=== PATIENT | female | born 1975 | race Caucasian/White ===

== ENCOUNTER 2023-10-26 11:00 | Emergency (ER) | payer BC, SELFPAY ==
[2023-10-26] VITALS (14 sets, daily range): BP systolic 114–136; BP diastolic 69–89; PULSE 77–104; TEMP 36.5; O2SAT 95–99; BMI 20.5
--- NOTE | 2023-10-26 11:32 | ECG_ITS ---
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
--- NOTE | 2023-10-26 11:35 | ED.GENADUL1 ---
HPI HPI - General Adult General Chief complaint: Head Injury Stated complaint: FALL Time Seen by Provider: 10/26/23 11:10 Source: patient Mode of arrival: walk-in Limitations: no limitations History of Present Illness HPI narrative: Patient woke the morning of 10/24/23 in herbed and noted blood on the pillow. When she got the bathroom she saw a laceration to the left side of the face lateral to the left eye. She had pain and swelling in that area as well. She does not know what happened. She has been feeling weak and shaky for the last few days. She is supposed to be taking metformin daily - it was prescribed 2 weeks ago - but she has yet to pick it up from the pharmacy. She apparently has been trying to manage her diabetes by intermittently fasting and has apparently lost almost 100 pounds in the last 65 months just by not eating . She denied any urinary or bowel symptoms. no recent illness. She denied using any alcohol or drugs 10/21 or10/22 - she does not know how she injured her face. She said that a stretch press operator prescribed a pill and a spanish for a fungal infection of the right thumb - she said that is why she did not take the metformin - I didn't want it to interfere with the fungal medication. Related Data Home Medications ?Medication ?Instructions ?Recorded ?Confirmed levothyroxine 50 mcg tablet 75 mcg PO DAILY 10/26/23 10/26/23 Previous Rx's ?Medication ?Instructions ?Recorded metformin 500 mg tablet 500 mg PO BID #60 tabs 10/26/23 Allergies Allergy/AdvReac Type Severity Reaction Status Date / Time No Known Drug Allergies Allergy Verified 10/26/23 11:07 Opioid HPI Opioid Management Most Recent Opioid Data: No Data to Display Exam Narrative Exam Narrative: Nurses note and vital signs reviewed and patient is not hypoxic. afebrile General: The patient appears frail but is in no apparent distress. Patient is resting comfortably on cart. GCS = 15. Skin: Warm, dry, no pallor noted. Head: 1cm curvilinear laceration to the left face lateral to the left eye. there is some associated facial swelling and both soft tissue and bony tenderness from the left lower forehead to the left cheek and left orbit. Remainder of the face and head are normocephalic, atraumatic Neck: Supple, trachea mid-line, no tenderness, no lymphadenopathy. Full ROM and no cervical spinal tenderness or meningitidis. The patient has no step-offs or crepitus noted Eyes: PERRLA, EOMI ENT: TM's clear, no hemotympanum detected, no blood in posterior oropharynx Cardiovascular: Regular Rate and Rhythm Respiratory: Patient is in no distress, no accessory muscle use, lungs are clear to auscultation, no wheezing, rales or rhonchi Chest Wall: no tenderness, no flail chest, contusion, abrasion, or signs of trauma. Back: No thoracic vertebral or lumbar vertebral tenderness to palpation. Negative straight leg raise bilaterally. No ecchymosis, abrasions, lacerations noted. Musculoskeletal: no sign of long bone fracture, no tenderness, no swelling. Pulses at femoral, DP, PT, and popiteal were 2+ bilaterally. Moves all four extremities in all modalities with 5/5 strength. GI: Normal bowel sounds, no tenderness to palpation, no masses appreciated. No rebound, guarding, or rigidity noted. 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 Psychiatric: Cooperative Constitutional Vital Signs, click to edit/add: Last Vital Signs Temp 97.7 F 10/26/23 11:07 Pulse 80 10/26/23 13:20 Resp 17 10/26/23 13:20 BP 119/69 10/26/23 13:20 Pulse Ox 97 10/26/23 12:30 O2 Del Method Room Air 10/26/23 11:07 Course Vital Signs Vital signs: Vital Signs Temperature 97.7 F 10/26/23 11:07 Pulse Rate 104 H 10/26/23 11:07 Respiratory Rate 16 10/26/23 11:07 Blood Pressure 136/89 10/26/23 11:07 Pulse Oximetry 99 10/26/23 11:07 Oxygen Delivery Method Room Air 10/26/23 11:07 Temperature 97.7 F 10/26/23 11:07 Pulse Rate 80 10/26/23 13:20 Respiratory Rate 17 10/26/23 13:20 Blood Pressure 119/69 10/26/23 13:20 Pulse Oximetry 97 10/26/23 12:30 Oxygen Delivery Method Room Air 10/26/23 11:07 Medical Decision Making MDM Narrative Medical decision making narrative: accu check glucose was over 600. Patient was placed on director of cardiac rehabilitation and EKG obtained. Blood drawn and sent for evaluation. The facial laceration is over 48 hours old - too late for suture repair. She was given 2Liters NS IVF while we awaited the results of her testing. Normal CBC. UA with > 1000 glc, 80 ket, otherwise negative. CMP revealed slightly low Na 131,decreased Chloride 91, decreased CO2 20, Normal BUN and Cr. Glucose elevated at 673. Patient has never received SQ insulin so she was given 10units SQ to start. CT head and facial bones did not reveal ICH or facial fracture but she does have a possible carotid mass, so dedicated CT soft tissue neck obtained with IVC to further evaluate. It identified an enlarged thyroid - patient said that she was already aware of that and her PCP had talked to her about scheduling an out-patient US. I gave the patient a copy of her CT ST Neck rad report. Patient and I discussed her elevated glucose, the remainder of her test results, discussed the importance of taking medicine for her diabetes - her prescription for metformin never got filled so I sent a new prescription. Her glucose decreased from 673 to 511 after receiving the 10 units of regular insulin SQ. She received another 15 units of regular insulin SQ before being discharged home. She said that she does not plan to do intermittent fasting in the near future. PCP follow up recommended. ED nurse gave the patient information regarding diabetic diet and care. Lab Data Lab results reviewed: Yes I reviewed the patient's lab results Labs: Lab Results 10/26/23 10/26/23 10/26/23 Range/Units 11:30 11:35 13:23 WBC 5.7 (4.0-11.0) 10^3/uL RBC 4.63 (4.20-5.40) 10^6/uL Hgb 14.0 (12.0-16.0) g/dL Hct 41.8 (36.0-48.0) % MCV 90.3 (81.0-99.0) fL MCH 30.2 (26.7-34.0) pg MCHC 33.5 (29.9-35.2) g/dL RDW 11.9 (11.0-15.0) % Plt Count 254 (150-450) 10^3/uL MPV 10.5 (9.5-13.5) fL Neut % (Auto) 52.1 (43.0-75.0) % Lymph % (Auto) 36.0 (20.5-60.0) % [place] % (Auto) 7.7 (1.7-12.0) % Eos % (Auto) 3.5 (0.9-7.0) % Baso % (Auto) 0.5 (0.2-2.0) % Neut # (Auto) 3.0 (1.4-6.5) 10^3/uL Lymph # (Auto) 2.1 (1.2-3.8) 10^3/uL [place] # (Auto) 0.4 (0.3-0.8) 10^3/uL Eos # (Auto) 0.2 (0.0-0.7) 10^3/uL Baso # (Auto) 0.0 (0.0-0.1) 10^3/uL Abs Immat Gran (auto) 0.01 (0.00-0.03) 10^3/uL Imm/Tot Granulo (auto) 0.2 (0.0-0.5) % Sodium 131 L (136-145) mmol/L Potassium 4.3 (3.5-5.1) mmol/L Chloride 91 L (98-107) mmol/L Carbon Dioxide 20.2 L (21.0-32.0) mmol/L Anion Gap 24.1 BUN 8.0 (7.0-18.0) mg/dL Creatinine 0.73 (0.55-1.02) mg/dL Est GFR ( Amer) >60 (>=60) Est GFR (Non-Af Amer) >60 (>=60) BUN/Creatinine Ratio 11.0 Glucose 673 H* (74-106) mg/dL Lactate 1.0 (0.4-2.0) mmol/L Calcium 9.3 (8.5-10.1) mg/dL Magnesium 1.9 (1.8-2.4) mg/dL Total Bilirubin 0.4 (0.2-1.0) mg/dL AST 10 L (15-37) U/L ALT 10 L (14-59) U/L Alkaline Phosphatase 115 (46-116) U/L Total Protein 6.8 (6.4-8.2) g/dL Albumin 3.0 L (3.4-5.0) g/dL Globulin 3.8 g/dL Albumin/Globulin Ratio 0.8 Urine Color Lt. yellow (YELLOW) Urine Clarity Clear (CLEAR) Urine pH 5.5 (5.0-9.0) Ur Specific [place] 1.010 (1.005-1.025) Urine Protein Negative (NEG/TRACE) mg/dL Urine Glucose (UA) >=1000 A (NEGATIVE) mg/dL Urine Ketones >=80 A (NEGATIVE) mg/dL Urine Occult Blood Negative (NEGATIVE) Urine Nitrite Negative (NEGATIVE) Urine Bilirubin Negative (NEGATIVE) Urine Urobilinogen 0.2 (0.2-1.0) EU/dL Ur Leukocyte Esterase Negative (NEGATIVE) Acetone, Qual Small A (NEGATIVE) POC Glucose 511 H* (74-106) mg/dL Imaging Data ct head, ct facial, ct soft tissue neck: Radiologist's impression: ITS Impressions Facial Bones CT 10/26/23 12:11 IMPRESSION: 1. No acute facial traumatic abnormality. 2. Indeterminate partially visualized soft tissue fullness/possible mass in the right carotid space with extension into the right prevertebral space. Neoplasm or gabby metastasis cannot be excluded. Dedicated CT soft tissue neck with IV contrast is recommended for further characterization. Electronically authenticated by: AUREA XIONG Date: 10/26/2023 12:[address] 10/26/23 12:11 IMPRESSION: No acute intracranial process. Electronically authenticated by: AUREA XIONG Date: 10/26/2023 12:[address] 10/26/23 13:12 IMPRESSION: 1. Markedly enlarged, heterogenous, and multinodular thyroid measures at least 9.6 x 4.5 x 7.8 cm. This corresponds with abnormality seen on CT facial bones earlier today. Thyroid parenchyma extends into the inferior right carotid space and both lobes extend posterior to the larynx into the prevertebral space. The inferior margin of the thyroid extends to the superior margin of the clavicular heads. There is mild narrowing of the right piriform sinus due to mass effect. Nonemergent dedicated thyroid ultrasound is recommended for further characterization. 2. No other extranodal soft tissue mass or abnormal enhancement in the neck. Electronically authenticated by: AUREA XIONG Date: 10/26/2023 13:32 ECG Data Attestation: I personally reviewed and interpreted this ECG as follows: Interpretation: EKG interpretation: Emergency Department physician interpretation. Normal sinus rhythm at 92bpm. Moderate right axis deviation, normal intervals and no ST segment elevation or depression. Discharge Plan Discharge Stand Alone Forms: Portal Instructions Chief Complaint: Head Injury Clinical Impression: Hyperglycemia due to type 2 diabetes mellitus, Laceration of face, Head injury Patient Disposition: Home, Self-Care Time of Disposition Decision: 13:45 Prescriptions / Home Meds: New metformin 500 mg tablet 500 mg PO BID Qty: 60 0RF No Action levothyroxine 50 mcg tablet 75 mcg PO DAILY Print Language: [place]guill[place] Instructions: Type 2 Diabetes in Adults: New Diagnosis (DC), Head Injury (ED), Laceration Without Closure (ED) Referrals: Physician,Non-Staff, MD [Primary Care Provider] - 1 week
[2023-10-26] MEDS: 0.9 % SODIUM CHLORIDE 1,000 ML 999 ML IV (11:43)
[2023-10-26 11:49] LABS: Basophils Percent Auto 0.5 % (0.2-2.0); Eosinophils Absolute Auto 0.2 10^3/uL (0.0-0.7); Eosinophils Percent Auto 3.5 % (0.9-7.0); Hematocrit 41.8 % (36.0-48.0); Immature Granulocytes Abs Auto 0.01 10^3/uL (0.00-0.03); Immature Granulocytes Pct Auto 0.2 % (0.0-0.5); Lymphocytes Absolute Auto 2.1 10^3/uL (1.2-3.8); Mean Corpuscular HGB Conc 33.5 g/dL (29.9-35.2); Mean Corpuscular Hemoglobin 30.2 pg (26.7-34.0); Mean Corpuscular Volume 90.3 fL (81.0-99.0); Mean Platelet Volume 10.5 fL (9.5-13.5); Monocytes Absolute Auto 0.4 10^3/uL (0.3-0.8); Monocytes Percent Auto 7.7 % (1.7-12.0); Neutrophils Percent Auto 52.1 % (43.0-75.0); Platelet Count 254 10^3/uL (150-450); Red Blood Count 4.63 10^6/uL (4.20-5.40); Red Cell Distribution Width 11.9 % (11.0-15.0); White Blood Count 5.7 10^3/uL (4.0-11.0)
[2023-10-26 11:50] LABS: Bilirubin Urine NEGATIVE (NEGATIVE); Blood Urine NEGATIVE (NEGATIVE); Clarity Urine CLEAR (CLEAR); Color Urine LT. YELLOW (YELLOW); Glucose Urine UA >=1000 mg/dL (NEGATIVE); Ketones Urine >=80 mg/dL (NEGATIVE); Leukocyte Esterase Urine NEGATIVE (NEGATIVE); Nitrite Urine NEGATIVE (NEGATIVE); Protein Urine NEGATIVE (NEG/TRACE); Urobilinogen Urine 0.2 EU/dL (0.2-1.0); pH Urine 5.5 (5.0-9.0)
[2023-10-26 12:03] LABS: Urine Microscopic Indicated NO
[2023-10-26 12:07] LABS: Alanine Aminotransferase 10 U/L (14-59); Albumin Globulin Ratio 0.8; Alkaline Phosphatase 115 U/L (46-116); Anion Gap 24.1; Aspartate Amino Transferase 10 U/L (15-37); Bilirubin Total 0.4 mg/dL (0.2-1.0); Calcium 9.3 mg/dL (8.5-10.1); Carbon Dioxide 20.2 mmol/L (21.0-32.0); Chloride 91 mmol/L (98-107); Estimated GFR (African America >60 (>=60); Estimated GFR (Non-African Ame >60 (>=60); Globulin 3.8 g/dL; Magnesium 1.9 mg/dL (1.8-2.4); Potassium 4.3 mmol/L (3.5-5.1); Sodium 131 mmol/L (136-145); Total Protein 6.8 g/dL (6.4-8.2)
[2023-10-26 12:11] LABS: Glucose 673 mg/dL (74-106)
--- NOTE | 2023-10-26 12:11 | CT_ITS ---
[address] [address] Patient Name: JUMA HIRSCH MRN: [id number] date: 1975 Sex: F Assigned Patient Location: ER Current Patient Location: ED[facility] Accession/Order Number: [id number] Exam Date: 10/26/2023 12:02 Report Date: 10/26/2023 12:38 At the request of: RAMIREZ CAMPBELL Procedure: CT head/brain wo con EXAM: CT head/brain wo con CLINICAL INDICATION: fall, head injury COMPARISON: CT head 09/23/2016. TECHNIQUE: Axial CT images of the brain were obtained without contrast. Coronal and sagittal reformats were obtained. Dose reduction techniques were achieved by using automated exposure control and/or adjustment of mA and/or kV according to patient size and/or use of iterative reconstruction technique. FINDINGS: No intracranial hemorrhage, extra-axial fluid collection, hydrocephalus, midline shift, or acute infarction. No other mass effect. Patent basal cisterns. No calvarial fracture. Normal soft tissues. Paranasal sinuses and mastoid air cells are well-aerated. CT/CT head/brain wo con IMPRESSION: No acute intracranial process. Electronically authenticated by: AUREA XIONG Date: 10/26/2023 12:38
--- NOTE | 2023-10-26 12:11 | CT_ITS ---
[address] [address] Patient Name: JUMA HIRSCH MRN: [id number] date: 1975 Sex: F Assigned Patient Location: ER Current Patient Location: ER Accession/Order Number: [id number] Exam Date: 10/26/2023 12:02 Report Date: 10/26/2023 12:44 At the request of: RAMIREZ CAMPBELL Procedure: CT facial bones wo con EXAM: CT facial bones wo con CLINICAL INDICATION: fall, facial injury COMPARISON: None TECHNIQUE: Multiple unenhanced axial CT images were obtained of the facial bones in soft tissue and bone windows. Coronal, axial, and sagittal reformatted images were also provided in soft tissue and bone windows and submitted for interpretation. Dose reduction techniques were achieved by using automated exposure control and/or adjustment of mA and/or kV according to patient size and/or use of iterative reconstruction technique. FINDINGS: Soft Tissues: No soft tissue edema. Indeterminate partially visualized soft tissue fullness/possible mass in the right carotid space with extension into the right prevertebral space (seen on series 4 image 1). Osseous Orbits: No fracture, subluxation, or dislocation. Lamina Papyracea: Intact. Paranasal Sinuses: Mild right maxillary sinus mucosal thickening. Trace additional scattered paranasal sinus mucosal thickening. No air-fluid levels. Nasal Septum: Intact and deviated towards to the left. Nasal Bones: Intact. Maxilla: Intact. Mandible: Intact. Temporal Bones: Intact. Mastoid air cells are well aerated. Middle ear cavities are grossly clear. Temporomandibular Joints: No subluxation or dislocation bilaterally. Globes: Intact. Intraconal Space Contents: Orbital fat and ophthalmic arteries are unremarkable. Extraconal Space Contents: Fat is clean and symmetric. CT/CT facial bones wo con IMPRESSION: 1. No acute facial traumatic abnormality. 2. Indeterminate partially visualized soft tissue fullness/possible mass in the right carotid space with extension into the right prevertebral space. Neoplasm or gabby metastasis cannot be excluded. Dedicated CT soft tissue neck with IV contrast is recommended for further characterization. Electronically authenticated by: AUREA XIONG Date: 10/26/2023 12:44
[2023-10-26] MEDS: INSULIN REGULAR 300 UNITS/3 ML 10 UNIT SUBQ (12:16)
[2023-10-26] MEDS: 0.9 % SODIUM CHLORIDE 1,000 ML 1000 ML IV (12:19)
[2023-10-26 12:28] LABS: Acetone SMALL (NEGATIVE)
--- NOTE | 2023-10-26 13:12 | CT_ITS ---
[address] [address] Patient Name: JUMA HIRSCH MRN: [id number] date: 1975 Sex: F Assigned Patient Location: ER Current Patient Location: Accession/Order Number: [id number] Exam Date: 10/26/2023 13:05 Report Date: 10/26/2023 13:32 At the request of: RAMIREZ CAMPBELL Procedure: CT soft tissue neck w con EXAM: CT soft tissue neck w con CLINICAL INDICATION: right carotid mass COMPARISON: None TECHNIQUE: Standard enhanced CT of the neck following intravenous administration of 100 cc of Omnipaque 300. Axial sections with coronal and sagittal reformats were obtained. Dose reduction techniques were achieved by using automated exposure control and/or adjustment of mA and/or kV according to patient size and/or use of iterative reconstruction technique. FINDINGS: Lymph Nodes/Soft Tissues: No focal fluid collection or fat stranding. No enlarged or morphologically abnormal lymph nodes. Nasopharynx: Normal. Suprahyoid Neck: Oropharynx, oral cavity, parapharyngeal, and retropharyngeal spaces are clear and symmetric. Infrahyoid Neck: Larynx, hypopharynx, and supraglottic area are clear and symmetric. Vocal cords are symmetric. Parotid Glands: Normal. Submandibular Glands: Normal. Thyroid: Markedly enlarged and heterogenous thyroid measures at least 9.6 x 4.5 x 7.8 cm (CC by AP by TV). Thyroid parenchyma extends into the inferior right carotid space and both lobes extend posterior to the larynx into the prevertebral space. There are several ill-defined nodules with the largest measuring approximately 1.8 cm in the inferior left thyroid lobe. The inferior margin of the thyroid extends to the superior margin of the clavicular heads. Airway: Mass effect with narrowing of the right piriform sinus. Trachea is patent without stenosis. Orbits: Normal. Paranasal Sinuses: Mild right maxillary sinus mucosal thickening. Trace additional scattered paranasal sinus mucosal thickening. Mastoid Air Cells: Well-aerated. Skull Base: Normal. Thoracic Inlet: Visualized lung apices are clear. Vascular Structures: Symmetric and patent. Musculoskeletal: No acute osseous abnormality. Mild multilevel cervicothoracic spondylotic changes. CT/CT soft tissue neck w con IMPRESSION: 1. Markedly enlarged, heterogenous, and multinodular thyroid measures at least 9.6 x 4.5 x 7.8 cm. This corresponds with abnormality seen on CT facial bones earlier today. Thyroid parenchyma extends into the inferior right carotid space and both lobes extend posterior to the larynx into the prevertebral space. The inferior margin of the thyroid extends to the superior margin of the clavicular heads. There is mild narrowing of the right piriform sinus due to mass effect. Nonemergent dedicated thyroid ultrasound is recommended for further characterization. 2. No other extranodal soft tissue mass or abnormal enhancement in the neck. Electronically authenticated by: AUREA XIONG Date: 10/26/2023 13:32
[2023-10-26 13:24] LABS: Glucometer 511 mg/dL (74-106)
[2023-10-26] MEDS: INSULIN REGULAR 300 UNITS/3 ML 15 UNIT SUBQ (13:36)
== END 2023-10-26 14:19 | disposition home or self-care (01) ==
PROVIDERS: Emergency Provider Emergency Medicine
DX: E11.65 Type 2 diabetes mellitus with hyperglycemia (principal); S01.81XA Laceration without foreign body of other part of head, initial encounter; S09.90XA Unspecified injury of head, initial encounter; Z79.890 Hormone replacement therapy
CPT/HCPCS: 36415; 36416; 70450; 70486; 70491; 80053; 81003; 82009; 82948; 83605; 83735; 85025; 93005; 96360; 96361; 99285; Q9967

== ENCOUNTER 2024-10-09 19:19 | Observation (INO) | payer SELFPAY ==
[2024-10-09] VITALS (22 sets, daily range): BP systolic 99–132; BP diastolic 69–81; PULSE 75–107; TEMP 36.1; O2SAT 95–100; BMI 15.2
--- NOTE | 2024-10-09 19:54 | ECG_ITS ---
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 Measurements Intervals [place] Rate: 79 P: 81 [place]: 150 QRS: 90 QRSD: 92 T: 78 QT: 426 QTc: 461 Interpretive Statements 1100 Sinus rhythm 8304 Long QTc interval 9150 abnormal ECG Compared to ECG 10/26/2023 11:50:16 Right-axis deviation no longer present Electronically Signed On 10-10-2024 19:56:47 EDT by JAX VILLAVICENCIO M.D.
--- NOTE | 2024-10-09 19:59 | ED.GENADUL1 ---
Documented by User: MANJU Lemons 10/09/24 21:45 HPI HPI - General Adult General Chief complaint: Weakness Stated complaint: FALL Time Seen by Provider: 10/09/24 19:22 Source: patient Mode of arrival: walk-in History of Present Illness HPI narrative: Patient is a 49 year old female who presents to the emergency department for a variety of medical complaints this evening. She states that her primary concern is that she is very unsteady and shaky on her feet and has had falls over the last 3-4 weeks. She further complains of brain fog, confusion intermittently and loss of appetite. She denies any injury from falling and denies pain at this time. She has a history of diabetes and states she does not take any medications for her diabetes, she takes no prescription meds and does not have a doctor as she has no insurance. She denies fever, URI symptoms, chest pain or shortness of breath. She has been losing weight for over a year. She states she used to do extreme fasting to manage her diabetes but stopped over a year ago. She reports loss of appetite, although she is able to take fluids well and drinks electrolyte replacements like Powerade. She reports ongoing urinary incontinence. She has no abdominal pain, vomiting or diarrhea. Records from one year ago show the patient was sent for imaging of the neck due to an incidental find, she had a thyroid mass noted on imaging at that time, she has not followed up. Related Data Allergies Allergy/AdvReac Type Severity Reaction Status Date / Time No Known Drug Allergies Allergy Verified 10/09/24 19:33 Opioid HPI Opioid Management Most Recent Opioid Data: Ur Phencyclidine Scrn Negative (NEGATIVE) 10/09/24 20:02 10/09/24 PFSH PFSH Social History Little interest or pleasure in doing things: not at all Feeling down, depressed, or hopeless: not at all Exam Constitutional Vital Signs, click to edit/add: Last Vital Signs Temp 96.9 F L 10/09/24 19:24 Pulse 84 10/09/24 21:51 Resp 19 10/09/24 21:51 BP 108/79 10/09/24 21:51 Pulse Ox 100 10/09/24 21:51 O2 Del Method Room Air 10/09/24 19:24 Course Vital Signs Vital signs: Vital Signs Temperature 96.9 F L 10/09/24 19:24 Pulse Rate 91 H 10/09/24 19:24 Respiratory Rate 14 10/09/24 19:24 Pulse Oximetry 100 10/09/24 19:24 Oxygen Delivery Method Room Air 10/09/24 19:24 Temperature 96.9 F L 10/09/24 19:24 Pulse Rate 84 10/09/24 21:51 Respiratory Rate 19 10/09/24 21:51 Blood Pressure 108/79 10/09/24 21:51 Pulse Oximetry 100 10/09/24 21:51 Oxygen Delivery Method Room Air 10/09/24 19:24 Medical Decision Making MDM Narrative Medical decision making narrative: On arrival, patient had surveillance monitor, EKG and IV established. Labs, urine and drug testing were ordered. Patient has evidence of DKA with moderate acetone, ketones and glucose in urine and glucose 524. She was given 1L NS bolus and was also ordered to have an insulin drip at 0.05units/kg/hr. She is hemodynamically stable at this time. She was sent for CTs of head, neck, chest/abdomen and pelvis. While awaiting CT imaging, the patient stepped outside of the ER to have a cigarette, she did not ask permission and was made aware of hospital policy. A nicotine patch was ordered. 2144: Initiation of insulin drip and CT images are pending at this time. Anticipate admission on an insulin drip for DKA. Case is turned over to attending physician for reevaluation and disposition at this time. SHARED APC VISIT, PHYSICIAN ATTESTATION: [id number] I performed a substantive part of the MDM during the patient?s E/M visit. I personally evaluated and examined the patient. I personally made or approved the documented management plan and acknowledge its risk of complications. Medical Records Medical records reviewed: Yes I reviewed the patient's medical records Lab Data Lab results reviewed: Yes I reviewed the patient's lab results Labs: Lab Results 10/09/24 10/09/24 Range/Units 20:02 20:10 WBC 4.5 (4.0-11.0) 10^3/uL RBC 4.01 L (4.20-5.40) 10^6/uL Hgb 13.5 (12.0-16.0) g/dL Hct 37.9 (36.0-48.0) % MCV 94.5 (81.0-99.0) fL MCH 33.7 (26.7-34.0) pg MCHC 35.6 H (29.9-35.2) g/dL RDW 11.9 (11.0-15.0) % Plt Count 197 (150-450) 10^3/uL MPV 10.2 (9.5-13.5) fL Neut % (Auto) 61.4 (43.0-75.0) % Lymph % (Auto) 28.2 (20.5-60.0) % [place] % (Auto) 6.4 (1.7-12.0) % Eos % (Auto) 0.9 (0.9-7.0) % Baso % (Auto) 0.9 (0.2-2.0) % Neut # (Auto) 2.8 (1.4-6.5) 10^3/uL Lymph # (Auto) 1.3 (1.2-3.8) 10^3/uL [place] # (Auto) 0.3 (0.3-0.8) 10^3/uL Eos # (Auto) 0.0 (0.0-0.7) 10^3/uL Baso # (Auto) 0.0 (0.0-0.1) 10^3/uL Abs Immat Gran (auto) 0.10 H (0.00-0.03) 10^3/uL Imm/Tot Granulo (auto) 2.2 H (0.0-0.5) % PT 9.3 (9.0-11.6) sec INR <0.93 VBG pH 7.291 L (7.330-7.430) VBG pCO2 23.1 L (40.0-52.0) mmHg Sodium 126 L (136-145) mmol/L Potassium 3.5 (3.5-5.1) mmol/L Chloride 92 L (98-107) mmol/L Carbon Dioxide 10.7 L (21.0-32.0) mmol/L Anion Gap 26.8 BUN 9.0 (7.0-18.0) mg/dL Creatinine 0.68 (0.55-1.02) mg/dL Est GFR ( Amer) >60 (>=60 mL/min/1.73m^2) Est GFR (Non-Af Amer) >60 (>=60 mL/min/1.73m^2) BUN/Creatinine Ratio 13.2 Glucose 524 H* (74-106) mg/dL Lactate <0.3 L (0.4-2.0) mmol/L Calcium 8.6 (8.5-10.1) mg/dL Magnesium 1.9 (1.8-2.4) mg/dL Total Bilirubin 0.6 (0.2-1.0) mg/dL AST 8 L (15-37) U/L ALT 21 (14-59) U/L Alkaline Phosphatase 185 H (46-116) U/L Troponin I High Sens 5.9 (4.0-51.3) pg/mL NT-Pro-B Natriuret Pep 71.0 (<=900.0) pg/mL Total Protein 6.6 (6.4-8.2) g/dL Albumin 3.3 L (3.4-5.0) g/dL Globulin 3.3 g/dL Albumin/Globulin Ratio 1.0 TSH 3.556 (0.358-3.740) uIU/mL Urine Color Lt. yellow (YELLOW) Urine Clarity Clear (CLEAR) Urine pH 6.0 (5.0-9.0) Ur Specific [place] 1.020 (1.005-1.025) Urine Protein Negative (NEG/TRACE) mg/dL Urine Glucose (UA) >=1000 A (NEGATIVE) mg/dL Urine Ketones >=80 A (NEGATIVE) mg/dL Urine Occult Blood Negative (NEGATIVE) Urine Nitrite Negative (NEGATIVE) Urine Bilirubin Negative (NEGATIVE) Urine Urobilinogen 0.2 (0.2-1.0) EU/dL Ur Leukocyte Esterase Negative (NEGATIVE) Urine RBC None seen (0-2) #/HPF Urine WBC 0-2 A (NONE SEEN) #/HPF Ur Squamous Epith Cells Rare (NONE/RARE) #/LPF Urine Crystals None seen (None Seen) #/HPF Urine Bacteria None seen (NONE SEEN) #/HPF Urine Casts None seen (NONE SEEN) #/LPF Urine Mucus None seen (NONE SEEN) Urine Trichomonas Seen A (NONE SEEN) Ur Culture Indicated? No Urine Opiates Screen Negative (NEGATIVE) Ur Buprenorphine Scrn Negative (NEGATIVE) Ur Oxycodone Screen Negative (NEGATIVE) Urine Methadone Screen Negative (NEGATIVE) Ur Barbiturates Screen Negative (NEGATIVE) U Tricyclic Antidepress Negative (NEGATIVE) Ur Phencyclidine Scrn Negative (NEGATIVE) Ur Amphetamines Screen Negative (NEGATIVE) U Methamphetamines Scrn Negative (NEGATIVE) U Benzodiazepines Scrn Negative (NEGATIVE) Urine Cocaine Screen Negative (NEGATIVE) U Cannabinoids Screen Negative (NEGATIVE) Ethanol Quant <3 mg/dL Acetone, Qual Moderate A (NEGATIVE) Imaging Data CT scan - head: Attestation: I have reviewed the pertinent imaging results. Radiologist's impression: CT head, soft tissue neck, chest/abd/pelvis ECG Data Attestation: I personally reviewed and interpreted this ECG as follows: (Normal sinus rhythm at a rate of 79, no acute ST elevation or ectopy. EKG reviewed by attending physician) Discharge Plan Discharge Chief Complaint: Weakness Clinical Impression: DKA (diabetic ketoacidosis), Acute hyperglycemia, Unsteady gait, Thyroid goiter Patient Disposition: Admitted as Observation Documented by User: Mitchel Pimentel MD 10/09/24 22:52 HPI HPI - General Adult General Chief complaint: Weakness Stated complaint: FALL Time Seen by Provider: 10/09/24 19:22 History of Present Illness HPI narrative: Patient is a 49 year old female who presents to the emergency department for a variety of medical complaints this evening. She states that her primary concern is that she is very unsteady and shaky on her feet and has had falls over the last 3-4 weeks. She further complains of brain fog, confusion intermittently and loss of appetite. She denies any injury from falling and denies pain at this time. She has a history of diabetes and states she does not take any medications for her diabetes, she takes no prescription meds and does not have a doctor as she has no insurance. She denies fever, URI symptoms, chest pain or shortness of breath. She has been losing weight for over a year. She states she used to do extreme fasting to manage her diabetes but stopped over a year ago. She reports loss of appetite, although she is able to take fluids well and drinks electrolyte replacements like Powerade. She reports ongoing urinary incontinence. She has no abdominal pain, vomiting or diarrhea. Records from one year ago show the patient was sent for imaging of the neck due to an incidental find, she had a thyroid mass noted on imaging at that time, she has not followed up. CT studies returned and patient found to have a thyroid goiter. Discussed with the hospitalist and patient admitted to the ICU on insulin drip Related Data Allergies Allergy/AdvReac Type Severity Reaction Status Date / Time No Known Drug Allergies Allergy Verified 10/09/24 19:33 Opioid HPI Opioid Management Most Recent Opioid Data: Ur Phencyclidine Scrn Negative (NEGATIVE) 10/09/24 20:02 10/09/24 PFSH PFSH Social History Little interest or pleasure in doing things: not at all Feeling down, depressed, or hopeless: not at all Exam Constitutional Vital Signs, click to edit/add: Last Vital Signs Temp 96.9 F L 10/09/24 19:24 Pulse 84 10/09/24 21:51 Resp 19 10/09/24 21:51 BP 108/79 10/09/24 21:51 Pulse Ox 100 10/09/24 21:51 O2 Del Method Room Air 10/09/24 19:24 Course Vital Signs Vital signs: Vital Signs Temperature 96.9 F L 10/09/24 19:24 Pulse Rate 91 H 10/09/24 19:24 Respiratory Rate 14 10/09/24 19:24 Pulse Oximetry 100 10/09/24 19:24 Oxygen Delivery Method Room Air 10/09/24 19:24 Temperature 96.9 F L 10/09/24 19:24 Pulse Rate 84 10/09/24 21:51 Respiratory Rate 19 10/09/24 21:51 Blood Pressure 108/79 10/09/24 21:51 Pulse Oximetry 100 10/09/24 21:51 Oxygen Delivery Method Room Air 10/09/24 19:24 Medical Decision Making Lab Data Labs: Lab Results 10/09/24 10/09/24 Range/Units 20:02 20:10 WBC 4.5 (4.0-11.0) 10^3/uL RBC 4.01 L (4.20-5.40) 10^6/uL Hgb 13.5 (12.0-16.0) g/dL Hct 37.9 (36.0-48.0) % MCV 94.5 (81.0-99.0) fL MCH 33.7 (26.7-34.0) pg MCHC 35.6 H (29.9-35.2) g/dL RDW 11.9 (11.0-15.0) % Plt Count 197 (150-450) 10^3/uL MPV 10.2 (9.5-13.5) fL Neut % (Auto) 61.4 (43.0-75.0) % Lymph % (Auto) 28.2 (20.5-60.0) % [place] % (Auto) 6.4 (1.7-12.0) % Eos % (Auto) 0.9 (0.9-7.0) % Baso % (Auto) 0.9 (0.2-2.0) % Neut # (Auto) 2.8 (1.4-6.5) 10^3/uL Lymph # (Auto) 1.3 (1.2-3.8) 10^3/uL [place] # (Auto) 0.3 (0.3-0.8) 10^3/uL Eos # (Auto) 0.0 (0.0-0.7) 10^3/uL Baso # (Auto) 0.0 (0.0-0.1) 10^3/uL Abs Immat Gran (auto) 0.10 H (0.00-0.03) 10^3/uL Imm/Tot Granulo (auto) 2.2 H (0.0-0.5) % PT 9.3 (9.0-11.6) sec INR <0.93 VBG pH 7.291 L (7.330-7.430) VBG pCO2 23.1 L (40.0-52.0) mmHg Sodium 126 L (136-145) mmol/L Potassium 3.5 (3.5-5.1) mmol/L Chloride 92 L (98-107) mmol/L Carbon Dioxide 10.7 L (21.0-32.0) mmol/L Anion Gap 26.8 BUN 9.0 (7.0-18.0) mg/dL Creatinine 0.68 (0.55-1.02) mg/dL Est GFR ( Amer) >60 (>=60 mL/min/1.73m^2) Est GFR (Non-Af Amer) >60 (>=60 mL/min/1.73m^2) BUN/Creatinine Ratio 13.2 Glucose 524 H* (74-106) mg/dL Lactate <0.3 L (0.4-2.0) mmol/L Calcium 8.6 (8.5-10.1) mg/dL Magnesium 1.9 (1.8-2.4) mg/dL Total Bilirubin 0.6 (0.2-1.0) mg/dL AST 8 L (15-37) U/L ALT 21 (14-59) U/L Alkaline Phosphatase 185 H (46-116) U/L Troponin I High Sens 5.9 (4.0-51.3) pg/mL NT-Pro-B Natriuret Pep 71.0 (<=900.0) pg/mL Total Protein 6.6 (6.4-8.2) g/dL Albumin 3.3 L (3.4-5.0) g/dL Globulin 3.3 g/dL Albumin/Globulin Ratio 1.0 TSH 3.556 (0.358-3.740) uIU/mL Urine Color Lt. yellow (YELLOW) Urine Clarity Clear (CLEAR) Urine pH 6.0 (5.0-9.0) Ur Specific [place] 1.020 (1.005-1.025) Urine Protein Negative (NEG/TRACE) mg/dL Urine Glucose (UA) >=1000 A (NEGATIVE) mg/dL Urine Ketones >=80 A (NEGATIVE) mg/dL Urine Occult Blood Negative (NEGATIVE) Urine Nitrite Negative (NEGATIVE) Urine Bilirubin Negative (NEGATIVE) Urine Urobilinogen 0.2 (0.2-1.0) EU/dL Ur Leukocyte Esterase Negative (NEGATIVE) Urine RBC None seen (0-2) #/HPF Urine WBC 0-2 A (NONE SEEN) #/HPF Ur Squamous Epith Cells Rare (NONE/RARE) #/LPF Urine Crystals None seen (None Seen) #/HPF Urine Bacteria None seen (NONE SEEN) #/HPF Urine Casts None seen (NONE SEEN) #/LPF Urine Mucus None seen (NONE SEEN) Urine Trichomonas Seen A (NONE SEEN) Ur Culture Indicated? No Urine Opiates Screen Negative (NEGATIVE) Ur Buprenorphine Scrn Negative (NEGATIVE) Ur Oxycodone Screen Negative (NEGATIVE) Urine Methadone Screen Negative (NEGATIVE) Ur Barbiturates Screen Negative (NEGATIVE) U Tricyclic Antidepress Negative (NEGATIVE) Ur Phencyclidine Scrn Negative (NEGATIVE) Ur Amphetamines Screen Negative (NEGATIVE) U Methamphetamines Scrn Negative (NEGATIVE) U Benzodiazepines Scrn Negative (NEGATIVE) Urine Cocaine Screen Negative (NEGATIVE) U Cannabinoids Screen Negative (NEGATIVE) Ethanol Quant <3 mg/dL Acetone, Qual Moderate A (NEGATIVE) Discharge Plan Discharge Chief Complaint: Weakness Clinical Impression: DKA (diabetic ketoacidosis), Acute hyperglycemia, Unsteady gait, Thyroid goiter Patient Disposition: Admitted as Observation
[2024-10-09 20:12] LABS: Bilirubin Urine NEGATIVE (NEGATIVE); Blood Urine NEGATIVE (NEGATIVE); Clarity Urine CLEAR (CLEAR); Color Urine LT. YELLOW (YELLOW); Glucose Urine UA >=1000 mg/dL (NEGATIVE); Ketones Urine >=80 mg/dL (NEGATIVE); Leukocyte Esterase Urine NEGATIVE (NEGATIVE); Nitrite Urine NEGATIVE (NEGATIVE); Protein Urine NEGATIVE (NEG/TRACE); Urobilinogen Urine 0.2 EU/dL (0.2-1.0)
[2024-10-09 20:16] LABS: Basophils Percent Auto 0.9 % (0.2-2.0); Eosinophils Percent Auto 0.9 % (0.9-7.0); Hematocrit 37.9 % (36.0-48.0); Hemoglobin 13.5 g/dL (12.0-16.0); Immature Granulocytes Pct Auto 2.2 % (0.0-0.5); Lymphocytes Absolute Auto 1.3 10^3/uL (1.2-3.8); Lymphocytes Percent Auto 28.2 % (20.5-60.0); Mean Corpuscular HGB Conc 35.6 g/dL (29.9-35.2); Mean Corpuscular Hemoglobin 33.7 pg (26.7-34.0); Mean Corpuscular Volume 94.5 fL (81.0-99.0); Mean Platelet Volume 10.2 fL (9.5-13.5); Monocytes Absolute Auto 0.3 10^3/uL (0.3-0.8); Monocytes Percent Auto 6.4 % (1.7-12.0); Neutrophils Absolute Auto 2.8 10^3/uL (1.4-6.5); Neutrophils Percent Auto 61.4 % (43.0-75.0); PCO2 VBG 23.1 mmHg (40.0-52.0); Platelet Count 197 10^3/uL (150-450); Red Blood Count 4.01 10^6/uL (4.20-5.40); Red Cell Distribution Width 11.9 % (11.0-15.0); White Blood Count 4.5 10^3/uL (4.0-11.0); pH VBG 7.291 (7.330-7.430)
[2024-10-09 20:22] LABS: Bacteria Urine NONE SEEN #/HPF (NONE SEEN); Cast Seen? NONE SEEN #/LPF (NONE SEEN); Crystals Seen? None Seen #/HPF (None Seen); Mucus Urine NONE SEEN (NONE SEEN); RBC Urine NONE SEEN #/HPF (0-2); Squamous Epithelial Cell Urine RARE #/LPF (NONE/RARE); Trichomonas Urine SEEN (NONE SEEN); Urine Culture Indicated NO; WBC Urine 0-2 #/HPF (NONE SEEN)
[2024-10-09 20:30] LABS: Acetone MODERATE (NEGATIVE)
[2024-10-09 20:39] LABS: Prothrombin Time 9.3 sec (9.0-11.6)
[2024-10-09 20:42] LABS: Amphetamine Screen Urine NEGATIVE (NEGATIVE); Barbiturates Screen Urine NEGATIVE (NEGATIVE); Benzodiazepines Screen Urine NEGATIVE (NEGATIVE); Buprenorphine Screen Urine NEGATIVE (NEGATIVE); Cannabinoid Screen Urine NEGATIVE (NEGATIVE); Cocaine Screen Urine NEGATIVE (NEGATIVE); Methadone Screen Urine NEGATIVE (NEGATIVE); Methamphetamines Screen Urine NEGATIVE (NEGATIVE); Opiate Screen Urine NEGATIVE (NEGATIVE); Oxycodone Screen Urine NEGATIVE (NEGATIVE); Phencyclidine Screen Urine NEGATIVE (NEGATIVE); Tricyclic Antidepressant Urine NEGATIVE (NEGATIVE)
[2024-10-09 20:44] LABS: INR <0.93
[2024-10-09 20:48] LABS: Lactate/Lactic Acid <0.3 mmol/L (0.4-2.0)
[2024-10-09 20:50] LABS: Alanine Aminotransferase 21 U/L (14-59); Albumin Level 3.3 g/dL (3.4-5.0); Alkaline Phosphatase 185 U/L (46-116); Anion Gap 26.8; Aspartate Amino Transferase 8 U/L (15-37); BUN Creatinine Ratio 13.2; Bilirubin Total 0.6 mg/dL (0.2-1.0); Calcium 8.6 mg/dL (8.5-10.1); Carbon Dioxide 10.7 mmol/L (21.0-32.0); Chloride 92 mmol/L (98-107); Estimated GFR (African America >60 (>=60 mL/min/1.73m^2); Estimated GFR (Non-African Ame >60 (>=60 mL/min/1.73m^2); Ethanol <3 mg/dL; Globulin 3.3 g/dL; Magnesium 1.9 mg/dL (1.8-2.4); Potassium 3.5 mmol/L (3.5-5.1); Sodium 126 mmol/L (136-145); Thyroid Stimulating Hormone 3.556 uIU/mL (0.358-3.740); Total Protein 6.6 g/dL (6.4-8.2); Troponin I High Sensitivity 5.9 pg/mL (4.0-51.3)
[2024-10-09 20:52] LABS: Glucose 524 mg/dL (74-106)
[2024-10-09] MEDS: INSULIN REGULAR IN 0.9 % NACL 100 UNIT/100 ML PLAST..BAG IV (21:46)
[2024-10-09] MEDS: 0.9 % SODIUM CHLORIDE 1,000 ML 1000 ML IV (21:46)
[2024-10-09 22:51] LABS: Glucometer 367 mg/dL (74-106)
[2024-10-09 23:53] LABS: Glucometer 335 mg/dL (74-106)
[2024-10-10] VITALS (57 sets, daily range): BP systolic 93–106; BP diastolic 54–72; PULSE 76–146; TEMP 36.3–36.8; O2SAT 94–99; BMI 17.7
[2024-10-10 01:00] LABS: Glucometer 368 mg/dL (74-106)
[2024-10-10] MEDS: LACTATED RINGER'S SOLUTION 1,000 ML 250 ML IV ×3 (01:00→07:57)
[2024-10-10] MEDS: FAMOTIDINE/PF 20 MG/2 ML VIAL IV ×3 (01:01→21:07)
[2024-10-10 02:08] LABS: Glucometer 311 mg/dL (74-106)
[2024-10-10 03:09] LABS: Glucometer 326 mg/dL (74-106)
[2024-10-10 04:10] LABS: Glucometer 276 mg/dL (74-106)
[2024-10-10 05:10] LABS: Glucometer 273 mg/dL (74-106)
[2024-10-10] MEDS: NICOTINE 21 MG PATCH.TD24 TD (05:38)
[2024-10-10 05:41] LABS: Basophils Percent Auto 0.9 % (0.2-2.0); Eosinophils Absolute Auto 0.1 10^3/uL (0.0-0.7); Eosinophils Percent Auto 1.9 % (0.9-7.0); Hematocrit 35.6 % (36.0-48.0); Hemoglobin 12.5 g/dL (12.0-16.0); Immature Granulocytes Abs Auto 0.07 10^3/uL (0.00-0.03); Immature Granulocytes Pct Auto 1.6 % (0.0-0.5); Lymphocytes Absolute Auto 1.6 10^3/uL (1.2-3.8); Lymphocytes Percent Auto 37.4 % (20.5-60.0); Mean Corpuscular HGB Conc 35.1 g/dL (29.9-35.2); Mean Corpuscular Hemoglobin 32.9 pg (26.7-34.0); Mean Corpuscular Volume 93.7 fL (81.0-99.0); Mean Platelet Volume 10.2 fL (9.5-13.5); Monocytes Absolute Auto 0.4 10^3/uL (0.3-0.8); Monocytes Percent Auto 8.2 % (1.7-12.0); Neutrophils Absolute Auto 2.1 10^3/uL (1.4-6.5); Platelet Count 180 10^3/uL (150-450); White Blood Count 4.3 10^3/uL (4.0-11.0)
[2024-10-10 05:52] LABS: Magnesium 1.7 mg/dL (1.8-2.4)
[2024-10-10 05:54] LABS: Anion Gap 9.2; BUN Creatinine Ratio 13.5; Calcium 8.6 mg/dL (8.5-10.1); Carbon Dioxide 25.6 mmol/L (21.0-32.0); Chloride 104 mmol/L (98-107); Estimated GFR (African America >60 (>=60 mL/min/1.73m^2); Estimated GFR (Non-African Ame >60 (>=60 mL/min/1.73m^2); Glucose 262 mg/dL (74-106); Magnesium 1.7 mg/dL (1.8-2.4); Phosphorus 2.9 mg/dL (2.6-4.7); Sodium 136 mmol/L (136-145)
[2024-10-10 06:00] LABS: Estimated Average Glucose 344 mg/dL; Glycohemoglobin A1C 13.6 % (4.5-6.2)
[2024-10-10 06:06] LABS: Glucometer 250 mg/dL (74-106)
[2024-10-10 06:18] LABS: Potassium 2.8 mmol/L (3.5-5.1)
[2024-10-10 07:15] LABS: Glucometer 191 mg/dL (74-106)
[2024-10-10] MEDS: POTASSIUM CHLORIDE 40 MEQ in 0.9 % SODIUM CHLORIDE 250 ML 67.5 MEQ IV (07:57)
[2024-10-10] MEDS: INSULIN ASPART 300 UNIT/3 ML PEN SUBQ ×4 (07:57→21:08)
[2024-10-10] MEDS: INSULIN GLARGINE 300 UNIT/3 ML INSULN.PEN 10 UNIT SQ (08:06)
[2024-10-10] MEDS: ENOXAPARIN SODIUM 40 MG/0.4 ML SYRINGE SUBQ (08:07)
--- NOTE | 2024-10-10 08:13 | PM.HP ---
HPI H&P: HPI History of Present Illness Chief complaint: DKA, ACUTE HYPERGLYCEMIA, THYROID GOITER Narrative: Patient is a 49 y.o white female with past history of non insulin dependent type 2 diabetes (was previously on metformin?), and multinodular goiter (was previously taking levothyroxine). Per review of an ER visit from 1 year ago patient admitted to losing >100 pounds at that time and was also then, not taking medication or following up with any physician for her care. Noted on Ct scan from 10/26/23: Markedly enlarged, heterogenous, and multinodular thyroid measures at least 9.6 x 4.5 x 7.8 cm. This corresponds with abnormality seen on CT facial bones earlier today. Thyroid parenchyma extends into the inferior right carotid space and both lobes extend posterior to the larynx into the prevertebral space. The inferior margin of the thyroid extends to the superior margin of the clavicular heads. There is mild narrowing of the right piriform sinus due to mass effect. Patient presented to the ER last night with unsteady and shaky on her feet and has had falls over the last 3-4 weeks. She further complains of brain fog, confusion intermittently and loss of appetite. She denies any injury from falling and denies pain at this time. She has a history of diabetes and states she does not take any medications for her diabetes, she takes no prescription meds and does not have a doctor as she has no insurance. She was working at [employer] and most recently [employer]. She denies fever, URI symptoms, chest pain or shortness of breath. She has been losing weight for over a year. She states she used to do extreme fasting to manage her diabetes. She reports loss of appetite, although she is able to take fluids well and drinks electrolyte replacements like Powerade. She reports ongoing urinary incontinence. She has no abdominal pain, vomiting or diarrhea. Last menstrual period was 8 months ago. She admits to night sweats every night. ER findings: Urine positive for Trichomonas, Ketones; Blood positive for Ketones, Anion Gap 26, glucose 673, K 3.5, WBC's 4.3, hb 12.5, Mag 1.7. Patient admitted for Acute DKA and placed on insulin drip. CT scans of the head, abd/pelvis, chest and soft tissue neck reviewed and not abnormal findings noted except for prominent thyroid goiter. Anion Gap down to 9.2 this morning, K 2.8, ha1c 13.6, Glucose 296, drip was stopped and placed on Lantus 10units BID along with SSI. She is on full liquid diet and advance as tolerated. Opioid HPI Opioid Management Most Recent Pain and Opioid Data: Last Pain Assessment 10/10/24 11:00 Last ORT Total Score 1 10/10/24 01:14 10/10/24 Last ORT Risk Category Low Risk 10/10/24 01:14 10/10/24 Ur Phencyclidine Scrn Negative (NEGATIVE) 10/09/24 20:02 10/09/24 Review of Systems ROS Narrative ROS: a complete review of systems were reviewed with patient and are positive as below or listed in History of Chief Complaint. General: no fever, chills, but having night sweats and weight loss Head: no headache, trauma, visual changes, nausea or vomiting, lack of appetite Skin: no reported rashes, itching or sores Eyes: no blurriness of vision Ears: no reported hearing loss, vertigo, earache, or tinnitus Throat: no sore throat, hoarseness, swelling of neck, or tongue pain Heart: no chest pain Lungs: no shortness of breath or cough GI: no diarrhea or vomiting/nausea, lack of appetite Urinary: urinary urgency, frequency no pain, and incontinence Neuro: no numbness or tingling HEM: no bleeding issues or bruising ENDO: thyroid problems Psych: no anxiety or depression [facility] Medical History (Updated 10/10/24 @ 11:29 by Delilah Gonzalez DO) Twin delivery by ?O30.009 - Twin , unspecified number of placenta and unspecified number of amniotic sacs, unspecified trimester (ICD-10) delivery delivered ?O82 - Encounter for delivery without indication (ICD-10) Smoker ?F17.200 - Nicotine dependence, unspecified, uncomplicated (ICD-10) Weight loss, unintentional ?R63.4 - Abnormal weight loss (ICD-10) Sjogren syndrome ?M35.00 - Sjogren syndrome, unspecified (ICD-10) Diabetes ?E11.9 - Type 2 diabetes mellitus without complications (ICD-10) Family History Mother Family history of diabetes mellitus Family history of myocardial infarction Family history of stroke Unknown Family history of hypertension Social History Within the past year, how often did you have a drink containing alcohol: monthly or less Smoking status: Light tobacco smoker Non-prescribed substance use: denies use Previous occupational history: [employer] Known occupational exposures/hazards: No Highest level of school completed/degree received: high school graduate Are you now , , , , never or living with a partner: Little interest or pleasure in doing things: not at all Feeling down, depressed, or hopeless: not at all Do you think of yourself as: straight/heterosexual Gender Identity: female Meds Home Medications and Allergies Allergies Allergy/AdvReac Type Severity Reaction Status Date / Time No Known Drug Allergies Allergy Verified 10/09/24 19:33 Exam Narrative Exam Narrative: General: Patient is alert, and oriented to person, place and time, severe cachexia with hair thinning and dry skin Skin: no visible rashes, or ulcers Head: atraumatic, acephalic Eyes: PERRLA, no nystagmus present, conjunctiva clear, no scleral icterus Ears: normal gross auditory acuity Nose: symmetric, no discharge, no maxillary or frontal sinus tenderness Mouth/Throat: no erythema, exudate, or tonsillar enlargement, normal dentition Neck: enlarged thyroid, no JVD or audible carotid bruits Heart: Normal rate and rhythm, no murmurs/rubs/gallops Lungs: no audible wheezes, crackles and normal breath sounds all lung rodriguez Abdomen: Normal audible bowel sounds, no distension, No palpable masses, no organomegaly, no rebound/guarding/ or rigidity Musculoskeletal: severe muscle atrophy noted, no swelling bilateral lower extremities Neuro: CN II-X grossly intact Constitutional Vital Signs, click to edit/add: Last Vital Signs Temp 97.8 F 10/10/24 07:30 Pulse 94 H 10/10/24 07:20 Resp 15 10/10/24 07:20 BP 103/65 10/10/24 07:11 Pulse Ox 99 10/10/24 07:11 O2 Del Method Room Air 10/10/24 07:30 Results Labs Labs: Short CBC 10/09/24 10/10/24 Range/Units 20:10 05:26 WBC 4.5 4.3 (4.0-11.0) 10^3/uL Hgb 13.5 12.5 (12.0-16.0) g/dL Hct 37.9 35.6 L (36.0-48.0) % Plt Count 197 180 (150-450) 10^3/uL BMP 10/09/24 10/10/24 20:10 05:26 Sodium 126 L 136 Potassium 3.5 2.8 L* Chloride 92 L 104 Carbon Dioxide 10.7 L 25.6 BUN 9.0 7.0 Creatinine 0.68 0.52 L Glucose 524 H* 262 H Calcium 8.6 8.6 Liver Function 10/09/24 Range/Units 20:10 Total Bilirubin 0.6 (0.2-1.0) mg/dL AST 8 L (15-37) U/L ALT 21 (14-59) U/L Alkaline Phosphatase 185 H (46-116) U/L Albumin 3.3 L (3.4-5.0) g/dL Urine 10/09/24 Range/Units 20:02 Urine Color Lt. yellow (YELLOW) Urine Clarity Clear (CLEAR) Urine pH 6.0 (5.0-9.0) Ur Specific [place] 1.020 (1.005-1.025) Urine Protein Negative (NEG/TRACE) mg/dL Urine Glucose (UA) >=1000 A (NEGATIVE) mg/dL ABG ABG results: 10/09/24 20:10 VBG pH 7.291 L VBG pCO2 23.1 L Assessment and Plan Assessment and Plan (1) DKA (diabetic ketoacidosis): Assessment and Plan: Patient was on insulin drip overnight, anion gap from 26 to 9.2 so drip stopped and started lantus 10units BID along with SSI, accucheck q1 hours now Qachs. advance diet as tolerated to full liquid. Ha1c was 13.6. urine positive for ketones and blood acetone positive. Patient with weight loss >100 pounds with nausea, polyuria and polydipsia. Discussed with patient she will need insulin to go home. Will try to find an affordable regimen for her. Qualifiers: Diabetes mellitus complication detail: without coma Diabetes mellitus type: type 2 Qualified Code(s): E11.10 - Type 2 diabetes mellitus with ketoacidosis without coma (2) Unsteady gait: Assessment and Plan: will get PT/OT evaluations, most likely from the DKA and hyperglycemia and malnourishment (3) Trichomonal cystitis: Assessment and Plan: will treat with metronidazole 500mg BID x 7 days; discussed findings with patient, she is amendable to hepatitis, HIV, syphilis and chlamydia/Gonorrhea testing; this has been ordered (4) Thyroid goiter: Assessment and Plan: will need thyroid ultrasound as outpatient; TSH was in normal range (5) Smoker: Assessment and Plan: nicotine patch (6) Hyperglycemia due to type 2 diabetes mellitus: Assessment and Plan: patient has long history of medical non-compliance, she will need to be on insulin and will need a pcp upon discharge Qualifiers: Diabetes mellitus long term care pharmacist insulin use: without longterm use Qualified Code(s): E11.65 - Type 2 diabetes mellitus with hyperglycemia (7) Malnutrition: Assessment and Plan: will get nutrition consult; start ensure TID Qualifiers: Malnutrition type: protein-calorie malnutrition Protein-calorie malnutrition severity: severe Qualified Code(s): E43 - Unspecified severe protein-calorie malnutrition Plan patient is a full code Patient is in observation status Patient is expected to stay 1-2 days for hospital necessary care
[2024-10-10] MEDS: METRONIDAZOLE 250 MG TABLET 500 MG PO ×2 (08:49→21:07)
[2024-10-10] MEDS: MAGNESIUM SULFATE IN WATER 2 GM/50 ML PREMIX IV (10:02)
[2024-10-10] MEDS: LACTATED RINGER'S SOLUTION 1,000 ML 100 ML IV ×2 (10:42→22:45)
--- NOTE | 2024-10-10 11:23 | CM.NOTE ---
Rounds made with Dr. Gonzalez. Dr. Gonzalez discusses lab findings and test results with Ms. Hidalgo. Discussed ordering additional labs. No discharge today.
--- NOTE | 2024-10-10 11:37 | SWNOTE1 ---
SW did speak with doctor prior to going in. Pt will need insulin at discharge and need a physician as well. Likely will need Medicaid. Doctor was going to speak with pharmacy about insulin. SW met with pt to discuss dc needs. Pt's daughter in room as well. SW spoke to her about the need for insulin and we will look at the cost for that. SW and pt spoke about her job. Pt is concerned she will not have a job at [employer] as she has missed a lot of work. SW did let her know that she could apply for Medicaid and it would be beneficial for getting in to doctor's and getting the medication and services she will need. Pt and daughter are open to this. SW to bring Medicaid richard in to pt. Pt was concerned about the other medications she may be on. SW let her know that we will call her pharmacy at discharge to get a final cost for her. At this point pt and daughter have no further questions. SW did review therapy notes as well. SW to speak with pt about walker.
[2024-10-10] MEDS: ENSURE ORIGINAL 237 ML BOTTLE PO ×2 (11:57→21:07)
[2024-10-10 12:01] LABS: Glucometer 390 mg/dL (74-106)
--- NOTE | 2024-10-10 12:11 | SWNOTE1 ---
SW provided pt and daughter with Medicaid application. Daughter will try to assist with filling out and SW will stop back and see if they have any question. SW did let pt and daughter know that pt will benefit from getting a walker as well. SW let her know that many times [employer] or thrift stores have walkers that people have dropped off. SW also suggested online and let them know places such as [employer], [employer], etc have walkers as well. Pt and daughter voiced understanding.
--- NOTE | 2024-10-10 13:02 | PC.NURSE ---
pt and daughter made aware of transfer to [facility] rm 202. taken to room via wheelchair with belongings. report given to rosalind rodgers
--- NOTE | 2024-10-10 13:13 | SWNOTE1 ---
Correction from previous entry. Pt's daughter does not live with her, pt lives at home alone, daughter moved out about a year ago.
--- NOTE | 2024-10-10 13:14 | SWNOTE1 ---
Pt completed Medicaid application. SW faxed Medicaid application to [facility]. TITUS advised pt if they have any questions [facility] reach [facility]. TITUS advised pt if she has not heard anything within a week or 2, call [facility]. SW provided pt with phone number, SW also gave back original of Medicaid richard.
--- NOTE | 2024-10-10 13:26 | SWNOTE1 ---
SW did call [facility] and they do take self pay patients, but patient will have to fill out online new patient forms. Once they are submitted they reach out to patient (usually within 24 hours) to schedule an appointment. SW to see if pt would like to do this.
--- NOTE | 2024-10-10 13:35 | SWNOTE1 ---
SW stopped back in pt's room, pt's daughter in room as well. SW let them know about [facility] taking private pay and may be able to get pt in for follow up. Pt and daughter in agreement. SW provided pt with website and the new patient form to be completed online. Daughter and pt are going to work on filling it out. SW to stop by later.
[2024-10-10 14:15] LABS: Anion Gap 10.8; BUN Creatinine Ratio 12.5; Calcium 8.4 mg/dL (8.5-10.1); Carbon Dioxide 24.5 mmol/L (21.0-32.0); Chloride 99 mmol/L (98-107); Estimated GFR (African America >60 (>=60 mL/min/1.73m^2); Estimated GFR (Non-African Ame >60 (>=60 mL/min/1.73m^2); Glucose 480 mg/dL (74-106); Potassium 4.3 mmol/L (3.5-5.1); Sodium 130 mmol/L (136-145)
--- NOTE | 2024-10-10 15:45 | SWNOTE1 ---
SW stopped back in to see if pt and daughter completed new patient registration. They have completed the online new patient registration. SW to stop back in tomorrow to see if anyone called to schedule an appointment. If not SW will call tomorrow to make sure information was received.
--- NOTE | 2024-10-10 19:39 | PC.NURSE ---
Patient daughter approached staff during report asking if she could walk around with her Mom because she was restless. Cartridge Loader was in a patient room and received a call that patient was outside smoking. Nursing supervisor home economics had a conversation with patient about rules of hospital.
[2024-10-10 21:07] LABS: Glucometer 308 mg/dL (74-106)
[2024-10-10] MEDS: TEMAZEPAM 15 MG CAPSULE PO (21:08)
[2024-10-10] MEDS: INSULIN GLARGINE 300 UNIT/3 ML INSULN.PEN 15 UNIT SQ (21:09)
[2024-10-11] VITALS (11 sets, daily range): BP systolic 93–99; BP diastolic 64–67; PULSE 75–100; TEMP 36.6; O2SAT 96–100; BMI 17.7
[2024-10-11 05:08] LABS: HBsAg Screen Negative (Negative); HCV Ab Non Reactive (Non Reactive); HIV Ab/p24 Ag Screen Non Reactive (Non Reactive); Hep A Ab, IgM Negative (Negative); Hep B Core Ab, IgM Negative (Negative); RPR Non Reactive (Non Reactive)
[2024-10-11 06:10] LABS: Basophils Percent Auto 0.6 % (0.2-2.0); Eosinophils Absolute Auto 0.1 10^3/uL (0.0-0.7); Eosinophils Percent Auto 1.1 % (0.9-7.0); Hematocrit 40.7 % (36.0-48.0); Hemoglobin 14.2 g/dL (12.0-16.0); Immature Granulocytes Abs Auto 0.07 10^3/uL (0.00-0.03); Immature Granulocytes Pct Auto 1.3 % (0.0-0.5); Lymphocytes Percent Auto 37.9 % (20.5-60.0); Mean Corpuscular HGB Conc 34.9 g/dL (29.9-35.2); Mean Corpuscular Hemoglobin 32.9 pg (26.7-34.0); Mean Corpuscular Volume 94.2 fL (81.0-99.0); Monocytes Absolute Auto 0.3 10^3/uL (0.3-0.8); Neutrophils Absolute Auto 2.8 10^3/uL (1.4-6.5); Neutrophils Percent Auto 53.1 % (43.0-75.0); Platelet Count 175 10^3/uL (150-450); Red Blood Count 4.32 10^6/uL (4.20-5.40); Red Cell Distribution Width 12.3 % (11.0-15.0); White Blood Count 5.3 10^3/uL (4.0-11.0)
[2024-10-11 06:29] LABS: Alanine Aminotransferase 17 U/L (14-59); Albumin Level 2.5 g/dL (3.4-5.0); Alkaline Phosphatase 118 U/L (46-116); Anion Gap 9.8; Aspartate Amino Transferase 21 U/L (15-37); BUN Creatinine Ratio 14.9; Bilirubin Total 0.2 mg/dL (0.2-1.0); Calcium 8.6 mg/dL (8.5-10.1); Chloride 103 mmol/L (98-107); Estimated GFR (African America >60 (>=60 mL/min/1.73m^2); Estimated GFR (Non-African Ame >60 (>=60 mL/min/1.73m^2); Globulin 2.5 g/dL; Glucose 293 mg/dL (74-106); Potassium 3.8 mmol/L (3.5-5.1); Sodium 138 mmol/L (136-145)
--- NOTE | 2024-10-11 08:04 | PM.DS1 ---
DS: Providers Provider Date of admission: 10/10/24 00:43 Primary care physician: Non-Staff PhysicianMD Attending physician on admission: Delilah Gonzalez Consults: 10/10/24 Consult to Dietitian Routine Reason for consultation: weight loss >150# 1 year Has provider been notified: No 10/10/24 08:07 Occupational Therapy Eval and Treat Routine Reason for consultation: weakness Has provider been notified: No Physical Therapy Eval and Treat Routine Reason for consultation: weakness Has provider been notified: No Discharging clinician: Delilah Gonzalez DS: Diagnosis Discharge Diagnosis (1) DKA (diabetic ketoacidosis): Qualifiers: Diabetes mellitus complication detail: without coma Diabetes mellitus type: type 2 Qualified Code(s): E11.10 - Type 2 diabetes mellitus with ketoacidosis without coma (2) Unsteady gait: (3) Trichomonal cystitis: (4) Thyroid goiter: (5) Smoker: (6) Hyperglycemia due to type 2 diabetes mellitus: Qualifiers: Diabetes mellitus long-term insulin use: without long-term use Qualified Code(s): E11.65 - Type 2 diabetes mellitus with hyperglycemia (7) Malnutrition: Qualifiers: Malnutrition type: protein-calorie malnutrition Protein-calorie malnutrition severity: severe Qualified Code(s): E43 - Unspecified severe protein-calorie malnutrition DS: Summary Hospital Course Hospital Course: Patient is a 49 y.o white female with past history of non insulin dependent type 2 diabetes (was previously on metformin?), and multinodular goiter (was previously taking levothyroxine). Per review of an ER visit from 1 year ago patient admitted to losing >100 pounds at that time and was also then, not taking medication or following up with any physician for her care. Noted on Ct scan from 10/26/23: Markedly enlarged, heterogenous, and multinodular thyroid measures at least 9.6 x 4.5 x 7.8 cm. This corresponds with abnormality seen on CT facial bones earlier today. Thyroid parenchyma extends into the inferior right carotid space and both lobes extend posterior to the larynx into the prevertebral space. The inferior margin of the thyroid extends to the superior margin of the clavicular heads. There is mild narrowing of the right piriform sinus due to mass effect. Patient presented to the ER 10/09/24 with unsteady and shaky on her feet and has had falls over the last 3-4 weeks. She further complains of brain fog, confusion intermittently and loss of appetite. She denies any injury from falling and denies pain at this time. She has a history of diabetes and states she does not take any medications for her diabetes, she takes no prescription meds and does not have a doctor as she has no insurance. 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 She denies fever, URI symptoms, chest pain or shortness of breath. She has been losing weight for over a year. She states she used to do extreme fasting to manage her diabetes. She reports loss of appetite, although she is able to take fluids well. She reports ongoing urinary incontinence. She has no abdominal pain, vomiting or diarrhea. Last menstrual period was 8 months ago. She admits to night sweats every night. ER findings: Urine positive for Trichomonas, Ketones; Blood positive for Ketones, Anion Gap 26, glucose 673, K 3.5, WBC's 4.3, hb 12.5, Mag 1.7. Patient admitted for Acute DKA and placed on insulin drip. CT scans of the head, abd/pelvis, chest and soft tissue neck reviewed and no abnormal findings noted except for prominent thyroid goiter. On 10/10/24 Anion Gap down to 9.2, K 2.8 replaced, ha1c 13.6, Glucose 296, drip was stopped and placed on Lantus 10units BID along with SSI. She is on full liquid diet and advance as tolerated to diabetic diet. She required about 70 units total of insulin in the last 24 hours. The most affordable option is Novolin 70/[address] her 25 units BID. I discussed with patient and daughter who was present that the vial option is most affordable. I have also written Rx's for glucometer with TID testing, and 1/2 CC syringes with 31 g needles for BID injections. Rx's were written and given to patient so she could shop around for the best leon at pharmacies. Supervisor [employer] to talk with her today, Social work to follow up on appointment with [facility] and Medicaid application, patient to receive some diabetic counseling information. She will also need Metronidazole 500mg BID x 6 more days. RPR, Hepatitis, and HIV testing all negative. Her labs and vitals are stable at the time of discharge. I discussed the importance of keeping sugar log as her insulin will need to be increased in the future. Normal TSH so no thyroid medication needed at this time but should get outpatient Thyroid ultrasound to follow up goiter. Patient and daughter both understanding of plan. She is also encouraged to get Nicotine patches and/or nicotine gum/Lozengers OTC for smoking cessation. Her new PCP will be able to give her RX for PT in future. Status at Discharge Functional status at discharge: independent ambulation Overall status at discharge: patient is progressing back to baseline Time Spent with Patient Time attestation: Total time spent providing and/or coordinating discharge services: Time spent: greater than 30 minutes Exam Narrative Exam Narrative: General: Patient is alert, and oriented to person, place and time, severe cachexia with hair thinning and dry skin Skin: no visible rashes, or ulcers Head: atraumatic, acephalic Eyes: PERRLA, no nystagmus present, conjunctiva clear, no scleral icterus Ears: normal gross auditory acuity Nose: symmetric, no discharge, no maxillary or frontal sinus tenderness Mouth/Throat: no erythema, exudate, or tonsillar enlargement, normal dentition Neck: enlarged thyroid, no JVD or audible carotid bruits Heart: Normal rate and rhythm, no murmurs/rubs/gallops Lungs: no audible wheezes, crackles and normal breath sounds all lung rodriguez Abdomen: Normal audible bowel sounds, no distension, No palpable masses, no organomegaly, no rebound/guarding/ or rigidity Musculoskeletal: severe muscle atrophy noted, no swelling bilateral lower extremities Neuro: CN II-X grossly intact Constitutional Vital Signs, click to edit/add: Last Vital Signs Temp 97.8 F 10/11/24 04:00 Pulse 88 10/11/24 07:54 Resp 16 10/11/24 07:29 BP 99/67 10/11/24 07:22 Pulse Ox 100 10/11/24 07:51 O2 Del Method Room Air 10/11/24 07:22 DS: Data Data Completed and Pending Labs on day of discharge: Labs from last 24 hours 10/11/24 10/10/24 10/10/24 05:40 21:05 13:21 WBC 5.3 RBC 4.32 Hgb 14.2 Hct 40.7 MCV 94.2 MCH 32.9 MCHC 34.9 RDW 12.3 Plt Count 175 MPV 10.0 Neut % (Auto) 53.1 Lymph % (Auto) 37.9 [place] % (Auto) 6.0 Eos % (Auto) 1.1 Baso % (Auto) 0.6 Neut # (Auto) 2.8 Lymph # (Auto) 2.0 [place] # (Auto) 0.3 Eos # (Auto) 0.1 Baso # (Auto) 0.0 Abs Immat Gran (auto) 0.07 H Imm/Tot Granulo (auto) 1.3 H Sodium 138 130 L Potassium 3.8 4.3 Chloride 103 99 Carbon Dioxide 29.0 24.5 Anion Gap 9.8 10.8 BUN 7.0 7.0 Creatinine 0.47 L 0.56 Est GFR ( Amer) >60 >60 Est GFR (Non-Af Amer) >60 >60 BUN/Creatinine Ratio 14.9 12.5 Glucose 293 H 480 H Calcium 8.6 8.4 L Phosphorus 2.0 L Magnesium 2.0 2.0 Total Bilirubin 0.2 AST 21 ALT 17 Alkaline Phosphatase 118 H Total Protein 5.0 L Albumin 2.5 L Globulin 2.5 Albumin/Globulin Ratio 1.0 RPR w/Rflx to Titer Non reactive Hepatitis A IgM Ab Negative Hep Bs Antigen Negative Hep B Core IgM Ab Negative Hepatitis C Antibody Non reactive Hepatitis C Interp Comment HIV 1&2 Ag/Ab, 4th Gen Non reactive POC Glucose 308 H 10/10/24 11:59 WBC RBC Hgb Hct MCV MCH MCHC RDW Plt Count MPV Neut % (Auto) Lymph % (Auto) [place] % (Auto) Eos % (Auto) Baso % (Auto) Neut # (Auto) Lymph # (Auto) [place] # (Auto) Eos # (Auto) Baso # (Auto) Abs Immat Gran (auto) Imm/Tot Granulo (auto) Sodium Potassium Chloride Carbon Dioxide Anion Gap BUN Creatinine Est GFR ( Amer) Est GFR (Non-Af Amer) BUN/Creatinine Ratio Glucose Calcium Phosphorus Magnesium Total Bilirubin AST ALT Alkaline Phosphatase Total Protein Albumin Globulin Albumin/Globulin Ratio RPR w/Rflx to Titer Hepatitis A IgM Ab Hep Bs Antigen Hep B Core IgM Ab Hepatitis C Antibody Hepatitis C Interp HIV 1&2 Ag/Ab, 4th Gen POC Glucose 390 H Discharge Plan Discharge Disposition: Home, Self-Care Discharge Medications: New metronidazole 250 mg Tablet 500 mg PO BID 6 Days Qty: 24 0RF Novolin 70/30 U-100 Insulin 100 unit/mL (70-30) Suspension 25 unit subcut BID 30 Days Qty: 15 0RF Activity: increase activity as tolerated Diet: advance to your usual diet Print Language: Serbian Forms: Portal Instructions
[2024-10-11] MEDS: FAMOTIDINE/PF 20 MG/2 ML VIAL IV (08:22)
[2024-10-11] MEDS: METRONIDAZOLE 250 MG TABLET 500 MG PO (09:38)
[2024-10-11] MEDS: INSULIN NPH 70-30 100UNIT/ML VIAL (10ML) 25 UNIT SUBQ (09:39)
[2024-10-11] MEDS: ENOXAPARIN SODIUM 40 MG/0.4 ML SYRINGE SUBQ (09:39)
[2024-10-11] MEDS: ENSURE ORIGINAL 237 ML BOTTLE PO (09:39)
[2024-10-11] MEDS: INSULIN ASPART 300 UNIT/3 ML PEN SUBQ ×2 (09:40→11:14)
--- NOTE | 2024-10-11 10:00 | CM.NOTE ---
Rounds made with Dr. Gonzalez, pt will discharge to home today. Discussed with pt about new home medications and education provided on diabetes. Pt and daughter both verbalize understanding of insulin injections. Pt also provided with folder of reading materials related to diabetes. Pt provided also with [facility] RN that does outpatient diabetic education for ongoing resources. Pt awaiting Medicaid approval.
--- NOTE | 2024-10-11 11:04 | PT.DAILY ---
Physical Therapy Daily Note PT Daily Note/Assess Start: 10/11/24 10:57 Freq: Status: Active Protocol: Document 10/11/24 10:45 HAFSA (Rec: 10/11/24 11:04 HAFSA [id number]) Physical Therapy Daily Note/Assessment Time In/Time Out Time In 10:45 Time Out 10:55 Subjective Subjective Patient reports feeling better today. Has more energy and was ready to get up and walk. Therapeutic Activity Time Therapeutic Activity 10 Minutes (minutes) Therapeutic Activity 1 Units Therapeutic Activity Treatment Bed Mobility Ability Independent Chair Transfer Standby Assistance Ability Therapeutic Activity Patient ambulates 128 feet with RW and CGA for safety Comments Total Physical Therapy Time Total Therapy 10 Minutes Total Physical 1 Therapy Units Summary Daily Note Summary Patient demonstrates improved distance with ambulation to 128 feet with RW and CGA for safety. Patient reports having better endurance and less fatigue with walk today. Mild fatigue reported in B LE but patient is able to continue to ambulate without issues. HEP given for standing program at home to increase B LE strength.
[2024-10-11 11:12] LABS: Glucometer 352 mg/dL (74-106)
[2024-10-11] MEDS: NICOTINE 21 MG PATCH.TD24 TD (11:17)
--- NOTE | 2024-10-11 11:21 | CM.NOTE ---
Case Management in for further diabetic education and discussion regarding written information. Discussed with pt injection, how to draw up medication and administration.
--- NOTE | 2024-10-11 12:08 | SWNOTE1 ---
SW followed up with pt in regards to follow up with [facility]. Budget And Policy Analyst had call [facility], but they do not have her information. SW called [facility] and they did inform SW that they can find her in system. She stated that she can review information on phone with pt and get her scheduled. SW went in to room with [facility] on the phone and pt gave permission for her daughter to speak with [facility] and answer questions. Daughter completed questions and apt scheduled for 10/12/24 @ 9:15am. SW notified med/surge police department secretary. Case management gave pt [facility] card for medications.
--- NOTE | 2024-10-11 12:30 | NUTR.NU ---
Diet consult completed; diabetic diet education provided.
[2024-10-11 21:09] LABS: Glucometer 309 mg/dL (74-106)
[2024-10-12 07:07] LABS: Neisseria gonorrhoeae, NAA Negative (Negative)
--- NOTE | 2024-10-12 16:19 | CM.DCFOLLOWU ---
Person spoke with: patient and daughter How are you feeling? well, but legs are very swollen to the point of not being able to ambulate and pants cutting in to her skin How is your pain? legs are getting painful Did you understand your discharge instructions?yes Do you have any questions about your discharge instructions?no Were you given any prescriptions at discharge?yes Were you able to get your prescriptions filled?yes Do you understand how to take your medications as ordered?yes Do you have any questions about your follow up appointment and do you plan to keep your follow up appointment? no questions. Had follow up today and has follow up with Human Resources tomorrow in regards to finances Is there anything else that you would like to discuss? Advised pt and daughter that if her legs are that swollen and she is not able to ambulate, recommend coming to ED to be checked out. They are in agreement Questions/Comments/Concerns/Other:none
== END 2024-10-11 12:38 | disposition home or self-care (01) ==
LOC: ER 22:52 → ICU 10-10 00:48 → MS 10-10 12:44
PROVIDERS: Physician Assistant; Registered Nurse; Admitting Provider Family Medicine; Emergency Provider Internal Medicine; Visit Provider Family Medicine
DX: E11.10 Type 2 diabetes mellitus with ketoacidosis without coma (principal); R26.81 Unsteadiness on feet; E04.9 Nontoxic goiter, unspecified; E43 Unspecified severe protein-calorie malnutrition; F17.210 Nicotine dependence, cigarettes, uncomplicated; Z91.81 History of falling; Z91.198 Patient's noncompliance with other medical treatment and regimen for other reason; R32 Unspecified urinary incontinence; R64 Cachexia; A59.03 Trichomonal cystitis and urethritis; Z68.1 Body mass index [BMI] 19.9 or less, adult
CPT/HCPCS: 36415; 70450; 70490; 71260; 74177; 80048; 80053; 80074; 80307; 80320; 81001; 82009; 82800; 82948; 83036; 83605; 83735; 83880; 84100; 84443; 84484; 85025; 85610; 86592; 87389; 87491; 87591; 93005; 94761; 96361; 96365; 96366; 96368; 96372; 96375; 96376; 97161; 97165; 97530; 99285; G0378; J1650; J3475; J3480; J3490; Q9967

== ENCOUNTER 2024-10-15 05:37 | Emergency (ER) | payer SELFPAY ==
[2024-10-15 05:42] VITALS: BP 102/60; PULSE 85; TEMP 36.6; O2SAT 100; BMI 20.6
--- OUTSIDE RECORDS SUMMARY | 2024-10-15 05:45 | XMS_ITS | CCD ---
Author Organization [facility] ion [facility] Care Team Providers Care Aviation Program Manager Name Role Phone [facility] Other Primary Car e Provider Lenora Whitehead Unavailable [facility], DR TRAMMELL Primary Care Unavailable MARKER ., DR LUNA Admitting Unavailable MARKER ., DR LUNA Attending Unavailable MARKER ., DR LUNA Consulting Unavailable [facility] DR TRAMMELL Primary Care Unavailable MARKER ., DR LUNA Admitting Unavailable MARKER ., DR LUNA Attending Unavailable MARKER ., DR LUNA Consulting Unavailable KLIPPER, LORETA Consulting Unavailable NORMA, GOMEZ L Attending Unavailable NORMA, GOMEZ L Referring Unavailable NORMA, GOMEZ L Primary Care Unavailable NORMA, GOMEZ L Attending Unavailable NORMA, GOMEZ L Referring Unavailable NORMA, GOMEZ L Primary Care Unavailable NORMA, GOMEZ L Attending Unavailable WILKES, IAN L Attending Unavailable NORMA, GOMEZ L Primary Care Unavailable NORMA, GOMEZ L Referring Unavailable NORMA, GOMEZ L Primary Care Unavailable NORMA, GOMEZ L Referring Unavailable NORMA, GOMEZ L Primary Care Unavailable NORMA, GOMEZ L Referring Unavailable NORMA, GOMEZ L Primary Care Unavailable WILKES, IAN L Referring Unavailable NORMA, GOMEZ L Primary Care Unavailable NORMA, GOMEZ L Primary Care Unavailable LUKAS PICKARD Attending Unavailab le NORMA, GOMEZ L Referring Unavailable NORMA, GOMEZ L Primary Care Unavailable Norma BLACKING MACHINE OPERATOR-TORPEDO SPECIALIST, Gomez L Primary Care Provider Medications Current Medications Medication Drug Class(es) Dates Sig (Normalized) Sig (Original) acetaminophen 500 mg oral tablet (7 sources) Start: 07-12-2022 take 1 tablet by mouth every six hours as needed for pain acetaminophen (TYLENOL EXTRA STRENGTH) 500 mg tablet Take 1 tablet (500 mg total) by mouth every 6 (six) hours as needed for pain. 30 tablet 07/12/2022 Active blood-glucose meter misc (4 sources) Start: 09-01-2023 blood-glucose meter misc Use to check blood sugar once daily. 1 each 09/01/2023 Active Start: 09-01-2023 blood-glucose meter misc Use to check blood sugar once daily. 1 each 0 09/01/2023 Active ibuprofen 800 mg oral tablet (7 sources) Nonsteroidal Anti-inflammatory Drug Start: 07-12-2022 take 1 tablet by mouth every eight hours as needed for pain ibuprofen (MOTRIN) 800 mg tablet Take 1 tablet (800 mg total) by mouth every 8 (eight) hours as needed for pain. 21 tablet 07/12/2022 Active levothyroxine sodium 0.075 mg oral tablet (11 sources) l-Thyroxine Start: 10-19-2023 take 1 tablet by mouth in the morning levothyroxine (SYNTHROID, LEVOTHROID) 75 MCG tablet Take 1 tablet (75 mcg total) by mouth in the morning. 90 tablet 1 10/19/2023 Active Start: 09-01-2023 End: 10-19-2023 take 1 tablet by mouth in the morning levothyroxine (SYNTHROID, LEVOTHROID) 50 MCG tablet Take 1 tablet (50 mcg total) by mouth in the morning. 30 tablet 1 09/01/2023 10/19/2023 Discontinued (Therapy completed) Start: 10-30-2020 End: 09-01-2023 take 0.5 tablet by mouth once daily levothyroxine (SYNTHROID, LEVOTHROID) 100 MCG tablet Indications: Graves disease , Acquired hypothyroidism Take 0.5 tablets (50 mcg total) by mouth daily. 30 tablet 2 10/30/2020 09/01/2023 Discontinued (Therapy completed) take 1 tablet by anastacio th once daily levothyroxine 300 MCG tablet Take 300 mcg by mouth daily. 0 Active metFORMIN hydrochloride 500 mg oral tablet (3 sources) Biguanide Start: 10-13-2023 take 1 tablet by mouth in the morning, then take 1 tablet by mouth at mealtime metFORMIN (GLUCOPHAGE) 500 mg tablet Take 1 tablet (500 mg total) by mouth in the morning and 1 tablet (500 mg total) in the evening. Take with meals. 180 tablet 1 10/13/2023 Active permethrin 50 mg/ml topical cream (1 source) Pyrethroid Start: 05-02-2021 Permethrin 5 % 1 application Externally Two times a Week Perform the treatment as directed, repeat in 3 days. Apr, Active pilocarpine hydrochloride 5 mg oral tablet (3 sources) Cholinergic Receptor Agonist Start: 07-10-2021 take 1 tablet by mouth four times daily at mealtime pilocarpine 5 MG tablet Indications: History of Sjogren's disease , Hyperpigmentation of skin of cheek , Xerostomia , Dry mouth , Dry eyes , Telangiectasia of face , Hypothyroidism, unspecified type , Hyperglycemia , Basedow's disease , Keratoconjunctivitis sicca , Osteoarthritis of right hand, unspecified osteoarthritis type , Osteoarthritis of left foot, unspecified osteoarthritis type , Lumbar degenerative disc disease 1 po qid 30 minutes prior to meals and bed time 120 tablet 11 07/10/2021 Active Start: 11-12-2016 End: 07-10-2021 take 1 mg by mouth once daily pilocarpine 5 MG Tab Indications: Sjogren's syndrome , Vitamin D deficiency , TTS (tarsal tunnel syndrome), unspecified laterality , Lumbar degenerative disc disease , Osteoarthritis of left foot, unspecified osteoarthritis type , Osteoarthritis of right hand, unspecified osteoarthritis type , Encounter for long-term (current) use of non-steroidal anti-inflammatories 1 po qid 30 minutes before meals and bedtime 360 tablet 3 11/12/2016 07/10/2021 Discontinued rOPINIRole 0.25 mg oral tablet (1 source) Nonergot Dopamine Agonist Start: 07-25-2021 rOPINIRole 0.25 MG tablet 1 2-3 hours before bed x 1 week then increase to 2 before bed if no SE 60 tablet 1 07/25/2021 Active terbinafine 250 mg oral tablet (3 sources) Allylamine Antifungal Start: 10-08-2023 terbinaf ine (LamISIL) 250 mg tablet 10/08/2023 Active Completed/Discontinued Medications Medication Drug Class(es) Dates Sig (Normalized) Sig (Original) esomeprazole 20 mg / naproxen 500 mg delayed release oral tablet (1 source) Proton Pump Inhibitor, Nonsteroidal Anti-inflammatory Drug Start: 7 End: 2 take 1 tablet by mouth twice daily as needed Naproxen-Esomeprazole (VIMOVO) 500-[address] Indications: Sjogren's syndrome , Lumbar degenerative disc disease , Osteoarthritis of both feet, unspecified osteoarthritis type , Abnormal immunological finding in serum , Vitamin D deficiency , Long-term current use of high risk medication other than anticoagulant , Noncompliance , Encounter for long-term (current) use of non-steroidal anti-inflammatories , TTS (tarsal tunnel syndrome), unspecified laterality , Osteoarthritis of right hand, unspecified osteoarthritis type , Right hand pain , Left foot pain 1 po bid PRN 60 tablet 11 10/29/2016 07/10/2021 Discontinued methylPREDNISolone 4 mg oral tablet (1 source) Corticosteroid Start: 7 End: 2 methylPREDNISolone 4 MG Tab Medrol dos pack- as directed 21 tablet 0 04/07/2017 07/10/2021 Discontinued naratriptan 2.5 mg oral tablet (1 source) Serotonin-1b and Serotonin-1d Receptor Agonist Start: 7 End: 2 naratriptan (AMERGE) 2.5 MG Tab 1 po prn headache max 5mg/day; may repeat in 4 hr x1 8 tablet 1 04/07/2017 07/10/2021 Discontinued ondansetron 4 mg disintegrating oral tablet (1 source) Serotonin-3 Receptor Antagonist Start: 3 End: 4 take 1 tablet by mouth every eight hours as needed for nausea ondansetron ODT (ZOFRAN ODT) 4 mg disintegrating tablet Dissolve 1 tablet (4 mg total) on tongue every 8 (eight) hours as needed for nausea for up to 10 doses. 10 tablet 0 07/12/2022 08/27/2023 Discontinued (Therapy completed) promethazine hydrochloride 25 mg oral tablet (1 source) Phenothiazine Start: 7 End: 2 take 1 tablet by mouth every eight hours as needed for nausea promethazine 25 MG Tab tablet 1 po q 8 hours prn nausea 10 tablet 1 04/07/2017 07/10/2021 Discontinued Problems Active Problems Problem Classification Problem Date Documented Date Episodic/Chronic Cancer of cervix (2 sources) Personal history of malignant neoplasm of cervix uteri; 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: [History of malignant neoplasm of cervix] Onset: 08-31-2023 08-31-2023 Episodic Cancer; other and unspecified primary (1 source) Personal history of other benign neoplasm; 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: [Personal history of other benign neoplasm] Onset: 08-31-2023 Episodic Diabetes mellitus with complications (2 sources) Diabetes mellitus; 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: [Other specified diabetes mellitus with hyperglycemia] Onset: 10-13-2023 09-01-2023 Chronic Diabetes mellitus with complications (5 sources) Type 2 diabetes mellitus with hyperglycemia; 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: [Other specified diabetes mellitus with hyperglycemia] Onset: 09-01-2023 10-13-2023 Chronic Diseases of mouth; excluding dental (6 sources) Xerostomia; 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: [Disturbances of salivary secretion] Onset: 07-10-2021 Episodic Disorders of lipid metabolism (3 sources) Hyperlipidemia, unspecified; 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: [Hyperlipidemia] Onset: 08-27-2023 08-27-2023 Chronic Headache; including migraine (10 sources) Migraine; 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: [Migraine, unspecified, not intractable, without status migrainosus] Onset: 05-03-2015 10-19-2016 Chronic Menstrual disorders (2 sources) Excessive and frequent menstruation with regular cycle; 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: [Menorrhagia] Onset: 08-31-2023 08-31-2023 Chronic Mycoses (2 sources) Tinea unguium; 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: [Onychomycosis] Onset: 10-08-2023 08-30-2023 Episodic Nutritional deficiencies (9 sources) Vitamin D deficiency; 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: [Vitamin D deficiency, unspecified] Onset: 10-29-2016 10-29-2016 Chronic Osteoarthritis (20 sources) Osteoarthritis of joint of right hand; 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: [Primary osteoarthritis, right hand] Onset: 10-29-2016 Chronic Other eye disorders (3 sources) Dry eyes; 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: [Dry eye syndrome of bilateral lacrimal glands] Onset: 07-10-2021 Episodic Other nervous system disorders (9 sources) Tarsal tunnel syndrome; 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: [Tarsal tunnel syndrome, unspecified lower limb] Onset: 10-29-2016 10-29-2016 Chronic Other nutritional; endocrine; and metabolic disorders (2 sources) Obese class II; 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: [Obesity, unspecified] Onset: 07-10-2021 07-10-2021 Chronic Other nutritional; endocrine; and metabolic disorders (1 source) Personal history of other endocrine, nutritional and metabolic disease; 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: [Personal history of other endocrine, nutritional and metabolic disease] Onset: 08-31-2023 Episodic Other nutritional; endocrine; and metabolic disorders (1 source) Abnormal weight loss; 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: [Abnormal weight loss] Onset: 08-31-2023 Episodic Other screening for suspected conditions (not mental disorders or infectious disease) (2 sources) Encounter for screening for malignant neoplasm of colon; 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: [Encounter for screening mammogram for malignant neoplasm of breast] Onset: 08-31-2023 Episodic Other upper respiratory disease (9 sources) Allergic rhinitis; 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: [Allergic rhinitis, unspecified] Onset: 06-14-2015 10-19-2016 Chronic Spondylosis; intervertebral disc disorders; other back problems (10 sources) Degeneration of lumbar intervertebral disc; 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: [Other intervertebral disc degeneration, lumbar region] Onset: 10-29-2016 Chronic Substance-related disorders (5 sources) Nicotine dependence, unspecified, uncomplicated; 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: [Smoker] Onset: 10-13-2023 08-27-2023 Chronic Systemic lupus erythematosus and connective tissue disorders (18 sources) Sjogren's syndrome; 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: [Sicca syndrome, unspecified] Onset: 06-14-2015 Resolved: 07-10-2021 Chronic Thyroid disorders (20 sources) Hypothyroidism; 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: [Hypothyroidism, unspecified] Onset: 10-29-2016 Chronic Unclassified (1 source) Annual Exam Onset: 09-01-2023 Unclassified (1 source) new patient Onset: 08-27-2023 Unclassified (1 source) Medical Screening Onset: 10-08-2023 Unclassified (1 source) REACTION TO MATERIAL - W.C. Onset: 10-08-2023 Viral infection (2 sources) COVID-19; 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: [Disease caused by 2019-nCoV] Onset: 03-19-2022 Past or Other Problems Problem Classification Problem Date Documented Date Episodic/Chronic Allergic reactions (7 sources) Allergic disorder; 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: [Allergy, unspecified, initial encounter] Onset: 1 10-15-2020 Episodic Cancer of cervix (11 sources) Malignant tumor of cervix; 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: [Malignant neoplasm of cervix uteri, unspecified] Onset: 7 Resolved: 4 10-29-2016 Chronic Cancer; other and unspecified primary (1 source) History of gynecological disorder; 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: [Personal history of other benign neoplasm] 08-31-2023 Episodic Diabetes mellitus without complication (13 sources) Hyperglycemia; 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: [Hyperglycemia, unspecified] Onset: 2 Episodic Immunizations and screening for infectious disease (3 sources) Abnormal blood test; 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: [Abnormal immunological finding in serum, unspecified] Onset: 7 Resolved: 1 11-12-2016 Episodic Malaise and fatigue (2 sources) Fatigue; 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: [Other fatigue] Onset: 5 10-19-2016 Episodic Mood disorders (7 sources) Mood disorders Onset: 4 Resolved: 4 10-13-2023 Nausea and vomiting (4 sources) Nausea; 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: [NAUSEA] Onset: 2 Episodic Other aftercare (2 sources) Drug therapy finding; 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: [Other senior living (current) drug therapy] Onset: 7 Resolved: 7 11-12-2016 Episodic Other aftercare (4 sources) Patient encounter status; 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: [FPC (current) use of non-steroidal anti-inflammatories (NSAID)] Onset: 7 Resolved: 2 07-10-2021 Episodic Other bone disease and musculoskeletal deformities (9 sources) Disorder of skeletal system; 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: [Disorder of bone, unspecified] Onset: 2 07-10-2021 Episodic Other circulatory disease (10 sources) Telangiectasia of skin of face; 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: [Nevus, non-neoplastic] Onset: 2 Episodic Other connective tissue disease (2 sources) Pain in right hand; 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: [Pain in right hand] Onset: 7 10-29-2016 Episodic Other connective tissue disease (2 sources) Pain in left foot; 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: [Pain in left foot] Onset: 7 10-29-2016 Episodic Other female genital disorders (3 sources) History of abnormal cervical Papanicolaou smear ; 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: [Personal history of other diseases of the female genital tract] Onset: 4 10-13-2023 Episodic Other infections; including parasitic (1 source) Scabies; 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: [Scabies B86] Onset: 1 Resolved: 1 Episodic Other nervous system disorders (9 sources) Neurological finding; 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: [Other abnormal involuntary movements] Onset: 2 Episodic Other non-traumatic joint disorders (2 sources) Shoulder pain; 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: [Pain in unspecified shoulder] Onset: 7 10-29-2016 Episodic Other nutritional; endocrine; and metabolic disorders (1 source) History of Graves' disease; 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: [Personal history of other endocrine, nutritional and metabolic disease] 08-31-2023 Episodic Other nutritional; endocrine; and metabolic disorders (1 source) Weight loss; 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: [Abnormal weight loss] 08-31-2023 Episodic Other skin disorders (4 sources) Hyperpigmentation of skin; 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: [Disorder of pigmentation, unspecified] Onset: 2 Episodic Other upper respiratory infections (1 source) Acute upper respiratory infection, unspecified; 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: [Viral upper respiratory illness J06.9] Onset: 1 Resolved: 1 Episodic Residual codes; unclassified (2 sources) Noncompliance with treatment; 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: [Patient's noncompliance with other medical treatment and regimen] Onset: 7 10-29-2016 Episodic Spondylosis; intervertebral disc disorders; other back problems (9 sources) Neck pain; 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: [Cervicalgia] Onset: 7 10-29-2016 Episodic Unclassified (7 sources) Onset: 1 10-31-2020 Results Test Name Value Interpretation Reference Range Facility US THYROIDon 10-30-2023 US THYROID US THYROID CLINICAL INFORMATION: Goiter. TECHNIQUE: Real time sonography of the thyroid gland performed. COMPARISON: Thyroid ultrasound 11/08/2020 FINDINGS: Thyroid size: Enlarged Right thyroid lobe measures: 9.0 x 4.0 x 3.6 cm Left thyroid lobe measures: 8.4 x 3.1 x 3.0 cm Overall thyroid texture: Heterogeneous texture with diffuse increased vascularity possibly due to underlying thyroiditis No discrete thyroid nodule is identified. IMPRESSION: Thyromegaly with coarse heterogeneous texture and hyperemia of the thyroid gland present concern for underlying thyroiditis ACR TI-RADS recommendations: TR5 (greater than or equal to 7 points) - FNA if greater than or equal to 1cm, follow-up ultrasound if nodule is 0.5 - 0.9 cm every year for 5 years. TR4 (4 - 6 points) - FNA if greater than or equal to 1.5 cm, follow-up ultrasound if nodule is 1 -1.4 cm at 1, 2, 3 and 5 years. TR3 (3 points) - FNA if greater than or equal to 2.5 cm, follow-up ultrasound if nodule is 1.5 -2.4 cm at 1, 3 and 5 years. TR2 (2 points) & TR1 (0 points) - No FNA or follow-up. Finalized by Leslye Villatoro MD on 10/30/2023 7:28 PM Normal [facility] BASIC METABOLIC PANLon 10-12 Anion gap [Moles/Vol] 18 mmol/L High 5-15 [facility] Comment on above: Performed By: #### B PHILLIP, 3016-3, 3024-7 #### [facility] ([id number]) [address], [address] [place] [address] Calcium [Mass/Vol] 9.0 mg/dL Normal 8.5-10.5 [facility] Comment on above: Performed By: #### Deric FISHER, 3016-3, 3024-7 #### [facility] ([id number]) [address], [address] [place] [address] Chloride [Moles/Vol] 101 mmol/L Normal 98-109 [facility] Comment on above: Performed By: #### B PHILLIP, 3016-3, 3024-7 #### [facility] ([id number]) [address], [address] [place] [address] CO2 [Moles/Vol] 15 mmol/L Low 22-32 [facility] Comment on above: Performed By: #### B PHILLIP, 3016-3, 3024-7 #### [facility] ([id number]) [address], [address] [place] [address] Creatinine [Mass/Vol] 0.52 mg/dL Normal 0.40-1.00 [facility] Comment on above: Result Comment: METH OD TRACEABLE TO IDMS STANDARD Performed By: #### Deric FISHER, 6-3, 3023-7 #### [facility] ([id number]) [address], [facility] [address] [place] [address] eGFR (CKD-EPI) NON-RACE DEPENDENT >90 Normal >59 [facility] Comment on above: Result Comment: Reported eGFR is based on the CKD-EPI 2020 equation that does not use a race coefficient. Performed By: #### Deric FISHER, 3015-3, 3023-7 #### [facility] ([id number]) [address], [address] [place] [address] Glucose [Mass/Vol] 321 mg/dL High 65-99 [facility] Comment on above: Performed By: #### Deric FISHER, 3015-3, 3023-7 #### [facility] ([id number]) [address], [address] [place] [address] Potassium [Moles/Vol] 4.3 mmol/L Normal 3.5-5.0 [facility] Comment on above: Performed By: #### Deric FISHER, 3015-3, 3023-7 #### [facility] ([id number]) [address], [address] [place] [address] Sodium [Moles/Vol] 134 mmol/L Normal 134-146 [facility] Comment on above: Performed By: #### Deric FISHER, 3015-3, 3023-7 #### [facility] ([id number]) [address] [address] [place] [address] Urea nitrogen [Mass/Vol] 15 mg/dL Normal 5-23 [facility] Comment on above: Performed By: #### Deric FISHER, 3015-3, 3024-7 #### [facility] ([id number]) [address] [facility], [address] [place] [address] Basic Metabolic Panelon 10-03 Anion gap [Moles/Vol] 18 mmol/L High 5 - 15 mmol/L [facility] Calcium [Mass/Vol] 9.0 mg/dL 8.5 - 10. 5 mg/dL [facility] Chloride [Moles/Vol] 101 mmol/L 98 - 109 mmol/L [facility] CO2 [Moles/Vol] 15 mmol/L Low 22 - 32 mmol/L [facility] Creatinine [Mass/Vol] 0.52 mg/dL 0.40 - 1.00 mg/dL [facility] Comment on above: METHOD TRACEABLE TO IDUT STANDARD eGFR (CKD-EPI)non-race dependent - PINF [facility] Comment on above: Reported eGFR is based on the CKD-EPI 2020 equation that does not use a race coefficient. Glucose [Mass/Vol] 321 mg/dL High 65 - 99 mg/dL [facility] Interpretation and review of laboratory results Abnormal [facility] Potassium [Moles/Vol] 4.3 mmol/L 3.5 - 5.0 mmol/L [facility] Sodium [Moles/Vol] 134 mmol/L 134 - 146 mmol/L [facility] Urea nitrogen [Mass/Vol] 15 mg/dL 5 - 23 mg/dL [facility] FREE T4on 10-13-2023 Free T4 [Mass/Vol] 0.56 ng/dL Low 0.61-1.60 [facility] Comment on above: Performed By: #### B PHILLIP, 3016-3, 3024-7 #### [facility] ([id number]) [address] [facility], [address] [place] [address] Free T4 [Mass/Vol]on 024 Interpretation and review of laboratory results [facility] T4, freeon 10-13-2023 Free T4 [Mass/Vol] 0.56 ng/dL Low 0.61 - 1. 60 ng/dL [facility] TSHon 10-13-2023 TSH Qn 9.36 m[IU]/L [facility] TSH Qnon 10-13-2023 Interpretation and review of laboratory results Abnormal [facility] TSH 9.36 uIU/mL High 0.49-4.67 [facility] Comment on above: Performed By: #### B MP, 3016-3, 3024-7 #### [facility] ([id number]) [address] [facility], [address] [place] [address] C peptide [Mass/Vol]on 09-01 C PEPTIDE 1.10 ng/mL Normal 0.81-3.85 [facility] Comment on above: Result Comment: NOTE Test Performed By: [place] [address] Carrot Harvester: Judson Reese III, M.D. [facility] #[id number] MICROALBUMIN - ALBUMIN:CREAT ININE URINE RATIOon 09-01-2023 ALB/CREAT RATIO NOT CALCULATED Normal 0.0-30.0 [facility] Comment on above: Result Comment: Result for Albumin/Creatinine Ratio cannot be reliably calculated because urine albumin and or urine creatinine is below the detection limit of the assay. Performed By: #### M ALBU #### [facility] ([id number]) [address] [facility], [address] [place] [address] Albumin DL <= 20 mg/L (U) [Mass/Vol] mg/dL Normal 0.0-1.[address] [facility] Comment on above: Performed By: #### M ALBU #### [facility] ([id number]) [address] [facility], [address] [place] [address] URINE CREAT 12.23 mg/dL Normal [facility] Comment on above: Performed By: #### M ALBU #### [facility] ([id number]) [address] [facility], [address] [place] [address] Microalbumin - Albumin: Crea tinine Urine Ratioon 09-01-2023 Albumin/Creatinine DL <= 1.0 mg/L (U) [Ratio] NOT CALCULATED [facility] Comment on above: Result for Albumin/Creatinine Ratio cannot be reliably calculated because urine albumin and or urine creatinine is below the detection limit of the assay. Creatinine (U) [Mass/Vol] 12.23 mg/dL [facility] Cytologyon 08-31-2023 Cytology Normal [facility] Comment on above: Result Comment: [facility] [employer] [facility] [address] [place] [address] Gynecologic Cytology Consultation Patient Name:ANAYELI HIDALGO:1975 (Age: 48)Gender:FTaken:4Reported:09/11/2023hysician(s):Ian Wilkes DO ([phone])Copy To: Rec. #:[id number]: #[id number] Final Cytologic Interpretation ThinPrep Pap Test (Cervical): Satisfactory for evaluation. A transformation zone component is present. Low squamous cellularity. NEGATIVE FOR INTRAEPITHELIAL LESION OR MALIGNANCY. lrd/09/11/2023 Interpretation performed at [facility], [address] [place] [address], License number: [id number]. 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 Normal [facility] Comment on above: Performed By: #### 7 1431-1 #### [facility] ([id number]) [address] [facility] FIRST FLOOR [place], [place] [id number] [facility] ([id number]) [address], [address] [place] [address] COMPREHENSIVE METABOLIC PANE [place] 08-27-2023 Albumin [Mass/Vol] 3.9 g/dL Normal 3.2-5.3 [facility] Comment on above: Performed By: #### C MP, THYR, HA1C, 57686-1 #### [facility] ([id number]) [address], [address] [place] [address] ALP [Catalytic activity/Vol] 73 U/L Normal 39-130 [facility] Comment on above: Performed By: #### C MP, THYR, HA1C, 85595-9 #### [facility] ([id number]) [address], [address] [place] [address] ALT [Catalytic activity/Vol] 7 U/L Normal 0-31 [facility] Comment on above: Performed By: #### C MP, THYR, HA1C, 00682-6 #### [facility] ([id number]) [address], [address] [place] [address] Anion gap [Moles/Vol] 9 mmol/L Normal 5-15 [facility] Comment on above: Performed By: #### C MP, THYR, HA1C, 85889-5 #### [facility] ([id number]) [address], [address] [place] [address] AST [Catalytic activity/Vol] 9 U/L Normal 0-41 [facility] Comment on above: Performed By: #### C MP, THYR, HA1C, 11210-5 #### [facility] ([id number]) [address] [address] [place] [address] Bilirubin [Mass/Vol] 0.5 mg/dL Normal 0.3-1.2 [facility] Comment on above: Performed By: #### C PHILLIP THYR, HA1C, 05105-8 #### [facility] ([id number]) [address] [address] [place] [address] Calcium [Mass/Vol] 8.7 mg/dL Normal 8.5-10.5 [facility] Comment on above: Performed By: #### C PHILLIP THYR, HA1C, 83763-6 #### [facility] ([id number]) [address] [address] Chloride [Moles/Vol] 99 mmol/L Normal 98-109 [facility] Comment on above: Performed By: #### C PHILLIP THYR, HA1C, 49096-6 #### [facility] ([id number]) [address] [address] CO2 [Moles/Vol] 24 mmol/L Normal 22-32 [facility] Comment on above: Performed By: #### C PHILLIP THYR, HA1C, 78708-0 #### [facility] ([id number]) [address] [address] Creatinine [Mass/Vol] 0.53 mg/dL Normal 0.40-1.00 [facility] Comment on above: Result Comment: METH OD TRACEABLE TO IDMS STANDARD Performed By: #### C PHILLIP THYR, HA1C, 10960-3 #### [facility] ([id number]) [address] [address] [place] [address] eGFR (CKD-EPI) NON-RACE DEPENDENT >90 Normal >59 [facility] Comment on above: Result Comment: Reported eGFR is based on the CKD-EPI 2021 equation that does not use a race coefficient. Performed By: #### C PHILLIP, THYR, HA1C, 30480-9 #### [facility] ([id number]) [address], [address] [place] [address] Glucose [Mass/Vol] 474 mg/dL Critically high 65-99 [facility] Comment on above: Performed By: #### C PHILLIP, THYR, HA1C, 32222-9 #### [facility] ([id number]) [address] [place] [address] Potassium [Moles/Vol] 3.9 mmol/L Normal 3.5-5.0 [facility] Comment on above: Performed By: #### C PHILLIP, THYR, HA1C, 77519-9 #### [facility] ([id number]) [address] [place] [address] Protein [Mass/Vol] 6.5 g/dL Normal 6.0-8.0 [facility] Comment on above: Performed By: #### C PHILLIP, THYR, HA1C, 74926-7 #### [facility] ([id number]) [address] [place] [address] Sodium [Moles/Vol] 132 mmol/L Low 134-146 [facility] Comment on above: Performed By: #### C PHILLIP, THYR, HA1C, 12771-6 #### [facility] ([id number]) [address], [address] [place] [address] Urea nitrogen [Mass/Vol] 7 mg/dL Normal 5-23 [facility] Comment on above: Performed By: #### C MP, THYR, HA1C, 52906-9 #### [facility] ([id number]) [address], [address] [place] [address] Comprehensive metabolic pane osmany 08-27-2023 Albumin [Mass/Vol] 3.9 g/dL 3.2 - 5.3 g/dL Pr [facility] ALP [Catalytic activity/Vol] 73 U/L 39 - 130 U/L [facility] ALT No additional P-5'-P [Catalytic activity/Vol] 7 U/L 0 - 31 U/L [facility] Anion gap [Moles/Vol] 9 mmol/L 5 - 15 mmol/L [facility] AST [Catalytic activity/Vol] 9 U/L 0 - 41 U/L [facility] Bilirubin [Mass/Vol] 0.5 mg/dL 0.3 - 1.2 mg/dL [facility] Calcium [Mass/Vol] 8.7 mg/dL 8.5 - 10. 5 mg/dL [facility] Chloride [Moles/Vol] 99 mmol/L 98 - 109 mmol/L [facility] CO2 [Moles/Vol] 24 mmol/L 22 - 32 mmol/L [facility] Creatinine [Mass/Vol] 0.53 mg/dL 0.40 - 1.00 mg/dL [facility] Comment on above: METHOD TRACEABLE TO [facility] STANDARD eGFR (CKD-EPI)non-race dependent - PINF [facility] Comment on above: Reported eGFR is based on the CKD-EPI 2020 equation that does not use a race coefficient. Glucose [Mass/Vol] 474 mg/dL Critically high 65 - 99 mg/d L [facility] Interpretation and review of laboratory results Abnormal [facility] Potassium [Moles/Vol] 3.9 mmol/L 3.5 - 5.0 mmol/L [facility] Protein [Mass/Vol] 6.5 g/dL 6.0 - 8.0 g/dL Pr [facility] Sodium [Moles/Vol] 132 mmol/L Low 134 - 146 mmol/L [facility] Urea nitrogen [Mass/Vol] 7 mg/dL 5 - 23 mg/dL [facility] HGB A1C (GLYCO-HGB)on 2023 Glucose [Mass/Vol] 349 mg/dL Normal [facility] Comment on above: Performed By: #### C MP, THYR, HA, 33261-0 #### [facility] ([id number]) [address], [address] [place] [address] HbA1c (Bld) [Mass fraction] 13.8 % High 4.4-5.6 [facility] Comment on above: Result Comment: NOTE ADA Guidelines Result HgbA1c Normal : less than 5.7 % Prediabetes : 5.7 % to 6.4 % Diabetes : > 6.4 % Use with caution in patients with abnormal hemoglobin variants as the half-life of red blood cells and in vivo glycation rates are affected. Performed By: #### C MP, THYR, [facility], 45014-7 #### [facility] ([id number]) [address] [facility], [address] [place] [address] Hemoglobin A1con 08-27-2023 Average glucose Estimated from glycated hemoglobin (Bld) [Mass/Vol] 349 mg/dL [facility] HbA1c (Bld) [Mass fraction] 13.8 % High 4.4 - 5.6 % [facility] Comment on above: NOTE ADA Guidelines Result HgbA1c Normal : less than 5.7 % Prediabetes : 5.7 % to 6.4 % Diabetes : > 6.4 % Use with caution in patients with abnormal hemoglobin variants as the half-life of red blood cells and in vivo glycation rates are affected. Interpretation and review of laboratory results [facility]normal [facility] Lipid 1996 panelon 4 Cholesterol [Mass/Vol] 104 mg/dL Low 150 - 200 mg/dL [facility] Cholesterol in HDL [Mass/Vol] 43 mg/dL 39 - PINF mg/dL [facility] Comment on above: HDL <40 mg/dL - High Risk HDL > or = 40mg/dL- Desirable HDL >60 mg/dL - Negative Risk Cholesterol in LDL [Mass/Vol] 28 mg/dL NINF - 130 mg/dL [facility] Comment on above: LDL <100 mg/dL - Desirable LDL >160 mg/dL - High Risk Cholesterol in VLDL [Mass/Vol] 33 mg/dL High 0 - 30 mg/dL [facility] Cholesterol.total/C holesterol in HDL [Mass ratio] 2.4 {ratio} 1.0 - 5.0 [facility] Triglyceride [Mass/Vol] 165 mg/dL High 27 - 150 mg/dL [facility] Cholesterol [Mass/Vol] 104 mg/dL Low 150-200 [facility] Comment on above: Performed By: #### C PHILLIP, CHRISR, HA1C, 81037-3 #### [facility] ([id number]) [address], [address] [place] [address] Cholesterol in HDL [Mass/Vol] 43 mg/dL Normal >39 [facility] Comment on above: Result Comment: HDL <40 mg/dL - High Risk HDL > or = 40mg/dL- Desirable HDL >60 mg/dL - Negative Risk Performed By: #### C PHILLIP, THYR, HA1C, 53959-5 #### [facility] ([id number]) [address], [address] [place] [address] Cholesterol in LDL [Mass/Vol] 28 mg/dL Normal <130 [facility] Comment on above: Result Comment: LDL <100 mg/dL - Desirable LDL >160 mg/dL - High Risk Performed By: #### C MP, THYR, HA1C, 37842-1 #### [facility] ([id number]) [address], [address] [place] [address] Cholesterol in VLDL [Mass/Vol] 33 mg/dL High 0-30 [facility] Comment on above: Performed By: #### C MP, THYR, HA1C, 90450-3 #### [facility] ([id number]) [address], [address] [place] [address] CHOLESTEROL:HDL 2.4 Normal 1.0-5.0 [facility] Comment on above: Performed By: #### C MP, THYR, HA1C, 86669-3 #### [facility] ([id number]) [address], [address] [place] [address] Triglyceride [Mass/Vol] 165 mg/dL High 27-150 [facility] Comment on above: Performed By: #### C MP, THYR, HA1C, 33954-8 #### [facility] ([id number]) [address] [place] [address] No Panel Informationon 08-27 Interpretation and review of laboratory results Abnormal [facility] THYROID PROFILEon 08-27-2023 Free T4 [Mass/Vol] 0.50 ng/dL Low 0.61-1.60 [facility] Comment on above: Performed By: #### C MP, THYR, HA1C, 36834-1 #### [facility] ([id number]) [address] [place] [address] TSH 8.94 uIU/mL High 0.49-4.67 [facility] Comment on above: Performed By: #### C MP, THYR, HA1C, 03171-0 #### [facility] ([id number]) [address], [address] [place] [address] Thyroid profile includes TSH FT4on 08-27-2023 Free T4 [Mass/Vol] 0.50 ng/dL Low 0.61 - 1. 60 ng/dL [facility] TSH Qn 8.94 m[IU]/L High [facility] CBC AUTO DIFFon 10-19-2022 BASO # 0.1 103/ul Normal 0.0-0.1 [facility] Comment on above: Performed By: #### C BC #### [facility] [address] [place] [address] Dr. Alejandra Trotter Basophils/100 WBC (Bld) 0.9 % Normal 0.2-2.0 [facility] Comment on above: Performed By: #### C BC #### [facility] [address] [place] [address] Dr. Alejandra Trotter EO # 0.2 103/ul Normal 0.0-0.7 [facility] Comment on above: Performed By: #### C BC #### [facility] [address] [place] [address] Dr. Alejandra Trotter Eosinophils/100 WBC (Bld) 3.4 % Normal 0.9-7.0 [facility] Comment on above: Performed By: #### C BC #### [facility] [address] [place] [address] Dr. Alejandra Trotter Erythrocyte distribution width (RBC) [Ratio] 12.5 % Normal 11.0-15.0 [facility] Comment on above: Performed By: #### C BC #### [facility] [address] [place] [address] Dr. Alejandra Trotter Hematocrit (Bld) [Volume fraction] 45.3 % Normal 36.0-48.0 [facility] Comment on above: Performed By: #### C BC #### [facility] [address] [place] [address] Dr. Alejandra Trotter Hemoglobin (Bld) [Mass/Vol] 15.0 g/dL Normal 12.0-16.0 [facility] Comment on above: Performed By: #### C BC #### [facility] [address] [place] [address] Dr. Alejandra Trotter IG # 0.02 10e3/ul Normal 0.00-0.03 [facility] Comment on above: Performed By: #### C BC #### [facility] [address] [place] [address] Dr. Alejandra Trotter IG % 0.3 % Normal 0.0-0.5 [facility] Comment on above: Performed By: #### C BC #### [facility] [address] [place] [address] Dr. Alejandra Trotter LYMPH # 2.4 103/ul Normal 1.2-3.8 [facility] Comment on above: Performed By: #### C BC #### [facility] [address] [place] [address] Dr. Alejandra Trotter Lymphocytes/100 WBC (Bld) 41.2 % Normal 20.5-60.0 [facility] Comment on above: Performed By: #### C BC #### [facility] [address] [place] [address] Dr. Aljeandra Trotter MANUAL DIFF REQ NO Normal [facility] Comment on above: Performed By: #### C BC #### [facility] [address] [place] [address] Dr. Alejandra Trotter MCH (RBC) [Entitic mass] 29.1 pg Normal 26.7-34.0 [facility] Comment on above: Performed By: #### C BC #### [facility] [address] [place] [address] Dr. Alejandra Trotter MCHC (RBC) [Mass/Vol] 33.1 g/dL Normal 29.9-35.2 [facility] Comment on above: Performed By: #### C BC #### [facility] [address] [place] [address] Dr. Alejandra Trotter MCV (RBC) [Entitic vol] 87.8 fL Normal 81.0-99.0 [facility] Comment on above: Performed By: #### C BC #### [facility] [address] [place] [address] Dr. Alejandra Trotter MONO # 0.4 103/ul Normal 0.3-0.8 [facility] Comment on above: Performed By: #### C BC #### [facility] [address] [place] [address] Dr. Alejandra Trotter Monocytes/100 WBC (Bld) 6.7 % Normal 1.7-12.0 [facility] Comment on above: Performed By: #### C BC #### [facility] [address] [place] [address] Dr. Alejandra Trotter NEUT # 2.8 103/ul Normal 1.4-6.5 [facility] Comment on above: Performed By: #### C BC #### [facility] [address] [place] [address] Dr. Alejandra Trotter Neutrophils/100 WBC (Bld) 47.5 % Normal 43.0-75.0 [facility] Comment on above: Performed By: #### C BC #### [facility] [address] [place] [address] Dr. Aleajndra Trotter Platelet mean volume (Bld) [Entitic vol] 10.7 fL Normal 9.5-13.5 [facility] Comment on above: Performed By: #### C BC #### [facility] [address] [place] [address] Dr. Alejandra Trotter PLT 282 103/ul Normal 150-450 [facility] Comment on above: Performed By: #### C BC #### [facility] [address] [place] [address] Dr. Alejandra Trotter RBC 5.16 106/ul Normal 4.20-5.40 [facility] Comment on above: Performed By: #### C BC #### [facility] [address] [place] [address] Dr. Alejandra Trotter WBC 5.8 103/ul Normal 4.0-11.0 [facility] Comment on above: Performed By: #### C BC #### [facility] [address] [place] [address] Dr. Alejandra Trotter D-DIMERon 10-19-2022 D-DIMER 0.58 mg/L FEU Normal <=0.59 [facility] Comment on above: Performed By: #### D DIM #### [facility] [address] [place] [address] Dr. Alejandra Trotter D-DIMER COMMENTS SEE BELOW Normal [facility] Comment on above: Result Comment: Incr eases in D-Dimer concentration observed with thromboembolic events can be variable due to localization, size, and age of the thrombus. Therefore, a thromboembolic event cannot be diagnosed with certainty on the basis of the reference range. D-Dimers may also be elevated for a variety of disorders including: advanced age, , coronary disease, cancer, liver disease, infection, inflammation, hematoma, DIC, trauma, post-surgery, diabetes, thrombolytic or anticoagulant therapy, stress, and generalized hospitalization. Performed By: #### D DIM #### [facility] [address] [place] [address] Dr. Alejandra Trotter ER URINE PROFILEon 3 Bilirubin Ql (U) Negative Normal NEGATIVE [facility] Comment on above: Performed By: #### E RUR #### [facility] [address] [place] [address] Dr. Alejandra Trotter Clarity (U) CLEAR Normal CLEAR [facility] Comment on above: Performed By: #### E RUR #### [facility] [address] [place] [address] Dr. Alejandra Trotter Color (U) LT. YELLOW Normal YELLOW [facility] Comment on above: Performed By: #### E RUR #### [facility] [address] [place] [address] Dr. Alejandra HERNANDEZDiana A micrscopic examination will be performed if indicated. Normal [facility] Comment on above: Performed By: #### E RUR #### [facility] [address] [place] [address] Dr. Alejandra Trotter Glucose Ql (U) >1000 Abnormal NEGATIVE [facility] Comment on above: Performed By: #### E RUR #### [facility] [address] [place] [address] Dr. Alejandra Trotter Hemoglobin Ql (U) TRACE-LYSED Abnormal NEGATIVE [facility] Comment on above: Performed By: #### E RUR #### [facility] [address] [place] [address] Dr. Alejandra Trotter Ketones Ql (U) >=80 Abnormal NEGATIVE [place] Comment on above: Performed By: #### E RUR #### [facility] [address] [place] [address] Dr. Alejandra Trotter LEUKOCYTES Negative Normal NEGATIVE [facility] Comment on above: Performed By: #### E RUR #### [facility] [address] [place] [address] Dr. Alejandra Trotter Nitrite Ql (U) Negative Normal NEGATIVE [place] Comment on above: Performed By: #### E RUR #### [facility] [address] [place] [address] Dr. Alejandra Trotter pH (U) 5.0 [pH] Normal 5-9 [facility] Comment on above: Performed By: #### E RUR #### [facility] [address] [place] [address] Dr. Alejandra Trotter SPEC GRAVITY 1.020 Normal 1.005-<=1.025 [facility] Comment on above: Performed By: #### E RUR #### [facility] [address] [place] [address] Dr. Alejandra Trotter UA PROTEIN Negative Normal NEGATIVE/ TRACE [facility] Comment on above: Performed By: #### E RUR #### [facility] [address] [place] [address] Dr. Alejandra Trotter UR MICRO IND NOT INDICATED Normal [facility] Comment on above: Performed By: #### E RUR #### [facility] [address] [place] [address] Dr. Alejandra Trotter Urobilinogen Qn (U) 0.2 {Rui'U}/dL Normal 0.2 - 1. 0 [facility] Comment on above: Performed By: #### E RUR #### [facility] [address] [place] [address] Dr. Alejandra Trotter LACTATE/LACTIC ACIDon 2022 Lactate [Moles/Vol] 1.1 mmol/L Normal 0.4-2.0 [facility] Comment on above: Performed By: #### L ACT #### [facility] [address] [place] [address] Dr. Alejandra Trotter POINT OF CARE GLUCOSEon 10-03 Glucose [Mass/Vol] 322 mg/dL Critically high 74-106 [facility] Comment on above: Performed By: #### P OCGLUC #### [facility] [address] [address] [address] Alejandra Trotter PROF 14(COMP METB)on 023 Albumin [Mass/Vol] 3.6 g/dL Normal 3.4-5.0 [facility] Comment on above: Performed By: #### H STROPN, CMP #### [facility] [address] [place] [address] Dr. Alejandra Trotter Albumin/Globulin [Mass ratio] 0.9 {ratio} Normal [facility] Comment on above: Performed By: #### H STROPN, CMP #### [facility] [address] [place] [address] Dr. Alejandra Trotter ALP [Catalytic activity/Vol] 107 U/L Normal 46-116 [facility] Comment on above: Performed By: #### H STROPN, CMP #### [facility] [address] [address] [address] Alejandra Trotter ALT [Catalytic activity/Vol] 14 U/L Normal 14-59 [facility] Comment on above: Performed By: #### H STROPN, CMP #### [facility] [address] [place] [address] Dr. Alejandra Trotter Anion gap [Moles/Vol] 20.6 mmol/L Normal [facility] Comment on above: Performed By: #### H STROPN, CMP #### [facility] [address] [place] [address] Dr. Alejandra Trotter AST [Catalytic activity/Vol] 11 U/L Critically low 15-37 [facility] Comment on above: Performed By: #### H STROPN, CMP #### [facility] [address] [address] [address] Alejandra Trotter Bilirubin [Mass/Vol] 0.4 mg/dL Normal 0.2-1.0 [facility] Comment on above: Performed By: #### H STROPN, CMP #### [facility] [address] [address] [address] Alejandra Trotter Calcium [Mass/Vol] 9.0 mg/dL Normal 8.5-10.1 [facility] Comment on above: Performed By: #### H STROPN, CMP #### [facility] [address] [address] [address] Alejandra Trotter Chloride [Moles/Vol] 97 mmol/L Critically low 98-107 [facility] Comment on above: Performed By: #### H STROPN, CMP #### [facility] [address] [place] [address] Dr. Alejandra Trotter CO2 [Moles/Vol] 19.7 mmol/L Critically low 21.0-32.0 [facility] Comment on above: Performed By: #### H STROPN, CMP #### [facility] [address] [address] [address] Alejandra Trotter Creatinine [Mass/Vol] 0.83 mg/dL Normal 0.55-1.02 [facility] Comment on above: Performed By: #### H STROPN, CMP #### [facility] [address] [place] [address] Dr. Alejandra Trotter EGFR-AF PANAMANIAN >60 Normal >=60 [facility] Comment on above: Performed By: #### H STROPN, CMP #### [facility] [address] [place] [address] Dr. Alejandra Trotter EGFR-NON AF PANAMANIAN >60 Normal >=60 [facility] Comment on above: Performed By: #### H STROPN, CMP #### [facility] [address] [place] [address] Dr. Alejandra Trotter Globulin (S) [Mass/Vol] 4.2 g/dL Normal [facility] Comment on above: Performed By: #### H STROPN, CMP #### [facility] [address] [address] [address] Alejandra Trotter Glucose [Mass/Vol] 389 mg/dL Critically high 74-106 [facility] Comment on above: Performed By: #### H STROPN, CMP #### [facility] [address] [address] [address] Alejandra Trotter Potassium [Moles/Vol] 4.3 mmol/L Normal 3.5-5.1 [facility] Comment on above: Performed By: #### H STROPN, CMP #### [facility] [address] [address] [address] Alejandra Trotter Protein [Mass/Vol] 7.8 g/dL Normal 6.4-8.2 [facility] Comment on above: Performed By: #### H STROPN, CMP #### [facility] [address] [place] [address] Dr. Alejandra Trotter Sodium [Moles/Vol] 133 mmol/L Critically low 136-145 [facility] Comment on above: Performed By: #### H STROPN, CMP #### [facility] [address] [address] [address] Alejandra Trotter Urea nitrogen [Mass/Vol] 5.0 mg/dL Critically low 7.0-18.0 [facility] Comment on above: Performed By: #### H ANTONIOPN, CMP #### [facility] [address] [place] [address] Dr. Alejandra Trotter Urea nitrogen/Creatinine [Mass ratio] 6.0 mg/mg Normal [facility] Comment on above: Performed By: #### H STROPN, CMP #### [facility] [address] [place] [id number] Dr. Alejandra Trotter SYMPTOMATIC COVID-19 ANTIGEN on 10-19-2022 EUA Statement SEE BELOW Normal [facility] Comment on above: Result Comment: This test has not been FDA cleared or approved, but has been authorized by the FDA under an Emergency Use Authorization (EUA) for use by authorized laboratories certified under CLIA that meet the requirements to perform moderate or high complexity testing. This test has been authorized only for the detection of proteins from SARS-CoV-2, not for any other viruses or pathogens. The emergency use of this test is authorized for the duration of the declaration that circumstances exist justifying the authorization of emergency use of in vitro diagnostic tests for detection and/or diagnosis of Covid-19 under section 564(b)(1) of the Act, 21 U.S.C. 360bbb-3(b)(1), unless the declaration is terminated or authorization is revoked sooner. Performed By: #### C VDAGS #### [facility] [address] [place] [address] Dr. Alejandra Trotter SARS-CoV-2 (COVID-19) RNA NEENA+probe Ql (Unsp spec) Negative Normal NEGATIVE [facility] Comment on above: Performed By: #### C VDAGS #### [facility] [address] [place] [address] Dr. Alejandra Trotter TROPONIN, HIGH SENSITIVITYon 10-19-2022 HSTROP 4.6 pg/mL Normal 4.0-51.3 [facility] Comment on above: Result Comment: CUT- OFF POINTS HAVE BEEN ESTABLISHED BASED ON THE FOURTH UNIVERSAL DEFINITIONS OF MYOCARDIAL INFARCTION. THE UPPER REFERENCE LIMIT (URL) OF TROPONIN, DEFINED THE 99TH PERCENTILE OF cTnI DISTRIBUTION IN A REFERENCE POPULATION, HAS BEEN CONFIRMED THE DECISION THRESHOLD FOR [place] DIAGNOSIS. Performed By: #### H STROPN, CMP #### [facility] [address] [place] [address] Dr. Alejandra Trotter XR CHEST 2 Von 10-19-2022 XR CHEST 2 V EXAMINATION: XR CHEST 2 V HISTORY: Acute upper back pain, jaw pain, fatigue, nausea and diarrhea COMPARISON: X-rays 10/25/2015 TECHNIQUE: PA and lateral chest x-rays FINDINGS: The lung parenchyma is free of consolidation or infiltrate. No pneumothorax or pleural effusion. The cardiac, mediastinal and hilar contours are normal. The visualized osseous structures exhibit no gross abnormality. IMPRESSION: No acute cardiopulmonary abnormality. Electronically authenticated by: LORETA MACKENZIE Date: 2022-10-19 21:48 Normal [facility] COVID Quick Testingon 2020 Result Negative [facility] Other Vital Signs Date Time Vital Sign Value Performing Clinician Facility 10-13-2023 09:29-0400 Body height 170.2 cm Gomez Wolfe BLACKING MACHINE OPERATOR-TORPEDO SPECIALIST Work Phone: [facility] 10-13-2023 09:29-0400 Body mass index (BMI) [Ratio] 21.68 kg/m2 Gomez Wolfe BLACKING MACHINE OPERATOR-TORPEDO SPECIALIST Work Phone: [facility] 10-13-2023 09:29-0400 Body temperature 98.2 [degF] Gomez Wolfe BLACKING MACHINE OPERATOR-TORPEDO SPECIALIST Work Phone: [facility] 10-13-2023 09:29-0400 Body weight 62.78 kg Gomez Wolfe BLACKING MACHINE OPERATOR-TORPEDO SPECIALIST Work Phone: [facility] 10-13-2023 09:29-0400 Diastolic blood pressure 60 mm[Hg] Gomez Wolfe BLACKING MACHINE OPERATOR-TORPEDO SPECIALIST Work Phone: [facility] 10-13-2023 09:29-0400 Heart rate 110 /min Gomez Wolfe BLACKING MACHINE OPERATOR-TORPEDO SPECIALIST Work Phone: [facility] 10-13-2023 09:29-0400 SaO2% (BldA) [Mass fraction] 97 % Gomez Wolfe BLACKING MACHINE OPERATOR-TORPEDO SPECIALIST Work Phone: [facility] 10-13-2023 09:29-0400 Systolic blood pressure 100 mm[Hg] Gomez Wolfe BLACKING MACHINE OPERATOR-TORPEDO SPECIALIST Work Phone: [facility] 09-01-2023 08:22-0500 Body height 172.7 cm Gomez Wolfe BLACKING MACHINE OPERATOR-TORPEDO SPECIALIST Work Phone: [facility] 09-01-2023 08:22-0500 Body mass index (BMI) [Ratio] 23.11 kg/m2 Gomez Wolfe BLACKING MACHINE OPERATOR-TORPEDO SPECIALIST Work Phone: [facility] 09-01-2023 08:22-0500 Body temperature 97.5 [degF] Gomez Wolfe BLACKING MACHINE OPERATOR-TORPEDO SPECIALIST Work Phone: [facility] [employer] 09-01-2023 08:22-0500 Body weight 68.95 kg Gomez Wolfe APRN-LYNNETTE Work Phone: [facility] [employer] 09-01-2023 08:22-0500 Diastolic blood pressure 70 mm[Hg] Gomez Wolfe BLACKING MACHINE OPERATOR-TORPEDO SPECIALIST Work Phone: [facility] [employer] 09-01-2023 08:22-0500 Heart rate 98 /min Gomezniall Wolfe BLACKING MACHINE OPERATOR-TORPEDO SPECIALIST Work Phone: [facility] [employer] 09-01-2023 08:22-0500 SaO2% (BldA) [Mass fraction] 98 % Gomez Wolfe APRN-TORPEDO SPECIALIST Work Phone: [facility] [employer] 09-01-2023 08:22-0500 Systolic blood pressure 110 mm[Hg] Gomez Wolfe APRN-TORPEDO SPECIALIST Work Phone: [facility] [employer] 08-31-2023 13:04-0500 Body height 172.7 cm Ian Wilkes DO [facility] 08-31-2023 13:04-0500 Body mass index (BMI) [Ratio] 23.17 kg/m2 Ian Wilkes DO [facility] 08-31-2023 13:04-0500 Body weight 69.13 kg Ian Wilkes DO [facility] 08-31-2023 13:04-0500 Diastolic blood pressure 62 mm[Hg] Ian Wilkes DO [facility] 08-31-2023 13:04-0500 Systolic blood pressure 104 mm[Hg] Ian Wilkes DO [facility] 08-27-2023 10:52-0500 Body height 172.7 cm Gomez Wolfe APRN-TORPEDO SPECIALIST [facility] 08-27-2023 10:52-0500 Body mass index (BMI) [Ratio] 23.16 kg/m2 Gomez Wolfe APRN-LYNNETTE Work Phone: [employer] 08-27-2023 10:52-0500 Body temperature 98.6 [degF] Gomez Wolfe APRN-TORPEDO SPECIALIST [facility] 08-27-2023 10:52-0500 Body weight 69.08 kg Gomez Wolfe APRN-LYNNETTE [facility] 08-27-2023 10:52-0500 Diastolic blood pressure 60 mm[Hg] Gomez Wolfe APRN-TORPEDO SPECIALIST [facility] 08-27-2023 10:52-0500 Heart rate 100 /min Gomez Wolfe APRN-LYNNETTE [facility] 08-27-2023 10:52-0500 SaO2% (BldA) [Mass fraction] 97 % Gomez Wolfe APRN-LYNNETTE [facility] 08-27-2023 10:52-0500 Systolic blood pressure 100 mm[Hg] Gomez Wolfe APRN-LYNNETTE [facility] 07-25-2021 11:32-0500 Body height 175.3 cm Yvonne Raedy DO Work Phone: [employer] 07-25-2021 11:32-0500 Body mass index (BMI) [Ratio] 36.39 kg/m2 Yvonne Raedy DO Work Phone: [employer] 07-25-2021 11:32-0500 Body temperature 98.1 [degF] Yvonne Raedy DO Work Phone: [employer] 07-25-2021 11:32-0500 Body weight 111.77 kg Yvonne Raedy DO Work Phone: [employer] 07-25-2021 11:32-0500 Diastolic blood pressure 82 mm[Hg] Yvonne Raedy DO Work Phone: [employer] 07-25-2021 11:32-0500 Heart rate 82 /min Yvonne Kohler DO Work Phone: [employer] 07-25-2021 11:32-0500 Respiratory rate 16 /min Yvonne Kohler DO Work Phone: [employer] 07-25-2021 11:32-0500 SaO2% (BldA) [Mass fraction] 100 % Yvonne Kohler DO Work Phone: [employer] 07-25-2021 11:32-0500 Systolic blood pressure 126 mm[Hg] Yvonne Kohler DO Work Phone: [employer] 07-10-2021 12:30-0500 Body height 175.3 cm Loreta Juares Jr., DO Work Phone: [employer] 07-10-2021 12:30-0500 Body mass index (BMI) [Ratio] 36.48 kg/m2 Loreta Juares Jr., DO Work Phone: [employer] 07-10-2021 12:30-0500 Body temperature 98.01 [degF] Loreta Juares Jr., DO Work Phone: [employer] 07-10-2021 12:30-0500 Body weight 112.04 kg Loreta Juares Jr., DO Work Phone: [employer] 07-10-2021 12:30-0500 Diastolic blood pressure 74 mm[Hg] Loreta Juares Jr., DO Work Phone: [employer] 07-10-2021 12:30-0500 Systolic blood pressure 122 mm[Hg] Loreta Juares Jr., DO Work Phone: [employer] 05-02-2021 17:15-0400 Body height 171.45 cm Lenora Whitehead Other [facility] Other 05-02-2021 17:15-0400 Body mass index (BMI) [Ratio] 33.94 kg/m2 Lenora Whitehead Other [facility] Other 05-02-2021 17:15-0400 Body temperature 97.5 [degF] Lenora Whitehead Other [facility] Other 05-02-2021 17:15-0400 Body weight 99.79 kg Lenora Whitehead Other [facility] Other 05-02-2021 17:15-0400 Respiratory rate 18 /min Lenora Whitehead Other [facility] Other 05-02-2021 17:15-0400 SaO2% (BldA) [Mass fraction] 98 % Lenora Whitehead Other [facility] Other Encounters Encounter Date Encounter Type Care Provider Facility Start: 10-29-2023 End: 10-30-2023 ambulatory [facility] Start: 10-29-2023 End: 10-29-2023 Telephone encounter [facility] Vee [facility] Comment on above: Preventative Screeni ng Start: 10-19-2023 End: 10-19-2023 Orders Only Gomez L Norma BLACKING MACHINE OPERATOR-TORPEDO SPECIALIST Work Phone: [facility] Start: 10-13-2023 End: 10-14-2023 ambulatory [facility] Start: 10-13-2023 End: 10-13-2023 ambulatory [facility] Start: 10-13-2023 End: 10-13-2023 Office outpatient visit 25 minutes Gomez L Norma BLACKING MACHINE OPERATOR-TORPEDO SPECIALIST [facility] Phone[facility] Comment on above: Acquired hypothyroid ism (Primary Dx); Type 2 diabetes mellitus with hyperglycemia, without long-term current use of insulin ([facility]); Goiter; Smoking; History of Sjogren's disease ([facility]) Start: 10-08-2023 End: 10-08-2023 Emergency department patient visit [facility] Libby NORMA [facility] Start: 09-01-2023 End: 09-02-2023 ambulatory [facility] Start: 09-01-2023 End: 09-01-2023 ambulatory [facility] Start: 09-01-2023 End: 09-01-2023 Patient encounter status Gomez Libby [facility] BLACKING MACHINE OPERATOR-TORPEDO SPECIALIST Work Phone: [facility] [employer] Work Phone: Start: 09-01-2023 End: 09-01-2023 Periodic preventive med est patient 40-64yrs Gomez Souza Norma BLACKING MACHINE OPERATORbead Button Work Phone: [facility] Comment on above: Wellness examination (Primary Dx); Other specified diabetes mellitus with hyperglycemia, without long-term current use of insulin ([facility]); Graves disease; Acquired hypothyroidism; Special screening for malignant neoplasm of colon; Smoking Start: 08-31-2023 End: 08-31-2023 ambulatory [facility] Start: 08-31-2023 Encounter for gynecological examination (general) (routine) without abnormal findings [facility] Start: 08-31-2023 End: 08-31-2023 Patient encounter procedure [facility] DO Work Phone: [facility] Start: 08-31-2023 End: 08-31-2023 Periodic preventive med est patient 40-64yrs [facility] DO Work Phone: [facility] Comment on above: Well woman exam with routine gynecological exam (Primary Dx); Screening mammogram for breast cancer; Cervical smear, as part of routine gynecological examination; History of uterine fibroid; Menorrhagia with regular cycle; History of Graves' disease; History of cervical cancer; Smoker; Weight loss; History of Sjogren's disease ([facility]) Start: 08-31-2023 End: 09-01-2023 ambulatory IAN WILKES [facility] Start: 08-31-2023 End: 08-31-2023 Encounter for gynecological examination (general) (routine) without abnormal findings Ian Wilkes DO Work Phone: [facility] Start: 08-30-2023 Orders Only Gomez Wolfe BLACKING MACHINE OPERATOR-TORPEDO SPECIALIST Work Phone: [facility] Start: 08-27-2023 End: 08-28-2023 ambulatory [facility] Start: 08-27-2023 End: 08-27-2023 ambulatory [facility] Start: 08-27-2023 End: 08-27-2023 Office outpatient new 45 minutes Gomez Libby Norma BLACKING MACHINE OPERATOR-TORPEDO SPECIALIST Work Phone: [facility] Comment on above: Encounter for medica l examination to establish care (Primary Dx); Graves' disease; Acquired hypothyroidism; Sjogren syndrome, unspecified ([facility]); Goiter; Malignant neoplasm of cervix, unspecified site ([facility]); Hyperglycemia; Hyperlipidemia, unspecified hyperlipidemia type; Smoking; Nail fungus; Hyperpigmentation Start: 08-27-2023 End: 08-27-2023 Patient encounter status Gomez Souza Norma BLACKING MACHINE OPERATOR-TORPEDO SPECIALIST Work Phone: [facility] Work Phone: Start: 10-19-2022 End: 10-20-[address] DOCTOR CRAWFORD Facility:[facility] Start: 03-17-2022 End: 03-17-[address] DOCTOR CRAWFORD Facility:[facility] Start: 07-25-2021 End: 07-25-2021 Office outpatient visit 40 minutes Yvonne Kohler DO Work Phone: [facility] Comment on above: Nocturnal leg moveme nts (Primary Dx) Start: 07-10-2021 End: 07-10-2021 Office outpatient new 45 minutes Loreta Juares DO Work Phone: [facility] Comment on above: History of Sjogren's disease (Primary Dx); Hyperpigmentation of skin of cheek; Xerostomia; Dry mouth; Dry eyes; Telangiectasia of face; Hypothyroidism, unspecified type; Hyperglycemia; Basedow's disease; Keratoconjunctivitis sicca; Osteoarthritis of right hand, unspecified osteoarthritis type; Osteoarthritis of left foot, unspecified osteoarthritis type; Lumbar degenerative disc disease Start: 05-02-2021 (URG) Urgent Care Visit [facility] Procedures Date Procedure Procedure Detail Performing Clinician Start: 10-13-2023 Adult depression scr eening assessment Gomez Wolfe [employer] Work Phone: Start: 09-01-2023 Adult depression scr eening assessment Gomez Wolfe [employer] Work Phone: Start: 09-01-2023 Microalbumin [Mass/v olume] in Urine by Test strip Gomez Wolfe [employer] Work Phone: Start: 08-31-2023 Adult depression scr eening assessment Ian Wilkes DO Work Phone: Start: 08-31-2023 Microscopic observat ion [Identifier] in Cervix by Cyto stain Gomez Wolfe [employer] Work Phone: Start: 08-27-2023 Adult depression scr eening assessment Gomez Wolfe [employer] Work Phone: Start: 11-08-2020 Mammography Gomez Barajas ch [facility] Work Phone: Plan of Treatment Date Care Activity Detail Author Start: 08-31-2026 Screening for malignant neoplasm of cervix Pap Smear [facility] Start: 02-28-2025 Tobacco Counseling Tobacco Counseling [facility] Start: 10-12-2024 Adult BMI Screening Adult BMI Screening [facility] Start: 10-12-2024 Depression Screening Depression Screening [facility] Start: 10-12-2024 Tobacco Screening Tobacco Screening [facility] Start: 09-01-2024 Adult BMI Screening Adult BMI Screening [facility] Start: 09-01-2024 Depression Screening Depression Screening [facility] Start: 09-01-2024 Diabetic foot examination Diabetic Foot Exam [facility] Start: 09-01-2024 Tobacco Screening Tobacco Screening [facility] Start: 09-01-2024 Urine screening for protein Urine Microalbumin [facility] Start: 08-31-2024 Adult BMI Screening Adult BMI Screening [facility] Start: 08-31-2024 Depression Screening Depression Screening [facility] Start: 08-31-2024 Tobacco Screening Tobacco Screening [facility] Start: 08-27-2024 Adult BMI Screening Adult BMI Screening [facility] Start: 08-27-2024 Depression Screening Depression Screening [facility] Start: 08-27-2024 Tobacco Screening Tobacco Screening [facility] Start: 03-05-2024 Influenza vaccination Influenza Vaccine [facility] Start: 10-13-2023 End: 10-12-2024 US Thyroid gland Ultrasound thyroid Imaging Routine Goiter Expected: 10/13/2023, Expires: 10/12/2024 [facility] Work [facility]: Comment on above: Expected: 10/13/2023, Expires: Start: 10-13-2023 End: 10-13-2023 Patient encounter procedure 10/13/2023 8:40 AM EDT [facility] [address] [place] [phone] Gomez Wolfe, BLACKING MACHINE OPERATOR-TORPEDO SPECIALIST [address] [place] [address] [facility] Start: 09-15-2023 End: 09-15-2023 Patient encounter procedure 09/15/2023 9:30 AM EDT Office Visit [facility] [address] [place] [id number] Ian Wilkes DO [address] [place], [place] [id number] [facility] Start: 09-01-2023 End: 09-01-2023 Patient encounter procedure 09/01/2023 8:30 AM EST Office Visit [facility] [address] [place] [address] Gomez Wolfe, BLACKING MACHINE OPERATOR-TORPEDO SPECIALIST [address] [place] [address] [facility] Start: 08-31-2023 End: 08-31-2024 Cytopathology procedure, preparation of smear, genital source Pap Smear Pathology and Cytology Routine Cervical smear, as part of routine gynecological examination Expected: 08/31/2023 (Approximate), Expires: 08/31/2024 [facility] Comment on above: Expected: 08/31/2023 (Approximate), Expi res: 08/31/2024 Start: 08-31-2023 End: 08-31-2024 DBT Breast - bilateral screening Mammography screening bilateral with CAD Imaging Routine Screening mammogram for breast cancer Expected: 08/31/2023, Expires: 08/31/2024 [facility] Work [facility]: Comment on above: Expected: 08/31/2023, Expires: Start: 08-31-2023 End: 08-31-2024 US Pelvis transabdominal and transvaginal Ultrasound pelvic with transvaginal Imaging Routine History of uterine fibroid Menorrhagia with regular cycle Expected: 08/31/2023, Expires: 08/31/2024 [facility] Comment on above: Expected: 08/31/2023, Expires: Start: 08-31-2023 End: 08-31-2023 Patient encounter procedure 08/31/2023 1:00 PM EST Office Visit [facility] [address] [place] [phone] Ian Wilkes, DO [address] [place] [address] [facility] Start: 08-14-2023 DTaP,Tdap and Td Vaccines (2 - Td or Tdap) DTaP,Tdap and Td Vaccines (2 - Td or Tdap) [facility] Start: 03-05-2023 Influenza vaccination Influenza Vaccine [facility] Start: 07-16-2022 End: 07-16-2022 Patient encounter procedure 07/16/2022 Office Visit Rheumatology Mor Harmon, Loreta Mann, [address] [phone] [facility] Start: 06-23-2022 End: 07-10-2022 C-reactive protein C REACTIVE PROTEIN Lab Routine History of Sjogren's disease Hyperpigmentation of skin of cheek Xerostomia Dry mouth Dry eyes Telangiectasia of face Hypothyroidism, unspecified type Hyperglycemia 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, 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, unspecified osteoarthritis type Lumbar degenerative disc disease Expected: 06/23/2022 (Approximate), Expires: 07/10/2022 [facility] [employer] Comment on above: Expected: 06/23/2022 (Approximate), Expi res: 07/10/2022 Start: 06-23-2022 End: 07-10-2022 C3 COMPLEMENT C3 COMPLEMENT Lab Routine History of Sjogren's disease Hyperpigmentation of skin of cheek Xerostomia Dry mouth Dry eyes Telangiectasia of face Hypothyroidism, unspecified type Hyperglycemia 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, 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, unspecified osteoarthritis type Lumbar degenerative disc disease Expected: 06/23/2022 (Approximate), Expires: 07/10/2022 [employer] Comment on above: Expected: 06/23/2022 (Approximate), Expi res: 07/10/2022 Start: 06-23-2022 End: 07-10-2022 C4 COMPLEMENT C4 COMPLEMENT Lab Routine History of Sjogren's disease Hyperpigmentation of skin of cheek Xerostomia Dry mouth Dry eyes Telangiectasia of face Hypothyroidism, unspecified type Hyperglycemia 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, 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, unspecified osteoarthritis type Lumbar degenerative disc disease Expected: 06/23/2022 (Approximate), Expires: 07/10/2022 [facility] Comment on above: Expected: 06/23/2022 (Approximate), Expi res: 07/10/2022 Start: 06-23-2022 End: 07-10-2022 CK CK Lab Routine History of Sjogren's disease Hyperpigmentation of skin of cheek Xerostomia Dry mouth Dry eyes Telangiectasia of face Hypothyroidism, unspecified type Hyperglycemia 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, 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, unspecified osteoarthritis type Lumbar degenerative disc disease Expected: 06/23/2022 (Approximate), Expires: 07/10/2022 [facility] Comment on above: Expected: 06/23/2022 (Approximate), Expi res: 07/10/2022 Start: 06-23-2022 End: 07-10-2022 Complete blood count with white cell differential, automated CBC, EDIF, PLATELET Lab Routine History of Sjogren's disease Hyperpigmentation of skin of cheek Xerostomia Dry mouth Dry eyes Telangiectasia of face Hypothyroidism, unspecified type Hyperglycemia 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, 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, unspecified osteoarthritis type Lumbar degenerative disc disease Expected: 06/23/2022 (Approximate), Expires: 07/10/2022 [facility] Comment on above: Expected: 06/23/2022 (Approximate), Expi res: 07/10/2022 Start: 06-23-2022 End: 07-10-2022 Comprehensive metabolic 2000 panel - Serum or Plasma COMPREHENSIVE METABOLIC PANEL Lab Routine History of Sjogren's disease Hyperpigmentation of skin of cheek Xerostomia Dry mouth Dry eyes Telangiectasia of face Hypothyroidism, unspecified type Hyperglycemia 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, 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, unspecified osteoarthritis type Lumbar degenerative disc disease Expected: 06/23/2022 (Approximate), Expires: 07/10/2022 [facility] Comment on above: Expected: 06/23/2022 (Approximate), Expi res: 07/10/2022 Start: 06-23-2022 End: 07-10-2022 SEDIMENTATION RATE, AUTOMATED SEDIMENTATION RATE, AUTOMATED Lab Routine History of Sjogren's disease Hyperpigmentation of skin of cheek Xerostomia Dry mouth Dry eyes Telangiectasia of face Hypothyroidism, unspecified type Hyperglycemia 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, 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, unspecified osteoarthritis type Lumbar degenerative disc disease Expected: 06/23/2022 (Approximate), Expires: 07/10/2022 [facility] Comment on above: Expected: 06/23/2022 (Approximate), Expi res: 07/10/2022 Start: 06-23-2022 End: 07-10-2022 Urinalysis dipstick W Reflex Microscopic panel - Urine URINE MICROSCOPIC Fluids Routine History of Sjogren's disease Hyperpigmentation of skin of cheek Xerostomia Dry mouth Dry eyes Telangiectasia of face Hypothyroidism, unspecified type Hyperglycemia 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, 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, unspecified osteoarthritis type Lumbar degenerative disc disease Expected: 06/23/2022 (Approximate), Expires: 07/10/2022 [facility] Comment on above: Expected: 06/23/2022 (Approximate), Expi res: 07/10/2022 Start: 06-23-2022 End: 07-10-2022 Urinalysis, reagent strip without microscopy URINALYSIS, MACRO Fluids Routine History of Sjogren's disease Hyperpigmentation of skin of cheek Xerostomia Dry mouth Dry eyes Telangiectasia of face Hypothyroidism, unspecified type Hyperglycemia 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, 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, unspecified osteoarthritis type Lumbar degenerative disc disease Expected: 06/23/2022 (Approximate), Expires: 07/10/2022 [facility] Comment on above: Expected: 06/23/2022 (Approximate), Expi res: 07/10/2022 Start: 11-08-2021 Screening for malignant neoplasm of breast Mammogram [facility] Start: 09-05-2021 End: 09-05-2021 Telemedicine consultation with patient 09/05/2021 Telemedicine Neurology Yvonne Kohler F, DO [address] [place], [place] [id number] [facility] Start: 03-05-2021 Influenza vaccination INFLUENZA VACCINE (#1) [facility] [facility] Start: 2020 Colonoscopy COLORECTAL CANCER SCREENING DISCUSSION [facility] Start: 2020 Screening for malignant neoplasm of colon Colon Cancer Screening [address] [facility] Start: 2015 Fasting lipid profile LIPID SCREENING [facility] Start: 2015 Screening mammography MAMMOGRAM SCREENING DISCUSSION [facility] Start: 1996 Screening for malignant neoplasm of cervix [facility] Start: 1994 Third diphtheria, tetanus and acellular pertussis (DTaP) vaccination TDAP (ADULT) [facility] Start: 1993 Tetanus vaccination TETANUS [facility] Start: 1990 HIV screening HIV SCREENING DISCUSSION [facility] [facility] Start: 1980 COVID-19 VACCINE (1) COVID-19 VACCINE (1) [facility] Start: 1975 Glaucoma screening Diabetic Ophthalmology Exam [facility] Start: 1975 Hepatitis C antibody, confirmatory test HEPATITIS C VIRUS SCREENING [facility] Start: 1975 Thyroid stimulating hormone measurement TSH [facility] Start: 1975 Tobacco [address] Tobacco Counseling [facility] C peptide [Mass/volume] in Serum or Plasma C-peptide Lab Routine Other specified diabetes mellitus with hyperglycemia, without long-term current use of insulin ([facility]) 09/01/2023 4:[address] [facility] End: 09-01-2024 C-peptide C-peptide Lab Routine Other specified diabetes mellitus with hyperglycemia, without long-term current use of insulin ([facility]) 1 Occurrences starting 09/01/2023 until 09/01/2024 [employer] Work Phone: Comment on above: 1 Occurrences starting 09/01/2023 until 09/01/2024 [facility]olog[facility]ard [facility] Lab Routine Special screening for malignant neoplasm of colon Ordered: 09/01/2023 [facility] Comment on above: Ordered: 09/01/2023 End: 08-31-2024 High risk HPV w/agbbi High risk HPV w/gabbi Lab Routine Cervical smear, as part of routine gynecological examination 1 Occurrences starting 08/31/2023 until 08/31/2024 [facility] Comment on above: 1 Occurrences starting 08/31/2023 until 08/31/2024 Immunizations Immunization Date Immunization Notes Care Provider Ashlie be 10-14-2018 Toradol per 15 mg Lenora Dym ond Other [facility] Other 08-14-2013 tetanus toxoid, reduced diphtheria toxoid, and acellular pertussis vaccine, adsorbed Gomez Norma BLACKING MACHINE OPERATOR-TORPEDO SPECIALIST [facility] Payers Date Payer Category Payer Worker's Compensation [id number] 2023 Unknown [id number] 2023 Unknown PENELOPE [employer]OHNS ACCE SS (PPO) [id number] 2023-Present [phone] [address] [place] [address] [id number] 2022 Medicaid [id number] 2021 Unknown [employer] [id number] 2021-Present [address] [place] [address] [id number] 1975 Unknown [id number] 93 1975 Unknown [id number] 93 1975 Unknown [id number] 286 1975 Unknown [id number] 286 1975 Unknown [id number] 286 1975 Unknown [id number] 286 1975 Unknown [id number] 286 1975 Unknown [id number] [id number] 286 1975 Unknown [id number] 286 1975 Unknown [id number] [id number] 286 1975 Unknown [id number] [id number] 286 1975 Unknown [id number] 286 1959 Unknown [id number] Social History Date Type Detail Facility Start: 10-19-2016 Tobacco smoking stat [facility] Never smoked tobacco [facility] Other Start: 10-19-2016 End: 08-27-2023 Tobacco use and exposure Smokeless tobacco non-user [facility] Start: 07-10-2021 End: 10-13-2023 Alcohol intake Current drinker of alcohol (finding) [facility] Start: 10-19-2016 History SDOH Alcohol Comment consumed rarely [facility] Start: 1975 Sex Assigned At Not on file [facility] [employer] Start: 10-08-2020 End: 10-13-2023 Sex Assigned At [employer] Other Start: 08-27-2023 [facility] History of tobacco use Cigarette Smoker P [employer] [facility] Start: 10-08-2020 End: 08-27-2023 Cigarettes smoked current (pack per day) - Reported 1 [facility] Adolescent depressio n screening assessment 0 [facility] Medical Equipment Procedure Code Equipment Code Equipment Origin al Text Equipment Identifier Dates 1 strip by other route as needed for high blood sugar. [id number] Start: 09-01-2023 Use to check blo od sugar once daily [id number] Start: 09-01-2023 Clinical Notes 05-02-2021 to 10-29-2023 Telephone Encounter - Anyn Vee CMA - 10/29/2023 3:28 PM EDTTelephone Encounter - Anny Vee CMA - 10/29/2023 3:28 PM Lev Wolfe APRN-TORPEDO SPECIALIST - 10/13/2023 9:20 AM EDT Note Date & Type Note Facility 10-29-2023 Miscellaneous Notes Care Coordination Outreach performed to coordinate overdue appointments, testing, and/or follow-up care: Yes Audit/Outreach Date: October 29, 2023 Reason: Colorectal Cancer Screening Method: Telephone and Letter Outreach Attempt: First Outcome: Left Message and letter sent Next PCP Appointment: N/A Tests/Referrals Pended: N/A Resources/Education Provided: Additional Comments: Left message for patient to contact direct care supervisor. Patient is overdue with cologuard order. Will send letter to patient. documented in this encounter [facility] 10-29-2023 Telephone encounter Note Care Coordination Outreach performed to coordinate overdue appointments, testing, and/or follow-up care: Yes Audit/Outreach Date: October 29, 2023 Reason: Colorectal Cancer Screening Method: Telephone and Letter Outreach Attempt: First Outcome: Left Message and letter sent Next PCP Appointment: N/A Tests/Referrals Pended: N/A Resources/Education Provided: Additional Comments: Left message for patient to contact direct care supervisor. Patient is overdue with cologuard order. Will send letter to patient. [facility] 10-13-2023 History of Presen t illness Narrative [address] [place] [address] Patient: Anayeli Hidalgo Date of : 1975 Encounter Date: 10/13/2023 History of Present Illness: The patient is a 48 y.o. female, an established patient, and is here for Chief Complaint Patient presents with Diabetes . [facility] Pt requests that chart be classified as confidential. She went to file workman's comp claim recently for fingernail fungus diagnosed by dermatology and she was sent to ER since [employer] in [place] was closed. She did not want them to have access to her medical records, but this was done because she was being seen by ER MD. In future she would like to have this private and outside physicians to have restricted access. Pt is getting a new job started this week so will lose medical insurance until her 90 days of employment. She is not sure who her new insurance provider will be. 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 She should have more time now she will be starting on midnights. She has cut out simple sugars and pop and has lost more weight with intermittent fasting- she goes 1-3 days without eating at times. This is how she went from 280lbs to her current weight. She would like to manage her DM2 with this natural strategy only and not take any medication. Problem List Items Addressed This Visit Endocrine Hypothyroid - Primary Relevant Orders TSH (Completed) T4, free (Completed) Immune and Lymphatic History of Sjogren's disease ([facility]) Other Visit Diagnoses Type 2 diabetes mellitus with hyperglycemia, without long-term current use of insulin ([facility]) Relevant Orders Basic Metabolic Panel (Completed) Goiter Relevant Orders Ultrasound thyroid Smoking Past Medical, Family, and Social History Update: The following portions of the patient's history were reviewed and updated as appropriate: allergies, current medications, past family history, past medical history, past social history, past surgical history and problem list. Past Medical History: Diagnosis Date Cancer ([facility]) uterine cancer/ froze DDD (degenerative disc disease), lumbar Graves disease Mixed connective tissue disease ([facility]) Uterine cancer ([facility]) No past surgical history on file. Current Outpatient Medications Medication Sig Dispense Refill acetaminophen (TYLENOL EXTRA STRENGTH) 500 mg tablet Take 1 tablet (500 mg total) by mouth every 6 (six) hours as needed for pain. 30 tablet 0 ibuprofen (MOTRIN) 800 mg tablet Take 1 tablet (800 mg total) by mouth every 8 (eight) hours as needed for pain. 21 tablet 0 levothyroxine (SYNTHROID, LEVOTHROID) 50 MCG tablet Take 1 tablet (50 mcg total) by mouth in the morning. 30 tablet 1 terbinafine (LamISIL) 250 mg tablet blood sugar diagnostic strip 1 strip by other route as needed for high blood sugar. (Patient not taking: Reported on 10/13/2023) 100 strip 1 blood-glucose meter misc Use to check blood sugar once daily. (Patient not taking: Reported on 10/13/2023) 1 each 0 lancets (onetouch ultrasoft) misc Use to check blood sugar once daily (Patient not taking: Reported on 10/13/2023) 100 each 1 metFORMIN (GLUCOPHAGE) 500 mg tablet Take 1 tablet (500 mg total) by mouth in the morning and 1 tablet (500 mg total) in the evening. Take with meals. 180 tablet 1 No current facility-administered medications for this visit. (All medications reviewed and updated by provider since last office visit or hospitalization) Allergies: Patient has no known allergies. Tobacco History: Social History Tobacco Use Smoking Status Every Day Current packs/day: 1.00 Average packs/day: 1 pack/day for 20.0 years (20.0 ttl pk-yrs) Types: Cigarettes Smokeless Tobacco Never (If patient a smoker, smoking cessation counseling offered) Social History: Social History Substance and Sexual Activity Alcohol Use Yes Alcohol/week: 12.0 standard drinks of alcohol Types: 12 Cans of beer per week Review of Systems: Review of Systems Constitutional: Positive for appetite change, fatigue and unexpected weight change (100 lb weight loss since 2020, 4 lbs since last appt). Negative for activity change and fever. HENT: Positive for sore throat and trouble swallowing. Respiratory: Negative. Cardiovascular: Negative. Gastrointestinal: Negative. Endocrine: Negative for polydipsia and polyuria. Musculoskeletal: Positive for arthralgias and myalgias. Skin: Positive for color change (nails). Neurological: Negative. Psychiatric/Behavioral: Negative. Physical Exam: BP 100/60 (BP Site: Left Arm, BP Postition: Sitting) Pulse 110 Temp 36.8 C (98.2 F) (Tympanic) Ht 170.2 cm (5' 7 ) Wt 62.8 kg (138 lb 6.4 oz) LMP 10/08/2023 SpO2 97% BMI 21.68 kg/m Physical Exam Vitals reviewed. Constitutional: Appearance: Normal appearance. HENT: Head: Normocephalic and atraumatic. Right Ear: Tympanic membrane, ear canal and external ear normal. Left Ear: Tympanic membrane, ear canal and external ear normal. Nose: Comments: Thin and erythematous nasal mucosa right nare Mouth/Throat: Mouth: Mucous membranes are moist. Eyes: Pupils: Pupils are equal, round, and reactive to light. Neck: Thyroid: Thyromegaly present. Vascular: No carotid bruit. Cardiovascular: Rate and Rhythm: Regular rhythm. Tachycardia present. Heart sounds: Normal heart sounds. Pulmonary: Effort: Pulmonary effort is normal. Breath sounds: Normal breath sounds. Abdominal: General: Bowel sounds are normal. Palpations: Abdomen is soft. Tenderness: There is no abdominal tenderness. Musculoskeletal: Right lower leg: No edema. Left lower leg: No edema. Skin: General: Skin is warm. Capillary Refill: Capillary refill takes less than 2 seconds. Findings: Vesicular rash: to cheeks. Comments: Thickened yellow discolored 2nd and 3rd fingernails right hand Neurological: General: No focal deficit present. Mental Status: She is alert and oriented to person, place, and time. Psychiatric: Mood and Affect: Mood normal. Behavior: Behavior normal. Assessment and Plan: Anayeli was seen today for diabetes. Diagnoses and all orders for this visit: Acquired hypothyroidism - TSH; Future - T4, free; Future Type 2 diabetes mellitus with hyperglycemia, without long-term current use of insulin ([facility]) - Basic Metabolic Panel; Future Goiter - Ultrasound thyroid; Future Smoking History of Sjogren's disease ([facility]) Other orders - metFORMIN (GLUCOPHAGE) 500 mg tablet; Take 1 tablet (500 mg total) by mouth in the morning and 1 tablet (500 mg total) in the evening. Take with meals. Follow-up: It was highly recommended that patient start checking her blood sugars at least once a day fasting and then 1-2 times per week 2 hours postprandial. She should report any hypoglycemia or blood sugars over 400 to provider through [employer]. Mechanism of action and side effects of metformin were discussed and patient education sheet was printed. She is willing to start the metformin but she is not willing to start insulin or other diabetic medications at this time. It was discussed that weight loss and diet changes at this point may not get her A1c at goal. Her request to have confidential chart was forwarded to central office worker. It was recommended that pt see endocrine specialist and ENT for DMII and goiter. She is not able to do this since she will be losing insurance for several months. She would like thyroid US in meantime and once she has health insurance back, she plans on seeing these specialists. Pt is not willing to stop smoking despite knowing negative health consequences. F/u in 3 mo or as soon as she has insurance again. SVETA PAL APRN-CNP 10/18/23 1254 documented in this encounter [facility] 09-01-2023 History of Presen t illness Narrative [address] [place] [address] Patient: Anayeli Hidalgo Date of : 1975 Encounter Date: 09/01/2023 History of Present Illness: The patient is a 48 y.o. female, an established patient, and is here for Chief Complaint Patient presents with Annual Exam . HPI Patient is here for a wellness exam and to discuss recent labs and new diagnosis of diabetes. She needs a wellness form signed through work to get a discount on her insurance. She saw Dr. Wilkes this week for her yearly Pap and mammogram and provider ordered an ultrasound for her history of cervical cancer. She is to return to the clinic in 2 weeks. Patient states she expected the diabetes diagnosis because she has been having a poor diet at work in eating constant sugary snacks. She states she has a family history of type 1 and type 2 diabetes. She spoke of the diabetes diagnosis a little with her tapper bit provider yesterday. Problem List Items Addressed This Visit Endocrine Acquired hypothyroidism Relevant Medications levothyroxine (SYNTHROID, LEVOTHROID) 50 MCG tablet Other Visit Diagnoses Wellness examination - Primary Other specified diabetes mellitus with hyperglycemia, without long-term current use of insulin ([facility]) Relevant Orders C-peptide Microalbumin - Albumin: Creatinine Urine Ratio Graves disease Relevant Medications levothyroxine (SYNTHROID, LEVOTHROID) 50 MCG tablet Special screening for malignant neoplasm of colon Relevant Orders Cologuard [facility] Smoking Past Medical, Family, and Social History Update: The following portions of the patient's history were reviewed and updated as appropriate: allergies, current medications, past family history, past medical history, past social history, past surgical history and problem list. Past Medical History: Diagnosis Date Cancer ([facility]) uterine cancer/ froze DDD (degenerative disc disease), lumbar Graves disease Mixed connective tissue disease ([facility]) Uterine cancer ([facility]) No past surgical history on file. Current Outpatient Medications Medication Sig Dispense Refill acetaminophen (TYLENOL EXTRA STRENGTH) 500 mg tablet Take 1 tablet (500 mg total) by mouth every 6 (six) hours as needed for pain. 30 tablet 0 ibuprofen (MOTRIN) 800 mg tablet Take 1 tablet (800 mg total) by mouth every 8 (eight) hours as needed for pain. 21 tablet 0 blood sugar diagnostic strip 1 strip by other route as needed for high blood sugar. 100 strip 1 blood-glucose meter misc Use to check blood sugar once daily. 1 each 0 lancets (onetouch ultrasoft) misc Use to check blood sugar once daily 100 each 1 levothyroxine (SYNTHROID, LEVOTHROID) 50 MCG tablet Take 1 tablet (50 mcg total) by mouth in the morning. 30 tablet 1 No current facility-administered medications for this visit. (All medications reviewed and updated by provider since last office visit or hospitalization) Allergies: Patient has no known allergies. Tobacco History: Social History Tobacco Use Smoking Status Every Day Packs/day: 1.00 Years: 20.00 Additional pack years: 0.00 Total pack years: 20.00 Types: Cigarettes Smokeless Tobacco Never (If patient a smoker, smoking cessation counseling offered) Social History: Social History Substance and Sexual Activity Alcohol Use Yes Alcohol/week: 12.0 standard drinks of alcohol Types: 12 Cans of beer per week Review of Systems: Review of Systems Constitutional: Positive for appetite change, fatigue and unexpected weight change (100 lb weight loss since 2020). Negative for activity change and fever. HENT: Positive for sore throat and trouble swallowing. Respiratory: Negative. Cardiovascular: Negative. Gastrointestinal: Negative. Endocrine: Negative for polydipsia and polyuria. Musculoskeletal: Positive for arthralgias and myalgias. Neurological: Negative. Psychiatric/Behavioral: Negative. Physical Exam: BP 110/70 (BP Site: Left Arm, BP Postition: Sitting) Pulse 98 Temp 36.4 C (97.5 F) (Tympanic) Ht 172.7 cm (5' 8 ) Wt 68.9 kg (152 lb) LMP 08/17/2023 (Approximate) SpO2 98% BMI 23.11 kg/m Physical Exam Vitals reviewed. Constitutional: Appearance: Normal appearance. HENT: Head: Normocephalic and atraumatic. Neck: Thyroid: Thyromegaly present. Vascular: No carotid bruit. Cardiovascular: Rate and Rhythm: Normal rate and regular rhythm. Heart sounds: Normal heart sounds. Pulmonary: Effort: Pulmonary effort is normal. Breath sounds: Normal breath sounds. Abdominal: General: Bowel sounds are normal. Palpations: Abdomen is soft. Tenderness: There is no abdominal tenderness. Musculoskeletal: Right lower leg: No edema. Left lower leg: No edema. Skin: General: Skin is warm. Capillary Refill: Capillary refill takes less than 2 seconds. Findings: Vesicular rash: to cheeks. Comments: Thickened yellow discolored 2nd and 3rd fingernails right hand Neurological: General: No focal deficit present. Mental Status: She is alert and oriented to person, place, and time. Psychiatric: Mood and Affect: Mood normal. Behavior: Behavior normal. Assessment and Plan: Anayeli was seen today for annual exam. Diagnoses and all orders for this visit: Wellness examination Other specified diabetes mellitus with hyperglycemia, without long-term current use of insulin ([facility]) - C-peptide; Future - Microalbumin - Albumin: Creatinine Urine Ratio; Future Graves disease Acquired hypothyroidism Special screening for malignant neoplasm of colon - [facility]olog[facility]ard [facility] Smoking Other orders - levothyroxine (SYNTHROID, LEVOTHROID) 50 MCG tablet; Take 1 tablet (50 mcg total) by mouth in the morning. - blood sugar diagnostic strip; 1 strip by other route as needed for high blood sugar. - blood-glucose meter misc; Use to check blood sugar once daily. - lancets (onetouch ultrasoft) misc; Use to check blood sugar once daily Follow-up: Obtain C-peptide to further classify pt type 1 vs. 2 DM though suspect type 2. Will get pt set up with BG monitor and supplies and advised to check FBG daily every am and bring diary to next appt. She is resistant to start any medication including insulin at this time because she first wants to know if this is type 1 or 2 diabetes and if she can 'do it on her own' with diet changes and continued weight loss to treat her DM. Disease processes were explained to pt and dangers of not starting treatment were reviewed including possible hospitalization. She understands and would still like to hold off treatment at this time. Fortunately we did refer her to endocrinology for her goiter and thyroid problems so she was advised to add this to the treatment plan for her diabetes. Start 50 mcg of Synthroid for her hypothyroidism. She is hesitant on doing any lower dose as a lower dose made her nauseated in the past. She should take the Synthroid on an empty stomach an hour before any meals or other medicines with just water. Patient's health maintenance was also discussed including colorectal cancer screening, breast cancer screening, immunizations. She is not interested in any immunizations at this time. Patient is not ready to stop smoking at this time despite knowing negative health consequences. It was recommended the patient obtain a diabetic eye exam and start statin medication. She will inquire with insurance about a dilated exam as she already had her yearly eye exam but did not have a dilated exam. She is not interested in starting medications at this time but will readdress at her follow-up in 1 month. Return to office in 1 month and bring blood sugar diary and will recheck her thyroid function labs and BMP for fasting sugar and again recommend treatment for the diabetes. New problem addressed diabetes along with wellness exam - see separate note for DM foot exam. Progression of thyroid symptoms also addressed with medication treatment separate than that of health maintenance. SVETA PAL APRN-CNP 09/01/23 9468 Disease process and teaching for diabetes types 1 and 2 was discussed with patient in length with greater than 50% of it Education. Treatment options were discussed briefly as well. Diabetic foot exam: Visual exam was bunion right . Left: Pulses Dorsalis Pedis: present Vibratory sensation normal Filament test present Right: Pulses Dorsalis Pedis: present Vibratory sensation normal Filament test present SVETA Pal 09/01/23 1631 documented in this encounter [facility] 08-31-2023 History of Presen t illness Narrative Subjective Patient ID: Anayeli Hidalgo is a 48 y.o. female who is here today for her annual well-woman exam. Patient does have a history of cryotherapy and states that she did previously have cervical cancer . Patient's menstrual cycles are regular every 28 days and last 6-8 days, but are incredibly heavy. She states that she does on occasion saturate an adult diaper. Patient is not interested in hormonal management of her menses, but would like to discuss treatment options. She was previously diagnosed with a fibroid 2 years ago. She would also like to have that assessed to see if anything has changed. Patient has an over 100 lb weight loss since her last visit. She states this was intentional as she has been doing intermittent fasting. Patient was recently seen in the ER as she thought she was having a heart attack , but was told that she was prediabetic. She did follow-up with a primary care provider nurse practitioner Norma who has ordered additional laboratory testing. She does have that follow-up for review of labs scheduled for tomorrow. Patient was previously treated for Graves disease with radio ablation. She has not currently been taking her Synthroid. Patient was given metformin by the ER, but she has not started that medication as yet either. 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 Chief Complaint: Well-woman exam, needs Pap smear, heavy periods, history of fibroid Menstrual History: OB History 3 Para 2 Term 2 AB Living SAB IAB Ectopic Multiple Live Births Patient's last menstrual period was 08/17/2023 (approximate). The following portions of the patient's history were reviewed and updated as appropriate: allergies, current medications, past family history, past medical history, past social history, past surgical history, problem list, and medication reconciliation was completed including current medication and post discharge medication. Review of Systems Constitutional: negative Respiratory: negative Cardiovascular: negative Gastrointestinal: 100 lb weight loss Genitourinary: Heavy painful periods history of fibroid history of cervical cancer needs Pap smear Hematologic/lymphatic: negative Neurological: negative Behavioral/Psych: negative Allergic/Immunologic: negative Endocrine: Weight loss, was told that she is prediabetic, history of Graves disease not currently on Synthroid Objective BP 104/62 Ht 172.7 cm (5' 8 ) Wt 69.1 kg (152 lb 6.4 oz) LMP 08/17/2023 (Approximate) BMI 23.17 kg/m General: alert, appears stated age, and cooperative Heart: regular rate and rhythm, S1, S2 normal, no murmur, click, rub or gallop Lungs: clear to auscultation bilaterally Abdomen: soft, non-tender, without masses or organomegaly Vulva: normal Vagina: no palpable nodules, there is yeast medication throughout vagina as patient forgot she had an appointment today we did clear with large swabs to the best of our ability Cervix: no cervical motion tenderness and moderate bleeding follow-up Pap smear Uterus: non-tender, normal shape and consistency Adnexa: no mass, fullness, tenderness Breast: Symmetrical in appearance with no palpable nodules or visible lesions Assessment 1. Well woman exam with routine gynecological exam 2. Screening mammogram for breast cancer 3. Cervical smear, as part of routine gynecological examination 4. History of uterine fibroid 5. Menorrhagia with regular cycle Plan 1. Pap smear collected today will contact patient with results 2. Mammogram ordered 3. Pelvic ultrasound ordered 4. We did review briefly with patient today some of the abnormalities noted in labs ordered by her primary care provider. We stressed the importance of her keeping her appointment tomorrow. We discussed probable need for an endocrinology consult. Discussed patient's glucose being 478 and her hemoglobin A1c being 13.8. Patient has history of autoimmune disorders with previous diagnoses of Graves disease and Sjogren's disease. We did discuss that she could possibly be truly type 1 diabetic versus type 2 diabetic. Patient stated that she feels that she has simply been eating too much sugar lately with her intermittent fasting type of diet. We did discuss that a sugar of 478 and hemoglobin A1c of 13.8 is indicative of a diagnoses of diabetes not excessive caloric intake. Patient states that she will keep her appointment tomorrow with her primary care provider to further review these labs. documented in this encounter [facility] 08-27-2023 History of Presen t illness Narrative [address] [place] [address] Patient: Anayeli Hidalgo Date of : 1975 Encounter Date: 08/27/2023 History of Present Illness: The patient is a 48 y.o. female, an established patient, and is here for Chief Complaint Patient presents with new patient . HPI Pt is a new pt here to establish care. She was a pt of Halima Garcia - zeenat seen in 2020. After than time she unfortunately lost insurance so was unable to have a provider. She was also seeing rheumatology in 2020 for Sjogren syndrome. She never did start treatment however. She was also seeing OBGYN for history of cervical cancer. Before this she was living in [place] and was seeing specialists there as well. Patient is a with 2 miscarriages and full-term twins. Patient has a history of Graves disease with radiation treatment and Synthroid but unfortunately has not had her Synthroid in the last 2 years since losing insurance. In the last several months she has noticed an increase in dysphagia and hair loss and swelling in her neck area. She went to the ER through the [facility] in July for chest pain and was told she may have prediabetes but her A1c she thought was 5% so she did not start the metformin that was offered to her and she has been doing intermittent fasting to try to treat this. Patient is also complaining of a nail infection and losing her fingernails. She would like a referral to dermatology for this and discoloration in her face. Now that she has insurance through a new job, she is working at a [employer] locally- [employer], she is willing to go back to a specialist for her thyroid and Sjogrens. PT is a daily smoker and drinks at least 1 pot of coffee per day. Problem List Items Addressed This Visit Endocrine Acquired hypothyroidism Relevant Orders Comprehensive metabolic panel (Completed) Thyroid profile includes TSH FT4 (Completed) [facility] [place], [place] Graves' disease Relevant Orders [facility] [place] Genitourinary Malignant neoplasm of cervix ([facility]) Other Hyperglycemia Relevant Orders Hemoglobin A1c (Completed) Other Visit Diagnoses Encounter for medical examination to establish care - Primary Sjogren syndrome, unspecified ([facility]) Goiter Hyperlipidemia, unspecified hyperlipidemia type Relevant Orders Lipid profile (Completed) Smoking Nail fungus Hyperpigmentation Past Medical, Family, and Social History Update: The following portions of the patient's history were reviewed and updated as appropriate: allergies, current medications, past family history, past medical history, past social history, past surgical history and problem list. Past Medical History: Diagnosis Date Cancer ([facility]) uterine cancer/ froze DDD (degenerative disc disease), lumbar Graves disease Mixed connective tissue disease ([facility]) History reviewed. No pertinent surgical history. Current Outpatient Medications Medication Sig Dispense Refill acetaminophen (TYLENOL EXTRA STRENGTH) 500 mg tablet Take 1 tablet (500 mg total) by mouth every 6 (six) hours as needed for pain. 30 tablet 0 ibuprofen (MOTRIN) 800 mg tablet Take 1 tablet (800 mg total) by mouth every 8 (eight) hours as needed for pain. 21 tablet 0 levothyroxine (SYNTHROID, LEVOTHROID) 100 MCG tablet Take 0.5 tablets (50 mcg total) by mouth daily. (Patient not taking: Reported on 02/21/2021) 30 tablet 2 No current facility-administered medications for this visit. (All medications reviewed and updated by provider since last office visit or hospitalization) Allergies: Patient has no known allergies. Tobacco History: Social History Tobacco Use Smoking Status Every Day Packs/day: 1.00 Years: 20.00 Additional pack years: 0.00 Total pack years: 20.00 Types: Cigarettes Smokeless Tobacco Never (If patient a smoker, smoking cessation counseling offered) Social History: Social History Substance and Sexual Activity Alcohol Use Yes Alcohol/week: 12.0 standard drinks of alcohol Types: 12 Cans of beer per week Review of Systems: Review of Systems Constitutional: Positive for appetite change, fatigue and unexpected weight change (Significant weight loss from intermittent fasting). Negative for activity change. HENT: Positive for sore throat and trouble swallowing. Respiratory: Negative. Cardiovascular: Negative. Gastrointestinal: Negative. Musculoskeletal: Positive for arthralgias and myalgias. Neurological: Negative. Psychiatric/Behavioral: Negative. Physical Exam: BP 100/60 (BP Site: Left Arm, BP Postition: Sitting) Pulse 100 Temp 37 C (98.6 F) (Oral) Ht 172.7 cm (5' 8 ) Wt 69.1 kg (152 lb 4.8 oz) SpO2 97% BMI 23.16 kg/m Physical Exam Vitals reviewed. Constitutional: Appearance: Normal appearance. HENT: Head: Normocephalic and atraumatic. Right Ear: Tympanic membrane, ear canal and external ear normal. Left Ear: Hearing, ear canal and external ear normal. A middle ear effusion is present. Nose: Rhinorrhea present. Mouth/Throat: Mouth: Mucous membranes are moist. Eyes: Pupils: Pupils are equal, round, and reactive to light. Neck: Thyroid: Thyromegaly present. Cardiovascular: Rate and Rhythm: Normal rate and regular rhythm. Heart sounds: Normal heart sounds. Pulmonary: Effort: Pulmonary effort is normal. Breath sounds: Normal breath sounds. Abdominal: General: Bowel sounds are normal. Palpations: Abdomen is soft. Tenderness: There is no abdominal tenderness. Musculoskeletal: Right lower leg: No edema. Left lower leg: No edema. Skin: General: Skin is warm. Capillary Refill: Capillary refill takes less than 2 seconds. Findings: Rash present. Rash is vesicular (to cheeks). Comments: Thickened yellow discolored 2nd and 3rd fingernails right hand Neurological: General: No focal deficit present. Mental Status: She is alert and oriented to person, place, and time. Psychiatric: Mood and Affect: Mood normal. Behavior: Behavior normal. Assessment and Plan: Anayeli was seen today for new patient. Diagnoses and all orders for this visit: Encounter for medical examination to establish care Graves' disease - [facility] [place], [place]; Future Acquired hypothyroidism - Comprehensive metabolic panel; Future - Thyroid profile includes TSH FT4; Future - [facility] [place], [place]; Future Sjogren syndrome, unspecified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
--- NOTE | 2024-10-15 05:52 | PC.NURSE ---
this patient complains of lower leg swelling on set 3 days ago. this patient was recent admission to this hospital on 10/09/2024. this patient voices no other complaints and shows no signs of distress
--- NOTE | 2024-10-15 06:05 | ECG_ITS ---
[facility] Test Date: 2024-10-15 Pat Name: JUMA HIRSCH Department: Room: - Gender: Female [employer]: : 1975 Requested By: Pranav Nielsen Order Number: [id number] Reading MD: JAX VILLAVICENCIO M.D. Measurements Intervals [place] Rate: 82 P: 67 LA: 150 QRS: 82 QRSD: 84 T: 63 QT: 390 QTc: 428 Interpretive Statements 1100 Sinus rhythm 9110 normal ECG Compared to ECG 10/09/2024 20:29:19 QT interval has shortened Electronically Signed On 10-15-2024 8:58:39 EDT by JAX VILLAVICENCIO M.D.
[2024-10-15 06:17] VITALS: O2SAT 97
[2024-10-15 06:22] VITALS: BP 106/65; PULSE 86; O2SAT 100
[2024-10-15 06:30] VITALS: BP 104/69; PULSE 87; O2SAT 100
[2024-10-15 06:37] LABS: Basophils Percent Auto 0.9 % (0.2-2.0); Eosinophils Absolute Auto 0.1 10^3/uL (0.0-0.7); Eosinophils Percent Auto 1.4 % (0.9-7.0); Hematocrit 35.9 % (36.0-48.0); Hemoglobin 11.9 g/dL (12.0-16.0); Immature Granulocytes Abs Auto 0.03 10^3/uL (0.00-0.03); Immature Granulocytes Pct Auto 0.7 % (0.0-0.5); Lymphocytes Absolute Auto 1.4 10^3/uL (1.2-3.8); Lymphocytes Percent Auto 33.3 % (20.5-60.0); Mean Corpuscular HGB Conc 33.1 g/dL (29.9-35.2); Mean Corpuscular Hemoglobin 33.2 pg (26.7-34.0); Mean Corpuscular Volume 100.3 fL (81.0-99.0); Mean Platelet Volume 10.4 fL (9.5-13.5); Monocytes Absolute Auto 0.4 10^3/uL (0.3-0.8); Monocytes Percent Auto 9.6 % (1.7-12.0); Neutrophils Absolute Auto 2.3 10^3/uL (1.4-6.5); Neutrophils Percent Auto 54.1 % (43.0-75.0); Platelet Count 183 10^3/uL (150-450); Red Blood Count 3.58 10^6/uL (4.20-5.40); Red Cell Distribution Width 13.2 % (11.0-15.0); White Blood Count 4.3 10^3/uL (4.0-11.0)
--- NOTE | 2024-10-15 06:42 | ED.GENADUL1 ---
HPI HPI - General Adult General Chief complaint: Extremity Problem, Nontraumatic Stated complaint: Swelling Time Seen by Provider: 10/15/24 05:56 Source: patient Mode of arrival: Wheelchair Limitations: no limitations History of Present Illness HPI narrative: cc - BL LE edema Pt complains of progressively worsening and spreading LE edema that started 3-4 days ago. The edema began in her feet prior to her admission on 10/11/24 and has now spread up to her thighs and into her lower back. She complains of pain in the thighs. She was diagnosed with DKA after years of unteated diabetes - she apparently had no insurance and had no PCP. She told me that since the admission, she has been taking lantus and checking her glucose - last night it was around 300 and this morning, prior to arrival at our ED, it was around 200 . She denies any palpitations, chest pain, shortness of breath, fever, chills, abdominal pain or other symptoms except for feeling kind of run down . Related Data Home Medications ?Medication ?Instructions ?Recorded ?Confirmed glipizide 2.5 mg tablet, extended 2.5 mg PO DAILY 10/15/24 10/15/24 release 24 hr metformin 500 mg tablet,extended 500 mg PO DAILY 10/15/24 10/15/24 release 24 hr nicotine 21 mg/24 hr daily 1 patch transdermal Q24H 10/15/24 10/15/24 transdermal patch Previous Rx's ?Medication ?Instructions ?Recorded insulin human U-100 NPH-regulr 25 unit (0.25 mL) subcut BID 30 10/11/24 70-30 mix 100 unit/mL subcutaneous days #15 mL susp (Novolin 70/30 U-100 Insulin) metronidazole 250 mg tablet 500 mg (2 x 250 mg) PO BID 6 days 10/11/24 #24 tabs Allergies Allergy/AdvReac Type Severity Reaction Status Date / Time No Known Drug Allergies Allergy Verified 10/15/24 05:42 Opioid HPI Opioid Management Most Recent Opioid Data: Last Pain Scale 1 10/11/24 11:10 10/11/24 Last Pain Assessment 10/11/24 11:24 Last ORT Total Score 1 10/10/24 01:14 10/10/24 Last ORT Risk Category Low Risk 10/10/24 01:14 10/10/24 Ur Phencyclidine Scrn Negative (NEGATIVE) 10/09/24 20:02 [facility] Medical History Twin delivery by ?O30.009 - Twin , unspecified number of placenta and unspecified number of amniotic sacs, unspecified trimester (ICD-10) delivery delivered ?O82 - Encounter for delivery without indication (ICD-10) Smoker ?F17.200 - Nicotine dependence, unspecified, uncomplicated (ICD-10) Weight loss, unintentional ?R63.4 - Abnormal weight loss (ICD-10) Sjogren syndrome ?M35.00 - Sjogren syndrome, unspecified (ICD-10) Diabetes ?E11.9 - Type 2 diabetes mellitus without complications (ICD-10) Family History Mother Family history of diabetes mellitus Family history of myocardial infarction Family history of stroke Unknown Family history of hypertension Social History Within the past year, how often did you have a drink containing alcohol: monthly or less Smoking status: Light tobacco smoker Non-prescribed substance use: denies use Previous occupational history: [employer] Known occupational exposures/hazards: No Highest level of school completed/degree received: high school graduate Are you now , , , , never or living with a partner: Little interest or pleasure in doing things: not at all Feeling down, depressed, or hopeless: not at all Do you think of yourself as: straight/heterosexual Gender Identity: female Exam Narrative Exam Narrative: Nurses notes and vital signs reviewed and patient is not hypoxic. afebrile General: In no apparent distress. Skin: Warm, dry, no pallor noted. No rash. Head: Normocephalic, atraumatic. Eye: Pupils are equal, round and EOMI. No scleral icterus. Ears, Nose, Mouth, and Throat: Oral mucosa is moist Cardiovascular: Regular Rate and Rhythm without murmur, gallop or rub. Respiratory: No accessory muscle use or respiratory distress. Lungs are clear to auscultation, no wheezing, rales or rhonchi Back: No midline thoracic or lumbar vertebral tenderness. No CVA tenderness Musculoskeletal: normal ROM, no calf or popliteal tenderness. BL pitting 1-2+ lower extremity edema that extends from both feet up into both thighs proximally. She also has some pitting edema in the lower back and buttocks area GI: Abdomen is soft, non-distended. Normal bowel sounds. No masses appreciated. No tenderness to palpation. No rebound, guarding, or rigidity noted. Neurological: A&O x4. No cranial nerve dysfunction observed. No truncal ataxia. Moves all extremities. Sensation intact. Psychiatric: Cooperative and interactive. Normal mood and affect. Constitutional Vital Signs, click to edit/add: Last Vital Signs Temp 98 F 10/15/24 05:42 Pulse 85 10/15/24 05:42 Resp 18 10/15/24 05:42 BP 102/60 10/15/24 05:42 Pulse Ox 100 10/15/24 05:42 O2 Del Method Room Air 10/15/24 05:42 Course Vital Signs Vital signs: Vital Signs Temperature 98 F 10/15/24 05:42 Pulse Rate 85 10/15/24 05:42 Respiratory Rate 18 10/15/24 05:42 Blood Pressure 102/60 10/15/24 05:42 Pulse Oximetry 100 10/15/24 05:42 Oxygen Delivery Method Room Air 10/15/24 05:42 Temperature 98 F 10/15/24 05:42 Pulse Rate 85 10/15/24 05:42 Respiratory Rate 18 10/15/24 05:42 Blood Pressure 102/60 10/15/24 05:42 Pulse Oximetry 100 10/15/24 05:42 Oxygen Delivery Method Room Air 10/15/24 05:42 Medical Decision Making [facility] Narrative Medical decision making narrative: Patient was placed on quality assurance monitor final and EKG obtained. Blood drawn and sent for evaluation. Portable chest x-ray obtained. Chest x-ray negative. EKG normal. CBC essentially normal -she has minimally decreased hemoglobin and hematocrit of 11.9 and 35.9, respectively. Remainder of the patient's labs are still pending. Patient signed out to Dr Torre at 7am shift change for review and determination of disposition. Lab Data Lab results reviewed: Yes I reviewed the patient's lab results Labs: Lab Results 10/15/24 Range/Units 06:30 WBC 4.3 (4.0-11.0) 10^3/uL RBC 3.58 L (4.20-5.40) 10^6/uL Hgb 11.9 L (12.0-16.0) g/dL Hct 35.9 L (36.0-48.0) % MCV 100.3 H (81.0-99.0) fL MCH 33.2 (26.7-34.0) pg MCHC 33.1 (29.9-35.2) g/dL RDW 13.2 (11.0-15.0) % Plt Count 183 (150-450) 10^3/uL MPV 10.4 (9.5-13.5) fL Neut % (Auto) 54.1 (43.0-75.0) % Lymph % (Auto) 33.3 (20.5-60.0) % [place] % (Auto) 9.6 (1.7-12.0) % Eos % (Auto) 1.4 (0.9-7.0) % Baso % (Auto) 0.9 (0.2-2.0) % Neut # (Auto) 2.3 (1.4-6.5) 10^3/uL Lymph # (Auto) 1.4 (1.2-3.8) 10^3/uL [place] # (Auto) 0.4 (0.3-0.8) 10^3/uL Eos # (Auto) 0.1 (0.0-0.7) 10^3/uL Baso # (Auto) 0.0 (0.0-0.1) 10^3/uL Abs Immat Gran (auto) 0.03 (0.00-0.03) 10^3/uL Imm/Tot Granulo (auto) 0.7 H (0.0-0.5) % ECG Data Attestation: I personally reviewed and interpreted this ECG as follows: Interpretation: EKG interpretation: Emergency Department physician interpretation. Normal sinus rhythm at 82bpm. Normal axis, normal intervals and no ST segment elevation or depression. Normal EKG Discharge Plan Discharge Patient Disposition: Still a Patient
[2024-10-15 07:00] VITALS: BP 104/71; PULSE 83; O2SAT 99
[2024-10-15 07:02] LABS: Alanine Aminotransferase 59 U/L (14-59); Albumin Level 2.6 g/dL (3.4-5.0); Alkaline Phosphatase 131 U/L (46-116); Anion Gap 8.9; Aspartate Amino Transferase 79 U/L (15-37); Bilirubin Total 0.3 mg/dL (0.2-1.0); Calcium 8.3 mg/dL (8.5-10.1); Chloride 100 mmol/L (98-107); Estimated GFR (African America >60 (>=60 mL/min/1.73m^2); Estimated GFR (Non-African Ame >60 (>=60 mL/min/1.73m^2); Globulin 2.6 g/dL; Glucose 232 mg/dL (74-106); Potassium 3.9 mmol/L (3.5-5.1); Sodium 134 mmol/L (136-145); Total Protein 5.2 g/dL (6.4-8.2); Troponin I High Sensitivity 5.3 pg/mL (4.0-51.3)
[2024-10-15 07:37] VITALS: PULSE 102
[2024-10-15] MEDS: FUROSEMIDE 20 MG TABLET 40 MG PO (07:57)
== END 2024-10-15 08:08 | disposition home or self-care (01) ==
PROVIDERS: Emergency Provider Emergency Medicine
DX: R60.0 Localized edema (principal); M79.652 Pain in left thigh; M79.651 Pain in right thigh; E11.10 Type 2 diabetes mellitus with ketoacidosis without coma; Z79.84 Long term (current) use of oral hypoglycemic drugs; Z79.4 Long term (current) use of insulin
CPT/HCPCS: 36415; 70450; 71045; 80053; 83880; 84484; 85025; 93005; 99285

== ENCOUNTER 2025-03-07 19:48 | Inpatient (IN) | payer MEDICAID, SELFPAY ==
--- OUTSIDE RECORDS SUMMARY | 2025-01-12 08:15 | XMS_ITS ---
Author Organization [facility] Address [address], [place] [id number] Care Team Providers Care Glazier Apprentice Name Role Phone Julieth Rosa Primary Care Provider REASON FOR VISIT dm Social History Sex Assigned At : Social History Observation Description Sex Assigned At Female Encounters Encounter Location Date Provider Diagnosis Third [address] [facility] [place] [address] [place] [address] 01/12/2025 Juliethmadelaine Rosa Plan Of Treatment No Information Progress Notes * GWEN AnayeliDOB:1975 (49 yo F)Acc No.[id number]:01/12/2025 Medical Note Patient: Anayeli PETERSON Provider: Darvin Rosa MD :1975 A ge:49 Y S ex:Female Date:01/12/2025 Address[address] [id number] Subjective: * Chief Complaints: * 1 . Dm. * Medical History: Objective: * Vitals: Assessment: Plan: * Treatment: * Billing Information: * Visit Code: * Procedure Codes: * Electronic signature of Lamin Rosa MD on 03/08/2025 at 12:11 AM EDT Sign off status: Pending * Provider: Darvin Rosa MD Date: 0 01/12/2025 Generated for Hilario ramon/Mary Jo/eTransmitting on: 0 03/08/2025 12:11 AM EDT
--- OUTSIDE RECORDS SUMMARY | 2025-01-22 06:30 | XMS_ITS ---
Author Organization [facility] Address [address] [place], [place] [id number] Care Team Providers Care Manager Nc Name Role Phone Julieth Rosa Primary Care Provider [phone] REASON FOR VISIT DM Social History Sex Assigned At : Social History Observation Description Sex Assigned At Female Encounters Encounter Location Date Provider Diagnosis Third [address] [facility] [address] [place] [address] 01/22/2025 Juliethmadelaine Rosa Plan Of Treatment No Information Progress Notes * GWENAnayeliDOB:1975 (49 yo F)Acc No.[id number]:01/22/2025 Medical Note Patient: Anayeli PETERSON Provider: Darvin Rosa MD :1975 A ge:49 Y S ex:Female Date:01/22/2025 Address:[address] [id number] Subjective: * Chief Complaints: * 1 . DM. * Medical History: Objective: * Vitals: Assessment: Plan: * Treatment: * Billing Information: * Visit Code: * Procedure Codes: * Electronic signature of Lamin Rosa MD on 03/08/2025 at 12:10 AM EDT Sign off status: Pending * Provider: Darvin Rosa MD Date: 0 01/22/2025 Generated for Hilario ramon/Mary Jo/eTransmitting on: 0 03/08/2025 12:10 AM EDT
[2025-03-07] VITALS (17 sets, daily range): BP systolic 114; BP diastolic 60; PULSE 82–98; TEMP 36.9; O2SAT 95–99; BMI 24.4
--- OUTSIDE RECORDS SUMMARY | 2025-03-07 20:00 | XMS_ITS | CCD ---
Author Organization [facility] Inform ion [facility] Care Team Providers Care Video Game Animator Name Role Phone [facility] Other Primary Car e Provider Lenora Whitehead Unavailable [facility], DR TRAMMELL Primary Care Unavailable MARKER ., DR LUNA Admitting Unavailable MARKER ., DR LUNA Attending Unavailable MARKER ., DR LUNA Consulting Unavailable MISC, DR TRAMMELL Primary Care Unavailable MARKER ., DR LUNA Admitting Unavailable MARKER ., DR LUNA Attending Unavailable MARKER ., DR LUNA Consulting Unavailable LORETA MACKENZIE Consulting Unavailable NORMA, GOMEZ L Referring Unavailable NORMA, GOMEZ L Primary Care Unavailable NORMA, GOMEZ L Referring Unavailable NORMA, GOMEZ L Primary Care Unavailable NORMA, GOMEZ L Referring Unavailable NORMA, GOMEZ L Primary Care Unavailable Norma PROJECT CONTROLS SCHEDULER-SUPPLY ROOM CLERK, Gomez L Primary Care Provider Norma PROJECT CONTROLS SCHEDULER - SUPPLY ROOM CLERK, Gomez L Primary Care Provider Unavailable Primary Care Provider Unavailabl e Shelley Goldberg MD Primary Care Provider [facility] Other Primary Car e Provider Ashlyn Rosa MD Primary Care Provider MICHAEL FUNEZ Attending Unavailable SHELLEY, ASHLYN C Primary Care Unavailable CARMEN KEEN Attending Unavailable SHELLEY, ASHLYN C Referring Unavailable SHELLEY, ASHLYN C Primary Care Unavailable STANTON KOHLER Attending Unavailable [facility], OTHER Primary Ca re Unavailable GABE JOLLY Referring Unavailable Shelley Goldberg MD Primary Care Provider KROTZER, JESSICA Referring Unavailable NORMA, GOMEZ L Primary Care Unavailable ASHLYN, SHELLEY Referring Unavailable NORMA, GOMEZ L Primary Care Unavailable KROTZER, JESSICA Referring Unavailable ASHLYN, SHELLEY Primary Care Unavailable KROTZER, JESSICA Referring Unavailable ASHLYN, SHELLEY Primary Care Unavailable NORMA, GOMEZ L Primary Care Unavailable KARIME BYRD Referring Unavail able NORMA, GOMEZ L Primary Care Unavailable KROTZER, JESSICA Referring Unavailable NORMA, GOMEZ L Primary Care Unavailable ASHLYN, SHELLEY Referring Unavailable NORMA, GOMEZ L Primary Care Unavailable ASHLYN, SHELLEY Referring Unavailable NORMA, GOMEZ L Primary Care Unavailable ASHLYN, SHELLEY Primary Care Unavailable TRICE ARAIZA Referring Unavailab ANN Riddle Admitting Unavailable ANN HERRON Attending Unavailable ASHLYN, SHELLEY Primary Care Unavailable BECKY AVILA Admitting Unavailable BECKY AVILA Attending Unavailable MELISSA ARRIETA Consulting Unavailable NORMA, GOMEZ L Primary Care Unavailable Medications Current Medications Medication Drug Class(es) Dates Sig (Normalized) Sig (Original) Acetaminophen (20 sources) Start: 12-21-2024 acetaminophen (TYLENOL) tablet 650 mg Start: 10-16-2024 acetaminophen (TYLENOL) tablet 650 mg Start: 07-12-2022 take 1 tablet by anastacio th every six hours as needed for pain acetaminophen (TYLENOL EXTRA STRENGTH) 500 mg tablet Take 1 tablet (500 mg total) by mouth every 6 (six) hours as needed for pain. 30 tablet 07/12/2022 Active blood-glucose meter misc (19 sources) Start: 09-01-2023 blood-glucose meter misc Use to check blood sugar once daily. 1 each 09/01/2023 Active Start: 09-01-2023 blood-glucose meter misc Use to check blood sugar once daily. 1 each 0 09/01/2023 Active boric acid 600 mg suppositor y (6 sources) Start: 01-12-2025 End: 01-26-2025 boric acid 600 mg suppositor y Indications: Kiesha glabrata infection Insert 1 suppository into the vagina nightly for 14 days. 14 suppository 01/12/2025 01/26/2025 Active Start: 12-12-2024 End: 12-26-2024 boric acid 600 mg suppositor y Indications: Kiesha glabrata infection , Vaginal yeast infection Insert 1 suppository into the vagina nightly for 14 days. 14 suppository 12/12/2024 12/26/2024 Active Start: 12-07-2024 End: 12-12-2024 boric acid 600 mg suppositor y Indications: Kiesha glabrata infection , Vaginal yeast infection Insert 1 suppository into the vagina nightly for 14 days. 14 suppository 12/07/2024 12/12/2024 Discontinued (Reorder) Start: 12-07-2024 End: 12-21-2024 boric acid 600 mg suppositor y Indications: Kiesha glabrata infection , Vaginal yeast infection Insert 1 suppository into the vagina nightly for 14 days. 14 suppository 12/07/2024 12/21/2024 Active 0.5 ml dulaglutide 1.5 mg/ml auto-injector (9 sources) GLP-1 Receptor Agonist Start: 12-24-2024 inject 0.75 mg by subcutaneous injection every week 0.75 mg, SubCUTAneous, WEEKLY, First dose (after last modification) on Wed12/24/24 at 0900, Until Discontinued, On Sundays Patient using own home medications Start: 12-08-2024 TRULICITY 0.75 mg/0.5 mL pen injector Inject 0.5 mL (0.75 mg total) under the skin every 7 days. 12/08/2024 Active Start: 12-08-2024 TRULICITY 0.75 MG/0.5ML SOAJ SC injection Inject 0.5 mLs into the skin once a week Sundays12/08/2024 Active DULoxetine 60 mg delayed release oral capsule (1 source) Serotonin and Norepinephrine Reuptake Inhibitor Start: 11-14-2024 take 1 capsule by mouth once daily DULoxetine (CYMBALTA) 60 MG extended release capsule Take 1 capsule by mouth daily 11/14/2024 Active empagliflozin 10 mg oral tablet (18 sources) Sodium-Glucose Cotransporter 2 Inhibitor Start: 11-14-2024 JARDIANCE 10 mg tablet tablet 11/14/2024 Active 0.4 ml enoxaparin sodium 100 mg/ml prefilled syringe (2 sources) Low Molecular Weight Heparin Start: 12-21-2024 Start: 10-17-2024 inject 40 mg by subc utaneous injection once daily 40 mg, SubCUTAneous, DAILY, First dose on Wed10/17/24 at 0900, Until Discontinued, Indication of Use: Prophylaxis-DVT/PE furosemide 40 mg oral tablet (7 sources) Loop Diuretic Start: 12-21-2024 Start: 10-18-2024 End: 11-18-2024 take 1 tablet by mouth once daily furosemide (LASIX) 40 MG tablet Take 1 tablet by mouth daily 30 tablet 10/19/2024 Active Start: 10-16-2024 20 mg, IntraVE Nous, ONCE, 1 dose, On Wed10/17/24 at 0900 glipiZIDE 5 mg oral tablet (6 sources) Sulfonylurea Start: 12-21-2024 Start: 10-18-2024 End: 11-17-2024 take 0.5 tablet by mouth once daily in the morning glipiZIDE (GLUCOTROL) 5 MG tablet Take 0.5 tablets by mouth every morning 15 tablet 10/18/2024 Active Start: 10-17-2024 take 2.5 mg by mouth once daily in the morning 2.5 mg, Oral, EVERY MORNING, First dose on Wed10/17/24 at 0900, Until Discontinued ibuprofen 800 mg oral tablet (20 sources) Nonsteroidal Anti-inflammatory Drug Start: 07-12-2022 take 1 tablet by mouth every eight hours as needed for pain ibuprofen (MOTRIN) 800 mg tablet Take 1 tablet (800 mg total) by mouth every 8 (eight) hours as needed for pain. 21 tablet 07/12/2022 Active insulin glargine 100 unt/ml injectable solution (20 sources) Insulin Analog Start: 12-21-2024 insulin glargine (LANTUS) 100 UNIT/ML injection vial Inject 40 Units into the skin daily States 40-50 10 mL 12/21/2024 Active Start: 12-21-2024 inject 40 [IU] by boyd bcutaneous injection once daily 40 Units, SubCUTAneous, DAILY, First dose on Susy 12/21/24 at 0145, Until Discontinued Start: 11-14-2024 LANTUS SOLOSTA R U-100 INSULIN 100 unit/mL (3 mL) insulin pen 11/14/2024 Active Start: 10-18-2024 End: 12-21-2024 insulin glargine (LANTUS) 10 0 UNIT/ML injection vial Inject 25 Units into the skin 2 times daily 10 mL 10/18/2024 12/21/2024 Discontinued Start: 10-16-2024 inject 25 [IU] by boyd bcutaneous injection twice daily 25 Units, SubCUTAneous, 2 TIMES DAILY, First dose on Wed10/16/24 at 2315, Until Discontinued Insulin Syringes, Disposable, U-100 1 ML MISC (11 sources) Start: 10-18-2024 Insulin Syring es, Disposable, U-100 1 ML MISC 1 each by Does not apply route daily 100 each 10/18/2024 Active insulin, regular, human 100 unt/ml injectable solution (2 sources) Insulin Start: 10-18-2024 End: 11-17-2024 insulin regular (HUMULIN R;NOVOLIN R) 100 UNIT/ML injection Inject 25 Units into the skin 2 times daily (before meals) 10 mL 10/18/2024 11/17/2024 Active metroNIDAZOLE 250 mg oral tablet (9 sources) Nitroimidazole Antimicrobial Start: 10-17-2024 End: 10-20-2024 250 mg, Oral, 2 TIMES DAILY, 6 doses, First dose on Wed10/17/24 at 0945, Last dose on Wed10/19/24 at 1400, Antimicrobial Indications: Other, Other Abx Indication: trich End: 12-21-2024 metroNIDAZOLE (FLAGYL) 250 M G tablet Take 1 tablet by mouth 2 times daily at 0800 and 1400 3 days left to finish 12/21/2024 Discontinued (Stop Taking at Discharge) 24 hr nicotine 0.875 mg/hr transdermal system (20 sources) Cholinergic Nicotinic Agonist Start: 12-21-2024 apply 1 dose transdermal route every twenty-four hours at bedtime 1 patch, TransDERmal, Administer over 24 Hours, EVERY 24 HOURS, First dose on Wed12/21/24 at 0145, Apply new patch to nonhairy, clean, dry skin on the upper body or upper outer arm. Rotate patch sites. Notify pharmacy if patient or provider prefers patch to be removed at bedtime and replaced in the morning. Hazardous Medication -- Refer to facility policy for handling and disposal. Start: 10-17-2024 apply 1 dose transde rmal route once daily at bedtime 1 patch, TransDERmal, Administer over 24 Hours, DAILY, First dose on Wed10/17/24 at 1700, Apply new patch to nonhairy, clean, dry skin on the upper body or upper outer arm. Rotate patch sites. Notify pharmacy if patient or provider prefers patch to be removed at bedtime and replaced in the morning. Hazardous Medication -- Refer to facility policy for handling and disposal. apply 1 dose transde rmal route every hour nicotine (NICODERM CQ) 21 mg/[address] 1 patch on the skin. Active ondansetron (ZOFRAN-ODT) disintegrating tablet 4 mg (2 sources) Start: 12-21-2024 ondansetron (Z OFRAN-ODT) disintegrating tablet 4 mg Start: 10-16-2024 ondansetron (Z OFRAN-ODT) disintegrating tablet 4 mg permethrin 50 mg/ml topical cream (1 source) Pyrethroid Start: 05-02-2021 Permethrin 5 % 1 application Externally Two times a Week Perform the treatment as directed, repeat in 3 days. Apr, Active pilocarpine hydrochloride 5 mg oral tablet (4 sources) Cholinergic Receptor Agonist Start: 07-10-2021 take [...] bedtime 360 tablet 3 11/12/2016 07/10/2021 Discontinued polyethylene glycol 3350 170 00 mg powder for oral solution (2 sources) Osmotic Laxative Start: 12-21-2024 Start: 10-16-2024 Potassium Chloride (5 sources) Start: 12-21-2024 potassium chlo ride (KLOR-CON M) extended release tablet 40 mEq Start: 10-18-2024 End: 11-18-2024 take 1 tablet by mouth once daily at breakfast potassium chloride (KLOR-CON M) 20 MEQ extended release tablet Take 1 tablet by mouth daily (with breakfast) 30 tablet 10/19/2024 11/18/2024 Active Start: 10-16-2024 potassium chlo ride (KLOR-CON M) extended release tablet 40 mEq rOPINIRole 0.25 mg oral tablet (6 sources) Nonergot Dopamine Agonist Start: 07-25-2021 End: 01-11-2025 rOPINIRole (REQUIP) 0.25 mg tablet 1 po 2-3 hours before bed x 1 week then increase to 2 before bed if no SE 01/11/2025 Active Completed/Discontinued Medications Medication Drug Class(es) Dates Sig (Normalized) Sig (Original) cetirizine hydrochloride 10 mg oral tablet (1 source) Histamine-1 Receptor Antagonist Start: 05-11-2014 End: 10-17-2024 take 1 tablet by mouth once daily cetirizine (ZYRTEC) 10 MG tablet Indications: Allergic rhinitis Take 1 tablet by mouth daily. 30 tablet 0 05/11/2014 10/17/2024 Discontinued (LIST CLEANUP) esomeprazole 20 mg / naproxen 500 mg delayed release oral tablet (1 source) Proton Pump Inhibitor, Nonsteroidal Anti-inflammatory Drug Start: 10-29-2016 End: 07-10-2021 take 1 tablet by mouth twice daily as needed Naproxen-Esomeprazo le (VIMOVO) 500-[address] Indications: Sjogren's [...] PRN 60 tablet 11 10/29/2016 07/10/2021 Discontinued famotidine 20 mg oral tablet (2 sources) Histamine-2 Receptor Antagonist Start: 12-21-2024 take 20 mg by mouth twice daily 20 mg, Oral, 2 TIMES DAILY, First dose on Wed12/21/24 at 0145, Until Discontinued Start: 10-16-2024 take 20 mg by mouth twice daily 20 mg, Oral, 2 TIMES DAILY, First dose on Wed10/16/24 at 2315, Until Discontinued fluticasone propionate 0.05 mg/actuat metered dose nasal spray (1 source) Corticosteroid Start: 05-11-2014 End: 10-17-2024 fluticasone (FLONASE) 50 MCG/ACT nasal spray Indications: Allergic rhinitis 2 sprays by Nasal route daily. 1 Bottle 0 05/11/2014 10/17/2024 Discontinued (LIST CLEANUP) insulin lispro 100 unt/ml injectable solution (2 sources) Insulin Analog Start: 12-20-2024 End: 12-20-2024 inject 1 dose by subcutaneous injection once 20 Units, SubCUTAneous, ONCE, 1 dose, On Wed12/20/24 at 2115 Start: 10-16-2024 0-8 Units, Sub CUTAneous, 4 TIMES DAILY BEFORE MEALS & NIGHTLY, First dose on Wed10/16/24 at 2315, Until Discontinued, Medium Dose Corrective Algorithm Glucose: Dose: 70-179 No Insulin 180-249 2 Units 250-299 4 Units 300-349 6 Units Over 349 8 Units and notify physician Administer as soon as possible within 60 minutes of last blood glucose check iopamidol (ISOVUE-370) 76 % injection 75 mL (2 sources) Start: 12-20-2024 End: 12-20-2024 take 1 dose intravenously once 75 mL, IntraVENous, IMG ONCE PRN, 1 dose, Starting on Wed12/20/24 at 1933, Until Wed12/20/24 at 2040, Other Start: 10-17-2024 End: 10-17-2024 take 1 dose intravenously once 75 mL, IntraVENous, IMG ONCE PRN, 1 dose, Starting on Wed10/17/24 at 0935, Until Wed10/17/24 at 0952, Other levothyroxine sodium 0.075 mg oral tablet (20 sources) l-Thyroxine Start: 10-19-2023 End: 01-29-2025 take 1 tablet by mouth in the morning levothyroxine (SYNTHROID, LEVOTHROID) 75 MCG tablet Take 1 tablet (75 mcg total) by mouth in the morning. 90 tablet 1 10/19/2023 01/29/2025 Discontinued Start: 09-01-2023 End: 10-19-2023 take 1 tablet [...] tablet 2 10/30/2020 09/01/2023 Discontinued (Therapy completed) Start: 01-18-2015 End: 10-18-2024 levothyroxine (SYNTHROID) 15 0 MCG tablet 3 01/18/2015 10/18/2024 Discontinued (Stop Taking at Discharge) take 1 tablet by anastacio th once daily levothyroxine 300 MCG tablet Take 300 mcg by mouth daily. Active loratadine 10 mg oral capsule (1 source) End: 10-17-2024 take 1 capsule by mouth once daily Loratadine (CLARITIN) 10 MG CAPS Take 1 capsule by mouth daily 10/17/2024 Discontinued (LIST CLEANUP) meclizine hydrochloride 12.5 mg oral tablet (1 source) Antiemetic Start: 03-14-2014 End: 10-17-2024 take 1 tablet by mouth twice daily as needed for dizziness meclizine (ANTIVERT) 12.5 MG tablet Indications: BPPV (benign paroxysmal positional vertigo), unspecified laterality Take one (1) tablet by mouth twice a day as needed for dizziness 20 tablet 0 03/14/2014 10/17/2024 Discontinued (LIST CLEANUP) meloxicam 15 mg oral tablet (1 source) Nonsteroidal Anti-inflammatory Drug Start: 08-14-2013 End: 10-17-2024 take 1 tablet by mouth once daily meloxicam (MOBIC) 15 MG tablet Take 1 tablet by mouth daily. 30 tablet 3 08/14/2013 10/17/2024 Discontinued (LIST CLEANUP) metFORMIN hydrochloride 500 mg oral tablet (20 sources) Biguanide Start: 10-13-2023 End: 01-30-2025 take 1 tablet by mouth in the morning, then take 1 tablet by mouth at mealtime metFORMIN (GLUCOPHAGE) 500 mg tablet Take 1 tablet (500 mg total) by mouth in the morning and 1 tablet (500 mg total) in the evening. Take with meals. 180 tablet 1 10/13/2023 01/30/2025 Discontinued methocarbamol 500 mg oral tablet (1 source) Muscle Relaxant Start: 08-14-2013 End: 10-17-2024 take 1 tablet by mouth three times daily as needed methocarbamol (ROBAXIN) 500 MG tablet Take 1 tablet by mouth 3 times daily as needed. 40 tablet 3 08/14/2013 10/17/2024 Discontinued (LIST CLEANUP) methylPREDNISolone 4 mg oral tablet (1 source) Corticosteroid Start: 04-07-2017 End: 07-10-2021 methylPREDNISolone 4 MG Tab Medrol dos pack- as directed 21 tablet 0 04/07/2017 07/10/2021 Discontinued naratriptan 2.5 mg oral tablet (1 source) Serotonin-1b and Serotonin-1d Receptor Agonist Start: 04-07-2017 End: 07-10-2021 naratriptan (AMERGE) 2.5 MG Tab 1 po prn headache max 5mg/day; may repeat in 4 hr x1 8 tablet 1 04/07/2017 07/10/2021 Discontinued ondansetron 4 mg disintegrating oral tablet (1 source) Serotonin-3 Receptor Antagonist Start: 07-12-2022 End: 08-27-2023 take 1 tablet by mouth every eight hours as needed for nausea ondansetron ODT (ZOFRAN ODT) 4 mg disintegrating tablet Dissolve 1 tablet (4 mg total) on tongue every 8 (eight) hours as needed for nausea for up to 10 doses. 10 tablet 0 07/12/2022 08/27/2023 Discontinued (Therapy completed) promethazine hydrochloride 25 mg oral tablet (1 source) Phenothiazine Start: 04-07-2017 End: 07-10-2021 take 1 tablet by mouth every eight hours as needed for nausea promethazine 25 MG Tab tablet 1 po q 8 hours prn nausea 10 tablet 1 04/07/2017 07/10/2021 Discontinued 50 ml sodium chloride 9 mg/ml injection (10 sources) Start: 12-21-2024 Start: 12-20-2024 End: 12-21-2024 IntraVENous, at 100 mL/hr, C ONTINUOUS, Starting on Wed12/21/24 at 0145, For 24 hours, Complete last bag that is running at 24 hours and then saline lock IV Start: 10-17-2024 End: 10-17-2024 IntraVENous, at 50 mL/hr, CO NTINUOUS, Starting on Wed10/17/24 at 0200 Start: 10-16-2024 Start: 10-16-2024 10 mL, IntraVE Nous, EVERY 12 HOURS SCHEDULED (2 times per day), First dose on Wed10/16/24 at 2315, Until Discontinued Start: 10-16-2024 terbinafine 250 mg oral tablet (16 sources) Allylamine Antifungal Start: 10-08-2023 End: 01-29-2025 terbinafine (LamISIL) 250 mg tablet 10/08/2023 01/29/2025 Discontinued Problems Active Problems Problem Classification Problem Date Documented Date Episodic/Chronic Abdominal pain (2 sources) Pain in pelvis; 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: [Pelvic and perineal pain] Onset: 5 12-06-2024 Episodic Anxiety disorders (1 source) Feeling irritable; 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: [Irritability and anger] 12-20-2024 Episodic Cancer; other and unspecified primary (3 sources) History of gynecological disorder; 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: [Personal history of other benign neoplasm] 08-31-2023 Episodic Cancer; other and unspecified primary (2 sources) Personal history of other benign neoplasm; 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: [Personal history of other benign neoplasm] Onset: 5 Episodic Diabetes mellitus with complications (20 sources) Type 2 diabetes mellitus with hyperglycemia; 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: [Other specified diabetes mellitus with hyperglycemia] Onset: 4 09-01-2023 Chronic Disorders of lipid metabolism (2 sources) Hyperlipidemia, unspecified; 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: [Hyperlipidemia] Onset: 4 08-27-2023 Chronic Headache; including migraine (20 sources) Migraine; 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: [Migraine, unspecified, not intractable, without status migrainosus] Onset: 5 10-19-2016 Chronic Immunizations and screening for infectious disease (8 sources) Abnormal blood test; 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: [Abnormal immunological finding in serum, unspecified] Onset: 7 Resolved: 1 11-12-2016 Episodic Inflammation; infection of eye (except that caused by tuberculosis or sexually transmitteddisease) (1 source) Keratoconjunctivitis sicca; 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: [Keratoconjunctivitis sicca, not specified as Sjogren's, unspecified eye] Onset: 2 07-10-2021 Chronic Inflammatory diseases of female pelvic organs (2 sources) Acute vaginitis; 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: [Acute vaginitis] Onset: 5 12-06-2024 Episodic Malaise and fatigue (8 sources) Fatigue; 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: [Other fatigue] Onset: 5 10-19-2016 Episodic Menopausal disorders (2 sources) Menopausal syndrome; 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: [Menopausal and female climacteric states] 12-20-2024 Chronic Menstrual disorders (1 source) Menorrhagia; 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: [Excessive and frequent menstruation with regular cycle] 08-31-2023 Chronic Mycoses (10 sources) Onychomycosis; 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: [Tinea unguium] 08-30-2023 Episodic Nonmalignant breast conditions (11 sources) Discharge from nipple; 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: [Nipple discharge] Onset: 5 12-06-2024 Episodic Nutritional deficiencies (20 sources) Vitamin D deficiency; 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: [Vitamin D deficiency, unspecified] Onset: 7 10-29-2016 Chronic Osteoarthritis (20 sources) Osteoarthritis of joint of right hand; 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: [Primary osteoarthritis, right hand] Onset: Chronic Other aftercare (6 sources) Patient encounter status; 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: [prison (current) use of non-steroidal anti-inflammatories (NSAID)] Onset: 7 Resolved: 2 07-10-2021 Episodic Other connective tissue disease (2 sources) Other symptoms and signs involving the musculoskeletal system; 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: [Other musculoskeletal symptoms referable to limbs] Onset: 5 02-08-2025 Episodic Other nervous system disorders (20 sources) Tarsal tunnel syndrome; 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: [Tarsal tunnel syndrome, unspecified lower limb] Onset: 7 10-29-2016 Chronic Other nervous system disorders (1 source) Polyneuropathy in diseases classified elsewhere; 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: [Polyneuropathy in diseases classified elsewhere] Onset: 5 Chronic Other nervous system disorders (1 source) Impaired cognition; 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: [Other symptoms and signs involving cognitive functions and awareness] 12-20-2024 Episodic Other non-traumatic joint disorders (2 sources) Pain in left knee; 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: [Pain in joint, lower leg] Onset: 5 12-08-2024 Episodic Other nutritional; endocrine; and metabolic disorders (3 sources) Obese class II; 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: [Obesity, unspecified] Onset: 2 07-10-2021 Chronic Other nutritional; endocrine; and metabolic disorders (1 source) Peripheral neuropathy due to metabolic disorder; 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: [Metabolic disorder, unspecified] 02-08-2025 Chronic Other nutritional; endocrine; and metabolic disorders (1 source) Metabolic disorder, unspecified; 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: [Metabolic disorder, unspecified] Onset: 5 Chronic Other screening for suspected conditions (not mental disorders or infectious disease) (6 sources) Encounter for screening mammogram for malignant neoplasm of breast; 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: [Encounter for screening for malignant neoplasm of colon] Onset: 5 02-12-2025 Episodic Other upper respiratory disease (20 sources) Allergic rhinitis; 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: [Allergic rhinitis, unspecified] Onset: 5 10-19-2016 Chronic Residual codes; unclassified (1 source) Edema; 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: [Edema, unspecified] 10-16-2024 Episodic Spondylosis; intervertebral disc disorders; other back problems (20 sources) Degeneration of lumbar intervertebral disc; 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: [Other intervertebral disc degeneration, lumbar region] Onset: 7 Chronic Substance-related disorders (4 sources) Smoker; 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: [Nicotine dependence, unspecified, uncomplicated] 08-27-2023 Chronic Systemic lupus erythematosus and connective tissue disorders (20 sources) Sjogren's syndrome; 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: [Sicca syndrome, unspecified] Onset: 5 Resolved: 2 Chronic Thyroid disorders (20 sources) Hypothyroidism; 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: [Hypothyroidism, unspecified] Onset: 7 Chronic Unclassified (1 source) High Blood Sugar - Symptomatic Onset: 5 Unclassified (1 source) EMS Onset: 5 Unclassified (1 source) HRT Onset: 5 Unclassified (1 source) Annual Exam Onset: 5 Viral infection (2 sources) COVID-19; 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: [Disease caused by 2019-nCoV] Onset: 2 Past or Other Problems Problem Classification Problem Date Documented Date Episodic/Chronic Allergic reactions (20 sources) Allergic disorder; 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: [Allergy, unspecified, initial encounter] Onset: 1 10-15-2020 Episodic Cancer of cervix (20 sources) Malignant tumor of cervix; 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: [Malignant neoplasm of cervix uteri, unspecified] Onset: 7 Resolved: 4 10-29-2016 Chronic Cancer of cervix (1 source) History of malignant neoplasm of cervix; 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: [Personal history of malignant neoplasm of cervix uteri] 08-31-2023 Episodic Diabetes mellitus without complication (20 sources) Hyperglycemia; 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: [Hyperglycemia, unspecified] Onset: 2 Episodic Diseases of mouth; excluding dental (8 sources) Xerostomia; 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: [Disturbances of salivary secretion] Onset: 2 Episodic Mood disorders (20 sources) Mood disorders Onset: 4 Resolved: 4 10-13-2023 Nausea and vomiting (4 sources) Nausea; 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: [NAUSEA] Onset: 2 Episodic Other aftercare (3 sources) Drug therapy finding; 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: [Other rodent exterminator (current) drug therapy] Onset: 7 Resolved: 7 11-12-2016 Episodic Other aftercare (1 source) 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 use of non-steroidal anti-inflammatory drug; 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: [prison (current) use of non-steroidal anti-inflammatories (NSAID)] Onset: 7 Resolved: 2 07-10-2021 Episodic Other bone disease and musculoskeletal deformities (20 sources) Disorder of skeletal system; 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: [Disorder of bone, unspecified] Onset: 2 07-10-2021 Episodic Other circulatory disease (20 sources) Telangiectasia of skin of face; 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: [Nevus, non-neoplastic] Onset: 2 Episodic Other connective tissue disease (3 sources) Pain in right hand; 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: [Pain in right hand] Onset: 7 10-29-2016 Episodic Other connective tissue disease (3 sources) Pain in left foot; 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: [Pain in left foot] Onset: 7 10-29-2016 Episodic Other connective tissue disease (14 sources) Swelling of bilateral lower limbs; 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: [Other specified soft tissue disorders] Onset: 5 Resolved: 5 10-16-2024 Episodic Other connective tissue disease (1 source) Other specified soft tissue disorders; 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: [Other specified soft tissue disorders] Onset: 5 Episodic Other eye disorders (4 sources) Dry eyes; 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: [Dry eye syndrome of bilateral lacrimal glands] Onset: 2 Episodic Other female genital disorders (18 sources) History of abnormal cervical Papanicolaou smear ; 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: [Personal history of other diseases of the female genital tract] Onset: 4 10-13-2023 Episodic Other infections; including parasitic (1 source) Scabies; 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: [Scabies B86] Onset: 1 Resolved: 1 Episodic Other nervous system disorders (20 sources) Neurological finding; 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: [Other abnormal involuntary movements] Onset: 2 Episodic Other non-traumatic joint disorders (3 sources) Shoulder pain; 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: [Pain in unspecified shoulder] Onset: 7 10-29-2016 Episodic Other non-traumatic joint disorders (11 sources) Pain in left shoulder; 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: [Pain in joint, shoulder region] Resolved: 5 10-17-2024 Episodic Other nutritional; endocrine; and metabolic disorders (1 source) History of Graves' disease; 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: [Personal history of other endocrine, nutritional and metabolic disease] 08-31-2023 Episodic Other nutritional; endocrine; and metabolic disorders (1 source) Weight loss; 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: [Abnormal weight loss] 08-31-2023 Episodic Other skin disorders (5 sources) Hyperpigmentation of skin; 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: [Disorder of pigmentation, unspecified] Onset: 2 Episodic Other upper respiratory infections (1 source) Acute upper respiratory infection, unspecified; 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: [Viral upper respiratory illness J06.9] Onset: 1 Resolved: 1 Episodic Residual codes; unclassified (3 sources) Noncompliance with treatment; 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: [Patient's noncompliance with other medical treatment and regimen] Onset: 7 10-29-2016 Episodic Residual codes; unclassified (13 sources) Noncompliance with medication regimen; 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: [Non compliance w medication regimen] Onset: 5 10-17-2024 Episodic Residual codes; unclassified (12 sources) Bilateral lower limb edema; 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: [Localized edema] Onset: 5 10-17-2024 Episodic Residual codes; unclassified (12 sources) Edema, generalized; 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: [Generalized edema] Onset: 5 10-17-2024 Episodic Residual codes; unclassified (1 source) Edema, unspecified; 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: [Edema, unspecified] Onset: 5 Episodic Spondylosis; intervertebral disc disorders; other back problems (20 sources) Neck pain; 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: [Cervicalgia] Onset: 7 Resolved: 5 10-29-2016 Episodic Unclassified (20 sources) Onset: 1 10-31-2020 Results Test Name Value Interpretation Reference Range Facility Prot. Charly Ellington 2024 Pathologist Review: ELECTRONICALLY SIGNED. KAILEE FERNANDEZ M.D. Normal [facility] Comment on above: Performed By: #### I NSU #### [address] [place] [address] Outplacement Consultant: Gee Royal MD [facility] [address] [place] [address] Outplacement Consultant: oLreta Zelaya MD #### CPEP #### [address] [address] Outplacement Consultant: Gee Royal MD Albumin [Mass/Vol] 4.1 g/dL Normal 3.2-5.2 [facility] Comment on above: Performed By: #### I NSU #### [address] [address] Outplacement Consultant: Gee Royal MD [facility] [address] [place] [address] [place], [place] [id number] Outplacement Consultant: Loreta Zelaya MD #### CPEP #### [address] [address] Outplacement Consultant: Gee Royal MD Albumin, % 58 % Normal 56-66 [facility] Comment on above: Performed By: #### I NSU #### [address] [address] Outplacement Consultant: Gee Royal MD [facility] [address] [place] [address] [place] [address] Outplacement Consultant: Loreta Zelaya MD #### CPEP #### [address] [address] Outplacement Consultant: Gee Royal MD Alevv-3-fmjqejyks 0.3 g/dL Normal 0.1-0.4 [facility] Comment on above: Performed By: #### I NSU #### [address] [address] Outplacement Consultant: Gee Royal MD [facility] [address] [place] [address] [place] [address] Outplacement Consultant: Loreta Zelaya MD #### CPEP #### [address] [address] Outplacement Consultant: Gee Royal MD Jjcfh-2-lkpxcxuct,% 4 % Normal 3-5 [facility] Comment on above: Performed By: #### I NSU #### [address] [address] Outplacement Consultant: Gee Royal MD [facility] [address] [place] [address] Dr. [place], [place] [id number] Outplacement Consultant: Loreta Zelaya MD #### CPEP #### [address] [address] Outplacement Consultant: Gee Royal MD Pcecc-4-wklvfefyr 0.7 g/dL Normal 0.5-0.9 [facility] Comment on above: Performed By: #### I NSU #### [address] [address] Outplacement Consultant: Gee Royal MD [facility] [address] [place] [address] [place] [address] Outplacement Consultant: Loreta Zelaya MD #### CPEP #### [address] [address] Outplacement Consultant: Gee Royal MD Ujwpd-2-vgfjnptme,% 10 % Normal 7-12 [facility] Comment on above: Performed By: #### I NSU #### [address] [address] Outplacement Consultant: Gee Royal MD [facility] [address] [place] [address] Dr[place], [place] [id number] Outplacement Consultant: Loreta Zelaya MD #### CPEP #### [address] [address] Outplacement Consultant: Gee Royal MD Beta-globulins 0.9 g/dL Normal 0.7-1.4 [facility] Comment on above: Performed By: #### I NSU #### [address] [address] Outplacement Consultant: Gee Royal MD [facility] [address] [place] [address] Outplacement Consultant: Loreta Zelaya MD #### CPEP #### [facility] [address] [place] [address] Outplacement Consultant: Gee Royal MD Beta-globulins,% 13 % Normal 8-13 [facility] Comment on above: Performed By: #### I NSU #### [address] [address] Outplacement Consultant: Gee Royal MD [facility] [address] [place] [address] Dr[place], [place] [phone] Outplacement Consultant: Loreta Zelaya MD #### CPEP #### [address] [address] Outplacement Consultant: Gee Royal MD Gamma-globulins 1.1 g/dL Normal 0.5-1.5 [facility] Comment on above: Performed By: #### I NSU #### [address] [address] Outplacement Consultant: Gee Royal MD [facility] [address] [place] [address] [place] [address] Outplacement Consultant: Loreta Zelaya MD #### CPEP #### [address] [address] Outplacement Consultant: Gee Royal MD Gamma-globulins,% 15 % Normal 11-19 [facility] Comment on above: Performed By: #### I NSU #### [address] [address] Outplacement Consultant: Gee Royal MD [facility] [address] [place] [address] Outplacement Consultant: Loreta Zelaya MD #### CPEP #### [address] [address] Outplacement Consultant: Gee Royal MD Prot. Elect-Interp Normal electrophoretic pattern. Normal [facility] Comment on above: Performed By: #### I NSU #### [address] [address] Outplacement Consultant: Gee Royal MD [address] [place] [address] Outplacement Consultant: Loreta Zelaya MD #### CPEP #### [address] [address] Outplacement Consultant: Gee Royal MD Total Prot. Sum 7.1 g/dL Normal 6.3-8.2 [facility] Comment on above: Performed By: #### I NSU #### [address] [address] Outplacement Consultant: Gee Royal MD [address] [place] [id number] Outplacement Consultant: Loreta Zelaya MD #### CPEP #### [address] [address] Outplacement Consultant: Gee Royal MD Total Prot. Sum,% 100 % Normal 98-102 [facility] Comment on above: Performed By: #### I NSU #### [address] [address] Outplacement Consultant: Gee Royal MD [address] [place] [address] Outplacement Consultant: Loreta Zelaya MD #### CPEP #### [address] [address] Outplacement Consultant: Gee Royal MD B12/Folate Panelon 5 Cobalamin (Vitamin B12) [Mass/Vol] 391 pg/mL Normal 232-1245 [facility] Comment on above: Performed By: #### B MP #### [facility] [address] [place] [address] Outplacement Consultant: Loreta Zelaya MD Folic Acid 37.3 ng/mL High 4.8-24.2 [facility] Comment on above: Performed By: #### B MP #### [facility] [address] [place] [address] Outplacement Consultant: Loreta Zelaya MD CBCon 02-08-2025 Erythrocyte distribution width (RBC) [Ratio] 13.3 % 11.8 - 14.4 % [facility] Hematocrit (Bld) [Volume fraction] 44.9 % 36.3 - 47.1 % [facility] Hemoglobin (Bld) [Mass/Vol] 14.9 g/dL 11.9 - 15.1 g/dL [facility] Interpretation and review of laboratory results Abnormal [facility] MCH (RBC) [Entitic mass] 29 pg 25.2 - 33.[address] [facility] MCHC (RBC) [Mass/Vol] 33.2 g/dL 28.4 - 34.8 g/dL [facility] MCV (RBC) [Entitic vol] 87.5 fL 82.6 - 102.[address] [facility] Nucleated RBC/100 WBC (Bld) [Ratio] 0 % 0.0 per [address] [facility] Platelet mean volume (Bld) [Entitic vol] 9.7 fL 8.1 - 13.[address] [facility] Platelets (Bld) [#/Vol] 306 10*3/uL [facility] RBC (Bld) [#/Vol] 5.13 10*6/uL High 3.95 - 5.1 1 m/uL [facility] WBC other (Bld) [#/Vol] 5.9 B [facility] Erythrocyte distribution width (RBC) [Ratio] 13.3 % Normal 11.8-14.4 [facility] Comment on above: Performed By: #### B MP #### [facility] [address] [place], [place] [id number] Outplacement Consultant: Loreta Zelaya MD Hematocrit (Bld) [Volume fraction] 44.9 % Normal 36.3-47.1 [facility] Comment on above: Performed By: #### B MP #### [address] [place], [place] [id number] Outplacement Consultant: Loreta Zelaya MD Hemoglobin (Bld) [Mass/Vol] 14.9 g/dL Normal 11.9-15.1 [facility] Comment on above: Performed By: #### B MP #### [address] [place], [facility]83 Outplacement Consultant: Loreta Zelaya MD MCH (RBC) [Entitic mass] 29.0 pg Normal 25.2-33.5 [facility] Comment on above: Performed By: #### B MP #### [address] [place], [facility]83 Outplacement Consultant: Loreta Zelaya MD MCHC (RBC) [Mass/Vol] 33.2 g/dL Normal 28.4-34.8 [facility] Comment on above: Performed By: #### B MP #### [address] [place], [place] [id number] Outplacement Consultant: Loreta Zelaya MD MCV (RBC) [Entitic vol] 87.5 fL Normal 82.6-102.9 [facility] Comment on above: Performed By: #### B MP #### [address] [place], [place] [address]683 Outplacement Consultant: Loreta Zelaya MD NRBC Automated 0.0 per 100 WBC Normal 0.0 [facility] Comment on above: Performed By: #### B MP #### [address] [place] [address] Outplacement Consultant: Loreta Zelaya MD Platelet mean volume (Bld) [Entitic vol] 9.7 fL Normal 8.1-13.5 [facility] Comment on above: Performed By: #### B MP #### [facility] [address] [place] [address] Outplacement Consultant: Loreta Zelaya MD Platelets (Bld) [#/Vol] 306 10*3/uL Normal 138-453 [facility] Comment on above: Performed By: #### B MP #### [facility] [address] [place], [place] [id number] Outplacement Consultant: Loreta Zelaya MD RBC (Bld) [#/Vol] 5.13 10*6/uL High 3.95-5.11 [facility] Comment on above: Performed By: #### B MP #### [facility] [address] [place] [address] Outplacement Consultant: Loreta Zelaya MD WBC (Bld) [#/Vol] 5.9 10*3/uL Normal 3.5-11.3 [facility] Comment on above: Performed By: #### B MP #### [facility] [address] [place] [address] Outplacement Consultant: Loreta Zelaya MD CKon 02-08-2025 CK [Catalytic activity/Vol] 26 U/L 26 - 192 U/L [facility] Creatine Kinaseon 02-08-2025 CK [Catalytic activity/Vol] 26 U/L Normal 26-192 [facility] Comment on above: Performed By: #### C DP #### [facility] [address] [place] [address] Outplacement Consultant: Loreta Zelaya MD Estradiolon 02-08-2025 Estradiol 66.0 pg/mL [facility] Comment on above: FEMALES: Normally menstruating Luteal phase 60-232 Follicular phase 31-90 Midcycle phase 60-533 Postmenopausal (untreated) <138 Fulvestrant treatment will show an increased estradiol concentration with this methodology. Alternate methodologies are available upon request. Estradiol 66.0 pg/mL Normal [facility] Comment on above: Result Comment: FEMALES: Normally menstruating Luteal phase 60-232 Follicular phase 31-90 Midcycle phase 60-533 Postmenopausal (untreated) <138 Fulvestrant treatment will show an increased estradiol concentration with this methodology. Alternate methodologies are available upon request. Performed By: #### B MP #### [facility] [address] [place] [address] Outplacement Consultant: Loreta Zelaya MD Follicle Stim. Hormon 2024 Follicle Stim. Horm 4.8 mIU/mL Normal [facility] Comment on above: Result Comment: Refe rence Range: Male: 1.5-12.4 Ovulating Female: Follicular Phase 3.5-12.5 Ovulation Phase 4.7-21.5 Luteal Phase 1.7-7.7 Postmenopausal Female: 25.8-134.8 Performed By: #### V BG #### [facility] [address] [place] [address] Outplacement Consultant: Loreta Zelaya MD Follicle Stimulating Hormone on 02-08-2025 Follitropin Qn 4.8 m[IU]/mL mIU/mL Milton Silvao [facility] Comment on above: Reference Range: Male: 1.5-12.4 Ovulating Female: Follicular Phase 3.5-12.5 Ovulation Phase 4.7-21.5 Luteal Phase 1.7-7.7 Postmenopausal Female: 25.8-134.8 HCG, Quanton 02-08-2025 HCG, Quant <0.2 Normal 0-7 [facility] Comment on above: Result Comment: Non-preg premeno <=5 Postmeno <=8 Male <=3 If HCG results do not concur with clinical observations, additional testing to confirm results is recommended. Performed By: #### B MP #### [facility] [address] [place] [id number] Outplacement Consultant: Loreta Zelaya MD HCG, Quantitative, on 02-08-2025 HCG.beta subunit Qn [facility] Comment on above: Non-preg premeno <=5 Postmeno <=8 Male <=3 If HCG results do not concur with clinical observations, additional testing to confirm results is recommended. [facility] Luteinizing Hormoneon 2024 Lutropin Qn 2.8 m[IU]/mL [facility] Comment on above: Reference Range: Male: 1.7-8.6 Ovulating Female: Follicular Phase 2.4-12.6 Ovulation Phase 14.0-95.6 Luteal Phase 1.0-11.4 Postmenopausal Female: 7.7-58.5 Luteinizing Hormone 2.8 mIU/mL Normal 1.7-8.6 [facility] Comment on above: Result Comment: Refe rence Range: Male: 1.7-8.6 Ovulating Female: Follicular Phase 2.4-12.6 Ovulation Phase 14.0-95.6 Luteal Phase 1.0-11.4 Postmenopausal Female: 7.7-58.5 Performed By: #### V BG #### [facility] [address] [place] [address] Outplacement Consultant: Loreta Zelaya MD No Panel Informationon 02-[address] [facility] Progesteroneon 02-08-2025 Progesterone [Mass/Vol] 2.57 ng/mL B [facility] Comment on above: Female: Follicular phase <0.19 ng/mL Ovulation phase 0.06-4.14 ng/mL Luteal phase 4.11-14.5 ng/mL Postmenopausal <0.13 ng/mL Progesterone 2.57 ng/mL Normal [facility] Comment on above: Result Comment: Female: Follicular phase <0.19 ng/mL Ovulation phase 0.06-4.14 ng/mL Luteal phase 4.11-14.5 ng/mL Postmenopausal <0.13 ng/mL Performed By: #### V BG #### [facility] [address] [place] [address] Outplacement Consultant: Loreta Zelaya MD Prolactinon 02-08-2025 Interpretation and review of laboratory results Abnormal [facility] Prolactin [Mass/Vol] 4.73 ng/mL Low 4.79 - 23.3 ng/mL [facility] Comment on above: The presence of macr oprolactin may cause interference in female patients with various endocrinological diseases or during . [facility] Prolactin 4.73 ng/mL Low 4.79-23.3 [facility] Comment on above: Result Comment: The presence of macroprolactin may cause interference in female patients with various endocrinological diseases or during . Performed By: #### B MP #### [address] [place], [place] 6[address]83 Outplacement Consultant: Loreta Zelaya MD Prot. Electroph, Blon 2024 Protein [Mass/Vol] 7.0 g/dL Normal 6.6-8.7 [facility] Comment on above: Performed By: #### I NSU #### [address] [id number] Outplacement Consultant: Gee Royal MD [address] [place] [id number] Outplacement Consultant: Loreta Zelaya MD #### CPEP #### [place] [address] [place], [place] [id number] Outplacement Consultant: Gee Royal MD Sedimentation Rateon 025 ESR Photometric method (Bld) [Velocity] [address] [facility] Interpretation and review of laboratory results Abnormal [facility] Sedimentation Rate 21 mm/Hr High 0-20 [facility] Comment on above: Performed By: #### C DP #### [address] [place] [address] Outplacement Consultant: Loreta Zelaya MD T4, Freeon 02-08-2025 Free T4 [Mass/Vol] 0.5 ng/dL Low 0.92 - 1. 68 ng/dL [facility] Interpretation and review of laboratory results Abnormal [facility] TSHon 02-08-2025 Interpretation and review of laboratory results Abnormal [facility] TSH Qn 15.5 m[IU]/L High [facility] Testosteroneon 02-08-2025 Testosterone [Mass/Vol] 14 ng/dL 8 - 48 ng/dL [facility] Testosterone, Totalon 2024 Testosterone [Mass/Vol] 14 ng/dL Normal 8-48 [facility] Comment on above: Performed By: #### V BG #### [facility] [address] [place] [address] Outplacement Consultant: Loreta Zelaya MD Thyroid Stim. Horm.on 2024 Thyroid Stim. Horm. 15.50 uIU/mL High 0.27-4.20 [facility] Comment on above: Performed By: #### B MP #### [facility] [address] [place], [place] [id number] Outplacement Consultant: Loreta Zelaya MD Thyroxine, Freeon 02-08-2025 Thyroxine, Free 0.5 ng/dL Low 0.92-1.68 [facility] Comment on above: Performed By: #### V BG #### [facility] [address] [place], [place] [id number] Outplacement Consultant: Loreta Zelaya MD Vitamin B12 & Folateon 02-08 Cobalamin (Vitamin B12) [Mass/Vol] 391 pg/mL 232 - 1245 pg/mL [facility] Folate [Mass/Vol] 37.3 ng/mL High 4.8 - 24.2 ng/mL [facility] Interpretation and review of laboratory results Abnormal [facility] ACETONE,(BETAHYDROXYBUTYRATE , KETONE) QUANTITATIVE SERUMon 01-10-2025 BETAHYDROXYBUTYRATE 0.13 mmol/L Normal 0.02-0.27 [facility] Comment on above: Performed By: #### K ETB #### [facility] ([address] [address] VIR B-TYPE NATRIURETIC PEPTIDEon 01-10-2025 Natriuretic peptide B (Bld) [Mass/Vol] 16 pg/mL Normal <=100 [facility] Comment on above: Performed By: #### B CUSTOM SKI MAKER #### [facility] ([address] [place] [address] VIR BEDSIDE GLUCOSEon 01-10-2025 Glucose [Mass/Vol] 306 mg/dL High 65-99 [facility] Comment on above: Performed By: #### B EDG #### [facility] ([address] [place] [address] VIR Glucose [Mass/Vol] 476 mg/dL Critically high 65-99 [facility] Comment on above: Performed By: #### B EDG #### [facility] ([address] [place] [address] VIR CBC WITH AUTO DIFFERENTIALon 01-10-2025 BASOPHILS ABSOLUTE COUNT (10*3/UL) BY AUTOMATED COUNT 0.0 10*3/uL Normal 0.0-0.2 [facility] Comment on above: Performed By: #### C BCA #### [facility] ([address] [place] [address] VIR BASOPHILS RELATIVE PERCENT BY AUTOMATED COUNT 0.6 % Normal [facility] Comment on above: Performed By: #### C BCA #### [facility] ([address] [place] [address] VIR CELLAVISION DIFFERENTIAL TYPE AUTOMATED DIFFERENTIAL Normal [facility] Comment on above: Performed By: #### C BCA #### [facility] ([address] [place] [address] VIR Eosinophils (Bld) [#/Vol] 0.1 10*3/uL Normal 0.0-0.4 [facility] Comment on above: Performed By: #### C BCA #### [facility] ([address] [place] [address] VIR EOSINOPHILS RELATIVE PERCENT BY AUTOMATED COUNT 2.1 % Normal [facility] Comment on above: Performed By: #### C BCA #### [facility] ([address] [place] [address] VIR Erythrocyte distribution width (RBC) [Ratio] 13.1 % Normal 11.5-15 [facility] Comment on above: Performed By: #### C BCA #### [facility] ([address] [place] [address] VIR Hematocrit (Bld) [Volume fraction] 41.3 % Normal 35-47 [facility] Comment on above: Performed By: #### C BCA #### [facility] ([address] [place] [address] VIR Hemoglobin (Bld) [Mass/Vol] 14.0 g/dL Normal 11.7-15.5 [facility] Comment on above: Performed By: #### C BCA #### [facility] ([address] [address] VIR LYMPHOCYTES ABSOLUTE COUNT (10*3/UL) BY AUTOMATED COUNT 1.9 10*3/uL Normal 1.0-3.5 [facility] Comment on above: Performed By: #### C BCA #### [facility] ([address] [place] [address] VIR LYMPHOCYTES RELATIVE PERCENT BY AUTOMATED COUNT 31.7 % Normal [facility] Comment on above: Performed By: #### C BCA #### [facility] ([address] [place] [address] VIR MCH (RBC) [Entitic mass] 29.1 pg Normal 27-34 [facility] Comment on above: Performed By: #### C BCA #### [facility] ([address] [place] [address] VIR MCHC (RBC) [Mass/Vol] 33.9 g/dL Normal 32-36 [facility] Comment on above: Performed By: #### C BCA #### [facility] ([address] [place] [address] VIR MCV (RBC) [Entitic vol] 86 fL Normal 80-100 [facility] Comment on above: Performed By: #### C BCA #### [facility] ([address] [place] [address] VIR MONOCYTES ABSOLUTE COUNT (10*3/UL) BY AUTOMATED COUNT 0.4 10*3/uL Normal 0.0-0.9 [facility] Comment on above: Performed By: #### C BCA #### [facility] ([address] [place] [address] VIR MONOCYTES RELATIVE PERCENT BY AUTOMATED COUNT 5.9 % Normal [facility] Comment on above: Performed By: #### C BCA #### [facility] ([address] [place] [address] VIR NEUTROPHILS ABSOLUTE COUNT BY AUTOMATED COUNT 3.6 10*3/uL Normal 1.5-6.6 [facility] Comment on above: Performed By: #### C BCA #### [facility] ([address] [place] [address] VIR NEUTROPHILS RELATIVE PERCENT BY AUTOMATED COUNT 59.7 % Normal [facility] Comment on above: Performed By: #### C BCA #### [facility] ([address] [place] [address] VIR Platelet mean volume (Bld) [Entitic vol] 7.9 fL Normal 7-12 [facility] Comment on above: Performed By: #### C BCA #### [facility] ([address] [place] [address] VIR Platelets (Bld) [#/Vol] 256 10*3/uL Normal 150-450 [facility] Comment on above: Performed By: #### C BCA #### [facility] ([address] [place] [address] VIR RBC COUNT 4.82 X10E12/L Normal 3.8-5.2 [facility] Comment on above: Performed By: #### C BCA #### [facility] ([address] [place] [address] VIR WBC (Bld) [#/Vol] 6.0 10*3/uL Normal 4-11 [facility] Comment on above: Performed By: #### C BCA #### [facility] ([address] [place] [address] VIR COMPREHENSIVE METABOLIC PANE [place] 01-10-2025 Albumin [Mass/Vol] 3.4 g/dL Normal 3.2-5.3 [facility] Comment on above: Performed By: #### C MP #### [facility] ([address] [place] [address] VIR ALP [Catalytic activity/Vol] 118 U/L Normal 39-130 [facility] Comment on above: Performed By: #### C MP #### [facility] ([address] [place] [address] VIR ALT [Catalytic activity/Vol] 32 U/L High <=31 [facility] Comment on above: Performed By: #### C MP #### [facility] ([address] [place] [address] VIR Anion gap [Moles/Vol] 6 mmol/L Normal 5-15 [facility] Comment on above: Performed By: #### C MP #### [facility] ([address] [place] [address] VIR AST [Catalytic activity/Vol] 14 U/L Normal <=41 [facility] Comment on above: Performed By: #### C MP #### [facility] ([address] [place] [address] VIR Bilirubin [Mass/Vol] 0.4 mg/dL Normal 0.3-1.2 [facility] Comment on above: Performed By: #### C MP #### [facility] ([address] [place] [address] VIR Calcium [Mass/Vol] 8.6 mg/dL Normal 8.5-10.5 [facility] Comment on above: Performed By: #### C MP #### [facility] ([address] [place] [address] VIR Chloride [Moles/Vol] 101 mmol/L Normal 98-109 [facility] Comment on above: Performed By: #### C MP #### [facility] ([address] [place] [address] VIR CO2 [Moles/Vol] 25 mmol/L Normal 22-32 [facility] Comment on above: Performed By: #### C MP #### [facility] ([address] [place] [address] VIR Creatinine [Mass/Vol] 0.45 mg/dL Normal 0.40-1.00 [facility] Comment on above: Result Comment: METH OD TRACEABLE TO IDMS STANDARD Performed By: #### C MP #### [facility] ([address] [place] [address] VIR EGFR (CKD-EPI) NON-RACE DEPENDENT >^90 Normal >=60 [facility] Comment on above: Result Comment: Repo rted eGFR is based on the CKD-EPI 2020 equation that does not use a race coefficient. Performed By: #### C MP #### [facility] ([address] [place] [address] VIR Glucose [Mass/Vol] 401 mg/dL Critically high 65-99 P [facility] Comment on above: Performed By: #### C MP #### [facility] ([address] [place] [address] VIR Potassium [Moles/Vol] 4.1 mmol/L Normal 3.5-5.0 [facility] Comment on above: Performed By: #### C MP #### [facility] ([address] [place] [address] VIR Protein [Mass/Vol] 6.2 g/dL Normal 6.0-8.0 [facility] Comment on above: Performed By: #### C MP #### [facility] ([address] [place] [address] VIR Sodium [Moles/Vol] 132 mmol/L Low 134-146 [facility] Comment on above: Performed By: #### C MP #### [facility] ([address] [place] [address] VIR Urea nitrogen [Mass/Vol] 14 mg/dL Normal 5-23 [facility] Comment on above: Performed By: #### C MP #### [facility] ([address] [place] [address] VIR LACTATE W/ REFLEXon 01-11-20 LACTATE W/REFLEX 1.3 mmol/L Normal 0.4-2.0 [facility] Comment on above: Order Comment: Resul t did not trigger repeat Lactate, re-order if needed. Performed By: #### L ACTS #### [facility] ([address] [place] [address] VIR MAGNESIUMon 01-10-2025 Magnesium [Mass/Vol] 1.8 mg/dL Normal 1.8-2.6 [facility] Comment on above: Performed By: #### M G #### [facility] ([place] [address] [place] [address] VIR PH, VENOUSon 01-10-2025 PH VENOUS 7.439 High 7.320-7.420 [facility] Comment on above: Performed By: #### P HV #### [facility] ([place] [address] [place] [address] VIR POCT NURSING URINE MACROSCOP IC UAon 01-10-2025 BILIRUBIN RICKY Negative Normal Negative [facility] Comment on above: Performed By: #### N UM #### [facility] ([place] [address] [place] [address] VIR BLOOD/HGB RICKY Negative Normal Negative [facility] Comment on above: Performed By: #### N UM #### [facility] ([address] [place] [address] VIR GLUCOSE RICKY >=1000 mg/dL Abnormal Negative [facility] Comment on above: Performed By: #### N UM #### [facility] ([place] [address] [place] [address] VIR KETONES RICKY Negative Normal Negative [facility] Comment on above: Performed By: #### N UM #### [facility] ([place] [address] [place] [address] VIR LEUKOCYTE ESTERASE RICKY Negative Normal Negative [facility] Comment on above: Performed By: #### N UM #### [facility] ([place] [address] [place] [address] VIR NITRITE RICKY Negative Normal Negative [facility] Comment on above: Performed By: #### N UM #### [facility] ([place] [address] [place] [address] VIR PH RICKY 7.0 Normal 5.0, 6.0, 6.5, 7.0, 7.5, 8.0, 8.5, 5.5 [facility] Comment on above: Performed By: #### N UM #### [facility] ([facility]) [address] [place] [address] VIR PROTEIN RICKY Negative Normal Negative [facility] Comment on above: Performed By: #### N UM #### [facility] ([facility]) [address] [place] [address] [place] [address] VIR SPECIFIC GRAVITY RICKY 1.015 Normal 1.010, 1.015, 1.020, 1.025 [facility] Comment on above: Performed By: #### N UM #### [facility] ([facility]) [address] [place] [address] [place] [address] VIR UROBILINOGEN RICKY 0.2 E.U./dL Normal [facility] Comment on above: Performed By: #### N UM #### [facility] ([address] [place] [address] VIR DBT Breast - bilateral diagn osticon 12-25-2024 No evidence of malignancy either breast. There is no imaging correlate to the patient's bilateral scant clear nipple discharge which may be on the basis of hormonal imbalance. Clinical and laboratory correlation and follow-up is advised. BI-RADS 1 BIRADS: BIRADS - CATEGORY 1 Negative, no evidence of malignancy. Normal interval follow-up is recommended in 12 months. OVERALL ASSESSMENT - NEGATIVE A letter of notification will be sent to the patient regarding the results. [employer] recommends annual mammograms for women 40 years and older. Performing Facility: [place] [address] [facility] Bethany Ley MD - 12/25/2024 EXAMINATION: DIAGNOSTIC DIGITAL BILATERAL BREASTS MAMMOGRAM WITH TOMOSYNTHESIS; TARGETED ULTRASOUND OF THE RIGHT BREAST; TARGETED ULTRASOUND OF THE LEFT BREAST 12/25/2024 2:32 pm; 12/25/2024 2:43 pm TECHNIQUE: Diagnostic mammography of the bilateral breasts was performed with tomosynthesis. 2D standard and 3D tomosynthesis combination imaging performed through both breasts. Computer aided detection was utilized in the interpretation of this exam.; Targeted ultrasound of the right breast was performed.; Target ultrasound of the left breast was performed. VIEWS: MLO and craniocaudal views both breasts. COMPARISON: 08 Nov 2020 [facility] HISTORY: ORDERING SYSTEM PROVIDED HISTORY: Nipple discharge Patient has thyroid hormone balance. 12 year history of oral contraception. No HRT therapy or breast interventions. Scant bilateral nipple discharge, clear, x6 years. Recent prolactin level within normal limits. FINDINGS: Mammogram: Density: Breasts are composed of scattered fibroglandular density. Bilateral breasts are composed of scattered fibroglandular density. No skin thickening, nipple contour changes, suspicious calcifications, suspicious masses, areas of architectural distortion or significant interval changes are noted. Ultrasound: Right breast: Targeted ultrasonography behind the right nipple reveals no worrisome cystic or solid mass lesions. No ductal ectasia is noted. Left breast: Targeted ultrasonography behind the left nipple reveals no cystic or solid mass lesions. No ductal ectasia is noted. IMPRESSION: No evidence of malignancy either breast. There is no imaging correlate to the patient's bilateral scant clear nipple discharge which may be on the basis of hormonal imbalance. Clinical and laboratory correlation and follow-up is advised. BI-RADS 1 BIRADS: BIRADS - CATEGORY 1 Negative, no evidence of malignancy. Normal interval follow-up is recommended in 12 months. OVERALL ASSESSMENT - NEGATIVE A letter of notification will be sent to the patient regarding the results. [employer] recommends annual mammograms for women 40 years and older. Performing Facility: [place] [address] [facility] Radiology Study observation (narrative) Milton hernandez [facility] HIPOLITO DIGITAL DIAGNOSTIC BILATERALon 12-25-2024 [facility] HIPOLITO DIGITAL DIAGNOSTIC BILATERAL EXAMINATION: DIAGNOSTIC DIGITAL BILATERAL BREASTS MAMMOGRAM WITH TOMOSYNTHESIS; TARGETED ULTRASOUND OF THE RIGHT BREAST; TARGETED ULTRASOUND OF THE LEFT BREAST 12/25/2024 2:32 pm; 12/25/2024 2:43 pm TECHNIQUE: Diagnostic mammography of the bilateral breasts was performed with tomosynthesis. 2D standard and 3D tomosynthesis combination imaging performed through both breasts. Computer aided detection was utilized in the interpretation of this exam.; Targeted ultrasound of the right breast was performed.; Target ultrasound of the left breast was performed. VIEWS: MLO and craniocaudal views both breasts. COMPARISON: 08 Nov 2020 [facility] HISTORY: ORDERING SYSTEM PROVIDED HISTORY: Nipple discharge Patient has thyroid hormone balance. 12 year history of oral contraception. No HRT therapy or breast interventions. Scant bilateral nipple discharge, clear, x6 years. Recent prolactin level within normal limits. FINDINGS: Mammogram: Density: Breasts are composed of scattered fibroglandular density. Bilateral breasts are composed of scattered fibroglandular density. No skin thickening, nipple contour changes, suspicious calcifications, suspicious masses, areas of architectural distortion or significant interval changes are noted. Ultrasound: Right breast: Targeted ultrasonography behind the right nipple reveals no worrisome cystic or solid mass lesions. No ductal ectasia is noted. Left breast: Targeted ultrasonography behind the left nipple reveals no cystic or solid mass lesions. No ductal ectasia is noted. IMPRESSION: No evidence of malignancy either breast. There is no imaging correlate to the patient's bilateral scant clear nipple discharge which may be on the basis of hormonal imbalance. Clinical and laboratory correlation and follow-up is advised. BI-RADS 1 BIRADS: BIRADS - CATEGORY 1 Negative, no evidence of malignancy. Normal interval follow-up is recommended in 12 months. OVERALL ASSESSMENT - NEGATIVE A letter of notification will be sent to the patient regarding the results. [employer] recommends annual mammograms for women 40 years and older. Performing Facility: [place] [address] Interpreted by: Bethany Melchor MD Signed by: Bethany Melchor MD 12/25/24 Final result Normal [facility] No Panel Informationon 12-25 No evidence of malignancy either breast. There is no imaging correlate to the patient's bilateral scant clear nipple discharge which may be on the basis of hormonal imbalance. Clinical and laboratory correlation and follow-up is advised. BI-RADS 1 BIRADS: BIRADS - CATEGORY 1 Negative, no evidence of malignancy. Normal interval follow-up is recommended in 12 months. OVERALL ASSESSMENT - NEGATIVE A letter of notification will be sent to the patient regarding the results. [employer] recommends annual mammograms for women 40 years and older. [facility] RIS CONSOLIDATED EXAMINATION: DIAGNOSTIC DIGITAL BILATERAL BREASTS MAMMOGRAM WITH TOMOSYNTHESIS; TARGETED ULTRASOUND OF THE RIGHT BREAST; TARGETED ULTRASOUND OF THE LEFT BREAST 12/25/2024 2:32 pm; 12/25/2024 2:43 pm TECHNIQUE: Diagnostic mammography of the bilateral breasts was performed with tomosynthesis. 2D standard and 3D tomosynthesis combination imaging performed through both breasts. Computer aided detection was utilized in the interpretation of this exam.; Targeted ultrasound of the right breast was performed.; Target ultrasound of the left breast was performed. VIEWS: MLO and craniocaudal views both breasts. COMPARISON: 08 Nov 2020 [facility] HISTORY: ORDERING SYSTEM PROVIDED HISTORY: Nipple discharge Patient has thyroid hormone balance. 12 year history of oral contraception. No HRT therapy or breast interventions. Scant bilateral nipple discharge, clear, x6 years. Recent prolactin level within normal limits. FINDINGS: Mammogram: Density: Breasts are composed of scattered fibroglandular density. Bilateral breasts are composed of scattered fibroglandular density. No skin thickening, nipple contour changes, suspicious calcifications, suspicious masses, areas of architectural distortion or significant interval changes are noted. Ultrasound: Right breast: Targeted ultrasonography behind the right nipple reveals no worrisome cystic or solid mass lesions. No ductal ectasia is noted. Left breast: Targeted ultrasonography behind the left nipple reveals no cystic or solid mass lesions. No ductal ectasia is noted. [facility] Bethany Ley MD - 12/25/2024 EXAMINATION: DIAGNOSTIC DIGITAL BILATERAL BREASTS MAMMOGRAM WITH TOMOSYNTHESIS; TARGETED ULTRASOUND OF THE RIGHT BREAST; TARGETED ULTRASOUND OF THE LEFT BREAST 12/25/2024 2:32 pm; 12/25/2024 2:43 pm TECHNIQUE: Diagnostic mammography of the bilateral breasts was performed with tomosynthesis. 2D standard and 3D tomosynthesis combination imaging performed through both breasts. Computer aided detection was utilized in the interpretation of this exam.; Targeted ultrasound of the right breast was performed.; Target ultrasound of the left breast was performed. VIEWS: MLO and craniocaudal views both breasts. COMPARISON: 08 Nov 2020 [facility] HISTORY: ORDERING SYSTEM PROVIDED HISTORY: Nipple discharge Patient has thyroid hormone balance. 12 year history of oral contraception. No HRT therapy or breast interventions. Scant bilateral nipple discharge, clear, x6 years. Recent prolactin level within normal limits. FINDINGS: Mammogram: Density: Breasts are composed of scattered fibroglandular density. Bilateral breasts are composed of scattered fibroglandular density. No skin thickening, nipple contour changes, suspicious calcifications, suspicious masses, areas of architectural distortion or significant interval changes are noted. Ultrasound: Right breast: Targeted ultrasonography behind the right nipple reveals no worrisome cystic or solid mass lesions. No ductal ectasia is noted. Left breast: Targeted ultrasonography behind the left nipple reveals no cystic or solid mass lesions. No ductal ectasia is noted. IMPRESSION: No evidence of malignancy either breast. There is no imaging correlate to the patient's bilateral scant clear nipple discharge which may be on the basis of hormonal imbalance. Clinical and laboratory correlation and follow-up is advised. BI-RADS 1 BIRADS: BIRADS - CATEGORY 1 Negative, no evidence of malignancy. Normal interval follow-up is recommended in 12 months. OVERALL ASSESSMENT - NEGATIVE A letter of notification will be sent to the patient regarding the results. [employer] recommends annual mammograms for women 40 years and older. [facility] [employer] Radiology Study observation (narrative) [facility] [employer] No Panel InformationOrdered By: Bethany Melchor on 12-25-2024 [facility] [employer] Work Phone: US BREAST LIMITED LEFTon US BREAST LIMITED LEFT EXAMINATION: DIAGNOSTIC DIGITAL BILATERAL BREASTS MAMMOGRAM WITH TOMOSYNTHESIS; TARGETED ULTRASOUND OF THE RIGHT BREAST; TARGETED ULTRASOUND OF THE LEFT BREAST 12/25/2024 2:32 pm; 12/25/2024 2:43 pm TECHNIQUE: Diagnostic mammography of the bilateral breasts was performed with tomosynthesis. 2D standard and 3D tomosynthesis combination imaging performed through both breasts. Computer aided detection was utilized in the interpretation of this exam.; Targeted ultrasound of the right breast was performed.; Target ultrasound of the left breast was performed. VIEWS: MLO and craniocaudal views both breasts. COMPARISON: 08 Nov 2020 [facility] HISTORY: ORDERING SYSTEM PROVIDED HISTORY: Nipple discharge Patient has thyroid hormone balance. 12 year history of oral contraception. No HRT therapy or breast interventions. Scant bilateral nipple discharge, clear, x6 years. Recent prolactin level within normal limits. FINDINGS: Mammogram: Density: Breasts are composed of scattered fibroglandular density. Bilateral breasts are composed of scattered fibroglandular density. No skin thickening, nipple contour changes, suspicious calcifications, suspicious masses, areas of architectural distortion or significant interval changes are noted. Ultrasound: Right breast: Targeted ultrasonography behind the right nipple reveals no worrisome cystic or solid mass lesions. No ductal ectasia is noted. Left breast: Targeted ultrasonography behind the left nipple reveals no cystic or solid mass lesions. No ductal ectasia is noted. IMPRESSION: No evidence of malignancy either breast. There is no imaging correlate to the patient's bilateral scant clear nipple discharge which may be on the basis of hormonal imbalance. Clinical and laboratory correlation and follow-up is advised. BI-RADS 1 BIRADS: BIRADS - CATEGORY 1 Negative, no evidence of malignancy. Normal interval follow-up is recommended in 12 months. OVERALL ASSESSMENT - NEGATIVE A letter of notification will be sent to the patient regarding the results. [employer] recommends annual mammograms for women 40 years and older. Interpreted by: Bethany Melchor MD Signed by: Bethany Melchor MD 12/25/24 Final result Normal [facility] US BREAST LIMITED RIGHTon US BREAST LIMITED RIGHT EXAMINATION: DIAGNOSTIC DIGITAL BILATERAL BREASTS MAMMOGRAM WITH TOMOSYNTHESIS; TARGETED ULTRASOUND OF THE RIGHT BREAST; TARGETED ULTRASOUND OF THE LEFT BREAST 12/25/2024 2:32 pm; 12/25/2024 2:43 pm TECHNIQUE: Diagnostic mammography of the bilateral breasts was performed with tomosynthesis. 2D standard and 3D tomosynthesis combination imaging performed through both breasts. Computer aided detection was utilized in the interpretation of this exam.; Targeted ultrasound of the right breast was performed.; Target ultrasound of the left breast was performed. VIEWS: MLO and craniocaudal views both breasts. COMPARISON: 08 Nov 2020 [facility] HISTORY: ORDERING SYSTEM PROVIDED HISTORY: Nipple discharge Patient has thyroid hormone balance. 12 year history of oral contraception. No HRT therapy or breast interventions. Scant bilateral nipple discharge, clear, x6 years. Recent prolactin level within normal limits. FINDINGS: Mammogram: Density: Breasts are composed of scattered fibroglandular density. Bilateral breasts are composed of scattered fibroglandular density. No skin thickening, nipple contour changes, suspicious calcifications, suspicious masses, areas of architectural distortion or significant interval changes are noted. Ultrasound: Right breast: Targeted ultrasonography behind the right nipple reveals no worrisome cystic or solid mass lesions. No ductal ectasia is noted. Left breast: Targeted ultrasonography behind the left nipple reveals no cystic or solid mass lesions. No ductal ectasia is noted. IMPRESSION: No evidence of malignancy either breast. There is no imaging correlate to the patient's bilateral scant clear nipple discharge which may be on the basis of hormonal imbalance. Clinical and laboratory correlation and follow-up is advised. BI-RADS 1 BIRADS: BIRADS - CATEGORY 1 Negative, no evidence of malignancy. Normal interval follow-up is recommended in 12 months. OVERALL ASSESSMENT - NEGATIVE A letter of notification will be sent to the patient regarding the results. [employer] recommends annual mammograms for women 40 years and older. Interpreted by: Bethany Melchor MD Signed by: Bethany Melchor MD 12/25/24 Final result Normal [facility] CBC auto differentialon - Basophils (Bld) [#/Vol] 0.05 10*3/uL [facility] Basophils/100 WBC (Bld) 1 % 0 - 2 % B on [facility] Eosinophils (Bld) [#/Vol] 0.05 10*3/uL [facility] Eosinophils/100 WBC (Bld) 1 % 1 - 4 % [facility] Erythrocyte distribution width (RBC) [Ratio] 11.6 % Low 11.8 - 14.4 % [facility] Hematocrit (Bld) [Volume fraction] 41 % 36.3 - 47.1 % [facility] Hemoglobin (Bld) [Mass/Vol] 13.6 g/dL 11.9 - 15.1 g/dL [facility] Immature granulocytes (Bld) [#/Vol] 0 10*3/uL [facility] Immature granulocytes/100 WBC (Bld) 0 % [address] [facility] Interpretation and review of laboratory results Abnormal [facility] Lymphocytes/100 WBC (Bld) 56 % High 24 - 43 % [facility] Lymphocytes/100 WBC (Bld) 2.92 % [facility] MCH (RBC) [Entitic mass] 29.9 pg 25.2 - 33.[address] [facility] MCHC (RBC) [Mass/Vol] 33.2 g/dL 28.4 - 34.8 g/dL [facility] MCV (RBC) [Entitic vol] 90.1 fL 82.6 - 102.[address] [facility] Monocytes/100 WBC (Bld) 2 % Low 3 - 12 % [facility] [facility] Monocytes/100 WBC (Bld) 0.1 % B on [facility] Morphology Jerson (Bld) [Interp] Normal [facility] Neutrophils/100 WBC (Bld) 40 % 36 - 65 % [facility] Nucleated RBC/100 WBC (Bld) [Ratio] 0 % 0.0 per [address] [facility] Platelet mean volume (Bld) [Entitic vol] 9.6 fL 8.1 - 13.[address] [facility] Platelets (Bld) [#/Vol] 262 10*3/uL [facility] RBC (Bld) [#/Vol] 4.55 10*6/uL 3.95 - 5.1 1 m/uL [facility] Segmented neutrophils/100 WBC (Bld) 2.08 % [facility] WBC other (Bld) [#/Vol] 5.2 B on [facility] CBC with Diffon 12-21-2024 Abs. Basophil 0.05 k/uL Normal 0.0-0.2 [facility] Comment on above: Performed By: #### V BG #### [facility] [address] [place] [address] [place] [address] Outplacement Consultant: Loreta Zelaya MD Abs.Imm.Granulocyte 0.00 k/uL Normal 0.00-0.30 [facility] Comment on above: Performed By: #### V BG #### [facility] [address] [place] [address] Outplacement Consultant: Loreta Zelaya MD Abs.Neutrophil (Seg) 2.08 k/uL Normal 1.50-8.10 [facility] Comment on above: Performed By: #### V BG #### [facility] [address] [place], [place] [id number] Outplacement Consultant: Loreta Zelaya MD Basophils/100 WBC (Bld) 1 % Normal 0-2 [facility] Comment on above: Performed By: #### V BG #### [facility] [address] [place], [place] [id number] Outplacement Consultant: Loreta Zelaya MD Eosinophils (Bld) [#/Vol] 0.05 10*3/uL Normal 0.00-0.44 [facility] Comment on above: Performed By: #### V BG #### [facility] [address] [place], [facility]83 Outplacement Consultant: Loreta Zelaya MD Eosinophils/100 WBC (Bld) 1 % Normal 1-4 [facility] Comment on above: Performed By: #### V BG #### [facility] [address] [place] [address] Dr[place], [facility]83 Outplacement Consultant: Loreta Zelaya MD Immature granulocytes/100 WBC (Bld) 0 % Normal 0 [facility] Comment on above: Performed By: #### V BG #### [facility] [address] [place] [address] Dr. [place], [facility]83 Outplacement Consultant: Loreta Zelaya MD Lymphocytes (Bld) [#/Vol] 2.92 10*3/uL Normal 1.10-3.70 [facility] Comment on above: Performed By: #### V BG #### [facility] [address] [place], [place] [id number] Outplacement Consultant: Loreta Zelaya MD Lymphocytes/100 WBC (Bld) 56 % High 24-43 [facility] Comment on above: Performed By: #### V BG #### [facility] [address] [place], [place] [id number] Outplacement Consultant: Loreta Zelaya MD Monocytes (Bld) [#/Vol] 0.10 10*3/uL Normal 0.10-1.20 [facility] Comment on above: Performed By: #### V BG #### [facility] [address] [place], [place] [id number] Outplacement Consultant: Loreta Zelaya MD Monocytes/100 WBC (Bld) 2 % Low 3-12 [facility] Comment on above: Performed By: #### V BG #### [facility] [address] [place], [facility]83 Outplacement Consultant: Loreta Zelaya MD Morphology Jerson (Bld) [Interp] Normal Normal [facility] Comment on above: Performed By: #### V BG #### [address] [place], [facility]83 Outplacement Consultant: Loreta Zelaya MD Neutrophil (Seg) 40 % Normal 36-65 [facility] Comment on above: Performed By: #### V BG #### [address] [place], [facility]83 Outplacement Consultant: Loreta Zelaya MD Erythrocyte distribution width (RBC) [Ratio] 11.6 % Low 11.8-14.4 [facility] Comment on above: Performed By: #### V BG #### [address] [place], [facility]83 Outplacement Consultant: Loreta Zelaya MD Hematocrit (Bld) [Volume fraction] 41.0 % Normal 36.3-47.1 [facility] Comment on above: Performed By: #### V BG #### [address] [place], [place] [id number] Outplacement Consultant: Loreta Zelaya MD Hemoglobin (Bld) [Mass/Vol] 13.6 g/dL Normal 11.9-15.1 [facility] Comment on above: Performed By: #### V BG #### [address] [place], [facility]83 Outplacement Consultant: Loreta Zelaya MD MCH (RBC) [Entitic mass] 29.9 pg Normal 25.2-33.5 [facility] Comment on above: Performed By: #### V BG #### [address] [place] [address] Outplacement Consultant: Loreta Zelaya MD MCHC (RBC) [Mass/Vol] 33.2 g/dL Normal 28.4-34.8 [facility] Comment on above: Performed By: #### V BG #### [address] [place], [place] [id number] Outplacement Consultant: Loreta Zelaya MD MCV (RBC) [Entitic vol] 90.1 fL Normal 82.6-102.9 [facility] Comment on above: Performed By: #### V BG #### [address] [place], [place] [id number] Outplacement Consultant: Loreta Zelaya MD NRBC Automated 0.0 per 100 WBC Normal 0.0 [facility] Comment on above: Performed By: #### V BG #### [address] [place] [address] Outplacement Consultant: Loreta Zelaya MD Platelet mean volume (Bld) [Entitic vol] 9.6 fL Normal 8.1-13.5 [facility] Comment on above: Performed By: #### V BG #### [address] [place] [address] Outplacement Consultant: Loreta Zelaya MD Platelets (Bld) [#/Vol] 262 10*3/uL Normal 138-453 [facility] Comment on above: Performed By: #### V BG #### [address] [place] [address] Outplacement Consultant: Loreta Zelaya MD RBC (Bld) [#/Vol] 4.55 10*6/uL Normal 3.95-5.11 [facility] Comment on above: Performed By: #### V BG #### [facility] [address] [place], [place] [id number] Outplacement Consultant: Loreta Zelaya MD WBC (Bld) [#/Vol] 5.2 10*3/uL Normal 3.5-11.3 [facility] Comment on above: Performed By: #### V BG #### [facility] [address] [place], [place] [id number] Outplacement Consultant: Loreta Zelaya MD Comp Metabolic Pr/rfx MGon 0 6- Albumin [Mass/Vol] 3.6 g/dL Normal 3.5-5.2 [facility] Comment on above: Performed By: #### V BG #### [address] [place] [id number] Outplacement Consultant: Loreta Zelaya MD Albumin/Glob Ratio 1.5 Normal 1.0-2.5 [facility] Comment on above: Performed By: #### V BG #### [address] [place], [place] [phone] Outplacement Consultant: Loreta Zelaya MD Alkaline Phos 103 U/L Normal 35-104 [facility] Comment on above: Performed By: #### V BG #### [facility] [address] [place], [place] [id number] Outplacement Consultant: Loreta Zelaya MD ALT [Catalytic activity/Vol] 19 U/L Normal 10-35 [facility] Comment on above: Performed By: #### V BG #### [facility] [address] [place] [address] Outplacement Consultant: Loreta Zelaya MD Anion gap [Moles/Vol] 10 mmol/L Normal 9-16 [facility] Comment on above: Performed By: #### V BG #### [facility] [address] [place], [place] [id number] Outplacement Consultant: Loreta Zelaya MD AST [Catalytic activity/Vol] 13 U/L Normal 10-35 [facility] Comment on above: Performed By: #### V BG #### [facility] [address] [place], [place] [id number] Outplacement Consultant: Loreta Zelaya MD Bilirubin [Mass/Vol] 0.2 mg/dL Normal 0.00-1.20 [facility] Comment on above: Performed By: #### V BG #### [facility] [address] [place], [place] [id number] Outplacement Consultant: Loreta Zelaya MD BUN/CRE Ratio 35 High 9-20 [facility] Comment on above: Performed By: #### V BG #### [facility] [address] [place], [place] [id number] Outplacement Consultant: Loreta Zelaya MD Calcium [Mass/Vol] 8.4 mg/dL Low 8.6-10.4 [facility] Comment on above: Performed By: #### V BG #### [facility] [address] [place], [place] [id number] Outplacement Consultant: Loreta Zelaya MD Chloride [Moles/Vol] 107 mmol/L Normal 98-107 [facility] Comment on above: Performed By: #### V BG #### [facility] [address] [place], [place] [id number] Outplacement Consultant: Loreta Zelaya MD CO2 [Moles/Vol] 19 mmol/L Low 20-31 [facility] Comment on above: Performed By: #### V BG #### [facility] [address] [place], [place] [id number] Outplacement Consultant: Loreta Zelaya MD Creatinine [Mass/Vol] 0.4 mg/dL Low 0.50-0.90 [facility] Comment on above: Performed By: #### V BG #### [facility] [address] [place] [address] Outplacement Consultant: Loreta Zelaya MD GFR/1.73 sq M.predicted among non-blacks MDRD (S/P/Bld) [Vol rate/Area] mL/min/{1.73_m2} Normal >60 [facility] Comment on above: Result Comment: These results are not intended for use in patients <18 years of age. eGFR results are calculated without a race factor using the 2020 CKD-EPI equation. Careful clinical correlation is recommended, particularly when comparing to results calculated using previous equations. The CKD-EPI equation is less accurate in patients with extremes of muscle mass, extra-renal metabolism of creatine, excessive creatine ingestion, or following therapy that affects renal tubular secretion. Performed By: #### V BG #### [facility] [address] [place] [address] [place] [address] Outplacement Consultant: Loreta Zelaya MD Glucose [Mass/Vol] 146 mg/dL High 74-99 [facility] Comment on above: Performed By: #### V BG #### [facility] [address] [place] [address] Outplacement Consultant: Loreta Zelaya MD Potassium [Moles/Vol] 3.8 mmol/L Normal 3.7-5.3 [facility] Comment on above: Performed By: #### V BG #### [facility] [address] [place] [address] [place] [address] Outplacement Consultant: Loreta Zelaya MD Protein [Mass/Vol] 6.0 g/dL Low 6.6-8.7 [facility] Comment on above: Performed By: #### V BG #### [facility] [address] [place] [address] [place] [address] Outplacement Consultant: Loreta Zelaya MD Sodium [Moles/Vol] 136 mmol/L Normal 136-145 [facility] Comment on above: Performed By: #### V BG #### [facility] [address] [place] [address] Outplacement Consultant: Loreta Zelaya MD Urea nitrogen [Mass/Vol] 14 mg/dL Normal 6-20 [facility] Comment on above: Performed By: #### V BG #### [facility] [address] [place] [address] Outplacement Consultant: Loreta Zelaya MD Comprehensive Metabolic Pane l w/ Reflex to MGon 12-21-2024 Albumin [Mass/Vol] 3.6 g/dL 3.5 - 5.2 g/dL [facility] Albumin/Globulin [Mass ratio] 1.5 {ratio} 1.0 - 2.[address] [facility] ALP [Catalytic activity/Vol] 103 U/L 35 - 104 U/L [facility] ALT [Catalytic activity/Vol] 19 U/L 10 - 35 U/L [facility] Anion gap [Moles/Vol] 10 mmol/L 9 - 16 mmol/L [facility] AST [Catalytic activity/Vol] 13 U/L 10 - 35 U/L [facility] Bilirubin [Mass/Vol] 0.2 mg/dL 0.00 - 1.20 mg/dL [facility] Calcium [Mass/Vol] 8.4 mg/dL Low 8.6 - 10. 4 mg/dL [facility] Chloride [Moles/Vol] 107 mmol/L 98 - 10 7 mmol/L [facility] CO2 [Moles/Vol] 19 mmol/L Low 20 - 31 mmol/L [facility] Creatinine [Mass/Vol] 0.4 mg/dL Low 0.50 - 0.90 mg/dL [facility] Est, Glom Filt Rate - PINF [facility] Comment on above: These results are not intended for use in patients <18 years of age. eGFR results are calculated without a race factor using the 2020 CKD-EPI equation. Careful clinical correlation is recommended, particularly when comparing to results calculated using previous equations. The CKD-EPI equation is less accurate in patients with extremes of muscle mass, extra-renal metabolism of creatine, excessive creatine ingestion, or following therapy that affects renal tubular secretion. Glucose [Mass/Vol] 146 mg/dL High 74 - 99 mg/dL [facility] Interpretation and review of laboratory results Abnormal [facility] Potassium [Moles/Vol] 3.8 mmol/L 3.7 - 5.3 mmol/L [facility] Protein [Mass/Vol] 6 g/dL Low 6.6 - 8.7 g/dL [facility] Sodium [Moles/Vol] 136 mmol/L 136 - 145 mmol/L [facility] Urea nitrogen [Mass/Vol] 14 mg/dL 6 - 20 mg/dL [facility] Urea nitrogen/Creatinine [Mass ratio] 35 mg/mg High 9 - 20 [facility] [employer] EKG 12 Lead (Chest Pain)Orde red By: Mode Coffman on 12-21-2024 Atrial Rate 88 BPM [facility] Work Phone: P Orange 51 degrees [facility] Work Phone: P-R Interval 138 ms [facility] Work Phone: Q-T Interval 392 ms [facility] Work Phone: QRS Duration 82 ms [facility] Work Phone: QTc Calculation (Bazett) 474 ms [facility] Work Phone: R Orange 107 degrees [facility] Work Phone: T Orange 55 degrees [facility] Work Phone: Ventricular Rate 88 BPM [employer] Work Phone: [facility] Work Phone: EKG 12 Lead (Chest Pain)on 0 12-21-2024 Normal sinus rhythm Rightward axis Borderline ECG ECG not diagnostic for Acute Coronary Syndrome; consider clinical findings When compared with ECG of 16-Oct-2024 20:05, QRS axis Shifted right Confirmed by Mode Coffman ([id number]) on 12/21/2024 8:47:09 AM [facility] Mode Coffman MD - 12/21/2024 Normal sinus rhythm Rightward axis Borderline ECG ECG not diagnostic for Acute Coronary Syndrome; consider clinical findings When compared with ECG of 16-Oct-2024 20:05, QRS axis Shifted right Confirmed by Mode Coffman ([id number]) on 12/21/2024 8:47:[address] [facility] EKG Rhythm Stripon [facility] Glucose, Whole Bloodon 12-21 Glucose [Mass/Vol] 264 mg/dL High 74 - 100 mg/dL [facility] Interpretation and review of laboratory results Abnormal [facility] Glucose [Mass/Vol] 264 mg/dL High 74-100 [facility] Glucose [Mass/Vol] 166 mg/dL High 74 - 100 mg/dL [facility] Interpretation and review of laboratory results Abnormal [facility] Glucose [Mass/Vol] 166 mg/dL High 74-100 [facility] Glucose [Mass/Vol] 195 mg/dL High 74 - 100 mg/dL [facility] Interpretation and review of laboratory results Abnormal [facility] Glucose [Mass/Vol] 195 mg/dL High 74-100 [facility] Urinalysis w/ Microon 2024 Bilirubin, SemiQt,Ur Negative Normal NEG [facility] Comment on above: Performed By: #### U AMIC #### [facility] [address] [place] [address] Outplacement Consultant: Loreta Zelaya MD Blood, Urine Negative Normal NEG [facility] Comment on above: Performed By: #### U AMIC #### [facility] [address] [place] [address] Outplacement Consultant: Loreta Zelaya MD Clarity (U) Clear Normal CLEAR [facility] Comment on above: Performed By: #### U AMIC #### [facility] [address] [place] [address] Outplacement Consultant: Loreta Zelaya MD Color (U) Yellow Normal YEL [facility] Comment on above: Performed By: #### U AMIC #### [facility] [address] [place], [place] [id number] Outplacement Consultant: Loreta Zelaya MD Epithelial cells LM Ql (Urine sed) None Normal 0-25 [facility] Comment on above: Performed By: #### U AMIC #### [facility] [address] [place], [place] [id number] Outplacement Consultant: Loreta Zelaya MD Glucose Ql (U) 3+ mg/dL Abnormal NEG [facility] in Hospital Comment on above: Performed By: #### U AMIC #### [facility] [address] [place] [address] [place], [place] [id number] Outplacement Consultant: Loreta Zelaya MD Ketones Ql (U) 4+ mg/dL Abnormal NEG [facility] Comment on above: Performed By: #### U AMIC #### [facility] [address] [place] [address] [place], [place] [id number] Outplacement Consultant: Loreta Zelaya MD Leukocyte esterase Test strip Ql (U) Negative Normal NEG [facility] Comment on above: Performed By: #### U AMIC #### [facility] [address] [place] [address] [place], [place] [id number] Outplacement Consultant: Loreta Zelaya MD Nitrite,Ur Negative Normal NEG [facility] Comment on above: Performed By: #### U AMIC #### [facility] [address] [place], [place] 4247583 Outplacement Consultant: Loreta Zelaya MD PH,Ur 6.0 Normal 5.0-9.0 [facility] Comment on above: Performed By: #### U AMIC #### [facility] [address] [place], [place] [phone] Outplacement Consultant: Loreta Zelaya MD Protein Ql (U) Negative Normal NEG [facility] Comment on above: Performed By: #### U AMIC #### [facility] [address] [place], [place] 1242583 Outplacement Consultant: Loreta Zelaya MD Spec. [place],Ur <1.005 Low 1.010-1.020 [facility] Comment on above: Performed By: #### U AMIC #### [facility] [address] [place], [place] 8359483 Outplacement Consultant: Loreta Zelaya MD Urine RBC's None Normal 0-2 [facility] Comment on above: Performed By: #### U AMIC #### [facility] [address] [place] [address] [place], [place] 7696783 Outplacement Consultant: Loreta Zelaya MD Urine WBC's None Normal 0-5 [facility] Comment on above: Performed By: #### U AMIC #### [facility] [address] [place] [address] [place], [place] [phone] Outplacement Consultant: Loreta Zelaya MD Urobilinogen,Ur Normal Normal 0.0-1.0 [facility] Comment on above: Performed By: #### U AMIC #### [facility] [address] [place] [address] [place], [place] [id number] Outplacement Consultant: Loreta Zelaya MD Yeast PRESENCE NOTED Abnormal NONE [facility] Comment on above: Performed By: #### U AMIC #### [facility] [address] [place] [address] [place], [place] [id number] Outplacement Consultant: Loreta Zelaya MD Urinalysis with Microscopico n 12-21-2024 Bilirubin Ql (U) Negative NEGATIVE [place] [facility] Clarity (U) Clear Clear Bon [facility] Prot[facility] Color (U) Yellow Yellow Bon [facility] Epithelial cells LM.HPF (Urine sed) [#/Area] None Bon [facility] Prot[facility] Glucose Test strip (U) [Mass/Vol] 3+ Abnormal NEGATIVE mg/dL Bon [facility] Hemoglobin Auto test strip Ql (U) Negative NEGATIVE [facility] Interpretation and review of laboratory results Abnormal [facility] Ketones (U) [Mass/Vol] 4+ Abnormal NEGAT AMITA mg/dL [facility] Leukocyte esterase Test strip Ql (U) Negative NEGATIVE [facility] Nitrite Ql (U) Negative NEGATIVE [facility] pH (U) 6 [pH] 5.0 - 9.[address] [facility] Protein (U) [Mass/Vol] Negative NEGAT AMITA mg/dL [facility] RBC LM.HPF (Urine sed) [#/Area] None [facility] Specific gravity (U) [Rel density] Low 1.010 - 1.[address] [facility] Urobilinogen Qn (U) Normal 0.0 - 1. 0 EU/dL [facility] WBC LM.HPF (Urine sed) [#/Area] None [facility] Yeast LM Ql (Urine sed) PRESENCE NOTED Abnormal None [facility] BMPon 12-20-2024 Anion gap [Moles/Vol] 14 mmol/L 9 - 16 mmol/L [facility] Calcium [Mass/Vol] 7.9 mg/dL Low 8.6 - 10. 4 mg/dL [facility] Chloride [Moles/Vol] 102 mmol/L 98 - 10 7 mmol/L [facility] CO2 [Moles/Vol] 18 mmol/L Low 20 - 31 mmol/L [facility] Creatinine [Mass/Vol] 0.6 mg/dL 0.50 - 0.90 mg/dL [facility] Est, Glom Filt Rate - PINF [facility] Comment on above: These results are not intended for use in patients <18 years of age. eGFR results are calculated without a race factor using the 2020 CKD-EPI equation. Careful clinical correlation is recommended, particularly when comparing to results calculated using previous equations. The CKD-EPI equation is less accurate in patients with extremes of muscle mass, extra-renal metabolism of creatine, excessive creatine ingestion, or following therapy that affects renal tubular secretion. Glucose [Mass/Vol] 370 mg/dL High 74 - 99 mg/dL [facility] Interpretation and review of laboratory results Abnormal [facility] Potassium [Moles/Vol] 4 mmol/L 3.7 - 5.3 mmol/L [facility] Sodium [Moles/Vol] 134 mmol/L Low 136 - 145 mmol/L [facility] Urea nitrogen [Mass/Vol] 16 mg/dL 6 - 20 mg/dL [facility] Urea nitrogen/Creatinine [Mass ratio] 27 mg/mg High 9 - 20 [facility] Basic Metabolic Profon 12-20 Anion gap [Moles/Vol] 14 mmol/L Normal 9-16 [facility] Comment on above: Performed By: #### B MP #### [facility] [address] [place] [address] Outplacement Consultant: Loreta Zelaya MD BUN/CRE Ratio 27 High 9-20 [facility] Comment on above: Performed By: #### B MP #### [facility] [address] [place] [address] Outplacement Consultant: Loreta Zelaya MD Calcium [Mass/Vol] 7.9 mg/dL Low 8.6-10.4 [facility] Comment on above: Performed By: #### B MP #### [facility] [address] [place], [place] [id number] Outplacement Consultant: Loreta Zelaya MD Chloride [Moles/Vol] 102 mmol/L Normal 98-107 [facility] Comment on above: Performed By: #### B MP #### [facility] [address] [place] [address] Outplacement Consultant: Loreta Zelaya MD CO2 [Moles/Vol] 18 mmol/L Low 20-31 [facility] Comment on above: Performed By: #### B MP #### [facility] [address] [place] [address] Outplacement Consultant: Loreta Zelaya MD Creatinine [Mass/Vol] 0.6 mg/dL Normal 0.50-0.90 [facility] Comment on above: Performed By: #### B MP #### [facility] [address] [place] [address] Outplacement Consultant: Loreta Zelaya MD GFR/1.73 sq M.predicted among non-blacks MDRD (S/P/Bld) [Vol rate/Area] mL/min/{1.73_m2} Normal >60 [facility] Comment on above: Result Comment: These results are not intended for use in patients <18 years of age. eGFR results are calculated without a race factor using the 2020 CKD-EPI equation. Careful clinical correlation is recommended, particularly when comparing to results calculated using previous equations. The CKD-EPI equation is less accurate in patients with extremes of muscle mass, extra-renal metabolism of creatine, excessive creatine ingestion, or following therapy that affects renal tubular secretion. Performed By: #### B MP #### [facility] [address] [place] [address] [place] [address] Outplacement Consultant: Loreta Zelaya MD Glucose [Mass/Vol] 370 mg/dL High 74-99 [facility] Comment on above: Performed By: #### B MP #### [address] [place] [address] Outplacement Consultant: Loreta Zelaya MD Potassium [Moles/Vol] 4.0 mmol/L Normal 3.7-5.3 [facility] Comment on above: Performed By: #### B MP #### [facility] [address] [place] [address] [place] [address] Outplacement Consultant: Loreta Zelaya MD Sodium [Moles/Vol] 134 mmol/L Low 136-145 [facility] Comment on above: Performed By: #### B MP #### [facility] [address] [place] [address] Outplacement Consultant: Loreta Zelaya MD Urea nitrogen [Mass/Vol] 16 mg/dL Normal 6-20 [facility] Comment on above: Performed By: #### B MP #### [facility] [address] [place] [address] Outplacement Consultant: Loreta Zelaya MD Beta Hydroxybutyrateon 12-20 Beta Hydroxybutyrate 3.86 mmol/L High 0.02-0.27 [facility] Comment on above: Performed By: #### I NSU #### [facility] [address] [place], [place] [id number] Outplacement Consultant: Gee Royal MD [facility] [address] [place] [address] Outplacement Consultant: Loreta Zelaya MD #### CPEP #### [facility] [address] [place], [place] [id number] Outplacement Consultant: Gee Royal MD Beta-Hydroxybutyrateon 12-20 Beta hydroxybutyrate [Mass/Vol] 3.86 mmol/L High 0.02 - 0.27 mmol/L [facility] Interpretation and review of laboratory results Abnormal [facility] Blood Gas, Venouson 12-21-19 25 Arterial patency Wrist artery --pre arterial puncture NOT APPLICABLE [facility] HCO3 (Bld) [Moles/Vol] 17.9 mmol/L Low 24.0 - 30.0 mmol/L [facility] Interpretation and review of laboratory results Abnormal [facility] Negative Base Excess, Erik 6.3 mmol/L High 0.0 - 2.0 mmol/L [facility] Oxygen gas flow Oxygen delivery system ROOM AIR [facility] Oxygen saturation in Blood 83 % 60.0 - 85.0 % [facility] Oxygen/Inspired gas Respiratory system --on ventilator [address] [facility] pCO2, Erik 32.[address] [facility] pCO2, Erik, Temp Adj 32.4 Low [facility] pH, Erik 7.361 7.32 - 7.[address] [facility] pH, Erik, Temp Adj 7.361 7.320 - 7.[address] [facility] PO2, Erik 48.[address] [facility] pO2, Erik, Temp Adj 48.2 [facility] CBC with Auto Differentialon 12-20-2024 Basophils (Bld) [#/Vol] 0.04 10*3/uL [facility] Basophils/100 WBC (Bld) 1 % 0 - 2 % B on [facility] Eosinophils (Bld) [#/Vol] 0.15 10*3/uL [facility] Eosinophils/100 WBC (Bld) 3 % 1 - 4 % [facility] Erythrocyte distribution width (RBC) [Ratio] 11.6 % Low 11.8 - 14.4 % [facility] Hematocrit (Bld) [Volume fraction] 46.4 % 36.3 - 47.1 % [facility] Hemoglobin (Bld) [Mass/Vol] 15.8 g/dL High 11.9 - 15.1 g/dL [facility] Immature granulocytes (Bld) [#/Vol] [facility] Immature granulocytes/100 WBC (Bld) 0 % [address] [facility] Interpretation and review of laboratory results Abnormal [facility] Lymphocytes/100 WBC (Bld) 43 % 24 - 43 % [facility] Lymphocytes/100 WBC (Bld) 2.46 % [facility] MCH (RBC) [Entitic mass] 30.5 pg 25.2 - 33.[address] [facility] MCHC (RBC) [Mass/Vol] 34.1 g/dL 28.4 - 34.8 g/dL [facility] MCV (RBC) [Entitic vol] 89.6 fL 82.6 - 102.[address] [facility] Monocytes/100 WBC (Bld) 6 % 3 - 12 % B on [facility] Monocytes/100 WBC (Bld) 0.35 % B on [facility] Neutrophils/100 WBC (Bld) 47 % 36 - 65 % [facility] Nucleated RBC/100 WBC (Bld) [Ratio] 0 % 0.0 per [address] [facility] Platelet mean volume (Bld) [Entitic vol] 9.8 fL 8.1 - 13.[address] [facility] Platelets (Bld) [#/Vol] 288 10*3/uL [facility] RBC (Bld) [#/Vol] 5.18 10*6/uL High 3.95 - 5.1 1 m/uL [facility] Segmented neutrophils/100 WBC (Bld) 2.7 % [facility] WBC other (Bld) [#/Vol] 5.7 B on [facility] CBC with Diffon 12-20-2024 Abs. Basophil 0.04 k/uL Normal 0.00-0.20 [facility] Comment on above: Performed By: #### I NSU #### [address] [address] Outplacement Consultant: Gee Royal MD [facility] [address] [place] [address] [place] [id number] Outplacement Consultant: Loreta Zelaya MD #### CPEP #### [address] [address] Outplacement Consultant: Gee Royal MD Abs.Imm.Granulocyte <0.03 Normal 0.00-0.30 [facility] Comment on above: Performed By: #### I NSU #### [address] [address] Outplacement Consultant: Gee Royal MD [address] [place] [id number] Outplacement Consultant: Loreta Zelaya MD #### CPEP #### [address] [address] Outplacement Consultant: Gee Royal MD Abs.Neutrophil (Seg) 2.70 k/uL Normal 1.50-8.10 [facility] Comment on above: Performed By: #### I NSU #### [address] [address] Outplacement Consultant: Gee Royal MD [facility] [address] [place] [address] [place], [place] [phone] Outplacement Consultant: Loreta Zelaya MD #### CPEP #### [address] [address] Outplacement Consultant: Gee Royal MD Basophils/100 WBC (Bld) 1 % Normal 0-2 [facility] Comment on above: Performed By: #### I NSU #### [address] [address] Outplacement Consultant: Gee Royal MD [address] [place] [address] Outplacement Consultant: Loreta Zelaya MD #### CPEP #### [address] [address] Outplacement Consultant: Gee Royal MD Eosinophils (Bld) [#/Vol] 0.15 10*3/uL Normal 0.00-0.44 [facility] Comment on above: Performed By: #### I NSU #### [address] [address] Outplacement Consultant: Gee Royal MD [address] [place], [place] [phone] Outplacement Consultant: Loreta Zelaya MD #### CPEP #### [address] [address] Outplacement Consultant: Gee Royal MD Eosinophils/100 WBC (Bld) 3 % Normal 1-4 [facility] Comment on above: Performed By: #### I NSU #### [address] [address] Outplacement Consultant: Gee Royal MD [facility] [address] [place] [address] Dr[place], [place] [phone] Outplacement Consultant: Loreta Zelaya MD #### CPEP #### [address] [address] Outplacement Consultant: Gee Royal MD Erythrocyte distribution width (RBC) [Ratio] 11.6 % Low 11.8-14.4 [facility] Comment on above: Performed By: #### I NSU #### [address] [address] Outplacement Consultant: Gee Royal MD [address] [place] [phone] Outplacement Consultant: Loreta Zelaya MD #### CPEP #### [address] [address] Outplacement Consultant: Gee Royal MD Hematocrit (Bld) [Volume fraction] 46.4 % Normal 36.3-47.1 [facility] Comment on above: Performed By: #### I NSU #### [address] [address] Outplacement Consultant: Gee Royal MD [address] [place] [phone] Outplacement Consultant: Loreta Zelaya MD #### CPEP #### [address] [address] Outplacement Consultant: Gee Royal MD Hemoglobin (Bld) [Mass/Vol] 15.8 g/dL High 11.9-15.1 [facility] Comment on above: Performed By: #### I NSU #### [address] [address] Outplacement Consultant: Gee Royal MD [address] [place] [phone] Outplacement Consultant: Loreta Zelaya MD #### CPEP #### [address] [address] Outplacement Consultant: Gee Royal MD Immature granulocytes/100 WBC (Bld) 0 % Normal 0 [facility] Comment on above: Performed By: #### I NSU #### [address] [address] Outplacement Consultant: Gee Royal MD [facility] [address] [place] [address] Dr[place] [phone] Outplacement Consultant: Loreta Zelaya MD #### CPEP #### [address] [address] Outplacement Consultant: Gee Royal MD Lymphocytes (Bld) [#/Vol] 2.46 10*3/uL Normal 1.10-3.70 [facility] Comment on above: Performed By: #### I NSU #### [address] [address] Outplacement Consultant: Gee Royal MD [facility] [address] [place] [address] [place] [address] Outplacement Consultant: Loreta Zelaya MD #### CPEP #### [address] [address] Outplacement Consultant: Gee Royal MD Lymphocytes/100 WBC (Bld) 43 % Normal 24-43 [facility] Comment on above: Performed By: #### I NSU #### [address] [address] Outplacement Consultant: Gee Royal MD [facility] [address] [place] [address] [place] [address] Outplacement Consultant: Loreta Zelaya MD #### CPEP #### [address] [address] Outplacement Consultant: Gee Royal MD MCH (RBC) [Entitic mass] 30.5 pg Normal 25.2-33.5 [facility] Comment on above: Performed By: #### I NSU #### [address] [address] Outplacement Consultant: Gee Royal MD [address] [place], [place] [phone] Outplacement Consultant: Loreta Zelaya MD #### CPEP #### [address] [address] Outplacement Consultant: Gee Royal MD MCHC (RBC) [Mass/Vol] 34.1 g/dL Normal 28.4-34.8 [facility] Comment on above: Performed By: #### I NSU #### [address] [address] Outplacement Consultant: Gee Royal MD [address] [place], [place] [phone] Outplacement Consultant: Loreta Zelaya MD #### CPEP #### [address] [address] Outplacement Consultant: Gee Royal MD MCV (RBC) [Entitic vol] 89.6 fL Normal 82.6-102.9 [facility] Comment on above: Performed By: #### I NSU #### [address] [address] Outplacement Consultant: Gee Royal MD [address] [place] [address] Outplacement Consultant: Loreta Zelaya MD #### CPEP #### [address] [address] Outplacement Consultant: Gee Royal MD Monocytes (Bld) [#/Vol] 0.35 10*3/uL Normal 0.10-1.20 [facility] Comment on above: Performed By: #### I NSU #### [address] [address] Outplacement Consultant: Gee Royal MD [address] [place] [address] Outplacement Consultant: Loreta Zelaya MD #### CPEP #### [address] [address] Outplacement Consultant: Gee Royal MD Monocytes/100 WBC (Bld) 6 % Normal 3-12 [facility] Comment on above: Performed By: #### I NSU #### [address] [address] Outplacement Consultant: Gee Royal MD [facility] [address] [place] [address] Outplacement Consultant: Loreta Zelaya MD #### CPEP #### [address] [address] Outplacement Consultant: Gee Royal MD Neutrophil (Seg) 47 % Normal 36-65 [facility] Comment on above: Performed By: #### I NSU #### [address] [address] Outplacement Consultant: Gee Royal MD [facility] [address] [place] [id number] Outplacement Consultant: Loreta Zelaya MD #### CPEP #### [address] [address] Outplacement Consultant: Gee Royal MD NRBC Automated 0.0 per 100 WBC Normal 0.0 [facility] Comment on above: Performed By: #### I NSU #### [address] [address] Outplacement Consultant: Gee Royal MD [facility] [address] [place] [address] Outplacement Consultant: Loreta Zelaya MD #### CPEP #### [address] [address] Outplacement Consultant: Gee Royal MD Platelet mean volume (Bld) [Entitic vol] 9.8 fL Normal 8.1-13.5 [facility] Comment on above: Performed By: #### I NSU #### [place] [address] [place] [address] Outplacement Consultant: Gee Royal MD [facility] [address] [place] [address] [place], [place] [phone] Outplacement Consultant: Loreta Zelaya MD #### CPEP #### [address] [address] Outplacement Consultant: Gee Royal MD Platelets (Bld) [#/Vol] 288 10*3/uL Normal 138-453 [facility] Comment on above: Performed By: #### I NSU #### [address] [address] Outplacement Consultant: Gee Royal MD [address] [place] [phone] Outplacement Consultant: Loreta Zelaya MD #### CPEP #### [address] [address] Outplacement Consultant: Gee Royal MD RBC (Bld) [#/Vol] 5.18 10*6/uL High 3.95-5.11 [facility] Comment on above: Performed By: #### I NSU #### [address] [address] Outplacement Consultant: Gee Royal MD [facility] [address] [place] [address] [place] [phone] Outplacement Consultant: Loreta Zelaya MD #### CPEP #### [address] [address] Outplacement Consultant: Gee Royal MD WBC (Bld) [#/Vol] 5.7 10*3/uL Normal 3.5-11.3 [facility] Comment on above: Performed By: #### I NSU #### [facility] [address] [place] [address] Outplacement Consultant: Gee Royal MD [facility] [address] [place] [address] Outplacement Consultant: Loreta Zelaya MD #### CPEP #### [facility] [address] [place], [place] [phone] Outplacement Consultant: Gee Royal MD [facility] 12-20-2024 Albumin [Mass/Vol] 4.2 g/dL 3.5 - 5.2 g/dL [facility] Albumin/Globulin [Mass ratio] 1.4 {ratio} 1.0 - 2.[address] [facility] ALP [Catalytic activity/Vol] 148 U/L High 35 - 104 U/L [facility] ALT [Catalytic activity/Vol] 27 U/L 10 - 35 U/L [facility] Anion gap [Moles/Vol] 19 mmol/L High 9 - 16 mmol/L [facility] AST [Catalytic activity/Vol] 19 U/L 10 - 35 U/L [facility] Comment on above: Specimen hemolysis h as exceeded the interference as defined by Kat. Value may be falsely increased. Suggest recollection if clinically indicated. Bilirubin [Mass/Vol] 0.3 mg/dL 0.00 - 1.20 mg/dL [facility] Calcium [Mass/Vol] 9.2 mg/dL 8.6 - 10. 4 mg/dL [facility] Chloride [Moles/Vol] 92 mmol/L Low 98 - 10 7 mmol/L [facility] CO2 [Moles/Vol] 19 mmol/L Low 20 - 31 mmol/L [facility] Creatinine [Mass/Vol] 0.6 mg/dL 0.50 - 0.90 mg/dL [facility] Est, Glom Filt Rate - PINF [facility] Comment on above: These results are not intended for use in patients <18 years of age. eGFR results are calculated without a race factor using the 2020 CKD-EPI equation. Careful clinical correlation is recommended, particularly when comparing to results calculated using previous equations. The CKD-EPI equation is less accurate in patients with extremes of muscle mass, extra-renal metabolism of creatine, excessive creatine ingestion, or following therapy that affects renal tubular secretion. Glucose [Mass/Vol] 516 mg/dL Critically high 74 - 9 9 mg/dL [facility] Interpretation and review of laboratory results Abnormal [facility] Potassium [Moles/Vol] 4.8 mmol/L 3.7 - 5.3 mmol/L [facility] Comment on above: Specimen hemolysis h as exceeded the interference as defined by Kat. Value may be falsely increased. Suggest recollection if clinically indicated. Protein [Mass/Vol] 7.2 g/dL 6.6 - 8.7 g/dL [facility] Sodium [Moles/Vol] 130 mmol/L Low 136 - 145 mmol/L [facility] Urea nitrogen [Mass/Vol] 19 mg/dL 6 - 20 mg/dL [facility] Urea nitrogen/Creatinine [Mass ratio] 32 mg/mg High 9 - [address] [facility] [address] HEAD WO CONTRASTon 2024 CT HEAD WO CONTRAST EXAMINATION: CT OF THE HEAD WITHOUT CONTRAST 12/20/2024 8:20 pm TECHNIQUE: CT of the head was performed without the administration of intravenous contrast. Automated exposure control, iterative reconstruction, and/or weight based adjustment of the mA/kV was utilized to reduce the radiation dose to as low as reasonably achievable. COMPARISON: None. HISTORY: ORDERING SYSTEM PROVIDED HISTORY: concern for tia TECHNOLOGIST PROVIDED HISTORY: concern for tia Decision Support Exception - unselect if not a suspected or confirmed emergency medical condition->Emergenc y Medical Condition ([place]) FINDINGS: BRAIN/VENTRICLES: There is no acute intracranial hemorrhage, mass effect or midline shift. No abnormal extra-axial fluid collection. The alexander-white differentiation is maintained without evidence of an acute infarct. There is no evidence of hydrocephalus. ORBITS: The visualized portion of the orbits demonstrate no acute abnormality. SINUSES: The visualized paranasal sinuses and mastoid air cells demonstrate no acute abnormality. SOFT TISSUES/SKULL: No acute abnormality of the visualized skull or soft tissues. IMPRESSION: No acute intracranial abnormality. Interpreted by: Tavo Almonte MD Signed by: Tavo Almonte MD 12/20/24 Final result Normal [facility] CT Head WO contraston 2024 No acute intracranial abnormality. [facility] CONSOLID[facility] EXAMINATION: CT OF THE HEAD WITHOUT CONTRAST 12/20/2024 8:20 pm TECHNIQUE: CT of the head was performed without the administration of intravenous contrast. Automated exposure control, iterative reconstruction, and/or weight based adjustment of the mA/kV was utilized to reduce the radiation dose to as low as reasonably achievable. COMPARISON: None. HISTORY: ORDERING SYSTEM PROVIDED HISTORY: concern for tia TECHNOLOGIST PROVIDED HISTORY: concern for tia Decision Support Exception - unselect if not a suspected or confirmed emergency medical condition->Emergenc y Medical Condition (MA) FINDINGS: BRAIN/VENTRICLES: There is no acute intracranial hemorrhage, mass effect or midline shift. No abnormal extra-axial fluid collection. The alexander-white differentiation is maintained without evidence of an acute infarct. There is no evidence of hydrocephalus. ORBITS: The visualized portion of the orbits demonstrate no acute abnormality. SINUSES: The visualized paranasal sinuses and mastoid air cells demonstrate no acute abnormality. SOFT TISSUES/SKULL: No acute abnormality of the visualized skull or soft tissues. [facility] Tavo Almonte MD - 12/20/2024 EXAMINATION: CT OF THE HEAD WITHOUT CONTRAST 12/20/2024 8:20 pm TECHNIQUE: CT of the head was performed without the administration of intravenous contrast. Automated exposure control, iterative reconstruction, and/or weight based adjustment of the mA/kV was utilized to reduce the radiation dose to as low as reasonably achievable. COMPARISON: None. HISTORY: ORDERING SYSTEM PROVIDED HISTORY: concern for tia TECHNOLOGIST PROVIDED HISTORY: concern for tia Decision Support Exception - unselect if not a suspected or confirmed emergency medical condition->Emergenc y Medical Condition (MA) FINDINGS: BRAIN/VENTRICLES: There is no acute intracranial hemorrhage, mass effect or midline shift. No abnormal extra-axial fluid collection. The alexander-white differentiation is maintained without evidence of an acute infarct. There is no evidence of hydrocephalus. ORBITS: The visualized portion of the orbits demonstrate no acute abnormality. SINUSES: The visualized paranasal sinuses and mastoid air cells demonstrate no acute abnormality. SOFT TISSUES/SKULL: No acute abnormality of the visualized skull or soft tissues. IMPRESSION: No acute intracranial abnormality. [facility] Radiology Study observation (narrative) [facility] CT Head WO contrastOrdered B y: Tavo Almonte on 12-20-2024 Milton [facility]amarripa [facility] Work Phone: CTA HEAD NECK W CONTRASTon 0 12-20-2024 CTA HEAD NECK W CONTRAST EXAMINATION: CTA OF THE HEAD AND NECK WITH CONTRAST 12/20/2024 6:34 pm: TECHNIQUE: CTA of the head and neck was performed with the administration of intravenous contrast. Multiplanar reformatted images are provided for review. MIP images are provided for review. Stenosis of the internal carotid arteries measured using NASCET criteria. Automated exposure control, iterative reconstruction, and/or weight based adjustment of the mA/kV was utilized to reduce the radiation dose to as low as reasonably achievable. COMPARISON: None. HISTORY: ORDERING SYSTEM PROVIDED HISTORY: Concern for TIA TECHNOLOGIST PROVIDED HISTORY: Concern for TIA Decision Support Exception - unselect if not a suspected or confirmed emergency medical condition->Emergenc y Medical Condition (MA) FINDINGS: CTA NECK: AORTIC ARCH/ARCH VESSELS: No dissection or arterial injury. No significant stenosis of the brachiocephalic or subclavian arteries. CAROTID ARTERIES: No dissection, arterial injury, or hemodynamically significant stenosis by NASCET criteria. VERTEBRAL ARTERIES: No dissection, arterial injury, or significant stenosis. SOFT TISSUES: The lung apices are clear. No cervical or superior mediastinal lymphadenopathy. The larynx and pharynx are unremarkable. No acute abnormality of the salivary and thyroid glands. There is diffuse enlargement of thyroid gland which is hypervascular. BONES: No acute osseous abnormality. CTA HEAD: ANTERIOR CIRCULATION: No significant stenosis of the intracranial internal carotid, anterior cerebral, or middle cerebral arteries. No aneurysm. POSTERIOR CIRCULATION: No significant stenosis of the basilar or posterior cerebral arteries. No aneurysm. OTHER: No dural venous sinus thrombosis on this non-dedicated study. BRAIN: No mass effect or midline shift. No extra-axial fluid collection. The alexander-white differentiation is maintained. IMPRESSION: 1. No evidence of arterial stenosis or occlusion in the head or neck. 2. Diffuse goiter. Interpreted by: Amaury Khan MD Signed by: Amaury Khan MD 12/20/24 Final result Normal [facility] CTA Head vessels and Neck ve ssels W contrast [facility] 12-20-2024 1. No evidence of arterial stenosis or occlusion in the head or neck. 2. Diffuse goiter. [facility] CONSOLIDATED EXAMINATION: CTA OF THE HEAD AND NECK WITH CONTRAST 12/20/2024 6:34 pm: TECHNIQUE: CTA of the head and neck was performed with the administration of intravenous contrast. Multiplanar reformatted images are provided for review. MIP images are provided for review. Stenosis of the internal carotid arteries measured using NASCET criteria. Automated exposure control, iterative reconstruction, and/or weight based adjustment of the mA/kV was utilized to reduce the radiation dose to as low as reasonably achievable. COMPARISON: None. HISTORY: ORDERING SYSTEM PROVIDED HISTORY: Concern for TIA TECHNOLOGIST PROVIDED HISTORY: Concern for TIA Decision Support Exception - unselect if not a suspected or confirmed emergency medical condition->Emergenc y Medical Condition (MA) FINDINGS: CTA NECK: AORTIC ARCH/ARCH VESSELS: No dissection or arterial injury. No significant stenosis of the brachiocephalic or subclavian arteries. CAROTID ARTERIES: No dissection, arterial injury, or hemodynamically significant stenosis by NASCET criteria. VERTEBRAL ARTERIES: No dissection, arterial injury, or significant stenosis. SOFT TISSUES: The lung apices are clear. No cervical or superior mediastinal lymphadenopathy. The larynx and pharynx are unremarkable. No acute abnormality of the salivary and thyroid glands. There is diffuse enlargement of thyroid gland which is hypervascular. BONES: No acute osseous abnormality. CTA HEAD: ANTERIOR CIRCULATION: No significant stenosis of the intracranial internal carotid, anterior cerebral, or middle cerebral arteries. No aneurysm. POSTERIOR CIRCULATION: No significant stenosis of the basilar or posterior cerebral arteries. No aneurysm. OTHER: No dural venous sinus thrombosis on this non-dedicated study. BRAIN: No mass effect or midline shift. No extra-axial fluid collection. The alexander-white differentiation is maintained. [facility] Amaury Khan MD - 12/20/2024 EXAMINATION: CTA OF THE HEAD AND NECK WITH CONTRAST 12/20/2024 6:34 pm: TECHNIQUE: CTA of the head and neck was performed with the administration of intravenous contrast. Multiplanar reformatted images are provided for review. MIP images are provided for review. Stenosis of the internal carotid arteries measured using NASCET criteria. Automated exposure control, iterative reconstruction, and/or weight based adjustment of the mA/kV was utilized to reduce the radiation dose to as low as reasonably achievable. COMPARISON: None. HISTORY: ORDERING SYSTEM PROVIDED HISTORY: Concern for TIA TECHNOLOGIST PROVIDED HISTORY: Concern for TIA Decision Support Exception - unselect if not a suspected or confirmed emergency medical condition->Emergenc y Medical Condition (MA) FINDINGS: CTA NECK: AORTIC ARCH/ARCH VESSELS: No dissection or arterial injury. No significant stenosis of the brachiocephalic or subclavian arteries. CAROTID ARTERIES: No dissection, arterial injury, or hemodynamically significant stenosis by NASCET criteria. VERTEBRAL ARTERIES: No dissection, arterial injury, or significant stenosis. SOFT TISSUES: The lung apices are clear. No cervical or superior mediastinal lymphadenopathy. The larynx and pharynx are unremarkable. No acute abnormality of the salivary and thyroid glands. There is diffuse enlargement of thyroid gland which is hypervascular. BONES: No acute osseous abnormality. CTA HEAD: ANTERIOR CIRCULATION: No significant stenosis of the intracranial internal carotid, anterior cerebral, or middle cerebral arteries. No aneurysm. POSTERIOR CIRCULATION: No significant stenosis of the basilar or posterior cerebral arteries. No aneurysm. OTHER: No dural venous sinus thrombosis on this non-dedicated study. BRAIN: No mass effect or midline shift. No extra-axial fluid collection. The alexander-white differentiation is maintained. IMPRESSION: 1. No evidence of arterial stenosis or occlusion in the head or neck. 2. Diffuse goiter. [facility] Radiology Study observation (narrative) [facility] CTA Head vessels and Neck ve ssels W contrast IVOrdered By: Amaury Khan on 12-20-[address] [facility] Work Phone: Comp Metabolic Profon 2024 Albumin [Mass/Vol] 4.2 g/dL Normal 3.5-5.2 [facility] Comment on above: Performed By: #### I NSU #### [facility] [address] [place], [place] [id number] Outplacement Consultant: Gee Royal MD [facility] [address] [place] [address] Outplacement Consultant: Loreta Zelaya MD #### CPEP #### [facility] [employer] [address] [place], [place] [id number] Outplacement Consultant: Gee Royal MD Albumin/Glob Ratio 1.4 Normal 1.0-2.5 [facility] Comment on above: Performed By: #### I NSU #### [facility] [address] [place] [address] Outplacement Consultant: Gee Royal MD [address] [place], [place] [phone] Outplacement Consultant: Loreta Zelaya MD #### CPEP #### [address] [address] Outplacement Consultant: Gee Royal MD Alkaline Phos 148 U/L High 35-104 [facility] Comment on above: Performed By: #### I NSU #### [address] [address] Outplacement Consultant: Gee Royal MD [address] [place] [address] Outplacement Consultant: Loreta Zelaya MD #### CPEP #### [address] [address] Outplacement Consultant: Gee Royal MD ALT [Catalytic activity/Vol] 27 U/L Normal 10-35 [facility] Comment on above: Performed By: #### I NSU #### [address] [address] Outplacement Consultant: Gee Royal MD [address] [place], [place] [id number] Outplacement Consultant: Loreta Zelaya MD #### CPEP #### [address] [address] Outplacement Consultant: Gee Royal MD Anion gap [Moles/Vol] 19 mmol/L High 9-16 [facility] Comment on above: Performed By: #### I NSU #### [address] [address] Outplacement Consultant: Gee Royal MD [facility] [address] [place] [address] [place], [place] [phone] Outplacement Consultant: Loreta Zelaya MD #### CPEP #### [address] [address] Outplacement Consultant: Gee Royal MD AST [Catalytic activity/Vol] 19 U/L Normal 10-35 [facility] Comment on above: Result Comment: Spec imen hemolysis has exceeded the interference as defined by Kat. Value may be falsely increased. Suggest recollection if clinically indicated. Performed By: #### I NSU #### [address] [address] Outplacement Consultant: Gee Royal MD [facility] [address] [place] [address] Dr[place], [place] [phone] Outplacement Consultant: Loreta Zelaya MD #### CPEP #### [address] [address] Outplacement Consultant: Gee Royal MD Bilirubin [Mass/Vol] 0.3 mg/dL Normal 0.00-1.20 [facility] Comment on above: Performed By: #### I NSU #### [address] [address] Outplacement Consultant: Gee Royal MD [facility] [address] [place] [address] Dr[place], [place] [phone] Outplacement Consultant: Loreta Zelaya MD #### CPEP #### [address] [address] Outplacement Consultant: Gee Royal MD BUN/CRE Ratio 32 High 9-20 [facility] Comment on above: Performed By: #### I NSU #### [address] [address] Outplacement Consultant: Gee Royal MD [facility] [address] [place] [address] [place], [place] 1945183 Outplacement Consultant: Loreta Zelaya MD #### CPEP #### [facility] [address] [place] [address] Outplacement Consultant: Gee Royal MD Calcium [Mass/Vol] 9.2 mg/dL Normal 8.6-10.4 [facility] Comment on above: Performed By: #### I NSU #### [facility] [address] [place] [address] Outplacement Consultant: Gee Royal MD [facility] [address] [place] [address] Dr[place], [place] [phone] Outplacement Consultant: Loreta Zelaya MD #### CPEP #### [address] [address] Outplacement Consultant: Gee Royal MD Chloride [Moles/Vol] 92 mmol/L Low 98-107 [facility] Comment on above: Performed By: #### I NSU #### [address] [address] Outplacement Consultant: Gee Royal MD [facility] [address] [place] [address] [place] [address] Outplacement Consultant: Loreta Zelaya MD #### CPEP #### [address] [address] Outplacement Consultant: Gee Royal MD CO2 [Moles/Vol] 19 mmol/L Low 20-31 [facility] Comment on above: Performed By: #### I NSU #### [facility] [address] [place] [address] Outplacement Consultant: Gee Royal MD [facility] [address] [place] [address] [place] [address] Outplacement Consultant: Loreta Zelaya MD #### CPEP #### [address] [address] Outplacement Consultant: Gee Royal MD Creatinine [Mass/Vol] 0.6 mg/dL Normal 0.50-0.90 [facility] Comment on above: Performed By: #### I NSU #### [address] [address] Outplacement Consultant: Gee Royal MD [facility] [address] [place] [address] [address] [place], [place] [phone] Outplacement Consultant: Loreta Zelaya MD #### CPEP #### [address] [address] Outplacement Consultant: Gee Royal MD GFR/1.73 sq M.predicted among non-blacks MDRD (S/P/Bld) [Vol rate/Area] mL/min/{1.73_m2} Normal >60 [facility] Comment on above: Result Comment: These results are not intended for use in patients <18 years of age. eGFR results are calculated without a race factor using the 2020 CKD-EPI equation. Careful clinical correlation is recommended, particularly when comparing to results calculated using previous equations. The CKD-EPI equation is less accurate in patients with extremes of muscle mass, extra-renal metabolism of creatine, excessive creatine ingestion, or following therapy that affects renal tubular secretion. Performed By: #### I NSU #### [address] [address] Outplacement Consultant: Gee Royal MD [facility] [address] [place] [address] [place] [address] Outplacement Consultant: Loreta Zelaya MD #### CPEP #### [address] [address] Outplacement Consultant: Gee Royal MD Glucose [Mass/Vol] 516 mg/dL Critically high 74-99 [facility] Comment on above: Performed By: #### I NSU #### [address] [address] Outplacement Consultant: Gee Royal MD [facility] [address] [place] [address] [address], [place] [phone] Outplacement Consultant: Loreta Zelaya MD #### CPEP #### [address] [address] Outplacement Consultant: Gee Royal MD Potassium [Moles/Vol] 4.8 mmol/L Normal 3.7-5.3 [facility] Comment on above: Result Comment: Spec imen hemolysis has exceeded the interference as defined by Kat. Value may be falsely increased. Suggest recollection if clinically indicated. Performed By: #### I NSU #### [address] [address] Outplacement Consultant: Gee Royal MD [facility] [address] [place] [address] [place] [address] Outplacement Consultant: Loreta Zelaya MD #### CPEP #### [address] [address] Outplacement Consultant: Gee Royal MD Protein [Mass/Vol] 7.2 g/dL Normal 6.6-8.7 [facility] Comment on above: Performed By: #### I NSU #### [address] [address] Outplacement Consultant: Gee Royal MD [facility] [address] [place] [address] [place], [place] [phone] Outplacement Consultant: Loreta Zelaya MD #### CPEP #### [address] [address] Outplacement Consultant: Gee Royal MD Sodium [Moles/Vol] 130 mmol/L Low 136-145 [facility] Comment on above: Performed By: #### I NSU #### [address] [address] Outplacement Consultant: Gee oRyal MD [facility] [address] [place] [address] [place] [address] Outplacement Consultant: Loreta Zelaya MD #### CPEP #### [facility] [address] [place] [address] Outplacement Consultant: Gee Royal MD Urea nitrogen [Mass/Vol] 19 mg/dL Normal 6-20 [facility] Comment on above: Performed By: #### I NSU #### [facility] [address] [place] [address] Outplacement Consultant: Gee Royal MD [facility] [address] [place] [address] Outplacement Consultant: Loreta Zelaya MD #### CPEP #### [facility] [address] [place] [address] Outplacement Consultant: Gee Royal MD Glucose, Whole Bloodon 12-20 Glucose [Mass/Vol] 458 mg/dL High 74 - 100 mg/dL [facility] Interpretation and review of laboratory results Abnormal [facility] Glucose [Mass/Vol] 458 mg/dL High 74-100 [facility] Glucose [Mass/Vol] 506 mg/dL Critically high 74 - 1 00 mg/dL [facility] Interpretation and review of laboratory results Abnormal [facility] Glucose [Mass/Vol] 506 mg/dL Critically high 74-100 [facility] Magnesiumon 12-20-2024 Magnesium [Mass/Vol] 2 mg/dL 1.6 - 2 .6 mg/dL [facility] Magnesium [Mass/Vol] 2.0 mg/dL Normal 1.6-2.6 [facility] Comment on above: Performed By: #### U OSMO #### [facility] [address] [place] [address] Outplacement Consultant: Gee Royal MD #### URNA #### [facility] [address] [place] [address] Outplacement Consultant: Loreta Zelaya MD No Panel Informationon 12-[address] [facility] Troponinon 06-18-2025 Troponin I.cardiac High sensitivity method [Mass/Vol] ng/L 0 - 14 ng/L [facility] Comment on above: High Sensitivity Tro ponin values cannot be compared with other Troponin methodologies. Troponin, High Sens <6 Normal 0-14 [facility] Comment on above: Result Comment: High Sensitivity Troponin values cannot be compared with other Troponin methodologies. Performed By: #### U OSMO #### [facility] [address] [place], [place] [phone] Outplacement Consultant: Gee Royal MD #### URNA #### [facility] [address] [place], [place] [phone] Outplacement Consultant: Loreta Zelaya MD Venous Blood Gaseson 025 Allan Test NOT APPLICABLE [facility] Comment on above: Performed By: #### V BG #### [address] [place], [place] [phone] Outplacement Consultant: Loreta Zelaya MD Body Temp. 37.0 [facility] Comment on above: Performed By: #### V BG #### [address] [place], [place] [phone] Outplacement Consultant: Loreta Zelaya MD FIO2 21 [facility] Comment on above: Performed By: #### V BG #### [address] [place] [phone] Outplacement Consultant: Loreta Zelaya MD HCO3 (Bld) [Moles/Vol] 17.9 mmol/L Low 24.0-30.0 [facility] Comment on above: Performed By: #### V BG #### [facility] [address] [place] [address] Outplacement Consultant: Loreta Zelaya MD Negative Base Excess 6.3 mmol/L High 0.0-2.0 [facility] Comment on above: Performed By: #### V BG #### [facility] [address] [place] [address] Outplacement Consultant: Loreta Zelaya MD O2 Device/Flow/% ROOM AIR Normal [facility] Comment on above: Performed By: #### V BG #### [facility] [address] [place] [address] Outplacement Consultant: Loreta Zelaya MD Oxygen saturation in Blood 83.0 % Normal 60.0-85.0 [facility] Comment on above: Performed By: #### V BG #### [facility] [address] [place] [address] [place] [address] Outplacement Consultant: Loreta Zelaya MD pCO2 32.4 mm Hg Low 39-55 [facility] Comment on above: Performed By: #### V BG #### [address] [place] [address] Outplacement Consultant: Loreta Zelaya MD Pco2 Adj'd for Temp. 32.4 mmHg Low 39.0-55.0 [facility] Comment on above: Performed By: #### V BG #### [address] [place] [address] Outplacement Consultant: Loreta Zelaya MD pH (Bld) 7.361 [pH] Normal 7.32-7.42 [facility] Comment on above: Performed By: #### V BG #### [facility] [address] [place] [address] [place] [address] Outplacement Consultant: Loreta Zelaya MD pH Adjst'd for Temp. 7.361 Normal 7.320-7.420 [facility] Comment on above: Performed By: #### V BG #### [address] [place] [address] Outplacement Consultant: Loreta Zelaya MD pO2 48.2 mm Hg Normal 30.0-50.0 [facility] Comment on above: Performed By: #### V BG #### [facility] [address] [place] [address] Outplacement Consultant: Loreta Zelaya MD pO2 Adj'd for Temp. 48.2 mmHg Normal 30.0-50.0 [facility] Comment on above: Performed By: #### V BG #### [facility] [address] [place] [address] Outplacement Consultant: Loreta Zelaya MD US PELVIS COMPLETE NON-OB TR ANSABD/TRANSVAG W DOPPLERon 12-18-2024 US PELVIS COMPLETE NON-OB TRANSABD/TRANSVAG W DOPPLER EXAMINATION: TRANSABDOMINAL AND TRANSVAGINAL ULTRASOUND OF THE PELVIS WITH COLOR DOPPLER FLOW EVALUATION 12/12/2024 TECHNIQUE: Transabdominal and transvaginal pelvic Duplex ultrasound using B-mode/alexander scaled imaging, Doppler spectral analysis and color flow Doppler was obtained. COMPARISON: None HISTORY: ORDERING SYSTEM PROVIDED HISTORY: History of uterine fibroid FINDINGS: Measurements: Uterus: 7.1 x 4.6 x 4.1 cm Endometrial stripe: 2.3 mm Right Ovary:Not measured. Left Ovary: 2.6 x 1.1 x 1.7 cm Ultrasound Findings: Uterus: Uterus has a slightly heterogeneous myometrial echotexture. Small heterogeneous hypoechoic area in the right posterior fundal region measuring up to 2.4 x 1.9 x 2.3 cm is most compatible with a fibroid. Endometrial stripe: Endometrial stripe is within normal limits. Right Ovary: Right ovary was not visualized. No definite adnexal masses are seen on the images obtained. Left Ovary: Left ovary is within normal limits. There is normal arterial and venous Doppler flow. Free Fluid: Trace free fluid, likely physiologic IMPRESSION: 2.4 cm uterine fibroid. Unremarkable left ovary. Right ovary was not visualized. Interpreted by: Trino Cantor MD Signed by: Trino Cantor MD 12/18/24 Final result Normal [facility] MRI LUMBAR SPINE WO CONTRAST on 12-13-2024 MRI LUMBAR SPINE WO CONTRAST EXAMINATION: MRI OF THE LUMBAR SPINE WITHOUT CONTRAST, 12/08/2024 2:33 pm TECHNIQUE: Multiplanar multisequence MRI of the lumbar spine was performed without the administration of intravenous contrast. COMPARISON: None. HISTORY: ORDERING SYSTEM PROVIDED HISTORY: Lumbar radiculopathy FINDINGS: BONES/ALIGNMENT: There is normal alignment of the spine. The vertebral body heights are maintained. The bone marrow signal appears unremarkable. Disc desiccation is seen from L4 through S1. SPINAL CORD: The conus terminates normally. SOFT TISSUES: No paraspinal mass identified. L1-L2: There is no significant disc herniation, spinal canal stenosis or neural foraminal narrowing. L2-L3: Bilateral facet hypertrophy. L3-L4: There is no significant disc herniation, spinal canal stenosis or neural foraminal narrowing. L4-L5: Posterior annular fissure. Early facet hypertrophy. Minimal disc bulge. Mild spinal canal stenosis. Mild bilateral foraminal stenosis. L5-S1: Mild loss of disc space height. Central disc extrusion which extends posterior to the S1 vertebral body. Mild spinal canal stenosis. Posterior annular fissure. Moderate left and mild right foraminal stenosis. IMPRESSION: Degenerative changes of the lower lumbar spine as detailed above worst at L5-S1. Interpreted by: Chas Vásquez MD Signed by: Chas Vásquez MD 12/13/24 Final result Normal [facility] XR KNEE LEFT (1-2 VIEWS)on 0 12-10-2024 XR KNEE LEFT (1-2 VIEWS) EXAM: 2 VIEWS XRAY OF THE LEFT KNEE 12/08/2024 03:01:50 PM COMPARISON: None available. CLINICAL HISTORY: Acute pain of left knee. FINDINGS: BONES AND JOINTS: No acute fracture. No focal osseous lesion. No joint dislocation. No significant joint effusion. Mild loss of joint space in the medial and lateral compartments compatible with degenerative change. SOFT TISSUES: The soft tissues are unremarkable. IMPRESSION: 1. No acute findings. 2. Mild loss of joint space in the medial and lateral compartments compatible with degenerative change. Interpreted by: Emiliano Tran MD Signed by: Emiliano Tran MD 12/10/24 Final result Normal [facility] XR Knee - left 1 or 2 Viewso n 12-10-2024 1. No acute findings. 2. Mild loss of joint space in the medial and lateral compartments compatible with degenerative change. [facility] RIS CONSOLIDATED EXAM: 2 VIEWS XRAY OF THE LEFT KNEE 12/08/2024 03:01:50 PM COMPARISON: None available. CLINICAL HISTORY: Acute pain of left knee. FINDINGS: BONES AND JOINTS: No acute fracture. No focal osseous lesion. No joint dislocation. No significant joint effusion. Mild loss of joint space in the medial and lateral compartments compatible with degenerative change. SOFT TISSUES: The soft tissues are unremarkable. [facility] Emiliano Ellis MD - 12/10/2024 EXAM: 2 VIEWS XRAY OF THE LEFT KNEE 12/08/2024 03:01:50 PM COMPARISON: None available. CLINICAL HISTORY: Acute pain of left knee. FINDINGS: BONES AND JOINTS: No acute fracture. No focal osseous lesion. No joint dislocation. No significant joint effusion. Mild loss of joint space in the medial and lateral compartments compatible with degenerative change. SOFT TISSUES: The soft tissues are unremarkable. IMPRESSION: 1. No acute findings. 2. Mild loss of joint space in the medial and lateral compartments compatible with degenerative change. [facility] XR Knee - left 1 or 2 ViewsO rdered By: Emiliano Tran on 12-10-[address] [facility] Work Phone: HIV Ag/Abon 12-09-2024 HIV Ag/Ab Non-Reactive Normal NR [facility] Comment on above: Result Comment: No l aboratory evidence of HIV infection. If acute HIV infection is suspected, consider testing for HIV-1 RNA. Performed By: #### I NSU #### [address] [address] Outplacement Consultant: Gee Royal MD [address] [place] [address] Outplacement Consultant: Loreta Zelaya MD #### CPEP #### [facility] [employer] [facility] [place] [address] Outplacement Consultant: Gee Royal MD Hepatitis Acute [facility] 12-09 Hep A Ab,IgM Non-Reactive Normal NR [facility] Comment on above: Performed By: #### I NSU #### [address] [address] Outplacement Consultant: Gee Royal MD [address] [place] [address] Outplacement Consultant: Loreta Zelaya MD #### CPEP #### [address] [address] Outplacement Consultant: Gee Royal MD Hep B Core Ab,IgM Non-Reactive Normal [facility] Comment on above: Performed By: #### I NSU #### [address] [address] Outplacement Consultant: Gee Royal MD [address] [place] [address] Outplacement Consultant: Loreta Zelaya MD #### CPEP #### [address] [address] Outplacement Consultant: Gee Royal MD Hep B Surf Ag Non-Reactive Normal [facility] Comment on above: Performed By: #### I NSU #### [address] [address] Outplacement Consultant: Gee Royal MD [address] [place] [address] Outplacement Consultant: Loreta Zelaya MD #### CPEP #### [address] [address] Outplacement Consultant: Gee Royal MD Hep C Ab Non-Reactive Normal [facility] Comment on above: Result Comment: The hepatitis C procedure used in our laboratory is a Chemiluminescent test specific for three recombinant HCV antigens. A negative anti-HCV result indicates that the antibodies to hepatitis C virus are not present at this time. Individuals with reactive anti-HCV should be considered infected and infectious until proven otherwise. Confirmation of all equivocal or reactive results is recommended by ordering HCV RNA by PCR. Performed By: #### I NSU #### [address] [address] Outplacement Consultant: Gee Royal MD [address] [place] [address] Outplacement Consultant: Loreta Zelaya MD #### CPEP #### [address] [address] Outplacement Consultant: Gee Royal MD Prolactinon 12-09-2024 Prolactin 4.51 ng/mL Low 4.79-23.3 [facility] Comment on above: Result Comment: The presence of macroprolactin may cause interference in female patients with various endocrinological diseases or during . Performed By: #### I NSU #### [address] [address] Outplacement Consultant: Gee Royal MD [address] [place] [address] Outplacement Consultant: Loreta Zelaya MD #### CPEP #### [address] [address] Outplacement Consultant: Gee Royal MD T.pallidum Ab Screenon 12-09 T.pallidum Ab Screen Non-Reactive Normal NR [facility] Comment on above: Result Comment: T. pallidum antibodies are not detected. There is no serological evidence of infection with T. pallidum (early primary syphilis cannot be excluded). Retest in 2-4 weeks if syphilis is clinically suspect. Performed By: #### I NSU #### [address] [address] Outplacement Consultant: Gee Royal MD [facility] [address] [place] [address] [place] [address] Outplacement Consultant: Loreta Zelaya MD #### CPEP #### [address] [address] Outplacement Consultant: Gee Royal MD US THYROIDon 12-08-2024 US THYROID EXAMINATION: THYROID ULTRASOUND 12/08/2024 COMPARISON: None. TECHNIQUE: Real-time and color flow sonographic images were obtained using a linear transducer. [id number]. HISTORY: F 49 y/o old. ORDERING SYSTEM PROVIDED HISTORY: Thyroid nodule FINDINGS: Right thyroid lobe: 6.9 x 3.3 x 3.1cm Left thyroid lobe: 6.6 x 3.3 x 3.1cm Isthmus: 1.5cm Echotexture: Heterogeneous Vascularity: Normal Thyroid Nodules: Subcentimeter TI-RADS 3 and 4 nodules both thyroid lobes for which no follow-up recommended per current classification. NODULE: 1 Size: 16 x 12 x 11 mm Location: Inferior left thyroid 1. Composition: Solid (2) 2. Echogenicity: Isoechoic (1) 3. Shape: [id number] (0) 4. Margins: Ill-defined (0) 5. Echogenic foci: None (0) ACR TI-RADS total points: 3 ACR TI-RADS risk category: TR3 Soft tissues: No visualized lymphadenopathy IMPRESSION: 1. 16 mm TI-RADS 3 nodule left thyroid lobe for which follow-up ultrasound in 1 year recommended. 2. Subcentimeter TI-RADS 3 and 4 nodules both thyroid lobes. No follow-up recommended per current classification. ACR TI-RADS recommendations: TR5 (>= 7 points): FNA if >= 1 cm; follow-up if 0.5-0.9 cm in 1, 2, 3, 4, and 5 years TR4 (4-6 points): FNA if >= 1.5 cm; follow-up if 1.0-1.4 cm in 1, 2, 3, and 5 years TR3 (3 points): FNA if >= 2.5 cm; follow-up if 1.5-2.4 cm in 1, 3, and 5 years TR2 (2 points): No FNA or follow-up TR1 (0 points): No FNA or follow-up ACR TI-RADS recommends that no more than two nodules with the highest ACR TI-RADS point total should be biopsied and no more than four nodules should be followed. Interpreted by: Brandt Kirk DO Signed by: Brandt Kirk DO 12/08/24 Final result Normal [facility] US Thyroid glandon 5 1. 16 mm TI-RADS 3 nodule left thyroid lobe for which follow-up ultrasound in 1 year recommended. 2. Subcentimeter TI-RADS 3 and 4 nodules both thyroid lobes. No follow-up recommended per current classification. ACR TI-RADS recommendations: TR5 (>= 7 points): FNA if >= 1 cm; follow-up if 0.5-0.9 cm in 1, 2, 3, 4, and 5 years TR4 (4-6 points): FNA if >= 1.5 cm; follow-up if 1.0-1.4 cm in 1, 2, 3, and 5 years TR3 (3 points): FNA if >= 2.5 cm; follow-up if 1.5-2.4 cm in 1, 3, and 5 years TR2 (2 points): No FNA or follow-up TR1 (0 points): No FNA or follow-up ACR TI-RADS recommends that no more than two nodules with the highest ACR TI-RADS point total should be biopsied and no more than four nodules should be followed. [facility] EXAMINATION: THYROID ULTRASOUND 12/08/2024 COMPARISON: None. TECHNIQUE: Real-time and color flow sonographic images were obtained using a linear transducer. [id number]. HISTORY: F 49 y/o old. ORDERING SYSTEM PROVIDED HISTORY: Thyroid nodule FINDINGS: Right thyroid lobe: 6.9 x 3.3 x 3.1cm Left thyroid lobe: 6.6 x 3.3 x 3.1cm Isthmus: 1.5cm Echotexture: Heterogeneous Vascularity: Normal Thyroid Nodules: Subcentimeter TI-RADS 3 and 4 nodules both thyroid lobes for which no follow-up recommended per current classification. NODULE: 1 Size: 16 x 12 x 11 mm Location: Inferior left thyroid 1. Composition: Solid (2) 2. Echogenicity: Isoechoic (1) 3. Shape: [id number] (0) 4. Margins: Ill-defined (0) 5. Echogenic foci: None (0) ACR TI-RADS total points: 3 ACR TI-RADS risk category: TR3 Soft tissues: No visualized lymphadenopathy [facility] Brandt Kirk, DO - 12/08/2024 EXAMINATION: THYROID ULTRASOUND 12/08/2024 COMPARISON: None. TECHNIQUE: Real-time and color flow sonographic images were obtained using a linear transducer. [id number]. HISTORY: F 49 y/o old. ORDERING SYSTEM PROVIDED HISTORY: Thyroid nodule FINDINGS: Right thyroid lobe: 6.9 x 3.3 x 3.1cm Left thyroid lobe: 6.6 x 3.3 x 3.1cm Isthmus: 1.5cm Echotexture: Heterogeneous Vascularity: Normal Thyroid Nodules: Subcentimeter TI-RADS 3 and 4 nodules both thyroid lobes for which no follow-up recommended per current classification. NODULE: 1 Size: 16 x 12 x 11 mm Location: Inferior left thyroid 1. Composition: Solid (2) 2. Echogenicity: Isoechoic (1) 3. Shape: Pnikb-uoop-zjam (0) 4. Margins: Ill-defined (0) 5. Echogenic foci: None (0) ACR TI-RADS total points: 3 ACR TI-RADS risk category: TR3 Soft tissues: No visualized lymphadenopathy IMPRESSION: 1. 16 mm TI-RADS 3 nodule left thyroid lobe for which follow-up ultrasound in 1 year recommended. 2. Subcentimeter TI-RADS 3 and 4 nodules both thyroid lobes. No follow-up recommended per current classification. ACR TI-RADS recommendations: TR5 (>= 7 points): FNA if >= 1 cm; follow-up if 0.5-0.9 cm in 1, 2, 3, 4, and 5 years TR4 (4-6 points): FNA if >= 1.5 cm; follow-up if 1.0-1.4 cm in 1, 2, 3, and 5 years TR3 (3 points): FNA if >= 2.5 cm; follow-up if 1.5-2.4 cm in 1, 3, and 5 years TR2 (2 points): No FNA or follow-up TR1 (0 points): No FNA or follow-up ACR TI-RADS recommends that no more than two nodules with the highest ACR TI-RADS point total should be biopsied and no more than four nodules should be followed. [facility] (narrative) [facility] US Thyroid glandOrdered By: Brandt Kirk on 12-08-[address] [facility] Work Phone: XR Knee - left 1 or 2 Viewso n 12-08-2024 Radiology Study observation (narrative) [facility] [employer] [facility] CHLAMYDIA/GC BY PCR IMELDA TITUS ABon 12-06-2024 CHLAMYDIA/GC BY PCR IMELDA SWAB CHLAMYDIA DNA(PCR) Negative Chlamydia trachomatis not detected by nucleic acid amplification. This does not exclude the possibility of infection because results are dependent on adequate specimen collection. GONORRHOEAE DNA(PCR) Negative Neisseria gonorrhoeae not detected by nucleic acid amplification. This does not exclude the possibility of infection because results are dependent on adequate specimen collection. Normal [facility] Comment on above: Performed By: #### C GS #### [facility] ([facility]) [address] [place] [address] VIR VAGINITIS PANEL PCRon 2024 VAGINITIS PANEL PCR BACT. VAGINOSIS DNA Not Detected Qualitative results are reported based on detection and quantitation of targeted organism markers which include: Lactobacillus spp. (L. crispatus and L. jensenii), Gardnerella vaginalis, Atopobium vaginae, Bacterial Vaginosis Associated Bacteria-2 (BVAB-2) and Megasphaera-1. KIESHA SPECIES DNA Not Detected Kiesha species not detected include: C. albicans, C. tropicalis, C. parapsilosis or C. dubliniensis. KIESHA KRUSEI DNA Not Detected No Kiesha krusei detected. KIESHA GLABRATA DNA Detected Kiesha glabrata detected. Literature studies show between 8-20% Fluconazole resistance for Kiesha glabrata. TRICHOMONAS VAG DNA Not Detected No Trichomonas vaginalis detected. BD MAX Vaginal Panel has not been evaluated for patients under 18 years old. Results for these patients should be reviewed and assessed in accordance with clinical presentation to determine patient diagnosis. Normal [facility] Comment on above: Performed By: #### V PPCR #### [facility] ([facility]) [address] [place] [address] VIR Albumin/Creat Ratio, Urineon 11-14-2024 Albumin,conc.Necedah U <12 Normal 0-20 [facility] Comment on above: Performed By: #### C DP #### [facility] [address] [place] [address] Outplacement Consultant: Loreta Zelaya MD Albumin/Creat Ratio Can not be calculated Normal 0.0-25.0 [facility] Comment on above: Performed By: #### C DP #### [facility] [address] [place] [address] Outplacement Consultant: Loreta Zelaya MD Creatinine Conc. 15.9 mg/dL Low 28.0-217.0 [facility] Comment on above: Result Comment: Refe rence range defined for 1st morning urine Performed By: #### C DP #### [facility] [address] [place] [address] Outplacement Consultant: Loreta Zelaya MD Albumin/Creatinine Ratio, Ur ineon 11-14-2024 Albumin DL <= 20 mg/L (U) [Mass/Vol] mg/L 0 - 20 mg/L [facility] Albumin/Creatinine DL <= 20 mg/L (U) [Ratio] Can not be calculated [facility] Creatinine (U) [Mass/Vol] 15.9 mg/dL Low 28.0 - 217.0 mg/dL [facility] Comment on above: Reference range defi radha for 1st morning urine Interpretation and review of laboratory results Abnormal [facility] CBC with Auto Differentialon 11-14-2024 Basophils (Bld) [#/Vol] 0.03 10*3/uL [facility] Basophils/100 WBC (Bld) 1 % 0 - 2 % B on [facility] Eosinophils (Bld) [#/Vol] 0.08 10*3/uL [facility] Eosinophils/100 WBC (Bld) 2 % 1 - 4 % [facility] Erythrocyte distribution width (RBC) [Ratio] 11.9 % 11.8 - 14.4 % [facility] Hematocrit (Bld) [Volume fraction] 41.4 % 36.3 - 47.1 % [facility] Hemoglobin (Bld) [Mass/Vol] 13.7 g/dL 11.9 - 15.1 g/dL [facility] Immature granulocytes (Bld) [#/Vol] [facility] Immature granulocytes/100 WBC (Bld) 0 % [address] [facility] Lymphocytes/100 WBC (Bld) 29 % 24 - 43 % [facility] Lymphocytes/100 WBC (Bld) 1.41 % [facility] MCH (RBC) [Entitic mass] 32.7 pg 25.2 - 33.[address] [facility] MCHC (RBC) [Mass/Vol] 33.1 g/dL 28.4 - 34.8 g/dL [facility] MCV (RBC) [Entitic vol] 98.8 fL 82.6 - 102.[address] [facility] Monocytes/100 WBC (Bld) 6 % 3 - 12 % B on [facility] Monocytes/100 WBC (Bld) 0.31 % B on [facility] Neutrophils/100 WBC (Bld) 62 % 36 - 65 % [facility] Nucleated RBC/100 WBC (Bld) [Ratio] 0 % 0.0 per [address] [facility] Platelet mean volume (Bld) [Entitic vol] 9.8 fL 8.1 - 13.[address] [facility] Platelets (Bld) [#/Vol] 335 10*3/uL [facility] RBC (Bld) [#/Vol] 4.19 10*6/uL 3.95 - 5.1 1 m/uL [facility] Segmented neutrophils/100 WBC (Bld) 3 % [facility] WBC other (Bld) [#/Vol] 4.9 B on [facility] CBC with Diffon 11-14-2024 Abs. Basophil 0.03 k/uL Normal 0.00-0.20 [facility] Comment on above: Performed By: #### C DP #### [facility] [address] [place] [address] Outplacement Consultant: Loreta Zelaya MD Abs.Imm.Granulocyte <0.03 Normal 0.00-0.30 [facility] Comment on above: Performed By: #### C DP #### [facility] [address] [place] [address] Outplacement Consultant: Loreta Zelaya MD Abs.Neutrophil (Seg) 3.00 k/uL Normal 1.50-8.10 [facility] Comment on above: Performed By: #### C DP #### [address] [place], [facility]83 Outplacement Consultant: Loreta Zelaya MD Basophils/100 WBC (Bld) 1 % Normal 0-2 [facility] Comment on above: Performed By: #### C DP #### [address] [place], [place] [address] Outplacement Consultant: Loreta Zelaya MD Eosinophils (Bld) [#/Vol] 0.08 10*3/uL Normal 0.00-0.44 [facility] Comment on above: Performed By: #### C DP #### [address] [place] [address] Outplacement Consultant: Loreta Zelaya MD Eosinophils/100 WBC (Bld) 2 % Normal 1-4 [facility] Comment on above: Performed By: #### C DP #### [address] [place], [facility]83 Outplacement Consultant: Loreta Zelaya MD Erythrocyte distribution width (RBC) [Ratio] 11.9 % Normal 11.8-14.4 [facility] Comment on above: Performed By: #### C DP #### [address] [place], [place] [address] Outplacement Consultant: Loreta Zelaya MD Hematocrit (Bld) [Volume fraction] 41.4 % Normal 36.3-47.1 [facility] Comment on above: Performed By: #### C DP #### [address] [place], [facility]83 Outplacement Consultant: Loreta Zelaya MD Hemoglobin (Bld) [Mass/Vol] 13.7 g/dL Normal 11.9-15.1 [facility] Comment on above: Performed By: #### C DP #### [facility] [address] [place], [place] [id number] Outplacement Consultant: Loreta Zelaya MD Immature granulocytes/100 WBC (Bld) 0 % Normal 0 [facility] Comment on above: Performed By: #### C DP #### [facility] [address] [place], [place] [id number] Outplacement Consultant: Loreta Zelaya MD Lymphocytes (Bld) [#/Vol] 1.41 10*3/uL Normal 1.10-3.70 [facility] Comment on above: Performed By: #### C DP #### [address] [place] [id number] Outplacement Consultant: Loreta Zelaya MD Lymphocytes/100 WBC (Bld) 29 % Normal 24-43 [facility] Comment on above: Performed By: #### C DP #### [address] [place], [facility]83 Outplacement Consultant: Loreta Zelaya MD MCH (RBC) [Entitic mass] 32.7 pg Normal 25.2-33.5 [facility] Comment on above: Performed By: #### C DP #### [address] [place], [place] [id number] Outplacement Consultant: Loreta Zelaya MD MCHC (RBC) [Mass/Vol] 33.1 g/dL Normal 28.4-34.8 [facility] Comment on above: Performed By: #### C DP #### [address] [place], [facility]83 Outplacement Consultant: Loreta Zelaya MD MCV (RBC) [Entitic vol] 98.8 fL Normal 82.6-102.9 [facility] Comment on above: Performed By: #### C DP #### [address] [place], [facility]83 Outplacement Consultant: Loreta Zelaya MD Monocytes (Bld) [#/Vol] 0.31 10*3/uL Normal 0.10-1.20 [facility] Comment on above: Performed By: #### C DP #### [facility] [address] [place], [place] [id number] Outplacement Consultant: Loreta Zelaya MD Monocytes/100 WBC (Bld) 6 % Normal 3-12 [facility] Comment on above: Performed By: #### C DP #### [facility] [address] [place] [address] Outplacement Consultant: Loreta Zelaya MD Neutrophil (Seg) 62 % Normal 36-65 [facility] Comment on above: Performed By: #### C DP #### [address] [place], [place] [id number] Outplacement Consultant: Loreta Zelaya MD NRBC Automated 0.0 per 100 WBC Normal 0.0 [facility] Comment on above: Performed By: #### C DP #### [facility] [address] [place] [address] Outplacement Consultant: Loreta Zelaya MD Platelet mean volume (Bld) [Entitic vol] 9.8 fL Normal 8.1-13.5 [facility] Comment on above: Performed By: #### C DP #### [facility] [address] [place] [address] [place] [address] Outplacement Consultant: Loreta Zelaya MD Platelets (Bld) [#/Vol] 335 10*3/uL Normal 138-453 [facility] Comment on above: Performed By: #### C DP #### [facility] [address] [place], [place] [id number] Outplacement Consultant: Loreta Zelaya MD RBC (Bld) [#/Vol] 4.19 10*6/uL Normal 3.95-5.11 [facility] Comment on above: Performed By: #### C DP #### [facility] [address] [place], [place] [id number] Outplacement Consultant: Loreta Zelaya MD WBC (Bld) [#/Vol] 4.9 10*3/uL Normal 3.5-11.3 [facility] Comment on above: Performed By: #### C DP #### [facility] [address] [place], [place] [id number] Outplacement Consultant: Loreta Zelaya MD Comp Metabolic Profon 2024 Albumin [Mass/Vol] 4.4 g/dL Normal 3.5-5.2 [facility] Comment on above: Performed By: #### V BG #### [facility] [address] [place], [place] [id number] Outplacement Consultant: Loreta Zelaya MD Albumin/Glob Ratio 1.6 Normal 1.0-2.5 [facility] Comment on above: Performed By: #### V BG #### [facility] [address] [place], [place] [id number] Outplacement Consultant: Loreta Zelaya MD Alkaline Phos 224 U/L High 35-104 [facility] Comment on above: Performed By: #### V BG #### [address] [place] [address] Outplacement Consultant: Loreta Zelaya MD ALT [Catalytic activity/Vol] 24 U/L Normal 10-35 [facility] Comment on above: Performed By: #### V BG #### [facility] [address] [place], [place] [id number] Outplacement Consultant: Loreta Zelaya MD Anion gap [Moles/Vol] 13 mmol/L Normal 9-16 [facility] Comment on above: Performed By: #### V BG #### [facility] [address] [place], [place] [id number] Outplacement Consultant: Loreta Zelaya MD AST [Catalytic activity/Vol] 18 U/L Normal 10-35 [facility] Comment on above: Performed By: #### V BG #### [facility] [address] [place], [place] [id number] Outplacement Consultant: Loreta Zelaya MD Bilirubin [Mass/Vol] mg/dL Normal 0.00-1.20 [facility] Comment on above: Performed By: #### V BG #### [facility] [address] [place], [place] [phone] Outplacement Consultant: Loreta Zelaya MD BUN/CRE Ratio 35 High 9-20 [facility] Comment on above: Performed By: #### V BG #### [facility] [address] [place], [place] [id number] Outplacement Consultant: Loreta Zelaya MD Calcium [Mass/Vol] 9.4 mg/dL Normal 8.6-10.4 [facility] Comment on above: Performed By: #### V BG #### [facility] [address] [place], [place] [id number] Outplacement Consultant: Loreta Zelaya MD Chloride [Moles/Vol] 95 mmol/L Low 98-107 [facility] Comment on above: Performed By: #### V BG #### [facility] [address] [place] [address] [place], [place] [id number] Outplacement Consultant: Loreta Zelaya MD CO2 [Moles/Vol] 25 mmol/L Normal 20-31 [facility] Comment on above: Performed By: #### V BG #### [facility] [address] [place], [place] 138[address]183 Outplacement Consultant: Loreta Zelaya MD Creatinine [Mass/Vol] 0.6 mg/dL Normal 0.50-0.90 [facility] Comment on above: Performed By: #### V BG #### [facility] [address] [place], [place] [id number] Outplacement Consultant: Loreta Zelaya MD GFR/1.73 sq M.predicted among non-blacks MDRD (S/P/Bld) [Vol rate/Area] mL/min/{1.73_m2} Normal >60 [facility] Comment on above: Result Comment: These results are not intended for use in patients <18 years of age. eGFR results are calculated without a race factor using the 2020 CKD-EPI equation. Careful clinical correlation is recommended, particularly when comparing to results calculated using previous equations. The CKD-EPI equation is less accurate in patients with extremes of muscle mass, extra-renal metabolism of creatine, excessive creatine ingestion, or following therapy that affects renal tubular secretion. Performed By: #### V BG #### [address] [place] [address] Outplacement Consultant: Loreta Zelaya MD Glucose [Mass/Vol] 605 mg/dL Critically high 74-99 [facility] Comment on above: Performed By: #### V BG #### [address] [place] [address] Outplacement Consultant: Loreta Zelaya MD Potassium [Moles/Vol] 4.7 mmol/L Normal 3.7-5.3 [facility] Comment on above: Result Comment: Spec imen hemolysis has exceeded the interference as defined by Kat. Value may be falsely increased. Suggest recollection if clinically indicated. Performed By: #### V BG #### [address] [place] [address] Outplacement Consultant: Loreta Zelaya MD Protein [Mass/Vol] 7.1 g/dL Normal 6.6-8.7 [facility] Comment on above: Performed By: #### V BG #### [address] [place] [address] Outplacement Consultant: Loreta Zelaya MD Sodium [Moles/Vol] 133 mmol/L Low 136-145 [facility] Comment on above: Performed By: #### V BG #### [address] [place] [address] Outplacement Consultant: Loreta Zelaya MD Urea nitrogen [Mass/Vol] 21 mg/dL High 6-20 [facility] Comment on above: Performed By: #### V BG #### [facility] [address] [place] [address] Outplacement Consultant: Loreta Zelaya MD Comprehensive Metabolic Pane [facility] 11-14-2024 Albumin [Mass/Vol] 4.4 g/dL 3.5 - 5.2 g/dL [facility] Albumin/Globulin [Mass ratio] 1.6 {ratio} 1.0 - 2.[address] [facility] ALP [Catalytic activity/Vol] 224 U/L High 35 - 104 U/L [facility] ALT [Catalytic activity/Vol] 24 U/L 10 - 35 U/L [facility] Anion gap [Moles/Vol] 13 mmol/L 9 - 16 mmol/L [facility] AST [Catalytic activity/Vol] 18 U/L 10 - 35 U/L [facility] Bilirubin [Mass/Vol] mg/dL 0.00 - 1.20 mg/dL [facility] Calcium [Mass/Vol] 9.4 mg/dL 8.6 - 10. 4 mg/dL [facility] Chloride [Moles/Vol] 95 mmol/L Low 98 - 10 7 mmol/L [facility] CO2 [Moles/Vol] 25 mmol/L 20 - 31 mmol/L [facility] Creatinine [Mass/Vol] 0.6 mg/dL 0.50 - 0.90 mg/dL [facility] Est, Glom Filt Rate - PINF [facility] Comment on above: These results are not intended for use in patients <18 years of age. eGFR results are calculated without a race factor using the 2020 CKD-EPI equation. Careful clinical correlation is recommended, particularly when comparing to results calculated using previous equations. The CKD-EPI equation is less accurate in patients with extremes of muscle mass, extra-renal metabolism of creatine, excessive creatine ingestion, or following therapy that affects renal tubular secretion. Glucose [Mass/Vol] 605 mg/dL Critically high 74 - 9 9 mg/dL [facility] Interpretation and review of laboratory results Abnormal [facility] Potassium [Moles/Vol] 4.7 mmol/L 3.7 - 5.3 mmol/L [facility] Comment on above: Specimen hemolysis h as exceeded the interference as defined by Kat. Value may be falsely increased. Suggest recollection if clinically indicated. Protein [Mass/Vol] 7.1 g/dL 6.6 - 8.7 g/dL [facility] Sodium [Moles/Vol] 133 mmol/L Low 136 - 145 mmol/L [facility] Urea nitrogen [Mass/Vol] 21 mg/dL High 6 - 20 mg/dL [facility] Urea nitrogen/Creatinine [Mass ratio] 35 mg/mg High 9 - 20 [facility] C-Peptideon 10-18-2024 C-Peptide 0.2 ng/mL Low 1.1-4.4 [facility] Comment on above: Performed By: #### I NSU #### [facility] [address] [place], [place] [id number] Outplacement Consultant: Gee Royal MD [facility] [address] [place] [address] Outplacement Consultant: Loreta Zelaya MD #### CPEP #### [address] [place], [place] [id number] Outplacement Consultant: Gee Royal MD CBC auto differentialon 10-03 Basophils (Bld) [#/Vol] 0.04 10*3/uL [facility] Basophils/100 WBC (Bld) 1 % 0 - 2 % B on [facility] Eosinophils (Bld) [#/Vol] 0.1 10*3/uL [facility] Eosinophils/100 WBC (Bld) 2 % 1 - 4 % [facility] Erythrocyte distribution width (RBC) [Ratio] 13.6 % 11.8 - 14.4 % [facility] Hematocrit (Bld) [Volume fraction] 36.9 % 36.3 - 47.1 % [facility] Hemoglobin (Bld) [Mass/Vol] 11.8 g/dL Low 11.9 - 15.1 g/dL [facility] Immature granulocytes (Bld) [#/Vol] [facility] Immature granulocytes/100 WBC (Bld) 1 % High [address] [facility] Interpretation and review of laboratory results Abnormal [facility] Lymphocytes/100 WBC (Bld) 39 % 24 - 43 % [facility] Lymphocytes/100 WBC (Bld) 1.62 % [facility] MCH (RBC) [Entitic mass] 33.1 pg 25.2 - 33.[address] [facility] MCHC (RBC) [Mass/Vol] 32 g/dL 28.4 - 34.8 g/dL [facility] MCV (RBC) [Entitic vol] 103.4 fL High 82.6 - 102.[address] [facility] Monocytes/100 WBC (Bld) 11 % 3 - 12 % B on [facility] Monocytes/100 WBC (Bld) 0.47 % B on [facility] Neutrophils/100 WBC (Bld) 46 % 36 - 65 % [facility] [facility] Nucleated RBC/100 WBC (Bld) [Ratio] 0 % 0.0 per [address] [facility] Platelet mean volume (Bld) [Entitic vol] 10 fL 8.1 - 13.[address] [facility] Platelets (Bld) [#/Vol] 256 10*3/uL [facility] RBC (Bld) [#/Vol] 3.57 10*6/uL Low 3.95 - 5.1 1 m/uL [facility] Segmented neutrophils/100 WBC (Bld) 1.91 % [facility] WBC other (Bld) [#/Vol] 4.2 B on [facility] CBC with Diffon 10-18-2024 Abs. Basophil 0.04 k/uL Normal 0.00-0.20 [facility] Comment on above: Performed By: #### U AMI #### [facility] [address] [place] [address] Outplacement Consultant: Loreta Zelaya MD Abs.Imm.Granulocyte <0.03 Normal 0.00-0.30 [facility] Comment on above: Performed By: #### U AMIC #### [facility] [address] [place] [address] [address] [place] [id number] Outplacement Consultant: Loreta Zelaya MD Abs.Neutrophil (Seg) 1.91 k/uL Normal 1.50-8.10 [facility] Comment on above: Performed By: #### U AMIC #### [address] [place] [id number] Outplacement Consultant: Loreta Zelaya MD Basophils/100 WBC (Bld) 1 % Normal 0-2 [facility] Comment on above: Performed By: #### U AMIC #### [address] [place] [id number] Outplacement Consultant: Loreta Zelaya MD Eosinophils (Bld) [#/Vol] 0.10 10*3/uL Normal 0.00-0.44 [facility] Comment on above: Performed By: #### U AMIC #### [address] [place], [facility]83 Outplacement Consultant: Loreta Zelaya MD Eosinophils/100 WBC (Bld) 2 % Normal 1-4 [facility] Comment on above: Performed By: #### U AMIC #### [address] [place], [facility]83 Outplacement Consultant: Loreta Zelaya MD Erythrocyte distribution width (RBC) [Ratio] 13.6 % Normal 11.8-14.4 [facility] Comment on above: Performed By: #### U AMIC #### [address] [place], [facility]83 Outplacement Consultant: Loreta Zelaya MD Hematocrit (Bld) [Volume fraction] 36.9 % Normal 36.3-47.1 [facility] Comment on above: Performed By: #### U AMIC #### [facility] [address] [place], [place] [id number] Outplacement Consultant: Loreta Zelaya MD Hemoglobin (Bld) [Mass/Vol] 11.8 g/dL Low 11.9-15.1 [facility] Comment on above: Performed By: #### U AMIC #### [facility] [address] [place], [place] [id number] Outplacement Consultant: Loreta Zelaya MD Immature granulocytes/100 WBC (Bld) 1 % High 0 [facility] Comment on above: Performed By: #### U AMIC #### [address] [place] [id number] Outplacement Consultant: Loreta Zelaya MD Lymphocytes (Bld) [#/Vol] 1.62 10*3/uL Normal 1.10-3.70 [facility] Comment on above: Performed By: #### U AMIC #### [address] [place] [id number] Outplacement Consultant: Loreta Zelaya MD Lymphocytes/100 WBC (Bld) 39 % Normal 24-43 [facility] Comment on above: Performed By: #### U AMIC #### [address] [place] [id number] Outplacement Consultant: Loreta Zelaya MD MCH (RBC) [Entitic mass] 33.1 pg Normal 25.2-33.5 [facility] Comment on above: Performed By: #### U AMIC #### [facility] [address] [place] [address] [address] [id number] Outplacement Consultant: Loreta Zelaya MD MCHC (RBC) [Mass/Vol] 32.0 g/dL Normal 28.4-34.8 [facility] Comment on above: Performed By: #### U AMIC #### [facility] [address] [place] [address] Dr[place] [id number] Outplacement Consultant: Loreta Zelaya MD MCV (RBC) [Entitic vol] 103.4 fL High 82.6-102.9 [facility] Comment on above: Performed By: #### U AMIC #### [facility] [address] [place] [address] [place], [place] [id number] Outplacement Consultant: Loreta Zelaya MD Monocytes (Bld) [#/Vol] 0.47 10*3/uL Normal 0.10-1.20 [facility] Comment on above: Performed By: #### U AMIC #### [address] [place] [id number] Outplacement Consultant: Loreta Zelaya MD Monocytes/100 WBC (Bld) 11 % Normal 3-12 [facility] Comment on above: Performed By: #### U AMIC #### [address] [place], [facility]83 Outplacement Consultant: Loreta Zelaya MD Neutrophil (Seg) 46 % Normal 36-65 [facility] Comment on above: Performed By: #### U AMIC #### [address] [place], [facility]83 Outplacement Consultant: Loreta Zelaya MD NRBC Automated 0.0 per 100 WBC Normal 0.0 [facility] Comment on above: Performed By: #### U AMIC #### [facility] [address] [place] [address] Dr[place], [facility]83 Outplacement Consultant: Loreta Zelaya MD Platelet mean volume (Bld) [Entitic vol] 10.0 fL Normal 8.1-13.5 [facility] Comment on above: Performed By: #### U AMIC #### [address] [place] [address] Outplacement Consultant: Loreta Zelaya MD Platelets (Bld) [#/Vol] 256 10*3/uL Normal 138-453 [facility] Comment on above: Performed By: #### U AMIC #### [facility] [address] [place], [place] [id number] Outplacement Consultant: Loreta Zelaya MD RBC (Bld) [#/Vol] 3.57 10*6/uL Low 3.95-5.11 [facility] Comment on above: Performed By: #### U AMIC #### [facility] [address] [place], [place] [id number] Outplacement Consultant: Loreta Zelaya MD WBC (Bld) [#/Vol] 4.2 10*3/uL Normal 3.5-11.3 [facility] Comment on above: Performed By: #### U AMIC #### [facility] [address] [place], [place] [id number] Outplacement Consultant: Loreta Zelaya MD Comp Metabolic Pr/rfx MGon 0 - Albumin [Mass/Vol] 2.9 g/dL Low 3.5-5.2 [facility] Comment on above: Performed By: #### U AMIC #### [facility] [address] [place], [place] [id number] Outplacement Consultant: Loreta Zelaya MD Albumin/Glob Ratio 1.7 Normal 1.0-2.5 [facility] Comment on above: Performed By: #### U AMIC #### [facility] [address] [place], [place] [phone] Outplacement Consultant: Loreta Zelaya MD Alkaline Phos 82 U/L Normal 35-104 [facility] [place] Comment on above: Performed By: #### U AMIC #### [facility] [address] [place] [address] Outplacement Consultant: Loreta Zelaya MD ALT [Catalytic activity/Vol] 37 U/L High 10-35 [facility] Comment on above: Performed By: #### U AMIC #### [facility] [address] [place], [place] [phone] Outplacement Consultant: Loreta Zelaya MD Anion gap [Moles/Vol] 8 mmol/L Low 9-16 [facility] Comment on above: Performed By: #### U AMIC #### [facility] [address] [place], [place] [phone] Outplacement Consultant: Loreta Zelaya MD AST [Catalytic activity/Vol] 44 U/L High 10-35 [facility] Comment on above: Performed By: #### U AMIC #### [facility] [address] [place], [place] [phone] Outplacement Consultant: Loreta Zelaya MD Bilirubin [Mass/Vol] mg/dL Normal 0.00-1.20 [facility] Comment on above: Performed By: #### U AMIC #### [facility] [address] [place], [place] [phone] Outplacement Consultant: Loreta Zelaya MD BUN/CRE Ratio 38 High 9-20 [facility] Comment on above: Performed By: #### U AMIC #### [facility] [address] [place], [place] [phone] Outplacement Consultant: Loreta Zelaya MD Calcium [Mass/Vol] 8.3 mg/dL Low 8.6-10.4 [facility] Comment on above: Performed By: #### U AMIC #### [facility] [address] [place], [place] [phone] Outplacement Consultant: Loreta Zelaya MD Chloride [Moles/Vol] 104 mmol/L Normal 98-107 [facility] Comment on above: Performed By: #### U AMIC #### [facility] [address] [place], [place] [phone] Outplacement Consultant: Loreta Zelaya MD CO2 [Moles/Vol] 27 mmol/L Normal 20-31 [facility] Comment on above: Performed By: #### U AMIC #### [facility] [address] [place] [address] Outplacement Consultant: Loreta Zelaya MD Creatinine [Mass/Vol] 0.4 mg/dL Low 0.50-0.90 [facility] Comment on above: Performed By: #### U AMIC #### [facility] [address] [place], [place] [phone] Outplacement Consultant: Loreta Zelaya MD GFR/1.73 sq M.predicted among non-blacks MDRD (S/P/Bld) [Vol rate/Area] mL/min/{1.73_m2} Normal >60 [facility] Comment on above: Result Comment: These results are not intended for use in patients <18 years of age. eGFR results are calculated without a race factor using the 2020 CKD-EPI equation. Careful clinical correlation is recommended, particularly when comparing to results calculated using previous equations. The CKD-EPI equation is less accurate in patients with extremes of muscle mass, extra-renal metabolism of creatine, excessive creatine ingestion, or following therapy that affects renal tubular secretion. Performed By: #### U AMIC #### [facility] [address] [place] [address] [place] [address] Outplacement Consultant: Loreta Zelaya MD Glucose [Mass/Vol] 98 mg/dL Normal 74-99 [facility] Comment on above: Performed By: #### U AMIC #### [facility] [address] [place] [address] Outplacement Consultant: Loreta Zelaya MD Potassium [Moles/Vol] 4.0 mmol/L Normal 3.7-5.3 [facility] Comment on above: Performed By: #### U AMIC #### [facility] [address] [place] [address] Outplacement Consultant: Loreta Zelaya MD Protein [Mass/Vol] 4.7 g/dL Low 6.6-8.7 [facility] Comment on above: Performed By: #### U AMIC #### [facility] [address] [place] [address] Outplacement Consultant: Loreta Zelaya MD Sodium [Moles/Vol] 139 mmol/L Normal 136-145 [facility] Comment on above: Performed By: #### U AMIC #### [facility] [address] [place] [address] Outplacement Consultant: Loreta Zelaya MD Urea nitrogen [Mass/Vol] 15 mg/dL Normal 6-20 [facility] Comment on above: Performed By: #### U AMIC #### [facility] [address] [place] [address] Outplacement Consultant: Loreta Zelaya MD Comprehensive Metabolic Pane l w/ Reflex to MGon 10-18-2024 Albumin [Mass/Vol] 2.9 g/dL Low 3.5 - 5.2 g/dL [facility] Albumin/Globulin [Mass ratio] 1.7 {ratio} 1.0 - 2.[address] [facility] ALP [Catalytic activity/Vol] 82 U/L 35 - 104 U/L [facility] ALT [Catalytic activity/Vol] 37 U/L High 10 - 35 U/L [facility] Anion gap [Moles/Vol] 8 mmol/L Low 9 - 16 mmol/L [facility] AST [Catalytic activity/Vol] 44 U/L High 10 - 35 U/L [facility] Bilirubin [Mass/Vol] mg/dL 0.00 - 1.20 mg/dL [facility] Calcium [Mass/Vol] 8.3 mg/dL Low 8.6 - 10. 4 mg/dL [facility] Chloride [Moles/Vol] 104 mmol/L 98 - 10 7 mmol/L [facility] CO2 [Moles/Vol] 27 mmol/L 20 - 31 mmol/L [facility] Creatinine [Mass/Vol] 0.4 mg/dL Low 0.50 - 0.90 mg/dL [facility] Est, Glom Filt Rate - PINF [facility] Comment on above: These results are not intended for use in patients <18 years of age. eGFR results are calculated without a race factor using the 2020 CKD-EPI equation. Careful clinical correlation is recommended, particularly when comparing to results calculated using previous equations. The CKD-EPI equation is less accurate in patients with extremes of muscle mass, extra-renal metabolism of creatine, excessive creatine ingestion, or following therapy that affects renal tubular secretion. Glucose [Mass/Vol] 98 mg/dL 74 - 99 mg/dL [facility] Interpretation and review of laboratory results Abnormal [facility] Potassium [Moles/Vol] 4 mmol/L 3.7 - 5.3 mmol/L [facility] Protein [Mass/Vol] 4.7 g/dL Low 6.6 - 8.7 g/dL [facility] Sodium [Moles/Vol] 139 mmol/L 136 - 145 mmol/L [facility] Urea nitrogen [Mass/Vol] 15 mg/dL 6 - 20 mg/dL [facility] Urea nitrogen/Creatinine [Mass ratio] 38 mg/mg High 9 - 20 [facility] EKG Rhythm Stripon 5 [facility] Glucose, Whole Bloodon 10-18 Glucose [Mass/Vol] 230 mg/dL High 74 - 100 mg/dL [facility] Interpretation and review of laboratory results Abnormal [facility] Glucose [Mass/Vol] 230 mg/dL High 74-100 [facility] Glucose [Mass/Vol] 99 mg/dL 74 - 100 mg/dL [facility] Glucose [Mass/Vol] 99 mg/dL Normal 74-100 [facility] Insulinon 10-18-2024 Insulin 1.1 mU/L Normal [facility] Comment on above: Performed By: #### I NSU #### [facility] [employer] [address] [place] [address] Outplacement Consultant: Gee Royal MD [facility] [address] [place] [address] Outplacement Consultant: Loreta Zelaya MD #### CPEP #### [place] [id number] [place] [address] Outplacement Consultant: Gee Royal MD Reference Range Normal [facility] Comment on above: Result Comment: Fast in.6-24.9 30 min: 20-112 60 min: 29-88 90 min: 26-84 120 min: 22-79 Performed By: #### I NSU #### [address] [address] Outplacement Consultant: Gee Royal MD [facility] [address] [place] [address] [place] [address] Outplacement Consultant: Loreta Zelaya MD #### CPEP #### [address] [address] Outplacement Consultant: Gee Royal MD Collection Info. 0615 Normal [facility] Comment on above: Performed By: #### I NSU #### [address] [address] Outplacement Consultant: Gee Royal MD [facility] [address] [place] [address] [place] [address] Outplacement Consultant: Loreta Zelaya MD #### CPEP #### [address] [address] Outplacement Consultant: Gee Royal MD TSHon 10-18-2024 TSH Qn 3.09 m[IU]/L [facility] Bon [facility] Thyroid Stim. Horm.on 2024 Thyroid Stim. Horm. 3.09 uIU/mL Normal 0.27-4.20 [facility] Comment on above: Performed By: #### U AMIC #### [facility] [address] [place] [address] Outplacement Consultant: Loreta Zelaya MD Thyroxine, Freeon 10-18-2024 Thyroxine, Free 0.9 ng/dL Low 0.92-1.68 [facility] Comment on above: Performed By: #### U AMIC #### [facility] [address] [place], [place] [phone] Outplacement Consultant: Loreta Zelaya MD Albumin/Creat Ratio, Urineon 10-17-2024 Albumin,conc.Necedah U <12 Normal 0-20 [facility] Comment on above: Performed By: #### U AMIC #### [facility] [address] [place], [place] [id number] Outplacement Consultant: Loreta Zelaya MD Albumin/Creat Ratio Can not be calculated Normal 0.0-25.0 [facility] Comment on above: Performed By: #### U AMIC #### [facility] [address] [place], [place] [phone] Outplacement Consultant: Loreta Zelaya MD Creatinine Conc. 46.7 mg/dL Normal 28.0-217.0 [facility] Comment on above: Result Comment: Refe rence range defined for 1st morning urine Performed By: #### U AMIC #### [facility] [address] [place] [address] [place] [address] Outplacement Consultant: Loreta Zelaya MD Albumin/Creatinine Ratio, Ur ineon 10-17-2024 Albumin DL <= 20 mg/L (U) [Mass/Vol] mg/L 0 - 20 mg/L [facility] Albumin/Creatinine DL <= 20 mg/L (U) [Ratio] Can not be calculated [facility] Creatinine (U) [Mass/Vol] 46.7 mg/dL 28.0 - 217.0 mg/dL [facility] Comment on above: Reference range defi radha for 1st morning urine [facility] CBC auto differentialon 10-03 Basophils (Bld) [#/Vol] 0.04 10*3/uL [facility] Basophils/100 WBC (Bld) 1 % 0 - 2 % B on [facility] Eosinophils (Bld) [#/Vol] 0.11 10*3/uL [facility] Eosinophils/100 WBC (Bld) 3 % 1 - 4 % [facility] Erythrocyte distribution width (RBC) [Ratio] 13.5 % 11.8 - 14.4 % [facility] Hematocrit (Bld) [Volume fraction] 34.7 % Low 36.3 - 47.1 % [facility] Hemoglobin (Bld) [Mass/Vol] 11.3 g/dL Low 11.9 - 15.1 g/dL [facility] Immature granulocytes (Bld) [#/Vol] [facility] Immature granulocytes/100 WBC (Bld) 1 % High [address] [facility] Interpretation and review of laboratory results Abnormal [facility] Lymphocytes/100 WBC (Bld) 45 % High 24 - 43 % [facility] Lymphocytes/100 WBC (Bld) 1.57 % [facility] MCH (RBC) [Entitic mass] 33 pg 25.2 - 33.[address] [facility] MCHC (RBC) [Mass/Vol] 32.6 g/dL 28.4 - 34.8 g/dL [facility] MCV (RBC) [Entitic vol] 101.5 fL 82.6 - 102.9 fL [facility] Monocytes/100 WBC (Bld) 14 % High 3 - 12 % B on [facility] Monocytes/100 WBC (Bld) 0.48 % B on [facility] Neutrophils/100 WBC (Bld) 36 % 36 - 65 % [facility] Nucleated RBC/100 WBC (Bld) [Ratio] 0 % 0.0 per [address] [facility] Platelet mean volume (Bld) [Entitic vol] 10.1 fL 8.1 - 13.[address] [facility] Platelets (Bld) [#/Vol] 219 10*3/uL [facility] RBC (Bld) [#/Vol] 3.42 10*6/uL Low 3.95 - 5.1 1 m/uL [facility] Segmented neutrophils/100 WBC (Bld) 1.26 % Low [facility] WBC other (Bld) [#/Vol] 3.5 B on [facility] Bon [facility] CBC with Diffon 10-17-2024 Abs. Basophil 0.04 k/uL Normal 0.00-0.20 [facility] Comment on above: Performed By: #### B MP #### [facility] [address] [place] [address] Outplacement Consultant: Loreta Zelaya MD Abs.Imm.Granulocyte <0.03 Normal 0.00-0.30 [facility] Comment on above: Performed By: #### B MP #### [facility] [address] [place] [address] Outplacement Consultant: Loreta Zelaay MD Abs.Neutrophil (Seg) 1.26 k/uL Low 1.50-8.10 [facility] Comment on above: Performed By: #### B MP #### [facility] [address] [place] [address] [place], [place] 1088583 Outplacement Consultant: Loreta Zelaya MD Basophils/100 WBC (Bld) 1 % Normal 0-2 [facility] Comment on above: Performed By: #### B MP #### [address] [place] [address] Outplacement Consultant: Loreta Zelaya MD Eosinophils (Bld) [#/Vol] 0.11 10*3/uL Normal 0.00-0.44 [facility] Comment on above: Performed By: #### B MP #### [facility] [address] [place] [address] Outplacement Consultant: Loreta Zelaya MD Eosinophils/100 WBC (Bld) 3 % Normal 1-4 [facility] Comment on above: Performed By: #### B MP #### [facility] [address] [place], [place] [phone] Outplacement Consultant: Loreta Zelaya MD Erythrocyte distribution width (RBC) [Ratio] 13.5 % Normal 11.8-14.4 [facility] Comment on above: Performed By: #### B MP #### [facility] [address] [place], [place] [phone] Outplacement Consultant: Loreta Zelaya MD Hematocrit (Bld) [Volume fraction] 34.7 % Low 36.3-47.1 [facility] Comment on above: Performed By: #### B MP #### [facility] [address] [place], [place] [phone] Outplacement Consultant: Loreta Zelaya MD Hemoglobin (Bld) [Mass/Vol] 11.3 g/dL Low 11.9-15.1 [facility] Comment on above: Performed By: #### B MP #### [facility] [address] [place], [place] [phone] Outplacement Consultant: Loreta Zelaya MD Immature granulocytes/100 WBC (Bld) 1 % High 0 [facility] Comment on above: Performed By: #### B MP #### [facility] [address] [place], [facility]83 Outplacement Consultant: Loreta Zelaya MD Lymphocytes (Bld) [#/Vol] 1.57 10*3/uL Normal 1.10-3.70 [facility] Comment on above: Performed By: #### B MP #### [facility] [address] [place], [facility]83 Outplacement Consultant: Loreta Zelaya MD Lymphocytes/100 WBC (Bld) 45 % High 24-43 [facility] Comment on above: Performed By: #### B MP #### [facility] [address] [place] [id number] Outplacement Consultant: Loreta Zelaya MD MCH (RBC) [Entitic mass] 33.0 pg Normal 25.2-33.5 [facility] Comment on above: Performed By: #### B MP #### [facility] [address] [place] [address] Outplacement Consultant: Loreta Zelaya MD MCHC (RBC) [Mass/Vol] 32.6 g/dL Normal 28.4-34.8 [facility] Comment on above: Performed By: #### B MP #### [address] [place], [place] 0245883 Outplacement Consultant: Loreta Zelaya MD MCV (RBC) [Entitic vol] 101.5 fL Normal 82.6-102.9 [facility] Comment on above: Performed By: #### B MP #### [address] [place], [place] 8358583 Outplacement Consultant: Loreta Zelaya MD Monocytes (Bld) [#/Vol] 0.48 10*3/uL Normal 0.10-1.20 [facility] Comment on above: Performed By: #### B MP #### [address] [place], [place] 5210083 Outplacement Consultant: Loreta Zelaya MD Monocytes/100 WBC (Bld) 14 % High 3-12 [facility] Comment on above: Performed By: #### B MP #### [address] [place], [place] 5377983 Outplacement Consultant: Loreta Zelaya MD Neutrophil (Seg) 36 % Normal 36-65 [facility] Comment on above: Performed By: #### B MP #### [address] [place], [facility]83 Outplacement Consultant: Loreta Zelaya MD NRBC Automated 0.0 per 100 WBC Normal 0.0 [facility] Comment on above: Performed By: #### B MP #### [address] [place], [place] [id number] Outplacement Consultant: Loreta Zelaya MD Platelet mean volume (Bld) [Entitic vol] 10.1 fL Normal 8.1-13.5 [facility] Comment on above: Performed By: #### B MP #### [facility] [address] [place], [place] 1954883 Outplacement Consultant: Loreta Zelaya MD Platelets (Bld) [#/Vol] 219 10*3/uL Normal 138-453 [facility] Comment on above: Performed By: #### B MP #### [facility] [address] [place], [place] [phone] Outplacement Consultant: Loreta Zelaya MD RBC (Bld) [#/Vol] 3.42 10*6/uL Low 3.95-5.11 [facility] Comment on above: Performed By: #### B MP #### [facility] [address] [place], [place] [id number] Outplacement Consultant: Loreta Zelaya MD WBC (Bld) [#/Vol] 3.5 10*3/uL Normal 3.5-11.3 [facility] Comment on above: Performed By: #### B MP #### [address] [place], [place] [id number] Outplacement Consultant: Loreta Zelaya MD CTA ABDOMEN PELVIS W CONTRAS Ton 10-17-2024 CTA ABDOMEN PELVIS W CONTRAST EXAMINATION: CTA OF THE ABDOMEN AND PELVIS WITH CONTRAST 10/17/2024 9:37 am: TECHNIQUE: CTA of the abdomen and pelvis was performed with the administration of intravenous contrast. Multiplanar reformatted images are provided for review. MIP images are provided for review. Automated exposure control, iterative reconstruction, and/or weight based adjustment of the mA/kV was utilized to reduce the radiation dose to as low as reasonably achievable. COMPARISON: None. HISTORY: ORDERING SYSTEM PROVIDED HISTORY: leg edema / hx of cervical ca TECHNOLOGIST PROVIDED HISTORY: leg edema / hx of cervical ca Additional Contrast?->1 FINDINGS: CTA ABDOMEN: No abdominal aortic aneurysm or dissection. No significant arterial stenosis, occlusion or abnormal filling defect. Minimal right lower lobe subsegmental atelectasis or scarring. No hydronephrosis or nephrolithiasis. Liver, gallbladder, adrenal glands, pancreas and spleen appear unremarkable. Small hiatal hernia. Probable constipation. No acute obstruction. Normal appendix. No appreciable bowel wall thickening. No free air or drainable fluid collection. Moderate diffuse body wall edema. No acute fracture. CTA PELVIS: No arterial aneurysm or dissection. No significant arterial stenosis, occlusion or abnormal filling defect. Uterus and urinary bladder appear grossly unremarkable. Moderate diffuse body wall edema. No acute fracture. IMPRESSION: 1. Unremarkable abdominopelvic arteries. No aneurysm or dissection. 2. Moderate diffuse body wall edema which may reflect anasarca. 3. Uterus appears unremarkable as visualized. 4. Probable constipation. 5. Additional findings, as above. Interpreted by: Hosea Martinez MD Signed by: Hosea Martinez MD 10/17/24 Final result Normal [facility] CTA Abdominal vessels and Pe lvis vessels W contrast Wesley 10-17-2024 1. Unremarkable abdominopelvic arteries. No aneurysm or dissection. 2. Moderate diffuse body wall edema which may reflect anasarca. 3. Uterus appears unremarkable as visualized. 4. Probable constipation. 5. Additional findings, as above. [facility] CONSOLID[facility] EXAMINATION: CTA OF THE ABDOMEN AND PELVIS WITH CONTRAST 10/17/2024 9:37 am: TECHNIQUE: CTA of the abdomen and pelvis was performed with the administration of intravenous contrast. Multiplanar reformatted images are provided for review. MIP images are provided for review. Automated exposure control, iterative reconstruction, and/or weight based adjustment of the mA/kV was utilized to reduce the radiation dose to as low as reasonably achievable. COMPARISON: None. HISTORY: ORDERING SYSTEM PROVIDED HISTORY: leg edema / hx of cervical ca TECHNOLOGIST PROVIDED HISTORY: leg edema / hx of cervical ca Additional Contrast?->1 FINDINGS: CTA ABDOMEN: No abdominal aortic aneurysm or dissection. No significant arterial stenosis, occlusion or abnormal filling defect. Minimal right lower lobe subsegmental atelectasis or scarring. No hydronephrosis or nephrolithiasis. Liver, gallbladder, adrenal glands, pancreas and spleen appear unremarkable. Small hiatal hernia. Probable constipation. No acute obstruction. Normal appendix. No appreciable bowel wall thickening. No free air or drainable fluid collection. Moderate diffuse body wall edema. No acute fracture. CTA PELVIS: No arterial aneurysm or dissection. No significant arterial stenosis, occlusion or abnormal filling defect. Uterus and urinary bladder appear grossly unremarkable. Moderate diffuse body wall edema. No acute fracture. [facility] CONSOLID[facility] Hosea Martinez MD - 10/17/2024 EXAMINATION: CTA OF THE ABDOMEN AND PELVIS WITH CONTRAST 10/17/2024 9:37 am: TECHNIQUE: CTA of the abdomen and pelvis was performed with the administration of intravenous contrast. Multiplanar reformatted images are provided for review. MIP images are provided for review. Automated exposure control, iterative reconstruction, and/or weight based adjustment of the mA/kV was utilized to reduce the radiation dose to as low as reasonably achievable. COMPARISON: None. HISTORY: ORDERING SYSTEM PROVIDED HISTORY: leg edema / hx of cervical ca TECHNOLOGIST PROVIDED HISTORY: leg edema / hx of cervical ca Additional Contrast?->1 FINDINGS: CTA ABDOMEN: No abdominal aortic aneurysm or dissection. No significant arterial stenosis, occlusion or abnormal filling defect. Minimal right lower lobe subsegmental atelectasis or scarring. No hydronephrosis or nephrolithiasis. Liver, gallbladder, adrenal glands, pancreas and spleen appear unremarkable. Small hiatal hernia. Probable constipation. No acute obstruction. Normal appendix. No appreciable bowel wall thickening. No free air or drainable fluid collection. Moderate diffuse body wall edema. No acute fracture. CTA PELVIS: No arterial aneurysm or dissection. No significant arterial stenosis, occlusion or abnormal filling defect. Uterus and urinary bladder appear grossly unremarkable. Moderate diffuse body wall edema. No acute fracture. IMPRESSION: 1. Unremarkable abdominopelvic arteries. No aneurysm or dissection. 2. Moderate diffuse body wall edema which may reflect anasarca. 3. Uterus appears unremarkable as visualized. 4. Probable constipation. 5. Additional findings, as above. [facility] Radiology Study observation (narrative) [facility] CTA Abdominal vessels and Pe lvis vessels W contrast IVOrdered By: Hosea Martinez on 10-17-[address] [facility] Work Phone: Comp Metabolic Pr/rfx MGon 0 10-17-2024 Albumin [Mass/Vol] 3.0 g/dL Low 3.5-5.2 [facility] Comment on above: Performed By: #### B MP #### [facility] [address] [place] [address] Outplacement Consultant: Loreta Zelaya MD Albumin/Glob Ratio 1.9 Normal 1.0-2.5 [facility] Comment on above: Performed By: #### B MP #### [facility] [address] [place], [place] [id number] Outplacement Consultant: Loreta Zelaya MD Alkaline Phos 104 U/L Normal 35-104 [facility] Comment on above: Performed By: #### B MP #### [facility] [address] [place], [place] [id number] Outplacement Consultant: Loreta Zelaya MD ALT [Catalytic activity/Vol] 34 U/L Normal 10-35 [facility] Comment on above: Performed By: #### B MP #### [facility] [address] [place], [place] [id number] Outplacement Consultant: Loreta Zelaya MD Anion gap [Moles/Vol] 8 mmol/L Low 9-16 [facility] Comment on above: Performed By: #### B MP #### [facility] [address] [place], [place] [id number] Outplacement Consultant: Loreta Zelaya MD AST [Catalytic activity/Vol] 28 U/L Normal 10-35 [facility] Comment on above: Performed By: #### B MP #### [facility] [address] [place], [place] [id number] Outplacement Consultant: Loreta Zelaya MD Bilirubin [Mass/Vol] mg/dL Normal 0.00-1.20 [facility] Comment on above: Performed By: #### B MP #### [facility] [address] [place], [place] [id number] Outplacement Consultant: Loreta Zelaya MD BUN/CRE Ratio 38 High 9-20 [facility] Comment on above: Performed By: #### B MP #### [facility] [address] [place], [place] [id number] Outplacement Consultant: Loreta Zelaya MD Calcium [Mass/Vol] 8.2 mg/dL Low 8.6-10.4 [facility] Comment on above: Performed By: #### B MP #### [facility] [address] [place], [place] [id number] Outplacement Consultant: Loreta Zelaya MD Chloride [Moles/Vol] 103 mmol/L Normal 98-107 [facility] Comment on above: Performed By: #### B MP #### [facility] [address] [place], [place] [id number] Outplacement Consultant: Loreta Zelaya MD CO2 [Moles/Vol] 26 mmol/L Normal 20-31 [facility] Comment on above: Performed By: #### B MP #### [facility] [address] [place], [place] [id number] Outplacement Consultant: Loreta Zelaya MD Creatinine [Mass/Vol] 0.4 mg/dL Low 0.50-0.90 [facility] Comment on above: Performed By: #### B MP #### [facility] [address] [place], [place] [id number] Outplacement Consultant: Loreta Zelaya MD GFR/1.73 sq M.predicted among non-blacks MDRD (S/P/Bld) [Vol rate/Area] mL/min/{1.73_m2} Normal >60 [facility] Comment on above: Result Comment: These results are not intended for use in patients <18 years of age. eGFR results are calculated without a race factor using the 2020 CKD-EPI equation. Careful clinical correlation is recommended, particularly when comparing to results calculated using previous equations. The CKD-EPI equation is less accurate in patients with extremes of muscle mass, extra-renal metabolism of creatine, excessive creatine ingestion, or following therapy that affects renal tubular secretion. Performed By: #### B MP #### [facility] [address] [place] [address] Outplacement Consultant: Loreta Zelaya MD Glucose [Mass/Vol] 248 mg/dL High 74-99 [facility] Comment on above: Performed By: #### B MP #### [facility] [address] [place] [address] [place] [address] Outplacement Consultant: Loreta Zelaya MD Potassium [Moles/Vol] 3.8 mmol/L Normal 3.7-5.3 [facility] Comment on above: Performed By: #### B MP #### [facility] [address] [place] [address] [place], [place] [id number] Outplacement Consultant: Loreta Zelaya MD Protein [Mass/Vol] 4.5 g/dL Low 6.6-8.7 [facility] Comment on above: Performed By: #### B MP #### [address] [place], [place] [id number] Outplacement Consultant: Loreta Zelaya MD Sodium [Moles/Vol] 137 mmol/L Normal 136-145 [facility] Comment on above: Performed By: #### B MP #### [address] [place], [place] [id number] Outplacement Consultant: Loreta Zelaya MD Urea nitrogen [Mass/Vol] 15 mg/dL Normal 6-20 [facility] Comment on above: Performed By: #### B MP #### [facility] [address] [place] [address] [place], [place] [id number] Outplacement Consultant: Loreta Zelaya MD Comprehensive Metabolic Pane l w/ Reflex to MGon 10-17-2024 Albumin [Mass/Vol] 3 g/dL Low 3.5 - 5.2 g/dL [facility] Albumin/Globulin [Mass ratio] 1.9 {ratio} 1.0 - 2.[address] [facility] ALP [Catalytic activity/Vol] 104 U/L 35 - 104 U/L [facility] ALT [Catalytic activity/Vol] 34 U/L 10 - 35 U/L [facility] Anion gap [Moles/Vol] 8 mmol/L Low 9 - 16 mmol/L [facility] AST [Catalytic activity/Vol] 28 U/L 10 - 35 U/L [facility] Bilirubin [Mass/Vol] mg/dL 0.00 - 1.20 mg/dL [facility] Calcium [Mass/Vol] 8.2 mg/dL Low 8.6 - 10. 4 mg/dL [facility] Chloride [Moles/Vol] 103 mmol/L 98 - 10 7 mmol/L [facility] CO2 [Moles/Vol] 26 mmol/L 20 - 31 mmol/L [facility] Creatinine [Mass/Vol] 0.4 mg/dL Low 0.50 - 0.90 mg/dL [facility] Est, Glohayley Garciat Rate - PINF [facility] Comment on above: These results are not intended for use in patients <18 years of age. eGFR results are calculated without a race factor using the 2020 CKD-EPI equation. Careful clinical correlation is recommended, particularly when comparing to results calculated using previous equations. The CKD-EPI equation is less accurate in patients with extremes of muscle mass, extra-renal metabolism of creatine, excessive creatine ingestion, or following therapy that affects renal tubular secretion. Glucose [Mass/Vol] 248 mg/dL High 74 - 99 mg/dL [facility] Interpretation and review of laboratory results Abnormal [facility] Potassium [Moles/Vol] 3.8 mmol/L 3.7 - 5.3 mmol/L [facility] Protein [Mass/Vol] 4.5 g/dL Low 6.6 - 8.7 g/dL [facility] Sodium [Moles/Vol] 137 mmol/L 136 - 145 mmol/L [facility] Urea nitrogen [Mass/Vol] 15 mg/dL 6 - 20 mg/dL [facility] Urea nitrogen/Creatinine [Mass ratio] 38 mg/mg High 9 - 20 [facility] EKG 12 Leadon 10-17-2024 Atrial Rate [address] [facility] P Orange [address] [facility] P-R Interval [address] [facility] Q-T Interval [address] [facility] QRS Duration [address] [facility] QTc Calculation (Bazett) [address] [facility] R Orange [address] [facility] T Orange [address] [facility] Ventricular Rate 88 BPM [facility] Normal sinus rhythm Low voltage QRS Borderline ECG No previous ECGs available Confirmed by BECKY AVILA ([id number]) on 10/17/2024 9:32:24 AM [facility] Becky Avila MD - 10/17/2024 Normal sinus rhythm Low voltage QRS Borderline ECG No previous ECGs available Confirmed by BECKY AVILA ([id number]) on 10/17/2024 9:32:24 AM [facility] EKG Rhythm Stripon [facility] Glucose, Whole Bloodon 10-17 Glucose [Mass/Vol] 119 mg/dL High 74 - 100 mg/dL [facility] Interpretation and review of laboratory results Abnormal [facility] Glucose [Mass/Vol] 119 mg/dL High 74-100 [facility] Glucose [Mass/Vol] 191 mg/dL High 74 - 100 mg/dL [facility] Interpretation and review of laboratory results Abnormal [facility] Glucose [Mass/Vol] 191 mg/dL High 74-100 [facility] Glucose [Mass/Vol] 111 mg/dL High 74 - 100 mg/dL [facility] Interpretation and review of laboratory results Abnormal [facility] Glucose [Mass/Vol] 111 mg/dL High 74-100 [facility] Glucose [Mass/Vol] 172 mg/dL High 74 - 100 mg/dL [facility] Interpretation and review of laboratory results Abnormal [facility] Glucose [Mass/Vol] 172 mg/dL High 74-100 [facility] Glucose [Mass/Vol] 402 mg/dL High 74 - 100 mg/dL [facility] Interpretation and review of laboratory results Abnormal [facility] Glucose [Mass/Vol] 402 mg/dL High 74-100 [facility] Hemoglobin A1Con 10-17-2024 Average glucose Estimated from glycated hemoglobin (Bld) [Mass/Vol] 364 mg/dL [facility] Comment on above: The ADA and AACC rec ommend providing the estimated average glucose result to permit better patient understanding of their HBA1c result. HbA1c (Bld) [Mass fraction] 14.3 % High 4.0 - 6.0 % [facility] Interpretation and review of laboratory results Abnormal [facility] Glucose [Mass/Vol] 364 mg/dL Normal [facility] Comment on above: Result Comment: The ADA and AACC recommend providing the estimated average glucose result to permit better patient understanding of their HBA1c result. Performed By: #### C DP #### [facility] [address] [place] [address] Outplacement Consultant: Loreta Zelaya MD HbA1c (Bld) [Mass fraction] 14.3 % High 4.0-6.0 [facility] Comment on above: Performed By: #### C DP #### [facility] [address] [place] [address] Outplacement Consultant: Loreta Zelaya MD Osmolality, Urineon 10-18-19 25 Osmolality (U) [Osmolality] 476 mosm/kg [facility] Osmolality - Urine 476 mOsm/kg Normal 80-1300 [facility] Comment on above: Performed By: #### U OSMO #### [facility] [address] [place] [address] Outplacement Consultant: Gee Royal MD #### URNA #### [facility] [address] [place] [address] Outplacement Consultant: Loreta Zelaya MD Protein / creatinine ratio, urineon 10-17-2024 Creatinine (U) [Mass/Vol] 43.9 mg/dL 28.0 - 217.0 mg/dL [facility] Interpretation and review of laboratory results Abnormal [facility] Protein (U) [Mass/Vol] 10 mg/dL [facility] Comment on above: No normal range esta blished. Urine Total Protein Creatinine Ratio 0.23 High 0.00 - 0.20 [facility] Protein,Tot,[place] Uron 2024 Creatinine [Mass/Vol] 43.9 mg/dL Normal 28.0-217.0 [facility] Comment on above: Performed By: #### C DP #### [facility] [address] [place], [place] [id number] Outplacement Consultant: Loreta Zelaya MD Tot Prot. Conc. 10 mg/dL Normal [facility] Comment on above: Result Comment: No n ormal range established. Performed By: #### C DP #### [facility] [address] [place], [place] [id number] Outplacement Consultant: Loreta Zelaya MD TP/Cre Ratio 0.23 High 0.00-0.20 [facility] Comment on above: Performed By: #### C DP #### [facility] [address] [place], [place] [id number] Outplacement Consultant: Loreta Zelaya MD Sodium, Random Uron 10-18-19 25 Sodium (U) [Moles/Vol] 30 mmol/L Normal [facility] Comment on above: No normal range esta blished. Result Comment: No n ormal range established. Performed By: #### U OSMO #### [facility] [employer] [address] [place], [place] [id number] Outplacement Consultant: Gee Royal MD #### URNA #### [facility] [address] [place] [address] Outplacement Consultant: Loreta Zelaya MD Sodium, urine, randomon 04- [facility] Urinalysis w/ Microon 2024 Bacteria 2+ Abnormal NONE [facility] Comment on above: Performed By: #### B MP #### [facility] [address] [place], [place] [id number] Outplacement Consultant: Loreta Zelaya MD Bilirubin, SemiQt,Ur Negative Normal NEG [facility] Comment on above: Performed By: #### B MP #### [facility] [address] [place], [place] [id number] Outplacement Consultant: Loreta Zelaya MD Blood, Urine Negative Normal NEG [facility] Comment on above: Performed By: #### B MP #### [facility] [address] [place], [place] [id number] Outplacement Consultant: Loreta Zelaya MD Clarity (U) Clear Normal CLEAR [facility] Comment on above: Performed By: #### B MP #### [facility] [address] [place], [place] [id number] Outplacement Consultant: Loreta Zelaya MD Color (U) Yellow Normal YEL [facility] Comment on above: Performed By: #### B MP #### [facility] [address] [place], [place] [phone] Outplacement Consultant: Loreta Zelaya MD Epithelial cells LM Ql (Urine sed) 5 TO 10 Normal 0-25 [facility] Comment on above: Performed By: #### B MP #### [facility] [address] [place] [address] Outplacement Consultant: Loreta Zelaya MD Glucose Ql (U) 3+ mg/dL Abnormal NEG [facility] Comment on above: Performed By: #### B MP #### [facility] [address] [place], [place] [phone] Outplacement Consultant: Loreta Zelaya MD Ketones Ql (U) Negative Normal NEG [facility] Comment on above: Performed By: #### B MP #### [facility] [address] [place], [place] [phone] Outplacement Consultant: Loreta Zelaya MD Leukocyte esterase Test strip Ql (U) Negative Normal NEG [facility] Comment on above: Performed By: #### B MP #### [facility] [address] [place] [address] [place], [place] [phone] Outplacement Consultant: Loreta Zelaya MD Nitrite,Ur Negative Normal NEG [facility] Comment on above: Performed By: #### B MP #### [facility] [address] [place] [address] [place], [place] [phone] Outplacement Consultant: Loreta Zelaya MD PH,Ur 6.0 Normal 5.0-9.0 [facility] Comment on above: Performed By: #### B MP #### [address] [place], [place] [id number] Outplacement Consultant: Loreta Zelaya MD Protein Ql (U) Negative Normal NEG [facility] Comment on above: Performed By: #### B MP #### [facility] [address] [place] [address] [place], [place] [phone] Outplacement Consultant: Loreta Zelaya MD Spec. [place],Ur 1.010 Normal 1.010-1.020 [facility] Comment on above: Performed By: #### B MP #### [address] [place], [place] [phone] Outplacement Consultant: Loreta Zelaya MD Urine RBC's 0 TO 2 Normal 0-2 [facility] Comment on above: Performed By: #### B MP #### [facility] [address] [place] [address] [place], [place] [phone] Outplacement Consultant: Loreta Zelaya MD Urine WBC's 2 TO 5 Normal 0-5 [facility] Comment on above: Performed By: #### B MP #### [facility] [address] [place] [address] [place], [place] [phone] Outplacement Consultant: Loreta Zelaya MD Urobilinogen,Ur Normal Normal 0.0-1.0 [facility] Comment on above: Performed By: #### B MP #### [facility] [address] [place] [address] Outplacement Consultant: Loreta Zelaya MD Yeast PRESENCE NOTED Abnormal NONE [facility] Comment on above: Performed By: #### B MP #### [facility] [address] [place] [address] Outplacement Consultant: Loreta Zelaya MD Urinalysis with Microscopico n 10-17-2024 Bacteria LM Ql (Urine sed) 2+ Abnormal None [facility] Bilirubin Ql (U) Negative NEGATIVE [facility] Clarity (U) Clear Clear [facility] Color (U) Yellow Yellow [facility] Epithelial cells LM.HPF (Urine sed) [#/Area] 5 TO [address] [facility] Glucose Test strip (U) [Mass/Vol] 3+ Abnormal NEGATIVE mg/dL [facility] Hemoglobin Auto test strip Ql (U) Negative NEGATIVE [facility] Interpretation and review of laboratory results Abnormal [facility] Ketones (U) [Mass/Vol] Negative NEGAT AMITA mg/dL [facility] Leukocyte esterase Test strip Ql (U) Negative NEGATIVE [facility] Nitrite Ql (U) Negative NEGATIVE [facility] pH (U) 6 [pH] 5.0 - 9.0 [facility] Protein (U) [Mass/Vol] Negative NEGAT AMITA mg/dL [facility] RBC LM.HPF (Urine sed) [#/Area] 0 TO 2 [facility] Specific gravity (U) [Rel density] 1.01 1.010 - 1.[address] [facility] Urobilinogen Qn (U) Normal 0.0 - 1. 0 EU/dL [facility] WBC LM.HPF (Urine sed) [#/Area] 2 TO 5 [facility] Yeast LM Ql (Urine sed) PRESENCE NOTED Abnormal None [facility] Brain Natri. Peptideon 10-16 Natriuretic peptide B (Bld) [Mass/Vol] 299 pg/mL High 0-125 [facility] Comment on above: Performed By: #### C DP #### [facility] [address] [place] [address] Outplacement Consultant: Loreta Zelaya MD Brain Natriuretic Peptideon 10-16-2024 Natriuretic peptide B (Bld) [Mass/Vol] 299 pg/mL High 0 - 125 pg/mL [facility] CBC with Auto Differentialon 10-16-2024 Basophils (Bld) [#/Vol] 0.05 10*3/uL [facility] Basophils/100 WBC (Bld) 1 % 0 - 2 % B on [facility] Eosinophils (Bld) [#/Vol] 0.12 10*3/uL [facility] Eosinophils/100 WBC (Bld) 3 % 1 - 4 % [facility] Erythrocyte distribution width (RBC) [Ratio] 13.3 % 11.8 - 14.4 % [facility] Hematocrit (Bld) [Volume fraction] 35.7 % Low 36.3 - 47.1 % [facility] Hemoglobin (Bld) [Mass/Vol] 11.7 g/dL Low 11.9 - 15.1 g/dL [facility] Immature granulocytes (Bld) [#/Vol] [facility] Immature granulocytes/100 WBC (Bld) 0 % [address] [facility] Interpretation and review of laboratory results Abnormal [facility] Lymphocytes/100 WBC (Bld) 34 % 24 - 43 % [facility] Lymphocytes/100 WBC (Bld) 1.57 % [facility] MCH (RBC) [Entitic mass] 33.5 pg 25.2 - 33.[address] [facility] MCHC (RBC) [Mass/Vol] 32.8 g/dL 28.4 - 34.8 g/dL [facility] MCV (RBC) [Entitic vol] 102.3 fL 82.6 - 102.[address] [facility] Monocytes/100 WBC (Bld) 12 % 3 - 12 % B on [facility] Monocytes/100 WBC (Bld) 0.55 % B on [facility] Neutrophils/100 WBC (Bld) 50 % 36 - 65 % [facility] Nucleated RBC/100 WBC (Bld) [Ratio] 0 % 0.0 per [address] [facility] Platelet mean volume (Bld) [Entitic vol] 10.4 fL 8.1 - 13.[address] [facility] Platelets (Bld) [#/Vol] 238 10*3/uL [facility] RBC (Bld) [#/Vol] 3.49 10*6/uL Low 3.95 - 5.1 1 m/uL [facility] Segmented neutrophils/100 WBC (Bld) 2.37 % [facility] WBC other (Bld) [#/Vol] 4.7 B on [facility] CBC with Diffon 10-16-2024 Abs. Basophil 0.05 k/uL Normal 0.00-0.20 [facility] Comment on above: Performed By: #### C DP #### [facility] [address] [place] [address] Dr. [place], [place] [id number] Outplacement Consultant: Loreta Zelaya MD Abs.Imm.Granulocyte <0.03 Normal 0.00-0.30 [facility] Comment on above: Performed By: #### C DP #### [facility] [address] [place] [address] [place] [address] Outplacement Consultant: Loreta Zelaya MD Abs.Neutrophil (Seg) 2.37 k/uL Normal 1.50-8.10 [facility] Comment on above: Performed By: #### C DP #### [facility] [address] [place], [place] [id number] Outplacement Consultant: Loreta Zelaya MD Basophils/100 WBC (Bld) 1 % Normal 0-2 [facility] Comment on above: Performed By: #### C DP #### [facility] [address] [place], [place] [id number] Outplacement Consultant: Loreta Zelaya MD Eosinophils (Bld) [#/Vol] 0.12 10*3/uL Normal 0.00-0.44 [facility] Comment on above: Performed By: #### C DP #### [facility] [address] [place], [facility]83 Outplacement Consultant: Loreta Zelaya MD Eosinophils/100 WBC (Bld) 3 % Normal 1-4 [facility] Comment on above: Performed By: #### C DP #### [facility] [address] [place], [place] [address] Outplacement Consultant: Loreta Zelaya MD Erythrocyte distribution width (RBC) [Ratio] 13.3 % Normal 11.8-14.4 [facility] Comment on above: Performed By: #### C DP #### [address] [place] [address] Outplacement Consultant: Loreta Zelaya MD Hematocrit (Bld) [Volume fraction] 35.7 % Low 36.3-47.1 [facility] Comment on above: Performed By: #### C DP #### [address] [place], [place] [address] Outplacement Consultant: Loreta Zelaya MD Hemoglobin (Bld) [Mass/Vol] 11.7 g/dL Low 11.9-15.1 [facility] Comment on above: Performed By: #### C DP #### [address] [place], [place] [address] Outplacement Consultant: Loreta Zelaya MD Immature granulocytes/100 WBC (Bld) 0 % Normal 0 [facility] Comment on above: Performed By: #### C DP #### [address] [place], [facility]83 Outplacement Consultant: Loreta Zelaya MD Lymphocytes (Bld) [#/Vol] 1.57 10*3/uL Normal 1.10-3.70 [facility] Comment on above: Performed By: #### C DP #### [facility] [address] [place], [place] [phone] Outplacement Consultant: Loreta Zelaya MD Lymphocytes/100 WBC (Bld) 34 % Normal 24-43 [facility] Comment on above: Performed By: #### C DP #### [facility] [address] [place], [facility]83 Outplacement Consultant: Loreta Zelaya MD MCH (RBC) [Entitic mass] 33.5 pg Normal 25.2-33.5 [facility] Comment on above: Performed By: #### C DP #### [facility] [address] [place] [address] Outplacement Consultant: Loreta Zelaya MD MCHC (RBC) [Mass/Vol] 32.8 g/dL Normal 28.4-34.8 [facility] Comment on above: Performed By: #### C DP #### [address] [place] [id number] Outplacement Consultant: Loreta Zelaya MD MCV (RBC) [Entitic vol] 102.3 fL Normal 82.6-102.9 [facility] Comment on above: Performed By: #### C DP #### [address] [place], [facility]83 Outplacement Consultant: Loreta Zelaya MD Monocytes (Bld) [#/Vol] 0.55 10*3/uL Normal 0.10-1.20 [facility] Comment on above: Performed By: #### C DP #### [facility] [address] [place], [facility]83 Outplacement Consultant: Loreta Zelaya MD Monocytes/100 WBC (Bld) 12 % Normal 3-12 [facility] Comment on above: Performed By: #### C DP #### [facility] [address] [place], [facility]83 Outplacement Consultant: Loreta Zelaya MD Neutrophil (Seg) 50 % Normal 36-65 [facility] Comment on above: Performed By: #### C DP #### [facility] [address] [place], [place] [address] Outplacement Consultant: Loreta Zelaya MD NRBC Automated 0.0 per 100 WBC Normal 0.0 [facility] Comment on above: Performed By: #### C DP #### [facility] [address] [place], [place] [phone] Outplacement Consultant: Loreta Zelaya MD Platelet mean volume (Bld) [Entitic vol] 10.4 fL Normal 8.1-13.5 [facility] Comment on above: Performed By: #### C DP #### [facility] [address] [place], [place] [phone] Outplacement Consultant: Loreta Zelaya MD Platelets (Bld) [#/Vol] 238 10*3/uL Normal 138-453 [facility] Comment on above: Performed By: #### C DP #### [facility] [address] [place], [place] [phone] Outplacement Consultant: Loreta Zelaya MD RBC (Bld) [#/Vol] 3.49 10*6/uL Low 3.95-5.11 [facility] Comment on above: Performed By: #### C DP #### [facility] [address] [place] [address] Outplacement Consultant: Loreta Zelaya MD WBC (Bld) [#/Vol] 4.7 10*3/uL Normal 3.5-11.3 [facility] Comment on above: Performed By: #### C DP #### [facility] [address] [place], [place] [phone] Outplacement Consultant: Loreta Zelaya MD CMPon 10-16-2024 Albumin [Mass/Vol] 3.3 g/dL Low 3.5 - 5.2 g/dL [facility] Albumin/Globulin [Mass ratio] 1.8 {ratio} 1.0 - 2.[address] [facility] ALP [Catalytic activity/Vol] 153 U/L High 35 - 104 U/L [facility] ALT [Catalytic activity/Vol] 49 U/L High 10 - 35 U/L [facility] Anion gap [Moles/Vol] 9 mmol/L 9 - 16 mmol/L [facility] AST [Catalytic activity/Vol] 56 U/L High 10 - 35 U/L [facility] Bilirubin [Mass/Vol] mg/dL 0.00 - 1.20 mg/dL [facility] Calcium [Mass/Vol] 8.4 mg/dL Low 8.6 - 10. 4 mg/dL [facility] Chloride [Moles/Vol] 96 mmol/L Low 98 - 10 7 mmol/L [facility] CO2 [Moles/Vol] 25 mmol/L 20 - 31 mmol/L [facility] Creatinine [Mass/Vol] 0.8 mg/dL 0.50 - 0.90 mg/dL [facility] Est, Glom Filt Rate 85 - PINF [facility] Comment on above: These results are not intended for use in patients <18 years of age. eGFR results are calculated without a race factor using the 2020 CKD-EPI equation. Careful clinical correlation is recommended, particularly when comparing to results calculated using previous equations. The CKD-EPI equation is less accurate in patients with extremes of muscle mass, extra-renal metabolism of creatine, excessive creatine ingestion, or following therapy that affects renal tubular secretion. Glucose [Mass/Vol] 567 mg/dL Critically high 74 - 9 9 mg/dL [facility] Potassium [Moles/Vol] 4.5 mmol/L 3.7 - 5.3 mmol/L [facility] Comment on above: Specimen hemolysis h as exceeded the interference as defined by Kat. Value may be falsely increased. Suggest recollection if clinically indicated. Protein [Mass/Vol] 5.2 g/dL Low 6.6 - 8.7 g/dL [facility] Sodium [Moles/Vol] 130 mmol/L Low 136 - 145 mmol/L [facility] Urea nitrogen [Mass/Vol] 22 mg/dL High 6 - 20 mg/dL [facility] Urea nitrogen/Creatinine [Mass ratio] 28 mg/mg High 9 - [address] [facility] Comp Metabolic Profon 2024 Albumin [Mass/Vol] 3.3 g/dL Low 3.5-5.2 [facility] Comment on above: Performed By: #### I NSU #### [place] [address] [place] [address] Outplacement Consultant: Gee Royal MD [facility] [address] [place] [address] [place] [address] Outplacement Consultant: Loreta Zelaya MD #### CPEP #### [address] [address] Outplacement Consultant: Gee Royal MD Albumin/Glob Ratio 1.8 Normal 1.0-2.5 [facility] Comment on above: Performed By: #### I NSU #### [address] [address] Outplacement Consultant: Gee Royal MD [facility] [address] [place] [address] [place] [address] Outplacement Consultant: Loreta Zelaya MD #### CPEP #### [address] [address] Outplacement Consultant: Gee Royal MD Alkaline Phos 153 U/L High 35-104 [facility] Comment on above: Performed By: #### I NSU #### [facility] [address] [place] [address] Outplacement Consultant: Gee Royal MD [facility] [address] [place] [address] [place] [address] Outplacement Consultant: Loreta Zelaya MD #### CPEP #### [address] [address] Outplacement Consultant: Gee Royal MD ALT [Catalytic activity/Vol] 49 U/L [facility] 10-35 [facility] Comment on above: Performed By: #### I NSU #### [address] [address] Outplacement Consultant: Gee Royal MD [address] [place], [place] [phone] Outplacement Consultant: Loreta Zelaya MD #### CPEP #### [address] [address] Outplacement Consultant: Gee Royal MD Anion gap [Moles/Vol] 9 mmol/L Normal 9-16 [facility] Comment on above: Performed By: #### I NSU #### [address] [address] Outplacement Consultant: Gee Royal MD [address] [place] [phone] Outplacement Consultant: Loreta Zelaya MD #### CPEP #### [address] [address] Outplacement Consultant: Gee Royal MD AST [Catalytic activity/Vol] 56 U/L [facility] 1035 [facility] Comment on above: Performed By: #### I NSU #### [address] [address] Outplacement Consultant: Gee Royal MD [address] [place], [place] [phone] Outplacement Consultant: Loreta Zelaya MD #### CPEP #### [address] [address] Outplacement Consultant: Gee Royal MD Bilirubin [Mass/Vol] mg/dL Normal 0.00-1.20 [facility] Comment on above: Performed By: #### I NSU #### [address] [address] Outplacement Consultant: Gee Royal MD [facility] [address] [place] [address] [place], [place] [phone] Outplacement Consultant: Loreta Zelaya MD #### CPEP #### [address] [address] Outplacement Consultant: Gee Royal MD BUN/CRE Ratio 28 High 9-20 [facility] Comment on above: Performed By: #### I NSU #### [address] [address] Outplacement Consultant: Gee Royal MD [facility] [address] [place] [address] Dr[place], [place] [phone] Outplacement Consultant: Loreta Zelaya MD #### CPEP #### [address] [address] Outplacement Consultant: Gee Royal MD Calcium [Mass/Vol] 8.4 mg/dL Low 8.6-10.4 [facility] Comment on above: Performed By: #### I NSU #### [address] [address] Outplacement Consultant: Gee Royal MD [facility] [address] [place] [address] Dr[place], [place] [phone] Outplacement Consultant: Loreta Zelaya MD #### CPEP #### [address] [address] Outplacement Consultant: Gee Royal MD Chloride [Moles/Vol] 96 mmol/L Low 98-107 [facility] Comment on above: Performed By: #### I NSU #### [address] [address] Outplacement Consultant: Gee Royal MD [facility] [address] [place] [address] [place], [place] 4549083 Outplacement Consultant: Loreta Zelaya MD #### CPEP #### [address] [address] Outplacement Consultant: Gee Royal MD CO2 [Moles/Vol] 25 mmol/L Normal 20-31 [facility] Comment on above: Performed By: #### I NSU #### [address] [address] Outplacement Consultant: Gee Royal MD [facility] [address] [place] [address] [place] [address] Outplacement Consultant: Loreta Zelaya MD #### CPEP #### [address] [address] Outplacement Consultant: Gee Royal MD Creatinine [Mass/Vol] 0.8 mg/dL Normal 0.50-0.90 [facility] Comment on above: Performed By: #### I NSU #### [address] [address] Outplacement Consultant: Gee Royal MD [address] [place] [address] Outplacement Consultant: Loreta Zelaya MD #### CPEP #### [address] [address] Outplacement Consultant: Gee Royal MD GFR/1.73 sq M.predicted among non-blacks MDRD (S/P/Bld) [Vol rate/Area] 85 mL/min/{1.73_m2} Normal >60 [facility] Comment on above: Result Comment: These results are not intended for use in patients <18 years of age. eGFR results are calculated without a race factor using the 2020 CKD-EPI equation. Careful clinical correlation is recommended, particularly when comparing to results calculated using previous equations. The CKD-EPI equation is less accurate in patients with extremes of muscle mass, extra-renal metabolism of creatine, excessive creatine ingestion, or following therapy that affects renal tubular secretion. Performed By: #### I NSU #### [address] [address] Outplacement Consultant: Gee Royal MD [address] [place], [place] 3909483 Outplacement Consultant: Loreta Zelaya MD #### CPEP #### [facility] [address] [place] [address] Outplacement Consultant: Gee Royal MD Glucose [Mass/Vol] 567 mg/dL Critically high 74-99 [facility] Comment on above: Performed By: #### I NSU #### [facility] [address] [place] [address] Outplacement Consultant: Gee Royal MD [address] [place] [address] Outplacement Consultant: Loreta Zelaya MD #### CPEP #### [place] [address] [place] [address] Outplacement Consultant: Gee Royal MD Potassium [Moles/Vol] 4.5 mmol/L Normal 3.7-5.3 [facility] Comment on above: Result Comment: Spec imen hemolysis has exceeded the interference as defined by Kat. Value may be falsely increased. Suggest recollection if clinically indicated. Performed By: #### I NSU #### [facility] [address] [place] [address] Outplacement Consultant: Gee Royal MD [address] [place], [place] [phone] Outplacement Consultant: Loreta Zelaya MD #### CPEP #### [facility] [address] [place] [address] Outplacement Consultant: Gee Royal MD Protein [Mass/Vol] 5.2 g/dL Low 6.6-8.7 [facility] Comment on above: Performed By: #### I NSU #### [facility] [address] [place] [address] Outplacement Consultant: Gee Royal MD [facility] [address] [place], [place] [phone] Outplacement Consultant: Loreta Zelaya MD #### CPEP #### [facility] [address] [place] [address] Outplacement Consultant: Gee Royal MD Sodium [Moles/Vol] 130 mmol/L Low 136-145 [facility] Comment on above: Performed By: #### I NSU #### [facility] [address] [place] [address] Outplacement Consultant: Gee Royal MD [facility] [address] [place] [address] Outplacement Consultant: Loreta Zelaya MD #### CPEP #### [address] [address] Outplacement Consultant: Gee Royal MD Urea nitrogen [Mass/Vol] 22 mg/dL High 6-20 [facility] Comment on above: Performed By: #### I NSU #### [facility] [address] [place] [address] Outplacement Consultant: Gee Royal MD [facility] [address] [place] [address] [place], [place] 6444883 Outplacement Consultant: Loreta Zelaya MD #### CPEP #### [address] [address] Outplacement Consultant: Gee Royal MD Glucose, Whole Bloodon 10-16 Glucose [Mass/Vol] 564 mg/dL Critically high 74 - 1 00 mg/dL [facility] Interpretation and review of laboratory results Abnormal [facility] Glucose [Mass/Vol] 564 mg/dL Critically high 74-100 [facility] Magnesiumon 10-16-2024 Magnesium [Mass/Vol] 2 mg/dL 1.6 - 2 .6 mg/dL [facility] Magnesium [Mass/Vol] 2.0 mg/dL Normal 1.6-2.6 [facility] Comment on above: Performed By: #### C DP #### [facility] [address] [place] [address] Outplacement Consultant: Loreta Zelaya MD No Panel Informationon 10-16 Interpretation and review of laboratory results Abnormal [facility] Troponinon 10-16-2024 Troponin I.cardiac High sensitivity method [Mass/Vol] ng/L 0 - 14 ng/L [facility] Comment on above: High Sensitivity Tro ponin values cannot be compared with other Troponin methodologies. Troponin, High Sens <6 Normal 0-14 [facility] Comment on above: Result Comment: High Sensitivity Troponin values cannot be compared with other Troponin methodologies. Performed By: #### I NSU #### [facility] [address] [place] [address] Outplacement Consultant: Gee Royal MD [facility] [address] [place] [id number] Outplacement Consultant: Loreta Zelaya MD #### CPEP #### [facility] [address] [place] [address] Outplacement Consultant: Gee Royal MD BASIC METABOLIC PANLon 10-12 Anion gap [Moles/Vol] 18 mmol/L High 5-15 [facility] Comment on above: Performed By: #### B PHILLIP, 6-3, 3023-7 #### [facility] ([id number]) [address] [place] [address] Calcium [Mass/Vol] 9.0 mg/dL Normal 8.5-10.5 [facility] Comment on above: Performed By: #### B PHILLIP, 6-3, 4-7 #### [facility] ([id number]) [address] [place] [address] Chloride [Moles/Vol] 101 mmol/L Normal 98-109 [facility] Comment on above: Performed By: #### B PHILLIP, 3015-3, 7 #### [facility] ([id number]) [address] [address] [place] [address] CO2 [Moles/Vol] 15 mmol/L Low 22-32 [facility] Comment on above: Performed By: #### Deric FISHER, 3015-3, 3023-7 #### [facility] ([id number]) [address] [facility] [address] [place] [address] Creatinine [Mass/Vol] 0.52 mg/dL Normal 0.40-1.00 [facility] Comment on above: Result Comment: METH OD TRACEABLE TO IDMS STANDARD Performed By: #### Deric FISHER, 3015-3, 7 #### [facility] ([id number]) [address] [facility] [address] [place] [address] eGFR (CKD-EPI) NON-RACE DEPENDENT >90 Normal >59 [facility] Comment on above: Result Comment: Reported eGFR is based on the CKD-EPI 2020 equation that does not use a race coefficient. Performed By: #### Deric FISHER, 3015-3, 3024-01 #### [facility] ([id number]) [address], [address] [place] [address] Glucose [Mass/Vol] 321 mg/dL High 65-99 [facility] Comment on above: Performed By: #### Deric FISHER, 3015-3, 3024-01 #### [facility] ([id number]) [address] [address] [place] [address] Potassium [Moles/Vol] 4.3 mmol/L Normal 3.5-5.0 [facility] Comment on above: Performed By: #### Deric FISHER, 3015-3, 3023-7 #### [facility] ([id number]) [address], [address] [place] [address] Sodium [Moles/Vol] 134 mmol/L Normal 134-146 [facility] Comment on above: Performed By: #### B PHILLIP, 3016-3, 3024-7 #### [facility] ([id number]) [address], [address] [place] [address] Urea nitrogen [Mass/Vol] 15 mg/dL Normal 5-23 [facility] Comment on above: Performed By: #### B PHILLIP, 3016-3, 3023-7 #### [facility] ([id number]) [address], [address] [place] [address] Basic Metabolic Panelon 10-03 Anion gap [Moles/Vol] 18 mmol/L High 5 - 15 mmol/L [facility] Calcium [Mass/Vol] 9.0 mg/dL 8.5 - 10. 5 mg/dL [facility] Chloride [Moles/Vol] 101 mmol/L 98 - 10 9 mmol/L [facility] CO2 [Moles/Vol] 15 mmol/L Low 22 - 32 mmol/L [facility] Creatinine [Mass/Vol] 0.52 mg/dL 0.40 - 1.00 mg/dL [facility] Comment on above: METHOD TRACEABLE TO IDGA STANDARD eGFR (CKD-EPI)non-race dependent - PINF [facility] Comment on above: Reported eGFR is based on the CKD-EPI 2020 equation that does not use a race coefficient. Glucose [Mass/Vol] 321 mg/dL High 65 - 99 mg/dL [facility] Interpretation and review of laboratory results Abnormal [facility] Potassium [Moles/Vol] 4.3 mmol/L 3.5 - 5.0 mmol/L [facility] Sodium [Moles/Vol] 134 mmol/L 134 - 146 mmol/L [facility] Urea nitrogen [Mass/Vol] 15 mg/dL 5 - 23 mg/dL [facility] FREE T4on 10-13-2023 Free T4 [Mass/Vol] 0.56 ng/dL Low 0.61-1.60 [facility] Comment on above: Performed By: #### B PHILLIP, 3016-3, 3024-7 #### [facility] ([id number]) [address] [facility], [address] [address] Free T4 [Mass/Vol]on 024 Interpretation and review of laboratory results Abnormal [facility] T4, freeon 10-13-2023 Free T4 [Mass/Vol] 0.56 ng/dL Low 0.61 - 1. 60 ng/dL [facility] TSHon 10-13-2023 TSH Qn 9.36 m[IU]/L High [facility] TSH Qnon 10-13-2023 Interpretation and review of laboratory results Abnormal [facility] TSH 9.36 uIU/mL High 0.49-4.67 [facility] Comment on above: Performed By: #### B PHILLIP, 3016-3, 3024-7 #### [facility] ([id number]) [address] [place] [address], [address] [address] C peptide [Mass/Vol]on 09-01 C PEPTIDE 1.10 ng/mL Normal 0.81-3.85 [facility] Comment on above: Result Comment: NOTE Test Performed By: [facility] [address] [place] [address] Director Business Systems: Judson Reese III, M.D. [facility] #[id number] MICROALBUMIN - ALBUMIN:CREAT ININE URINE RATIOon 09-01-2023 ALB/CREAT RATIO NOT CALCULATED Normal 0.0-30.0 [facility] Comment on above: Result Comment: Result for Albumin/Creatinine Ratio cannot be reliably calculated because urine albumin and or urine creatinine is below the detection limit of the assay. Performed By: #### M ALBU #### [facility] ([id number]) [address] [place] [address], [address] [place] [address] Albumin DL <= 20 mg/L (U) [Mass/Vol] mg/dL Normal 0.0-1.9 [facility] Comment on above: Performed By: #### M ALBU #### [facility] ([id number]) [address], [address] [place] [address] URINE CREAT 12.23 mg/dL Normal [facility] Comment on above: Performed By: #### M ALBU #### [facility] ([id number]) [address], [address] [place] [address] Microalbumin - Albumin: Crea tinine Urine Ratioon 09-01-2023 Albumin/Creatinine DL <= 1.0 mg/L (U) [Ratio] NOT CALCULATED [facility] Comment on above: Result for Albumin/Creatinine Ratio cannot be reliably calculated because urine albumin and or urine creatinine is below the detection limit of the assay. Creatinine (U) [Mass/Vol] 12.23 mg/dL [facility] COMPREHENSIVE METABOLIC PANE [place] 08-27-2023 Albumin [Mass/Vol] 3.9 g/dL Normal 3.2-5.3 [facility] Comment on above: Performed By: #### C MP, THYR, HA1C, 62963-8 #### [facility] ([id number]) [address], [address] [place] [address] ALP [Catalytic activity/Vol] 73 U/L Normal 39-130 [facility] Comment on above: Performed By: #### C MP, THYR, HA1C, 01172-4 #### [facility] ([id number]) [address], [address] [place] [address] ALT [Catalytic activity/Vol] 7 U/L Normal 0-31 [facility] Comment on above: Performed By: #### C MP, THYR, HA1C, 96598-7 #### [facility] ([id number]) [address], [address] [place] [address] Anion gap [Moles/Vol] 9 mmol/L Normal 5-15 [facility] Comment on above: Performed By: #### C MP, THYR, HA1C, 74694-8 #### [facility] ([id number]) [address], [address] [place] [address] AST [Catalytic activity/Vol] 9 U/L Normal 0-41 [facility] Comment on above: Performed By: #### C MP, THYR, HA1C, 26348-6 #### [facility] ([id number]) [address], [address] [place] [address] Bilirubin [Mass/Vol] 0.5 mg/dL Normal 0.3-1.2 [facility] Comment on above: Performed By: #### C PHILLIP, THYR, HA1C, 03423-6 #### [facility] ([id number]) [address], [address] [place] [address] Calcium [Mass/Vol] 8.7 mg/dL Normal 8.5-10.5 [facility] Comment on above: Performed By: #### C MP, THYR, HA1C, 71726-7 #### [facility] ([id number]) [address], [address] [place] [address] Chloride [Moles/Vol] 99 mmol/L Normal 98-109 [facility] Comment on above: Performed By: #### C PHILLIP, THYR, HA1C, 38040-9 #### [facility] ([id number]) [address], [address] [place] [address] CO2 [Moles/Vol] 24 mmol/L Normal 22-32 [facility] Comment on above: Performed By: #### C MP, THYR, HA1C, 37209-6 #### [facility] ([id number]) [address], [address] [place] [address] Creatinine [Mass/Vol] 0.53 mg/dL Normal 0.40-1.00 [facility] Comment on above: Result Comment: METH OD TRACEABLE TO IDMS STANDARD Performed By: #### C MP, THYR, HA1C, 91251-2 #### [facility] ([id number]) [address], [address] [place] [address] eGFR (CKD-EPI) NON-RACE DEPENDENT >90 Normal >59 [facility] Comment on above: Result Comment: Reported eGFR is based on the CKD-EPI 2020 equation that does not use a race coefficient. Performed By: #### C PHILLIP THYRodney, HAJoe, 72610-1 #### [facility] ([id number]) [address], [address] [place] [address] Glucose [Mass/Vol] 474 mg/dL Critically high 65-99 [facility] Comment on above: Performed By: #### C FRANK FISHER, HAJoe, 33699-6 #### [facility] ([id number]) [address], [address] [place] [address] Potassium [Moles/Vol] 3.9 mmol/L Normal 3.5-5.0 [facility] Comment on above: Performed By: #### C FRANK FISHER, HA1C, 20596-2 #### [facility] ([id number]) [address], [address] [place] [address] Protein [Mass/Vol] 6.5 g/dL Normal 6.0-8.0 [facility] Comment on above: Performed By: #### C PHILLIP THYR, HA1C, 88832-4 #### [facility] ([id number]) [address], [address] [place] [address] Sodium [Moles/Vol] 132 mmol/L Low 134-146 [facility] Comment on above: Performed By: #### C PHILLIP THYR, HA1C, 41345-6 #### [facility] ([id number]) [address], [address] [place] [address] Urea nitrogen [Mass/Vol] 7 mg/dL Normal 5-23 [facility] Comment on above: Performed By: #### C MP, THYR, HA1C, 63855-1 #### [facility] ([id number]) [address], [address] [place] [address] Comprehensive metabolic pane [facility] 08-27-2023 Albumin [Mass/Vol] 3.9 g/dL 3.2 - 5.3 g/dL [facility] ALP [Catalytic activity/Vol] 73 U/L 39 - 130 U/L [facility] ALT No additional P-5'-P [Catalytic activity/Vol] 7 U/L 0 - 31 U/L [facility] Anion gap [Moles/Vol] 9 mmol/L 5 - 15 mmol/L [facility] AST [Catalytic activity/Vol] 9 U/L 0 - 41 U/L [facility] Bilirubin [Mass/Vol] 0.5 mg/dL 0.3 - 1 .2 mg/dL [facility] Calcium [Mass/Vol] 8.7 mg/dL 8.5 - 10. 5 mg/dL [facility] Chloride [Moles/Vol] 99 mmol/L 98 - 10 9 mmol/L [facility] CO2 [Moles/Vol] 24 mmol/L 22 - 32 mmol/L [facility] Creatinine [Mass/Vol] 0.53 mg/dL 0.40 - 1.00 mg/dL [facility] Comment on above: METHOD TRACEABLE TO IDGA STANDARD eGFR (CKD-EPI)non-race dependent - PINF [facility] Comment on above: Reported eGFR is based on the CKD-EPI 2020 equation that does not use a race coefficient. Glucose [Mass/Vol] 474 mg/dL Critically high 65 - 9 9 mg/dL [facility] Interpretation and review of laboratory results Abnormal [facility] Potassium [Moles/Vol] 3.9 mmol/L 3.5 - 5.0 mmol/L [facility] Protein [Mass/Vol] 6.5 g/dL 6.0 - 8.0 g/dL [facility] Sodium [Moles/Vol] 132 mmol/L Low 134 - 146 mmol/L [facility] Urea nitrogen [Mass/Vol] 7 mg/dL 5 - 23 mg/dL [facility] HGB A1C (GLYCO-HGB)on 2023 Glucose [Mass/Vol] 349 mg/dL Normal [facility] Comment on above: Performed By: #### C FR[place], 196[address]-3 #### [facility] ([id number]) [address], [address] [place] [address] HbA1c (Bld) [Mass fraction] 13.8 % High 4.4-5.6 [facility] Comment on above: Result Comment: NOTE ADA Guidelines Result HgbA1c Normal : less than 5.7 % Prediabetes : 5.7 % to 6.4 % Diabetes : > 6.4 % Use with caution in patients with abnormal hemoglobin variants as the half-life of red blood cells and in vivo glycation rates are affected. Performed By: #### C FRANK FISHER, PHILLIP, 50641-3 #### [facility] ([id number]) [address], [address] [place] [address] Hemoglobin A1con 08-27-2023 Average glucose Estimated from glycated hemoglobin (Bld) [Mass/Vol] 349 mg/dL [facility] HbA1c (Bld) [Mass fraction] 13.8 % High 4.4 - 5.6 % [facility] Comment on above: NOTE ADA Guidelines Result HgbA1c Normal : less than 5.7 % Prediabetes : 5.7 % to 6.4 % Diabetes : > 6.4 % Use with caution in patients with abnormal hemoglobin variants as the half-life of red blood cells and in vivo glycation rates are affected. Interpretation and review of laboratory results Abnormal [facility] Lipid 1996 panelon Cholesterol [Mass/Vol] 104 mg/dL Low 150 - 200 mg/dL [facility] Cholesterol in HDL [Mass/Vol] 43 mg/dL 39 - PINF mg/dL [facility] Comment on above: HDL <40 mg/dL - High Risk HDL > or = 40mg/dL- Desirable HDL >60 mg/dL - Negative Risk Cholesterol in LDL [Mass/Vol] 28 mg/dL NINF - 130 mg/dL [facility] Comment on above: LDL <100 mg/dL - Desirable LDL >160 mg/dL - High Risk Cholesterol in VLDL [Mass/Vol] 33 mg/dL High 0 - 30 mg/dL [facility] Cholesterol.total/Amy sterol in HDL [Mass ratio] 2.4 {ratio} 1.0 - 5.0 [facility] Triglyceride [Mass/Vol] 165 mg/dL High 27 - 150 mg/dL [facility] Cholesterol [Mass/Vol] 104 mg/dL Low 150-200 [facility] Comment on above: Performed By: #### FRANK Daniels MP, GENTRY, 51686-9 #### [facility] ([id number]) [address], [address] [place] [address] Cholesterol in HDL [Mass/Vol] 43 mg/dL Normal >39 [facility] Comment on above: Result Comment: HDL <40 mg/dL - High Risk HDL > or = 40mg/dL- Desirable HDL >60 mg/dL - Negative Risk Performed By: #### Frances FISHER, FRANK, PHILLIP, 81909-1 #### [facility] ([id number]) [address], [address] [place] [address] Cholesterol in LDL [Mass/Vol] 28 mg/dL Normal <130 [facility] Comment on above: Result Comment: LDL <100 mg/dL - Desirable LDL >160 mg/dL - High Risk Performed By: #### C MP, THYR, HA1C, 67908-4 #### [facility] ([id number]) [address], [address] [address] Cholesterol in VLDL [Mass/Vol] 33 mg/dL High 0-30 [facility] Comment on above: Performed By: #### C MP, THYR, HA1C, 12344-0 #### [facility] ([id number]) [address] [place] [address] CHOLESTEROL:HDL 2.4 Normal 1.0-5.0 [facility] Comment on above: Performed By: #### C MP, THYR, HA1C, 13009-4 #### [facility] ([id number]) [address], [address] [place] [address] Triglyceride [Mass/Vol] 165 mg/dL High 27-150 P [facility] Comment on above: Performed By: #### C MP, THYR, HA1C, 74628-1 #### [facility] ([id number]) [address], [address] [place] [address] No Panel Informationon 08-27 Interpretation and review of laboratory results Abnormal [facility] THYROID PROFILEon 08-27-2023 Free T4 [Mass/Vol] 0.50 ng/dL Low 0.61-1.60 [facility] Comment on above: Performed By: #### C MP, THYR, HA1C, 77160-5 #### [facility] ([id number]) [address] [place] [address] TSH 8.94 uIU/mL High 0.49-4.67 [facility] Comment on above: Performed By: #### C MP, THYR, HA1C, 69029-6 #### [facility] ([id number]) [address], [address] [place] [address] Thyroid profile includes TSH FT4on 08-27-2023 Free T4 [Mass/Vol] 0.50 ng/dL Low 0.61 - 1. 60 ng/dL [facility] TSH Qn 8.94 m[IU]/L High [facility] CBC AUTO DIFFon 10-19-2022 BASO # 0.1 103/ul Normal 0.0-0.1 [facility] Comment on above: Performed By: #### C BC #### [facility] [address] [place] [address] Dr. Alejandra Trotter Basophils/100 WBC (Bld) 0.9 % Normal 0.2-2.0 [facility] Comment on above: Performed By: #### C BC #### [facility] [address] [place] [address] Dr. Alejandra Trotter EO # 0.2 103/ul Normal 0.0-0.7 [facility] Comment on above: Performed By: #### C BC #### [facility] [address] [place] [address] Dr. Alejandra Trotter Eosinophils/100 WBC (Bld) 3.4 % Normal 0.9-7.0 [facility] Comment on above: Performed By: #### C BC #### [facility] [address] [place] [address] Dr. Alejandra Trotter Erythrocyte distribution width (RBC) [Ratio] 12.5 % Normal 11.0-15.0 [facility] Comment on above: Performed By: #### C BC #### [facility] [address] [place] [address] Dr. Alejandra Trotter Hematocrit (Bld) [Volume fraction] 45.3 % Normal 36.0-48.0 [facility] Comment on above: Performed By: #### C BC #### [facility] [address] [place] [address] Dr. Alejandra Trotter Hemoglobin (Bld) [Mass/Vol] 15.0 g/dL Normal 12.0-16.0 [facility] Comment on above: Performed By: #### C BC #### [facility] [address] [place] [address] Dr. Alejandra Trotter IG # 0.02 10e3/ul Normal 0.00-0.03 [facility] Comment on above: Performed By: #### C BC #### [facility] [address] [place] [address] Dr. Alejandra Trotter IG % 0.3 % Normal 0.0-0.5 [facility] Comment on above: Performed By: #### C BC #### [facility] [address] [place] [address] Dr. Alejandra Trotter LYMPH # 2.4 103/ul Normal 1.2-3.8 [facility] Comment on above: Performed By: #### C BC #### [facility] [address] [place] [address] Dr. Alejandra Trotter Lymphocytes/100 WBC (Bld) 41.2 % Normal 20.5-60.0 [facility] Comment on above: Performed By: #### C BC #### [facility] [address] [place] [address] Dr. Alejandra Trotter MANUAL DIFF REQ NO Normal [facility] Comment on above: Performed By: #### C BC #### [facility] [address] [place] [address] Dr. Alejandra Trotter MCH (RBC) [Entitic mass] 29.1 pg Normal 26.7-34.0 [facility] Comment on above: Performed By: #### C BC #### [facility] [address] [place] [address] Dr. Alejandra Trotter MCHC (RBC) [Mass/Vol] 33.1 g/dL Normal 29.9-35.2 [facility] Comment on above: Performed By: #### C BC #### [facility] [address] [place] [address] Dr. Alejandra Trotter MCV (RBC) [Entitic vol] 87.8 fL Normal 81.0-99.0 [facility] Comment on above: Performed By: #### C BC #### [facility] [address] [place] [address] Dr. Alejandra Trotter MONO # 0.4 103/ul Normal 0.3-0.8 [facility] Comment on above: Performed By: #### C BC #### [facility] [address] [place] [address] Dr. Alejandra Trotter Monocytes/100 WBC (Bld) 6.7 % Normal 1.7-12.0 [facility] Comment on above: Performed By: #### C BC #### [facility] [address] [place] [address] Dr. Alejandra Trotter NEUT # 2.8 103/ul Normal 1.4-6.5 [facility] Comment on above: Performed By: #### C BC #### [facility] [address] [place] [address] Dr. Alejandra Trotter Neutrophils/100 WBC (Bld) 47.5 % Normal 43.0-75.0 [facility] Comment on above: Performed By: #### C BC #### [facility] [address] [place] [address] Dr. Alejandra Trotter Platelet mean volume (Bld) [Entitic vol] 10.7 fL Normal 9.5-13.5 [facility] Comment on above: Performed By: #### C BC #### [facility] [address] [place] [address] Dr. Alejandra Trotter PLT 282 103/ul Normal 150-450 [facility] Comment on above: Performed By: #### C BC #### [facility] [address] [place] [address] Dr. Alejandra Trotter RBC 5.16 106/ul Normal 4.20-5.40 [facility] Comment on above: Performed By: #### C BC #### [facility] [address] [place] [address] Dr. Alejandra Trotter WBC 5.8 103/ul Normal 4.0-11.0 [facility] Comment on above: Performed By: #### C BC #### [facility] [address] [place] [address] Dr. Alejandra Trotter D-DIMERon 10-19-2022 D-DIMER 0.58 mg/L FEU Normal <=0.59 [facility] Comment on above: Performed By: #### D DIM #### [facility] [address] [place] [address] Dr. Alejandra Trotter D-DIMER COMMENTS SEE BELOW Normal [facility] Comment on above: Result Comment: Incr eases [...] hospitalization. Performed By: #### D DIM #### [facility] [address] [place] [address] Dr. Alejandra Trotter ER URINE PROFILEon 3 Bilirubin Ql (U) Negative Normal NEGATIVE [facility] Comment on above: Performed By: #### E RUR #### [facility] [address] [place] [address] Dr. Alejandra Trotter Clarity (U) CLEAR Normal CLEAR [facility] Comment on above: Performed By: #### E RUR #### [facility] [address] [place] [address] Dr. Alejandra Trotter Color (U) LT. YELLOW Normal YELLOW [facility] Comment on above: Performed By: #### E RUR #### [facility] [address] [place] [address] Dr. Alejandra MARK A micrscopic examination will be performed if indicated. Normal [facility] Comment on above: Performed By: #### E RUR #### [facility] [address] [place] [address] Dr. Alejandra Trotter Glucose Ql (U) >1000 Abnormal NEGATIVE [facility] Comment on above: Performed By: #### E RUR #### [facility] [address] [place] [address] Dr. Alejandra Trotter Hemoglobin Ql (U) TRACE-LYSED Abnormal NEGATIVE [facility] Comment on above: Performed By: #### E RUR #### [facility] [address] [place] [address] Dr. Alejandra Trotter Ketones Ql (U) >=80 Abnormal NEGATIVE [facility] Comment on above: Performed By: #### E RUR #### [facility] [address] [place] [address] Dr. Alejandra Trotter LEUKOCYTES Negative Normal NEGATIVE [facility] Comment on above: Performed By: #### E RUR #### [facility] [address] [place] [address] Dr. Alejandra Trotter Nitrite Ql (U) Negative Normal NEGATIVE [facility] Comment on above: Performed By: #### E RUR #### [facility] [address] [place] [address] Dr. Alejandra Trotter pH (U) 5.0 [pH] Normal 5-9 [facility] Comment on above: Performed By: #### E RUR #### [facility] [address] [place] [address] Dr. Alejandra Trotter SPEC GRAVITY 1.020 Normal 1.005-<=1.02 5 [facility] Comment on above: Performed By: #### E RUR #### [facility] [address] [place] [address] Dr. Alejandra Trotter UA PROTEIN Negative Normal NEGATIVE/ TRACE [facility] Comment on above: Performed By: #### E RUR #### [facility] [address] [place] [address] Dr. Alejandra Trotter UR MICRO IND NOT INDICATED Normal [facility] Comment on above: Performed By: #### E RUR #### [facility] [address] [place] [address] Dr. Alejandra Trotter Urobilinogen Qn (U) 0.2 {Rui'U}/dL Normal 0.2 - 1. 0 [facility] Comment on above: Performed By: #### E RUR #### [facility] [address] [place] [address] Dr. Alejandra Trotter LACTATE/LACTIC ACIDon 2022 Lactate [Moles/Vol] 1.1 mmol/L Normal 0.4-2.0 [facility] Comment on above: Performed By: #### L ACT #### [facility] [address] [place] [address] Dr. Alejandra Trotter POINT OF CARE GLUCOSEon 10-03 Glucose [Mass/Vol] 322 mg/dL Critically high 74-106 [facility] Comment on above: Performed By: #### P OCGLUC #### [facility] [address] [place] [address] Dr. Alejandra Trotter PROF 14(COMP METB)on 023 Albumin [Mass/Vol] 3.6 g/dL Normal 3.4-5.0 [facility] Comment on above: Performed By: #### H STROPN, CMP #### [facility] [address] [place] [address] Dr. Alejandra Trotter Albumin/Globulin [Mass ratio] 0.9 {ratio} Normal [facility] Comment on above: Performed By: #### H STROPN, CMP #### [facility] [address] [place] [address] Dr. Alejandra Trotter ALP [Catalytic activity/Vol] 107 U/L Normal 46-116 [facility] Comment on above: Performed By: #### H STROPN, CMP #### [facility] [address] [place] [address] Dr. Alejandra Trotter ALT [Catalytic activity/Vol] 14 U/L Normal 14-59 [facility] Comment on above: Performed By: #### H STROPN, CMP #### [facility] [address] [place] [address] Dr. Alejandra Trotter Anion gap [Moles/Vol] 20.6 mmol/L Normal [facility] Comment on above: Performed By: #### H STROPN, CMP #### [facility] [address] [address] [address] Alejandra Trotter AST [Catalytic activity/Vol] 11 U/L Critically low 15-37 [facility] Comment on above: Performed By: #### H STROPN, CMP #### [facility] [address] [address] [address] Alejandra Trotter Bilirubin [Mass/Vol] 0.4 mg/dL Normal 0.2-1.0 [facility] Comment on above: Performed By: #### H STROPN, CMP #### [facility] [address] [address] [address] Alejandra Trotter Calcium [Mass/Vol] 9.0 mg/dL Normal 8.5-10.1 [facility] Comment on above: Performed By: #### H STROPN, CMP #### [facility] [address] [address] [address] Alejandra Trotter Chloride [Moles/Vol] 97 mmol/L Critically low 98-107 [facility] Comment on above: Performed By: #### H STROPN, CMP #### [facility] [address] [address] [address] Alejandra Trotter CO2 [Moles/Vol] 19.7 mmol/L Critically low 21.0-32.0 [facility] Comment on above: Performed By: #### H STROPN, CMP #### [facility] [address] [address] [address] Alejandra Trotter Creatinine [Mass/Vol] 0.83 mg/dL Normal 0.55-1.02 [facility] Comment on above: Performed By: #### H STROPN, CMP #### [facility] [address] [address] [address] Alejandra Trotter EGFR-AF ANGUILLAN >60 Normal >=60 [facility] Comment on above: Performed By: #### H STROPN, CMP #### [facility] [address] [address] [address] Alejandra Trotter EGFR-NON AF ANGUILLAN >60 Normal >=60 [facility] Comment on above: Performed By: #### H STROPN, CMP #### [facility] [address] [address] [address] Alejandra Trotter Globulin (S) [Mass/Vol] 4.2 g/dL Normal [facility] Comment on above: Performed By: #### H STROPN, CMP #### [facility] [address] [address] [address] Alejandra Trotter Glucose [Mass/Vol] 389 mg/dL Critically high 74-106 [facility] Comment on above: Performed By: #### H STROPN, CMP #### [facility] [address] [address] [address] Alejandra Trotter Potassium [Moles/Vol] 4.3 mmol/L Normal 3.5-5.1 [facility] Comment on above: Performed By: #### H STROPN, CMP #### [facility] [address] [address] [address] Alejandra Trotter Protein [Mass/Vol] 7.8 g/dL Normal 6.4-8.2 [facility] Comment on above: Performed By: #### H STROPN, CMP #### [facility] [address] [address] [address] Alejandra Trotter Sodium [Moles/Vol] 133 mmol/L Critically low 136-145 [facility] Comment on above: Performed By: #### H STROPN, CMP #### [facility] [address] [address] [address] Alejandra Trotter Urea nitrogen [Mass/Vol] 5.0 mg/dL Critically low 7.0-18.0 [facility] Comment on above: Performed By: #### H STROPN, CMP #### [facility] [address] [address] [address] Alejandra Trotter Urea nitrogen/Creatinine [Mass ratio] 6.0 mg/mg Normal [facility] Comment on above: Performed By: #### H STROPN, CMP #### [facility] [address] [address] [address] Alejandra Trotter SYMPTOMATIC COVID-19 ANTIGEN on 10-19-2022 EUA Statement SEE BELOW Normal [facility] Comment on above: Result Comment: This [...] sooner. Performed By: #### C VDAGS #### [facility] [address] [place] [address] Dr. Alejandra Trotter SARS-CoV-2 (COVID-19) RNA NEENA+probe Ql (Unsp spec) Negative Normal NEGATIVE [facility] Comment on above: Performed By: #### C VDAGS #### [facility] [address] [place], [place] [address] Dr. Alejanrda Trotter TROPONIN, HIGH SENSITIVITYon 10-19-2022 HSTROP 4.6 pg/mL Normal 4.0-51.3 [facility] Comment on above: Result Comment: CUT- OFF POINTS HAVE BEEN ESTABLISHED BASED ON THE FOURTH UNIVERSAL DEFINITIONS OF MYOCARDIAL INFARCTION. THE UPPER REFERENCE LIMIT (URL) OF TROPONIN, DEFINED THE 99TH PERCENTILE OF cTnI DISTRIBUTION IN A REFERENCE POPULATION, HAS BEEN CONFIRMED THE DECISION THRESHOLD FOR SC DIAGNOSIS. Performed By: #### H STROPN, CMP #### [facility] [address] [address] [address] Alejandra Trotter XR CHEST 2 Von [...] LORETA MACKENZIE Date: 2022-10-19 21:48 Normal [facility] COVID Quick Testingon 2020 Result Negative [employer] Other Vital Signs Date Time Vital Sign Value Performing Clinician Facility 01-30-2025 13:32-0400 Body height 172.7 cm Carmen Keen MD Work Phone: [facility] 01-30-2025 13:32-0400 Body mass index (BMI) [Ratio] 26.33 kg/m2 Carmen Keen MD Work Phone: [facility] 01-30-2025 13:32-0400 Body weight 78.56 kg Carmen Keen MD Work Phone: [facility] 01-30-2025 13:32-0400 Diastolic blood pressure 54 mm[Hg] Carmen Keen MD Work Phone: [facility] 01-30-2025 13:32-0400 Systolic blood pressure 98 mm[Hg] Carmen Keen MD Work Phone: [facility] 01-11-2025 13:18-0400 Body height 175.3 cm Stanton Raedy DO Work Phone: [employer] [facility] 01-11-2025 13:18-0400 Body mass index (BMI) [Ratio] 24.32 kg/m2 Stanton Raedy DO Work Phone: [employer] [facility] 01-11-2025 13:18-0400 Body weight 74.71 kg Stanton Raedy DO [facility] 01-11-2025 13:18-0400 Diastolic blood pressure 80 mm[Hg] Stanton Raedy DO Work Phone: [facility] 01-11-2025 13:18-0400 Heart rate 89 /min Stanton Raedy DO Work Phone: [facility] 01-11-2025 13:18-0400 SaO2% (BldA) [Mass fraction] 97 % Stanton Johnsony DO Work Phone: [facility] 01-11-2025 13:18-0400 Systolic blood pressure 120 mm[Hg] Stanton Marieeedy DO Work Phone: [facility] 12-21-2024 06:47-0400 Body temperature 97.7 [degF] Rikki Oscar MD Work Phone: [facility] [employer] 12-21-2024 06:47-0400 Diastolic blood pressure 66 mm[Hg] Rikki Oscar MD Work Phone: [facility] 12-21-2024 06:47-0400 Heart rate 77 /min Rikki Oscar MD Work Phone: [facility] 12-21-2024 06:47-0400 Respiratory rate 16 /min Rikki Oscar MD Work Phone: [facility] 12-21-2024 06:47-0400 SaO2% (BldA) [Mass fraction] 96 % Rikki Oscar MD Work Phone: [facility] 12-21-2024 06:47-0400 Systolic blood pressure 118 mm[Hg] Rikki Oscar MD Work Phone: [facility] 12-21-2024 06:23-0400 Body height 172.7 cm Rikki Oscar MD Work Phone: [facility] [employer] 12-21-2024 05:45-0400 Body mass index (BMI) [Ratio] 23.72 kg/m2 Rikki Oscar MD Work Phone: [facility] [employer] 12-21-2024 05:45-0400 Body weight 70.76 kg Rikki Oscar MD Work Phone: [facility] [employer] 12-20-2024 19:51-0400 Body temperature 37 Rikki Oscar MD Work Phone: [facility] 12-06-2024 12:54-0400 Body height 172.7 cm [facility] [employer] [facility] 12-06-2024 12:54-0400 Body mass index (BMI) [Ratio] 23.05 kg/m2 [facility] [employer] [facility] 12-06-2024 12:54-0400 Body weight 68.77 kg [facility] [employer] [facility] 12-06-2024 12:54-0400 Diastolic blood pressure 84 mm[Hg] [facility] [employer] [facility] 12-06-2024 12:54-0400 Systolic blood pressure 120 mm[Hg] [facility] 10-18-2024 09:23-0400 Diastolic blood pressure 61 mm[Hg] Flory Toure DO Work Phone: [facility] 10-18-2024 09:23-0400 Systolic blood pressure 94 mm[Hg] Flory Toure DO Work Phone: [facility] 10-18-2024 07:48-0400 Body temperature 98.6 [degF] Flory Toure DO Work Phone: [facility] 10-18-2024 07:48-0400 Heart rate 75 /min Flory Toure DO Work Phone: [facility] 10-18-2024 07:48-0400 Respiratory rate 20 /min Flory Toure DO Work Phone: [facility] 10-18-2024 07:48-0400 SaO2% (BldA) [Mass fraction] 97 % Flory Toure DO Work Phone: [facility] 10-18-2024 04:30-0400 Body mass index (BMI) [Ratio] 20.98 kg/m2 Flory Toure DO Work Phone: [facility] 10-18-2024 04:30-0400 Body weight 62.6 kg Flory Toure DO Work Phone: [facility] 10-16-2024 22:51-0400 Body height 172.7 cm Flory Toure DO Work Phone: [facility] 10-13-2023 09:29-0400 Body height 170.2 cm Gomez Green APRN-SUPPLY ROOM CLERK [facility] 10-13-2023 09:29-0400 Body mass index (BMI) [Ratio] 21.68 kg/m2 Gomez Green PROJECT CONTROLS SCHEDULER-SUPPLY ROOM CLERK Work Phone: [facility] 10-13-2023 09:29-0400 Body temperature 98.2 [degF] Gomez Green APRN-SUPPLY ROOM CLERK Work Phone: [facility] [employer] 10-13-2023 09:29-0400 Body weight 62.78 kg Gomez Green APRN-SUPPLY ROOM CLERK Work Phone: [facility] 10-13-2023 09:29-0400 Diastolic blood pressure 60 mm[Hg] Gomez Green APRN-SUPPLY ROOM CLERK Work Phone: [facility] 10-13-2023 09:29-0400 Heart rate 110 /min Gomez Green APRN-SUPPLY ROOM CLERK Work Phone: [facility] 10-13-2023 09:29-0400 SaO2% (BldA) [Mass fraction] 97 % Gomez Green APRN-SUPPLY ROOM CLERK Work Phone: [facility] 10-13-2023 09:29-0400 Systolic blood pressure 100 mm[Hg] Gomez Green APRN-SUPPLY ROOM CLERK Work Phone: [facility] 09-01-2023 08:22-0500 Body height 172.7 cm Gomez Green APRN-SUPPLY ROOM CLERK Work [facility] 09-01-2023 08:22-0500 Body mass index (BMI) [Ratio] 23.11 kg/m2 Gomez Green PROJECT CONTROLS SCHEDULER-SUPPLY ROOM CLERK Work Phone: [facility] [employer] 09-01-2023 08:22-0500 Body temperature 97.5 [degF] Gomez Green APRN-LYNNETTE Work Phone: [facility] [employer] 09-01-2023 08:22-0500 Body weight 68.95 kg Gomez Green PROJECT CONTROLS SCHEDULER-SUPPLY ROOM CLERK Work Phone: [facility] [employer] 09-01-2023 08:22-0500 Diastolic blood pressure 70 mm[Hg] Gomez Green PROJECT CONTROLS SCHEDULER-SUPPLY ROOM CLERK Work Phone: [facility] [employer] 09-01-2023 08:22-0500 Heart rate 98 /min Gomez Green APRN-SUPPLY ROOM CLERK Work Phone: [facility] [employer] 09-01-2023 08:22-0500 SaO2% (BldA) [Mass fraction] 98 % Gomez Green APRN-SUPPLY ROOM CLERK Work Phone: [facility] [employer] 09-01-2023 08:22-0500 Systolic blood pressure 110 mm[Hg] Gomez Green APRN-SUPPLY ROOM CLERK Work Phone: [facility] [employer] 08-31-2023 13:04-0500 Body height 172.7 cm Teri Perez DO Work Phone: [facility] [employer] 08-31-2023 13:04-0500 Body mass index (BMI) [Ratio] 23.17 kg/m2 Teri Perez DO Work Phone: [facility] [employer] 08-31-2023 13:04-0500 Body weight 69.13 kg Teri Perez DO Work Phone: [facility] 08-31-2023 13:04-0500 Diastolic blood pressure 62 mm[Hg] Teri Perez DO Work Phone: [facility] 08-31-2023 13:04-0500 Systolic blood pressure 104 mm[Hg] Teri Perez DO Work Phone: [facility] [employer] 08-27-2023 10:52-0500 Body height 172.7 cm Gomez BANGURA Work Phone: [facility] 08-27-2023 10:52-0500 Body mass index (BMI) [Ratio] 23.16 kg/m2 Gomez Green APRN-LYNNETTE Work Phone: [facility] 08-27-2023 10:52-0500 Body temperature 98.6 [degF] Gomez Green APRN-LYNNETTE Work Phone: [facility] [employer] 08-27-2023 10:52-0500 Body weight 69.08 kg Gomez Green APRN-LYNNETTE Work Phone: [facility] 08-27-2023 10:52-0500 Diastolic blood pressure 60 mm[Hg] Gomez Green APRN-LYNNETTE Work Phone: [facility] 08-27-2023 10:52-0500 Heart rate 100 /min Gomez BANGURA Work Phone: [facility] [employer] 08-27-2023 10:52-0500 SaO2% (BldA) [Mass fraction] 97 % Gomez BANGURA Work Phone: [facility] 08-27-2023 10:52-0500 Systolic blood pressure 100 mm[Hg] Gomez Green APRN-LYNNETTE Work Phone: [facility] 07-25-2021 11:32-0500 Body height 175.3 cm Stanton Kohler DO Work Phone: [employer] 07-25-2021 11:32-0500 Body mass index (BMI) [Ratio] 36.39 kg/m2 Stanton Johnsony Work Phone: [employer] 07-25-2021 11:32-0500 Body temperature 98.1 [degF] Stanton Johnsony Work Phone: [employer] 07-25-2021 11:32-0500 Body weight 111.77 kg Stanton Kohler DO Work Phone: [employer] 07-25-2021 11:32-0500 Diastolic blood pressure 82 mm[Hg] Stanton Rajaely DO Work Phone: [employer] 07-25-2021 11:32-0500 Heart rate 82 /min Stanton Johnsony DO Work Phone: [employer] 07-25-2021 11:32-0500 Respiratory rate 16 /min Stanton Johnsony DO Work Phone: [employer] 07-25-2021 11:32-0500 SaO2% (BldA) [Mass fraction] 100 % Stanton Johnsony DO Work Phone: [employer] 07-25-2021 11:32-0500 Systolic blood pressure 126 mm[Hg] Stanton Johnsony DO Work Phone: [employer] 07-10-2021 12:30-0500 Body height 175.3 cm Loreta Juares Jr., DO Work Phone: [employer] 07-10-2021 12:30-0500 Body mass index (BMI) [Ratio] 36.48 kg/m2 Loreta Juares Jr., DO Work Phone: [employer] 07-10-2021 12:30-0500 Body temperature 98.01 [degF] Loreta Juares Jr., DO Work Phone: [employer] 07-10-2021 12:30-0500 Body weight 112.04 kg Loreta Juares Jr., DO Work Phone: [employer] 07-10-2021 12:30-0500 Diastolic blood pressure 74 mm[Hg] Loreta Juares Jr., DO Work Phone: [employer] [facility] 07-10-2021 12:30-0500 Systolic blood pressure 122 mm[Hg] Loreta Juares Jr., DO Work Phone: [facility] 05-02-2021 17:15-0400 Body height 171.45 cm Lenora Whitehead Other [employer] Other 05-02-2021 17:15-0400 Body mass index (BMI) [Ratio] 33.94 kg/m2 Lenora Whitehead Other [employer] Other 05-02-2021 17:15-0400 Body temperature 97.5 [degF] Lenora Whitehead Other [employer] Other 05-02-2021 17:15-0400 Body weight 99.79 kg Lenora Whitehead Other [employer] Other 05-02-2021 17:15-0400 Respiratory rate 18 /min Lenora Whitehead Other [employer] Other 05-02-2021 17:15-0400 SaO2% (BldA) [Mass fraction] 98 % Lenora Whitehead Other [employer] Other Encounters Encounter Date Encounter Type Care Provider Facility Start: 02-27-2025 End: 02-27-2025 Orders Only Laureen Patel MA [facility] Comment on above: Abnormal TSH (Primar y Dx) Start: 02-12-2025 End: 02-12-2025 Orders Only Laureen Patel MA [facility] Comment on above: Elevated TSH (Primar y Dx); Low serum prolactin Start: 02-08-2025 End: 02-08-2025 ambulatory SHELLEYPIA GOLDBERG [facility] [place] [facility] Start: 02-08-2025 End: 02-08-2025 Subsequent hospital visit by physician Vanna [facility] Schedule [facility] Comment on above: 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; Weakness of both legs Start: 01-30-2025 End: 01-30-2025 Office outpatient visit 15 minutes Carmen Keen MD Work Phone: [facility] Comment on above: Postmenopausal syndr ome (Primary Dx) Start: 01-30-2025 End: 01-30-2025 ambulatory CARMEN KEEN [facility] Start: 01-12-2025 End: 01-12-2025 Orders Only Jessica Pete PROJECT CONTROLS SCHEDULER-SUPPLY ROOM CLERK Work Phone: [facility] Comment on above: Kiesha glabrata inf ection (Primary Dx) Start: 01-11-2025 End: 01-11-2025 Office outpatient new 30 minutes Stanton F eh DO Work Phone: [facility] Comment on above: Weakness (Primary Dx ) Start: 01-11-2025 [facility] Start: 01-10-2025 End: 01-10-2025 Emergency department patient visit MICHAEL FUNEZ [facility] Start: 01-01-2025 ambulatory GOMEZ Souza [facility] Start: 12-25-2024 End: 12-27-2024 ambulatory JESSICA FAINA [facility] Start: 12-25-2024 End: 12-27-2024 Subsequent hospital visit by physician [facility] Comment on above: Nipple discharge Start: 12-20-2024 End: 12-21-2024 Evaluation and management of inpatient Rikki Oscar MD Work Phone: [facility] Comment on above: 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) (Primary Dx) Start: 12-20-2024 End: 12-20-2024 Orders Only Jessica Pete PROJECT CONTROLS SCHEDULER-SUPPLY ROOM CLERK Work Phone: [facility] Comment on above: Vasomotor symptoms d ue to menopause (Primary Dx); Brain fog; Irritability Start: 12-12-2024 End: 12-14-2024 Orders Only Jessica Pete PROJECT CONTROLS SCHEDULER-SUPPLY ROOM CLERK Work Phone: [facility] Comment on above: Kiesha glabrata inf ection; Vaginal yeast infection History of uterine f ibroid Start: 12-08-2024 End: 12-10-2024 ambulatory SHELLEYPIA GOLDBERG [facility] [place] [facility] Start: 12-08-2024 End: 12-10-2024 Subsequent hospital visit by physician Mazin Mri [employer] [facility] Comment on above: Lumbar radiculopathy Thyroid nodule Acute pain of left k nee Start: 12-07-2024 End: 12-07-2024 Orders Only Kelly Solis [facility] Comment on above: Nipple discharge (Pr imary Dx) Kiesha glabrata inf ection (Primary Dx); Vaginal yeast infection Start: 12-06-2024 End: 12-06-2024 Telephone encounter Jessica Pete APRN-SUPPLY ROOM CLERK [facility] Start: 12-06-2024 End: 12-06-2024 Patient encounter procedure [facility] [employer] [facility] Start: 12-06-2024 End: 12-06-2024 Periodic preventive med est patient 40-64yrs [facility] [employer] [facility] Comment on above: Well woman exam with routine gynecological exam (Primary Dx); Screening mammogram for breast cancer; Screening for STD (sexually transmitted disease); Acute vaginitis; History of uterine fibroid; Nipple discharge; Pelvic pain; Screening for colon cancer Start: 12-06-2024 End: 12-06-2024 ambulatory [facility] Start: 12-06-2024 Encounter for gynecological examination (general) (routine) without abnormal findings [facility] Start: 11-14-2024 End: 11-14-2024 [facility] Start: 11-14-2024 End: 11-14-2024 Subsequent hospital visit by physician Gomez Green APRN - SUPPLY ROOM CLERK Work Phone: [facility] Comment on above: Swelling of both low er extremities; Type 2 diabetes mellitus with hyperglycemia, without long-term current use of insulin (HCC) Start: 11-14-2024 End: 11-14-2024 Telephone encounter Bonnie Jfef [facility] Call Liliana stevens Comment on above: Results Start: 10-19-2024 End: 10-19-2024 Telephone encounter Diane Restrepo RN Work Phone: [facility] Comment on above: Transition Of Care Start: 10-16-2024 End: 10-18-2024 Evaluation and management of inpatient Flory Toure DO Work Phone: [facility] Comment on above: Swelling of both low er extremities (Primary Dx); Edema, unspecified type; Type 2 diabetes mellitus with hyperglycemia, without long-term current use of insulin ([facility]) Start: 10-29-2023 End: 10-29-2023 Telephone encounter Anny Vee CMA [facility] Comment on above: Preventative Screeni ng Start: 10-19-2023 End: 10-19-2023 Orders Only Gomez Green PROJECT CONTROLS SCHEDULER-SUPPLY ROOM CLERK Work Phone: [facility] Start: 10-13-2023 End: 10-14-2023 ambulatory [facility] Start: 10-13-2023 End: 10-13-2023 Office outpatient visit 25 minutes Gomez Green PROJECT CONTROLS SCHEDULER-SUPPLY ROOM CLERK Work Phone: [facility] Comment on above: Acquired hypothyroid ism (Primary Dx); Type 2 diabetes mellitus with hyperglycemia, without long-term current use of insulin ([facility]); Goiter; Smoking; History of Sjogren's disease ([facility]) Start: 09-01-2023 End: 09-02-2023 ambulatory [facility] Start: 09-01-2023 End: 09-01-2023 Patient encounter status Gomez Green PROJECT CONTROLS SCHEDULER-SUPPLY ROOM CLERK Work Phone: [facility] [employer] Work Phone: Start: 09-01-2023 End: 09-01-2023 Periodic preventive med est patient 40-64yrs Gomez Green PROJECT CONTROLS SCHEDULER-SUPPLY ROOM CLERK Work Phone: [facility] Comment on above: Wellness examination (Primary Dx); Other specified diabetes mellitus with hyperglycemia, without long-term current use of insulin ([facility]); Graves disease; Acquired hypothyroidism; Special screening for malignant neoplasm of colon; Smoking Start: 08-31-2023 End: 08-31-2023 Encounter for gynecological examination (general) (routine) without abnormal findings Teri Perez DO Work Phone: [employer] Start: 08-31-2023 End: 08-31-2023 Patient encounter procedure Teri Perez DO Work Phone: [employer] Start: 08-31-2023 End: 08-31-2023 Periodic preventive med est patient 40-64yrs Teri Libby Perez DO Work Phone: [facility] Comment on above: Well woman exam with routine gynecological exam (Primary Dx); Screening mammogram for breast cancer; Cervical smear, as part of routine gynecological examination; History of uterine fibroid; Menorrhagia with regular cycle; History of Graves' disease; History of cervical cancer; Smoker; Weight loss; History of Sjogren's disease ([facility]) Start: 08-30-2023 Orders Only Gomez Green PROJECT CONTROLS SCHEDULER-SUPPLY ROOM CLERK Work Phone: [facility] Start: 08-27-2023 End: 08-28-2023 ambulatory GOMEZ GREEN [facility] Start: 08-27-2023 End: 08-27-2023 Office outpatient new 45 minutes Gomezniall Green PROJECT CONTROLS SCHEDULER-SUPPLY ROOM CLERK Work Phone: [facility] Comment on above: Encounter for medica l examination to establish care (Primary Dx); Graves' disease; Acquired hypothyroidism; Sjogren syndrome, unspecified ([facility]); Goiter; Malignant neoplasm of cervix, unspecified site ([facility]); Hyperglycemia; Hyperlipidemia, unspecified hyperlipidemia type; Smoking; Nail fungus; Hyperpigmentation Start: 08-27-2023 End: 08-27-2023 Patient encounter status Gomez Green PROJECT CONTROLS SCHEDULER-SUPPLY ROOM CLERK Work Phone: [facility] [employer] Work Phone: Start: 10-19-2022 End: 10-20-[address] [facility] Start: 03-17-2022 End: 03-17-[address] [facility] Start: 07-25-2021 End: 07-25-2021 Office outpatient visit 40 minutes Stanton F Jose F DO Work Phone[facility] Comment on above: Nocturnal leg moveme nts (Primary Dx) Start: 07-10-2021 End: 07-10-2021 Office outpatient new 45 minutes Loreta Juares DO Work Phone: [employer] [facility] Comment on above: History of Sjogren's disease (Primary Dx); Hyperpigmentation of skin of cheek; Xerostomia; Dry mouth; Dry eyes; Telangiectasia of face; Hypothyroidism, unspecified type; Hyperglycemia; Basedow's disease; Keratoconjunctivitis sicca; Osteoarthritis of right hand, unspecified osteoarthritis type; Osteoarthritis of left foot, unspecified osteoarthritis type; Lumbar degenerative disc disease Start: 05-02-2021 (URG) Urgent Care Visit Lenora townsend [facility] Procedures Date Procedure Procedure Detail Performing Clinician Start: 02-08-2025 End: 02-08-2025 Creatine kinase total Trice torres MD Work Phone: Start: 02-08-2025 VITAMIN B12 & FOLATE Asa Araiza MD Work Phone: Start: 12-25-2024 Us breast uni real t estefania with image limited Jessica Pete PROJECT CONTROLS SCHEDULER - CUSTOM SKI MAKER Work Phone: Start: 12-25-2024 End: 12-25-2024 Diagnostic mammography computer-aided detcj bi Jessica Pete PROJECT CONTROLS SCHEDULER - CUSTOM SKI MAKER Work Phone: Start: 12-21-2024 GLUCOSE, WHOLE BLOOD Ma rk Pk Herron MD Work Phone: Start: 12-21-2024 GLUCOSE, WHOLE BLOOD Marga Herron MD Work Phone: Start: 12-21-2024 Rhythm ecg 1-3 leads w/interpretation & report Unknown Provider Result Start: 12-21-2024 Blood count complete auto&auto difrntl wbc Dipti Crowen PROJECT CONTROLS SCHEDULER - SUPPLY ROOM CLERK Work Phone: Start: 12-21-2024 GLUCOSE, WHOLE BLOOD Marga Herron MD Work Phone: Start: 12-21-2024 Urnls dip stick/tabl et reagent auto microscopy Dipti Crowen PROJECT CONTROLS SCHEDULER - SUPPLY ROOM CLERK Work Phone: Start: 12-20-2024 Basic metabolic pane l calcium total Rikki Oscar MD Work Phone: Start: 12-20-2024 GLUCOSE, WHOLE BLOOD Nevin Oscar MD Work Phone: Start: 12-20-2024 End: 12-20-2024 Ct head/brain w/o contrast material Rikki Oscar MD Work Phone: Start: 12-20-2024 Ecg routine ecg w/le ast 12 lds w/i&r Rikki Oscar MD Work Phone: Start: 12-20-2024 Blood gases any combination ph pco2 po2 co2 hco3 Rikki Oscar MD Work Phone: Start: 12-20-2024 Comprehensive metabo lic panel Rikki Oscra MD Work Phone: Start: 12-20-2024 GLUCOSE, WHOLE BLOOD Nevin Oscar MD Work Phone: Start: 12-08-2024 Us soft tissue head & neck real time imge docm Shelley Goldberg MD Work Phone: Start: 12-08-2024 Radiologic examinati on knee 1/2 views Shelley Goldberg MD Work Phone: Start: 11-14-2024 Comprehensive metabo lic panel Unknown Provider Result Start: 11-14-2024 Urine albumin quantitative Unknown Provider Result Start: 10-18-2024 GLUCOSE, WHOLE BLOOD Ch ristopher D Sears MD Work Phone: Start: 10-18-2024 GLUCOSE, WHOLE BLOOD Connor Avila MD Work Phone: Start: 10-18-2024 Assay of thyroid stimulating hormone tsh Karime BlakeersKadeem PROJECT CONTROLS SCHEDULER [employer] Work Phone: Start: 10-18-2024 Rhythm ecg 1-3 leads w/interpretation & report Unknown Provider Result Start: 10-17-2024 Assay of osmolality urine Melsisa Tamayo Hemmelgarn DO Work Phone: Start: 10-17-2024 Urine albumin quantitative Melissa E Hemmelgarn DO Work Phone: Start: 10-17-2024 End: 10-17-2024 GLUCOSE, WHOLE BLOOD Becky Avila MD Work Phone: Start: 10-17-2024 Ct angio abd&plvis c ntrst mtrl w/wo cntrst img Karime BlakeersKadeem PROJECT CONTROLS SCHEDULER [facility] SUPPLY ROOM CLERK Work Phone: Start: 10-17-2024 End: 10-17-2024 Rhythm ecg 1-3 leads w/interpretation & report Unknown Provider Result Start: 10-17-2024 Urnls dip stick/tabl et reagent auto microscopy Dipti Romero PROJECT CONTROLS SCHEDULER - SUPPLY ROOM CLERK Work Phone: Start: 10-17-2024 Hemoglobin glycosyla kaylen a1c Dipti Romero PROJECT CONTROLS SCHEDULER - SUPPLY ROOM CLERK Work Phone: Start: 10-16-2024 GLUCOSE, WHOLE BLOOD Connor Avila MD Work Phone: Start: 10-16-2024 End: 10-17-2024 Ecg routine ecg w/least 12 lds i&r only Flory Toure DO Work Phone: Start: 10-16-2024 Comprehensive metabo lic panel Flory Alcantara Toure DO Work Phone: Start: 10-13-2023 Adult depression scr eening assessment Gomez Green [employer] Work Phone: Start: 09-01-2023 Adult depression scr eening assessment Gomez Green [employer] Work Phone: Start: 09-01-2023 Microalbumin [Mass/v olume] in Urine by Test strip Gomez Green [employer] Work Phone: Start: 08-31-2023 Adult depression scr eening assessment Teri Perez DO Work Phone: Start: 08-31-2023 Microscopic observat ion [Identifier] in Cervix by Cyto stain Gomez Green [employer] Work Phone: Start: 08-27-2023 Adult depression scr eening assessment Gomez Green [employer] Work Phone: Start: 11-08-2020 Mammography Gomez Barajas ch [employer] Work Phone: Plan of Treatment Date Care Activity Detail Author Start: 12-25-2026 Screening for malignant neoplasm of breast [facility] Start: 08-31-2026 Screening for malignant neoplasm of cervix Pap Smear [facility] Start: 08-02-2026 Tobacco Counseling Tobacco Counseling [facility] Start: 01-30-2026 Adult BMI Screening Adult BMI Screening [facility] Start: 01-30-2026 Tobacco Screening Tobacco Screening [facility] Start: 01-10-2026 Adult BMI Screening Adult BMI Screening [facility] Start: 01-10-2026 Tobacco Screening Tobacco Screening [facility] Start: 12-25-2025 Screening for malignant neoplasm of breast Mammogram [facility] Start: 12-21-2025 GFR test (Diabetes, CKD 3-4, OR last GFR 15-59) GFR test (Diabetes, CKD 3-4, OR last GFR 15-59) [facility] Start: 12-06-2025 Adult BMI Screening Adult BMI Screening [facility] Start: 12-06-2025 Tobacco Screening Tobacco Screening [facility] Start: 11-14-2025 GFR test (Diabetes, CKD 3-4, OR last GFR 15-59) GFR test (Diabetes, CKD 3-4, OR last GFR 15-59) [facility] Start: 11-14-2025 Urine screening for protein Diabetic Alb to Cr ratio (uACR) test [facility] Start: 10-18-2025 GFR test (Diabetes, CKD 3-4, OR last GFR 15-59) GFR test (Diabetes, CKD 3-4, OR last GFR 15-59) [facility] Start: 10-17-2025 Urine screening for protein Diabetic Alb to Cr ratio (uACR) test [facility] Start: 03-22-2025 End: 03-22-2025 Patient encounter procedure 03/22/2025 2:20 PM EDT Office Visit [address] [place] [phone] Trice Araiza MD [address] [place] [address] [address] [place] [phone] Peripheral Neuropathy ; 1 mth follow up EEG, labs [facility] Comment on above: Peripheral Neuropathy ; 1 mth follow up EEG, labs Start: 03-06-2025 End: 03-06-2025 Patient encounter procedure 03/06/2025 2:15 PM EDT Office Visit [facility] [address] [phone] Carmen Keen MD [address] [facility] [address] [place], [place] [id number] [facility] Start: 03-05-2025 Influenza vaccination [facility] Start: 02-28-2025 Tobacco Counseling Tobacco Counseling [facility] Start: 02-08-2025 End: 02-08-2025 Patient encounter procedure 02/08/2025 1:20 PM EDT Office Visit [address] [place] [facility] [place] [address] Trice Araiza MD [address] [place] [address] [address] [place] [address] [facility] Comment on above: ALS Start: 02-05-2025 End: 02-05-2025 Patient encounter procedure 02/05/2025 1:40 PM EDT Office Visit [facility] [address] [place] [address] Trice Araiza MD [address] [facility] [address] [place] [address] [facility] Comment on above: ALS Start: 02-02-2025 Influenza vaccination [facility] Start: 01-30-2025 End: 01-30-2025 Patient encounter procedure 01/30/2025 1:30 PM EDT Office Visit [facility] [address] [place] [phone] Carmen Keen MD [facility] [place] [address] [facility] Start: 01-18-2025 End: 01-11-2026 Electromyography EMG & NERVE CONDUCTION Neurology Routine Weakness Expected: 01/18/2025, Expires: 01/11/2026 [facility] Comment on above: Expected: 01/18/2025, Expires: Start: 01-16-2025 Hemoglobin A1c measurement A1C test (Diabetic or Prediabetic) [facility] Start: 01-01-2025 End: 01-01-2025 Patient encounter procedure 01/01/2025 4:45 PM EDT Appointment [facility] Physical Therapy [address] [place] [address] Bobby Graves, PT [facility] Physical Therapy Start: 01-01-2025 End: 01-01-2025 Patient encounter procedure [facility] Comment on above: media/pt Start: 12-25-2024 End: 12-25-2024 Patient encounter procedure [facility] [place] [facility]amm[facility] Comment on above: media/pt Start: 12-12-2024 End: 12-12-2024 Patient encounter procedure 12/12/2024 1:00 PM EDT Appointment [facility] [place] Ultrasound [address] [place], [place] [id number] media/pt [facility] Ultrasound Comment on above: media/pt Start: 12-07-2024 End: 12-07-2025 US Breast - bilateral limited Ultrasound breast limited bilateral Imaging Routine Nipple discharge Expected: 12/07/2024, Expires: 12/07/2025 [employer] Phone: Comment on above: Expected: 12/07/2024, Expires: Start: 12-06-2024 End: 12-06-2025 MG Breast Diagnostic Mammography diagnostic bilateral with CAD Imaging Routine Nipple discharge Expected: 12/06/2024, Expires: 12/06/2025 [facility] Comment on above: Expected: 12/06/2024, Expires: Start: 12-06-2024 End: 12-06-2025 US Pelvis transabdominal and transvaginal Ultrasound pelvic with transvaginal Imaging Routine History of uterine fibroid Pelvic pain Expected: 12/06/2024, Expires: 12/06/2025 [facility] Comment on above: Expected: 12/06/2024, Expires: Start: 10-25-2024 End: 10-18-2025 Basic metabolic 2000 panel - Serum or Plasma Basic Metabolic Panel Lab Routine Swelling of both lower extremities Type 2 diabetes mellitus with hyperglycemia, without long-term current use of insulin (HCC) Expected: 10/25/2024, Expires: 10/18/2025 [facility] Comment on above: Expected: 10/25/2024, Expires: Start: 10-25-2024 End: 10-18-2025 CBC W Auto Differential panel - Blood CBC with Auto Differential Lab Routine Swelling of both lower extremities Type 2 diabetes mellitus with hyperglycemia, without long-term current use of insulin (HCC) Expected: 10/25/2024, Expires: 10/18/[address] [facility] Comment on above: Expected: 10/25/2024, Expires: Start: 10-12-2024 Adult BMI Screening Adult BMI Screening [facility] Start: 10-12-2024 Depression Screening Depression Screening [facility] Start: 10-12-2024 Tobacco Screening Tobacco Screening [facility] Start: 09-01-2024 Adult BMI Screening Adult BMI Screening [facility] Start: 09-01-2024 Depression Screening Depression Screening [facility] Start: 09-01-2024 Diabetic foot examination Diabetic Foot Exam [facility] Start: 09-01-2024 Tobacco Screening Tobacco Screening [facility] Start: 09-01-2024 Urine screening for protein Urine Microalbumin [facility] Start: 08-31-2024 Adult BMI Screening Adult BMI Screening [facility] Start: 08-31-2024 Depression Screening Depression Screening [facility] Start: 08-31-2024 Tobacco Screening Tobacco Screening [facility] Start: 08-27-2024 Adult BMI Screening Adult BMI Screening [facility] Start: 08-27-2024 Depression Screening Depression Screening [facility] Start: 08-27-2024 Tobacco Screening Tobacco Screening [facility] Start: 03-05-2024 COVID-19 Vaccine ( season) COVID-19 Vaccine ( season) [facility] Start: 03-05-2024 Influenza vaccination Influenza Vaccine [facility] Start: 10-13-2023 End: 10-12-2024 US Thyroid gland Ultrasound thyroid Imaging Routine Goiter Expected: 10/13/2023, Expires: 10/12/2024 [facility] Work Phone: Comment on above: Expected: 10/13/2023, Expires: Start: 10-13-2023 End: 10-13-2023 Patient encounter procedure 10/13/2023 8:40 AM EDT Office Visit [facility] Internal Medicine - Family Medicine [address] [place] [address] Gomez Green, PROJECT CONTROLS SCHEDULER-SUPPLY ROOM CLERK [address] [place] [address] [facility] Start: 09-15-2023 End: 09-15-2023 Patient encounter procedure 09/15/2023 9:30 AM EDT Office Visit [facility] [address] [facility] [place] [phone] Teri Perez, [address] [place] [address] [facility] Start: 09-01-2023 End: 09-01-2023 Patient encounter procedure 09/01/2023 8:30 AM EST Office Visit [facility] Medicine - Family Medicine [address] [place] [address] Gomez Green, PROJECT CONTROLS SCHEDULER-SUPPLY ROOM CLERK [address] [place] [address] [facility] Start: 08-31-2023 End: 08-31-2024 Cytopathology procedure, preparation of smear, genital source Pap Smear Pathology and Cytology Routine Cervical smear, as part of routine gynecological examination Expected: 08/31/2023 (Approximate), Expires: 08/31/2024 [facility] Comment on above: Expected: 08/31/2023 (Approximate), Expi res: 08/31/2024 Start: 08-31-2023 End: 08-31-2024 DBT Breast - bilateral screening Mammography screening bilateral with CAD Imaging Routine Screening mammogram for breast cancer Expected: 08/31/2023, Expires: 08/31/2024 [facility]: Comment on above: Expected: 08/31/2023, Expires: Start: 08-31-2023 End: 08-31-2024 US Pelvis transabdominal and transvaginal Ultrasound pelvic with transvaginal Imaging Routine History of uterine fibroid Menorrhagia with regular cycle Expected: 08/31/2023, Expires: 08/31/2024 [facility] Comment on above: Expected: 08/31/2023, Expires: Start: 08-31-2023 End: 08-31-2023 Patient encounter procedure 08/31/2023 1:00 PM EST [facility] [address] [facility] [place] [phone] Teri Perez DO [address] [place], [place] [id number] [facility] Start: 08-14-2023 DTaP,Tdap and Td Vaccines (2 - Td or Tdap) DTaP,Tdap and Td Vaccines (2 - Td or Tdap) [facility] Start: 08-14-2023 DTaP/Tdap/Td vaccine (2 - Td or Tdap) DTaP/Tdap/Td vaccine (2 - Td or Tdap) [facility] Start: 08-14-2023 Tetanus vaccination TETANUS [facility] Start: 03-05-2023 Influenza vaccination Influenza Vaccine [facility] Start: 11-08-2022 Screening for malignant neoplasm of breast Breast cancer screen [facility] Start: 07-16-2022 End: 07-16-2022 Patient encounter procedure 07/16/2022 Office Visit Rheumatology Mor Harmon, Loreta Mann, DO [address] [place] [address] [facility] Rheumatology Start: 06-23-2022 End: 07-10-2022 C-reactive protein C REACTIVE PROTEIN Lab Routine History of Sjogren's disease Hyperpigmentation of skin of cheek Xerostomia Dry mouth Dry eyes Telangiectasia of face Hypothyroidism, unspecified type Hyperglycemia 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, 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, unspecified osteoarthritis type Lumbar degenerative disc disease Expected: 06/23/2022 (Approximate), Expires: 07/10/2022 [facility] Comment on above: Expected: 06/23/2022 [...] disc disease Expected: 06/23/2022 (Approximate), Expires: 07/10/2022 [facility] Comment on above: Expected: 06/23/2022 (Approximate), Expi [...] disc disease Expected: 06/23/2022 (Approximate), Expires: 07/10/2022 [facility] Comment on above: Expected: 06/23/2022 [...] disc disease Expected: 06/23/2022 (Approximate), Expires: 07/10/2022 [facility] Comment on above: Expected: 06/23/2022 [...] disc disease Expected: 06/23/2022 (Approximate), Expires: 07/10/2022 [facility] Comment on above: Expected: 06/23/2022 [...] disc disease Expected: 06/23/2022 (Approximate), Expires: 07/10/2022 [facility] Comment on above: Expected: 06/23/2022 (Approximate), Expi [...] disc disease Expected: 06/23/2022 (Approximate), Expires: 07/10/2022 [facility] Comment on above: Expected: 06/23/2022 (Approximate), Expi [...] disc disease Expected: 06/23/2022 (Approximate), Expires: 07/10/2022 [facility] Comment on above: Expected: 06/23/2022 (Approximate), Expi [...] disc disease Expected: 06/23/2022 (Approximate), Expires: 07/10/2022 [facility] Comment on above: Expected: 06/23/2022 (Approximate), Expi res: 07/10/2022 Start: 11-08-2021 Screening for malignant neoplasm of breast [facility] Start: 09-05-2021 End: 09-05-2021 Telemedicine consultation with patient 09/05/2021 Telemedicine Neurology Stanton Kohler, DO [address] [place] [address] [facility] Neurology Start: 03-05-2021 Influenza vaccination INFLUENZA VACCINE (#1) [facility] Start: 2020 Colonoscopy COLORECTAL CANCER SCREENING DISCUSSION [facility] Start: 2020 Screening for malignant neoplasm of colon [facility] Start: 05-07-2016 Glaucoma screening Diabetic retinal exam [facility] Start: 2015 Fasting lipid profile LIPID SCREENING [facility] [employer] Start: 2015 Lipid panel LIPID SCREENING [facility] Start: 2015 Screening mammography MAMMOGRAM SCREENING DISCUSSION [facility] Start: 2005 Screening for malignant neoplasm of cervix [facility] Start: 1996 Screening for malignant neoplasm of cervix [facility] Start: 1994 Hepatitis B vaccination HEP B VACCINE (1 of + 3-dose series) [facility] Start: 1994 Hepatitis B vaccine (1 of 3 - 19+ 3-dose series) Hepatitis B vaccine (1 of 3 - 19+ 3-dose series) [facility] Start: 1994 Pneumococcal 0-49 years Vaccine (1 of 2 - PCV) Pneumococcal 0-49 years Vaccine (1 of 2 - PCV) [facility] Start: 1994 Third diphtheria, tetanus and acellular pertussis (DTaP) vaccination TDAP (ADULT) [facility] Start: 1993 Adult BMI Follow Up Plan Adult BMI Follow Up Plan [facility] Start: 1993 Hepatitis C screening Hepatitis C screen [facility] Start: 1993 Tetanus vaccination TETANUS [facility] Start: 1990 HIV screening [facility] Start: 1987 Depression Screen Depression Screen [facility] Start: 1985 Diabetic foot examination Diabetic foot exam [facility] Start: 1985 Lipid panel Lipids [facility] Start: 1980 COVID-19 VACCINE (1) COVID-19 VACCINE (1) [facility] Start: 1975 Glaucoma screening Diabetic Ophthalmology Exam [facility] Start: 1975 Hepatitis C antibody, confirmatory test HEPATITIS C VIRUS SCREENING [facility] Start: 1975 Hepatitis C screening HEPATITIS C VIRUS SCREENING [facility] Start: 1975 Thyroid stimulating hormone measurement TSH [facility] Start: 1975 Tobacco Counseling Tobacco Counseling [facility] End: 12-20-2024 Blood Gas, Venous Blood Gas, Venous Lab Add-On One Time for 1 Occurrences starting 12/20/2024 until 12/20/[address] [facility] Comment on above: One Time for 1 Occurrences starting 12/03 until 12/20/2024 End: 12-21-2024 Blood gas, venous Blood gas, venous Lab Routine Tomorrow AM for 1 Occurrences starting 12/21/2024 until 12/21/[address] [facility] Comment on above: Tomorrow AM for 1 Occurrences starting 0 12/21/2024 until 12/21/2024 C peptide [Mass/volu me] in Serum or Plasma C-peptide Lab Routine Other specified diabetes mellitus with hyperglycemia, without long-term current use of insulin ([facility]) 09/01/2023 4:16 PM EST [facility] End: 09-01-2024 C-peptide C-peptide Lab Routine Other specified diabetes mellitus with hyperglycemia, without long-term current use of insulin ([facility]) 1 Occurrences starting 09/01/2023 until 09/01/2024 [employer] Work Phone: Comment on above: 1 Occurrences starting 09/01/2023 until 09/01/2024 End: 10-18-2024 C-Peptide [facility] [employer] Comment on above: One Time for 1 Occurrences starting 10/03 until 10/18/2024 End: 01-30-2026 CBC panel - Blood by Automated count CBC without diff Lab Routine Postmenopausal syndrome 1 Occurrences starting 01/30/2025 until 01/30/2026 [employer] Work Phone: Comment on above: 1 Occurrences starting 01/30/2025 until 01/30/2026 End: 10-21-2024 CBC W Auto Differential panel - Blood CBC auto differential Lab Routine Daily for 5 Days starting 10/17/2024 until 10/21/2024, 2 completed [employer] Comment on above: Daily for 5 Days starting 10/17/2024 unt il 10/21/2024, 2 completed End: 12-25-2024 CBC W Auto Differential panel - Blood CBC auto differential Lab Routine Daily for 5 Days starting 12/21/2024 until 12/25/2024, 1 completed [employer] Comment on above: Daily for 5 Days starting 12/21/2024 unt il 12/25/2024, 1 completed Chlamydia trachomati s DNA [Presence] in Unspecified specimen by NEENA with probe detection Chlamydia/GC by PCR [facility] Routine Screening for STD (sexually transmitted disease) 12/06/2024 1:37 PM EDT [facility] Lab Routine Special screening for malignant neoplasm of colon Ordered: 09/01/2023 [employer] Comment on above: Ordered: 09/01/2023 Colog[facility]ard [facility] Cologuar d [facility] Lab Routine Screening for colon cancer Ordered: 12/06/2024 [employer] Comment on above: Ordered: 12/06/2024 End: 10-21-2024 Comprehensive Metabolic Panel w/ Reflex to MG Comprehensive Metabolic Panel w/ Reflex to MG Lab Routine Daily for 5 Days starting 10/17/2024 until 10/21/2024, 2 completed [employer] Comment on above: Daily for 5 Days starting 10/17/2024 unt il 10/21/2024, 2 completed End: 12-25-2024 Comprehensive Metabolic Panel w/ Reflex to MG Comprehensive Metabolic Panel w/ Reflex to MG Lab Routine Daily for 5 Days starting 12/21/2024 until 12/25/2024, 1 completed [employer] Comment on above: Daily for 5 Days starting 12/21/2024 unt la 12/25/2024, 1 completed End: 12-20-2025 Cortisol Cortisol Lab Routine Vasomotor symptoms due to menopause Brain fog Irritability 1 Occurrences starting 12/20/2024 until 12/20/2025 [facility] Comment on above: 1 Occurrences starting 12/20/2024 until 12/20/2025 End: 12-20-2025 DHEA-sulfate DHEA-sulfate Lab Routine Vasomotor symptoms due to menopause Brain fog Irritability 1 Occurrences starting 12/20/2024 until 12/20/2025 [facility] Comment on above: 1 Occurrences starting 12/20/2024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 23.7 Usual Body Weight: 62.6 kg (138 lb) (2 months ago when hospitalized) % Weight Change (Calculated): 13 Weight Adjustment For: No Adjustment BMI Categories: Normal Weight (BMI 18.5-24.9) Estimated Daily Nutrient Needs: Energy Requirements Based On: Kcal/kg Weight Used for Energy Requirements: Current Energy (kcal/day): 9727-7600 (23-25) Weight Used for Protein Requirements: Current Protein (g/day): 78-92 (1.1-1.3) Method Used for Fluid Requirements: 1 ml/kcal Fluid (ml/day): 1800 Nutrition Diagnosis: Altered nutrition-related lab values related to endocrine dysfunction as evidenced by lab values Lab Results Component Value Date NA 136 12/21/2024 K 3.8 12/21/2024 CL 107 12/21/2024 CO2 19 (L) 12/21/2024 BUN 14 12/21/2024 CREATININE 0.4 (L) 12/21/2024 GLUCOSE 146 (H) 12/21/2024 CALCIUM 8.4 (L) 12/21/2024 BILITOT 0.2 12/21/2024 ALKPHOS 103 12/21/2024 AST 13 12/21/2024 ALT 19 12/21/2024 LABGLOM >90 12/21/2024 Hemoglobin A1C Date Value Ref Range Status 10/17/2024 14.3 (H) 4.0 - 6.0 % Final No results found for: VITD25 Nutrition Interventions: Food and/or Nutrient Delivery: Continue Current Diet Nutrition Education/Counseling: Education/Counseling declined Coordination of Nutrition Care: Continue to monitor while inpatient Plan of Care discussed with: patient Goals: Goals: Meet at least 75% of estimated needs Type of Goal: New goal Previous Goal Met: New Goal Nutrition Monitoring and Evaluation: Behavioral-Environmental Outcomes: Beliefs and Attitudes, Knowledge or Skill Food/Nutrient Intake Outcomes: Food and Nutrient Intake Physical Signs/Symptoms Outcomes: Biochemical Data, Weight, Meal Time Behavior Discharge Planning: Continue current diet Derick Grijalva RD, LD Contact: [phone] Patient ambulated to the bathroom and back to bed with cane. She tolerated fairly well. Patient denies dizziness or mobility issues. Call light and bedside table remain within reach. Care ongoing. Patient arrived to keno writer from ED. Report given from ED to primary nurse ALIE Cruz. Patient ambulated to the bed with assistance and tolerated well. Patient alert and oriented x4. Able to answer questions appropriately and follow commands. Vitals and assessment as charted. Admission navigator completed. Medications reviewed. Bed alarm on, bed locked, gripper socks on, call light within reach and able to use appropriately. Plan of care ongoing. Patient denies any further needs at this time. documented in this encounter [facility] 12-21-2024 Hospital Discharg e instructions Maite Hargrove RN - 12/21/2024 1:17 PM EDT As tolerated Maite Hargrove RN - 12/21/2024 1:17 PM EDT Good nutrition is important when healing from an illness, injury, or surgery. Follow any nutrition recommendations given to you during your hospital stay. If you were given an oral nutrition supplement while in the hospital, continue to take this supplement at home. You can take it with meals, in-between meals, and/or before bedtime. These supplements can be purchased at most local grocery stores, pharmacies, and chain [employer]-stores. If you have any questions about your diet or nutrition, call the hospital and ask for the dietitian. Diabetic diet Per Larry Operator: Try and eat 45 grams of carbohydrates each meal. The following attachments cannot be sent through Care Everywhere.Hyperglycemia: General Info ([place])documented in this encounter [facility] 12-20-2024 History of Presen t illness Narrative Phone call to patient to discuss labs and ultrasound that were completed in [place] on 12/12/24. U/S showed a small fibroid, otherwise WNL. HIV, hepatitis and syphilis negative. Prolactin slightly low. Patient would like her hormones checked, states she has brain fog, facial hair, night sweats and irritability. Labs ordered and faxed to [place]. Patient to follow up with Dr. Keen to discuss labs and possible treatment. Patient states she has her diagnostic mammogram scheduled for later this month. SVETA Duckworth APRN-CNP 12/20/24 1034 documented in this encounter [facility] 12-12-2024 Miscellaneous Notes Pt states [facility] has not received RX for boric acid 600mg suppository. Called [facility] and spoke with Corinna in the Pharmacy. Corinna verified they did not receive RX. Please resend. Thank you RX resent. LVM advising RX was resent. documented in this encounter [facility] 12-12-2024 Telephone encounter Note Pt states [facility] has not received RX for boric acid 600mg suppository. Called [facility] and spoke with Corinna in the Pharmacy. Corinna verified they did not receive RX. Please resend. Thank you [facility] 12-12-2024 Telephone encounter Note RX resent. [facility] Work Phone: 12-12-2024 Telephone encounter Note LVM advising RX was resent. [facility] 12-07-2024 History of Presen t illness Narrative Per scheduling they need a bilateral breast ultrasound ordered with the diagnostic mammogram. Order placed. documented in this encounter [facility] 12-06-2024 Miscellaneous Notes Patient called asking for Mammogram and Pelvic Ultrasound orders to be faxed to [facility]. Fax number is [phone]. Orders successfully faxed to [facility] and confirmation scanned into Actuarial Science Professor. documented in this encounter [facility] 12-06-2024 Telephone encounter Note Patient called asking for Mammogram and Pelvic Ultrasound orders to be faxed to [facility]. Fax number is [phone]. [facility] 12-06-2024 Telephone encounter Note Orders successfully faxed to [facility] and confirmation scanned into Actuarial Science Professor. [facility] 12-06-2024 History of Presen t illness Narrative Anayeli Hidalgo is a pleasant 49 y.o. 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 Hysterectomy: no She is not currently sexually active. Occasional right lower quadrant pain. Patient reports hx of a uterine fibroid. Patient would like all STD testing today. Denies symptoms. She also c/o bilateral clear spontaneous nipple discharge recently. Employment: not employed Vaginal Bleeding none Hot flashes / menopausal symptoms - None Bladder issues - overactive, leakage Bowel issues - None History of abnormal Pap smear: yes - pt reports cervical cancer 20 years ago, had it frozen Last pap: 08/31/23- Neg, Neg HPV Family history of uterine or ovarian cancer: no Family hx pancreatic or prostate cancer: no Family history of colon cancer: no Family history of breast cancer: no Regular self breast exam: yes Last mammogram: 11/2020 Dexa Scan: n/a Colonoscopy: not yet, desires cologuard PHQ9 depression screening: declined OB History 3 Para 2 Term 2 AB Living SAB IAB Ectopic Multiple Live Births Past Medical History: Diagnosis Date Cancer (CMS-HCC) uterine cancer/ froze DDD (degenerative disc disease), lumbar Mixed connective tissue disease Uterine cancer (CMS-HCC) History reviewed. No pertinent surgical history. Family History Problem Relation Age of Onset Diabetes Mother Stroke Mother Hypertension Mother No Known Problems Sister No Known Problems Daughter No Known Problems Son Breast cancer Neg Hx Cancer Neg Hx Colon cancer Neg Hx Ovarian cancer Neg Hx Current Outpatient Medications Medication Sig Dispense Refill acetaminophen (TYLENOL EXTRA STRENGTH) 500 mg tablet Take 1 tablet (500 mg total) by mouth every 6 (six) hours as needed for pain. 30 tablet 0 blood sugar diagnostic strip 1 strip by other route as needed for high blood sugar. 100 strip 1 blood-glucose meter [facility] Use to check blood sugar once daily. 1 each 0 ibuprofen (MOTRIN) 800 mg tablet Take 1 tablet (800 mg total) by mouth every 8 (eight) hours as needed for pain. 21 tablet 0 JARDIANCE 10 mg tablet tablet lancets (onetouch ultrasoft) [facility] Use to check blood sugar once daily 100 each 1 LANTUS SOLOSTAR U-100 INSULIN 100 unit/mL (3 mL) insulin pen metFORMIN (GLUCOPHAGE) 500 mg tablet Take 1 tablet (500 mg total) by mouth in the morning and 1 tablet (500 mg total) in the evening. Take with meals. 180 tablet 1 nicotine (NICODERM CQ) 21 mg/[address] 1 patch on the skin. levothyroxine (SYNTHROID, LEVOTHROID) 75 MCG tablet Take 1 tablet (75 mcg total) by mouth in the morning. (Patient not taking: Reported on 12/06/2024) 90 tablet 1 terbinafine (LamISIL) 250 mg tablet (Patient not taking: Reported on 12/06/2024) No current facility-administered medications for this visit. ALLERGIES No Known Allergies Review of Systems Constitutional: Negative. Respiratory: Negative. Negative for chest tightness and shortness of breath. Cardiovascular: Negative. Negative for chest pain and palpitations. Gastrointestinal: Negative. Negative for constipation, diarrhea, nausea and vomiting. Endocrine: Negative. Genitourinary: Positive for pelvic pain. Negative for menstrual problem and vaginal discharge. Musculoskeletal: Negative. Skin: Negative. Allergic/Immunologic: Negative. Neurological: Negative. Hematological: Negative. Psychiatric/Behavioral: Negative. Physical Exam BP 120/84 Ht 172.7 cm (5' 8 ) Wt 68.8 kg (151 lb 9.6 oz) LMP 10/08/2023 BMI 23.05 kg/m Physical Exam Vitals and nursing note reviewed. Constitutional: Appearance: Normal appearance. HENT: Head: Normocephalic and atraumatic. Cardiovascular: Rate and Rhythm: Normal rate and regular rhythm. Pulses: Normal pulses. Heart sounds: Normal heart sounds. Pulmonary: Effort: Pulmonary effort is normal. Breath sounds: Normal breath sounds. Chest: Breasts: Breasts are symmetrical. Right: Normal. No mass, skin change or tenderness. Left: Normal. No mass, skin change or tenderness. Abdominal: General: Bowel sounds are normal. Palpations: Abdomen is soft. Genitourinary: General: Normal vulva. Labia: Right: No rash or lesion. Left: No rash or lesion. Vagina: Normal. Cervix: Normal. Uterus: Normal. Not enlarged and not tender. Adnexa: Right adnexa normal and left adnexa normal. Right: No mass, tenderness or fullness. Left: No mass, tenderness or fullness. Musculoskeletal: General: Normal range of motion. Cervical back: Normal range of motion and neck supple. Skin: General: Skin is warm and dry. Neurological: Mental Status: She is alert and oriented to person, place, and time. Psychiatric: Mood and Affect: Mood normal. Speech: Speech normal. Behavior: Behavior normal. Thought Content: Thought content normal. Judgment: Judgment normal. Assessment / Plan Anayeli was seen today for annual exam. Diagnoses and all orders for this visit: Well woman exam with routine gynecological exam Screening mammogram for breast cancer - Cancel: Mammography screening bilateral with CAD; Future Screening for STD (sexually transmitted disease) - HIV 1&2 AB/AG Screen (P24 AG); Future - Syphilis Total (Unknown Syphilis Status); Future - Hepatitis panel, acute; Future - Chlamydia/GC by PCR Imelda Swab Acute vaginitis - Vaginitis Panel PCR History of uterine fibroid - Ultrasound pelvic with transvaginal; Future Nipple discharge - Mammography diagnostic bilateral with CAD; Future - Prolactin; Future Pelvic pain - Ultrasound pelvic with transvaginal; Future Screening for colon cancer - Cologuard Non-[facility] Discussed ASCCP screening guidelines. BMI is in the acceptable range. Recommend breast self-awareness. Notify provider for any breast changes or concerns Discussed taking a multivitamin. Discussed Calcium and Vitamin D for prevention of osteoporosis. Discussed need for yearly mammogram after 40 yo. Order placed. Cologuard ordered per patient request. Educational material provided. All questions answered. RTO for annual engineering assistant exam and / or PRN. Jessica Pete APRN-SVETA Gomez 12/06/24 1342 documented in this encounter [facility] 11-14-2024 Miscellaneous Notes Received a phone call in poor signal area at 1721 tonight from after hrs then [facility] lab stating pt critical BG of 605 (I believe that is what the lab had states although signal was poor). Called office and no ER records available on pt. Called and spoke w/ pt when provider came into better signal area 2139 regarding very high BG. Pt states she is now seeing [facility] in [place] for PCP and they had ordered lab testing which she had drawn at 1600 this afternoon. Currently she is A&O and only c/o mildly blurry vision. She has no other symptoms at this time. She has not been driving last several weeks for this reason. She had previously declined medical treatment for her DMII with me in office but states she has come to terms that she needs treatment and accepted insulin Rx from her new PCP. She gave herself a dose of long acting insulin 40 units a few min ago. Her BG monitor is reading high for last several days so she knows her BG has been high. I advised her to get checked out in the ER due to dangerously high BG reading. She will call her ride back (her daughter) to pick her up and is agreeable to seek treatment in ER. Pt thanked provider for calling her. She was advised to f/u with her new PCP as directed by ER. documented in this encounter [facility] 11-14-2024 Telephone encounter Note Received a phone call in poor signal area at 1721 tonight from after [facility] then [facility] lab stating pt critical BG of 605 (I believe that is what the lab had states although signal was poor). Called office and no ER records available on pt. Called and spoke w/ pt when provider came into better signal area 2140 regarding very high BG. Pt states she is now seeing [facility] in [place] for PCP and they had ordered lab testing which she had drawn at 1600 this afternoon. Currently she is A&O and only c/o mildly blurry vision. She has no other symptoms at this time. She has not been driving last several weeks for this reason. She had previously declined medical treatment for her DMII with me in office but states she has come to terms that she needs treatment and accepted insulin Rx from her new PCP. She gave herself a dose of long acting insulin 40 units a few min ago. Her BG monitor is reading high for last several days so she knows her BG has been high. I advised her to get checked out in the ER due to dangerously high BG reading. She will call her ride back (her daughter) to pick her up and is agreeable to seek treatment in ER. Pt thanked provider for calling her. She was advised to f/u with her new PCP as directed by ER. [facility] 11-14-2024 Miscellaneous Notes Contract: 198 Sosa calling from [place] with critical results. Call [phone]. Lm for SVETA Pal SVETA Pal called back and was connected to [facility] documented in this encounter [facility] 11-14-2024 Telephone encounter Note Contract: 198 Sosa calling from [place] with critical results. Call [phone]. [facility] 11-14-2024 Telephone encounter Note Lm for SVETA Pal [facility] 11-14-2024 Telephone encounter Note SVETA Pal called back and was connected to Sosa [facility] 10-19-2024 Miscellaneous Notes A user error has taken place: encounter opened in error, closed for administrative reasons. NEW PCP. No longer [facility]. documented in this encounter [facility] 10-19-2024 Telephone encounter Note A user error has taken place: encounter opened in error, closed for administrative reasons. NEW PCP. [facility]. [facility] 10-18-[facility]24 History of Presen t illness Narrative Pt taken down via wheelchair to private car for discharge at this time. Pt belongings in hand. Patient discharged home in stable condition. Discharge instructions and medications reviewed with patient. Educated patient on potential side effects of new medications. Provided education material on hyperglycemia and diabetic diet. All questions answered. Patient left with all belongings. Nutrition Education Educated on Diabetes; carbohydrate servings and nutrition labels. Learners: Patient Readiness: Acceptance Method: Explanation, Demonstration, and Handout Response: Verbalizes Understanding and Demonstrated Understanding Upon f/u pt and culinary intern went over nutrition labels and carbohydrate food list to help pt visualize serving sizes of carbohydrates. Education went over a typical day of eating for the pt and applied it to the foods list. Pt and culinary intern also went over nutrition food labels for carbohydrates using the handout food label as a demonstration. Pt was about to find out how many servings of carbohydrates are present in the food label. Pt accepted handouts, asked further question such as artifical sweeteners, and is planning to apply the food chart to their life. Contact name and number provided. Kaykay Le Contact Number: [phone], VIVIAN at 10/18/2024 12:38 PM EDT ALIE Nicole at bedside and pt not in room. Automotive Light Mechanic notified Switchboard of pt being off the floor. Pt and daughter came off elevator and keno writer explained to pt that she is not allowed to leave the floor. Pt states Oh I didn't, we just went for a walk downstairs. Automotive Light Mechanic asked pt if she went outside to smoke and pt declines but pt smelled like smoke. Jeri supervisor stitching department notified at this time. Automotive Light Mechanic at bedside with Dr. Avila and Karime CHURCH. Dr. Avila notified of pt's low BP of 84/47. Pt complaining of headache. No new orders at this time. Vitals and assessment completed at this time. Patient up in chair, A&Ox4. Patient c/o headache and intermittent L groin pain. Lungs clear, heart sounds normal. No needs at this time. Call light and bedside table in reach. Will continue to monitor. Patient's room picked up and organized. Trash and linen changed. Patient denies any further needs at this time. Call light is within reach, care is ongoing. Automotive Light Mechanic at bedside to complete evening assessment. Upon entry to room, pt awake and in bed, respirations normal and unlabored while on room air. Vitals obtained and assessment completed, see flow sheet for details. Pt denies needs from keno writer at this time. Call light in reach. Care is ongoing. Occupational Therapy Facility/Department: [facility] Occupational Therapy Initial Assessment Name: Anayeli Hidalgo : 1975 Date of Service: 10/17/2024 Discharge Recommendations: Continue to assess pending progress Patient Diagnosis(es): The primary encounter diagnosis was Swelling of both lower extremities. A diagnosis of Edema, unspecified type was also pertinent to this visit. Past Medical History: has a past medical history of Cancer of cervix (HCC), Grave's disease, Neck pain, Non compliance w medication regimen, Pain in left shoulder, and Sjogren's syndrome. Past Surgical History: has a past surgical history that includes section (2003) and Dilation and curettage of uterus (2002). Treatment Diagnosis: weakness Assessment Performance deficits / Impairments: Decreased functional mobility ;Decreased ADL status;Decreased strength;Decreased balance;Decreased endurance;Decreased high-level IADLs;Decreased coordination Assessment: 49 y/o F admitted to [facility] for DM2 with hyperglycemia. Patient presents with generalized weakness and deconditioning, requiring increased need for assist during ADL. Patient would benefit from OT services to address to ensure safe and indep return home. Treatment Diagnosis: weakness Prognosis: Good Decision Making: Medium Complexity REQUIRES OT FOLLOW-UP: Yes Plan Occupational Therapy Plan Times Per Day: Once a day Days Per Week: 7 Days Current Treatment Recommendations: Strengthening, ROM, Balance training, Functional mobility training, Endurance training, Safety education & training, Patient/Caregiver education & training, Equipment evaluation, education, & procurement, Self-Care / ADL, Home management training Restrictions Restrictions/Precautions Restrictions/Precautions: Fall Risk, General Precautions Activity Level: Up with Assist Required Braces or Orthoses?: No Subjective General Patient assessed for rehabilitation services?: Yes Social/Functional History Social/Functional History Lives With: Alone Type of Home: Apartment Home Layout: One level Home Access: Ramped entrance Bathroom Shower/Tub: Tub/Shower unit Bathroom Toilet: Standard Bathroom Accessibility: Accessible Home Equipment: Walker - Rolling Has the patient had two or more falls in the past year or any fall with injury in the past year?: Yes Prior Level of Assist for ADLs: Needs assistance Bath: Supervision Dressing: Independent Prior Level of Assist for Ambulation: Independent household ambulator, with or without device Prior Level of Assist for Transfers: Independent Active Barrel Reamer: Yes Objective Observation/Palpation Posture: Fair Safety Devices Type of Devices: All fall risk precautions in place Restraints Restraints Initially in Place: No AROM: Within functional limits PROM: Within functional limits Strength: Generally decreased, functional Coordination: Generally decreased, functional Tone: Normal Sensation: Intact ADL Feeding: Independent Grooming: Contact guard assistance;Stand by assistance UE Bathing: Stand by assistance LE Bathing: Stand by assistance UE Dressing: Stand by assistance LE Dressing: Stand by assistance Putting On/Taking Off Footwear: Stand by assistance Toileting: Stand by assistance;Contact guard assistance Functional Mobility: Contact guard assistance;Stand by assistance Functional Mobility Skilled Clinical Factors: FWW Additional Comments: CGA/SBA ADL transfers Activity Tolerance Activity Tolerance: Patient tolerated evaluation without incident;Patient limited by fatigue Vision Vision: Impaired Vision Exceptions: Wears glasses for reading Hearing Hearing: Within functional limits Cognition Overall Cognitive Status: WFL Orientation Overall Orientation Status: Within Functional Limits Education Given To: Patient Education Provided: Role of Therapy;Plan of Care Education Method: Verbal Barriers to Learning: None Education Outcome: Verbalized understanding [facility] - ADL [facility] Daily Activity - Inpatient How much help is needed for putting on and taking off regular lower body clothing?: A Little How much help is needed for bathing (which includes washing, rinsing, drying)?: A Little How much help is needed for toileting (which includes using toilet, bedpan, or urinal)?: A Little How much help is needed for putting on and taking off regular upper body clothing?: A Little How much help is needed for taking care of personal grooming?: A Little How much help for eating meals?: None [facility] Inpatient Daily Activity Raw Score: [facility] AD[facility] T-Scale Score : 40.22 ADL Inpatient CMS 0-100% Score: 42.8 ADL Inpatient [facility] G-Code Modifier : CK Goals Short Term Goals Time Frame for Short Term Goals: 21 visits Short Term Goal 1: Patient to be educated on d/c folder, AE/DME and home safety to ensure safe return home. Short Term Goal 2: Patient to engage in 15 minutes of ther ex/ther act to improve strength and activity tolerance for I/ADL upon return home. Short Term Goal 3: Patient to complete ADL routine c mod I to ensure safe and indep return home. Therapy Time Individual Concurrent Group Co-treatment Time In 1335 Time Out 1350 Minutes 15 TIKA Matias Cosigned by Dipti Romero APRN - CNP at 10/17/2024 9:54 PM EDT Physical Therapy Facility/Department: [facility] Physical Therapy Initial Assessment Name: Anayeli Hidalgo : 1975 Date of Service: 10/17/2024 Discharge Recommendations: Continue to assess pending progress, Outpatient PT, Home with Home health PT PT Equipment Recommendations Equipment Needed: Yes Mobility Devices: ADL Assistive Devices ADL Assistive Devices: Shower Chair with back;Toileting - Raised Toilet Seat with arms;Grab Bars - shower Patient Diagnosis(es): The primary encounter diagnosis was Swelling of both lower extremities. A diagnosis of Edema, unspecified type was also pertinent to this visit. Past Medical History: has a past medical history of Cancer of cervix (HCC), Grave's disease, Neck pain, Non compliance w medication regimen, Pain in left shoulder, and Sjogren's syndrome. Past Surgical History: has a past surgical history that includes section (2003) and Dilation and curettage of uterus (2002). Assessment Body Structures, Functions, Activity Limitations Requiring Skilled Therapeutic Intervention: Decreased functional mobility ;Decreased ADL status;Decreased strength;Decreased high-level IADLs;Decreased balance;Decreased endurance;Decreased posture Assessment: The patient is a 49 y.o. female who was admitted due to hyperglycemia. On evaluation she demonstrates LE weakness, decreased activity endurance and impaired balance. She would benefit from skilled PT to address her deficits to improve functional mobility. She reports she needs a toilet riser with arms and a shower chair. Treatment Diagnosis: Generalized weakness, decreased activity endurance Therapy Prognosis: Good Decision Making: Medium Complexity Requires PT Follow-Up: Yes Activity Tolerance Activity Tolerance: Patient tolerated evaluation without incident;Patient limited by fatigue Plan Physical Therapy Plan General Plan: 2 times a day 7 days a week (1x/day on weekends) Current Treatment Recommendations: Strengthening, ROM, Balance training, Transfer training, Functional mobility training, ADL/Self-care training, IADL training, Endurance training, Manual, Neuromuscular re-education, Gait training, Home exercise program, Safety education & training, Patient/Caregiver education & training, Modalities, Positioning, Therapeutic activities Safety Devices Type of Devices: All fall risk precautions in place Restraints Restraints Initially in Place: No Restrictions Restrictions/Precautions Restrictions/Precautions: Fall Risk, General Precautions Activity Level: Up with Assist Required Braces or Orthoses?: No Subjective General Chart Reviewed: Yes Patient assessed for rehabilitation services?: Yes Family/Caregiver Present: No Referring Practitioner: Dipti Romero APRN - CNP Referral Date : 10/16/24 Diagnosis: Type 2 diabetes with hyperglycemia, E11.65 Follows Commands: Within Functional Limits Subjective Subjective: Patient denies pain at this time. Social/Functional History Social/Functional History Lives With: Alone Type of Home: Apartment Home Layout: One level Home Access: Ramped entrance Bathroom Shower/Tub: Tub/Shower unit Bathroom Toilet: Standard Bathroom Accessibility: Accessible Home Equipment: Walker - Rolling Has the patient had two or more falls in the past year or any fall with injury in the past year?: Yes Prior Level of Assist for ADLs: Needs assistance Bath: Supervision Dressing: Independent Prior Level of Assist for Ambulation: Independent household ambulator, with or without device Prior Level of Assist for Transfers: Independent Active Barrel Reamer: Yes Vision/Hearing Vision Vision: Impaired Vision Exceptions: Wears glasses for reading Hearing Hearing: Within functional limits Cognition Orientation Overall Orientation Status: Within Functional Limits Cognition Overall Cognitive Status: WFL Objective Temp: 98.2 F (36.8 C) Pulse: 81 Heart Rate Source: Monitor;Apical Respirations: 16 BP: (!) 89/52 MAP (Calculated): 64 BP Location: Left upper arm BP Method: Automatic Patient Position: Semi fowlers Observation/Palpation Posture: Fair AROM RLE (degrees) RLE AROM: WFL AROM LLE (degrees) LLE AROM : WFL Strength RLE Comment: Grossly 3/5 Strength LLE Comment: Grossly 3/5 Bed mobility Rolling to Right: Stand by assistance Supine to Sit: Stand by assistance Scooting: Stand by assistance Transfers Sit to Stand: Contact guard assistance Stand to Sit: Contact guard assistance Ambulation WB Status: FWB Ambulation Surface: Level tile Device: Rolling Walker Assistance: Contact guard assistance Gait Deviations: Slow Vanessa;Decreased step length;Decreased step height Distance: 15' x2 More Ambulation?: No Stairs/Curb Stairs?: No Balance Posture: Fair Sitting - Static: Good Sitting - Dynamic: Good Standing - Static: Fair Standing - Dynamic: Fair;- AM-PAC - Mobility AM-PAC Mobility without Stair Climbing Inpatient How much difficulty turning over in bed?: None How much difficulty sitting down on / standing up from a chair with arms?: A Little How much difficulty moving from lying on back to sitting on side of bed?: None How much help from another person moving to and from a bed to a chair?: A Little How much help from another person needed to walk in hospital room?: A Little AM-PAC Inpatient Mobility without Stair Climbing Raw Score : 17 AM-PAC Inpatient without Stair Climbing T-Scale Score : 48.47 Mobility Inpatient CMS 0-100% Score: 32.72 Mobility Inpatient without Stair CMS G-Code Modifier : CJ Goals Short Term Goals Time Frame for Short Term Goals: 10 days Short Term Goal 1: Patient will ambulate 50' with FWW, supervision, without LOB Short Term Goal 2: Patient will perform bed mobility tasks and transfers with SC Short Term Goal 3: Patient will tolerate 20-30 minutes of therex/act to improve endurance for ADLs. Patient Goals Patient Goals : Feel better Education Patient Education Education Given To: Patient Education Provided: Role of Therapy;Plan of Care Education Method: Verbal Barriers to Learning: None Education Outcome: Verbalized understanding Therapy Time Individual Concurrent Group Co-treatment Time In 1330 Time Out 1345 Minutes 15 Timed Code Treatment Minutes: 15 Minutes Matthias Fleming PT, DPT, OCS, Cert. DN Cosigned by Dipti Romero APRN - CNP at 10/17/2024 9:53 PM EDT [facility] Inpatient/Observation/Outpatient Rehabilitation Date: 10/17/2024 Patient Name: Anayeli Hidalgo [x] Inpatient Acute/Observation [] Outpatient : 1975 [x] Pt refused/declined therapy at this time due to: Patient reported she was too tired for PT. Therapist/Bakery Decorator will attempt to see this patient, at our earliest opportunity. Matthias Fleming PT, DPT, OCS, Cert. DN Date: 10/17/2024 Cosigned by Dipti Romero APRN - CNP at 10/17/2024 9:53 PM EDT Comprehensive Nutrition Assessment Type and Reason for Visit: Initial Nutrition Recommendations/Plan: Monitor diabetes education knowledge/understanding. Monitor meal intake. Malnutrition Assessment: Malnutrition Status: Moderate malnutrition (10/17/24 1133) Context: Acute Illness Findings of the 6 clinical characteristics of malnutrition: Energy Intake: No decrease in energy intake (Appetite has increased) Weight Loss: Mild weight loss (Last weight recorded was 239 @ 03/19/15) Body Fat Loss: Mild body fat loss Orbital Muscle Mass Loss: Mild muscle mass loss Temples (temporalis), Hand (interosseous), Clavicles (pectoralis & deltoids) Fluid Accumulation: Mild Extremities Respiratory Therapist Strength: Not Performed Nutrition Assessment: Food and nutrition-related knowledge deficit r/t endocrine dysfunction aeb poor intake prior to admission. Pt was told about pre-diabetes diagnosis on 08/30/23 causing them to follow a fasting diet resulting in rapid weight loss. Pt weighed 152 on 08/30/23 and lowered to around 130. Pt expressed they were diagnosis with diabetes last month causing a change to their diet. Diet consisted of carbohydrate counting with low amounts of fat intake. In the chart report pt expressed being around 100# when being admited to the [facility] last week when leaving (around 10/12) pt experienced swelling. Upon abmission to [facility] [place] pt weighed 132# having an increase of 30#. RLE/LLE +3 pitting edema. Edema along with decreased fat in the orbital region and decreased muscle mass in the temples, clavicles, and hands results in a moderate malnutrition digonsis. certified adapted physical educator was in the room going over insulin and pt's diet history. Pt and daughter discussed dietary concerns such as eating juice v. The whole fruit, pairing carbohydrates with protein, and sugar free drinks. Labs evaluated with elevated glucose of 111 decreasing from earlier today (248). Nutrition Related Findings: Active bowel sounds, RLE and LLE +3 pitting edema. Wound Type: None Current Nutrition Intake & Therapies: Average Meal Intake: 76-100% Average Supplements Intake: None Ordered ADULT DIET; Regular; 4 carb choices (60 gm/meal); 2000 ml Anthropometric Measures: Height: 172.7 cm (5' 8 ) [place] Body Weight (IBW): 140 lbs (64 kg) Admission Body Weight: 60.3 kg (132 lb 15 oz) Current Body Weight: 62.9 kg (138 lb 10.7 oz), 99 % IBW. Weight Source: Bed scale Current BMI (kg/m2): 21.1 Usual Body Weight: 59 kg (130 lb) (Pt expressed after fasting diet UBW has been around 130) % Weight Change (Calculated): 6.7 BMI Categories: Normal Weight (BMI 18.5-24.9) Hematology: Recent Labs 10/16/24193410/17/2452910/18/24 0615 WBC 4.7 3.5 4.2 HGB 11.7* 11.3* 11.8* HCT 35.7* 34.7* 36.9 Chemistry: Recent Labs 10/16/24193410/17/2452910/18/24 0615 NA 130* 137 139 K 4.5 3.8 4.0 CL 96* 103 104 CO2 25 26 27 GLUCOSE 567* 248* 98 BUN 22* 15 15 CREATININE 0.8 0.4* 0.4* MG 2.0 -- -- CALCIUM 8.4* 8.2* 8.3* Recent Labs 10/16/24193410/17/2452910/18/24 0615 LABA1C -- 14.3* -- TSH -- -- 3.09 AST 56* 28 44* ALT 49* 34 37* ALKPHOS 153* 104 82 BILITOT <0.2 <0.2 <0.2 No results found for: VITD25 Estimated Daily Nutrient Needs: Energy Requirements Based On: Kcal/kg Weight Used for Energy Requirements: Current Energy (kcal/day): 6195-9456 (33-36 kcal/kg) Weight Used for Protein Requirements: [place] Protein (g/day): 64-77 (1.0-1.2g/kg) Fluid (ml/day): 2000 ml (fluid restriction due to edema) Nutrition Diagnosis: Food & nutrition-related knowledge deficit related to endocrine dysfunction as evidenced by poor intake prior to admission Nutrition Interventions: Food and/or Nutrient Delivery: Continue Current Diet Nutrition Education/Counseling: Education/Counseling initiated Coordination of Nutrition Care: Continue to monitor while inpatient Plan of Care discussed with: pt and daughter Goals: Goals: Meet at least 75% of estimated needs, PO intake 75% or greater Type of Goal: New goal Nutrition Monitoring and Evaluation: Behavioral-Environmental Outcomes: Knowledge or Skill Food/Nutrient Intake Outcomes: Food and Nutrient Intake Physical Signs/Symptoms Outcomes: Biochemical Data, Fluid Status or Edema, Meal Time Behavior, Nutrition Focused Physical Findings Discharge Planning: Continue current diet Kaykay Le Contact: [phone] Cosigned by Derick Grijalva, BRADLEY, LD at 10/18/2024 12:53 PM EDT [facility] Inpatient/Observation/Outpatient Rehabilitation Date: 10/17/2024 Patient Name: Anayeli Hidalgo [x] Inpatient Acute/Observation [] Outpatient : 1975 [x] Pt refused/declined therapy at this time due to: PT evaluation attempted. Patient talking with other hospital personnel and requested therapist to come back at a later time [] Pt cancelled due to: [] No Reason Given [] Sick/ill [] Other: [] Evaluation held by RN/Provider/Physical Therapist due to: [] High Heart Rate [] High Blood Pressure [] Orthopedic Consult [] Hgb < 7 [] Other: [] Pt ordered brace per physician request: [] Proper fit will be completed and education for wearing/skin checks [] Pt does not require skilled services due to: Therapist/Bakery Decorator will attempt to see this patient, at our earliest opportunity. Renu Lim PT, DPT Date: 10/17/2024 Progress Note SUBJECTIVE: Patient seen for f/u of Type 2 diabetes mellitus with hyperglycemia (HCC). She resting in bed with daughter at side. She reported she is not a med taker . She admitted that she did not take the meds that was given last year to her. She says now she has everything written down and following it now. Discussed her sugars and fluid intake ROS: Constitutional: negative for fevers, and negative for chills. Respiratory: negative for shortness of breath, negative for cough, and negative for wheezing Cardiovascular: negative for chest pain, and negative for palpitations Gastrointestinal: negative for abdominal pain, negative for nausea,negative for vomiting, negative for diarrhea, and negative for constipation All other systems were reviewed with the patient and are negative unless otherwise stated in HPI OBJECTIVE: Vitals: Vitals: 10/17/24 0711 BP: (!) 82/55 Pulse: 81 Resp: Temp: SpO2: Weight - Scale: 62.9 kg (138 lb 9.6 oz) Height: 172.7 cm (5' 8 ) Weight Wt Readings from Last 3 Encounters: 10/16/24 62.9 kg (138 lb 9.6 oz) 03/19/15 108.4 kg (239 lb) 05/11/14 118.4 kg (261 lb) Body mass index is 21.07 kg/m . 24HR INTAKE/OUTPUT: Intake/Output Summary (Last 24 hours) at 10/17/2024 1211 Last data filed at 10/17/2024 0838 Gross per 24 hour Intake 1160 ml Output 950 ml Net 210 ml - Exam: GEN: Awake, alert and oriented x3. EYES: EOMI, pupils equal NECK: Supple. No lymphadenopathy. No carotid bruit CVS: regular rate and rhythm, no audible murmur PULM: CTA, no wheezes, rales or rhonchi, no acute respiratory distress ABD: Bowels sounds normal. Abdomen is soft. No distention. no tenderness to palpation. EXT: 2+ edema bilaterally . Feet painful and thighs No calf tenderness. NEURO: Moves all extremities. Motor and sensory are grossly intact SKIN: No rashes. No skin lesions. - Diagnostic Data: Complete Blood Count: Recent Labs 10/16/24193410/17/24 0530 WBC 4.7 3.5 RBC 3.49* 3.42* HGB 11.7* 11.3* HCT 35.7* 34.7* MCV 102.3 101.5 MCH 33.5 33.0 MCHC 32.8 32.6 RDW 13.3 13.5 PLT 238 219 MPV 10.4 10.1 Last 3 Blood Glucose: Recent Labs 10/16/24193410/17/24 0530 GLUCOSE 567* 248* Comprehensive Metabolic Profile: Recent Labs 10/16/24193410/17/24 0530 NA 130* 137 K 4.5 3.8 CL 96* 103 CO2 25 26 BUN 22* 15 CREATININE 0.8 0.4* GLUCOSE 567* 248* CALCIUM 8.4* 8.2* BILITOT <0.2 <0.2 ALKPHOS 153* 104 AST 56* 28 ALT 49* 34 Urinalysis: Lab Results Component Value Date/Time NITRU NEGATIVE 10/17/2024 05:38 AM COLORU Yellow 10/17/2024 05:38 AM PHUR 6.0 10/17/2024 05:38 AM WBCUA 2 TO 5 10/17/2024 05:38 AM RBCUA 0 TO 2 10/17/2024 05:38 AM YEAST PRESENCE NOTED 10/17/2024 05:38 AM BACTERIA 2+ 10/17/2024 05:38 AM LEUKOCYTESUR NEGATIVE 10/17/2024 05:38 AM UROBILINOGEN Normal 10/17/2024 05:38 AM BILIRUBINUR NEGATIVE 10/17/2024 05:38 AM GLUCOSEU 3+ 10/17/2024 05:38 AM KETUA NEGATIVE 10/17/2024 05:38 AM HgBA1c: No results found for: LABA1C Lactic Acid: No results found for: LACTA Troponin: No results for input(s): TROPONINI in the last 72 hours. CRP: No results for input(s): CRP in the last 72 hours. Radiology/Imaging: CTA ABDOMEN PELVIS W CONTRAST Final Result 1. Unremarkable abdominopelvic arteries. No aneurysm or dissection. 2. Moderate diffuse body wall edema which may reflect anasarca. 3. Uterus appears unremarkable as visualized. 4. Probable constipation. 5. Additional findings, as above. ASSESSMENT / PLAN: MEDICAL DECISION MAKING: Primary Problem(s): Type 2 diabetes mellitus with hyperglycemia (HCC) Differential diagnoses: Diabetes insipidus, SIADH Condition is a chronic illness with exacerbation, progression or side effects of treatment Condition is stable Treatment plan: Appreciate Nephrology I&O, daily weights Diabetic diet Fluid restriction POC glucose AC and HS A1c pending Telemetry monitoring Consult software educator Imaging: no further imaging studies ordered today Medications: Continue metformin and glipizide Continue Lantus Humalog sliding scale Hypoglycemia protocol IVL - Sodium back to normal Medication Monitoring / High Risk Medications: none Bilateral lower extremity swelling Condition is stable Treatment plan: Apply Thigh High TEDs Imaging: CTA abdomen and pelvis-negative for any acute findings. Does have moderate diffuse body wall edema possibly anasarca. Uterus unremarkable. No aneurysm or dissection. Medications: IV Lasix x 1 in a.m. Nutrition status: moderate malnutrition Larry Operator consult initiated I/O Daily weight Monitor Daily intake Nutritional Supplements as tolerated MALNUTRITION ASSESSMENT AND PLAN The following was documented by the Dietitian: Malnutrition Assessment Context of Malnutrition: Acute Illness (10/17/24 1133) Acute Illness - Energy Intake : No decrease in energy intake (Appetite has increased) (10/17/241132) Acute Illness - Weight Loss : Mild weight loss (Last weight recorded was 239 @ 03/19/15) (10/17/241132) Acute Illness - Body Fat Loss: Mild body fat loss (10/17/241132) Acute Illness - Body Fat Loss Locations: Orbital (10/17/241132) Acute Illness - Muscle Mass Loss: Moderate muscle mass loss (10/17/241132) Acute Illness - Muscle Mass Loss Location: Temples (temporalis);Hand (interosseous);Clavicles (pectoralis & deltoids) (10/17/241132) Acute Illness - Fluid Accumulation Location: Extremities (10/17/241132) Acute Illness - Respiratory Therapist Strength: Not Performed (10/17/241132) Acute Illness - Malnutrition Score: 8 (10/17/241132) Malnutrition Status: Moderate malnutrition (10/17/241132) I agree with the dietitian's malnutrition assessment. Medical Nutrition Therapy: oral supplements [facility] Prophylaxis: DVT: Lovenox Stress Ulcer: H2 Sae Disposition: Shared decision making: All test results, treatment options and disposition options were discussed with the patient today Social determinants of health that may impact management: none Code status: Full Code Disposition: Discharge plan is pending [facility] Advanced Care Planning documentation: [x] I have confirmed that the patient's Advance Care Plan is present, Code Status is documented, or surrogate decision maker is listed in the patient's medical record [If yes , STOP HERE] [] The patient's Advance Care Plan is NOT present because: [] I confirmed today that the patient does not wish or was not able to name a surrogate decision maker or provide and advance care plan. [] Hospice care is currently being provided or has been provided within the calendar year. [] I did NOT confirm today the presence of an Advance Care Plan or surrogate decision maker documented within the patient's medical record. [DOES NOT SATISFY [facility] PERFORMANCE] PAULO Barnhart CNP , PAULO, CUSTOM SKI MAKER-C [facility] 10/17/2024, 12:11 PM Cosigned by Becky Avila MD at 10/17/2024 5:52 PM EDT Associated attestation - Becky Avila MD - 10/17/2024 5:52 PM EDT Becky Avila M.D. Internal Medicine PA/CUSTOM SKI MAKER Attestation Note Patient: Anayeli Hidalgo Date of Admission: 10/16/2024 7:22 PM Date of Evaluation: 10/17/2024 I personally evaluated and examined the patient [id number] in conjunction with the PA/CUSTOM SKI MAKER and agree with the management and dispostition of the patient. Please see the PA/CUSTOM SKI MAKER's note for full details. My manley findings are: SUBJECTIVE: Anayeli Hidalgo is a 49 y.o. female who was seen today along with Karime Razo CNP for follow up of Type 2 diabetes mellitus with hyperglycemia (HCC). She is feeling better today. She admits to not taking DM meds that were rx'd last year when her A1c was 13.8% because I am not a med taker . However she now claims to understand the importance of medications and is willing to start taking meds. She denies chest pain, palpitations or SOB. She is tolerating diet without any nausea, vomiting or diarrhea. OBJECTIVE: Vitals: Temp: 98.2 F (36.8 C) BP: (!) 89/52 Respirations: 16 Pulse: 81 SpO2: 98 % Weight Wt Readings from Last 3 Encounters: 10/16/24 62.9 kg (138 lb 9.6 oz) 03/19/15 108.4 kg (239 lb) 05/11/14 118.4 kg (261 lb) Body mass index is 21.07 kg/m . 24HR INTAKE/OUTPUT: Intake/Output Summary (Last 24 hours) at 10/17/2024 1751 Last data filed at 10/17/2024 1655 Gross per 24 hour Intake 2020 ml Output 2350 ml Net -330 ml - Exam: GEN: Awake, alert and oriented x 3. EYES: EOMI, pupils equal NECK: Supple. No lymphadenopathy. No carotid bruit CVS: regular rate and rhythm, no audible murmur PULM: CTA, no wheezes, rales or rhonchi, no acute respiratory distress ABD: Bowels sounds normal. Abdomen is soft. No distention. no tenderness to palpation. EXT: 2+ pitting edema bilaterally in feet and hips. Feet and thighs tender to palpation. No calf tenderness. Negative Anny's sign NEURO: Moves all extremities. Motor and sensory are grossly intact SKIN: No rashes. No skin lesions. DATA: Complete Blood Count: Recent Labs 10/16/24193410/17/24 0530 WBC 4.7 3.5 RBC 3.49* 3.42* HGB 11.7* 11.3* HCT 35.7* 34.7* MCV 102.3 101.5 RDW 13.3 13.5 PLT 238 219 Recent Labs 10/16/24193410/17/24 0530 NEUTROABS 2.37 1.26* LYMPHOPCT 34 45* LYMPHSABS 1.57 1.57 MONOPCT 12 14* BASOPCT 1 1 IMMGRAN 0 1* CMP: Recent Labs 10/16/24193410/17/24 0530 NA 130* 137 K 4.5 3.8 CL 96* 103 CO2 25 26 BUN 22* 15 CREATININE 0.8 0.4* GLUCOSE 567* 248* CALCIUM 8.4* 8.2* BILITOT <0.2 <0.2 ALKPHOS 153* 104 AST 56* 28 ALT 49* 34 UA: Lab Results Component Value Date COLORU Yellow 10/17/2024 WBCUA 2 TO 5 10/17/2024 RBCUA 0 TO 2 10/17/2024 LEUKOCYTESUR NEGATIVE 10/17/2024 GLUCOSEU 3+ (A) 10/17/2024 KETUA NEGATIVE 10/17/2024 PROTEINU NEGATIVE 10/17/2024 HGBUR NEGATIVE 10/17/2024 BACTERIA 2+ (A) 10/17/2024 YEAST PRESENCE NOTED (A) 10/17/2024 High Sensitivity Troponin: Recent Labs 10/16/24 1935 TROPHS <6 Microbiology / Cultures: Results No results found for the last 336 hours. Imaging Data: CTA ABDOMEN PELVIS W CONTRAST Result Date: 10/17/2024 EXAMINATION: CTA OF THE ABDOMEN AND PELVIS WITH CONTRAST 10/17/2024 9:37 am: TECHNIQUE: CTA of the abdomen and pelvis was performed with the administration of intravenous contrast. Multiplanar reformatted images are provided for review. MIP images are provided for review. Automated exposure control, iterative reconstruction, and/or weight based adjustment of the mA/kV was utilized to reduce the radiation dose to as low as reasonably achievable. COMPARISON: None. HISTORY: ORDERING SYSTEM PROVIDED HISTORY: leg edema / hx of cervical ca TECHNOLOGIST PROVIDED HISTORY: leg edema / hx of cervical ca Additional Contrast?->1 FINDINGS: CTA ABDOMEN: No abdominal aortic aneurysm or dissection. No significant arterial stenosis, occlusion or abnormal filling defect. Minimal right lower lobe subsegmental atelectasis or scarring. No hydronephrosis or nephrolithiasis. Liver, gallbladder, adrenal glands, pancreas and spleen appear unremarkable. Small hiatal hernia. Probable constipation. No acute obstruction. Normal appendix. No appreciable bowel wall thickening. No free air or drainable fluid collection. Moderate diffuse body wall edema. No acute fracture. CTA PELVIS: No arterial aneurysm or dissection. No significant arterial stenosis, occlusion or abnormal filling defect. Uterus and urinary bladder appear grossly unremarkable. Moderate diffuse body wall edema. No acute fracture. 1. Unremarkable abdominopelvic arteries. No aneurysm or dissection. 2. Moderate diffuse body wall edema which may reflect anasarca. 3. Uterus appears unremarkable as visualized. 4. Probable constipation. 5. Additional findings, as above. ASSESSMENT: Principal Problem: Type 2 diabetes mellitus with hyperglycemia (HCC) Active Problems: Non compliance w medication regimen Anasarca Bilateral lower extremity pitting edema Graves' disease Sjogren's syndrome Hypothyroid Resolved Problems: Swelling of both lower extremities PLAN: I agree with the assessment, plan and medical decision making documentation as outlined by APC: Treatment plan: Consults: Nephrology consult appreciated: Dr. Arrieta's notes reviewed Hyponatremia from hyperglycemia, corrected Na+ normal No evidence of SIADH or diabetes insipidus Diabetic education consult requested Larry Operator consult requested Labs: Monitor BMP, CBC, POC glucose A1c 14.3 Insulin level and C-peptide ordered, pending Urine protein/creatinine ordered to r/o nephrotic syndrome Imaging: CTA abd/pelvis ordered due to BLE pitting edema, assess for possible IVC thrombosis / obstruction = results negative Medications: Continue Metformin, Glipizide and Lantus which were initiated at [facility] during recent admission for hyperglycemia Continue Humalog sliding scale Hypoglycemic protocol in place IV Lasix x 1 ordered for bilateral LE pitting edema Disposition: Discharge plan is pending SHARED APC VISIT, PHYSICIAN ATTESTATION: [id number] I personally performed a substantive part of the MDM during the patient's visit. I personally evaluated and examined the patient. I personally made or approved the documented management plan and acknowledge its risk of complications. Test interpretation: My independent EKG interpretation: Normal sinus rhythm with normal axis and intervals, no ST segment changes My independent imaging interpretation: not applicable Management and/or test interpretation discussed with LYNNETTE Tamayo MD , M.D. 10/17/2024 5:51 PM FSBS [address] ALIE Shipman aware Automotive Light Mechanic at bedside to complete admission assessment, navigator and vital signs. Pt arrived to floor via ER bed. Pt transfered with assistanc3. Shift assessment, vital signs and addmission navigator complete, see flow sheet for details. Pt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 [facility] [place] [place] [address] Phone: tel: fax: [facility] [address] [place] [address] Referral ID Status Reason Start Date Expiration Date Visits Re quested Visits Authorized [id number] Reason Comments New Patient Last seen in Jul. Reason Comments HRT Care Teams (unrecognized sec tion and content) Video Game Animator Relationship Specialty Start Date End Date Office Of Gabe Jolly Md Other [address], [place] [id number] PCP - General 10/29/16 Video Game Animator Relationship Specialty Start Date End Date Office Of Gabe Jolly Md Other [address] [place] [address] PCP - General 10/29/16 Video Game Animator Relationship Specialty Start Date End Date Gomez Green, PROJECT CONTROLS SCHEDULER-SUPPLY ROOM CLERK [address] [place] [address] PCP - General Internal Medicine 08/27/23 Video Game Animator Relationship Specialty Start Date End Date Gomze Green PROJECT CONTROLS SCHEDULER-SUPPLY ROOM CLERK [address] [place] [address] PCP - General Internal Medicine 08/27/23 Video Game Animator Relationship Specialty Start Date End Date Jessy Greeniana Libby PROJECT CONTROLS SCHEDULER-SUPPLY ROOM CLERK [address] [place] [address] PCP - General Internal Medicine 08/27/23 Video Game Animator Relationship Specialty Start Date End Date Norma Gomez Libby PROJECT CONTROLS SCHEDULER-SUPPLY ROOM CLERK [address] [place] [address] PCP - General Internal Medicine 08/27/23 Video Game Animator Relationship Specialty Start Date End Date Gomez Green PROJECT CONTROLS SCHEDULER-SUPPLY ROOM CLERK [address] [place] [address] PCP - General Internal Medicine 08/27/23 Video Game Animator Relationship Specialty Start Date End Date Norma Gomez Souza PROJECT CONTROLS SCHEDULER-SUPPLY ROOM CLERK [address] [place] [address] PCP - General Internal Medicine 08/27/23 Video Game Animator Relationship Specialty Start Date End Date Gomez Green PROJECT CONTROLS SCHEDULER-SUPPLY ROOM CLERK [address] [place] [address] PCP - General Internal Medicine 08/27/23 Video Game Animator Relationship Specialty Start Date End Date Gomez Green PROJECT CONTROLS SCHEDULER - SUPPLY ROOM CLERK [address] [place] [address] PCP - General Family Medicine 10/17/24 Video Game Animator Relationship Specialty Start Date End Date Gomez Green PROJECT CONTROLS SCHEDULER [facility] [address] [place] [address] PCP - General Family Medicine 10/17/24 Video Game Animator Relationship Specialty Start Date End Date NormaJessyGomezniall Souza PROJECT CONTROLS SCHEDULER [facility] [address] [place] [address] PCP - General Family Medicine 10/17/24 Video Game Animator Relationship Specialty Start Date End Date Gomez Green PROJECT CONTROLS SCHEDULER [facility] [address] [place] [address] PCP - General Family Medicine 10/17/24 Video Game Animator Relationship Specialty Start Date End Date Norma Gomez Souza PROJECT CONTROLS SCHEDULER [facility] [address] [place] [address] PCP - General Family Medicine 10/17/24 Video Game Animator Relationship Specialty Start Date End Date Gomez Green PROJECT CONTROLS SCHEDULER [facility] [address] [place] [address] PCP - General Family Medicine 10/17/24 Video Game Animator Relationship Specialty Start Date End Date Gomez Green PROJECT CONTROLS SCHEDULER SUPPLY ROOM CLERK [address] [place] [address] PCP - General Family Medicine 10/17/24 Video Game Animator Relationship Specialty Start Date End Date Shelley Goldberg MD [address] [place] [address] PCP - General 12/21/24 Video Game Animator Relationship Specialty Start Date End Date Shelley Goldberg MD [address] [place] [address] PCP - General 12/21/24 Video Game Animator Relationship Specialty Start Date End Date Shelley Goldberg MD [address] [place] [address] PCP - General 12/21/24 Video Game Animator Relationship Specialty Start Date End Date Office Of Gabe Jolly Md [facility] [address] [place] [address] PCP - General 10/29/16 Video Game Animator Relationship Specialty Start Date End Date Ashlyn Rosa MD [address] [place] [address] PCP - General Family Medicine 01/10/25 Video Game Animator Relationship Specialty Start Date End Date Ashlyn Rosa MD [address] [place] [address] PCP - General Family Medicine 01/10/25 Video Game Animator Relationship Specialty Start Date End Date Ashlyn Rosa MD [address] [place] [address] PCP - General Family Medicine 01/10/25 Video Game Animator Relationship Specialty Start Date End Date Shelley Goldberg MD [address] [place] [address] PCP - General 12/21/24 Video Game Animator Relationship Specialty Start Date End Date Ashlyn Rosa MD [address] [place] [address] PCP - General Family Medicine 01/10/25 INFORMATION SOURCE (unrecogn ized section and content) DATE CREATED AUTHOR 10/20/2022 [facility] DATE CREATED AUTHOR AUTHOR'S ORGANIZ ATION 10/15/2023 [facility] DATE CREATED AUTHOR AUTHOR'S ORGANIZ ATION 01/14/2025 [facility] DATE CREATED AUTHOR AUTHOR'S ORGANIZ ATION 02/01/2025 [facility] DATE CREATED AUTHOR AUTHOR'S ORGANIZ ATION 02/03/2025 [facility] DATE CREATED AUTHOR AUTHOR'S ORGANIZ ATION 02/11/2025 [facility] Ordered Prescriptions (unrec ognized section and content) Prescription Sig Dispense Quantity Refills Last Filled Start Date End Date Insulin Syringes, Disposable, U-100 1 ML MISC 1 each by Does not apply route daily 100 each 10/18/2024 levothyroxine (SYNTHROID) 75 MCG tablet Take 1 tablet by mouth Daily 30 tablet 10/19/2024 5 potassium chloride (KLOR-CON M) 20 MEQ extended release tablet Take 1 tablet by mouth daily (with breakfast) 30 tablet 10/19/2024 5 furosemide (LASIX) 40 MG tablet Take 1 tablet by mouth daily 30 tablet 10/19/2024 5 insulin glargine (LANTUS) 100 UNIT/ML injection vial Inject 25 Units into the skin 2 times daily 10 mL 10/18/2024 metFORMIN (GLUCOPHAGE) 500 MG tablet Take 1 tablet by mouth Daily with supper 30 tablet 10/18/2024 5 insulin regular (HUMULIN R;NOVOLIN R) 100 UNIT/ML injection Inject 25 Units into the skin 2 times daily (before meals) 10 mL 10/18/2024 glipiZIDE (GLUCOTROL) 5 MG tablet Take 0.5 tablets by mouth every morning 15 tablet 10/18/2024 Prescription Sig Dispense Quantity Refills Last Filled Start Date End Date insulin glargine (LANTUS) 100 UNIT/ML injection vial Inject 40 Units into the skin daily States 40-50 10 mL 12/21/2024 Scheduled Active and Recently Administ ered Medications (unrecognized section and content) Medication Order 10/16/2024 10/17/2024 10/18/2024 enoxaparin (LOVENOX) injection 40 mg 40 mg, SubCUTAneous, DAILY, First dose on Wed10/17/24 at 0900, Until Discontinued, Indication of Use: Prophylaxis-DVT/PE 0833 (Given - Provider: Rupali Denney RN) 0909 (Given - Provider: Bonnie Aguilera RN) famotidine (PEPCID) tablet 20 mg 20 mg, Oral, 2 TIMES DAILY, First dose on Wed10/16/24 at 2315, Until Discontinued 233 (Given - Provider: Ursula Kate RN) 0832 (Given - Provider: Rupali Denney RN)2049 (Given - Provider: Ramonita Da Silva RN) 09 (Given - Provider: Bonnie Aguilera, ALIE)2100 (Due) furosemide (LASIX) injection 20 mg (COMPLETED) 20 mg, IntraVENous, ONCE, 1 dose, On Wed10/16/24 at 1945 2005 (Given - Provider: Zohreh Ledezma RN) furosemide (LASIX) injection 20 mg (COMPLETED) 20 mg, IntraVENous, ONCE, 1 dose, On Wed10/17/24 at 0900 0833 (Given - Provider: Rupali Denney RN) furosemide (LASIX) tablet 40 mg 40 mg, Oral, DAILY, First dose on Wed10/18/24 at 0915, Until Discontinued 09 (Given - Provider: Bonnie Aguilera RN) glipiZIDE (GLUCOTROL) tablet 2.5 mg 2.5 mg, Oral, EVERY MORNING, First dose on Wed10/17/24 at 0900, Until Discontinued 0832 (Given - Provider: Rupali Denney RN) 0908 (Given - Provider: Bonnie Aguilera RN) insulin glargine (LANTUS) injection vial 25 Units 25 Units, SubCUTAneous, 2 TIMES DAILY, First dose on Wed10/16/24 at 2315, Until Discontinued 2333 (Given - Provider: Ursula Kate RN) 0833 (Given - Provider: Rupali Denney RN)2050 (Given - Provider: Ramonita Da Silva RN) 09 (Given - Provider: Bonnie Aguilera, ALIE)2100 (Due) insulin lispro (HUMALOG,ADMELOG) injection vial 0-8 Units 0-8 Units, SubCUTAneous, 4 TIMES DAILY BEFORE MEALS & NIGHTLY, First dose on Wed10/16/24 at 2315, Until Discontinued, Medium Dose Corrective Algorithm Glucose: Dose: 70-179 No Insulin 180-249 2 Units 250-299 4 Units 300-349 6 Units Over 349 8 Units and notify physician Administer as soon as possible within 60 minutes of last blood glucose check 2333 (Given - Provider: Ursula Kate RN) 0700 (Not Given - Provider: Rupali Denney RN - Reason: Order parameters not met)1109 (Not Given - Provider: Rupali Denney RN - Reason: Order parameters not met)1644 (Given - Provider: Rupali Denney RN)205 (Not Given - Provider: Ramonita Da Silva RN - Reason: Order parameters not met - Comment: 119) 0740 (Not Given - Provider: Bonnie Aguilera RN - Reason: Order parameters not met)1220 (Given - Provider: Bonnie Aguilera RN)1700 (Due)2100 (Due) levothyroxine (SYNTHROID) tablet 75 mcg 75 mcg, Oral, DAILY, First dose on Wed10/17/24 at 0945, Until Discontinued, Tube feeding (TF) interaction, obtain physician order to manage, recommend holding TF for 30 minutes before and after dose. 1114 (Given - Provider: Rupali Denney RN) 0908 (Given - Provider: Bonnie Aguilera, RN) metFORMIN (GLUCOPHAGE) tablet 500 mg 500 mg, Oral, EVERY MORNING, First dose on Wed10/17/24 at 0900, Until Discontinued 0832 (Given - Provider: Rupali Denney RN) 907 (Given - Provider: Bonnie Aguilera, ALIE) metroNIDAZOLE (FLAGYL) tablet 250 mg 250 mg, Oral, 2 TIMES DAILY, 6 doses, First dose on Wed10/17/24 at 0945, Last dose on Wed10/19/24 at 1400, Antimicrobial Indications: Other, Other Abx Indication: trich 1000 (Not Given - Provider: Rupali Denney RN - Reason: Other - Comment: patient took her own medication from home)1644 (Given - Provider: Rupali Denney RN) 0908 (Given - Provider: Bonnie Aguilera, ALIE)1352 (Given - Provider: Bonnie Aguilera, RN) nicotine (NICODERM CQ) 21 MG/24HR 1 patch 1 patch, TransDERmal, Administer over 24 Hours, DAILY, First dose on Wed10/17/24 at 1700, Apply new patch to nonhairy, clean, dry skin on the upper body or upper outer arm. Rotate patch sites. Notify pharmacy if patient or provider prefers patch to be removed at bedtime and replaced in the morning. Hazardous Medication -- Refer to facility policy for handling and disposal. 1644 (Patch Applied - Provider: Rupali Denney RN) 0907 (Patch Removed - Provider: Bonnie Aguilera RN)0909 (Patch Applied - Provider: Bonnie Aguilera RN) potassium chloride (KLOR-CON M) extended release tablet 20 mEq 20 mEq, Oral, DAILY WITH BREAKFAST, First dose on Wed10/18/24 at 0915, Until Discontinued, Do not crush, chew, or suck on tablet. Tablet may also be broken in half and each half swallowed separately. 0913 (Given - Provider: Bonnie Aguilera RN) sodium chloride flush 0.9 % injection 10 mL 10 mL, IntraVENous, EVERY 12 HOURS SCHEDULED (2 times per day), First dose on Wed10/16/24 at 2315, Until Discontinued 2334 (Given - Provider: Ursula Kate RN) 0833 (Given - Provider: Rupali Denney RN)2051 (Given - Provider: Ramonita Da Silva RN) 0909 (Given - Provider: Bonnie Aguilera, ALIE)2100 (Due) Continuous Medication Order 10/16/2024 10/17/2024 10/18/2024 0.9 % sodium chloride infusion (CANCELED) IntraVENous, at 50 mL/hr, CONTINUOUS, Starting on Wed10/17/24 at 0200 0208 (New Bag - Provider: Ursula Kate RN) 1315 (Stopped - Provider: Bonnie Aguilera RN - Comment: not running, unknown when stopped) PRN Medication Order 10/16/2024 10/17/2024 10/18/2024 0.9 % sodium chloride infusion IntraVENous, at 5-250 mL/hr, PRN, if patient receiving piggyback infusions and maintenance fluids are not ordered OR KVO fluids to protect IV site / prevent frequent line interruptions/ long duration, Starting on Wed10/16/24 at 2249, For piggyback infusion, administer at same rate as piggyback for a total of 25 mL. Enter 25 mL into dose field and piggyback rate into rate field of order. If piggyback is infusing at a rate less than 100 mL/hr, enter 25 mL into dose field and 100 mL/hr into rate field of order. For KVO fluids, enter rate of 20 mL/hr or less into rate field of order. acetaminophen (TYLENOL) suppository 650 mg(Linked Group 1) 650 mg, Rectal, EVERY 6 HOURS PRN, Starting on Wed10/16/24 at 2249, Until Discontinued, Pain Mild (1-3), allowed for higher pain score per patient request, Fever, For temp greater than 100.4 F (38 C), Administer if oral route cannot be used. 1114 (See Alternative - Provider: Rupali Denney RN) 09 (See Alternative - Provider: Bonnie Aguilera RN) acetaminophen (TYLENOL) tablet 650 mg(Linked Group 1) 650 mg, Oral, EVERY 6 HOURS PRN, Starting on Wed10/16/24 at 2249, Until Discontinued, Pain Mild (1-3), allowed for higher pain score per patient request, Fever, For temp greater than 100.4 F (38 C), Maximum dose of acetaminophen is 4000 mg from all sources in 24 hours. 1114 (Given - Provider: Rupali Denney RN) 09 (Given - Provider: Bonnie Aguilera, ALIE) iopamidol (ISOVUE-370) 76 % injection 75 mL (COMPLETED) 75 mL, IntraVENous, IMG ONCE PRN, 1 dose, Starting on Wed10/17/24 at 0935, Until Wed10/17/24 at 0952, Other 0952 (Given - Provider: Virginia Gomez) ondansetron (ZOFRAN) injection 4 mg(Linked Group 2) 4 mg, IntraVENous, EVERY 6 HOURS PRN, Starting on Wed10/16/24 at 2249, Until Discontinued, Nausea, Vomiting, Administer if oral route cannot be used. ondansetron (ZOFRAN-ODT) disintegrating tablet 4 mg(Linked Group 2) 4 mg, Oral, EVERY 8 HOURS PRN, Starting on Wed10/16/24 at 2249, Until Discontinued, Nausea, Vomiting polyethylene glycol (GLYCOLAX) packet 17 g 17 g, Oral, DAILY PRN, Starting on Wed10/16/24 at 2249, Until Discontinued, Constipation, First line therapy for constipation potassium bicarb-citric acid (EFFER-K) effervescent tablet 40 mEq(Linked Group 3) 40 mEq, Oral, PRN, Starting on Wed10/16/24 at 2249, Until Discontinued, Per Potassium Replacement Protocol, Administer as alternative if patient unable to tolerate oral tablet. K Lab Replacement Action 3.1 to 3.5 40 mEq ORAL x 1 Under 3.1 Refer to IV replacement protocol Recheck K level in AM. Protocol not for use in patients with CrCl less than 30 mL/min. Do not chew or crush. Dissolve flavored tablets completely in 3 to 4 ounces of cold water; unflavored tablets may be dissolved in 3 to 4 ounces of cold juice. Patient to sip slowly over a 5 to 10 minute period. May further dilute if GI adverse effects occur. potassium chloride (KLOR-CON M) extended release tablet 40 mEq(Linked Group 3) 40 mEq, Oral, PRN, Starting on Wed10/16/24 at 2249, Until Discontinued, Potassium Replacement, May give alternative linked oral order (ordered as effervescent, packet, or liquid solution) if patient unable to tolerate tablet. K Lab Replacement Action 3.1 to 3.5 40 mEq ORAL x 1 Under 3.1 Refer to IV replacement protocol Recheck K level in AM. Protocol not for use in patients with CrCl less than 30 mL/min. Do not crush, chew, or suck on tablet. Tablet may also be broken in half and each half swallowed separately. potassium chloride 10 mEq/100 mL IVPB (Peripheral Line)(Linked Group 3) 10 mEq, IntraVENous, PRN, Starting on Wed10/16/24 at 2249, Until Discontinued, at 100 mL/hr, Potassium Replacement, K Lab Replacement Action 2.7 to 3.0 10 mEq IVPB x 6 doses (60 mEq Total) Under 2.7 CALL PROVIDER and administer 10 mEq IVPB x 6 doses (60 mEq Total) Infuse at 10 mEq/hr. Repeat Potassium lab 1 hour after final administration. Protocol not for use in patients with CrCl less than 30 mL/min. sodium chloride flush 0.9 % injection 10 mL 10 mL, IntraVENous, PRN, Starting on Wed10/16/24 at 2249, Until Discontinued, Line Care, After every IV line use Linked Groups Order Group 1: acetaminophen (TYLENOL) tablet 650 mgJump to med 650 mg, Oral, EVERY 6 HOURS PRN, Starting on Wed10/16/24 at 2249, Until Discontinued, Pain Mild (1-3), allowed for higher pain score per patient request, Fever, For temp greater than 100.4 F (38 C), Maximum dose of acetaminophen is 4000 mg from all sources in 24 hours. Or acetaminophen (TYLENOL) suppository 650 mgJump to med 650 mg, Rectal, EVERY 6 HOURS PRN, Starting on Wed10/16/24 at 2249, Until Discontinued, Pain Mild (1-3), allowed for higher pain score per patient request, Fever, For temp greater than 100.4 F (38 C), Administer if oral route cannot be used. Group 2: ondansetron (ZOFRAN-ODT) disintegrating tablet 4 mgJump to med 4 mg, Oral, EVERY 8 HOURS PRN, Starting on Wed10/16/24 at 2249, Until Discontinued, Nausea, Vomiting Or ondansetron (ZOFRAN) injection 4 mgJump to med 4 mg, IntraVENous, EVERY 6 HOURS PRN, Starting on Wed10/16/24 at 2249, Until Discontinued, Nausea, Vomiting, Administer if oral route cannot be used. Group 3: potassium chloride (KLOR-CON M) extended release tablet 40 mEqJump to med 40 mEq, Oral, PRN, Starting on Wed10/16/24 at 2249, Until Discontinued, Potassium Replacement, May give alternative linked oral order (ordered as effervescent, packet, or liquid solution) if patient unable to tolerate tablet. K Lab Replacement Action 3.1 to 3.5 40 mEq ORAL x 1 Under 3.1 Refer to IV replacement protocol Recheck K level in AM. Protocol not for use in patients with CrCl less than 30 mL/min. Do not crush, chew, or suck on tablet. Tablet may also be broken in half and each half swallowed separately. Or potassium bicarb-citric acid (EFFER-K) effervescent tablet 40 mEqJump to med 40 mEq, Oral, PRN, Starting on 10/16/24 at 2249, Until Discontinued, Per Potassium Replacement Protocol, Administer as alternative if patient unable to tolerate oral tablet. K Lab Replacement Action 3.1 to 3.5 40 mEq ORAL x 1 Under 3.1 Refer to IV replacement protocol Recheck K level in AM. Protocol not for use in patients with CrCl less than 30 mL/min. Do not chew or crush. Dissolve flavored tablets completely in 3 to 4 ounces of cold water; unflavored tablets may be dissolved in 3 to 4 ounces of cold juice. Patient to sip slowly over a 5 to 10 minute period. May further dilute if GI adverse effects occur. Or potassium chloride 10 mEq/100 mL IVPB (Peripheral Line)Jump to med 10 mEq, IntraVENous, PRN, Starting on Wed10/16/24 at 2249, Until Discontinued, at 100 mL/hr, Potassium Replacement, K Lab Replacement Action 2.7 to 3.0 10 mEq IVPB x 6 doses (60 mEq Total) Under 2.7 CALL PROVIDER and administer 10 mEq IVPB x 6 doses (60 mEq Total) Infuse at 10 mEq/hr. Repeat Potassium lab 1 hour after final administration. Protocol not for use in patients with CrCl less than 30 mL/min. Scheduled Medication Order 12/19/2024 12/20/2024 12/21/2024 dulaglutide (TRULICITY) SC injection 0.75 mg (Patient Supplied) 0.75 mg, SubCUTAneous, WEEKLY, First dose (after last modification) on Wed12/24/24 at 0900, Until Discontinued, On Sundays Patient using own home medications empagliflozin (JARDIANCE) tablet 10 mg 10 mg, Oral, DAILY, First dose on Susy 12/21/24 at 0900, Until Discontinued, Indication of Use: Type 2 diabetes, Note: Discontinuation of SGLT2 inhibitor therapy 3 days prior to surgery or major procedures is recommended given the risk for euglycemic diabetic ketoacidosis. 0945 (Given - Provid er: Radha Barajas RN) enoxaparin (LOVENOX) injection 40 mg 40 mg, SubCUTAneous, DAILY, First dose on Wed12/21/24 at 0900, Until Discontinued, Indication of Use: Prophylaxis-DVT/PE 0948 (Not Given - Provider: Radha Barajas RN - Reason: Patient/family refused) famotidine (PEPCID) tablet 20 mg 20 mg, Oral, 2 TIMES DAILY, First dose on Wed12/21/24 at 0145, Until Discontinued 0150 (Given - Provid er: Maura Nice RN)0947 (Given - Provider: Radha Barajas RN)2100 (Due) furosemide (LASIX) tablet 40 mg 40 mg, Oral, DAILY, First dose on Wed12/21/24 at 0900, Until Discontinued 946 (Not Given - Provider: Radha Barajas RN - Reason: Patient/family refused) glipiZIDE (GLUCOTROL) tablet 2.5 mg 2.5 mg, Oral, EVERY MORNING, First dose on Wed12/21/24 at 0900, Until Discontinued 946 (Not Given - Provider: Radha Barajas RN - Reason: Patient/family refused) insulin glargine (LANTUS) injection vial 40 Units 40 Units, SubCUTAneous, DAILY, First dose on Wed12/21/24 at 0145, Until Discontinued 149 (Given - Provid er: Maura Nice RN) insulin lispro (HUMALOG,ADMELOG) injection vial 20 Units (COMPLETED) 20 Units, SubCUTAneous, ONCE, 1 dose, On Wed12/20/24 at 2115 2110 (Given - Provider: Alanis Carter RN) levothyroxine (SYNTHROID) tablet 75 mcg 75 mcg, Oral, DAILY, First dose on Wed12/21/24 at 0700, Until Discontinued, Tube feeding (TF) interaction, obtain physician order to manage, recommend holding TF for 30 minutes before and after dose. 0945 (Not Given - Provider: Radha Barajas RN - Reason: Patient/family refused - Comment: pt states was instructed by PCP not to take) nicotine (NICODERM CQ) 21 MG/24HR 1 patch 1 patch, TransDERmal, Administer over 24 Hours, EVERY 24 HOURS, First dose on Wed12/21/24 at 0145, Apply new patch to nonhairy, clean, dry skin on the upper body or upper outer arm. Rotate patch sites. Notify pharmacy if patient or provider prefers patch to be removed at bedtime and replaced in the morning. Hazardous Medication -- Refer to facility policy for handling and disposal. 0133 (Not Given - Provider: Maura Nice RN - Reason: Other - Comment: notified pharmacy to change to morning)0945 (Patch Applied - Provider: Radha Barajas, RN) sodium chloride 0.9 % bolus 1,000 mL (COMPLETED) 1,000 mL, IntraVENous, at 495.9 mL/hr, Administer over 121 Minutes, ONCE, On Wed12/20/24 at 1945, For 1 dose 194 (New Bag - Provider: Alanis Carter, RN)2108 (Stopped - Provider: Alanis Carter, RN) sodium chloride 0.9 % bolus 1,000 mL (COMPLETED) 1,000 mL, IntraVENous, at 495.9 mL/hr, Administer over 121 Minutes, ONCE, On Wed12/20/24 at 2115, For 1 dose 2109 (New Bag - Provider: Alanis Carter, RN) 013 (Stopped - Provider: Maura Nice RN - Comment: [facility]) sodium chloride flush 0.9 % injection 10 mL 10 mL, IntraVENous, EVERY 12 HOURS SCHEDULED (2 times per day), First dose on Susy 12/21/24 at 0900, Until Discontinued 0948 (Not Given - Provider: Radha Barajas RN - Reason: IV Fluid Infusing)2100 (Due) Continuous Medication Order 12/19/2024 12/20/2024 12/21/2024 0.9 % sodium chloride infusion (CANCELED) IntraVENous, at 100 mL/hr, CONTINUOUS, Starting on Susy 12/21/24 at 0145, For 24 hours, Complete last bag that is running at 24 hours and then saline lock IV 0145 (New Bag - Prov ider: Maura Nice RN)0953 (Stopped - Provider: Radha Barajas, RN) PRN Medication Order 12/19/2024 12/20/2024 12/21/2024 0.9 % sodium chloride infusion IntraVENous, at 5-250 mL/hr, PRN, if patient receiving piggyback infusions and maintenance fluids are not ordered OR KVO fluids to protect IV site / prevent frequent line interruptions/ long duration, Starting on Susy 12/21/24 at 0115, For piggyback infusion, administer at same rate as piggyback for a total of 25 mL. Enter 25 mL into dose field and piggyback rate into rate field of order. If piggyback is infusing at a rate less than 100 mL/hr, enter 25 mL into dose field and 100 mL/hr into rate field of order. For KVO fluids, enter rate of 20 mL/hr or less into rate field of order. acetaminophen (TYLENOL) suppository 650 mg(Linked Group 1) 650 mg, Rectal, EVERY 6 HOURS PRN, Starting on Wed12/21/24 at 0115, Until Discontinued, Pain Mild (1-3), allowed for higher pain score per patient request, Fever, For temp greater than 100.4 F (38 C), Administer if oral route cannot be used. acetaminophen (TYLENOL) tablet 650 mg(Linked Group 1) 650 mg, Oral, EVERY 6 HOURS PRN, Starting on Wed12/21/24 at 0115, Until Discontinued, Pain Mild (1-3), allowed for higher pain score per patient request, Fever, For temp greater than 100.4 F (38 C), Maximum dose of acetaminophen is 4000 mg from all sources in 24 hours. iopamidol (ISOVUE-370) 76 % injection 75 mL (COMPLETED) 75 mL, IntraVENous, IMG ONCE PRN, 1 dose, Starting on Wed12/20/24 at 1933, Until Wed12/20/24 at 2039, Other 2039 (Given - Provider: Adi Ferrer) ondansetron (ZOFRAN) injection 4 mg(Linked Group 2) 4 mg, IntraVENous, EVERY 6 HOURS PRN, Starting on Wed12/21/24 at 0115, Until Discontinued, Nausea, Vomiting, Administer if oral route cannot be used. ondansetron (ZOFRAN-ODT) disintegrating tablet 4 mg(Linked Group 2) 4 mg, Oral, EVERY 8 HOURS PRN, Starting on Wed12/21/24 at 0115, Until Discontinued, Nausea, Vomiting polyethylene glycol (GLYCOLAX) packet 17 g 17 g, Oral, DAILY PRN, Starting on Wed12/21/24 at 0115, Until Discontinued, Constipation, First line therapy for constipation potassium bicarb-citric acid (EFFER-K) effervescent tablet 40 mEq(Linked Group 3) 40 mEq, Oral, PRN, Starting on Susy 12/21/24 at 0115, Until Discontinued, Per Potassium Replacement Protocol, Administer as alternative if patient unable to tolerate oral tablet. K Lab Replacement Action 3.1 to 3.5 40 mEq ORAL x 1 Under 3.1 Refer to IV replacement protocol Recheck K level in AM. Protocol not for use in patients with CrCl less than 30 mL/min. Do not chew or crush. Dissolve flavored tablets completely in 3 to 4 ounces of cold water; unflavored tablets may be dissolved in 3 to 4 ounces of cold juice. Patient to sip slowly over a 5 to 10 minute period. May further dilute if GI adverse effects occur. potassium chloride (KLOR-CON M) extended release tablet 40 mEq(Linked Group 3) 40 mEq, Oral, PRN, Starting on Susy 12/21/24 at 0115, Until Discontinued, Potassium Replacement, May give alternative linked oral order (ordered as effervescent, packet, or liquid solution) if patient unable to tolerate tablet. K Lab Replacement Action 3.1 to 3.5 40 mEq ORAL x 1 Under 3.1 Refer to IV replacement protocol Recheck K level in AM. Protocol not for use in patients with CrCl less than 30 mL/min. Do not crush, chew, or suck on tablet. Tablet may also be broken in half and each half swallowed separately. potassium chloride 10 mEq/100 mL IVPB (Peripheral Line)(Linked Group 3) 10 mEq, IntraVENous, PRN, Starting on Susy 12/21/24 at 0115, Until Discontinued, at 100 mL/hr, Potassium Replacement, K Lab Replacement Action 2.7 to 3.0 10 mEq IVPB x 6 doses (60 mEq Total) Under 2.7 CALL PROVIDER and administer 10 mEq IVPB x 6 doses (60 mEq Total) Infuse at 10 mEq/hr. Repeat Potassium lab 1 hour after final administration. Protocol not for use in patients with CrCl less than 30 mL/min. sodium chloride flush 0.9 % injection 10 mL 10 mL, IntraVENous, PRN, Starting on Susy 12/21/24 at 0115, Until Discontinued, Line Care, After every IV line use Linked Groups Order Group 1: acetaminophen (TYLENOL) tablet 650 mgJump to med 650 mg, Oral, EVERY 6 HOURS PRN, Starting on Susy 12/21/24 at 0115, Until Discontinued, Pain Mild (1-3), allowed for higher pain score per patient request, Fever, For temp greater than 100.4 F (38 C), Maximum dose of acetaminophen is 4000 mg from all sources in 24 hours. Or acetaminophen (TYLENOL) suppository 650 mgJump to med 650 mg, Rectal, EVERY 6 HOURS PRN, Starting on Susy 12/21/24 at 0115, Until Discontinued, Pain Mild (1-3), allowed for higher pain score per patient request, Fever, For temp greater than 100.4 F (38 C), Administer if oral route cannot be used. Group 2: ondansetron (ZOFRAN-ODT) disintegrating tablet 4 mgJump to med 4 mg, Oral, EVERY 8 HOURS PRN, Starting on Susy 12/21/24 at 0115, Until Discontinued, Nausea, Vomiting Or ondansetron (ZOFRAN) injection 4 mgJump to med 4 mg, IntraVENous, EVERY 6 HOURS PRN, Starting on Susy 12/21/24 at 0115, Until Discontinued, Nausea, Vomiting, Administer if oral route cannot be used. Group 3: potassium chloride (KLOR-CON M) extended release tablet 40 mEqJump to med 40 mEq, Oral, PRN, Starting on Susy 12/21/24 at 0115, Until Discontinued, Potassium Replacement, May give alternative linked oral order (ordered as effervescent, packet, or liquid solution) if patient unable to tolerate tablet. K Lab Replacement Action 3.1 to 3.5 40 mEq ORAL x 1 Under 3.1 Refer to IV replacement protocol Recheck K level in AM. Protocol not for use in patients with CrCl less than 30 mL/min. Do not crush, chew, or suck on tablet. Tablet may also be broken in half and each half swallowed separately. Or potassium bicarb-citric acid (EFFER-K) effervescent tablet 40 mEqJump to med 40 mEq, Oral, PRN, Starting on Susy 12/21/24 at 0115, Until Discontinued, Per Potassium Replacement Protocol, Administer as alternative if patient unable to tolerate oral tablet. K Lab Replacement Action 3.1 to 3.5 40 mEq ORAL x 1 Under 3.1 Refer to IV replacement protocol Recheck K level in AM. Protocol not for use in patients with CrCl less than 30 mL/min. Do not chew or crush. Dissolve flavored tablets completely in 3 to 4 ounces of cold water; unflavored tablets may be dissolved in 3 to 4 ounces of cold juice. Patient to sip slowly over a 5 to 10 minute period. May further dilute if GI adverse effects occur. Or potassium chloride 10 mEq/100 mL IVPB (Peripheral Line)Jump to med 10 mEq, IntraVENous, PRN, Starting on Susy 12/21/24 at 0115, Until Discontinued, at 100 mL/hr, Potassium Replacement, K Lab Replacement Action 2.7 to 3.0 10 mEq IVPB x 6 doses (60 mEq Total) Under 2.7 CALL PROVIDER and administer 10 mEq IVPB x 6 doses (60 mEq Total) Infuse at 10 mEq/hr. Repeat Potassium lab 1 hour after final administration. Protocol not for use in patients with CrCl less than 30 mL/min. FOR RECORDS PERTAINING TO PATIENTS WHO ARE [...] BE BASED ON THE PRIMARY CLINICAL RECORDS. [employer] provides no warranty or guarantee of the accuracy or completeness of information in this document.
--- NOTE | 2025-03-07 20:02 | XR_ITS ---
The [address] [address] Patient Name: JUMA HIRSCH MRN: [id number] date: 1975 Sex: F Assigned Patient Location: ER Current Patient Location: ER Accession/Order Number: [id number] Exam Date: 03/07/2025 20:25 Report Date: 03/07/2025 21:00 At the request of: SOLEDAD NUNES Procedure: XR chest 1V Plain film chest Single view HISTORY: Chest pain COMPARISON: 10/15/2024 FINDINGS: SUPPORT DEVICES: None POSTSURGICAL CHANGES: None HEART: Within normal limits PULMONARY JING: Within normal limits MEDIASTINUM: Unremarkable LUNGS AND PLEURA: No acute lung process, pleural effusion or pneumothorax identified. BONY STRUCTURES: Intact ADDITIONAL FINDINGS None XR/XR chest 1V IMPRESSION: No acute process. Impression dictated by: Chas Viera M.D. 03/07/2025 9:00 PM Dictation Location: [place] [address] Electronically authenticated by: [id number] Y Date: 03/07/2025 21:00
--- NOTE | 2025-03-07 20:02 | ECG_ITS ---
The [facility] Test Date: 2025-03-07 Pat Name: JUMA HIRSCH Department: Room: - Gender: Female [employer]: : [id number] Requested By: [id number] Order Number: [id number] Reading MD: RADHA PARKER Measurements Intervals [place] Rate: 90 P: 63 AL: 156 QRS: 98 QRSD: 86 T: 57 QT: 390 QTc: 437 Interpretive Statements 1100 Sinus rhythm 7102 Moderate right axis deviation 9110 normal ECG Compared to ECG 10/15/2024 06:21:38 Right-axis deviation now present Electronically Signed On 03-08-2025 16:02:32 EDT by RADHA PARKER
--- NOTE | 2025-03-07 20:12 | PC.NURSE ---
chest pain x3 days no hx cardiac disease chest pain has been increasing in intensity, today is the worst also having heart burn today Hx of DMII, has been out of her insulin x1 week
--- NOTE | 2025-03-07 20:12 | ED.GENADUL1 ---
Documented by User: MANJU Pastor 03/07/25 22:08 HPI HPI - General Adult General Chief complaint: Chest Pain Stated complaint: CHEST PAIN Time Seen by Provider: 03/07/25 19:55 Source: patient Mode of arrival: ambulance Limitations: no limitations History of Present Illness HPI narrative: Patient is a 49-year-old female who presents to the emergency department via EMS with complaints of 3 days of chest pain/heaviness and fatigue. She denies shortness of breath or abdominal pain. She has had some jaw pain that started a day after the chest pain started that is bilateral around her TMJ. She denies any radiating pain or numbness/tingling into her extremities. She has a past medical history of type 2 diabetes and is supposed to be on insulin per her but has not been very compliant with this as she has been out of it for a week, she denies other medical history. She was hospitalized for acute hyperglycemia in October and has had a home health nurse coming to her house since to check on her she states that her home health nurse urged her to get evaluated after her visit and called EMS. En route she was given Zofran and IVF. Related Data Home Medications ?Medication ?Instructions ?Recorded ?Confirmed dulaglutide 0.75 mg/0.5 mL mg subcut 03/07/25 subcutaneous pen injector (Trulicity) empagliflozin 10 mg tablet mg 03/07/25 (Jardiance) Previous Rx's ?Medication ?Instructions ?Recorded insulin human U-100 NPH-regulr 25 unit (0.25 mL) subcut BID 30 10/11/24 70-30 mix 100 unit/mL subcutaneous days #15 mL susp (Novolin 70/30 U-100 Insulin) Allergies Allergy/AdvReac Type Severity Reaction Status Date / Time No Known Drug Allergies Allergy Verified 03/07/25 19:53 Opioid HPI Opioid Management Most Recent Opioid Data: Last Pain Scale 1 10/11/24, 11:10 Last ORT Total Score 1 10/10/24, 01:14 Last ORT Risk Category Low Risk 10/10/24, 01:14 Ur Phencyclidine Scrn, (NEGATIVE) Negative 10/09/24, 20:02 Review of Systems ROS Status of ROS 10 or more systems reviewed and unremarkable except as noted in history and below PFSH PFS Medical History (Updated 03/07/25 @ 22:08 by MANJU Pastor) Twin delivery by ?O30.009 - Twin , unspecified number of placenta and unspecified number of amniotic sacs, unspecified trimester (ICD-10) delivery delivered ?O82 - Encounter for delivery without indication (ICD-10) Smoker ?F17.200 - Nicotine dependence, unspecified, uncomplicated (ICD-10) Weight loss, unintentional ?R63.4 - Abnormal weight loss (ICD-10) Sjogren syndrome ?M35.00 - Sjogren syndrome, unspecified (ICD-10) Diabetes ?E11.9 - Type 2 diabetes mellitus without complications (ICD-10) Family History Mother Family history of diabetes mellitus Family history of myocardial infarction Family history of stroke Unknown Family history of hypertension Social History Within the past year, how often did you have a drink containing alcohol: monthly or less Smoking status: Light tobacco smoker Non-prescribed substance use: denies use Previous occupational history: [employer] Known occupational exposures/hazards: No Highest level of school completed/degree received: high school graduate Are you now , , , , never or living with a partner: Little interest or pleasure in doing things: not at all Feeling down, depressed, or hopeless: not at all Do you think of yourself as: straight/heterosexual Gender Identity: female Exam Narrative Exam Narrative: General: No distress, age-appropriate Skin: Warm, dry, no pallor. No rash. Head: Normocephalic, atraumatic. Neck: Supple, non-tender. Eye: Pupils are equal, round and EOMI. No scleral icterus. Ears, Nose, Mouth, and Throat: No nasal mucosal hypertrophy. Oral mucosa is moist, no posterior oropharynx erythema, uvula is mid-line Cardiovascular: Regular Rate and Rhythm without murmur, gallop or rub. Respiratory: No accessory muscle use or respiratory distress. Lungs are clear to auscultation, no wheezing, rales or rhonchi Chest Wall: no tenderness Back: No midline thoracic or lumbar vertebral tenderness. Musculoskeletal: Full ROM of all extremities, no calf or popliteal tenderness GI: Abdomen is soft, non-distended, non tender to palpation. No masses appreciated. No rebound, guarding, or rigidity noted. Neurological: A&O x4. No cranial nerve dysfunction observed. No truncal ataxia. Moves all extremities. Sensation intact. Psychiatric: Cooperative and interactive. Normal mood and affect. Constitutional Vital Signs, click to edit/add: Last Vital Signs Temp 98.5 F 03/07/25 19:49 Pulse 92 H 03/07/25 19:49 Resp 16 03/07/25 19:49 BP 114/60 03/07/25 19:49 Pulse Ox 99 03/07/25 19:49 O2 Del Method Room Air 03/07/25 19:49 Course Vital Signs Vital signs: Vital Signs Temperature 98.5 F 03/07/25 19:49 Pulse Rate 92 H 03/07/25 19:49 Respiratory Rate 16 03/07/25 19:49 Blood Pressure 114/60 03/07/25 19:49 Pulse Oximetry 99 03/07/25 19:49 Oxygen Delivery Method Room Air 03/07/25 19:49 Temperature 98.5 F 03/07/25 19:49 Pulse Rate 92 H 03/07/25 19:49 Respiratory Rate 16 03/07/25 19:49 Blood Pressure 114/60 03/07/25 19:49 Pulse Oximetry 99 03/07/25 19:49 Oxygen Delivery Method Room Air 03/07/25 19:49 Medical Decision Making MDM Narrative Medical decision making narrative: 49 yr old female that presented to the emergency department via EMS after a home health visit from her nurse who was concerned about her chest pain and fatigue x 3 days. She is a type II diabetic and has been out of her insulin for about a week. She denied shortness of breath, abdominal pain, extremity swelling, radiating pain, extremity paresthesias. She was given Zofran 4mg en route via EMS and started in IVF. Patient appears uncomfortable on arrival but in no distress laying on the ED cart. She is non toxic appearing. IVF continued and labs drawn. EKG NSR, no ST elevation. Trop negative. CXR negative for acute pathology. Anion gap 27.1. Urine Ketones > 80. Glucose 422 on BMP, Insulin drip started. Ketones and VBS ordered. Patient updated with results and that she will need admission to the hospital. Hospitalist paged at [phone]. Labs and accepting physician pending. I did speak with Dr Mcallister who will accept the patient. She has gotten a liter NS, another liter has been ordered. At this time, 0, patient was signed out to Dr Aldana. Differential Diagnosis Differential Diagnosis: ACS, DKA Lab Data Labs: Lab Results 03/07/25 03/07/25 03/07/25 Range/Units 20:00 21:15 21:47 WBC 5.4 (4.0-11.0) 10^3/uL RBC 4.88 (4.20-5.40) 10^6/uL Hgb 14.5 (12.0-16.0) g/dL Hct 42.8 (36.0-48.0) % MCV 87.7 (81.0-99.0) fL MCH 29.7 (26.7-34.0) pg MCHC 33.9 (29.9-35.2) g/dL RDW 13.4 (11.0-15.0) % Plt Count 315 (150-450) 10^3/uL MPV 9.9 (9.5-13.5) fL Neut % (Auto) 48.5 (43.0-75.0) % Lymph % (Auto) 41.6 (20.5-60.0) % Stokes % (Auto) 5.5 (1.7-12.0) % Eos % (Auto) 3.1 (0.9-7.0) % Baso % (Auto) 0.9 (0.2-2.0) % Neut # (Auto) 2.6 (1.4-6.5) 10^3/uL Lymph # (Auto) 2.3 (1.2-3.8) 10^3/uL Stokes # (Auto) 0.3 (0.3-0.8) 10^3/uL Eos # (Auto) 0.2 (0.0-0.7) 10^3/uL Baso # (Auto) 0.1 (0.0-0.1) 10^3/uL Abs Immat Gran (auto) 0.02 (0.00-0.03) 10^3/uL Imm/Tot Granulo (auto) 0.4 (0.0-0.5) % VBG pH 7.269 L (7.330-7.430) VBG pCO2 29.5 L (40.0-52.0) mmHg Sodium 133 L (136-145) mmol/L Potassium 3.9 (3.5-5.1) mmol/L Chloride 99 (98-107) mmol/L Carbon Dioxide 10.8 L (21.0-32.0) mmol/L Anion Gap 27.1 BUN 9.0 (7.0-18.0) mg/dL Creatinine 0.71 (0.55-1.02) mg/dL Est GFR ( Amer) >60 (>=60 mL/min/1.73m^2) Est GFR (Non-Af Amer) >60 (>=60 mL/min/1.73m^2) BUN/Creatinine Ratio 12.7 Glucose 422 H (74-106) mg/dL Calcium 8.2 L (8.5-10.1) mg/dL Troponin I High Sens 4.4 (4.0-51.3) pg/mL Urine Color Lt. yellow (YELLOW) Urine Clarity Clear (CLEAR) Urine pH 5.5 (5.0-9.0) Ur Specific [place] >=1.030 A (1.005-1.025) Urine Protein Negative (NEG/TRACE) mg/dL Urine Glucose (UA) Negative (NEGATIVE) mg/dL Urine Ketones >=80 A (NEGATIVE) mg/dL Urine Occult Blood Negative (NEGATIVE) Urine Nitrite Negative (NEGATIVE) Urine Bilirubin Negative (NEGATIVE) Urine Urobilinogen 0.2 (0.2-1.0) EU/dL Ur Leukocyte Esterase Negative (NEGATIVE) Acetone, Qual Small A (NEGATIVE) POC Glucose (74-106) mg/dL 03/07/25 Range/Units 22:07 WBC (4.0-11.0) 10^3/uL RBC (4.20-5.40) 10^6/uL Hgb (12.0-16.0) g/dL Hct (36.0-48.0) % MCV (81.0-99.0) fL MCH (26.7-34.0) pg MCHC (29.9-35.2) g/dL RDW (11.0-15.0) % Plt Count (150-450) 10^3/uL MPV (9.5-13.5) fL Neut % (Auto) (43.0-75.0) % Lymph % (Auto) (20.5-60.0) % Stokes % (Auto) (1.7-12.0) % Eos % (Auto) (0.9-7.0) % Baso % (Auto) (0.2-2.0) % Neut # (Auto) (1.4-6.5) 10^3/uL Lymph # (Auto) (1.2-3.8) 10^3/uL Stokes # (Auto) (0.3-0.8) 10^3/uL Eos # (Auto) (0.0-0.7) 10^3/uL Baso # (Auto) (0.0-0.1) 10^3/uL Abs Immat Gran (auto) (0.00-0.03) 10^3/uL Imm/Tot Granulo (auto) (0.0-0.5) % VBG pH (7.330-7.430) VBG pCO2 (40.0-52.0) mmHg Sodium (136-145) mmol/L Potassium (3.5-5.1) mmol/L Chloride (98-107) mmol/L Carbon Dioxide (21.0-32.0) mmol/L Anion Gap BUN (7.0-18.0) mg/dL Creatinine (0.55-1.02) mg/dL Est GFR ( Amer) (>=60 mL/min/1.73m^2) Est GFR (Non-Af Amer) (>=60 mL/min/1.73m^2) BUN/Creatinine Ratio Glucose (74-106) mg/dL Calcium (8.5-10.1) mg/dL Troponin I High Sens (4.0-51.3) pg/mL Urine Color (YELLOW) Urine Clarity (CLEAR) Urine pH (5.0-9.0) Ur Specific [place] (1.005-1.025) Urine Protein (NEG/TRACE) mg/dL Urine Glucose (UA) (NEGATIVE) mg/dL Urine Ketones (NEGATIVE) mg/dL Urine Occult Blood (NEGATIVE) Urine Nitrite (NEGATIVE) Urine Bilirubin (NEGATIVE) Urine Urobilinogen (0.2-1.0) EU/dL Ur Leukocyte Esterase (NEGATIVE) Acetone, Qual (NEGATIVE) POC Glucose 315 H (74-106) mg/dL Imaging Data Chest x-ray: Attestation: I have reviewed the pertinent imaging results. Radiologist's impression: ITS Impressions Chest X-Ray 03/07/25 20:02 IMPRESSION: No acute process. Impression dictated by: Chas Viera M.D. 03/07/2025 9:00 PM Dictation Location: [place] [address] Electronically authenticated by: [id number] Y Date: 03/07/2025 21:00 ECG Data Attestation: ?I have reviewed the pertinent ECG results. Discharge Plan Discharge Chief Complaint: Chest Pain Clinical Impression: DKA (diabetic ketoacidosis) Patient Disposition: Admitted As Inpatient Time of Disposition Decision: 22:08 Condition: Fair Documented by User: Corrine Aldana MD 03/07/25 22:20 HPI HPI - General Adult General Chief complaint: Chest Pain Stated complaint: CHEST PAIN Time Seen by Provider: 03/07/25 19:55 Related Data Home Medications ?Medication ?Instructions ?Recorded ?Confirmed dulaglutide 0.75 mg/0.5 mL mg subcut 03/07/25 subcutaneous pen injector (Trulicity) empagliflozin 10 mg tablet mg 03/07/25 (Jardiance) Previous Rx's ?Medication ?Instructions ?Recorded insulin human U-100 NPH-regulr 25 unit (0.25 mL) subcut BID 30 10/11/24 70-30 mix 100 unit/mL subcutaneous days #15 mL susp (Novolin 70/30 U-100 Insulin) Allergies Allergy/AdvReac Type Severity Reaction Status Date / Time No Known Drug Allergies Allergy Verified 03/07/25 19:53 Opioid HPI Opioid Management Most Recent Opioid Data: Last Pain Scale 1 10/11/24, 11:10 Last ORT Total Score 1 10/10/24, 01:14 Last ORT Risk Category Low Risk 10/10/24, 01:14 Ur Phencyclidine Scrn, (NEGATIVE) Negative 10/09/24, 20:02 [facility] Medical History (Updated 03/07/25 @ 22:08 by MANJU Pastor) Twin delivery by ?O30.009 - Twin , unspecified number of placenta and unspecified number of amniotic sacs, unspecified trimester (ICD-10) delivery delivered ?O82 - Encounter for delivery without indication (ICD-10) Smoker ?F17.200 - Nicotine dependence, unspecified, uncomplicated (ICD-10) Weight loss, unintentional ?R63.4 - Abnormal weight loss (ICD-10) Sjogren syndrome ?M35.00 - Sjogren syndrome, unspecified (ICD-10) Diabetes ?E11.9 - Type 2 diabetes mellitus without complications (ICD-10) Family History Mother Family history of diabetes mellitus Family history of myocardial infarction Family history of stroke Unknown Family history of hypertension Social History Within the past year, how often did you have a drink containing alcohol: monthly or less Smoking status: Light tobacco smoker Non-prescribed substance use: denies use Previous occupational history: [employer] Known occupational exposures/hazards: No Highest level of school completed/degree received: high school graduate Are you now , , , , never or living with a partner: Little interest or pleasure in doing things: not at all Feeling down, depressed, or hopeless: not at all Do you think of yourself as: straight/heterosexual Gender Identity: female Exam Constitutional Vital Signs, click to edit/add: Last Vital Signs Temp 98.5 F 03/07/25 19:49 Pulse 92 H 03/07/25 19:49 Resp 16 03/07/25 19:49 BP 114/60 03/07/25 19:49 Pulse Ox 99 03/07/25 19:49 O2 Del Method Room Air 03/07/25 19:49 Course Vital Signs Vital signs: Vital Signs Temperature 98.5 F 03/07/25 19:49 Pulse Rate 92 H 03/07/25 19:49 Respiratory Rate 16 03/07/25 19:49 Blood Pressure 114/60 03/07/25 19:49 Pulse Oximetry 99 03/07/25 19:49 Oxygen Delivery Method Room Air 03/07/25 19:49 Temperature 98.5 F 03/07/25 19:49 Pulse Rate 92 H 03/07/25 19:49 Respiratory Rate 16 03/07/25 19:49 Blood Pressure 114/60 03/07/25 19:49 Pulse Oximetry 99 03/07/25 19:49 Oxygen Delivery Method Room Air 03/07/25 19:49 Medical Decision Making MDM Narrative Medical decision making narrative: 49 yr old female that presented to the emergency department via EMS after a home health visit from her nurse who was concerned about her chest pain and fatigue x 3 days. She is a type II diabetic and has been out of her insulin for about a week. She denied shortness of breath, abdominal pain, extremity swelling, radiating pain, extremity paresthesias. She was given Zofran 4mg en route via EMS and started in IVF. Patient appears uncomfortable on arrival but in no distress laying on the ED cart. She is non toxic appearing. IVF continued and labs drawn. EKG NSR, no ST elevation. Trop negative. CXR negative for acute pathology. Anion gap 27.1. Urine Ketones > 80. Glucose 422 on BMP, Insulin drip started. Ketones and VBS ordered. Patient updated with results and that she will need admission to the hospital. Hospitalist paged at [phone]. Labs and accepting physician pending. I did speak with Dr Mcallister who will accept the patient. She has gotten a liter NS, another liter has been ordered. This patient was seen and evaluated conjunction with the physician procurement assistant. Please refer to her H&P. She presents for evaluation of generalized chest pain. The patient was sent to the emergency department by home health care nurse that was evaluating her. The patient admits that she has been out of her insulin for about 1 week. Upon arrival an EKG was ordered that was reviewed by myself and shows a sinus rhythm with right axis deviation and no acute findings. An IV was placed and cardiac workup was ordered. She does have an elevated glucose at 422 and a low CO2 at 10.2. Ketones were small, blood gas was ordered that was a metabolic acidosis with a pH of 7.269. Anion gap is 27. She has a normal white count and stable hemoglobin. BUN and creatinine are stable at this time. She received IV fluids and an insulin drip was started at 3 units/h. The case was discussed with the hospitalist and she is excepted for admission to [facility] Medical Records Medical records reviewed: Yes I reviewed the patient's medical records Lab Data Lab results reviewed: Yes I reviewed the patient's lab results Labs: Lab Results 03/07/25 03/07/25 03/07/25 Range/Units 20:00 21:15 21:47 WBC 5.4 (4.0-11.0) 10^3/uL RBC 4.88 (4.20-5.40) 10^6/uL Hgb 14.5 (12.0-16.0) g/dL Hct 42.8 (36.0-48.0) % MCV 87.7 (81.0-99.0) fL MCH 29.7 (26.7-34.0) pg MCHC 33.9 (29.9-35.2) g/dL RDW 13.4 (11.0-15.0) % Plt Count 315 (150-450) 10^3/uL MPV 9.9 (9.5-13.5) fL Neut % (Auto) 48.5 (43.0-75.0) % Lymph % (Auto) 41.6 (20.5-60.0) % Stokes % (Auto) 5.5 (1.7-12.0) % Eos % (Auto) 3.1 (0.9-7.0) % Baso % (Auto) 0.9 (0.2-2.0) % Neut # (Auto) 2.6 (1.4-6.5) 10^3/uL Lymph # (Auto) 2.3 (1.2-3.8) 10^3/uL Stokes # (Auto) 0.3 (0.3-0.8) 10^3/uL Eos # (Auto) 0.2 (0.0-0.7) 10^3/uL Baso # (Auto) 0.1 (0.0-0.1) 10^3/uL Abs Immat Gran (auto) 0.02 (0.00-0.03) 10^3/uL Imm/Tot Granulo (auto) 0.4 (0.0-0.5) % VBG pH 7.269 L (7.330-7.430) VBG pCO2 29.5 L (40.0-52.0) mmHg Sodium 133 L (136-145) mmol/L Potassium 3.9 (3.5-5.1) mmol/L Chloride 99 (98-107) mmol/L Carbon Dioxide 10.8 L (21.0-32.0) mmol/L Anion Gap 27.1 BUN 9.0 (7.0-18.0) mg/dL Creatinine 0.71 (0.55-1.02) mg/dL Est GFR ( Amer) >60 (>=60 mL/min/1.73m^2) Est GFR (Non-Af Amer) >60 (>=60 mL/min/1.73m^2) BUN/Creatinine Ratio 12.7 Glucose 422 H (74-106) mg/dL Calcium 8.2 L (8.5-10.1) mg/dL Troponin I High Sens 4.4 (4.0-51.3) pg/mL Urine Color Lt. yellow (YELLOW) Urine Clarity Clear (CLEAR) Urine pH 5.5 (5.0-9.0) Ur Specific [place] >=1.030 A (1.005-1.025) Urine Protein Negative (NEG/TRACE) mg/dL Urine Glucose (UA) Negative (NEGATIVE) mg/dL Urine Ketones >=80 A (NEGATIVE) mg/dL Urine Occult Blood Negative (NEGATIVE) Urine Nitrite Negative (NEGATIVE) Urine Bilirubin Negative (NEGATIVE) Urine Urobilinogen 0.2 (0.2-1.0) EU/dL Ur Leukocyte Esterase Negative (NEGATIVE) Acetone, Qual Small A (NEGATIVE) POC Glucose (74-106) mg/dL 03/07/25 Range/Units 22:07 WBC (4.0-11.0) 10^3/uL RBC (4.20-5.40) 10^6/uL Hgb (12.0-16.0) g/dL Hct (36.0-48.0) % MCV (81.0-99.0) fL MCH (26.7-34.0) pg MCHC (29.9-35.2) g/dL RDW (11.0-15.0) % Plt Count (150-450) 10^3/uL MPV (9.5-13.5) fL Neut % (Auto) (43.0-75.0) % Lymph % (Auto) (20.5-60.0) % Stokes % (Auto) (1.7-12.0) % Eos % (Auto) (0.9-7.0) % Baso % (Auto) (0.2-2.0) % Neut # (Auto) (1.4-6.5) 10^3/uL Lymph # (Auto) (1.2-3.8) 10^3/uL Stokes # (Auto) (0.3-0.8) 10^3/uL Eos # (Auto) (0.0-0.7) 10^3/uL Baso # (Auto) (0.0-0.1) 10^3/uL Abs Immat Gran (auto) (0.00-0.03) 10^3/uL Imm/Tot Granulo (auto) (0.0-0.5) % VBG pH (7.330-7.430) VBG pCO2 (40.0-52.0) mmHg Sodium (136-145) mmol/L Potassium (3.5-5.1) mmol/L Chloride (98-107) mmol/L Carbon Dioxide (21.0-32.0) mmol/L Anion Gap BUN (7.0-18.0) mg/dL Creatinine (0.55-1.02) mg/dL Est GFR ( Amer) (>=60 mL/min/1.73m^2) Est GFR (Non-Af Amer) (>=60 mL/min/1.73m^2) BUN/Creatinine Ratio Glucose (74-106) mg/dL Calcium (8.5-10.1) mg/dL Troponin I High Sens (4.0-51.3) pg/mL Urine Color (YELLOW) Urine Clarity (CLEAR) Urine pH (5.0-9.0) Ur Specific [place] (1.005-1.025) Urine Protein (NEG/TRACE) mg/dL Urine Glucose (UA) (NEGATIVE) mg/dL Urine Ketones (NEGATIVE) mg/dL Urine Occult Blood (NEGATIVE) Urine Nitrite (NEGATIVE) Urine Bilirubin (NEGATIVE) Urine Urobilinogen (0.2-1.0) EU/dL Ur Leukocyte Esterase (NEGATIVE) Acetone, Qual (NEGATIVE) POC Glucose 315 H (74-106) mg/dL Imaging Data Chest x-ray: Radiologist's impression: ITS Impressions Chest X-Ray 03/07/25 20:02 IMPRESSION: No acute process. Impression dictated by: Chas Viera M.D. 03/07/2025 9:00 PM Dictation Location: [email or web address] Electronically authenticated by: [id number] Y Date: 03/07/2025 21:00 ECG Data Attestation: I personally reviewed and interpreted this ECG as follows: (Sinus rhythm at 90 bpm with a right axis deviation, no acute ST segment elevation or T wave inversion) Critical Care Time Critical Care Time Critical Care Time: Yes Total Critical Care Time: 35 Attestation: Due to this patient's presentation with chest pain and history of diabetes and the high probability of sudden and clinically significant deterioration in her condition she required the highest level of my preparedness to intervene urgently. I provided critical care time including documentation time medication orders and management, reevaluation, vital sign assessment, ordering reviewing of lab tests ordering reviewing of x-ray studies and admission orders. She has found to be in DKA with an insulin drip required. Critical care time is 35 minutes including only time during which I was engaged in her care and did not include time spent treating other patients simultaneously Discharge Plan Discharge Chief Complaint: Chest Pain Clinical Impression: DKA (diabetic ketoacidosis) Patient Disposition: Admitted As Inpatient Time of Disposition Decision: 22:08 Condition: Fair
[2025-03-07 20:16] LABS: Hematocrit 42.8 % (36.0-48.0); Hemoglobin 14.5 g/dL (12.0-16.0); Immature Granulocytes Abs Auto 0.02 10^3/uL (0.00-0.03); Immature Granulocytes Pct Auto 0.4 % (0.0-0.5); Lymphocytes Absolute Auto 2.3 10^3/uL (1.2-3.8); Mean Corpuscular HGB Conc 33.9 g/dL (29.9-35.2); Mean Corpuscular Hemoglobin 29.7 pg (26.7-34.0); Mean Corpuscular Volume 87.7 fL (81.0-99.0); Platelet Count 315 10^3/uL (150-450); Red Blood Count 4.88 10^6/uL (4.20-5.40); White Blood Count 5.4 10^3/uL (4.0-11.0)
[2025-03-07 20:35] LABS: Anion Gap 27.1; Blood Urea Nitrogen 9.0 mg/dL (7.0-18.0); Calcium 8.2 mg/dL (8.5-10.1); Carbon Dioxide 10.8 mmol/L (21.0-32.0); Chloride 99 mmol/L (98-107); Estimated GFR (African America >60 (>=60 mL/min/1.73m^2); Estimated GFR (Non-African Ame >60 (>=60 mL/min/1.73m^2); Glucose 422 mg/dL (74-106); Potassium 3.9 mmol/L (3.5-5.1); Sodium 133 mmol/L (136-145)
[2025-03-07 21:32] LABS: Glucose Urine UA NEGATIVE (NEGATIVE)
[2025-03-07 21:58] LABS: PCO2 VBG 29.5 mmHg (40.0-52.0); pH VBG 7.269 (7.330-7.430)
[2025-03-07] MEDS: INSULIN REGULAR IN 0.9 % NACL 100 UNIT/100 ML PLAST..BAG IV (22:05)
[2025-03-07] MEDS: 0.9 % SODIUM CHLORIDE 1,000 ML 1000 ML IV (22:12)
[2025-03-07] MEDS: FAMOTIDINE/PF 20 MG/2 ML VIAL IV (22:36)
[2025-03-08] VITALS (18 sets, daily range): BP systolic 94–119; BP diastolic 56–69; PULSE 67–88; TEMP 35.9–36.7; O2SAT 95–98; BMI 25.4
--- OUTSIDE RECORDS SUMMARY | 2025-03-08 00:08 | XMS_ITS | CCD ---
Author Organization [facility] Inform ion [facility] Care Team Providers Care Director Of Special Events Name Role Phone Office Of Gabe Jolly Md Other Primary Car e Provider Lenora Whitehead Unavailable [facility], DR TRAMMELL Primary Care Unavailable MARKER ., [...] NORMA, GOMEZ L Primary Care Unavailable Norma VOLLEYBALL COMMENTATOR-SUBSTATION MECHANIC, Gomez L Primary Care Provider Norma VOLLEYBALL COMMENTATOR - SUBSTATION MECHANIC, Gomez L Primary Care Provider Unavailable Primary [...] aftercare (6 sources) Patient encounter status; 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: [penitentiary (current) use of non-steroidal anti-inflammatories (NSAID)] Onset: [...] (3 sources) Drug therapy finding; 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: [Other gravity meter operator (current) drug therapy] Onset: 7 Resolved: 7 11-12-2016 Episodic Other aftercare (1 source) 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 KAILEE FERNANDEZ M.D. Normal [facility] Comment on above: Performed By: #### I NSU #### [address] [place] [address] Unarmed Security Officer: Gee Royal MD [facility] [address] [place] [address] Unarmed Security Officer: Loreta Zelaya MD #### CPEP #### [address] [address] Unarmed Security Officer: Gee Royal MD Albumin [Mass/Vol] 4.1 g/dL Normal 3.2-5.2 [facility] Comment on above: Performed By: #### I NSU #### [address] [address] Unarmed Security Officer: Gee Royal MD [facility] [address] [place] [address] [place], [place] [id number] Unarmed Security Officer: Loreta Zelaya MD #### CPEP #### [address] [address] Unarmed Security Officer: Gee Royal MD Albumin, % 58 % Normal 56-66 [facility] Comment on above: Performed By: #### I NSU #### [address] [address] Unarmed Security Officer: Gee Royal MD [facility] [address] [place] [address] [place] [address] Unarmed Security Officer: Loreta Zelaya MD #### CPEP #### [address] [address] Unarmed Security Officer: Gee Royal MD Nfgvc-5-uesccdxko 0.3 g/dL Normal 0.1-0.4 [facility] Comment on above: Performed By: #### I NSU #### [address] [address] Unarmed Security Officer: Gee Royal MD [facility] [address] [place] [address] [place] [address] Unarmed Security Officer: Loreta Zelaya MD #### CPEP #### [address] [address] Unarmed Security Officer: Gee Royal MD Ueqmd-7-vikadhtnv,% 4 % Normal 3-5 [facility] Comment on above: Performed By: #### I NSU #### [address] [address] Unarmed Security Officer: Gee Royal MD [facility] [address] [place] [address] [place], [place] [id number] Unarmed Security Officer: Loreta Zelaya MD #### CPEP #### [address] [address] Unarmed Security Officer: Gee Royal MD Qsiex-8-ulsdvejvi 0.7 g/dL Normal 0.5-0.9 [facility] Comment on above: Performed By: #### I NSU #### [address] [address] Unarmed Security Officer: Gee Royal MD [facility] [address] [place] [address] [place] [address] Unarmed Security Officer: Loreta Zelaya MD #### CPEP #### [address] [address] Unarmed Security Officer: Gee Royal MD Zijzz-8-dyiapcgts,% 10 % Normal 7-12 [facility] Comment on above: Performed By: #### I NSU #### [address] [address] Unarmed Security Officer: Gee Royal MD [facility] [address] [place] [address] [place], [place] [id number] Unarmed Security Officer: Loreta Zelaya MD #### CPEP #### [address] [address] Unarmed Security Officer: Gee Royal MD Beta-globulins 0.9 g/dL Normal 0.7-1.4 [facility] Comment on above: Performed By: #### I NSU #### [address] [address] Unarmed Security Officer: Gee Royal MD [facility] [address] [place] [address] Unarmed Security Officer: Loreta Zelaya MD #### CPEP #### [facility] [address] [place] [address] Unarmed Security Officer: Gee Royal MD Beta-globulins,% 13 % Normal 8-13 [facility] Comment on above: Performed By: #### I NSU #### [address] [address] Unarmed Security Officer: Gee Royal MD [facility] [address] [place] [address] [place], [place] [id number] Unarmed Security Officer: Loreta Zelaya MD #### CPEP #### [address] [address] Unarmed Security Officer: Gee Royal MD Gamma-globulins 1.1 g/dL Normal 0.5-1.5 [facility] Comment on above: Performed By: #### I NSU #### [address] [address] Unarmed Security Officer: Gee Royal MD [facility] [address] [place] [address] [place] [address] Unarmed Security Officer: Loreta Zelaya MD #### CPEP #### [address] [address] Unarmed Security Officer: Gee Royal MD Gamma-globulins,% 15 % Normal 11-19 [facility] Comment on above: Performed By: #### I NSU #### [address] [address] Unarmed Security Officer: Gee Royal MD [facility] [address] [place] [address] Unarmed Security Officer: Loreta Zelaya MD #### CPEP #### [address] [address] Unarmed Security Officer: Gee Royal MD Prot. Elect-Interp Normal electrophoretic pattern. Normal [facility] Comment on above: Performed By: #### I NSU #### [address] [address] Unarmed Security Officer: Gee Royal MD [address] [place] [address] Unarmed Security Officer: Loreta Zelaya MD #### CPEP #### [address] [address] Unarmed Security Officer: Gee Royal MD Total Prot. Sum 7.1 g/dL Normal 6.3-8.2 [facility] Comment on above: Performed By: #### I NSU #### [address] [address] Unarmed Security Officer: Gee Royal MD [address] [place] [id number] Unarmed Security Officer: Loreta Zelaya MD #### CPEP #### [address] [address] Unarmed Security Officer: Gee Royal MD Total Prot. Sum,% 100 % Normal 98-102 [facility] Comment on above: Performed By: #### I NSU #### [address] [address] Unarmed Security Officer: Gee Royal MD [address] [place] [address] Unarmed Security Officer: Loreta Zelaya MD #### CPEP #### [address] [address] Unarmed Security Officer: Gee Royal MD B12/Folate Panelon 5 Cobalamin (Vitamin B12) [Mass/Vol] 391 pg/mL Normal 232-1245 [facility] Comment on above: Performed By: #### B MP #### [facility] [address] [place] [address] Unarmed Security Officer: Loreta Zelaya MD Folic Acid 37.3 ng/mL High 4.8-24.2 [facility] Comment on above: Performed By: #### B MP #### [facility] [address] [place] [address] Unarmed Security Officer: Loreta Zelaya MD CBCon 02-08-2025 Erythrocyte distribution width (RBC) [Ratio] 13.3 % 11.8 - 14.4 % [facility] Hematocrit (Bld) [Volume fraction] 44.9 % 36.3 - 47.1 % [facility] Hemoglobin (Bld) [Mass/Vol] 14.9 g/dL 11.9 - 15.1 g/dL [facility] Interpretation and review of laboratory results Abnormal [facility] MCH (RBC) [Entitic mass] 29 pg 25.2 - 33.5 pg [facility] MCHC (RBC) [Mass/Vol] 33.2 g/dL 28.4 - 34.8 g/dL [facility] MCV (RBC) [Entitic vol] 87.5 fL 82.6 - 102.9 fL [facility] Nucleated RBC/100 WBC (Bld) [Ratio] 0 % 0.0 per 100 WBC [facility] Platelet mean volume (Bld) [Entitic vol] 9.7 fL 8.1 - 13.5 fL [facility] Platelets (Bld) [#/Vol] 306 10*3/uL [facility] RBC (Bld) [#/Vol] 5.13 10*6/uL High 3.95 - 5.1 1 m/uL [facility] WBC other (Bld) [#/Vol] 5.9 [facility] Erythrocyte distribution width (RBC) [Ratio] 13.3 % Normal 11.8-14.4 [facility] Comment on above: Performed By: #### B MP #### [facility] [address] [place], [place] [id number] Unarmed Security Officer: Loreta Zelaya MD Hematocrit (Bld) [Volume fraction] 44.9 % Normal 36.3-47.1 [facility] Comment on above: Performed By: #### B MP #### [address] [place], [place] [id number] Unarmed Security Officer: Loreta Zelaya MD Hemoglobin (Bld) [Mass/Vol] 14.9 g/dL Normal 11.9-15.1 [facility] Comment on above: Performed By: #### B MP #### [address] [place], [facility] Unarmed Security Officer: Loreta Zelaya MD MCH (RBC) [Entitic mass] 29.0 pg Normal 25.2-33.5 [facility] Comment on above: Performed By: #### B MP #### [address] [place], [facility] Unarmed Security Officer: Loreta Zelaya MD MCHC (RBC) [Mass/Vol] 33.2 g/dL Normal 28.4-34.8 [facility] Comment on above: Performed By: #### B MP #### [address] [place], [place] [id number] Unarmed Security Officer: Loreta Zelaya MD MCV (RBC) [Entitic vol] 87.5 fL Normal 82.6-102.9 [facility] Comment on above: Performed By: #### B MP #### [address] [place], [place] 7[address]83 Unarmed Security Officer: Loreta Zelaya MD NRBC Automated 0.0 per 100 WBC Normal 0.0 [facility] Comment on above: Performed By: #### B MP #### [address] [place] [address] Unarmed Security Officer: Loreta Zelaya MD Platelet mean volume (Bld) [Entitic vol] 9.7 fL Normal 8.1-13.5 [facility] Comment on above: Performed By: #### B MP #### [facility] [address] [place] [address] Unarmed Security Officer: Loreta Zelaya MD Platelets (Bld) [#/Vol] 306 10*3/uL Normal 138-453 [facility] Comment on above: Performed By: #### B MP #### [facility] [address] [place], [place] [id number] Unarmed Security Officer: Loreta Zelaya MD RBC (Bld) [#/Vol] 5.13 10*6/uL High 3.95-5.11 [facility] Comment on above: Performed By: #### B MP #### [facility] [address] [place] [address] Unarmed Security Officer: Loreta Zelaya MD WBC (Bld) [#/Vol] 5.9 10*3/uL Normal 3.5-11.3 [facility] Comment on above: Performed By: #### B MP #### [facility] [address] [place] [address] Unarmed Security Officer: Loreta Zelaya MD CKon 02-08-2025 CK [Catalytic activity/Vol] 26 U/L 26 - 192 U/L [facility] Creatine Kinaseon 02-08-2025 CK [Catalytic activity/Vol] 26 U/L Normal 26-192 [facility] Comment on above: Performed By: #### C DP #### [facility] [address] [place] [address] Unarmed Security Officer: Loreta Zelaya MD Estradiolon 02-08-2025 Estradiol 66.0 pg/mL [facility] Comment on above: FEMALES: Normally menstruating Luteal phase 60-232 Follicular phase 31-90 Midcycle phase 60-533 Postmenopausal (untreated) <138 Fulvestrant treatment will show an increased estradiol concentration with this methodology. Alternate methodologies are available upon request. Estradiol 66.0 pg/mL Normal [facility] Comment on above: Result Comment: FEMALES: Normally menstruating Luteal phase 60-232 Follicular phase 31-90 Midcycle phase 60-533 Postmenopausal (untreated) <138 Fulvestrant treatment will show an increased estradiol concentration with this methodology. Alternate methodologies are available upon request. Performed By: #### B MP #### [facility] [address] [place] [address] Unarmed Security Officer: Loreta Zelaya MD Follicle Stim. Hormon 2024 Follicle Stim. Horm 4.8 mIU/mL Normal [facility] Comment on above: Result Comment: Refe rence Range: Male: 1.5-12.4 Ovulating Female: Follicular Phase 3.5-12.5 Ovulation Phase 4.7-21.5 Luteal Phase 1.7-7.7 Postmenopausal Female: 25.8-134.8 Performed By: #### V BG #### [facility] [address] [place] [address] Unarmed Security Officer: Loreta Zelaya MD Follicle Stimulating Hormone on 02-08-2025 Follitropin Qn 4.8 m[IU]/mL mIU/mL [facility] Comment on above: Reference Range: Male: 1.5-12.4 Ovulating Female: Follicular Phase 3.5-12.5 Ovulation Phase 4.7-21.5 Luteal Phase 1.7-7.7 Postmenopausal Female: 25.8-134.8 HCG, Quanton 02-08-2025 HCG, Quant <0.2 Normal 0-7 [facility] Comment on above: Result Comment: Non-preg premeno <=5 Postmeno <=8 Male <=3 If HCG results do not concur with clinical observations, additional testing to confirm results is recommended. Performed By: #### B MP #### [facility] [address] [place] [id number] Unarmed Security Officer: Loreta Zelaya MD HCG, Quantitative, on 02-08-2025 HCG.beta subunit Qn [facility] Comment on above: Non-preg premeno <=5 Postmeno <=8 Male <=3 If HCG results do not concur with clinical observations, additional testing to confirm results is recommended. [facility] Luteinizing Hormoneon 2024 Lutropin Qn 2.8 m[IU]/mL [facility] Comment on above: Reference Range: Male: 1.7-8.6 Ovulating Female: Follicular Phase 2.4-12.6 Ovulation Phase 14.0-95.6 Luteal Phase 1.0-11.4 Postmenopausal Female: 7.7-58.5 Luteinizing Hormone 2.8 mIU/mL Normal 1.7-8.6 [facility] Comment on above: Result Comment: Refe rence Range: Male: 1.7-8.6 Ovulating Female: Follicular Phase 2.4-12.6 Ovulation Phase 14.0-95.6 Luteal Phase 1.0-11.4 Postmenopausal Female: 7.7-58.5 Performed By: #### V BG #### [facility] [address] [place] [address] Unarmed Security Officer: Loreta Zelaya MD No Panel Informationon 02-08 [facility] Progesteroneon 02-08-2025 Progesterone [Mass/Vol] 2.57 ng/mL [facility] Comment on above: Female: Follicular phase <0.19 ng/mL Ovulation phase 0.06-4.14 ng/mL Luteal phase 4.11-14.5 ng/mL Postmenopausal <0.13 ng/mL Progesterone 2.57 ng/mL Normal [facility] Comment on above: Result Comment: Female: Follicular phase <0.19 ng/mL Ovulation phase 0.06-4.14 ng/mL Luteal phase 4.11-14.5 ng/mL Postmenopausal <0.13 ng/mL Performed By: #### V BG #### [facility] [address] [place] [address] Unarmed Security Officer: Loreta Zelaya MD Prolactinon 02-08-2025 Interpretation and review of laboratory results Abnormal [facility] Prolactin [Mass/Vol] 4.73 ng/mL Low 4.79 - 23.3 ng/mL [facility] Comment on above: The presence of macr oprolactin may cause interference in female patients with various endocrinological diseases or during . [facility] Prolactin 4.73 ng/mL Low 4.79-23.3 [facility] Comment on above: Result Comment: The presence of macroprolactin may cause interference in female patients with various endocrinological diseases or during . Performed By: #### B MP #### [address] [place], [place] 3384483 Unarmed Security Officer: Loreta Zelaya MD Prot. Electroph, Blon 2024 Protein [Mass/Vol] 7.0 g/dL Normal 6.6-8.7 [facility] Comment on above: Performed By: #### I NSU #### [address] [id number] Unarmed Security Officer: Gee Royal MD [address] [place] [id number] Unarmed Security Officer: Loreta Zelaya MD #### CPEP #### [place] [address] [place], [place] [phone] Unarmed Security Officer: Gee Royal MD Sedimentation Rateon 025 ESR Photometric method (Bld) [Velocity] 21 High [facility] Interpretation and review of laboratory results Abnormal [facility] Sedimentation Rate 21 mm/Hr High 0-20 [facility] Comment on above: Performed By: #### C DP #### [address] [place] [address] Unarmed Security Officer: Loreta Zelaya MD T4, Freeon 02-08-2025 Free T4 [Mass/Vol] 0.5 ng/dL Low 0.92 - 1. 68 ng/dL [facility] Interpretation and review of laboratory results Abnormal [facility] TSHon 02-08-2025 Interpretation and review of laboratory results Abnormal [facility] TSH Qn 15.5 m[IU]/L High [facility] Testosteroneon 02-08-2025 Testosterone [Mass/Vol] 14 ng/dL 8 - 48 ng/dL [facility] Testosterone, Totalon 2024 Testosterone [Mass/Vol] 14 ng/dL Normal 8-48 M [facility] Comment on above: Performed By: #### V BG #### [facility] [address] [place] [address] Unarmed Security Officer: Loreta Zelaya MD Thyroid Stim. Horm.on 2024 Thyroid Stim. Horm. 15.50 uIU/mL High 0.27-4.20 [facility] Comment on above: Performed By: #### B MP #### [facility] [address] [place], [place] [id number] Unarmed Security Officer: Loreta Zelaya MD Thyroxine, Freeon 02-08-2025 Thyroxine, Free 0.5 ng/dL Low 0.92-1.68 [facility] Comment on above: Performed By: #### V BG #### [facility] [address] [place], [place] [id number] Unarmed Security Officer: Loreta Zelaya MD Vitamin B12 & Folateon 02-08 Cobalamin (Vitamin B12) [Mass/Vol] 391 pg/mL 232 - 1245 pg/mL [facility] Folate [Mass/Vol] 37.3 ng/mL High 4.8 - 24.2 ng/mL [facility] Interpretation and review of laboratory results Abnormal [facility] ACETONE,(BETAHYDROXYBUTYRATE , KETONE) QUANTITATIVE SERUMon 01-10-2025 BETAHYDROXYBUTYRATE 0.13 mmol/L Normal 0.02-0.27 [facility] Comment on above: Performed By: #### K ETB #### [facility] ([address] [address] VIR B-TYPE NATRIURETIC PEPTIDEon 01-10-2025 Natriuretic peptide B (Bld) [Mass/Vol] 16 pg/mL Normal <=100 [facility] Comment on above: Performed By: #### B PHARMACY SALESPERSON #### [facility] ([address] [place] [address] VIR BEDSIDE GLUCOSEon 01-10-2025 Glucose [Mass/Vol] 306 mg/dL High 65-99 [facility] Comment on above: Performed By: #### B EDG #### [facility] ([address] [place] [address] VIR Glucose [Mass/Vol] 476 mg/dL Critically high 65-99 [facility] Comment on above: Performed By: #### B EDG #### [facility] ([address] [place] [address] VIR CBC WITH AUTO DIFFERENTIALon 01-10-2025 BASOPHILS ABSOLUTE COUNT (10*3/UL) BY AUTOMATED COUNT 0.0 10*3/uL Normal 0.0-0.2 [facility] Comment on above: Performed By: #### C BCA #### [facility] ([address] [place] [address] VIR BASOPHILS RELATIVE PERCENT BY AUTOMATED COUNT 0.6 % Normal [facility] Comment on above: Performed By: #### C BCA #### [facility] ([address] [place] [address] VIR CELLAVISION DIFFERENTIAL TYPE AUTOMATED DIFFERENTIAL Normal [facility] Comment on above: Performed By: #### C BCA #### [facility] ([address] [place] [address] VIR Eosinophils (Bld) [#/Vol] 0.1 10*3/uL Normal 0.0-0.4 [facility] Comment on above: Performed By: #### C BCA #### [facility] ([address] [place] [address] VIR EOSINOPHILS RELATIVE PERCENT BY AUTOMATED COUNT 2.1 % Normal [facility] Comment on above: Performed By: #### C BCA #### [facility] ([address] [place] [address] VIR Erythrocyte distribution width (RBC) [Ratio] 13.1 % Normal 11.5-15 [facility] Comment on above: Performed By: #### C BCA #### [facility] ([address] [place] [address] VIR Hematocrit (Bld) [Volume fraction] 41.3 % Normal 35-47 [facility] Comment on above: Performed By: #### C BCA #### [facility] ([address] [place] [address] VIR Hemoglobin (Bld) [Mass/Vol] 14.0 g/dL Normal 11.7-15.5 [facility] Comment on above: Performed By: #### C BCA #### [facility] ([address] [address] VIR LYMPHOCYTES ABSOLUTE COUNT (10*3/UL) BY AUTOMATED COUNT 1.9 10*3/uL Normal 1.0-3.5 [facility] Comment on above: Performed By: #### C BCA #### [facility] ([address] [place] [address] VIR LYMPHOCYTES RELATIVE PERCENT BY AUTOMATED COUNT 31.7 % Normal [facility] Comment on above: Performed By: #### C BCA #### [facility] ([address] [place] [address] VIR MCH (RBC) [Entitic mass] 29.1 pg Normal 27-34 [facility] Comment on above: Performed By: #### C BCA #### [facility] ([address] [place] [address] VIR MCHC (RBC) [Mass/Vol] 33.9 g/dL Normal 32-36 [facility] Comment on above: Performed By: #### C BCA #### [facility] ([address] [place] [address] VIR MCV (RBC) [Entitic vol] 86 fL Normal 80-100 [facility] Comment on above: Performed By: #### C BCA #### [facility] ([address] [place] [address] VIR MONOCYTES ABSOLUTE COUNT (10*3/UL) BY AUTOMATED COUNT 0.4 10*3/uL Normal 0.0-0.9 [facility] Comment on above: Performed By: #### C BCA #### [facility] ([address] [place] [address] VIR MONOCYTES RELATIVE PERCENT BY AUTOMATED COUNT 5.9 % Normal [facility] Comment on above: Performed By: #### C BCA #### [facility] ([address] [place] [address] VIR NEUTROPHILS ABSOLUTE COUNT BY AUTOMATED COUNT 3.6 10*3/uL Normal 1.5-6.6 [facility] Comment on above: Performed By: #### C BCA #### [facility] ([address] [place] [address] VIR NEUTROPHILS RELATIVE PERCENT BY AUTOMATED COUNT 59.7 % Normal [facility] Comment on above: Performed By: #### C BCA #### [facility] ([address] [place] [address] VIR Platelet mean volume (Bld) [Entitic vol] 7.9 fL Normal 7-12 [facility] Comment on above: Performed By: #### C BCA #### [facility] ([address] [place] [address] VIR Platelets (Bld) [#/Vol] 256 10*3/uL Normal 150-450 [facility] Comment on above: Performed By: #### C BCA #### [facility] ([address] [place] [address] VIR RBC COUNT 4.82 X10E12/L Normal 3.8-5.2 [facility] Comment on above: Performed By: #### C BCA #### [facility] ([address] [place] [address] VIR WBC (Bld) [#/Vol] 6.0 10*3/uL Normal 4-11 [facility] Comment on above: Performed By: #### C BCA #### [facility] ([address] [place] [address] VIR COMPREHENSIVE METABOLIC PANE Osmany 01-10-2025 Albumin [Mass/Vol] 3.4 g/dL Normal 3.2-5.3 [facility] Comment on above: Performed By: #### C MP #### [facility] ([address] [place] [address] VIR ALP [Catalytic activity/Vol] 118 U/L Normal 39-130 [facility] Comment on above: Performed By: #### C MP #### [facility] ([address] [place] [address] VIR ALT [Catalytic activity/Vol] 32 U/L High <=31 [facility] Comment on above: Performed By: #### C MP #### [facility] ([address] [place] [address] VIR Anion gap [Moles/Vol] 6 mmol/L Normal 5-15 [facility] Comment on above: Performed By: #### C MP #### [facility] ([address] [place] [address] VIR AST [Catalytic activity/Vol] 14 U/L Normal <=41 [facility] Comment on above: Performed By: #### C MP #### [facility] ([address] [place] [address] VIR Bilirubin [Mass/Vol] 0.4 mg/dL Normal 0.3-1.2 [facility] Comment on above: Performed By: #### C MP #### [facility] ([address] [place] [address] VIR Calcium [Mass/Vol] 8.6 mg/dL Normal 8.5-10.5 [facility] Comment on above: Performed By: #### C MP #### [facility] ([address] [place] [address] VIR Chloride [Moles/Vol] 101 mmol/L Normal 98-109 [facility] Comment on above: Performed By: #### C MP #### [facility] ([address] [place] [address] VIR CO2 [Moles/Vol] 25 mmol/L Normal 22-32 [facility] Comment on above: Performed By: #### C MP #### [facility] ([address] [place] [address] VIR Creatinine [Mass/Vol] 0.45 mg/dL Normal 0.40-1.00 [facility] Comment on above: Result Comment: METH OD TRACEABLE TO IDMS STANDARD Performed By: #### C MP #### [facility] ([address] [place] [address] VIR EGFR (CKD-EPI) NON-RACE DEPENDENT >^90 Normal >=60 [facility] Comment on above: Result Comment: Repo rted eGFR is based on the CKD-EPI 2020 equation that does not use a race coefficient. Performed By: #### C MP #### [facility] ([address] [place] [address] VIR Glucose [Mass/Vol] 401 mg/dL Critically high 65-99 P [facility] Comment on above: Performed By: #### C MP #### [facility] ([address] [place] [address] VIR Potassium [Moles/Vol] 4.1 mmol/L Normal 3.5-5.0 [facility] Comment on above: Performed By: #### C MP #### [facility] ([address] [place] [address] VIR Protein [Mass/Vol] 6.2 g/dL Normal 6.0-8.0 [facility] Comment on above: Performed By: #### C MP #### [facility] ([address] [place] [address] VIR Sodium [Moles/Vol] 132 mmol/L Low 134-146 [facility] Comment on above: Performed By: #### C MP #### [facility] ([address] [place] [address] VIR Urea nitrogen [Mass/Vol] 14 mg/dL Normal 5-23 [facility] Comment on above: Performed By: #### C MP #### [facility] ([address] [place] [address] VIR LACTATE W/ REFLEXon 01-11-20 LACTATE W/REFLEX 1.3 mmol/L Normal 0.4-2.0 [facility] Comment on above: Order Comment: Resul t did not trigger repeat Lactate, re-order if needed. Performed By: #### L ACTS #### [facility] ([address] [place] [address] VIR MAGNESIUMon 01-10-2025 Magnesium [Mass/Vol] 1.8 mg/dL Normal 1.8-2.6 [facility] Comment on above: Performed By: #### M G #### [facility] ([place] [address] [place] [address] VIR PH, VENOUSon 01-10-2025 PH VENOUS 7.439 High 7.320-7.420 [facility] Comment on above: Performed By: #### P HV #### [facility] ([place] [address] [place] [address] VIR POCT NURSING URINE MACROSCOP IC UAon 01-10-2025 BILIRUBIN RICKY Negative Normal Negative [facility] Comment on above: Performed By: #### N UM #### [facility] ([place] [address] [place] [address] VIR BLOOD/HGB RICKY Negative Normal Negative [facility] Comment on above: Performed By: #### N UM #### [facility] ([address] [place] [address] VIR GLUCOSE RICKY >=1000 mg/dL Abnormal Negative [facility] Comment on above: Performed By: #### N UM #### [facility] ([place] [address] [place] [address] VIR KETONES RICKY Negative Normal Negative [facility] Comment on above: Performed By: #### N UM #### [facility] ([place] [address] [place] [address] VIR LEUKOCYTE ESTERASE RICKY Negative Normal Negative Pr [facility] Comment on above: Performed By: #### N UM #### [facility] ([place] [address] [place] [address] VIR NITRITE RICKY Negative Normal Negative [facility] Comment on above: Performed By: #### N UM #### [facility] ([place] [address] [place] [address] VIR PH RICKY 7.0 Normal 5.0, 6.0, 6.5, 7.0, 7.5, 8.0, 8.5, 5.5 [facility] Comment on above: Performed By: #### N UM #### [facility] ([facility]) [address] [place] [address] VIR PROTEIN RICKY Negative Normal Negative [facility] Comment on above: Performed By: #### N UM #### [facility] ([facility]) [address] [place] [address] [place] [address] VIR SPECIFIC GRAVITY RICKY 1.015 Normal 1.010, 1.015, 1.020, 1.025 [facility] Comment on above: Performed By: #### N UM #### [facility] ([facility]) [address] [place] [address] [place] [address] VIR UROBILINOGEN RICKY 0.2 E.U./dL Normal [facility] Comment on above: Performed By: #### N UM #### [facility] ([address] [place] [address] VIR DBT Breast - bilateral diagn osticon [...] to the patient regarding the results. [employer] recommends annual mammograms for women 40 years and older. Performing Facility: [place] [address] [facility] Bethany Ley MD - 12/25/2024 EXAMINATION: DIAGNOSTIC [...] to the patient regarding the results. [employer] recommends annual mammograms for women 40 years and older. Performing Facility: [place] [address] [facility] Radiology Study observation (narrative) Milton hernandez [facility] HIPOLITO DIGITAL DIAGNOSTIC BILATERALon 12-25-2024 [facility] HIPOLITO DIGITAL DIAGNOSTIC BILATERAL EXAMINATION: DIAGNOSTIC [...] to the patient regarding the results. [employer] recommends annual mammograms for women 40 years and older. Performing Facility: [place] [address] Interpreted by: Bethany Melchor MD Signed by: Bethany Melchor MD 12/25/24 Final result Normal [facility] No Panel Informationon 12-25 No evidence [...] to the patient regarding the results. [employer] recommends annual mammograms for women 40 years and older. [facility] RIS CONSOLIDATED EXAMINATION: DIAGNOSTIC DIGITAL BILATERAL BREASTS [...] mass lesions. No ductal ectasia is noted. [facility] Bethany Ley MD - 12/25/2024 EXAMINATION: DIAGNOSTIC [...] to the patient regarding the results. [employer] recommends annual mammograms for women 40 years and older. [facility] Radiology Study observation (narrative) [facility] [employer] No Panel InformationOrdered By: Bethany Melchor on 12-25-2024 [facility] Work Phone: US BREAST LIMITED LEFTon US [...] to the patient regarding the results. [employer] recommends annual mammograms for women 40 years and older. Interpreted by: Bethany Melchor MD Signed by: Bethany Melchor MD 12/25/24 Final result Normal [facility] US BREAST LIMITED RIGHTon US BREAST [...] to the patient regarding the results. [employer] recommends annual mammograms for women 40 years and older. Interpreted by: Bethany Melchor MD Signed by: Bethany Melchor MD 12/25/24 Final result Normal [facility] CBC auto differentialon - Basophils (Bld) [#/Vol] 0.05 10*3/uL [facility] Basophils/100 WBC (Bld) 1 % 0 - 2 % B on [facility] Eosinophils (Bld) [#/Vol] 0.05 10*3/uL [facility] Eosinophils/100 WBC (Bld) 1 % 1 - 4 % [facility] Erythrocyte distribution width (RBC) [Ratio] 11.6 % Low 11.8 - 14.4 % [facility] Hematocrit (Bld) [Volume fraction] 41 % 36.3 - 47.1 % [facility] Hemoglobin (Bld) [Mass/Vol] 13.6 g/dL 11.9 - 15.1 g/dL [facility] Immature granulocytes (Bld) [#/Vol] 0 10*3/uL [facility] Immature granulocytes/100 WBC (Bld) 0 % 0 [facility] Interpretation and review of laboratory results Abnormal [facility] Lymphocytes/100 WBC (Bld) 56 % High 24 - 43 % [facility] Lymphocytes/100 WBC (Bld) 2.92 % [facility] MCH (RBC) [Entitic mass] 29.9 pg 25.2 - 33.5 pg [facility] MCHC (RBC) [Mass/Vol] 33.2 g/dL 28.4 - 34.8 g/dL [facility] MCV (RBC) [Entitic vol] 90.1 fL 82.6 - 102.9 fL [facility] Monocytes/100 WBC (Bld) 2 % Low 3 - 12 % B on [facility] Monocytes/100 WBC (Bld) 0.1 % B on [facility] Morphology Jerson (Bld) [Interp] Normal [facility] Neutrophils/100 WBC (Bld) 40 % 36 - 65 % [facility] Nucleated RBC/100 WBC (Bld) [Ratio] 0 % 0.0 per 100 WBC [facility] Platelet mean volume (Bld) [Entitic vol] 9.6 fL 8.1 - 13.5 fL [facility] Platelets (Bld) [#/Vol] 262 10*3/uL [facility] RBC (Bld) [#/Vol] 4.55 10*6/uL 3.95 - 5.1 1 m/uL [facility] Segmented neutrophils/100 WBC (Bld) 2.08 % [facility] WBC other (Bld) [#/Vol] 5.2 B on [facility] CBC with Diffon 12-21-2024 Abs. Basophil 0.05 k/uL Normal 0.0-0.2 [facility] Comment on above: Performed By: #### V BG #### [facility] [address] [place] [address] [place] [address] Unarmed Security Officer: Loreta Zelaya MD Abs.Imm.Granulocyte 0.00 k/uL Normal 0.00-0.30 [facility] Comment on above: Performed By: #### V BG #### [facility] [address] [place] [address] Unarmed Security Officer: Loreta Zelaya MD Abs.Neutrophil (Seg) 2.08 k/uL Normal 1.50-8.10 [facility] Comment on above: Performed By: #### V BG #### [facility] [address] [place], [place] [id number] Unarmed Security Officer: Loreta Zelaya MD Basophils/100 WBC (Bld) 1 % Normal 0-2 M [facility] Comment on above: Performed By: #### V BG #### [facility] [address] [place], [place] [id number] Unarmed Security Officer: Loreta Zelaya MD Eosinophils (Bld) [#/Vol] 0.05 10*3/uL Normal 0.00-0.44 [facility] Comment on above: Performed By: #### V BG #### [facility] [address] [place], [facility] Unarmed Security Officer: Loreta Zelaya MD Eosinophils/100 WBC (Bld) 1 % Normal 1-4 [facility] Comment on above: Performed By: #### V BG #### [facility] [address] [place] [address] [place] [place], [facility] Unarmed Security Officer: Loreta Zelaya MD Immature granulocytes/100 WBC (Bld) 0 % Normal 0 [facility] Comment on above: Performed By: #### V BG #### [facility] [address] [place] [address] Dr[address] [place], [facility] Unarmed Security Officer: Loreta Zelaya MD Lymphocytes (Bld) [#/Vol] 2.92 10*3/uL Normal 1.10-3.70 [facility] Comment on above: Performed By: #### V BG #### [facility] [address] [place], [place] [id number] Unarmed Security Officer: Loreta Zelaya MD Lymphocytes/100 WBC (Bld) 56 % High 24-43 [facility] Comment on above: Performed By: #### V BG #### [facility] [address] [place], [place] [id number] Unarmed Security Officer: Loreta Zelaya MD Monocytes (Bld) [#/Vol] 0.10 10*3/uL Normal 0.10-1.20 [facility] Comment on above: Performed By: #### V BG #### [facility] [address] [place], [place] [id number] Unarmed Security Officer: Loreta Zelaya MD Monocytes/100 WBC (Bld) 2 % Low 3-12 M [facility] Comment on above: Performed By: #### V BG #### [facility] [address] [place], [facility] Unarmed Security Officer: Loreta Zelaya MD Morphology Jerson (Bld) [Interp] Normal Normal [facility] Comment on above: Performed By: #### V BG #### [address] [place], [facility] Unarmed Security Officer: Loreta Zelaya MD Neutrophil (Seg) 40 % Normal 36-65 [facility] Comment on above: Performed By: #### V BG #### [address] [place], [facility] Unarmed Security Officer: Loreta Zelaya MD Erythrocyte distribution width (RBC) [Ratio] 11.6 % Low 11.8-14.4 [facility] Comment on above: Performed By: #### V BG #### [address] [place], [facility] Unarmed Security Officer: Loreta Zelaya MD Hematocrit (Bld) [Volume fraction] 41.0 % Normal 36.3-47.1 [facility] Comment on above: Performed By: #### V BG #### [address] [place], [place] [id number] Unarmed Security Officer: Loreta Zelaya MD Hemoglobin (Bld) [Mass/Vol] 13.6 g/dL Normal 11.9-15.1 [facility] Comment on above: Performed By: #### V BG #### [address] [place], [facility] Unarmed Security Officer: Loreta Zelaya MD MCH (RBC) [Entitic mass] 29.9 pg Normal 25.2-33.5 [facility] Comment on above: Performed By: #### V BG #### [address] [place] [address] Unarmed Security Officer: Loreta Zelaya MD MCHC (RBC) [Mass/Vol] 33.2 g/dL Normal 28.4-34.8 [facility] Comment on above: Performed By: #### V BG #### [address] [place], [place] [id number] Unarmed Security Officer: Loreta Zelaya MD MCV (RBC) [Entitic vol] 90.1 fL Normal 82.6-102.9 M [facility] Comment on above: Performed By: #### V BG #### [address] [place], [place] [id number] Unarmed Security Officer: Loreta Zelaya MD NRBC Automated 0.0 per 100 WBC Normal 0.0 [facility] Comment on above: Performed By: #### V BG #### [address] [place] [address] Unarmed Security Officer: Loreta Zelaya MD Platelet mean volume (Bld) [Entitic vol] 9.6 fL Normal 8.1-13.5 [facility] Comment on above: Performed By: #### V BG #### [address] [place] [address] Unarmed Security Officer: Loreta Zelaya MD Platelets (Bld) [#/Vol] 262 10*3/uL Normal 138-453 [facility] Comment on above: Performed By: #### V BG #### [address] [place] [address] Unarmed Security Officer: Loreta Zelaya MD RBC (Bld) [#/Vol] 4.55 10*6/uL Normal 3.95-5.11 [facility] Comment on above: Performed By: #### V BG #### [facility] [address] [place], [place] [id number] Unarmed Security Officer: Loreta Zelaya MD WBC (Bld) [#/Vol] 5.2 10*3/uL Normal 3.5-11.3 [facility] Comment on above: Performed By: #### V BG #### [facility] [address] [place], [place] [id number] Unarmed Security Officer: Loreta Zelaya MD Comp Metabolic Pr/rfx MGon 0 6- Albumin [Mass/Vol] 3.6 g/dL Normal 3.5-5.2 [facility] Comment on above: Performed By: #### V BG #### [address] [place] [id number] Unarmed Security Officer: Loreta Zelaya MD Albumin/Glob Ratio 1.5 Normal 1.0-2.5 [facility] Comment on above: Performed By: #### V BG #### [address] [place], [place] [id number] Unarmed Security Officer: Loreta Zelaya MD Alkaline Phos 103 U/L Normal 35-104 [facility] Comment on above: Performed By: #### V BG #### [facility] [address] [place], [place] [id number] Unarmed Security Officer: Loreta Zelaya MD ALT [Catalytic activity/Vol] 19 U/L Normal 10-35 [facility] Comment on above: Performed By: #### V BG #### [facility] [address] [place] [address] Unarmed Security Officer: Loreta Zelaya MD Anion gap [Moles/Vol] 10 mmol/L Normal 9-16 [facility] Comment on above: Performed By: #### V BG #### [facility] [address] [place], [place] [phone] Unarmed Security Officer: Loreta Zelaya MD AST [Catalytic activity/Vol] 13 U/L Normal 10-35 [facility] Comment on above: Performed By: #### V BG #### [facility] [address] [place], [place] [phone] Unarmed Security Officer: Loreta Zelaya MD Bilirubin [Mass/Vol] 0.2 mg/dL Normal 0.00-1.20 [facility] Comment on above: Performed By: #### V BG #### [facility] [address] [place], [place] [phone] Unarmed Security Officer: Loreta Zelaya MD BUN/CRE Ratio 35 High 9-20 [facility] Comment on above: Performed By: #### V BG #### [facility] [address] [place], [place] 838[address]83 Unarmed Security Officer: Loreta Zelaya MD Calcium [Mass/Vol] 8.4 mg/dL Low 8.6-10.4 [facility] Comment on above: Performed By: #### V BG #### [facility] [address] [place], [place] [phone] Unarmed Security Officer: Loreta Zelaya MD Chloride [Moles/Vol] 107 mmol/L Normal 98-107 [facility] Comment on above: Performed By: #### V BG #### [facility] [address] [place], [place] [phone] Unarmed Security Officer: Loreta Zelaya MD CO2 [Moles/Vol] 19 mmol/L Low 20-31 [facility] Comment on above: Performed By: #### V BG #### [facility] [address] [place], [place] [phone] Unarmed Security Officer: Loreta Zelaya MD Creatinine [Mass/Vol] 0.4 mg/dL Low 0.50-0.90 [facility] Comment on above: Performed By: #### V BG #### [facility] [address] [place] [address] Unarmed Security Officer: Loreta Zelaya MD GFR/1.73 sq M.predicted among non-blacks MDRD (S/P/Bld) [Vol rate/Area] mL/min/{1.73_m2} Normal >60 [facility] Comment on above: Result Comment: These [...] secretion. Performed By: #### V BG #### [facility] [address] [place] [address] [place] [address] Unarmed Security Officer: Loreta Zelaya MD Glucose [Mass/Vol] 146 mg/dL High 74-99 [facility] Comment on above: Performed By: #### V BG #### [facility] [address] [place] [address] Unarmed Security Officer: Loreta Zelaya MD Potassium [Moles/Vol] 3.8 mmol/L Normal 3.7-5.3 [facility] Comment on above: Performed By: #### V BG #### [facility] [address] [place] [address] [place] [address] Unarmed Security Officer: Loreta Zelaya MD Protein [Mass/Vol] 6.0 g/dL Low 6.6-8.7 [facility] Comment on above: Performed By: #### V BG #### [facility] [address] [place] [address] [place] [address] Unarmed Security Officer: Loreta Zelaya MD Sodium [Moles/Vol] 136 mmol/L Normal 136-145 [facility] Comment on above: Performed By: #### V BG #### [facility] [address] [place] [address] Unarmed Security Officer: Loreta Zelaya MD Urea nitrogen [Mass/Vol] 14 mg/dL Normal 6-20 [facility] Comment on above: Performed By: #### V BG #### [facility] [address] [place] [address] Unarmed Security Officer: Loreta Zelaya MD Comprehensive Metabolic Pane l w/ Reflex to MGon 12-21-2024 Albumin [Mass/Vol] 3.6 g/dL 3.5 - 5.2 g/dL [facility] Albumin/Globulin [Mass ratio] 1.5 {ratio} 1.0 - 2.5 [facility] ALP [Catalytic activity/Vol] 103 U/L 35 - 104 U/L [facility] ALT [Catalytic activity/Vol] 19 U/L 10 - 35 U/L [facility] Anion gap [Moles/Vol] 10 mmol/L 9 - 16 mmol/L [facility] AST [Catalytic activity/Vol] 13 U/L 10 - 35 U/L [facility] Bilirubin [Mass/Vol] 0.2 mg/dL 0.00 - 1.20 mg/dL [facility] Calcium [Mass/Vol] 8.4 mg/dL Low 8.6 - 10. 4 mg/dL [facility] Chloride [Moles/Vol] 107 mmol/L 98 - 10 7 mmol/L [facility] CO2 [Moles/Vol] 19 mmol/L Low 20 - 31 mmol/L [facility] Creatinine [Mass/Vol] 0.4 mg/dL Low 0.50 - 0.90 mg/dL [facility] Est, Glom Filt Rate - PINF [facility] Comment on above: These results are not [...] 146 mg/dL High 74 - 99 mg/dL [employer] Interpretation and review of laboratory results Abnormal [employer] Potassium [Moles/Vol] 3.8 mmol/L 3.7 - 5.3 mmol/L [employer] Protein [Mass/Vol] 6 g/dL Low 6.6 - 8.7 g/dL [employer] Sodium [Moles/Vol] 136 mmol/L 136 - 145 mmol/L [employer] Urea nitrogen [Mass/Vol] 14 mg/dL 6 - 20 mg/dL [employer] Urea nitrogen/Creatinine [Mass ratio] 35 mg/mg High 9 - 20 [employer] [facility] EKG 12 Lead (Chest Pain)Orde red By: Mode Coffman on 12-21-2024 Atrial Rate 88 BPM [employer] Work Phone: P [place] 51 degrees [employer] Work Phone: P-R Interval 138 ms [employer] Work Phone: Q-T Interval 392 ms [employer] Work Phone: QRS Duration 82 ms [employer] Work Phone: QTc Calculation (Bazett) 474 ms [employer] Work Phone: R [place] 107 degrees [employer] Work Phone: T [place] 55 degrees [employer] Work Phone: Ventricular Rate 88 BPM 27 [facility] [employer] Work Phone: [employer] Work Phone: EKG 12 Lead (Chest Pain)on 0 12-21-2024 Normal sinus rhythm Rightward axis Borderline ECG ECG not diagnostic for Acute Coronary Syndrome; consider clinical findings When compared with ECG of 16-Oct-2024 20:05, QRS axis Shifted right Confirmed by Mode Coffman ([id number]) on 12/21/2024 8:47:09 AM [facility] RADI[facility] Mode Coffman MD - 12/21/2024 Normal sinus rhythm Rightward axis Borderline ECG ECG not diagnostic for Acute Coronary Syndrome; consider clinical findings When compared with ECG of 16-Oct-2024 20:05, QRS axis Shifted right Confirmed by Mode Coffman ([id number]) on 12/21/2024 8:47:09 AM [facility] EKG Rhythm Stripon [facility] Glucose, Whole Bloodon 12-21 Glucose [Mass/Vol] 264 mg/dL High 74 - 100 mg/dL [facility] Interpretation and review of laboratory results Abnormal [facility] Glucose [Mass/Vol] 264 mg/dL High 74-100 [facility] Glucose [Mass/Vol] 166 mg/dL High 74 - 100 mg/dL [facility] Interpretation and review of laboratory results Abnormal [facility] Glucose [Mass/Vol] 166 mg/dL High 74-100 [facility] Glucose [Mass/Vol] 195 mg/dL High 74 - 100 mg/dL [facility] Interpretation and review of laboratory results Abnormal [facility] Glucose [Mass/Vol] 195 mg/dL High 74-100 [facility] Urinalysis w/ Microon 2024 Bilirubin, SemiQt,Ur Negative Normal NEG [facility] Comment on above: Performed By: #### U AMIC #### [facility] [address] [place] [address] Unarmed Security Officer: Loreta Zelaya MD Blood, Urine Negative Normal NEG [facility] Comment on above: Performed By: #### U AMIC #### [facility] [address] [place] [address] Unarmed Security Officer: Loreta Zelaya MD Clarity (U) Clear Normal CLEAR [facility] [facility] Comment on above: Performed By: #### U AMIC #### [facility] [address] [place] [address] Unarmed Security Officer: Loreta Zelaya MD Color (U) Yellow Normal YEL [facility] Comment on above: Performed By: #### U AMIC #### [facility] [address] [place], [place] [id number] Unarmed Security Officer: Loreta Zelaya MD Epithelial cells LM Ql (Urine sed) None Normal 0-25 [facility] Comment on above: Performed By: #### U AMIC #### [facility] [address] [place], [place] [id number] Unarmed Security Officer: Loreta Zelaya MD Glucose Ql (U) 3+ mg/dL Abnormal NEG [facility] in Hospital Comment on above: Performed By: #### U AMIC #### [facility] [address] [place] [address] [place] [place], [place] [id number] Unarmed Security Officer: Loreta Zelaya MD Ketones Ql (U) 4+ mg/dL Abnormal NEG [facility] in Hospital Comment on above: Performed By: #### U AMIC #### [facility] [address] [place] [address] [address] [place], [place] [id number] Unarmed Security Officer: Loreta Zelaya MD Leukocyte esterase Test strip Ql (U) Negative Normal NEG [facility] Comment on above: Performed By: #### U AMIC #### [facility] [address] [place] [address] [place] [place], [place] [id number] Unarmed Security Officer: Loreta Zelaya MD Nitrite,Ur Negative Normal NEG [facility] Comment on above: Performed By: #### U AMIC #### [facility] [address] [place], [place] [id number] Unarmed Security Officer: Loreta Zelaya MD PH,Ur 6.0 Normal 5.0-9.0 [facility] Comment on above: Performed By: #### U AMIC #### [facility] [address] [place], [place] [id number] Unarmed Security Officer: Loreta Zelaya MD Protein Ql (U) Negative Normal NEG [facility] Comment on above: Performed By: #### U AMIC #### [facility] [address] [place], [place] [phone] Unarmed Security Officer: Loreta Zelaya MD Spec. [place],Ur <1.005 Low 1.010-1.020 [facility] Comment on above: Performed By: #### U AMIC #### [facility] [address] [place], [place] [id number] Unarmed Security Officer: Loreta Zelaya MD Urine RBC's None Normal 0-2 [facility] Comment on above: Performed By: #### U AMIC #### [facility] [address] [place] [address] [address] [place], [place] [phone] Unarmed Security Officer: Loreta Zelaya MD Urine WBC's None Normal 0-5 [facility] Comment on above: Performed By: #### U AMIC #### [facility] [address] [place] [address] [place] [place], [place] [phone] Unarmed Security Officer: Loreta Zelaya MD Urobilinogen,Ur Normal Normal 0.0-1.0 [facility] Comment on above: Performed By: #### U AMIC #### [facility] [address] [place] [address] [place], [place] [phone] Unarmed Security Officer: Loreta Zelaya MD Yeast PRESENCE NOTED Abnormal NONE [facility] in Hospital Comment on above: Performed By: #### U AMIC #### [facility] [address] [place] [address] [place] [place], [place] [phone] Unarmed Security Officer: Loreta Zelaya MD Urinalysis with Microscopico n 12-21-2024 Bilirubin Ql (U) Negative NEGATIVE [facility] Clarity (U) Clear Clear [facility] Color (U) Yellow Yellow Bon [facility] Epithelial cells LM.HPF (Urine sed) [#/Area] None [facility] Glucose Test strip (U) [Mass/Vol] 3+ Abnormal NEGATIVE mg/dL [facility] Hem[facility] Auto test strip Ql (U) Negative NEGATIVE [facility] Interpretation and review of laboratory results Abnormal [facility] Ketones (U) [Mass/Vol] 4+ Abnormal NEGAT AMITA mg/dL [facility] Leukocyte esterase Test strip Ql (U) Negative NEGATIVE [facility] Nitrite Ql (U) Negative NEGATIVE [facility] pH (U) 6 [pH] 5.0 - 9.0 [facility] Protein (U) [Mass/Vol] Negative NEGAT AMITA mg/dL [facility] RBC LM.HPF (Urine sed) [#/Area] None [facility] Specific gravity (U) [Rel density] Low 1.010 - 1.020 [facility] Urobilinogen Qn (U) Normal 0.0 - 1. 0 EU/dL [facility] WBC LM.HPF (Urine sed) [#/Area] None [facility] Yeast LM Ql (Urine sed) PRESENCE NOTED Abnormal None [facility] BMPon 12-20-2024 Anion gap [Moles/Vol] 14 mmol/L 9 - 16 mmol/L [facility] Calcium [Mass/Vol] 7.9 mg/dL Low 8.6 - 10. 4 mg/dL [facility] Chloride [Moles/Vol] 102 mmol/L 98 - 10 7 mmol/L [facility] CO2 [Moles/Vol] 18 mmol/L Low 20 - 31 mmol/L [facility] Creatinine [Mass/Vol] 0.6 mg/dL 0.50 - 0.90 mg/dL [facility] Est, Glom Filt Rate - PINF [facility] Comment on above: These results are not [...] 370 mg/dL High 74 - 99 mg/dL [facility] Interpretation and review of laboratory results Abnormal [facility] Potassium [Moles/Vol] 4 mmol/L 3.7 - 5.3 mmol/L [facility] Sodium [Moles/Vol] 134 mmol/L Low 136 - 145 mmol/L [facility] Urea nitrogen [Mass/Vol] 16 mg/dL 6 - 20 mg/dL [facility] Urea nitrogen/Creatinine [Mass ratio] 27 mg/mg High 9 - 20 [facility] Basic Metabolic Profon 12-20 Anion gap [Moles/Vol] 14 mmol/L Normal 9-16 [facility] Comment on above: Performed By: #### B MP #### [facility] [address] [place] [address] Unarmed Security Officer: Loreta Zelaya MD BUN/CRE Ratio 27 High 9-20 [facility] Comment on above: Performed By: #### B MP #### [facility] [address] [place] [address] Unarmed Security Officer: Loreta Zelaya MD Calcium [Mass/Vol] 7.9 mg/dL Low 8.6-10.4 [facility] Comment on above: Performed By: #### B MP #### [facility] [address] [place], [place] [phone] Unarmed Security Officer: Loreta Zelaya MD Chloride [Moles/Vol] 102 mmol/L Normal 98-107 [facility] Comment on above: Performed By: #### B MP #### [facility] [address] [place] [address] Unarmed Security Officer: Loreta Zelaya MD CO2 [Moles/Vol] 18 mmol/L Low 20-31 [facility] Comment on above: Performed By: #### B MP #### [facility] [address] [place] [address] Unarmed Security Officer: Loreta Zelaya MD Creatinine [Mass/Vol] 0.6 mg/dL Normal 0.50-0.90 [facility] Comment on above: Performed By: #### B MP #### [facility] [address] [place] [address] Unarmed Security Officer: Loreta Zelaya MD GFR/1.73 sq M.predicted among non-blacks MDRD (S/P/Bld) [Vol rate/Area] mL/min/{1.73_m2} Normal >60 [facility] Comment on above: Result Comment: These [...] secretion. Performed By: #### B MP #### [facility] [address] [place] [address] [place] [address] Unarmed Security Officer: Loreta Zelaya MD Glucose [Mass/Vol] 370 mg/dL High 74-99 [facility] Comment on above: Performed By: #### B MP #### [address] [place] [address] Unarmed Security Officer: Loreta Zelaya MD Potassium [Moles/Vol] 4.0 mmol/L Normal 3.7-5.3 [facility] Comment on above: Performed By: #### B MP #### [facility] [address] [place] [address] [place] [address] Unarmed Security Officer: Loreta Zelaya MD Sodium [Moles/Vol] 134 mmol/L Low 136-145 [facility] Comment on above: Performed By: #### B MP #### [facility] [address] [place] [address] Unarmed Security Officer: Loreta Zelaya MD Urea nitrogen [Mass/Vol] 16 mg/dL Normal 6-20 [facility] Comment on above: Performed By: #### B MP #### [facility] [address] [place] [address] Unarmed Security Officer: Loreta Zelaya MD Beta Hydroxybutyrateon 12-20 Beta Hydroxybutyrate 3.86 mmol/L High 0.02-0.27 [facility] Comment on above: Performed By: #### I NSU #### [facility] [address] [place], [place] [phone] Unarmed Security Officer: Gee Royal MD [facility] [address] [place] [address] Unarmed Security Officer: Loreta Zelaya MD #### CPEP #### [facility] [address] [place], [place] [phone] Unarmed Security Officer: Gee Royal MD Beta-Hydroxybutyrateon 12-20 Beta hydroxybutyrate [Mass/Vol] 3.86 mmol/L High 0.02 - 0.27 mmol/L [facility] Interpretation and review of laboratory results Abnormal [facility] Blood Gas, Venouson 12-21-19 25 Arterial patency Wrist artery --pre arterial puncture NOT APPLICABLE [facility] HCO3 (Bld) [Moles/Vol] 17.9 mmol/L Low 24.0 - 30.0 mmol/L [facility] Interpretation and review of laboratory results Abnormal [facility] Negative Base Excess, Reik 6.3 mmol/L High 0.0 - 2.0 mmol/L [facility] Oxygen gas flow Oxygen delivery system ROOM AIR [facility] Oxygen saturation in Blood 83 % 60.0 - 85.0 % [facility] Oxygen/Inspired gas Respiratory system --on ventilator 21 [facility] pCO2, Erik 32.4 Low [facility] pCO2, Erik, Temp Adj 32.4 Low [facility] pH, Erik 7.361 7.32 - 7.42 [facility] pH, Erik, Temp Adj 7.361 7.320 - 7.420 [facility] PO2, Erik 48.2 [facility] pO2, Erik, Temp Adj 48.2 [facility] CBC with Auto Differentialon 12-20-2024 Basophils (Bld) [#/Vol] 0.04 10*3/uL [facility] Basophils/100 WBC (Bld) 1 % 0 - 2 % B on [facility] Eosinophils (Bld) [#/Vol] 0.15 10*3/uL [facility] Eosinophils/100 WBC (Bld) 3 % 1 - 4 % [facility] Erythrocyte distribution width (RBC) [Ratio] 11.6 % Low 11.8 - 14.4 % [facility] Hematocrit (Bld) [Volume fraction] 46.4 % 36.3 - 47.1 % [facility] Hemoglobin (Bld) [Mass/Vol] 15.8 g/dL High 11.9 - 15.1 g/dL [facility] Immature granulocytes (Bld) [#/Vol] [facility] Immature granulocytes/100 WBC (Bld) 0 % 0 [facility] Interpretation and review of laboratory results Abnormal [facility] Lymphocytes/100 WBC (Bld) 43 % 24 - 43 % [facility] Lymphocytes/100 WBC (Bld) 2.46 % [facility] MCH (RBC) [Entitic mass] 30.5 pg 25.2 - 33.5 pg [facility] MCHC (RBC) [Mass/Vol] 34.1 g/dL 28.4 - 34.8 g/dL [facility] MCV (RBC) [Entitic vol] 89.6 fL 82.6 - 102.9 fL [facility] Monocytes/100 WBC (Bld) 6 % 3 - 12 % B on [facility] Monocytes/100 WBC (Bld) 0.35 % B on [facility] Neutrophils/100 WBC (Bld) 47 % 36 - 65 % [facility] Nucleated RBC/100 WBC (Bld) [Ratio] 0 % 0.0 per 100 WBC [facility] Platelet mean volume (Bld) [Entitic vol] 9.8 fL 8.1 - 13.5 fL [facility] Platelets (Bld) [#/Vol] 288 10*3/uL [facility] RBC (Bld) [#/Vol] 5.18 10*6/uL High 3.95 - 5.1 1 m/uL [facility] Segmented neutrophils/100 WBC (Bld) 2.7 % [facility] WBC other (Bld) [#/Vol] 5.7 B on [facility] CBC with Diffon 12-20-2024 Abs. Basophil 0.04 k/uL Normal 0.00-0.20 [facility] Comment on above: Performed By: #### I NSU #### [address] [address] Unarmed Security Officer: Gee Royal MD [facility] [address] [place] [address] [place] [phone] Unarmed Security Officer: Loreta Zelaya MD #### CPEP #### [address] [address] Unarmed Security Officer: Gee Royal MD Abs.Imm.Granulocyte <0.03 Normal 0.00-0.30 [facility] Comment on above: Performed By: #### I NSU #### [address] [address] Unarmed Security Officer: Gee Royal MD [address] [place] [phone] Unarmed Security Officer: Loreta Zelaya MD #### CPEP #### [address] [address] Unarmed Security Officer: Gee Royal MD Abs.Neutrophil (Seg) 2.70 k/uL Normal 1.50-8.10 [facility] Comment on above: Performed By: #### I NSU #### [address] [address] Unarmed Security Officer: Gee Royal MD [facility] [address] [place] [address] [place]. [place], [place] [phone] Unarmed Security Officer: Loreta Zelaya MD #### CPEP #### [address] [address] Unarmed Security Officer: Gee Royal MD Basophils/100 WBC (Bld) 1 % Normal 0-2 M [facility] Comment on above: Performed By: #### I NSU #### [address] [address] Unarmed Security Officer: Gee Royal MD [address] [place] [address] Unarmed Security Officer: Loreta Zelaya MD #### CPEP #### [address] [address] Unarmed Security Officer: Gee Royal MD Eosinophils (Bld) [#/Vol] 0.15 10*3/uL Normal 0.00-0.44 [facility] Comment on above: Performed By: #### I NSU #### [address] [address] Unarmed Security Officer: Gee Royal MD [address] [place], [place] [id number] Unarmed Security Officer: Loreta Zelaya MD #### CPEP #### [address] [address] Unarmed Security Officer: Gee Royal MD Eosinophils/100 WBC (Bld) 3 % Normal 1-4 [facility] Comment on above: Performed By: #### I NSU #### [address] [address] Unarmed Security Officer: Gee Royal MD [facility] [address] [place] [address] [place]. [place], [place] [phone] Unarmed Security Officer: Loreta Zelaya MD #### CPEP #### [address] [address] Unarmed Security Officer: Gee Royal MD Erythrocyte distribution width (RBC) [Ratio] 11.6 % Low 11.8-14.4 [facility] Comment on above: Performed By: #### I NSU #### [address] [address] Unarmed Security Officer: Gee Royal MD [address] [place] 9343783 Unarmed Security Officer: Loreta Zelaya MD #### CPEP #### [address] [address] Unarmed Security Officer: Gee Royal MD Hematocrit (Bld) [Volume fraction] 46.4 % Normal 36.3-47.1 [facility] Comment on above: Performed By: #### I NSU #### [address] [address] Unarmed Security Officer: Gee Royal MD [address] [place] [phone] Unarmed Security Officer: Loreta Zelaya MD #### CPEP #### [address] [address] Unarmed Security Officer: Gee Royal MD Hemoglobin (Bld) [Mass/Vol] 15.8 g/dL High 11.9-15.1 [facility] Comment on above: Performed By: #### I NSU #### [address] [address] Unarmed Security Officer: Gee Royal MD [address] [place] [phone] Unarmed Security Officer: Loreta Zelaya MD #### CPEP #### [address] [address] Unarmed Security Officer: Gee Royal MD Immature granulocytes/100 WBC (Bld) 0 % Normal 0 [facility] Comment on above: Performed By: #### I NSU #### [address] [address] Unarmed Security Officer: Gee Royal MD [facility] [address] [place] [address] Dr. [place] [phone] Unarmed Security Officer: Loreta Zelaya MD #### CPEP #### [address] [address] Unarmed Security Officer: Gee Royal MD Lymphocytes (Bld) [#/Vol] 2.46 10*3/uL Normal 1.10-3.70 [facility] Comment on above: Performed By: #### I NSU #### [address] [address] Unarmed Security Officer: Gee Royal MD [facility] [address] [place] [address] [place] [address] Unarmed Security Officer: Loreta Zelaya MD #### CPEP #### [address] [address] Unarmed Security Officer: Gee Royal MD Lymphocytes/100 WBC (Bld) 43 % Normal 24-43 [facility] Comment on above: Performed By: #### I NSU #### [address] [address] Unarmed Security Officer: Gee Royal MD [facility] [address] [place] [address] [place] [address] Unarmed Security Officer: Loreta Zelaya MD #### CPEP #### [address] [address] Unarmed Security Officer: Gee Royal MD MCH (RBC) [Entitic mass] 30.5 pg Normal 25.2-33.5 [facility] Comment on above: Performed By: #### I NSU #### [address] [address] Unarmed Security Officer: Gee Royal MD [address] [place], [place] 7753883 Unarmed Security Officer: Loreta Zelaya MD #### CPEP #### [address] [address] Unarmed Security Officer: Gee Royal MD MCHC (RBC) [Mass/Vol] 34.1 g/dL Normal 28.4-34.8 [facility] Comment on above: Performed By: #### I NSU #### [address] [address] Unarmed Security Officer: Gee Royal MD [address] [place], [place] [phone] Unarmed Security Officer: Loreta Zelaya MD #### CPEP #### [address] [address] Unarmed Security Officer: Gee Royal MD MCV (RBC) [Entitic vol] 89.6 fL Normal 82.6-102.9 M [facility] Comment on above: Performed By: #### I NSU #### [address] [address] Unarmed Security Officer: Gee Royal MD [address] [place] [address] Unarmed Security Officer: Loreta Zelaya MD #### CPEP #### [address] [address] Unarmed Security Officer: Gee Royal MD Monocytes (Bld) [#/Vol] 0.35 10*3/uL Normal 0.10-1.20 [facility] Comment on above: Performed By: #### I NSU #### [address] [address] Unarmed Security Officer: Gee Royal MD [address] [place] [address] Unarmed Security Officer: Loreta Zelaya MD #### CPEP #### [address] [address] Unarmed Security Officer: Gee Royal MD Monocytes/100 WBC (Bld) 6 % Normal 3-12 M [facility] Comment on above: Performed By: #### I NSU #### [address] [address] Unarmed Security Officer: Gee Royal MD [facility] [address] [place] [address] Unarmed Security Officer: Loreta Zelaya MD #### CPEP #### [address] [address] Unarmed Security Officer: Gee Royal MD Neutrophil (Seg) 47 % Normal 36-65 [facility] Comment on above: Performed By: #### I NSU #### [address] [address] Unarmed Security Officer: Gee Royal MD [facility] [address] [place] [phone] Unarmed Security Officer: Loreta Zelaya MD #### CPEP #### [address] [address] Unarmed Security Officer: Gee Royal MD NRBC Automated 0.0 per 100 WBC Normal 0.0 [facility] Comment on above: Performed By: #### I NSU #### [address] [address] Unarmed Security Officer: Gee Royal MD [facility] [address] [place] [address] Unarmed Security Officer: Loreta Zelaya MD #### CPEP #### [address] [address] Unarmed Security Officer: Gee Royal MD Platelet mean volume (Bld) [Entitic vol] 9.8 fL Normal 8.1-13.5 [facility] Comment on above: Performed By: #### I NSU #### [place] [address]24[address] [place] [address] Unarmed Security Officer: Gee Royal MD [facility] [address] [place] [address] [place], [place] 6259083 Unarmed Security Officer: Loreta Zelaya MD #### CPEP #### [address] [address] Unarmed Security Officer: Gee Royal MD Platelets (Bld) [#/Vol] 288 10*3/uL Normal 138-453 [facility] Comment on above: Performed By: #### I NSU #### [address] [address] Unarmed Security Officer: Gee Royal MD [address] [place] [phone] Unarmed Security Officer: Loreta Zelaya MD #### CPEP #### [address] [address] Unarmed Security Officer: Gee Royal MD RBC (Bld) [#/Vol] 5.18 10*6/uL High 3.95-5.11 [facility] Comment on above: Performed By: #### I NSU #### [address] [address] Unarmed Security Officer: Gee Royal MD [facility] [address] [place] [address] [place] [phone] Unarmed Security Officer: Loreta Zelaya MD #### CPEP #### [address] [address] Unarmed Security Officer: Gee Royal MD WBC (Bld) [#/Vol] 5.7 10*3/uL Normal 3.5-11.3 [facility] Comment on above: Performed By: #### I NSU #### [facility] [address] [place] [address] Unarmed Security Officer: Gee Royal MD [facility] [address] [place] [address] Unarmed Security Officer: Loreta Zelaya MD #### CPEP #### [facility] [address] [place], [place] [phone] Unarmed Security Officer: Gee Royal MD [facility] 12-20-2024 Albumin [Mass/Vol] 4.2 g/dL 3.5 - 5.2 g/dL [facility] Albumin/Globulin [Mass ratio] 1.4 {ratio} 1.0 - 2.5 [facility] ALP [Catalytic activity/Vol] 148 U/L High 35 - 104 U/L [facility] ALT [Catalytic activity/Vol] 27 U/L 10 - 35 U/L [facility] Anion gap [Moles/Vol] 19 mmol/L High 9 - 16 mmol/L [facility] AST [Catalytic activity/Vol] 19 U/L 10 - 35 U/L [facility] Comment on above: Specimen hemolysis h as exceeded the interference as defined by Kat. Value may be falsely increased. Suggest recollection if clinically indicated. Bilirubin [Mass/Vol] 0.3 mg/dL 0.00 - 1.20 mg/dL [facility] Calcium [Mass/Vol] 9.2 mg/dL 8.6 - 10. 4 mg/dL [facility] Chloride [Moles/Vol] 92 mmol/L Low 98 - 10 7 mmol/L [facility] CO2 [Moles/Vol] 19 mmol/L Low 20 - 31 mmol/L [facility] Creatinine [Mass/Vol] 0.6 mg/dL 0.50 - 0.90 mg/dL [facility] Est, Glom Filt Rate - PINF [facility] Comment on above: These results are not [...] Critically high 74 - 9 9 mg/dL [facility] Interpretation and review of laboratory results Abnormal [facility] Potassium [Moles/Vol] 4.8 mmol/L 3.7 - 5.3 mmol/L [facility] Comment on above: Specimen hemolysis h as exceeded the interference as defined by Kat. Value may be falsely increased. Suggest recollection if clinically indicated. Protein [Mass/Vol] 7.2 g/dL 6.6 - 8.7 g/dL [facility] Sodium [Moles/Vol] 130 mmol/L Low 136 - 145 mmol/L [facility] Urea nitrogen [Mass/Vol] 19 mg/dL 6 - 20 mg/dL [facility] Urea nitrogen/Creatinine [Mass ratio] 32 mg/mg High 9 - 20 [facility] HEAD WO CONTRASTon 2024 CT HEAD [...] Tavo Almonte MD 12/20/24 Final result Normal [facility] CT Head WO contraston 2024 No acute intracranial abnormality. [facility] EXAMINATION: CT OF THE HEAD WITHOUT [...] of the visualized skull or soft tissues. [facility] Tavo Almonte MD - 12/20/2024 EXAMINATION: [...] soft tissues. IMPRESSION: No acute intracranial abnormality. [facility] Radiology Study observation (narrative) [facility] CT Head WO contrastOrdered B y: Tavo Almonte on 12-20-2024 Milton Zamarripa [facility] Work Phone: CTA HEAD NECK W CONTRASTon [...] Amaury Khan MD 12/20/24 Final result Normal [facility] CTA Head vessels and Neck ve [...] fluid collection. The alexander-white differentiation is maintained. [facility] Amaury Khan MD - 12/20/2024 EXAMINATION: [...] the head or neck. 2. Diffuse goiter. [facility] Radiology Study observation (narrative) [facility] CTA Head vessels and Neck ve ssels W contrast IVOrdered By: Amaury Khan on 12-20-2024 [facility] Work Phone: Comp Metabolic Profon 2024 Albumin [Mass/Vol] 4.2 g/dL Normal 3.5-5.2 [facility] Comment on above: Performed By: #### I NSU #### [facility] [address] [place], [place] [phone] Unarmed Security Officer: Gee Royal MD [facility] [address] [place] [address] Unarmed Security Officer: Loreta Zelaya MD #### CPEP #### [facility] [employer] [address] [place], [place] [id number] Unarmed Security Officer: Gee Royal MD Albumin/Glob Ratio 1.4 Normal 1.0-2.5 [facility] Comment on above: Performed By: #### I NSU #### [facility] [address] [place] [address] Unarmed Security Officer: Gee Royal MD [address] [place], [place] [id number] Unarmed Security Officer: Loreta Zelaya MD #### CPEP #### [address] [address] Unarmed Security Officer: Gee Royal MD Alkaline Phos 148 U/L High 35-104 [facility] Comment on above: Performed By: #### I NSU #### [address] [address] Unarmed Security Officer: Gee Royal MD [address] [place] [address] Unarmed Security Officer: Loreta Zelaya MD #### CPEP #### [address] [address] Unarmed Security Officer: Gee Royal MD ALT [Catalytic activity/Vol] 27 U/L Normal 10-35 [facility] Comment on above: Performed By: #### I NSU #### [address] [address] Unarmed Security Officer: Gee Royal MD [address] [place], [place] [id number] Unarmed Security Officer: Loreta Zelaya MD #### CPEP #### [address] [address] Unarmed Security Officer: Gee Royal MD Anion gap [Moles/Vol] 19 mmol/L High 9-16 [facility] Comment on above: Performed By: #### I NSU #### [address] [address] Unarmed Security Officer: Gee Royal MD [facility] [address] [place] [address] [place], [place] [id number] Unarmed Security Officer: Loreta Zelaya MD #### CPEP #### [address] [address] Unarmed Security Officer: Gee Royal MD AST [Catalytic activity/Vol] 19 U/L Normal 10-35 [facility] Comment on above: Result Comment: Spec imen hemolysis has exceeded the interference as defined by Kat. Value may be falsely increased. Suggest recollection if clinically indicated. Performed By: #### I NSU #### [address] [address] Unarmed Security Officer: Gee Royal MD [facility] [address] [place] [address] [address]. [place], [place] [id number] Unarmed Security Officer: Loreta Zelaya MD #### CPEP #### [address] [address] Unarmed Security Officer: Gee Royal MD Bilirubin [Mass/Vol] 0.3 mg/dL Normal 0.00-1.20 [facility] Comment on above: Performed By: #### I NSU #### [address] [address] Unarmed Security Officer: Gee Royal MD [facility] [address] [place] [address] [address]. [place], [place] [phone] Unarmed Security Officer: Loreta Zelaya MD #### CPEP #### [address] [address] Unarmed Security Officer: Gee Royal MD BUN/CRE Ratio 32 High 9-20 [facility] Comment on above: Performed By: #### I NSU #### [address] [address] Unarmed Security Officer: Gee Royal MD [facility] [address] [place] [address] [address], [place] [phone] Unarmed Security Officer: Loreta Zelaya MD #### CPEP #### [facility] [address] [place] [address] Unarmed Security Officer: Gee Royal MD Calcium [Mass/Vol] 9.2 mg/dL Normal 8.6-10.4 [facility] Comment on above: Performed By: #### I NSU #### [facility] [address] [place] [address] Unarmed Security Officer: Gee Royal MD [facility] [address] [place] [address] [address], [place] [id number] Unarmed Security Officer: Loreta Zelaya MD #### CPEP #### [address] [address] Unarmed Security Officer: Gee Royal MD Chloride [Moles/Vol] 92 mmol/L Low 98-107 [facility] Comment on above: Performed By: #### I NSU #### [address] [address] Unarmed Security Officer: Gee Royal MD [facility] [address] [place] [address] [place] [address] Unarmed Security Officer: Loreta Zelaya MD #### CPEP #### [address] [address] Unarmed Security Officer: Gee Royal MD CO2 [Moles/Vol] 19 mmol/L Low 20-31 [facility] Comment on above: Performed By: #### I NSU #### [facility] [address] [place] [address] Unarmed Security Officer: Gee Royal MD [facility] [address] [place] [address] [place] [address] Unarmed Security Officer: Loreta Zelaya MD #### CPEP #### [address] [address] Unarmed Security Officer: Gee Royal MD Creatinine [Mass/Vol] 0.6 mg/dL Normal 0.50-0.90 [facility] Comment on above: Performed By: #### I NSU #### [address] [address] Unarmed Security Officer: Gee Royal MD [facility] [address] [place] [address] [address]. [place], [place] [phone] Unarmed Security Officer: Loreta Zelaya MD #### CPEP #### [address] [address] Unarmed Security Officer: Gee Royal MD GFR/1.73 sq M.predicted among non-blacks MDRD (S/P/Bld) [Vol rate/Area] mL/min/{1.73_m2} Normal >60 [facility] Comment on above: Result Comment: These [...] secretion. Performed By: #### I NSU #### [address] [address] Unarmed Security Officer: Gee Royal MD [facility] [address] [place] [address] [place] [address] Unarmed Security Officer: Loreta Zelaya MD #### CPEP #### [address] [address] Unarmed Security Officer: Gee Royal MD Glucose [Mass/Vol] 516 mg/dL Critically high 74-99 M [facility] Comment on above: Performed By: #### I NSU #### [address] [address] Unarmed Security Officer: Gee Royal MD [facility] [address] [place] [address] [place], [place] [id number] Unarmed Security Officer: Loreta Zelaya MD #### CPEP #### [address] [address] Unarmed Security Officer: Gee Royal MD Potassium [Moles/Vol] 4.8 mmol/L Normal 3.7-5.3 [facility] Comment on above: Result Comment: Spec imen hemolysis has exceeded the interference as defined by Kat. Value may be falsely increased. Suggest recollection if clinically indicated. Performed By: #### I NSU #### [address] [address] Unarmed Security Officer: Gee Royal MD [facility] [address] [place] [address] [place] [address] Unarmed Security Officer: Loreta Zelaya MD #### CPEP #### [address] [address] Unarmed Security Officer: Gee Royal MD Protein [Mass/Vol] 7.2 g/dL Normal 6.6-8.7 [facility] Comment on above: Performed By: #### I NSU #### [address] [address] Unarmed Security Officer: Gee Royal MD [facility] [address] [place] [address] [address] [place], [place] [phone] Unarmed Security Officer: Loreta Zelaya MD #### CPEP #### [address] [address] Unarmed Security Officer: Gee Royal MD Sodium [Moles/Vol] 130 mmol/L Low 136-145 [facility] Comment on above: Performed By: #### I NSU #### [address] [address] Unarmed Security Officer: Gee Royal MD [facility] [address] [place] [address] [place] [address] Unarmed Security Officer: Loreta Zelaya MD #### CPEP #### [facility] [address] [place] [address] Unarmed Security Officer: Gee Royal MD Urea nitrogen [Mass/Vol] 19 mg/dL Normal 6-20 [facility] Comment on above: Performed By: #### I NSU #### [facility] [address] [place] [address] Unarmed Security Officer: Gee Royal MD [facility] [address] [place] [address] Unarmed Security Officer: Loreta Zelaya MD #### CPEP #### [facility] [address] [place] [address] Unarmed Security Officer: Gee Royal MD Glucose, Whole Bloodon 12-20 Glucose [Mass/Vol] 458 mg/dL High 74 - 100 mg/dL [facility] Interpretation and review of laboratory results Abnormal [facility] Glucose [Mass/Vol] 458 mg/dL High 74-100 [facility] Glucose [Mass/Vol] 506 mg/dL Critically high 74 - 1 00 mg/dL [facility] Interpretation and review of laboratory results Abnormal [facility] Glucose [Mass/Vol] 506 mg/dL Critically high 74-100 [facility] Magnesiumon 12-20-2024 Magnesium [Mass/Vol] 2 mg/dL 1.6 - 2 .6 mg/dL [facility] Magnesium [Mass/Vol] 2.0 mg/dL Normal 1.6-2.6 [facility] Comment on above: Performed By: #### U OSMO #### [facility] [address] [place] [address] Unarmed Security Officer: Gee Royal MD #### URNA #### [facility] [address] [place] [address] Unarmed Security Officer: Loreta Zelaya MD No Panel Informationon 12-20 [facility] Troponinon 06-18-2025 Troponin I.cardiac High sensitivity method [Mass/Vol] ng/L 0 - 14 ng/L [facility] Comment on above: High Sensitivity Tro ponin values cannot be compared with other Troponin methodologies. Troponin, High Sens <6 Normal 0-14 [facility] Comment on above: Result Comment: High Sensitivity Troponin values cannot be compared with other Troponin methodologies. Performed By: #### U OSMO #### [facility] [address] [place], [place] [phone] Unarmed Security Officer: Gee Royal MD #### URNA #### [facility] [address] [place], [place] [phone] Unarmed Security Officer: Loreta Zelaya MD Venous Blood Gaseson 025 Allan Test NOT APPLICABLE [facility] Comment on above: Performed By: #### V BG #### [address] [place], [place] [phone] Unarmed Security Officer: Loreta Zelaya MD Body Temp. 37.[address] [facility] Comment on above: Performed By: #### V BG #### [address] [place], [place] [phone] Unarmed Security Officer: Loreta Zelaya MD FIO2 [address] [facility] Comment on above: Performed By: #### V BG #### [address] [place] [phone] Unarmed Security Officer: Loreta Zelaya MD HCO3 (Bld) [Moles/Vol] 17.9 mmol/L Low 24.0-30.0 M [facility] Comment on above: Performed By: #### V BG #### [facility] [address] [place] [address] Unarmed Security Officer: Loreta Zelaya MD Negative Base Excess 6.3 mmol/L High 0.0-2.0 [facility] Comment on above: Performed By: #### V BG #### [facility] [address] [place] [address] Unarmed Security Officer: Loreta Zelaya MD O2 Device/Flow/% ROOM AIR Normal [facility] Comment on above: Performed By: #### V BG #### [facility] [address] [place] [address] Unarmed Security Officer: Loreta Zelaya MD Oxygen saturation in Blood 83.0 % Normal 60.0-85.0 [facility] Comment on above: Performed By: #### V BG #### [facility] [address] [place] [address] [place] [address] Unarmed Security Officer: Loreta Zelaya MD pCO2 32.4 mm Hg Low 39-55 [facility] Comment on above: Performed By: #### V BG #### [address] [place] [address] Unarmed Security Officer: Loreta Zelaya MD Pco2 Adj'd for Temp. 32.4 mmHg Low 39.0-55.0 [facility] Comment on above: Performed By: #### V BG #### [address] [place] [address] Unarmed Security Officer: Loreta Zelaya MD pH (Bld) 7.361 [pH] Normal 7.32-7.42 [facility] Comment on above: Performed By: #### V BG #### [facility] [address] [place] [address] [place] [address] Unarmed Security Officer: Loreta Zelaya MD pH Adjst'd for Temp. 7.361 Normal 7.320-7.420 [facility] Comment on above: Performed By: #### V BG #### [address] [place] [address] Unarmed Security Officer: Loreta Zelaya MD pO2 48.2 mm Hg Normal 30.0-50.0 [facility] Comment on above: Performed By: #### V BG #### [facility] [address] [place] [address] Unarmed Security Officer: Loreta Zelaya MD pO2 Adj'd for Temp. 48.2 mmHg Normal 30.0-50.0 [facility] Comment on above: Performed By: #### V BG #### [facility] [address] [place] [address] Unarmed Security Officer: Loreta Zelaya MD US PELVIS COMPLETE NON-OB [...] Trino Cantor MD 12/18/24 Final result Normal [facility] MRI LUMBAR SPINE WO CONTRAST on [...] Chas Vásquez MD 12/13/24 Final result Normal [facility] XR KNEE LEFT (1-2 VIEWS)on 0 [...] Emiliano Tran MD 12/10/24 Final result Normal [facility] XR Knee - left 1 or 2 Viewso n 12-10-2024 1. No acute findings. 2. Mild loss of joint space in the medial and lateral compartments compatible with degenerative change. [facility] CONSOLIDATED EXAM: 2 VIEWS XRAY OF THE LEFT KNEE 12/08/2024 03:01:50 PM COMPARISON: None available. CLINICAL HISTORY: Acute pain of left knee. FINDINGS: BONES AND JOINTS: No acute fracture. No focal osseous lesion. No joint dislocation. No significant joint effusion. Mild loss of joint space in the medial and lateral compartments compatible with degenerative change. SOFT TISSUES: The soft tissues are unremarkable. [facility] Emiliano Ellis MD - 12/10/2024 EXAM: 2 [...] and lateral compartments compatible with degenerative change. [facility] XR Knee - left 1 or 2 ViewsO rdered By: Emiliano Tran on 12-10-2024 [facility] Work Phone: HIV Ag/Abon 12-09-2024 HIV Ag/Ab Non-Reactive Normal NR [facility] Comment on above: Result Comment: No l aboratory evidence of HIV infection. If acute HIV infection is suspected, consider testing for HIV-1 RNA. Performed By: #### I NSU #### [address] [address] Unarmed Security Officer: Gee Royal MD [address] [place] [address] Unarmed Security Officer: Loreta Zelaya MD #### CPEP #### [facility] [employer] [facility] [place] [address] Unarmed Security Officer: Gee Royal MD Hepatitis Acute [place]anner 12-09 Hep A Ab,IgM Non-Reactive Normal NR [facility] Comment on above: Performed By: #### I NSU #### [address] [address] Unarmed Security Officer: Gee Royal MD [address] [place] [address] Unarmed Security Officer: Loreta Zelaya MD #### CPEP #### [address] [address] Unarmed Security Officer: Gee Royal MD Hep B Core Ab,IgM Non-Reactive Normal [facility] Comment on above: Performed By: #### I NSU #### [address] [address] Unarmed Security Officer: Gee Royal MD [address] [place] [address] Unarmed Security Officer: Loreta Zelaya MD #### CPEP #### [address] [address] Unarmed Security Officer: Gee Royal MD Hep B Surf Ag Non-Reactive Normal [facility] Comment on above: Performed By: #### I NSU #### [address] [address] Unarmed Security Officer: Gee Royal MD [address] [place] [address] Unarmed Security Officer: Loreta Zelaya MD #### CPEP #### [address] [address] Unarmed Security Officer: Gee Royal MD Hep C Ab Non-Reactive Normal [facility] Comment on above: Result Comment: The hepatitis [...] PCR. Performed By: #### I NSU #### [address] [address] Unarmed Security Officer: Gee Royal MD [address] [place] [address] Unarmed Security Officer: Loreta Zelaya MD #### CPEP #### [address] [address] Unarmed Security Officer: Gee Royal MD Prolactinon 12-09-2024 Prolactin 4.51 ng/mL Low 4.79-23.3 [facility] Comment on above: Result Comment: The presence of macroprolactin may cause interference in female patients with various endocrinological diseases or during . Performed By: #### I NSU #### [address] [address] Unarmed Security Officer: Gee Royal MD [address] [place] [address] Unarmed Security Officer: Loreta Zelaya MD #### CPEP #### [address] [address] Unarmed Security Officer: Gee Royal MD T.pallidum Ab Screenon 12-09 T.pallidum Ab Screen Non-Reactive Normal NR [facility] Comment on above: Result Comment: T. pallidum antibodies are not detected. There is no serological evidence of infection with T. pallidum (early primary syphilis cannot be excluded). Retest in 2-4 weeks if syphilis is clinically suspect. Performed By: #### I NSU #### [address] [address] Unarmed Security Officer: Gee Royal MD [facility] [address] [place] [address] [place] [address] Unarmed Security Officer: Loreta Zealya MD #### CPEP #### [address] [address] Unarmed Security Officer: Gee Royal MD US THYROIDon 12-08-2024 US THYROID EXAMINATION: THYROID ULTRASOUND 12/08/2024 COMPARISON: None. TECHNIQUE: Real-time and color flow sonographic images were obtained using a linear transducer. [id number]. HISTORY: F 49 y/o old. ORDERING SYSTEM [...] (2) 2. Echogenicity: Isoechoic (1) 3. Shape: [id number]-sqku (0) 4. Margins: Ill-defined (0) 5. Echogenic [...] Brandt Kirk DO 12/08/24 Final result Normal [facility] US Thyroid glandon 5 1. 16 [...] more than four nodules should be followed. [facility] CONSOLIDATED EXAMINATION: THYROID ULTRASOUND 12/08/2024 COMPARISON: None. TECHNIQUE: Real-time and color flow sonographic images were obtained using a linear transducer. [id number]. HISTORY: F 49 y/o old. ORDERING SYSTEM [...] (2) 2. Echogenicity: Isoechoic (1) 3. Shape: Kbsor-adkx-nibb (0) 4. Margins: Ill-defined (0) 5. Echogenic foci: None (0) ACR TI-RADS total points: 3 ACR TI-RADS risk category: TR3 Soft tissues: No visualized lymphadenopathy [facility] CONSOLIDATED Brandt Kirk, DO - 12/08/2024 EXAMINATION: THYROID ULTRASOUND 12/08/2024 COMPARISON: None. TECHNIQUE: Real-time and color flow sonographic images were obtained using a linear transducer. [id number]. HISTORY: F 49 y/o old. ORDERING SYSTEM [...] (2) 2. Echogenicity: Isoechoic (1) 3. Shape: Wbtom-kkdt-csog (0) 4. Margins: Ill-defined (0) 5. Echogenic [...] more than four nodules should be followed. [facility] (narrative) [facility] [employer] [facility] US Thyroid glandOrdered By: Brandt Kirk on 12-08-2024 [facility] Work Phone: XR Knee - left 1 or 2 Viewso n 12-08-2024 Radiology Study observation (narrative) [facility] [employer] [facility] CHLAMYDIA/GC BY PCR IMELDA TITUS ABon 12-06-2024 [...] are dependent on adequate specimen collection. Normal [facility] Comment on above: Performed By: #### C GS #### [facility] ([facility]) [address] [place] [address] VIR VAGINITIS PANEL PCRon 2024 VAGINITIS PANEL [...] clinical presentation to determine patient diagnosis. Normal [facility] Comment on above: Performed By: #### V PPCR #### [facility] ([facility]) [address] [place] [address] VIR Albumin/Creat Ratio, Urineon 11-14-2024 Albumin,conc.[place] U <12 Normal 0-20 [facility] Comment on above: Performed By: #### C DP #### [facility] [address] [place] [address] Unarmed Security Officer: Loreta Zelaya MD Albumin/Creat Ratio Can not be calculated Normal 0.0-25.0 [facility] Comment on above: Performed By: #### C DP #### [facility] [address] [place] [address] Unarmed Security Officer: Loreta Zelaya MD Creatinine Conc. 15.9 mg/dL Low 28.0-217.0 [facility] Comment on above: Result Comment: Refe rence range defined for 1st morning urine Performed By: #### C DP #### [facility] [address] [place] [address] Unarmed Security Officer: Loreta Zelaya MD Albumin/Creatinine Ratio, Ur ineon 11-14-2024 Albumin DL <= 20 mg/L (U) [Mass/Vol] mg/L 0 - 20 mg/L [facility] Albumin/Creatinine DL <= 20 mg/L (U) [Ratio] Can not be calculated [facility] Creatinine (U) [Mass/Vol] 15.9 mg/dL Low 28.0 - 217.0 mg/dL [facility] Comment on above: Reference range defi radha for 1st morning urine Interpretation and review of laboratory results Abnormal [facility] CBC with Auto Differentialon 11-14-2024 Basophils (Bld) [#/Vol] 0.03 10*3/uL [facility] Basophils/100 WBC (Bld) 1 % 0 - 2 % B on [facility] Eosinophils (Bld) [#/Vol] 0.08 10*3/uL [facility] Eosinophils/100 WBC (Bld) 2 % 1 - 4 % [facility] Erythrocyte distribution width (RBC) [Ratio] 11.9 % 11.8 - 14.4 % [facility] Hematocrit (Bld) [Volume fraction] 41.4 % 36.3 - 47.1 % [facility] Hemoglobin (Bld) [Mass/Vol] 13.7 g/dL 11.9 - 15.1 g/dL [facility] Immature granulocytes (Bld) [#/Vol] [facility] Immature granulocytes/100 WBC (Bld) 0 % 0 [facility] Lymphocytes/100 WBC (Bld) 29 % 24 - 43 % [facility] Lymphocytes/100 WBC (Bld) 1.41 % [facility] MCH (RBC) [Entitic mass] 32.7 pg 25.2 - 33.5 pg [facility] MCHC (RBC) [Mass/Vol] 33.1 g/dL 28.4 - 34.8 g/dL [facility] MCV (RBC) [Entitic vol] 98.8 fL 82.6 - 102.9 fL [facility] Monocytes/100 WBC (Bld) 6 % 3 - 12 % B on [facility] Monocytes/100 WBC (Bld) 0.31 % B on [facility] Neutrophils/100 WBC (Bld) 62 % 36 - 65 % [facility] Nucleated RBC/100 WBC (Bld) [Ratio] 0 % 0.0 per 100 WBC [facility] Platelet mean volume (Bld) [Entitic vol] 9.8 fL 8.1 - 13.5 fL [facility] Platelets (Bld) [#/Vol] 335 10*3/uL [facility] RBC (Bld) [#/Vol] 4.19 10*6/uL 3.95 - 5.1 1 m/uL [facility] Segmented neutrophils/100 WBC (Bld) 3 % [facility] WBC other (Bld) [#/Vol] 4.9 B on [facility] CBC with Diffon 11-14-2024 Abs. Basophil 0.03 k/uL Normal 0.00-0.20 [facility] Comment on above: Performed By: #### C DP #### [facility] [address] [place] [address] Unarmed Security Officer: Loreta Zelaya MD Abs.Imm.Granulocyte <0.03 Normal 0.00-0.30 [facility] Comment on above: Performed By: #### C DP #### [facility] [address] [place] [address] Unarmed Security Officer: Loreta Zelaya MD Abs.Neutrophil (Seg) 3.00 k/uL Normal 1.50-8.10 [facility] Comment on above: Performed By: #### C DP #### [address] [place], [facility] Unarmed Security Officer: Loreta Zelaya MD Basophils/100 WBC (Bld) 1 % Normal 0-2 M [facility] Comment on above: Performed By: #### C DP #### [address] [place], [place] [address] Unarmed Security Officer: Loreta Zelaya MD Eosinophils (Bld) [#/Vol] 0.08 10*3/uL Normal 0.00-0.44 [facility] Comment on above: Performed By: #### C DP #### [address] [place] [address] Unarmed Security Officer: Loreta Zelaya MD Eosinophils/100 WBC (Bld) 2 % Normal 1-4 [facility] Comment on above: Performed By: #### C DP #### [address] [place], [facility] Unarmed Security Officer: Loreta Zelaya MD Erythrocyte distribution width (RBC) [Ratio] 11.9 % Normal 11.8-14.4 [facility] Comment on above: Performed By: #### C DP #### [address] [place], [place] [address] Unarmed Security Officer: Loreta Zelaya MD Hematocrit (Bld) [Volume fraction] 41.4 % Normal 36.3-47.1 [facility] Comment on above: Performed By: #### C DP #### [address] [place], [facility] Unarmed Security Officer: Loreta Zelaya MD Hemoglobin (Bld) [Mass/Vol] 13.7 g/dL Normal 11.9-15.1 [facility] Comment on above: Performed By: #### C DP #### [facility] [address] [place], [place] [id number] Unarmed Security Officer: Loreta Zelaya MD Immature granulocytes/100 WBC (Bld) 0 % Normal 0 [facility] Comment on above: Performed By: #### C DP #### [facility] [address] [place] [id number] Unarmed Security Officer: Loreta Zelaya MD Lymphocytes (Bld) [#/Vol] 1.41 10*3/uL Normal 1.10-3.70 [facility] Comment on above: Performed By: #### C DP #### [address] [place] [id number] Unarmed Security Officer: Loreta Zelaya MD Lymphocytes/100 WBC (Bld) 29 % Normal 24-43 [facility] Comment on above: Performed By: #### C DP #### [address] [place], [facility] Unarmed Security Officer: Loreta Zelaya MD MCH (RBC) [Entitic mass] 32.7 pg Normal 25.2-33.5 [facility] Comment on above: Performed By: #### C DP #### [address] [place], [place] [id number] Unarmed Security Officer: Loreta Zelaya MD MCHC (RBC) [Mass/Vol] 33.1 g/dL Normal 28.4-34.8 [facility] Comment on above: Performed By: #### C DP #### [address] [place], [facility] Unarmed Security Officer: Loreta Zelaya MD MCV (RBC) [Entitic vol] 98.8 fL Normal 82.6-102.9 M [facility] Comment on above: Performed By: #### C DP #### [address] [place], [facility] Unarmed Security Officer: Loreta Zelaya MD Monocytes (Bld) [#/Vol] 0.31 10*3/uL Normal 0.10-1.20 [facility] Comment on above: Performed By: #### C DP #### [facility] [address] [place], [place] [id number] Unarmed Security Officer: Loreta Zelaya MD Monocytes/100 WBC (Bld) 6 % Normal 3-12 M [facility] Comment on above: Performed By: #### C DP #### [facility] [address] [place] [address] Unarmed Security Officer: Loreta Zelaya MD Neutrophil (Seg) 62 % Normal 36-65 [facility] [place] Comment on above: Performed By: #### C DP #### [address] [place], [place] 1933483 Unarmed Security Officer: Loreta Zelaya MD NRBC Automated 0.0 per 100 WBC Normal 0.0 [facility] Comment on above: Performed By: #### C DP #### [facility] [address] [place] [address] Unarmed Security Officer: Loreta Zelaya MD Platelet mean volume (Bld) [Entitic vol] 9.8 fL Normal 8.1-13.5 [facility] Comment on above: Performed By: #### C DP #### [facility] [address] [place] [address] [place] [address] Unarmed Security Officer: Loreta Zelaya MD Platelets (Bld) [#/Vol] 335 10*3/uL Normal 138-453 [facility] Comment on above: Performed By: #### C DP #### [facility] [address] [place], [place] [id number] Unarmed Security Officer: Loreta Zelaya MD RBC (Bld) [#/Vol] 4.19 10*6/uL Normal 3.95-5.11 [facility] Comment on above: Performed By: #### C DP #### [facility] [address] [place], [place] [phone] Unarmed Security Officer: Loreta Zelaya MD WBC (Bld) [#/Vol] 4.9 10*3/uL Normal 3.5-11.3 [facility] Comment on above: Performed By: #### C DP #### [facility] [address] [place], [place] [id number] Unarmed Security Officer: Loreta Zelaya MD Comp Metabolic Profon 2024 Albumin [Mass/Vol] 4.4 g/dL Normal 3.5-5.2 [facility] Comment on above: Performed By: #### V BG #### [facility] [address] [place], [place] [id number] Unarmed Security Officer: Loreta Zelaya MD Albumin/Glob Ratio 1.6 Normal 1.0-2.5 [facility] Comment on above: Performed By: #### V BG #### [facility] [address] [place], [place] [phone] Unarmed Security Officer: Loreta Zelaya MD Alkaline Phos 224 U/L High 35-104 [facility] Comment on above: Performed By: #### V BG #### [address] [place] [address] Unarmed Security Officer: Loreta Zelaya MD ALT [Catalytic activity/Vol] 24 U/L Normal 10-35 [facility] Comment on above: Performed By: #### V BG #### [facility] [address] [place], [place] 7704083 Unarmed Security Officer: Loreta Zelaya MD Anion gap [Moles/Vol] 13 mmol/L Normal 9-16 [facility] Comment on above: Performed By: #### V BG #### [facility] [address] [place], [place] [phone] Unarmed Security Officer: Loreta Zelaya MD AST [Catalytic activity/Vol] 18 U/L Normal 10-35 [facility] Comment on above: Performed By: #### V BG #### [facility] [address] [place], [place] 8168783 Unarmed Security Officer: Loreta Zelaya MD Bilirubin [Mass/Vol] mg/dL Normal 0.00-1.20 [facility] Comment on above: Performed By: #### V BG #### [facility] [address] [place], [place] [phone] Unarmed Security Officer: Loreta Zelaya MD BUN/CRE Ratio 35 High 9-20 [facility] Comment on above: Performed By: #### V BG #### [facility] [address] [place], [place] [phone] Unarmed Security Officer: Loreta Zelaya MD Calcium [Mass/Vol] 9.4 mg/dL Normal 8.6-10.4 [facility] Comment on above: Performed By: #### V BG #### [facility] [address] [place], [place] 3094683 Unarmed Security Officer: Loreta Zelaya MD Chloride [Moles/Vol] 95 mmol/L Low 98-107 [facility] Comment on above: Performed By: #### V BG #### [facility] [address] [place] [address] [place], [place] 9708883 Unarmed Security Officer: Loreta Zelaya MD CO2 [Moles/Vol] 25 mmol/L Normal 20-31 [facility] Comment on above: Performed By: #### V BG #### [facility] [address] [place], [place] 8850083 Unarmed Security Officer: Loreta Zelaya MD Creatinine [Mass/Vol] 0.6 mg/dL Normal 0.50-0.90 [facility] Comment on above: Performed By: #### V BG #### [facility] [address] [place], [place] [phone] Unarmed Security Officer: Loreta Zelaya MD GFR/1.73 sq M.predicted among non-blacks MDRD (S/P/Bld) [Vol rate/Area] mL/min/{1.73_m2} Normal >60 [facility] Comment on above: Result Comment: These [...] secretion. Performed By: #### V BG #### [address] [place] [address] Unarmed Security Officer: Loreta Zelaya MD Glucose [Mass/Vol] 605 mg/dL Critically high 74-99 M [facility] Comment on above: Performed By: #### V BG #### [address] [place] [address] Unarmed Security Officer: Loreta Zelaya MD Potassium [Moles/Vol] 4.7 mmol/L Normal 3.7-5.3 [facility] Comment on above: Result Comment: Spec imen hemolysis has exceeded the interference as defined by Kat. Value may be falsely increased. Suggest recollection if clinically indicated. Performed By: #### V BG #### [address] [place] [address] Unarmed Security Officer: Loreta Zelaya MD Protein [Mass/Vol] 7.1 g/dL Normal 6.6-8.7 [facility] Comment on above: Performed By: #### V BG #### [address] [place] [address] Unarmed Security Officer: Loreta Zelaya MD Sodium [Moles/Vol] 133 mmol/L Low 136-145 [facility] Comment on above: Performed By: #### V BG #### [address] [place] [address] Unarmed Security Officer: Loreta Zelaya MD Urea nitrogen [Mass/Vol] 21 mg/dL High 6-20 [facility] Comment on above: Performed By: #### V BG #### [facility] [address] [place] [address] Unarmed Security Officer: Loreta Zelaya MD Comprehensive Metabolic Pane [facility] 11-14-2024 Albumin [Mass/Vol] 4.4 g/dL 3.5 - 5.2 g/dL [facility] Albumin/Globulin [Mass ratio] 1.6 {ratio} 1.0 - 2.5 [facility] ALP [Catalytic activity/Vol] 224 U/L High 35 - 104 U/L [facility] ALT [Catalytic activity/Vol] 24 U/L 10 - 35 U/L [facility] Anion gap [Moles/Vol] 13 mmol/L 9 - 16 mmol/L [facility] AST [Catalytic activity/Vol] 18 U/L 10 - 35 U/L [facility] Bilirubin [Mass/Vol] mg/dL 0.00 - 1.20 mg/dL [facility] Calcium [Mass/Vol] 9.4 mg/dL 8.6 - 10. 4 mg/dL [facility] Chloride [Moles/Vol] 95 mmol/L Low 98 - 10 7 mmol/L [facility] CO2 [Moles/Vol] 25 mmol/L 20 - 31 mmol/L [facility] Creatinine [Mass/Vol] 0.6 mg/dL 0.50 - 0.90 mg/dL [facility] Est, Glom Filt Rate - PINF [facility] Comment on above: These results are not [...] Critically high 74 - 9 9 mg/dL [facility] Interpretation and review of laboratory results Abnormal [facility] Potassium [Moles/Vol] 4.7 mmol/L 3.7 - 5.3 mmol/L [facility] Comment on above: Specimen hemolysis h as exceeded the interference as defined by Kat. Value may be falsely increased. Suggest recollection if clinically indicated. Protein [Mass/Vol] 7.1 g/dL 6.6 - 8.7 g/dL [facility] Sodium [Moles/Vol] 133 mmol/L Low 136 - 145 mmol/L [facility] Urea nitrogen [Mass/Vol] 21 mg/dL High 6 - 20 mg/dL [facility] Urea nitrogen/Creatinine [Mass ratio] 35 mg/mg High 9 - 20 [facility] C-Peptideon 10-18-2024 C-Peptide 0.2 ng/mL Low 1.1-4.4 [facility] Comment on above: Performed By: #### I NSU #### [facility] [address] [place], [place] [id number] Unarmed Security Officer: Gee Royal MD [facility] [address] [place] [address] Unarmed Security Officer: Loreta Zelaya MD #### CPEP #### [place] [address]24[address] [place], [place] [phone] Unarmed Security Officer: Gee Royal MD CBC auto differentialon 10-03 Basophils (Bld) [#/Vol] 0.04 10*3/uL [facility] Basophils/100 WBC (Bld) 1 % 0 - 2 % B on [facility] Eosinophils (Bld) [#/Vol] 0.1 10*3/uL [facility] Eosinophils/100 WBC (Bld) 2 % 1 - 4 % [facility] Erythrocyte distribution width (RBC) [Ratio] 13.6 % 11.8 - 14.4 % [facility] Hematocrit (Bld) [Volume fraction] 36.9 % 36.3 - 47.1 % [facility] Hemoglobin (Bld) [Mass/Vol] 11.8 g/dL Low 11.9 - 15.1 g/dL [facility] Immature granulocytes (Bld) [#/Vol] [facility] Immature granulocytes/100 WBC (Bld) 1 % High 0 [facility] Interpretation and review of laboratory results Abnormal [facility] Lymphocytes/100 WBC (Bld) 39 % 24 - 43 % [facility] Lymphocytes/100 WBC (Bld) 1.62 % [facility] MCH (RBC) [Entitic mass] 33.1 pg 25.2 - 33.5 pg [facility] MCHC (RBC) [Mass/Vol] 32 g/dL 28.4 - 34.8 g/dL [facility] MCV (RBC) [Entitic vol] 103.4 fL High 82.6 - 102.9 fL [facility] Monocytes/100 WBC (Bld) 11 % 3 - 12 % B on [facility] Monocytes/100 WBC (Bld) 0.47 % B on [facility] Neutrophils/100 WBC (Bld) 46 % 36 - 65 % [facility] Nucleated RBC/100 WBC (Bld) [Ratio] 0 % 0.0 per 100 WBC [facility] Platelet mean volume (Bld) [Entitic vol] 10 fL 8.1 - 13.5 fL [facility] Platelets (Bld) [#/Vol] 256 10*3/uL [facility] RBC (Bld) [#/Vol] 3.57 10*6/uL Low 3.95 - 5.1 1 m/uL [facility] Segmented neutrophils/100 WBC (Bld) 1.91 % [facility] WBC other (Bld) [#/Vol] 4.2 B on [facility] CBC with Diffon 10-18-2024 Abs. Basophil 0.04 k/uL Normal 0.00-0.20 [facility] Comment on above: Performed By: #### U AMI #### [facility] [address] [place] [address] Unarmed Security Officer: Loreta Zelaya MD Abs.Imm.Granulocyte <0.03 Normal 0.00-0.30 [facility] Comment on above: Performed By: #### U AMIC #### [facility] [address] [place] [address] [place] 9343783 Unarmed Security Officer: Loreta Zelaya MD Abs.Neutrophil (Seg) 1.91 k/uL Normal 1.50-8.10 [facility] Comment on above: Performed By: #### U AMIC #### [address] [place] 9343783 Unarmed Security Officer: Loreta Zelaya MD Basophils/100 WBC (Bld) 1 % Normal 0-2 [facility] Comment on above: Performed By: #### U AMIC #### [address] [place] 9343783 Unarmed Security Officer: Loreta Zelaya MD Eosinophils (Bld) [#/Vol] 0.10 10*3/uL Normal 0.00-0.44 [facility] Comment on above: Performed By: #### U AMIC #### [address] [place], [facility] Unarmed Security Officer: Loreta Zelaya MD Eosinophils/100 WBC (Bld) 2 % Normal 1-4 [facility] Comment on above: Performed By: #### U AMIC #### [address] [place], [facility] Unarmed Security Officer: Loreta Zelaya MD Erythrocyte distribution width (RBC) [Ratio] 13.6 % Normal 11.8-14.4 [facility] Comment on above: Performed By: #### U AMIC #### [address] [place], [facility]83 Unarmed Security Officer: Loreta Zelaya MD Hematocrit (Bld) [Volume fraction] 36.9 % Normal 36.3-47.1 [facility] Comment on above: Performed By: #### U AMIC #### [facility] [address] [place], [place] 0288483 Unarmed Security Officer: Loreta Zelaya MD Hemoglobin (Bld) [Mass/Vol] 11.8 g/dL Low 11.9-15.1 [facility] Comment on above: Performed By: #### U AMIC #### [facility] [address] [place], [place] [phone] Unarmed Security Officer: Loreta Zelaya MD Immature granulocytes/100 WBC (Bld) 1 % High 0 [facility] Comment on above: Performed By: #### U AMIC #### [address] [place] [phone] Unarmed Security Officer: Loreta Zelaya MD Lymphocytes (Bld) [#/Vol] 1.62 10*3/uL Normal 1.10-3.70 [facility] Comment on above: Performed By: #### U AMIC #### [address] [place] [phone] Unarmed Security Officer: Loreta Zelaya MD Lymphocytes/100 WBC (Bld) 39 % Normal 24-43 [facility] Comment on above: Performed By: #### U AMIC #### [address] [place] [phone] Unarmed Security Officer: Loreta Zelaya MD MCH (RBC) [Entitic mass] 33.1 pg Normal 25.2-33.5 [facility] Comment on above: Performed By: #### U AMIC #### [facility] [address] [place] [address] [address] [place] [phone] Unarmed Security Officer: Loreta Zelaya MD MCHC (RBC) [Mass/Vol] 32.0 g/dL Normal 28.4-34.8 [facility] Comment on above: Performed By: #### U AMIC #### [facility] [address] [place] [address] [place] [place] [phone] Unarmed Security Officer: Loreta Zelaya MD MCV (RBC) [Entitic vol] 103.4 fL High 82.6-102.9 [facility] Comment on above: Performed By: #### U AMIC #### [facility] [address] [place] [address] [place], [place] [phone] Unarmed Security Officer: Loreta Zelaya MD Monocytes (Bld) [#/Vol] 0.47 10*3/uL Normal 0.10-1.20 [facility] Comment on above: Performed By: #### U AMIC #### [address] [place] 9343783 Unarmed Security Officer: Loreta Zelaya MD Monocytes/100 WBC (Bld) 11 % Normal 3-12 [facility] Comment on above: Performed By: #### U AMIC #### [address] [place], [facility] Unarmed Security Officer: Loreta Zelaya MD Neutrophil (Seg) 46 % Normal 36-65 [facility] [place] Comment on above: Performed By: #### U AMIC #### [address] [place], [facility] Unarmed Security Officer: Loreta Zelaya MD NRBC Automated 0.0 per 100 WBC Normal 0.0 [facility] Comment on above: Performed By: #### U AMIC #### [facility] [address] [place] [address] Dr[address] [place], [facility] Unarmed Security Officer: Loreta Zelaya MD Platelet mean volume (Bld) [Entitic vol] 10.0 fL Normal 8.1-13.5 [facility] Comment on above: Performed By: #### U AMIC #### [address] [place] [address] Unarmed Security Officer: Loreta Zelaya MD Platelets (Bld) [#/Vol] 256 10*3/uL Normal 138-453 [facility] Comment on above: Performed By: #### U AMIC #### [facility] [address] [place], [place] 7287583 Unarmed Security Officer: Loreta Zelaya MD RBC (Bld) [#/Vol] 3.57 10*6/uL Low 3.95-5.11 [facility] Comment on above: Performed By: #### U AMIC #### [facility] [address] [place], [place] [phone] Unarmed Security Officer: Loreta Zelaya MD WBC (Bld) [#/Vol] 4.2 10*3/uL Normal 3.5-11.3 [facility] Comment on above: Performed By: #### U AMIC #### [facility] [address] [place], [place] 0675983 Unarmed Security Officer: Loreta Zelaya MD Comp Metabolic Pr/rfx MGon 0 - Albumin [Mass/Vol] 2.9 g/dL Low 3.5-5.2 [facility] Comment on above: Performed By: #### U AMIC #### [facility] [address] [place], [place] 2634183 Unarmed Security Officer: Loreta Zelaya MD Albumin/Glob Ratio 1.7 Normal 1.0-2.5 [facility] Comment on above: Performed By: #### U AMIC #### [facility] [address] [place], [place] 0504583 Unarmed Security Officer: Loreta Zelaya MD Alkaline Phos 82 U/L Normal 35-104 [facility] Comment on above: Performed By: #### U AMIC #### [facility] [address] [place] [address] Unarmed Security Officer: Loreta Zelaya MD ALT [Catalytic activity/Vol] 37 U/L High 10-35 [facility] Comment on above: Performed By: #### U AMIC #### [facility] [address] [place], [place] 6469083 Unarmed Security Officer: Loreta Zelaya MD Anion gap [Moles/Vol] 8 mmol/L Low 9-16 [facility] Comment on above: Performed By: #### U AMIC #### [facility] [address] [place], [place] [phone] Unarmed Security Officer: Loreta Zelaya MD AST [Catalytic activity/Vol] 44 U/L High 10-35 [facility] Comment on above: Performed By: #### U AMIC #### [facility] [address] [place], [place] 3083883 Unarmed Security Officer: Loreta Zelaya MD Bilirubin [Mass/Vol] mg/dL Normal 0.00-1.20 [facility] Comment on above: Performed By: #### U AMIC #### [facility] [address] [place], [place] 3706583 Unarmed Security Officer: Loreta Zelaya MD BUN/CRE Ratio 38 High 9-20 [facility] Comment on above: Performed By: #### U AMIC #### [facility] [address] [place], [place] 8607083 Unarmed Security Officer: Loreta Zelaya MD Calcium [Mass/Vol] 8.3 mg/dL Low 8.6-10.4 [facility] Comment on above: Performed By: #### U AMIC #### [facility] [address] [place], [place] [phone] Unarmed Security Officer: Loreta Zelaya MD Chloride [Moles/Vol] 104 mmol/L Normal 98-107 [facility] Comment on above: Performed By: #### U AMIC #### [facility] [address] [place], [place] 2681983 Unarmed Security Officer: Loreta Zelaya MD CO2 [Moles/Vol] 27 mmol/L Normal 20-31 [facility] Comment on above: Performed By: #### U AMIC #### [facility] [address] [place] [address] Unarmed Security Officer: Loreta Zelaya MD Creatinine [Mass/Vol] 0.4 mg/dL Low 0.50-0.90 [facility] Comment on above: Performed By: #### U AMIC #### [facility] [address] [place], [place] [phone] Unarmed Security Officer: Loreta Zelaya MD GFR/1.73 sq M.predicted among non-blacks MDRD (S/P/Bld) [Vol rate/Area] mL/min/{1.73_m2} Normal >60 [facility] Comment on above: Result Comment: These [...] secretion. Performed By: #### U AMIC #### [facility] [address] [place] [address] [place] [address] Unarmed Security Officer: Loreta Zelaya MD Glucose [Mass/Vol] 98 mg/dL Normal 74-99 [facility] Comment on above: Performed By: #### U AMIC #### [facility] [address] [place] [address] Unarmed Security Officer: Loreta Zelaya MD Potassium [Moles/Vol] 4.0 mmol/L Normal 3.7-5.3 [facility] Comment on above: Performed By: #### U AMIC #### [facility] [address] [place] [address] Unarmed Security Officer: Loreta Zelaya MD Protein [Mass/Vol] 4.7 g/dL Low 6.6-8.7 [facility] Comment on above: Performed By: #### U AMIC #### [facility] [address] [place] [address] Unarmed Security Officer: Loreta Zelaya MD Sodium [Moles/Vol] 139 mmol/L Normal 136-145 [facility] Comment on above: Performed By: #### U AMIC #### [facility] [address] [place] [address] Unarmed Security Officer: Loreta Zelaya MD Urea nitrogen [Mass/Vol] 15 mg/dL Normal 6-20 [facility] Comment on above: Performed By: #### U AMIC #### [facility] [address] [place] [address] Unarmed Security Officer: Loreta Zelaya MD Comprehensive Metabolic Pane l w/ Reflex to MGon 10-18-2024 Albumin [Mass/Vol] 2.9 g/dL Low 3.5 - 5.2 g/dL [facility] Albumin/Globulin [Mass ratio] 1.7 {ratio} 1.0 - 2.5 [facility] ALP [Catalytic activity/Vol] 82 U/L 35 - 104 U/L [facility] ALT [Catalytic activity/Vol] 37 U/L High 10 - 35 U/L [facility] Anion gap [Moles/Vol] 8 mmol/L Low 9 - 16 mmol/L [facility] AST [Catalytic activity/Vol] 44 U/L High 10 - 35 U/L [facility] Bilirubin [Mass/Vol] mg/dL 0.00 - 1.20 mg/dL [facility] Calcium [Mass/Vol] 8.3 mg/dL Low 8.6 - 10. 4 mg/dL [facility] Chloride [Moles/Vol] 104 mmol/L 98 - 10 7 mmol/L [facility] CO2 [Moles/Vol] 27 mmol/L 20 - 31 mmol/L [facility] Creatinine [Mass/Vol] 0.4 mg/dL Low 0.50 - 0.90 mg/dL [facility] Est, Glom Filt Rate - PINF [facility] Comment on above: These results are not [...] [Mass/Vol] 98 mg/dL 74 - 99 mg/dL [facility] Interpretation and review of laboratory results Abnormal [facility] Potassium [Moles/Vol] 4 mmol/L 3.7 - 5.3 mmol/L [facility] Protein [Mass/Vol] 4.7 g/dL Low 6.6 - 8.7 g/dL [facility] Sodium [Moles/Vol] 139 mmol/L 136 - 145 mmol/L [facility] Urea nitrogen [Mass/Vol] 15 mg/dL 6 - 20 mg/dL [facility] Urea nitrogen/Creatinine [Mass ratio] 38 mg/mg High 9 - 20 [facility] EKG Rhythm Stripon 5 [facility] Glucose, Whole Bloodon 10-18 Glucose [Mass/Vol] 230 mg/dL High 74 - 100 mg/dL [facility] Interpretation and review of laboratory results Abnormal [facility] Glucose [Mass/Vol] 230 mg/dL High 74-100 [facility] Glucose [Mass/Vol] 99 mg/dL 74 - 100 mg/dL [facility] Glucose [Mass/Vol] 99 mg/dL Normal 74-100 [facility] Insulinon 10-18-2024 Insulin 1.1 mU/L Normal [facility] Comment on above: Performed By: #### I NSU #### [facility] [employer] [address] [place] [address] Unarmed Security Officer: Gee Royal MD [facility] [address] [place] [address] Unarmed Security Officer: Loreta Zelaya MD #### CPEP #### [place] [place] [address] Unarmed Security Officer: Gee Royal MD Reference Range Normal [facility] Comment on above: Result Comment: Fast in.6-24.9 30 min: 20-112 60 min: 29-88 90 min: 26-84 120 min: 22-79 Performed By: #### I NSU #### [address] [address] Unarmed Security Officer: Gee Royal MD [facility] [address] [place] [address] [place] [address] Unarmed Security Officer: Loreta Zelaya MD #### CPEP #### [address] [address] Unarmed Security Officer: Gee Royal MD Collection Info. 0615 Normal [facility] Comment on above: Performed By: #### I NSU #### [address] [address] Unarmed Security Officer: Gee Royal MD [facility] [address] [place] [address] [place] [address] Unarmed Security Officer: Loreta Zelaya MD #### CPEP #### [address] [id number] Unarmed Security Officer: Gee Royal MD TSHon 10-18-2024 TSH Qn 3.09 m[IU]/L [facility] Thyroid Stim. Horm.on 2024 Thyroid Stim. Horm. 3.09 uIU/mL Normal 0.27-4.20 [facility] Comment on above: Performed By: #### U AMIC #### [facility] [address] [place] [address] Unarmed Security Officer: Loreta Zelaya MD Thyroxine, Freeon 10-18-2024 Thyroxine, Free 0.9 ng/dL Low 0.92-1.68 [facility] Comment on above: Performed By: #### U AMIC #### [facility] [address] [place], [place] [id number] Unarmed Security Officer: Loreta Zelaya MD Albumin/Creat Ratio, Urineon 10-17-2024 Albumin,conc.[place] U <12 Normal 0-20 [facility] Comment on above: Performed By: #### U AMIC #### [facility] [address] [place], [place] [address]83 Unarmed Security Officer: Loreta Zelaya MD Albumin/Creat Ratio Can not be calculated Normal 0.0-25.0 [facility] Comment on above: Performed By: #### U AMIC #### [facility] [address] [place], [place] [address]83 Unarmed Security Officer: Loreta Zelaya MD Creatinine Conc. 46.7 mg/dL Normal 28.0-217.0 [facility] [place] Comment on above: Result Comment: Refe rence range defined for 1st morning urine Performed By: #### U AMIC #### [facility] [address] [place] [address] [place] [address] Unarmed Security Officer: Loreta Zelaya MD Albumin/Creatinine Ratio, Ur ineon 10-17-2024 Albumin DL <= 20 mg/L (U) [Mass/Vol] mg/L 0 - 20 mg/L [facility] Albumin/Creatinine DL <= 20 mg/L (U) [Ratio] Can not be calculated [facility] Creatinine (U) [Mass/Vol] 46.7 mg/dL 28.0 - 217.0 mg/dL [facility] Comment on above: Reference range defi radha for 1st morning urine [facility] CBC auto differentialon 10-03 Basophils (Bld) [#/Vol] 0.04 10*3/uL [facility] Basophils/100 WBC (Bld) 1 % 0 - 2 % B on [facility] Eosinophils (Bld) [#/Vol] 0.11 10*3/uL [facility] Eosinophils/100 WBC (Bld) 3 % 1 - 4 % [facility] Erythrocyte distribution width (RBC) [Ratio] 13.5 % 11.8 - 14.4 % [facility] Hematocrit (Bld) [Volume fraction] 34.7 % Low 36.3 - 47.1 % [facility] Hemoglobin (Bld) [Mass/Vol] 11.3 g/dL Low 11.9 - 15.1 g/dL [facility] Immature granulocytes (Bld) [#/Vol] [facility] Immature granulocytes/100 WBC (Bld) 1 % High 0 [facility] Interpretation and review of laboratory results Abnormal [facility] Lymphocytes/100 WBC (Bld) 45 % High 24 - 43 % [facility] Lymphocytes/100 WBC (Bld) 1.57 % [facility] MCH (RBC) [Entitic mass] 33 pg 25.2 - 33.5 pg [facility] MCHC (RBC) [Mass/Vol] 32.6 g/dL 28.4 - 34.8 g/dL [facility] MCV (RBC) [Entitic vol] 101.5 fL 82.6 - 102.9 fL [facility] Monocytes/100 WBC (Bld) 14 % High 3 - 12 % B on [facility] Monocytes/100 WBC (Bld) 0.48 % B on [facility] Neutrophils/100 WBC (Bld) 36 % 36 - 65 % [facility] Nucleated RBC/100 WBC (Bld) [Ratio] 0 % 0.0 per 100 WBC [facility] Platelet mean volume (Bld) [Entitic vol] 10.1 fL 8.1 - 13.5 fL [facility] Platelets (Bld) [#/Vol] 219 10*3/uL [facility] RBC (Bld) [#/Vol] 3.42 10*6/uL Low 3.95 - 5.1 1 m/uL [facility] Segmented neutrophils/100 WBC (Bld) 1.26 % Low [facility] WBC other (Bld) [#/Vol] 3.5 B on [facility] CBC with Diffon 10-17-2024 Abs. Basophil 0.04 k/uL Normal 0.00-0.20 [facility] Comment on above: Performed By: #### B MP #### [facility] [address] [place] [address] Unarmed Security Officer: Loreta Zelaya MD Abs.Imm.Granulocyte <0.03 Normal 0.00-0.30 [facility] Comment on above: Performed By: #### B MP #### [facility] [address] [place] [address] Unarmed Security Officer: Loreta Zelaya MD Abs.Neutrophil (Seg) 1.26 k/uL Low 1.50-8.10 [facility] Comment on above: Performed By: #### B MP #### [facility] [address] [place] [address] [place], [place] [id number] Unarmed Security Officer: Loreta Zelaya MD Basophils/100 WBC (Bld) 1 % Normal 0-2 [facility] Comment on above: Performed By: #### B MP #### [address] [place] [address] Unarmed Security Officer: Loreta Zelaya MD Eosinophils (Bld) [#/Vol] 0.11 10*3/uL Normal 0.00-0.44 [facility] Comment on above: Performed By: #### B MP #### [facility] [address] [place] [address] Unarmed Security Officer: Loreta Zelaya MD Eosinophils/100 WBC (Bld) 3 % Normal 1-4 [facility] Comment on above: Performed By: #### B MP #### [facility] [address] [place], [place] [id number] Unarmed Security Officer: Loreta Zelaya MD Erythrocyte distribution width (RBC) [Ratio] 13.5 % Normal 11.8-14.4 [facility] Comment on above: Performed By: #### B MP #### [facility] [address] [place], [place] [id number] Unarmed Security Officer: Loreta Zelaya MD Hematocrit (Bld) [Volume fraction] 34.7 % Low 36.3-47.1 [facility] Comment on above: Performed By: #### B MP #### [facility] [address] [place], [place] [id number] Unarmed Security Officer: Loreta Zelaya MD Hemoglobin (Bld) [Mass/Vol] 11.3 g/dL Low 11.9-15.1 [facility] Comment on above: Performed By: #### B MP #### [facility] [address] [place], [place] 3373283 Unarmed Security Officer: Loreta Zelaya MD Immature granulocytes/100 WBC (Bld) 1 % High 0 [facility] Comment on above: Performed By: #### B MP #### [facility] [address] [place], [facility] Unarmed Security Officer: Loreta Zelaya MD Lymphocytes (Bld) [#/Vol] 1.57 10*3/uL Normal 1.10-3.70 [facility] Comment on above: Performed By: #### B MP #### [facility] [address] [place], [facility] Unarmed Security Officer: Loreta Zelaya MD Lymphocytes/100 WBC (Bld) 45 % High 24-43 [facility] Comment on above: Performed By: #### B MP #### [facility] [address] [place] [id number] Unarmed Security Officer: Loreta Zelaya MD MCH (RBC) [Entitic mass] 33.0 pg Normal 25.2-33.5 [facility] Comment on above: Performed By: #### B MP #### [facility] [address] [place] [address] Unarmed Security Officer: Loreta Zelaya MD MCHC (RBC) [Mass/Vol] 32.6 g/dL Normal 28.4-34.8 [facility] Comment on above: Performed By: #### B MP #### [address] [place], [place] 0430783 Unarmed Security Officer: Loreta Zelaya MD MCV (RBC) [Entitic vol] 101.5 fL Normal 82.6-102.9 [facility] Comment on above: Performed By: #### B MP #### [address] [place], [place] 5870983 Unarmed Security Officer: Loreta Zelaya MD Monocytes (Bld) [#/Vol] 0.48 10*3/uL Normal 0.10-1.20 [facility] Comment on above: Performed By: #### B MP #### [address] [place], [place] 0813483 Unarmed Security Officer: Loreta Zelaya MD Monocytes/100 WBC (Bld) 14 % High 3-12 [facility] Comment on above: Performed By: #### B MP #### [address] [place], [place] 4841583 Unarmed Security Officer: Loreta Zelaya MD Neutrophil (Seg) 36 % Normal 36-65 [facility] [place] Comment on above: Performed By: #### B MP #### [address] [place], [facility] Unarmed Security Officer: Loreta Zelaya MD NRBC Automated 0.0 per 100 WBC Normal 0.0 [facility] Comment on above: Performed By: #### B MP #### [address] [place], [place] 0431583 Unarmed Security Officer: Loreta Zelaya MD Platelet mean volume (Bld) [Entitic vol] 10.1 fL Normal 8.1-13.5 [facility] Comment on above: Performed By: #### B MP #### [facility] [address] [place], [place] 5490483 Unarmed Security Officer: Loreta Zelaya MD Platelets (Bld) [#/Vol] 219 10*3/uL Normal 138-453 [facility] Comment on above: Performed By: #### B MP #### [facility] [address] [place], [place] 0651083 Unarmed Security Officer: Loreta Zelaya MD RBC (Bld) [#/Vol] 3.42 10*6/uL Low 3.95-5.11 [facility] Comment on above: Performed By: #### B MP #### [facility] [address] [place], [place] [id number] Unarmed Security Officer: Loreta Zelaya MD WBC (Bld) [#/Vol] 3.5 10*3/uL Normal 3.5-11.3 [facility] Comment on above: Performed By: #### B MP #### [address] [place], [place] 0782683 Unarmed Security Officer: Loreta Zelaya MD CTA ABDOMEN PELVIS W [...] Hosea Martinez MD 10/17/24 Final result Normal [facility] CTA Abdominal vessels and Pe lvis vessels W contrast Wesley 10-17-2024 1. Unremarkable abdominopelvic arteries. No aneurysm or dissection. 2. Moderate diffuse body wall edema which may reflect anasarca. 3. Uterus appears unremarkable as visualized. 4. Probable constipation. 5. Additional findings, as above. [facility] CONSOLIDATED EXAMINATION: CTA OF THE ABDOMEN AND [...] Probable constipation. 5. Additional findings, as above. [facility] Radiology Study observation (narrative) [facility] CTA Abdominal vessels and Pe lvis vessels W contrast IVOrdered By: Hosea Martinez on 10-17-2024 [facility] Work Phone: Comp Metabolic Pr/rfx MGon 0 10-17-2024 Albumin [Mass/Vol] 3.0 g/dL Low 3.5-5.2 [facility] Comment on above: Performed By: #### B MP #### [facility] [address] [place] [address] Unarmed Security Officer: Loreta Zelaya MD Albumin/Glob Ratio 1.9 Normal 1.0-2.5 [facility] Comment on above: Performed By: #### B MP #### [facility] [address] [place], [place] 8992183 Unarmed Security Officer: Loreta Zelaya MD Alkaline Phos 104 U/L Normal 35-104 [facility] Comment on above: Performed By: #### B MP #### [facility] [address] [place], [place] 4114583 Unarmed Security Officer: Loreta Zelaya MD ALT [Catalytic activity/Vol] 34 U/L Normal 10-35 [facility] Comment on above: Performed By: #### B MP #### [facility] [address] [place], [place] 3367083 Unarmed Security Officer: Loreta Zelaya MD Anion gap [Moles/Vol] 8 mmol/L Low 9-16 [facility] Comment on above: Performed By: #### B MP #### [facility] [address] [place], [place] 8783583 Unarmed Security Officer: Loreta Zelaya MD AST [Catalytic activity/Vol] 28 U/L Normal 10-35 [facility] Comment on above: Performed By: #### B MP #### [facility] [address] [place], [place] 2108483 Unarmed Security Officer: Loreta Zelaya MD Bilirubin [Mass/Vol] mg/dL Normal 0.00-1.20 [facility] Comment on above: Performed By: #### B MP #### [facility] [address] [place], [place] 9743083 Unarmed Security Officer: Loreta Zelaya MD BUN/CRE Ratio 38 High 9-20 [facility] Comment on above: Performed By: #### B MP #### [facility] [address] [place], [place] 1725583 Unarmed Security Officer: Loreta Zelaya MD Calcium [Mass/Vol] 8.2 mg/dL Low 8.6-10.4 [facility] Comment on above: Performed By: #### B MP #### [facility] [address] [place], [place] 6456183 Unarmed Security Officer: Loreta Zelaya MD Chloride [Moles/Vol] 103 mmol/L Normal 98-107 [facility] Comment on above: Performed By: #### B MP #### [facility] [address] [place], [place] 6378583 Unarmed Security Officer: Loreta Zelaya MD CO2 [Moles/Vol] 26 mmol/L Normal 20-31 [facility] Comment on above: Performed By: #### B MP #### [facility] [address] [place], [place] 7857783 Unarmed Security Officer: Loreta Zelaya MD Creatinine [Mass/Vol] 0.4 mg/dL Low 0.50-0.90 [facility] Comment on above: Performed By: #### B MP #### [facility] [address] [place], [place] 566[address]3 Unarmed Security Officer: Loreta Zelaya MD GFR/1.73 sq M.predicted among non-blacks MDRD (S/P/Bld) [Vol rate/Area] mL/min/{1.73_m2} Normal >60 [facility] Comment on above: Result Comment: These [...] secretion. Performed By: #### B MP #### [facility] [address] [place] [address] Unarmed Security Officer: Loreta Zelaya MD Glucose [Mass/Vol] 248 mg/dL High 74-99 [facility] Comment on above: Performed By: #### B MP #### [facility] [address] [place] [address] [place] [address] Unarmed Security Officer: Loreta Zelaya MD Potassium [Moles/Vol] 3.8 mmol/L Normal 3.7-5.3 [facility] Comment on above: Performed By: #### B MP #### [facility] [address] [place] [address] [address] [place], [place] 6492883 Unarmed Security Officer: Loreta Zelaya MD Protein [Mass/Vol] 4.5 g/dL Low 6.6-8.7 [facility] Comment on above: Performed By: #### B MP #### [address] [place], [place] 289[address]283 Unarmed Security Officer: Loreta Zelaya MD Sodium [Moles/Vol] 137 mmol/L Normal 136-145 [facility] Comment on above: Performed By: #### B MP #### [address] [place], [place] 0968583 Unarmed Security Officer: Loreta Zelaya MD Urea nitrogen [Mass/Vol] 15 mg/dL Normal 6-20 [facility] Comment on above: Performed By: #### B MP #### [facility] [address] [place] [address] [place] [place], [place] 0205983 Unarmed Security Officer: Loreta Zelaya MD Comprehensive Metabolic Pane l w/ Reflex to MGon 10-17-2024 Albumin [Mass/Vol] 3 g/dL Low 3.5 - 5.2 g/dL [facility] Albumin/Globulin [Mass ratio] 1.9 {ratio} 1.0 - 2.5 [facility] ALP [Catalytic activity/Vol] 104 U/L 35 - 104 U/L [facility] ALT [Catalytic activity/Vol] 34 U/L 10 - 35 U/L [facility] Anion gap [Moles/Vol] 8 mmol/L Low 9 - 16 mmol/L [facility] AST [Catalytic activity/Vol] 28 U/L 10 - 35 U/L [facility] Bilirubin [Mass/Vol] mg/dL 0.00 - 1.20 mg/dL [facility] Calcium [Mass/Vol] 8.2 mg/dL Low 8.6 - 10. 4 mg/dL [facility] Chloride [Moles/Vol] 103 mmol/L 98 - 10 7 mmol/L [facility] CO2 [Moles/Vol] 26 mmol/L 20 - 31 mmol/L [facility] Creatinine [Mass/Vol] 0.4 mg/dL Low 0.50 - 0.90 mg/dL [facility] Est, Glohayley Garciat Rate - PINF [facility] Comment on above: These results are not [...] 248 mg/dL High 74 - 99 mg/dL [facility] Interpretation and review of laboratory results Abnormal [facility] Potassium [Moles/Vol] 3.8 mmol/L 3.7 - 5.3 mmol/L [facility] Protein [Mass/Vol] 4.5 g/dL Low 6.6 - 8.7 g/dL [facility] Sodium [Moles/Vol] 137 mmol/L 136 - 145 mmol/L [facility] Urea nitrogen [Mass/Vol] 15 mg/dL 6 - 20 mg/dL [facility] Urea nitrogen/Creatinine [Mass ratio] 38 mg/mg High 9 - 20 [facility] EKG 12 Leadon 10-17-2024 Atrial Rate 88 BPM [facility] P [place] 68 degrees [facility] P-R Interval 144 ms [facility] Q-T Interval 380 ms [facility] QRS Duration 82 ms [facility] QTc Calculation (Bazett) 459 ms [facility] R [place] 42 degrees [facility] T [place] 63 degrees [facility] Ventricular Rate 88 BPM [facility] Normal sinus rhythm Low voltage QRS Borderline ECG No previous ECGs available Confirmed by BECKY AVILA ([id number]) on 10/17/2024 9:32:24 AM [facility] RADIOLOGY Becky Avila MD - 10/17/2024 Normal sinus rhythm Low voltage QRS Borderline ECG No previous ECGs available Confirmed by BECKY AVILA ([id number]) on 10/17/2024 9:32:24 AM [facility] EKG Rhythm Stripon [facility] Glucose, Whole Bloodon 10-17 Glucose [Mass/Vol] 119 mg/dL High 74 - 100 mg/dL [facility] Interpretation and review of laboratory results Abnormal [facility] Glucose [Mass/Vol] 119 mg/dL High 74-100 [facility] Glucose [Mass/Vol] 191 mg/dL High 74 - 100 mg/dL [facility] Interpretation and review of laboratory results Abnormal [facility] Glucose [Mass/Vol] 191 mg/dL High 74-100 [facility] Glucose [Mass/Vol] 111 mg/dL High 74 - 100 mg/dL [facility] Interpretation and review of laboratory results Abnormal [facility] Glucose [Mass/Vol] 111 mg/dL High 74-100 [facility] Glucose [Mass/Vol] 172 mg/dL High 74 - 100 mg/dL [facility] Interpretation and review of laboratory results Abnormal [facility] Glucose [Mass/Vol] 172 mg/dL High 74-100 [facility] Glucose [Mass/Vol] 402 mg/dL High 74 - 100 mg/dL [facility] Interpretation and review of laboratory results Abnormal [facility] Glucose [Mass/Vol] 402 mg/dL High 74-100 [facility] Hemoglobin A1Con 10-17-2024 Average glucose Estimated from glycated hemoglobin (Bld) [Mass/Vol] 364 mg/dL [facility] Comment on above: The ADA and AACC rec ommend providing the estimated average glucose result to permit better patient understanding of their HBA1c result. HbA1c (Bld) [Mass fraction] 14.3 % High 4.0 - 6.0 % [facility] Interpretation and review of laboratory results Abnormal [facility] Glucose [Mass/Vol] 364 mg/dL Normal [facility] Comment on above: Result Comment: The ADA and AACC recommend providing the estimated average glucose result to permit better patient understanding of their HBA1c result. Performed By: #### C DP #### [facility] [address] [place] [address] Unarmed Security Officer: Loreta Zelaya MD HbA1c (Bld) [Mass fraction] 14.3 % High 4.0-6.0 [facility] Comment on above: Performed By: #### C DP #### [facility] [address] [place] [address] Unarmed Security Officer: Loreta Zelaya MD Osmolality, Urineon 10-18-19 25 Osmolality (U) [Osmolality] 476 mosm/kg [facility] Osmolality - Urine 476 mOsm/kg Normal 80-1300 [facility] Comment on above: Performed By: #### U OSMO #### [facility] [address] [place] [address] Unarmed Security Officer: Gee Royal MD #### URNA #### [facility] [address] [place] [address] Unarmed Security Officer: Loreta Zelyaa MD Protein / creatinine ratio, urineon 10-17-2024 Creatinine (U) [Mass/Vol] 43.9 mg/dL 28.0 - 217.0 mg/dL [facility] Interpretation and review of laboratory results Abnormal [facility] Protein (U) [Mass/Vol] 10 mg/dL [facility] Comment on above: No normal range esta blished. Urine Total Protein Creatinine Ratio 0.23 High 0.00 - 0.20 [facility] Protein,Tot,[place] Uron 2024 Creatinine [Mass/Vol] 43.9 mg/dL Normal 28.0-217.0 [facility] Comment on above: Performed By: #### C DP #### [facility] [address] [place], [place] [id number] Unarmed Security Officer: Loreta Zelaya MD Tot Prot. Conc. 10 mg/dL Normal [facility] Comment on above: Result Comment: No n ormal range established. Performed By: #### C DP #### [facility] [address] [place], [place] 6980683 Unarmed Security Officer: Loreta Zelaya MD TP/Cre Ratio 0.23 High 0.00-0.20 [facility] Comment on above: Performed By: #### C DP #### [facility] [address] [place], [place] 6378783 Unarmed Security Officer: Loreta Zelaya MD Sodium, Random Uron 10-18-19 25 Sodium (U) [Moles/Vol] 30 mmol/L Normal [facility] Comment on above: No normal range esta blished. Result Comment: No n ormal range established. Performed By: #### U OSMO #### [facility] [employer] [address] [place], [place] [id number] Unarmed Security Officer: Gee Royal MD #### URNA #### [facility] [address] [place] [address] Unarmed Security Officer: Loreta Zelaya MD Sodium, urine, randomon 04- [facility] Urinalysis w/ Microon 2024 Bacteria 2+ Abnormal NONE [facility] Comment on above: Performed By: #### B MP #### [facility] [address] [place], [place] [phone] Unarmed Security Officer: Loreta Zelaya MD Bilirubin, SemiQt,Ur Negative Normal NEG [facility] Comment on above: Performed By: #### B MP #### [facility] [address] [place], [place] 0961783 Unarmed Security Officer: Loreta Zelaya MD Blood, Urine Negative Normal NEG [facility] Comment on above: Performed By: #### B MP #### [facility] [address] [place], [place] [phone] Unarmed Security Officer: Loreta Zelaya MD Clarity (U) Clear Normal CLEAR [facility] Comment on above: Performed By: #### B MP #### [facility] [address] [place], [place] [phone] Unarmed Security Officer: Loreta Zelaya MD Color (U) Yellow Normal YEL [facility] Comment on above: Performed By: #### B MP #### [facility] [address] [place], [place] [phone] Unarmed Security Officer: Loreta Zelaya MD Epithelial cells LM Ql (Urine sed) 5 TO 10 Normal 0-25 [facility] Comment on above: Performed By: #### B MP #### [facility] [address] [place] [address] Unarmed Security Officer: Loreta Zelaya MD Glucose Ql (U) 3+ mg/dL Abnormal NEG [facility] Comment on above: Performed By: #### B MP #### [facility] [address] [place], [place] 3163883 Unarmed Security Officer: Loreta Zelaya MD Ketones Ql (U) Negative Normal NEG [facility] Comment on above: Performed By: #### B MP #### [facility] [address] [place], [place] [phone] Unarmed Security Officer: Loreta Zelaya MD Leukocyte esterase Test strip Ql (U) Negative Normal NEG [facility] Comment on above: Performed By: #### B MP #### [facility] [address] [place] [address] [place] [place], [place] [phone] Unarmed Security Officer: Loreta Zelaya MD Nitrite,Ur Negative Normal NEG [facility] Comment on above: Performed By: #### B MP #### [facility] [address] [place] [address] [place] [place], [place] 7902183 Unarmed Security Officer: Loreta Zelaya MD PH,Ur 6.0 Normal 5.0-9.0 [facility] Comment on above: Performed By: #### B MP #### [address] [place], [place] 4972083 Unarmed Security Officer: Loreta Zelaya MD Protein Ql (U) Negative Normal NEG [facility] Comment on above: Performed By: #### B MP #### [facility] [address] [place] [address] [place] [place], [place] [phone] Unarmed Security Officer: Loreta Zelaya MD Spec. [place],Ur 1.010 Normal 1.010-1.020 [facility] Comment on above: Performed By: #### B MP #### [address] [place], [place] 8261483 Unarmed Security Officer: Loreta Zelaya MD Urine RBC's 0 TO 2 Normal 0-2 [facility] Comment on above: Performed By: #### B MP #### [facility] [address] [place] [address] [place] [place], [place] [id number] Unarmed Security Officer: Loreta Zelaya MD Urine WBC's 2 TO 5 Normal 0-5 [facility] Comment on above: Performed By: #### B MP #### [facility] [address] [place] [address] [place] [place], [place] [id number] Unarmed Security Officer: Loreta Zelaya MD Urobilinogen,Ur Normal Normal 0.0-1.0 [facility] Comment on above: Performed By: #### B MP #### [facility] [address] [place] [address] Unarmed Security Officer: Loreta Zelaya MD Yeast PRESENCE NOTED Abnormal [facility]ONE [facility] Comment on above: Performed By: #### B MP #### [facility] [address] [place] [address] Unarmed Security Officer: Loreta Zelaya MD Urinalysis with Microscopico n 10-17-2024 Bacteria LM Ql (Urine sed) 2+ Abnormal None [facility] Bilirubin Ql (U) Negative NEGATIVE [facility] Clarity (U) Clear Clear [facility] Color (U) Yellow Yellow [facility] Epithelial cells LM.HPF (Urine sed) [#/Area] 5 TO 10 [facility] Glucose Test strip (U) [Mass/Vol] 3+ Abnormal NEGATIVE mg/dL [facility] Hemoglobin Auto test strip Ql (U) Negative NEGATIVE [facility] Interpretation and review of laboratory results Abnormal [facility] Ketones (U) [Mass/Vol] Negative NEGAT AMITA mg/dL [facility] Leukocyte esterase Test strip Ql (U) Negative NEGATIVE [facility] Nitrite Ql (U) Negative NEGATIVE [place] pH (U) 6 [pH] 5.0 - 9.0 [facility] Protein (U) [Mass/Vol] Negative NEGAT AMITA mg/dL [facility] RBC LM.HPF (Urine sed) [#/Area] 0 TO 2 [facility] Specific gravity (U) [Rel density] 1.01 1.010 - 1.020 [facility] Urobilinogen Qn (U) Normal 0.0 - 1. 0 EU/dL [facility] WBC LM.HPF (Urine sed) [#/Area] 2 TO 5 [facility] Yeast LM Ql (Urine sed) PRESENCE NOTED Abnormal None [facility] Brain Natri. Peptideon 10-16 Natriuretic peptide B (Bld) [Mass/Vol] 299 pg/mL High 0-125 [facility] Comment on above: Performed By: #### C DP #### [facility] [address] [place] [address] Unarmed Security Officer: Loreta Zelaya MD Brain Natriuretic Peptideon 10-16-2024 Natriuretic peptide B (Bld) [Mass/Vol] 299 pg/mL High 0 - 125 pg/mL [facility] CBC with Auto Differentialon 10-16-2024 Basophils (Bld) [#/Vol] 0.05 10*3/uL [facility] Basophils/100 WBC (Bld) 1 % 0 - 2 % B on [facility] Eosinophils (Bld) [#/Vol] 0.12 10*3/uL [facility] Eosinophils/100 WBC (Bld) 3 % 1 - 4 % [facility] Erythrocyte distribution width (RBC) [Ratio] 13.3 % 11.8 - 14.4 % [facility] Hematocrit (Bld) [Volume fraction] 35.7 % Low 36.3 - 47.1 % [facility] Hemoglobin (Bld) [Mass/Vol] 11.7 g/dL Low 11.9 - 15.1 g/dL [facility] Immature granulocytes (Bld) [#/Vol] [facility] Immature granulocytes/100 WBC (Bld) 0 % 0 [facility] Interpretation and review of laboratory results Abnormal [facility] Lymphocytes/100 WBC (Bld) 34 % 24 - 43 % [facility] Lymphocytes/100 WBC (Bld) 1.57 % [facility] MCH (RBC) [Entitic mass] 33.5 pg 25.2 - 33.5 pg [facility] MCHC (RBC) [Mass/Vol] 32.8 g/dL 28.4 - 34.8 g/dL [facility] MCV (RBC) [Entitic vol] 102.3 fL 82.6 - 102.9 fL [facility] Monocytes/100 WBC (Bld) 12 % 3 - 12 % B on [facility] Monocytes/100 WBC (Bld) 0.55 % B on [facility] Neutrophils/100 WBC (Bld) 50 % 36 - 65 % [facility] Nucleated RBC/100 WBC (Bld) [Ratio] 0 % 0.0 per 100 WBC [facility] Platelet mean volume (Bld) [Entitic vol] 10.4 fL 8.1 - 13.5 fL [facility] Platelets (Bld) [#/Vol] 238 10*3/uL [facility] RBC (Bld) [#/Vol] 3.49 10*6/uL Low 3.95 - 5.1 1 m/uL [facility] Segmented neutrophils/100 WBC (Bld) 2.37 % [facility] WBC other (Bld) [#/Vol] 4.7 B on [facility] CBC with Diffon 10-16-2024 Abs. Basophil 0.05 k/uL Normal 0.00-0.20 [facility] Comment on above: Performed By: #### C DP #### [facility] [address] [place] [address] [place]. [place], [place] [phone] Unarmed Security Officer: Loreta Zelaya MD Abs.Imm.Granulocyte <0.03 Normal 0.00-0.30 [facility] Comment on above: Performed By: #### C DP #### [facility] [address] [place] [address] [place] [address] Unarmed Security Officer: Loreta Zelaya MD Abs.Neutrophil (Seg) 2.37 k/uL Normal 1.50-8.10 [facility] Comment on above: Performed By: #### C DP #### [facility] [address] [place], [place] [id number] Unarmed Security Officer: Loreta Zelaya MD Basophils/100 WBC (Bld) 1 % Normal 0-2 M [facility] Comment on above: Performed By: #### C DP #### [facility] [address] [place], [place] [phone] Unarmed Security Officer: Loreta Zelaya MD Eosinophils (Bld) [#/Vol] 0.12 10*3/uL Normal 0.00-0.44 [facility] Comment on above: Performed By: #### C DP #### [facility] [address] [place], [facility] Unarmed Security Officer: Loreta Zelaya MD Eosinophils/100 WBC (Bld) 3 % Normal 1-4 [facility] Comment on above: Performed By: #### C DP #### [facility] [address] [place], [place] [address] Unarmed Security Officer: Loreta Zelaya MD Erythrocyte distribution width (RBC) [Ratio] 13.3 % Normal 11.8-14.4 [facility] Comment on above: Performed By: #### C DP #### [address] [place] [address] Unarmed Security Officer: Loreta Zelaya MD Hematocrit (Bld) [Volume fraction] 35.7 % Low 36.3-47.1 [facility] Comment on above: Performed By: #### C DP #### [address] [place], [place] [address] Unarmed Security Officer: Loreta Zelaya MD Hemoglobin (Bld) [Mass/Vol] 11.7 g/dL Low 11.9-15.1 [facility] Comment on above: Performed By: #### C DP #### [address] [place], [place] [address] Unarmed Security Officer: Loreta Zelaya MD Immature granulocytes/100 WBC (Bld) 0 % Normal 0 [facility] Comment on above: Performed By: #### C DP #### [address] [place], [facility] Unarmed Security Officer: Loreta Zelaya MD Lymphocytes (Bld) [#/Vol] 1.57 10*3/uL Normal 1.10-3.70 [facility] Comment on above: Performed By: #### C DP #### [facility] [address] [place], [place] [id number] Unarmed Security Officer: Loreta Zelaya MD Lymphocytes/100 WBC (Bld) 34 % Normal 24-43 [facility] Comment on above: Performed By: #### C DP #### [facility] [address] [place], [facility] Unarmed Security Officer: Loreta Zelaya MD MCH (RBC) [Entitic mass] 33.5 pg Normal 25.2-33.5 [facility] Comment on above: Performed By: #### C DP #### [facility] [address] [place] [address] Unarmed Security Officer: Loreta Zelaya MD MCHC (RBC) [Mass/Vol] 32.8 g/dL Normal 28.4-34.8 [facility] Comment on above: Performed By: #### C DP #### [address] [place] [phone] Unarmed Security Officer: Loreta Zelaya MD MCV (RBC) [Entitic vol] 102.3 fL Normal 82.6-102.9 [facility] Comment on above: Performed By: #### C DP #### [address] [place], [facility] Unarmed Security Officer: Loreta Zelaya MD Monocytes (Bld) [#/Vol] 0.55 10*3/uL Normal 0.10-1.20 [facility] Comment on above: Performed By: #### C DP #### [facility] [address] [place], [facility] Unarmed Security Officer: Loreta Zelaya MD Monocytes/100 WBC (Bld) 12 % Normal 3-12 M [facility] Comment on above: Performed By: #### C DP #### [facility] [address] [place], [facility] Unarmed Security Officer: Loreta Zelaya MD Neutrophil (Seg) 50 % Normal 36-65 [facility] Comment on above: Performed By: #### C DP #### [facility] [address] [place], [place] [id number] Unarmed Security Officer: Loreta Zelaya MD NRBC Automated 0.0 per 100 WBC Normal 0.0 [facility] Comment on above: Performed By: #### C DP #### [facility] [address] [place], [place] 4700283 Unarmed Security Officer: Loreta Zelaya MD Platelet mean volume (Bld) [Entitic vol] 10.4 fL Normal 8.1-13.5 [facility] Comment on above: Performed By: #### C DP #### [facility] [address] [place], [place] [phone] Unarmed Security Officer: Loreta Zelaya MD Platelets (Bld) [#/Vol] 238 10*3/uL Normal 138-453 [facility] Comment on above: Performed By: #### C DP #### [facility] [address] [place], [place] [phone] Unarmed Security Officer: Loreta Zelaya MD RBC (Bld) [#/Vol] 3.49 10*6/uL Low 3.95-5.11 [facility] Comment on above: Performed By: #### C DP #### [facility] [address] [place] [address] Unarmed Security Officer: Loreta Zelaya MD WBC (Bld) [#/Vol] 4.7 10*3/uL Normal 3.5-11.3 [facility] Comment on above: Performed By: #### C DP #### [facility] [address] [place], [place] 6478783 Unarmed Security Officer: Loreta Zelaya MD CMPon 10-16-2024 Albumin [Mass/Vol] 3.3 g/dL Low 3.5 - 5.2 g/dL [facility] Albumin/Globulin [Mass ratio] 1.8 {ratio} 1.0 - 2.5 [facility] ALP [Catalytic activity/Vol] 153 U/L High 35 - 104 U/L [facility] ALT [Catalytic activity/Vol] 49 U/L High 10 - 35 U/L [facility] Anion gap [Moles/Vol] 9 mmol/L 9 - 16 mmol/L [facility] AST [Catalytic activity/Vol] 56 U/L High 10 - 35 U/L [facility] Bilirubin [Mass/Vol] mg/dL 0.00 - 1.20 mg/dL [facility] Calcium [Mass/Vol] 8.4 mg/dL Low 8.6 - 10. 4 mg/dL [facility] Chloride [Moles/Vol] 96 mmol/L Low 98 - 10 7 mmol/L [facility] CO2 [Moles/Vol] 25 mmol/L 20 - 31 mmol/L [facility] Creatinine [Mass/Vol] 0.8 mg/dL 0.50 - 0.90 mg/dL [facility] Est, Glom Filt Rate 85 - PINF [facility] Comment on above: These results are not [...] Critically high 74 - 9 9 mg/dL [facility] Potassium [Moles/Vol] 4.5 mmol/L 3.7 - 5.3 mmol/L [facility] Comment on above: Specimen hemolysis h as exceeded the interference as defined by Kat. Value may be falsely increased. Suggest recollection if clinically indicated. Protein [Mass/Vol] 5.2 g/dL Low 6.6 - 8.7 g/dL [facility] Sodium [Moles/Vol] 130 mmol/L Low 136 - 145 mmol/L [facility] Urea nitrogen [Mass/Vol] 22 mg/dL High 6 - 20 mg/dL [facility] Urea nitrogen/Creatinine [Mass ratio] 28 mg/mg High 9 - 20 [facility] Comp Metabolic Profon 2024 Albumin [Mass/Vol] 3.3 g/dL Low 3.5-5.2 [facility] Comment on above: Performed By: #### I NSU #### [place] [address] [place] [address] Unarmed Security Officer: Gee Royal MD [facility] [address] [place] [address] [place] [address] Unarmed Security Officer: Loreta Zelaya MD #### CPEP #### [address] [address] Unarmed Security Officer: Gee Royal MD Albumin/Glob Ratio 1.8 Normal 1.0-2.5 [facility] Comment on above: Performed By: #### I NSU #### [address] [address] Unarmed Security Officer: Gee Royal MD [facility] [address] [place] [address] [place] [address] Unarmed Security Officer: Loreta Zelaya MD #### CPEP #### [address] [address] Unarmed Security Officer: Gee Royal MD Alkaline Phos 153 U/L High 35-104 [facility] Comment on above: Performed By: #### I NSU #### [facility] [address] [place] [address] Unarmed Security Officer: Gee Royal MD [facility] [address] [place] [address] [place] [address] Unarmed Security Officer: Loreta Zelaya MD #### CPEP #### [address] [address] Unarmed Security Officer: Gee Royal MD ALT [Catalytic activity/Vol] 49 U/L [facility] 10-35 [facility] Comment on above: Performed By: #### I NSU #### [address] [address] Unarmed Security Officer: Gee Royal MD [address] [place], [place] 4588183 Unarmed Security Officer: Loreta Zelaya MD #### CPEP #### [address] [address] Unarmed Security Officer: Gee Royal MD Anion gap [Moles/Vol] 9 mmol/L Normal 9-16 [facility] Comment on above: Performed By: #### I NSU #### [address] [address] Unarmed Security Officer: Gee Royal MD [address] [place] [phone] Unarmed Security Officer: Loreta Zelaya MD #### CPEP #### [address] [address] Unarmed Security Officer: Gee Royal MD AST [Catalytic activity/Vol] 56 U/L [facility] 1035 [facility] Comment on above: Performed By: #### I NSU #### [address] [address] Unarmed Security Officer: Gee Royal MD [address] [place], [place] [phone] Unarmed Security Officer: Loreta Zelaya MD #### CPEP #### [address] [address] Unarmed Security Officer: Gee Royal MD Bilirubin [Mass/Vol] mg/dL Normal 0.00-1.20 [facility] Comment on above: Performed By: #### I NSU #### [address] [address] Unarmed Security Officer: Gee Royal MD [facility] [address] [place] [address] [place]. [place], [place] 3874583 Unarmed Security Officer: Loreta Zelaya MD #### CPEP #### [address] [address] Unarmed Security Officer: Gee Royal MD BUN/CRE Ratio 28 High 9-20 [facility] Comment on above: Performed By: #### I NSU #### [address] [address] Unarmed Security Officer: Gee Royal MD [facility] [address] [place] [address] [place] [place], [place] 8394783 Unarmed Security Officer: Loreta Zelaya MD #### CPEP #### [address] [address] Unarmed Security Officer: Gee Royal MD Calcium [Mass/Vol] 8.4 mg/dL Low 8.6-10.4 [facility] Comment on above: Performed By: #### I NSU #### [address] [address] Unarmed Security Officer: Gee Royal MD [facility] [address] [place] [address] [place] [place], [place] [phone] Unarmed Security Officer: Loreta Zelaya MD #### CPEP #### [address] [address] Unarmed Security Officer: Gee Royal MD Chloride [Moles/Vol] 96 mmol/L Low 98-107 [facility] Comment on above: Performed By: #### I NSU #### [address] [address] Unarmed Security Officer: Gee Royal MD [facility] [address] [place] [address] [place] [place], [place] 6859283 Unarmed Security Officer: Loreta Zelaya MD #### CPEP #### [address] [address] Unarmed Security Officer: Gee Royal MD CO2 [Moles/Vol] 25 mmol/L Normal 20-31 [facility] Comment on above: Performed By: #### I NSU #### [address] [address] Unarmed Security Officer: Gee Royal MD [facility] [address] [place] [address] [place] [address] Unarmed Security Officer: Loreta Zelaya MD #### CPEP #### [address] [address] Unarmed Security Officer: Gee Royal MD Creatinine [Mass/Vol] 0.8 mg/dL Normal 0.50-0.90 [facility] Comment on above: Performed By: #### I NSU #### [address] [address] Unarmed Security Officer: Gee Royal MD [address] [place] [address] Unarmed Security Officer: Loreta Zelaya MD #### CPEP #### [address] [address] Unarmed Security Officer: Gee Royal MD GFR/1.73 sq M.predicted among non-blacks MDRD (S/P/Bld) [Vol rate/Area] 85 mL/min/{1.73_m2} Normal >60 [facility] Comment on above: Result Comment: These [...] secretion. Performed By: #### I NSU #### [address] [address] Unarmed Security Officer: Gee Royal MD [address] [place], [place] 4415483 Unarmed Security Officer: Loreta Zelaya MD #### CPEP #### [facility] [address] [place] [address] Unarmed Security Officer: Gee Royal MD Glucose [Mass/Vol] 567 mg/dL Critically high 74-99 [facility] Comment on above: Performed By: #### I NSU #### [facility] [address] [place] [address] Unarmed Security Officer: Gee Royal MD [address] [place] [address] Unarmed Security Officer: Loreta Zelaya MD #### CPEP #### [place] [address] [place] [address] Unarmed Security Officer: Gee Royal MD Potassium [Moles/Vol] 4.5 mmol/L Normal 3.7-5.3 [facility] Comment on above: Result Comment: Spec imen hemolysis has exceeded the interference as defined by Kat. Value may be falsely increased. Suggest recollection if clinically indicated. Performed By: #### I NSU #### [facility] [address] [place] [address] Unarmed Security Officer: Gee Royal MD [address] [place], [place] 1318383 Unarmed Security Officer: Loreta Zelaya MD #### CPEP #### [facility] [address] [place] [address] Unarmed Security Officer: Gee Royal MD Protein [Mass/Vol] 5.2 g/dL Low 6.6-8.7 [facility] Comment on above: Performed By: #### I NSU #### [facility] [address] [place] [address] Unarmed Security Officer: Gee Royal MD [facility] [address] [place], [place] 1500483 Unarmed Security Officer: Loreta Zelaya MD #### CPEP #### [facility] [address] [place] [address] Unarmed Security Officer: Gee Royal MD Sodium [Moles/Vol] 130 mmol/L Low 136-145 [facility] Comment on above: Performed By: #### I NSU #### [facility] [address] [place] [address] Unarmed Security Officer: Gee Royal MD [facility] [address] [place] [address] Unarmed Security Officer: Loreta Zelaya MD #### CPEP #### [address] [address] Unarmed Security Officer: Gee Royal MD Urea nitrogen [Mass/Vol] 22 mg/dL High 6-20 [facility] Comment on above: Performed By: #### I NSU #### [facility] [address] [place] [address] Unarmed Security Officer: Gee Royal MD [facility] [address] [place] [address] [address] [place], [place] 0124583 Unarmed Security Officer: Loreta Zelaya MD #### CPEP #### [address] [address] Unarmed Security Officer: Gee Royal MD Glucose, Whole Bloodon 10-16 Glucose [Mass/Vol] 564 mg/dL Critically high 74 - 1 00 mg/dL [facility] Interpretation and review of laboratory results Abnormal [facility] Glucose [Mass/Vol] 564 mg/dL Critically high 74-100 M [facility] Magnesiumon 10-16-2024 Magnesium [Mass/Vol] 2 mg/dL 1.6 - 2 .6 mg/dL [facility] Magnesium [Mass/Vol] 2.0 mg/dL Normal 1.6-2.6 [facility] Comment on above: Performed By: #### C DP #### [facility] [address] [place] [address] Unarmed Security Officer: Loreta Zelaya MD No Panel Informationon 10-16 Interpretation and review of laboratory results Abnormal [facility] Troponinon 10-16-2024 Troponin I.cardiac High sensitivity method [Mass/Vol] ng/L 0 - 14 ng/L [facility] Comment on above: High Sensitivity Tro ponin values cannot be compared with other Troponin methodologies. Troponin, High Sens <6 Normal 0-14 [facility] Comment on above: Result Comment: High Sensitivity Troponin values cannot be compared with other Troponin methodologies. Performed By: #### I NSU #### [facility] [address] [place] [address] Unarmed Security Officer: Gee Royal MD [facility] [address] [place] [address] Unarmed Security Officer: Loreta Zelaya MD #### CPEP #### [facility] [address] [place] [address] Unarmed Security Officer: Gee Royal MD BASIC METABOLIC PANLon 10-12 Anion gap [Moles/Vol] 18 mmol/L High 5-15 [facility] Comment on above: Performed By: #### B PHILLIP, 6-3, 3023-7 #### [facility] ([id number]) [address] [place] [address] Calcium [Mass/Vol] 9.0 mg/dL Normal 8.5-10.5 [facility] Comment on above: Performed By: #### B PHILLIP, 6-3, 4-7 #### [facility] ([id number]) [address] [place] [address] Chloride [Moles/Vol] 101 mmol/L Normal 98-109 [facility] Comment on above: Performed By: #### B PHILLIP, 3015-3, 7 #### [facility] ([id number]) [address] [place] [address] CO2 [Moles/Vol] 15 mmol/L Low 22-32 [facility] Comment on above: Performed By: #### Deric FISHER, 3015-3, 3023-7 #### [facility] ([id number]) [address] [facility] [address] [place] [address] Creatinine [Mass/Vol] 0.52 mg/dL Normal 0.40-1.00 [facility] Comment on above: Result Comment: METH OD TRACEABLE TO IDMS STANDARD Performed By: #### Deric FISHER, 3015-3, 7 #### [facility] ([id number]) [address] [facility] [address] [place] [address] eGFR (CKD-EPI) NON-RACE DEPENDENT >90 Normal >59 [facility] Comment on above: Result Comment: Reported eGFR is based on the CKD-EPI 2020 equation that does not use a race coefficient. Performed By: #### Deric FISHER, 3015-3, 3024-01 #### [facility] ([id number]) [address] [place] [address] Glucose [Mass/Vol] 321 mg/dL High 65-99 [facility] Comment on above: Performed By: #### Deric FISHER, 3015-3, 3024-01 #### [facility] ([id number]) [address] [place] [address] Potassium [Moles/Vol] 4.3 mmol/L Normal 3.5-5.0 [facility] Comment on above: Performed By: #### Deric FISHER, 3015-3, 3023-7 #### [facility] ([id number]) [address] [place] [address] Sodium [Moles/Vol] 134 mmol/L Normal 134-146 [facility] Comment on above: Performed By: #### B PHILLIP, 3016-3, 3024-7 #### [facility] ([id number]) [address] [place] [address] Urea nitrogen [Mass/Vol] 15 mg/dL Normal 5-23 [facility] Comment on above: Performed By: #### B PHILLIP, 3016-3, 3023-7 #### [facility] ([id number]) [address] [place] [address] Basic Metabolic Panelon 10-03 Anion gap [Moles/Vol] 18 mmol/L High 5 - 15 mmol/L [facility] Calcium [Mass/Vol] 9.0 mg/dL 8.5 - 10. 5 mg/dL [facility] Chloride [Moles/Vol] 101 mmol/L 98 - 10 9 mmol/L [facility] CO2 [Moles/Vol] 15 mmol/L Low 22 - 32 mmol/L [facility] Creatinine [Mass/Vol] 0.52 mg/dL 0.40 - 1.00 mg/dL [facility] Comment on above: METHOD TRACEABLE TO IDAK STANDARD eGFR (CKD-EPI)non-race dependent - PINF [facility] Comment on above: Reported eGFR is based on the CKD-EPI 2020 equation that does not use a race coefficient. Glucose [Mass/Vol] 321 mg/dL High 65 - 99 mg/dL [facility] Interpretation and review of laboratory results Abnormal [facility] Potassium [Moles/Vol] 4.3 mmol/L 3.5 - 5.0 mmol/L [facility] Sodium [Moles/Vol] 134 mmol/L 134 - 146 mmol/L [facility] Urea nitrogen [Mass/Vol] 15 mg/dL 5 - 23 mg/dL [facility] FREE T4on 10-13-2023 Free T4 [Mass/Vol] 0.56 ng/dL Low 0.61-1.60 [facility] [facility] Comment on above: Performed By: #### B PHILLIP, 3016-3, 3024-7 #### [facility] ([id number]) [address] [facility], [address] [address] Free T4 [Mass/Vol]on 024 Interpretation and review of laboratory results Abnormal [facility] T4, freeon 10-13-2023 Free T4 [Mass/Vol] 0.56 ng/dL Low 0.61 - 1. 60 ng/dL [facility] TSHon 10-13-2023 TSH Qn 9.36 m[IU]/L High [facility] TSH Qnon 10-13-2023 Interpretation and review of laboratory results Abnormal [facility] TSH 9.36 uIU/mL High 0.49-4.67 [facility] Comment on above: Performed By: #### B PHILLIP, 3016-3, 3024-7 #### [facility] ([id number]) [address] [place] [address], [address] [address] C peptide [Mass/Vol]on 09-01 C PEPTIDE 1.10 ng/mL Normal 0.81-3.85 [facility] Comment on above: Result Comment: NOTE Test Performed By: [facility] [address] [place] [address] Digital Communications Manager: Judson Reese III, M.D. [facility] #[id number] MICROALBUMIN - ALBUMIN:CREAT ININE URINE RATIOon 09-01-2023 ALB/CREAT RATIO NOT CALCULATED Normal 0.0-30.0 [facility] Comment on above: Result Comment: Result for Albumin/Creatinine Ratio cannot be reliably calculated because urine albumin and or urine creatinine is below the detection limit of the assay. Performed By: #### M ALBU #### [facility] ([id number]) [address] [place] [address], [address] [place] [address] Albumin DL <= 20 mg/L (U) [Mass/Vol] mg/dL Normal 0.0-1.9 [facility] Comment on above: Performed By: #### M ALBU #### [facility] ([id number]) [address], [address] [place] [address] URINE CREAT 12.23 mg/dL Normal [facility] Comment on above: Performed By: #### M ALBU #### [facility] ([id number]) [address], [address] [place] [address] Microalbumin - Albumin: Crea tinine Urine Ratioon 09-01-2023 Albumin/Creatinine DL <= 1.0 mg/L (U) [Ratio] NOT CALCULATED [facility] Comment on above: Result for Albumin/Creatinine Ratio cannot be reliably calculated because urine albumin and or urine creatinine is below the detection limit of the assay. Creatinine (U) [Mass/Vol] 12.23 mg/dL [facility] COMPREHENSIVE METABOLIC PANE [place] 08-27-2023 Albumin [Mass/Vol] 3.9 g/dL Normal 3.2-5.3 [facility] Comment on above: Performed By: #### C MP, THYR, HA1C, 64435-9 #### [facility] ([id number]) [address], [address] [place] [address] ALP [Catalytic activity/Vol] 73 U/L Normal 39-130 [facility] Comment on above: Performed By: #### C MP, THYR, HA1C, 51354-7 #### [facility] ([id number]) [address], [address] [place] [address] ALT [Catalytic activity/Vol] 7 U/L Normal 0-31 [facility] Comment on above: Performed By: #### C MP, THYR, HA1C, 02890-6 #### [facility] ([id number]) [address], [address] [place] [address] Anion gap [Moles/Vol] 9 mmol/L Normal 5-15 [facility] Comment on above: Performed By: #### C MP, THYR, HA1C, 15817-1 #### [facility] ([id number]) [address], [address] [place] [address] AST [Catalytic activity/Vol] 9 U/L Normal 0-41 [facility] Comment on above: Performed By: #### C MP, THYR, HA1C, 42581-9 #### [facility] ([id number]) [address], [address] [place] [address] Bilirubin [Mass/Vol] 0.5 mg/dL Normal 0.3-1.2 [facility] Comment on above: Performed By: #### C PHILLIP, THYR, HA1C, 62105-3 #### [facility] ([id number]) [address], [address] [place] [address] Calcium [Mass/Vol] 8.7 mg/dL Normal 8.5-10.5 [facility] Comment on above: Performed By: #### C MP, THYR, HA1C, 45556-5 #### [facility] ([id number]) [address], [address] [place] [address] Chloride [Moles/Vol] 99 mmol/L Normal 98-109 [facility] Comment on above: Performed By: #### C PHILLIP, THYR, HA1C, 11657-7 #### [facility] ([id number]) [address], [address] [place] [address] CO2 [Moles/Vol] 24 mmol/L Normal 22-32 [facility] Comment on above: Performed By: #### C MP, THYR, HA1C, 47157-0 #### [facility] ([id number]) [address], [address] [place] [address] Creatinine [Mass/Vol] 0.53 mg/dL Normal 0.40-1.00 [facility] Comment on above: Result Comment: METH OD TRACEABLE TO IDMS STANDARD Performed By: #### C MP, THYR, HA1C, 29631-9 #### [facility] ([id number]) [address], [address] [place] [address] eGFR (CKD-EPI) NON-RACE DEPENDENT >90 Normal >59 [facility] Comment on above: Result Comment: Reported eGFR is based on the CKD-EPI 2020 equation that does not use a race coefficient. Performed By: #### C PHILLIP THYRodney, HAJoe, 07474-0 #### [facility] ([id number]) [address], [address] [place] [address] Glucose [Mass/Vol] 474 mg/dL Critically high 65-99 [facility] Comment on above: Performed By: #### C FRANK FISHER, HAJoe, 17288-8 #### [facility] ([id number]) [address], [address] [place] [address] Potassium [Moles/Vol] 3.9 mmol/L Normal 3.5-5.0 [facility] Comment on above: Performed By: #### C FRANK FISHER, HA1C, 89705-2 #### [facility] ([id number]) [address], [address] [place] [address] Protein [Mass/Vol] 6.5 g/dL Normal 6.0-8.0 [facility] Comment on above: Performed By: #### C PHILLIP THYR, HA1C, 06351-5 #### [facility] ([id number]) [address], [address] [place] [address] Sodium [Moles/Vol] 132 mmol/L Low 134-146 [facility] Comment on above: Performed By: #### C PHILLIP THYR, HA1C, 69547-0 #### [facility] ([id number]) [address], [address] [place] [address] Urea nitrogen [Mass/Vol] 7 mg/dL Normal 5-23 [facility] Comment on above: Performed By: #### C MP, THYR, HA1C, 69428-1 #### [facility] ([id number]) [address] [facility] [place] [address] Comprehensive metabolic pane [facility] 08-27-2023 Albumin [Mass/Vol] 3.9 g/dL 3.2 - 5.3 g/dL [facility] ALP [Catalytic activity/Vol] 73 U/L 39 - 130 U/L [facility] ALT No additional P-5'-P [Catalytic activity/Vol] 7 U/L 0 - 31 U/L [facility] Anion gap [Moles/Vol] 9 mmol/L 5 - 15 mmol/L [facility] AST [Catalytic activity/Vol] 9 U/L 0 - 41 U/L [facility] Bilirubin [Mass/Vol] 0.5 mg/dL 0.3 - 1 .2 mg/dL [facility] Calcium [Mass/Vol] 8.7 mg/dL 8.5 - 10. 5 mg/dL [facility] Chloride [Moles/Vol] 99 mmol/L 98 - 10 9 mmol/L [facility] CO2 [Moles/Vol] 24 mmol/L 22 - 32 mmol/L [facility] Creatinine [Mass/Vol] 0.53 mg/dL 0.40 - 1.00 mg/dL [facility] Comment on above: METHOD TRACEABLE TO IDAK STANDARD eGFR (CKD-EPI)non-race dependent - PINF [facility] Comment on above: Reported eGFR is based on the CKD-EPI 2020 equation that does not use a race coefficient. Glucose [Mass/Vol] 474 mg/dL Critically high 65 - 9 9 mg/dL [facility] Interpretation and review of laboratory results Abnormal [facility] Potassium [Moles/Vol] 3.9 mmol/L 3.5 - 5.0 mmol/L [facility] Protein [Mass/Vol] 6.5 g/dL 6.0 - 8.0 g/dL [facility] Sodium [Moles/Vol] 132 mmol/L Low 134 - 146 mmol/L [facility] Urea nitrogen [Mass/Vol] 7 mg/dL 5 - 23 mg/dL [facility] HGB A1C (GLYCO-HGB)on 2023 Glucose [Mass/Vol] 349 mg/dL Normal [facility] Comment on above: Performed By: #### [place], [address]-4 #### [facility] ([id number]) [address], [address] [place] [address] HbA1c (Bld) [Mass fraction] 13.8 % High 4.4-5.6 [facility] Comment on above: Result Comment: NOTE ADA Guidelines Result HgbA1c Normal : less than 5.7 % Prediabetes : 5.7 % to 6.4 % Diabetes : > 6.4 % Use with caution in patients with abnormal hemoglobin variants as the half-life of red blood cells and in vivo glycation rates are affected. Performed By: #### C FRANK FISHER, PHILLIP, 81074-3 #### [facility] ([id number]) [address] [facility] [place] [address] Hemoglobin A1con 08-27-2023 Average glucose Estimated from glycated hemoglobin (Bld) [Mass/Vol] 349 mg/dL [facility] HbA1c (Bld) [Mass fraction] 13.8 % High 4.4 - 5.6 % [facility] Comment on above: NOTE ADA Guidelines Result HgbA1c Normal : less than 5.7 % Prediabetes : 5.7 % to 6.4 % Diabetes : > 6.4 % Use with caution in patients with abnormal hemoglobin variants as the half-life of red blood cells and in vivo glycation rates are affected. Interpretation and review of laboratory results Abnormal [facility] Lipid 1996 panelon Cholesterol [Mass/Vol] 104 mg/dL Low 150 - 200 mg/dL [facility] Cholesterol in HDL [Mass/Vol] 43 mg/dL 39 - PINF mg/dL [facility] Comment on above: HDL <40 mg/dL - High Risk HDL > or = 40mg/dL- Desirable HDL >60 mg/dL - Negative Risk Cholesterol in LDL [Mass/Vol] 28 mg/dL NINF - 130 mg/dL [facility] Comment on above: LDL <100 mg/dL - Desirable LDL >160 mg/dL - High Risk Cholesterol in VLDL [Mass/Vol] 33 mg/dL High 0 - 30 mg/dL [facility] Cholesterol.total/Amy sterol in HDL [Mass ratio] 2.4 {ratio} 1.0 - 5.0 [facility] Triglyceride [Mass/Vol] 165 mg/dL High 27 - 150 mg/dL [facility] Cholesterol [Mass/Vol] 104 mg/dL Low 150-200 [facility] Comment on above: Performed By: #### FRANK Daniels MP, GENTRY, 52811-9 #### [facility] ([id number]) [address], [address] [place] [address] Cholesterol in HDL [Mass/Vol] 43 mg/dL Normal >39 [facility] Comment on above: Result Comment: HDL <40 mg/dL - High Risk HDL > or = 40mg/dL- Desirable HDL >60 mg/dL - Negative Risk Performed By: #### Frances FISHER, FRANK, PHILLIP, 95193-9 #### [facility] ([id number]) [address], [address] [place] [address] Cholesterol in LDL [Mass/Vol] 28 mg/dL Normal <130 [facility] Comment on above: Result Comment: LDL <100 mg/dL - Desirable LDL >160 mg/dL - High Risk Performed By: #### C MP, THYR, HA1C, 08288-0 #### [facility] ([id number]) [address], [address] [address] Cholesterol in VLDL [Mass/Vol] 33 mg/dL High 0-30 [facility] Comment on above: Performed By: #### C MP, THYR, HA1C, 40556-1 #### [facility] ([id number]) [address] [address] [place] [address] CHOLESTEROL:HDL 2.4 Normal 1.0-5.0 [facility] Comment on above: Performed By: #### C MP, THYR, HA1C, 61855-8 #### [facility] ([id number]) [address], [address] [place] [address] Triglyceride [Mass/Vol] 165 mg/dL High 27-150 P [facility] Comment on above: Performed By: #### C MP, THYR, HA1C, 13631-8 #### [facility] ([id number]) [address], [address] [place] [address] No Panel Informationon 08-27 Interpretation and review of laboratory results Abnormal [facility] THYROID PROFILEon 08-27-2023 Free T4 [Mass/Vol] 0.50 ng/dL Low 0.61-1.60 [facility] Comment on above: Performed By: #### C MP, THYR, HA1C, 23176-8 #### [facility] ([id number]) [address] [address] [place] [address] TSH 8.94 uIU/mL High 0.49-4.67 [facility] Comment on above: Performed By: #### C MP, THYR, HA1C, 25151-2 #### [facility] ([id number]) [address] [facility], [address] [place] [address] Thyroid profile includes TSH FT4on 08-27-2023 Free T4 [Mass/Vol] 0.50 ng/dL Low 0.61 - 1. 60 ng/dL [facility] TSH Qn 8.94 m[IU]/L High [facility] CBC AUTO DIFFon 10-19-2022 BASO # 0.1 103/ul Normal 0.0-0.1 [facility] Comment on above: Performed By: #### C BC #### [facility] [address] [place] [address] Dr. Alejandra Trotter Basophils/100 WBC (Bld) 0.9 % Normal 0.2-2.0 [facility] Comment on above: Performed By: #### C BC #### [facility] [address] [place] [address] Dr. Alejandra Trotter EO # 0.2 103/ul Normal 0.0-0.7 [facility] Comment on above: Performed By: #### C BC #### [facility] [address] [place] [address] Dr. Alejandra Trotter Eosinophils/100 WBC (Bld) 3.4 % Normal 0.9-7.0 [facility] Comment on above: Performed By: #### C BC #### [facility] [address] [place] [address] Dr. Alejandra Trotter Erythrocyte distribution width (RBC) [Ratio] 12.5 % Normal 11.0-15.0 [facility] Comment on above: Performed By: #### C BC #### [facility] [address] [place] [address] Dr. Alejandra Trotter Hematocrit (Bld) [Volume fraction] 45.3 % Normal 36.0-48.0 [facility] Comment on above: Performed By: #### C BC #### [facility] [address] [place] [address] Dr. Alejandra Trotter Hemoglobin (Bld) [Mass/Vol] 15.0 g/dL Normal 12.0-16.0 [facility] Comment on above: Performed By: #### C BC #### [facility] [address] [place] [address] Dr. Alejandra Trotter IG # 0.02 10e3/ul Normal 0.00-0.03 [facility] Comment on above: Performed By: #### C BC #### [facility] [address] [place] [address] Dr. Aleajndra Trotter IG % 0.3 % Normal 0.0-0.5 [facility] Comment on above: Performed By: #### C BC #### [facility] [address] [place] [address] Dr. Alejandra Trotter LYMPH # 2.4 103/ul Normal 1.2-3.8 [facility] Comment on above: Performed By: #### C BC #### [facility] [address] [place] [address] Dr. Alejandra Trotter Lymphocytes/100 WBC (Bld) 41.2 % Normal 20.5-60.0 [facility] Comment on above: Performed By: #### C BC #### [facility] [address] [place] [address] Dr. Alejandra Trotter MANUAL DIFF REQ NO Normal [facility] Comment on above: Performed By: #### C BC #### [facility] [address] [place] [address] Dr. Alejandra Trotter MCH (RBC) [Entitic mass] 29.1 pg Normal 26.7-34.0 [facility] Comment on above: Performed By: #### C BC #### [facility] [address] [place] [address] Dr. Alejandra Trotter MCHC (RBC) [Mass/Vol] 33.1 g/dL Normal 29.9-35.2 [facility] Comment on above: Performed By: #### C BC #### [facility] [address] [place] [address] Dr. Alejandra Trotter MCV (RBC) [Entitic vol] 87.8 fL Normal 81.0-99.0 [facility] Comment on above: Performed By: #### C BC #### [facility] [address] [place] [address] Dr. Alejandra Trotter MONO # 0.4 103/ul Normal 0.3-0.8 [facility] Comment on above: Performed By: #### C BC #### [facility] [address] [place] [address] Dr. Alejandra Trotter Monocytes/100 WBC (Bld) 6.7 % Normal 1.7-12.0 [facility] Comment on above: Performed By: #### C BC #### [facility] [address] [place] [address] Dr. Alejandra Trotter NEUT # 2.8 103/ul Normal 1.4-6.5 [facility] Comment on above: Performed By: #### C BC #### [facility] [address] [place] [address] Dr. Alejandra Trotter Neutrophils/100 WBC (Bld) 47.5 % Normal 43.0-75.0 [facility] Comment on above: Performed By: #### C BC #### [facility] [address] [place] [address] Dr. Alejandra Trotter Platelet mean volume (Bld) [Entitic vol] 10.7 fL Normal 9.5-13.5 [facility] Comment on above: Performed By: #### C BC #### [facility] [address] [place] [address] Dr. Alejandra Trotter PLT 282 103/ul Normal 150-450 [facility] Comment on above: Performed By: #### C BC #### [facility] [address] [place] [address] Dr. Alejandra Trotter RBC 5.16 106/ul Normal 4.20-5.40 [facility] Comment on above: Performed By: #### C BC #### [facility] [address] [place] [address] Dr. Alejandra Trotter WBC 5.8 103/ul Normal 4.0-11.0 [facility] Comment on above: Performed By: #### C BC #### [facility] [address] [place] [address] Dr. Alejandra Trotter D-DIMERon 10-19-2022 D-DIMER 0.58 mg/L FEU Normal <=0.59 [facility] Comment on above: Performed By: #### D DIM #### [facility] [address] [place] [address] Dr. Alejandra Trotter D-DIMER COMMENTS SEE BELOW Normal [facility] Comment on above: Result Comment: Incr [...] hospitalization. Performed By: #### D DIM #### [facility] [address] [place] [address] Dr. Alejandra Trotter ER URINE PROFILEon 3 Bilirubin Ql (U) Negative Normal NEGATIVE [facility] Comment on above: Performed By: #### E RUR #### [facility] [address] [place] [address] Dr. Alejandra Trotter Clarity (U) CLEAR Normal CLEAR [facility] Comment on above: Performed By: #### E RUR #### [facility] [address] [place] [address] Dr. Alejandra Trotter Color (U) LT. YELLOW Normal YELLOW [facility] Comment on above: Performed By: #### E RUR #### [facility] [address] [place] [address] Dr. Alejandra MARK A micrscopic examination will be performed if indicated. Normal [facility] Comment on above: Performed By: #### E RUR #### [facility] [address] [place] [address] Dr. Alejandra Trotter Glucose Ql (U) >1000 Abnormal NEGATIVE [facility] Comment on above: Performed By: #### E RUR #### [facility] [address] [place] [address] Dr. Alejandra Trotter Hemoglobin Ql (U) TRACE-LYSED Abnormal NEGATIVE [facility] Comment on above: Performed By: #### E RUR #### [facility] [address] [place] [address] Dr. Alejandra Trotter Ketones Ql (U) >=80 Abnormal NEGATIVE [facility] Comment on above: Performed By: #### E RUR #### [facility] [address] [place] [address] Dr. Alejandra Trotter LEUKOCYTES Negative Normal NEGATIVE [facility] Comment on above: Performed By: #### E RUR #### [facility] [address] [place] [address] Dr. Alejandra Trotter Nitrite Ql (U) Negative Normal NEGATIVE [facility] Comment on above: Performed By: #### E RUR #### [facility] [address] [place] [address] Dr. Alejandra Trotter pH (U) 5.0 [pH] Normal 5-9 [facility] Comment on above: Performed By: #### E RUR #### [facility] [address] [place] [address] Dr. Alejandra Trotter SPEC GRAVITY 1.020 Normal 1.005-<=1.02 5 [facility] Comment on above: Performed By: #### E RUR #### [facility] [address] [place] [address] Dr. Alejandra Trotter UA PROTEIN Negative Normal NEGATIVE/ TRACE [facility] Comment on above: Performed By: #### E RUR #### [facility] [address] [place] [address] Dr. Alejandra Trotter UR MICRO IND NOT INDICATED Normal [facility] Comment on above: Performed By: #### E RUR #### [facility] [address] [place] [address] Dr. Alejandra Trotter Urobilinogen Qn (U) 0.2 {Rui'U}/dL Normal 0.2 - 1. 0 [facility] Comment on above: Performed By: #### E RUR #### [facility] [address] [place] [address] Dr. Alejandra Tortter LACTATE/LACTIC ACIDon 2022 Lactate [Moles/Vol] 1.1 mmol/L Normal 0.4-2.0 [facility] Comment on above: Performed By: #### L ACT #### [facility] [address] [place] [address] Dr. Alejandra Trotter POINT OF CARE GLUCOSEon 10-03 Glucose [Mass/Vol] 322 mg/dL Critically high 74-106 [facility] Comment on above: Performed By: #### P OCGLUC #### [facility] [address] [place] [address] Dr. Alejandra Trotter PROF 14(COMP METB)on 023 Albumin [Mass/Vol] 3.6 g/dL Normal 3.4-5.0 [facility] Comment on above: Performed By: #### H STROPN, CMP #### [facility] [address] [place] [address] Dr. Alejandra Trotter Albumin/Globulin [Mass ratio] 0.9 {ratio} Normal [facility] Comment on above: Performed By: #### H STROPN, CMP #### [facility] [address] [place] [address] Dr. Alejandra Trotter ALP [Catalytic activity/Vol] 107 U/L Normal 46-116 [facility] Comment on above: Performed By: #### H STROPN, CMP #### [facility] [address] [place] [address] Dr. Alejandra Trotter ALT [Catalytic activity/Vol] 14 U/L Normal 14-59 [facility] Comment on above: Performed By: #### H STROPN, CMP #### [facility] [address] [place] [address] Dr. Alejandra Trotter Anion gap [Moles/Vol] 20.6 mmol/L Normal [facility] Comment on above: Performed By: #### H STROPN, CMP #### [facility] [address] [address] [address] Alejandra Trotter AST [Catalytic activity/Vol] 11 U/L Critically low 15-37 [facility] Comment on above: Performed By: #### H STROPN, CMP #### [facility] [address] [id number] Dr. Alejandra Trotter Bilirubin [Mass/Vol] 0.4 mg/dL Normal 0.2-1.0 [facility] Comment on above: Performed By: #### H STROPN, CMP #### [facility] [address] [address] [address] Alejandra Trotter Calcium [Mass/Vol] 9.0 mg/dL Normal 8.5-10.1 [facility] Comment on above: Performed By: #### H STROPN, CMP #### [facility] [address] [address] [address] Alejandra Trotter Chloride [Moles/Vol] 97 mmol/L Critically low 98-107 [facility] Comment on above: Performed By: #### H STROPN, CMP #### [facility] [address] [address] [address] Alejandra Trotter CO2 [Moles/Vol] 19.7 mmol/L Critically low 21.0-32.0 [facility] Comment on above: Performed By: #### H STROPN, CMP #### [facility] [address] [address] [address] Alejandra Trotter Creatinine [Mass/Vol] 0.83 mg/dL Normal 0.55-1.02 [facility] Comment on above: Performed By: #### H STROPN, CMP #### [facility] [address] [address] [address] Alejandra Trotter EGFR-AF LEBANESE >60 Normal >=60 [facility] Comment on above: Performed By: #### H STROPN, CMP #### [facility] [address] [address] [address] Alejandra Trotter EGFR-NON AF LEBANESE >60 Normal >=60 [facility] Comment on above: Performed By: #### H STROPN, CMP #### [facility] [address] [address] [address] Alejandra Trotter Globulin (S) [Mass/Vol] 4.2 g/dL Normal [facility] Comment on above: Performed By: #### H STROPN, CMP #### [facility] [address] [address] [address] Alejandra Trotter Glucose [Mass/Vol] 389 mg/dL Critically high 74-106 [facility] Comment on above: Performed By: #### H STROPN, CMP #### [facility] [address] [address] [address] Alejandra Trotter Potassium [Moles/Vol] 4.3 mmol/L Normal 3.5-5.1 [facility] Comment on above: Performed By: #### H STROPN, CMP #### [facility] [address] [address] [address] Alejandra Trotter Protein [Mass/Vol] 7.8 g/dL Normal 6.4-8.2 [facility] Comment on above: Performed By: #### H STROPN, CMP #### [facility] [address] [address] [address] Alejandra Trotter Sodium [Moles/Vol] 133 mmol/L Critically low 136-145 [facility] Comment on above: Performed By: #### H STROPN, CMP #### [facility] [address] [address] [address] Alejandra Trotter Urea nitrogen [Mass/Vol] 5.0 mg/dL Critically low 7.0-18.0 [facility] Comment on above: Performed By: #### H STROPN, CMP #### [facility] [address] [address] [address] Alejandra Trotter Urea nitrogen/Creatinine [Mass ratio] 6.0 mg/mg Normal [facility] Comment on above: Performed By: #### H STROPN, CMP #### [facility] [address] [address] [address] Alejandra Trotter SYMPTOMATIC COVID-19 ANTIGEN on 10-19-2022 EUA Statement SEE BELOW Normal [facility] Comment on above: Result Comment: This test [...] sooner. Performed By: #### C VDAGS #### [facility] [address] [place] [address] Dr. Alejandra Trotter SARS-CoV-2 (COVID-19) RNA NEENA+probe Ql (Unsp spec) Negative Normal NEGATIVE [facility] Comment on above: Performed By: #### C VDAGS #### [facility] [address] [place], [place] [address] Dr. Alejandra Trotter TROPONIN, HIGH SENSITIVITYon 10-19-2022 HSTROP 4.6 pg/mL Normal 4.0-51.3 [facility] Comment on above: Result Comment: CUT- OFF POINTS HAVE BEEN ESTABLISHED BASED ON THE FOURTH UNIVERSAL DEFINITIONS OF MYOCARDIAL INFARCTION. THE UPPER REFERENCE LIMIT (URL) OF TROPONIN, DEFINED THE 99TH PERCENTILE OF cTnI DISTRIBUTION IN A REFERENCE POPULATION, HAS BEEN CONFIRMED THE DECISION THRESHOLD FOR [place] DIAGNOSIS. Performed By: #### H STROPN, CMP #### [facility] [address] [address] [address] Alejandra Trotter XR CHEST 2 Von [...] LORETA MACKENZIE Date: 2022-10-19 21:48 Normal [facility] COVID Quick Testingon 2020 Result Negative [facility] Other Vital Signs Date Time Vital Sign Value Performing Clinician Facility 01-30-2025 13:32-0400 Body height 172.7 cm Carmen Keen MD Work Phone: [facility] 01-30-2025 13:32-0400 Body mass index (BMI) [Ratio] 26.33 kg/m2 Carmen Keen MD Work Phone: [facility] 01-30-2025 13:32-0400 Body weight 78.56 kg Carmen Keen MD Work Phone: [facility] 01-30-2025 13:32-0400 Diastolic blood pressure 54 mm[Hg] Carmen Keen MD Work Phone: [facility] 01-30-2025 13:32-0400 Systolic blood pressure 98 mm[Hg] Carmen Keen MD Work Phone: [facility] 01-11-2025 13:18-0400 Body height 175.3 cm Stanton Raedy DO Work Phone: [facility] 01-11-2025 13:18-0400 Body mass index (BMI) [Ratio] 24.32 kg/m2 Stanton Raedy DO Work Phone: [facility] 01-11-2025 13:18-0400 Body weight 74.71 kg Stanton [facility]edy DO [facility] 01-11-2025 13:18-0400 Diastolic blood pressure 80 mm[Hg] Stanton [facility]edy DO [facility] 01-11-2025 13:18-0400 Heart rate 89 /min Stanton Raedy DO Work Phone: [facility] 01-11-2025 13:18-0400 SaO2% (BldA) [Mass fraction] 97 % Stanton Johnsony DO Work Phone: [facility] 01-11-2025 13:18-0400 Systolic blood pressure 120 mm[Hg] Stanton Marieeedy DO Work Phone: [facility] 12-21-2024 06:47-0400 Body temperature 97.7 [degF] Rikki Oscar MD Work Phone: [facility] 12-21-2024 06:47-0400 Diastolic blood pressure 66 mm[Hg] Rikki Oscar MD Work Phone: [facility] 12-21-2024 06:47-0400 Heart rate 77 /min Rikki Oscar MD Work Phone: [facility] 12-21-2024 06:47-0400 Respiratory rate 16 /min Rikki Oscar MD Work Phone: [facility] 12-21-2024 06:47-0400 SaO2% (BldA) [Mass fraction] 96 % Rikki Oscar MD Work Phone: [facility] 12-21-2024 06:47-0400 Systolic blood pressure 118 mm[Hg] Rikki Oscar MD Work Phone: [facility] 12-21-2024 06:23-0400 Body height 172.7 cm Rikki Oscar MD Work Phone: [facility] 12-21-2024 05:45-0400 Body mass index (BMI) [Ratio] 23.72 kg/m2 Rikki Oscar MD Work Phone: [facility] 12-21-2024 05:45-0400 Body weight 70.76 kg Rikki Oscar MD Work Phone: [facility] 12-20-2024 19:51-0400 Body temperature 37 Rikki Oscar MD Work Phone: [facility] 12-06-2024 12:54-0400 Body height 172.7 cm [facility] [employer] [facility] 12-06-2024 12:54-0400 Body mass index (BMI) [Ratio] 23.05 kg/m2 [facility] [employer] [facility] 12-06-2024 12:54-0400 Body weight 68.77 kg [facility] [employer] Room Dental Technician [facility] 12-06-2024 12:54-0400 Diastolic blood pressure 84 mm[Hg] [facility] Metal Room Dental Technician [facility] 12-06-2024 12:54-0400 Systolic blood pressure 120 mm[Hg] [facility] 10-18-2024 09:23-0400 Diastolic blood pressure 61 mm[Hg] Flory Toure DO Work Phone: [facility] 10-18-2024 09:23-0400 Systolic blood pressure 94 mm[Hg] Flory Toure DO Work Phone: [facility] 10-18-2024 07:48-0400 Body temperature 98.6 [degF] Flory Toure DO Work Phone: [facility] 10-18-2024 07:48-0400 Heart rate 75 /min Flory Toure DO Work Phone: [facility] 10-18-2024 07:48-0400 Respiratory rate 20 /min Flory Toure DO Work Phone: [facility] 10-18-2024 07:48-0400 SaO2% (BldA) [Mass fraction] 97 % Flory Toure DO Work Phone: [facility] 10-18-2024 04:30-0400 Body mass index (BMI) [Ratio] 20.98 kg/m2 Flory Toure DO Work Phone: [facility] 10-18-2024 04:30-0400 Body weight 62.6 kg Flory Toure DO Work Phone: [facility] 10-16-2024 22:51-0400 Body height 172.7 cm Flory Toure DO Work Phone: [facility] 10-13-2023 09:29-0400 Body height 170.2 cm Gomez Green APRN-SUBSTATION MECHANIC [facility] 10-13-2023 09:29-0400 Body mass index (BMI) [Ratio] 21.68 kg/m2 Gomez Green VOLLEYBALL COMMENTATOR-SUBSTATION MECHANIC Work [facility] 10-13-2023 09:29-0400 Body temperature 98.2 [degF] Gomez Green APRN-SUBSTATION MECHANIC Work Phone: [facility] [employer] 10-13-2023 09:29-0400 Body weight 62.78 kg Gomez Green APRN-SUBSTATION MECHANIC [facility] 10-13-2023 09:29-0400 Diastolic blood pressure 60 mm[Hg] Gomez Green APRN-SUBSTATION MECHANIC [facility] 10-13-2023 09:29-0400 Heart rate 110 /min Gomez Green APRN-SUBSTATION MECHANIC [facility] 10-13-2023 09:29-0400 SaO2% (BldA) [Mass fraction] 97 % Gomez Green APRN-SUBSTATION MECHANIC Work [facility] 10-13-2023 09:29-0400 Systolic blood pressure 100 mm[Hg] Gomez Green APRN-SUBSTATION MECHANIC [facility] 09-01-2023 08:22-0500 Body height 172.7 cm Gomez Green APRN-SUBSTATION MECHANIC [facility] 09-01-2023 08:22-0500 Body mass index (BMI) [Ratio] 23.11 kg/m2 Gomez Green VOLLEYBALL COMMENTATOR-SUBSTATION MECHANIC Work Phone: [facility] 09-01-2023 08:22-0500 Body temperature 97.5 [degF] Gomez Green APRN-LYNNETTE Work Phone: [facility] 09-01-2023 08:22-0500 Body weight 68.95 kg Gomez Green VOLLEYBALL COMMENTATOR-SUBSTATION MECHANIC Work Phone: [facility] 09-01-2023 08:22-0500 Diastolic blood pressure 70 mm[Hg] Gomez Green VOLLEYBALL COMMENTATOR-SUBSTATION MECHANIC Work Phone: [facility] 09-01-2023 08:22-0500 Heart rate 98 /min Gomez Green APRN-SUBSTATION MECHANIC Work Phone: [facility] 09-01-2023 08:22-0500 SaO2% (BldA) [Mass fraction] 98 % Gomez Green APRN-SUBSTATION MECHANIC Work Phone: [facility] 09-01-2023 08:22-0500 Systolic blood pressure 110 mm[Hg] Gomez Green APRN-SUBSTATION MECHANIC Work Phone: [facility] 08-31-2023 13:04-0500 Body height 172.7 cm Teri Perez DO Work Phone: [facility] 08-31-2023 13:04-0500 Body mass index (BMI) [Ratio] 23.17 kg/m2 Teri Perez DO Work Phone: [facility] 08-31-2023 13:04-0500 Body weight 69.13 kg Teri Perez DO [facility] 08-31-2023 13:04-0500 Diastolic blood pressure 62 mm[Hg] Teri Perez DO [facility] 08-31-2023 13:04-0500 Systolic blood pressure 104 mm[Hg] Teri Perez DO Work Phone: [facility] 08-27-2023 10:52-0500 Body height 172.7 cm Gomez BNAGURA Work Phone: [email or web address] 08-27-2023 10:52-0500 Body mass index (BMI) [Ratio] 23.16 kg/m2 Gomez Green APRN-LYNNETTE Work [facility] 08-27-2023 10:52-0500 Body temperature 98.6 [degF] Gomez Green APRN-LYNNETTE Work Phone: [facility] 08-27-2023 10:52-0500 Body weight 69.08 kg Gomez Green APRN-LYNNETTE [facility] 08-27-2023 10:52-0500 Diastolic blood pressure 60 mm[Hg] Gomez Green APRN-LYNNETTE [facility] 08-27-2023 10:52-0500 Heart rate 100 /min Gomez BANGURA Work Phone: [facility] 08-27-2023 10:52-0500 SaO2% (BldA) [Mass fraction] 97 % Gomez BANGURA Work [facility] 08-27-2023 10:52-0500 Systolic blood pressure 100 mm[Hg] Gomez Green APRN-LYNNETTE [facility] 07-25-2021 11:32-0500 Body height 175.3 cm Stanton Kohler DO Work Phone: [employer] 07-25-2021 11:32-0500 Body mass index (BMI) [Ratio] 36.39 kg/m2 Stanton Johnsony Work Phone: [employer] 07-25-2021 11:32-0500 Body temperature 98.1 [degF] Stanton Johnsony Work Phone: [employer] 07-25-2021 11:32-0500 Body weight 111.77 kg Stanton Kohler DO Work Phone: [employer] 07-25-2021 11:32-0500 Diastolic blood pressure 82 mm[Hg] Stanton Rajaely DO Work Phone: [employer] 07-25-2021 11:32-0500 Heart rate 82 /min Stanton Johnsony DO Work Phone: [employer] 07-25-2021 11:32-0500 Respiratory rate 16 /min Stanton Johnsony DO Work Phone: [employer] 07-25-2021 11:32-0500 SaO2% (BldA) [Mass fraction] 100 % Stanton Johnsony DO Work Phone: [employer] 07-25-2021 11:32-0500 Systolic blood pressure 126 mm[Hg] Stanton Johnsony DO Work Phone: [employer] 07-10-2021 12:30-0500 Body height 175.3 cm Loreta Juares Jr., DO Work Phone: [employer] 07-10-2021 12:30-0500 Body mass index (BMI) [Ratio] 36.48 kg/m2 Loreta Juares Jr., DO Work Phone: [employer] 07-10-2021 12:30-0500 Body temperature 98.01 [degF] Loreta Juares Jr., DO Work Phone: [employer] 07-10-2021 12:30-0500 Body weight 112.04 kg Loreta Juares Jr., DO Work Phone: [employer] 07-10-2021 12:30-0500 Diastolic blood pressure 74 mm[Hg] Loreta Juares Jr., DO Work Phone: [facility] 07-10-2021 12:30-0500 Systolic blood pressure 122 mm[Hg] Loreta Juares Jr., DO Work Phone: [facility] 05-02-2021 17:15-0400 Body height 171.45 cm Lenora Whitehead Other [facility] Other 05-02-2021 17:15-0400 Body mass index (BMI) [Ratio] 33.94 kg/m2 Lenora Whitehead Other [facility] Other 05-02-2021 17:15-0400 Body temperature 97.5 [degF] Lenora Whitehead Other [facility] Other 05-02-2021 17:15-0400 Body weight 99.79 kg Lenora Whitehead Other [facility] Other 05-02-2021 17:15-0400 Respiratory rate 18 /min Lenora Whitehead Other [facility] Other 05-02-2021 17:15-0400 SaO2% (BldA) [Mass fraction] 98 % Lenora Whitehead Other [facility] Other Encounters Encounter Date Encounter Type Care Provider Facility Start: 02-27-2025 End: 02-27-2025 Orders Only Laureen Patel [facility] Comment on above: Abnormal TSH (Primar y Dx) Start: 02-12-2025 End: 02-12-2025 Orders Only Laureen Patel MA [facility] Comment on above: Elevated TSH (Primar y Dx); Low serum prolactin Start: 02-08-2025 End: 02-08-2025 ambulatory [facility]YPIA [facility]OLDBERG [facility] Start: 02-08-2025 End: 02-08-2025 Subsequent hospital visit by physician [facility] Schedule [facility] Comment on above: 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; Weakness of both legs Start: 01-30-2025 End: 01-30-2025 Office outpatient visit 15 minutes Carmen Keen MD Work Phone: [facility] Comment on above: Postmenopausal syndr ome (Primary Dx) Start: 01-30-2025 End: 01-30-2025 ambulatory CARMEN KEEN [facility] Start: 01-12-2025 End: 01-12-2025 Orders Only Jessica Pete VOLLEYBALL COMMENTATOR-SUBSTATION MECHANIC Work Phone: [facility] Comment on above: Kiesha glabrata inf ection (Primary Dx) Start: 01-11-2025 End: 01-11-2025 Office outpatient new 30 minutes Stanton F eh DO Work Phone: [facility] Comment on above: Weakness (Primary Dx ) Start: 01-11-2025 amb[facility] Start: 01-10-2025 End: 01-10-2025 Emergency department patient visit MICHAEL FUNEZ [facility] Start: 01-01-2025 ambulatory GOMEZ Souza [facility] Start: 12-25-2024 End: 12-27-2024 ambulatory JESSICA FAINA [facility] Start: 12-25-2024 End: 12-27-2024 Subsequent hospital visit by physician [facility] Ul[facility]ound Room [facility] Ultrasound Comment on above: Nipple discharge Start: 12-20-2024 End: 12-21-2024 Evaluation and management of inpatient Rikki Oscar MD Work Phone: [facility] Comment on above: 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) (Primary Dx) Start: 12-20-2024 End: 12-20-2024 Orders Only Jessica Pete VOLLEYBALL COMMENTATOR-SUBSTATION MECHANIC Work Phone: [facility] Comment on above: Vasomotor symptoms d ue to menopause (Primary Dx); Brain fog; Irritability Start: 12-12-2024 End: 12-14-2024 Orders Only Jessica Pete VOLLEYBALL COMMENTATOR-SUBSTATION MECHANIC Work Phone: [facility] Comment on above: Kiesha glabrata inf ection; Vaginal yeast infection History of uterine f ibroid Start: 12-08-2024 End: 12-10-2024 ambulatory SHELLEYPIA GOLDBERG [facility] Start: 12-08-2024 End: 12-10-2024 Subsequent hospital visit by physician Mazin Mri Scanner [facility] Comment on above: Lumbar radiculopathy Thyroid nodule Acute pain of left k nee Start: 12-07-2024 End: 12-07-2024 Orders Only Kelly Solis [facility] Comment on above: Nipple discharge (Pr imary Dx) Kiesha glabrata inf ection (Primary Dx); Vaginal yeast infection Start: 12-06-2024 End: 12-06-2024 Telephone encounter Jessica Pete APRN-SUBSTATION MECHANIC [facility] Start: 12-06-2024 End: 12-06-2024 Patient encounter procedure [facility] Metal Room Dental Technician [facility] Start: 12-06-2024 End: 12-06-2024 Periodic preventive med est patient 40-64yrs [facility] Metal Room Dental Technician [facility] [place] Comment on above: Well woman exam with routine gynecological exam (Primary Dx); Screening mammogram for breast cancer; Screening for STD (sexually transmitted disease); Acute vaginitis; History of uterine fibroid; Nipple discharge; Pelvic pain; Screening for colon cancer Start: 12-06-2024 End: 12-06-2024 ambulatory [facility] Start: 12-06-2024 Encounter for gynecological examination (general) (routine) without abnormal findings [facility] Start: 11-14-2024 End: 11-14-2024 [facility] Start: 11-14-2024 End: 11-14-2024 Subsequent hospital visit by physician Gomez Green APRN - SUBSTATION MECHANIC Work Phone: [facility] Comment on above: Swelling of both low er extremities; Type 2 diabetes mellitus with hyperglycemia, without long-term current use of insulin (HCC) Start: 11-14-2024 End: 11-14-2024 Telephone encounter Bonnie Jeff [facility] Call Liliana stevens Comment on above: Results Start: 10-19-2024 End: 10-19-2024 Telephone encounter Diane Restrepo RN [facility] Comment on above: Transition Of Care Start: 10-16-2024 End: 10-18-2024 Evaluation and management of inpatient Flory Toure DO Work Phone: [facility] Comment on above: Swelling of both low er extremities (Primary Dx); Edema, unspecified type; Type 2 diabetes mellitus with hyperglycemia, without long-term current use of insulin ([facility]) Start: 10-29-2023 End: 10-29-2023 Telephone encounter Anny Vee C[facility] Comment on above: Preventative Screeni ng Start: 10-19-2023 End: 10-19-2023 Orders Only Gomez Green VOLLEYBALL COMMENTATOR-SUBSTATION MECHANIC [facility] Start: 10-13-2023 End: 10-14-2023 ambulatory [facility] Start: 10-13-2023 End: 10-13-2023 Office outpatient visit 25 minutes Gomez Green VOLLEYBALL COMMENTATOR-SUBSTATION MECHANIC [facility] Comment on above: Acquired hypothyroid ism (Primary Dx); Type 2 diabetes mellitus with hyperglycemia, without long-term current use of insulin ([facility]); Goiter; Smoking; History of Sjogren's disease ([facility]) Start: 09-01-2023 End: 09-02-2023 ambulatory [facility] Start: 09-01-2023 End: 09-01-2023 Patient encounter status Gomez Green VOLLEYBALL COMMENTATOR-SUBSTATION MECHANIC Work Phone: [facility] [place] Work Phone: Start: 09-01-2023 End: 09-01-2023 Periodic preventive med est patient 40-64yrs Gomez Green VOLLEYBALL COMMENTATOR-SUBSTATION MECHANIC Work Phone: [facility]icians Internal Medicine - Family Medicine Comment on above: Wellness examination (Primary Dx); Other specified diabetes mellitus with hyperglycemia, without long-term current use of insulin ([facility]); Graves disease; Acquired hypothyroidism; Special screening for malignant neoplasm of colon; Smoking Start: 08-31-2023 End: 08-31-2023 Encounter for gynecological examination (general) (routine) without abnormal findings Teri Perez DO Work Phone: [facility] Start: 08-31-2023 End: 08-31-2023 Patient encounter procedure Teri Perez DO Work Phone: [facility] Start: 08-31-2023 End: 08-31-2023 Periodic preventive med est patient 40-64yrs Teri Libby Perez DO Work Phone: [facility] Comment on above: Well woman exam with routine gynecological exam (Primary Dx); Screening mammogram for breast cancer; Cervical smear, as part of routine gynecological examination; History of uterine fibroid; Menorrhagia with regular cycle; History of Graves' disease; History of cervical cancer; Smoker; Weight loss; History of Sjogren's disease ([facility]) Start: 08-30-2023 Orders Only Gomez Green VOLLEYBALL COMMENTATOR-SUBSTATION MECHANIC [facility] Start: 08-27-2023 End: 08-28-2023 ambulatory GOMEZ GREEN [facility] Start: 08-27-2023 End: 08-27-2023 Office outpatient new 45 minutes Gomezniall Green VOLLEYBALL COMMENTATOR-SUBSTATION MECHANIC Work Phone: [facility] Comment on above: Encounter for medica l examination to establish care (Primary Dx); Graves' disease; Acquired hypothyroidism; Sjogren syndrome, unspecified ([facility]); Goiter; Malignant neoplasm of cervix, unspecified site ([facility]); Hyperglycemia; Hyperlipidemia, unspecified hyperlipidemia type; Smoking; Nail fungus; Hyperpigmentation Start: 08-27-2023 End: 08-27-2023 Patient encounter status Gomez Green VOLLEYBALL COMMENTATOR-SUBSTATION MECHANIC [facility] Phone: [facility] [place] Work Phone: Start: 10-19-2022 End: 10-20-[address] [facility] Start: 03-17-2022 End: 03-17-[address] [facility] Start: 07-25-2021 End: 07-25-2021 Office outpatient visit 40 minutes Stanton F Jose F DO Work Phone: [facility] Neu[facility] Comment on above: Nocturnal leg moveme nts (Primary Dx) Start: 07-10-2021 End: 07-10-2021 Office outpatient new 45 minutes Loreta Juares DO Work Phone: [facility] Rhe[facility]ology Comment on above: History of Sjogren's disease (Primary Dx); Hyperpigmentation of skin of cheek; Xerostomia; Dry mouth; Dry eyes; Telangiectasia of face; Hypothyroidism, unspecified type; Hyperglycemia; Basedow's disease; Keratoconjunctivitis sicca; Osteoarthritis of right hand, unspecified osteoarthritis type; Osteoarthritis of left foot, unspecified osteoarthritis type; Lumbar degenerative disc disease Start: 05-02-2021 (URG) Urgent Care Visit Lenora townsend [facility] Urgent Care Tommy Procedures Date Procedure Procedure Detail Performing Clinician Start: 02-08-2025 End: 02-08-2025 Creatine kinase total Trice torres MD Work Phone: Start: 02-08-2025 VITAMIN B12 & FOLATE Asa Araiza MD Work Phone: Start: 12-25-2024 Us breast uni real t estefania with image limited Jessica Pete VOLLEYBALL COMMENTATOR - PHARMACY SALESPERSON Work Phone: Start: 12-25-2024 End: 12-25-2024 Diagnostic mammography computer-aided detcj bi Jessica Pete VOLLEYBALL COMMENTATOR - PHARMACY SALESPERSON Work Phone: Start: 12-21-2024 GLUCOSE, WHOLE BLOOD Ma rk Pk Herron MD Work Phone: Start: 12-21-2024 GLUCOSE, WHOLE BLOOD Marga Herron MD Work Phone: Start: 12-21-2024 Rhythm ecg 1-3 leads w/interpretation & report Unknown Provider Result Start: 12-21-2024 Blood count complete auto&auto difrntl wbc Dipti Crowen VOLLEYBALL COMMENTATOR - SUBSTATION MECHANIC Work Phone: Start: 12-21-2024 GLUCOSE, WHOLE BLOOD Marga Herron MD Work Phone: Start: 12-21-2024 Urnls dip stick/tabl et reagent auto microscopy Dipti Crowen VOLLEYBALL COMMENTATOR - SUBSTATION MECHANIC Work Phone: Start: 12-20-2024 Basic metabolic pane [...] Start: 12-20-2024 Comprehensive metabo lic panel Rikki Oscar MD Work Phone: Start: 12-20-2024 [...] of thyroid stimulating hormone tsh Karime BlakeersKadeem VOLLEYBALL COMMENTATOR [employer] Work Phone: Start: 10-18-2024 Rhythm ecg 1-3 leads w/interpretation & report Unknown Provider Result Start: 10-17-2024 Assay of osmolality urine Melissa Tamayo Hemmelgarn DO Work Phone: Start: 10-17-2024 Urine albumin quantitative Melissa E Hemmelgarn DO Work Phone: Start: 10-17-2024 End: 10-17-2024 GLUCOSE, WHOLE BLOOD Becky Avila MD Work Phone: Start: 10-17-2024 Ct angio abd&plvis c ntrst mtrl w/wo cntrst img Karime BlakeersKadeem VOLLEYBALL COMMENTATOR [employer] SUBSTATION MECHANIC Work Phone: Start: 10-17-2024 End: 10-17-2024 Rhythm ecg 1-3 leads w/interpretation & report Unknown Provider Result Start: 10-17-2024 Urnls dip stick/tabl et reagent auto microscopy Dipti Romero VOLLEYBALL COMMENTATOR - SUBSTATION MECHANIC Work Phone: Start: 10-17-2024 Hemoglobin glycosyla kaylen a1c Dipti Romero VOLLEYBALL COMMENTATOR - SUBSTATION MECHANIC Work Phone: Start: 10-16-2024 GLUCOSE, WHOLE BLOOD Connor Avila MD Work Phone: Start: 10-16-2024 End: 10-17-2024 Ecg routine ecg w/least 12 lds i&r only Flory Toure DO Work Phone: Start: 10-16-2024 Comprehensive metabo lic panel Flory Alcantara Toure DO Work Phone: Start: 10-13-2023 Adult depression scr eening assessment Gomez Green VOLLEYBALL COMMENTATORinContact Work Phone: Start: 09-01-2023 Adult depression scr eening assessment Gomez Green VOLLEYBALL COMMENTATORinContact Work Phone: Start: 09-01-2023 Microalbumin [Mass/v olume] in Urine by Test strip Gomez Green VOLLEYBALL COMMENTATORinContact Work Phone: Start: 08-31-2023 Adult depression scr eening assessment Teri Perez DO Work Phone: Start: 08-31-2023 Microscopic observat ion [Identifier] in Cervix by Cyto stain Gomez Green VOLLEYBALL COMMENTATORinContact Work Phone: Start: 08-27-2023 Adult depression scr eening assessment Gomez Green VOLLEYBALL COMMENTATORinContact Work Phone: Start: 11-08-2020 Mammography Gomez Barajas ch VOLLEYBALL COMMENTATORinContact Work Phone: Plan of Treatment Date Care Activity Detail Author Start: 12-25-2026 Screening for malignant neoplasm of breast [facility] Start: 08-31-2026 Screening for malignant neoplasm of cervix Pap Smear [facility] Start: 08-02-2026 Tobacco Counseling Tobacco Counseling [facility] Start: 01-30-2026 Adult BMI Screening Adult BMI Screening [facility] Start: 01-30-2026 Tobacco Screening Tobacco Screening [facility] Start: 01-10-2026 Adult BMI Screening Adult BMI Screening [facility] Start: 01-10-2026 Tobacco Screening Tobacco Screening [facility] Start: 12-25-2025 Screening for malignant neoplasm of breast Mammogram [facility] Start: 12-21-2025 GFR test (Diabetes, CKD 3-4, OR last GFR 15-59) GFR test (Diabetes, CKD 3-4, OR last GFR 15-59) [facility] Start: 12-06-2025 Adult BMI Screening Adult BMI Screening [facility] Start: 12-06-2025 Tobacco Screening Tobacco Screening [facility] Start: 11-14-2025 GFR test (Diabetes, CKD 3-4, OR last GFR 15-59) GFR test (Diabetes, CKD 3-4, OR last GFR 15-59) [facility] Start: 11-14-2025 Urine screening for protein Diabetic Alb to Cr ratio (uACR) test [facility] Start: 10-18-2025 GFR test (Diabetes, CKD 3-4, OR last GFR 15-59) GFR test (Diabetes, CKD 3-4, OR last GFR 15-59) [facility] Start: 10-17-2025 Urine screening for protein Diabetic Alb to Cr ratio (uACR) test [facility] Start: 03-22-2025 End: 03-22-2025 Patient encounter procedure 03/22/2025 2:20 PM EDT Office Visit [address] [place] [phone] Trice Araiza MD [address] [place] [address] Dr [address] [place] [phone] Peripheral Neuropathy ; 1 mth follow up EEG, labs [facility] Comment on above: Peripheral Neuropathy ; 1 mth follow up EEG, labs Start: 03-06-2025 End: 03-06-2025 Patient encounter procedure 03/06/2025 2:15 PM EDT Office Visit [facility] [address] [place] [phone] Carmen Keen MD [address] [place], [place] [phone] [facility] Start: 03-05-2025 Influenza vaccination [facility] Start: 02-28-2025 Tobacco Counseling Tobacco Counseling [facility] Start: 02-08-2025 End: 02-08-2025 Patient encounter procedure 02/08/2025 1:20 PM EDT Office Visit [address] [place] [facility] [place] [phone] Trice Araiza MD [address] [place] [address] [address] [place] [address] [facility] Comment on above: ALS Start: 02-05-2025 End: 02-05-2025 Patient encounter procedure 02/05/2025 1:40 PM EDT Office Visit [facility] [address] [place] [address] Trice Araiza MD [address] [facility] [address] [place] [address] [facility] NEUROLOGY [facility] Comment on above: ALS Start: 02-02-2025 Influenza vaccination [facility] Start: 01-30-2025 End: 01-30-2025 Patient encounter procedure 01/30/2025 1:30 PM EDT Office Visit [facility] [address] [place] [phone] Carmen Keen MD Replaced by [facility] [place] [address] [place] [address] [facility] Start: 01-18-2025 End: 01-11-2026 Electromyography EMG & NERVE CONDUCTION Neurology Routine Weakness Expected: 01/18/2025, Expires: 01/11/2026 [facility] Comment on above: Expected: 01/18/2025, Expires: Start: 01-16-2025 Hemoglobin A1c measurement A1C test (Diabetic or Prediabetic) [facility] Start: 01-01-2025 End: 01-01-2025 Patient encounter procedure 01/01/2025 4:45 PM EDT Appointment [facility] [address] [place] [address] Bobby Graves, PT [facility] Start: 01-01-2025 End: 01-01-2025 Patient encounter procedure [facility] Mammography Comment on above: media/pt Start: 12-25-2024 End: 12-25-2024 Patient encounter procedure [facility] Comment on above: media/pt Start: 12-12-2024 End: 12-12-2024 Patient encounter procedure 12/12/2024 1:00 PM EDT Appointment [facility] [place] Ul[facility] [address] [place], [place] [id number] media/pt [facility] Ultrasound Comment on above: media/pt Start: 12-07-2024 End: 12-07-2025 US Breast - bilateral limited Ultrasound breast limited bilateral Imaging Routine Nipple discharge Expected: 12/07/2024, Expires: 12/07/2025 [employer] Phone: Comment on above: Expected: 12/07/2024, Expires: Start: 12-06-2024 End: 12-06-2025 MG Breast Diagnostic Mammography diagnostic bilateral with CAD Imaging Routine Nipple discharge Expected: 12/06/2024, Expires: 12/06/2025 [facility] Comment on above: Expected: 12/06/2024, Expires: Start: 12-06-2024 End: 12-06-2025 US Pelvis transabdominal and transvaginal Ultrasound pelvic with transvaginal Imaging Routine History of uterine fibroid Pelvic pain Expected: 12/06/2024, Expires: 12/06/2025 [facility] Comment on above: Expected: 12/06/2024, Expires: Start: 10-25-2024 End: 10-18-2025 Basic metabolic 2000 panel - Serum or Plasma Basic Metabolic Panel Lab Routine Swelling of both lower extremities Type 2 diabetes mellitus with hyperglycemia, without long-term current use of insulin (HCC) Expected: 10/25/2024, Expires: 10/18/2025 [facility] Comment on above: Expected: 10/25/2024, Expires: Start: 10-25-2024 End: 10-18-2025 CBC W Auto Differential panel - Blood CBC with Auto Differential Lab Routine Swelling of both lower extremities Type 2 diabetes mellitus with hyperglycemia, without long-term current use of insulin (HCC) Expected: 10/25/2024, Expires: 10/18/2025 [facility] Comment on above: Expected: 10/25/2024, Expires: Start: 10-12-2024 Adult BMI Screening Adult BMI Screening [facility] Start: 10-12-2024 Depression Screening Depression Screening [facility] Start: 10-12-2024 Tobacco Screening Tobacco Screening [facility] Start: 09-01-2024 Adult BMI Screening Adult BMI Screening [facility] Start: 09-01-2024 Depression Screening Depression Screening [facility] Start: 09-01-2024 Diabetic foot examination Diabetic Foot Exam [facility] Start: 09-01-2024 Tobacco Screening Tobacco Screening [facility] Start: 09-01-2024 Urine screening for protein Urine Microalbumin [facility] Start: 08-31-2024 Adult BMI Screening Adult BMI Screening [facility] Start: 08-31-2024 Depression Screening Depression Screening [facility] Start: 08-31-2024 Tobacco Screening Tobacco Screening [facility] Start: 08-27-2024 Adult BMI Screening Adult BMI Screening [facility] Start: 08-27-2024 Depression Screening Depression Screening [facility] Start: 08-27-2024 Tobacco Screening Tobacco Screening [facility] Start: 03-05-2024 COVID-19 Vaccine ( season) COVID-19 Vaccine ( season) [facility] Start: 03-05-2024 Influenza vaccination Influenza Vaccine [facility] Start: 10-13-2023 End: 10-12-2024 US Thyroid gland Ultrasound thyroid Imaging Routine Goiter Expected: 10/13/2023, Expires: 10/12/2024 [facility] Work Phone: Comment on above: Expected: 10/13/2023, Expires: Start: 10-13-2023 End: 10-13-2023 Patient encounter procedure 10/13/2023 8:40 AM EDT Office Visit [facility] Internal Medicine - Family Medicine [address] [place] [address] Gomez Green, VOLLEYBALL COMMENTATOR-SUBSTATION MECHANIC [address] [place] [address] [facility] - [facility] Start: 09-15-2023 End: 09-15-2023 Patient encounter procedure 09/15/2023 9:30 AM EDT Office Visit [facility] [address] [place] [phone] Teri Perez, [address] [place] [address] [facility] Start: 09-01-2023 End: 09-01-2023 Patient encounter procedure 09/01/2023 8:30 AM EST Office Visit [facility] - Family Medicine [address] [place] [address] Gomez Green, VOLLEYBALL COMMENTATOR-SUBSTATION MECHANIC [address] [place] [address] [facility] Start: 08-31-2023 End: 08-31-2024 Cytopathology procedure, preparation of smear, genital source Pap Smear Pathology and Cytology Routine Cervical smear, as part of routine gynecological examination Expected: 08/31/2023 (Approximate), Expires: 08/31/2024 [facility] Comment on above: Expected: 08/31/2023 (Approximate), Expi res: 08/31/2024 Start: 08-31-2023 End: 08-31-2024 DBT Breast - bilateral screening Mammography screening bilateral with CAD Imaging Routine Screening mammogram for breast cancer Expected: 08/31/2023, Expires: 08/31/2024 [facility]: Comment on above: Expected: 08/31/2023, Expires: Start: 08-31-2023 End: 08-31-2024 US Pelvis transabdominal and transvaginal Ultrasound pelvic with transvaginal Imaging Routine History of uterine fibroid Menorrhagia with regular cycle Expected: 08/31/2023, Expires: 08/31/2024 [facility] Comment on above: Expected: 08/31/2023, Expires: Start: 08-31-2023 End: 08-31-2023 Patient encounter procedure 08/31/2023 1:00 PM EST [facility] [address] [place] [phone] Teir Perez DO [address] [place], [place] [phone] [facility] Start: 08-14-2023 DTaP,Tdap and Td Vaccines (2 - Td or Tdap) DTaP,Tdap and Td Vaccines (2 - Td or Tdap) [facility] Start: 08-14-2023 DTaP/Tdap/Td vaccine (2 - Td or Tdap) DTaP/Tdap/Td vaccine (2 - Td or Tdap) [facility] Start: 08-14-2023 Tetanus vaccination TETANUS [facility] Start: 03-05-2023 Influenza vaccination Influenza Vaccine [facility] Start: 11-08-2022 Screening for malignant neoplasm of breast Breast cancer screen [facility] Start: 07-16-2022 End: 07-16-2022 Patient encounter procedure 07/16/2022 Office Visit Rheumatology Mor Harmon, Loreta Mann, DO [address] [place] [address] [facility] Rheumatology Start: 06-23-2022 End: 07-10-2022 C-reactive protein C REACTIVE PROTEIN Lab Routine History of Sjogren's disease Hyperpigmentation of skin of cheek Xerostomia Dry mouth Dry eyes Telangiectasia of face Hypothyroidism, unspecified type Hyperglycemia 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, 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, unspecified osteoarthritis type Lumbar degenerative disc disease Expected: 06/23/2022 (Approximate), Expires: 07/10/2022 [facility] Comment on above: Expected: 06/23/2022 (Approximate), Expi [...] disc disease Expected: 06/23/2022 (Approximate), Expires: 07/10/2022 [facility] Comment on above: Expected: 06/23/2022 (Approximate), [...] disc disease Expected: 06/23/2022 (Approximate), Expires: 07/10/2022 [facility] Comment on above: Expected: 06/23/2022 (Approximate), Expi [...] disc disease Expected: 06/23/2022 (Approximate), Expires: 07/10/2022 [facility] Comment on above: Expected: 06/23/2022 (Approximate), Expi [...] disc disease Expected: 06/23/2022 (Approximate), Expires: 07/10/2022 [facility] Comment on above: Expected: 06/23/2022 (Approximate), Expi [...] disc disease Expected: 06/23/2022 (Approximate), Expires: 07/10/2022 [facility] Comment on above: Expected: 06/23/2022 (Approximate), Expi [...] disc disease Expected: 06/23/2022 (Approximate), Expires: 07/10/2022 [facility] Comment on above: Expected: 06/23/2022 (Approximate), Expi [...] disc disease Expected: 06/23/2022 (Approximate), Expires: 07/10/2022 [facility] Comment on above: Expected: 06/23/2022 (Approximate), [...] disc disease Expected: 06/23/2022 (Approximate), Expires: 07/10/2022 [facility] Comment on above: Expected: 06/23/2022 (Approximate), Expi res: 07/10/2022 Start: 11-08-2021 Screening for malignant neoplasm of breast [facility] Start: 09-05-2021 End: 09-05-2021 Telemedicine consultation with patient 09/05/2021 Telemedicine Neurology Stanton Kohler, DO [address] [place] [address] [facility] Neurology Start: 03-05-2021 Influenza vaccination INFLUENZA VACCINE (#1) [facility] Start: 2020 Colonoscopy COLORECTAL CANCER SCREENING DISCUSSION [facility] Start: 2020 Screening for malignant neoplasm of colon [facility] Start: 05-07-2016 Glaucoma screening Diabetic retinal exam [facility] Start: 2015 Fasting lipid profile LIPID SCREENING [facility] Start: 2015 Lipid panel LIPID SCREENING [facility] Start: 2015 Screening mammography MAMMOGRAM SCREENING DISCUSSION [facility] Start: 2005 Screening for malignant neoplasm of cervix [facility] Start: 1996 Screening for malignant neoplasm of cervix [facility] Start: 1994 Hepatitis B vaccination HEP B VACCINE (1 of + 3-dose series) [facility] Start: 1994 Hepatitis B vaccine (1 of 3 - 19+ 3-dose series) Hepatitis B vaccine (1 of 3 - 19+ 3-dose series) [facility] Start: 1994 Pneumococcal 0-49 years Vaccine (1 of 2 - PCV) Pneumococcal 0-49 years Vaccine (1 of 2 - PCV) [facility] Start: 1994 Third diphtheria, tetanus and acellular pertussis (DTaP) vaccination TDAP (ADULT) [facility] Start: 1993 Adult BMI Follow Up Plan Adult BMI Follow Up Plan [facility] Start: 1993 Hepatitis C screening Hepatitis C screen [facility] Start: 1993 Tetanus vaccination TETANUS [facility] Start: 1990 HIV screening [facility] Start: 1987 Depression Screen Depression Screen [facility] Start: 1985 Diabetic foot examination Diabetic foot exam [facility] Start: 1985 Lipid panel Lipids [facility] Start: 1980 COVID-19 VACCINE (1) COVID-19 VACCINE (1) [facility] Start: 1975 Glaucoma screening Diabetic Ophthalmology Exam [facility] Start: 1975 Hepatitis C antibody, confirmatory test HEPATITIS C VIRUS SCREENING [facility] Start: 1975 Hepatitis C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 Procedures US BREAST LIMITED RIGHT Jessica Pete VOLLEYBALL COMMENTATOR - PHARMACY SALESPERSON [address] [address] Phone: tel: fax: Referral ID Status Reason Start Date Expiration Date Visits Re quested Visits Authorized [id number] Open 12/25/2024 12/25/2025 1 1 [facility] Narrative* Other (Routine) - Closed Specialty Diagnoses / Procedures Referred By Contac t Referred To Contact Radiology Diagnoses Nipple discharge Procedures DELFINO HIPOLITO DIGITAL DIAGNOSTIC BILATERAL Jessica Pete PAULO - PHARMACY SALESPERSON [address] [address] Phone: tel:[phone] fax: Referral ID Status Reason Start Date Expiration Date Visits Re quested Visits Authorized [id number] Closed 12/06/2024 12/06/2025 1 1 [facility] Summary Purpose Family History No Family [...] Documents on File Type Date Recorded Patient Child Development Teacher Expl anation ACP-Advance Directive 12/21/2024 1:07 PM [...] Documents on File Type Date Recorded Patient Child Development Teacher Expl anation ACP-Advance Directive 12/21/2024 1:07 PM [...] unspecified type Becky Avila MD [address] [place] [address] Phone: tel: fax: [facility] [address] [place] [address] Referral ID Status Reason Start Date Expiration Date Visits Re quested Visits Authorized [id number] 1 1 Reason Onset Date Comments Transition [...] with hyperglycemia (HCC) Ann Herron MD [address] [facility] [place] [address] Phone: tel: fax: [facility] [address] [place] [address] Referral ID Status Reason Start Date Expiration Date Visits Re quested Visits Authorized [id number] Reason Comments New Patient Last seen in Jul. Reason Comments HRT Care Teams (unrecognized sec tion and content) Director Of Special Events Relationship Specialty Start Date End Date Office Of Gabe Jolly Md Other [address] [place], [place] [id number] PCP - General 10/29/16 Director Of Special Events Relationship Specialty Start Date End Date Office Of Gabe Jolly Md Other [address] [place] [address] PCP - General 10/29/16 Director Of Special Events Relationship Specialty Start Date End Date Gomez Green, VOLLEYBALL COMMENTATOR-SUBSTATION MECHANIC [address] [place] [address] PCP - General Internal Medicine 08/27/23 Director Of Special Events Relationship Specialty Start Date End Date Gomez Green VOLLEYBALL COMMENTATOR-SUBSTATION MECHANIC [address] [place] [address] PCP - General Internal Medicine 08/27/23 Director Of Special Events Relationship Specialty Start Date End Date Jessy Greeniana Libby VOLLEYBALL COMMENTATOR-SUBSTATION MECHANIC [address] [place] [address] PCP - General Internal Medicine 08/27/23 Director Of Special Events Relationship Specialty Start Date End Date Norma Gomez Libby VOLLEYBALL COMMENTATOR-SUBSTATION MECHANIC [address] [place] [address] PCP - General Internal Medicine 08/27/23 Director Of Special Events Relationship Specialty Start Date End Date Gomez Green VOLLEYBALL COMMENTATOR-SUBSTATION MECHANIC [address] [place] [address] PCP - General Internal Medicine 08/27/23 Director Of Special Events Relationship Specialty Start Date End Date Norma Gomez Souza VOLLEYBALL COMMENTATOR-SUBSTATION MECHANIC [address] [place] [address] PCP - General Internal Medicine 08/27/23 Director Of Special Events Relationship Specialty Start Date End Date Gomez Green VOLLEYBALL COMMENTATOR-SUBSTATION MECHANIC [address] [place] [address] PCP - General Internal Medicine 08/27/23 Director Of Special Events Relationship Specialty Start Date End Date Gomez Green VOLLEYBALL COMMENTATOR - SUBSTATION MECHANIC [address] [place] [address] PCP - General Family Medicine 10/17/24 Director Of Special Events Relationship Specialty Start Date End Date Gomez Green VOLLEYBALL COMMENTATOR [facility] [address] [place] [address] PCP - General Family Medicine 10/17/24 Director Of Special Events Relationship Specialty Start Date End Date NormaJessyGomezniall Souza VOLLEYBALL COMMENTATOR [facility] [address] [place] [address] PCP - General Family Medicine 10/17/24 Director Of Special Events Relationship Specialty Start Date End Date Gomez Green VOLLEYBALL COMMENTATOR [facility] [address] [place] [address] PCP - General Family Medicine 10/17/24 Director Of Special Events Relationship Specialty Start Date End Date Norma Gomez Souza VOLLEYBALL COMMENTATOR [facility] [address] [place] [address] PCP - General Family Medicine 10/17/24 Director Of Special Events Relationship Specialty Start Date End Date Gomez Green VOLLEYBALL COMMENTATOR [facility] [address] [place] [address] PCP - General Family Medicine 10/17/24 Director Of Special Events Relationship Specialty Start Date End Date Gomez Green VOLLEYBALL COMMENTATOR SUBSTATION MECHANIC [address] [place] [address] PCP - General Family Medicine 10/17/24 Director Of Special Events Relationship Specialty Start Date End Date Shelley Goldberg MD [address] [place] [address] PCP - General 12/21/24 Director Of Special Events Relationship Specialty Start Date End Date Shelley Goldberg MD [address] [place] [address] PCP - General 12/21/24 Director Of Special Events Relationship Specialty Start Date End Date Shelley Goldberg MD [address] [place] [address] PCP - General 12/21/24 Director Of Special Events Relationship Specialty Start Date End Date Office Of Gabe Jolly Md [facility] [address] [place] [address] PCP - General 10/29/16 Director Of Special Events Relationship Specialty Start Date End Date Ashlyn Rosa MD [address] [place] [address] PCP - General Family Medicine 01/10/25 Director Of Special Events Relationship Specialty Start Date End Date Ashlyn Rosa MD [address] [place] [place] [address] PCP - General Family Medicine 01/10/25 Director Of Special Events Relationship Specialty Start Date End Date Ashlyn Rosa MD [address] [place] [address] PCP - General Family Medicine 01/10/25 Director Of Special Events Relationship Specialty Start Date End Date Shelley Goldberg MD [address] [place] [address] PCP - General 12/21/24 Director Of Special Events Relationship Specialty Start Date End Date Ashlyn Rosa MD [address] [place] [address] PCP - General Family Medicine 01/10/25 INFORMATION SOURCE (unrecogn ized section and content) DATE CREATED AUTHOR 10/20/2022 [facility] DATE CREATED AUTHOR AUTHOR'S ORGANIZ ATION 10/15/2023 [facility] DATE CREATED AUTHOR AUTHOR'S ORGANIZ ATION 01/14/2025 [facility] DATE CREATED AUTHOR AUTHOR'S ORGANIZ ATION 02/01/2025 [facility] DATE CREATED AUTHOR AUTHOR'S ORGANIZ ATION 02/03/2025 [facility] DATE CREATED AUTHOR AUTHOR'S ORGANIZ ATION 02/11/2025 [facility] Ordered Prescriptions (unrec ognized section [...] Provider: Rupali Denney RN)2051 (Given - Provider: Ramointa Da Silva RN) 0909 (Given - Provider: [...] - Comment[facility] sodium chloride flush 0.9 % [...] BE BASED ON THE PRIMARY CLINICAL RECORDS. [employer] provides no warranty or guarantee of the accuracy or completeness of information in this document.
--- OUTSIDE RECORDS SUMMARY | 2025-03-08 00:10 | XMS_ITS | Clinical Summary ---
Author Organization [facility] Address [address] [place] [address] Care Team Providers Care Bobbin Marker Name Role Phone Office Of Lissette Jolly Md Other Primary Car e Provider Allergies No known active allergies Medications levothyroxine 300 MCG tablet Take 300 mcg by mouth daily. Active pilocarpine 5 MG tabletIndications: History of Sjogren's disease,Hyperpigme ntation of skin of cheek,Xerostomia,D ry mouth,Dry eyes,Telangiectasi a of face,Hypothyroidis m, unspecified type,Hyperglycemia ,Basedow's disease,Keratoconj unctivitis sicca,Osteoarthrit is of right hand, unspecified osteoarthritis type,Osteoarthriti s of left foot, unspecified osteoarthritis type,Lumbar degenerative disc disease 1 po qid 30 minutes prior to meals and bed time 120 tablet 11 07/10/19 Active Additional Information Patient not taking.Reported on 01/11/2025 Dulaglutide (Trulicity) 0.75 MG/0.5ML Solution Auto-injector injection Inject 0.5 mL under the skin once a week. Active Insulin glargine 100 UNIT/ML vial Inject 40 Units under the skin daily every morning. Active Empagliflozin (Jardiance) 10 MG tablet Take 1 tablet by mouth daily. Active Nicotine 21 MG/24HR Patch [address] 1 patch on skin every 24 hours. Active rOPINIRole 0.25 MG tablet 1 po 2-3 hours before bed x 1 week then increase to 2 before bed if no SE 60 tablet 1 01/12/20 Active Active Problems Problem Noted Date Diagnosed Date Nocturnal leg movements 07/29/2021 Disorder of bone and cartilage 07/10/2021 History of Sjogren's disease 07/10/2021 Dry eyes 07/10/2021 Keratoconjunctivitis sicca 07/10/2021 Dry mouth 07/10/2021 Xerostomia 07/10/2021 Hypothyroid 07/10/2021 Hyperglycemia 07/10/2021 Telangiectasia of face 07/10/2021 Hyperpigmentation of skin of cheek 07/10/2021 Obesity: body mass index of 35.0-39.9 07/10/2021 Malignant neoplasm of cervix 10/29/2016 Overview (10/29/2016): Overview: freeze and scrap 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 Overview (10/29/2016): Overview: replace inactive diagnosis Neck pain 10/29/2016 Shoulder pain 10/29/2016 Lumbar degenerative disc disease 10/29/2016 Vitamin D deficiency 10/29/2016 Noncompliance 10/29/2016 Osteoarthritis of foot, left 10/29/2016 Right hand pain 10/29/2016 Left foot pain 10/29/2016 Osteoarthritis of right hand 10/29/2016 TTS (tarsal tunnel syndrome) 10/29/2016 Allergic rhinitis 06/14/2015 Silent Migraine 05/03/2015 Fatigue 05/03/2015 Resolved Problems Problem Noted Date Diagnosed Date Resolved Date Abnormal immunological finding in serum 10/29/2016 11/12/2016 Long-term current use of hig h risk medication other than anticoagulant 10/29/2016 11/12/2016 Encounter for long-term (cur rent) use of non-steroidal anti-inflammatories 10/29/20162021 Sjogren's syndrome 06/14/2015 2 Encounters Date Type Department Care Team Description 01/11/2025 1:40 PM EDT Office [place] [address] Yvonne Kohler DO Weakness (Primary Dx) from Last 3 Months Family History Medical History Relation Name Comments Alzheimer's Maternal Grandfather Diabetes Maternal Grandmother type 2 Diabetes Mother type 2 Hypertension Mother Other - Specify Mother COPD; Thyroi d Disorder Stroke Mother Other - Specify Sister twin Heart Murmur Relation Name Status Comments Maternal Grandfather Maternal Grandmother Mother Sister twin Social History Tobacco Use Types Packs/Day Years Used Date Smoking Tobacco: Never Smokeless Tobacco: Never Alcohol Use Standard Drinks/Week Comments Yes 0 (1 standard drink = 0.6 oz pur e alcohol) consumed rarely Comments Unknown Sex and Gender Information Value Date Recorded Sex Assigned at Not on file Legal Sex Female 6:46 PM EST Gender Identity Female Sexual Orientation Not on file Last Filed Vital Signs Vital Sign Reading Time Taken Comments Blood Pressure 120/80 01/11/2025 1:18 PM EDT Pulse 89 01/11/2025 1:18 PM EDT Temperature 36.7 C (98.1 F) 07/25/2021 11:32 AM EST Respiratory Rate 16 07/25/2021 11:3 2 AM EST Oxygen Saturation 97% 01/11/2025 1:18 PM EDT Inhaled Oxygen Concentration - - Weight 74.7 kg (164 lb 11.2 oz) 01/11/2025 1:18 PM EDT Height 175.3 cm (5' 9 ) 01/11/2025 1:18 PM EDT Body Mass Index 24.32 01/11/2025 1:18 PM EDT Plan of Treatment Health Maintenance Due Date Last Done Comments HEPATITIS C VIRUS SCREENING 1975 TSH 1975 HIV SCREENING DISCUSSION 1990 HEP B VACCINE (1 of 3 - 19+ 3-dose series) 1994 CERVICAL CANCER SCREENING DISCUSSION 1996 LIPID SCREENING 2015 COLORECTAL CANCER SCREENING DISCUSSION 2020 MAMMOGRAM SCREENING DISCUSSION 11/08/2021 11/08/2020 TETANUS 08/14/2023 08/14/2013 COVID-19 VACCINE (1 - 2023-2 5 season) 2024 INFLUENZA VACCINE (#1) 2025 TDAP (ADULT) Completed 08/14/2013 PNEUMOCOCCAL VACCINE SERIES Aged Out No longer eligible based on patient's age to complete this topic Insurance Anthem [place] Medicaid Care Teams Bobbin Marker Relationship Specialty Start Date End Date Office Of Lissette Jolly Md [facility] [address] [place] [address] PCP - General 10/29/16
--- OUTSIDE RECORDS SUMMARY | 2025-03-08 00:10 | XMS_ITS | Encounter Summary ---
Author Organization [facility] Address [id number] [address] [place] [address] Care Team Providers Care Public Health Informatician Name Role Phone Julieth Rosa MD Primary Care Provider Encounter Details Date Type Department Care Team (Late st Contact Info) Description 02/09/2025 Orders Only [facility] [address] [place] [address] Laureen Patel MA Postmenopausal syndrome Social History Tobacco Use Types Packs/Day Years Used Date Smoking Tobacco: Some Days Cigarettes 1 20.4 Started: 10/2004 Smokeless Tobacco: Never Alcohol Use Standard Drinks/Week Comments Not Currently 0 (1 standard drink = 0.6 oz pur e alcohol) PHQ-2 Answer Date Recorded Total Score 0 10/13/2023 Childcare Answer Date Recorded Childcare Unknown 10/08/2020 Employment Answer Date Recorded Employment Unknown 10/08/2020 Hunger Screening Answer Date Recorded Within the past 12 months we worried whether our food would run out before we got money to buy more. Never True 01/30/2025 Within the past 12 months th e food we bought just didn't last and we didn't have money to get more. Never True 01/30/2025 Purpose - Life Answer Date Recorded Purpose and direction in life Unknown Comments No Sex and Gender Information Value Date Recorded Sex Assigned at Not on file Legal Sex Female 8:32 AM EDT Gender Identity Not on file Sexual Orientation Not on file documented as of this encounter Plan of Treatment Not on file documented as of this encounter Procedures Procedure Name Priority Date/Time Associated Diagnosis Comments THYROID PROFILE INCLUDES TSH FT4 Routine 02/08/2025 Postmenopausal syndrome PROLACTIN Routine 02/08/2025 Postmenopausal syndrome PROGESTERONE Routine 02/08/2025 Postmenopausal syndrome ESTRADIOL Routine 02/08/2025 Postmenopausal syndrome CBC (NO DIFF) Routine 02/08/2025 Postmenopausal syndrome HCG-BETA, SERUM Routine 02/08/2025 Postmenopausal syndrome TESTOSTERONE Routine 02/08/2025 Postmenopausal syndrome LUTEINIZING HORMONE Routine 02/08/2025 Postmenopausal syndrome FOLLICLE STIMULATING HORMONE Routine 02/08/2025 Postmenopausal syndrome documented in this encounter Results * (ABNORMAL) CBC without diff (02/08/2025) External Hematocrit Hct 44.9 36.3 - 47.1 MANUALLY TRANSCRIBED RESULTS External Hemoglobin 14.9 11.9 - 15.1 MANUALLY TRANSCRIBED RESULTS External Mpv 9.7 8.1 - 13.5 MANUAL LY TRANSCRIBED RESULTS External Platelet Count 306 138 - 453 MANUALLY TRANSCRIBED RESULTS External Rbc Count 5.13(A) 3.95 - 5.11 MANUALLY TRANSCRIBED RESULTS External Rdw 13.3 11.8 - 14.4 MANUALLY TRANSCRIBED RESULTS External Wbc Count 5.9 3.5 - 11.3 MANUALLY TRANSCRIBED RESULTS External Mcv 87.5 82.6 - 102.9 MANUALLY TRANSCRIBED RESULTS External MCH 29 25.2 - 33.5 MANUALLY TRANSCRIBED RESULTS External Mchc 33.2 28.4 - 34.8 MANUALLY TRANSCRIBED RESULTS Blood Venous blood / Unknown 02/08/2025 us Carmen Ragsdale MD LAB BLOOD ORDERABLES Final Res ult MANUALLY TRANSCRIBED RESULTS * Follicle stimulating hormone (02/08/2025) Follicle stim hormone 4.8 MANUALLY TRANSCRIBED RESULTS Blood Venous blood / Unknown 02/08/2025 Carmen Ragsdale MD LAB BLOOD ORDERABLES Final Res ult Performing Organization Address City[facility] de Phone Number MANUALLY TRANSCRIBED RESULTS * HCG, Quantitative, (02/08/2025) Hcg-beta, serum 0.2 0 - 7 MANUALLY TRANSCRIBED RESULTS Blood Venous blood / Unknown 02/08/2025 Carmen Ragsdale MD LAB BLOOD ORDERABLES Final Res ult Performing Organization Address [facility] de Phone Number MANUALLY TRANSCRIBED RESULTS * Luteinizing hormone (02/08/2025) Luteinizing hormone 2.8 MANUALLY TRANSCRIBED RESULTS Blood Venous blood / Unknown 02/08/2025 Carmen Ragsdale MD LAB BLOOD ORDERABLES Final Res ult Performing Organization Address [facility] de Phone Number MANUALLY TRANSCRIBED RESULTS * (ABNORMAL) Thyroid profile includes TSH FT4 (02/08/2025) External Tsh 15.5(A) 0.27 - 4.2 MANUAL LY TRANSCRIBED RESULTS Blood Venous blood / Unknown 02/08/2025 Carmen Ragsdale MD LAB BLOOD ORDERABLES Final Res ult Performing Organization Address City/[facility] Co de Phone Number MANUALLY TRANSCRIBED RESULTS * Testosterone (02/08/2025) Testosterone 14 8 - 48 MANUALL Y TRANSCRIBED RESULTS Blood Venous blood / Unknown 02/08/2025 Carmen Ragsdale MD LAB BLOOD ORDERABLES Final Res ult Performing Organization Address [facility] Co de Phone Number MANUALLY TRANSCRIBED RESULTS * (ABNORMAL) Prolactin (02/08/2025) Prolactin 4.73(A) 4.79 - 23.3 MANUALLY TRANSCRIBED RESULTS Blood Venous blood / Unknown 02/08/2025 us Carmen Ragsdale MD LAB BLOOD ORDERABLES Final Res ult Performing Organization Address [facility] de Phone Number MANUALLY TRANSCRIBED RESULTS * Estradiol (02/08/2025) Estradiol 66 MANUALLY TRANSCRIBED RESULTS Blood Venous blood / Unknown 02/08/2025 Carmen Ragsdale MD LAB BLOOD ORDERABLES Final Res ult Performing Organization Address [facility] de Phone Number MANUALLY TRANSCRIBED RESULTS * Progesterone (02/08/2025) Progesterone 2.57 MANUALL Y TRANSCRIBED RESULTS Blood Venous blood / Unknown 02/08/2025 Carmen Ragsdale MD LAB BLOOD ORDERABLES Final Res ult Performing Organization Address [facility] de Phone Number MANUALLY TRANSCRIBED RESULTS documented in this encounter Visit Diagnoses Diagnosis Postmenopausal syndrome documented in this encounter Additional Health Concerns Assessment Noted Time PHQ-9 Depression Total Score: 0 10/13/19 24 9:28 AM EDT A Body Mass Index follow-up plan has been documented for the patient 10/31/2020 6:54 PM EDT documented as of this encounter Care Teams Public Health Informatician Relationship Specialty Start Date End Date Julieth Rosa MD [address] [facility] [place] [address] PCP - General Family Medicine 01/10/25 documented as of this encounter
--- OUTSIDE RECORDS SUMMARY | 2025-03-08 00:10 | XMS_ITS | Encounter Summary ---
Author Organization [facility] Address [id number] [address] [place] [address] Care Team Providers Care Fuel House Attendant Name Role Phone Julieth Rosa MD Primary Care Provider [phone] Encounter Details Date Type Department Care Team (Late st Contact Info) Description 02/24/2021 Orders Only [facility] Family Medicine [address] [facility] [place] [place] [id number] Christal Carrera CMA Graves disease; Acquired hypothyroidism; Enlarged thyroid Social History Tobacco Use Types Packs/Day Years Used Date Smoking Tobacco: Every Day Cigarettes 1 20 Smokeless Tobacco: Never Alcohol Use Standard Drinks/Week Comments Yes 12 (1 standard drink = 0.6 oz pu re alcohol) PHQ-2 Answer Date Recorded Total Score 0 10/14/2020 Childcare Answer Date Recorded Childcare Unknown 10/08/2020 Employment Answer Date Recorded Employment Unknown 10/08/2020 Purpose - Life Answer Date Recorded Purpose and direction in life Unknown Comments No Sex and Gender Information Value Date Recorded Sex Assigned at Not on file Legal Sex Female 8:32 AM EDT Gender Identity Not on file Sexual Orientation Not on file COVID-19 Exposure Response Date Recorded In the last month, have you been in contact with someone who was confirmed or suspected to have Coronavirus / COVID-19? No / Unsure 02/21/2021 10:20 AM EDT documented as of this encounter Plan of Treatment Not on file documented as of this encounter Procedures Procedure Name Priority Date/Time Associated Diagnosis Comments AMB REFERRAL TO ENDOCRINOLOGY Routine 02/24/2021 9:31 AM EDT Graves disease Acquired hypothyroidism Enlarged thyroid documented in this encounter Results * Ambulatory referral to Endocrinology (02/24/2021 9:31 AM EDT) us Jovana Del Rio CARE DIRECTOR RN-RAG WASHER OUTPATIENT REFERRAL ORDERABLES Final Result MANUALLY TRANSCRIBED RESULTS documented in this encounter Visit Diagnoses Diagnosis Graves disease Toxic diffuse goiter without mention of thyrotoxic crisis or storm Acquired hypothyroidism Unspecified hypothyroidism Enlarged thyroid Goiter, unspecified documented in this encounter Additional Health Concerns Assessment Noted Time PHQ-9 Depression Total Score: 0 10/15/19 21 4:04 PM EDT A Body Mass Index follow-up plan has been documented for the patient 10/31/2020 6:54 PM EDT documented as of this encounter Care Teams Fuel House Attendant Relationship Specialty Start Date End Date Julieth Rosa MD [address] [place] [address] PCP - General Family Medicine 01/10/25 documented as of this encounter
--- OUTSIDE RECORDS SUMMARY | 2025-03-08 00:10 | XMS_ITS | Encounter Summary ---
Author Organization [employer] Address [id number] [address] [place] [address] Care Team Providers Care Barking Machine Feeder Name Role Phone Julieth Rosa MD Primary Care Provider [phone] Reason for Visit * Reason Onset Date Comments Schd new patient appt 01/14/2021 Encounter Details Date Type Department Care Team (Late st Contact Info) Description 01/14/2021 Telephone [facility] Neurology [address] [place] [address] Terri Winchester Schcary new patient appt Social History Tobacco Use Types Packs/Day Years [...] on file documented as of this encounter Miscellaneous Notes * Telephone Encounter - Terri Winchester - 01/14/2021 10:49 AM EDT Received new patient referral. Please call patient to schedule a new patient appointment for Chronic migraine without aura without status migrainosus, not intractable *Dr. Olmos * Telephone Encounter - Ly Beckford - 01/14/2021 10:49 AM EDT 1st attempt Calling to schedule new patient appointment Dx: migraine - Referred to Dr. Amarilis fowler * Telephone Encounter - Ly Beckford - 01/14/2021 10:49 AM EDT Called patient to schedule new patient appt with Dr. Olmos - Jagdish voicemaleesa documented in this encounter Plan of Treatment Not on file documented as of this encounter Visit Diagnoses Not on filedocumented in this encounter Additional Health Concerns Assessment Noted Time PHQ-9 Depression Total Score: 0 10/15/19 4:04 PM EDT A Body Mass Index follow-up plan has been documented for the patient 10/31/2020 6:54 PM EDT documented as of this encounter Care Teams Barking Machine Feeder Relationship Specialty Start Date End Date Julieth Rosa MD [address] [facility] [place] [address] PCP - General Family Medicine 01/10/25 documented as of this encounter
--- OUTSIDE RECORDS SUMMARY | 2025-03-08 00:10 | XMS_ITS | Encounter Summary ---
Author Organization [employer] [facility] [employer] Address [id number] [address] [place] [address] Care Team Providers Care Director Of Neurology Name Role Phone Julieth Rosa MD Primary Care Provider [phone] Reason for Referral * Consultation (Routine) - Pending Review Specialty Diagnoses / Procedures Referred By Contvivienne t Referred To Contact Endocrinology Diagnoses Abnormal TSH Carmen Ragsdale MD [address] [facility] [place] [address] Phone: tel: fax: Meghna Christianson MD [address] [facility] [place] [address] Phone: tel: fax: Referral ID Status Reason Start Date Expiration Date Visits Requested Visits Authorized [id number] Pending Review Specialty Services Required 02/27/2025 02/27/2026 1 1 Encounter Details Date Type Department Care Team (Late st Contact Info) Description 02/27/2025 Orders Only [facility] Obstetrics/Gynecology [address] [place] [id number] Laureen Patel MA Abnormal TSH (Primary Dx) Social History Tobacco Use Types Packs/Day Years [...] on file documented as of this encounter Progress Notes * Laureen Patel MA - 02/27/2025 3:01 PM EDT Order placed per Dr. Ragsdale documented in this encounter Plan of Treatment Scheduled Referrals Name Type Priority Associated Diagnoses Order Schedule Ambulatory referral to Endocrinology (Non-[facility]) Outpatient Referral Routine Abnormal TSH 1 Occurrences starting 02/27/2025 until 02/27/2026 documented as of this encounter Visit Diagnoses Diagnosis Abnormal TSH- Primary documented in this encounter Additional Health Concerns Assessment Noted Time PHQ-9 Depression Total Score: 0 10/13/19 24 9:28 AM EDT A Body Mass Index follow-up plan has been documented for the patient 10/31/2020 6:54 PM EDT documented as of this encounter Care Teams Director Of Neurology Relationship Specialty Start Date End Date Julieth Rosa MD [address] [facility] [place] [address] PCP - General Family Medicine 01/10/25 documented as of this encounter
--- OUTSIDE RECORDS SUMMARY | 2025-03-08 00:10 | XMS_ITS | Clinical Summary ---
Author Organization [facility] Address [address], [address] [place] [address] Care Team Providers Care Drip Pumper Name Role Phone Shelley Clancy MD Primary Care Provider [phone] Allergies No known active allergies Medications nicotine (NICODERM CQ) 21 MG/24HR Place 1 patch onto the skin every 24 hours Active Insulin Syringes, Disposable, U-100 1 ML MISC 1 each by Does not apply route daily 100 each 5 Active JARDIANCE 10 MG tablet Take 1 tablet by mouth daily Active TRULICITY 0.75 MG/0.5ML SOAJ SC injection Inject 0.5 mLs into the skin once a week Sundays 5 Active insulin glargine (LANTUS) 100 UNIT/ML injection vial Inject 40 Units into the skin daily States 40-50 10 mL 5 Active DULoxetine (CYMBALTA) 60 MG extended release capsule Take 1 capsule by mouth daily 5 Active glipiZIDE (GLUCOTROL) 5 MG tablet Take 0.5 tablets by mouth every morning 15 tablet 5 02/09/20 25 Discontinu ed(Therapy completed) furosemide (LASIX) 40 MG tablet Take 1 tablet by mouth daily 30 tablet 5 02/09/20 25 Discontinu ed(Therapy completed) levothyroxine (SYNTHROID) 75 MCG tablet Take 1 tablet by mouth Daily 30 tablet 02/09/20 25 Discontinu ed(Therapy completed) Active Problems Problem Noted Date Diagnosed Date Moderate malnutrition 10/18/2024 Sjogren's syndrome 10/17/2024 Non compliance w medication regimen 10/17/2024 10/17/2024 Hypothyroid 10/17/2024 Bilateral lower extremity pitting edema 10/18/19 25 Anasarca 10/17/2024 Type 2 diabetes mellitus with hyperglycemia 10/03 Cancer of cervix Overview (04/06/2011): freeze and scrap Graves' disease Overview (03/11/2015): replace inactive diagnosis Resolved Problems Problem Noted Date Diagnosed Date Resolved Date Swelling of both lower extremities 10/17/2024 10/17/2024 Neck pain 10/17/2024 Pain in left shoulder 2024 Encounters Date Type Department Care Team Description 03/02/[address] [phone] Brenda Trent LPN appointment 02/08/2025 2:42 PM EDT - 02/08/2025 11:59 PM EDT Hospital Encounter [address] [address] Peripheral neuropathy due to disorder of metabolism; Weakness of both legs Discharge Disposition: Home or Self Care 02/08/2025 1:20 PM EDT Office Visit [facility] Part of [address] [place] [address] Josefa Martini MD Peripheral neuropathy due to disorder of metabolism (Primary Dx); Weakness of both legs 12/25/2024 2:30 PM EDT - 12/27/2024 11:59 PM EDT Hospital Encounter [address] [address] Nipple discharge Discharge Disposition: Home or Self Care 12/25/2024 2:00 PM EDT - 12/27/2024 11:59 PM EDT Hospital Encounter [address] [place] [address] Nipple discharge Discharge Disposition: Home or Self Care 12/20/2024 7:22 PM EDT - 12/21/2024 1:42 PM EDT Hospital Encounter [facility] [address] [place] [address] Rikki Oscar MD Akers, Andrei Whittington MD Diabetic ketoacidosis without coma associated with type 2 diabetes mellitus (HCC) (Primary Dx) Discharge Disposition: Home Health Care Svc 12/20/2024 Travel 12/12/2024 12:31 PM EDT - 12/14/2024 11:59 PM EDT Hospital Encounter [facility] [address] [place] [address] History of uterine fibroid Discharge Disposition: Home or Self Care 12/12/2024 Orders Only [facility] [address] [place] [address] Shelley Clancy MD 12/11/2024 Orders Only [facility] Admitting [address] [place] [address] Jessica Pete APRN - QUALITY SYSTEM MANAGER 12/08/2024 2:30 PM EDT - 12/08/2024 11:59 PM EDT Hospital Encounter [facility] [address] [place] [address] Discharge Disposition: Home or Self Care 12/08/2024 2:10 PM EDT - 12/10/2024 11:59 PM EDT Hospital Encounter [facility] [address] [place] [address] Acute pain of left knee Discharge Disposition: Home or Self Care 12/08/2024 2:05 PM EDT - 12/10/2024 11:59 PM EDT Hospital Encounter [facility] [address] [place] [phone] Thyroid nodule Discharge Disposition: Home or Self Care 12/08/2024 2:04 PM EDT - 12/10/2024 11:59 PM EDT Hospital Encounter [facility] [address] [place] [address] Lumbar radiculopathy Discharge Disposition: Home or Self Care 12/08/2024 Transcribe Orders [facility] Admitting [address] [id number] Shelley Clancy MD Acute pain of left knee (Primary Dx) 12/06/2024 Transcribe Orders Short Pre Access [address] [place] [address] Jessica Pete APRN - QUALITY SYSTEM MANAGER History of uterine fibroid (Primary Dx); Nipple discharge from Last 3 Months Immunizations Immunization Administration Dates Next Due TDaP, ADACEL (age 10y-64y), BOOSTRIX (age 10y+), IM, 0.5mL 08/14/2013 Family History Medical History Relation Name Comments Amyotrophic lateral sclerosis Maternal Cousin 1 Amyotrophic lateral sclerosis Maternal Cousin 2 Amyotrophic lateral sclerosis Maternal Uncle High Blood Pressure Mother Relation Name Status Comments Maternal Cousin 1 Alive Maternal Cousin 2 Alive Maternal Uncle Alive Mother Social History Tobacco Use Types Packs/Day Years Used Date Smoking Tobacco: Former Cigarettes Q uit: 04/04/2013 Passive Smoke Exposure: Past Smokeless Tobacco: Never Tobacco Cessation:Counseling Given: Not Answered Comments:1 ppd Alcohol Use Standard Drinks/Week Comments Yes 0 (1 standard drink = 0.6 oz pur e alcohol) seldom [facility] Utilities Answer Date Recorded In the past 12 months has th e Urjanet, gas, oil, or water Withlocals threatened to shut off services in your home? Yes 12/21/2024 Hunger Vital Sign Answer Date Recorded Within the past 12 months, y ou worried that your food would run out before you got the money to buy more. Often true 12/22/19 25 Within the past 12 months, t he food you bought just didn't last and you didn't have money to get more. Often true 12/21/2024 PRAPARE - Transportation Answer Date Re corded In the past 12 months, has l ack of transportation kept you from medical appointments or from getting medications? No 12/03 In the past 12 months, has l ack of transportation kept you from meetings, work, or from getting things needed for daily living? No 12/21/2024 Housing Stability Vital Sign Answer Adrien e Recorded In the last 12 months, was t here a time when you were not able to pay the mortgage or rent on time? Yes 12/21/2024 In the past 12 months, how m any times have you moved where you were living? 0 12/21/2024 At any time in the past 12 [address] [place], were you homeless or living in a retirement (including now)? Yes 12/21/2024 Food Insecurity Answer Date Recorded Within the past 12 months, y ou worried that your food would run out before you got the money to buy more. 3 12/21/2024 Within the past 12 months, t he food you bought just didn't last and you didn't have money to get more. 3 12/21/2024 Interpersonal Safety Domain Source: IP Abuse Scr eening Answer Date Recorded Physical abuse Denies 12/21/2024 Verbal abuse Denies 12/21/2024 Emotional abuse Denies 12/21/2024 Financial abuse Denies 12/21/2024 Sexual abuse Denies 12/21/2024 Comments No Sex and Gender Information Value Date Recorded Sex Assigned at Not on file Legal Sex Female 2:04 PM EST Gender Identity Not on file Sexual Orientation Not on file Last Filed Vital Signs Vital Sign Reading Time Taken Comments Blood Pressure 94/59 02/08/2025 2:14 PM EDT Pulse 104 02/08/2025 2:14 PM EDT Temperature 36.2 C (97.2 F) 02/08/2025 1:14 PM EDT Respiratory Rate 20 02/08/2025 1:14 PM EDT Oxygen Saturation 96% 12/21/2024 6:47 AM EDT Inhaled Oxygen Concentration - - Weight 77.1 kg (170 lb) 02/08/2025 1:14 PM EDT Height 172.7 cm (5' 8 ) 02/08/2025 1:14 PM EDT Body Mass Index 25.85 02/08/2025 1:14 PM EDT Plan of Treatment Upcoming Encounters Date Type Department Care Team (Late st Contact Info) Description 03/22/2025 2:20 PM EDT Office Visit [facility] Part of [address] [place] [phone] Josefa Martini MD [address] [place] [address] [address] [place] [address] Peripheral Neuropathy ; 1 mth follow up EEG, labs Health Maintenance Due Date Last Done Comments Diabetic foot exam 1985 Lipids 1985 Depression Screen 1987 Hepatitis B vaccine (1 of 3 - 19+ 3-dose series) 1994 Pneumococcal 0-49 years Vaccine (1 of 2 - PCV) 1994 Pap smear 1996 Cervical cancer screen 2005 HPV (without or with Pap) 2005 Diabetic retinal exam 05/07/2016 05/07/2015 Colonoscopy 2020 Colorectal Cancer Screen 2020 FIT/FOBT: Average risk 2020 Fecal-DNA (Cologuard): Average risk 2020 Sigmoidoscopy/CT colonography 2020 DTaP/Tdap/Td vaccine (2 - Td or Tdap) 08/14/2023 08/14/2013 COVID-19 Vaccine ( season) 2024 A1C test (Diabetic or Prediabetic) 01/16/2025 10/17/2024, 05/11/2014, 08/15/2013 Flu vaccine (#1) 02/02/2025 Diabetic Alb to Cr ratio (uACR) test 11/14/2025 11/14/2024, 10/17/2024 GFR test (Diabetes, CKD 3-4, OR last GFR 15-59) 12/21/2025 12/21/2024, 12/20/2024, 12/20/2024, Additional history exists Breast cancer screen 12/25/2026 12/25/2024, 11/09/19 21 HIV screen Completed 12/08/2024 Hepatitis C screen Completed 12/08/2024 Hepatitis A vaccine Aged Out No longe r eligible based on patient's age to complete this topic Hib vaccine Aged Out No longer eligi ble based on patient's age to complete this topic Meningococcal (ACWY) vaccine Aged Out No longer eligible based on patient's age to complete this topic Meningococcal B vaccine Aged Out No l onger eligible based on patient's age to complete this topic Polio vaccine Aged Out No longer elig ible based on patient's age to complete this topic Procedures Procedure Name Priority Date/Time Associated Diagnosis Comments ELECTROPHORESIS PROTEIN, SERUM Routine 02/08/2025 3:01 PM EDT Peripheral neuropathy due to disorder of metabolism CK Routine 02/08/2025 3:01 PM EDT Peripheral neuropathy due to disorder of metabolism Weakness of both legs SEDIMENTATION RATE Routine 02/08/2025 3: 01 PM EDT Peripheral neuropathy due to disorder of metabolism VITAMIN B12 & FOLATE Routine 02/08/2025 3:01 PM EDT Peripheral neuropathy due to disorder of metabolism HCG, QUANTITATIVE, Routine 02/08/2025 3:00 PM EDT TSH Routine 02/08/2025 3:00 PM EDT TESTOSTERONE Routine 02/08/2025 3:00 PM EDT PROLACTIN Routine 02/08/2025 3:00 PM EDT PROGESTERONE Routine 02/08/2025 3:00 PM EDT LUTEINIZING HORMONE Routine 02/08/2025 3 :00 PM EDT T4, FREE Routine 02/08/2025 3:00 PM EDT FOLLICLE STIMULATING HORMONE Routine 02/08/2025 3:00 PM EDT ESTRADIOL Routine 02/08/2025 3:00 PM EDT CBC Routine 02/08/2025 3:00 PM EDT US BREAST LIMITED LEFT Routine 5 3:07 PM EDT Nipple discharge US BREAST LIMITED RIGHT Routine 12/26/19 25 3:07 PM EDT Nipple discharge DELFINO HIPOLITO DIGITAL DIAGNOSTIC BILATERAL Routine 12/25/2024 2:32 PM EDT Nipple discharge GLUCOSE, WHOLE BLOOD Routine 12/21/2024 10:56 AM EDT GLUCOSE, WHOLE BLOOD Routine 12/21/2024 6:44 AM EDT EKG RHYTHM STRIP Routine 12/21/2024 6:00 AM EDT COMPREHENSIVE METABOLIC PANEL W/ REFLEX TO MG FOR LOW K Routine 12/21/2024 5:33 AM EDT CBC WITH AUTO DIFFERENTIAL Routine 12/21/2024 5:33 AM EDT GLUCOSE, WHOLE BLOOD Routine 12/21/2024 1:48 AM EDT URINALYSIS WITH MICROSCOPIC STAT 12/21/2024 12:03 AM EDT BASIC METABOLIC PANEL STAT 12/20/2024 10:10 PM EDT GLUCOSE, WHOLE BLOOD Routine 12/20/2024 8:47 PM EDT CTA HEAD NECK W CONTRAST STAT 12/20/2024 8:[address] HEAD WO CONTRAST STAT 12/20/2024 8 :26 PM EDT EKG 12-LEAD STAT 12/20/2024 7:50 PM EDT BLOOD GAS, VENOUS Routine 12/20/2024 7:4 9 PM EDT BETA-HYDROXYBUTYRATE Add-On 12/20/2024 7:40 PM EDT TROPONIN STAT 12/20/2024 7:40 PM EDT MAGNESIUM STAT 12/20/2024 7:40 PM EDT CBC WITH AUTO DIFFERENTIAL STAT 12/20/2024 7:40 PM EDT COMPREHENSIVE METABOLIC PANEL STAT 12/20/2024 7:40 PM EDT GLUCOSE, WHOLE BLOOD Routine 12/20/2024 7:30 PM EDT US PELVIS COMPLETE NON-OB TRANSABD/TRANSVAG W DOPPLER Routine 12/12/2024 1:12 PM EDT History of uterine fibroid AMB REFERRAL TO NEUROLOGY Routine 12/12/2024 12:25 PM EDT US THYROID Routine 12/08/2024 3:42 PM EDT Thyroid nodule XR KNEE LEFT (1-2 VIEWS) Routine 12/08/2024 3:01 PM EDT Acute pain of left knee MRI LUMBAR SPINE WO CONTRAST Routine 12/08/2024 2:33 PM EDT Lumbar radiculopathy T. PALLIDUM AB Routine 12/08/2024 2:32 PM EDT PROLACTIN Routine 12/08/2024 2:32 PM EDT HEPATITIS PANEL, ACUTE Routine 2:32 PM EDT HIV SCREEN Routine 12/08/2024 2:32 PM EDT ALBUMIN/CREATININE RATIO, URINE Routine 11/14/2024 4:26 PM EDT HEMOGLOBIN A1C Add-On 10/17/2024 5:30 AM EDT DIABETES EYE EXAM Routine 05/07/2015 from Last 3 Months or Most Recently Relevant to Health Maintenance Results * (ABNORMAL) Vitamin B12 & Folate (02/08/2025 3:01 PM EDT) [facility] Vitamin B-12 391 232 - 1245 pg/mL 02/08/2025 3:01 PM EDT [facility] Folate 37.3(H) 4.8 - 24.2 ng/mL 02/08/2025 3:01 PM EDT [facility] Blood BLOOD SPECIMEN / Unknown 02/08/2025 3:01 PM EDT 02/08/2025 3:02 PM EDT Josefa Martini MD CHEMISTRY ORDERABLES Fi nal Result Performing Organization Address [facility]/ZIP Co de Phone Number [facility] [address] [place] [address], [facility] [phone] [address], [facility] [phone] * (ABNORMAL) Sedimentation Rate (02/08/2025 3:01 PM EDT) Pathologist [facility] Sed Rate, Automated 21(H) 0 - 20 mm/Hr 02/08/2025 3:01 PM EDT [facility] Blood BLOOD SPECIMEN / Unknown 02/08/2025 3:01 PM EDT 02/08/2025 3:02 PM EDT Josefa Martini MD HEMATOLOGY ORDERABLES F inal Result Performing Organization Address [facility] Co de Phone Number [facility] [address] [place] [address], [facility] [phone] * Electrophoresis Protein, Serum (02/08/2025 3:01 PM EDT) Total Protein 7.0 6.6 - 8.7 g/dL 02/08/2025 3:01 PM EDT [facility] Albumin (calculated) 4.1 3.2 - 5.2 g/dL 02/08/2025 3:01 PM EDT [facility] Albumin % 58 56 - 66 % 02/08/2025 3:01 PM EDT [facility] Rdnty-7-Uphswc in 0.3 0.1 - 0.4 g/dL 02/08/2025 3:01 PM EDT [facility] Alpha 1 % 4 3 - 5 % 02/08/2025 3:01 PM EDT [facility] Cijlg-3-Wnjdid in 0.7 0.5 - 0.9 g/dL 02/08/2025 3:01 PM EDT [facility] Alpha 2 % 10 7 - 12 % 02/08/2025 3:01 PM EDT [facility] Beta Globulin 0.9 0.7 - 1.4 g/dL 02/08/2025 3:[address] [email or web address] Beta Percent 13 8 - 13 % 02/08/2025 3:01 PM EDT [facility] Gamma Globulin 1.1 0.5 - 1.5 g/dL 02/08/2025 3:[address] [facility] [email or web address] Gamma Globulin % 15 11 - 19 % 02/08/2025 3:[address] [facility] [email or web address] Total Prot. Sum 7.1 6.3 - 8.2 g/dL 02/08/2025 3:01 PM EDT [facility] Total Prot. Sum,% 100 98 - 102 % 02/08/2025 3:[address] [facility] [email or web address] Protein Electrophoresi s, Serum Normal electrophoretic pattern. 02/08/2025 3:01 PM EDT [facility] Pathologist ELECTRONICALLY SIGNED. KAILEE FERNANDEZ M.D. 02/08/2025 3:01 PM EDT [facility] BLOOD SPECIMEN / Unknown 02/08/2025 3:01 PM EDT 02/08/2025 3:02 PM EDT us Josefa Martini MD IMMUNOLOGY ORDERABLES F inal Result [facility] [address] [place] [address], [facility] [phone] [facility] [address] [phone] * CK (02/08/2025 3:01 PM EDT) Total CK 26 26 - 192 U/L 02/08/2025 3:01 PM EDT [facility] Blood BLOOD SPECIMEN / Unknown 02/08/2025 3:01 PM EDT 02/08/2025 3:02 PM EDT Josefa Martini MD CHEMISTRY ORDERABLES Fi nal Result Performing Organization Address City/[facility]/ZIP Co de Phone Number [facility] [address] [place] [address] * (ABNORMAL) Prolactin (02/08/2025 3:00 PM EDT) Only the most recent of2 resultswithin the time period is included. Prolactin 4.73(L) 4.79 - 23.3 ng/mL 02/08/2025 3:00 PM EDT [facility] Comment: The presence of macroprolactin may cause interference in female patients with various endocrinological diseases or during . 02/08/2025 3:00 PM EDT 02/08/2025 3:01 PM EDT Josefa Martini MD CHEMISTRY ORDERABLES Fi nal Result Performing Organization Address [facility] Co de Phone Number [facility] [address] [place] [address] [facility] [address] [place] [address], [facility] [phone] * Progesterone (02/08/2025 3:00 PM EDT) Progesterone 2.57 ng/mL 02/08/2025 3:00 PM EDT [facility] Comment: Female: Follicular phase <0.19 ng/mL Ovulation phase 0.06-4.14 ng/mL Luteal phase 4.11-14.5 ng/mL Postmenopausal <0.13 ng/mL 02/08/2025 3:00 PM EDT 02/08/2025 3:01 PM EDT Josefa Martini MD CHEMISTRY ORDERABLES Fi nal Result Performing Organization Address City/[facility]/ZIP Co de Phone Number [facility] [address] [place] [address], [facility] [phone] [facility] [address] [place] [address] * Estradiol (02/08/2025 3:00 PM EDT) Pathologist [facility] Estradiol 66.0 pg/mL 02/08/2025 3:00 PM EDT [facility] Comment: FEMALES: Normally menstruating Luteal phase 60-232 Follicular phase 31-90 Midcycle phase 60-533 Postmenopausal (untreated) <138 Fulvestrant treatment will show an increased estradiol concentration with this methodology. Alternate methodologies are available upon request. 02/08/2025 3:00 PM EDT 02/08/2025 3:01 PM EDT Josefa Martini MD CHEMISTRY ORDERABLES nal Result [facility] [address] [phone] [phone] * (ABNORMAL) CBC (02/08/2025 3:00 PM EDT) Pathologist [facility] WBC 5.9 3.5 - 11.3 k/uL 02/08/2025 3:00 PM EDT [facility] RBC 5.13(H) 3.95 - 5.11 m/uL 02/08/2025 3:00 [address] EDT [facility] Hemoglobin 14.9 11.9 - 15.1 g/dL 02/08/2025 3:00 [address] ED[address] [facility] Hematocrit 44.9 36.3 - 47.1 % 02/08/2025 3:00 PM ED[address] [facility] MCV 87.5 82.6 - 102.9 fL 02/08/2025 3:00 PM ED[address] [facility] MCH 29.0 25.2 - 33.5 pg 02/08/2025 3:00 [address] ED[address] [facility] MCHC 33.2 28.4 - 34.8 g/dL 02/08/2025 3:00 PM ED[address] [facility] RDW 13.3 11.8 - 14.4 % 02/08/2025 3:00 PM ED[address] [facility] Platelets 306 138 - 453 k/uL 02/08/2025 3:00 PM ED[address] [facility] MPV 9.7 8.1 - 13.5 fL 02/08/2025 3:00 [address] ED[address] [facility] NRBC Automated 0.0 0.0 per 100 WBC 02/08/2025 3:00 [address] ED[address] [facility] 02/08/2025 3:00 PM EDT 02/08/2025 3:01 PM EDT Josefa Martini MD HEMATOLOGY ORDERABLES F inal Result Performing Organization Address [facility] Co de Phone Number [facility] [address] [place] [address] * HCG, Quantitative, (02/08/2025 3:00 PM EDT) hCG Quant <0.2 0 - 7 mIU/mL 02/08/2025 3:00 PM EDT [facility] Comment: Non-preg premeno <=5 Postmeno <=8 Male <=3 If HCG results do not concur with clinical observations, additional testing to confirm results is recommended. 02/08/2025 3:00 PM EDT 02/08/2025 3:01 PM EDT Josefa Martini MD CHEMISTRY ORDERABLES Fi nal Result Performing Organization Address [facility]/ZIP Co de Phone Number [facility] [address] [place] [address] * (ABNORMAL) TSH (02/08/2025 3:00 PM EDT) TSH 15.50(H) 0.27 - 4.20 uIU/mL 02/08/2025 3:00 PM EDT [facility] 02/08/2025 3:00 PM EDT 02/08/2025 3:01 PM EDT us Josefa Martini MD CHEMISTRY ORDERABLES Fi nal Result Performing Organization Address City/[facility]/ZIP Co de Phone Number [facility] [address] [place] [address], [facility] [phone] * (ABNORMAL) T4, Free (02/08/2025 3:00 PM EDT) T4 Free 0.5(L) 0.92 - 1.68 ng/dL 02/08/2025 3:00 PM EDT [facility] 02/08/2025 3:00 PM EDT 02/08/2025 3:01 PM EDT us Josefa Martini MD CHEMISTRY ORDERABLES Fi nal Result Performing Organization Address [facility] Co de Phone Number [facility] [address] [place] [address], [facility] [phone] [facility] [address] [place] [address], [facility] [phone] * Testosterone (02/08/2025 3:00 PM EDT) Testosterone 14 8 - 48 ng/dL 02/08/2025 3:00 PM EDT [facility] 02/08/2025 3:00 PM EDT 02/08/2025 3:01 PM EDT us Josefa Martini MD CHEMISTRY ORDERABLES Fi nal Result Performing Organization Address [facility]/ZIP Co de Phone Number [facility] [address] [place] [address], [facility] [phone] [facility] [address] [place] [address], [facility] [phone] * Luteinizing Hormone (02/08/2025 3:00 PM EDT) LH 2.8 1.7 - 8.6 mIU/mL 02/08/2025 3:00 PM EDT [facility] Comment: Reference Range: Male: 1.7-8.6 Ovulating Female: Follicular Phase 2.4-12.6 Ovulation Phase 14.0-95.6 Luteal Phase 1.0-11.4 Postmenopausal Female: 7.7-58.5 02/08/2025 3:00 PM EDT 02/08/2025 3:01 PM EDT Josefa Martini MD CHEMISTRY ORDERABLES Fi nal Result Performing Organization Address City/[facility]/ZIP Co de Phone Number [facility] [address] [place] [address] [facility] [address] [place] [address], [facility] [phone] * Follicle Stimulating Hormone (02/08/2025 3:00 PM EDT) FSH 4.8 mIU/mL 02/08/2025 3:00 PM EDT [facility] Comment: Reference Range: Male: 1.5-12.4 Ovulating Female: Follicular Phase 3.5-12.5 Ovulation Phase 4.7-21.5 Luteal Phase 1.7-7.7 Postmenopausal Female: 25.8-134.8 02/08/2025 3:00 PM EDT 02/08/2025 3:01 PM EDT Josefa Martini MD CHEMISTRY ORDERABLES Fi nal Result [facility] [address] [place] [address], [facility] [phone] [email or web address] [address] [place] [address], [facility] [phone] * US BREAST LIMITED RIGHT (12/25/2024 3:07 PM EDT) Anatomical Region Laterality Modality Breast Right Ultrasound 12/25/2024 3:0 4 PM EDT Impressions 12/25/2024 3:07 PM EDT No evidence of malignancy either breast. There [...] to the patient regarding the results. [employer] recommends annual mammograms for women 40 years and older. Narrative 12/25/2024 3:07 PM EDT EXAMINATION: DIAGNOSTIC DIGITAL BILATERAL BREASTS MAMMOGRAM WITH [...] mass lesions. No ductal ectasia is noted. us Jessica Pete CASKET ASSEMBLER - QUALITY SYSTEM MANAGER IMG US ORDERABLES Final R esult * US BREAST LIMITED LEFT (12/25/2024 3:07 PM EDT) Anatomical Region Laterality Modality Breast Left Ultrasound 12/25/2024 3:04 PM EDT Impressions 12/25/2024 3:07 PM EDT No evidence of malignancy either breast. There [...] to the patient regarding the results. [employer] recommends annual mammograms for women 40 years and older. Narrative 12/25/2024 3:07 PM EDT EXAMINATION: DIAGNOSTIC DIGITAL BILATERAL BREASTS MAMMOGRAM WITH [...] mass lesions. No ductal ectasia is noted. us Jessica Pete CASKET ASSEMBLER - QUALITY SYSTEM MANAGER IMG US ORDERABLES Final R esult * [facility] H[facility]OL[facility]O DIGITAL DIAGNOSTIC BILATERAL (12/25/2024 2:32 PM EDT) Anatomical Region Laterality Modality Breast Bilateral Mammography 12/25/2024 3:04 PM EDT Impressions 12/25/2024 3:07 PM EDT No evidence of malignancy either breast. There [...] to the patient regarding the results. [employer] recommends annual mammograms for women 40 years and older. Performing Facility: [place] [address] Narrative 12/25/2024 3:07 PM EDT EXAMINATION: DIAGNOSTIC DIGITAL BILATERAL BREASTS MAMMOGRAM WITH [...] mass lesions. No ductal ectasia is noted. us Jessica Pete CASKET ASSEMBLER - QUALITY SYSTEM MANAGER IMG MAMMOGRAPHY ORDERABLE S Final Result * (ABNORMAL) Glucose, Whole Blood (12/21/2024 10:56 AM EDT) Only the most recent of5 resultswithin the time period is included. POC Glucose 264(H) 74 - 100 mg/dL 12/21/2024 10:56 AM EDT [facility] 12/21/2024 10:5 6 AM EDT 12/21/2024 11:03 AM EDT us Andrei Atkins MD CHEMISTRY ORDERABLES Final Result Performing Organization Address [facility]/ZIP Co de Phone Number [facility] [address] [place] [address] * EKG Rhythm Strip (12/21/2024 6:00 AM EDT) 12/21/2024 6:00 AM EDT Narrative [facility] - 12/21/2024 1:31 PM EDT us Unknown Provider Result ECG ORDERABLES Final Re sult Performing Organization Address [facility]/ZIP Co de Phone Number [facility] [address] [place] [address] * (ABNORMAL) Comprehensive Metabolic Panel w/ Reflex to MG (12/21/2024 5:33 AM EDT) Sodium 136 136 - 145 mmol/L 12/21/2024 5:33 AM EDT [facility] Potassium 3.8 3.7 - 5.3 mmol/L 12/21/2024 5:33 AM EDT [facility] Chloride 107 98 - 107 mmol/L 12/21/2024 5:33 AM EDT [facility] CO2 19(L) 20 - 31 mmol/L 12/21/2024 5:33 AM EDT [facility] Anion Gap 10 9 - 16 mmol/L 12/21/2024 5:33 AM [facility] Glucose 146(H) 74 - 99 mg/dL 12/21/2024 5:33 AM [facility] BUN 14 6 - 20 mg/dL 12/21/2024 5:33 AM [facility] Creatinine 0.4(L) 0.50 - 0.90 mg/dL 12/21/2024 5:33 AM [facility] Est, Glom Filt Rate >90 >60 mL/min/1.7 3m2 12/21/2024 5:33 AM [facility] Comment: These results are not intended for [...] following therapy that affects renal tubular secretion. BUN/Creatinine Ratio 35(H) 9 - 20 12/21/2024 5:33 AM [facility] Calcium 8.4(L) 8.6 - 10.4 mg/dL 12/21/2024 5:33 AM [facility] Total Protein 6.0(L) 6.6 - 8.7 g/dL 12/21/2024 5:33 AM [facility] Albumin 3.6 3.5 - 5.2 g/dL 12/21/2024 5:33 AM [facility] Albumin/Globulin Ratio 1.5 1.0 - 2.5 12/21/2024 5:33 AM [facility] Total Bilirubin 0.2 0.00 - 1.20 mg/dL 12/21/2024 5:33 AM [facility] Alkaline Phosphatase 103 35 - 104 U/L 12/21/2024 5:33 AM [facility] ALT 19 10 - 35 U/L 12/21/2024 5:33 AM [facility] AST 13 10 - 35 U/L 12/21/2024 5:33 AM EDT [facility] BLOOD SPECIMEN / Unknown 12/21/2024 5:33 AM EDT 12/21/2024 5:49 AM EDT Dipti Romero CASKET ASSEMBLER - SUBSCRIPTION CLERK CHEMISTRY ORDERABLES Fi nal Result [facility] [address] [phone] * (ABNORMAL) CBC auto differential (12/21/2024 5:33 AM EDT) Only the most recent of2 resultswithin the time period is included. WBC 5.2 3.5 - 11.3 k/uL 12/21/2024 5:33 AM [facility] RBC 4.55 3.95 - 5.11 m/uL 12/21/2024 5:33 AM [facility] Hemoglobin 13.6 11.9 - 15.1 g/dL 12/21/2024 5:33 AM [facility] Hematocrit 41.0 36.3 - 47.1 % 12/21/2024 5:33 AM [facility] MCV 90.1 82.6 - 102.9 fL 12/21/2024 5:33 AM [facility] MCH 29.9 25.2 - 33.5 pg 12/21/2024 5:33 AM [facility] MCHC 33.2 28.4 - 34.8 g/dL 12/21/2024 5:33 AM [facility] RDW 11.6(L) 11.8 - 14.4 % 12/21/2024 5:33 AM [facility] Platelets 262 138 - 453 k/uL 12/21/2024 5:33 AM [facility] MPV 9.6 8.1 - 13.5 fL 12/21/2024 5:33 AM [facility] NRBC Automated 0.0 0.0 per 100 WBC 12/21/2024 5:33 AM EDT [facility] Neutrophils % 40 36 - 65 % 12/21/2024 5:33 AM EDT [facility] Lymphocytes % 56(H) 24 - 43 % 12/21/2024 5:33 AM [facility] Monocytes % 2(L) 3 - 12 % 12/21/2024 5:33 AM EDT [facility] Eosinophils % 1 1 - 4 % 12/21/2024 5:33 AM EDT [facility] Immature Granulocytes % 0 0 % 12/21/2024 5:33 AM EDT [facility] Basophils % 1 0 - 2 % 12/21/2024 5:33 AM [facility] Neutrophils Absolute 2.08 1.50 - 8.10 k/uL 12/21/2024 5:33 AM EDT [facility] Lymphocytes Absolute 2.92 1.10 - 3.70 k/uL 12/21/2024 5:33 AM EDT [facility] Monocytes Absolute 0.10 0.10 - 1.20 k/uL 12/21/2024 5:33 AM EDT [facility] Eosinophils Absolute 0.05 0.00 - 0.44 k/uL 12/21/2024 5:33 AM [facility] Immature Granulocytes Absolute 0.00 0.00 - 0.30 k/uL 12/21/2024 5:33 AM EDT [facility] Basophils Absolute 0.05 0.0 - 0.2 k/uL 12/21/2024 5:33 AM [facility] Morphology Normal 12/21/2024 5:33 AM [facility] 12/21/2024 5:33 AM EDT 12/21/2024 5:49 AM EDT us Dipti Romero CASKET ASSEMBLER - SUBSCRIPTION CLERK HEMATOLOGY ORDERABLES F inal Result [facility] [address] [phone] * (ABNORMAL) Urinalysis with Microscopic (12/21/2024 12:03 AM EDT) Color, UA Yellow Yellow 12/21/2024 12:03 AM [facility] Turbidity UA Clear Clear 12/21/2024 12:03 AM [facility] Glucose, Ur 3+(A) NEGATIVE mg/dL 12/21/2024 12:03 AM [facility] Bilirubin, Urine NEGATIVE NEGATIVE 12/21/2024 12:03 AM [facility] Ketones, Urine 4+(A) NEGATIVE mg/dL 12/21/2024 12:03 AM [facility] Specific [place], UA <1.005(L) 1.010 - 1.020 12/21/2024 12:03 AM [facility] Urine Hgb NEGATIVE NEGATIVE 12/21/2024 12:03 AM [facility] pH, Urine 6.0 5.0 - 9.0 12/21/2024 12:03 AM [facility] Protein, UA NEGATIVE NEGATIVE mg/dL 12/21/2024 12:03 AM [facility] Urobilinogen, Urine Normal 0.0 - 1.0 EU/dL 12/21/2024 12:03 AM [facility] Nitrite, Urine NEGATIVE NEGATIVE 12/21/2024 12:03 AM [facility] Leukocyte Esterase, Urine NEGATIVE NEGATIVE 12/21/2024 12:03 AM [facility] WBC, UA None 0 - 5 /HPF 12/21/2024 12:03 AM [facility] RBC, UA None 0 - 2 /HPF 12/21/2024 12:03 AM [facility] Epithelial Cells, UA None 0 - 25 /HPF 12/21/2024 12:03 AM [facility] Yeast, UA PRESENCE NOTED(A) None 12/21/2024 12:03 AM EDT [facility] Urine URINE SPECIMEN / Unknown 12/21/2024 12:03 AM EDT 12/21/2024 12:07 AM EDT Dipti Romero CASKET ASSEMBLER - SUBSCRIPTION CLERK URINE ORDERABLES Final Result [facility] [address] [phone] * (ABNORMAL) BMP (12/20/2024 10:10 PM EDT) Sodium 134(L) 136 - 145 mmol/L 12/20/2024 10:10 PM EDT [facility] Potassium 4.0 3.7 - 5.3 mmol/L 12/20/2024 10:10 PM [facility] Chloride 102 98 - 107 mmol/L 12/20/2024 10:10 PM [facility] CO2 18(L) 20 - 31 mmol/L 12/20/2024 10:10 PM [facility] Anion Gap 14 9 - 16 mmol/L 12/20/2024 10:10 PM [facility] Glucose 370(H) 74 - 99 mg/dL 12/20/2024 10:10 PM [facility] BUN 16 6 - 20 mg/dL 12/20/2024 10:10 PM [facility] Creatinine 0.6 0.50 - 0.90 mg/dL 12/20/2024 10:10 PM [facility] Est, Glom Filt Rate >90 >60 mL/min/1.7 3m2 12/20/2024 10:10 PM [facility] Comment: These results are not intended for [...] following therapy that affects renal tubular secretion. BUN/Creatinine Ratio 27(H) 9 - 20 12/20/2024 10:10 PM EDT [facility] Calcium 7.9(L) 8.6 - 10.4 mg/dL 12/20/2024 10:10 PM EDT [facility] Blood BLOOD SPECIMEN / Unknown 12/20/2024 10:10 PM EDT 12/20/2024 10:13 PM EDT us Rikki Oscar MD CHEMISTRY ORDERABLES Final Resul t [facility] [address] [phone] * CTA HEAD NECK W CONTRAST (12/20/2024 8:39 PM EDT) Anatomical Region Laterality Modality Neck, Head, Vascular Computed To mography 12/20/2024 9:35 PM EDT Impressions 12/20/2024 9:38 PM EDT 1. No evidence of arterial stenosis or occlusion in the head or neck. 2. Diffuse goiter. Narrative 12/20/2024 9:38 PM EDT EXAMINATION: CTA OF THE HEAD AND NECK [...] not a suspected or confirmed emergency medical condition->Emergency Medical Condition (MA) FINDINGS: CTA NECK: AORTIC [...] fluid collection. The alexander-white differentiation is maintained. Procedure Note Amaury Khan MD - 12/20/2024 EXAMINATION: CTA OF THE HEAD AND NECK WITH CONTRAST 12/20/2024 6:34 pm: TECHNIQUE: CTA of the head and neck was performed with the administration ofintravenous contrast. Multiplanar reformatted images are provided for review. MIPimages are provided for review. Stenosis of the internal carotid arteriesmeasured using NASCET criteria. Automated exposure control, iterativereconstruction, and/or weight based adjustment of the mA/kV was utilized to reduce the radiation dose to as low as reasonably achievable. COMPARISON: None. HISTORY: ORDERING SYSTEM PROVIDED HISTORY: Concern for TIA TECHNOLOGIST PROVIDED HISTORY: Concern for TIA Decision Support Exception - unselect if not a suspected or confirmed emergency medical condition->Emergency Medical Condition (MA) FINDINGS: CTA NECK: AORTIC ARCH/ARCH VESSELS: No dissection or arterial injury. Nosignificant stenosis of the brachiocephalic or subclavian arteries. CAROTID ARTERIES: No dissection, arterial injury, or hemodynamically significant stenosis by NASCET criteria. VERTEBRAL ARTERIES: No dissection, arterial injury, or significantstenosis. SOFT TISSUES: The lung apices are clear. No cervical or superiormediastinal lymphadenopathy. The larynx and pharynx are unremarkable. No acute abnormality of the salivary and thyroid glands. There is diffuseenlargement of thyroid gland which is hypervascular. BONES: No acute osseous abnormality. CTA HEAD: ANTERIOR CIRCULATION: No significant stenosis of the intracranialinternal carotid, anterior cerebral, or middle cerebral arteries. No aneurysm. POSTERIOR CIRCULATION: No significant stenosis of the basilar orposterior cerebral arteries. No aneurysm. OTHER: No dural venous sinus thrombosis on this non-dedicated study. BRAIN: No mass effect or midline shift. No extra-axial fluid collection.The alexander-white differentiation is maintained. IMPRESSION: 1. No evidence of arterial stenosis or occlusion in the head or neck. 2. Diffuse goiter. Rikki Oscar MD IMG CT ORDERABLES Final Result * CT Head WO Contrast (12/20/2024 8:26 PM EDT) Anatomical Region Laterality Modality Head Computed Tomogra phy 12/20/2024 8:59 PM EDT Impressions 12/20/2024 9:00 PM EDT No acute intracranial abnormality. Narrative 12/20/2024 9:00 PM EDT EXAMINATION: CT OF THE HEAD WITHOUT CONTRAST [...] not a suspected or confirmed emergency medical condition->Emergency Medical Condition (MA) FINDINGS: BRAIN/VENTRICLES: There is no acute intracranial hemorrhage, mass effect or midline shift. No abnormal extra-axial fluid collection. The alexanedr-white differentiation is maintained without evidence of an acute infarct. There is no evidence of hydrocephalus. ORBITS: The visualized portion of the orbits demonstrate no acute abnormality. SINUSES: The visualized paranasal sinuses and mastoid air cells demonstrate no acute abnormality. SOFT TISSUES/SKULL: No acute abnormality of the visualized skull or soft tissues. Procedure Note Tavo Almonte MD - 12/20/2024 EXAMINATION: CT OF THE HEAD WITHOUT CONTRAST 12/20/2024 8:20 pm TECHNIQUE: CT of the head was performed without the administration of intravenous contrast. Automated exposure control, iterative reconstruction, and/orweight based adjustment of the mA/kV was utilized to reduce the radiation dose toas low as reasonably achievable. COMPARISON: None. HISTORY: ORDERING SYSTEM PROVIDED HISTORY: concern for tia TECHNOLOGIST PROVIDED HISTORY: concern for tia Decision Support Exception - unselect if not a suspected or confirmed emergency medical condition->Emergency Medical Condition (MA) FINDINGS: BRAIN/VENTRICLES: There is no acute intracranial hemorrhage, mass effector midline shift. No abnormal extra-axial fluid collection. Thegray-white differentiation is maintained without evidence of an acute infarct. Thereis no evidence of hydrocephalus. ORBITS: The visualized portion of the orbits demonstrate no acuteabnormality. SINUSES: The visualized paranasal sinuses and mastoid air cellsdemonstrate no acute abnormality. SOFT TISSUES/SKULL: No acute abnormality of the visualized skull orsoft tissues. IMPRESSION: No acute intracranial abnormality. us Rikki Oscar MD IMG CT ORDERABLES Final Result * EKG 12 Lead (Chest Pain) (12/20/2024 7:50 PM EDT) [facility] Ventricular Rate 88 BPM [facility] Atrial Rate 88 BPM [facility] P-R Interval 138 ms [facility] QRS Duration 82 ms [facility] Q-T Interval 392 ms [facility] QTc Calculation (Bazett) 474 ms [facility] P [place] 51 degrees [facility] R [place] 107 degrees [facility] T [place] 55 degrees [facility] 12/20/2024 7:50 PM EDT Narrative [facility] - 12/21/2024 8:47 AM EDT Normal sinus rhythm Rightward axis Borderline ECG ECG not diagnostic for Acute Coronary Syndrome; consider clinical findings When compared with ECG of 16-Oct-2024 20:05, QRS axis Shifted right Confirmed by Mode Coffman ([id number]) on 12/21/2024 8:47:09 AM Procedure Note Mode Coffman MD - 12/21/2024 Normal sinus rhythm Rightward axis Borderline ECG ECG not diagnostic for Acute Coronary Syndrome; consider clinicalfindings When compared with ECG of 16-Oct-2024 20:05, QRS axis Shifted right Confirmed by Mode Coffman ([id number]) on 12/21/2024 8:47:09 AM us Rikki Oscar MD ECG ORDERABLES Final Result [facility] * (ABNORMAL) Blood Gas, Venous (12/20/2024 7:49 PM EDT) pH, Erik 7.361 7.32 - 7.42 12/20/2024 7:49 PM EDT [facility] pCO2, Erik 32.4(L) 39 - 55 mm Hg 12/20/2024 7:49 PM EDT [facility] PO2, Erik 48.2 30.0 - 50.0 mm Hg 12/20/2024 7:49 PM [facility] HCO3, Venous 17.9(L) 24.0 - 30.0 mmol/L 12/20/2024 7:49 PM [facility] Negative Base Excess, Erik 6.3(H) 0.0 - 2.0 mmol/L 12/20/2024 7:49 PM [facility] O2 Sat, Erik 83.0 60.0 - 85.0 % 12/20/2024 7:49 PM [facility] Pt Temp 37.0 12/20/2024 7:49 PM [facility] pH, Erik, Temp Adj 7.361 7.320 - 7.420 12/20/2024 7:49 PM [facility] pCO2, Erik, Temp Adj 32.4(L) 39.0 - 55.0 mmHg 12/20/2024 7:49 PM [facility] pO2, Erik, Temp Adj 48.2 30.0 - 50.0 mmHg 12/20/2024 7:49 PM [facility] O2 Device/Flow/% ROOM AIR 12/20/2024 7:49 PM [facility] Allan Test NOT APPLICABLE 12/20/2024 7:49 PM [facility] FIO2 21 12/20/2024 7:49 PM [facility] 12/20/2024 7:49 PM EDT 12/20/2024 7:51 PM EDT Rikki Oscar MD CHEMISTRY ORDERABLES Final Resul t Performing Organization Address [facility]/ZIP Co de Phone Number [facility] [address] [place] [address] * (ABNORMAL) Beta-Hydroxybutyrate (12/20/2024 7:40 PM EDT) Beta-Hydroxybu tyrate 3.86(H) 0.02 - 0.27 mmol/L 12/20/2024 7:40 PM EDT [facility] Blood BLOOD SPECIMEN / Unknown 12/20/2024 7:40 PM EDT 12/20/2024 7:48 PM EDT Rikki Oscar MD CHEMISTRY ORDERABLES Final Resul t Performing Organization Address [facility] Co de Phone Number [facility] [address] [place] [address] * Troponin (12/20/2024 7:40 PM EDT) Troponin, High Sensitivity <6 0 - 14 ng/L 12/20/2024 7:40 PM EDT [facility] Comment:High Sensitivity Tro ponin values cannot be compared with other Troponin methodologies. Blood BLOOD SPECIMEN / Unknown 12/20/2024 7:40 PM EDT 12/20/2024 7:47 PM EDT Rikki Oscar MD CHEMISTRY ORDERABLES Final Resul t Performing Organization Address [facility]/ZIP Co de Phone Number [facility] [address] [place] [address] * Magnesium (12/20/2024 7:40 PM EDT) Magnesium 2.0 1.6 - 2.6 mg/dL 12/20/2024 7:40 PM EDT [facility] Blood BLOOD SPECIMEN / Unknown 12/20/2024 7:40 PM EDT 12/20/2024 7:47 PM EDT us Rikki Oscar MD CHEMISTRY ORDERABLES Final Resul t [facility] [address] [place] [id number], [facility] [phone] * (ABNORMAL) CMP (12/20/2024 7:40 PM EDT) Sodium 130(L) 136 - 145 mmol/L 12/20/2024 7:40 PM EDT [facility] Potassium 4.8 3.7 - 5.3 mmol/L 12/20/2024 7:40 PM EDT [facility] Comment: Specimen hemolysis has exceeded the interference as defined by Kat. Value may be falsely increased. Suggest recollection if clinically indicated. Chloride 92(L) 98 - 107 mmol/L 12/20/2024 7:40 [address]T [facility] CO2 19(L) 20 - 31 mmol/L 12/20/2024 7:40 PM EDT [facility] Anion Gap 19(H) 9 - 16 mmol/L 12/20/2024 7:40 [address]T [facility] Glucose 516(HH) 74 - 99 mg/dL 12/20/2024 7:40 [address]T [facility] BUN 19 6 - 20 mg/dL 12/20/2024 7:40 [address]T [facility] Creatinine 0.6 0.50 - 0.90 mg/dL 12/20/2024 7:40 [address]T [facility] Est, Glom Filt Rate >90 >60 mL/min/1.7 3m2 12/20/2024 7:40 [address]T [facility] Comment: These results are not intended for [...] following therapy that affects renal tubular secretion. BUN/Creatinine Ratio 32(H) 9 - 20 12/20/2024 7:40 PM EDT [facility] Calcium 9.2 8.6 - 10.4 mg/dL 12/20/2024 7:[address] [facility] Total Protein 7.2 6.6 - 8.7 g/dL 12/20/2024 7:[address] [facility] Albumin 4.2 3.5 - 5.2 g/dL 12/20/2024 7:[address] [facility] Albumin/Globulin Ratio 1.4 1.0 - 2.5 12/20/2024 7:[address] [facility] Total Bilirubin 0.3 0.00 - 1.20 mg/dL 12/20/2024 7:40 [address]T [facility] Alkaline Phosphatase 148(H) 35 - 104 U/L 12/20/2024 7:40 PM EDT [facility] ALT 27 10 - 35 U/L 12/20/2024 7:40 PM EDT [facility] AST 19 10 - 35 U/L 12/20/2024 7:40 [address]T [facility] Comment: Specimen hemolysis has exceeded the interference as defined by Kat. Value may be falsely increased. Suggest recollection if clinically indicated. Blood BLOOD SPECIMEN / Unknown 12/20/2024 7:40 PM EDT 12/20/2024 7:47 PM EDT us Rikki Oscar MD CHEMISTRY ORDERABLES Final Resul t [facility] [address] [phone] * US PELVIS COMPLETE NON-OB TRANSABD/TRANSVAG W DOPPLER (12/12/2024 1:12 PM EDT) Anatomical Region Laterality Modality Pelvis Ultrasound 12/18/2024 9:19 AM EDT Impressions 12/18/2024 9:23 AM EDT 2.4 cm uterine fibroid. Unremarkable left ovary. Right ovary was not visualized. Narrative 12/18/2024 9:23 AM EDT EXAMINATION: TRANSABDOMINAL AND TRANSVAGINAL ULTRASOUND OF THE [...] Free Fluid: Trace free fluid, likely physiologic Procedure Note Trino Cantor MD - 12/18/2024 EXAMINATION: TRANSABDOMINAL AND TRANSVAGINAL ULTRASOUND OF THE PELVIS WITH COLORDOPPLER FLOW EVALUATION 12/12/2024 TECHNIQUE: Transabdominal and transvaginal pelvic Duplex ultrasound usingB-mode/alexander scaled imaging, Doppler spectral analysis and color flow Doppler wasobtained. COMPARISON: None HISTORY: ORDERING SYSTEM PROVIDED HISTORY: History of uterine fibroid FINDINGS: Measurements: Uterus: 7.1 x 4.6 x 4.1 cm Endometrial stripe: 2.3 mm Right Ovary:Not measured. Left Ovary: 2.6 x 1.1 x 1.7 cm Ultrasound Findings: Uterus: Uterus has a slightly heterogeneous myometrial echotexture.Small heterogeneous hypoechoic area in the right posterior fundal regionmeasuring up to 2.4 x 1.9 x 2.3 cm is most compatible with a fibroid. Endometrial stripe: Endometrial stripe is within normal limits. Right Ovary: Right ovary was not visualized. No definite adnexal massesare seen on the images obtained. Left Ovary: Left ovary is within normal limits. There is normalarterial and venous Doppler flow. Free Fluid: Trace free fluid, likely physiologic IMPRESSION: 2.4 cm uterine fibroid. Unremarkable left ovary. Right ovary was not visualized. us Jessica Pete CASKET ASSEMBLER - QUALITY SYSTEM MANAGER IMG US ORDERABLES Final R esult * Ambulatory referral to Neurology (12/12/2024 12:25 PM EDT) us Shelley Clancy MD OUTPATIENT REFERRAL ORDERABLES Final Result * US THYROID (12/08/2024 3:42 PM EDT) Anatomical Region Laterality Modality Head Ultrasound 12/08/2024 6:34 PM EDT Impressions 12/08/2024 6:37 PM EDT 1. 16 mm TI-RADS 3 nodule left [...] more than four nodules should be followed. Narrative 12/08/2024 6:37 PM EDT EXAMINATION: THYROID ULTRASOUND 12/08/2024 COMPARISON: None. TECHNIQUE: Real-time and color flow sonographic images were obtained using a linear transducer. [id number]. HISTORY: F 49 y/o old. ORDERING SYSTEM [...] (2) 2. Echogenicity: Isoechoic (1) 3. Shape: [id number] (0) 4. Margins: Ill-defined (0) 5. Echogenic foci: None (0) ACR TI-RADS total points: 3 ACR TI-RADS risk category: TR3 Soft tissues: No visualized lymphadenopathy Procedure Note Brandt Kirk, DO - 12/08/2024 EXAMINATION: THYROID ULTRASOUND 12/08/2024 COMPARISON: None. TECHNIQUE: Real-time and color flow sonographic images were obtained using a linear transducer. [id number]. HISTORY: F 49 y/o old. ORDERING SYSTEM PROVIDED HISTORY: Thyroid nodule FINDINGS: Right thyroid lobe: 6.9 x 3.3 x 3.1cm Left thyroid lobe: 6.6 x 3.3 x 3.1cm Isthmus: 1.5cm Echotexture: Heterogeneous Vascularity: Normal Thyroid Nodules: Subcentimeter TI-RADS 3 and 4 nodules both thyroid lobesfor which no follow-up recommended per current classification. NODULE: 1 Size: 16 x 12 x 11 mm Location: Inferior left thyroid 1. Composition: Solid (2) 2. Echogenicity: Isoechoic (1) 3. Shape: [id number] (0) 4. Margins: Ill-defined (0) 5. Echogenic foci: None (0) ACR TI-RADS total points: 3 ACR TI-RADS risk category: TR3 Soft tissues: No visualized lymphadenopathy IMPRESSION: 1. 16 mm TI-RADS 3 nodule left thyroid lobe for which follow-up ultrasoundin 1 year recommended. 2. Subcentimeter TI-RADS 3 and 4 nodules both thyroid lobes. Nofollow-up recommended per current classification. ACR TI-RADS recommendations: TR5 (>= 7 points): FNA if >= 1 cm; follow-up if 0.5-0.9 cm in 1, 2, 3,4, and 5 years TR4 (4-6 points): FNA if >= 1.5 cm; follow-up if 1.0-1.4 cm in 1, 2, 3,and 5 years TR3 (3 points): FNA if >= 2.5 cm; follow-up if 1.5-2.4 cm in 1, 3, and5 years TR2 (2 points): No FNA or follow-up TR1 (0 points): No FNA or follow-up ACR TI-RADS recommends that no more than two nodules with the highestACR TI-RADS point total should be biopsied and no more than four nodulesshould be followed. us Shelley Clancy MD IMG US ORDERABLES Final Result * XR KNEE LEFT (1-2 VIEWS) (12/08/2024 3:01 PM EDT) Anatomical Region Laterality Modality Thigh, Knee, Leg Computed Radiog hammad 12/10/2024 10:2 7 PM EDT Impressions 12/10/2024 10:27 PM EDT 1. No acute findings. 2. Mild loss of joint space in the medial and lateral compartments compatible with degenerative change. Narrative 12/10/2024 10:27 PM EDT EXAM: 2 VIEWS XRAY OF THE LEFT KNEE 12/08/2024 03:01:50 PM COMPARISON: None available. CLINICAL HISTORY: Acute pain of left knee. FINDINGS: BONES AND JOINTS: No acute fracture. No focal osseous lesion. No joint dislocation. No significant joint effusion. Mild loss of joint space in the medial and lateral compartments compatible with degenerative change. SOFT TISSUES: The soft tissues are unremarkable. Procedure Note Emiliano Tran MD - 12/10/2024 EXAM: 2 VIEWS XRAY OF THE LEFT KNEE 12/08/2024 03:01:50 PM COMPARISON: None available. CLINICAL HISTORY: Acute pain of left knee. FINDINGS: BONES AND JOINTS: No acute fracture. No focal osseous lesion. No joint dislocation. Nosignificant joint effusion. Mild loss of joint space in the medial andlateral compartments compatible with degenerative change. SOFT TISSUES: The soft tissues are unremarkable. IMPRESSION: 1. No acute findings. 2. Mild loss of joint space in the medial and lateral compartmentscompatible with degenerative change. us Shelley Clancy MD IMG DIAGNOSTIC IMAGING ORDERABL ES Final Result * MRI LUMBAR SPINE WO CONTRAST (12/08/2024 2:33 PM EDT) Anatomical Region Laterality Modality T-spine, L-spine, Pelvis Magneti c Resonance 12/13/2024 12:5 5 PM EDT Impressions 12/13/2024 12:57 PM EDT Degenerative changes of the lower lumbar spine as detailed above worst at L5-S1. Narrative 12/13/2024 12:57 PM EDT EXAMINATION: MRI OF THE LUMBAR SPINE WITHOUT [...] Moderate left and mild right foraminal stenosis. Procedure Note Chas Vásquez MD - 12/13/2024 EXAMINATION: MRI OF THE LUMBAR SPINE WITHOUT CONTRAST, 12/08/2024 2:33 pm TECHNIQUE: Multiplanar multisequence MRI of the lumbar spine was performed withoutthe administration of intravenous contrast. COMPARISON: None. HISTORY: ORDERING SYSTEM PROVIDED HISTORY: Lumbar radiculopathy FINDINGS: BONES/ALIGNMENT: There is normal alignment of the spine. The vertebralbody heights are maintained. The bone marrow signal appears unremarkable.Disc desiccation is seen from L4 through S1. SPINAL CORD: The conus terminates normally. SOFT TISSUES: No paraspinal mass identified. L1-L2: There is no significant disc herniation, spinal canal stenosis or neural foraminal narrowing. L2-L3: Bilateral facet hypertrophy. L3-L4: There is no significant disc herniation, spinal canal stenosis or neural foraminal narrowing. L4-L5: Posterior annular fissure. Early facet hypertrophy. Minimaldisc bulge. Mild spinal canal stenosis. Mild bilateral foraminal stenosis. L5-S1: Mild loss of disc space height. Central disc extrusion whichextends posterior to the S1 vertebral body. Mild spinal canal stenosis.Posterior annular fissure. Moderate left and mild right foraminal stenosis. IMPRESSION: Degenerative changes of the lower lumbar spine as detailed above worstat L5-S1. Shelley Clancy MD IMG MRI ORDERABLES Final Result * T. pallidum Ab (12/08/2024 2:32 PM EDT) T. pallidum, IgG NONREACTIVE NONREACTIVE 12/08/2024 2:32 PM EDT [facility] Comment: T. pallidum antibodies are not detected. There is no serological evidence of infection with T. pallidum (early primary syphilis cannot be excluded). Retest in 2-4 weeks if syphilis is clinically suspect. 12/08/2024 2:32 PM EDT 12/08/2024 2:33 PM EDT Unknown Provider Result IMMUNOLOGY ORDERABLES Fi nal Result [facility] [address] [place] [address], [facility] [phone] [facility] [address] [place], [place] [id number], [facility] [phone] * Hepatitis Panel, Acute (12/08/2024 2:32 PM EDT) Hepatitis B Surface Ag NONREACTIVE NONREACTIVE 12/08/2024 2:32 PM EDT [facility] Hepatitis C Ab NONREACTIVE NONREACTIVE 12/09/19 2:32 PM EDT [facility] Comment: The hepatitis C procedure used in [...] recommended by ordering HCV RNA by PCR. Hep B Core Ab, IgM NONREACTIVE NONREACTIVE 12/2024 2:32 PM EDT [facility] Hep A IgM NONREACTIVE NONREACTIVE 12/08/2024 2:32 PM EDT [facility] 12/08/2024 2:32 PM EDT 12/08/2024 2:33 PM EDT us Unknown Provider Result IMMUNOLOGY ORDERABLES Fi nal Result Performing Organization Address [facility] Co de Phone Number [facility] [address] [place] [address] [facility] [address] [place] [address] * HIV Screen (12/08/2024 2:32 PM EDT) [facility] HIV Ag/Ab NONREACTIVE NONREACTIVE 12/08/2024 2:32 PM EDT [facility] Comment: No laboratory evidence of HIV infection. If acute HIV infection is suspected, consider testing for HIV-1 RNA. 12/08/2024 2:32 PM EDT 12/08/2024 2:33 PM EDT us Unknown Provider Result IMMUNOLOGY ORDERABLES Fi nal Result Performing Organization Address [facility] Co de Phone Number [facility] [address] [place] [address] [facility] [email or web address] [address] [place] [address] * (ABNORMAL) Albumin/Creatinine Ratio, Urine (11/14/2024 4:26 PM EDT) [facility] Albumin Urine <12 0 - 20 mg/L 11/14/2024 4:26 PM EDT [facility] Creatinine, Ur 15.9(L) 28.0 - 217.0 mg/dL 11/14/2024 4:26 PM EDT [facility] Comment:Reference range defi radha for 1st morning urine [employer]/Sports Management Professor. Ratio Can not be calculated 0.0 - 25.0 mcg/mg creat 11/14/2024 4:26 PM EDT [facility] 11/14/2024 4:26 PM EDT 11/14/2024 4:29 PM EDT us Unknown Provider Result URINE ORDERABLES Final R esult Performing Organization Address [facility]/ZIP Co de Phone Number [facility] [address] [place] [address] [email or web address] [address] [place] [address], [facility] [phone] * (ABNORMAL) Hemoglobin A1C (10/17/2024 5:30 AM EDT) Hemoglobin A1C 14.3(H) 4.0 - 6.0 % 10/17/2024 5:30 AM EDT [facility] Estimated Avg Glucose 364 mg/dL 10/17/2024 5:30 AM EDT [facility] Comment: The ADA and AACC recommend providing the estimated average glucose result to permit better patient understanding of their HBA1c result. Blood BLOOD SPECIMEN / Unknown 10/17/2024 5:30 AM EDT 10/17/2024 5:57 AM EDT us Dipti Romero CASKET ASSEMBLER - SUBSCRIPTION CLERK CHEMISTRY ORDERABLES Fi nal Result Performing Organization Address City/[facility]/ZIP Co de Phone Number [facility] [address] [place] [address], [facility] [phone] 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 ACP-Advance Directive 12/21/2024 1:07 PM D POAHC and Living Will 12-21-2024 * Full Code (Latest Code Status on File) Date Activated Date Inactivated Comments 12/21/2024 1:16 AM 12/21/2024 3:53 PM * Full Code Date Activated Date Inactivated Comments 10/16/2024 10:49 PM 10/18/2024 4:14 PM Healthcare Agents on File Name Relationship Healthcare Agent Relationshi p Communication Champ Hidalgo Child Primary Decision Maker Joanie Hidalgo Child Secondary Decision Maker Care Teams Drip Pumper Relationship Specialty Start Date End Date Shelley Clancy MD [address] [place] [id number] PCP - General 12/21/24
--- OUTSIDE RECORDS SUMMARY | 2025-03-08 00:10 | XMS_ITS | Encounter Summary ---
Author Organization [employer] Sys tem Address [facility]-[id number] [address] [place] [address] Care Team Providers Care Student Counsellor Name Role Phone Julieth Rosa MD Primary Care Provider [phone] Encounter Details Date Type Department Care Team (Late st Contact Info) Description 02/09/2025 Results Follow-Up [facility] Obstetrics/Gynecolog y [address] [place] [address] Jessica Pete, FOOD PROCESSOR-ROLLING CHAIR PUSHER [address] [place], [place] [id number] Progesterone, Estradiol, Prolactin, Additional followed-up results: 6 Social History Tobacco Use Types Packs/Day Years [...] documented as of this encounter Care Teams Student Counsellor Relationship Specialty Start Date End Date Julieth Rosa MD [address] [facility] [address] [facility] [place] [address] PCP - General Family Medicine 01/10/25 documented as of this encounter
--- OUTSIDE RECORDS SUMMARY | 2025-03-08 00:10 | XMS_ITS | Encounter Summary ---
Author Organization [employer] Sys tem Address [facility][id number] [address] [place] [address] Care Team Providers Care Burrer Operator Name Role Phone Julieth Rosa MD Primary Care Provider [phone] Encounter Details Date Type Department Care Team (Late st Contact Info) Description 10/16/2020 Telephone [facility] Family Medicine [address] [place] [place] [address] [place] [id number] Christal Crarera CMA Social History Tobacco Use Types Packs/Day Years [...] Purpose and direction in life Unknown Comments Unknown Sex and Gender Information Value Date Recorded Sex Assigned at Not on file Legal Sex Female 8:32 AM EDT Gender Identity Not on file Sexual Orientation Not on file COVID-19 Exposure Response Date Recorded In the last month, have you been in contact with someone who was confirmed or suspected to have Coronavirus / COVID-19? No / Unsure 10/16/2020 4:27 PM EDT documented as of this encounter Miscellaneous Notes * Telephone Encounter - Christal Carrera CMA - 10/16/2020 8:46 AM EDT ----- Message from Jovana Del Rio APRN-EDUCATION RESEARCH ANALYST sent at 10/15/2020 6:20 PM EDT ----- New patient seen yesterday, she completed her labs. Known hypothyroidism but has not taken meds for3 years. Can you let her know her TSH was high and T4 low= hypothyroidism. [facility]. I will review with her next week * Telephone Encounter - Christal Carrera CMA - 10/16/2020 8:46 AM EDT Left message for pt to callback * Telephone Encounter - Christal Carrera CMA - 10/16/2020 8:46 AM EDT Pt notified. documented in this encounter Plan of Treatment Not on file documented as of this encounter Visit Diagnoses Not on filedocumented in this encounter Additional Health Concerns Assessment Noted Time PHQ-9 Depression Total Score: 0 10/15/19 21 4:04 PM EDT A Body Mass Index follow-up plan has been documented for the patient 10/15/2020 6:44 AM EDT documented as of this encounter Care Teams Burrer Operator Relationship Specialty Start Date End Date Julieth Rosa MD [address] [facility] [place] [address] PCP - General Family Medicine 01/10/25 documented as of this encounter
--- OUTSIDE RECORDS SUMMARY | 2025-03-08 00:11 | XMS_ITS | Encounter Summary ---
Author Organization [employer] Sys tem Address [facility][id number] [address] [place] [address] Care Team Providers Care Deodorizer Operator Name Role Phone Julieth Rosa MD Primary Care Provider [phone] Encounter Details Date Type Department Care Team (Late st Contact Info) Description 10/08/2023 Telephone [facility] Internal Medicine - Family Medicine [address] [place] [address] Vida Anguiano CMA Social History Tobacco Use Types Packs/Day Years Used Date Smoking Tobacco: Every Day Cigarettes 1 20 Smokeless Tobacco: Never Alcohol Use Standard Drinks/Week Comments Yes 12 (1 standard drink = 0.6 oz pu re alcohol) PHQ-2 Answer Date Recorded Total Score 0 09/01/2023 Childcare Answer Date Recorded Childcare Unknown 10/08/2020 Employment Answer Date Recorded Employment Unknown 10/08/2020 Hunger Screening Answer Date Recorded Within the past 12 months we worried whether our food would run out before we got money to buy more. Never True 10/08/2023 Within the past 12 months th e food we bought just didn't last and we didn't have money to get more. Never True 10/08/2023 Purpose - Life Answer Date Recorded Purpose and direction in life Unknown Comments No Sex and Gender Information Value Date Recorded Sex Assigned at Not on file Legal Sex Female 8:32 AM EDT Gender Identity Not on file Sexual Orientation Not on file documented as of this encounter Miscellaneous Notes * Telephone Encounter - Vida Anguiano CMA - 10/08/2023 12:15 PM EDT Pt called said her dermatolgist gave her a RX and wanted to know if her liver functions were ok to take RX * Telephone Encounter - SVETA Doe - 10/08/2023 12:15 PM EDT Her LFTs were normal in Aug. Please forward her CMP to dermatology if they need it. * Telephone Encounter - Linh Perez CMA - 10/08/2023 12:15 PM EDT Faxed these results to Dr. Pérez at [phone] documented in this encounter Plan of Treatment Not on file documented as of this encounter Visit Diagnoses Not on filedocumented in this encounter Additional Health Concerns Assessment Noted Time PHQ-9 Depression Total Score: 0 09/01/19 24 8:21 AM EST A Body Mass Index follow-up plan has been documented for the patient 10/31/2020 6:54 PM EDT documented as of this encounter Care Teams Deodorizer Operator Relationship Specialty Start Date End Date Julieth Rosa MD [address] [facility] [place] [address] PCP - General Family Medicine 01/10/25 documented as of this encounter
--- OUTSIDE RECORDS SUMMARY | 2025-03-08 00:11 | XMS_ITS | Encounter Summary ---
Author Organization [employer] Sys [employer] Address [facility] [place]-[id number] [address] [place] [address] Care Team Providers Care Saw Runner Name Role Phone Julieth Rosa MD Primary Care Provider [phone] Encounter Details Date Type Department Care Team (Late st Contact Info) Description 11/01/2023 Telephone [facility] Internal Medicine - Family Medicine [address] [place] [address] Vida Anguiano CMA Social History [...] got money to buy more. Never True 10/13/2023 Within the past 12 months th e food we bought just didn't last and we didn't have money to get more. Never True 10/13/2023 Purpose - Life Answer Date Recorded Purpose and direction in life Unknown Comments No Sex and Gender Information Value Date Recorded Sex Assigned at Not on file Legal Sex Female 8:32 AM EDT Gender Identity Not on file Sexual Orientation Not on file documented as of this encounter Miscellaneous Notes * Telephone Encounter - Vida Anguiano CMA - 11/01/2023 10:51 AM EDT ----- Message from RUDDY DoeROCK LOADER sent at 11/01/2023 10:43 AM EDT ----- Her thyroid is enlarged and concern for thyroiditis. Would recommend she sees endocrine specialist and at their discretion, possibly ENT. Does she know when she will have health insurance with her new job? * Telephone Encounter - Vida Anguiano CMA - 11/01/2023 10:51 AM EDT Called pt left vm to cb documented in this encounter Plan of Treatment Not on file documented as of this encounter Visit Diagnoses Not on filedocumented in this encounter Additional Health Concerns Assessment Noted Time PHQ-9 Depression Total Score: 0 10/13/19 24 9:28 AM EDT A Body Mass Index follow-up plan has been documented for the patient 10/31/2020 6:54 PM EDT documented as of this encounter Care Teams Saw Runner Relationship Specialty Start Date End Date Julieth Rosa MD [address] [facility] [place] [address] PCP - General Family Medicine 01/10/25 documented as of this encounter
--- OUTSIDE RECORDS SUMMARY | 2025-03-08 00:11 | XMS_ITS | Encounter Summary ---
Author Organization [facility] Address [facility] [id number] [address] [place] [address] Care Team Providers Care Water Pump Assembler Name Role Phone Julieth Rosa MD Primary Care Provider [phone] Encounter Details Date Type Department Care Team (Late st Contact Info) Description 11/16/2023 Orders Only [facility] Internal Medicine - Family Medicine [address] [place] [address] External, Scanning Provider Social History Tobacco Use Types Packs/Day Years [...] Procedure Name Priority Date/Time Associated Diagnosis Comments ECG 12-LEAD Routine 10/26/2023 4:[address] NECK SOFT TISSUE W CONT Routine 10/26/2023 4:25 PM EDT documented in this encounter Results * ECG 12 lead (10/26/2023 4:29 PM EDT) us Scanning Provider External ECG ORDERABLES Final Result MANUALLY TRANSCRIBED RESULTS * CT neck soft tissue with contrast (10/26/2023 4:25 PM EDT) Anatomical Region Laterality Modality Neuro, Neck, Neuro Covera N/A Comput ed Tomography us Scanning Provider External IMG CT ORDERABLES Fin al Result documented in this encounter Visit Diagnoses Not on filedocumented in this encounter Additional Health Concerns Assessment Noted Time PHQ-9 Depression Total Score: 0 10/13/19 24 9:28 AM EDT A Body Mass Index follow-up plan has been documented for the patient 10/31/2020 6:54 PM EDT documented as of this encounter Care Teams Water Pump Assembler Relationship Specialty Start Date End Date Julieth Rosa MD [address] [place] [address] PCP - General Family Medicine 01/10/25 documented as of this encounter
--- OUTSIDE RECORDS SUMMARY | 2025-03-08 00:11 | XMS_ITS | Encounter Summary ---
Author Organization [facility] Address [id number] [address] [place] [address] Care Team Providers Care Dining Services Director Name Role Phone Julieth Rosa MD Primary Care Provider [phone] Encounter Details Date Type Department Care Team (Late st Contact Info) Description 11/11/2023 Orders Only [facility] Internal Medicine - Family Medicine [address] [place] [address] Alicia Wolfe, JIGGER ARTISAN-LIVESTOCK BREEDER [address] [place] [address] Social History Tobacco Use Types Packs/Day Years [...] Procedure Name Priority Date/Time Associated Diagnosis Comments CT NECK SOFT TISSUE W CONT Routine 10/26/2023 4:[address] FACIAL BONES WO CONT Routine 10/26/2023 4:[address] BRAIN W WO CONT Routine 10/26/2023 4: 49 PM EDT documented in this encounter Results * CT neck soft tissue with contrast (10/26/2023 4:49 PM EDT) Anatomical Region Laterality Modality Neuro, Neck, Neuro Covera N/A Comput ed Tomography us Scanning Provider External IMG CT ORDERABLES Fin al Result * CT facial bones without contrast (10/26/2023 4:49 PM EDT) Anatomical Region Laterality Modality Neuro, Face, Neuro Covera N/A Comput ed Tomography us Scanning Provider External IMG CT ORDERABLES Fin al Result * CT brain with and without contrast (10/26/2023 4:49 PM EDT) Anatomical Region Laterality Modality Neuro, Head, Head and Neck, Neuro Covera N/A Computed Tomography us Scanning Provider External IMG CT ORDERABLES Fin al Result documented in this encounter Visit Diagnoses Not on filedocumented in this encounter Additional Health Concerns Assessment Noted Time PHQ-9 Depression Total Score: 0 10/13/19 24 9:28 AM EDT A Body Mass Index follow-up plan has been documented for the patient 10/31/2020 6:54 PM EDT documented as of this encounter Care Teams Dining Services Director Relationship Specialty Start Date End Date Jluieth Rosa MD [address] [place] [address] PCP - General Family Medicine 01/10/25 documented as of this encounter
--- OUTSIDE RECORDS SUMMARY | 2025-03-08 00:11 | XMS_ITS | Encounter Summary ---
Author Organization [facility] Address [facility]-[id number] [address] [place] [address] Care Team Providers Care Property Utilization Manager Name Role Phone Julieth Rosa MD Primary Care Provider [phone] Encounter Details Date Type Department Care Team (Late st Contact Info) Description 10/13/2023 Orders Only [facility] Internal Medicine - Family Medicine [address] [place] [address] Alicia Wolfe, MAINFRAME APPLICATIONS DEVELOPER-AIRPORT SHUTTLE DRIVER [address] [place] [address] Nail fungus; Hyperpigmentation Social History Tobacco Use Types Packs/Day Years [...] Date/Time Associated Diagnosis Comments AMB REFERRAL TO DERMATOLOGY Routine 10/13/2023 2:21 PM EDT Nail fungus Hyperpigmentation documented in this encounter Results * Ambulatory referral to Dermatology ([facility]) (10/13/2023 2:21 PM EDT) Alicia Wolfe MAINFRAME APPLICATIONS DEVELOPER-AIRPORT SHUTTLE DRIVER OUTPATIENT REFERRAL ORDE YARY Final Result MANUALLY TRANSCRIBED RESULTS documented in this encounter Visit Diagnoses Diagnosis Nail fungus Hyperpigmentation Other dyschromia documented in this encounter Additional Health Concerns Assessment Noted Time PHQ-9 Depression Total Score: 0 10/13/19 24 9:28 AM EDT A Body Mass Index follow-up plan has been documented for the patient 10/31/2020 6:54 PM EDT documented as of this encounter Care Teams Property Utilization Manager Relationship Specialty Start Date End Date Julieth Rosa MD [address] [place] [address] PCP - General Family Medicine 01/10/25 documented as of this encounter
--- OUTSIDE RECORDS SUMMARY | 2025-03-08 00:11 | XMS_ITS | Encounter Summary ---
Author Organization [employer] Sys [employer] Address [facility]-[id number] [address] [place] [address] Care Team Providers Care Costume Rental Clerk Name Role Phone Julieth Rosa MD Primary Care Provider [phone] Encounter Details Date Type Department Care Team (Late st Contact Info) Description 11/02/2023 Telephone [facility] Internal Medicine - Family Medicine [address] [place] [address] Vida Anguiano CMA Social History [...] Telephone Encounter - Vida Anguiano CMA - 11/02/2023 1:32 PM EDT Pt called back read your note she stated it'll be probably 60 more days but definitely wants to seean bradly Cervantes. Pt stated she fell and knocked herself out on last Wednesday and just went to the [facility] ER on Wednesday they did a CT then did another one with contrast was looking for any reports , I looked through her media didn't see anything so I informed her to call [facility] to fax her reports over here and wanted you to know she is also taking the metforman * Telephone Encounter - SVETA Doe - 11/02/2023 1:32 PM EDT Please get CT and ER report from her recent visit. Please also schedule her ER f/u * Telephone Encounter - Ondina Zhu CMA - 11/02/2023 1:32 PM EDT [facility] is sending over the imagine and called patient to scheduled had to leave a message. documented in this encounter Plan of Treatment Not on file documented as of this encounter Visit Diagnoses Not on filedocumented in this encounter Additional Health Concerns Assessment Noted Time PHQ-9 Depression Total Score: 0 10/13/19 24 9:28 AM EDT A Body Mass Index follow-up plan has been documented for the patient 10/31/2020 6:54 PM EDT documented as of this encounter Care Teams Costume Rental Clerk Relationship Specialty Start Date End Date Julieth Rosa MD [address] [facility] [address] PCP - General Family Medicine 01/10/25 documented as of this encounter
--- OUTSIDE RECORDS SUMMARY | 2025-03-08 00:11 | XMS_ITS | Clinical Summary ---
Author Organization [facility] Address [id number] [address] [place] [address] Care Team Providers Care [employer] Name Role Phone Julieth Rosa MD Primary Care Provider [phone] Allergies No known active allergies Medications ibuprofen (MOTRIN) 800 mg tablet Take 1 tablet (800 mg total) by mouth every 8 (eight) hours as needed for pain. 21 tablet 07/12/2022 Active acetaminophen (TYLENOL EXTRA STRENGTH) 500 mg tablet Take 1 tablet (500 mg total) by mouth every 6 (six) hours as needed for pain. 30 tablet 07/12/2022 Active blood sugar diagnostic strip 1 strip by other route as needed for high blood sugar. 100 strip 1 09/01/2023 Active blood-glucose meter misc Use to check blood sugar once daily. 1 each 09/01/2023 Active lancets (onetouch ultrasoft) misc Use to check blood sugar once daily 100 each 1 09/01/2023 Active JARDIANCE 10 mg tablet tablet 11/14/2024 Activ e LANTUS SOLOSTAR U-100 INSULIN 100 unit/mL (3 mL) insulin pen 11/14/2024 Act kelley nicotine (NICODERM CQ) 21 mg/[address] 1 patch on the skin. Active TRULICITY 0.75 mg/0.5 mL pen injector Inject 0.5 mL (0.75 mg total) under the skin every 7 days. 12/08/2024 Active rOPINIRole (REQUIP) 0.25 mg tablet 1 po 2-3 hours before bed x 1 week then increase to 2 before bed if no SE 01/11/2025 Active Active Problems Problem Noted Date Diagnosed Date Hx of abnormal cervical Pap smear 10/13/2023 Nocturnal leg movements 07/29/2021 Disorder of bone and cartilage 07/10/2021 History of Sjogren's disease 07/10/2021 Hyperglycemia 07/10/2021 Telangiectasia of face 07/10/2021 Hypothyroid 07/10/2021 Acquired hypothyroidism 10/30/2020 Allergic 10/15/2020 Graves' disease 10/29/2016 Overview (08/27/2023): replace inactive diagnosis Overview: replace inactive diagnosis Lumbar degenerative disc disease 10/29/2016 Neck pain 10/29/2016 Osteoarthritis of foot, left 10/29/2016 Osteoarthritis of right hand 10/29/2016 TTS (tarsal tunnel syndrome) 10/29/2016 Vitamin D deficiency 10/29/2016 Allergic rhinitis 06/14/2015 Migraine 05/03/2015 Resolved Problems Problem Noted Date Diagnosed Date Resolved Date Malignant neoplasm of cervix 10/29/2016 10/13/2023 Overview (08/27/2023): freeze and scrap Overview: freeze and scrap Encounters Date Type Department Care Team Description 02/27/2025 Orders Only [facility] [address] [place] [address] Laureen Patel MA Abnormal TSH (Primary Dx) 02/12/2025 Orders Only [facility] gy [address] [place] [address] Laueren Patel MA Elevated TSH (Primary Dx); Low serum prolactin 02/09/2025 Results Follow-Up [facility] [address] [place] [address] Jessica Pete, [employer] Progesterone, Estradiol, Prolactin, Additional followed-up results: 6 02/09/2025 Orders Only [facility]ne[facility] [address] [place] [phone] Laureen Patel MA Postmenopausal syndrome 01/30/2025 1:30 PM EDT Office Visit [facility] [address] [place] [phone] Carmen Ragsdale MD Postmenopausal syndrome (Primary Dx) 01/30/2025 Travel 01/12/2025 Orders Only [facility] [address] [place] [phone] Jessica Pete, [employer] Sandra glabrata infection (Primary Dx) 01/12/2025 Telephone [facility] [address] [place] [phone] Jessica Pete [employer] 01/10/2025 4:58 PM EDT - 01/10/2025 7:42 PM EDT Emergency [facility] - Emergency [address] [place] [address] Michael Camejo MD Hyperglycemia (Primary Dx) Discharge Disposition: Home 01/10/2025 Travel 12/20/2024 Orders [facility] [address] [place] [phone] Jessica Pete, [employer] Vasomotor symptoms due to menopause (Primary Dx); Brain fog; Irritability 12/12/2024 Orders Only [facility] [address] [place] [phone] Jessica Pete, C4 [employer] Sandra glabrata infection; Vaginal yeast infection 12/12/2024 Telephone [facility] [address] [place] [phone] Jessica Pete [employer] 12/07/2024 Orders Only [facility] gy [address] [place] [phone] Jessica Pete, C4 [employer] Sandra glabrata infection (Primary Dx); Vaginal yeast infection 12/07/2024 Orders Only [facility] [address] [place] [phone] Kelly Solis CMA Nipple discharge (Primary Dx) 12/06/2024 1:00 PM EDT [facility] [address] [place] [address] Well woman exam with routine gynecological exam (Primary Dx); Screening mammogram for breast cancer; Screening for STD (sexually transmitted disease); Acute vaginitis; History of uterine fibroid; Nipple discharge; Pelvic pain; Screening for colon cancer 12/06/2024 Telephone [facility] [address] [place] [phone] Jessica Pete, C4 [employer] 12/06/2024 Travel from Last 3 Months Immunizations Immunization Administration Dates Next Due Tdap 08/14/2013 Family History Medical History Relation Name Comments No Known Problems Daughter Diabetes Mother Hypertension Mother Stroke Mother No Known Problems Sister No Known Problems Son Breast cancer Neg Hx Cancer Neg Hx Colon cancer Neg Hx Ovarian cancer Neg Hx Relation Name Status Comments Daughter Alive Father Other unknown Mother Alive Sister Alive Son Alive Social History Tobacco Use Types Packs/Day Years Used Date Smoking Tobacco: Some Days Cigarettes 1 20.4 Started: 10/2004 Smokeless Tobacco: Never Tobacco Cessation:Ready to Q uit: Yes; Counseling Given: Yes Alcohol Use Standard Drinks/Week Comments Not Currently [...] Sign Reading Time Taken Comments Blood Pressure 98/54 01/30/2025 1:32 PM EDT Pulse 88 01/10/2025 6:45 PM EDT Temperature 36.4 C (97.5 F) 01/10/2025 5:00 PM EDT Respiratory Rate 18 01/10/2025 6:45 PM EDT Oxygen Saturation 96% 01/10/2025 6:45 PM EDT Inhaled Oxygen Concentration - - Weight 78.6 kg (173 lb 3.2 oz) 01/30/2025 1:32 P M EDT Height 172.7 cm (5' 8 ) 01/30/2025 1:32 PM EDT Body Mass Index 26.33 01/30/2025 1:32 PM EDT Plan of Treatment Health Maintenance Due Date Last Done Comments Adult BMI Follow Up Plan 1993 Colon Cancer Screening 3 Year Cologuard 2020 DTaP,Tdap and Td Vaccines (2 - Td or Tdap) 08/14/2023 08/14/2013 Depression Screening 10/12/2024 10/13/2023 Influenza Vaccine 03/05/2025 Mammogram 12/25/2025 12/25/2024, 11/08/2020 Adult BMI Screening 01/30/2026 01/30/2025 Tobacco Screening 01/30/2026 01/30/2025 Tobacco Counseling 08/02/2026 01/30/2025 Pap Smear 08/31/2026 08/31/2023, 08/31/2023 Medical Devices Not on file Procedures Procedure Name Priority Date/Time Associated Diagnosis Comments CBC (NO DIFF) Routine 02/08/2025 Postmenopausal syndrome FOLLICLE STIMULATING HORMONE Routine 02/08/2025 Postmenopausal syndrome HCG-BETA, SERUM Routine 02/08/2025 Postmenopausal syndrome LUTEINIZING HORMONE Routine 02/08/2025 Postmenopausal syndrome THYROID PROFILE INCLUDES TSH FT4 Routine 02/08/2025 Postmenopausal syndrome TESTOSTERONE Routine 02/08/2025 Postmenopausal syndrome PROLACTIN Routine 02/08/2025 Postmenopausal syndrome ESTRADIOL Routine 02/08/2025 Postmenopausal syndrome PROGESTERONE Routine 02/08/2025 Postmenopausal syndrome BEDSIDE GLUCOSE Routine 01/10/2025 6:21 PM EDT PH, VENOUS Routine 01/10/2025 5:47 PM EDT EXTRA TUBES BLUE TOP Routine 01/10/2025 5:36 PM EDT EXTRA TUBES Routine 01/10/2025 5:36 PM EDT POCT NURSING URINE MACROSCOPIC UA Routine 01/10/2025 5:35 PM EDT ACETONE,(BETAHYDROXYB UTYRATE, KETONE) QUANTITATIVE SERUM STAT 01/10/2025 5:30 PM EDT MAGNESIUM STAT 01/10/2025 5:30 PM EDT LACTATE W/ REFLEX STAT 01/10/2025 5:3 0 PM EDT COMPREHENSIVE METABOLIC PANEL STAT 01/10/2025 5:30 PM EDT B-TYPE NATRIURETIC PEPTIDE STAT 01/10/2025 5:30 PM EDT CBC WITH AUTO DIFFERENTIAL STAT 01/10/2025 5:30 PM EDT ER EXTRA URINE MARBLE STAT 01/10/2025 5:24 PM EDT ER EXTRA URINE CULTURE STAT 01/10/2025 5:24 PM EDT ER EXTRA URINE STAT 01/10/2025 5:24 PM EDT ECG 12-LEAD STAT 01/10/2025 5:04 PM EDT BEDSIDE GLUCOSE Routine 01/10/2025 4:59 PM EDT CHLAMYDIA/GC BY PCR NEIL SWAB Routine 12/06/2024 1:37 PM EDT Screening for STD (sexually transmitted disease) VAGINITIS PANEL PCR Routine 12/06/2024 1 :37 PM EDT Acute vaginitis HIGH RISK HPV W/GABBI Routine 08/31/2023 5:10 AM EST Cervical smear, as part of routine gynecological examination MAMM SCREENING BILATERAL W CAD Routine 11/08/2020 12:53 PM EDT Encounter for screening mammogram for malignant neoplasm of breast from Last 3 Months or Most Recently Relevant to Health Maintenance Results * (ABNORMAL) Thyroid profile includes TSH FT4 (02/08/2025) External Tsh 15.5(A) 0.27 - 4.2 MANUAL LY TRANSCRIBED RESULTS Blood Venous blood / Unknown 02/08/2025 Carmen Ragsdale MD LAB BLOOD ORDERABLES Final Res ult Performing Organization Address City/[facility] [address]/[facility] Co de Phone Number MANUALLY TRANSCRIBED RESULTS * (ABNORMAL) Prolactin (02/08/2025) Prolactin 4.73(A) 4.79 - 23.3 MANUALLY TRANSCRIBED RESULTS Blood Venous blood / Unknown 02/08/2025 us Carmen Ragsdale MD LAB BLOOD ORDERABLES Final Res ult MANUALLY TRANSCRIBED RESULTS * Progesterone (02/08/2025) Pathologist [facility] Progesterone 2.57 MANUALL Y TRANSCRIBED RESULTS Blood Venous blood / Unknown 02/08/2025 Carmen Ragsdale MD LAB BLOOD ORDERABLES Final Res ult Performing Organization Address [facility] [address]/[facility] de Phone Number MANUALLY TRANSCRIBED RESULTS * Estradiol (02/08/2025) Pathologist [facility] Estradiol 66 MANUALLY TRANSCRIBED RESULTS Blood Venous blood / Unknown 02/08/2025 Carmen Ragsdale MD LAB BLOOD [facility]ABLES [facility] Per[facility] Organization Address [facility] [address]/[facility] de Phone Number MANUALLY TRANSCRIBED RESULTS * (ABNORMAL) CBC without diff (02/08/2025) Pathologist [facility] External Hematocrit Hct 44.9 36.3 - 47.1 [...] ORDERABLES Final Res ult Performing Organization Address [facility] [address]/[facility] de Phone Number MANUALLY TRANSCRIBED RESULTS * HCG, Quantitative, (02/08/2025) Pathologist [facility] Hcg-beta, serum 0.2 0 - 7 MANUALLY TRANSCRIBED RESULTS Blood Venous blood / Unknown 02/08/2025 Carmen Ragsdale MD LAB BLOOD ORDERABLES Final Res ult Performing Organization Address City/[facility] [address]/[facility] Co de Phone Number MANUALLY TRANSCRIBED RESULTS * Testosterone (02/08/2025) Testosterone 14 8 - 48 MANUALL Y TRANSCRIBED RESULTS Blood Venous blood / Unknown 02/08/2025 Carmen Ragsdale MD LAB BLOOD ORDERABLES Final Res ult Performing Organization Address [facility] [address]/[facility] Co de Phone Number MANUALLY TRANSCRIBED RESULTS * Luteinizing hormone (02/08/2025) Luteinizing hormone 2.8 MANUALLY TRANSCRIBED RESULTS Blood Venous blood / Unknown 02/08/2025 Carmen Ragsdale MD LAB BLOOD ORDERABLES Final Res ult Performing Organization Address [facility] [address]/[facility] de Phone Number MANUALLY TRANSCRIBED RESULTS * Follicle stimulating hormone (02/08/2025) Follicle stim hormone 4.8 MANUALLY TRANSCRIBED RESULTS Blood Venous blood / Unknown 02/08/2025 Carmen Ragsdale MD LAB BLOOD ORDERABLES Final Res ult Performing Organization Address [facility] [address]/[facility] de Phone Number MANUALLY TRANSCRIBED RESULTS * (ABNORMAL) Bedside Glucose *Place/Obtain serum glucose if >500 per glucometer. (01/10/2025 6:21 PM EDT) Only the most recent of2 resultswithin the time period is included. Bedside Glucose (POC) 306(H) 65 - 99 mg/dL 01/10/2025 6:22 PM EDT [facility] arterial/capilla ry 01/10/2025 6:21 PM EDT 01/10/2025 6:22 PM EDT us Michael Camejo MD POINT OF CARE TEST ORDERABLES F inal Result Performing Organization Address [facility] [address]/[facility] Co de Phone Number [address] [place] [address], [place] * (ABNORMAL) pH Venous (01/10/2025 5:47 PM EDT) pH, Venous 7.439(H) 7.320 - 7.420 01/10/2025 5:50 PM EDT [facility] venous Venous blood / Unknown 01/10/2025 5:47 PM EDT 01/10/2025 5:50 PM EDT us Michael Camejo MD LAB BLOOD ORDERABLES Final Resu lt Performing Organization Address [facility] [address]/[facility] Co de Phone Number [address] [place] [address], [place] * Light Blue Top (01/10/2025 5:36 PM EDT) Extra Tube Auto Resulted 01/10/2025 7:01 PM EDT [facility] Blood Venous blood / Unknown 01/10/2025 5:36 PM EDT 01/10/2025 5:36 PM EDT us Michael Camejo MD LAB BLOOD ORDERABLES Final Resu lt Performing Organization Address [facility] [address]/[facility] Co de Phone Number [address] [place] [address], [place] * (ABNORMAL) POCT Nursing Urine Macroscopic UA (01/10/2025 5:35 PM EDT) POC Urine Specific Duncan 1.015 1.010, 1.015, 1.020, 1.025 01/10/2025 5:28 PM EDT [facility] POC Urine Leukocyte Esterase Negative Negative 01/10/2025 5:28 PM EDT [facility] POC Urine Nitrite Negative Negative 01/10/2025 5:28 PM EDT [facility] POC Urine pH 7.0 5.0, 6.0, 6.5, 7.0, 7.5, 8.0, 8.5, 5.5 01/10/2025 5:28 PM EDT [facility] POC Urine Protein Negative Negative 01/10/2025 5:28 PM EDT [facility] POC Urine Glucose >=1000 mg/dL(A) Negative 01/10/2025 5:28 PM EDT [facility] POC Urine Ketones Negative Negative 01/10/2025 5:28 PM EDT [facility] POC Urine Urobilinogen 0.2 E.U./dL 01/10/2025 5:28 PM EDT [facility] POC Urine Bilirubin Negative Negative 01/10/2025 5:28 PM EDT [facility] POC Urine Blood/HGB Negative Negative 01/10/2025 5:28 PM EDT [facility] Urine 01/10/2025 5:35 PM EDT 01/10/2025 5:28 PM EDT us Michael Camejo MD POINT OF CARE TEST ORDERABLES F inal Result Performing Organization Address City/State/[facility] Co de Phone Number [facility] [address] [place] [address], * Lactate w/ Reflex (01/10/2025 5:30 PM EDT) LACTATE W/REFLEX 1.3 0.4 - 2.0 mmol/L 01/10/2025 5:55 PM EDT [facility] Blood Venous blood / Unknown Venipuncture / Unknown 01/10/2025 5:30 PM EDT 01/10/2025 5:36 PM EDT Narrative [facility] - 01/10/2025 5:55 PM EDT Result did not trigger repeat Lactate, re-order if needed. us Michael Camejo MD LAB BLOOD ORDERABLES Final Resu lt [facility] [address] [place] [address], * CBC auto differential (01/10/2025 5:30 PM EDT) WBC 6.0 4 - 11 x10E9/L 01/10/2025 5:45 PM EDT [facility] RBC Count 4.82 3.8 - 5.2 X10E12/L 01/10/2025 5:45 PM EDT [facility] Hemoglobin 14.0 11.7 - 15.5 g/dL 01/10/2025 5:45 PM EDT [facility] Hematocrit 41.3 35 - 47 % 01/10/2025 5:45 PM EDT [facility] MCV 86 80 - 100 fL 01/10/2025 5:45 PM EDT [facility] MCH 29.1 27 - 34 pg 01/10/2025 5:45 PM EDT [facility] MCHC 33.9 32 - 36 g/dL 01/10/2025 5:45 PM EDT [facility] RDW 13.1 11.5 - 15 % 01/10/2025 5:45 PM EDT [facility] Platelet Count 256 150 - 450 X10E9/L 01/10/2025 5:45 PM EDT [facility] MPV 7.9 7 - 12 fL 01/10/2025 5:45 PM EDT [facility] Neutrophils % 59.7 % 01/10/2025 5:45 PM EDT [facility] Lymphocytes % 31.7 % 01/10/2025 5:45 PM EDT [facility] Monocytes % 5.9 % 01/10/2025 5:45 PM EDT [facility] Eosinophils % 2.1 % 01/10/2025 5:45 PM EDT [facility] Basophils % 0.6 % 01/10/2025 5:45 PM EDT [facility] Neutrophils Absolute (A) 3.6 1.5 - 6.6 10*3/uL 01/10/2025 5:45 PM EDT [facility] Lymphocytes Absolute 1.9 1.0 - 3.5 10*3/uL 01/10/2025 5:45 PM EDT [facility] Monocytes Absolute 0.4 0.0 - 0.9 10*3/uL 01/10/2025 5:45 PM EDT [facility] Eosinophils Absolute 0.1 0.0 - 0.4 10*3/uL 01/10/2025 5:45 PM EDT [facility] Basophils Absolute 0.0 0.0 - 0.2 10*3/uL 01/10/2025 5:45 PM EDT [facility] Differential Type AUTOMATED DIFFERENTIAL 01/10/2025 5:45 PM EDT [facility] Blood Venous blood / Unknown Venipuncture / Unknown 01/10/2025 5:30 PM EDT 01/10/2025 5:36 PM EDT us Michael Camejo MD LAB BLOOD ORDERABLES Final Resu lt [facility] [address] [place] [address], * Acetone, (BetaHydroxybutyrate, Ketone) quantitative, serum (01/10/2025 5:30 PM EDT) BETAHYDROXYBUTYRATE 0.13 0.02 - 0.27 mmol/L 01/10/2025 6:22 PM EDT [facility] Blood Venous blood / Unknown Venipuncture / Unknown 01/10/2025 5:30 PM EDT 01/10/2025 5:36 PM EDT us Michael Camejo MD LAB BLOOD ORDERABLES Final Resu lt [address] [place] [address], [place] * B-type natriuretic peptide (01/10/2025 5:30 PM EDT) BNP 16 <=100 pg/mL 01/10/2025 6:19 PM EDT [facility] Blood Venous blood / Unknown Venipuncture / Unknown 01/10/2025 5:30 PM EDT 01/10/2025 5:36 PM EDT us Michael Camejo MD LAB BLOOD ORDERABLES Final Resu lt Performing Organization Address City/[facility] [address]/ZIP Co de Phone Number [address] [place] [address], [place] * Magnesium (01/10/2025 5:30 PM EDT) Pathologist [facility] MAGNESIUM 1.8 1.8 - 2.6 mg/dL 01/10/2025 5:59 PM EDT [facility] Blood Venous blood / Unknown Venipuncture / Unknown 01/10/2025 5:30 PM EDT 01/10/2025 5:36 PM EDT us Michael Camejo MD LAB BLOOD ORDERABLES Final Resu lt Performing Organization Address City/[facility] [address]/ZIP Co de Phone Number [address] [place] [address], [place] * (ABNORMAL) Comprehensive metabolic panel (01/10/2025 5:30 PM EDT) Pathologist [facility] SODIUM 132(L) 134 - 146 mmol/L 01/10/2025 6:14 PM EDT [facility] POTASSIUM 4.1 3.5 - 5.0 mmol/L 01/10/2025 6:14 PM EDT [facility] CHLORIDE 101 98 - 109 mmol/L 01/10/2025 6:14 PM EDT [facility] CARBON DIOXIDE 25 22 - 32 mmol/L 01/10/2025 6:14 PM EDT [facility] ANION GAP 6 5 - 15 mmol/L 01/10/2025 6:14 PM EDT [facility] BLOOD UREA NITROGEN 14 5 - 23 mg/dL 01/10/2025 6:14 PM EDT [facility] CREATININE 0.45 0.40 - 1.00 mg/dL 01/10/2025 6:14 PM EDT [facility] Comment:METHOD TRACEABLE TO IDPA STANDARD GLUCOSE 401(HH) 65 - 99 mg/dL 01/10/2025 6:14 PM EDT [facility] CALCIUM 8.6 8.5 - 10.5 mg/dL 01/10/2025 6:14 PM EDT [facility] TOTAL PROTEIN 6.2 6.0 - 8.0 g/dL 01/10/2025 6:14 PM EDT [facility] ALBUMIN 3.4 3.2 - 5.3 g/dL 01/10/2025 6:14 PM EDT [facility] ALKALINE PHOSPHATASE 118 39 - 130 U/L 01/10/2025 6:14 PM EDT [facility] AST 14 <=41 U/L 01/10/2025 6:14 PM EDT [facility] ALT 32(H) <=31 U/L 01/10/2025 6:14 PM EDT [facility] BILIRUBIN,TOTAL 0.4 0.3 - 1.2 mg/dL 01/10/2025 6:14 PM EDT [facility] EGFR Non-Race Dependent >90 >=60 ml/min/1.7 3sq.m 01/10/2025 6:14 PM EDT [facility] Comment: Reported eGFR is based on the CKD-EPI 2020 equation that does not use a race coefficient. Blood Venous blood / Unknown Venipuncture / Unknown 01/10/2025 5:30 PM EDT 01/10/2025 5:36 PM EDT us Michael Camejo MD LAB BLOOD ORDERABLES Final Resu lt Performing Organization Address [facility] [address] [facility] Co de Phone Number [address] [place] [address], [place] * Extra Urine [place] (01/10/2025 5:24 PM EDT) Extra Tube Auto Resulted 01/10/2025 7:01 PM EDT [facility] Urine Urine specimen collection, clean catch / Unknown Collection / Unknown 01/10/2025 5:24 PM EDT 01/10/2025 5:35 PM EDT us Micheal Camejo MD URINE ORDERABLES Final Result Performing Organization Address [facility] [address] [facility] de Phone Number [address] [place] [address], [place] * Extra Urine Culture (01/10/2025 5:24 PM EDT) Extra Tube Auto Resulted 01/10/2025 7:01 PM EDT [facility] Urine Urine specimen collection, clean catch / Unknown Collection / Unknown 01/10/2025 5:24 PM EDT 01/10/2025 5:35 PM EDT us Michael Camejo MD URINE ORDERABLES Final Result Performing Organization Address City/[facility] [address]/[facility] de Phone Number [address] [place] [address], [place] * Extra Urine (01/10/2025 5:24 PM EDT) Extra Tube Auto Resulted 01/10/2025 7:01 PM EDT [facility] Urine Urine specimen collection, clean catch / Unknown Collection / Unknown 01/10/2025 5:24 PM EDT 01/10/2025 5:35 PM EDT us Michael Camejo MD URINE ORDERABLES Final Result Performing Organization Address City/[facility] [address]/[facility] Co de Phone Number [facility] [address] [place] [address], [place] * ECG 12 lead (01/10/2025 5:04 PM EDT) 01/10/2025 5:04 PM EDT Narrative [facility] - 01/10/2025 5:37 PM EDT Michael Camejo MD ECG ORDERABLES Final Result [facility] * Chlamydia/GC by PCR Neil Swab (12/06/2024 1:37 PM EDT) CHLAMYDIA DNA(PCR) Negative Negative 12/07/2024 12:08 PM EDT [facility] Comment:Chlamydia trachomati s not detected by nucleic acid amplification. This does not exclude the possibility of infection because results are dependent on adequate specimen collection. GONORRHOEAE DNA(PCR) Negative Negative 12/07/2024 12:08 PM EDT [facility] Comment:Neisseria gonorrhoea e not detected by nucleic acid amplification. This does not exclude the possibility of infection because results are dependent on adequate specimen collection. Swab Endocervical structure / Unknown 12/06/2024 1:37 PM EDT 12/06/2024 1:37 PM EDT Jessica Pete C[employer] MICROBIOLOGY - GENERAL O RDERABLES Final Result [facility] [address] [place] [address], [place] [phone] * (ABNORMAL) Vaginitis Panel PCR (12/06/2024 1:37 PM EDT) BACT. VAGINOSIS DNA Not Detected Not Detected 12/07/2024 12:26 AM EDT [facility] Comment:Qualitative results are reported based on detection and quantitation of targeted organism markers which include: Lactobacillus spp. (L. crispatus and L. jensenii), Gardnerella vaginalis, Atopobium vaginae, Bacterial Vaginosis Associated Bacteria-2 (BVAB-2) and Megasphaera-1. SANDRA SPECIES DNA Not Detected Not Detected 12/07/2024 12:26 AM EDT [facility] Comment:Sandra species not detected include: C. albicans, C. tropicalis, C. parapsilosis or C. dubliniensis. SANDRA KRUSEI DNA Not Detected Not Detected 12/07/2024 12:26 AM EDT [facility] Comment:No Sandra krusei de tected. SANDRA GLABRATA DNA Detected(A) Not Detected 12/07/2024 12:26 AM EDT [facility] Comment:Sandra glabrata det ected. Literature studies show between 8-20% Fluconazole resistance for Sandra glabrata. TRICHOMONAS VAG DNA Not Detected Not Detected 12/07/2024 12:26 AM EDT [facility] Comment: No Trichomonas vaginalis detected. BD MAX Vaginal Panel has not been evaluated for patients under 18 years old. Results for these patients should be reviewed and assessed in accordance with clinical presentation to determine patient diagnosis. Swab Vaginal structure / Unknown 12/06/2024 1:37 PM EDT 12/06/2024 1:37 PM EDT us Jessica Pete C4 PLANNER-TURN SUPERVISOR MICROBIOLOGY - GENERAL O RDERABLES Final Result [facility] [address] [place] [address], * High risk HPV w/gabbi (08/31/2023 5:10 AM EST) Hpv specimen type ThinPrep 09/01/2023 5:10 AM EST [facility] Hpv 16 Negative Negative^N egative 09/01/2023 2:49 PM EST [facility] Hpv 18 Negative Negative^N egative 09/01/2023 2:49 PM EST [facility] Other high risk hpv Negative Negative^N egative 09/01/2023 2:49 PM EST [facility] Comment: HPV types 31,33,35,39,45,52,56,58,59,66 and 68 DNA were undetectable. 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
--- OUTSIDE RECORDS SUMMARY | 2025-03-08 00:11 | XMS_ITS | Encounter Summary ---
Author Organization [facility] Address [id number] [address] [place] [address] Care Team Providers Care Piercer Operator Name Role Phone Julieth Rosa MD Primary Care Provider [phone] Encounter Details Date Type Department Care Team (Late st Contact Info) Description 11/12/2023 Telephone [facility] - Family Medicine [address] [place] [address] Linh Perez CMA Social History Tobacco Use Types Packs/Day [...] encounter Miscellaneous Notes * Telephone Encounter - Linh Perez CMA - 11/12/2023 12:47 PM EDT ----- Message from Alicia Wolfe APRN-PRINTING FILM STRIPPER sent at 11/12/2023 10:52 AM EDT ----- The CT of her neck redemonstrates the very large multinodular thyroid. When she reestablish his health insurance she is to call so we can refer her to endocrinology and ENT. * Telephone Encounter - Linh Perez CMA - 11/12/2023 12:47 PM EDT Left a message for the patient to call us back documented in this encounter Plan of Treatment Not on file documented as of this encounter Visit Diagnoses Not on filedocumented in this encounter Additional Health Concerns Assessment Noted Time PHQ-9 Depression Total Score: 0 10/13/19 24 9:28 AM EDT A Body Mass Index follow-up plan has been documented for the patient 10/31/2020 6:54 PM EDT documented as of this encounter Care Teams Piercer Operator Relationship Specialty Start Date End Date Julieth Rosa MD [address] [facility] [place] [address] PCP - General Family Medicine 01/10/25 documented as of this encounter
--- OUTSIDE RECORDS SUMMARY | 2025-03-08 00:11 | XMS_ITS | Clinical Summary ---
Author Organization [facility] Address [address] [place] [address] Care Team Providers Care Plant Culture Manager Name Role Phone Matt Anderson MD Primary Care Provider [phone] Social History Tobacco Use Types Packs/Day Years Used Date Smoking Tobacco: Never Assessed Comments Unknown Sex and Gender Information Value Date Recorded Sex Assigned at Not on file Legal Sex Female 9:30 AM EDT Gender Identity Not on file Sexual Orientation Not on file Plan of Treatment Not on file [facility] [employer] PLUS Care Teams Plant Culture Manager Relationship Specialty Start Date End Date Back, MD Matt PCP - General Internal Medicine 03/22/15
--- OUTSIDE RECORDS SUMMARY | 2025-03-08 00:11 | XMS_ITS | Encounter Summary ---
Author Organization [facility] Address [id number] [address] [place] [address] Care Team Providers Care Automatic Buffer Name Role Phone Julieth Rosa MD Primary Care Provider [phone] Encounter Details Date Type Department Care Team (Late st Contact Info) Description 10/12/2023 Telephone [facility] Internal Medicine - Family Medicine [address] [place] [address] Vida Anguiano CMA Social History [...] Telephone Encounter - Vida Anguiano CMA - 10/12/2023 2:58 PM EDT Pt called requesting that no dr's have any access to her file at this time and will discuss furthertommorow * Telephone Encounter - SVETA Doe - 10/12/2023 2:58 PM EDT I'm not sure what she means. There is a way to make her chart confidential I know. Can you discuss this with her as she did not show for appt this am. * Telephone Encounter - Michelle Bautista - 10/12/2023 2:58 PM EDT The only extra security Im aware of is in mental health. I reached out to leadership to see if there was a way to filter or secure her chart further that maybe I was unaware of. She does not believe this is a possibility but recommended the patient call HIM to inquire further @ [phone]. Attempted to relay the above information, LVM to call office documented in this encounter Plan of Treatment Not on file documented as of this encounter Visit Diagnoses Not on filedocumented in this encounter Additional Health Concerns Assessment Noted Time PHQ-9 Depression Total Score: 0 09/01/19 24 8:21 AM EST A Body Mass Index follow-up plan has been documented for the patient 10/31/2020 6:54 PM EDT documented as of this encounter Care Teams Automatic Buffer Relationship Specialty Start Date End Date Julieth Rosa MD [address] [place] [place] [address] PCP - General Family Medicine 01/10/25 documented as of this encounter
--- OUTSIDE RECORDS SUMMARY | 2025-03-08 00:11 | XMS_ITS | Patient Health Record ---
Author Organization [facility] vices Address [address] [place] [id number] Care Team Providers Care Outreach Director Name Role Phone Shelley, Julieth Primary Care Provider [phone] Allergies No Known Allergies Results Component Value Reference Range Notes POCT A1C Reviewed date:12/08/2024 12:44:17 PM Interpretation: Performing Lab: Notes/Report: Result 11.6 0-5.6 % X ray : Knee, left 2 views Reviewed date:12/18/2024 12:38:29 PM Interpretation: Performing Lab: Notes/Report: MRI : Lumbar without contras t Reviewed date:12/18/2024 12:37:50 PM Interpretation: Performing Lab: Notes/Report: UDS HIV Screening Reviewed date:01/16/2025 04:02:54 PM Interpretation: Performing Lab: Notes/Report: HIV nonreactive MICROALBUMIN, RANDOM URINE Reviewed date:11/21/2024 10:29:06 AM Interpretation: Performing Lab: Notes/Report: COMPREHENSIVE METABOLIC PANE L WITH GFR Reviewed date:11/21/2024 10:29:20 AM Interpretation: Performing Lab: Notes/Report: Reason For Referral Reason strong family hx of ALS Diagnosis 1 ALS (amyotrophic lat eral sclerosis) (G12.21) Referral Organization Third Referring Provider First Name Julieth Referring Provider Last Name Shelley Referring Provider Speciality Family Med icine Referred Provider Hoda Carroll gy Referred Provider Specialty Neurology General Notes Daisy Ro 025 03:00:00 PM >pt called, states this referral can't get her in for quite some time, and they have also r/s her 3 different times., Daisy Ro 12/20/2024 03:01:04 PM >pt hoping you can send referral to: Dr. Grady in [place] area, fax [phone]. pt states they can get her in in January, Ivy Peters 12/28/2024 10:42:43 AM >Provider sent referral to another provider pt requested. Referral Priority Routine Reason hx of graves vs hash imoto Diagnosis 1 Thyroid nodule (E04. 1) Referral Organization Third Referring Provider First Name [facility] Referring Provider Last Name [facility] Referring Provider [facility] Referred Provider Meghna Christianson Referred Provider Specialty Endocrinolog y General Notes Ivy Peters 01/18/20 09:55:18 AM >Pt has appt in Feb., Ivy Peters 02/22/2025 10:38:59 AM >pt N/S, closing per policy. Referral Priority Routine Referral Appointment Date 02/12/2025 Reason Mri degeneratice yayo nges in l5-s1 and neuropathy Diagnosis 1 Lumbar radiculopathy (M54.16) Referral Organization Third Referring Provider First Name [facility] Referring Provider Last Name [facility] Referring Provider [facility] Referred Provider [facility] Referred Provider Specialty Orthopedics General Notes Ivy Peters 01/18/20 10:23:18 AM >Spoke with referral office and they stated pt had an appt but N/S. Closing due to policy. Referral Priority Routine Reason b/l leg weakness and tingling with lower back pain Diagnosis 1 Lumbar radiculopathy (M54.16) Referral Organization Third Referring Provider First Name Julieth Referring Provider Last Name Shelley Referring Provider [facility] Med icine Referred Provider Hoda Singer Physica l Therapy Referred Provider Specialty Physical The rapist General Notes Ivy Peters 12/26/19 10:06:01 AM >Provider referred elsewhere. Referral Priority Routine Reason pt has established w t this office in the past strong fm hx of ALS pt wants to know more about ALS and get tested. Diagnosis 1 ALS (amyotrophic lat eral sclerosis) (G12.21) Referral Organization Third Referring Provider First Name [facility] Referring Provider Last Name Shelley Referring Provider Speciality Family Med icine Referred Provider [facility] Referred Provider Specialty Neurology General Notes Ivy Peters 01/11/20 01:34:21 PM >LVM with referral office for followup., Ivy Peters 01/17/2025 01:24:39 PM >Sent fax requesting followup. Referral Priority Routine Medications Medication SIG (Take, Route, Frequency, Duration) Notes Start Date End Date Status Nicotine Step 1 21 MG/24HR 1 patch to skin Transdermal Once a day; Duration: 60 days 10/13/2024 Active Trulicity 0.75 MG/0.5ML inject 0.75mg Subcutaneous once a week; Duration: 30 days 12/08/2024 Active Nicotine Polacrilex 2 MG 1 lozenge Mouth/Throat every 1-2hours; Duration: 60 days 10/13/2024 Active True Metrix Blood Glucose Test - as directed In Vitro twice a day; Duration: 90 days 01/01/2025 Active Lancet Device - as directed; Duration: 30 days 10/12/2024 Not-Taking D-Care Glucometer w/Device as directed; Duration: 30 days 10/12/2024 Not-Taking Gojji Blood Test Strip/Lancets - as directed In Vitro twice a day; Duration: 30 days any brand covered by insurance and whichever is compatible with her [facility] meter. 10/12/2024 Not-Taking Jardiance 25 MG 1 tablet Orally Once a day; Duration: 90 days any brand covered by insurance 11/14/2024 Active BD Pen Needle Jody 2nd Gen 32G X 4 MM as directed; Duration: 60 days 01/01/2025 Active Social History Tobacco Use: Social History Observation Description Date Details (start date - stop date) Heavy tobacco nallely perez 07/05/1992 - NA Sex Assigned At : Social History Observation Description Sex Assigned At Female Tobacco Use/Smoking Question Answer Notes Tobacco use: heavy tobacco smoker patient entered data When did you start smoking? 07/05/1992 p atient entered data CAGE-AID Questionnaire (2018 Edition) Question Answer Notes Have you ever felt that you ought to cut down on your drinking or drug use? Yes patient ente red data Have people annoyed you by c riticizing your drinking or drug use? No patient entered data Have you ever felt bad or gu ilty about your drinking or drug use? Yes patient entered data Have you ever had a drink or used drugs first thing in the morning to steady your nerves or to get rid of a hangover? No patient entered data CAGE-AID Score 2 Interpretation Clinically Significant PRAPARE Question Answer Notes Date Completed/Updated: 10/12/2024 abhaye nt entered data What is your current housing situation? I have housing patient entered data Are you worried about losing your housing? Yes patient entered data What is the highest level of school that you have finished? High school diploma or GED patient entered data What is your current work situation? Unemployed and seeking work patient entered data In the past year, have you o r any family members you live with been unable to get any of the following when it was really needed? Check all that apply Food,Clothing,Utilities,Medi cine or any health care (medical, dental, mental health or vision),Phone,Other (please write in notes),I do not have problems meeting my needs Has lack of transportation k ept you from medical appointments, meetings, work or from getting things needed for daily living? No How often do you see or talk to people that you care about and feel close to? (For example: talking to friends on the phone, visiting friends or family, going to protestant or club meetings) 3 to 5 times a week patient entered data How stressed are you? Stress is when someone feels tense, nervous, anxious, or can't sleep at night because their mind is troubled Very much patient entered data In the past year have you sp ent more than 2 nights in a row in a custodial, assisted, retirement center, or juvenile correctional facility? No patient entered data Are you a refugee? No patient en tered data What country are you from? [place] entered data Do you feel physically and emotionally safe where you currently live? Unsure patient entered data In the past year, have you b een afraid of your partner or ex-partner? No patient entered data PRAPARE Score: 12 Problems Problem Type SNOMED Code ICD Code Onset Dates Problem Status W/U Status Risk Notes Problem Tobacco user (728442887) Cigarette nicotine dependence without complication (F17.210) Active confirmed Problem Thyroid nodule (024972313) Thyroid nodule (E04.1) Active confirmed Problem Tobacco dependence (16214016) Tobacco dependence (F17.200) Active confirmed Problem Type 2 diabetes mellitus (24515689) Type 2 diabetes mellitus (E11.9) Active confirmed Problem Lumbar radiculopathy (667634906) Lumbar radiculopathy (M54.16) Active confirmed Problem Amyotrophic lateral sclerosis (35265416) ALS (amyotrophic lateral sclerosis) (G12.21) Active confirmed Problem Neuropathy (030742047) Neuropathy (G62.9) Active confirmed Problem Transient ischemic attack (539733518) TIA (transient ischemic attack) (G45.9) Active confirmed Problem Hyperglycemia due to type 2 diabetes mellitus (274652532242424) Uncontrolled type 2 diabetes mellitus with hyperglycemia (E11.65) Active confirmed Vital Signs Heart Rate 90 /min 12/20/2024 Shiloh Albarado 12/20/2024 12:54:11 PM EDT > Temperature 97.3 degrees Fahrenheit 12/20/2024 Shiloh Hall 12/20/2024 12:54:11 PM EDT > Respiratory Rate 16 /min 12/20/2024 Sue Albarado 12/20/2024 12:54:11 PM EDT > Height-cm 170.18 cm 12/20/2024 Shiloh Albarado 12/20/2024 12:54:11 PM EDT > Oximetry 98 % 12/20/2024 Shiloh Albarado 12/20/2024 12:54:11 PM EDT > Blood pressure diastolic 78 mm Hg 12/20/2024 Shiloh Thompson 12/20/2024 12:54:11 PM EDT > Weight-kg 69.13 kg 12/20/2024 Shiloh Albarado 12/20/2024 12:54:11 PM EDT > Height 67 in 12/20/2024 Shiloh Albarado 12/20/2024 12:54:11 PM EDT > Blood pressure systolic 114 mm Hg 12/20/2024 Shiloh Hall 12/20/2024 12:54:11 PM EDT > Weight 152.4 lbs 12/20/2024 [place] 12/20/2024 12:54:11 PM EDT > BMI 23.87 kg/m2 12/20/2024 Per Shiloh 12/20/2024 12:54:11 PM EDT > Encounters Encounter Location Date Provider Diagnosis [address] [place] [address] 10/12/2024 [facility] discharg e follow-up Z09 ; Uncontrolled type 2 diabetes mellitus with hyperglycemia E11.65 ; Thyroid nodule E04.1 ; Trichomonal cystitis and urethritis A59.03 ; Moderately severe depression F32.A ; Severe malnutrition E43 and Cigarette nicotine dependence without complication F17.[address] [place] [address] 11/14/2024 Julieth Shelley Uncontrolled type 2 diabetes mellitus with hyperglycemia E11.65 and Neuropathy G62.[address] [place] [address] 11/21/2024 Julieth Shelley Lumbar radiculopa thy M54.16 ; Left knee pain M25.562 and Tobacco dependence F17.[address] [place] [address] 12/01/2024 Julieth Shelley Other physical an d mental strain related to work Z56.6 and ALS (amyotrophic lateral sclerosis) G12.21 [address] [place] [address] 12/08/2024 Julieth Shelley Uncontrolled type 2 diabetes mellitus with hyperglycemia E11.65 ; ALS (amyotrophic lateral sclerosis) G12.21 ; Cigarette nicotine dependence without complication F17.210 and Financial difficulties Z59.[address] [place] [address] 12/20/2024 Juileth Shelley Neuropathy G62.9 ; Lumbar radiculopathy M54.16 ; Thyroid nodule E04.1 and Stroke-like symptoms R29.90 [address] [place] [id number] 10/13/2024 Julieth Shelley Tobacco dependence F 17.[address] [place] [address] 10/13/2024 Julieth Shelley [address] [place] [id number] 10/16/2024 Julieth Shelley [address] [place] [id number] 10/19/2024 Julieth Shelley [address] [facility] [address] 11/14/2024 Julieth Shelley [address] [facility] [place] [address] 11/14/2024 Julieth Shelley Third [address] [place] [address] 11/23/2024 Julieth Shelley [address] [facility] [place] [id number] 11/29/2024 Julieth Shelley [address] [facility] [address] 12/07/2024 Julieth Shelley Uncontrolled type 2 diabetes mellitus with hyperglycemia E11.[address], [place] [id number] 12/08/2024 Julieth Shelley [address] [place] [address] 12/18/2024 Julieth Shelley [address] [place] [address] 12/20/2024 Julieth Shelley ALS (amyotrophic lateral sclerosis) G12.21 [address] [place] [id number] 01/01/2025 Julieth Shelley Type 2 diabetes baldo itus E11.9 [address] [facility] [place] [address] 01/10/2025 Julieth Shelley [address] [facility] [id number] 02/07/2025 Julieth Shelley Uncontrolled type 2 diabetes mellitus with hyperglycemia E11.65 Assessments Encounter Date Diagnosis (ICD Code) Assessment Notes Treatment Notes Treatment Clinical Notes Section Notes 11/21/2024 Lumbar radiculopathy (ICD-10 - M54.16) The patient would like to understand the underlying cause of her pain and is opting to defer physical therapy and pain medications at this time, pending the results of imaging studies. She reports symptomatic relief with duloxetine. 11/21/2024 Left knee pain (ICD-10 - M25.562) 12/01/2024 Other physical and mental strain related to work (ICD-10 - Z56.6) The patient was provided with a work note and materials for the [employer] [facility]. She was advised to follow up with them for a more thorough disability evaluation and necessary paperwork 12/01/2024 ALS (amyotrophic lateral sclerosis) (ICD-10 - G12.21) The discussion regarding a referral to neurology will be addressed at the patient's next appointment. 01/01/2025 Type 2 diabetes mellitus (ICD-10 - E11.9) 02/07/2025 Uncontrolled type 2 diabetes mellitus with hyperglycemia (ICD-10 - E11.65) 11/14/2024 Neuropathy (ICD-10 - G62.9) The patient will be started on duloxetine to help manage neuropathic pain, as well as underlying depression. 11/14/2024 Uncontrolled type 2 diabetes mellitus with hyperglycemia (ICD-10 - E11.65) Last A1c 14.3 10/17/24: The patient reports that she was previously taking Lantus 25 units twice daily, but ran out of the medication. As a result, she resumed Novolin 70/30, 25 units twice daily, and restarted Glipizide 10 mg daily. She reports experiencing episodes of low blood sugar, associated with jittery sensations. Changes Made Today: Metformin increased from 500 mg once daily to 1000 mg daily (500 mg twice daily). Discontinued Lantus BID dosing, as the patient was informed that Lantus is typically taken once daily, not twice daily.Restarted Lantus at 40 units once daily.Glipizide discontinued due to hypoglycemia.Initia kaylen SGLT2 inhibitor therapy. Patient educated on: The benefits of the new medication. The importance of consistent insulin use. Recognizing and managing symptoms of hypoglycemia The patient verbalized understanding and agreed with the medication changes. I recommend home blood sugar readings to be monitored frequently (daily fasting along with random (2 hours after meals). Pt was advised to log the reading with timings and to bring it on the next visit so we can adjust the dose of medications as needed. Pt was advised to inspect the feet daily. Patient was reminded to have yearly eye exam to look for diabetic retinopathy and yearly compacting machine operator/tender visit and PVU f/u in one week. 12/20/2024 ALS (amyotrophic lateral sclerosis) (ICD-10 - G12.21) 12/20/2024 Lumbar radiculopathy (ICD-10 - M54.16) Patient ambulates with cane and reports lower back pain accompanied by bilateral lower extremity weakness and tingling. These symptoms plus findings from recent MRI imaging. Patient has been referred to orthopedics and physical therapy for further evaluation and management 12/20/2024 Neuropathy (ICD-10 - G62.9) continue duloxetine. 12/08/2024 ALS (amyotrophic lateral sclerosis) (ICD-10 - G12.21) Strong family hx of ALS pt requested to be seen by neurology. 12/08/2024 Uncontrolled type 2 diabetes mellitus with hyperglycemia (ICD-10 - E11.65) The patient's A1C was 14.6 previously, and it has improved to 11.6 today. The patient is unable to tolerate metformin due to gastrointestinal disturbances and will discontinue the medication. Her current Lantus dose is 45 units, and her diabetes appears to be poorly controlled. It was advised to increase the Lantus dose by 2-4 units to 48 units. Additionally, Trulicity will be added to optimize blood glucose control. The patient was instructed to take Trulicity weekly and continue Jardiance 10 mg daily. There is room for further dose adjustments if adequate control is not achieved despite these changes to the medication regimen. The patient was educated on the benefits of GLP-1 and SGLT-2 inhibitors, as well as the risks of hypoglycemia. She was also provided with educational materials on hypoglycemia and instructed on when to seek healthcare. The patient is in agreement with the proposed plan. Pt advised on healthy diet and lifestyle modification, discussed we aim for an A1c of 8.5 and less. pt is determined to work towards achieving set goal. 12/07/2024 Uncontrolled type 2 diabetes mellitus with hyperglycemia (ICD-10 - E11.65) 10/13/2024 Tobacco dependence (ICD-10 - F17.200) 10/12/2024 Hospital discharge follow-up (ICD-10 - Z09) pt was [facility] at [facility] 2 days 10/09-10/11 2024: managed for DKA, thyroid nodule, malnutrition, cystitis. 10/12/2024 Uncontrolled type 2 diabetes mellitus with hyperglycemia (ICD-10 - E11.65) A1c 10/2024 - 13.6 Patient has uncontrolled diabetes The patient is currently on Novolin 70/30 25 unit BID prescribed at the hospital. I started pt on Metformin ER 500mg daily and glipizide 2.5mg daily. I recommend home blood sugar readings to be monitored frequently (daily fasting along with random (2 hours after meals). Pt was advised to log the reading with timings and to bring it on the next visit so we can adjust the dose of medications as needed.Hypoglycemia signs were reiterated and materials provided Medication adherence and blood sugar check were strongly emphazised to pt. 11/21/2024 Tobacco dependence (ICD-10 - F17.200) The patient is willing to reduce smoking and reports that the nicotine patch is helping. 10/12/2024 Thyroid nodule (ICD-10 - E04.1) TSH- 3.55 10/26/23: last thyroid nodule measures 9.6 x 4.5 x 7.8 cm. repeat thyroid U/S. will await result, I informed pt on the possibilty of referral to an hydraulic lift operator for thyroid management. if needed. 12/08/2024 Cigarette nicotine dependence without complication (ICD-10 - F17.210) 12/20/2024 Thyroid nodule (ICD-10 - E04.1) thyroid ultrasound: IMPRESSION:1. 16 mm TI-RADS 3 nodule left thyroid lobe for which follow-up ultrasound in1 year recommended. 2. Subcentimeter TI-RADS 3 and 4 nodules both thyroid lobes. No follow-up Patient reports a history of Graves' disease versus Marissa's thyroiditis and states she was previously under the care of an hydraulic lift operator. 12/08/2024 Financial difficulties (ICD-10 - Z59.9) 12/20/2024 Stroke-like symptoms (ICD-10 - R29.90) TIA education materials, including the ACT FAST guidelines, were provided to the patient to help her recognize potential symptoms of a transient ischemic attack. She was advised to go to the emergency room immediately if similar symptoms occur again. She [facility], and the patient was instructed to contact the neurologist's office to schedule an appointment 10/12/2024 Trichomonal cystitis and urethritis (ICD-10 - A59.03) pt started on metronidazole 500mg BID for 7 days at the hospital. 10/12/2024 Moderately severe depression (ICD-10 - F32.A) pt mentions her health is her primary reason for her depression, she will like to look better and feel better. she denies suicidal thought/intent. counseling was provided to pt. She wants to focus on improving her health at this time. will monitor and re-access pt. ER precaution and 911call discussed with pt and daughter in case of any suicidal attempt. 10/12/2024 Severe malnutrition (ICD-10 - E43) Pt was accessed by a workplace rehabilitation officer while admitted, she does not have insurance now and cannot follow up with an outpt international student counselor or outpt PT. She was provided meal recommendation and diet plans. I advised pt to follow those meal plans and adhere strictly to them. She was seen by PT/OT while in the hospital and provided strenghtening exercises which I advised pt to adhere to. 10/12/2024 Cigarette nicotine dependence without complication (ICD-10 - F17.210) Patient provided with [phone] phone line. Plan Of Treatment No Information Insurance Providers Payer Name Payer Address Payer Phone Subscriber Number Group Number Insured Name Patient Relationship to Insured Coverage Start Date Coverage End Date Medicaid [address] [place] [address] [id number] GwenAnayeli velasquez Self - patient is the insured 5 5 [facility] [address] [place] [address] [id number] Anayeli Hidalgo Self - patient is the insured 5 Medicaid [employer] after [place] [address] [place] [address] [id number] Anayeli Hidalgo Self - patient is the insured 5 Medical (General) History Surgical History Surgery Date(Month/Year) Hospitalization History Reason Date(Month/Year) High blood sugar Roff 10/16/24 High blood sugar 10/2024
--- OUTSIDE RECORDS SUMMARY | 2025-03-08 00:11 | XMS_ITS | Encounter Summary ---
Author Organization [facility] Address [address], [address] [place] [address] Care Team Providers Care Freight Loading Supervisor Name Role Phone Shelley Clancy MD Primary Care Provider [phone] Reason for Visit * Reason Onset Date Comments appointment 03/02/2025 Encounter Details Date Type Department Care Team ([facility] st Contact Info) Description 03/02/2025 Telephone [facility] Primary Care [address] [address] Brenda Trent LPN appointment Social History Tobacco Use Types Packs/Day Years Used Date Smoking Tobacco: Former Cigarettes Q uit: 04/04/2013 Passive Smoke Exposure: Past Smokeless Tobacco: Never Comments:1 ppd Alcohol Use Standard Drinks/Week Comments Yes 0 (1 standard drink = 0.6 oz pur e alcohol) seldom [facility] Utilities Answer Date Recorded In the past 12 months has e electric, gas, oil, or water [employer] threatened to shut off services in your [...] any time in the past 12 m [facility], were you homeless or living in a chcf (including now)? Yes 12/21/2024 Food Insecurity Answer [...] as of this encounter Plan of Treatment Upcoming Encounters Date Type Department Care Team (Late st Contact Info) Description 03/22/2025 2:20 PM EDT Office Visit [facility] NE[facility] Part of [address] [place] [id number] Josefa Martini MD [address] [place] [address] [address] [place] [address] Peripheral Neuropathy ; 1 mth follow up EEG, labs documented as of this encounter Visit Diagnoses Not on filedocumented in this encounter Care Teams Freight Loading Supervisor Relationship Specialty Start Date End Date Shelley Clancy MD [address] [place] [id number] PCP - General 12/21/24 documented as of this encounter
--- OUTSIDE RECORDS SUMMARY | 2025-03-08 00:11 | XMS_ITS | Encounter Summary ---
Author Organization [employer] Address [id number] [address] [place] [address] Care Team Providers Care Elementary Teacher Name Role Phone Julieth Rosa MD Primary Care Provider [phone] Encounter Details Date Type Department Care Team (Late st Contact Info) Description 10/19/2023 Telephone [facility] - Family Medicine [address] [place] [address] Yakov Doshi CMA Social History Tobacco Use Types Packs/Day [...] encounter Miscellaneous Notes * Telephone Encounter - Yakov Doshi CMA - 10/19/2023 11:26 AM EDT ----- Message from SVETA Doe sent at 10/19/2023 10:55 AM EDT ----- Her thyroid function worsened slightly. Please remind pt to take synthroid on empty stomach 1 hr before meals. I'm going to adjust her dose. Did she get her thyroid US? Her BG is still very high but her electrolytes look a little better. How is the m etformin going? * Telephone Encounter - Yakov Doshi CMA - 10/19/2023 11:26 AM EDT Pt called and states she is diligent about taking her thyroid medication and does take it on a empty stomach. No she did not get her ultrasound done. Also has not started her Metformin. documented in this encounter Plan of Treatment Not on file documented as of this encounter Visit Diagnoses Not on filedocumented in this encounter Additional Health Concerns Assessment Noted Time PHQ-9 Depression Total Score: 0 10/13/19 24 9:28 AM EDT A Body Mass Index follow-up plan has been documented for the patient 10/31/2020 6:54 PM EDT documented as of this encounter Care Teams Elementary Teacher Relationship Specialty Start Date End Date Julieth Rosa MD [address] [place] [address] PCP - General Family Medicine 01/10/25 documented as of this encounter
--- OUTSIDE RECORDS SUMMARY | 2025-03-08 00:12 | XMS_ITS | CCD ---
Author Organization [facility] Inform ion [facility] Care Team Providers Care Tack Puller Name Role Phone [facility] Other Primary Car e Provider Lenora Whitehead Unavailable [facility], DR TRAMMELL Primary Care Unavailable MARKER ., DR LUNA Admitting Unavailable MARKER ., DR LUNA Attending Unavailable MARKER ., DR LUNA Consulting Unavailable M[facility], DR TRAMMELL Primary Care Unavailable MARKER ., DR LUNA Admitting Unavailable MARKER ., DR LUNA Attending Unavailable MARKER ., DR LUNA Consulting Unavailable LORETA MACKENZIE Consulting Unavailable NORMA, GOEMZ L Referring Unavailable NORMA, GOMEZ L Primary Care Unavailable NORMA, GOMEZ L Referring Unavailable NORMA, GOMEZ L Primary Care Unavailable NORMA, GOMEZ L Referring Unavailable NORMA, GOMEZ L Primary Care Unavailable Norma [employer]ANCIAL SERVICES AGENT-WIRELESS SALES MANAGER, Gomez L Primary Care Provider Norma FINANCIAL SERVICES AGENT - WIRELESS SALES MANAGER, Gomez L Primary Care Provider Unavailable Primary Care Provider Unavailabl e Shelley Goldberg MD Primary Care Provider [phone] [facility] Other Primary [...] Unavailable Shelley Goldberg MD Primary Care Provider [phone] KROTZER, JESSICA Referring Unavailable NORMA, GOMEZ L [...] aftercare (6 sources) Patient encounter status; 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: [MCC (current) use of non-steroidal anti-inflammatories (NSAID)] Onset: [...] (3 sources) Drug therapy finding; 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: [Other long term care phlebotomist (current) drug therapy] Onset: 7 Resolved: 7 11-12-2016 Episodic Other aftercare (1 source) long term care phlebotomist current use of non-steroidal anti-inflammatory drug; 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: [MCC (current) use of non-steroidal anti-inflammatories (NSAID)] Onset: [...] Review: ELECTRONICALLY SIGNED. KAILEE FERNANDEZ M.D. Normal [facility] Comment on above: Performed By: #### I NSU #### [employer] [address] [place] [address] Reordering Clerk: Gee Royal MD [facility] [address] [place] [address] Reordering Clerk: Loreta Zelaya MD #### CPEP #### [address] [address] Reordering Clerk: Gee Royal MD Albumin [Mass/Vol] 4.1 g/dL Normal 3.2-5.2 [facility] Comment on above: Performed By: #### I NSU #### [address] [address] Reordering Clerk: Gee Royal MD [facility] [address] [place] [address] [place], [place] [id number] Reordering Clerk: Loreta Zelaya MD #### CPEP #### [address] [address] Reordering Clerk: Gee Royal MD Albumin, % 58 % Normal 56-66 [facility] Comment on above: Performed By: #### I NSU #### [address] [address] Reordering Clerk: Gee Royal MD [facility] [address] [place] [address] [place] [address] Reordering Clerk: Loreta Zelaya MD #### CPEP #### [address] [address] Reordering Clerk: Gee Royal MD Heejk-9-dqwpikeeo 0.3 g/dL Normal 0.1-0.4 [facility] Comment on above: Performed By: #### I NSU #### [address] [address] Reordering Clerk: Gee Royal MD [facility] [address] [place] [address] [place] [address] Reordering Clerk: Loreta Zelaya MD #### CPEP #### [address] [address] Reordering Clerk: Gee Royal MD Iapit-6-lvexdxhtn,% 4 % Normal 3-5 [facility] Comment on above: Performed By: #### I NSU #### [address] [address] Reordering Clerk: Gee Royal MD [facility] [address] [place] [address] [place], [place] [id number] Reordering Clerk: Loreta Zelaya MD #### CPEP #### [address] [address] Reordering Clerk: Gee Royal MD Cxzau-8-lymcsmsep 0.7 g/dL Normal 0.5-0.9 [facility] Comment on above: Performed By: #### I NSU #### [address] [address] Reordering Clerk: Gee Royal MD [facility] [address] [place] [address] [place] [address] Reordering Clerk: Loreta Zelaya MD #### CPEP #### [address] [address] Reordering Clerk: Gee Royal MD Wsawa-2-bcflgxsck,% 10 % Normal 7-12 [facility] Comment on above: Performed By: #### I NSU #### [address] [address] Reordering Clerk: Gee Royal MD [facility] [address] [place] [address] [place] [place], [place] [id number] Reordering Clerk: Loreta Zelaya MD #### CPEP #### [address] [address] Reordering Clerk: Gee Royal MD Beta-globulins 0.9 g/dL Normal 0.7-1.4 [facility] Comment on above: Performed By: #### I NSU #### [address] [address] Reordering Clerk: Gee Royal MD [facility] [address] [place] [address] Reordering Clerk: Loreta Zelaya MD #### CPEP #### [facility] [address] [place] [address] Reordering Clerk: Gee Royal MD Beta-globulins,% 13 % Normal 8-13 [facility] Comment on above: Performed By: #### I NSU #### [address] [address] Reordering Clerk: Gee Royal MD [facility] [address] [place] [address] [place], [place] [phone] Reordering Clerk: Lortea Zelaya MD #### CPEP #### [address] [address] Reordering Clerk: Gee Royal MD Gamma-globulins 1.1 g/dL Normal 0.5-1.5 [facility] Comment on above: Performed By: #### I NSU #### [address] [address] Reordering Clerk: Gee Royal MD [facility] [address] [place] [address] [place] [address] Reordering Clerk: Loreta Zelaya MD #### CPEP #### [address] [address] Reordering Clerk: Gee Royal MD Gamma-globulins,% 15 % Normal 11-19 [facility] Comment on above: Performed By: #### I NSU #### [address] [address] Reordering Clerk: Gee Royal MD [facility] [address] [place] [address] Reordering Clerk: Loreta Zelaya MD #### CPEP #### [address] [address] Reordering Clerk: Gee Royal MD Prot. Elect-Interp Normal electrophoretic pattern. Normal [facility] Comment on above: Performed By: #### I NSU #### [address] [address] Reordering Clerk: Gee Royal MD [address] [place] [address] Reordering Clerk: Loreta Zelaya MD #### CPEP #### [address] [address] Reordering Clerk: Gee Royal MD Total Prot. Sum 7.1 g/dL Normal 6.3-8.2 [facility] Comment on above: Performed By: #### I NSU #### [address] [address] Reordering Clerk: Gee Royal MD [address] [place] [id number] Reordering Clerk: Loreta Zelaya MD #### CPEP #### [address] [address] Reordering Clerk: Gee Royal MD Total Prot. Sum,% 100 % Normal 98-102 [facility] Comment on above: Performed By: #### I NSU #### [address] [address] Reordering Clerk: Gee Royal MD [address] [place] [address] Reordering Clerk: Loreta Zelaya MD #### CPEP #### [address] [address] Reordering Clerk: Gee Royal MD B12/Folate Panelon 5 Cobalamin (Vitamin B12) [Mass/Vol] 391 pg/mL Normal 232-1245 [facility] Comment on above: Performed By: #### B MP #### [facility] [address] [place] [address] Reordering Clerk: Loreta Zelaya MD Folic Acid 37.3 ng/mL High 4.8-24.2 [facility] Comment on above: Performed By: #### B MP #### [facility] [address] [place] [address] Reordering Clerk: Loreta Zelaya MD CBCon 02-08-2025 Erythrocyte distribution width (RBC) [Ratio] 13.3 % 11.8 - 14.4 % [facility] Hematocrit (Bld) [Volume fraction] 44.9 % 36.3 - 47.1 % [facility] Hemoglobin (Bld) [Mass/Vol] 14.9 g/dL 11.9 - 15.1 g/dL [facility] Interpretation and review of laboratory results Abnormal [facility] MCH (RBC) [Entitic mass] 29 pg 25.2 - 33.5 pg [facility] MCHC (RBC) [Mass/Vol] 33.2 g/dL 28.4 - 34.8 g/dL [facility] MCV (RBC) [Entitic vol] 87.5 fL 82.6 - 102.9 fL [facility] Nucleated RBC/100 WBC (Bld) [Ratio] 0 % 0.0 per 100 WBC [facility] Platelet mean volume (Bld) [Entitic vol] 9.7 fL 8.1 - 13.5 fL [facility] Platelets (Bld) [#/Vol] 306 10*3/uL [facility] RBC (Bld) [#/Vol] 5.13 10*6/uL High 3.95 - 5.1 1 m/uL [facility] WBC other (Bld) [#/Vol] 5.9 B [facility] Erythrocyte distribution width (RBC) [Ratio] 13.3 % Normal 11.8-14.4 [facility] Comment on above: Performed By: #### B MP #### [facility] [address] [place], [place] [id number] Reordering Clerk: Loreta Zelaya MD Hematocrit (Bld) [Volume fraction] 44.9 % Normal 36.3-47.1 [facility] Comment on above: Performed By: #### B MP #### [address] [place], [place] [id number] Reordering Clerk: Loreta Zelaya MD Hemoglobin (Bld) [Mass/Vol] 14.9 g/dL Normal 11.9-15.1 [facility] Comment on above: Performed By: #### B MP #### [address] [place], [facility]83 Reordering Clerk: Loreta Zelaya MD MCH (RBC) [Entitic mass] 29.0 pg Normal 25.2-33.5 [facility] Comment on above: Performed By: #### B MP #### [address] [place], [facility]83 Reordering Clerk: Loreta Zelaya MD MCHC (RBC) [Mass/Vol] 33.2 g/dL Normal 28.4-34.8 [facility] Comment on above: Performed By: #### B MP #### [address] [place], [place] 9[address]83 Reordering Clerk: Loreta Zelaya MD MCV (RBC) [Entitic vol] 87.5 fL Normal 82.6-102.9 [facility] Comment on above: Performed By: #### B MP #### [address] [place], [place] [id number] Reordering Clerk: Loreta Zelaya MD NRBC Automated 0.0 per 100 WBC Normal 0.0 [facility] Comment on above: Performed By: #### B MP #### [address] [place] [address] Reordering Clerk: Loreta Zelaya MD Platelet mean volume (Bld) [Entitic vol] 9.7 fL Normal 8.1-13.5 [facility] Comment on above: Performed By: #### B MP #### [facility] [address] [place] [address] Reordering Clerk: Loreta Zelaya MD Platelets (Bld) [#/Vol] 306 10*3/uL Normal 138-453 [facility] Comment on above: Performed By: #### B MP #### [facility] [address] [place], [place] [phone] Reordering Clerk: Loreta Zelaya MD RBC (Bld) [#/Vol] 5.13 10*6/uL High 3.95-5.11 [facility] Comment on above: Performed By: #### B MP #### [facility] [address] [place] [address] Reordering Clerk: Loreta Zelaya MD WBC (Bld) [#/Vol] 5.9 10*3/uL Normal 3.5-11.3 [facility] Comment on above: Performed By: #### B MP #### [facility] [address] [place] [address] Reordering Clerk: Loreta Zelaya MD CKon 02-08-2025 CK [Catalytic activity/Vol] 26 U/L 26 - 192 U/L [facility] Creatine Kinaseon 02-08-2025 CK [Catalytic activity/Vol] 26 U/L Normal 26-192 [facility] Comment on above: Performed By: #### C DP #### [facility] [address] [place] [address] Reordering Clerk: Loreta Zelaya MD Estradiolon 02-08-2025 Estradiol 66.0 pg/mL [facility] Comment on above: FEMALES: Normally menstruating Luteal phase 60-232 Follicular phase 31-90 Midcycle phase 60-533 Postmenopausal (untreated) <138 Fulvestrant treatment will show an increased estradiol concentration with this methodology. Alternate methodologies are available upon request. Estradiol 66.0 pg/mL Normal [facility] Comment on above: Result Comment: FEMALES: Normally menstruating Luteal phase 60-232 Follicular phase 31-90 Midcycle phase 60-533 Postmenopausal (untreated) <138 Fulvestrant treatment will show an increased estradiol concentration with this methodology. Alternate methodologies are available upon request. Performed By: #### B MP #### [facility] [address] [place] [address] Reordering Clerk: Loreta Zelaya MD Follicle Stim. Hormon 2024 Follicle Stim. Horm 4.8 mIU/mL Normal [facility] Comment on above: Result Comment: Refe rence Range: Male: 1.5-12.4 Ovulating Female: Follicular Phase 3.5-12.5 Ovulation Phase 4.7-21.5 Luteal Phase 1.7-7.7 Postmenopausal Female: 25.8-134.8 Performed By: #### V BG #### [facility] [address] [place] [address] Reordering Clerk: Loreta Zelaya MD Follicle Stimulating Hormone on 02-08-2025 Follitropin Qn 4.8 m[IU]/mL mIU/mL [facility] Comment on above: Reference Range: Male: 1.5-12.4 Ovulating Female: Follicular Phase 3.5-12.5 Ovulation Phase 4.7-21.5 Luteal Phase 1.7-7.7 Postmenopausal Female: 25.8-134.8 HCG, Quanton 02-08-2025 HCG, Quant <0.2 Normal 0-7 [facility] Comment on above: Result Comment: Non-preg premeno <=5 Postmeno <=8 Male <=3 If HCG results do not concur with clinical observations, additional testing to confirm results is recommended. Performed By: #### B MP #### [facility] [address] [place] [id number] Reordering Clerk: Loreta Zelaya MD HCG, Quantitative, on 02-08-2025 HCG.beta subunit Qn [facility] Comment on above: Non-preg premeno <=5 Postmeno <=8 Male <=3 If HCG results do not concur with clinical observations, additional testing to confirm results is recommended. [facility] Luteinizing Hormoneon 2024 Lutropin Qn 2.8 m[IU]/mL [facility] Comment on above: Reference Range: Male: 1.7-8.6 Ovulating Female: Follicular Phase 2.4-12.6 Ovulation Phase 14.0-95.6 Luteal Phase 1.0-11.4 Postmenopausal Female: 7.7-58.5 Luteinizing Hormone 2.8 mIU/mL Normal 1.7-8.6 [facility] Comment on above: Result Comment: Refe rence Range: Male: 1.7-8.6 Ovulating Female: Follicular Phase 2.4-12.6 Ovulation Phase 14.0-95.6 Luteal Phase 1.0-11.4 Postmenopausal Female: 7.7-58.5 Performed By: #### V BG #### [facility] [address] [place] [address] Reordering Clerk: Loreta Zelaya MD No Panel Informationon 02-08 [facility] Progesteroneon 02-08-2025 Progesterone [Mass/Vol] 2.57 ng/mL B [facility] Comment on above: Female: Follicular phase <0.19 ng/mL Ovulation phase 0.06-4.14 ng/mL Luteal phase 4.11-14.5 ng/mL Postmenopausal <0.13 ng/mL Progesterone 2.57 ng/mL Normal [facility] Comment on above: Result Comment: Female: Follicular phase <0.19 ng/mL Ovulation phase 0.06-4.14 ng/mL Luteal phase 4.11-14.5 ng/mL Postmenopausal <0.13 ng/mL Performed By: #### V BG #### [facility] [address] [place] [address] Reordering Clerk: Loreta Zelaya MD Prolactinon 02-08-2025 Interpretation and review of laboratory results Abnormal [facility] Prolactin [Mass/Vol] 4.73 ng/mL Low 4.79 - 23.3 ng/mL [facility] Comment on above: The presence of macr oprolactin may cause interference in female patients with various endocrinological diseases or during . [facility] Prolactin 4.73 ng/mL Low 4.79-23.3 [facility] Comment on above: Result Comment: The presence of macroprolactin may cause interference in female patients with various endocrinological diseases or during . Performed By: #### B MP #### [address] [place], [place] [phone] Reordering Clerk: Loerta Zelaya MD Prot. Electroph, Blon 2024 Protein [Mass/Vol] 7.0 g/dL Normal 6.6-8.7 [facility] Comment on above: Performed By: #### I NSU #### [address] [id number] Reordering Clerk: Gee Royal MD [address] [place] [id number] Reordering Clerk: Loreta Zelaya MD #### CPEP #### [place] [address] [place], [place] 8639808 Reordering Clerk: Gee Royal MD Sedimentation Rateon 025 ESR Photometric method (Bld) [Velocity] 21 High [facility] Interpretation and review of laboratory results Abnormal [facility] Sedimentation Rate 21 mm/Hr High 0-20 [facility] Comment on above: Performed By: #### C DP #### [address] [place] [address] Reordering Clerk: Loreta Zelaya MD T4, Freeon 02-08-2025 Free T4 [Mass/Vol] 0.5 ng/dL Low 0.92 - 1. 68 ng/dL [facility] Interpretation and review of laboratory results Abnormal [facility] TSHon 02-08-2025 Interpretation and review of laboratory results Abnormal [facility] TSH Qn 15.5 m[IU]/L High [facility] Testosteroneon 02-08-2025 Testosterone [Mass/Vol] 14 ng/dL 8 - 48 ng/dL [facility] Testosterone, Totalon 2024 Testosterone [Mass/Vol] 14 ng/dL Normal 8-48 M [facility] Comment on above: Performed By: #### V BG #### [facility] [address] [place] [address] Reordering Clerk: Loreta Zelaya MD Thyroid Stim. Horm.on 2024 Thyroid Stim. Horm. 15.50 uIU/mL High 0.27-4.20 [facility] Comment on above: Performed By: #### B MP #### [facility] [address] [place], [place] [id number] Reordering Clerk: Loreta Zelaya MD Thyroxine, Freeon 02-08-2025 Thyroxine, Free 0.5 ng/dL Low 0.92-1.68 [facility] Comment on above: Performed By: #### V BG #### [facility] [address] [place], [place] [id number] Reordering Clerk: Loreta Zelaya MD Vitamin B12 & Folateon 02-08 Cobalamin (Vitamin B12) [Mass/Vol] 391 pg/mL 232 - 1245 pg/mL [facility] Folate [Mass/Vol] 37.3 ng/mL High 4.8 - 24.2 ng/mL [facility] Interpretation and review of laboratory results Abnormal [facility] ACETONE,(BETAHYDROXYBUTYRATE , KETONE) QUANTITATIVE SERUMon 01-10-2025 BETAHYDROXYBUTYRATE 0.13 mmol/L Normal 0.02-0.27 [facility] Comment on above: Performed By: #### K ETB #### [facility] ([address] [address] VIR B-TYPE NATRIURETIC PEPTIDEon 01-10-2025 Natriuretic peptide B (Bld) [Mass/Vol] 16 pg/mL Normal <=100 [facility] Comment on above: Performed By: #### B STEMHOLE BORER #### [facility] ([address] [place] [address] VIR BEDSIDE GLUCOSEon 01-10-2025 Glucose [Mass/Vol] 306 mg/dL High 65-99 [facility] Comment on above: Performed By: #### B EDG #### [facility] ([address] [place] [place] [address] VIR Glucose [Mass/Vol] 476 mg/dL Critically high 65-99 [facility] Comment on above: Performed By: #### B EDG #### [facility] ([address] [place] [place] [address] VIR CBC WITH AUTO DIFFERENTIALon 01-10-2025 BASOPHILS ABSOLUTE COUNT (10*3/UL) BY AUTOMATED COUNT 0.0 10*3/uL Normal 0.0-0.2 [facility] Comment on above: Performed By: #### C BCA #### [facility] ([address] [place] [place] [address] VIR BASOPHILS RELATIVE PERCENT BY AUTOMATED COUNT 0.6 % Normal [facility] Comment on above: Performed By: #### C BCA #### [facility] ([address] [place] [place] [address] VIR CELLAVISION DIFFERENTIAL TYPE AUTOMATED DIFFERENTIAL Normal [facility] Comment on above: Performed By: #### C BCA #### [facility] ([address] [place] [place] [address] VIR Eosinophils (Bld) [#/Vol] 0.1 10*3/uL Normal 0.0-0.4 [facility] Comment on above: Performed By: #### C BCA #### [facility] ([address] [place] [address] VIR EOSINOPHILS RELATIVE PERCENT BY AUTOMATED COUNT 2.1 % Normal [facility] Comment on above: Performed By: #### C BCA #### [facility] ([address] [place] [address] VIR Erythrocyte distribution width (RBC) [Ratio] 13.1 % Normal 11.5-15 [facility] Comment on above: Performed By: #### C BCA #### [facility] ([address] [place] [place] [address] VIR Hematocrit (Bld) [Volume fraction] 41.3 % Normal 35-47 [facility] Comment on above: Performed By: #### C BCA #### [facility] ([address] [place] [address] VIR Hemoglobin (Bld) [Mass/Vol] 14.0 g/dL Normal 11.7-15.5 [facility] Comment on above: Performed By: #### C BCA #### [facility] ([address] [address] VIR LYMPHOCYTES ABSOLUTE COUNT (10*3/UL) BY AUTOMATED COUNT 1.9 10*3/uL Normal 1.0-3.5 [facility] Comment on above: Performed By: #### C BCA #### [facility] ([address] [place] [place] [address] VIR LYMPHOCYTES RELATIVE PERCENT BY AUTOMATED COUNT 31.7 % Normal [facility] Comment on above: Performed By: #### C BCA #### [facility] ([address] [place] [place] [address] VIR MCH (RBC) [Entitic mass] 29.1 pg Normal 27-34 [facility] Comment on above: Performed By: #### C BCA #### [facility] ([address] [place] [address] VIR MCHC (RBC) [Mass/Vol] 33.9 g/dL Normal 32-36 [facility] Comment on above: Performed By: #### C BCA #### [facility] ([address] [place] [address] VIR MCV (RBC) [Entitic vol] 86 fL Normal 80-100 [facility] Comment on above: Performed By: #### C BCA #### [facility] ([address] [place] [address] VIR MONOCYTES ABSOLUTE COUNT (10*3/UL) BY AUTOMATED COUNT 0.4 10*3/uL Normal 0.0-0.9 [facility] Comment on above: Performed By: #### C BCA #### [facility] ([address] [place] [address] VIR MONOCYTES RELATIVE PERCENT BY AUTOMATED COUNT 5.9 % Normal [facility] Comment on above: Performed By: #### C BCA #### [facility] ([address] [place] [address] VIR NEUTROPHILS ABSOLUTE COUNT BY AUTOMATED COUNT 3.6 10*3/uL Normal 1.5-6.6 [facility] Comment on above: Performed By: #### C BCA #### [facility] ([address] [place] [address] VIR NEUTROPHILS RELATIVE PERCENT BY AUTOMATED COUNT 59.7 % Normal [facility] Comment on above: Performed By: #### C BCA #### [facility] ([address] [place] [address] VIR Platelet mean volume (Bld) [Entitic vol] 7.9 fL Normal 7-12 [facility] Comment on above: Performed By: #### C BCA #### [facility] ([address] [place] [address] VIR Platelets (Bld) [#/Vol] 256 10*3/uL Normal 150-450 [facility] Comment on above: Performed By: #### C BCA #### [facility] ([address] [place] [address] VIR RBC COUNT 4.82 X10E12/L Normal 3.8-5.2 [facility] Comment on above: Performed By: #### C BCA #### [facility] ([address] [place] [address] VIR WBC (Bld) [#/Vol] 6.0 10*3/uL Normal 4-11 [facility] Comment on above: Performed By: #### C BCA #### [facility] ([address] [place] [address] VIR COMPREHENSIVE METABOLIC PANE [place] 01-10-2025 Albumin [Mass/Vol] 3.4 g/dL Normal 3.2-5.3 [facility] Comment on above: Performed By: #### C MP #### [facility] ([address] [place] [address] VIR ALP [Catalytic activity/Vol] 118 U/L Normal 39-130 [facility] Comment on above: Performed By: #### C MP #### [facility] ([address] [place] [address] VIR ALT [Catalytic activity/Vol] 32 U/L High <=31 [facility] Comment on above: Performed By: #### C MP #### [facility] ([address] [place] [address] VIR Anion gap [Moles/Vol] 6 mmol/L Normal 5-15 [facility] Comment on above: Performed By: #### C MP #### [facility] ([address] [place] [address] VIR AST [Catalytic activity/Vol] 14 U/L Normal <=41 [facility] Comment on above: Performed By: #### C MP #### [facility] ([address] [place] [address] VIR Bilirubin [Mass/Vol] 0.4 mg/dL Normal 0.3-1.2 [facility] Comment on above: Performed By: #### C MP #### [facility] ([address] [place] [address] VIR Calcium [Mass/Vol] 8.6 mg/dL Normal 8.5-10.5 [facility] Comment on above: Performed By: #### C MP #### [facility] ([address] [place] [address] VIR Chloride [Moles/Vol] 101 mmol/L Normal 98-109 [facility] Comment on above: Performed By: #### C MP #### [facility] ([address] [place] [place] [address] VIR CO2 [Moles/Vol] 25 mmol/L Normal 22-32 [facility] Comment on above: Performed By: #### C MP #### [facility] ([address] [place] [address] VIR Creatinine [Mass/Vol] 0.45 mg/dL Normal 0.40-1.00 [facility] Comment on above: Result Comment: METH OD TRACEABLE TO IDMS STANDARD Performed By: #### C MP #### [facility] ([address] [place] [place] [address] VIR EGFR (CKD-EPI) NON-RACE DEPENDENT >^90 Normal >=60 [facility] Comment on above: Result Comment: Repo rted eGFR is based on the CKD-EPI 2020 equation that does not use a race coefficient. Performed By: #### C MP #### [facility] ([address] [place] [address] VIR Glucose [Mass/Vol] 401 mg/dL Critically high 65-99 [facility] Comment on above: Performed By: #### C MP #### [facility] ([address] [place] [address] VIR Potassium [Moles/Vol] 4.1 mmol/L Normal 3.5-5.0 [facility] Comment on above: Performed By: #### C MP #### [facility] ([address] [place] [address] VIR Protein [Mass/Vol] 6.2 g/dL Normal 6.0-8.0 [facility] Comment on above: Performed By: #### C MP #### [facility] ([address] [place] [address] VIR Sodium [Moles/Vol] 132 mmol/L Low 134-146 [facility] Comment on above: Performed By: #### C MP #### [facility] ([address] [place] [address] VIR Urea nitrogen [Mass/Vol] 14 mg/dL Normal 5-23 [facility] Comment on above: Performed By: #### C MP #### [facility] ([address] [place] [address] VIR LACTATE W/ REFLEXon 01-11-20 LACTATE W/REFLEX 1.3 mmol/L Normal 0.4-2.0 [facility] Comment on above: Order Comment: Resul t did not trigger repeat Lactate, re-order if needed. Performed By: #### L ACTS #### [facility] ([address] [place] [address] VIR MAGNESIUMon 01-10-2025 Magnesium [Mass/Vol] 1.8 mg/dL Normal 1.8-2.6 [facility] Comment on above: Performed By: #### M G #### [facility] ([place] [address] [place] [address] VIR PH, VENOUSon 01-10-2025 PH VENOUS 7.439 High 7.320-7.420 [facility] Comment on above: Performed By: #### P HV #### [facility] ([place] [address] [place] [address] VIR POCT NURSING URINE MACROSCOP IC UAon 01-10-2025 BILIRUBIN RICKY Negative Normal Negative [facility] Comment on above: Performed By: #### N UM #### [facility] ([place] [address] [place] [address] VIR BLOOD/HGB RICKY Negative Normal Negative [facility] Comment on above: Performed By: #### N UM #### [facility] ([address] [place] [place] [address] VIR GLUCOSE RICKY >=1000 mg/dL Abnormal Negative [facility] Comment on above: Performed By: #### N UM #### [facility] ([place] [address] [place] [address] VIR KETONES RICKY Negative Normal Negative [facility] Comment on above: Performed By: #### N UM #### [facility] ([place] [address] [place] [address] VIR LEUKOCYTE ESTERASE RICKY Negative Normal Negative [facility] Comment on above: Performed By: #### N UM #### [facility] ([place] [address] [place] [address] VIR NITRITE RICKY Negative Normal Negative [facility] Comment on above: Performed By: #### N UM #### [facility] ([place] [address] [place] [address] VIR PH RICKY 7.0 Normal 5.0, 6.0, 6.5, 7.0, 7.5, 8.0, 8.5, 5.5 [facility] Comment on above: Performed By: #### N UM #### [facility] ([facility]) [address] [place] [address] VIR PROTEIN RICKY Negative Normal Negative [facility] Comment on above: Performed By: #### N UM #### [facility] ([facility]) [address] [place] [address] [place] [address] VIR SPECIFIC GRAVITY RICKY 1.015 Normal 1.010, 1.015, 1.020, 1.025 [facility] Comment on above: Performed By: #### N UM #### [facility] ([facility]) [address] [place] [address] [place] [address] VIR UROBILINOGEN RICKY 0.2 E.U./dL Normal [facility] Comment on above: Performed By: #### N UM #### [facility] ([address] [place] [address] VIR DBT Breast - bilateral diagn osticon [...] to the patient regarding the results. [employer] recommends annual mammograms for women 40 years and older. Performing Facility: [place] [address] [facility] Bethany Ley MD - 12/25/2024 EXAMINATION: DIAGNOSTIC [...] to the patient regarding the results. [employer] recommends annual mammograms for women 40 years and older. Performing Facility: [place] [address] [facility] Radiology Study observation (narrative) Milton hernandez [facility] HIPOLITO DIGITAL DIAGNOSTIC BILATERALon 12-25-2024 [facility] HIPOLITO DIGITAL DIAGNOSTIC BILATERAL EXAMINATION: DIAGNOSTIC DIGITAL [...] to the patient regarding the results. [employer] recommends annual mammograms for women 40 years and older. Performing Facility: [place] [address] Interpreted by: Bethany Melchor MD Signed by: Bethany Melchor MD 12/25/24 Final result Normal [facility] No Panel Informationon 12-25 No evidence of [...] to the patient regarding the results. [employer] recommends annual mammograms for women 40 years and older. [facility] RIS CONSOLIDATED EXAMINATION: DIAGNOSTIC DIGITAL BILATERAL BREASTS [...] mass lesions. No ductal ectasia is noted. [facility] Bethany Ley MD - 12/25/2024 EXAMINATION: DIAGNOSTIC [...] to the patient regarding the results. [employer] recommends annual mammograms for women 40 years and older. [facility] Radiology Study observation (narrative) [facility] No Panel InformationOrdered By: Bethany Melchor on 12-25-2024 [facility] Work Phone: US BREAST LIMITED LEFTon US [...] to the patient regarding the results. [employer] recommends annual mammograms for women 40 years and older. Interpreted by: Bethany Melchor MD Signed by: Bethany Melchor MD 12/25/24 Final result Normal [facility] US BREAST LIMITED RIGHTon US BREAST LIMITED [...] to the patient regarding the results. [employer] recommends annual mammograms for women 40 years and older. Interpreted by: Bethany Melchor MD Signed by: Bethany Melchor MD 12/25/24 Final result Normal [facility] CBC auto differentialon - Basophils (Bld) [#/Vol] 0.05 10*3/uL [facility] Basophils/100 WBC (Bld) 1 % 0 - 2 % B on [facility] Eosinophils (Bld) [#/Vol] 0.05 10*3/uL [facility] Eosinophils/100 WBC (Bld) 1 % 1 - 4 % [facility] Erythrocyte distribution width (RBC) [Ratio] 11.6 % Low 11.8 - 14.4 % [facility] Hematocrit (Bld) [Volume fraction] 41 % 36.3 - 47.1 % [facility] Hemoglobin (Bld) [Mass/Vol] 13.6 g/dL 11.9 - 15.1 g/dL [facility] Immature granulocytes (Bld) [#/Vol] 0 10*3/uL [facility] Immature granulocytes/100 WBC (Bld) 0 % 0 [facility] Interpretation and review of laboratory results Abnormal [facility] Lymphocytes/100 WBC (Bld) 56 % High 24 - 43 % [facility] Lymphocytes/100 WBC (Bld) 2.92 % [facility] MCH (RBC) [Entitic mass] 29.9 pg 25.2 - 33.5 pg [facility] MCHC (RBC) [Mass/Vol] 33.2 g/dL 28.4 - 34.8 g/dL [facility] MCV (RBC) [Entitic vol] 90.1 fL 82.6 - 102.9 fL [facility] Monocytes/100 WBC (Bld) 2 % Low 3 - 12 % B on [facility] Monocytes/100 WBC (Bld) 0.1 % B on [facility] Morphology Jerson (Bld) [Interp] Normal [facility] Neutrophils/100 WBC (Bld) 40 % 36 - 65 % [facility] Nucleated RBC/100 WBC (Bld) [Ratio] 0 % 0.0 per 100 WBC [facility] Platelet mean volume (Bld) [Entitic vol] 9.6 fL 8.1 - 13.5 fL [facility] Platelets (Bld) [#/Vol] 262 10*3/uL [facility] RBC (Bld) [#/Vol] 4.55 10*6/uL 3.95 - 5.1 1 m/uL [facility] Segmented neutrophils/100 WBC (Bld) 2.08 % [facility] WBC other (Bld) [#/Vol] 5.2 B on [facility] CBC with Diffon 12-21-2024 Abs. Basophil 0.05 k/uL Normal 0.0-0.2 [facility] Comment on above: Performed By: #### V BG #### [facility] [address] [place] [address] [place] [address] Reordering Clerk: Loreta Zelaya MD Abs.Imm.Granulocyte 0.00 k/uL Normal 0.00-0.30 [facility] Comment on above: Performed By: #### V BG #### [facility] [address] [place] [address] Reordering Clerk: Loreta Zelaya MD Abs.Neutrophil (Seg) 2.08 k/uL Normal 1.50-8.10 [facility] Comment on above: Performed By: #### V BG #### [facility] [address] [place], [place] [id number] Reordering Clerk: Loreta Zelaya MD Basophils/100 WBC (Bld) 1 % Normal 0-2 [facility] Comment on above: Performed By: #### V BG #### [facility] [address] [place], [place] [id number] Reordering Clerk: Loreta Zelaya MD Eosinophils (Bld) [#/Vol] 0.05 10*3/uL Normal 0.00-0.44 [facility] Comment on above: Performed By: #### V BG #### [facility] [address] [place], [facility]83 Reordering Clerk: Loreta Zelaya MD Eosinophils/100 WBC (Bld) 1 % Normal 1-4 [facility] Comment on above: Performed By: #### V BG #### [facility] [address] [place] [address] [place], [facility]83 Reordering Clerk: Loreta Zelaya MD Immature granulocytes/100 WBC (Bld) 0 % Normal 0 [facility] Comment on above: Performed By: #### V BG #### [facility] [address] [place] [address] Dr[place], [facility]83 Reordering Clerk: Loreta Zelaya MD Lymphocytes (Bld) [#/Vol] 2.92 10*3/uL Normal 1.10-3.70 [facility] Comment on above: Performed By: #### V BG #### [facility] [address] [place], [place] [id number] Reordering Clerk: Loreta Zelaya MD Lymphocytes/100 WBC (Bld) 56 % High 24-43 [facility] Comment on above: Performed By: #### V BG #### [facility] [address] [place], [place] [id number] Reordering Clerk: Loreta Zelaya MD Monocytes (Bld) [#/Vol] 0.10 10*3/uL Normal 0.10-1.20 [facility] Comment on above: Performed By: #### V BG #### [facility] [address] [place], [place] [id number] Reordering Clerk: Loreta Zelaya MD Monocytes/100 WBC (Bld) 2 % Low 3-12 [facility] Comment on above: Performed By: #### V BG #### [facility] [address] [place], [facility]83 Reordering Clerk: Loreta Zelaya MD Morphology Jerson (Bld) [Interp] Normal Normal [facility] Comment on above: Performed By: #### V BG #### [address] [place], [facility]83 Reordering Clerk: Loreta Zelaya MD Neutrophil (Seg) 40 % Normal 36-65 [facility] Comment on above: Performed By: #### V BG #### [address] [place], [facility]83 Reordering Clerk: Loreta Zelaya MD Erythrocyte distribution width (RBC) [Ratio] 11.6 % Low 11.8-14.4 [facility] Comment on above: Performed By: #### V BG #### [address] [place], [facility]83 Reordering Clerk: Loreta Zelaya MD Hematocrit (Bld) [Volume fraction] 41.0 % Normal 36.3-47.1 [facility] Comment on above: Performed By: #### V BG #### [address] [place], [place] [id number] Reordering Clerk: Loreta Zelaya MD Hemoglobin (Bld) [Mass/Vol] 13.6 g/dL Normal 11.9-15.1 [facility] Comment on above: Performed By: #### V BG #### [address] [place], [facility]83 Reordering Clerk: Loreta Zelaya MD MCH (RBC) [Entitic mass] 29.9 pg Normal 25.2-33.5 [facility] Comment on above: Performed By: #### V BG #### [address] [place] [address] Reordering Clerk: Loreta Zelaya MD MCHC (RBC) [Mass/Vol] 33.2 g/dL Normal 28.4-34.8 [facility] Comment on above: Performed By: #### V BG #### [address] [place], [place] [id number] Reordering Clerk: Loreta Zelaya MD MCV (RBC) [Entitic vol] 90.1 fL Normal 82.6-102.9 [facility] Comment on above: Performed By: #### V BG #### [address] [place], [place] [id number] Reordering Clerk: Loreta Zelaya MD NRBC Automated 0.0 per 100 WBC Normal 0.0 [facility] Comment on above: Performed By: #### V BG #### [address] [place] [address] Reordering Clerk: Loreta Zelaya MD Platelet mean volume (Bld) [Entitic vol] 9.6 fL Normal 8.1-13.5 [facility] Comment on above: Performed By: #### V BG #### [address] [place] [address] Reordering Clerk: Loreta Zelaya MD Platelets (Bld) [#/Vol] 262 10*3/uL Normal 138-453 [facility] Comment on above: Performed By: #### V BG #### [address] [place] [address] Reordering Clerk: Loreta Zelaya MD RBC (Bld) [#/Vol] 4.55 10*6/uL Normal 3.95-5.11 [facility] Comment on above: Performed By: #### V BG #### [facility] [address] [place], [place] [id number] Reordering Clerk: Loreta Zelaya MD WBC (Bld) [#/Vol] 5.2 10*3/uL Normal 3.5-11.3 [facility] Comment on above: Performed By: #### V BG #### [facility] [address] [place], [place] [id number] Reordering Clerk: Loreta Zelaya MD Comp Metabolic Pr/rfx MGon 0 6- Albumin [Mass/Vol] 3.6 g/dL Normal 3.5-5.2 [facility] Comment on above: Performed By: #### V BG #### [address] [place] [id number] Reordering Clerk: Loreta Zelaya MD Albumin/Glob Ratio 1.5 Normal 1.0-2.5 [facility] Comment on above: Performed By: #### V BG #### [address] [place], [place] [id number] Reordering Clerk: Loreta Zelaya MD Alkaline Phos 103 U/L Normal 35-104 [facility] Comment on above: Performed By: #### V BG #### [facility] [address] [place], [place] [address] Reordering Clerk: Loreta Zelaya MD ALT [Catalytic activity/Vol] 19 U/L Normal 10-35 [facility] Comment on above: Performed By: #### V BG #### [facility] [address] [place] [address] Reordering Clerk: Loreta Zelaya MD Anion gap [Moles/Vol] 10 mmol/L Normal 9-16 [facility] Comment on above: Performed By: #### V BG #### [facility] [address] [place], [place] [id number] Reordering Clerk: Loreta Zelaya MD AST [Catalytic activity/Vol] 13 U/L Normal 10-35 [facility] Comment on above: Performed By: #### V BG #### [facility] [address] [place], [place] [id number] Reordering Clerk: Loreta Zelaya MD Bilirubin [Mass/Vol] 0.2 mg/dL Normal 0.00-1.20 [facility] Comment on above: Performed By: #### V BG #### [facility] [address] [place], [place] [id number] Reordering Clerk: Loreta Zelaya MD BUN/CRE Ratio 35 High 9-20 [facility] Comment on above: Performed By: #### V BG #### [facility] [address] [place], [place] [address]24[address]83 Reordering Clerk: Loreta Zelaya MD Calcium [Mass/Vol] 8.4 mg/dL Low 8.6-10.4 [facility] Comment on above: Performed By: #### V BG #### [facility] [address] [place], [place] [id number] Reordering Clerk: Loreta Zelaya MD Chloride [Moles/Vol] 107 mmol/L Normal 98-107 [facility] Comment on above: Performed By: #### V BG #### [facility] [address] [place], [place] [id number] Reordering Clerk: Loreta Zelaya MD CO2 [Moles/Vol] 19 mmol/L Low 20-31 [facility] Comment on above: Performed By: #### V BG #### [facility] [address] [place], [place] [id number] Reordering Clerk: Loreta Zelaya MD Creatinine [Mass/Vol] 0.4 mg/dL Low 0.50-0.90 [facility] Comment on above: Performed By: #### V BG #### [facility] [address] [place] [address] Reordering Clerk: Loreta Zelaya MD GFR/1.73 sq M.predicted among non-blacks MDRD (S/P/Bld) [Vol rate/Area] mL/min/{1.73_m2} Normal >60 [facility] Comment on above: Result Comment: These results [...] secretion. Performed By: #### V BG #### [facility] [address] [place] [address] [place] [address] Reordering Clerk: Loreta Zelaya MD Glucose [Mass/Vol] 146 mg/dL High 74-99 [facility] Comment on above: Performed By: #### V BG #### [facility] [address] [place] [address] Reordering Clerk: Loreta Zelaya MD Potassium [Moles/Vol] 3.8 mmol/L Normal 3.7-5.3 [facility] Comment on above: Performed By: #### V BG #### [facility] [address] [place] [address] [place] [address] Reordering Clerk: Loreta Zelaya MD Protein [Mass/Vol] 6.0 g/dL Low 6.6-8.7 [facility] Comment on above: Performed By: #### V BG #### [facility] [address] [place] [address] [place] [address] Reordering Clerk: Loreta Zelaya MD Sodium [Moles/Vol] 136 mmol/L Normal 136-145 [facility] Comment on above: Performed By: #### V BG #### [facility] [address] [place] [address] Reordering Clerk: Loreta Zleaya MD Urea nitrogen [Mass/Vol] 14 mg/dL Normal 6-20 [facility] Comment on above: Performed By: #### V BG #### [facility] [address] [place] [address] Reordering Clerk: Loreta Zelaya MD Comprehensive Metabolic Pane l w/ Reflex to MGon 12-21-2024 Albumin [Mass/Vol] 3.6 g/dL 3.5 - 5.2 g/dL [facility] Albumin/Globulin [Mass ratio] 1.5 {ratio} 1.0 - 2.5 [facility] ALP [Catalytic activity/Vol] 103 U/L 35 - 104 U/L [facility] ALT [Catalytic activity/Vol] 19 U/L 10 - 35 U/L [facility] Anion gap [Moles/Vol] 10 mmol/L 9 - 16 mmol/L [facility] AST [Catalytic activity/Vol] 13 U/L 10 - 35 U/L [facility] Bilirubin [Mass/Vol] 0.2 mg/dL 0.00 - 1.20 mg/dL [facility] Calcium [Mass/Vol] 8.4 mg/dL Low 8.6 - 10. 4 mg/dL [facility] Chloride [Moles/Vol] 107 mmol/L 98 - 10 7 mmol/L [facility] CO2 [Moles/Vol] 19 mmol/L Low 20 - 31 mmol/L [facility] Creatinine [Mass/Vol] 0.4 mg/dL Low 0.50 - 0.90 mg/dL [facility] Est, Glom Filt Rate - PINF [facility] Comment on above: These results are [...] 146 mg/dL High 74 - 99 mg/dL [employer] Interpretation and review of laboratory results Abnormal [employer] Potassium [Moles/Vol] 3.8 mmol/L 3.7 - 5.3 mmol/L [employer] Protein [Mass/Vol] 6 g/dL Low 6.6 - 8.7 g/dL [employer] Sodium [Moles/Vol] 136 mmol/L 136 - 145 mmol/L [employer] Urea nitrogen [Mass/Vol] 14 mg/dL 6 - 20 mg/dL [employer] Urea nitrogen/Creatinine [Mass ratio] 35 mg/mg High 9 - 20 [employer] [facility] EKG 12 Lead (Chest Pain)Orde red By: Mode Coffman on 12-21-2024 Atrial Rate 88 BPM [employer] Work Phone: P [place] 51 degrees [employer] Work Phone: P-R Interval 138 ms [employer] Work Phone: Q-T Interval 392 ms [employer] Work Phone: QRS Duration 82 ms [employer] Work Phone: QTc Calculation (Bazett) 474 ms [employer] Work Phone: R [place] 107 degrees [employer] Work Phone: T [place] 55 degrees [employer] Work Phone: Ventricular Rate 88 BPM [employer] Work Phone: [employer] Work Phone: EKG 12 Lead (Chest Pain)on 0 12-21-2024 Normal sinus rhythm Rightward axis Borderline ECG ECG not diagnostic for Acute Coronary Syndrome; consider clinical findings When compared with ECG of 16-Oct-2024 20:05, QRS axis Shifted right Confirmed by Mode Coffman ([id number]) on 12/21/2024 8:47:09 AM [facility] Mode Coffman MD - 12/21/2024 Normal sinus rhythm Rightward axis Borderline ECG ECG not diagnostic for Acute Coronary Syndrome; consider clinical findings When compared with ECG of 16-Oct-2024 20:05, QRS axis Shifted right Confirmed by Mode Coffman ([id number]) on 12/21/2024 8:47:09 AM [facility] EKG Rhythm Stripon [facility] Glucose, Whole Bloodon 12-21 Glucose [Mass/Vol] 264 mg/dL High 74 - 100 mg/dL [facility] Interpretation and review of laboratory results Abnormal [facility] Glucose [Mass/Vol] 264 mg/dL High 74-100 [facility] Glucose [Mass/Vol] 166 mg/dL High 74 - 100 mg/dL [facility] Interpretation and review of laboratory results Abnormal [facility] Glucose [Mass/Vol] 166 mg/dL High 74-100 [facility] Glucose [Mass/Vol] 195 mg/dL High 74 - 100 mg/dL [facility] Interpretation and review of laboratory results Abnormal [facility] Glucose [Mass/Vol] 195 mg/dL High 74-100 [facility] Urinalysis w/ Microon 2024 Bilirubin, SemiQt,Ur Negative Normal NEG [facility] Comment on above: Performed By: #### U AMIC #### [facility] [address] [place] [address] Reordering Clerk: Loreta Zelaya MD Blood, Urine Negative Normal NEG [facility] Comment on above: Performed By: #### U AMIC #### [facility] [address] [place] [address] Reordering Clerk: Loreta Zelaya MD Clarity (U) Clear Normal CLEAR [facility] Comment on above: Performed By: #### U AMIC #### [facility] [address] [place] [address] Reordering Clerk: Loreta Zelaya MD Color (U) Yellow Normal YEL [facility] Comment on above: Performed By: #### U AMIC #### [facility] [address] [place], [place] [id number] Reordering Clerk: Loreta Zelaya MD Epithelial cells LM Ql (Urine sed) None Normal 0-25 [facility] Comment on above: Performed By: #### U AMIC #### [facility] [address] [place], [place] [phone] Reordering Clerk: Loreta Zelaya MD Glucose Ql (U) 3+ mg/dL Abnormal NEG [facility] in Hospital Comment on above: Performed By: #### U AMIC #### [facility] [address] [place] [address] [place]. [place], [place] [id number] Reordering Clerk: Loreta Zelaya MD Ketones Ql (U) 4+ mg/dL Abnormal NEG [facility] in Hospital Comment on above: Performed By: #### U AMIC #### [facility] [address] [place] [address] [place], [place] [id number] Reordering Clerk: Loreta Zelaya MD Leukocyte esterase Test strip Ql (U) Negative Normal NEG [facility] Comment on above: Performed By: #### U AMIC #### [facility] [address] [place] [address] [place] [place], [place] [id number] Reordering Clerk: Loreta Zelaya MD Nitrite,Ur Negative Normal NEG [facility] Comment on above: Performed By: #### U AMIC #### [facility] [address] [place], [place] [id number] Reordering Clerk: Loreta Zelaya MD PH,Ur 6.0 Normal 5.0-9.0 [facility] Comment on above: Performed By: #### U AMIC #### [facility] [address] [place], [place] [id number] Reordering Clerk: Loreta Zelaya MD Protein Ql (U) Negative Normal NEG [facility] Comment on above: Performed By: #### U AMIC #### [facility] [address] [place], [place] [phone] Reordering Clerk: Loreta Zelaya MD Spec. Millen,Ur <1.005 Low 1.010-1.020 [facility] Comment on above: Performed By: #### U AMIC #### [facility] [address] [place], [place] [id number] Reordering Clerk: Loreta Zelaya MD Urine RBC's None Normal 0-2 [facility] Comment on above: Performed By: #### U AMIC #### [facility] [address] [place] [address] Dr. [place], [place] [phone] Reordering Clerk: Loreta Zelaya MD Urine WBC's None Normal 0-5 [facility] Comment on above: Performed By: #### U AMIC #### [facility] [address] [place] [address] [place] [place], [place] [id number] Reordering Clerk: Loreta Zelaya MD Urobilinogen,Ur Normal Normal 0.0-1.0 [facility] Comment on above: Performed By: #### U AMIC #### [facility] [address] [place] [address] [place]. [place], [place] [phone] Reordering Clerk: Loreat Zelaya MD Yeast PRESENCE NOTED Abnormal NONE [facility] in [facility] Comment on above: Performed By: #### U AMIC #### [facility] [address] [place] [address] [place], [place] [id number] Reordering Clerk: Loreta Zelaya MD Urinalysis with Microscopico n 12-21-2024 Bilirubin Ql (U) Negative NEGATIVE [facility] Clarity (U) Clear Clear [facility] Color (U) Yellow Yellow Bon [facility] Epithelial cells LM.HPF (Urine sed) [#/Area] None [facility] Glucose Test strip (U) [Mass/Vol] 3+ Abnormal NEGATIVE mg/dL [facility] Hemoglobin Auto test strip Ql (U) Negative NEGATIVE [facility] Interpretation and review of laboratory results Abnormal [facility] Ketones (U) [Mass/Vol] 4+ Abnormal NEGAT AMITA mg/dL [facility] Leukocyte esterase Test strip Ql (U) Negative NEGATIVE [facility] Nitrite Ql (U) Negative NEGATIVE [facility] pH (U) 6 [pH] 5.0 - 9.0 [facility] Protein (U) [Mass/Vol] Negative NEGAT AMITA mg/dL [facility] RBC LM.HPF (Urine sed) [#/Area] None [facility] Specific gravity (U) [Rel density] Low 1.010 - 1.020 [facility] Urobilinogen Qn (U) Normal 0.0 - 1. 0 EU/dL [facility] WBC LM.HPF (Urine sed) [#/Area] None [facility] Yeast LM Ql (Urine sed) PRESENCE NOTED Abnormal None [facility] BMPon 12-20-2024 Anion gap [Moles/Vol] 14 mmol/L 9 - 16 mmol/L [facility] Calcium [Mass/Vol] 7.9 mg/dL Low 8.6 - 10. 4 mg/dL [facility] Chloride [Moles/Vol] 102 mmol/L 98 - 10 7 mmol/L [facility] CO2 [Moles/Vol] 18 mmol/L Low 20 - 31 mmol/L [facility] Creatinine [Mass/Vol] 0.6 mg/dL 0.50 - 0.90 mg/dL [facility] Est, Glom Filt Rate - PINF [facility] Comment on above: These results are [...] mg/dL High 74 - 99 mg/dL [facility] Interpretation and review of laboratory results Abnormal [facility] Potassium [Moles/Vol] 4 mmol/L 3.7 - 5.3 mmol/L [facility] Sodium [Moles/Vol] 134 mmol/L Low 136 - 145 mmol/L [facility] Urea nitrogen [Mass/Vol] 16 mg/dL 6 - 20 mg/dL [facility] Urea nitrogen/Creatinine [Mass ratio] 27 mg/mg High 9 - 20 [facility] Basic Metabolic Profon 12-20 Anion gap [Moles/Vol] 14 mmol/L Normal 9-16 [facility] Comment on above: Performed By: #### B MP #### [facility] [address] [place] [address] Reordering Clerk: Loreta Zelaya MD BUN/CRE Ratio 27 High 9-20 [facility] Comment on above: Performed By: #### B MP #### [facility] [address] [place] [address] Reordering Clerk: Loreta Zelaya MD Calcium [Mass/Vol] 7.9 mg/dL Low 8.6-10.4 [facility] Comment on above: Performed By: #### B MP #### [facility] [address] [place], [place] [id number] Reordering Clerk: Loreta Zelaya MD Chloride [Moles/Vol] 102 mmol/L Normal 98-107 [facility] Comment on above: Performed By: #### B MP #### [facility] [address] [place] [address] Reordering Clerk: Loreta Zealya MD CO2 [Moles/Vol] 18 mmol/L Low 20-31 [facility] Comment on above: Performed By: #### B MP #### [facility] [address] [place] [address] Reordering Clerk: Loreta Zelaya MD Creatinine [Mass/Vol] 0.6 mg/dL Normal 0.50-0.90 [facility] Comment on above: Performed By: #### B MP #### [facility] [address] [place] [address] Reordering Clerk: Loreta Zelaya MD GFR/1.73 sq M.predicted among non-blacks MDRD (S/P/Bld) [Vol rate/Area] mL/min/{1.73_m2} Normal >60 [facility] Comment on above: Result Comment: These results [...] secretion. Performed By: #### B MP #### [facility] [address] [place] [address] [place] [address] Reordering Clerk: Loreta Zelaya MD Glucose [Mass/Vol] 370 mg/dL High 74-99 [facility] Comment on above: Performed By: #### B MP #### [address] [place] [address] Reordering Clerk: Loreta Zelaya MD Potassium [Moles/Vol] 4.0 mmol/L Normal 3.7-5.3 [facility] Comment on above: Performed By: #### B MP #### [facility] [address] [place] [address] [place] [address] Reordering Clerk: Loreta Zelaya MD Sodium [Moles/Vol] 134 mmol/L Low 136-145 [facility] Comment on above: Performed By: #### B MP #### [facility] [address] [place] [address] Reordering Clerk: Loreta Zelaya MD Urea nitrogen [Mass/Vol] 16 mg/dL Normal 6-20 [facility] Comment on above: Performed By: #### B MP #### [facility] [address] [place] [address] Reordering Clerk: Loreta Zelaya MD Beta Hydroxybutyrateon 12-20 Beta Hydroxybutyrate 3.86 mmol/L High 0.02-0.27 [facility] Comment on above: Performed By: #### I NSU #### [facility] [address] [place], [place] 1553108 Reordering Clerk: Gee Royal MD [facility] [address] [place] [address] Reordering Clerk: Loreta Zelaya MD #### CPEP #### [facility] [address] [place], [place] [phone] Reordering Clerk: Gee Royal MD Beta-Hydroxybutyrateon 12-20 Beta hydroxybutyrate [Mass/Vol] 3.86 mmol/L High 0.02 - 0.27 mmol/L [facility] Interpretation and review of laboratory results Abnormal [facility] Blood Gas, Venouson 12-21-19 25 Arterial patency Wrist artery --pre arterial puncture NOT APPLICABLE [facility] HCO3 (Bld) [Moles/Vol] 17.9 mmol/L Low 24.0 - 30.0 mmol/L [facility] Interpretation and review of laboratory results Abnormal [facility] Negative Base Excess, Erik 6.3 mmol/L High 0.0 - 2.0 mmol/L [facility] Oxygen gas flow Oxygen delivery system ROOM AIR [facility] Oxygen saturation in Blood 83 % 60.0 - 85.0 % [facility] Oxygen/Inspired gas Respiratory system --on ventilator 21 [facility] pCO2, Erik 32.4 Low [facility] pCO2, Erik, Temp Adj 32.4 Low [facility] pH, Erik 7.361 7.32 - 7.42 [facility] pH, Reik, Temp Adj 7.361 7.320 - 7.420 [facility] PO2, Erik 48.2 [facility] pO2, Erik, Temp Adj 48.2 [facility] CBC with Auto Differentialon 12-20-2024 Basophils (Bld) [#/Vol] 0.04 10*3/uL [facility] Basophils/100 WBC (Bld) 1 % 0 - 2 % B on [facility] Eosinophils (Bld) [#/Vol] 0.15 10*3/uL [facility] Eosinophils/100 WBC (Bld) 3 % 1 - 4 % [facility] Erythrocyte distribution width (RBC) [Ratio] 11.6 % Low 11.8 - 14.4 % [facility] Hematocrit (Bld) [Volume fraction] 46.4 % 36.3 - 47.1 % [facility] Hemoglobin (Bld) [Mass/Vol] 15.8 g/dL High 11.9 - 15.1 g/dL [facility] Immature granulocytes (Bld) [#/Vol] [facility] Immature granulocytes/100 WBC (Bld) 0 % 0 [facility] Interpretation and review of laboratory results Abnormal [facility] Lymphocytes/100 WBC (Bld) 43 % 24 - 43 % [facility] Lymphocytes/100 WBC (Bld) 2.46 % [facility] MCH (RBC) [Entitic mass] 30.5 pg 25.2 - 33.5 pg [facility] MCHC (RBC) [Mass/Vol] 34.1 g/dL 28.4 - 34.8 g/dL [facility] MCV (RBC) [Entitic vol] 89.6 fL 82.6 - 102.9 fL [facility] Monocytes/100 WBC (Bld) 6 % 3 - 12 % B on [facility] Monocytes/100 WBC (Bld) 0.35 % B on [facility] Neutrophils/100 WBC (Bld) 47 % 36 - 65 % [facility] Nucleated RBC/100 WBC (Bld) [Ratio] 0 % 0.0 per 100 WBC [facility] Platelet mean volume (Bld) [Entitic vol] 9.8 fL 8.1 - 13.5 fL [facility] Platelets (Bld) [#/Vol] 288 10*3/uL [facility] RBC (Bld) [#/Vol] 5.18 10*6/uL High 3.95 - 5.1 1 m/uL [facility] Segmented neutrophils/100 WBC (Bld) 2.7 % [facility] WBC other (Bld) [#/Vol] 5.7 B on [facility] CBC with Diffon 12-20-2024 Abs. Basophil 0.04 k/uL Normal 0.00-0.20 [facility] Comment on above: Performed By: #### I NSU #### [address] [address] Reordering Clerk: Gee Royal MD [facility] [address] [place] [address] [place] [id number] Reordering Clerk: Loreta Zelaya MD #### CPEP #### [address] [address] Reordering Clerk: Gee Royal MD Abs.Imm.Granulocyte <0.03 Normal 0.00-0.30 [facility] Comment on above: Performed By: #### I NSU #### [address] [address] Reordering Clerk: Gee Royal MD [address] [place] [phone] Reordering Clerk: Loreta Zelaya MD #### CPEP #### [address] [address] Reordering Clerk: Gee Royal MD Abs.Neutrophil (Seg) 2.70 k/uL Normal 1.50-8.10 [facility] Comment on above: Performed By: #### I NSU #### [address] [address] Reordering Clerk: Gee Royal MD [facility] [address] [place] [address] [place]. [place], [place] [phone] Reordering Clerk: Loreta Zelaya MD #### CPEP #### [address] [address] Reordering Clerk: Gee Royal MD Basophils/100 WBC (Bld) 1 % Normal 0-2 M [facility] Comment on above: Performed By: #### I NSU #### [address] [address] Reordering Clerk: Gee Royal MD [address] [place] [address] Reordering Clerk: Loreta Zelaya MD #### CPEP #### [address] [address] Reordering Clerk: Gee Royal MD Eosinophils (Bld) [#/Vol] 0.15 10*3/uL Normal 0.00-0.44 [facility] Comment on above: Performed By: #### I NSU #### [address] [address] Reordering Clerk: Gee Royal MD [address] [place], [place] [phone] Reordering Clerk: Loreta Zelaya MD #### CPEP #### [address] [address] Reordering Clerk: Gee Royal MD Eosinophils/100 WBC (Bld) 3 % Normal 1-4 [facility] Comment on above: Performed By: #### I NSU #### [address] [address] Reordering Clerk: Gee Royal MD [facility] [address] [place] [address] Dr. [place], [place] [phone] Reordering Clerk: Loreta eZlaya MD #### CPEP #### [address] [address] Reordering Clerk: Gee Royal MD Erythrocyte distribution width (RBC) [Ratio] 11.6 % Low 11.8-14.4 [facility] Comment on above: Performed By: #### I NSU #### [address] [address] Reordering Clerk: Gee Royal MD [address] [place] [phone] Reordering Clerk: Loreta Zelaya MD #### CPEP #### [address] [address] Reordering Clerk: Gee Royal MD Hematocrit (Bld) [Volume fraction] 46.4 % Normal 36.3-47.1 [facility] Comment on above: Performed By: #### I NSU #### [address] [address] Reordering Clerk: Gee Royal MD [address] [place] [phone] Reordering Clerk: Loreta Zelaya MD #### CPEP #### [address] [address] Reordering Clerk: Gee Royal MD Hemoglobin (Bld) [Mass/Vol] 15.8 g/dL High 11.9-15.1 [facility] Comment on above: Performed By: #### I NSU #### [address] [address] Reordering Clerk: Gee Royal MD [address] [place] [phone] Reordering Clerk: Loreta Zelaya MD #### CPEP #### [address] [address] Reordering Clerk: Gee Royal MD Immature granulocytes/100 WBC (Bld) 0 % Normal 0 [facility] Comment on above: Performed By: #### I NSU #### [address] [address] Reordering Clerk: Gee Royal MD [facility] [address] [place] [address] Dr. [place] [phone] Reordering Clerk: Loreta Zelaya MD #### CPEP #### [address] [address] Reordering Clerk: Gee Royal MD Lymphocytes (Bld) [#/Vol] 2.46 10*3/uL Normal 1.10-3.70 [facility] Comment on above: Performed By: #### I NSU #### [address] [address] Reordering Clerk: Gee Royal MD [facility] [address] [place] [address] [place] [address] Reordering Clerk: Loreta Zelaya MD #### CPEP #### [address] [address] Reordering Clerk: Gee Royal MD Lymphocytes/100 WBC (Bld) 43 % Normal 24-43 [facility] Comment on above: Performed By: #### I NSU #### [address] [address] Reordering Clerk: Gee Royal MD [facility] [address] [place] [address] [place] [address] Reordering Clerk: Loreta Zelaya MD #### CPEP #### [address] [address] Reordering Clerk: Gee Royal MD MCH (RBC) [Entitic mass] 30.5 pg Normal 25.2-33.5 [facility] Comment on above: Performed By: #### I NSU #### [address] [address] Reordering Clerk: Gee Royal MD [address] [place], [place] 6034283 Reordering Clerk: Loreta Zelaya MD #### CPEP #### [address] [address] Reordering Clerk: Gee Royal MD MCHC (RBC) [Mass/Vol] 34.1 g/dL Normal 28.4-34.8 [facility] Comment on above: Performed By: #### I NSU #### [address] [address] Reordering Clerk: Gee Royal MD [address] [place], [place] 2330283 Reordering Clerk: Loreta Zelaya MD #### CPEP #### [address] [address] Reordering Clerk: Gee Royal MD MCV (RBC) [Entitic vol] 89.6 fL Normal 82.6-102.9 M [facility] Comment on above: Performed By: #### I NSU #### [address] [address] Reordering Clerk: Gee Royal MD [address] [place] [address] Reordering Clerk: Loreta Zelaya MD #### CPEP #### [address] [address] Reordering Clerk: Gee Royal MD Monocytes (Bld) [#/Vol] 0.35 10*3/uL Normal 0.10-1.20 [facility] Comment on above: Performed By: #### I NSU #### [address] [address] Reordering Clerk: Gee Royal MD [address] [place] [address] Reordering Clerk: Loreta Zelaya MD #### CPEP #### [address] [address] Reordering Clerk: Gee Royal MD Monocytes/100 WBC (Bld) 6 % Normal 3-12 M [facility] Comment on above: Performed By: #### I NSU #### [address] [address] Reordering Clerk: Gee Royal MD [facility] [address] [place] [address] Reordering Clerk: Loreta Zelaya MD #### CPEP #### [address] [address] Reordering Clerk: Gee Royal MD Neutrophil (Seg) 47 % Normal 36-65 [facility] Comment on above: Performed By: #### I NSU #### [address] [address] Reordering Clerk: Gee Royal MD [facility] [address] [place] [phone] Reordering Clerk: Loreta Zelaya MD #### CPEP #### [address] [address] Reordering Clerk: Gee Royal MD NRBC Automated 0.0 per 100 WBC Normal 0.0 [facility] Comment on above: Performed By: #### I NSU #### [address] [address] Reordering Clerk: Gee Royal MD [facility] [address] [place] [address] Reordering Clerk: Loreta Zelaya MD #### CPEP #### [address] [address] Reordering Clerk: Gee Royal MD Platelet mean volume (Bld) [Entitic vol] 9.8 fL Normal 8.1-13.5 [facility] Comment on above: Performed By: #### I NSU #### [place] [address] [place] [address] Reordering Clerk: Gee Royal MD [facility] [address] [place] [address] [place]. [place], [place] [phone] Reordering Clerk: Loreta Zelaya MD #### CPEP #### [address] [address] Reordering Clerk: Gee Royal MD Platelets (Bld) [#/Vol] 288 10*3/uL Normal 138-453 [facility] Comment on above: Performed By: #### I NSU #### [address] [address] Reordering Clerk: Gee Royal MD [address] [place] [phone] Reordering Clerk: Loreta Zelaya MD #### CPEP #### [address] [address] Reordering Clerk: Gee Royal MD RBC (Bld) [#/Vol] 5.18 10*6/uL High 3.95-5.11 [facility] Comment on above: Performed By: #### I NSU #### [address] [address] Reordering Clerk: Gee Royal MD [facility] [address] [place] [address] [place] [phone] Reordering Clerk: Loreta Zelaya MD #### CPEP #### [address] [address] Reordering Clerk: Gee Royal MD WBC (Bld) [#/Vol] 5.7 10*3/uL Normal 3.5-11.3 [facility] Comment on above: Performed By: #### I NSU #### [facility] [address] [place] [address] Reordering Clerk: Gee Royal MD [facility] [address] [place] [address] Reordering Clerk: Loreta Zelaya MD #### CPEP #### [facility] [address] [place], [place] [phone] Reordering Clerk: Gee Royal MD [facility] 12-20-2024 Albumin [Mass/Vol] 4.2 g/dL 3.5 - 5.2 g/dL [facility] Albumin/Globulin [Mass ratio] 1.4 {ratio} 1.0 - 2.5 [facility] ALP [Catalytic activity/Vol] 148 U/L High 35 - 104 U/L [facility] ALT [Catalytic activity/Vol] 27 U/L 10 - 35 U/L [facility] Anion gap [Moles/Vol] 19 mmol/L High 9 - 16 mmol/L [facility] AST [Catalytic activity/Vol] 19 U/L 10 - 35 U/L [facility] Comment on above: Specimen hemolysis h as exceeded the interference as defined by Kat. Value may be falsely increased. Suggest recollection if clinically indicated. Bilirubin [Mass/Vol] 0.3 mg/dL 0.00 - 1.20 mg/dL [facility] Calcium [Mass/Vol] 9.2 mg/dL 8.6 - 10. 4 mg/dL [facility] Chloride [Moles/Vol] 92 mmol/L Low 98 - 10 7 mmol/L [facility] CO2 [Moles/Vol] 19 mmol/L Low 20 - 31 mmol/L [facility] Creatinine [Mass/Vol] 0.6 mg/dL 0.50 - 0.90 mg/dL [facility] Est, Glom Filt Rate - PINF [facility] Comment on above: These results are [...] Critically high 74 - 9 9 mg/dL [facility] Interpretation and review of laboratory results Abnormal [facility] Potassium [Moles/Vol] 4.8 mmol/L 3.7 - 5.3 mmol/L [facility] Comment on above: Specimen hemolysis h as exceeded the interference as defined by Kat. Value may be falsely increased. Suggest recollection if clinically indicated. Protein [Mass/Vol] 7.2 g/dL 6.6 - 8.7 g/dL [facility] Sodium [Moles/Vol] 130 mmol/L Low 136 - 145 mmol/L [facility] Urea nitrogen [Mass/Vol] 19 mg/dL 6 - 20 mg/dL [facility] Urea nitrogen/Creatinine [Mass ratio] 32 mg/mg High 9 - [address] [facility] CONTRASTon 2024 CT HEAD [...] Tavo Almonte MD 12/20/24 Final result Normal [facility] CT Head WO contraston 2024 No acute intracranial abnormality. [facility] EXAMINATION: CT OF THE HEAD WITHOUT [...] of the visualized skull or soft tissues. [facility] Tavo Almonte MD - 12/20/2024 EXAMINATION: [...] tissues. IMPRESSION: No acute intracranial abnormality. [facility] Radiology Study observation (narrative) [facility] CT Head WO contrastOrdered B y: Tavo Almonte on 12-20-2024 Milton Zamarripa [facility] Work Phone: CTA HEAD NECK W [...] Amaury Khan MD 12/20/24 Final result Normal [facility] CTA Head vessels and Neck ve ssels [...] fluid collection. The alexander-white differentiation is maintained. [facility] Amaury Khan MD - 12/20/2024 EXAMINATION: [...] head or neck. 2. Diffuse goiter. [facility] Radiology Study observation (narrative) [facility] CTA Head vessels and Neck ve ssels W contrast IVOrdered By: Amaury Khan on 12-20-2024 [facility] Work Phone: Comp Metabolic Profon 2024 Albumin [Mass/Vol] 4.2 g/dL Normal 3.5-5.2 [facility] Comment on above: Performed By: #### I NSU #### [facility] [address] [place], [place] [id number] Reordering Clerk: Gee Royal MD [facility] [address] [place] [address] Reordering Clerk: Loreta Zelaya MD #### CPEP #### [facility] [employer] [address] [place], [place] [phone] Reordering Clerk: Gee Royal MD Albumin/Glob Ratio 1.4 Normal 1.0-2.5 [facility] Comment on above: Performed By: #### I NSU #### [place] [facility] [address] [place] [address] Reordering Clerk: Gee Royal MD [address] [place], [place] [phone] Reordering Clerk: Loreta Zelaya MD #### CPEP #### [address] [address] Reordering Clerk: Gee Royal MD Alkaline Phos 148 U/L High 35-104 [facility] Comment on above: Performed By: #### I NSU #### [address] [address] Reordering Clerk: Gee Royal MD [address] [place] [address] Reordering Clerk: Loreta Zelaya MD #### CPEP #### [address] [address] Reordering Clerk: Gee Royal MD ALT [Catalytic activity/Vol] 27 U/L Normal 10-35 [facility] Comment on above: Performed By: #### I NSU #### [address] [address] Reordering Clerk: Gee Royal MD [address] [place], [place] [id number] Reordering Clerk: Loreta Zelaya MD #### CPEP #### [address] [address] Reordering Clerk: Gee Royal MD Anion gap [Moles/Vol] 19 mmol/L High 9-16 [facility] Comment on above: Performed By: #### I NSU #### [address] [address] Reordering Clerk: Gee Royal MD [facility] [address] [place] [address] [place] [place], [place] [phone] Reordering Clerk: Loreta Zelaya MD #### CPEP #### [address] [address] Reordering Clerk: Gee Royal MD AST [Catalytic activity/Vol] 19 U/L Normal 10-35 [facility] Comment on above: Result Comment: Spec imen hemolysis has exceeded the interference as defined by Kat. Value may be falsely increased. Suggest recollection if clinically indicated. Performed By: #### I NSU #### [address] [address] Reordering Clerk: Gee Royal MD [facility] [address] [place] [address] [address] [place], [place] [phone] Reordering Clerk: Loreta Zelaya MD #### CPEP #### [address] [address] Reordering Clerk: Gee Royal MD Bilirubin [Mass/Vol] 0.3 mg/dL Normal 0.00-1.20 [facility] Comment on above: Performed By: #### I NSU #### [address] [address] Reordering Clerk: Gee Royal MD [facility] [address] [place] [address] [address] [place], [place] [phone] Reordering Clerk: Loreta Zelaya MD #### CPEP #### [address] [address] Reordering Clerk: Gee Royal MD BUN/CRE Ratio 32 High 9-20 [facility] Comment on above: Performed By: #### I NSU #### [address] [address] Reordering Clerk: Gee Royal MD [facility] [address] [place] [address] [address] [place], [place] [phone] Reordering Clerk: Loreta Zelaya MD #### CPEP #### [facility] [address] [place] [address] Reordering Clerk: Gee Royal MD Calcium [Mass/Vol] 9.2 mg/dL Normal 8.6-10.4 [facility] Comment on above: Performed By: #### I NSU #### [facility] [address] [place] [address] Reordering Clerk: Gee Royal MD [facility] [address] [place] [address] [address]. [place], [place] [phone] Reordering Clerk: Loreta Zelaya MD #### CPEP #### [address] [address] Reordering Clerk: Gee Royal MD Chloride [Moles/Vol] 92 mmol/L Low 98-107 [facility] Comment on above: Performed By: #### I NSU #### [address] [address] Reordering Clerk: Gee Royal MD [facility] [address] [place] [address] [place] [address] Reordering Clerk: Loreta Zelaya MD #### CPEP #### [address] [address] Reordering Clerk: Gee Royal MD CO2 [Moles/Vol] 19 mmol/L Low 20-31 [facility] Comment on above: Performed By: #### I NSU #### [facility] [address] [place] [address] Reordering Clerk: Gee Royal MD [facility] [address] [place] [address] [place] [address] Reordering Clerk: Loreta Zelaya MD #### CPEP #### [address] [address] Reordering Clerk: Gee Royal MD Creatinine [Mass/Vol] 0.6 mg/dL Normal 0.50-0.90 [facility] Comment on above: Performed By: #### I NSU #### [address] [address] Reordering Clerk: Gee Royal MD [facility] [address] [place] [address] [place] [place], [place] [phone] Reordering Clerk: Loreta Zelaya MD #### CPEP #### [address] [address] Reordering Clerk: Gee Royal MD GFR/1.73 sq M.predicted among non-blacks MDRD (S/P/Bld) [Vol rate/Area] mL/min/{1.73_m2} Normal >60 [facility] Comment on above: Result Comment: These results [...] secretion. Performed By: #### I NSU #### [address] [address] Reordering Clerk: Gee Royal MD [facility] [address] [place] [address] [place] [address] Reordering Clerk: Loreta Zelaya MD #### CPEP #### [address] [address] Reordering Clerk: Gee Royal MD Glucose [Mass/Vol] 516 mg/dL Critically high 74-99 [facility] Comment on above: Performed By: #### I NSU #### [address] [address] Reordering Clerk: Gee Royal MD [facility] [address] [place] [address] [address]. [place], [place] [phone] Reordering Clerk: Loreta Zelaya MD #### CPEP #### [address] [address] Reordering Clerk: Gee Royal MD Potassium [Moles/Vol] 4.8 mmol/L Normal 3.7-5.3 [facility] Comment on above: Result Comment: Spec imen hemolysis has exceeded the interference as defined by Kat. Value may be falsely increased. Suggest recollection if clinically indicated. Performed By: #### I NSU #### [address] [address] Reordering Clerk: Gee Royal MD [facility] [address] [place] [address] [place] [address] Reordering Clerk: Loreta Zelaya MD #### CPEP #### [address] [address] Reordering Clerk: Gee Royal MD Protein [Mass/Vol] 7.2 g/dL Normal 6.6-8.7 [facility] Comment on above: Performed By: #### I NSU #### [address] [address] Reordering Clerk: Gee Royal MD [facility] [address] [place] [address] [address] [place], [place] [phone] Reordering Clerk: Loreta Zelaya MD #### CPEP #### [address] [address] Reordering Clerk: Gee Royal MD Sodium [Moles/Vol] 130 mmol/L Low 136-145 [facility] Comment on above: Performed By: #### I NSU #### [address] [address] Reordering Clerk: Gee Royal MD [facility] [address] [place] [address] [place] [address] Reordering Clerk: Loreta Zelaya MD #### CPEP #### [facility] [address] [place] [address] Reordering Clerk: Gee Royal MD Urea nitrogen [Mass/Vol] 19 mg/dL Normal 6-20 [facility] Comment on above: Performed By: #### I NSU #### [facility] [address] [place] [address] Reordering Clerk: Gee Royal MD [facility] [address] [place] [address] Reordering Clerk: Loreta Zelaya MD #### CPEP #### [facility] [address] [place] [address] Reordering Clerk: Gee Royal MD Glucose, Whole Bloodon 12-20 Glucose [Mass/Vol] 458 mg/dL High 74 - 100 mg/dL [facility] Interpretation and review of laboratory results Abnormal [facility] Glucose [Mass/Vol] 458 mg/dL High 74-100 [facility] Glucose [Mass/Vol] 506 mg/dL Critically high 74 - 1 00 mg/dL [facility] Interpretation and review of laboratory results Abnormal [facility] Glucose [Mass/Vol] 506 mg/dL Critically high 74-100 [facility] Magnesiumon 12-20-2024 Magnesium [Mass/Vol] 2 mg/dL 1.6 - 2 .6 mg/dL [facility] Magnesium [Mass/Vol] 2.0 mg/dL Normal 1.6-2.6 [facility] Comment on above: Performed By: #### U OSMO #### [facility] [address] [place] [address] Reordering Clerk: Gee Royal MD #### URNA #### [facility] [address] [place] [address] Reordering Clerk: Loreta Zelaya MD No Panel Informationon 12-20 [facility] Troponinon 06-18-2025 Troponin I.cardiac High sensitivity method [Mass/Vol] ng/L 0 - 14 ng/L [facility] Comment on above: High Sensitivity Tro ponin values cannot be compared with other Troponin methodologies. Troponin, High Sens <6 Normal 0-14 [facility] Comment on above: Result Comment: High Sensitivity Troponin values cannot be compared with other Troponin methodologies. Performed By: #### U OSMO #### [facility] [address] [place], [place] [phone] Reordering Clerk: Gee Royal MD #### URNA #### [facility] [address] [place], [place] [phone] Reordering Clerk: Loreta Zelaya MD Venous Blood Gaseson 025 Allan Test NOT APPLICABLE [facility] Comment on above: Performed By: #### V BG #### [address] [place], [place] [phone] Reordering Clerk: Loreta Zelaya MD Body Temp. 37.0 [facility] Comment on above: Performed By: #### V BG #### [address] [place], [place] [phone] Reordering Clerk: Loreta Zelaya MD FIO2 21 [facility] Comment on above: Performed By: #### V BG #### [address] [place] [id number] Reordering Clerk: Loreta Zelaya MD HCO3 (Bld) [Moles/Vol] 17.9 mmol/L Low 24.0-30.0 [facility] Comment on above: Performed By: #### V BG #### [facility] [address] [place] [address] Reordering Clerk: Loreta Zelaya MD Negative Base Excess 6.3 mmol/L High 0.0-2.0 [facility] Comment on above: Performed By: #### V BG #### [facility] [address] [place] [address] Reordering Clerk: Loreta Zelaya MD O2 Device/Flow/% ROOM AIR Normal [facility] Comment on above: Performed By: #### V BG #### [facility] [address] [place] [address] Reordering Clerk: Loreta Zelaya MD Oxygen saturation in Blood 83.0 % Normal 60.0-85.0 [facility] Comment on above: Performed By: #### V BG #### [facility] [address] [place] [address] [place] [address] Reordering Clerk: Loreta Zelaya MD pCO2 32.4 mm Hg Low 39-55 [facility] Comment on above: Performed By: #### V BG #### [address] [place] [address] Reordering Clerk: Loreta Zelaya MD Pco2 Adj'd for Temp. 32.4 mmHg Low 39.0-55.0 [facility] Comment on above: Performed By: #### V BG #### [address] [place] [address] Reordering Clerk: Loreta Zelaya MD pH (Bld) 7.361 [pH] Normal 7.32-7.42 [facility] Comment on above: Performed By: #### V BG #### [facility] [address] [place] [address] [place] [address] Reordering Clerk: Loreta Zelaya MD pH Adjst'd for Temp. 7.361 Normal 7.320-7.420 [facility] Comment on above: Performed By: #### V BG #### [address] [place] [address] Reordering Clerk: Loreta Zelaya MD pO2 48.2 mm Hg Normal 30.0-50.0 [facility] Comment on above: Performed By: #### V BG #### [facility] [address] [place] [address] Reordering Clerk: Loreta Zelaya MD pO2 Adj'd for Temp. 48.2 mmHg Normal 30.0-50.0 [facility] Comment on above: Performed By: #### V BG #### [facility] [address] [place] [address] Reordering Clerk: Loreta Zelaya MD US PELVIS COMPLETE NON-OB [...] Trino Cantor MD 12/18/24 Final result Normal [facility] MRI LUMBAR SPINE WO CONTRAST on 12-13-2024 [...] Chas Vásquez MD 12/13/24 Final result Normal [facility] XR KNEE LEFT (1-2 VIEWS)on 0 12-10-2024 [...] Emiliano Tran MD 12/10/24 Final result Normal [facility] XR Knee - left 1 or 2 Viewso n 12-10-2024 1. No acute findings. 2. Mild loss of joint space in the medial and lateral compartments compatible with degenerative change. [facility] CONSOLIDATED EXAM: 2 VIEWS XRAY OF THE LEFT KNEE 12/08/2024 03:01:50 PM COMPARISON: None available. CLINICAL HISTORY: Acute pain of left knee. FINDINGS: BONES AND JOINTS: No acute fracture. No focal osseous lesion. No joint dislocation. No significant joint effusion. Mild loss of joint space in the medial and lateral compartments compatible with degenerative change. SOFT TISSUES: The soft tissues are unremarkable. [facility] Emiliano Ellis MD - 12/10/2024 EXAM: 2 [...] lateral compartments compatible with degenerative change. [facility] XR Knee - left 1 or 2 ViewsO rdered By: Emiliano Tran on 12-10-2024 [facility] Work Phone: HIV Ag/Abon 12-09-2024 HIV Ag/Ab Non-Reactive Normal NR [facility] Comment on above: Result Comment: No l aboratory evidence of HIV infection. If acute HIV infection is suspected, consider testing for HIV-1 RNA. Performed By: #### I NSU #### [address] [address] Reordering Clerk: Gee Royal MD [address] [place] [address] Reordering Clerk: Loreta Zelaya MD #### CPEP #### [facility] [employer] [facility] [place] [address] Reordering Clerk: Gee Royal MD Hepatitis Acute [facility] 12-09 Hep A Ab,IgM Non-Reactive Normal NR [facility] Comment on above: Performed By: #### I NSU #### [address] [address] Reordering Clerk: Gee Royal MD [address] [place] [address] Reordering Clerk: Loreta Zelaya MD #### CPEP #### [address] [address] Reordering Clerk: Gee Royal MD Hep B Core Ab,IgM Non-Reactive Normal [facility] Comment on above: Performed By: #### I NSU #### [address] [address] Reordering Clerk: Gee Royal MD [address] [place] [address] Reordering Clerk: Loreta Zelaya MD #### CPEP #### [address] [address] Reordering Clerk: Gee Royal MD Hep B Surf Ag Non-Reactive Normal [facility] Comment on above: Performed By: #### I NSU #### [address] [address] Reordering Clerk: Gee Royal MD [address] [place] [address] Reordering Clerk: Loreta Zelaya MD #### CPEP #### [address] [address] Reordering Clerk: Gee Royal MD Hep C Ab Non-Reactive Normal [facility] Comment on above: Result Comment: The [...] PCR. Performed By: #### I NSU #### [address] [address] Reordering Clerk: Gee Royal MD [address] [place] [address] Reordering Clerk: Loreta Zelaya MD #### CPEP #### [address] [address] Reordering Clerk: Gee Royal MD Prolactinon 12-09-2024 Prolactin 4.51 ng/mL Low 4.79-23.3 [facility] Comment on above: Result Comment: The presence of macroprolactin may cause interference in female patients with various endocrinological diseases or during . Performed By: #### I NSU #### [address] [address] Reordering Clerk: Gee Royal MD [address] [place] [address] Reordering Clerk: Loreta Zelaya MD #### CPEP #### [address] [address] Reordering Clerk: Gee Royal MD T.pallidum Ab Screenon 12-09 T.pallidum Ab Screen Non-Reactive Normal NR [facility] Comment on above: Result Comment: T. pallidum antibodies are not detected. There is no serological evidence of infection with T. pallidum (early primary syphilis cannot be excluded). Retest in 2-4 weeks if syphilis is clinically suspect. Performed By: #### I NSU #### [address] [address] Reordering Clerk: Gee Royal MD [facility] [address] [place] [address] [place] [address] Reordering Clerk: Loreta Zelaya MD #### CPEP #### [address] [address] Reordering Clerk: Gee Royal MD US THYROIDon 12-08-2024 US THYROID EXAMINATION: THYROID ULTRASOUND 12/08/2024 COMPARISON: None. TECHNIQUE: Real-time and color flow sonographic images were obtained using a linear transducer. [id number]. HISTORY: F 49 y/o old. ORDERING SYSTEM [...] (2) 2. Echogenicity: Isoechoic (1) 3. Shape: Obixf-wkvq-aogf (0) 4. Margins: Ill-defined (0) 5. Echogenic [...] by: Brandt Kirk DO Signed by: Brandt Krik DO 12/08/24 Final result Normal [facility] US Thyroid glandon 5 1. 16 mm [...] more than four nodules should be followed. [facility] CONSOLIDATED EXAMINATION: THYROID ULTRASOUND 12/08/2024 COMPARISON: None. TECHNIQUE: Real-time and color flow sonographic images were obtained using a linear transducer. [id number]. HISTORY: F 49 y/o old. ORDERING SYSTEM [...] (2) 2. Echogenicity: Isoechoic (1) 3. Shape: Mnepd-vkjh-yogc (0) 4. Margins: Ill-defined (0) 5. Echogenic foci: None (0) ACR TI-RADS total points: 3 ACR TI-RADS risk category: TR3 Soft tissues: No visualized lymphadenopathy [facility] Brandt Kirk, DO - 12/08/2024 EXAMINATION: THYROID ULTRASOUND 12/08/2024 COMPARISON: None. TECHNIQUE: Real-time and color flow sonographic images were obtained using a linear transducer. [id number]. HISTORY: F 49 y/o old. ORDERING SYSTEM [...] (2) 2. Echogenicity: Isoechoic (1) 3. Shape: Wrnxs-juli-pvqv (0) 4. Margins: Ill-defined (0) 5. Echogenic [...] more than four nodules should be followed. [facility] (n[facility] [employer] [facility] US Thyroid glandOrdered By: Brandt Kirk on 12-08-2024 [facility] Work Phone: XR Knee - left 1 or 2 Viewso n 12-08-2024 Radiology Study observation (narrative) [facility] [employer] [facility] CHLAMYDIA/GC BY PCR IMELDA TITUS ABon [...] are dependent on adequate specimen collection. Normal [facility] Comment on above: Performed By: #### C GS #### [facility] ([facility]) [address] [place] [address] VIR VAGINITIS PANEL PCRon 2024 VAGINITIS PANEL [...] clinical presentation to determine patient diagnosis. Normal [facility] Comment on above: Performed By: #### V PPCR #### [facility] ([facility]) [address] [place] [address] VIR Albumin/Creat Ratio, Urineon 11-14-2024 Albumin,conc.[place] U <12 Normal 0-20 [facility] Comment on above: Performed By: #### C DP #### [facility] [address] [place] [address] Reordering Clerk: Loreta Zelaya MD Albumin/Creat Ratio Can not be calculated Normal 0.0-25.0 [facility] Comment on above: Performed By: #### C DP #### [facility] [address] [place] [address] Reordering Clerk: Loreta Zelaya MD Creatinine Conc. 15.9 mg/dL Low 28.0-217.0 [facility] Comment on above: Result Comment: Refe rence range defined for 1st morning urine Performed By: #### C DP #### [facility] [address] [place] [address] Reordering Clerk: Loreta Zelaya MD Albumin/Creatinine Ratio, Ur ineon 11-14-2024 Albumin DL <= 20 mg/L (U) [Mass/Vol] mg/L 0 - 20 mg/L [facility] Albumin/Creatinine DL <= 20 mg/L (U) [Ratio] Can not be calculated [facility] Creatinine (U) [Mass/Vol] 15.9 mg/dL Low 28.0 - 217.0 mg/dL [facility] Comment on above: Reference range defi radha for 1st morning urine Interpretation and review of laboratory results Abnormal [facility] CBC with Auto Differentialon 11-14-2024 Basophils (Bld) [#/Vol] 0.03 10*3/uL [facility] Basophils/100 WBC (Bld) 1 % 0 - 2 % B on [facility] Eosinophils (Bld) [#/Vol] 0.08 10*3/uL [facility] Eosinophils/100 WBC (Bld) 2 % 1 - 4 % [facility] Erythrocyte distribution width (RBC) [Ratio] 11.9 % 11.8 - 14.4 % [facility] Hematocrit (Bld) [Volume fraction] 41.4 % 36.3 - 47.1 % [facility] Hemoglobin (Bld) [Mass/Vol] 13.7 g/dL 11.9 - 15.1 g/dL [facility] Immature granulocytes (Bld) [#/Vol] [facility] Immature granulocytes/100 WBC (Bld) 0 % 0 [facility] Lymphocytes/100 WBC (Bld) 29 % 24 - 43 % [facility] Lymphocytes/100 WBC (Bld) 1.41 % [facility] MCH (RBC) [Entitic mass] 32.7 pg 25.2 - 33.5 pg [facility] MCHC (RBC) [Mass/Vol] 33.1 g/dL 28.4 - 34.8 g/dL [facility] MCV (RBC) [Entitic vol] 98.8 fL 82.6 - 102.9 fL [facility] Monocytes/100 WBC (Bld) 6 % 3 - 12 % B on [facility] Monocytes/100 WBC (Bld) 0.31 % B on [facility] Neutrophils/100 WBC (Bld) 62 % 36 - 65 % [facility] Nucleated RBC/100 WBC (Bld) [Ratio] 0 % 0.0 per 100 WBC [facility] Platelet mean volume (Bld) [Entitic vol] 9.8 fL 8.1 - 13.5 fL [facility] Platelets (Bld) [#/Vol] 335 10*3/uL [facility] RBC (Bld) [#/Vol] 4.19 10*6/uL 3.95 - 5.1 1 m/uL [facility] Segmented neutrophils/100 WBC (Bld) 3 % [facility] WBC other (Bld) [#/Vol] 4.9 B on [facility] CBC with Diffon 11-14-2024 Abs. Basophil 0.03 k/uL Normal 0.00-0.20 [facility] Comment on above: Performed By: #### C DP #### [facility] [address] [place] [address] Reordering Clerk: Loreta Zelaya MD Abs.Imm.Granulocyte <0.03 Normal 0.00-0.30 [facility] Comment on above: Performed By: #### C DP #### [facility] [address] [place] [address] Reordering Clerk: Loreta Zelaya MD Abs.Neutrophil (Seg) 3.00 k/uL Normal 1.50-8.10 [facility] Comment on above: Performed By: #### C DP #### [address] [place], [facility] Reordering Clerk: Loreta Zelaya MD Basophils/100 WBC (Bld) 1 % Normal 0-2 [facility] Comment on above: Performed By: #### C DP #### [address] [place], [place] [address] Reordering Clerk: Loreta Zelaya MD Eosinophils (Bld) [#/Vol] 0.08 10*3/uL Normal 0.00-0.44 [facility] Comment on above: Performed By: #### C DP #### [address] [place] [address] Reordering Clerk: Loreta Zelaya MD Eosinophils/100 WBC (Bld) 2 % Normal 1-4 [facility] Comment on above: Performed By: #### C DP #### [address] [place], [facility]83 Reordering Clerk: Loreta Zelaya MD Erythrocyte distribution width (RBC) [Ratio] 11.9 % Normal 11.8-14.4 [facility] Comment on above: Performed By: #### C DP #### [address] [place], [place] [address] Reordering Clerk: Loreta Zelaya MD Hematocrit (Bld) [Volume fraction] 41.4 % Normal 36.3-47.1 [facility] Comment on above: Performed By: #### C DP #### [address] [place], [facility]83 Reordering Clerk: Loreta Zelaya MD Hemoglobin (Bld) [Mass/Vol] 13.7 g/dL Normal 11.9-15.1 [facility] Comment on above: Performed By: #### C DP #### [facility] [address] [place], [place] [id number] Reordering Clerk: Loreta Zelaya MD Immature granulocytes/100 WBC (Bld) 0 % Normal 0 [facility] Comment on above: Performed By: #### C DP #### [facility] [address] [place], [place] [phone] Reordering Clerk: Loreta Zelaya MD Lymphocytes (Bld) [#/Vol] 1.41 10*3/uL Normal 1.10-3.70 [facility] Comment on above: Performed By: #### C DP #### [address] [place] [id number] Reordering Clerk: Loreta Zelaya MD Lymphocytes/100 WBC (Bld) 29 % Normal 24-43 [facility] Comment on above: Performed By: #### C DP #### [address] [place], [facility]83 Reordering Clerk: Loreta Zelaya MD MCH (RBC) [Entitic mass] 32.7 pg Normal 25.2-33.5 [facility] Comment on above: Performed By: #### C DP #### [address] [place], [place] [address]7583 Reordering Clerk: Loreta Zelaya MD MCHC (RBC) [Mass/Vol] 33.1 g/dL Normal 28.4-34.8 [facility] Comment on above: Performed By: #### C DP #### [address] [place], [facility]83 Reordering Clerk: Loreta Zelaya MD MCV (RBC) [Entitic vol] 98.8 fL Normal 82.6-102.9 [facility] Comment on above: Performed By: #### C DP #### [address] [place], [facility]83 Reordering Clerk: Loreta Zelaya MD Monocytes (Bld) [#/Vol] 0.31 10*3/uL Normal 0.10-1.20 [facility] Comment on above: Performed By: #### C DP #### [facility] [address] [address] [place], [place] [id number] Reordering Clerk: Loreta Zelaya MD Monocytes/100 WBC (Bld) 6 % Normal 3-12 M [facility] Comment on above: Performed By: #### C DP #### [facility] [address] [place] [address] Reordering Clerk: Loreta Zelaya MD Neutrophil (Seg) 62 % Normal 36-65 [facility] Comment on above: Performed By: #### C DP #### [address] [place], [place] [id number] Reordering Clerk: Loreta Zelaya MD NRBC Automated 0.0 per 100 WBC Normal 0.0 [facility] Comment on above: Performed By: #### C DP #### [facility] [address] [place] [address] Reordering Clerk: Loreta Zelaya MD Platelet mean volume (Bld) [Entitic vol] 9.8 fL Normal 8.1-13.5 [facility] Comment on above: Performed By: #### C DP #### [facility] [address] [place] [address] [place] [address] Reordering Clerk: Loreta Zelaya MD Platelets (Bld) [#/Vol] 335 10*3/uL Normal 138-453 [facility] Comment on above: Performed By: #### C DP #### [facility] [address] [place], [place] [id number] Reordering Clerk: Loreta Zelaya MD RBC (Bld) [#/Vol] 4.19 10*6/uL Normal 3.95-5.11 [facility] Comment on above: Performed By: #### C DP #### [facility] [address] [place], [place] 1089183 Reordering Clerk: Loreta Zelaya MD WBC (Bld) [#/Vol] 4.9 10*3/uL Normal 3.5-11.3 [facility] Comment on above: Performed By: #### C DP #### [facility] [address] [place], [place] [id number] Reordering Clerk: Loreta Zelaya MD Comp Metabolic Profon 2024 Albumin [Mass/Vol] 4.4 g/dL Normal 3.5-5.2 [facility] Comment on above: Performed By: #### V BG #### [facility] [address] [place], [place] [id number] Reordering Clerk: Loreta Zelaya MD Albumin/Glob Ratio 1.6 Normal 1.0-2.5 [facility] Comment on above: Performed By: #### V BG #### [facility] [address] [place], [place] [id number] Reordering Clerk: Loreta Zelaya MD Alkaline Phos 224 U/L High 35-104 [facility] Comment on above: Performed By: #### V BG #### [address] [place] [address] Reordering Clerk: Loreta Zelaya MD ALT [Catalytic activity/Vol] 24 U/L Normal 10-35 [facility] Comment on above: Performed By: #### V BG #### [facility] [address] [place], [place] 8072583 Reordering Clerk: Loreta Zelaya MD Anion gap [Moles/Vol] 13 mmol/L Normal 9-16 [facility] Comment on above: Performed By: #### V BG #### [facility] [address] [place], [place] [id number] Reordering Clerk: Loreta Zelaya MD AST [Catalytic activity/Vol] 18 U/L Normal 10-35 [facility] Comment on above: Performed By: #### V BG #### [facility] [address] [place], [place] [id number] Reordering Clerk: Loreta Zelaya MD Bilirubin [Mass/Vol] mg/dL Normal 0.00-1.20 [facility] Comment on above: Performed By: #### V BG #### [facility] [address] [place], [place] 7310183 Reordering Clerk: Loreta Zelaya MD BUN/CRE Ratio 35 High 9-20 [facility] Comment on above: Performed By: #### V BG #### [facility] [address] [place], [place] [id number] Reordering Clerk: Loreta Zelaya MD Calcium [Mass/Vol] 9.4 mg/dL Normal 8.6-10.4 [facility] Comment on above: Performed By: #### V BG #### [facility] [address] [place], [place] [id number] Reordering Clerk: Loreta Zelaya MD Chloride [Moles/Vol] 95 mmol/L Low 98-107 [facility] Comment on above: Performed By: #### V BG #### [facility] [address] [place] [address] [place] [place], [place] 5010583 Reordering Clerk: Loreta Zelaya MD CO2 [Moles/Vol] 25 mmol/L Normal 20-31 [facility] Comment on above: Performed By: #### V BG #### [facility] [address] [place], [place] 5543483 Reordering Clerk: Loreta Zelaya MD Creatinine [Mass/Vol] 0.6 mg/dL Normal 0.50-0.90 [facility] Comment on above: Performed By: #### V BG #### [facility] [address] [place], [place] 7042783 Reordering Clerk: Loreta Zelaya MD GFR/1.73 sq M.predicted among non-blacks MDRD (S/P/Bld) [Vol rate/Area] mL/min/{1.73_m2} Normal >60 [facility] Comment on above: Result Comment: These results [...] secretion. Performed By: #### V BG #### [address] [place] [address] Reordering Clerk: Loreta Zelaya MD Glucose [Mass/Vol] 605 mg/dL Critically high 74-99 M [facility] Comment on above: Performed By: #### V BG #### [address] [place] [address] Reordering Clerk: Loreta Zelaya MD Potassium [Moles/Vol] 4.7 mmol/L Normal 3.7-5.3 [facility] Comment on above: Result Comment: Spec imen hemolysis has exceeded the interference as defined by Kat. Value may be falsely increased. Suggest recollection if clinically indicated. Performed By: #### V BG #### [address] [place] [address] Reordering Clerk: Loreta Zelaya MD Protein [Mass/Vol] 7.1 g/dL Normal 6.6-8.7 [facility] Comment on above: Performed By: #### V BG #### [address] [place] [address] Reordering Clerk: Loreta Zelaya MD Sodium [Moles/Vol] 133 mmol/L Low 136-145 [facility] Comment on above: Performed By: #### V BG #### [address] [place] [address] Reordering Clerk: Loreta Zelaya MD Urea nitrogen [Mass/Vol] 21 mg/dL High 6-20 [facility] Comment on above: Performed By: #### V BG #### [facility] [address] [place] [address] Reordering Clerk: Loreta Zelaya MD Comprehensive Metabolic Pane [facility] 11-14-2024 Albumin [Mass/Vol] 4.4 g/dL 3.5 - 5.2 g/dL [facility] Albumin/Globulin [Mass ratio] 1.6 {ratio} 1.0 - 2.5 [facility] ALP [Catalytic activity/Vol] 224 U/L High 35 - 104 U/L [facility] ALT [Catalytic activity/Vol] 24 U/L 10 - 35 U/L [facility] Anion gap [Moles/Vol] 13 mmol/L 9 - 16 mmol/L [facility] AST [Catalytic activity/Vol] 18 U/L 10 - 35 U/L [facility] Bilirubin [Mass/Vol] mg/dL 0.00 - 1.20 mg/dL [facility] Calcium [Mass/Vol] 9.4 mg/dL 8.6 - 10. 4 mg/dL [facility] Chloride [Moles/Vol] 95 mmol/L Low 98 - 10 7 mmol/L [facility] CO2 [Moles/Vol] 25 mmol/L 20 - 31 mmol/L [facility] Creatinine [Mass/Vol] 0.6 mg/dL 0.50 - 0.90 mg/dL [facility] Est, Glom Filt Rate - PINF [facility] Comment on above: These results are [...] high 74 - 9 9 mg/dL [facility] Interpretation and review of laboratory results Abnormal [facility] Potassium [Moles/Vol] 4.7 mmol/L 3.7 - 5.3 mmol/L [facility] Comment on above: Specimen hemolysis h as exceeded the interference as defined by Kat. Value may be falsely increased. Suggest recollection if clinically indicated. Protein [Mass/Vol] 7.1 g/dL 6.6 - 8.7 g/dL [facility] Sodium [Moles/Vol] 133 mmol/L Low 136 - 145 mmol/L [facility] Urea nitrogen [Mass/Vol] 21 mg/dL High 6 - 20 mg/dL [facility] Urea nitrogen/Creatinine [Mass ratio] 35 mg/mg High 9 - 20 [facility] C-Peptideon 10-18-2024 C-Peptide 0.2 ng/mL Low 1.1-4.4 [facility] Comment on above: Performed By: #### I NSU #### [facility] [address] [place], [place] [id number] Reordering Clerk: Gee Royal MD [facility] [address] [place] [address] Reordering Clerk: Loreta Zelaya MD #### CPEP #### [address] [place], [place] [id number] Reordering Clerk: Gee Royal MD CBC auto differentialon 10-03 Basophils (Bld) [#/Vol] 0.04 10*3/uL [facility] Basophils/100 WBC (Bld) 1 % 0 - 2 % B on [facility] Eosinophils (Bld) [#/Vol] 0.1 10*3/uL [facility] Eosinophils/100 WBC (Bld) 2 % 1 - 4 % [facility] Erythrocyte distribution width (RBC) [Ratio] 13.6 % 11.8 - 14.4 % [facility] Hematocrit (Bld) [Volume fraction] 36.9 % 36.3 - 47.1 % [facility] Hemoglobin (Bld) [Mass/Vol] 11.8 g/dL Low 11.9 - 15.1 g/dL [facility] Immature granulocytes (Bld) [#/Vol] [facility] Immature granulocytes/100 WBC (Bld) 1 % High 0 [facility] Interpretation and review of laboratory results Abnormal [facility] Lymphocytes/100 WBC (Bld) 39 % 24 - 43 % [facility] Lymphocytes/100 WBC (Bld) 1.62 % [facility] MCH (RBC) [Entitic mass] 33.1 pg 25.2 - 33.5 pg [facility] MCHC (RBC) [Mass/Vol] 32 g/dL 28.4 - 34.8 g/dL [facility] MCV (RBC) [Entitic vol] 103.4 fL High 82.6 - 102.9 fL [facility] Monocytes/100 WBC (Bld) 11 % 3 - 12 % B on [facility] Monocytes/100 WBC (Bld) 0.47 % B on [facility] Neutrophils/100 WBC (Bld) 46 % 36 - 65 % [facility] Nucleated RBC/100 WBC (Bld) [Ratio] 0 % 0.0 per 100 WBC [facility] Platelet mean volume (Bld) [Entitic vol] 10 fL 8.1 - 13.5 fL [facility] Platelets (Bld) [#/Vol] 256 10*3/uL [facility] RBC (Bld) [#/Vol] 3.57 10*6/uL Low 3.95 - 5.1 1 m/uL [facility] Segmented neutrophils/100 WBC (Bld) 1.91 % [facility] WBC other (Bld) [#/Vol] 4.2 B on [facility] CBC with Diffon 10-18-2024 Abs. Basophil 0.04 k/uL Normal 0.00-0.20 [facility] Comment on above: Performed By: #### U AMI #### [facility] [address] [place] [address] Reordering Clerk: Loreta Zelaya MD Abs.Imm.Granulocyte <0.03 Normal 0.00-0.30 [facility] Comment on above: Performed By: #### U AMIC #### [facility] [address] [place] [address] [place] 6528083 Reordering Clerk: Loreta Zelaya MD Abs.Neutrophil (Seg) 1.91 k/uL Normal 1.50-8.10 [facility] Comment on above: Performed By: #### U AMIC #### [address] [place] 6528083 Reordering Clerk: Loreta Zelaya MD Basophils/100 WBC (Bld) 1 % Normal 0-2 [facility] Comment on above: Performed By: #### U AMIC #### [address] [place] 6528083 Reordering Clerk: Loreta Zelaya MD Eosinophils (Bld) [#/Vol] 0.10 10*3/uL Normal 0.00-0.44 [facility] Comment on above: Performed By: #### U AMIC #### [address] [place], [facility]83 Reordering Clerk: Loreta Zelaya MD Eosinophils/100 WBC (Bld) 2 % Normal 1-4 [facility] Comment on above: Performed By: #### U AMIC #### [address] [place], [facility]83 Reordering Clerk: Loreta Zelaya MD Erythrocyte distribution width (RBC) [Ratio] 13.6 % Normal 11.8-14.4 [facility] Comment on above: Performed By: #### U AMIC #### [address] [place], [facility]83 Reordering Clerk: Loreta Zelaya MD Hematocrit (Bld) [Volume fraction] 36.9 % Normal 36.3-47.1 [facility] Comment on above: Performed By: #### U AMIC #### [facility] [address] [place], [place] [id number] Reordering Clerk: Loreta Zelaya MD Hemoglobin (Bld) [Mass/Vol] 11.8 g/dL Low 11.9-15.1 [facility] Comment on above: Performed By: #### U AMIC #### [facility] [address] [place], [place] [id number] Reordering Clerk: Loreta Zelaya MD Immature granulocytes/100 WBC (Bld) 1 % High 0 [facility] Comment on above: Performed By: #### U AMIC #### [address] [place] 2998483 Reordering Clerk: Loreta Zelaya MD Lymphocytes (Bld) [#/Vol] 1.62 10*3/uL Normal 1.10-3.70 [facility] Comment on above: Performed By: #### U AMIC #### [address] [place] 6208483 Reordering Clerk: Loreta Zelaya MD Lymphocytes/100 WBC (Bld) 39 % Normal 24-43 [facility] Comment on above: Performed By: #### U AMIC #### [address] [place] [id number] Reordering Clerk: Loreta Zelaya MD MCH (RBC) [Entitic mass] 33.1 pg Normal 25.2-33.5 [facility] Comment on above: Performed By: #### U AMIC #### [facility] [address] [place] [address] [address] [place] [id number] Reordering Clerk: Loreta Zelaya MD MCHC (RBC) [Mass/Vol] 32.0 g/dL Normal 28.4-34.8 [facility] Comment on above: Performed By: #### U AMIC #### [facility] [address] [place] [address] [address] [place] [id number] Reordering Clerk: Loreta Zelaya MD MCV (RBC) [Entitic vol] 103.4 fL High 82.6-102.9 [facility] Comment on above: Performed By: #### U AMIC #### [facility] [address] [place] [address] [place] [place], [place] 9794783 Reordering Clerk: Loreta Zelaya MD Monocytes (Bld) [#/Vol] 0.47 10*3/uL Normal 0.10-1.20 [facility] Comment on above: Performed By: #### U AMIC #### [address] [place] 6528083 Reordering Clerk: Loreta Zelaya MD Monocytes/100 WBC (Bld) 11 % Normal 3-12 [facility] Comment on above: Performed By: #### U AMIC #### [address] [place], [facility]83 Reordering Clerk: Loreta Zelaya MD Neutrophil (Seg) 46 % Normal 36-65 [facility] Comment on above: Performed By: #### U AMIC #### [address] [place], [facility]83 Reordering Clerk: Loreta Zelaya MD NRBC Automated 0.0 per 100 WBC Normal 0.0 [facility] Comment on above: Performed By: #### U AMIC #### [facility] [address] [place] [address] [place] [place], [facility]83 Reordering Clerk: Loreta Zelaya MD Platelet mean volume (Bld) [Entitic vol] 10.0 fL Normal 8.1-13.5 [facility] Comment on above: Performed By: #### U AMIC #### [address] [place] [address] Reordering Clerk: Loreta Zelaya MD Platelets (Bld) [#/Vol] 256 10*3/uL Normal 138-453 [facility] Comment on above: Performed By: #### U AMIC #### [facility] [address] [place], [place] 1294183 Reordering Clerk: Loreta Zelaya MD RBC (Bld) [#/Vol] 3.57 10*6/uL Low 3.95-5.11 [facility] Comment on above: Performed By: #### U AMIC #### [facility] [address] [place], [place] 7376583 Reordering Clerk: Loreta Zelaya MD WBC (Bld) [#/Vol] 4.2 10*3/uL Normal 3.5-11.3 [facility] Comment on above: Performed By: #### U AMIC #### [facility] [address] [place], [place] 1110183 Reordering Clerk: Loreta Zelaya MD Comp Metabolic Pr/rfx MGon 0 - Albumin [Mass/Vol] 2.9 g/dL Low 3.5-5.2 [facility] Comment on above: Performed By: #### U AMIC #### [facility] [address] [place], [place] 9402383 Reordering Clerk: Loreta Zelaya MD Albumin/Glob Ratio 1.7 Normal 1.0-2.5 [facility] Comment on above: Performed By: #### U AMIC #### [facility] [address] [place], [place] [id number] Reordering Clerk: Loreta Zelaya MD Alkaline Phos 82 U/L Normal 35-104 [facility] Comment on above: Performed By: #### U AMIC #### [facility] [address] [place] [address] Reordering Clerk: Loreta Zelaya MD ALT [Catalytic activity/Vol] 37 U/L High 10-35 [facility] Comment on above: Performed By: #### U AMIC #### [facility] [address] [place], [place] 5353683 Reordering Clerk: Loreta Zelaya MD Anion gap [Moles/Vol] 8 mmol/L Low 9-16 [facility] Comment on above: Performed By: #### U AMIC #### [facility] [address] [place], [place] [id number] Reordering Clerk: Loreta Zelaya MD AST [Catalytic activity/Vol] 44 U/L High 10-35 [facility] Comment on above: Performed By: #### U AMIC #### [facility] [address] [place], [place] 6292583 Reordering Clerk: Loreta Zelaya MD Bilirubin [Mass/Vol] mg/dL Normal 0.00-1.20 [facility] Comment on above: Performed By: #### U AMIC #### [facility] [address] [place], [place] 7593983 Reordering Clerk: Loreta Zelaya MD BUN/CRE Ratio 38 High 9-20 [facility] Comment on above: Performed By: #### U AMIC #### [facility] [address] [place], [place] 7595583 Reordering Clerk: Loreta Zelaya MD Calcium [Mass/Vol] 8.3 mg/dL Low 8.6-10.4 [facility] Comment on above: Performed By: #### U AMIC #### [facility] [address] [place], [place] [phone] Reordering Clerk: Loreta Zelaya MD Chloride [Moles/Vol] 104 mmol/L Normal 98-107 [facility] Comment on above: Performed By: #### U AMIC #### [facility] [address] [place], [place] 3333983 Reordering Clerk: Loreta Zelaya MD CO2 [Moles/Vol] 27 mmol/L Normal 20-31 [facility] Comment on above: Performed By: #### U AMIC #### [facility] [address] [place] [address] Reordering Clerk: Loreta Zelaya MD Creatinine [Mass/Vol] 0.4 mg/dL Low 0.50-0.90 [facility] Comment on above: Performed By: #### U AMIC #### [facility] [address] [place], [place] 4607383 Reordering Clerk: Loreta Zelaya MD GFR/1.73 sq M.predicted among non-blacks MDRD (S/P/Bld) [Vol rate/Area] mL/min/{1.73_m2} Normal >60 [facility] Comment on above: Result Comment: These results [...] secretion. Performed By: #### U AMIC #### [facility] [address] [place] [address] [place] [address] Reordering Clerk: Loreta Zelaya MD Glucose [Mass/Vol] 98 mg/dL Normal 74-99 [facility] Comment on above: Performed By: #### U AMIC #### [facility] [address] [place] [address] Reordering Clerk: Loreta Zelaya MD Potassium [Moles/Vol] 4.0 mmol/L Normal 3.7-5.3 [facility] Comment on above: Performed By: #### U AMIC #### [facility] [address] [place] [address] Reordering Clerk: Loreta Zelaya MD Protein [Mass/Vol] 4.7 g/dL Low 6.6-8.7 [facility] Comment on above: Performed By: #### U AMIC #### [facility] [address] [place] [address] Reordering Clerk: Loreta Zelaya MD Sodium [Moles/Vol] 139 mmol/L Normal 136-145 [facility] Comment on above: Performed By: #### U AMIC #### [facility] [address] [place] [address] Reordering Clerk: Loreta Zelaya MD Urea nitrogen [Mass/Vol] 15 mg/dL Normal 6-20 [facility] Comment on above: Performed By: #### U AMIC #### [facility] [address] [place] [address] Reordering Clerk: Loreta Zelaya MD Comprehensive Metabolic Pane l w/ Reflex to MGon 10-18-2024 Albumin [Mass/Vol] 2.9 g/dL Low 3.5 - 5.2 g/dL [facility] Albumin/Globulin [Mass ratio] 1.7 {ratio} 1.0 - 2.5 [facility] ALP [Catalytic activity/Vol] 82 U/L 35 - 104 U/L [facility] ALT [Catalytic activity/Vol] 37 U/L High 10 - 35 U/L [facility] Anion gap [Moles/Vol] 8 mmol/L Low 9 - 16 mmol/L [facility] AST [Catalytic activity/Vol] 44 U/L High 10 - 35 U/L [facility] Bilirubin [Mass/Vol] mg/dL 0.00 - 1.20 mg/dL [facility] Calcium [Mass/Vol] 8.3 mg/dL Low 8.6 - 10. 4 mg/dL [facility] Chloride [Moles/Vol] 104 mmol/L 98 - 10 7 mmol/L [facility] CO2 [Moles/Vol] 27 mmol/L 20 - 31 mmol/L [facility] Creatinine [Mass/Vol] 0.4 mg/dL Low 0.50 - 0.90 mg/dL [facility] Est, Glom Filt Rate - PINF [facility] Comment on above: These results are [...] 98 mg/dL 74 - 99 mg/dL [facility] Interpretation and review of laboratory results Abnormal [facility] Potassium [Moles/Vol] 4 mmol/L 3.7 - 5.3 mmol/L [facility] Protein [Mass/Vol] 4.7 g/dL Low 6.6 - 8.7 g/dL [facility] Sodium [Moles/Vol] 139 mmol/L 136 - 145 mmol/L [facility] Urea nitrogen [Mass/Vol] 15 mg/dL 6 - 20 mg/dL [facility] Urea nitrogen/Creatinine [Mass ratio] 38 mg/mg High 9 - 20 [facility] EKG Rhythm Stripon 5 [facility] Glucose, Whole Bloodon 10-18 Glucose [Mass/Vol] 230 mg/dL High 74 - 100 mg/dL [facility] Interpretation and review of laboratory results Abnormal [facility] Glucose [Mass/Vol] 230 mg/dL High 74-100 [facility] Glucose [Mass/Vol] 99 mg/dL 74 - 100 mg/dL [facility] Glucose [Mass/Vol] 99 mg/dL Normal 74-100 [facility] Insulinon 10-18-2024 Insulin 1.1 mU/L Normal [facility] Comment on above: Performed By: #### I NSU #### [facility] [employer] [address] [place] [address] Reordering Clerk: Gee Royal MD [facility] [address] [place] [address] Reordering Clerk: Loreta Zelaya MD #### CPEP #### [address] [place] [address] Reordering Clerk: Gee Royal MD Reference Range Normal [facility] Comment on above: Result Comment: Fast in.6-24.9 30 min: 20-112 60 min: 29-88 90 min: 26-84 120 min: 22-79 Performed By: #### I NSU #### [address] [address] Reordering Clerk: Gee Royal MD [facility] [address] [place] [address] [place] [address] Reordering Clerk: Loreta Zelaya MD #### CPEP #### [address] [address] Reordering Clerk: Gee Royal MD Collection Info. [id number] Normal [facility] Comment on above: Performed By: #### I NSU #### [address] [address] Reordering Clerk: Gee Royal MD [facility] [address] [place] [address] [place] [address] Reordering Clerk: Loreta Zelaya MD #### CPEP #### [address] [address] Reordering Clerk: Gee Royal MD TSHon 10-18-2024 TSH Qn 3.09 m[IU]/L [facility] Thyroid Stim. Horm.on 2024 Thyroid Stim. Horm. 3.09 uIU/mL Normal 0.27-4.20 [facility] Comment on above: Performed By: #### U AMIC #### [facility] [address] [place] [address] Reordering Clerk: Loreta Zelaya MD Thyroxine, Freeon 10-18-2024 Thyroxine, Free 0.9 ng/dL Low 0.92-1.68 [facility] Comment on above: Performed By: #### U AMIC #### [facility] [address] [place], [place] [id number] Reordering Clerk: Loreta Zelaya MD Albumin/Creat Ratio, Urineon 10-17-2024 Albumin,conc.[place] U <12 Normal 0-20 [facility] Comment on above: Performed By: #### U AMIC #### [facility] [address] [place], [place] [id number] Reordering Clerk: Loreta Zelaya MD Albumin/Creat Ratio Can not be calculated Normal 0.0-25.0 [facility] Comment on above: Performed By: #### U AMIC #### [facility] [address] [place], [place] 5702383 Reordering Clerk: Loreta Zelaya MD Creatinine Conc. 46.7 mg/dL Normal 28.0-217.0 [facility] Comment on above: Result Comment: Refe rence range defined for 1st morning urine Performed By: #### U AMIC #### [facility] [address] [place] [address] [place] [address] Reordering Clerk: Loreta Zelaya MD Albumin/Creatinine Ratio, Ur ineon 10-17-2024 Albumin DL <= 20 mg/L (U) [Mass/Vol] mg/L 0 - 20 mg/L [facility] Albumin/Creatinine DL <= 20 mg/L (U) [Ratio] Can not be calculated [facility] Creatinine (U) [Mass/Vol] 46.7 mg/dL 28.0 - 217.0 mg/dL [facility] Comment on above: Reference range defi radha for 1st morning urine [facility] CBC auto differentialon 10-03 Basophils (Bld) [#/Vol] 0.04 10*3/uL [facility] [facility] Bas[facility]/100 WBC (Bld) 1 % 0 - 2 % B on [facility] Eosinophils (Bld) [#/Vol] 0.11 10*3/uL [facility] Eosinophils/100 WBC (Bld) 3 % 1 - 4 % [facility] Erythrocyte distribution width (RBC) [Ratio] 13.5 % 11.8 - 14.4 % [facility] Hematocrit (Bld) [Volume fraction] 34.7 % Low 36.3 - 47.1 % [facility] Hemoglobin (Bld) [Mass/Vol] 11.3 g/dL Low 11.9 - 15.1 g/dL [facility] Immature granulocytes (Bld) [#/Vol] [facility] Immature granulocytes/100 WBC (Bld) 1 % High 0 [facility] Interpretation and review of laboratory results Abnormal [facility] Lymphocytes/100 WBC (Bld) 45 % High 24 - 43 % [facility] Lymphocytes/100 WBC (Bld) 1.57 % [facility] MCH (RBC) [Entitic mass] 33 pg 25.2 - 33.5 pg [facility] MCHC (RBC) [Mass/Vol] 32.6 g/dL 28.4 - 34.8 g/dL [facility] MCV (RBC) [Entitic vol] 101.5 fL 82.6 - 102.9 fL [facility] Monocytes/100 WBC (Bld) 14 % High 3 - 12 % B on [facility] Monocytes/100 WBC (Bld) 0.48 % B on [facility] Neutrophils/100 WBC (Bld) 36 % 36 - 65 % [facility] Nucleated RBC/100 WBC (Bld) [Ratio] 0 % 0.0 per 100 WBC [facility] Platelet mean volume (Bld) [Entitic vol] 10.1 fL 8.1 - 13.5 fL [facility] Platelets (Bld) [#/Vol] 219 10*3/uL [facility] RBC (Bld) [#/Vol] 3.42 10*6/uL Low 3.95 - 5.1 1 m/uL [facility] Segmented neutrophils/100 WBC (Bld) 1.26 % Low [facility] WBC other (Bld) [#/Vol] 3.5 B on [facility] Bon [facility] CBC with Diffon 10-17-2024 Abs. Basophil 0.04 k/uL Normal 0.00-0.20 [facility] Comment on above: Performed By: #### B MP #### [facility] [address] [place] [address] Reordering Clerk: Loreta Zelaya MD Abs.Imm.Granulocyte <0.03 Normal 0.00-0.30 [facility] Comment on above: Performed By: #### B MP #### [facility] [address] [place] [address] Reordering Clerk: Loreta Zelaya MD Abs.Neutrophil (Seg) 1.26 k/uL Low 1.50-8.10 [facility] Comment on above: Performed By: #### B MP #### [facility] [address] [place] [address] [place] [place], [place] [id number] Reordering Clerk: Loreta Zelaya MD Basophils/100 WBC (Bld) 1 % Normal 0-2 [facility] Comment on above: Performed By: #### B MP #### [address] [place] [address] Reordering Clerk: Loreta Zelaya MD Eosinophils (Bld) [#/Vol] 0.11 10*3/uL Normal 0.00-0.44 [facility] Comment on above: Performed By: #### B MP #### [facility] [address] [place] [address] Reordering Clerk: Loreta Zelaya MD Eosinophils/100 WBC (Bld) 3 % Normal 1-4 [facility] Comment on above: Performed By: #### B MP #### [facility] [address] [place], [place] [id number] Reordering Clerk: Loreta Zelaya MD Erythrocyte distribution width (RBC) [Ratio] 13.5 % Normal 11.8-14.4 [facility] Comment on above: Performed By: #### B MP #### [facility] [address] [place], [place] [id number] Reordering Clerk: Loreta Zelaya MD Hematocrit (Bld) [Volume fraction] 34.7 % Low 36.3-47.1 [facility] Comment on above: Performed By: #### B MP #### [facility] [address] [place], [place] [id number] Reordering Clerk: Loreta Zelaya MD Hemoglobin (Bld) [Mass/Vol] 11.3 g/dL Low 11.9-15.1 [facility] Comment on above: Performed By: #### B MP #### [facility] [address] [place], [place] [id number] Reordering Clerk: Loreta Zelaya MD Immature granulocytes/100 WBC (Bld) 1 % High 0 [facility] Comment on above: Performed By: #### B MP #### [facility] [address] [place], [facility]83 Reordering Clerk: Loreta Zelaya MD Lymphocytes (Bld) [#/Vol] 1.57 10*3/uL Normal 1.10-3.70 [facility] Comment on above: Performed By: #### B MP #### [facility] [address] [place], [facility]83 Reordering Clerk: Loreta Zelaya MD Lymphocytes/100 WBC (Bld) 45 % High 24-43 [facility] Comment on above: Performed By: #### B MP #### [facility] [address] [place] [id number] Reordering Clerk: Loreta Zelaya MD MCH (RBC) [Entitic mass] 33.0 pg Normal 25.2-33.5 [facility] Comment on above: Performed By: #### B MP #### [facility] [address] [place] [address] Reordering Clerk: Loreta Zelaya MD MCHC (RBC) [Mass/Vol] 32.6 g/dL Normal 28.4-34.8 [facility] Comment on above: Performed By: #### B MP #### [address] [place], [place] [id number] Reordering Clerk: Loreta Zelaya MD MCV (RBC) [Entitic vol] 101.5 fL Normal 82.6-102.9 [facility] Comment on above: Performed By: #### B MP #### [address] [place], [place] 4654583 Reordering Clerk: Loreta Zelaya MD Monocytes (Bld) [#/Vol] 0.48 10*3/uL Normal 0.10-1.20 [facility] Comment on above: Performed By: #### B MP #### [address] [place], [place] 2568083 Reordering Clerk: Loreta Zelaya MD Monocytes/100 WBC (Bld) 14 % High 3-12 [facility] Comment on above: Performed By: #### B MP #### [address] [place], [place] 3728183 Reordering Clerk: Loreta Zelaya MD Neutrophil (Seg) 36 % Normal 36-65 [facility] Comment on above: Performed By: #### B MP #### [address] [place], [facility]83 Reordering Clerk: Loreta Zelaya MD NRBC Automated 0.0 per 100 WBC Normal 0.0 [facility] Comment on above: Performed By: #### B MP #### [address] [place], [place] 6542783 Reordering Clerk: Loreta Zelaya MD Platelet mean volume (Bld) [Entitic vol] 10.1 fL Normal 8.1-13.5 [facility] Comment on above: Performed By: #### B MP #### [facility] [address] [place], [place] [id number] Reordering Clerk: Loreta Zelaya MD Platelets (Bld) [#/Vol] 219 10*3/uL Normal 138-453 [facility] Comment on above: Performed By: #### B MP #### [facility] [address] [place], [place] 7356983 Reordering Clerk: Loreta Zelaya MD RBC (Bld) [#/Vol] 3.42 10*6/uL Low 3.95-5.11 [facility] Comment on above: Performed By: #### B MP #### [facility] [address] [place], [place] [id number] Reordering Clerk: Loreta Zelaya MD WBC (Bld) [#/Vol] 3.5 10*3/uL Normal 3.5-11.3 [facility] Comment on above: Performed By: #### B MP #### [address] [place], [place] 1986283 Reordering Clerk: Loreta Zelaya MD CTA ABDOMEN PELVIS W [...] Hosea Martinez MD 10/17/24 Final result Normal [facility] CTA Abdominal vessels and Pe lvis vessels W contrast Wesley 10-17-2024 1. Unremarkable abdominopelvic arteries. No aneurysm or dissection. 2. Moderate diffuse body wall edema which may reflect anasarca. 3. Uterus appears unremarkable as visualized. 4. Probable constipation. 5. Additional findings, as above. [facility] CONSOLIDATED EXAMINATION: CTA OF THE ABDOMEN AND [...] constipation. 5. Additional findings, as above. [facility] Radiology Study observation (narrative) [facility] CTA Abdominal vessels and Pe lvis vessels W contrast IVOrdered By: Hosea Martinez on 10-17-2024 [facility] Work Phone: Comp Metabolic Pr/rfx MGon 0 10-17-2024 Albumin [Mass/Vol] 3.0 g/dL Low 3.5-5.2 [facility] Comment on above: Performed By: #### B MP #### [facility] [address] [place] [address] Reordering Clerk: Loreta Zelaya MD Albumin/Glob Ratio 1.9 Normal 1.0-2.5 [facility] Comment on above: Performed By: #### B MP #### [facility] [address] [place], [place] [id number] Reordering Clerk: Loreta Zelaya MD Alkaline Phos 104 U/L Normal 35-104 [facility] Comment on above: Performed By: #### B MP #### [facility] [address] [place], [place] 5535383 Reordering Clerk: Loreta Zelaya MD ALT [Catalytic activity/Vol] 34 U/L Normal 10-35 [facility] Comment on above: Performed By: #### B MP #### [facility] [address] [place], [place] 4863283 Reordering Clerk: Loreta Zelaya MD Anion gap [Moles/Vol] 8 mmol/L Low 9-16 [facility] Comment on above: Performed By: #### B MP #### [facility] [address] [place], [place] 9259283 Reordering Clerk: Loreta Zelaya MD AST [Catalytic activity/Vol] 28 U/L Normal 10-35 [facility] Comment on above: Performed By: #### B MP #### [facility] [address] [place], [place] 3590283 Reordering Clerk: Loreta Zelaya MD Bilirubin [Mass/Vol] mg/dL Normal 0.00-1.20 [facility] Comment on above: Performed By: #### B MP #### [facility] [address] [place], [place] 0428283 Reordering Clerk: Loreta Zelaya MD BUN/CRE Ratio 38 High 9-20 [facility] Comment on above: Performed By: #### B MP #### [facility] [address] [place], [place] 0131683 Reordering Clerk: Loreta Zelaya MD Calcium [Mass/Vol] 8.2 mg/dL Low 8.6-10.4 [facility] Comment on above: Performed By: #### B MP #### [facility] [address] [place], [place] 0232083 Reordering Clerk: Loreta Zelaya MD Chloride [Moles/Vol] 103 mmol/L Normal 98-107 [facility] Comment on above: Performed By: #### B MP #### [facility] [address] [place], [place] 3139683 Reordering Clerk: Loreta Zelaya MD CO2 [Moles/Vol] 26 mmol/L Normal 20-31 [facility] Comment on above: Performed By: #### B MP #### [facility] [address] [place], [place] 8828483 Reordering Clerk: Loreta Zelaya MD Creatinine [Mass/Vol] 0.4 mg/dL Low 0.50-0.90 [facility] Comment on above: Performed By: #### B MP #### [facility] [address] [place], [place] 9657383 Reordering Clerk: Loreta Zelaya MD GFR/1.73 sq M.predicted among non-blacks MDRD (S/P/Bld) [Vol rate/Area] mL/min/{1.73_m2} Normal >60 [facility] Comment on above: Result Comment: These results [...] secretion. Performed By: #### B MP #### [facility] [address] [place] [address] Reordering Clerk: Loreta Zelaya MD Glucose [Mass/Vol] 248 mg/dL High 74-99 [facility] Comment on above: Performed By: #### B MP #### [facility] [address] [place] [address] [place] [address] Reordering Clerk: Loreta Zelaya MD Potassium [Moles/Vol] 3.8 mmol/L Normal 3.7-5.3 [facility] Comment on above: Performed By: #### B MP #### [facility] [address] [place] [address] [place] [place], [place] 8152483 Reordering Clerk: Loreta Zelaya MD Protein [Mass/Vol] 4.5 g/dL Low 6.6-8.7 [facility] Comment on above: Performed By: #### B MP #### [address] [place], [place] 6024283 Reordering Clerk: Loreta Zelaya MD Sodium [Moles/Vol] 137 mmol/L Normal 136-145 [facility] Comment on above: Performed By: #### B MP #### [address] [place], [place] 6839983 Reordering Clerk: Loreta Zelaya MD Urea nitrogen [Mass/Vol] 15 mg/dL Normal 6-20 [facility] Comment on above: Performed By: #### B MP #### [facility] [address] [place] [address] [place] [place], [place] 5843683 Reordering Clerk: Loreta Zelaya MD Comprehensive Metabolic Pane l w/ Reflex to MGon 10-17-2024 Albumin [Mass/Vol] 3 g/dL Low 3.5 - 5.2 g/dL [facility] Albumin/Globulin [Mass ratio] 1.9 {ratio} 1.0 - 2.5 [facility] ALP [Catalytic activity/Vol] 104 U/L 35 - 104 U/L [facility] ALT [Catalytic activity/Vol] 34 U/L 10 - 35 U/L [facility] Anion gap [Moles/Vol] 8 mmol/L Low 9 - 16 mmol/L [facility] AST [Catalytic activity/Vol] 28 U/L 10 - 35 U/L [facility] Bilirubin [Mass/Vol] mg/dL 0.00 - 1.20 mg/dL [facility] Calcium [Mass/Vol] 8.2 mg/dL Low 8.6 - 10. 4 mg/dL [facility] Chloride [Moles/Vol] 103 mmol/L 98 - 10 7 mmol/L [facility] CO2 [Moles/Vol] 26 mmol/L 20 - 31 mmol/L [facility] Creatinine [Mass/Vol] 0.4 mg/dL Low 0.50 - 0.90 mg/dL [facility] Est, Glohayley Garciat Rate - PINF [facility] Comment on above: These results are [...] mg/dL High 74 - 99 mg/dL [facility] Interpretation and review of laboratory results Abnormal [facility] Potassium [Moles/Vol] 3.8 mmol/L 3.7 - 5.3 mmol/L [facility] Protein [Mass/Vol] 4.5 g/dL Low 6.6 - 8.7 g/dL [facility] Sodium [Moles/Vol] 137 mmol/L 136 - 145 mmol/L [facility] Urea nitrogen [Mass/Vol] 15 mg/dL 6 - 20 mg/dL [facility] Urea nitrogen/Creatinine [Mass ratio] 38 mg/mg High 9 - 20 [facility] EKG 12 Leadon 10-17-2024 Atrial Rate 88 BPM [facility] P [place] 68 degrees [facility] P-R Interval 144 ms [facility] Q-T Interval 380 ms [facility] QRS Duration 82 ms [facility] QTc Calculation (Bazett) 459 ms [facility] R [place] 42 degrees [facility] T [place] 63 degrees [facility] Ventricular Rate 88 BPM [facility] Normal sinus rhythm Low voltage QRS Borderline ECG No previous ECGs available Confirmed by BECKY AVILA ([id number]) on 10/17/2024 9:32:24 AM [facility] Becky Avila MD - 10/17/2024 Normal sinus rhythm Low voltage QRS Borderline ECG No previous ECGs available Confirmed by BECKY AVILA ([id number]) on 10/17/2024 9:32:24 AM [facility] EKG Rhythm Stripon [facility] Glucose, Whole Bloodon 10-17 Glucose [Mass/Vol] 119 mg/dL High 74 - 100 mg/dL [facility] Interpretation and review of laboratory results Abnormal [facility] Glucose [Mass/Vol] 119 mg/dL High 74-100 [facility] Glucose [Mass/Vol] 191 mg/dL High 74 - 100 mg/dL [facility] Interpretation and review of laboratory results Abnormal [facility] Glucose [Mass/Vol] 191 mg/dL High 74-100 [facility] Glucose [Mass/Vol] 111 mg/dL High 74 - 100 mg/dL [facility] Interpretation and review of laboratory results Abnormal [facility] Glucose [Mass/Vol] 111 mg/dL High 74-100 [facility] Glucose [Mass/Vol] 172 mg/dL High 74 - 100 mg/dL [facility] Interpretation and review of laboratory results Abnormal [facility] Glucose [Mass/Vol] 172 mg/dL High 74-100 [facility] Glucose [Mass/Vol] 402 mg/dL High 74 - 100 mg/dL [facility] Interpretation and review of laboratory results Abnormal [facility] Glucose [Mass/Vol] 402 mg/dL High 74-100 [facility] Hemoglobin A1Con 10-17-2024 Average glucose Estimated from glycated hemoglobin (Bld) [Mass/Vol] 364 mg/dL [facility] Comment on above: The ADA and AACC rec ommend providing the estimated average glucose result to permit better patient understanding of their HBA1c result. HbA1c (Bld) [Mass fraction] 14.3 % High 4.0 - 6.0 % [facility] Interpretation and review of laboratory results Abnormal [facility] Glucose [Mass/Vol] 364 mg/dL Normal [facility] Comment on above: Result Comment: The ADA and AACC recommend providing the estimated average glucose result to permit better patient understanding of their HBA1c result. Performed By: #### C DP #### [facility] [address] [place] [address] Reordering Clerk: Loreta Zelaya MD HbA1c (Bld) [Mass fraction] 14.3 % High 4.0-6.0 [facility] Comment on above: Performed By: #### C DP #### [facility] [address] [place] [address] Reordering Clerk: Loreta Zelaya MD Osmolality, Urineon 10-18-19 25 Osmolality (U) [Osmolality] 476 mosm/kg [facility] Osmolality - Urine 476 mOsm/kg Normal 80-1300 [facility] Comment on above: Performed By: #### U OSMO #### [facility] [address] [place] [address] Reordering Clerk: Gee Royal MD #### URNA #### [facility] [address] [place] [address] Reordering Clerk: Loreta Zelaya MD Protein / creatinine ratio, urineon 10-17-2024 Creatinine (U) [Mass/Vol] 43.9 mg/dL 28.0 - 217.0 mg/dL [facility] Interpretation and review of laboratory results Abnormal [facility] Protein (U) [Mass/Vol] 10 mg/dL [facility] Comment on above: No normal range esta blished. Urine Total Protein Creatinine Ratio 0.23 High 0.00 - 0.20 [facility] Protein,Tot,[place] Uron 2024 Creatinine [Mass/Vol] 43.9 mg/dL Normal 28.0-217.0 [facility] Comment on above: Performed By: #### C DP #### [facility] [address] [place], [place] [id number] Reordering Clerk: Loreta Zelaya MD Tot Prot. Conc. 10 mg/dL Normal [facility] Comment on above: Result Comment: No n ormal range established. Performed By: #### C DP #### [facility] [address] [place], [place] [id number] Reordering Clerk: Loreta Zelaya MD TP/Cre Ratio 0.23 High 0.00-0.20 [facility] Comment on above: Performed By: #### C DP #### [facility] [address] [place], [place] 2414183 Reordering Clerk: Loreta Zelaya MD Sodium, Random Uron 10-18-19 25 Sodium (U) [Moles/Vol] 30 mmol/L Normal [facility] Comment on above: No normal range esta blished. Result Comment: No n ormal range established. Performed By: #### U OSMO #### [facility] [employer] [address] [place], [place] [id number] Reordering Clerk: Gee Royal MD #### URNA #### [facility] [address] [place] [address] Reordering Clerk: Loreta Zelaya MD Sodium, urine, randomon 04- [facility] Urinalysis w/ Microon 2024 Bacteria 2+ Abnormal NONE [facility] Comment on above: Performed By: #### B MP #### [facility] [address] [place], [place] [id number] Reordering Clerk: Loreta Zelaya MD Bilirubin, SemiQt,Ur Negative Normal NEG [facility] Comment on above: Performed By: #### B MP #### [facility] [address] [place], [place] [id number] Reordering Clerk: Loreta Zelaya MD Blood, Urine Negative Normal NEG [facility] Comment on above: Performed By: #### B MP #### [facility] [address] [place], [place] 7016983 Reordering Clerk: Loreta Zelaya MD Clarity (U) Clear Normal CLEAR [facility] Comment on above: Performed By: #### B MP #### [facility] [address] [place], [place] 1561283 Reordering Clerk: Loreta Zelaya MD Color (U) Yellow Normal YEL [facility] Comment on above: Performed By: #### B MP #### [facility] [address] [place], [place] 7331283 Reordering Clerk: Loreta Zelaya MD Epithelial cells LM Ql (Urine sed) 5 TO 10 Normal 0-25 [facility] Comment on above: Performed By: #### B MP #### [facility] [address] [place] [address] Reordering Clerk: Loreta Zelaya MD Glucose Ql (U) 3+ mg/dL Abnormal NEG [facility] Comment on above: Performed By: #### B MP #### [facility] [address] [place], [place] 9491083 Reordering Clerk: Loreta Zelaya MD Ketones Ql (U) Negative Normal NEG [facility] Comment on above: Performed By: #### B MP #### [facility] [address] [place], [place] [id number] Reordering Clerk: Loreta Zelaya MD Leukocyte esterase Test strip Ql (U) Negative Normal NEG [facility] Comment on above: Performed By: #### B MP #### [facility] [address] [place] [address] [place] [place], [place] [id number] Reordering Clerk: Loreta Zelaya MD Nitrite,Ur Negative Normal NEG [facility] Comment on above: Performed By: #### B MP #### [facility] [address] [place] [address] [place], [place] [id number] Reordering Clerk: Loreta Zelaya MD PH,Ur 6.0 Normal 5.0-9.0 [facility] Comment on above: Performed By: #### B MP #### [address] [place], [place] 9475383 Reordering Clerk: Loreta Zelaya MD Protein Ql (U) Negative Normal NEG [facility] Comment on above: Performed By: #### B MP #### [facility] [address] [place] [address] [place], [place] [id number] Reordering Clerk: Loreta Zelaya MD Spec. Millen,Ur 1.010 Normal 1.010-1.020 [facility] Comment on above: Performed By: #### B MP #### [address] [place], [place] 0185583 Reordering Clerk: Loreta Zelaya MD Urine RBC's 0 TO 2 Normal 0-2 [facility] Comment on above: Performed By: #### B MP #### [facility] [address] [place] [address] [place], [place] [id number] Reordering Clerk: Loreta Zelaya MD Urine WBC's 2 TO 5 Normal 0-5 [facility] Comment on above: Performed By: #### B MP #### [facility] [address] [place] [address] [place], [place] 5783883 Reordering Clerk: Loreta Zelaya MD Urobilinogen,Ur Normal Normal 0.0-1.0 [facility] Comment on above: Performed By: #### B MP #### [facility] [address] [place] [address] Reordering Clerk: Loreta Zelaya MD Yeast PRESENCE NOTED Abnormal NONE [facility] Comment on above: Performed By: #### B MP #### [facility] [address] [place] [address] Reordering Clerk: Loreta Zelaya MD Urinalysis with Microscopico n 10-17-2024 Bacteria LM Ql (Urine sed) 2+ Abnormal None [facility] Bilirubin Ql (U) Negative NEGATIVE [facility] Clarity (U) Clear Clear [facility] Color (U) Yellow Yellow [facility] Epithelial cells LM.HPF (Urine sed) [#/Area] 5 TO 10 [facility] Glucose Test strip (U) [Mass/Vol] 3+ Abnormal NEGATIVE mg/dL [facility] Hemoglobin Auto test strip Ql (U) Negative NEGATIVE [facility] Interpretation and review of laboratory results Abnormal [facility] Ketones (U) [Mass/Vol] Negative NEGAT [place] mg/dL [facility] Leukocyte esterase Test strip Ql (U) Negative NEGATIVE [facility] Nitrite Ql (U) Negative NEGATIVE [place] [facility] pH (U) 6 [pH] 5.0 - 9.0 [facility] Protein (U) [Mass/Vol] Negative NEGAT [place] mg/dL [facility] RBC LM.HPF (Urine sed) [#/Area] 0 TO 2 [facility] Specific gravity (U) [Rel density] 1.01 1.010 - 1.020 [facility] Urobilinogen Qn (U) Normal 0.0 - 1. 0 EU/dL [facility] WBC LM.HPF (Urine sed) [#/Area] 2 TO 5 [facility] Yeast LM Ql (Urine sed) PRESENCE NOTED Abnormal None [facility] Brain Natri. Peptideon 10-16 Natriuretic peptide B (Bld) [Mass/Vol] 299 pg/mL High 0-125 [facility] Comment on above: Performed By: #### C DP #### [facility] [address] [place] [address] Reordering Clerk: Loreta Zelaya MD Brain Natriuretic Peptideon 10-16-2024 Natriuretic peptide B (Bld) [Mass/Vol] 299 pg/mL High 0 - 125 pg/mL [facility] CBC with Auto Differentialon 10-16-2024 Basophils (Bld) [#/Vol] 0.05 10*3/uL [facility] Basophils/100 WBC (Bld) 1 % 0 - 2 % B on [facility] Eosinophils (Bld) [#/Vol] 0.12 10*3/uL [facility] Eosinophils/100 WBC (Bld) 3 % 1 - 4 % [facility] Erythrocyte distribution width (RBC) [Ratio] 13.3 % 11.8 - 14.4 % [facility] Hematocrit (Bld) [Volume fraction] 35.7 % Low 36.3 - 47.1 % [facility] Hemoglobin (Bld) [Mass/Vol] 11.7 g/dL Low 11.9 - 15.1 g/dL [facility] Immature granulocytes (Bld) [#/Vol] [facility] Immature granulocytes/100 WBC (Bld) 0 % 0 [facility] Interpretation and review of laboratory results Abnormal [facility] Lymphocytes/100 WBC (Bld) 34 % 24 - 43 % [facility] Lymphocytes/100 WBC (Bld) 1.57 % [facility] MCH (RBC) [Entitic mass] 33.5 pg 25.2 - 33.5 pg [facility] MCHC (RBC) [Mass/Vol] 32.8 g/dL 28.4 - 34.8 g/dL [facility] MCV (RBC) [Entitic vol] 102.3 fL 82.6 - 102.9 fL [facility] Monocytes/100 WBC (Bld) 12 % 3 - 12 % B on [facility] Monocytes/100 WBC (Bld) 0.55 % B on [facility] Neutrophils/100 WBC (Bld) 50 % 36 - 65 % [facility] Nucleated RBC/100 WBC (Bld) [Ratio] 0 % 0.0 per 100 WBC [facility] Platelet mean volume (Bld) [Entitic vol] 10.4 fL 8.1 - 13.5 fL [facility] Platelets (Bld) [#/Vol] 238 10*3/uL [facility] RBC (Bld) [#/Vol] 3.49 10*6/uL Low 3.95 - 5.1 1 m/uL [facility] Segmented neutrophils/100 WBC (Bld) 2.37 % [facility] WBC other (Bld) [#/Vol] 4.7 B on [facility] CBC with Diffon 10-16-2024 Abs. Basophil 0.05 k/uL Normal 0.00-0.20 [facility] Comment on above: Performed By: #### C DP #### [facility] [address] [place] [address] [place] [place], [place] [id number] Reordering Clerk: Loreta Zelaya MD Abs.Imm.Granulocyte <0.03 Normal 0.00-0.30 [facility] Comment on above: Performed By: #### C DP #### [facility] [address] [place] [address] [place] [address] Reordering Clerk: Loreta Zelaya MD Abs.Neutrophil (Seg) 2.37 k/uL Normal 1.50-8.10 [facility] Comment on above: Performed By: #### C DP #### [facility] [address] [place], [place] [id number] Reordering Clerk: Loreta Zelaya MD Basophils/100 WBC (Bld) 1 % Normal 0-2 [facility] Comment on above: Performed By: #### C DP #### [facility] [address] [place], [place] [id number] Reordering Clerk: Loreta Zelaya MD Eosinophils (Bld) [#/Vol] 0.12 10*3/uL Normal 0.00-0.44 [facility] Comment on above: Performed By: #### C DP #### [facility] [address] [place], [facility]83 Reordering Clerk: Loreta Zelaya MD Eosinophils/100 WBC (Bld) 3 % Normal 1-4 [facility] Comment on above: Performed By: #### C DP #### [facility] [address] [place], [place] [address] Reordering Clerk: Loreta Zelaya MD Erythrocyte distribution width (RBC) [Ratio] 13.3 % Normal 11.8-14.4 [facility] Comment on above: Performed By: #### C DP #### [address] [place] [address] Reordering Clerk: Loreta Zelaya MD Hematocrit (Bld) [Volume fraction] 35.7 % Low 36.3-47.1 [facility] Comment on above: Performed By: #### C DP #### [address] [place], [place] [address] Reordering Clerk: Loreta Zelaya MD Hemoglobin (Bld) [Mass/Vol] 11.7 g/dL Low 11.9-15.1 [facility] Comment on above: Performed By: #### C DP #### [address] [place], [place] [address] Reordering Clerk: Loreta Zelaya MD Immature granulocytes/100 WBC (Bld) 0 % Normal 0 [facility] Comment on above: Performed By: #### C DP #### [address] [place], [facility]83 Reordering Clerk: Loreta Zelaya MD Lymphocytes (Bld) [#/Vol] 1.57 10*3/uL Normal 1.10-3.70 [facility] Comment on above: Performed By: #### C DP #### [facility] [address] [place], [place] [id number] Reordering Clerk: Loreta Zelaya MD Lymphocytes/100 WBC (Bld) 34 % Normal 24-43 [facility] Comment on above: Performed By: #### C DP #### [facility] [address] [place], [facility]83 Reordering Clerk: Loreat Zelaya MD MCH (RBC) [Entitic mass] 33.5 pg Normal 25.2-33.5 [facility] Comment on above: Performed By: #### C DP #### [facility] [address] [place] [address] Reordering Clerk: Loreta Zelaya MD MCHC (RBC) [Mass/Vol] 32.8 g/dL Normal 28.4-34.8 [facility] Comment on above: Performed By: #### C DP #### [address] [place] [id number] Reordering Clerk: Loreta Zelaya MD MCV (RBC) [Entitic vol] 102.3 fL Normal 82.6-102.9 [facility] Comment on above: Performed By: #### C DP #### [address] [place], [facility]83 Reordering Clerk: Loreta Zelaya MD Monocytes (Bld) [#/Vol] 0.55 10*3/uL Normal 0.10-1.20 [facility] Comment on above: Performed By: #### C DP #### [facility] [address] [place], [facility]83 Reordering Clerk: Loreta Zelaya MD Monocytes/100 WBC (Bld) 12 % Normal 3-12 [facility] Comment on above: Performed By: #### C DP #### [facility] [address] [place], [facility]83 Reordering Clerk: Loreta Zelaya MD Neutrophil (Seg) 50 % Normal 36-65 [facility] Comment on above: Performed By: #### C DP #### [facility] [address] [place], [place] [id number] Reordering Clerk: Loreta Zelaya MD NRBC Automated 0.0 per 100 WBC Normal 0.0 [facility] Comment on above: Performed By: #### C DP #### [facility] [address] [place], [place] [phone] Reordering Clerk: Loreta Zelaya MD Platelet mean volume (Bld) [Entitic vol] 10.4 fL Normal 8.1-13.5 [facility] Comment on above: Performed By: #### C DP #### [facility] [address] [place], [place] [phone] Reordering Clerk: Loreta Zelaya MD Platelets (Bld) [#/Vol] 238 10*3/uL Normal 138-453 [facility] Comment on above: Performed By: #### C DP #### [facility] [address] [place], [place] [phone] Reordering Clerk: Loreta Zelaya MD RBC (Bld) [#/Vol] 3.49 10*6/uL Low 3.95-5.11 [facility] Comment on above: Performed By: #### C DP #### [facility] [address] [place] [address] Reordering Clerk: Loreta Zelaya MD WBC (Bld) [#/Vol] 4.7 10*3/uL Normal 3.5-11.3 [facility] Comment on above: Performed By: #### C DP #### [facility] [address] [place], [place] [id number] Reordering Clerk: Loreta Zelaya MD CMPon 10-16-2024 Albumin [Mass/Vol] 3.3 g/dL Low 3.5 - 5.2 g/dL [facility] Albumin/Globulin [Mass ratio] 1.8 {ratio} 1.0 - 2.5 [facility] ALP [Catalytic activity/Vol] 153 U/L High 35 - 104 U/L [facility] ALT [Catalytic activity/Vol] 49 U/L High 10 - 35 U/L [facility] Anion gap [Moles/Vol] 9 mmol/L 9 - 16 mmol/L [facility] AST [Catalytic activity/Vol] 56 U/L High 10 - 35 U/L [facility] Bilirubin [Mass/Vol] mg/dL 0.00 - 1.20 mg/dL [facility] Calcium [Mass/Vol] 8.4 mg/dL Low 8.6 - 10. 4 mg/dL [facility] Chloride [Moles/Vol] 96 mmol/L Low 98 - 10 7 mmol/L [facility] CO2 [Moles/Vol] 25 mmol/L 20 - 31 mmol/L [facility] Creatinine [Mass/Vol] 0.8 mg/dL 0.50 - 0.90 mg/dL [facility] Est, Glom Filt Rate 85 - PINF [facility] Comment on above: These results are [...] high 74 - 9 9 mg/dL [facility] Potassium [Moles/Vol] 4.5 mmol/L 3.7 - 5.3 mmol/L [facility] Comment on above: Specimen hemolysis h as exceeded the interference as defined by Kat. Value may be falsely increased. Suggest recollection if clinically indicated. Protein [Mass/Vol] 5.2 g/dL Low 6.6 - 8.7 g/dL [facility] Sodium [Moles/Vol] 130 mmol/L Low 136 - 145 mmol/L [facility] Urea nitrogen [Mass/Vol] 22 mg/dL High 6 - 20 mg/dL [facility] Urea nitrogen/Creatinine [Mass ratio] 28 mg/mg High 9 - 20 [facility] Comp Metabolic Profon 2024 Albumin [Mass/Vol] 3.3 g/dL Low 3.5-5.2 [facility] Comment on above: Performed By: #### I NSU #### [place] [address] [place] [address] Reordering Clerk: Gee Royal MD [facility] [address] [place] [address] [place] [address] Reordering Clerk: Loreta Zelaya MD #### CPEP #### [address] [address] Reordering Clerk: Gee Royal MD Albumin/Glob Ratio 1.8 Normal 1.0-2.5 [facility] Comment on above: Performed By: #### I NSU #### [address] [address] Reordering Clerk: Gee Royal MD [facility] [address] [place] [address] [place] [address] Reordering Clerk: Loreta Zelaya MD #### CPEP #### [address] [address] Reordering Clerk: Gee Royal MD Alkaline Phos 153 U/L High 35-104 [facility] Comment on above: Performed By: #### I NSU #### [facility] [address] [place] [address] Reordering Clerk: Gee Royal MD [facility] [address] [place] [address] [place] [address] Reordering Clerk: Loreta Zelaya MD #### CPEP #### [address] [address] Reordering Clerk: Gee Royal MD ALT [Catalytic activity/Vol] 49 U/L [facility] 10-35 [facility] Comment on above: Performed By: #### I NSU #### [address] [address] Reordering Clerk: Gee Royal MD [address] [place], [place] [address]83 Reordering Clerk: Loreta Zelaya MD #### CPEP #### [address] [address] Reordering Clerk: Gee Royal MD Anion gap [Moles/Vol] 9 mmol/L Normal 9-16 [facility] Comment on above: Performed By: #### I NSU #### [address] [address] Reordering Clerk: Gee Royal MD [address] [place] [phone] Reordering Clerk: Loreta Zelaya MD #### CPEP #### [address] [address] Reordering Clerk: Gee Royal MD AST [Catalytic activity/Vol] 56 U/L [facility] 1035 [facility] Comment on above: Performed By: #### I NSU #### [address] [address] Reordering Clerk: Gee Royal MD [address] [place], [place] [address] Reordering Clerk: Loreta Zelaya MD #### CPEP #### [address] [address] Reordering Clerk: Gee Royal MD Bilirubin [Mass/Vol] mg/dL Normal 0.00-1.20 [facility] Comment on above: Performed By: #### I NSU #### [address] [address] Reordering Clerk: Gee Royal MD [facility] [address] [place] [address] [place], [place] [phone] Reordering Clerk: Loreta Zelaya MD #### CPEP #### [address] [address] Reordering Clerk: Gee Royal MD BUN/CRE Ratio 28 High 9-20 [facility] Comment on above: Performed By: #### I NSU #### [address] [address] Reordering Clerk: Gee Royal MD [facility] [address] [place] [address] [place], [place] [phone] Reordering Clerk: Loreta Zelaya MD #### CPEP #### [address] [address] Reordering Clerk: Gee Royal MD Calcium [Mass/Vol] 8.4 mg/dL Low 8.6-10.4 [facility] Comment on above: Performed By: #### I NSU #### [address] [address] Reordering Clerk: Gee Royal MD [facility] [address] [place] [address] [place], [place] [phone] Reordering Clerk: Loreta Zelaya MD #### CPEP #### [address] [address] Reordering Clerk: Gee Royal MD Chloride [Moles/Vol] 96 mmol/L Low 98-107 [facility] Comment on above: Performed By: #### I NSU #### [address] [address] Reordering Clerk: Gee Royal MD [facility] [address] [place] [address] [place], [place] 878[address]83 Reordering Clerk: Loreta Zelaya MD #### CPEP #### [address] [address] Reordering Clerk: Gee Royal MD CO2 [Moles/Vol] 25 mmol/L Normal 20-31 [facility] Comment on above: Performed By: #### I NSU #### [address] [address] Reordering Clerk: Gee Royal MD [facility] [address] [place] [address] [place] [address] Reordering Clerk: Loreta Zelaya MD #### CPEP #### [address] [address] Reordering Clerk: Gee Royal MD Creatinine [Mass/Vol] 0.8 mg/dL Normal 0.50-0.90 [facility] Comment on above: Performed By: #### I NSU #### [address] [address] Reordering Clerk: Gee Royal MD [address] [place] [address] Reordering Clerk: Loreta Zelaya MD #### CPEP #### [address] [address] Reordering Clerk: Gee Royal MD GFR/1.73 sq M.predicted among non-blacks MDRD (S/P/Bld) [Vol rate/Area] 85 mL/min/{1.73_m2} Normal >60 [facility] Comment on above: Result Comment: These results [...] secretion. Performed By: #### I NSU #### [address] [address] Reordering Clerk: Gee Royal MD [address] [place], [place] [phone] Reordering Clerk: Loreta Zelaya MD #### CPEP #### [facility] [address] [place] [address] Reordering Clerk: Gee Royal MD Glucose [Mass/Vol] 567 mg/dL Critically high 74-99 [facility] Comment on above: Performed By: #### I NSU #### [facility] [address] [place] [address] Reordering Clerk: Gee Royal MD [address] [place] [address] Reordering Clerk: Loreta Zelaya MD #### CPEP #### [place] [address] [place] [address] Reordering Clerk: Gee Royal MD Potassium [Moles/Vol] 4.5 mmol/L Normal 3.7-5.3 [facility] Comment on above: Result Comment: Spec imen hemolysis has exceeded the interference as defined by Kat. Value may be falsely increased. Suggest recollection if clinically indicated. Performed By: #### I NSU #### [facility] [address] [place] [address] Reordering Clerk: Gee Royal MD [address] [place], [place] [phone] Reordering Clerk: Loreta Zelaya MD #### CPEP #### [facility] [address] [place] [address] Reordering Clerk: Gee Royal MD Protein [Mass/Vol] 5.2 g/dL Low 6.6-8.7 [facility] Comment on above: Performed By: #### I NSU #### [facility] [address] [place] [address] Reordering Clerk: Gee Royal MD [facility] [address] [place], [place] [phone] Reordering Clerk: Loreta Zelaya MD #### CPEP #### [facility] [address] [place] [address] Reordering Clerk: Gee Royal MD Sodium [Moles/Vol] 130 mmol/L Low 136-145 [facility] Comment on above: Performed By: #### I NSU #### [facility] [address] [place] [address] Reordering Clerk: Gee Royal MD [facility] [address] [place] [address] Reordering Clerk: Loreta Zelaya MD #### CPEP #### [address] [address] Reordering Clerk: Gee Royal MD Urea nitrogen [Mass/Vol] 22 mg/dL High 6-20 [facility] Comment on above: Performed By: #### I NSU #### [facility] [address] [place] [address] Reordering Clerk: Gee Royal MD [facility] [address] [place] [address] [place], [place] 4652383 Reordering Clerk: Loreta Zelaya MD #### CPEP #### [address] [address] Reordering Clerk: Gee Royal MD Glucose, Whole Bloodon 10-16 Glucose [Mass/Vol] 564 mg/dL Critically high 74 - 1 00 mg/dL [facility] Interpretation and review of laboratory results Abnormal [facility] Glucose [Mass/Vol] 564 mg/dL Critically high 74-100 M [facility] Magnesiumon 10-16-2024 Magnesium [Mass/Vol] 2 mg/dL 1.6 - 2 .6 mg/dL [facility] Magnesium [Mass/Vol] 2.0 mg/dL Normal 1.6-2.6 [facility] Comment on above: Performed By: #### C DP #### [facility] [address] [place] [address] Reordering Clerk: Loreta Zelaya MD No Panel Informationon 10-16 Interpretation and review of laboratory results Abnormal [facility] Troponinon 10-16-2024 Troponin I.cardiac High sensitivity method [Mass/Vol] ng/L 0 - 14 ng/L [facility] Comment on above: High Sensitivity Tro ponin values cannot be compared with other Troponin methodologies. Troponin, High Sens <6 Normal 0-14 [facility] Comment on above: Result Comment: High Sensitivity Troponin values cannot be compared with other Troponin methodologies. Performed By: #### I NSU #### [facility] [address] [place] [address] Reordering Clerk: Gee Royal MD [facility] [address] [place] [phone] Reordering Clerk: Loreta Zelaya MD #### CPEP #### [facility] [address] [place] [address] Reordering Clerk: Gee Royal MD BASIC METABOLIC PANLon 10-12 Anion gap [Moles/Vol] 18 mmol/L High 5-15 [facility] Comment on above: Performed By: #### B PHILLIP, 6-3, 3023-7 #### [facility] ([id number]) [address] [place] [address] Calcium [Mass/Vol] 9.0 mg/dL Normal 8.5-10.5 [facility] Comment on above: Performed By: #### B PHILLIP, 6-3, 4-7 #### [facility] ([id number]) [address] [place] [address] Chloride [Moles/Vol] 101 mmol/L Normal 98-109 [facility] Comment on above: Performed By: #### B PHILLIP, 3015-3, 7 #### [facility] ([id number]) [address] [address] [place] [address] CO2 [Moles/Vol] 15 mmol/L Low 22-32 [facility] Comment on above: Performed By: #### Deric FISHER, 3015-3, 3023-7 #### [facility] ([id number]) [address] [facility] [address] [place] [address] Creatinine [Mass/Vol] 0.52 mg/dL Normal 0.40-1.00 [facility] Comment on above: Result Comment: METH OD TRACEABLE TO IDMS STANDARD Performed By: #### Deric FISHER, 3015-3, 7 #### [facility] ([id number]) [address] [facility] [address] [place] [address] eGFR (CKD-EPI) NON-RACE DEPENDENT >90 Normal >59 [facility] Comment on above: Result Comment: Reported eGFR is based on the CKD-EPI 2020 equation that does not use a race coefficient. Performed By: #### Deric FISHER, 3015-3, 3024-01 #### [facility] ([id number]) [address] [place] [address] Glucose [Mass/Vol] 321 mg/dL High 65-99 [facility] Comment on above: Performed By: #### Deric FISHER, 3015-3, 3024-01 #### [facility] ([id number]) [address] [address] [place] [address] Potassium [Moles/Vol] 4.3 mmol/L Normal 3.5-5.0 [facility] Comment on above: Performed By: #### Deric FISHER, 3015-3, 3023-7 #### [facility] ([id number]) [address] [place] [address] Sodium [Moles/Vol] 134 mmol/L Normal 134-146 [facility] Comment on above: Performed By: #### B PHILLIP, 3016-3, 3024-7 #### [facility] ([id number]) [address] [place] [address] Urea nitrogen [Mass/Vol] 15 mg/dL Normal 5-23 [facility] Comment on above: Performed By: #### B PHILLIP, 3016-3, 3023-7 #### [facility] ([id number]) [address] [place] [address] Basic Metabolic Panelon 10-03 Anion gap [Moles/Vol] 18 mmol/L High 5 - 15 mmol/L [facility] Calcium [Mass/Vol] 9.0 mg/dL 8.5 - 10. 5 mg/dL [facility] Chloride [Moles/Vol] 101 mmol/L 98 - 10 9 mmol/L [facility] CO2 [Moles/Vol] 15 mmol/L Low 22 - 32 mmol/L [facility] Creatinine [Mass/Vol] 0.52 mg/dL 0.40 - 1.00 mg/dL [facility] Comment on above: METHOD TRACEABLE TO IDMA STANDARD eGFR (CKD-EPI)non-race dependent - PINF [facility] Comment on above: Reported eGFR is based on the CKD-EPI 2020 equation that does not use a race coefficient. Glucose [Mass/Vol] 321 mg/dL High 65 - 99 mg/dL [facility] Interpretation and review of laboratory results Abnormal [facility] Potassium [Moles/Vol] 4.3 mmol/L 3.5 - 5.0 mmol/L [facility] Sodium [Moles/Vol] 134 mmol/L 134 - 146 mmol/L [facility] Urea nitrogen [Mass/Vol] 15 mg/dL 5 - 23 mg/dL [facility] FREE T4on 10-13-2023 Free T4 [Mass/Vol] 0.56 ng/dL Low 0.61-1.60 [facility] Comment on above: Performed By: #### B PHILLIP, 3016-3, 3024-7 #### [facility] ([id number]) [address] [facility], [address] [address] Free T4 [Mass/Vol]on 024 Interpretation and review of laboratory results Abnormal [facility] T4, freeon 10-13-2023 Free T4 [Mass/Vol] 0.56 ng/dL Low 0.61 - 1. 60 ng/dL [facility] TSHon 10-13-2023 TSH Qn 9.36 m[IU]/L High [facility] TSH Qnon 10-13-2023 Interpretation and review of laboratory results Abnormal [facility] TSH 9.36 uIU/mL High 0.49-4.67 [facility] Comment on above: Performed By: #### B PHILLIP, 3016-3, 3024-7 #### [facility] ([id number]) [address] [place] [address], [address] [address] C peptide [Mass/Vol]on 09-01 C PEPTIDE 1.10 ng/mL Normal 0.81-3.85 [facility] Comment on above: Result Comment: NOTE Test Performed By: [facility] [address] [place] [address] Directory Assistance Operator: Judson Reese III, M.D. [facility] #[id number] MICROALBUMIN - ALBUMIN:CREAT ININE URINE RATIOon 09-01-2023 ALB/CREAT RATIO NOT CALCULATED Normal 0.0-30.0 [facility] Comment on above: Result Comment: Result for Albumin/Creatinine Ratio cannot be reliably calculated because urine albumin and or urine creatinine is below the detection limit of the assay. Performed By: #### M ALBU #### [facility] ([id number]) [address] [place] [address], [address] [place] [address] Albumin DL <= 20 mg/L (U) [Mass/Vol] mg/dL Normal 0.0-1.9 [facility] Comment on above: Performed By: #### M ALBU #### [facility] ([id number]) [address] [place] [address] URINE CREAT 12.23 mg/dL Normal [facility] Comment on above: Performed By: #### M ALBU #### [facility] ([id number]) [address] [place] [address] Microalbumin - Albumin: Crea tinine Urine Ratioon 09-01-2023 Albumin/Creatinine DL <= 1.0 mg/L (U) [Ratio] NOT CALCULATED [facility] Comment on above: Result for Albumin/Creatinine Ratio cannot be reliably calculated because urine albumin and or urine creatinine is below the detection limit of the assay. Creatinine (U) [Mass/Vol] 12.23 mg/dL [facility] COMPREHENSIVE METABOLIC PANE [place] 08-27-2023 Albumin [Mass/Vol] 3.9 g/dL Normal 3.2-5.3 [facility] Comment on above: Performed By: #### C MP, THYR, HA1C, 55301-4 #### [facility] ([id number]) [address] [place] [address] ALP [Catalytic activity/Vol] 73 U/L Normal 39-130 [facility] Comment on above: Performed By: #### C MP, THYR, HA1C, 55443-4 #### [facility] ([id number]) [address] [place] [address] ALT [Catalytic activity/Vol] 7 U/L Normal 0-31 [facility] Comment on above: Performed By: #### C MP, THYR, HA1C, 76390-1 #### [facility] ([id number]) [address] [place] [address] Anion gap [Moles/Vol] 9 mmol/L Normal 5-15 [facility] Comment on above: Performed By: #### C MP, THYR, HA1C, 15217-6 #### [facility] ([id number]) [address] [place] [address] AST [Catalytic activity/Vol] 9 U/L Normal 0-41 [facility] Comment on above: Performed By: #### C MP, THYR, HA1C, 71169-1 #### [facility] ([id number]) [address] [place] [address] Bilirubin [Mass/Vol] 0.5 mg/dL Normal 0.3-1.2 [facility] Comment on above: Performed By: #### C PHILLIP, THYR, HA1C, 69711-3 #### [facility] ([id number]) [address] [place] [address] Calcium [Mass/Vol] 8.7 mg/dL Normal 8.5-10.5 [facility] Comment on above: Performed By: #### C MP, THYR, HA1C, 94315-0 #### [facility] ([id number]) [address] [place] [address] Chloride [Moles/Vol] 99 mmol/L Normal 98-109 [facility] Comment on above: Performed By: #### C PHILLIP, THYR, HA1C, 88679-7 #### [facility] ([id number]) [address] [place] [address] CO2 [Moles/Vol] 24 mmol/L Normal 22-32 [facility] Comment on above: Performed By: #### C MP, THYR, HA1C, 05580-5 #### [facility] ([id number]) [address] [place] [address] Creatinine [Mass/Vol] 0.53 mg/dL Normal 0.40-1.00 [facility] Comment on above: Result Comment: METH OD TRACEABLE TO IDMS STANDARD Performed By: #### C MP, THYR, HA1C, 73650-0 #### [facility] ([id number]) [address] [place] [address] eGFR (CKD-EPI) NON-RACE DEPENDENT >90 Normal >59 [facility] Comment on above: Result Comment: Reported eGFR is based on the CKD-EPI 2020 equation that does not use a race coefficient. Performed By: #### C PHILLIP THYRodney, HAJoe, 82944-0 #### [facility] ([id number]) [address] [place] [address] Glucose [Mass/Vol] 474 mg/dL Critically high 65-99 [facility] Comment on above: Performed By: #### C FRANK FISHER, HAJoe, 86071-5 #### [facility] ([id number]) [address] [place] [address] Potassium [Moles/Vol] 3.9 mmol/L Normal 3.5-5.0 [facility] Comment on above: Performed By: #### C FRANK FISHER, HA1C, 11786-2 #### [facility] ([id number]) [address] [place] [address] Protein [Mass/Vol] 6.5 g/dL Normal 6.0-8.0 [facility] Comment on above: Performed By: #### C PHILLIP THYR, HA1C, 47318-9 #### [facility] ([id number]) [address] [place] [address] Sodium [Moles/Vol] 132 mmol/L Low 134-146 [facility] Comment on above: Performed By: #### C PHILLIP THYR, HA1C, 38799-9 #### [facility] ([id number]) [address] [place] [address] Urea nitrogen [Mass/Vol] 7 mg/dL Normal 5-23 [facility] Comment on above: Performed By: #### C MP, THYR, HA1C, 39055-9 #### [facility] ([id number]) [address], [address] [place] [address] Comprehensive metabolic pane [facility] 08-27-2023 Albumin [Mass/Vol] 3.9 g/dL 3.2 - 5.3 g/dL [facility] ALP [Catalytic activity/Vol] 73 U/L 39 - 130 U/L [facility] ALT No additional P-5'-P [Catalytic activity/Vol] 7 U/L 0 - 31 U/L [facility] Anion gap [Moles/Vol] 9 mmol/L 5 - 15 mmol/L [facility] AST [Catalytic activity/Vol] 9 U/L 0 - 41 U/L [facility] Bilirubin [Mass/Vol] 0.5 mg/dL 0.3 - 1 .2 mg/dL [facility] Calcium [Mass/Vol] 8.7 mg/dL 8.5 - 10. 5 mg/dL [facility] Chloride [Moles/Vol] 99 mmol/L 98 - 10 9 mmol/L [facility] CO2 [Moles/Vol] 24 mmol/L 22 - 32 mmol/L [facility] Creatinine [Mass/Vol] 0.53 mg/dL 0.40 - 1.00 mg/dL [facility] Comment on above: METHOD TRACEABLE TO IDMA STANDARD eGFR (CKD-EPI)non-race dependent - PINF [facility] Comment on above: Reported eGFR is based on the CKD-EPI 2020 equation that does not use a race coefficient. Glucose [Mass/Vol] 474 mg/dL Critically high 65 - 9 9 mg/dL [facility] Interpretation and review of laboratory results Abnormal [facility] Potassium [Moles/Vol] 3.9 mmol/L 3.5 - 5.0 mmol/L [facility] Protein [Mass/Vol] 6.5 g/dL 6.0 - 8.0 g/dL [facility] Sodium [Moles/Vol] 132 mmol/L Low 134 - 146 mmol/L [facility] Urea nitrogen [Mass/Vol] 7 mg/dL 5 - 23 mg/dL [facility] HGB A1C (GLYCO-HGB)on 2023 Glucose [Mass/Vol] 349 mg/dL Normal [facility] Comment on above: Performed By: #### C FRANK FISHER HA, 07721-6 #### [facility] ([id number]) [address] [place] [address] HbA1c (Bld) [Mass fraction] 13.8 % High 4.4-5.6 [facility] Comment on above: Result Comment: NOTE ADA Guidelines Result HgbA1c Normal : less than 5.7 % Prediabetes : 5.7 % to 6.4 % Diabetes : > 6.4 % Use with caution in patients with abnormal hemoglobin variants as the half-life of red blood cells and in vivo glycation rates are affected. Performed By: #### C FRANK FISHER, PHILLIP, 95273-7 #### [facility] ([id number]) [address], [address] [place] [address] Hemoglobin A1con 08-27-2023 Average glucose Estimated from glycated hemoglobin (Bld) [Mass/Vol] 349 mg/dL [facility] HbA1c (Bld) [Mass fraction] 13.8 % High 4.4 - 5.6 % [facility] Comment on above: NOTE ADA Guidelines Result HgbA1c Normal : less than 5.7 % Prediabetes : 5.7 % to 6.4 % Diabetes : > 6.4 % Use with caution in patients with abnormal hemoglobin variants as the half-life of red blood cells and in vivo glycation rates are affected. Interpretation and review of laboratory results Abnormal [facility] Lipid 1996 panelon Cholesterol [Mass/Vol] 104 mg/dL Low 150 - 200 mg/dL [facility] Cholesterol in HDL [Mass/Vol] 43 mg/dL 39 - PINF mg/dL [facility] Comment on above: HDL <40 mg/dL - High Risk HDL > or = 40mg/dL- Desirable HDL >60 mg/dL - Negative Risk Cholesterol in LDL [Mass/Vol] 28 mg/dL NINF - 130 mg/dL [facility] Comment on above: LDL <100 mg/dL - Desirable LDL >160 mg/dL - High Risk Cholesterol in VLDL [Mass/Vol] 33 mg/dL High 0 - 30 mg/dL [facility] Cholesterol.total/Amy sterol in HDL [Mass ratio] 2.4 {ratio} 1.0 - 5.0 [facility] Triglyceride [Mass/Vol] 165 mg/dL High 27 - 150 mg/dL [facility] Cholesterol [Mass/Vol] 104 mg/dL Low 150-200 [facility] Comment on above: Performed By: #### FRANK Daniels MP, GENTRY, 04420-1 #### [facility] ([id number]) [address] [place] [address] Cholesterol in HDL [Mass/Vol] 43 mg/dL Normal >39 [facility] Comment on above: Result Comment: HDL <40 mg/dL - High Risk HDL > or = 40mg/dL- Desirable HDL >60 mg/dL - Negative Risk Performed By: #### Frances FISHER, FRANK, PHILLIP, 25234-6 #### [facility] ([id number]) [address] [place] [address] Cholesterol in LDL [Mass/Vol] 28 mg/dL Normal <130 [facility] Comment on above: Result Comment: LDL <100 mg/dL - Desirable LDL >160 mg/dL - High Risk Performed By: #### C MP, THYR, HA1C, 13637-9 #### [facility] ([id number]) [address] [address] Cholesterol in VLDL [Mass/Vol] 33 mg/dL High 0-30 [facility] Comment on above: Performed By: #### C MP, THYR, HA1C, 72354-4 #### [facility] ([id number]) [address] [place] [address] CHOLESTEROL:HDL 2.4 Normal 1.0-5.0 [facility] Comment on above: Performed By: #### C MP, THYR, HA1C, 50003-7 #### [facility] ([id number]) [address] [place] [address] Triglyceride [Mass/Vol] 165 mg/dL High 27-150 P [facility] Comment on above: Performed By: #### C MP, THYR, HA1C, 04146-2 #### [facility] ([id number]) [address] [place] [address] No Panel Informationon 08-27 Interpretation and review of laboratory results Abnormal [facility] THYROID PROFILEon 08-27-2023 Free T4 [Mass/Vol] 0.50 ng/dL Low 0.61-1.60 [facility] Comment on above: Performed By: #### C MP, THYR, HA1C, 64260-9 #### [facility] ([id number]) [address] [place] [address] TSH 8.94 uIU/mL High 0.49-4.67 [facility] Comment on above: Performed By: #### C MP, THYR, HA1C, 32111-8 #### [facility] ([id number]) [address], [address] [place] [address] Thyroid profile includes TSH FT4on 08-27-2023 Free T4 [Mass/Vol] 0.50 ng/dL Low 0.61 - 1. 60 ng/dL [facility] TSH Qn 8.94 m[IU]/L High [facility] CBC AUTO DIFFon 10-19-2022 BASO # 0.1 103/ul Normal 0.0-0.1 [facility] Comment on above: Performed By: #### C BC #### [facility] [address] [place] [address] Dr. Alejandra Trotter Basophils/100 WBC (Bld) 0.9 % Normal 0.2-2.0 [facility] Comment on above: Performed By: #### C BC #### [facility] [address] [place] [address] Dr. Alejandra Trotter EO # 0.2 103/ul Normal 0.0-0.7 [facility] Comment on above: Performed By: #### C BC #### [facility] [address] [place] [address] Dr. Alejandra Trotter Eosinophils/100 WBC (Bld) 3.4 % Normal 0.9-7.0 [facility] Comment on above: Performed By: #### C BC #### [facility] [address] [place] [address] Dr. Alejandra Trotter Erythrocyte distribution width (RBC) [Ratio] 12.5 % Normal 11.0-15.0 [facility] Comment on above: Performed By: #### C BC #### [facility] [address] [place] [address] Dr. Alejandra Trotter Hematocrit (Bld) [Volume fraction] 45.3 % Normal 36.0-48.0 [facility] Comment on above: Performed By: #### C BC #### [facility] [address] [place] [address] Dr. Alejandra Trotter Hemoglobin (Bld) [Mass/Vol] 15.0 g/dL Normal 12.0-16.0 [facility] Comment on above: Performed By: #### C BC #### [facility] [address] [place] [address] Dr. Alejandra Trotter IG # 0.02 10e3/ul Normal 0.00-0.03 [facility] Comment on above: Performed By: #### C BC #### [facility] [address] [place] [address] Dr. Alejandra Trotter IG % 0.3 % Normal 0.0-0.5 [facility] Comment on above: Performed By: #### C BC #### [facility] [address] [place] [address] Dr. Alejandra Trotter LYMPH # 2.4 103/ul Normal 1.2-3.8 [facility] Comment on above: Performed By: #### C BC #### [facility] [address] [place] [address] Dr. Alejandra Trotter Lymphocytes/100 WBC (Bld) 41.2 % Normal 20.5-60.0 [facility] Comment on above: Performed By: #### C BC #### [facility] [address] [place] [address] Dr. Alejandra Trotter MANUAL DIFF REQ NO Normal [facility] Comment on above: Performed By: #### C BC #### [facility] [address] [place] [address] Dr. Alejandra Trotter MCH (RBC) [Entitic mass] 29.1 pg Normal 26.7-34.0 [facility] Comment on above: Performed By: #### C BC #### [facility] [address] [place] [address] Dr. Alejandra Trotter MCHC (RBC) [Mass/Vol] 33.1 g/dL Normal 29.9-35.2 [facility] Comment on above: Performed By: #### C BC #### [facility] [address] [place] [address] Dr. Alejandra Trotter MCV (RBC) [Entitic vol] 87.8 fL Normal 81.0-99.0 [facility] Comment on above: Performed By: #### C BC #### [facility] [address] [place] [address] Dr. Alejandra Trotter MONO # 0.4 103/ul Normal 0.3-0.8 [facility] Comment on above: Performed By: #### C BC #### [facility] [address] [place] [address] Dr. Alejandra Trotter Monocytes/100 WBC (Bld) 6.7 % Normal 1.7-12.0 [facility] Comment on above: Performed By: #### C BC #### [facility] [address] [place] [address] Dr. Alejandra Trotter NEUT # 2.8 103/ul Normal 1.4-6.5 [facility] Comment on above: Performed By: #### C BC #### [facility] [address] [place] [address] Dr. Alejandra Trotter Neutrophils/100 WBC (Bld) 47.5 % Normal 43.0-75.0 [facility] Comment on above: Performed By: #### C BC #### [facility] [address] [place] [address] Dr. Alejandra Trotter Platelet mean volume (Bld) [Entitic vol] 10.7 fL Normal 9.5-13.5 [facility] Comment on above: Performed By: #### C BC #### [facility] [address] [place] [address] Dr. Alejandra Trotter PLT 282 103/ul Normal 150-450 [facility] Comment on above: Performed By: #### C BC #### [facility] [address] [place] [address] Dr. Alejandra Trotter RBC 5.16 106/ul Normal 4.20-5.40 [facility] Comment on above: Performed By: #### C BC #### [facility] [address] [place] [address] Dr. Alejandra Trotter WBC 5.8 103/ul Normal 4.0-11.0 [facility] Comment on above: Performed By: #### C BC #### [facility] [address] [place] [address] Dr. Alejandra Trotter D-DIMERon 10-19-2022 D-DIMER 0.58 mg/L FEU Normal <=0.59 [facility] Comment on above: Performed By: #### D DIM #### [facility] [address] [place] [address] Dr. Alejandra Trotter D-DIMER COMMENTS SEE BELOW Normal [facility] Comment on above: Result Comment: Incr [...] hospitalization. Performed By: #### D DIM #### [facility] [address] [place] [address] Dr. Alejandra Trotter ER URINE PROFILEon 3 Bilirubin Ql (U) Negative Normal NEGATIVE [facility] Comment on above: Performed By: #### E RUR #### [facility] [address] [place] [address] Dr. Alejandra Trotter Clarity (U) CLEAR Normal CLEAR [facility] Comment on above: Performed By: #### E RUR #### [facility] [address] [place] [address] Dr. Alejandra Trotter Color (U) LT. YELLOW Normal YELLOW [facility] Comment on above: Performed By: #### E RUR #### [facility] [address] [place] [address] Dr. Alejandra MARK A micrscopic examination will be performed if indicated. Normal [facility] Comment on above: Performed By: #### E RUR #### [facility] [address] [place] [address] Dr. Alejandra Trotter Glucose Ql (U) >1000 Abnormal NEGATIVE [facility] Comment on above: Performed By: #### E RUR #### [facility] [address] [place] [address] Dr. Alejandra Trotter Hemoglobin Ql (U) TRACE-LYSED Abnormal NEGATIVE [facility] Comment on above: Performed By: #### E RUR #### [facility] [address] [place] [address] Dr. Alejandra Trotter Ketones Ql (U) >=80 Abnormal NEGATIVE [facility] Comment on above: Performed By: #### E RUR #### [facility] [address] [place] [address] Dr. Alejandra Trotter LEUKOCYTES Negative Normal NEGATIVE [facility] Comment on above: Performed By: #### E RUR #### [facility] [address] [place] [address] Dr. Alejandra Trotter Nitrite Ql (U) Negative Normal NEGATIVE [facility] Comment on above: Performed By: #### E RUR #### [facility] [address] [place] [address] Dr. Alejandra Trotter pH (U) 5.0 [pH] Normal 5-9 [facility] Comment on above: Performed By: #### E RUR #### [facility] [address] [place] [address] Dr. Alejandra Trotter SPEC GRAVITY 1.020 Normal 1.005-<=1.02 5 [facility] Comment on above: Performed By: #### E RUR #### [facility] [address] [place] [address] Dr. Alejandra Trotter UA PROTEIN Negative Normal NEGATIVE/ TRACE [facility] Comment on above: Performed By: #### E RUR #### [facility] [address] [place] [address] Dr. Alejandra Trotter UR MICRO IND NOT INDICATED Normal [facility] Comment on above: Performed By: #### E RUR #### [facility] [address] [place] [address] Dr. Alejandra Trotter Urobilinogen Qn (U) 0.2 {Rui'U}/dL Normal 0.2 - 1. 0 [facility] Comment on above: Performed By: #### E RUR #### [facility] [address] [place] [address] Dr. Alejandra Trotter LACTATE/LACTIC ACIDon 2022 Lactate [Moles/Vol] 1.1 mmol/L Normal 0.4-2.0 [facility] Comment on above: Performed By: #### L ACT #### [facility] [address] [place] [address] Dr. Alejandra Trotter POINT OF CARE GLUCOSEon 10-03 Glucose [Mass/Vol] 322 mg/dL Critically high 74-106 [facility] Comment on above: Performed By: #### P OCGLUC #### [facility] [address] [place] [address] Dr. Alejandra Trotter PROF 14(COMP METB)on 023 Albumin [Mass/Vol] 3.6 g/dL Normal 3.4-5.0 [facility] Comment on above: Performed By: #### H STROPN, CMP #### [facility] [address] [place] [address] Dr. Alejandra Trotter Albumin/Globulin [Mass ratio] 0.9 {ratio} Normal [facility] Comment on above: Performed By: #### H STROPN, CMP #### [facility] [address] [place] [address] Dr. Alejandra Trotter ALP [Catalytic activity/Vol] 107 U/L Normal 46-116 [facility] Comment on above: Performed By: #### H STROPN, CMP #### [facility] [address] [place] [address] Dr. Alejandra Trotter ALT [Catalytic activity/Vol] 14 U/L Normal 14-59 [facility] Comment on above: Performed By: #### H STROPN, CMP #### [facility] [address] [place] [address] Dr. Alejandra Trotter Anion gap [Moles/Vol] 20.6 mmol/L Normal [facility] Comment on above: Performed By: #### H STROPN, CMP #### [facility] [address] [address] [address] Alejandra Trotter AST [Catalytic activity/Vol] 11 U/L Critically low 15-37 [facility] Comment on above: Performed By: #### H STROPN, CMP #### [facility] [address] [address] [address] Alejandra Trotter Bilirubin [Mass/Vol] 0.4 mg/dL Normal 0.2-1.0 [facility] Comment on above: Performed By: #### H STROPN, CMP #### [facility] [address] [address] [address] Alejandra Trotter Calcium [Mass/Vol] 9.0 mg/dL Normal 8.5-10.1 [facility] Comment on above: Performed By: #### H STROPN, CMP #### [facility] [address] [address] [address] Alejandra Trotter Chloride [Moles/Vol] 97 mmol/L Critically low 98-107 [facility] Comment on above: Performed By: #### H STROPN, CMP #### [facility] [address] [address] [address] Alejandra Trotter CO2 [Moles/Vol] 19.7 mmol/L Critically low 21.0-32.0 [facility] Comment on above: Performed By: #### H STROPN, CMP #### [facility] [address] [address] [address] Alejandra Trotter Creatinine [Mass/Vol] 0.83 mg/dL Normal 0.55-1.02 [facility] Comment on above: Performed By: #### H STROPN, CMP #### [facility] [address] [address] [address] Alejandra Trotter EGFR-AF MALAWIAN >60 Normal >=60 [facility] Comment on above: Performed By: #### H STROPN, CMP #### [facility] [address] [address] [address] Alejandra Trotter EGFR-NON AF MALAWIAN >60 Normal >=60 [facility] Comment on above: Performed By: #### H STROPN, CMP #### [facility] [address] [address] [address] Alejandra Trotter Globulin (S) [Mass/Vol] 4.2 g/dL Normal [facility] Comment on above: Performed By: #### H STROPN, CMP #### [facility] [address] [address] [address] Alejandra Trotter Glucose [Mass/Vol] 389 mg/dL Critically high 74-106 [facility] Comment on above: Performed By: #### H STROPN, CMP #### [facility] [address] [address] [address] Alejandra Trotter Potassium [Moles/Vol] 4.3 mmol/L Normal 3.5-5.1 [facility] Comment on above: Performed By: #### H STROPN, CMP #### [facility] [address] [address] [address] Alejandra Trotter Protein [Mass/Vol] 7.8 g/dL Normal 6.4-8.2 [facility] Comment on above: Performed By: #### H STROPN, CMP #### [facility] [address] [address] [address] Alejandra Trotter Sodium [Moles/Vol] 133 mmol/L Critically low 136-145 [facility] Comment on above: Performed By: #### H STROPN, CMP #### [facility] [address] [address] [address] Alejadnra Trotter Urea nitrogen [Mass/Vol] 5.0 mg/dL Critically low 7.0-18.0 [facility] Comment on above: Performed By: #### H STROPN, CMP #### [facility] [address] [address] [address] Alejandra Trotter Urea nitrogen/Creatinine [Mass ratio] 6.0 mg/mg Normal [facility] Comment on above: Performed By: #### H STROPN, CMP #### [facility] [address] [address] [address] Alejandra Trotter SYMPTOMATIC COVID-19 ANTIGEN on 10-19-2022 EUA Statement SEE BELOW Normal [facility] Comment on above: Result Comment: This [...] sooner. Performed By: #### C VDAGS #### [facility] [address] [place] [address] Dr. Alejandra Trotter SARS-CoV-2 (COVID-19) RNA NEENA+probe Ql (Unsp spec) Negative Normal NEGATIVE [facility] Comment on above: Performed By: #### C VDAGS #### [facility] [address] [place], [place] [address] Dr. Alejandra Trotter TROPONIN, HIGH SENSITIVITYon 10-19-2022 HSTROP 4.6 pg/mL Normal 4.0-51.3 [facility] Comment on above: Result Comment: CUT- OFF POINTS HAVE BEEN ESTABLISHED BASED ON THE FOURTH UNIVERSAL DEFINITIONS OF MYOCARDIAL INFARCTION. THE UPPER REFERENCE LIMIT (URL) OF TROPONIN, DEFINED THE 99TH PERCENTILE OF cTnI DISTRIBUTION IN A REFERENCE POPULATION, HAS BEEN CONFIRMED THE DECISION THRESHOLD FOR DC DIAGNOSIS. Performed By: #### H STROPN, CMP #### [facility] [address] [address] [address] Alejandra Trotter XR CHEST 2 Von [...] LORETA MACKENZIE Date: 2022-10-19 21:48 Normal [facility] COVID Quick Testingon 2020 Result Negative [employer] Other Vital Signs Date Time Vital Sign Value Performing Clinician Facility 01-30-2025 13:32-0400 Body height 172.7 cm Carmen Keen MD Work Phone: [facility] 01-30-2025 13:32-0400 Body mass index (BMI) [Ratio] 26.33 kg/m2 Carmen Keen MD Work Phone: [facility] 01-30-2025 13:32-0400 Body weight 78.56 kg Carmen Keen MD Work Phone: [facility] 01-30-2025 13:32-0400 Diastolic blood pressure 54 mm[Hg] Carmen Keen MD Work Phone: [facility] 01-30-2025 13:32-0400 Systolic blood pressure 98 mm[Hg] Carmen Keen MD Work Phone: [facility] 01-11-2025 13:18-0400 Body height 175.3 cm Stanton Raedy DO Work Phone: [employer] [facility] 01-11-2025 13:18-0400 Body mass index (BMI) [Ratio] 24.32 kg/m2 Stanton Raedy DO Work Phone: [employer] [facility] 01-11-2025 13:18-0400 Body weight 74.71 kg Stanton [facility]edy DO [facility] 01-11-2025 13:18-0400 Diastolic blood pressure 80 mm[Hg] Stanton Raedy DO [facility] Phone[facility] 01-11-2025 13:18-0400 Heart rate 89 /min Stanton Raedy DO Work Phone: [facility] 01-11-2025 13:18-0400 SaO2% (BldA) [Mass fraction] 97 % Stanton Johnsony DO Work Phone: [facility] 01-11-2025 13:18-0400 Systolic blood pressure 120 mm[Hg] Stanton Marieeedy DO Work Phone: [facility] 12-21-2024 06:47-0400 Body temperature 97.7 [degF] Rikki Oscar MD Work Phone: [facility] [employer] 12-21-2024 06:47-0400 Diastolic blood pressure 66 mm[Hg] [facility] 12-21-2024 06:47-0400 Heart rate 77 /min Rikki Oscar MD [facility] 12-21-2024 06:47-0400 Respiratory rate 16 /min Rikki Oscar MD [facility] 12-21-2024 06:47-0400 SaO2% (BldA) [Mass fraction] 96 % Rikki Oscar MD Work [facility] 12-21-2024 06:47-0400 Systolic blood pressure 118 mm[Hg] Rikki Oscar MD Work Phone: [facility] 12-21-2024 06:23-0400 Body height 172.7 cm Rikki Oscar MD Work Phone: [facility] [employer] 12-21-2024 05:45-0400 Body mass index (BMI) [Ratio] 23.72 kg/m2 Rikki Oscar MD Work Phone: [facility] [employer] 12-21-2024 05:45-0400 Body weight 70.76 kg Rikki Oscar MD Work Phone: [facility] [employer] 12-20-2024 19:51-0400 Body temperature 37 Rikki Oscar MD Work Phone: [facility] 12-06-2024 12:54-0400 Body height 172.7 cm [facility] 12-06-2024 12:54-0400 Body mass index (BMI) [Ratio] 23.05 kg/m2 [facility] 12-06-2024 12:54-0400 Body weight 68.77 kg [facility] 12-06-2024 12:54-0400 Diastolic blood pressure 84 mm[Hg] [facility] 12-06-2024 12:54-0400 Systolic blood pressure 120 mm[Hg] [facility] 10-18-2024 09:23-0400 Diastolic blood pressure 61 mm[Hg] Flory Toure DO Work Phone: [facility] 10-18-2024 09:23-0400 Systolic blood pressure 94 mm[Hg] Flory Toure DO Work Phone: [facility] 10-18-2024 07:48-0400 Body temperature 98.6 [degF] Flory Toure DO Work Phone: [facility] 10-18-2024 07:48-0400 Heart rate 75 /min Flory Toure DO Work Phone: [facility] 10-18-2024 07:48-0400 Respiratory rate 20 /min Flory Toure DO Work Phone: [facility] 10-18-2024 07:48-0400 SaO2% (BldA) [Mass fraction] 97 % Flory Toure DO Work Phone: [facility] 10-18-2024 04:30-0400 Body mass index (BMI) [Ratio] 20.98 kg/m2 Flory Toure DO Work Phone: [facility] 10-18-2024 04:30-0400 Body weight 62.6 kg Flory Toure DO Work Phone: [facility] 10-16-2024 22:51-0400 Body height 172.7 cm Flory Toure DO Work Phone: [facility] 10-13-2023 09:29-0400 Body height 170.2 cm Gomez Green 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 Work Phone[facility] 10-13-2023 09:29-0400 Body mass index (BMI) [Ratio] 21.68 kg/m2 Gomez Green FINANCIAL SERVICES AGENT-WIRELESS SALES MANAGER Work Phone: [facility] 10-13-2023 09:29-0400 Body temperature 98.2 [degF] Gomez Green 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 Work Phone: [facility] [employer] 10-13-2023 09:29-0400 Body weight 62.78 kg Gomez Green 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 Work Phone: [facility] 10-13-2023 09:29-0400 Diastolic blood pressure 60 mm[Hg] Gomez Green 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 Work Phone: [email or web address] 10-13-2023 09:29-0400 Heart rate 110 /min Gomez Green 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 Work Phone: [facility] 10-13-2023 09:29-0400 SaO2% (BldA) [Mass fraction] 97 % Gomez Green 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 Work Phone: [facility] 10-13-2023 09:29-0400 Systolic blood pressure 100 mm[Hg] Gomez Green 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 Work Phone: [email or web address] 09-01-2023 08:22-0500 Body height 172.7 cm Gomez Green 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 Work Phone: [facility] 09-01-2023 08:22-0500 Body mass index (BMI) [Ratio] 23.11 kg/m2 Gomez Green FINANCIAL SERVICES AGENT-WIRELESS SALES MANAGER Work Phone: [facility] [employer] 09-01-2023 08:22-0500 Body temperature 97.5 [degF] Gomez Green APRN-LYNNETTE Work Phone: [facility] [employer] 09-01-2023 08:22-0500 Body weight 68.95 kg Gomez Green FINANCIAL SERVICES AGENT-WIRELESS SALES MANAGER Work Phone: [facility] [employer] 09-01-2023 08:22-0500 Diastolic blood pressure 70 mm[Hg] Gomez Green FINANCIAL SERVICES AGENT-WIRELESS SALES MANAGER Work Phone: [facility] [employer] 09-01-2023 08:22-0500 Heart rate 98 /min Gomez Green 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 Work Phone: [facility] [employer] 09-01-2023 08:22-0500 SaO2% (BldA) [Mass fraction] 98 % Gomez Green 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 Work Phone: [facility] [employer] 09-01-2023 08:22-0500 Systolic blood pressure 110 mm[Hg] Gomez Green 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 Work Phone: [facility] [employer] 08-31-2023 13:04-0500 Body height 172.7 cm Teri Perez DO Work Phone: [facility] [employer] 08-31-2023 13:04-0500 Body mass index (BMI) [Ratio] 23.17 kg/m2 Teri Perez DO Work Phone: [facility] [employer] 08-31-2023 13:04-0500 Body weight 69.13 kg Teri Perez DO Work Phone: [facility] 08-31-2023 13:04-0500 Diastolic blood pressure 62 mm[Hg] Teri Peerz DO Work Phone: [facility] 08-31-2023 13:04-0500 Systolic blood pressure 104 mm[Hg] Teri Perez DO Work Phone: [facility] [employer] 08-27-2023 10:52-0500 Body height 172.7 cm Gomez BANGURA Work Phone: [employer] [facility] 08-27-2023 10:52-0500 Body mass index (BMI) [Ratio] 23.16 kg/m2 Gomez Green APRN-LYNNETTE Work Phone: [facility] 08-27-2023 10:52-0500 Body temperature 98.6 [degF] Gomez Green APRN-LYNNETTE Work Phone: [facility] [employer] 08-27-2023 10:52-0500 Body weight 69.08 kg Gomez Green APRN-LYNNETTE Work Phone: [facility] 08-27-2023 10:52-0500 Diastolic blood pressure 60 mm[Hg] Gomez Green APRN-LYNNETTE Work Phone: [facility] 08-27-2023 10:52-0500 Heart rate 100 /min Gomez BANGURA Work Phone: [facility] [employer] 08-27-2023 10:52-0500 SaO2% (BldA) [Mass fraction] 97 % Gomez BANGURA Work Phone: [facility] 08-27-2023 10:52-0500 Systolic blood pressure 100 mm[Hg] Gomez Green APRN-LYNNETTE Work Phone: [facility] 07-25-2021 11:32-0500 Body height 175.3 cm Stanton Kohler DO Work Phone: [employer] 07-25-2021 11:32-0500 Body mass index (BMI) [Ratio] 36.39 kg/m2 Stanton Johnsony Work Phone: [employer] 07-25-2021 11:32-0500 Body temperature 98.1 [degF] Stanton Johnsony Work Phone: [employer] 07-25-2021 11:32-0500 Body weight 111.77 kg Stanton Kohler DO Work Phone: [employer] 07-25-2021 11:32-0500 Diastolic blood pressure 82 mm[Hg] Stanton Rajaely DO Work Phone: [employer] 07-25-2021 11:32-0500 Heart rate 82 /min Stanton Johnsony DO Work Phone: [employer] 07-25-2021 11:32-0500 Respiratory rate 16 /min Stanton Johnsony DO Work Phone: [employer] 07-25-2021 11:32-0500 SaO2% (BldA) [Mass fraction] 100 % Stanton Johnsony DO Work Phone: [employer] 07-25-2021 11:32-0500 Systolic blood pressure 126 mm[Hg] Stanton Johnsony DO Work Phone: [employer] 07-10-2021 12:30-0500 Body height 175.3 cm Loreta Juares Jr., DO Work Phone: [employer] 07-10-2021 12:30-0500 Body mass index (BMI) [Ratio] 36.48 kg/m2 Loreta Juares Jr., DO Work Phone: [employer] 07-10-2021 12:30-0500 Body temperature 98.01 [degF] Loreta Juares Jr., DO Work Phone: [employer] 07-10-2021 12:30-0500 Body weight 112.04 kg Loreta Juares Jr., DO Work Phone: [employer] 07-10-2021 12:30-0500 Diastolic blood pressure 74 mm[Hg] Loreta Juares Jr., DO Work Phone: [employer] [facility] 07-10-2021 12:30-0500 Systolic blood pressure 122 mm[Hg] Loreta Juares Jr., DO Work Phone: [facility] 05-02-2021 17:15-0400 Body height 171.45 cm Lenora Whitehead Other [employer] Other 05-02-2021 17:15-0400 Body mass index (BMI) [Ratio] 33.94 kg/m2 Lenora Whitehead Other [employer] Other 05-02-2021 17:15-0400 Body temperature 97.5 [degF] Lenora Whitehead Other [employer] Other 05-02-2021 17:15-0400 Body weight 99.79 kg Lenora Whitehead Other [employer] Other 05-02-2021 17:15-0400 Respiratory rate 18 /min Lenora Whitehead Other [employer] Other 05-02-2021 17:15-0400 SaO2% (BldA) [Mass fraction] 98 % Lenora Whitehead Other [employer] Other Encounters Encounter Date Encounter Type Care Provider Facility Start: 02-27-2025 End: 02-27-2025 Orders Only Laureen Patel [facility] Comment on above: Abnormal TSH (Primar y Dx) Start: 02-12-2025 End: 02-12-2025 Orders Only Laureen Patel MA [facility] Comment on above: Elevated TSH (Primar y Dx); Low serum prolactin Start: 02-08-2025 End: 02-08-2025 ambulatory SHELLEYPIA GOLDBERG [facility] Start: 02-08-2025 End: 02-08-2025 Subsequent hospital visit by physician Vanna Laboratory Schedule [facility] Comment on above: 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; Weakness of both legs Start: 01-30-2025 End: 01-30-2025 Office outpatient visit 15 minutes Carmen Keen MD Work Phone: [facility] Comment on above: Postmenopausal syndr ome (Primary Dx) Start: 01-30-2025 End: 01-30-2025 ambulatory CARMEN KEEN [facility] Start: 01-12-2025 End: 01-12-2025 Orders Only Jessica Pete FINANCIAL SERVICES AGENT-WIRELESS SALES MANAGER Work Phone: [facility] Comment on above: Kiesha glabrata inf ection (Primary Dx) Start: 01-11-2025 End: 01-11-2025 Office outpatient new 30 minutes Stanton F eh DO Work Phone: [facility] Comment on above: Weakness (Primary Dx ) Start: 01-11-2025 ambulatory [facility] Start: 01-10-2025 End: 01-10-2025 Emergency department patient visit MICHAEL FUNEZ [facility] Start: 01-01-2025 ambulatory GOMEZ Souza [facility] Start: 12-25-2024 End: 12-27-[address] [facility] Start: 12-25-2024 End: 12-27-2024 Subsequent hospital visit by physician [facility] Ultrasound Room [facility] Comment on above: Nipple discharge Start: 12-20-2024 End: 12-21-2024 Evaluation and management of inpatient Rikki Oscar MD Work Phone: 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) (Primary Dx) Start: 12-20-2024 End: 12-20-2024 Orders Only Jessica Pete FINANCIAL SERVICES AGENT-WIRELESS SALES MANAGER Work Phone: [facility] Comment on above: Vasomotor symptoms d ue to menopause (Primary Dx); Brain fog; Irritability Start: 12-12-2024 End: 12-14-2024 Orders Only Jessica Pete FINANCIAL SERVICES AGENT-WIRELESS SALES MANAGER Work Phone: [facility] Comment on above: Kiesha glabrata inf ection; Vaginal yeast infection History of uterine f ibroid Start: 12-08-2024 End: 12-10-2024 ambulatory SHELLEYPIA GOLDBERG [facility] Start: 12-08-2024 End: 12-10-2024 Subsequent hospital visit by physician Mazin Mri Scanner [facility] Comment on above: Lumbar radiculopathy Thyroid nodule Acute pain of left k nee Start: 12-07-2024 End: 12-07-2024 Orders Only Kelly Solis [facility] Comment on above: Nipple discharge (Pr imary Dx) Kiesha glabrata inf ection (Primary Dx); Vaginal yeast infection Start: 12-06-2024 End: 12-06-2024 Telephone encounter Jessica Pete 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 [facility] Start: 12-06-2024 End: 12-06-2024 Patient encounter procedure [facility] Start: 12-06-2024 End: 12-06-2024 Periodic preventive med est patient 40-64yrs [facility] [place] Comment on above: Well woman exam with routine gynecological exam (Primary Dx); Screening mammogram for breast cancer; Screening for STD (sexually transmitted disease); Acute vaginitis; History of uterine fibroid; Nipple discharge; Pelvic pain; Screening for colon cancer Start: 12-06-2024 End: 12-06-2024 ambulatory [facility] Start: 12-06-2024 Encounter for gynecological examination (general) (routine) without abnormal findings [facility] Start: 11-14-2024 End: 11-14-2024 [facility] Start: 11-14-2024 End: 11-14-2024 Subsequent hospital visit by physician Gomez Green APRN - WIRELESS SALES MANAGER Work Phone: [facility] Comment on above: Swelling of both low er extremities; Type 2 diabetes mellitus with hyperglycemia, without long-term current use of insulin (HCC) Start: 11-14-2024 End: 11-14-2024 Telephone encounter Bonnie Jeff [facility] Call Liliana stevens Comment on above: Results Start: 10-19-2024 End: 10-19-2024 Telephone encounter Diane Restrepo RN Work Phone: [facility] Comment on above: Transition Of Care Start: 10-16-2024 End: 10-18-2024 Evaluation and management of inpatient Flory Toure DO Work Phone: [facility] Comment on above: Swelling of both low er extremities (Primary Dx); Edema, unspecified type; Type 2 diabetes mellitus with hyperglycemia, without long-term current use of insulin ([facility]) Start: 10-29-2023 End: 10-29-2023 Telephone encounter Anny Vee CMA [facility] Comment on above: Preventative Screeni ng Start: 10-19-2023 End: 10-19-2023 Orders Only Gomez Green FINANCIAL SERVICES AGENT-WIRELESS SALES MANAGER Work Phone: [facility] Start: 10-13-2023 End: 10-14-2023 ambulatory [facility] Start: 10-13-2023 End: 10-13-2023 Office outpatient visit 25 minutes Gomez Green FINANCIAL SERVICES AGENT-WIRELESS SALES MANAGER Work Phone: [facility] Comment on above: Acquired hypothyroid ism (Primary Dx); Type 2 diabetes mellitus with hyperglycemia, without long-term current use of insulin ([facility]); Goiter; Smoking; History of Sjogren's disease ([facility]) Start: 09-01-2023 End: 09-02-2023 ambulatory [facility] Start: 09-01-2023 End: 09-01-2023 Patient encounter status Gomez Green FINANCIAL SERVICES AGENT-WIRELESS SALES MANAGER Work Phone: [facility] [employer] Work Phone: Start: 09-01-2023 End: 09-01-2023 Periodic preventive med est patient 40-64yrs Gomez Green FINANCIAL SERVICES AGENT-WIRELESS SALES MANAGER Work Phone: [facility] Internal Medicine - Family Medicine Comment on above: Wellness examination (Primary Dx); Other specified diabetes mellitus with hyperglycemia, without long-term current use of insulin ([facility]); Graves disease; Acquired hypothyroidism; Special screening for malignant neoplasm of colon; Smoking Start: 08-31-2023 End: 08-31-2023 Encounter for gynecological examination (general) (routine) without abnormal findings Teri Perez DO Work Phone: [employer] Start: 08-31-2023 End: 08-31-2023 Patient encounter procedure Teir Perez DO Work Phone: [employer] Start: 08-31-2023 End: 08-31-2023 Periodic preventive med est patient 40-64yrs Teri Libby Perez DO Work Phone: [facility] Comment on above: Well woman exam with routine gynecological exam (Primary Dx); Screening mammogram for breast cancer; Cervical smear, as part of routine gynecological examination; History of uterine fibroid; Menorrhagia with regular cycle; History of Graves' disease; History of cervical cancer; Smoker; Weight loss; History of Sjogren's disease ([facility]) Start: 08-30-2023 Orders Only Gomez Green FINANCIAL SERVICES AGENT-WIRELESS SALES MANAGER Work Phone: [facility] Start: 08-27-2023 End: 08-28-2023 ambulatory GOMEZ GREEN [facility] Start: 08-27-2023 End: 08-27-2023 Office outpatient new 45 minutes Gomezniall Green FINANCIAL SERVICES AGENT-WIRELESS SALES MANAGER Work Phone: [facility] Comment on above: Encounter for medica l examination to establish care (Primary Dx); Graves' disease; Acquired hypothyroidism; Sjogren syndrome, unspecified ([facility]); Goiter; Malignant neoplasm of cervix, unspecified site ([facility]); Hyperglycemia; Hyperlipidemia, unspecified hyperlipidemia type; Smoking; Nail fungus; Hyperpigmentation Start: 08-27-2023 End: 08-27-2023 Patient encounter status Gomez Green FINANCIAL SERVICES AGENT-WIRELESS SALES MANAGER Work Phone: [facility] [employer] Work Phone: Start: 10-19-2022 End: 10-20-[address] [facility] Start: 03-17-2022 End: 03-17-[address] [facility] Start: 07-25-2021 End: 07-25-2021 Office outpatient visit 40 minutes Stanton F Jose F DO Work Phone: [facility] Comment on above: Nocturnal leg moveme nts (Primary Dx) Start: 07-10-2021 End: 07-10-2021 Office outpatient new 45 minutes Loreta Juares DO Work Phone: [phone] [facility] Comment on above: History of Sjogren's disease (Primary Dx); Hyperpigmentation of skin of cheek; Xerostomia; Dry mouth; Dry eyes; Telangiectasia of face; Hypothyroidism, unspecified type; Hyperglycemia; Basedow's disease; Keratoconjunctivitis sicca; Osteoarthritis of right hand, unspecified osteoarthritis type; Osteoarthritis of left foot, unspecified osteoarthritis type; Lumbar degenerative disc disease Start: 05-02-2021 (URG) Urgent Care Visit Lenora townsend [facility] Urgent Care Tommy Procedures Date Procedure Procedure Detail Performing Clinician Start: 02-08-2025 End: 02-08-2025 Creatine kinase total Trice torres MD Work Phone: Start: 02-08-2025 VITAMIN B12 & FOLATE Asa Araiza MD Work Phone: Start: 12-25-2024 Us breast uni real t estefania with image limited Jessica Pete FINANCIAL SERVICES AGENT - [employer] Work Phone: Start: 12-25-2024 End: 12-25-2024 Diagnostic mammography computer-aided detcj bi Jessica Pete FINANCIAL SERVICES AGENT - [employer] Work Phone: Start: 12-21-2024 GLUCOSE, WHOLE BLOOD Ma rk Pk Herron MD Work Phone: Start: 12-21-2024 GLUCOSE, WHOLE BLOOD Marga Herron MD Work Phone: Start: 12-21-2024 Rhythm ecg 1-3 leads w/interpretation & report Unknown Provider Result Start: 12-21-2024 Blood count complete auto&auto difrntl wbc Dipti Crowen FINANCIAL SERVICES AGENT - WIRELESS SALES MANAGER Work Phone: Start: 12-21-2024 GLUCOSE, WHOLE BLOOD Marga Herron MD Work Phone: Start: 12-21-2024 Urnls dip stick/tabl et reagent auto microscopy Dipti Crowen FINANCIAL SERVICES AGENT - WIRELESS SALES MANAGER Work Phone: Start: 12-20-2024 Basic metabolic pane [...] of thyroid stimulating hormone tsh Karime BlakeersKadeem FINANCIAL SERVICES AGENT [employer] Work Phone: Start: 10-18-2024 Rhythm ecg 1-3 leads w/interpretation & report Unknown Provider Result Start: 10-17-2024 Assay of osmolality urine Melissa Tamayo Hemmelgarn DO Work Phone: Start: 10-17-2024 Urine albumin quantitative Melissa E Hemmelgarn DO Work Phone: Start: 10-17-2024 End: 10-17-2024 GLUCOSE, WHOLE BLOOD Becky Avila MD Work Phone: Start: 10-17-2024 Ct angio abd&plvis c ntrst mtrl w/wo cntrst img Karime BlakeersKadeem FINANCIAL SERVICES AGENT [email or web address] WIRELESS SALES MANAGER Work Phone: Start: 10-17-2024 End: 10-17-2024 Rhythm ecg 1-3 leads w/interpretation & report Unknown Provider Result Start: 10-17-2024 Urnls dip stick/tabl et reagent auto microscopy Dipti Romero FINANCIAL SERVICES AGENT - WIRELESS SALES MANAGER Work Phone: Start: 10-17-2024 Hemoglobin glycosyla kaylen a1c Dipti Romero FINANCIAL SERVICES AGENT - WIRELESS SALES MANAGER Work Phone: Start: 10-16-2024 GLUCOSE, WHOLE BLOOD Connor Avila MD Work Phone: Start: 10-16-2024 End: 10-17-2024 Ecg routine ecg w/least 12 lds i&r only Flory Toure DO Work Phone: Start: 10-16-2024 Comprehensive metabo lic panel Flory Alcantara Toure DO Work Phone: Start: 10-13-2023 Adult depression scr eening assessment Gomez Green [employer] Work Phone: Start: 09-01-2023 Adult depression scr eening assessment Gomez Green [employer] Work Phone: Start: 09-01-2023 Microalbumin [Mass/v olume] in Urine by Test strip Gomez Green [employer] Work Phone: Start: 08-31-2023 Adult depression scr eening assessment Teri Perez DO Work Phone: Start: 08-31-2023 Microscopic observat ion [Identifier] in Cervix by Cyto stain Gomez Green [employer] Work Phone: Start: 08-27-2023 Adult depression scr eening assessment Gomez Green [employer] Work Phone: Start: 11-08-2020 Mammography Gomez Barajas ch [employer] Work Phone: Plan of Treatment Date Care Activity Detail Author Start: 12-25-2026 Screening for malignant [facility]oplasm of breast [facility] Start: 08-31-2026 Screening for malignant neoplasm of cervix Pap Smear [facility] Start: 08-02-2026 Tobacco Counseling Tobacco Counseling [facility] Start: 01-30-2026 Adult BMI Screening Adult BMI Screening [facility] Start: 01-30-2026 Tobacco Screening Tobacco Screening [facility] Start: 01-10-2026 Adult BMI Screening Adult BMI Screening [facility] Start: 01-10-2026 Tobacco Screening Tobacco Screening [facility] Start: 12-25-2025 Screening for malignant neoplasm of breast Mammogram [facility] Start: 12-21-2025 GFR test (Diabetes, CKD 3-4, OR last GFR 15-59) GFR test (Diabetes, CKD 3-4, OR last GFR 15-59) [facility] Start: 12-06-2025 Adult BMI Screening Adult BMI Screening [facility] Start: 12-06-2025 Tobacco Screening Tobacco Screening [facility] Start: 11-14-2025 GFR test (Diabetes, CKD 3-4, OR last GFR 15-59) GFR test (Diabetes, CKD 3-4, OR last GFR 15-59) [facility] Start: 11-14-2025 Urine screening for protein Diabetic Alb to Cr ratio (uACR) test [facility] Start: 10-18-2025 GFR test (Diabetes, CKD 3-4, OR last GFR 15-59) GFR test (Diabetes, CKD 3-4, OR last GFR 15-59) [facility] Start: 10-17-2025 Urine screening for protein Diabetic Alb to Cr ratio (uACR) test [facility] Start: 03-22-2025 End: 03-22-2025 Patient encounter procedure 03/22/2025 2:20 PM EDT Office Visit [address] [place] [phone] Trice Araiza MD [address] [place] [address] [address] [place] [phone] Peripheral Neuropathy ; 1 mth follow up EEG, labs [facility] Comment on above: Peripheral Neuropathy ; 1 mth follow up EEG, labs Start: 03-06-2025 End: 03-06-2025 Patient encounter procedure 03/06/2025 2:15 PM EDT Office Visit [facility] [address] [place] [phone] Carmen Keen MD [address] [place], [place] [phone] [facility] Start: 03-05-2025 Influenza vaccination [facility] Start: 02-28-2025 Tobacco Counseling Tobacco Counseling [facility] Start: 02-08-2025 End: 02-08-2025 Patient encounter procedure 02/08/2025 1:20 PM EDT Office Visit [address] [place] [phone] Trice Araiza MD [address] [place] [address] Dr [address] [place] [address] [facility] NE[facility] Comment on above: ALS Start: 02-05-2025 End: 02-05-2025 Patient encounter procedure 02/05/2025 1:40 PM EDT Office Visit [facility] [address] [place] [address] Trice Araiza MD [address] [facility] [address] [place] [address] [facility] NEUR[facility] Comment on above: ALS Start: 02-02-2025 Influenza vaccination [facility] Start: 01-30-2025 End: 01-30-2025 Patient encounter procedure 01/30/2025 1:30 PM EDT Office Visit [facility] [address] [place] [phone] Carmen Keen MD Counts include 234 beds at the [facility] [place] [place] [address] [facility] Start: 01-18-2025 End: 01-11-2026 Electromyography EMG & NERVE CONDUCTION Neurology Routine Weakness Expected: 01/18/2025, Expires: 01/11/[address] [facility] Comment on above: Expected: 01/18/2025, Expires: Start: 01-16-2025 Hemoglobin A1c measurement A1C test (Diabetic or Prediabetic) [facility] Start: 01-01-2025 End: 01-01-2025 Patient encounter procedure 01/01/2025 4:45 PM EDT Appointment [facility] Physical Therapy [address] [facility] [address] Bobby Graves, PT [facility] Physical Therapy Start: 01-01-2025 End: 01-01-2025 Patient encounter procedure [facility]amm[facility] Comment on above: media/pt Start: 12-25-2024 End: 12-25-2024 Patient encounter procedure [facility] [place] Mamm[facility] Comment on above: media/pt Start: 12-12-2024 End: 12-12-2024 Patient encounter procedure 12/12/2024 1:00 PM EDT Appointment [facility] [place] Ultrasound [address] [place], [place] [id number] media/pt [facility] Ultrasound Comment on above: media/pt Start: 12-07-2024 End: 12-07-2025 US Breast - bilateral limited Ultrasound breast limited bilateral Imaging Routine Nipple discharge Expected: 12/07/2024, Expires: 12/07/2025 [employer] Phone: Comment on above: Expected: 12/07/2024, Expires: Start: 12-06-2024 End: 12-06-2025 MG Breast Diagnostic Mammography diagnostic bilateral with CAD Imaging Routine Nipple discharge Expected: 12/06/2024, Expires: 12/06/2025 [employer] Comment on above: Expected: 12/06/2024, Expires: Start: 12-06-2024 End: 12-06-2025 US Pelvis transabdominal and transvaginal Ultrasound pelvic with transvaginal Imaging Routine History of uterine fibroid Pelvic pain Expected: 12/06/2024, Expires: 12/06/2025 [employer] Comment on above: Expected: 12/06/2024, Expires: Start: 10-25-2024 End: 10-18-2025 Basic metabolic 2000 panel - Serum or Plasma Basic Metabolic Panel Lab Routine Swelling of both lower extremities Type 2 diabetes mellitus with hyperglycemia, without long-term current use of insulin (HCC) Expected: 10/25/2024, Expires: 10/18/2025 [facility] Comment on above: Expected: 10/25/2024, Expires: Start: 10-25-2024 End: 10-18-2025 CBC W Auto Differential panel - Blood CBC with Auto Differential Lab Routine Swelling of both lower extremities Type 2 diabetes mellitus with hyperglycemia, without long-term current use of insulin (HCC) Expected: 10/25/2024, Expires: 10/18/2025 [facility] Comment on above: Expected: 10/25/2024, Expires: Start: 10-12-2024 Adult BMI Screening Adult BMI Screening [facility] Start: 10-12-2024 Depression Screening Depression Screening [facility] Start: 10-12-2024 Tobacco Screening Tobacco Screening [facility] Start: 09-01-2024 Adult BMI Screening Adult BMI Screening [facility] Start: 09-01-2024 Depression Screening Depression Screening [facility] Start: 09-01-2024 Diabetic foot examination Diabetic Foot Exam [facility] Start: 09-01-2024 Tobacco Screening Tobacco Screening [facility] Start: 09-01-2024 Urine screening for protein Urine Microalbumin [facility] Start: 08-31-2024 Adult BMI Screening Adult BMI Screening [facility] Start: 08-31-2024 Depression Screening Depression Screening [facility] Start: 08-31-2024 Tobacco Screening Tobacco Screening [facility] Start: 08-27-2024 Adult BMI Screening Adult BMI Screening [facility] Start: 08-27-2024 Depression Screening Depression Screening [facility] Start: 08-27-2024 Tobacco Screening Tobacco Screening [facility] Start: 03-05-2024 COVID-19 Vaccine ( season) COVID-19 Vaccine ( season) [facility] Start: 03-05-2024 Influenza vaccination Influenza Vaccine [facility] Start: 10-13-2023 End: 10-12-2024 US Thyroid gland Ultrasound thyroid Imaging Routine Goiter Expected: 10/13/2023, Expires: 10/12/2024 [facility] Work Phone: Comment on above: Expected: 10/13/2023, Expires: Start: 10-13-2023 End: 10-13-2023 Patient encounter procedure 10/13/2023 8:40 AM EDT Office Visit [facility] Physicians Internal Medicine - Family Medicine [address] [place] [address] Gomez Green, FINANCIAL SERVICES AGENT-WIRELESS SALES MANAGER [address] [place] [address] [facility] Start: 09-15-2023 End: 09-15-2023 Patient encounter procedure 09/15/2023 9:30 AM EDT Office Visit [facility] [address] [facility] [place] [phone] Teri Perez, [address] [place] [address] [facility] Start: 09-01-2023 End: 09-01-2023 Patient encounter procedure 09/01/2023 8:30 AM EST Office Visit [facility] Medicine - Family Medicine [address] [place] [address] Gomez Green, FINANCIAL SERVICES AGENT-WIRELESS SALES MANAGER [address] [place] [address] [facility] Start: 08-31-2023 End: 08-31-2024 Cytopathology procedure, preparation of smear, genital source Pap Smear Pathology and Cytology Routine Cervical smear, as part of routine gynecological examination Expected: 08/31/2023 (Approximate), Expires: 08/31/2024 [facility] Comment on above: Expected: 08/31/2023 (Approximate), Expi res: 08/31/2024 Start: 08-31-2023 End: 08-31-2024 DBT Breast - bilateral screening Mammography screening bilateral with CAD Imaging Routine Screening mammogram for breast cancer Expected: 08/31/2023, Expires: 08/31/2024 [facility] Phone: Comment on above: Expected: 08/31/2023, Expires: Start: 08-31-2023 End: 08-31-2024 US Pelvis transabdominal and transvaginal Ultrasound pelvic with transvaginal Imaging Routine History of uterine fibroid Menorrhagia with regular cycle Expected: 08/31/2023, Expires: 08/31/2024 [facility] Comment on above: Expected: 08/31/2023, Expires: Start: 08-31-2023 End: 08-31-2023 Patient encounter procedure 08/31/2023 1:00 PM EST [facility] [address] [facility] [place] [phone] Teri Perez DO [address] [place], [place] [phone] [facility] Start: 08-14-2023 DTaP,Tdap and Td Vaccines (2 - Td or Tdap) DTaP,Tdap and Td Vaccines (2 - Td or Tdap) [facility] Start: 08-14-2023 DTaP/Tdap/Td vaccine (2 - Td or Tdap) DTaP/Tdap/Td vaccine (2 - Td or Tdap) [facility] Start: 08-14-2023 Tetanus vaccination TETANUS [facility] Start: 03-05-2023 Influenza vaccination Influenza Vaccine [facility] Start: 11-08-2022 Screening for malignant neoplasm of breast Breast cancer screen [facility] Start: 07-16-2022 End: 07-16-2022 Patient encounter procedure 07/16/2022 Office Visit Rheumatology Mor Harmon, Loreta Mann, DO [address] [place] [address] [facility] Start: 06-23-2022 End: 07-10-2022 C-reactive protein C REACTIVE PROTEIN Lab Routine History of Sjogren's disease Hyperpigmentation of skin of cheek Xerostomia Dry mouth Dry eyes Telangiectasia of face Hypothyroidism, unspecified type Hyperglycemia 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, 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, unspecified osteoarthritis type Lumbar degenerative disc disease Expected: 06/23/2022 (Approximate), Expires: 07/10/2022 [facility] Comment on above: Expected: 06/23/2022 [...] Expected: 06/23/2022 (Approximate), Expires: 07/10/[address] [facility] Comment on above: Expected: 06/23/2022 [...] disc disease Expected: 06/23/2022 (Approximate), Expires: 07/10/2022 [facility] Comment on above: Expected: 06/23/2022 [...] disc disease Expected: 06/23/2022 (Approximate), Expires: 07/10/2022 [facility] [employer] Comment on above: Expected: 06/23/2022 [...] disc disease Expected: 06/23/2022 (Approximate), Expires: 07/10/2022 [facility] Comment on above: Expected: 06/23/2022 [...] disc disease Expected: 06/23/2022 (Approximate), Expires: 07/10/2022 [facility] Comment on above: Expected: 06/23/2022 (Approximate), Expi [...] disc disease Expected: 06/23/2022 (Approximate), Expires: 07/10/2022 [facility] Comment on above: Expected: 06/23/2022 (Approximate), Expi [...] Expected: 06/23/2022 (Approximate), Expires: 07/10/[address] [facility] Comment on above: Expected: 06/23/2022 [...] Expected: 06/23/2022 (Approximate), Expires: 07/10/[address] [facility] Comment on above: Expected: 06/23/2022 (Approximate), Expi res: 07/10/2022 Start: 11-08-2021 Screening for malignant neoplasm of breast [facility] Start: 09-05-2021 End: 09-05-2021 Telemedicine consultation with patient 09/05/2021 Telemedicine Neurology Stanton Kohler, DO [address] [place] [address] [facility] Neu[facility] Start: 03-05-2021 Influenza vaccination INFLUENZA VACCINE (#1) [facility] Start: 2020 Colonoscopy COLORECTAL CANCER SCREENING DISCUSSION [facility] Start: 2020 Screening for malignant neoplasm of colon [facility] Start: 05-07-2016 Glaucoma screening Diabetic retinal exam [facility] Start: 2015 Fasting lipid profile LIPID SCREENING [facility] Start: 2015 Lipid panel LIPID SCREENING [facility] Start: 2015 Screening mammography MAMMOGRAM SCREENING DISCUSSION [facility] Start: 2005 Screening for malignant neoplasm of cervix [facility] Start: 1996 Screening for malignant neoplasm of cervix [facility] Start: 1994 Hepatitis B vaccination HEP B VACCINE (1 of + 3-dose series) [facility] Start: 1994 Hepatitis B vaccine (1 of 3 - 19+ 3-dose series) Hepatitis B vaccine (1 of 3 - 19+ 3-dose series) [facility] Start: 1994 Pneumococcal 0-49 years Vaccine (1 of 2 - PCV) Pneumococcal 0-49 years Vaccine (1 of 2 - PCV) [facility] Start: 1994 Third diphtheria, tetanus and acellular pertussis (DTaP) vaccination TDAP (ADULT) [facility] Start: 1993 Adult BMI Follow Up Plan Adult BMI Follow Up Plan [facility] Start: 1993 Hepatitis C screening Hepatitis C screen [facility] Start: 1993 Tetanus vaccination TETANUS [facility] Start: 1990 HIV screening [facility] Start: 1987 Depression Screen Depression Screen [facility] Start: 1985 Diabetic foot examination Diabetic foot exam [facility] Start: 1985 Lipid panel Lipids [facility] Start: 1980 COVID-19 VACCINE (1) COVID-19 VACCINE (1) [facility] Start: 1975 Glaucoma screening Diabetic Ophthalmology Exam [facility] Start: 1975 Hepatitis C antibody, confirmatory test HEPATITIS C VIRUS SCREENING [facility] Start: 1975 Hepatitis C screening HEPATITIS C VIRUS SCREENING [facility] Start: 1975 Thyroid stimulating hormone measurement TSH [facility] Start: 1975 Tobacco Counseling Tobacco Counseling [facility] End: 12-20-2024 Blood Gas, Venous Blood Gas, Venous Lab Add-On One Time for 1 Occurrences starting 12/20/2024 until 12/20/2024 [facility] Comment on above: One Time for 1 Occurrences starting 12/03 until 12/20/2024 End: 12-21-2024 Blood gas, venous Blood gas, venous Lab Routine Tomorrow AM for 1 Occurrences starting 12/21/2024 until 12/21/2024 [facility] Comment on above: Tomorrow AM for 1 Occurrences starting 0 12/21/2024 until 12/21/2024 C peptide [Mass/volu me] in Serum or Plasma C-peptide Lab Routine Other specified diabetes mellitus with hyperglycemia, without long-term current use of insulin ([facility]) 09/01/2023 4:16 PM EST [employer] End: 09-01-2024 C-peptide C-peptide Lab Routine Other specified diabetes mellitus with hyperglycemia, without long-term current use of insulin ([facility]) 1 Occurrences starting 09/01/2023 until 09/01/2024 [employer] Work Phone: Comment on above: 1 Occurrences starting 09/01/2023 until 09/01/2024 End: 10-18-2024 C-Peptide [facility] [employer] Comment on above: One Time for 1 Occurrences starting 10/03 until 10/18/2024 End: 01-30-2026 CBC panel - Blood by Automated count CBC without diff Lab Routine Postmenopausal syndrome 1 Occurrences starting 01/30/2025 until 01/30/2026 [employer] Work Phone: Comment on above: 1 Occurrences starting 01/30/2025 until 01/30/2026 End: 10-21-2024 CBC W Auto Differential panel - Blood CBC auto differential Lab Routine Daily for 5 Days starting 10/17/2024 until 10/21/2024, 2 completed [employer] Comment on above: Daily for 5 Days starting 10/17/2024 unt il 10/21/2024, 2 completed End: 12-25-2024 CBC W Auto Differential panel - Blood CBC auto differential Lab Routine Daily for 5 Days starting 12/21/2024 until 12/25/2024, 1 completed [employer] Comment on above: Daily for 5 Days starting 12/21/2024 unt il 12/25/2024, 1 completed Chlamydia trachomati s DNA [Presence] in Unspecified specimen by NEENA with probe detection Chlamydia/GC by PCR [facility] Routine Screening for STD (sexually transmitted disease) 12/06/2024 1:37 PM EDT [employer] [facility] Lab Routine Special screening for malignant neoplasm of colon Ordered: 09/01/2023 [employer] Comment on above: Ordered: 09/01/2023 Cologuard [facility] Colog[facility] d [facility] Lab Routine Screening for colon cancer Ordered: 12/06/2024 [employer] Comment on above: Ordered: 12/06/2024 End: 10-21-2024 Comprehensive Metabolic Panel w/ Reflex to MG Comprehensive Metabolic Panel w/ Reflex to MG Lab Routine Daily for 5 Days starting 10/17/2024 until 10/21/2024, 2 completed [employer] Comment on above: Daily for 5 Days starting 10/17/2024 unt il 10/21/2024, 2 completed End: 12-25-2024 Comprehensive Metabolic Panel w/ Reflex to MG Comprehensive Metabolic Panel w/ Reflex to MG Lab Routine Daily for 5 Days starting 12/21/2024 until 12/25/2024, 1 completed [employer] Comment on above: Daily for 5 Days starting 12/21/2024 unt md 12/25/2024, 1 completed End: 12-20-2025 Cortisol Cortisol Lab Routine Vasomotor symptoms due to menopause Brain fog Irritability 1 Occurrences starting 12/20/2024 until 12/20/2025 [employer] Comment on above: 1 Occurrences starting 12/20/2024 until 12/20/2025 End: 12-20-2025 DHEA-sulfate DHEA-sulfate Lab Routine Vasomotor symptoms due to menopause Brain fog Irritability 1 Occurrences starting 12/20/2024 until 12/20/2025 [employer] Comment on above: 1 Occurrences starting 12/20/2024 until 12/20/2025 Electrophoresis Prot ein, Serum Electrophoresis Protein, Serum Lab Routine Peripheral neuropathy due to disorder of metabolism 02/08/2025 3:01 PM EDT [employer] Work Phone: End: 12-20-2025 Estradiol Estradiol Lab Routine Vasomotor symptoms due to menopause Brain fog Irritability 1 Occurrences starting 12/20/2024 until 12/20/2025 [employer] Work Phone: Comment on above: 1 Occurrences starting 12/20/2024 until 12/20/2025 End: 01-30-2026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 Goldberg MD [address] [place] [address] PCP - General 12/21/24 Tack Puller Relationship Specialty Start Date End Date Ashlyn Rosa MD [address] [place] [place] [address] PCP - General Family Medicine 01/10/25 INFORMATION SOURCE (unrecogn ized section and content) DATE CREATED AUTHOR 10/20/2022 [facility] DATE CREATED AUTHOR AUTHOR'S ORGANIZ ATION 10/15/2023 [facility] DATE CREATED AUTHOR AUTHOR'S ORGANIZ ATION 01/14/2025 [facility] DATE CREATED AUTHOR AUTHOR'S ORGANIZ ATION 02/01/2025 [facility] DATE CREATED AUTHOR AUTHOR'S ORGANIZ ATION 02/03/2025 [facility] DATE CREATED AUTHOR AUTHOR'S ORGANIZ ATION 02/11/2025 [facility] Ordered Prescriptions (unrec ognized [...] own medication from home)1644 (Given - Provider: Rupail Denney RN) 0908 (Given - Provider: Bonnie [...] - Comment: [facility] sodium chloride flush 0.9 % [...] BE BASED ON THE PRIMARY CLINICAL RECORDS. [employer] provides no warranty or guarantee of the accuracy or completeness of information in this document.
[2025-03-08] MEDS: DEXTROSE 5 %-0.45 % SOD CHLORD 1,000 ML 125 ML IV ×2 (00:25→07:07)
[2025-03-08] MEDS: POTASSIUM CHLORIDE 10 MEQ ER TABLET 40 MEQ PO (02:35)
[2025-03-08] MEDS: ACETAMINOPHEN 325 MG TABLET 650 MG PO ×2 (04:13→11:31)
[2025-03-08 05:47] LABS: Hematocrit 39.6 % (36.0-48.0); Hemoglobin 13.5 g/dL (12.0-16.0); Immature Granulocytes Abs Auto 0.01 10^3/uL (0.00-0.03); Immature Granulocytes Pct Auto 0.2 % (0.0-0.5); Lymphocytes Absolute Auto 2.2 10^3/uL (1.2-3.8); Mean Corpuscular HGB Conc 34.1 g/dL (29.9-35.2); Mean Corpuscular Hemoglobin 29.7 pg (26.7-34.0); Mean Corpuscular Volume 87.0 fL (81.0-99.0); Platelet Count 286 10^3/uL (150-450); Red Blood Count 4.55 10^6/uL (4.20-5.40); White Blood Count 4.7 10^3/uL (4.0-11.0)
[2025-03-08] MEDS: OXYCODONE HCL 5 MG TABLET PO (05:47)
[2025-03-08 05:50] LABS: Alanine Aminotransferase 16 U/L (14-59); Albumin Globulin Ratio 0.9; Albumin Level 3.1 g/dL (3.4-5.0); Alkaline Phosphatase 81 U/L (46-116); Anion Gap 19.4; Aspartate Amino Transferase 13 U/L (15-37); Blood Urea Nitrogen 6.0 mg/dL (7.0-18.0); Calcium 8.1 mg/dL (8.5-10.1); Carbon Dioxide 18.2 mmol/L (21.0-32.0); Chloride 105 mmol/L (98-107); Estimated GFR (African America >60 (>=60 mL/min/1.73m^2); Estimated GFR (Non-African Ame >60 (>=60 mL/min/1.73m^2); Globulin 3.4 g/dL; Glucose 221 mg/dL (74-106); Potassium 3.6 mmol/L (3.5-5.1); Sodium 139 mmol/L (136-145); Total Protein 6.5 g/dL (6.4-8.2)
[2025-03-08 05:52] LABS: Magnesium 1.5 mg/dL (1.8-2.4)
[2025-03-08] MEDS: MAGNESIUM SULFATE IN WATER 2 GM/50 ML PREMIX IV (07:06)
[2025-03-08] MEDS: ENOXAPARIN SODIUM 40 MG/0.4 ML SYRINGE SUBQ (08:16)
--- NOTE | 2025-03-08 09:30 | CM.NOTE ---
Rounds made with Dr. Mcdonnell, insulin drip continues. Discussed with pt diagnosis and plan of care. Pt voices she is looking for primary care doctor, she was discharged from her other PCP practice d/t no show appointments. Pt states she needs TRIPS for transportation and her telephone has been shut off. Updated SW, either CM or SW will come back in to speak with pt.
[2025-03-08 10:19] LABS: Anion Gap 14.3; Blood Urea Nitrogen 5.0 mg/dL (7.0-18.0); Calcium 8.0 mg/dL (8.5-10.1); Carbon Dioxide 20.0 mmol/L (21.0-32.0); Chloride 105 mmol/L (98-107); Estimated GFR (African America >60 (>=60 mL/min/1.73m^2); Estimated GFR (Non-African Ame >60 (>=60 mL/min/1.73m^2); Glucose 215 mg/dL (74-106); Potassium 4.3 mmol/L (3.5-5.1); Sodium 135 mmol/L (136-145)
--- NOTE | 2025-03-08 11:04 | PM.IMHP1 ---
Internal Medicine - H&P: HPI History of Present Illness Chief complaint: CHEST PAIN, DKA Narrative: Miss Hidalgo Is a 49-year-old female with a past medical history of diabetes, Sjogren's disease who presents to hospital with a chief complaint of chest pain and not feeling well for couple days. Her home health nurse came out to evaluate her and said that she did not look like her normal self, given she had a chief complaint of some chest pain she was told to come to emergency room. She is not really able to describe her chest pain as far as a dull ache or sharp pain, she says it is a twinge and she also noticed some jaw/throat discomfort yesterday. It went away overnight. She denies any infections lately, she has been breathing okay. She does note that she ran out of her insulin roughly 1 week ago, she was unable to make an appoint with her PCP on numerous occasions due to transportation issues and she was dropped as a patient so she was not able to get a refill. Did have a long discussion with her about compliance and now the insulin therapy is available [id number] without a prescription. Whenever patient is discharged she will definitely need close follow-up with PCP and/or endocrinology and diabetic education. Her A1c this morning was 12, she says but was doing pretty good previously it was 19. She notes that her sugars run on average between 170 and 230, she only checks it once a day and says that her home insulin regimen is just 45 units of long-acting insulin a day, she has never been on short-acting. It should be noted that the patient was arrived to the emergency room yesterday and was seen in the ER in the afternoon roughly 8 PM, she was admitted to the hospital floor by the overnight physician on-call, basic orders and DKA management was appropriately started and continued, my first time evaluate the patient was this morning. Review of Systems ROS Status of ROS 10 or more systems reviewed and unremarkable except as noted in history and below [facility] Medical History (Updated 03/08/25 @ 11:12 by MATTHEW ELKINS DO) Twin delivery by ?O30.009 - Twin , unspecified number of placenta and unspecified number of amniotic sacs, unspecified trimester (ICD-10) delivery delivered ?O82 - Encounter for delivery without indication (ICD-10) Smoker ?F17.200 - Nicotine dependence, unspecified, uncomplicated (ICD-10) Weight loss, unintentional ?R63.4 - Abnormal weight loss (ICD-10) Sjogren syndrome ?M35.00 - Sjogren syndrome, unspecified (ICD-10) Diabetes ?E11.9 - Type 2 diabetes mellitus without complications (ICD-10) Family History Mother Family history of diabetes mellitus Family history of myocardial infarction Family history of stroke Unknown Family history of hypertension Social History Within the past year, how often did you have a drink containing alcohol: monthly or less Smoking status: Light tobacco smoker Non-prescribed substance use: denies use Previous occupational history: [employer] Known occupational exposures/hazards: No Highest level of school completed/degree received: some college, no degree Are you now , , , , never or living with a partner: Little interest or pleasure in doing things: not at all Feeling down, depressed, or hopeless: not at all Do you think of yourself as: straight/heterosexual Gender Identity: female Meds Home Medications and Allergies Home Medications ?Medication ?Instructions ?Recorded ?Confirmed ?Type dulaglutide 0.75 mg/0.5 mL 0.75 mg subcut .weekly PRN blood 03/07/25 03/08/25 History subcutaneous pen injector sugar (Trulicity) empagliflozin 10 mg tablet 10 mg PO DAILY 03/07/25 03/08/25 History (Jardiance) blood sugar diagnostic (True 03/08/25 03/08/25 History Metrix Glucose Test Strip) insulin glargine 100 unit/mL (3 40 unit subcut DAILY 03/08/25 03/08/25 History mL) subcutaneous pen (Lantus Solostar U-100 Insulin) lancets 30 gauge (Unilet Super 03/08/25 03/08/25 History Thin Lancets) pen needle, diabetic 32 gauge x 03/08/25 03/08/25 History (Unifine Pentips Plus) Allergies Allergy/AdvReac Type Severity Reaction Status Date / Time No Known Drug Allergies Allergy Verified 03/07/25 19:53 Exam Narrative Exam Narrative: General: Awake and alert, no acute distress HEENT: Normocephalic, atraumatic, no scleral icterus noted Lungs: Clear to auscultation bilaterally Cardiac: Regular rate and rhythm, no murmurs appreciated GI: Soft, nontender, regular bowel sounds. Extremities: Active and passive range of motion intact throughout, no edema Neuro: Cranial nerves II through XII intact, no focal deficits noted Skin: No rashes or lesions, no signs of jaundice Constitutional Vital Signs, click to edit/add: Last Vital Signs Temp 96.6 F L 03/08/25 08:04 Pulse 80 03/08/25 10:00 Resp 18 03/08/25 08:04 BP 94/69 03/08/25 08:04 Pulse Ox 97 03/08/25 08:04 O2 Del Method Room Air 03/08/25 08:04 Internal Medicine - H&P: Reslt Labs Labs: Short CBC 03/07/25 03/08/25 Range/Units 20:00 05:21 WBC 5.4 4.7 (4.0-11.0) 10^3/uL Hgb 14.5 13.5 (12.0-16.0) g/dL Hct 42.8 39.6 (36.0-48.0) % Plt Count 315 286 (150-450) 10^3/uL BMP 03/07/25 03/08/25 03/08/25 20:00 05:21 10:03 Sodium 133 L 139 135 L Potassium 3.9 3.6 4.3 Chloride 99 105 105 Carbon Dioxide 10.8 L 18.2 L 20.0 L BUN 9.0 6.0 L 5.0 L Creatinine 0.71 0.47 L 0.44 L Glucose 422 H 221 H 215 H Calcium 8.2 L 8.1 L 8.0 L Liver Function 03/08/25 Range/Units 05:21 Total Bilirubin 0.4 (0.2-1.0) mg/dL Direct Bilirubin 0.1 (0.0-0.2) mg/dL AST 13 L (15-37) U/L ALT 16 (14-59) U/L Alkaline Phosphatase 81 (46-116) U/L Albumin 3.1 L (3.4-5.0) g/dL Urine 03/07/25 Range/Units 21:15 Urine Color Lt. yellow (YELLOW) Urine Clarity Clear (CLEAR) Urine pH 5.5 (5.0-9.0) Ur Specific [place] >=1.030 A (1.005-1.025) Urine Protein Negative (NEG/TRACE) mg/dL Urine Glucose (UA) Negative (NEGATIVE) mg/dL Assessment and Plan Assessment and Plan (1) DKA (diabetic ketoacidosis): Assessment and Plan: ? Secondary to noncompliance ? No evidence of infection, her white count is normal ? She was maintained on insulin infusion overnight at 3 units/h, plan to continue this ? Her anion gap has improved and is slow and consistent fashion. ? Her last BMP at 10 AM showed anion gap was closed less than 15, will plan for repeat BMP at 2 PM. If the gap remains closed we will then initiate subcutaneous insulin which I will order and plan to titrate off the insulin infusion completely if her 5 PM labs indicate closed anion gap and resolution of her acidosis. ? Will plan to start long and short acting insulin with a sliding scale, encouraged the patient to pay attention closely to what the nurses are doing for her short acting mealtime insulin and we will plan to DC with this. ? Will likely continue her empagliflozin tomorrow however it will be substituted for Invokana while inpatient. (2) Hyperglycemia due to type 2 diabetes mellitus: Assessment and Plan: See above, patient will require diabetic education upon discharge. Qualifiers: Diabetes mellitus terminal gauger insulin use: without care home use Qualified Code(s): E11.65 - Type 2 diabetes mellitus with hyperglycemia (3) Noncompliance: Assessment and Plan: Not necessarily noncompliance, she ran out of her insulin and was unaware that she could go buy it [id number]. We will try and arrange her close close follow-up with family physician at minimum.
--- NOTE | 2025-03-08 11:57 | SWNOTE1 ---
SW consulted for financial concerns. SW stopped in and spoke with pt. Pt lives at home alone. She does have a walker at home and she does have [facility] coming in, therapy and nursing. SW did ask pt if she has any financial concerns at this time? Pt voiced her phone does not work and it was turned off so she has not been able to make appointments or call about her medications. SW asked if she could not afford her medications and that is why she did not pick them up? She stated no it was due to transportation. She did not have a phone to call trips and schedule a ride. SW and pt spoke about transportation. SW did recommend using her insurance if needed as Medicaid does offer transport, but have to call days in advance. SW advised the number will be on the back of Medicaid card. The only other transport would be a taxi, but pt voiced she can't afford that. SW asked if she has issues monthly affording her meds? She stated no, her Medicaid usually covers everything. SW asked if her phone was turned back on? She stated no not at this time. SW and pt spoke about various resources. She stated she is already in contact with [facility]. They assist with paying her monthly rent. She stated each month she has to wait and see if they are going to pay for it, voiced that was stressful. SW asked if it was low income housing? She stated no, just regular apartment. SW asked if she was planning on moving in to low income housing? She voiced she would like a list as she is thinking she will have to. SW to provide list. She also stated she does get food stamps as well. SW asked if she is working right now? She stated she has not been able work due to her medical issues. SW asked if she has applied for disability? She stated she is going through a product communications manager for this. SW asked if she has already applied? She stated yes and that it is just a process. SW and pt spoke about pt not having a primary care physician. She stated she was going to [facility], but she is not able to go there anymore as she was kicked out. SW asked who she was seeing prior to that? She stated nobody. SW did let pt know that not many PCP's are taking new patients and SW will attempt to get her in with someone. Pt then spoke about the doctor telling her about the fast acting insuling that can be bought over the counter. SW was unsure, but pt wanted to know if that was something her Medicaid would pay for. SW to call her pharmacy and see. SW did ask pt if she has family close to her that can assist? Pt stated her daughter does help her. Her daughter lives in [place] and comes about 1x a week to take her grocery shopping. SW asked if she has thought about moving in with daughter? She stated no. Her daughter lives in 1 bedroom apt and she is only in her 20's and does not want to burden her. TITUS asked pt what SW can do to help? Pt would like SW to look in to fast acting insulin over the counter, list of low income housing, and finding a new PCP.
[2025-03-08] MEDS: PANTOPRAZOLE SODIUM 40 MG VIAL IV (13:09)
--- NOTE | 2025-03-08 13:18 | SWNOTE1 ---
TITUS called [facility] in [place] to see if they have over the counter fast acting insulin. TITUS spoke to pharmacy and she voiced they do not and she does not know anyone that does. SW to let pt know. TITUS also called Dr. Wallace's office to see if Dr. Gonzalez was accepting new patients, no answer. TITUS left message. TITUS took the low income housing list in to patient, she voiced appreciation. TITUS updated her on insulin and PCP.
--- NOTE | 2025-03-08 13:56 | SWNOTE1 ---
SW did call [facility] and case management was in room as well. Pharmacist was able to speak with case management. They do sell over the counter insulin. N,R and 70/30. $24 per vial and $42 per case. Pt has to buy insulin to purchase syringes and needle. SW to let pt know.
[2025-03-08 14:23] LABS: Anion Gap 14.2; Blood Urea Nitrogen 8.0 mg/dL (7.0-18.0); Calcium 7.8 mg/dL (8.5-10.1); Carbon Dioxide 19.8 mmol/L (21.0-32.0); Chloride 104 mmol/L (98-107); Estimated GFR (African America >60 (>=60 mL/min/1.73m^2); Estimated GFR (Non-African Ame >60 (>=60 mL/min/1.73m^2); Glucose 268 mg/dL (74-106); Magnesium 1.5 mg/dL (1.8-2.4); Potassium 4.0 mmol/L (3.5-5.1); Sodium 134 mmol/L (136-145)
[2025-03-08] MEDS: DEXTROSE 5 %-0.45 % SOD CHLORD 1,000 ML 130 ML IV (14:49)
[2025-03-08] MEDS: MAGNESIUM SULFATE IN WATER 4 GM/100 ML PIGGYBACK IV (14:50)
[2025-03-08] MEDS: INSULIN GLARGINE 300 UNIT/3 ML INSULN.PEN 20 UNIT SQ (14:55)
--- NOTE | 2025-03-08 15:38 | SWNOTE1 ---
TITUS received a call back from Dr. Wallace office and Dr. Gonzalez is not starting until beginning of April so not able to accept.
--- NOTE | 2025-03-08 15:43 | SWNOTE1 ---
TITUS called Dr. Dias's office to see if they can take pt as a new patient. TITUS reviewed home meds with nurse at Dr. Dias's office and then was transferred back to front desk person. She voiced they can accept. Pt is set up to see Sarah Hoff on 03/13/25 at 2:30pm. TITUS let nurse know and will let pt know as well.
[2025-03-08 16:20] LABS: Anion Gap 17.8; Blood Urea Nitrogen 8.0 mg/dL (7.0-18.0); Calcium 8.0 mg/dL (8.5-10.1); Carbon Dioxide 18.1 mmol/L (21.0-32.0); Chloride 103 mmol/L (98-107); Estimated GFR (African America >60 (>=60 mL/min/1.73m^2); Estimated GFR (Non-African Ame >60 (>=60 mL/min/1.73m^2); Glucose 224 mg/dL (74-106); Magnesium 2.6 mg/dL (1.8-2.4); Potassium 3.9 mmol/L (3.5-5.1); Sodium 135 mmol/L (136-145)
[2025-03-08] MEDS: INSULIN ASPART 300 UNIT/3 ML PEN SUBQ ×2 (16:57→22:07)
[2025-03-08] MEDS: INSULIN ASPART 300 UNIT/3 ML PEN 12 UNIT SUBQ (20:39)
[2025-03-08] MEDS: REMOVE NICOTINE PATCH 1 PATCH TOPICAL (22:12)
[2025-03-09] VITALS (8 sets, daily range): BP systolic 102–122; BP diastolic 62–76; PULSE 67–81; TEMP 36.4–36.7; O2SAT 96–97
[2025-03-09 05:29] LABS: Hematocrit 40.5 % (36.0-48.0); Hemoglobin 14.1 g/dL (12.0-16.0); Mean Corpuscular HGB Conc 34.8 g/dL (29.9-35.2); Mean Corpuscular Hemoglobin 29.9 pg (26.7-34.0); Mean Corpuscular Volume 85.8 fL (81.0-99.0); Platelet Count 254 10^3/uL (150-450); Red Blood Count 4.72 10^6/uL (4.20-5.40); White Blood Count 5.1 10^3/uL (4.0-11.0)
[2025-03-09 05:48] LABS: Anion Gap 17.4; Blood Urea Nitrogen 9.0 mg/dL (7.0-18.0); Calcium 8.2 mg/dL (8.5-10.1); Carbon Dioxide 21.3 mmol/L (21.0-32.0); Chloride 108 mmol/L (98-107); Estimated GFR (African America >60 (>=60 mL/min/1.73m^2); Estimated GFR (Non-African Ame >60 (>=60 mL/min/1.73m^2); Glucose 173 mg/dL (74-106); Magnesium 1.8 mg/dL (1.8-2.4); Potassium 3.7 mmol/L (3.5-5.1); Sodium 143 mmol/L (136-145)
[2025-03-09] MEDS: INSULIN ASPART 300 UNIT/3 ML PEN SUBQ ×3 (07:53→16:06)
[2025-03-09] MEDS: PANTOPRAZOLE SODIUM 40 MG VIAL IV (08:13)
[2025-03-09] MEDS: ENOXAPARIN SODIUM 40 MG/0.4 ML SYRINGE SUBQ (08:13)
[2025-03-09] MEDS: CANAGLIFLOZIN 100 MG TABLET PO (08:13)
[2025-03-09] MEDS: INSULIN GLARGINE 300 UNIT/3 ML INSULN.PEN 20 UNIT SQ (08:13)
--- NOTE | 2025-03-09 09:40 | CM.NOTE ---
Rounds made with Dr. Mcdonnell, pt will discharge to home today. Pt will discharge with [facility] and f/u appointment with PCP. Pt will also need all diabetic supplies at discharge.
--- NOTE | 2025-03-09 09:40 | SWNOTE1 ---
SW stopped back in to speak with pt and made sure all questions/resources were addressed that SW can assist with. TITUS advised pt that her PCP will be Sarah Hoff who is a SCRUBBER MACHINE TENDER at Dr. Dias's office. Follow up is 03/13/25 at 2:30 pm. Pt will try to call trips to get transportation scheduled. Pt voiced she has the housing list that was provided and she spoke with nurse/manager rn case about insulin at [facility]. At this time pt voiced no other needs. Her daughter will be coming to pick her up later this afternoon.
--- NOTE | 2025-03-09 11:32 | CM.NOTE ---
Dr. Mcdonnell will send all prescriptions to pharmacy, pt give written script for glucose monitor, needles, lancets, alcohol, and test strips. Pt also provided with written diabetic education and will be seen by dietican (spoke with bone cooking operator regarding consult). Faxed referral for diabetic education to [facility] and they will call patient with appointment. Pt verbalizes understanding. Discussed with pt about telephone being turned off, pt can receive incoming calls. Verified contact number for [facility] to call to reach pt.
--- NOTE | 2025-03-09 12:09 | PM.DS1 ---
DS: Providers Provider Date of admission: 03/07/25 23:59 Primary care physician: Non-Staff Physician, Consults: 03/07/25 22:39 Consult to Cmo & President Routine Reason for consultation: Diabetic Education Consult to Dietitian Routine Reason for consultation: Provide recommendations for diabetic diet 03/08/25 Consult to Dietitian Routine Reason for consultation: diabetic Consult to Business Office Assistant Routine Reason for consult:: Financial Concerns Discharging clinician: MATTHEW ELKINS DS: Diagnosis Discharge Diagnosis (1) DKA (diabetic ketoacidosis): (2) Hyperglycemia due to type 2 diabetes mellitus: Qualifiers: Diabetes mellitus chcf insulin use: without terminal computer operator use Qualified Code(s): E11.65 - Type 2 diabetes mellitus with hyperglycemia (3) Noncompliance: DS: Summary Hospital Course Hospital Course: Miss Hidalgo is a 49-year-old female who was admitted the hospital the afternoon of March 07 with a chief complaint of not feeling well, she was separately found to be in diabetic ketoacidosis with elevated blood sugar. However it was only elevated at 440 secondary to her Farxiga therapy. Her anion gap was significantly elevated, she was started on an insulin infusion. Her labs were checked per DKA protocol. Her symptomatology and labs improved from overnight from the third to the fourth, her anion gap unfortunately was not closed until the evening of March 08. It was close on 3 subsequent blood draws at that point in time the insulin infusion was titrated off and she was started on subcutaneous insulin. The morning of June 08, she had a little bit of chest twinge , her tropes were normal and there is no signs of any ischemic changes, her telemetry was unchanged. I did have a very long discussion, roughly 30 minutes on March 08 and again on March 09 about her diabetic control, compliance, and need for continued insulin therapy going forward. If she were to run out of her prescription again, she is able to go buy insulin [id number], this was explained to her in detail and our ancillary staff did help provide her with further information. I did resume her Farxiga the morning of March 09, she will be discharged on glargine 20 units nightly and aspart sliding scale 3 times daily with meals and hopefully she has enough test supplies to accurately check her glucose with each meal. She is high risk for readmission for further diabetic issues. She needs continued diabetic education in the outpatient setting. Time Spent with Patient Time attestation: Total time spent providing and/or coordinating discharge services: Exam Constitutional Vital Signs, click to edit/add: Last Vital Signs Temp 98.0 F 03/09/25 08:00 Pulse 72 03/09/25 08:00 Resp 18 03/09/25 08:00 BP 102/66 03/09/25 08:00 Pulse Ox 96 03/09/25 08:00 O2 Del Method Room Air 03/09/25 08:00 DS: Data Data Completed and Pending Labs on day of discharge: Labs from last 24 hours 03/09/25 03/09/25 03/09/25 12:00 07:33 05:12 WBC 5.1 RBC 4.72 Hgb 14.1 Hct 40.5 MCV 85.8 MCH 29.9 MCHC 34.8 RDW 13.5 Plt Count 254 MPV 9.7 Sodium 143 Potassium 3.7 Chloride 108 H Carbon Dioxide 21.3 Anion Gap 17.4 BUN 9.0 Creatinine 0.25 L Est GFR ( Amer) >60 Est GFR (Non-Af Amer) >60 BUN/Creatinine Ratio 36.0 Glucose 173 H Calcium 8.2 L Phosphorus 3.4 Magnesium 1.8 Troponin I High Sens 5.1 POC Glucose 217 H 219 H 03/08/25 03/08/25 03/08/25 22:06 20:03 19:00 WBC RBC Hgb Hct MCV MCH MCHC RDW Plt Count MPV Sodium Potassium Chloride Carbon Dioxide Anion Gap BUN Creatinine Est GFR ( Amer) Est GFR (Non-Af Amer) BUN/Creatinine Ratio Glucose Calcium Phosphorus Magnesium Troponin I High Sens POC Glucose 291 H 305 H 244 H 03/08/25 03/08/25 03/08/25 18:02 16:56 16:02 WBC RBC Hgb Hct MCV MCH MCHC RDW Plt Count MPV Sodium 135 L Potassium 3.9 Chloride 103 Carbon Dioxide 18.1 L Anion Gap 17.8 BUN 8.0 Creatinine 0.39 L Est GFR ( Amer) >60 Est GFR (Non-Af Amer) >60 BUN/Creatinine Ratio 20.5 Glucose 224 H Calcium 8.0 L Phosphorus 2.6 Magnesium 2.6 H Troponin I High Sens POC Glucose 172 H 176 H 03/08/25 03/08/25 03/08/25 16:01 15:01 14:03 WBC RBC Hgb Hct MCV MCH MCHC RDW Plt Count MPV Sodium 134 L Potassium 4.0 Chloride 104 Carbon Dioxide 19.8 L Anion Gap 14.2 BUN 8.0 Creatinine 0.51 L Est GFR ( Amer) >60 Est GFR (Non-Af Amer) >60 BUN/Creatinine Ratio 15.7 Glucose 268 H Calcium 7.8 L Phosphorus 2.8 Magnesium 1.5 L Troponin I High Sens POC Glucose 208 H 226 H 03/08/25 03/08/25 14:02 13:07 WBC RBC Hgb Hct MCV MCH MCHC RDW Plt Count MPV Sodium Potassium Chloride Carbon Dioxide Anion Gap BUN Creatinine Est GFR ( Amer) Est GFR (Non-Af Amer) BUN/Creatinine Ratio Glucose Calcium Phosphorus Magnesium Troponin I High Sens POC Glucose 251 H 252 H Discharge Plan Discharge Disposition: Home Health Service Condition: Fair Discharge Medications: New insulin aspart U-100 [Novolog FlexPen U-100 Insulin] 100 unit/mL (3 mL) Insulin Pen 3 - 15 unit subcut ACHS 30 Days Qty: 15 0RF insulin glargine [Lantus Solostar U-100 Insulin] 100 unit/mL (3 mL) Insulin Pen 20 unit subcut QD 30 Days Qty: 15 0RF Continued Jardiance 10 mg tablet 10 mg PO DAILY Trulicity 0.75 mg/0.5 mL pen injector 0.75 mg SUBCUT .weekly PRN (Reason: blood sugar) (DME) True Metrix Glucose Test Strip Strip MISCELLANEOUS (DME) pen needle, diabetic [Unifine Pentips Plus] 32 gauge x 5/32 needle MISCELLANEOUS (DME) lancets [Unilet Super Thin Lancets] 30 gauge misc MISCELLANEOUS Discontinued insulin glargine [Lantus Solostar U-100 Insulin] 100 unit/mL (3 mL) insulin pen 40 unit SUBCUT DAILY Print Language: [place] Community Engagement Specialist/Automobile Repair Service Estimator Instructions: Discharge with [facility] home health services. Phone number is [phone] Forms: Portal Instructions Follow Up Appointments: New patient appointment with Sarah Hoff on 03/13/25 at 2:30pm. Phone number [phone] Address: [address] [place] [address] Please bring insurance card and ID. Arrive 15 mins early for paperwork
--- NOTE | 2025-03-09 12:36 | SWNOTE1 ---
TITUS faxed dc med rec, dc summary, and CRF to [address] CRF placed on chart.
--- NOTE | 2025-03-09 12:52 | CM.NOTE ---
Addendum entered by Ondina Nath 03/09/25 13:02: Outpatient echo also ordered and faxed to [facility]. Pt verbalizes understanding if she does not hear from [facility] in the next week to call them. Telephone number provided to patient. Original Note: Outpatient stress test test ordered by Dr. Mcdonnell, faxed order to [facility]. [facility] will call pt for appointment. Updated pt.
--- NOTE | 2025-03-09 15:20 | PC.NURSE ---
patient reports not feeling right and asked for her vitals and blood sugar to be checked. Vitals obtained and WNL. Blood sugar obtained and was 155.
--- NOTE | 2025-03-12 12:14 | CM.DCFOLLOWU ---
1st attempt 03/12/25, no answer
--- NOTE | 2025-03-13 13:00 | CM.DCFOLLOWU ---
Person spoke with:patient How are you feeling? doing alright, sugars are running in the 300's, voiced that is her normal How is your pain?none Did you understand your discharge instructions?yes Do you have any questions about your discharge instructions? no Were you given any prescriptions at discharge? yes Were you able to get your prescriptions filled?yes Do you understand how to take your medications as ordered?yes Do you have any questions about your follow up appointment and do you plan to keep your follow up appointment? Pt's follow up apt is today. She is not able to make it because she can't call out from her phone. Her daughter works in [employer] and is not home in time to take her. She can't call trips or her insurance to schedule a ride. TITUS asked if there was any date and time that worked for her and SW can reschedule. She stated any time, but she can't call out from her phone to schedule time. Voiced she wished they could do a visit of the phone/computer. TITUS advised they would likely have to see her in person the first time. SW to call Sarah's office and see if there is anything that can be done. Is there anything else that you would like to discuss?no Questions/Comments/Concerns/Other:none
--- NOTE | 2025-03-13 13:25 | SWNOTE1 ---
TITUS called Sarah Hoff's office and cancelled pt's appointment for today. TITUS let them know she has issues with transportation and her phone can't call out. TITUS advised nurse at Sarah Hoff's office that once pt gets phone fixed, she will call to get apt scheduled. TITUS called pt and let her know to call Sarah's office once she gets her phone paid. She voiced she is going to speak to her daughter about getting her cell phone bill paid. TITUS let her know that the number for Sarah's office is on her dc paperwork. TITUS advised to call back TITUS with any questions.
--- NOTE | 2025-03-15 09:26 | SWNOTE1 ---
TITUS had a message that Darrion from [address] had called and they need the order. TITUS looked back at pt's stay and the orders were faxed on 03/09/25 at 12:36pm. TITUS emailed [address] and verified that both fax numbers that TITUS has on file are still working fax numbers. SW requested they check again for the orders. Intake reached back out via email and voiced they do not have anything, and they did confirm the fax number TITUS has are correct. TITUS printed off dc med rec, CRF, and dc summary from pt's stay and sent securely via email to [address] TITUS also updated [address] that pt was not able to get transportation to her new pt apt with Sarah Hoff NP. TITUS requested they use there physician group for follow up while pt is current with them.
== END 2025-03-09 17:00 | disposition home health service (06) | DRG 420 ==
LOC: ER 23:07 → MS 03-08 00:08
PROVIDERS: Physician Assistant; Admitting Provider Internal Medicine; Emergency Provider Emergency Medicine; Visit Provider Internal Medicine
DX: E11.10 Type 2 diabetes mellitus with ketoacidosis without coma (principal); Z79.85 Long-term (current) use of injectable non-insulin antidiabetic drugs; Z79.4 Long term (current) use of insulin; Z79.84 Long term (current) use of oral hypoglycemic drugs; T38.3X6A Underdosing of insulin and oral hypoglycemic [antidiabetic] drugs, initial encounter; Z91.148 Patient's other noncompliance with medication regimen for other reason; M35.00 Sjogren syndrome, unspecified; R07.9 Chest pain, unspecified; F17.200 Nicotine dependence, unspecified, uncomplicated
CPT/HCPCS: 36415; 71045; 80048; 80076; 81003; 82009; 82800; 82948; 83036; 83735; 84100; 84484; 84703; 85025; 85027; 93005; 96374; 96375; 99285; J1650; J2405; J3475; J3490

== ENCOUNTER 2025-04-24 10:11 | Outpatient (OUT) | payer MEDICAID, SELFPAY ==
--- OUTSIDE RECORDS SUMMARY | 2025-04-16 14:40 | XMS_ITS | Encounter Summary ---
Author Organization [facility] Address [address] [place] [address] Care Team Providers Care Wall Washer Name Role Phone Unavailable Primary Care Provider Unavailabl e Reason for Visit * ReasonCommentsThyroid ProblemNEW NODULE REF/LAB/US * Other Medical (Routine) - ClosedSpecialtyDiagnoses / ProceduresReferred By ContactReferred To ContactEndocrinology Diagnoses Nontoxic single thyroid nodule Procedures NV OFFICE/OUTPATIENT NEW MODERATE MDM 45 MINUTES Julieth Roas MD [address] [facility], [facility], [place] [address] Phone: tel: fax: Meghna Christianson MD [address], [address] [place] [address] Phone: tel: fax: Referral IDStatusReasonStart DateExpiration DateVisits RequestedVisits [id number]/18/202512/ Encounter Details DateTypeDepartmentCare Team (Latest Contact Info)Ehvkeysotmz97/13/2025 2:40 PM EDTOffice Visit [facility] [address] [place] [address] Meghna Christianson MD [address] [place] [address] Postablative hypothyroidism (Primary Dx); Thyroid nodule Social History Tobacco UseTypesPacks/DayYears UsedDateSmoking Tobacco: Never Assessed CommentsUnknownSex and Gender InformationValueDate RecordedSex Assigned at Not on fileLegal XglLdzalz41/06/2024 9:57 AM ESTGender IdentityNot on fileSexual OrientationNot on filedocumented as of this encounter Last Filed Vital Signs Vital SignReadingTime TakenCommentsBlood Pressure--Ytfyf565704/16/2025 1:44 PM EDT Temperature--Respiratory Zgnq5821 1:44 PM EDTOxygen Bmdxmjkyhy08% 04/16/2025 1:44 PM EDTInhaled Oxygen Concentration--Gulcqm73.9 kg (207 lb) 04/16/2025 1:44 PM FYXSemoxm768.2 cm (5' 7 )04/16/2025 1:44 PM EDTBody Mass Index32.421 1:44 PM EDTdocumented in this encounter Progress Notes * Meghna Christianson MD - 04/16/2025 2:40 PM EDT Anayeli Hidalgo is a 49 y.o. female Julieth Rosa MD presents with chief complaint of Thyroid Problem (NEW NODULE REF/LAB/US) HPI: 04/2025 History of Present Illness The patient is a new patient referred by Dr. Julieth Rosa for hypothyroidism following ablative therapy. She underwent radioactive treatment for Graves' disease a long time ago and was previously on thyroid medication. Her TSH levels have been fluctuating between 8 and 15, with the most recent reading being 15 in 02/2025. Her free T4 level was recorded as low at 0.5, with a normal range of 0.92 to 1.68. Results Laboratory Studies TSH running between 8-15, last time 15 in February/2025. Free T4 in the low side 0.5, normal range 0.92-1.68. Imaging Ultrasound shows right lobe 6.9 x 3.3 x 3.1 cm, left lobe 6.6 x 3.3 x 3.1 cm. Nodule 16 x 12 x 11 mm, isoechoic solid wider than taller, ill-defined non- ecogenic foci and TR three. SUBJECTIVE: MEDICATIONS: Current Outpatient Medications Medication Instructions Dulaglutide (Trulicity) 0.75 MG/0.5ML solution auto-injector Inject under the skin empagliflozin (Jardiance) 10 MG Take by mouth insulin aspart (NovoLOG) 100 UNIT/ML pen cartridge 3 times daily before meals Insulin Glulisine (APIDRA SOLOSTAR SC) 30 Units, Daily levothyroxine (SYNTHROID, LEVOXYL) 75 mcg, Oral, Daily ALLERGIES: Allergies[1] Medical History[2] Surgical History[3] REVIEW OF SYMPTOMS: 14 POINT OF SYSTEM REVIEWED AND NEGATIVE OBJECTIVE: 04/16/2025 1:44 PM Vitals BMI 32.42 kg/m2 BSA (m2) 2.11 m2 Heart Rate 99 SpO2 99 % Resp 20 Height (in) 5' 7 Weight (lb) 207 Visit Report Report Physical Exam Constitutional: Appearance: Normal appearance. She is normal weight. HENT: Head: Normocephalic and atraumatic. Right Ear: External ear normal. Nose: Nose normal. Mouth/Throat: Pharynx: Oropharynx is clear. Eyes: Extraocular Movements: Extraocular movements intact. Pupils: Pupils are equal, round, and reactive to light. Cardiovascular: Rate and Rhythm: Normal rate and regular rhythm. Pulmonary: Effort: Pulmonary effort is normal. Abdominal: General: Abdomen is flat. Palpations: Abdomen is soft. Musculoskeletal: General: Normal range of motion. Skin: General: Skin is warm. Neurological: General: No focal deficit present. Mental Status: She is alert. Psychiatric: Mood and Affect: Mood normal. Behavior: Behavior normal. ASSESSMENT AND PLAN: Assessment/Plan Diagnoses and all orders for this visit: Postablative hypothyroidism - levothyroxine (Synthroid, Levoxyl) 75 MCG tablet; Take 1 tablet (75 mcg) by mouth Daily - T3, free; Future - T4, free; Future - TSH; Future Thyroid nodule Assessment & Plan 1. Hypothyroidism post ablation: - History of radioactive treatment for Graves' disease. Previously on thyroid medication. TSH levels between 8-15, last reading 15 in 02/2025, free T4 at 0.5. - Levothyroxine 75 mcg daily prescribed. - Labs to be checked in 4 months to adjust dosage if necessary. 2. Thyroid nodule: - 16 mm nodule in the left lobe, classified as TR three, noted on ultrasound. - No biopsy needed. Repeat ultrasound in 1 year. Follow-up: Labs to be checked in 4 months. Repeat ultrasound in 1 year. Follow up in about 4 months (around 08/17/2025). [1] No Known Allergies [2] No past medical history on file. [3] Past Surgical History: Procedure Laterality Date CT ANGIOGRAM ABDOMEN PELVIS 10/17/2024 CT ANGIOGRAM ABDOMEN PELVIS 10/17/2024 documented in this encounter Plan of Treatment DateTypeDepartmentCare Team (Latest Contact Info)Nlbkugxwefj20/13/2026 2:30 PM ESTOffice Visit [facility] [address] [place] [address] Meghna Christianson MD [address] [place] [address] NameTypePriorityAssociated DiagnosesOrder ScheduleT3, freeLabRoutine Postablative hypothyroidism Expected: 04/16/2025 (Approximate), Expires: 04/16/2026T4, freeLabRoutine Postablative hypothyroidism Expected: 04/16/2025 (Approximate), Expires: 04/16/2026TSHLabRoutine Postablative hypothyroidism Expected: 04/16/2025 (Approximate), Expires: 04/16/2026documented as of this encounter Visit Diagnoses Diagnosis Postablative hypothyroidism- Primary Other postablative hypothyroidism Thyroid nodule Nontoxic uninodular goiter documented in this encounter
--- NOTE | 2025-04-24 09:30 | NM_ITS ---
Patient Name: JUMA HIRSCH MR#: [id number] : 1975 Exam Date: 04/24/2025 Ordering Doctor: MATTHEW ELKINS RADIOLOGY REPORT PROCEDURE: NM URMILA PERF SPECT REST STR COMPARISON: None. INDICATIONS: CHEST PAIN TECHNIQUE: Exam Description: Stress/Rest one day protocol gated SPECT Rest Imagin.4 mCi Tc-99m Cardiolite IV on 04/24/2025 Stress Imaging 30.3 mCi Tc-99m Cardiolite IV on 04/24/2025 Exercise Protocol: 0.4 mg Lexiscan given IV Heart Rate (bpm): Rest: 82 Max: 117 PMHR: 68 Blood Pressure: Rest: 106/78 Max: 117/77 Symptoms: Rest and peak stress ECG findings were pending, and the exercise portion of the study was pending per attending physician [facility]. For more details, please see separate cardiac stress test report. FINDINGS: QUALITY OF STUDY: Good PERFUSION DEFECT: LOCATION: N/A SIZE: N/A SEVERITY: N/A TYPE: N/A WALL MOTION: Normal wall motion LV SIZE: 85 mL. TID / TCD: 0.9 LVEF: Calculated EF 69%. SUMMARY: Myocardial perfusion imaging study is normal CONCLUSION: 1. Myocardial perfusion is normal 2. Global left ventricular systolic function is normal; EF 69% 3. No transient ischemic dilatation Dictated by: Cece Goldsmith M.D. on 04/24/2025 at 16:41 Approved by: Cece Goldsmith M.D. on 04/24/2025 at 16:42
--- NOTE | 2025-04-24 10:00 | CA_ITS ---
Patient Name: JUMA HIRSCH MR#: [id number] : 1975 Exam Date: 04/24/2025 Ordering Doctor: MATTHEW ELKINS ECHOCARDIOGRAM REPORT PROCEDURE: CA ECHO DOPPLER COMPLETE INDICATIONS: Chest pain COMPARISON: None. DESCRIPTION: COMPLETE ECHOCARDIOGRAM Real-time transthoracic echocardiography with 2D, M-mode, spectral and color flow Doppler performed. QUALITY: Technical quality was good. LEFT VENTRICLE: Normal chamber size. Thickened septal wall. LV EF: Global left ventricular systolic function is normal. Visually estimated ejection fraction is 55 to 60%. Calculated left ventricular ejection fraction is 58%. No significant wall motion abnormalities. DIASTOLIC: Grade I diastolic dysfunction. ATRIAL SEPTUM: Inadequately seen. LEFT ATRIUM: Normal chamber size. RIGHT ATRIUM: Mild dilatation. RIGHT VENTRICLE: Normal chamber size. Normal right ventricular systolic function. TRICUSPID VALVE: Normal mobility and thickness. No stenosis with trivial regurgitation. No evidence of pulmonary hypertension. RVSP 29mmHg. MITRAL VALVE: Normal mobility and thickness. No evidence of mitral valve stenosis. There is no mitral annular calcification. No mitral regurgitation. AORTIC VALVE: Normal trileaflet appearance. No visible sclerosis. Normal leaflet mobility. No evidence of aortic valve stenosis. Trivial aortic regurgitation. AORTIC ROOT: Normal diameter and appearance. PULMONIC VALVE: Normal thickness and mobility. No stenosis. No regurgitation. PERICARDIUM: No evidence of pericardial effusion. IVC: Collapses with inspiration. Normal size. CONCLUSION: 1. Global left ventricular systolic function is normal; visually estimated ejection fraction is 55 to 60% 2. Normal right ventricular size and systolic function 3. Grade 1 diastolic dysfunction 4. The right atrium is mildly dilated 5. No significant valvular abnormalities Adult Echocardiography Procedure Report Left Ventricle LVEDD (3.7 - 5.6 cm): 4.37 cm LVESD (2.2 - 4.0 cm): 3.10 cm LVIVS thickness (0.6 - 1.2 cm): 1.33 cm LVPW thickness (0.5 - 1.0 cm): 0.98 cm e': 0.06 m/s E - e': 8.30 LVOT Max Gradient: 3.75 mm[Hg] LVOT Area (cm2): 0.97 m/s Peak Velocity (LVOT): 0.97 m/s Mean Velocity (LVOT): 0.59 m/s LVOT Diameter 2.34 cm Left Ventricular Ejection Fraction: 57.59 % Left Atrium LA Volume Index (2D A2C): 26.05 ml/m2 Left Atrium Systolic Dimension: 3.16 cm Mitral Valve MV E to A Ratio: 0.68 Mitral Valve A-Wave Peak Velocity: 0.75 m/s Mitral Valve E-Wave Peak Velocity: 0.51 m/s Right Ventricle RV Internal Diastolic Dimension: 2.89 cm Aorta AO Root Diam: 3.16 cm Ascending Ao Diam: 2.64 cm Aortic Valve AoV Area (Peak Clayton): 3.61 cm2, 3.61 cm2 AoV Area (VTI): 4.06 cm2, 4.06 cm2 Peak Velocity(Antegrade Flow): 1.16 m/s Peak Gradient(Antegrade Flow): 5.34 mm[Hg] Mean Velocity(Antegrade Flow): 0.87 m/s Mean Gradient(Antegrade Flow): 3.28 mm[Hg] Velocity Time Integral: 19.53 cm Tricuspid Valve Peak Velocity (Regurgitant Flow): 2.02 m/s, 2.15 m/s, 2.53 m/s Pulmonic Valve Mean Gradient: 1.13 mm[Hg], 1.03 mm[Hg], 1.42 mm[Hg], 1.65 mm[Hg] Mean Velocity: 0.49 m/s, 0.47 m/s, 0.55 m/s, 0.60 m/s Peak Velocity: 0.75 m/s Peak Gradient: 1.94 mm[Hg], 1.94 mm[Hg], 2.42 mm[Hg], 2.65 mm[Hg] Right Atrium Right Atrium Systolic Pressure: 31.05 ml, 31.05 ml Dictated by: Cece Goldsmith M.D. on 04/24/2025 at 12:44 Approved by: Cece Goldsmith M.D. on 04/24/2025 at 12:47
--- OUTSIDE RECORDS SUMMARY | 2025-04-24 10:15 | XMS_ITS | Clinical Summary ---
Author Organization [facility] Address [address] [place] [address] Care Team Providers Care Textbook Associate Name Role Phone Office Of Lissette Jolly Md Other Primary Car e Provider Allergies No known active allergies Medications MedicationSigDispense QuantityRefillsLast FilledStart DateEnd DateStatus levothyroxine 300 MCG tablet Take 300 mcg by mouth daily.Active pilocarpine 5 MG tablet Indications:History of Sjogren's disease,Hyperpigmentation of skin of cheek, Xerostomia,Dry mouth,Dry eyes,Telangiectasia of face,Hypothyroidism, unspecified type,Hyperglycemia,Basedow's disease,Keratoconjunctivitis sicca,Osteoarthritis of right hand, unspecified osteoarthritis type,Osteoarthritis of left foot, unspecified osteoarthritis type,Lumbar degenerative disc disease1 po qid 30 minutes prior to meals and bed time 120 tablet 11007/10/2021ctive Additional Information Patient not taking.Reported on 01/11/2025 Dulaglutide (Trulicity) 0.75 MG/0.5ML Solution Auto-injector injection Inject 0.5 mL under the skin once a week.Active Insulin glargine 100 UNIT/ML vial Inject 40 Units under the skin daily every morning.Active Empagliflozin (Jardiance) 10 MG tablet Take 1 tablet by mouth daily.Active Nicotine 21 MG/24HR Patch [address] 1 patch on skin every 24 hours.Active rOPINIRole 0.25 MG tablet 1 po 2-3 hours before bed x 1 week then increase to 2 before bed if no SE 60 tablet 5Active Active Problems ProblemNoted DateDiagnosed DateNocturnal leg hnahcotyj80/25/2022isorder of bone and ncuudbjzc58/06/2022History of Sjogren's vjviklp1307/10/2021ry eyes07/10/2021 Keratoconjunctivitis sicca2Dry mouth07/10/20210741Bxayduniqg05/06/2022 Hbymuejfnua98/06/6553Rksrqnbvsinxi30/06/2022Telangiectasia of face07/10/2021 Hyperpigmentation of skin of cheek2Obesity: body mass index of 35.0-39.9007/10/2021Malignant neoplasm of hpdwkz4210/29/2016 Overview (10/29/2016): Overview: freeze and scrap Basedow's blnmgcb6410/29/2016 Overview (10/29/2016): Overview: replace inactive diagnosis Neck pain10/29/2016Shoulder pain10/29/2016Lumbar degenerative disc disease 10/29/2016Vitamin D zzhzckiunh95/27/5741Vqlljwsbxbndw93/27/2017Osteoarthritis of foot, left10/29/2016Right hand pain10/29/2016Left foot pain10/29/2016 Osteoarthritis of right hand10/29/2016TTS (tarsal tunnel syndrome)10/29/2016 Allergic igyjbhue83/11/2015Silent Jezwqkyn89/30/4267Jmodjrb27/30/2015 Resolved Problems ProblemNoted DateDiagnosed DateResolved DateAbnormal immunological finding in serumLong-term current use of high risk medication other than mfktsoslavlzd00Encounter for long-term (current) use of non-steroidal anti-oqbjpubhayyevg03jogren's syndrome Family History Medical HistoryRelationNameCommentsAlzheimer'sMaternal GrandfatherDiabetes Maternal Grandmothertype 2DiabetesMothertype 2HypertensionMotherOther - Specify MotherCOPD; Thyroid DisorderStrokeMotherOther - SpecifySistertwinHeart Murmur RelationNameStatusCommentsMaternal GrandfatherMaternal GrandmotherMotherSister twin Social History Tobacco UseTypesPacks/DayYears UsedDateSmoking Tobacco: NeverSmokeless Tobacco: NeverAlcohol UseStandard Drinks/WeekCommentsYes0 (1 standard drink = 0.6 oz pure alcohol)consumed rarelyCommentsUnknownSex and Gender InformationValue Date RecordedSex Assigned at BirthNot on fileLegal JopGdchoo37/06/2017 6:46 PM ESTGender IdentityFemaleSexual OrientationNot on file Last Filed Vital Signs Vital SignReadingTime TakenCommentsBlood Xudheqhj050/8007 1:18 PM EDT Vmgfq218101/11/2025 1:18 PM EFJPxqabvzdjdc34.7 ??C (98.1 ??F)07/25/2021 11:32 AM ESTRespiratory Uomn265907/25/2021 11:32 AM ESTOxygen Qhequzpjdn98%01/11/2025 1:18 PM EDTInhaled Oxygen Concentration--Gtlzxk93.7 kg (164 lb 11.2 oz)01/11/2025 1:18 PM XFPEvyulv371.3 cm (5' 9 )01/11/2025 1:18 PM EDTBody Mass Index24.32 01/11/2025 1:18 PM EDT Plan of Treatment Health MaintenanceDue DateLast DoneCommentsHEPATITIS C VIRUS LVGSUHKWQ1975 TSH1975HIV SCREENING GTRZAJSASC21/15/1990HEP B VACCINE (1 of 3 - 19+ 3- dose series)1994CERVICAL CANCER SCREENING WMDWGNZYHY28/15/1996LIPID TBWABNEJD63/15/2015COLORECTAL CANCER SCREENING GKWBWGQMGW42/15/2020MAMMOGRAM SCREENING YXYTBCSKYV74/07/202205/01/20211815FPPXPBB31COVID-19 VACCINE (1 - 2024- season)2025INFLUENZA VACCINE (#1)2025 PNEUMOCOCCAL VACCINE SERIES (1 of 1 - PCV)2025ZOSTER (SHINGLES) VACCINE (1 of 2)2025TDAP (ADULT)Zvmgtyicv56/10/2014 Insurance MemberSubscriberPlan / Payer (Effective 2025-Present)Name:ANAYELI HIDALGO Relation to Subscriber:SelfName:Anayeli Hidalgo Payer ID:[id number] (NAIC) Group ID:Not on file Type:Not on file Address: [place] [id number] Care Teams Team MemberRelationshipSpecialtyStart DateEnd Date Office Of Lissette Jolly Md Other [address] [place] [address] PCP - General10/29/16
--- OUTSIDE RECORDS SUMMARY | 2025-04-24 10:15 | XMS_ITS | Clinical Summary ---
Author Organization [employer] tem Address [id number] [address] [place] [address] Care Team Providers Care Population Geneticist Name Role Phone Julieth Rosa MD Primary Care Provider [phone] Allergies No known active allergies Medications MedicationSigDispense QuantityRefillsLast FilledStart DateEnd DateStatus ibuprofen (MOTRIN) 800 mg tablet Take 1 tablet (800 mg total) by mouth every 8 (eight) hours as needed for pain. 21 tablet 07/12/2022ctive acetaminophen (TYLENOL EXTRA STRENGTH) 500 mg tablet Take 1 tablet (500 mg total) by mouth every 6 (six) hours as needed for pain. 30 tablet 07/12/2022ctive blood sugar diagnostic strip 1 strip by other route as needed for high blood sugar. 100 strip ctive blood-glucose meter [facility] [place] to check blood sugar once daily. 1 each 09/01/2023ctive lancets (onetouch ultrasoft) [facility] [place] to [place] blood sugar once daily 100 each ctive JARDIANCE 10 mg tablet tablet 5Active LANTUS SOLOSTAR U-100 INSULIN 100 unit/mL (3 mL) insulin pen 5Active nicotine (NICODERM CQ) 21 mg/[address] 1 patch on the skin.Active TRULICITY 0.75 mg/0.5 mL pen injector Inject 0.5 mL (0.75 mg total) under the skin every 7 days.5Active rOPINIRole (REQUIP) 0.25 mg tablet 1 po 2-3 hours before bed x 1 week then increase to 2 before bed if no SE 5Active Active Problems ProblemNoted DateDiagnosed DateHx of abnormal cervical Pap smear10/13/2023 Nocturnal leg jliltqkdd59/25/2022isorder of bone and joepiaovn57/06/2022History of Sjogren's azrhmay1307/10/20217543Wdujexpeaflga27/06/2022Telangiectasia of face 07/10/20219867Ocrtppjjuby52/06/2022cquired hleaddsvyzsjdy92/28/2021llergic 10/15/2020Graves' tunyilz0910/29/2016 Overview (08/27/2023): replace inactive diagnosis Overview: replace inactive diagnosis Lumbar degenerative disc nquecwm3610/29/2016Neck pain10/29/2016Osteoarthritis of foot, left10/29/2016Osteoarthritis of right hand10/29/2016TTS (tarsal tunnel syndrome)10/29/2016Vitamin D nicpepgpku22/27/2017Allergic eqstoldr29/11/2015 Fntslteb67/30/2015 Resolved Problems ProblemNoted DateDiagnosed DateResolved DateMalignant neoplasm of cervix Overview (08/27/2023): freeze and scrap Overview: freeze and scrap Encounters DateTypeDepartmentCare OslyAbcefkyzura39/26/2025Orders Only [facility] [address] Laureen Patel MA Abnormal TSH (Primary Dx)02/12/2025Orders Only [facility] [place] [address] Laureen Patel MA Elevated TSH (Primary Dx); Low serum onwwsbine10/08/2025Results Follow-Up [facility] [place] [address] Jessica Pete, PAPER TWISTER-DIGITAL FIELD SERVICE TECHNICIAN Progesterone, Estradiol, Prolactin, Additional followed-up results: Orders Only [facility] [address] [place] [address] Laureen Patel MA Postmenopausal kzjlefqe08/29/2025 1:30 PM EDTOffice Visit [facility] [address] [place] [address] Carmen Ragsdale MD Postmenopausal syndrome (Primary Dx)01/30/2025Travelfrom Last 3 Months Immunizations ImmunizationAdministration DatesNext ReaUhji6608/14/2013 Family History Medical HistoryRelationNameCommentsNo Known ProblemsDaughterDiabetesMother HypertensionMotherStrokeMotherNo Known ProblemsSisterNo Known ProblemsSonBreast cancerNeg HxCancerNeg HxColon cancerNeg HxOvarian cancerNeg HxRelationNameStatus CommentsDaughterAliveFatherOtherunknownMotherAliveSisterAliveSonAlive Social History Tobacco UseTypesPacks/DayYears UsedDateSmoking Tobacco: Some BuqvRxffyrzfor398.6 Started: 10/2004Smokeless Tobacco: Never Tobacco Cessation:Ready to Q uit: Yes; Counseling Given: Yes Alcohol UseStandard Drinks/WeekCommentsNot Currently0 (1 standard drink = 0.6 oz pure alcohol)PHQ-2AnswerDate RecordedTotal Xfyjm9894ChildcareAnswerDate JnklzeqrNsfptyrsdEhauvjo80/06/2021mploymentAnswerDate RecordedEmploymentUnknown 10/08/2020Hunger ScreeningAnswerDate RecordedWithin the past 12 months we worried whether our food would run out before we got money to buy more.Never True01/30/2025Within the past 12 months the food we bought just didn't last and we didn't have money to get more.Never True01/30/2025Purpose - LifeAnswerDate RecordedPurpose and direction in sieqInfornn95/06/2021CommentsNoSex and Gender InformationValueDate RecordedSex Assigned at BirthNot on fileLegal Sex Twzlhy9010/08/2020 8:32 AM EDTGender IdentityNot on fileSexual OrientationNot on file Last Filed Vital Signs Vital SignReadingTime TakenCommentsBlood Hcuhaxqf44/54001/30/2025 1:32 PM EDT Saxgg968601/10/2025 6:45 PM ATAToswjzlstro45.4 ??C (97.5 ??F)01/10/2025 5:00 PM EDTRespiratory Jvzw486901/10/2025 6:45 PM EDTOxygen Bbawcjozls81%01/10/2025 6:45 PM EDTInhaled Oxygen Concentration--Xjerqe35.6 kg (173 lb 3.2 oz)01/30/2025 1:32 PM TREElzysu691.7 cm (5' 8 )01/30/2025 1:32 PM EDTBody Mass Index26.33001/30/2025 1:32 PM EDT Plan of Treatment Health MaintenanceDue DateLast DoneCommentsAdult BMI Follow Up Plan1993 Colon Cancer Screening 3 Year Gijbkaiwq45/15/2020DTaP,Tdap and Td Vaccines (2 - Td or Tdap)/04/2014Depression Ggbmlpmkd25Influenza Bcvcbsc8603/05/2025Zoster (Shingles) Vaccine (1 of 2)04/18/20255573Ggtsuezqn67/23/2026 12/25/2024, 11/08/2020dult BMI Wosoksnse00Tobacco Screening Tobacco Zguwihevhf88Pap Smear08/31/2026 08/31/2023, 08/31/2023 Medical Devices Not on file Procedures Procedure NamePriorityDate/TimeAssociated DiagnosisCommentsCBC (NO DIFF)Routine 02/08/2025 Postmenopausal syndrome FOLLICLE STIMULATING QRVGBAKZlcatgi09/07/2025 Postmenopausal syndrome HCG-BETA, YUIQSAznmmff08/07/2025 Postmenopausal syndrome LUTEINIZING VHSHBTDNvcxjsa01/07/2025 Postmenopausal syndrome THYROID PROFILE INCLUDES TSH MI0Sqstlfl27/07/2025 Postmenopausal syndrome SRJFFEKCTIEOUkdnxrl39/07/2025 Postmenopausal syndrome XRDSLBGFNXvieguh21/07/2025 Postmenopausal syndrome DTNQWUYHEEenyhum82/07/2025 Postmenopausal syndrome TUEJJFPGMTELOgmrnhn59/07/2025 Postmenopausal syndrome HIGH RISK HPV W/YKTMQxoqgla46/27/2024 5:10 AM EST Cervical smear, as part of routine gynecological examination MAMM SCREENING BILATERAL W LVLAcqemmu65/07/2021 12:53 PM EDT Encounter for screening mammogram for malignant neoplasm of breast from Last 3 Months or Most Recently Relevant to Health Maintenance Results * (ABNORMAL) Thyroid profile includes TSH FT4 (02/08/2025)ComponentValueRef RangeTest MethodAnalysis TimePerformed AtPathologist SignatureExternal Tsh15.5 (A)0.27 - 4.2MANUALLY TRANSCRIBED RESULTSSpecimen (Source)Anatomical Location / LateralityCollection Method / VolumeCollection TimeReceived TimeBloodVenous blood / Msdmuaa4202/08/2025 Narrative Authorizing ProviderResult TypeResult StatusCoririchelle MARTINEZ BLOOD ORDERABLESFinal ResultPerforming OrganizationAddressCity/State/ZIP CodePhone Number MANUALLY TRANSCRIBED RESULTS * (ABNORMAL) Prolactin (02/08/2025)ComponentValueRef RangeTest MethodAnalysis TimePerformed AtPathologist SignatureProlactin4.73(A)4.79 - 23.3MANUALLY TRANSCRIBED RESULTSSpecimen (Source)Anatomical Location / LateralityCollection Method / VolumeCollection TimeReceived TimeBloodVenous blood / Unknown 02/08/2025 Narrative Authorizing ProviderResult TypeResult StatusCoririchelle MARTINEZ BLOOD ORDERABLESFinal ResultPerforming OrganizationAddressty/State/ZIP CodePhone Number MANUALLY TRANSCRIBED RESULTS * Progesterone (02/08/2025)ComponentValueRef RangeTest MethodAnalysis Time Performed AtPathologist SignatureProgesterone2.57MANUALLY TRANSCRIBED RESULTS Specimen (Source)Anatomical Location / LateralityCollection Method / Volume Collection TimeReceived TimeBloodVenous blood / Rmcgqzg1502/08/2025 Narrative Authorizing ProviderResult TypeResult StatusCoririchelle Ragsdale [facility] BLOOD ORDERABLESFinal ResultPerforming OrganizationAddressty/State/ZIP CodePhone Number MANUALLY TRANSCRIBED RESULTS * Estradiol (02/08/2025)ComponentValueRef RangeTest MethodAnalysis TimePerformed AtPathologist KhrgcwpagStarrzgyj44MTFNSFMQ TRANSCRIBED RESULTSSpecimen (Source)Anatomical Location / LateralityCollection Method / VolumeCollection TimeReceived TimeBloodVenous blood / Qbbngtc0502/08/2025 Narrative Authorizing ProviderResult TypeResult StatusCooliver MARTINEZ BLOOD ORDERABLESFinal ResultPerforming OrganizationAddressty/State/ZIP CodePhone Number MANUALLY TRANSCRIBED RESULTS * (ABNORMAL) CBC without diff (02/08/2025)ComponentValueRef RangeTest Method Analysis TimePerformed AtPathologist SignatureExternal Hematocrit Hct44.936.3 - 47.1MANUALLY TRANSCRIBED RESULTSExternal Sailglbgrc80.911.9 - 15.1MANUALLY TRANSCRIBED RESULTSExternal Mpv9.78.1 - 13.5MANUALLY TRANSCRIBED RESULTS External Platelet Nfses141352 - 453MANUALLY TRANSCRIBED RESULTSExternal Rbc Count5.13(A)3.95 - 5.11MANUALLY TRANSCRIBED RESULTSExternal Rdw13.311.8 - 14.4 MANUALLY TRANSCRIBED RESULTSExternal Wbc Count5.93.5 - 11.3MANUALLY TRANSCRIBED RESULTSExternal Mcv87.582.6 - 102.9MANUALLY TRANSCRIBED RESULTS External CSP2836.2 - 33.5MANUALLY TRANSCRIBED RESULTSExternal Mchc33.228.4 - 34.8MANUALLY TRANSCRIBED RESULTSSpecimen (Source)Anatomical Location / LateralityCollection Method / VolumeCollection TimeReceived TimeBloodVenous blood / Xmqisvq6702/08/2025 Narrative Authorizing ProviderResult TypeResult StatusCoririchelle Ragsdale [facility] BLOOD ORDERABLESFinal ResultPerforming OrganizationAddressty/State/ZIP CodePhone Number MANUALLY TRANSCRIBED RESULTS * HCG, Quantitative, (02/08/2025)ComponentValueRef RangeTest Method Analysis TimePerformed AtPathologist SignatureHcg-beta, serum0.20 - 7MANUALLY TRANSCRIBED RESULTSSpecimen (Source)Anatomical Location / LateralityCollection Method / VolumeCollection TimeReceived TimeBloodVenous blood / Unknown 02/08/2025 Narrative Authorizing ProviderResult TypeResult StatusCoririchelle Ragsdale [facility] BLOOD ORDERABLESFinal ResultPerforming OrganizationAddressty/State/ZIP CodePhone Number MANUALLY TRANSCRIBED RESULTS * Testosterone (02/08/2025)ComponentValueRef RangeTest MethodAnalysis Time Performed AtPathologist GjrlspgajGsjrndfycezw980 - 48MANUALLY TRANSCRIBED RESULTSSpecimen (Source)Anatomical Location / LateralityCollection Method / VolumeCollection TimeReceived TimeBloodVenous blood / Bmgdywo6702/08/2025 Narrative Authorizing ProviderResult TypeResult StatusCoririchelle Ragsdale [facility] BLOOD ORDERABLESFinal ResultPerforming OrganizationAddBucktail Medical Centerty/State/ZIP CodePhone Number MANUALLY TRANSCRIBED RESULTS * Luteinizing hormone (02/08/2025)ComponentValueRef RangeTest MethodAnalysis TimePerformed AtPathologist SignatureLuteinizing hormone2.8MANUALLY TRANSCRIBED RESULTSSpecimen (Source)Anatomical Location / LateralityCollection Method / VolumeCollection TimeReceived TimeBloodVenous blood / Unknown 02/08/2025 Narrative Authorizing ProviderResult TypeResult StatusCoririchelle Ragsdale [facility] BLOOD ORDERABLESFinal ResultPerforming OrganizationAddBucktail Medical Centerty/State/ZIP CodePhone Number MANUALLY TRANSCRIBED RESULTS * Follicle stimulating hormone (02/08/2025)ComponentValueRef RangeTest Method Analysis TimePerformed AtPathologist SignatureFollicle stim hormone4.8MANUALLY TRANSCRIBED RESULTSSpecimen (Source)Anatomical Location / LateralityCollection Method / VolumeCollection TimeReceived TimeBloodVenous blood / Unknown 02/08/2025 Narrative Authorizing ProviderResult TypeResult StatusCoririchelle Ragsdale [facility] BLOOD ORDERABLESFinal ResultPerforming OrganizationAddressty/State/ZIP CodePhone Number MANUALLY TRANSCRIBED RESULTS * High risk HPV w/gabbi (08/31/2023 5:10 AM EST)ComponentValueRef RangeTest MethodAnalysis TimePerformed AtPathologist SignatureHpv specimen typeThinPrep 09/01/2023 5:10 AM [facility] 16NegativeNegative^Negative 09/01/2023 2:49 PM [facility] 18Negative Negative^Nssouffe66/28/2024 2:49 PM [facility] LABOther high risk hpvNegativeNegative^Inlifbvy47/28/2024 2:49 PM [facility] LABComment: HPV types 31,33,35,39,45,52,56,58,59,66 and 68 DNA were undetectable. Specimen (Source)Anatomical Location / LateralityCollection Method / Volume Collection TimeReceived IxsmZBTXF46/27/2024 5:10 AM EST08/31/2023 5:16 AM EST Narrative Authorizing ProviderResult TypeResult StatusTanjorge Perez [facility] BLOOD ORDERABLESFinal ResultPerforming OrganizationAddressCity/State/ZIP CodePhone Number [facility] [address] [facility] [place] [address] [facility] [address] [place] [address], [address] [place] [address] * Mammography screening bilateral with CAD (11/08/2020 12:53 PM EDT)Anatomical RegionLateralityModalityBreastBilateralMammographySpecimen (Source)Anatomical Location / LateralityCollection Method / VolumeCollection TimeReceived Time 11/08/2020 1:04 PM EDT Narrative 11/08/2020 1:05 PM EDT MAMM SCREENING BILATERAL W CAD WITH TOMOSYNTHESIS HISTORY: Screening. COMPARISON: None FINDINGS: There are scattered areas of fibroglandular density. ??Negative for malignancy. Computer-aided detection was used in the interpretation of this examination. IMPRESSION: BIRADS 1 - Negative. ??Normal interval follow-up in 12 months. OVERALL ASSESSMENT- NEGATIVE. A letter of notification will be sent to the patient regarding the results. Finalized by Geovany Parrish MD on 11/08/2020 1:05 PM 1 b MAMM 1 YR Procedure Note Geovany Parrish MD - 11/08/2020 MAMM SCREENING BILATERAL W CAD WITH TOMOSYNTHESIS HISTORY: Screening. COMPARISON: None FINDINGS: There are scattered areas of fibroglandular density. Negativefor malignancy. Computer-aided detection was used in the interpretation of thisexamination. IMPRESSION: BIRADS 1 - Negative. Normal interval follow-up in 12 months. OVERALL ASSESSMENT- NEGATIVE. A letter of notification will be sent to the patient regarding theresults. Finalized by Geovany Parrish MD on 11/08/2020 1:05 PM 1 b MAMM 1 YR Authorizing ProviderResult TypeResult StatusValeririchelle Del Rio PAPER TWISTER-CNPIMG MAMMOGRAPHY ORDERABLESFinal Result from Last 3 Months or Most Recently Relevant to Health Maintenance Insurance Care Teams Team MemberRelationshipSpecialtyStart DateEnd Date Julieth Rosa MD [address] [place], [place] [id number] PCP - Generalmily Medicine01/10/25
--- OUTSIDE RECORDS SUMMARY | 2025-04-24 10:15 | XMS_ITS | Encounter Summary ---
Author Organization [facility] Address [facility] [id number] [address] [place] [address] Care Team Providers Care Belly Roller Name Role Phone Julieth Rosa MD Primary Care Provider [phone] Encounter Details DateTypeDepartmentCare Team (Latest Contact Info)Srwnmhydnhj89/08/2025Results Follow-Up [facility] [address] [facility] [place] [address] Jessica Pete, [address] [employer] [employer] [address] [place], [place] [id number] Progesterone, Estradiol, Prolactin, Additional followed-up results: 6 Social History Tobacco UseTypesPacks/DayYears UsedDateSmoking Tobacco: Some RylbBnmexjywom219.6 Started: 10/2004Smokeless Tobacco: NeverAlcohol UseStandard Drinks/WeekComments Not Currently0 (1 standard drink = 0.6 oz pure alcohol)PHQ-2AnswerDate Recorded Total Jrgbn9474ChildcareAnswerDate JdjpwzajTytcysgkrIsrnlxm94/06/2021 EmploymentAnswerDate AhknaamgAybsvidpygSrknxaw90/06/2021Hunger ScreeningAnswer Date RecordedWithin the past 12 months we worried whether our food would run out before we got money to buy more.Never True01/30/2025Within the past 12 months the food we bought just didn't last and we didn't have money to get more.Never True01/30/2025Purpose - LifeAnswerDate RecordedPurpose and direction in life Qisfqtw40/06/2021CommentsNoSex and Gender InformationValueDate Recorded Sex Assigned at BirthNot on fileLegal WmwGytomk03/06/2021 8:32 AM EDTGender IdentityNot on fileSexual OrientationNot on filedocumented as of this encounter Plan of Treatment Not on file documented as of this encounter Visit Diagnoses Not on filedocumented in this encounter Additional Health Concerns AssessmentNoted TimePHQ-9 Depression Total Score: 9:28 AM EDTA Body Mass Index follow-up plan has been documented for the sbhydmq0110/31/2020 6:54 PM EDTdocumented as of this encounter Care Teams Team MemberRelationshipSpecialtyStart DateEnd Date Julieth Rosa MD [address] [place] [address] PCP - GeneralFamily Medicine01/10/25documented as of this encounter
--- OUTSIDE RECORDS SUMMARY | 2025-04-24 10:15 | XMS_ITS | Clinical Summary ---
Author Organization [facility] Address [address] [place] [address] Care Team Providers Care Alodize Machine Operator Name Role Phone Unavailable Primary Care Provider Unavailabl e Allergies No known active allergies Medications MedicationSigDispense QuantityRefillsLast FilledStart DateEnd DateStatus Dulaglutide (Trulicity) 0.75 MG/0.5ML solution auto-injector Inject under the skinActive empagliflozin (Jardiance) 10 MG Take by mouthActive Insulin Glulisine (APIDRA SOLOSTAR SC) Inject 30 Units under the skin DailyActive insulin aspart (NovoLOG) 100 UNIT/ML pen cartridge Inject under the skin in the morning and at noon and in the evening. Inject before meals.Active levothyroxine (Synthroid, Levoxyl) 75 MCG tablet Indications:Postablative hypothyroidismTake 1 tablet (75 mcg) by mouth Daily 90 tablet ctive Encounters DateTypeDepartmentCare HbviLvsrbhacknr09/13/2025 2:40 PM EDTOffice Visit [facility] [address] [place] [address] Meghna Christianson MD Postablative hypothyroidism (Primary Dx); Thyroid afsqzu1604/16/2025amboo flowsheet [facility] [address] [place] [address] Meghna Christianson MD from Last 3 Months Social History Tobacco UseTypesPacks/DayYears UsedDateSmoking Tobacco: Never Assessed CommentsUnknownSex and Gender InformationValueDate RecordedSex Assigned at Not on fileLegal XjjYzxvgr73/06/2024 9:57 AM ESTGender IdentityNot on fileSexual OrientationNot on file Last Filed Vital Signs Vital SignReadingTime TakenCommentsBlood Pressure--Kqyrc6780/ 1:44 PM EDT Temperature--Respiratory Uvcr0689 1:44 PM EDTOxygen Lqfpzhgmlx48% 04/16/2025 1:44 PM EDTInhaled Oxygen Concentration--Eminxg98.9 kg (207 lb) 04/16/2025 1:44 PM YHVKhatap827.2 cm (5' 7 )04/16/2025 1:44 PM EDTBody Mass Index32.421 1:44 PM EDT Plan of Treatment DateTypeDepartmentCare Team (Latest Contact Info)Ceuoupqzceh16/13/2026 2:30 PM ESTOffice Visit [facility] [address] [place] [address] Meghna Christianson MD [address] [place] [address] Insurance
--- OUTSIDE RECORDS SUMMARY | 2025-04-24 10:15 | XMS_ITS | Encounter Summary ---
Author Organization [facility] Address [address] [place] [address] Care Team Providers Care Blood Splatter Analyst Name Role Phone Unavailable Primary Care Provider Unavailabl e Encounter Details DateTypeDepartmentCare Team (Latest Contact Info)Yvxmokdbksl79/13/2025amboo flowsheet [facility] [address] [place] [address] Meghna Christianson MD [address] [place] [address] Social History Tobacco UseTypesPacks/DayYears UsedDateSmoking Tobacco: Never Assessed CommentsUnknownSex and Gender InformationValueDate RecordedSex Assigned at Not on fileLegal TldAmojri25/06/2024 9:57 AM ESTGender IdentityNot on fileSexual OrientationNot on filedocumented as of this encounter Plan of Treatment DateTypeDepartforest health medical centerCare Team (Latest Contact Info)Brjjvrfdzuf39/13/2026 2:30 PM ESTOffice Visit [facility] [address] [place] [id number] Meghna Christianson MD [address] [place] [address] documented as of this encounter Visit Diagnoses Not on filedocumented in this encounter
--- OUTSIDE RECORDS SUMMARY | 2025-04-24 10:21 | XMS_ITS | CCD ---
Author Organization [facility] Care Team Providers Care Air Press Operator Name Role Phone [facility] Other Primary Car e Provider Lenora Whitehead Unavailable [facility] [place] TRAMMELL Primary Care Unavailable MARKER ., [...] NORMA, GOMEZ L Primary Care Unavailable Norma MERCHANT PATROLLER-SENIOR RISK ANALYST, Gomez L Primary Care Provider Norma MERCHANT PATROLLER - SENIOR RISK ANALYST, Gomez L Primary Care Provider Unavailable Primary Care Provider Unavailabl e Shelley Clancy MD Primary Care Provider [facility] [...] re Unavailable GABE JOLLY Referring Unavailable Shelley Clancy MD Primary Care Provider JESSICA PETE Referring Unavailable NORMA, GOMEZ L Primary Care Unavailable ASHLYN, SHELLEY Referring Unavailable NORMA, GOMEZ L Primary Care Unavailable KROTZER, JESSICA Referring Unavailable ASHLYN, SHELLEY Primary Care Unavailable KROTZER, JESSICA Referring Unavailable ASHLYN, SHELLEY Primary Care Unavailable NORMA, GOMEZ L Primary Care Unavailable KARIME BYRD Referring Unavail able NORMA, GOMEZ L Primary Care Unavailable KROTZER, JESSICA Referring Unavailable NORMA, GOMEZ L Primary Care Unavailable ASHLNY, SHELLEY Referring Unavailable NORMA, GOMEZ L Primary Care Unavailable ASHLYN, SHELLEY Referring Unavailable NORMA, GOMEZ L Primary Care Unavailable ASHLYN, SHELLEY Primary Care Unavailable TRICE ARAIZA Referring Unavailab ANN Riddle Admitting Unavailable ANN HERRON Attending Unavailable ASHLYN, SHELLEY Primary Care Unavailable BECKY AVILA Admitting Unavailable BECKY AVILA Attending Unavailable DAFNE ARRIETA Consulting Unavailable NORMA, GOMEZ L Primary Care Unavailable Unavailable Primary Care Provider UnavailMEGHNA Galo Attending Unavailable SHELLEY, ASHLYN Referring Unavailable Medications Current Medications MedicationDrug Class(es)DatesSig (Normalized)Sig (Original)Acetaminophen (20 sources)Start: 38-18-5757modjqecchtljo (TYLENOL) tablet 650 mgStart: 78-23-8432wkqecziajchsd (TYLENOL) tablet 650 mgStart: 30-38-1857qwnk 1 tablet by mouth every six hours as needed for painacetaminophen (TYLENOL EXTRA STRENGTH) 500 mg tablet Take 1 tablet (500 mg total) by mouth every 6 (six) hours as needed for pain. 30 tablet 07/12/2022 Activeblood-glucose meter misc (20 sources)Start: 20-96-8829qhisn-glucose meter misc Use to check blood sugar once daily. 1 each 09/01/2023 ActiveStart: 35-27-2557fjgja-glucose meter misc Use to check blood sugar once daily. 1 each 0 09/01/2023 Activeboric acid 600 mg suppository (6 sources)Start: 01-12-2025 End: 55-87-3258xeivh acid 600 mg suppository Indications: Kiesha glabrata infection Insert 1 suppository into thevagina nightly for 14 days. 14 suppository 01/12/2025 01/26/2025 ActiveStart: 12-12-2024 End: 04-02-8970dhdpa acid 600 mg suppository Indications: Kiesha glabrata infection , Vaginal yeast infection Insert 1 suppository into the vagina nightly for 14 days. 14 suppository 12/12/2024 12/26/2024 ActiveStart: 12-07-2024 End: 83-91-1175tccyn acid 600 mg suppository Indications: Kiesha glabrata infection , Vaginal yeast infection Insert 1 suppository into the vagina nightly for 14 days. 14 suppository 12/07/2024 12/12/2024 Discontinued (Reorder)Start: 12-07-2024 End: 22-29-1813diddg acid 600 mg suppository Indications: Kiesha glabrata infection , Vaginal yeast infection Insert 1 suppository into the vagina nightly for 14 days. 14 suppository 12/07/2024 12/21/2024 Active0.5 ml dulaglutide 1.5 mg/ml auto-injector (12 sources)GLP-1 Receptor AgonistStart: 74-03-1590fcbnfv 0.75 mg by subcutaneous injection every week0.75 mg, SubCUTAneous, WEEKLY, First dose (after last modification) on Wed12/24/24 at 0900, Until Discontinued, On Sundays Patient using own home medicationsStart: 65-00-9777KRVMCVCEW 0.75 MG/0.5ML SOAJ SC injection Inject 0.5 mLs into the skin once a week Sundays12/08/2024 Active Start: 27-08-5013SFJWMJOHA 0.75 mg/0.5 mL pen injector Inject 0.5 mL (0.75 mg total) under the skin every 7 days. 12/08/2024 ActiveDULoxetine 60 mg delayed release oral capsule (1 source)Serotonin and Norepinephrine Reuptake InhibitorStart: 84-76-8961wdfo 1 capsule by mouth once dailyDULoxetine (CYMBALTA) 60 MG extended release capsule Take 1 capsule by mouth daily 11/14/2024 Activeempagliflozin 10 mg oral tablet (20 sources)Sodium-Glucose Cotransporter 2 InhibitorStart: 22-68-6595QUOKMFWLF 10 mg tablet tablet 11/14/2024 Active0.4 ml enoxaparin sodium 100 mg/ml prefilled syringe (2 sources)Low Molecular Weight HeparinStart: 63-59-3599Jwqqa: 99-92-6245kqzthl 40 mg by subcutaneous injection once daily40 mg, SubCUTAneous, DAILY, First dose on Wed10/17/24 at 0900, Until Discontinued, Indication of Use: Prophylaxis-DVT/PEfurosemide 40 mg oral tablet (7 sources)Loop DiureticStart: 79-79-0750Kwerh: 10-18-2024 End: 10-40-2240bovh 1 tablet by mouth once dailyfurosemide (LASIX) 40 MG tablet Take 1 tablet by mouth daily 30 tablet 10/19/2024 ActiveStart: 36-37-592134 mg, IntraVENous, ONCE, 1 dose, On Wed10/17/24 at 0900glipiZIDE 5 mg oral tablet (6 sources)SulfonylureaStart: 65-77-2872Psnao: 10-18-2024 End: 19-77-3774ucpa 0.5 tablet by mouth once daily in the morningglipiZIDE (GLUCOTROL) 5 MG tablet Take 0.5 tablets by mouth every morning 15 tablet 10/18/2024 ActiveStart: 66-90-7525oljk 2.5 mg by mouth once daily in the morning 2.5 mg, Oral, EVERY MORNING, First dose on Wed10/17/24 at 0900, Until Discontinuedibuprofen 800 mg oral tablet (20 sources)Nonsteroidal Anti-inflammatory DrugStart: 59-43-6217fxvp 1 tablet by mouth every eight hours as needed for painibuprofen (MOTRIN) 800 mg tablet Take 1 tablet (800 mg total) by mouth every 8 (eight) hours as needed for pain. 21 tablet 07/12/2022 Active3 ml insulin aspart, human 100 unt/ml cartridge (2 sources)Insulin Analoginsulin aspart (NovoLOG) 100 UNIT/ML pen cartridge Inject under the skin in the morning and at noonand in the evening. Inject before meals. Activeinsulin glargine 100 unt/ml injectable solution (20 sources)Insulin AnalogStart: 11-59-0310jbhdhmd glargine (LANTUS) 100 UNIT/ML injection vial Inject 40 Units into the skin daily States 40-50 10 mL 12/21/2024 ActiveStart: 73-28-2306uybrxv 40 [IU] by subcutaneous injection once daily40 Units, SubCUTAneous, DAILY, First dose on Susy 12/21/24 at 0145, Until DiscontinuedStart: 04-78-0877UVNTMF SOLOSTAR U-100 INSULIN 100 unit/mL (3 mL) insulin pen 11/14/2024 ActiveStart: 10-18-2024 End: 32-32-5307jaazaxs glargine (LANTUS) 100 UNIT/ML injection vial Inject 25 Units into the skin 2 times daily 10mL 10/18/2024 12/21/2024 DiscontinuedStart: 70-59-7671vcrlhq 25 [IU] by subcutaneous injection twice daily25 Units, SubCUTAneous, 2 TIMES DAILY, First dose on 10/16/24 at 2315, Until Discontinuedinsulin glulisine, human (2 sources)Insulin Analoginject 30 [IU] by subcutaneous injection once daily Insulin Glulisine (APIDRA SOLOSTAR SC) Inject 30 Units under the skin Daily ActiveInsulin Syringes, Disposable, U-100 1 ML MISC (11 sources)Start: 26-77-3179Avnovyb Syringes, Disposable, U-100 1 ML MISC 1 each by Does not apply route daily 100 each 10/18/2024 Activeinsulin, regular, human 100 unt/ml injectable solution (2 sources)InsulinStart: 10-18-2024 End: 41-41-8913unavphg regular (HUMULIN R;NOVOLIN R) 100 UNIT/ML injection Inject 25 Units into the skin 2 times daily (before meals) 10 mL 10/18/2024 11/17/2024 Activelevothyroxine sodium 0.075 mg oral tablet (20 sources)l-ThyroxineStart: 04-16-2025 End: 54-97-0994vihe 1 tablet by mouth once dailylevothyroxine (Synthroid, Levoxyl) 75 MCG tablet Indications: Postablative hypothyroidism Take 1 tablet (75 mcg) by mouth Daily 90 tablet 1 04/16/2025 10/13/2025 ActiveStart: 10-19-2023 End: 75-25-2911odqr 1 tablet by mouth in the morninglevothyroxine (SYNTHROID, LEVOTHROID) 75 MCG tablet Take 1 tablet (75 mcg total) by mouth in the morning. 90 tablet 1 10/19/2023 01/29/2025 DiscontinuedStart: 09-01-2023 End: 13-48-6041nbin 1 tablet by mouth in the morninglevothyroxine (SYNTHROID, LEVOTHROID) 50 MCG tablet Take 1 tablet (50 mcg total) by mouth in the morning. 30 tablet 1 09/01/2023 10/19/2023 Discontinued (Therapy completed)Start: 10-30-2020 End: 04-87-2545chvs 0.5 tablet by mouth once dailylevothyroxine (SYNTHROID, LEVOTHROID) 100 MCG tablet Indications: Graves disease , Acquired hypothyroidism Take 0.5 tablets (50 mcg total) by mouth daily. 30 tablet 2 10/30/2020 09/01/2023 Discontinued (Therapy completed)Start: 01-18-2015 End: 20-28-2231oalggmkvfhrlw (SYNTHROID) 150 MCG tablet 3 01/18/2015 10/18/2024 Discontinued (Stop Taking at Discharge)take 1 tablet by mouth once daily levothyroxine 300 MCG tablet Take 300 mcg by mouth daily. ActivemetroNIDAZOLE 250 mg oral tablet (9 sources)Nitroimidazole AntimicrobialStart: 10-17-2024 End: 73-98-5305715 mg, Oral, 2 TIMES DAILY, 6 doses, First dose on Wed10/17/24 at 0945, Last dose on Wed10/19/24 at 1400, Antimicrobial Indications: Other, Other Abx Indication: trich End: 46-40-5266yokfuXDZVKGAS (FLAGYL) 250 MG tablet Take 1 tablet by mouth 2 times daily at 0800 and 1400 3 days left to finish 12/21/2024 Discontinued (Stop Taking at Discharge)24 hr nicotine 0.875 mg/hr transdermal system (20 sources)Cholinergic Nicotinic AgonistStart: 06-65-8918lzrdu 1 dose transdermal route every twenty-four hours at bedtime1 patch, TransDERmal, Administer over 24 Hours, EVERY 24 HOURS, First dose on Wed12/21/24 at 0145, A pply new patch to nonhairy, clean, dry skin on the upper body or upper outer arm. Rotate patch sites. Notify pharmacy if patient or provider prefers patch to be removed at bedtime and replaced in themorning. Hazardous Medication -- Refer to facility policy for handling and disposal.Start: 78-48-8770xwcuw 1 dose transdermal route once daily at bedtime1 patch, TransDERmal, Administer over 24 Hours, DAILY, First dose on Wed10/17/24 at 1700, Apply newpatch to nonhairy, clean, dry skin on the upper body or upper outer arm. Rotate patch sites. Notify pharmacy if patient or provider prefers patch to be removed at bedtime and replaced in the morning.Hazardous Medication -- Refer to facility policy for handling and disposal.apply 1 dose transdermal route every hournicotine (NICODERM CQ) 21 mg/[address] 1 patch on the skin. Activeondansetron (ZOFRAN- ODT) disintegrating tablet 4 mg (2 sources)Start: 27-77-4291ipcdtpgctoj (ZOFRAN-ODT) disintegrating tablet 4 mg Start: 77-70-8028utsyaskxzhg (ZOFRAN-ODT) disintegrating tablet 4 mgpermethrin 50 mg/ml topical cream (1 source)PyrethroidStart: 50-99-9558Qlguoskfjw 5 % 1 application Externally Two times a Week Perform the treatment as directed, repeat in 3 days. Apr, Activepilocarpine hydrochloride 5 mg oral tablet (4 sources)Cholinergic Receptor AgonistStart: 56-02-3196pgkq 1 tablet by mouth four times daily at mealtimepilocarpine 5 MG tablet Indications: History of Sjogren's disease , Hyperpigmentation of skin of cheek , Xerostomia , Dry mouth , Dry eyes , Telangiectasia of face , Hypothyroidism, unspecified type , Hyperglycemia , Basedow's disease , Keratoconjunctivitis sicca , Osteoarthritis of right hand, unspecified osteoarthritis type , Osteoarthritis of left foot, unspecified osteoarthritis type , Lumbardegenerative disc disease 1 po qid 30 minutes prior to meals and bed time 120 tablet 11 07/10/2021 ActiveStart: 11-12-2016 End: 37-21-3102clxa 1 mg by mouth once dailypilocarpine 5 MG Tab Indications: Sjogren's syndrome , Vitamin D deficiency , TTS (tarsal tunnel syndrome), unspecified laterality , Lumbar degenerative disc disease , Osteoarthritis of left foot, unspecified osteoarthritis type , Osteoarthritis of right hand, unspecified osteoarthritis type , Encounter for long-term (current) use of non- steroidal anti-inflammatories 1 po qid 30 minutes before meals and bedtime 360 tablet 3 11/12/2016 07/10/2021 Discontinuedpolyethylene glycol 3350 73911 mg powder for oral solution (2 sources)Osmotic LaxativeStart: 48-35-2308Tcbwd: 74-66-5409Solejhdzf Chloride (5 sources)Start: 42-31-5416aeahewnuc chloride (KLOR-CON M) extended release tablet 40 mEqStart: 10-18-2024 End: 81-71-5544ddsb 1 tablet by mouth once daily at breakfastpotassium chloride (KLOR-CON M) 20 MEQ extended release tablet Take 1 tablet by mouth daily (with breakfast) 30 tablet 10/19/2024 11/18/2024 ActiveStart: 68-19-8802lycfkyqvg chloride (KLOR-CON M) extended release tablet 40 mEqrOPINIRole 0.25 mg oral tablet (7 sources)Nonergot Dopamine AgonistStart: 07-25-2021 End: 79-64-9126sITKYGPghw (REQUIP) 0.25 mg tablet 1 po 2-3 hours before bed x 1 week then increase to 2 before bedif no SE 01/11/2025 Active Completed/Discontinued Medications MedicationDrug Class(es)DatesSig (Normalized)Sig (Original)cetirizine hydrochloride 10 mg oral tablet (1 source)Histamine-1 Receptor AntagonistStart: 05-11-2014 End: 93-01-8488oonp 1 tablet by mouth once dailycetirizine (ZYRTEC) 10 MG tablet Indications: Allergic rhinitis Take 1 tablet by mouth daily. 30 tablet 0 05/11/2014 10/17/2024 Discontinued (LIST CLEANUP)esomeprazole 20 mg / naproxen 500 mg delayed release oral tablet (1 source)Proton Pump Inhibitor, Nonsteroidal Anti-inflammatory DrugStart: 10-29-2016 End: 46-11-5081fibx 1 tablet by mouth twice daily as neededNaproxen-Esomeprazole (VIMOVO) 500-[address] Indications: Sjogren's [...] pain 1 po bid PRN 60 tablet 10/29/2016 Discontinuedfamotidine 20 mg oral tablet (2 sources)Histamine-2 Receptor AntagonistStart: 84-70-8538gchk 20 mg by mouth twice daily20 mg, Oral, 2 TIMES DAILY, First dose on Wed12/21/24 at 0145, Until DiscontinuedStart: 90-23-5875heqq 20 mg by mouth twice daily20 mg, Oral, 2 TIMES DAILY, First dose on Wed10/16/24 at 2315, Until Discontinuedfluticasone propionate 0.05 mg/actuat metered dose nasal spray (1 source)CorticosteroidStart: 05-11-2014 End: 57-38-1639nygnymfyhlc (FLONASE) 50 MCG/ACT nasal spray Indications: Allergic rhinitis 2 sprays by Nasal routedaily. 1 Bottle 0 05/11/2014 10/17/2024 Discontinued (LIST CLEANUP)insulin lispro 100 unt/ml injectable solution (2 sources)Insulin AnalogStart: 12-20-2024 End: 27-52-2969grrqjv 1 dose by subcutaneous injection once20 Units, SubCUTAneous, ONCE, 1 dose, On Wed12/20/24 at 2115Start: -8 Units, SubCUTAneous, 4 TIMES DAILY BEFORE MEALS & NIGHTLY, First dose on Wed10/16/24 at 2315, Until Discontinued, Medium Dose Corrective Algorithm Glucose: Dose: 70-179 No Insulin 180-2492 Units 250-299 4 Units 300-349 6 Units Over 349 8 Units and notify physician Administer as soon aspossible within 60 minutes of last blood glucose checkiopamidol (ISOVUE-370) 76 % injection 75 mL (2 sources)Start: 12-20-2024 End: 37-14-9860hjth 1 dose intravenously once75 mL, IntraVENous, IMG ONCE PRN, 1 dose, Starting on Wed12/20/24 at 1933, Until Wed12/20/24 at 2040, OtherStart: 10-17-2024 End: 52-30-9873demq 1 dose intravenously once75 mL, IntraVENous, IMG ONCE PRN, 1 dose, Starting on Wed10/17/24 at 0935, Until Wed10/17/24 at 0952, Other loratadine 10 mg oral capsule (1 source) End: 55-22-2503whla 1 capsule by mouth once dailyLoratadine (CLARITIN) 10 MG CAPS Take 1 capsule by mouth daily 10/17/2024 Discontinued (LIST CLEANUP) meclizine hydrochloride 12.5 mg oral tablet (1 source)AntiemeticStart: 03-14-2014 End: 14-02-7346rrbn 1 tablet by mouth twice daily as needed for dizziness meclizine (ANTIVERT) 12.5 MG tablet Indications: BPPV (benign paroxysmal positional vertigo), unspecified laterality Take one (1) tablet by mouth twice a day as needed for dizziness 20 tablet 0 03/14/2014 10/17/2024 Discontinued (LIST CLEANUP)meloxicam 15 mg oral tablet (1 source)Nonsteroidal Anti-inflammatory DrugStart: 08-14-2013 End: 40-11-3508edrx 1 tablet by mouth once dailymeloxicam (MOBIC) 15 MG tablet Take 1 tablet by mouth daily. 30 tablet 3 08/14/2013 10/17/2024 Discontinued (LIST CLEANUP)metFORMIN hydrochloride 500 mg oral tablet (20 sources)BiguanideStart: 10-13-2023 End: 14-17-0578mnwp 1 tablet by mouth in the morning, then take 1 tablet by mouth at mealtimemetFORMIN (GLUCOPHAGE) 500 mg tablet Take 1 tablet (500 mg total) by mouth in the morning and 1 tablet (500 mg total) in the evening. Take with meals. 180 tablet 1 10/13/2023 01/30/2025 Discontinuedmethocarbamol 500 mg oral tablet (1 source)Muscle RelaxantStart: 08-14-2013 End: 79-61-3335vtur 1 tablet by mouth three times daily as neededmethocarbamol (ROBAXIN) 500 MG tablet Take 1 tablet by mouth 3 times daily as needed. 40 tablet 3 08/14/2013 10/17/2024 Discontinued (LIST CLEANUP)methylPREDNISolone 4 mg oral tablet (1 source)CorticosteroidStart: 04-07-2017 End: 49-89-8497gwhbelXTSWWPQtjoxx 4 MG Tab Medrol dos pack- as directed 21 tablet 0 04/07/2017 07/10/2021 Discontinuednaratriptan 2.5 mg oral tablet (1 source)Serotonin-1b and Serotonin-1d Receptor AgonistStart: 04-07-2017 End: 93-01-2836muqssmwvigp (AMERGE) 2.5 MG Tab 1 po prn headache max 5mg/day; may repeat in 4 hr x1 8 tablet 1 04/07/2017 07/10/2021 Discontinuedondansetron 4 mg disintegrating oral tablet (1 source)Serotonin-3 Receptor AntagonistStart: 07-12-2022 End: 35-00-6914oclr 1 tablet by mouth every eight hours as needed for nausea ondansetron ODT (ZOFRAN ODT) 4 mg disintegrating tablet Dissolve 1 tablet (4 mg total) on tongue every 8 (eight) hours as needed for nausea for up to 10 doses. 10 tablet 0 07/12/2022 08/27/2023 Discontinued (Therapy completed)promethazine hydrochloride 25 mg oral tablet (1 source)PhenothiazineStart: 04-07-2017 End: 42-49-3869xxup 1 tablet by mouth every eight hours as needed for nausea promethazine 25 MG Tab tablet 1 po q 8 hours prn nausea 10 tablet 1 04/07/2017 07/10/2021 Sjjkurgqeqrt18 ml sodium chloride 9 mg/ml injection (10 sources)Start: 33-51-7722Tgfor: 12-20-2024 End: 78-10-6277BybnpXDHntv, at 100 mL/hr, CONTINUOUS, Starting on Wed12/21/24 at 0145, For 24 hours, Complete lastbag that is running at 24 hours and then saline lock IVStart: 10-17-2024 End: 56-93-5355HsxnsJPPelu, at 50 mL/hr, CONTINUOUS, Starting on Wed10/17/24 at 0200Start: 04-80-0715Jvtxl: 02-47-451600 mL, IntraVENous, EVERY 12 HOURS SCHEDULED (2 times per day), First dose on Wed10/16/24 at 2315, Until DiscontinuedStart: 24-04-6571ubvczhrbkvn 250 mg oral tablet (16 sources)Allylamine AntifungalStart: 10-08-2023 End: 70-28-1646libkbseqdzy (LamISIL) 250 mg tablet 10/08/2023 01/29/2025 Discontinued Problems Active Problems Problem ClassificationProblemDateDocumented DateEpisodic/ChronicAbdominal pain (2 sources)Pain in pelvis; 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: [Pelvic and perineal pain]Onset: 785388-78-0708AxvaghslFbkjorh disorders (1 source)Feeling irritable; 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: [Irritability and anger]12-20-2024 EpisodicCancer; other and unspecified primary (3 sources)History of gynecological disorder; 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: [Personal history of other benign neoplasm]73-25-5704VzlceqzyAvklnr; other and unspecified primary (2 sources)Personal history of other benign neoplasm; 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: [Personal history of other benign neoplasm]Onset: 56-79-2709HolvhewmXjzcqbfwaqgqo of surgical procedures or medical care (2 sources)Postablative hypothyroidism; 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: [Postprocedural hypothyroidism]64-60-8798HmhwqjkDvapcwaq mellitus with complications (20 sources)Type 2 diabetes mellitus with hyperglycemia; 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: [Other specified diabetes mellitus with hyperglycemia]Onset: ChronicDisorders of lipid metabolism (2 sources)Hyperlipidemia, unspecified; 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: [Hyperlipidemia]Onset: 392193-28-3808UehahljTotkvjbw; including migraine (20 sources)Migraine; 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: [Migraine, unspecified, not intractable, without status migrainosus]Onset: 901588-60-3718MvbduwpZjwmbzkrsexsd and screening for infectious disease (8 sources)Abnormal blood test; 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: [Abnormal immunological finding in serum, unspecified]Onset: 10-29-2016 Resolved: 503936-93-9267AjkkfvdeIhzebaugtdiz; infection of eye (except that caused by tuberculosis or sexually transmitteddisease) (1 source)Keratoconjunctivitis sicca; 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: [Keratoconjunctivitis sicca, not specified as Sjogren's, unspecified eye]Onset: hronic Inflammatory diseases of female pelvic organs (2 sources)Acute vaginitis; 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: [Acute vaginitis]Onset: 12-06-2024 19-75-6823TtedozclTxkqnff and fatigue (8 sources)Fatigue; 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: [Other fatigue]Onset: EpisodicMenopausal disorders (2 sources)Menopausal syndrome; 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: [Menopausal and female climacteric states]07-63-2510VrhgvjlSlhvszsuv disorders (1 source)Menorrhagia; 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: [Excessive and frequent menstruation with regular cycle]87-42-7076SjhqvahAujswtb (10 sources)Onychomycosis; 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: [Tinea unguium]03-72-9952Cpntafls Nonmalignant breast conditions (11 sources)Discharge from nipple; 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: [Nipple discharge]Onset: 883639-66-2024ItsyshuuWuvjjwwvqmj deficiencies (20 sources)Vitamin D deficiency; 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: [Vitamin D deficiency, unspecified]Onset: 464118-96-9062JvgpgcwJjmommvpkjnpwy (20 sources)Osteoarthritis of joint of right hand; 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: [Primary osteoarthritis, right hand]Onset: 36-12-8315DlvdjkfYjctm aftercare (6 sources)Patient encounter status; 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: [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 of non-steroidal anti-inflammatories (NSAID)]Onset: 10-29-2016 Resolved: 168195-02-0218LapzvhkzJfgpx connective tissue disease (2 sources)Other symptoms and signs involving the musculoskeletal system; 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: [Other musculoskeletalsymptoms referable to limbs]Onset: 557729-27-4938HljrdvrtZcpjc nervous system disorders (20 sources)Tarsal tunnel syndrome; 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: [Tarsal tunnel syndrome, unspecified lower limb]Onset: 247501-37-1065EgmodvsZprzx nervous system disorders (1 source)Polyneuropathy in diseases classified elsewhere; 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: [Polyneuropathy in diseases classified elsewhere]Onset: 45-40-3764RxcygafWbbvb nervous system disorders (1 source)Impaired cognition; 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: [Other symptoms and signs involving cognitive functions and awareness]26-56-8072LgbokweeSyjdg non-traumatic joint disorders (2 sources)Pain in left knee; 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: [Pain in joint, lower leg]Onset: 328308-79-3883TdsfhamuJkykw nutritional; endocrine; and metabolic disorders (3 sources)Obese class II; 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: [Obesity, unspecified]Onset: 07-10-2021 27-89-5209AwxgoqtJdtwu nutritional; endocrine; and metabolic disorders (1 source)Peripheral neuropathy due to metabolic disorder; 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: [Metabolic disorder, unspecified]32-29-5640HnyoimvOieua nutritional; endocrine; and metabolic disorders (1 source)Metabolic disorder, unspecified; 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: [Metabolic disorder, unspecified]Onset: 55-02-1454GhryhwdHtfbl screening for suspected conditions (not mental disorders or infectious disease) (6 sources)Encounter for screening mammogram for malignant neoplasm of breast; 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: [Encounter for screening for malignant neoplasm of colon]Onset: 608683-71-2396DzjxdbtmLojjb upper respiratory disease (20 sources)Allergic rhinitis; 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: [Allergic rhinitis, unspecified] Onset: 841832-85-8579DzvxbjvNolxvtil codes; unclassified (1 source)Edema; 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: [Edema, unspecified]73-89-9520Rcphvgmv Spondylosis; intervertebral disc disorders; other back problems (20 sources)Degeneration of lumbar intervertebral disc; 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: [Other intervertebral disc degeneration, lumbar region]Onset: 78-10-0401Eoxwdsi Substance-related disorders (4 sources)Smoker; 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: [Nicotine dependence, unspecified, uncomplicated]01-09-4486EyevannNtmwnptx lupus erythematosus and connective tissue disorders (20 sources)Sjogren's syndrome; 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: [Sicca syndrome, unspecified] Onset: 06-14-2015 Resolved: 27-45-1590UdssrgzJfyhsrq disorders (20 sources)Hypothyroidism; 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: [Hypothyroidism, unspecified]Onset: 76-31-7024BgcgpkvGujhibxsnden (1 source)High Blood Sugar - SymptomaticOnset: 88-93-7214Jvrjlwzpnhvb (1 source)EMSOnset: 21-67-8110Lcimpgfeoiav (1 source)HRTOnset: 25-21-7646Xsmxtqxudzpa (1 source)Annual ExamOnset: 73-74-4446Vxuur infection (2 sources)COVID-19; 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: [Disease caused by 2019-nCoV]Onset: 03-19-2022 Past or Other Problems Problem ClassificationProblemDateDocumented DateEpisodic/ChronicAllergic reactions (20 sources)Allergic disorder; 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: [Allergy, unspecified, initial encounter]Onset: 472306-03-8704LtyxgnkuCeywdd of cervix (20 sources)Malignant tumor of cervix; 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: [Malignant neoplasm of cervix uteri, unspecified]Onset: 10-29-2016 Resolved: 703217-43-9060SbkpvevZupdsv of cervix (1 source)History of malignant neoplasm of cervix; 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: [Personal history of malignant neoplasm of cervix uteri]70-79-9535XifvsyuuKigllsxg mellitus without complication (20 sources)Hyperglycemia; 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: [Hyperglycemia, unspecified]Onset: 09-73-9421SahcjzfjMnmghbda of mouth; excluding dental (8 sources)Xerostomia; 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: [Disturbances of salivary secretion]Onset: 76-64-3304TkjnubwkNtym disorders (20 sources)Mood disordersOnset: 09-01-2023 Resolved: Nausea and vomiting (4 sources)Nausea; 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: [NAUSEA]Onset: 76-22-1709SpkpvjopFmtvq aftercare (3 sources)Drug therapy finding; 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: [Other press tender long goods (current) drug therapy]Onset: 10-29-2016 Resolved: 384881-78-9259NckzdcblQowdc aftercare (1 source)long-term current use of non-steroidal anti-inflammatory drug; 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: [long-term (current) use of non-steroidal anti-inflammatories (NSAID)]Onset: 10-29-2016 Resolved: 343645-54-2757XnkivwdpElqor bone disease and musculoskeletal deformities (20 sources)Disorder of skeletal system; 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: [Disorder of bone, unspecified]Onset: 777823-79-9889EmqiywymIrgrk circulatory disease (20 sources)Telangiectasia of skin of face; 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: [Nevus, non-neoplastic]Onset: 98-84-2106YxdinkqjLwtna connective tissue disease (3 sources)Pain in right hand; 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: [Pain in right hand]Onset: 670423-00-0485DxucfocoLyhpp connective tissue disease (3 sources)Pain in left foot; 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: [Pain in left foot]Onset: 10-29-2016 05-39-4831HetvineeAcnkg connective tissue disease (14 sources)Swelling of bilateral lower limbs; 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: [Other specified soft tissue disorders]Onset: 10-17-2024 Resolved: 148300-23-6638QprdundmMqsux connective tissue disease (1 source)Other specified soft tissue disorders; 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: [Other specified soft tissue disorders]Onset: 32-84-7922OvxsrkooWvwlg eye disorders (4 sources)Dry eyes; 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: [Dry eye syndrome of bilateral lacrimal glands]Onset: 91-89-4058TtprnelyAyzgf female genital disorders (19 sources)History of abnormal cervical Papanicolaou smear ; 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: [Personal history of other diseasesof the female genital tract]Onset: 10-13-2023 52-35-6235FxhjoyvwAgsbg infections; including parasitic (1 source)Scabies; 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: [Scabies B86]Onset: 05-02-2021 Resolved: 82-52-9772DuaewcfuZaexp nervous system disorders (20 sources)Neurological finding; 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: [Other abnormal involuntary movements]Onset: 78-84-3602AtwjydubIqzyt non-traumatic joint disorders (3 sources)Shoulder pain; 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: [Pain in unspecified shoulder]Onset: 969293-77-5410NkgdgsiuXgsee non-traumatic joint disorders (11 sources)Pain in left shoulder; 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: [Pain in joint, shoulder region] Resolved: 202202-84-8664GbnlkiuvBgftg nutritional; endocrine; and metabolic disorders (1 source)History of Graves' disease; 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: [Personal history of other endocrine, nutritional and metabolic disease]10-24-9737PmhpufaiHjwic nutritional; endocrine; and metabolic disorders (1 source)Weight loss; 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: [Abnormal weight loss]83-04-5400Imxlaqgf Other skin disorders (5 sources)Hyperpigmentation of skin; 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: [Disorder of pigmentation, unspecified]Onset: 47-56-9854FfygcbfrCrapj upper respiratory infections (1 source)Acute upper respiratory infection, unspecified; 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: [Viral upper respiratory illness J06.9]Onset: 05-02-2021 Resolved: 20-30-1246MapwppctHjfolqoe codes; unclassified (3 sources)Noncompliance with treatment; 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: [Patient's noncompliance with other medical treatment and regimen]Onset: 406552-66-3406Pbxqwdnm Residual codes; unclassified (13 sources)Noncompliance with medication regimen; 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: [Non compliance w medication regimen]Onset: 184283-12-0734QxmrofltXeytfdiw codes; unclassified (12 sources)Bilateral lower limb edema; 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: [Localized edema]Onset: 288812-58-0715LxsmhcihUtrexqjd codes; unclassified (12 sources)Edema, generalized; 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: [Generalized edema]Onset: 158933-34-5350NzcuqayfCrvprass codes; unclassified (1 source)Edema, unspecified; 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: [Edema, unspecified]Onset: 88-55-4056KhrqeafnTzjlrtwvlkf; intervertebral disc disorders; other back problems (20 sources)Neck pain; 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: [Cervicalgia]Onset: 10-29-2016 Resolved: 196869-18-2116HcoylqyuArhabxpqsrbf (20 sources)Onset: Results Test NameValueInterpretationReference RangeFacilityProt. Electroph, Blon 32-71-5792Btwupmquoat Review:ELECTRONICALLY SIGNED. KAILEE FERNANDEZ M.D. [facility] Health Main CampusComment on above:Performed By: #### INSU #### [address] [id number] Supervisor Special Effects: Gee Royal MD [facility] [address] [place] [address] Supervisor Special Effects: Loreta Zelaya MD #### CPEP #### [address] [phone] Supervisor Special Effects: Gee Royal MDAlbumin [Mass/Vol]4.1 g/dLNormal3.2-5.2[facility] HospitalComment on above:Performed By: #### INSU #### [address] [address] Supervisor Special Effects: Gee Royal MD [address] [place] [phone] Supervisor Special Effects: Loreta Zelaya MD #### CPEP #### [address] [address] Supervisor Special Effects: Bill Pinedabumin, %58 %Vekruv18-55QxdayOhiohealth Pickerington Methodist Hospital Comment on above:Performed By: #### INSU #### [address] [address] Supervisor Special Effects: Gee Royal MD [address] [place] [phone] Supervisor Special Effects: Lroeta Zelaya MD #### CPEP #### [address] [address] Supervisor Special Effects: Gee Royal MDAWAHawpu-3-ctveqrvci8.3 g/dLNormal0.1-0.4[facility]state Medical CenterComment on above:Performed By: #### INSU #### [address] [address] Supervisor Special Effects: Gee Royal MD [address] [place] [phone] Supervisor Special Effects: Loreta Zelaya MD #### CPEP #### [address] [address] Supervisor Special Effects: Gee Royal MDAlpha-1-globulins,%4 %Normal3-5[facility] Centercy Houston HospitalComment on above:Performed By: #### INSU #### [address] [address] Supervisor Special Effects: Gee Royal MD [address] [place], [place] [phone] Supervisor Special Effects: Loreta Zelaya MD #### CPEP #### [address] [address] Supervisor Special Effects: Flex Pinedaha-2-globulins0.7 g/dLNormal0.5-0.9[facility] Medical CenterComment on above:Performed By: #### INSU #### [address] [address] Supervisor Special Effects: Gee Royal MD [address] [place] [phone] Supervisor Special Effects: Loreta Zelaya MD #### CPEP #### [address] [address] Supervisor Special Effects: Gee Royal MDAlpha-2-globulins,%10 %Normal7-12[facility] Centercy Midstate Medical CenterComment on above:Performed By: #### INSU #### [address] [address] Supervisor Special Effects: Gee Royal MD [address] [place] [phone] Supervisor Special Effects: Loreta Zelaya MD #### CPEP #### [address] [address] Supervisor Special Effects: Gee Royal MDBeta-globulins0.9 g/dLNormal0.7-1.4[facility] Medical CenterComment on above:Performed By: #### INSU #### [address] [address] Supervisor Special Effects: Gee Royal MD [address] [place] [address] Supervisor Special Effects: Loreta Zelaya MD #### CPEP #### [address] [address] Supervisor Special Effects: Gee Royal MDBeta-globulins,%13 %Normal8-13[facility] Centercy Midstate Medical CenterComment on above:Performed By: #### INSU #### [address] [address] Supervisor Special Effects: Gee Royal MD [address] [place], [place] [phone] Supervisor Special Effects: Loreta Zelaya MD #### CPEP #### [address] [address] Supervisor Special Effects: Gee Royal MDGamma-globulins1.1 g/dLNormal0.5-1.5[facility] HospitalComment on above:Performed By: #### INSU #### [address] [address] Supervisor Special Effects: Gee Royal MD [address] [place] [phone] Supervisor Special Effects: Loreta Zelaya MD #### CPEP #### [address] [address] Supervisor Special Effects: Dennis Pinedamma-globulins,%15 %Npnssd14-43NrkmjOhiohealth Pickerington Methodist HospitalComment on above:Performed By: #### INSU #### [address] [address] Supervisor Special Effects: Gee Royal MD [address] [place] [phone] Supervisor Special Effects: Loreta Zelaya MD #### CPEP #### [address] [address] Supervisor Special Effects: Gee Madoff, MDProt. Elect-InterpNormal electrophoretic pattern.NormalMercy Houston HospitalComment on above:Performed By: #### INSU #### [address] [address] Supervisor Special Effects: Gee Royal MD [address] [place] [phone] Supervisor Special Effects: Loreta Zelaya MD #### CPEP #### [address] [address] Supervisor Special Effects: Gee Royal MDTotal Prot. Sum7.1 g/dLNormal6.3-8.2[facility] HospitalComment on above:Performed By: #### INSU #### [address] [address] Supervisor Special Effects: Gee Royal MD [address] [place] [address] Supervisor Special Effects: Loreta Zelaya MD #### CPEP #### [address] [address] Supervisor Special Effects: Gee Royal MDTotal Prot. Sum,%100 %Ejvqby18-728YyqbfOhiohealth Pickerington Methodist HospitalComment on above:Performed By: #### INSU #### [address] [address] Supervisor Special Effects: Gee Royal MD [address] [place] [address] Supervisor Special Effects: Loreta Zelaya MD #### CPEP #### [address] [address] Supervisor Special Effects: Gee Royal MDB12/Folate Panelon 77-21-1386Vfrbbkymj (Vitamin B12) [Mass/Vol]391 pg/aYMqocuo848-8402Rnnyg Tiffin HospitalComment on above: Performed By: #### BMP #### [address] [place] [address] Supervisor Special Effects: Loreta Zelaya MDCoastal Communities Hospitalann Acid37.3 ng/mLHigh4.8-24.2MercCharlotte Hungerford HospitalComment on above:Performed By: #### BMP #### [facility] [address] [place] [address] Supervisor Special Effects: RUTH Fraziercedrick 76-31-9188Qcjkxhmdhoh distribution width (RBC) [Ratio]13.3 %11.8 - 14.4 %[facility] HospitalHematocrit (Bld) [Volume fraction]44.9 %36.3 - 47.1 %[facility] HospitalHemoglobin (Bld) [Mass/Vol] 14.9 g/dL11.9 - 15.1 g/dLBon Samaritan HospitalInterpretation and review of laboratory resultsAbnormalInova Women's Hospital (RBC) [Entitic mass]29 pg 25.2 - 33.5 pgCentra HealthHC (RBC) [Mass/Vol]33.2 g/dL28.4 - 34.8 g/dLBon Bethesda North HospitalV (RBC) [Entitic vol]87.5 fL82.6 - 102.9 fLCarilion Roanoke Memorial HospitalNucleated RBC/100 WBC (Bld) [Ratio]0 %0.0 per 100 WBCCarilion Roanoke Memorial HospitalPlatelet mean volume (Bld) [Entitic vol]9.7 fL8.1 - 13.5 fL [facility] HospitalPlatelets (Bld) [#/Vol]306 10*3/uLBon Samaritan HospitalRBC (Bld) [#/Vol]5.13 10*6/uLHigh3.95 - 5.11 m/uLCarilion Roanoke Memorial Hospital WBC other (Bld) [#/Vol]5.9[facility] Erythrocyte distribution width (RBC) [Ratio]13.3 %Bulztn99.8-14.4[facility] HospitalComment on above:Performed By: #### BMP #### [facility] [address] [place], [place] [phone] Supervisor Special Effects: Loreta Zelaya MDHematocrit (Bld) [Volume fraction]44.9 %Normal 36.3-47.1MThe Surgical Hospital at Southwoods HospitalComment on above:Performed By: #### BMP #### [address] [place], [place] [phone] Supervisor Special Effects: Loreta Zelaya MDHemoglobin (Bld) [Mass/Vol]14.9 g/dLNormal 11.9-15.1MThe Surgical Hospital at Southwoods HospitalComment on above:Performed By: #### BMP #### [address] [place] [phone] Supervisor Special Effects: MIGUELINA FrazireCH (RBC) [Entitic mass]29.[address]zaz21.2-33.5 [facility] HospitalComment on above:Performed By: #### BMP #### [address] [place] [phone] Supervisor Special Effects: KELLI FrazierC (RBC) [Mass/Vol]33.2 g/dHWenbvq62.4-34.8[facility] HospitalComment on above:Performed By: #### BMP #### [address] [place] [phone] Supervisor Special Effects: MIGUELINA FrazierCV (RBC) [Entitic vol]87.[address]kl37.6-102.9 [facility] HospitalComment on above:Performed By: #### BMP #### [address] [place], [place] [phone] Supervisor Special Effects: Loreta Zelaya MDNRBC Automated0.0 per [address] HospitalComment on above:Performed By: #### BMP #### [address] [place] [address] Supervisor Special Effects: Helena Frazier mean volume (Bld) [Entitic vol]9.7 fL Normal8.1-13.5[facility] HospitalComment on above:Performed By: #### BMP #### [facility] [address] [place] [address] Dr[address] [place], [place] [phone] Supervisor Special Effects: Luna Frazier (Bld) [#/Vol]306 10*3/uWEwfclt669-259 [facility] HospitalComment on above:Performed By: #### BMP #### [facility] [address] [place] [address] Supervisor Special Effects: SARA Frazier (Bld) [#/Vol]5.13 10*6/uLHigh3.95-5.11[facility] HospitalComment on above:Performed By: #### BMP #### [facility] [address] [place] [address] Dr[address] [place], [place] [phone] Supervisor Special Effects: TSERING Frazier (Bld) [#/Vol]5.9 10*3/uLNormal3.5-11.3MEast [facility] Regional HospitalComment on above:Performed By: #### BMP #### [address] [place], [place] [phone] Supervisor Special Effects: Loreta Zelaya MDCKon 85-13-9330AE [Catalytic activity/Vol]26 U/L26 - 192 U/LBon Samaritan HospitalBon Samaritan HospitalCreatine Kinaseon 66-64-8593LY [Catalytic activity/Vol]26 U/PSxvkfn69-777KghlcOhiohealth Pickerington Methodist Hospital Comment on above:Performed By: #### CDP #### [facility] [address] [place] [address] Dr[place], [place] [phone] Supervisor Special Effects: Loreta Zelaya MDEstradiolon 59-48-1774Cgrtvzhqb34.0 pg/mLCarilion Roanoke Memorial HospitalComment on above: FEMALES: Normally menstruating Luteal phase 60-232 Follicular phase 31-90 Midcycle phase 60-533 Postmenopausal (untreated) <138 Fulvestrant treatment will show an increased estradiol concentration with this methodology. Alternate methodologies are available upon request. Wmuvdewru13.0 pg/mLNUniversity Hospitals Health SystemComformerly [facility] on above:Result Comment: FEMALES: Normally menstruating Luteal phase 60-232 Follicular phase 31-90 Midcycle phase 60-533 Postmenopausal (untreated) <138 Fulvestrant treatment will show an increased estradiol concentration with this methodology. Alternate methodologies are available upon request.Performed By: #### BMP #### [address] [place] [address] Supervisor Special Effects: Loreta Zelaya MDFollicle Stim. Hormon 83-16-7011Ubdoyoxd Stim. Horm4.8 mIU/mLNormalOhiohealth Pickerington Methodist HospitalComment on above:Result Comment: Reference Range: Male: 1.5-12.4 Ovulating Female: Follicular Phase 3.5-12.5 Ovulation Phase 4.7-21.5 Luteal Phase 1.7-7.7 Postmenopausal Female: 25.8-134.8Performed By: #### VBG #### [address] [place] [address] Supervisor Special Effects: Loreta Zelaya MDFollicle Stimulating Hormoneon 02-08-2025 Follitropin Qn4.8 m[IU]/mLmIU/mLBon Secours Ohiohealth Grant Medical CenterComment on above: Reference Range: Male: 1.5-12.4 Ovulating Female: Follicular Phase 3.5-12.5 Ovulation Phase 4.7-21.5 Luteal Phase 1.7-7.7 Postmenopausal Female: 25.8-134.8 HCG, Quanton 10-11-1218UNI, Quant<0.2Fqhuod6-3NotyjOhiohealth Pickerington Methodist HospitalComment on above:Result Comment: Non-preg premeno <=5 Postmeno <=8 Male <=3 If HCG results do not concur with clinical observations, additional testing to confirm results is recommended.Performed By: #### BMP #### [address] [place] [address] Supervisor Special Effects: Loreta Zelaya MDHCG, Quantitative, Pregnancyon 48-67-0478QVT.beta subunit QnBon Samaritan HospitalComment on above: Non-preg premeno <=5 Postmeno <=8 Male <=3 If HCG results do not concur with clinical observations, additional testing to confirm results is recommended. [facility] HospitalLuteinizing Hormoneon 64-65-3330Cbggandn Qn2.8 m[IU]/mL [facility] HospitalComment on above:Reference Range: Male: 1.7-8.6 Ovulating Female: Follicular Phase 2.4-12.6 Ovulation Phase 14.0-95.6 Luteal Phase 1.0-11.4 Postmenopausal Female: 7.7-58.5 Luteinizing Hormone2.8 mIU/mLNormal1.7-8.6[facility]state Medical CenterComment on above: Result Comment: Reference Range: Male: 1.7-8.6 Ovulating Female: Follicular Phase 2.4-12.6 Ovulation Phase 14.0-95.6 Luteal Phase 1.0-11.4 Postmenopausal Female: 7.7-58.5Performed By: #### VBG #### [address] [place] [address] Supervisor Special Effects: Loreta Zelaya MDNo Panel Informationon 84-11-3148Npx Samaritan HospitalProgesteroneon 19-61-2292Zychqbfovsql [Mass/Vol]2.57 ng/mLCarilion Roanoke Memorial HospitalComment on above: Female: Follicular phase <0.19 ng/mL Ovulation phase 0.06-4.14 ng/mL Luteal phase 4.11-14.5 ng/mL Postmenopausal <0.13 ng/mL Progesterone2.57 ng/mLNormalMercy Midstate Medical CenterComment on above:Result Comment: Female: Follicular phase <0.19 ng/mL Ovulation phase 0.06-4.14 ng/mL Luteal phase 4.11-14.5 ng/mL Postmenopausal <0.13 ng/mLPerformed By: #### VBG #### [facility] [address] [place] [address] [place] [address] Supervisor Special Effects: Freda Frazieractinon 61-11-9822Ksdmndeqkhijua and review of laboratory resultsAbnormalCarilion Roanoke Memorial HospitalProlactin [Mass/Vol]4.73 ng/mLLow4.79 - 23.3 ng/mLBon Samaritan HospitalComment on above:The presence of macroprolactin may cause interference in female patients with various endocrinological diseases or during . [facility] HospitalProlactin4.73 ng/mLLow4.79-23.3MEast [facility] Comment on above:Result Comment: The presence of macroprolactin may cause interference in female patients with various endocrinological diseases or during .Performed By: #### BMP #### [facility] [address] [place] [address] [place]. [place] [phone] Supervisor Special Effects: Alisha Frazier. Electroph, Blon 16-83-4482Rsfhlke [Mass/Vol] 7.0 g/dLNormal6.6-8.7[facility] HospitalComment on above:Performed By: #### INSU #### [address] [address] Supervisor Special Effects: Gee Royal MD [address] [place] [phone] Supervisor Special Effects: Loreta Zelaya MD #### CPEP #### [address] [id number] Supervisor Special Effects: QUAN Pinedaedimentation Rateon 84-11-0796ZSY Photometric method (Bld) [Velocity]21HighCarilion Roanoke Memorial HospitalInterpretation and review of laboratory resultsAbnormalVCU Medical Center Sedimentation Rate21 mm/HrHigh0-20[facility] HospitalComment on above: Performed By: #### CDP #### [address] [place] [address] Supervisor Special Effects: Loreta Zelaya MDT4, Free 71-47-9500Hykr T4 [Mass/Vol]0.5 ng/dL Low0.92 - 1.68 ng/dLBon Samaritan HospitalInterpretation and review of laboratory resultsAbnormClinch Valley Medical CenterTSHon 75-52-2932Ealvperyrbnbzm and review of laboratory resultsAbnormCarilion [facility] Qn15.5 m[IU]/LHighBon [facility] Memorial HospitalTestosteroneon 67-19-2630Spveulmhyvjb [Mass/Vol]14 ng/dL8 - 48 ng/dLBon [facility]uel County Memorial HospitalTestosterone, Totalon 22-52-5746Vgvhfnkpnkyd [Mass/Vol]14 ng/dLNormal8-48[facility] HospitalComment on above:Performed By: #### VBG #### [address] [place] [address] Supervisor Special Effects: Loreta Zelaya MDThyroid Stim. Horm.on 80-47-9222Hscdyxr Stim. Horm.15.50 uIU/mLHigh0.27-4.20[facility] HospitalComment on above:Performed By: #### BMP #### [address] [place] [address] Supervisor Special Effects: Loreta Zelaya MDThyroxine, Freeon 42-55-4928Wzjwsjagz, Free0.5 ng/dLLow0.92-1.68[facility] HospitalComment on above:Performed By: #### VBG #### [address] [place] [phone] Supervisor Special Effects: Loreta Zelaya MDVitamin B12 & Folateon 41-78-1477Ryhgeelmr (Vitamin B12) [Mass/Vol]391 pg/mL232 - 1245 pg/mLCarilion Roanoke Memorial HospitalFolate [Mass/Vol]37.3 ng/mLHigh4.8 - 24.2 ng/mLCarilion Roanoke Memorial HospitalInterpretation and review of laboratory resultsAbnormChildren's Hospital of The King's DaughtersACETONE,(BETAHYDROXYBUTYRATE, KETONE) QUANTITATIVE SERUMon 01-55-5237QWIOZEBVMHGKYMEQUVA2.13 mmol/LNormal0.02-0.27Day[facility] Medical CenterComment on above:Performed By: #### KETB #### [facility] ([address] [place] [address] VIRB-TYPE NATRIURETIC PEPTIDEon 77-54-4835Bthiiedbgny peptide B (Bld) [Mass/Vol]16 pg/mLNormal<=100ProUt Health HendersonComment on above: Performed By: #### BNP #### [facility] ([address] [place] [address] VIRBEDSIDE GLUCOSEon 11-26-8439Aptlnmb [Mass/Vol]306 mg/dLHigh 65-99[facility] CenterComment on above:Performed By: #### BEDG #### [facility] ([address] [place] [address] VIRGlucose [Mass/Vol]476 mg/dLCritically pgtq13-63QtkZsrespDayton VA Medical CenterComment on above:Performed By: #### BEDG #### [facility] ([address] [address] VIRCBC WITH AUTO DIFFERENTIALon 94-12-5618KJOPEMXOQ ABSOLUTE COUNT (10*3/UL) BY AUTOMATED COUNT0.0 10*3/uLNormal0.0-0.2ProMedica [facility]tman Medical CenterComment on above:Performed By: #### CBCA #### [facility] ([address] [place] [address] VIRBASOPHILS RELATIVE PERCENT BY AUTOMATED COUNT0.6 %Normal [facility] CenterComformerly [facility] on above:Performed By: #### CBCA #### [facility] ([address] [place] [address] VIRCELLAVISION DIFFERENTIAL TYPEAUTOMATED DIFFERENTIALNormal [facility] CenterComment on above:Performed By: #### CBCA #### [facility] ([address] [place] [address] VIREosinophils (Bld) [#/Vol]0.1 10*3/uLNormal0.0-0.4[facility] Medical CenterComment on above:Performed By: #### CBCA #### [facility] ([address] [place] [address] VIREOSINOPHILS RELATIVE PERCENT BY AUTOMATED COUNT2.1 %Normal [facility] CenterComment on above:Performed By: #### CBCA #### [facility] ([address] [place] [address] VIRErythrocyte distribution width (RBC) [Ratio]13.1 %Normal 11.5-15ProUt Health HendersonComment on above:Performed By: #### CBCA #### [facility] ([address] [address] VIRHematocrit (Bld) [Volume fraction]41.3 %Ucgylq57-42 [facility] CenterComment on above:Performed By: #### CBCA #### [facility] ([address] [place] [address] VIRHemoglobin (Bld) [Mass/Vol]14.0 g/hRAgsfzf85.7-15.5 [facility] CenterComment on above:Performed By: #### CBCA #### [facility] ([address] [address] VIRLYMPHOCYTES ABSOLUTE COUNT (10*3/UL) BY AUTOMATED COUNT1.9 10*3/uLNormal1.0-3.5PProMedica Flower HospitalComment on above:Performed By: #### CBCA #### [facility] ([address] [address] VIRLYMPHOCYTES RELATIVE PERCENT BY AUTOMATED COUNT31.7 %Normal [facility] CenterComment on above:Performed By: #### CBCA #### [facility] ([address] [place] [address] VIRH (RBC) [Entitic mass]29.1 joYsljdc46-07ZpvXujfqjUt Health HendersonComment on above:Performed By: #### CBCA #### [facility] ([address] [place] [address] VIRMCHC (RBC) [Mass/Vol]33.9 g/aESmxwln19-49UlkGzdrmfUt Health HendersonComment on above:Performed By: #### CBCA #### [facility] ([address] [place] [address] VIRMCV (RBC) [Entitic vol]86 sCCsmbqm10-060MphMreisv Fremont HospitalComment on above:Performed By: #### CBCA #### [facility] ([address] [address] VIRMONOCYTES ABSOLUTE COUNT (10*3/UL) BY AUTOMATED COUNT0.4 10*3/uLNormal0.0-0.9[facility] CenterComformerly [facility] on above:Performed By: #### CBCA #### [facility] ([address] [place] [address] VIRMONOCYTES RELATIVE PERCENT BY AUTOMATED COUNT5.9 %Normal [facility] Medical CenterComment on above:Performed By: #### CBCA #### [facility] ([address] [place] [address] VIRNEUTROPHILS ABSOLUTE COUNT BY AUTOMATED COUNT3.6 10*3/uL Normal1.5-6.6[facility] Medical CenterComformerly [facility] on above:Performed By: #### CBCA #### [facility] ([address] [place] [address] VIRNEUTROPHILS RELATIVE PERCENT BY AUTOMATED COUNT59.7 %Normal [facility] CenterComment on above:Performed By: #### CBCA #### [facility] ([address] [place] [address] VIRPlatelet mean volume (Bld) [Entitic vol]7.9 fLNormal7-12 [facility] CenterComment on above:Performed By: #### CBCA #### [facility] ([address] [place] [address] VIRPlatelets (Bld) [#/Vol]256 10*3/pOFlsyzs850-474IwxHztmag [place] HospitalComment on above:Performed By: #### CBCA #### [facility] ([address] [place] [address] VIRRBC COUNT4.82 X10E12/LNormal3.8-5.2PProMedica Flower HospitalComment on above:Performed By: #### CBCA #### [facility] ([address] [place] [address] VIRWBC (Bld) [#/Vol]6.0 10*3/uLNormal4-11[facility] Medical CenterComment on above:Performed By: #### CBCA #### [facility] ([address] [place] [address] VIRCOMPREHENSIVE METABOLIC PANELon 14-72-5196Wcrdcyc [Mass/Vol]3.4 g/dLNormal3.2-5.3PProMedica Flower HospitalComment on above: Performed By: #### CMP #### [facility] ([address] [place] [address] VIRALP [Catalytic activity/Vol]118 U/FEtoujx56-739IpuBdsippUt Health HendersonComment on above:Performed By: #### CMP #### [facility] (MIKAEL) [address] [place] [address] VIRALT [Catalytic activity/Vol]32 U/LHigh<=31PProMedica Flower HospitalComment on above:Performed By: #### CMP #### [facility] ([place] [address] [place] [address] VIRAnion gap [Moles/Vol]6 mmol/LNormal5-15ProUt Health HendersonComment on above:Performed By: #### CMP #### [facility] ([place] [address] [address] VIRAST [Catalytic activity/Vol]14 U/LNormal<=41ProUt Health HendersonComment on above:Performed By: #### CMP #### [facility] ([place] [address] [address] VIRBilirubin [Mass/Vol]0.4 mg/dLNormal0.3-1.2PSt. Anthony Hospital HospitalComment on above:Performed By: #### CMP #### [facility] ([place] [address] [place] [address] VIRCalcium [Mass/Vol]8.6 mg/dLNormal8.5-10.5PProMedica Flower HospitalComment on above:Performed By: #### CMP #### [facility] ([place] [address] [place] [address] VIRChloride [Moles/Vol]101 mmol/WZmedur16-168BwfOgwsmhUt Health HendersonComment on above:Performed By: #### CMP #### [facility] ([place] [address] [place] [address] VIRCO2 [Moles/Vol]25 mmol/OKyueun86-44WqrIjhostProMedica Flower HospitalComment on above:Performed By: #### CMP #### [facility] ([place] [address] [place] [address] VIRCreatinine [Mass/Vol]0.45 mg/dLNormal0.40-1.00ProUt Health HendersonComment on above:Result Comment: METHOD TRACEABLE TO IDMS STANDARDPerformed By: #### CMP #### [address] [address] VIREGFR (CKD-EPI) NON-RACE DEPENDENT>^90Normal>=60ProUt Health HendersonComment on above:Result Comment: Reported eGFR is based on the CKD-EPI 2020 equation that does not use a race coefficient.Performed By: #### CMP #### [facility] ([address] [address] VIRGlucose [Mass/Vol]401 mg/dLCritically dmrw06-27WuvMknynaUt Health HendersonComment on above:Performed By: #### CMP #### [address] [address] VIRPotassium [Moles/Vol]4.1 mmol/LNormal3.5-5.0ProUt Health HendersonComment on above:Performed By: #### CMP #### [facility] ([address] [address] VIRProtein [Mass/Vol]6.2 g/dLNormal6.0-8.0ProUt Health HendersonComment on above:Performed By: #### CMP #### [address] [address] VIRSodium [Moles/Vol]132 mmol/SMim554-117QkwFknvhqUt Health HendersonComment on above:Performed By: #### CMP #### [address] [address] VIRUrea nitrogen [Mass/Vol]14 mg/dLNormal5-23ProUt Health HendersonComment on above:Performed By: #### CMP #### [facility] ([address] [place] [address] VIRLACTATE W/ REFLEXon 35-63-1190XRKIVFM W/REFLEX1.3 mmol/L Normal0.4-2.0ProUt Health HendersonComment on above:Order Comment: Result did not trigger repeat Lactate, re-order if needed.Performed By: #### LACTS #### [facility] ([address] [place] [address] VIRMAGNESIUMon 50-44-5692Mfcbelvrb [Mass/Vol]1.8 mg/dLNormal 1.8-2.6ProUt Health HendersonComment on above:Performed By: #### MG #### [address] [place] [address] VIRPH, VENOUSon 71-58-8280KV VENOUS7.657Ajjd8.320-7.420 [facility] Medical CenterComment on above:Performed By: #### PHV #### [address] [place] [address] VIRPOCT NURSING URINE MACROSCOPIC UAon 25-51-5409IILCVPVPU RICKY NegativeNormalNegativeDayton VA Medical CenterComment on above:Performed By: #### NUM #### [address] [place] [address] VIRBLOOD/HGB NURNegativeNormalNegativeDayton VA Medical CenterComment on above:Performed By: #### NUM #### [address] [place] [address] VIRGLUCOSE RICKY>=1000 mg/dLAbnormalNegativeDayton VA Medical CenterComment on above:Performed By: #### NUM #### [place] [address] [place] [address] VIRKETONES NURNegativeNormalNegativeDayton VA Medical Center Comment on above:Performed By: #### NUM #### [facility] ([address] [address] VIRLEUKOCYTE ESTERASE NURNegativeNoperson memorial hospitalNegMercy Health St. Elizabeth Boardman HospitalComment on above:Performed By: #### NUM #### [facility] ([address] [address] VIRNITRITE NURNegativeNoperson memorial hospitalNegativeDayton [facility] Center Comment on above:Performed By: #### NUM #### [facility] ([address] [address] VIRPH NUR7.8Fxgrkx1.0, 6.0, 6.5, 7.0, 7.5, 8.0, 8.5, 5.5 [facility] CenterComment on above:Performed By: #### NUM #### [facility] ([address] [address] VIRPROTEIN NURNegativeNoperson memorial hospitalNegMercy Health St. [facility] Comment on above:Performed By: #### NUM #### [facility] ([address] [address] VIRSPECIFIC GRAVITY NUR1.190Gavsha8.010, 1.015, 1.020, 1.025 [facility] CenterComment on above:Performed By: #### NUM #### [facility] ([address] [address] VIRUROBILINOGEN NUR0.2 E.U./dLNormAdams County Regional Medical Center Comment on above:Performed By: #### NUM #### [facility] ([address] [address] VIRDBT Breast - bilateral diagnosticon [id number] evidence of malignancy either breast. There is [...] to the patient regarding the results. [employer] recommends annual mammograms for women 40 years and older. Performing Facility: [place] [address] Bethany Gruber MD - 12/25/2024 EXAMINATION: DIAGNOSTIC DIGITAL BILATERAL [...] to the patient regarding the results. [employer] recommends annual mammograms for women 40 years and older. Performing Facility: [place] [id number] [facility] HospitalRadiology Study observation (narrative)[facility] HIPOLITO DIGITAL DIAGNOSTIC BILATERALon 72-26-6767PGO HIPOLITO DIGITAL DIAGNOSTIC BILATERALEXAMINATION: DIAGNOSTIC DIGITAL BILATERAL BREASTS MAMMOGRAM WITH TOMOSYNTHESIS; [...] to the patient regarding the results. [employer] recommends annual mammograms for women 40 years and older. Performing Facility: [place] [address] Interpreted by: Bethany Melchor MD Signed by: Bethany Melchor MD 12/25/24 Final resultNormalOhiohealth Pickerington Methodist HospitalNo Panel Informationon 15-02-6365Rz evidence of malignancy either breast. There is [...] to the patient regarding the results. [employer] recommends annual mammograms for women 40 years and older. [facility] RIS CONSOLIDATEDEXAMINATION: DIAGNOSTIC DIGITAL BILATERAL BREASTS MAMMOGRAM WITH TOMOSYNTHESIS; [...] mass lesions. No ductal ectasia is noted. Bethany Gabriel MD - 12/25/2024 EXAMINATION: DIAGNOSTIC DIGITAL BILATERAL [...] to the patient regarding the results. [employer] recommends annual mammograms for women 40 years and older. [employer] Advanced TechnologiesRadiology Study observation (narrative)[facility] [employer] TVNo Panel InformationOrdered By: Bethany Melchor on [id number] [employer] Work Phone: us BREAST LIMITED LEFTon [id number] BREAST LIMITED LEFTEXAMINATION: DIAGNOSTIC DIGITAL BILATERAL BREASTS MAMMOGRAM WITH TOMOSYNTHESIS; [...] to the patient regarding the results. [employer] recommends annual mammograms for women 40 years and older. Interpreted by: Bethany Melchor MD Signed by: Bethany Melchor MD 12/25/24 Final resultNormalMercy Luc PostUS BREAST LIMITED RIGHTon [id number] BREAST LIMITED RIGHTEXAMINATION: DIAGNOSTIC DIGITAL BILATERAL BREASTS MAMMOGRAM WITH TOMOSYNTHESIS; [...] to the patient regarding the results. [employer] recommends annual mammograms for women 40 years and older. Interpreted by: Bethany Melchor MD Signed by: Bethany Melchor MD 12/25/24 Final resultNormalMercy Natchaug Hospital auto differentialon 12-21-2024 Basophils (Bld) [#/Vol]0.05 10*3/uLBon Secours Ohiohealth Grant Medical CenterBasophils/100 WBC (Bld)1 %0 - 2 %[facility] Medical CenterEosinophils (Bld) [#/Vol]0.05 10*3/uLBon Secours Highland District Hospitalcarolina HealthEosinophils/100 WBC (Bld)1 %1 - 4 %[facility] SecGlenbeigh Hospital Erythrocyte distribution width (RBC) [Ratio]11.6 %Low11.8 - 14.4 %[facility] Hospitalcarolina HealthHematocrit (Bld) [Volume fraction]41 %36.3 - 47.1 %[facility] HealthHemoglobin (Bld) [Mass/Vol]13.6 g/dL11.9 - 15.1 g/dLBon Secours Ohiohealth Grant Medical CenterImmature granulocytes (Bld) [#/Vol]0 10*3/uLBon Secours St. Elizabeth Hospital Health Immature granulocytes/100 WBC (Bld)0 %0Bon SecGlenbeigh HospitalInterpretation and review of laboratory resultsAbnormalBon Secours St. [facility] HealthLymphocytes/100 WBC (Bld)56 %High24 - 43 %Bon SecGlenbeigh HospitalLymphocytes/100 WBC (Bld)2.92 %Bon SecMercy Health Clermont HospitalH (RBC) [Entitic mass]29.9 pg25.2 - 33.5 pgBon Secours Lancaster Municipal HospitalHC (RBC) [Mass/Vol]33.2 g/dL28.4 - 34.8 g/dLBon SecGlenbeigh HospitalMCV (RBC) [Entitic vol]90.1 fL82.6 - 102.[address] [facility] Hospital HealthMonocytes/100 WBC (Bld)2 %Low3 - 12 %[facility] SecHood Memorial Hospital HealthMonocytes/100 WBC (Bld)0.1 %[facility] SecGlenbeigh HospitalMorphology Jerson (Bld) [Interp]NormalBon Secours St. [facility] Hospital HealthNeutrophils/100 WBC (Bld)40 %36 - 65 %[place] SecGlenbeigh HospitalNucleated RBC/100 WBC (Bld) [Ratio]0 %0.0 per [address] Elizabeth Hospital HealthPlatelet mean volume (Bld) [Entitic vol]9.6 fL8.1 - 13.[address] Elizabeth Hospital HealthPlatelets (Bld) [#/Vol]262 10*3/uLBon Secours St. Elizabeth Hospital HealthRBC (Bld) [#/Vol]4.55 10*6/uL3.95 - 5.11 m/uLBon Samaritan HospitalSegmented neutrophils/100 WBC (Bld)2.08 %Bon Samaritan HospitalWBC other (Bld) [#/Vol] 5.2Bon Samaritan HospitalBon Samaritan HospitalCBC with Diffon 12-21-2024 Abs. Basophil0.05 k/uLNormal0.0-0.2[facility] HospitalComment on above: Performed By: #### VBG #### [address] [place] [address] Supervisor Special Effects: MDAbs. KarinImm.Granulocyte0.00 k/uLNormal0.00-0.30Mer[facility] HospitalComment on above:Performed By: #### VBG #### [address] [place] [id number] Supervisor Special Effects: MDAbs. KarinNeutrophil (Seg)2.08 k/uLNormal1.50-8.10Mer[facility] HospitalComment on above:Performed By: #### VBG #### [address] [place] [address] Supervisor Special Effects: Loreta Zelaya MDBasophils/100 WBC (Bld)1 %Normal0-2Mer[facility] HospitalComment on above:Performed By: #### VBG #### [address] [place], [place] [address] Supervisor Special Effects: Loreta Zelaya MDEosinophils (Bld) [#/Vol]0.05 10*3/uLNormal 0.00-0.44Mer[facility] HospitalComment on above:Performed By: #### VBG #### [address] [place], [place] [id number] Supervisor Special Effects: FARIBA Frazierosinophils/100 WBC (Bld)1 %Normal1-4Mer[facility] HospitalComment on above:Performed By: #### VBG #### [address] [place], [place] [address] Supervisor Special Effects: Loreta Zelaya MDImmature granulocytes/100 WBC (Bld)0 %Ahhisd9Hthxn [facility]in HospitalComment on above:Performed By: #### VBG #### [address] [place], [place] [address] Supervisor Special Effects: Loreta Zelaya MDLymphocytes (Bld) [#/Vol]2.92 10*3/uLNormal 1.10-3.70[facility] HospitalComment on above:Performed By: #### VBG #### [address] [place], [facility]83 Supervisor Special Effects: Luciana Fraziermphocytes/100 WBC (Bld)56 %Vnfz15-49Tvzhp [facility] HospitalComment on above:Performed By: #### VBG #### [address] [place], [facility]83 Supervisor Special Effects: MIGUELINA Frazieronocytes (Bld) [#/Vol]0.10 10*3/uLNormal0.10-1.20 [facility] HospitalComment on above:Performed By: #### VBG #### [address] [place], [place] [address] Supervisor Special Effects: MIGUELINA Frazieronocytes/100 WBC (Bld)2 %Low3-12[facility] HospitalComment on above:Performed By: #### VBG #### [address] [place], [place] [address]83 Supervisor Special Effects: MIGUELINA Frazierorphology Jerson (Bld) [Interp]NormalNormalSt. Francis Hospital HospitalComment on above:Performed By: #### VBG #### [address] [place], [place] [address]57183 Supervisor Special Effects: Loreta Zelaya MDNeutrophil (Seg)40 %Nzshve63-52Rffpa [facility] HospitalComment on above:Performed By: #### VBG #### [address] [place], [place] [id number] Supervisor Special Effects: Loreta Zelaya MDErythrocyte distribution width (RBC) [Ratio]11.6 % Low11.8-14.4[facility] HospitalComment on above:Performed By: #### VBG #### [address] [place], [place] [address] Supervisor Special Effects: Loreta Zelaya MDHematocrit (Bld) [Volume fraction]41.0 %Normal 36.3-47.1MercEast [facility] Regional Hospital HospitalComment on above:Performed By: #### VBG #### [address] [place], [place] [address]283 Supervisor Special Effects: Loreta Zelaya MDHemoglobin (Bld) [Mass/Vol]13.6 g/dLNormal 11.9-15.1Muniversity hospitals lake [facility] medical centery Houston HospitalComment on above:Performed By: #### VBG #### [address] [place], [place] [address] Supervisor Special Effects: MIGUELINA FrazierCH (RBC) [Entitic mass]29.9 wpAxpkhd63.2-33.5 [facility] HospitalComment on above:Performed By: #### VBG #### [address] [place], [place] [address]83 Supervisor Special Effects: MIGUELINA FrazierCHC (RBC) [Mass/Vol]33.2 g/iPEjcqxj73.4-34.8[facility] HospitalComment on above:Performed By: #### VBG #### [address] [place], [place] [address]183 Supervisor Special Effects: RIGO Frazier (RBC) [Entitic vol]90.[address]yvf82.6-102.9 [facility] HospitalComment on above:Performed By: #### VBG #### [address] [place], [place] [id number] Supervisor Special Effects: TYREL Frazier Automated0.0 per [address] HospitalComment on above:Performed By: #### VBG #### [address] [place], [place] 2345683 Supervisor Special Effects: Helena Frazier mean volume (Bld) [Entitic vol]9.6 fL Normal8.1-13.5[facility] Methodist HospitalComment on above:Performed By: #### VBG #### [address] [place] [address] Supervisor Special Effects: Luna Frazier (Bld) [#/Vol]262 10*3/oTLsufac795-882 [facility] HospitalComment on above:Performed By: #### VBG #### [address] [place], [place] [id number] Supervisor Special Effects: SARA Frazier (Bld) [#/Vol]4.55 10*6/uLNormal3.95-5.11[facility] HospitalComment on above:Performed By: #### VBG #### [address] [place] [address] Supervisor Special Effects: TSERING Frazier (Bld) [#/Vol]5.2 10*3/uLNormal3.5-11.3MEast Ohio Regional HospitalComment on above:Performed By: #### VBG #### [address] [place], [place] [address]83 Supervisor Special Effects: RUTH Frazieromp Metabolic Pr/rfx MGon 12-78-9825Prsxqzp [Mass/Vol]3.6 g/dLNormal3.5-5.2[facility] HospitalComment on above:Performed By: #### VBG #### [address] [place] [address] Supervisor Special Effects: Loreta Zelaya MDAlbumin/Glob Ratio1.3Xbnlrc4.0-2.5[facility] HospitalComment on above:Performed By: #### VBG #### [address] [place] [address] Supervisor Special Effects: Kumar Frazierline Wlzx711 U/GVdgshq17-993Ebytt [facility] HospitalComment on above:Performed By: #### VBG #### [address] [place] [address] Supervisor Special Effects: Loreta Zelaya MDALT [Catalytic activity/Vol]19 U/AMojjaw50-59Dovrv [facility] HospitalComment on above:Performed By: #### VBG #### [address] [place] [address] Supervisor Special Effects: Loreta Zelaya MDAnion gap [Moles/Vol]10 mmol/LNormal9-16[facility] HospitalComment on above:Performed By: #### VBG #### [address] [place] [address] Supervisor Special Effects: Loreta Zelaya MDAST [Catalytic activity/Vol]13 U/BSugspe36-36Ixynj [facility] HospitalComment on above:Performed By: #### VBG #### [address] [place], [place] [address]783 Supervisor Special Effects: Loreta Zelaya MDBilirubin [Mass/Vol]0.2 mg/dLNormal0.00-1.20MerMercy Health St. [facility] HospitalComment on above:Performed By: #### VBG #### [facility] [address] [place] [address] Dr[place], [place] [address] Supervisor Special Effects: Loreta Zelaya MDBUN/CRE Vfouv60Sjjm0-66GwtiuOhiohealth Pickerington Methodist Hospital Comment on above:Performed By: #### VBG #### [address] [place], [place] [address] Supervisor Special Effects: RUTH Frazieralcium [Mass/Vol]8.4 mg/dLLow8.6-10.4[facility] HospitalComment on above:Performed By: #### VBG #### [address] [place], [place] 2[address] Supervisor Special Effects: RUTH Frazierhloride [Moles/Vol]107 mmol/JVbxymo47-985CgaunOhiohealth Pickerington Methodist HospitalComment on above:Performed By: #### VBG #### [address] [place], [place] [address]83 Supervisor Special Effects: Loreta Zelaya MDCO2 [Moles/Vol]19 mmol/LYub39-99BqeekOhiohealth Pickerington Methodist HospitalComment on above:Performed By: #### VBG #### [address] [place], [place] [address] Supervisor Special Effects: RUTH Frazierreatinine [Mass/Vol]0.4 mg/dLLow0.50-0.90[facility] Methodist HospitalComment on above:Performed By: #### VBG #### [address] [place], [place] [address]83 Supervisor Special Effects: Loreta Zelaya MDGFR/1.73 sq M.predicted among non-blacks MDRD (S/P/Bld) [Vol rate/Area]mL/min/{1.73_m2}Normal>60[facility] HospitalComment on above:Result Comment: These results are not intended for [...] or following therapy that affects renal tubular secretion.Performed By: #### VBG #### [address] [place], [place] [address]83 Supervisor Special Effects: Loreta Zelaya MDGlucose [Mass/Vol]146 mg/dHGydg02-64Dqziy [facility] HospitalComment on above:Performed By: #### VBG #### [address] [place] [address]83 Supervisor Special Effects: SUZY Frazierotassium [Moles/Vol]3.8 mmol/LNormal3.7-5.3MThe Surgical Hospital at Southwoods HospitalComment on above:Performed By: #### VBG #### [address] [place] [address] Supervisor Special Effects: Loreta Zelaya MDProtein [Mass/Vol]6.0 g/dLLow6.6-8.7[facility] HospitalComment on above:Performed By: #### VBG #### [address] [place], [place] [address] Supervisor Special Effects: Loreta Zelaya MDSodium [Moles/Vol]136 mmol/KTyzygx525-813Egikc [facility] HospitalComment on above:Performed By: #### VBG #### [address] [place] [address] Supervisor Special Effects: Loreta Zelaya MDUrea nitrogen [Mass/Vol]14 mg/dLNormal6-20[facility] HospitalComment on above:Performed By: #### VBG #### [address] [place], [place] [address] Supervisor Special Effects: RUTH Frazieromprehensive Metabolic Panel w/ Reflex to MGon 54-26-8420Wikumve [Mass/Vol]3.6 g/dL3.5 - 5.2 g/dLBon [facility] Medical CenterWittyParrot Albumin/Globulin [Mass ratio]1.5 {ratio}1.0 - 2.5Bon [facility] CenterShort Fuze [facility] HospitalALP [Catalytic activity/Vol]103 U/L35 - 104 U/LBon SecMary Bridge Children's HospitalShort Fuze [facility] HospitalALT [Catalytic activity/Vol]19 U/L10 - 35 U/LBon SecMary Bridge Children's HospitalWittyParrotAnion gap [Moles/Vol]10 mmol/L9 - 16 mmol/LBon SecMary Bridge Children's HospitalShort Fuze [facility] Shriners HospitalAST [Catalytic activity/Vol]13 U/L10 - 35 U/LBon [facility] Medical CenterWittyParrotBilirubin [Mass/Vol]0.2 mg/dL0.00 - 1.20 mg/dLBon [facility] CenterShort Fuze [facility]riners HospitalCalcium [Mass/Vol]8.4 mg/dLLow8.6 - 10.4 mg/dLBon Samaritan HospitalChloride [Moles/Vol]107 mmol/L98 - 107 mmol/LBon Samaritan HospitalCO2 [Moles/Vol]19 mmol/LLow20 - 31 mmol/LBon Samaritan HospitalCreatinine [Mass/Vol]0.4 mg/dLLow0.50 - 0.90 mg/dLBon [facility] PWC Pure Water CorporationEst, Glom Filt Rate- PINFBon Samaritan HospitalComment on above: These results are not intended [...] therapy that affects renal tubular secretion. Glucose [Mass/Vol]146 mg/iFCltn06 - 99 mg/dLBon [facility] CenterWittyParrot Interpretation and review of laboratory resultsAbnormalBon [facility] efw-suhl Potassium [Moles/Vol]3.8 mmol/L3.7 - 5.3 mmol/LBon [facility] [employer] Water CorporationProtein [Mass/Vol]6 g/dLLow6.6 - 8.7 g/dLBon [facility] CenterWittyParrotSodium [Moles/Vol]136 mmol/L136 - 145 mmol/LBon SecSDI-Solution HealthUrea nitrogen [Mass/Vol]14 mg/dL6 - 20 mg/dLBon SecSDI-Solution HealthUrea nitrogen/Creatinine [Mass ratio]35 mg/mg High9 - 20Bon SecTheCityGameEKG 12 Lead (Chest Pain)Ordered By: Mode Coffman on 23-81-8959Amuqlr Mfqf78SRSPqr [employer] Work Phone: P [id number] [employer] Work Phone: P-R [id number] msSychron [employer] Technologies Work Phone: Q-T [id number] msS[employer] Work Phone: QRS Ogkzpshd82 [employer] Work Phone: QTc Calculation (Bazett)474 msDignity Health [facility]ty Hospital [employer] Work Phone: R [id number] Advanced Technologies Work Phone: T [id number] [employer] Work Phone: Ventricular Xooq61DYORms [employer] Work Phone: Bon [employer] Work Phone: EKG 12 Lead (Chest Pain)on 39-00-0547Oguzov sinus rhythm Rightward axis Borderline ECG ECG not diagnostic for Acute Coronary Syndrome; consider clinical findings When compared with ECG of 16-Oct-2024 20:05, QRS axis Shifted right Confirmed by Mode Coffman ([id number]) on 12/21/2024 8:47:09 AMEvans Memorial HospitalMode ha MD - 12/21/2024 Normal sinus rhythm Rightward axis Borderline ECG ECG not diagnostic for Acute Coronary Syndrome; consider clinical findings When compared with ECG of 16-Oct-2024 20:05, QRS axis Shifted right Confirmed by Mode Coffman ([id number]) on 12/21/2024 8:47:09 AM [facility] Americaours Mercy HealthEKG Rhythm Stripon 49-41-1463AFGEKGRANT HOSPITAL LABBon Samaritan HospitalGlucose, Whole Bloodon 23-34-4100Ymfhden [Mass/Vol]264 mg/rTFxel12 - 100 mg/dLBon Samaritan HospitalInterpretation and review of laboratory resultsAbnormalVCU Medical CenterGlucose [Mass/Vol]264 mg/jNExfs81-187AcjuwOhiohealth Pickerington Methodist HospitalGlucose [Mass/Vol]166 mg/fYGbrr33 - 100 mg/dLBon Samaritan HospitalInterpretation and review of laboratory resultsAbnormChildren's Hospital of The King's DaughtersGlucose [Mass/Vol]166 mg/iFCjub89-848MvqrqOhiohealth Pickerington Methodist HospitalGlucose [Mass/Vol]195 mg/nQDllw91 - 100 mg/dLBon Samaritan HospitalInterpretation and review of laboratory resultsAbBlack Hills Medical CenterGlucose [Mass/Vol]195 mg/xOCwll54-827DwzebOhiohealth Pickerington Methodist HospitalUrinalysis w/ Microon 10-00-1867Dpuylxjpc, SemiQt,UrNegativeGood Samaritan Hospital Comment on above:Performed By: #### UAMIC #### [facility] [address] [place] [address] Supervisor Special Effects: Lillian Frazier, UrineNegBrecksville VA / [facility] Comment on above:Performed By: #### UAMIC #### [facility] [address] [place] [address] Supervisor Special Effects: Santi Frazier (ClearNoalCMercy Hospital Comment on above:Performed By: #### UAMIC #### [facility] [address] [place] [address] Supervisor Special Effects: RUTH Frazierfitzgibbon hospital (YellowKettering Health [facility] Comment on above:Performed By: #### UAMIC #### [facility] [address] [place] [address] Supervisor Special Effects: Loreta Zelaya MDEpithelial cells LM Ql (Urine sed)NoneNormal0-25 [facility] HospitalComment on above:Performed By: #### UAMIC #### [address] [place], [place] [id number] Supervisor Special Effects: Loreta Zelaya MDGlucose Ql (U)3+ mg/dLAbnormalNEGSt. Francis Hospital HospitalComment on above:Performed By: #### UAMIC #### [address] [place] [address] Supervisor Special Effects: Loreta Zelaya MDKetones Ql (U)4+ mg/dLAbnormalNEGSt. Francis Hospital HospitalComment on above:Performed By: #### UAMIC #### [address] [place], [facility]83 Supervisor Special Effects: Loreta Zelaya MDLeukocyte esterase Test strip Ql (U)NegativeNormal NEGOhiohealth Pickerington Methodist HospitalComment on above:Performed By: #### UAMIC #### [address] [place] [address] Supervisor Special Effects: Loreta Zelaya MDNitrite,UrNegativeNormalNEGOhiohealth Pickerington Methodist Hospital Comment on above:Performed By: #### UAMIC #### [address] [place], [facility]83 Supervisor Special Effects: SUZY Frazier,Ur6.4Fwrihs1.0-9.0[facility] Methodist HospitalComment on above:Performed By: #### UAMIC #### [address] [place] [address] Supervisor Special Effects: SUZY Frazierrotein Ql (U)NegativeNormalNEGSt. Francis Hospital HospitalComment on above:Performed By: #### UAMIC #### [facility] [address] [place] [address] Dr[place] [phone] Supervisor Special Effects: Cielo Frazier. Abrams,Ur<1.654Hvn4.010-1.020Ohio[facility]ering[facility] Methodist HospitalComment on above:Performed By: #### UAMIC #### [facility] [address] [place] [address] Supervisor Special Effects: Tawny Frazire RBC'sNoneNormal0-2MEast [facility] Comment on above:Performed By: #### UAMIC #### [facility] [address] [place] [address] Supervisor Special Effects: Tawny Frazier WBC'sNoneNormal0-5[facility] Comment on above:Performed By: #### UAMIC #### [facility] [address] [place] [address] [place] [address] Supervisor Special Effects: Loreta Zelaya MDUrobilinogen,UrNormalNormal0.0-1.0[facility] HospitalComment on above:Performed By: #### UAMIC #### [facility] [address] [place] [address] [place] [address] Supervisor Special Effects: Loreta Zelaya MDYeastPRESENCE NOTEDAbnormalNONEMeVeterans Administration Medical CenterComment on above:Performed By: #### UAMIC #### [facility] [address] [place] [address] Dr[address] [place], [place] [id number] Supervisor Special Effects: Loreta Zelaya MDUrinalysis with Microscopicon 47-01-1177Wswauauqv Ql (U)NegativeNEGATIVEBon Secours Mercy HealthClarity (U)ClearClearBon Secours St. [facility] HealthColor (U)YellowYellowBon SecGlenbeigh HospitalEpithelial cells LM.HPF (Urine sed) [#/Area]NoneBon Secours St[facility] HealthGlucose Test strip (U) [Mass/Vol]3+AbnormalNEGATIVE mg/dLBon Secours Highland District Hospitaly [facility] Shriners HospitalHemoglobin Auto test strip Ql (U)NegativeNEGATIVEBon Secours Mercy HealthInterpretation and review of laboratory resultsAbnormalBon Secours Mercy HealthKetones (U) [Mass/Vol]4+ AbnormalNEGATIVE mg/dLBon Secours Mercy HealthLeukocyte esterase Test strip Ql (U)NegativeNEGATIVEBon Secours Mercy HealthNitrite Ql (U)NegativeNEGATIVEBon Secours Mercy HealthpH (U)6 [pH]5.0 - 9.0[facility] HealthProtein (U) [Mass/Vol]NegativeNEGATIVE mg/dLBon Secours Mercy HealthRBC LM.HPF (Urine sed) [#/Area]NoneBon Secours Mercy HealthSpecific gravity (U) [Rel density]Low1.010 - 1.020Bon Secours [facility] HealthUrobilinogen Qn (U)Normal0.0 - 1.0 EU/dLBon Secours Mercy HealthWBC LM.HPF (Urine sed) [#/Area]NoneBon Secours Mercy HealthYeast LM Ql (Urine sed)PRESENCE NOTEDAbnormalNoneBon Secours Mercy HealthBon Secours High[facility] Hospitaly HealthBMPon 85-78-5194Asrhj gap [Moles/Vol]14 mmol/L9 - 16 mmol/LBon Secours Mercy HealthCalcium [Mass/Vol]7.9 mg/dLLow8.6 - 10.4 mg/dLBon Secours Mercy HealthChloride [Moles/Vol]102 mmol/L98 - 107 mmol/LBon Secours Mercy HealthCO2 [Moles/Vol]18 mmol/LLow20 - 31 mmol/LBon Secours Mercy Health Creatinine [Mass/Vol]0.6 mg/dL0.50 - 0.90 mg/dLBon Secours Mercy HealthEst, Glom Filt Rate- PINFBon Secours Highland District Hospitaly HealthComment on above: These results are not intended [...] therapy that affects renal tubular secretion. Glucose [Mass/Vol]370 mg/xRHvwc25 - 99 mg/dLBon SecPEX Card Interpretation and review of laboratory resultsAbnormalBon Samaritan Hospital Potassium [Moles/Vol]4 mmol/L3.7 - 5.3 mmol/LBon Samaritan HospitalSodium [Moles/Vol]134 mmol/YZbt059 - 145 mmol/LBon Samaritan HospitalUrea nitrogen [Mass/Vol]16 mg/dL6 - 20 mg/dLBon Samaritan HospitalUrea nitrogen/Creatinine [Mass ratio]27 mg/mgHigh9 - 20[facility] Basic Metabolic Profon 83-49-3476Exnrr gap [Moles/Vol]14 mmol/LNormal9-16[facility] HospitalComment on above:Performed By: #### BMP #### [facility] [address] [place] [address] Dr[address] [place], [place] [id number] Supervisor Special Effects: Loreta Zelaya MDBUN/CRE Bjxcs75Bgpa6-23WemasOhiohealth Pickerington Methodist Hospital Comment on above:Performed By: #### BMP #### [address] [place], [place] 446[address]83 Supervisor Special Effects: RUTH Frazieralcium [Mass/Vol]7.9 mg/dLLow8.6-10.4[facility] HospitalComment on above:Performed By: #### BMP #### [address] [place] [address] Supervisor Special Effects: RUTH Frazierhloride [Moles/Vol]102 mmol/JOjfngv94-107DdidnOhiohealth Pickerington Methodist HospitalComment on above:Performed By: #### BMP #### [facility] [address] [place] [address] Dr[address] [place], [place] [address] Supervisor Special Effects: Loreta Zelaya MDCO2 [Moles/Vol]18 mmol/XTkx98-73RstzsOhiohealth Pickerington Methodist HospitalComment on above:Performed By: #### BMP #### [facility] [address] [place] [address] [place] [address] Supervisor Special Effects: RUTH Frazierreatinine [Mass/Vol]0.6 mg/dLNormal0.50-0.90[facility] HospitalComment on above:Performed By: #### BMP #### [address] [place] [address] Supervisor Special Effects: Loreta Zelaya MDGFR/1.73 sq M.predicted among non-blacks MDRD (S/P/Bld) [Vol rate/Area]mL/min/{1.73_m2}Normal>60[facility] HospitalComment on above:Result Comment: These results are not intended for [...] or following therapy that affects renal tubular secretion.Performed By: #### BMP #### [address] [place], [facility]83 Supervisor Special Effects: Loreta Zelaya MDGlucose [Mass/Vol]370 mg/lYWkat48-75FnekvEast Ohio Regional HospitalComment on above:Performed By: #### BMP #### [address] [place], [facility]83 Supervisor Special Effects: SUZY Frazierotassium [Moles/Vol]4.0 mmol/LNormal3.7-5.3MEast [facility] Regional HospitalComment on above:Performed By: #### BMP #### [address] [place], [facility]83 Supervisor Special Effects: QUAN Frazierodium [Moles/Vol]134 mmol/TBiv594-143DsbblOhiohealth Pickerington Methodist HospitalComment on above:Performed By: #### BMP #### [address] [place] [address] Supervisor Special Effects: Loreta Zelaya MDUrea nitrogen [Mass/Vol]16 mg/dLNormal6-20[facility] HospitalComment on above:Performed By: #### BMP #### [facility] [address] [place] [address] Supervisor Special Effects: Loreta Zelaya MDBeta Hydroxybutyrateon 56-58-6699Ilnl Hydroxybutyrate3.86 mmol/LHigh0.02-0.27[facility] HospitalComment on above: Performed By: #### INSU #### [facility] [address] [place], [place] 1519[address] Supervisor Special Effects: Gee Royal MD [facility] [address] [place] [address] Supervisor Special Effects: Loreta Zelaya MD #### CPEP #### [facility] [address] [place], [place] 67[address] Supervisor Special Effects: Gee Royal MDBeta-Hydroxybutyrateon 14-26-6316Nfnq hydroxybutyrate [Mass/Vol]3.86 mmol/LHigh0.02 - 0.27 mmol/LBon Samaritan HospitalInterpretation and review of laboratory resultsAbnormChildren's Hospital of The King's DaughtersBlood Gas, Venouson 72-14-7149Gnbpwqti patency Wrist artery --pre arterial punctureNOT APPLICABLECarilion Roanoke Memorial HospitalHCO3 (Bld) [Moles/Vol]17.9 mmol/LLow24.0 - 30.0 mmol/LBon Samaritan Hospital Interpretation and review of laboratory resultsAbnoSentara Williamsburg [facility] Center Negative Base Excess, Ven6.3 mmol/LHigh0.0 - 2.0 mmol/LBon Samaritan Hospital Oxygen gas flow Oxygen delivery systemROOM AIRCarilion Roanoke Memorial HospitalOxygen saturation in Blood83 %60.0 - 85.0 %[facility] Roan[facility] Memorial HospitalOxygen/Inspired gas Respiratory system --on gptremdtsg02Ejt Samaritan HospitalpCO2, Ven32.4LowBon Samaritan HospitalpCO2, Erik, Temp Adj32.4LowBon Samaritan HospitalpH, Erik 7.3617.32 - 7.42[facility] Mercy HealthpH, Erik, Temp Adj7.3617.320 - 7.420[facility] HealthPO2, Ven48.2[facility] HealthpO2, Erik, Temp Adj48.[address] HealthBon Secours [facility] Medical CenterCBC with Auto Differentialon 60-85-3236Uhfjpwvzb (Bld) [#/Vol]0.04 10*3/uLBon Secours St. [facility] Health Basophils/100 WBC (Bld)1 %0 - 2 %[facility] HealthEosinophils (Bld) [#/Vol]0.15 10*3/uLBon Secours St. [facility] Hospital HealthEosinophils/100 WBC (Bld)3 %1 - 4 % [facility] HealthErythrocyte distribution width (RBC) [Ratio]11.6 %Low 11.8 - 14.4 %[facility] HealthHematocrit (Bld) [Volume fraction]46.4 % 36.3 - 47.1 %[facility] SecGlenbeigh HospitalHemoglobin (Bld) [Mass/Vol]15.8 g/dLHigh 11.9 - 15.1 g/dLBon SecGlenbeigh HospitalImmature granulocytes (Bld) [#/Vol][facility] Medical CenterImmature granulocytes/100 WBC (Bld)0 %0Bon SecHood Memorial Hospital HealthInterpretation and review of laboratory resultsAbnormalBon SecGlenbeigh HospitalLymphocytes/100 WBC (Bld)43 %24 - 43 %[facility] Health Lymphocytes/100 WBC (Bld)2.46 %[facility]ra HealthH (RBC) [Entitic mass] 30.5 pg25.2 - 33.5 pgBon SecMercy Health Clermont HospitalHC (RBC) [Mass/Vol]34.1 g/dL28.4 - 34.8 g/dLBon SecMercy Health Clermont HospitalV (RBC) [Entitic vol]89.6 fL82.6 - 102.9 fL [facility] Hospitaly HealthMonocytes/100 WBC (Bld)6 %3 - 12 %[facility] Hospitaly HealthMonocytes/100 WBC (Bld)0.35 %[facility] HealthNeutrophils/100 WBC (Bld)47 %36 - 65 %[facility] Hospitaly HealthNucleated RBC/100 WBC (Bld) [Ratio]0 % 0.0 per 100 WBCCarilion Roanoke Memorial HospitalPlatelet mean volume (Bld) [Entitic vol] 9.8 fL8.1 - 13.5 fLBon Samaritan HospitalPlatelets (Bld) [#/Vol]288 10*3/uLBon Samaritan HospitalRBC (Bld) [#/Vol]5.18 10*6/uLHigh3.95 - 5.11 m/uLBon Samaritan HospitalSegmented neutrophils/100 WBC (Bld)2.7 %Bon Samaritan HospitalWBC other (Bld) [#/Vol]5.7[facility] CBC with Diffon [id number]. Basophil0.04 k/uLNormal0.00-0.20[facility] HospitalComment on above:Performed By: #### INSU #### [place] [address] Supervisor Special Effects: Gee Royal MD [address] [place] [id number] Supervisor Special Effects: Loreta Zelaya MD #### CPEP #### [address] [address] Supervisor Special Effects: Marie Pineda.Imm.Granulocyte<0.04Djfegk3.00-0.30[facility] HospitalComment on above:Performed By: #### INSU #### [address] [address] Supervisor Special Effects: Gee Royal MD [address] [place] [phone] Supervisor Special Effects: Loreta Zelaya MD #### CPEP #### [address] [address] Supervisor Special Effects: MDAbs. EdwinNeutrophil (Seg)2.70 k/uLNormal1.50-8.10 [facility] HospitalComment on above:Performed By: #### INSU #### [address] [address] Supervisor Special Effects: Gee Royal MD [address] [place] [address] Supervisor Special Effects: Loreta Zelaya MD #### CPEP #### [address] [address] Supervisor Special Effects: Gee Royal MDBasophils/100 WBC (Bld)1 %Normal0-2[facility] HospitalComment on above:Performed By: #### INSU #### [address] [address] Supervisor Special Effects: Gee Ryoal MD [address] [place] [phone] Supervisor Special Effects: Loreta Zelaya MD #### CPEP #### [address] [address] Supervisor Special Effects: Gee Royal MDEosinophils (Bld) [#/Vol]0.15 10*3/uLNormal 0.00-0.44[facility] Centercy Midstate Medical CenterComment on above:Performed By: #### INSU #### [address] [address] Supervisor Special Effects: Gee Royal MD [address] [place] [address] Supervisor Special Effects: Loreta Zelaya MD #### CPEP #### [address] [address] Supervisor Special Effects: Gee Royal MDEosinophils/100 WBC (Bld)3 %Normal1-4[facility] HospitalComment on above:Performed By: #### INSU #### [address] [address] Supervisor Special Effects: Gee Royal MD [address] [place] [phone] Supervisor Special Effects: Loreta Zelaya MD #### CPEP #### [address] [address] Supervisor Special Effects: Gee Royal MDErythrocyte distribution width (RBC) [Ratio]11.6 %Low11.8-14.4MerHospital for Special CareComment on above:Performed By: #### INSU #### [address] [address] Supervisor Special Effects: Gee Royal MD [address] [place] [phone] Supervisor Special Effects: Loreta Zelaya MD #### CPEP #### [address] [address] Supervisor Special Effects: Gee Royal MDHematocrit (Bld) [Volume fraction]46.4 %Normal 36.3-47.1Mer[facility] Midstate Medical CenterComment on above:Performed By: #### INSU #### [address] [address] Supervisor Special Effects: Gee Royal MD [address] [place] [phone] Supervisor Special Effects: Loreta Zelaya MD #### CPEP #### [address] [address] Supervisor Special Effects: Gee Royal MDHemoglobin (Bld) [Mass/Vol]15.8 g/dLHigh 11.9-15.1Mer[facility] Midstate Medical CenterComment on above:Performed By: #### INSU #### [address] [address] Supervisor Special Effects: Gee Royal MD [address] [place] [phone] Supervisor Special Effects: Loreta Zelaya MD #### CPEP #### [facility] [address] [place] [address] Supervisor Special Effects: Gee Royal MDImmature granulocytes/100 WBC (Bld)0 %Normal0 [facility] on above:Performed By: #### INSU #### [address] [address] Supervisor Special Effects: Gee Royal MD [address] [place] [address] Supervisor Special Effects: Loreta Zelaya MD #### CPEP #### [address] [address] Supervisor Special Effects: Gee Royal MDLymphocytes (Bld) [#/Vol]2.46 10*3/uLNormal 1.10-3.70[facility] HospitalComformerly [facility] on above:Performed By: #### INSU #### [address] [address] Supervisor Special Effects: Gee Royal MD [address] [place] [address] Supervisor Special Effects: Loreta Zelaya MD #### CPEP #### [address] [address] Supervisor Special Effects: Gee Royal MDLymphocytes/100 WBC (Bld)43 %Jovacs76-52XzaykOhiohealth Pickerington Methodist HospitalComformerly [facility] on above:Performed By: #### INSU #### [facility] [address] [place] [address] Supervisor Special Effects: Gee Royal MD [address] [place] [address] Supervisor Special Effects: Loreta Zelaya MD #### CPEP #### [address] [address] Supervisor Special Effects: MIGUELINA PinedaCH (RBC) [Entitic mass]30.5 yfYomjfg34.2-33.5 [facility] HospitalComment on above:Performed By: #### INSU #### [address] [address] Supervisor Special Effects: Gee Royal MD [address] [place] [phone] Supervisor Special Effects: Loreta Zelaya MD #### CPEP #### [address] [address] Supervisor Special Effects: MIGUELINA PinedaCHC (RBC) [Mass/Vol]34.1 g/rNJkffek46.4-34.8 [facility] HospitalComment on above:Performed By: #### INSU #### [address] [address] Supervisor Special Effects: Gee Royal MD [address] [place] [phone] Supervisor Special Effects: Loreta Zelaya MD #### CPEP #### [address] [address] Supervisor Special Effects: MIGUELINA PinedaCV (RBC) [Entitic vol]89.6 sOCaqkuk13.6-102.9 [facility] HospitalComment on above:Performed By: #### INSU #### [address] [address] Supervisor Special Effects: Gee Royal MD [address] [place] [phone] Supervisor Special Effects: Loreta Zelaya MD #### CPEP #### [address] [address] Supervisor Special Effects: MIGUELINA Pinedaonocytes (Bld) [#/Vol]0.35 10*3/uLNormal 0.10-1.20[facility] HospitalComment on above:Performed By: #### INSU #### [address] [address] Supervisor Special Effects: Gee Royal MD [address] [place] [phone] Supervisor Special Effects: Loreta Zelaya MD #### CPEP #### [address] [address] Supervisor Special Effects: MIGUELINA Pinedaonocytes/100 WBC (Bld)6 %Normal3-12[facility] HospitalComment on above:Performed By: #### INSU #### [address] [address] Supervisor Special Effects: Gee Royal MD [address] [place] [phone] Supervisor Special Effects: Loreta Zelaya MD #### CPEP #### [address] [address] Supervisor Special Effects: Gee Royal MDNeutrophil (Seg)47 %Grjaea58-45NvhnyOhiohealth Pickerington Methodist HospitalComment on above:Performed By: #### INSU #### [address] [address] Supervisor Special Effects: Gee Royal MD [address] [place] [address] Supervisor Special Effects: Loreta Zelaya MD #### CPEP #### [address] [address] Supervisor Special Effects: Gee Royal MDNRBC Automated0.0 per 100 WBCNormal0.0[facility] HospitalComformerly [facility] on above:Performed By: #### INSU #### [address] [address] Supervisor Special Effects: Gee Royal MD [address] [place] [address] Supervisor Special Effects: Loreta Zelaya MD #### CPEP #### [address] [address] Supervisor Special Effects: Helena Pineda mean volume (Bld) [Entitic vol]9.8 fL Normal8.1-13.5[facility] HospitalComment on above:Performed By: #### INSU #### [address] [address] Supervisor Special Effects: Gee Royal MD [address] [place] [phone] Supervisor Special Effects: Loreta Zelaya MD #### CPEP #### [address] [address] Supervisor Special Effects: Luna Pineda (Bld) [#/Vol]288 10*3/uNTasccl873-249 [facility] HospitalComment on above:Performed By: #### INSU #### [address] [address] Supervisor Special Effects: Gee Royal MD [address] [place] [address] Supervisor Special Effects: Loreta Zelaya MD #### CPEP #### [address] [address] Supervisor Special Effects: KEYLA PinedaBC (Bld) [#/Vol]5.18 10*6/uLHigh3.95-5.11[facility] HospitalComformerly [facility] on above:Performed By: #### INSU #### [address] [address] Supervisor Special Effects: Gee Royal MD [address] [place] [phone] Supervisor Special Effects: Loreta Zelaya MD #### CPEP #### [facility] [address] [place] [address] Supervisor Special Effects: Gee Royal MDSUNY DOWNSTATE [facility] (Bld) [#/Vol]5.7 10*3/uLNormal3.5-11.3Muniversity hospitals lake west medical centery Midstate Medical CenterComment on above:Performed By: #### INSU #### [facility] [address] [place] [address] Supervisor Special Effects: Gee Royal MD [facility] [address] [place] [address] Supervisor Special Effects: Loreta Zelaya MD #### CPEP #### [facility] [address] [place] [address] Supervisor Special Effects: Gee Royal [facility] 79-12-4060Qpwgget [Mass/Vol]4.2 g/dL3.5 - 5.2 g/dLBon SecMary Bridge Children's Hospitaly HealthAlbumin/Globulin [Mass ratio]1.4 {ratio}1.0 - 2.5[facility] HealthALP [Catalytic activity/Vol]148 U/LHigh35 - 104 U/L [facility] HealthALT [Catalytic activity/Vol]27 U/L10 - 35 U/LBon Secours Mercy HealthAnion gap [Moles/Vol]19 mmol/LHigh9 - 16 mmol/LBon Secours [facility] HealthAST [Catalytic activity/Vol]19 U/L10 - 35 U/LBon SecMary Bridge Children's Hospitaly Health Comment on above:Specimen hemolysis has exceeded the interference as defined by Kat. Value may be falsely increased. Suggest recollection if clinically indicated. Bilirubin [Mass/Vol]0.3 mg/dL0.00 - 1.20 mg/dLBon Secours Mercy HealthCalcium [Mass/Vol]9.2 mg/dL8.6 - 10.4 mg/dLBon Secours Mercy HealthChloride [Moles/Vol] 92 mmol/LLow98 - 107 mmol/LBon Secours Mercy HealthCO2 [Moles/Vol]19 mmol/LLow20 - 31 mmol/LBon Secours Mercy HealthCreatinine [Mass/Vol]0.6 mg/dL0.50 - 0.90 mg/dLBon [facility] Medical CenterPEX CardEst, Glom Filt Rate- PINFBon Mount [facility] Medical CenterPEX Card Comment on above: These results are not [...] therapy that affects renal tubular secretion. Glucose [Mass/Vol]516 mg/dLCritically high74 - 99 mg/dLBon [facility] Medical CenterPEX Card Interpretation and review of laboratory resultsAbnormalBon [facility] Medical CenterPEX Card Potassium [Moles/Vol]4.8 mmol/L3.7 - 5.3 mmol/LBon [facility] Medical CenterPEX CardComment on above:Specimen hemolysis has exceeded the interference as defined by Kat. Value may be falsely increased. Suggest recollection if clinically indicated. Protein [Mass/Vol]7.2 g/dL6.6 - 8.7 g/dLBon [facility] Medical CenterPEX CardSodium [Moles/Vol]130 mmol/MVud586 - 145 mmol/LBon [facility] Medical CenterPEX CardUrea nitrogen [Mass/Vol]19 mg/dL6 - 20 mg/dLBon [facility] Medical CenterPEX CardUrea nitrogen/Creatinine [Mass ratio]32 mg/mgHigh9 - 20Bon [facility] Medical CenterSDI-Solution [facility]riners HospitalCT HEAD WO CONTRASTon [id number] HEAD WO CONTRASTEXAMINATION: CT OF THE HEAD WITHOUT CONTRAST 12/20/2024 [...] Signed by: Tavo Almonte MD 12/20/24 Final resultNormalMercy Midstate Medical CenterCT Head WO contraston [id number] acute intracranial abnormality. [facility] CONSOLIDATEDEXAMINATION: CT OF THE HEAD WITHOUT CONTRAST 12/20/2024 [...] of the visualized skull or soft tissues. [facility] Tavo Claudio MD - 12/20/2024 EXAMINATION: CT OF THE [...] tissues. IMPRESSION: No acute intracranial abnormality. [facility] HospitalRadiology Study observation (narrative)[facility] [employer] [facility]ers HospitalCT Head WO contrastOrdered By: Tavo Almonte on [id number] [facility] [employer] Work Phone: CTA HEAD NECK W CONTRASTon [id number] HEAD NECK W CONTRASTEXAMINATION: CTA OF THE HEAD AND NECK WITH [...] Signed by: Amaury Khan MD 12/20/24 Final resultNormalMercy Saint Mary's Hospital Head vessels and Neck vessels W contrast Wesley . No evidence of arterial stenosis or occlusion in the head or neck. 2. Diffuse goiter. [facility] CONSOLIDATEDEXAMINATION: CTA OF THE HEAD AND NECK WITH [...] fluid collection. The alexander-white differentiation is maintained. [facility] ZAINASuAmaury ascencio MD - 12/20/2024 EXAMINATION: CTA OF THE [...] head or neck. 2. Diffuse goiter. [facility] HospitalRadiology Study observation (narrative)[facility] HospitalCTA Head vessels and Neck vessels W contrast IVOrdered By: Amaury Khan on 27-17-3771[facility] Work Phone: Comp Metabolic Profon 20-81-8718Mzarxcw [Mass/Vol]4.2 g/dLNormal3.5-5.2[facility] Medical CenterComment on above:Performed By: #### INSU #### [facility] [address] [place] [address] Supervisor Special Effects: Gee Royal MD [address] [place] [address] Supervisor Special Effects: Loreta Zelaya MD #### CPEP #### [facility] [address] [place] [address] Supervisor Special Effects: Gee Royal MDAlbumin/Glob Ratio1.2Hgrwqb1.0-2.5[facility] HospitalComformerly [facility] on above:Performed By: #### INSU #### [address] [address] Supervisor Special Effects: Gee Royal MD [address] [place], [place] 4856383 Supervisor Special Effects: Loreta Zelaya MD #### CPEP #### [address] [address] Supervisor Special Effects: Kumar Pinedaline Plmv471 U/BKigs98-792TxuygOhiohealth Pickerington Methodist HospitalComment on above:Performed By: #### INSU #### [address] [address] Supervisor Special Effects: Gee Royal MD [address] [place] [address] Supervisor Special Effects: Loreta Zelaya MD #### CPEP #### [address] [address] Supervisor Special Effects: SAMANTHA Pineda [Catalytic activity/Vol]27 U/FPkfhol10-51 [facility] HospitalComformerly [facility] on above:Performed By: #### INSU #### [facility] [address] [place] [address] Supervisor Special Effects: Gee Royal MD [address] [place], [place] 7818983 Supervisor Special Effects: Loreta Zelaya MD #### CPEP #### [address] [address] Supervisor Special Effects: Gee Royal MDAnicedrick gap [Moles/Vol]19 mmol/LHigh9-16[facility] HospitalComformerly [facility] on above:Performed By: #### INSU #### [facility] [address] [place] [address] Supervisor Special Effects: Gee Royal MD [facility] [address] [place] [address] [place] [place], [place] 3243883 Supervisor Special Effects: Loreta Zelaya MD #### CPEP #### [address] [address] Supervisor Special Effects: Gee Royal MDAST [Catalytic activity/Vol]19 U/WIpynhc75-61 [facility] HospitalComformerly [facility] on above:Result Comment: Specimen hemolysis has exceeded the interference as defined by Kat. Value may be falsely increased. Suggest recollection if clinically indicated.Performed By: #### INSU #### [address] [address] Supervisor Special Effects: Gee Royal MD [address] [place] [address] Supervisor Special Effects: Loreta Zelaya MD #### CPEP #### [address] [address] Supervisor Special Effects: Gee Royal MDBilirubin [Mass/Vol]0.3 mg/dLNormal0.00-1.20 [facility] HospitalComformerly [facility] on above:Performed By: #### INSU #### [place] [place] [address] Supervisor Special Effects: Gee Royal MD [facility] [address] [place] [address] [place] [place], [place] [address]4883 Supervisor Special Effects: Loreta Zelaya MD #### CPEP #### [address] [address] Supervisor Special Effects: Gee Royal MDBUN/CRE Ordzs39Nolt7-21BotcdOhiohealth Pickering[facility] Hospital Comment on above:Performed By: #### INSU #### [facility] [address] [place] [address] Supervisor Special Effects: Gee Royal MD [facility] [address] [place] [address] [place], [place] 1997983 Supervisor Special Effects: Loreta Zelaya MD #### CPEP #### [address] [address] Supervisor Special Effects: RUTH Pinedaalcium [Mass/Vol]9.2 mg/dLNormal8.6-10.4[facility] HospitalComment on above:Performed By: #### INSU #### [address] [address] Supervisor Special Effects: Gee Royal MD [facility] [address] [place] [address] [place] [phone] Supervisor Special Effects: Loreta Zelaya MD #### CPEP #### [address] [address] Supervisor Special Effects: RUTH Pinedahloride [Moles/Vol]92 mmol/JQwk21-517KlikrOhiohealth Pickerington Methodist HospitalComment on above:Performed By: #### INSU #### [address] [address] Supervisor Special Effects: Gee Royal MD [facility] [address] [place] [address] [place] [phone] Supervisor Special Effects: Loreta Zelaya MD #### CPEP #### [address] [address] Supervisor Special Effects: Gee Royal MDCO2 [Moles/Vol]19 mmol/YRrq91-92EgofqOhiohealth Pickerington Methodist HospitalComment on above:Performed By: #### INSU #### [address] [address] Supervisor Special Effects: Gee Royal MD [address] [place], [place] [phone] Supervisor Special Effects: Loreta Zelaya MD #### CPEP #### [facility] [address] [place] [address] Supervisor Special Effects: RUTH Pinedareatinine [Mass/Vol]0.6 mg/dLNormal0.50-0.90 [facility] HospitalComment on above:Performed By: #### INSU #### [address] [address] Supervisor Special Effects: Gee Royal MD [address] [place], [place] [id number] Supervisor Special Effects: Loreta Zelaya MD #### CPEP #### [address] [address] Supervisor Special Effects: Gee Royal MDGFR/1.73 sq M.predicted among non-blacks MDRD (S/P/Bld) [Vol rate/Area]mL/min/{1.73_m2}Normal>60[facility] HospitalComment on above:Result Comment: These results are not intended for [...] or following therapy that affects renal tubular secretion.Performed By: #### INSU #### [facility] [address] [place] [address] Supervisor Special Effects: Gee Royal MD [address] [place], [place] 2080583 Supervisor Special Effects: Loreta Zelaya MD #### CPEP #### [facility] [address] [place] [address] Supervisor Special Effects: Gee Royal MDGlucose [Mass/Vol]516 mg/dLCritically nomr15-94 [facility] HospitalComment on above:Performed By: #### INSU #### [address] [address] Supervisor Special Effects: Gee Royal MD [address] [place] [address] Supervisor Special Effects: Loreta Zelaya MD #### CPEP #### [address] [address] Supervisor Special Effects: Gee Royal MDPotassium [Moles/Vol]4.8 mmol/LNormal3.7-5.3 [facility] HospitalComment on above:Result Comment: Specimen hemolysis has exceeded the interference as defined by Kat. Value may be falsely increased. Suggest recollection if clinically indicated.Performed By: #### INSU #### [address] [address] Supervisor Special Effects: Gee Royal MD [address] [place] [phone] Supervisor Special Effects: Loreta Zelaya MD #### CPEP #### [address] [address] Supervisor Special Effects: Gee Royal MDProtein [Mass/Vol]7.2 g/dLNormal6.6-8.7[facility] HospitalComment on above:Performed By: #### INSU #### [address] [address] Supervisor Special Effects: Gee Royal MD [facility] [address] [place] [address] [place] [phone] Supervisor Special Effects: Loreta Zelaya MD #### CPEP #### [address] [address] Supervisor Special Effects: Gee Royal MDSodium [Moles/Vol]130 mmol/ARub767-824PhfpvOhiohealth Pickerington Methodist HospitalComment on above:Performed By: #### INSU #### [facility] [address] [place] [address] Supervisor Special Effects: Gee Royal MD [address] [place], [place] 228[address]83 Supervisor Special Effects: Loreta Zelaya MD #### CPEP #### [address] [address] Supervisor Special Effects: Gee Royal MDUrea nitrogen [Mass/Vol]19 mg/dLNormal6-20[facility] HospitalComment on above:Performed By: #### INSU #### [address] [address] Supervisor Special Effects: Gee Royal MD [address] [place] [phone] Supervisor Special Effects: Loreta Zelaya MD #### CPEP #### [address] [address] Supervisor Special Effects: Gee Royal MDGlucose, Whole Bloodon 87-93-2592Cyqbqck [Mass/Vol]458 mg/eNAaga20 - 100 mg/dLBon Samaritan HospitalInterpretation and review of laboratory resultsAbnoLead-Deadwood Regional HospitalGlucose [Mass/Vol]458 mg/sPEalc09-184PqmkfOhiohealth Pickerington Methodist HospitalGlucose [Mass/Vol]506 mg/dLCritically high74 - 100 mg/dLBon Samaritan Hospital Interpretation and review of laboratory resultsAbnormNaval Medical Center PortsmouthGlucose [Mass/Vol]506 mg/dLCritically qgsz62-663ZwcaeOhiohealth Pickerington Methodist HospitalMagnesiumon 55-62-7872Yfndqmhjy [Mass/Vol]2 mg/dL1.6 - 2.6 mg/dL [facility] HospitalMagnesium [Mass/Vol]2.0 mg/dLNormal1.6-2.6MEast Ohio Regional HospitalComment on above:Performed By: #### UOSMO #### [facility] [address] [place] [address] Supervisor Special Effects: Gee Royal MD #### URNA #### [address] [place] [address] Supervisor Special Effects: Loreta Zelaya MDNo Panel Informationon 61-63-8777Pct Samaritan HospitalTroponinon 27-66-8090Mgofsonl I.cardiac High sensitivity method [Mass/Vol]ng/L0 - 14 ng/LBon Samaritan HospitalComformerly [facility] on above:High Sensitivity Troponin values cannot be compared with other Troponin methodologies.Troponin, High Sens<8Kuqmfs9-00ZdgbqNationwide Children's Hospital on above:Result Comment: High Sensitivity Troponin values cannot be compared with other Troponin methodologies.Performed By: #### UOSMO #### [address] [place] [address] Supervisor Special Effects: Gee Royal MD #### URNA #### [address] [place] [address] Supervisor Special Effects: Loreta Zelaya MDVenous Blood Gaseson 80-78-1864Ivhen TestNOT APPLICABLENoBucyrus Community HospitalComformerly [facility] on above:Performed By: #### VBG #### [address] [place] [address] Supervisor Special Effects: Jad Frazier Temp.37.0NormalOhiohealth Pickerington Methodist HospitalComformerly [facility] on above:Performed By: #### VBG #### [facility] [address] [place] [address] [place] [address] Supervisor Special Effects: Loreta Zelaya MDRFLMV503UemmezWhbrcCleveland Clinic Akron General Lodi HospitalComformerly [facility] on above: Performed By: #### VBG #### [facility] [address] [place] [address] [place] [address] Supervisor Special Effects: Loreta Zelaya MDHCO3 (Bld) [Moles/Vol]17.9 mmol/LLow24.0-30.0[facility] HospitalComment on above:Performed By: #### VBG #### [address] [place] [address] Supervisor Special Effects: Loreta Zelaya MDNegative Base Excess6.3 mmol/LHigh0.0-2.0[facility] HospitalComment on above:Performed By: #### VBG #### [address] [place], [place] 1976683 Supervisor Special Effects: Loreta Zelaya MDO2 Device/Flow/%ROOM AIRNormalSt. Francis Hospital HospitalComment on above:Performed By: #### VBG #### [address] [place], [place] 6248583 Supervisor Special Effects: Loreta Zelaya MDOxygen saturation in Blood83.0 %Cqmmbh02.0-85.0 [facility] HospitalComment on above:Performed By: #### VBG #### [address] [place], [place] 3199183 Supervisor Special Effects: Suzy FrazierCO232.4 mm BjYkn28-75Xduhp [facility]iffin HospitalComment on above:Performed By: #### VBG #### [address] [place], [place] 0182683 Supervisor Special Effects: SUZY Frazierco2 Adj'd for Temp.32.4 pmRaAsn49.0-55.0[facility] HospitalComment on above:Performed By: #### VBG #### [address] [place], [place] 7501583 Supervisor Special Effects: Suzy Frazier (Bld)7.361 [pH]Normal7.32-7.42[facility] HospitalComment on above:Performed By: #### VBG #### [address] [place] [address] Supervisor Special Effects: Suzy Frazier Adjst'd for Temp.7.202Debrua3.320-7.420[facility] Methodist HospitalComment on above:Performed By: #### VBG #### [address] [place] [address] Supervisor Special Effects: Suzy FrazierO248.2 mm CrZyaueb98.0-50.0[facility] Comment on above:Performed By: #### VBG #### [address] [place] [address] Supervisor Special Effects: Stephy Frazier Adj'd for Temp.48.2 pwJuMfrlhu88.0-50.0[facility] HospitalComment on above:Performed By: #### VBG #### [address] [place] 0353583 Supervisor Special Effects: JENNIFER Frazier PELVIS COMPLETE NON-OB TRANSABD/TRANSVAG W DOPPLERon 30-19-8164QF PELVIS COMPLETE NON-OB TRANSABD/TRANSVAG W DOPPLER EXAMINATION: [...] Signed by: Trino Cantor MD 12/18/24 Final resultNoCommunity Memorial HospitalI LUMBAR SPINE WO CONTRASTon 12-13-2024 MRI LUMBAR SPINE WO CONTRASTEXAMINATION: MRI OF THE LUMBAR SPINE WITHOUT CONTRAST, [...] Signed by: Chas Vásquez MD 12/13/24 Final resultNoBucyrus Community HospitalXR KNEE LEFT (1-2 VIEWS)on 54-11-3962UC KNEE LEFT (1-2 VIEWS)EXAM: 2 VIEWS XRAY OF THE LEFT KNEE [...] Signed by: Emiliano Tran MD 12/10/24 Final resultNormalMerHospital for Special CareXR Knee - left 1 or 2 Viewson 12-10-2024 1. No acute findings. 2. Mild loss of joint space in the medial and lateral compartments compatible with degenerative change. [facility] CONSOLIDATEDEXAM: 2 VIEWS XRAY OF THE LEFT KNEE 12/08/2024 03:01:50 PM COMPARISON: None available. CLINICAL HISTORY: Acute pain of left knee. FINDINGS: BONES AND JOINTS: No acute fracture. No focal osseous lesion. No joint dislocation. No significant joint effusion. Mild loss of joint space in the medial and lateral compartments compatible with degenerative change. SOFT TISSUES: The soft tissues are unremarkable. [facility] Emiliano Andrade MD - 12/10/2024 EXAM: 2 VIEWS XRAY [...] lateral compartments compatible with degenerative change. [facility] HospitalXR Knee - left 1 or 2 ViewsOrdered By: Emiliano Tran on 62-49-3030[facility] Work Phone: HIV Ag/Abon 18-19-1292CFJ Ag/AbNon-ReactiveNormalTriHealth Good Samaritan HospitalComment on above:Result Comment: No laboratory evidence of HIV infection. If acute HIV infection is suspected, consider testing for HIV-1 RNA.Performed By: #### INSU #### [facility] [employer] [address] [place] [address] Supervisor Special Effects: Gee Royal MD [facility] [address] [place] [address] Supervisor Special Effects: Loreta Zelaya MD #### CPEP #### [address] [address] Supervisor Special Effects: Toshia Pineda [facility] 02-81-5473Osl A Ab,IgM Non-ReactiveNormalGuernsey Memorial HospitalComment on above:Performed By: #### INSU #### [address] [address] Supervisor Special Effects: Gee Royal MD [facility] [address] [place] [address] [place] [place], [place] 3774483 Supervisor Special Effects: Loreta Zelaya MD #### CPEP #### [address] [address] Supervisor Special Effects: Amna Pineda Core Ab,IgMNon-ReactiveMemorial Health System [facility] Hospital HospitalComment on above:Performed By: #### INSU #### [address] [address] Supervisor Special Effects: Gee Royal MD [address] [place], [place] 1293983 Supervisor Special Effects: Loreta Zelaya MD #### CPEP #### [address] [address] Supervisor Special Effects: Amna Pineda B Surf AgNon-ReactiveMemorial Health System Selby General Hospital HospitalComment on above:Performed By: #### INSU #### [address] [address] Supervisor Special Effects: Gee Royal MD [address] [place], [place] 8363983 Supervisor Special Effects: Loreta Zelaya MD #### CPEP #### [address] [address] Supervisor Special Effects: Gee Madoff, MDHep C AbNon-ReactiveNoOur Lady of Mercy Hospital - AndersonComment on above:Result Comment: The hepatitis C procedure used in [...] is recommended by ordering HCV RNA by PCR.Performed By: #### INSU #### [address] [address] Supervisor Special Effects: Gee Royal MD [address] [place] 9972083 Supervisor Special Effects: Loreta Zelaya MD #### CPEP #### [address] [address] Supervisor Special Effects: SUZY Pinedarolactinon 42-44-3530Kxxmcqniz5.51 ng/mLLow 4.79-23.3[facility] Medical CenterComment on above:Result Comment: The presence of macroprolactin may cause interference in female patients with various endocrinological diseases or during .Performed By: #### INSU #### [address] [address] Supervisor Special Effects: Gee Royal MD [address] [place] [phone] Supervisor Special Effects: Loreta Zelaya MD #### CPEP #### [address] [address] Supervisor Special Effects: Gee Royal MDT.pallidum Ab Screenon 12-09-2024T.pallidum Ab ScreenNon-ReactiveTriHealth Good Samaritan HospitalComment on above:Result Comment: T. pallidum antibodies are not detected. There is no serological evidence of infection with T. pallidum (early primary syphilis cannot be excluded). Retest in 2-4 weeks if syphilis is clinically suspect.Performed By: #### INSU #### [address] [place] [address] Supervisor Special Effects: Gee Royal MD [facility] [address] [place] [address] Supervisor Special Effects: Loreta Zelaya MD #### CPEP #### [facility] [address] [place] [address] Supervisor Special Effects: Gee Royal MDUS THYROIDon 18-64-9598MJ THYROIDEXAMINATION: THYROID ULTRASOUND 12/08/2024 COMPARISON: None. TECHNIQUE: Real-time and color flow sonographic images were obtained using a linear transducer. [id number]. HISTORY: F 49 y/o old. ORDERING SYSTEM [...] (2) 2. Echogenicity: Isoechoic (1) 3. Shape: Oabkr-ejyv-kdbk (0) 4. Margins: Ill-defined (0) 5. Echogenic [...] Signed by: Brandt Kirk DO 12/08/24 Final resultNormalMercy Luc PostUS Thyroid glandon . 16 mm TI- RADS 3 nodule left thyroid lobe for which [...] more than four nodules should be followed. [facility] RIS CONSOLIDATEDEXAMINATION: THYROID ULTRASOUND 12/08/2024 COMPARISON: None. TECHNIQUE: Real-time and color flow sonographic images were obtained using a linear transducer. [id number]. HISTORY: F 49 y/o old. ORDERING SYSTEM [...] (2) 2. Echogenicity: Isoechoic (1) 3. Shape: Rdffb-orzg-umzm (0) 4. Margins: Ill-defined (0) 5. Echogenic foci: None (0) ACR TI-RADS total points: 3 ACR TI-RADS risk category: TR3 Soft tissues: No visualized lymphadenopathy MHPN RIS Brandt Helton, DO - 12/08/2024 EXAMINATION: THYROID ULTRASOUND 12/08/2024 COMPARISON: None. TECHNIQUE: Real-time and color flow sonographic images were obtained using a linear transducer. [id number]. HISTORY: F 49 y/o old. ORDERING SYSTEM [...] (2) 2. Echogenicity: Isoechoic (1) 3. Shape: Fsnii-hrhf-plxh (0) 4. Margins: Ill-defined (0) 5. Echogenic [...] more than four nodules should be followed. [employer] TechnologiesRadiology Study observation (narrative)[employer] Thyroid glandOrdered By: Brandt Kirk on 26-50-0605[employer] Work Phone: xr Knee - left 1 or 2 Viewson 86-63-3003Raaybahtl Study observation (narrative)[employer] Advanced TechnologiesCHLAMYDIA/GC BY PCR IMELDA SWABon 83-97-2858HUANICWDT/GC BY PCR IMELDA SWABCHLAMYDIA DNA(PCR) Negative Chlamydia trachomatis not detected by nucleic acid amplification. This does not exclude the possibility of infection because results are dependent on adequate specimen collection. GONORRHOEAE DNA(PCR) Negative Neisseria gonorrhoeae not detected by nucleic acid amplification. This does not exclude the possibility of infection because results are dependent on adequate specimen collection.[facility] Ambulatory PPGComment on above: Performed By: #### CGS #### [facility] ([facility]) [address] [place] [address] VIRVAGINITIS PANEL PCRon [id number] PANEL PCRBACT. VAGINOSIS DNA Not Detected Qualitative results are [...] studies show between 8-20% Fluconazole resistance for Candidaglabrata. TRICHOMONAS VAG DNA Not Detected No Trichomonas vaginalis detected. BD MAX Vaginal Panel has not been evaluated for patients under 18 years old. Results for these patients should be reviewed and assessed in accordance with clinical presentation to determine patient diagnosis.[facility] Ambulatory PPGComment on above:Performed By: #### VPPCR #### [facility] ([facility]) [address] [place] [address] VIRAlbumin/Creat Ratio, Urineon 89-78-3530Havcbpl,conc.[place] U <76Hcoifx5-24KfovtHospital for Special CareComment on above:Performed By: #### CDP #### [facility] [address] [place] [address] Supervisor Special Effects: Loreta Zelaya MDAlbumin/Creat RatioCan not be calculatedNormal 0.0-25.0[facility] HospitalComment on above:Performed By: #### CDP #### [facility] [address] [place] [address] Supervisor Special Effects: Loreta Zelaya MDCreatinine Conc.15.9 mg/dLLow28.0-217.0[facility] HospitalComment on above:Result Comment: Reference range defined for 1st morning urinePerformed By: #### CDP #### [facility] [address] [place] [address] [place] [address] Supervisor Special Effects: Loreta Zelaya MDAlbumin/Creatinine Ratio, Urineon 11-14-2024 Albumin DL <= 20 mg/L (U) [Mass/Vol]mg/L0 - 20 mg/LBon Samaritan Hospital Albumin/Creatinine DL <= 20 mg/L (U) [Ratio]Can not be calculatedBon Samaritan HospitalCreatinine (U) [Mass/Vol]15.9 mg/dLLow28.0 - 217.0 mg/dLBon Samaritan HospitalComformerly [facility] on above:Reference range defined for 1st morning urine Interpretation and review of laboratory resultsAbnormalBon Samaritan Hospital Bon Samaritan HospitalCBC with Auto Differentialon 67-41-2830Omenazhez (Bld) [#/Vol]0.03 10*3/uLBon Samaritan HospitalBasophils/100 WBC (Bld)1 %0 - 2 %[facility] HealthEosinophils (Bld) [#/Vol]0.08 10*3/uLBon [facility] HealthEosinophils/100 WBC (Bld)2 %1 - 4 %[facility] HealthErythrocyte distribution width (RBC) [Ratio]11.9 %11.8 - 14.4 %[facility] Hematocrit (Bld) [Volume fraction]41.4 %36.3 - 47.1 %Bon [facility] Health Hemoglobin (Bld) [Mass/Vol]13.7 g/dL11.9 - 15.1 g/dLBon SecGlenbeigh Hospital Immature granulocytes (Bld) [#/Vol][facility] CenterImmature granulocytes/100 WBC (Bld)0 %0[facility] CenterLymphocytes/100 WBC (Bld) 29 %24 - 43 %Bon SecGlenbeigh HospitalLymphocytes/100 WBC (Bld)1.41 %Bon [facility] HospitalH (RBC) [Entitic mass]32.7 pg25.2 - 33.5 pgBon SecMercy Health Clermont HospitalHC (RBC) [Mass/Vol]33.1 g/dL28.4 - 34.8 g/dLBon SecGlenbeigh HospitalMCV (RBC) [Entitic vol]98.8 fL82.6 - 102.9 fLBon SecHood Memorial Hospital HealthMonocytes/100 WBC (Bld)6 %3 - 12 %[facility] HealthMonocytes/100 WBC (Bld)0.31 %Bon SecGlenbeigh HospitalNeutrophils/100 WBC (Bld)62 %36 - 65 %Bon SecGlenbeigh HospitalNucleated RBC/100 WBC (Bld) [Ratio]0 %0.0 per 100 WBCBon SecHood Memorial Hospital HealthPlatelet mean volume (Bld) [Entitic vol]9.8 fL8.1 - 13.5 fLBon SecHood Memorial Hospital HealthPlatelets (Bld) [#/Vol]335 10*3/uLBon Secours St. [facility] HealthRBC (Bld) [#/Vol]4.19 10*6/uL3.95 - 5.11 m/uLBon Samaritan HospitalSegmented neutrophils/100 WBC (Bld)3 %[facility] HospitalWBC other (Bld) [#/Vol]4.9 [facility]CU Medical CenterCB with Diffon 20-27-4980Wws. Basophil0.03 k/uLNormal0.00-0.20MerMercy Health St. [facility] HospitalComment on above:Performed By: #### CDP #### [facility] [address] [place] [address] [place] [address] Supervisor Special Effects: MDAbs. KarinImm.Granulocyte<0.53Gpxynw5.00-0.30MerMercy Health St[facility]'s [facility] HospitalComment on above:Performed By: #### CDP #### [address] [place] [address] Supervisor Special Effects: MDAbs. KarinNeutrophil (Seg)3.00 k/uLNormal1.50-8.10[facility] HospitalComment on above:Performed By: #### CDP #### [address] [place] [address] Supervisor Special Effects: Loreta Zelaya MDBasophils/100 WBC (Bld)1 %Normal0-2[facility] HospitalComment on above:Performed By: #### CDP #### [address] [place] [address] Supervisor Special Effects: Loreta Zelaya MDEosinophils (Bld) [#/Vol]0.08 10*3/uLNormal 0.00-0.44[facility] HospitalComment on above:Performed By: #### CDP #### [address] [place] [address] Supervisor Special Effects: FARIBA Frazierosinophils/100 WBC (Bld)2 %Normal1-4MerMercy Health [facility] HospitalComment on above:Performed By: #### CDP #### [address] [place], [place] [id number] Supervisor Special Effects: Loreta Zelaya MDErythrocyte distribution width (RBC) [Ratio]11.9 % Pvrdbc78.8-14.4[facility] HospitalComment on above:Performed By: #### CDP #### [address] [place], [place] [id number] Supervisor Special Effects: Loreta Zelaya MDHematocrit (Bld) [Volume fraction]41.4 %Normal 36.3-47.1MThe [facility] HospitalComment on above:Performed By: #### CDP #### [address] [place], [place] 4973983 Supervisor Special Effects: Loreta Zelaya MDHemoglobin (Bld) [Mass/Vol]13.7 g/dLNormal 11.9-15.1MThe [facility] HospitalComment on above:Performed By: #### CDP #### [address] [place], [place] 9[address]9083 Supervisor Special Effects: Loreta Zelaya MDImmature granulocytes/100 WBC (Bld)0 %Brrhqu7Tztvw [facility] HospitalComment on above:Performed By: #### CDP #### [address] [place], [place] [id number] Supervisor Special Effects: Loreta Zelaya MDLymphocytes (Bld) [#/Vol]1.41 10*3/uLNormal 1.10-3.70[facility] HospitalComment on above:Performed By: #### CDP #### [address] [place], [place] [id number] Supervisor Special Effects: Luciana Fraziermphocytes/100 WBC (Bld)29 %Idlabt08-00Eygno [facility] HospitalComment on above:Performed By: #### CDP #### [address] [place], [place] [id number] Supervisor Special Effects: MIGUELINA FrazierCH (RBC) [Entitic mass]32.7 diIqbxzm01.2-33.5 [facility] HospitalComment on above:Performed By: #### CDP #### [address] [place], [place] [id number] Supervisor Special Effects: MIGUELINA FrazierCHC (RBC) [Mass/Vol]33.1 g/aOXgmnul73.4-34.8[facility] HospitalComment on above:Performed By: #### CDP #### [address] [place], [place] [id number] Supervisor Special Effects: MIGUELINA FrazierCV (RBC) [Entitic vol]98.8 vZPteeow49.6-102.9 [facility] HospitalComment on above:Performed By: #### CDP #### [address] [place], [place] [id number] Supervisor Special Effects: MIGUELINA Frazieronocytes (Bld) [#/Vol]0.31 10*3/uLNormal0.10-1.20 [facility] HospitalComment on above:Performed By: #### CDP #### [address] [place] [address] Supervisor Special Effects: MIGUELINA Frazieronocytes/100 WBC (Bld)6 %Normal3-12[facility] HospitalComment on above:Performed By: #### CDP #### [address] [place] [address] Supervisor Special Effects: Loreta Zelaya MDNeutrophil (Seg)62 %Avoclu63-95MkguqOhiohealth Pickerington Methodist HospitalComment on above:Performed By: #### CDP #### [address] [place], [place] 8773783 Supervisor Special Effects: Loreta Zelaya MDNRBC Automated0.0 per 100 WBCNormal0.0[facility] HospitalComment on above:Performed By: #### CDP #### [address] [place] [address] Supervisor Special Effects: Helena Frazier mean volume (Bld) [Entitic vol]9.8 fL Normal8.1-13.5[facility] HospitalComment on above:Performed By: #### CDP #### [address] [place] [address] Supervisor Special Effects: Luna Frazier (Bld) [#/Vol]335 10*3/nETpaptg082-193 [facility] HospitalComment on above:Performed By: #### CDP #### [address] [place] [address] Supervisor Special Effects: KEYLA FrazierBC (Bld) [#/Vol]4.19 10*6/uLNormal3.95-5.11[facility] Centercy [facility] HospitalComment on above:Performed By: #### CDP #### [address] [place] [address] Supervisor Special Effects: CRUZITO FrazierBC (Bld) [#/Vol]4.9 10*3/uLNormal3.5-11.3[facility] HospitalComment on above:Performed By: #### CDP #### [address] [place] [address] Supervisor Special Effects: RUTH Frazieromp Metabolic Profon [id number] [Mass/Vol] 4.4 g/dLNormal3.5-5.2[facility] HospitalComment on above:Performed By: #### VBG #### [address] [place] [address] Supervisor Special Effects: Loreta Zelaya MDAlbumin/Glob Ratio1.7Tycmrs7.0-2.5[facility] HospitalComment on above:Performed By: #### VBG #### [facility] [address] [place] [address] [place] [address] Supervisor Special Effects: Reny Frazier Eclt722 U/GAsuc95-437TjddoOhiohealth Pickerington Methodist HospitalComment on above:Performed By: #### VBG #### [facility] [address] [place] [address] [place] [address] Supervisor Special Effects: Loreta Zelaya MDALT [Catalytic activity/Vol]24 U/JQubwbr42-25NnxweOhiohealth Pickerington Methodist HospitalComment on above:Performed By: #### VBG #### [address] [place] [address] Supervisor Special Effects: Loreta Zelaya MDAnion gap [Moles/Vol]13 mmol/LNormal9-16[facility] HospitalComment on above:Performed By: #### VBG #### [address] [place] [address] Supervisor Special Effects: Loreta Zelaya MDAST [Catalytic activity/Vol]18 U/LXvoxie37-93RibuyOhiohealth Pickerington Methodist HospitalComment on above:Performed By: #### VBG #### [address] [place] [address] Supervisor Special Effects: Loreta Zelaya MDBilirubin [Mass/Vol]mg/dLNormal0.00-1.20[facility] HospitalComment on above:Performed By: #### VBG #### [facility] [address] [place] [address] [place] [address] Supervisor Special Effects: Loreta Zelaya MDBUN/CRE Adunq88Fnwt4-59VywwsOhiohealth Pickerington Methodist Hospital Comment on above:Performed By: #### VBG #### [facility] [address] [place] [address] [place] [address] Supervisor Special Effects: RUTH Frazieralcium [Mass/Vol]9.4 mg/dLNormal8.6-10.4[facility] HospitalComment on above:Performed By: #### VBG #### [address] [place], [place] [id number] Supervisor Special Effects: RUTH Frazierhloride [Moles/Vol]95 mmol/LGoa41-467UfdebOhiohealth Pickerington Methodist HospitalComment on above:Performed By: #### VBG #### [address] [place], [place] 8644483 Supervisor Special Effects: Loreta Zelaya MDCO2 [Moles/Vol]25 mmol/GDekeqq36-62BtjwwOhiohealth Pickerington Methodist HospitalComment on above:Performed By: #### VBG #### [address] [place] [address] Supervisor Special Effects: RUTH Frazierreatinine [Mass/Vol]0.6 mg/dLNormal0.50-0.90[facility] HospitalComment on above:Performed By: #### VBG #### [address] [place], [place] [id number] Supervisor Special Effects: Loreta Zelaya MDGFR/1.73 sq M.predicted among non-blacks MDRD (S/P/Bld) [Vol rate/Area]mL/min/{1.73_m2}Normal>60[facility] HospitalComment on above:Result Comment: These results are not intended for [...] or following therapy that affects renal tubular secretion.Performed By: #### VBG #### [address] [place] [address] Supervisor Special Effects: Loreta Zelaya MDGlucose [Mass/Vol]605 mg/dLCritically wwjd59-29 [facility] HospitalComment on above:Performed By: #### VBG #### [address] [place] [address] Supervisor Special Effects: SUZY Frazierotassium [Moles/Vol]4.7 mmol/LNormal3.7-5.3MercEast [facility] Regional Hospital HospitalComment on above:Result Comment: Specimen hemolysis has exceeded the interference as defined by Kat. Value may be falsely increased. Suggest recollection if clinically indicated.Performed By: #### VBG #### [address] [place] [address] Supervisor Special Effects: SUZY Frazierrotein [Mass/Vol]7.1 g/dLNormal6.6-8.7[facility] HospitalComment on above:Performed By: #### VBG #### [address] [place], [place] 452[address]83 Supervisor Special Effects: QUAN Frazierodium [Moles/Vol]133 mmol/XSxw100-537UxqkxOhiohealth Pickerington Methodist HospitalComment on above:Performed By: #### VBG #### [address] [place], [place] 2008083 Supervisor Special Effects: Loreta Zelaya MDUrea nitrogen [Mass/Vol]21 mg/dLHigh6-20[facility] HospitalComment on above:Performed By: #### VBG #### [address] [place] [address] Supervisor Special Effects: RUTH Frazieromprehensive Metabolic Panelon [id number] [Mass/Vol]4.4 g/dL3.5 - 5.2 g/dLBon Samaritan HospitalAlbumin/Globulin [Mass ratio]1.6 {ratio}1.0 - 2.5Bon Samaritan HospitalALP [Catalytic activity/Vol] 224 U/LHigh35 - 104 U/LBon Secours Mercy HealthALT [Catalytic activity/Vol]24 U/L10 - 35 U/LBon Samaritan HospitalAnion gap [Moles/Vol]13 mmol/L9 - 16 mmol/LBon Samaritan HospitalAST [Catalytic activity/Vol]18 U/L10 - 35 U/LBon Samaritan HospitalBilirubin [Mass/Vol]mg/dL0.00 - 1.20 mg/dLBon Samaritan HospitalCalcium [Mass/Vol]9.4 mg/dL8.6 - 10.4 mg/dLBon Samaritan Hospital Chloride [Moles/Vol]95 mmol/LLow98 - 107 mmol/LBon Samaritan HospitalCO2 [Moles/Vol]25 mmol/L20 - 31 mmol/LBon Samaritan HospitalCreatinine [Mass/Vol] 0.6 mg/dL0.50 - 0.90 mg/dLBon Samaritan HospitalEst, Glom Filt Rate- PINFBon St. John of God Hospitalment on above: These results are not intended [...] therapy that affects renal tubular secretion. Glucose [Mass/Vol]605 mg/dLCritically high74 - 99 mg/dLBon Samaritan Hospital Interpretation and review of laboratory resultsAbnormalCarilion Roanoke Memorial Hospital Potassium [Moles/Vol]4.7 mmol/L3.7 - 5.3 mmol/LBon Samaritan HospitalComment on above:Specimen hemolysis has exceeded the interference as defined by Kat. Value may be falsely increased. Suggest recollection if clinically indicated. Protein [Mass/Vol]7.1 g/dL6.6 - 8.7 g/dLBon Samaritan HospitalSodium [Moles/Vol]133 mmol/CVte415 - 145 mmol/LBon Samaritan HospitalUrea nitrogen [Mass/Vol]21 mg/dLHigh6 - 20 mg/dLBon Samaritan HospitalUrea nitrogen/Creatinine [Mass ratio]35 mg/mgHigh9 - 20Bon Samaritan HospitalBon Samaritan HospitalC-Peptideon [id number]-Peptide0.2 ng/mLLow1.1-4.4[facility] HospitalComment on above:Performed By: #### INSU #### [facility] [address] [place] [address] Supervisor Special Effects: Gee Royal MD [facility] [address] [place] [address] Supervisor Special Effects: Loreta Zelaya MD #### CPEP #### [facility] [address] [place], [place] [phone] Supervisor Special Effects: Gee Royal [facility] auto differentialon [id number] (Bld) [#/Vol]0.04 10*3/uLBon Samaritan HospitalBasophils/100 WBC (Bld)1 %0 - 2 %[facility] HospitalEosinophils (Bld) [#/Vol]0.1 10*3/uLBon Samaritan HospitalEosinophils/100 WBC (Bld)2 %1 - 4 %[facility] HospitalErythrocyte distribution width (RBC) [Ratio]13.6 %11.8 - 14.4 %[facility] Hematocrit (Bld) [Volume fraction]36.9 %36.3 - 47.1 %[facility] Hemoglobin (Bld) [Mass/Vol]11.8 g/dLLow11.9 - 15.1 g/dLBon Samaritan Hospital Immature granulocytes (Bld) [#/Vol][facility] HospitalImmature granulocytes/100 WBC (Bld)1 %Dbsp4BmuCarilion Roanoke Memorial HospitalInterpretation and review of laboratory resultsAbnormalBon Samaritan HospitalLymphocytes/100 WBC (Bld)39 %24 - 43 %[facility] HospitalLymphocytes/100 WBC (Bld)1.62 %Cent[facility] HealthH (RBC) [Entitic mass]33.1 pg25.2 - 33.5 pgCentra HealthHC (RBC) [Mass/Vol]32 g/dL28.4 - 34.8 g/dLBon Samaritan Hospital MCV (RBC) [Entitic vol]103.4 iUVqkp96.6 - 102.9 fLCarilion Roanoke Memorial Hospital Monocytes/100 WBC (Bld)11 %3 - 12 %[facility] HospitalMonocytes/100 WBC (Bld)0.47 %[facility] HospitalNeutrophils/100 WBC (Bld)46 %36 - 65 %[facility] HospitalNucleated RBC/100 WBC (Bld) [Ratio]0 %0.0 per 100 WBCCarilion Roanoke Memorial HospitalPlatelet mean volume (Bld) [Entitic vol]10 fL8.1 - 13.5 fL [facility] HospitalPlatelets (Bld) [#/Vol]256 10*3/uLBon Samaritan HospitalRBC (Bld) [#/Vol]3.57 10*6/uLLow3.95 - 5.11 m/uLCarilion Roanoke Memorial Hospital Segmented neutrophils/100 WBC (Bld)1.91 %[facility] HospitalWBC other (Bld) [#/Vol]4.2Bon [facility]uel County Memorial HospitalCBC with Diffon [id number]. Basophil0.04 k/uLNormal0.00-0.20MerMercy Health St[facility] HospitalComment on above:Performed By: #### UAMIC #### [address] [place] [id number] Supervisor Special Effects: Marie Frazier.Imm.Granulocyte<0.40Eitqks6.00-0.30MerMercy Health St[facility] HospitalComment on above:Performed By: #### UAMIC #### [address] [place] 280[address]83 Supervisor Special Effects: Marie Frazier.Neutrophil (Seg)1.91 k/uLNormal1.50-8.10[facility] HospitalComment on above:Performed By: #### UAMIC #### [address] [place] [address] Supervisor Special Effects: Loreta Zelaya MDBasophils/100 WBC (Bld)1 %Normal0-2MercEast [facility] Regional Hospital HospitalComment on above:Performed By: #### UAMIC #### [address] [place] [address]83 Supervisor Special Effects: Loreta Zelaya MDEosinophils (Bld) [#/Vol]0.10 10*3/uLNormal 0.00-0.44[facility] HospitalComment on above:Performed By: #### UAMIC #### [address] [place] [address] Supervisor Special Effects: FARIBA Frazierosinophils/100 WBC (Bld)2 %Normal1-4[facility] HospitalComment on above:Performed By: #### UAMIC #### [address] [place] [address] Supervisor Special Effects: Loreta Zelaya MDErythrocyte distribution width (RBC) [Ratio]13.6 % Kwmwen62.8-14.4[facility] HospitalComment on above:Performed By: #### UAMIC #### [address] [place] [address] Supervisor Special Effects: Loreta Zelaya MDHematocrit (Bld) [Volume fraction]36.9 %Normal 36.3-47.1MThe [facility] HospitalComment on above:Performed By: #### UAMIC #### [address] [place] [address] Supervisor Special Effects: Loreta Zelaya MDHemoglobin (Bld) [Mass/Vol]11.8 g/dLLow11.9-15.1 [facility] HospitalComment on above:Performed By: #### UAMIC #### [address] [place] [phone] Supervisor Special Effects: Yves Frazier granulocytes/100 WBC (Bld)1 %Vnuy3KdniyOhiohealth Pickerington Methodist HospitalComment on above:Performed By: #### UAMIC #### [address] [place], [place] 028[address]83 Supervisor Special Effects: Luciana Fraziermphocytes (Bld) [#/Vol]1.62 10*3/uLNormal 1.10-3.70[facility] HospitalComment on above:Performed By: #### UAMIC #### [address] [place] [address] Supervisor Special Effects: Luciana Fraziermphocytes/100 WBC (Bld)39 %Qbbekc74-58XvshzOhiohealth Pickerington Methodist HospitalComment on above:Performed By: #### UAMIC #### [address] [place], [facility]83 Supervisor Special Effects: MIGUELINA FrazierCH (RBC) [Entitic mass]33.1 njEoeyof31.2-33.5 [facility] HospitalComment on above:Performed By: #### UAMIC #### [address] [place], [place] 3548283 Supervisor Special Effects: MIGUELINA FrazierCHC (RBC) [Mass/Vol]32.0 g/fDIbvloq70.4-34.8[facility] HospitalComment on above:Performed By: #### UAMIC #### [address] [place], [place] 0251483 Supervisor Special Effects: MIGUELINA FrazierCV (RBC) [Entitic vol]103.4 lXTzkf71.6-102.9[facility] HospitalComment on above:Performed By: #### UAMIC #### [address] [place] [address] Supervisor Special Effects: MIGUELINA Frazieronocytes (Bld) [#/Vol]0.47 10*3/uLNormal0.10-1.20 [facility] HospitalComment on above:Performed By: #### UAMIC #### [facility] [address] [place], [place] [id number] Supervisor Special Effects: MIGUELINA Frazieronocytes/100 WBC (Bld)11 %Normal3-12[facility] HospitalComment on above:Performed By: #### UAMIC #### [facility] [address] [place] [address] [address] [place], [place] [address] Supervisor Special Effects: Loreta Zelaya MDNeutrophil (Seg)46 %Hlsyee25-10Rynkq [facility] HospitalComment on above:Performed By: #### UAMIC #### [address] [place], [place] [id number] Supervisor Special Effects: Loreta Zelaya MDNRGABRIELA Automated0.0 per [address] HospitalComment on above:Performed By: #### UAMIC #### [address] [place], [facility]83 Supervisor Special Effects: Helena Frazier mean volume (Bld) [Entitic vol]10.0 fL Normal8.1-13.5[facility] HospitalComment on above:Performed By: #### UAMIC #### [address] [place], [place] [address] Supervisor Special Effects: Jamel Fraziertezach (Bld) [#/Vol]256 10*3/iBWzsruu358-977 [facility] HospitalComment on above:Performed By: #### UAMIC #### [address] [place], [place] 4486383 Supervisor Special Effects: KEYLA FrazierBC (Bld) [#/Vol]3.57 10*6/uLLow3.95-5.11[facility] HospitalComment on above:Performed By: #### UAMIC #### [facility] [address] [place] [address] Supervisor Special Effects: CRUZITO FrazierBC (d) [#/Vol]4.2 10*3/uLNormal3.5-11.3[facility] HospitalComment on above:Performed By: #### UAMIC #### [address] [place], [place] 6599583 Supervisor Special Effects: RUTH Frazieruintah basin medical center Metabolic Pr/rfx MGon 73-54-4317Znminss [Mass/Vol]2.9 g/dLLow3.5-5.2[facility] HospitalComment on above:Performed By: #### UAMIC #### [address] [place], [place] 3990683 Supervisor Special Effects: Loreta Zelaya MDAlbumin/Glob Ratio1.8Yhkqdh6.0-2.5MerMercy Health [facility] HospitalComment on above:Performed By: #### UAMIC #### [address] [place], [place] 4995083 Supervisor Special Effects: Reny Frazier Phos82 U/RNepetq24-991Setag [facility] HospitalComment on above:Performed By: #### UAMIC #### [address] [place] [address] Supervisor Special Effects: Loreta Zelaya MDALT [Catalytic activity/Vol]37 U/BVnpm50-65Bceum [facility] HospitalComment on above:Performed By: #### UAMIC #### [facility] [address] [place] [address] [place] [address] Supervisor Special Effects: Hetal Frazier gap [Moles/Vol]8 mmol/LLow9-16[facility] HospitalComment on above:Performed By: #### UAMIC #### [facility] [address] [place] [address] [address] [place], [place] 9407283 Supervisor Special Effects: Loreta Zelaya MDAST [Catalytic activity/Vol]44 U/TBuaj40-63XrrrpOhiohealth Pickerington Methodist HospitalComment on above:Performed By: #### UAMIC #### [address] [place], [place] 2992983 Supervisor Special Effects: Loreta Zelaya MDBilirubin [Mass/Vol]mg/dLNormal0.00-1.20[facility] HospitalComment on above:Performed By: #### UAMIC #### [facility] [address] [place] [address] [place] [address] Supervisor Special Effects: Loreta Zelaya MDBUN/CRE Ndbzq56Figw1-30AxthpOhiohealth Pickerington Methodist Hospital Comment on above:Performed By: #### UAMIC #### [address] [place], [place] 674[address]83 Supervisor Special Effects: URTH Frazieralcium [Mass/Vol]8.3 mg/dLLow8.6-10.4[facility] HospitalComment on above:Performed By: #### UAMIC #### [address] [place], [place] 4756183 Supervisor Special Effects: RUTH Frazierhloride [Moles/Vol]104 mmol/EXxshox95-935AmymuOhiohealth Pickerington Methodist HospitalComment on above:Performed By: #### UAMIC #### [address] [place], [place] 7104883 Supervisor Special Effects: Loreta Zelaya MDCO2 [Moles/Vol]27 mmol/GCrydel86-35Wmskj [facility] HospitalComment on above:Performed By: #### UAMIC #### [address] [place], [place] 7124983 Supervisor Special Effects: RUTH Frazierreatinine [Mass/Vol]0.4 mg/dLLow0.50-0.90[facility] HospitalComment on above:Performed By: #### UAMIC #### [address] [place] [address] Supervisor Special Effects: Loreta Zelaya MDGFR/1.73 sq M.predicted among non-blacks MDRD (S/P/Bld) [Vol rate/Area]mL/min/{1.73_m2}Normal>60[facility]state Medical CenterComment on above:Result Comment: These results are not intended for [...] or following therapy that affects renal tubular secretion.Performed By: #### UAMIC #### [address] [place] [address] Supervisor Special Effects: Loreta Zelaya MDGlucose [Mass/Vol]98 mg/uRWsrptl07-20Cjqpp [facility]state Medical CenterComment on above:Performed By: #### UAMIC #### [address] [place] [address] Supervisor Special Effects: SUZY Frazierotassium [Moles/Vol]4.0 mmol/LNormal3.7-5.3MThe [facility] HospitalComment on above:Performed By: #### UAMIC #### [address] [place] [address] Supervisor Special Effects: Loreta Zelaya MDProtein [Mass/Vol]4.7 g/dLLow6.6-8.7[facility] HospitalComment on above:Performed By: #### UAMIC #### [address] [place] [address] Supervisor Special Effects: Loreta Zelaya MDSodium [Moles/Vol]139 mmol/XJtiira302-635HoifmOhiohealth Pickerington Methodist HospitalComment on above:Performed By: #### UAMIC #### [facility] [address] [place] [address] Supervisor Special Effects: Loreta Zelaya MDUrea nitrogen [Mass/Vol]15 mg/dLNormal6-20[facility] HospitalComment on above:Performed By: #### UAMIC #### [facility] [address] [place] [address] Supervisor Special Effects: RUTH Frazieromprehensive Metabolic Panel w/ Reflex to MGon 54-49-6584Uhsltvv [Mass/Vol]2.9 g/dLLow3.5 - 5.2 g/dLBon Samaritan Hospital Albumin/Globulin [Mass ratio]1.7 {ratio}1.0 - 2.5Bon [facility]aritan HospitalALP [Catalytic activity/Vol]82 U/L35 - 104 U/LBon Samaritan HospitalALT [Catalytic activity/Vol]37 U/LHigh10 - 35 U/LBon Samaritan HospitalAnion gap [Moles/Vol] 8 mmol/LLow9 - 16 mmol/LBon Samaritan HospitalAST [Catalytic activity/Vol]44 U/LHigh10 - 35 U/LBon Samaritan HospitalBilirubin [Mass/Vol]mg/dL0.00 - 1.20 mg/dLBon Samaritan HospitalCalcium [Mass/Vol]8.3 mg/dLLow8.6 - 10.4 mg/dLBon Samaritan HospitalChloride [Moles/Vol]104 mmol/L98 - 107 mmol/LBon Samaritan HospitalCO2 [Moles/Vol]27 mmol/L20 - 31 mmol/LBon [facility]itan Hospital Creatinine [Mass/Vol]0.4 mg/dLLow0.50 - 0.90 mg/dLBon Samaritan HospitalEst, Glom Filt Rate- PINFBon Samaritan HospitalComment on above: These results are not intended [...] therapy that affects renal tubular secretion. Glucose [Mass/Vol]98 mg/dL74 - 99 mg/dLBon Samaritan HospitalInterpretation and review of laboratory resultsAbnormClinch Valley Medical CenterPotassium [Moles/Vol]4 mmol/L3.7 - 5.3 mmol/LBon Samaritan HospitalProtein [Mass/Vol]4.7 g/dLLow6.6 - 8.7 g/dLBon Samaritan HospitalSodium [Moles/Vol]139 mmol/L136 - 145 mmol/LBon Samaritan HospitalUrea nitrogen [Mass/Vol]15 mg/dL6 - 20 mg/dL [facility] HospitalUrea nitrogen/Creatinine [Mass ratio]38 mg/mgHigh9 - 20 [facility] CenterEKG Rhythm Stripon [facility]-18-2024 [facility] LABCarilion Roanoke Memorial HospitalGlucose, Whole Bloodon 36-01-0190Jumcyfb [Mass/Vol]230 mg/pZJcbg50 - 100 mg/dLBon Samaritan Hospital Interpretation and review of laboratory resultsAbnoBrookings Health SystemGlucose [Mass/Vol]230 mg/jQYfqe53-084XpuqzOhiohealth Pickerington Methodist HospitalGlucose [Mass/Vol]99 mg/dL74 - 100 mg/dLBon Deuel County Memorial HospitalGlucose [Mass/Vol]99 mg/gJQinoqu72-462JnbcoOhiohealth Pickerington Methodist Hospital Insulinon 32-94-5635Lsrtsaj1.1 mU/LNUniversity Hospitals Health SystemComment on above: Performed By: #### INSU #### [facility] [address] [place], [place] [id number] Supervisor Special Effects: Gee Royal MD [facility] [address] [place] [address] Supervisor Special Effects: Loreta Zelaya MD #### CPEP #### [employer] [address] [place], [place] 8470208 Supervisor Special Effects: Milka Pineda [facility] Comment on above:Result Comment: Fastin.6-24.9 30 min: 20-112 60 min: 29-88 90 min: 26-84 120 min: 22-79Performed By: #### INSU #### [address] [address] Supervisor Special Effects: Gee Royal MD [address] [place] [id number] Supervisor Special Effects: Loreta Zelaya MD #### CPEP #### [address] [address] Supervisor Special Effects: Gee Royal [facility] [employer] Comment on above:Performed By: #### INSU #### [address] [address] Supervisor Special Effects: Gee Royal MD [address] [place] [id number] Supervisor Special Effects: Loreta Zelaya MD #### CPEP #### [address] [address] Supervisor Special Effects: eGe Royal MDTSHoaayush 68-32-7875WUR Qn3.09 m[IU]/LBon Samaritan HospitalBon Samaritan HospitalThyroid Stim. Horm.on 91-40-2658Olhrema Stim. Horm.3.09 uIU/mLNormal0.27-4.20[facility] HospitalComment on above: Performed By: #### UAMIC #### [address] [place] [id number] Supervisor Special Effects: Loreta Zelaya MDThyroxineCristina 30-14-8711Shjvmvunr, Free0.9 ng/dLLow0.92-1.68[facility] HospitalComment on above:Performed By: #### UAMIC #### [address] [place] [facility]83 Supervisor Special Effects: Loreta Zelaya, MDAlbumin/Creat Ratio, Urineon 10-17-2024 Albumin,conc.[place] U<27Gjflfh1-59FhmyxOhiohealth Pickerington Methodist HospitalComment on above:Performed By: #### UAMIC #### [facility] [address] [place] [address] Dr. [place], [place] [address] Supervisor Special Effects: Loreta Zelaya, MDAlbumin/Creat RatioCan not be calculatedNormal 0.0-25.0[facility] Methodist HospitalComment on above:Performed By: #### UAMIC #### [address] [place] [phone] Supervisor Special Effects: Loreta Zelaya, MDCreatinine Conc.46.7 mg/hMVcdpab15.0-217.0[facility] HospitalComformerly [facility] on above:Result Comment: Reference range defined for 1st morning urinePerformed By: #### UAMIC #### [address] [place] [id number] Supervisor Special Effects: Loreta Zelaya MDAlbumin/Creatinine Ratio, Urineon 10-17-2024 Albumin DL <= 20 mg/L (U) [Mass/Vol]mg/L0 - 20 mg/LBon [facility]aritan Hospital Albumin/Creatinine DL <= 20 mg/L (U) [Ratio]Can not be calculatedBon Samaritan HospitalCreatinine (U) [Mass/Vol]46.7 mg/dL28.0 - 217.0 mg/dLBon Samaritan HospitalComment on above:Reference range defined for 1st morning urineBon Samaritan HospitalCBC auto differentialon 15-54-8210Dzisrftnm (Bld) [#/Vol] 0.04 10*3/uLBon Secours Ohio[facility] Grant Medical CenterBasophils/100 WBC (Bld)1 %0 - 2 %Bon Samaritan HospitalEosinophils (Bld) [#/Vol]0.11 10*3/uLBon [facility] Centerours [facility] Eosinophils/100 WBC (Bld)3 %1 - 4 %Bon Samaritan HospitalErythrocyte distribution width (RBC) [Ratio]13.5 %11.8 - 14.4 %[facility] Hematocrit (Bld) [Volume fraction]34.7 %Low36.3 - 47.1 %[facility] Hemoglobin (Bld) [Mass/Vol]11.3 g/dLLow11.9 - 15.1 g/dLBon Samaritan Hospital Immature granulocytes (Bld) [#/Vol][facility] HospitalImmature granulocytes/100 WBC (Bld)1 %Xwpn9Qzt Samaritan HospitalInterpretation and review of laboratory resultsAbnormalBon Samaritan HospitalLymphocytes/100 WBC (Bld)45 %High24 - 43 %[facility] HospitalLymphocytes/100 WBC (Bld)1.57 %Centra HealthH (RBC) [Entitic mass]33 pg25.2 - 33.5 pgBon [facility]hes[facility] North HospitalHC (RBC) [Mass/Vol]32.6 g/dL28.4 - 34.8 g/dLBon [facility] North HospitalV (RBC) [Entitic vol]101.5 fL82.6 - 102.9 fLCarilion Roanoke Memorial Hospital Monocytes/100 WBC (Bld)14 %High3 - 12 %[facility] HospitalMonocytes/100 WBC (Bld)0.48 %[facility] HospitalNeutrophils/100 WBC (Bld)36 %36 - 65 %[facility] HospitalNucleated RBC/100 WBC (Bld) [Ratio]0 %0.0 per 100 WBCCarilion Roanoke Memorial HospitalPlatelet mean volume (Bld) [Entitic vol]10.1 fL8.1 - 13.5 fL [facility] HospitalPlatelets (Bld) [#/Vol]219 10*3/uLBon Samaritan HospitalRBC (Bld) [#/Vol]3.42 10*6/uLLow3.95 - 5.11 m/uLBon [facility]aritan Hospital Segmented neutrophils/100 WBC (Bld)1.26 %LowBon Samaritan HospitalWBC other (Bld) [#/Vol]3.5Bon [facility] SecGlenbeigh HospitalCBC with Diffon 83-71-8711Nfz. Basophil0.04 k/uLNormal0.00-0.20MerMercy Health St. [facility]'s [facility] HospitalComment on above:Performed By: #### BMP #### [address] [place] [address] Supervisor Special Effects: MDAbs. KarinImm.Granulocyte<0.37Gmzbmm1.00-0.30MerMercy Health St. Rita's Medical Center HospitalComment on above:Performed By: #### BMP #### [address] [place], [place] [address] Supervisor Special Effects: Marie Frazier.Neutrophil (Seg)1.26 k/uLLow1.50-8.10MerMercy Health St. Rita's Medical Center HospitalComment on above:Performed By: #### BMP #### [address] [place] [address] Supervisor Special Effects: Loreta Zelaya MDBasophils/100 WBC (Bld)1 %Normal0-2[facility] HospitalComment on above:Performed By: #### BMP #### [address] [place], [place] [address] Supervisor Special Effects: Loreta Zelaya MDEosinophils (Bld) [#/Vol]0.11 10*3/uLNormal 0.00-0.44[facility] HospitalComment on above:Performed By: #### BMP #### [address] [place], [place] [address] Supervisor Special Effects: FARIBA Frazierosinophils/100 WBC (Bld)3 %Normal1-4MerMercy [address] [facility]'s Medical Center HospitalComment on above:Performed By: #### BMP #### [address] [place], [place] [id number] Supervisor Special Effects: Loreta Zelaya MDErythrocyte distribution width (RBC) [Ratio]13.5 % Vvlnjj96.8-14.4MerCleveland Clinic Akron General Lodi Hospitalfin HospitalComment on above:Performed By: #### BMP #### [address] [place] [address] Supervisor Special Effects: Loreta Zelaya MDHematocrit (Bld) [Volume fraction]34.7 %Low 36.3-47.1MThe Surgical Hospital at Southwoods HospitalComment on above:Performed By: #### BMP #### [address] [place], [place] [address] Supervisor Special Effects: Loreta Zelaya MDHemoglobin (Bld) [Mass/Vol]11.3 g/dLLow11.9-15.1 [facility] HospitalComment on above:Performed By: #### BMP #### [address] [place] 2804483 Supervisor Special Effects: Thaddeus Fraziermature granulocytes/100 WBC (Bld)1 %Twpy1IazzdSt. Francis Hospital HospitalComment on above:Performed By: #### BMP #### [address] [place], [facility]83 Supervisor Special Effects: Luciana Fraziermphocytes (Bld) [#/Vol]1.57 10*3/uLNormal 1.10-3.70[facility] HospitalComment on above:Performed By: #### BMP #### [address] [place], [facility]83 Supervisor Special Effects: Luciana Fraziermphocytes/100 WBC (Bld)45 %Mexy50-47Skoad [facility]iffin HospitalComment on above:Performed By: #### BMP #### [address] [place] 2804483 Supervisor Special Effects: MIGUELINA FrazierCH (RBC) [Entitic mass]33.[address]ltnyt43.2-33.5 [facility] HospitalComment on above:Performed By: #### BMP #### [address] [place] [address] Supervisor Special Effects: MIGUELINA FrazierCHC (RBC) [Mass/Vol]32.6 g/bVYguuys04.4-34.8[facility] HospitalComment on above:Performed By: #### BMP #### [address] [place] [address] Supervisor Special Effects: MIGUELINA FrazierCV (RBC) [Entitic vol]101.5 uWAsnnrl14.6-102.9 [facility] HospitalComment on above:Performed By: #### BMP #### [address] [place], [place] 3169183 Supervisor Special Effects: MIGUELINA Frazieronocytes (Bld) [#/Vol]0.48 10*3/uLNormal0.10-1.20 [facility] HospitalComment on above:Performed By: #### BMP #### [address] [place] [address] Supervisor Special Effects: MIGUELINA Frazieronocytes/100 WBC (Bld)14 %High3-12[facility] HospitalComment on above:Performed By: #### BMP #### [address] [place] [address] Supervisor Special Effects: Loreta Zelaya MDNeutrophil (Seg)36 %Fuuclc12-45Vpnny [facility]iffin HospitalComment on above:Performed By: #### BMP #### [address] [place] [address] Supervisor Special Effects: Loreta Zelaya MDNRBC Automated0.0 per [address] HospitalComment on above:Performed By: #### BMP #### [address] [place], [place] 8553583 Supervisor Special Effects: Helena Frazier mean volume (Bld) [Entitic vol]10.1 fL Normal8.1-13.5[facility] HospitalComment on above:Performed By: #### BMP #### [address] [place], [place] 8572383 Supervisor Special Effects: Luna Frazier (Bld) [#/Vol]219 10*3/fMLlqabn642-321 [facility] HospitalComment on above:Performed By: #### BMP #### [address] [place] [address] Supervisor Special Effects: SARA Frazier (Bld) [#/Vol]3.42 10*6/uLLow3.95-5.11[facility] HospitalComment on above:Performed By: #### BMP #### [address] [place], [place] 5938883 Supervisor Special Effects: TSERING Frazier (Bld) [#/Vol]3.5 10*3/uLNormal3.5-11.3MEast [facility] Regional HospitalComment on above:Performed By: #### BMP #### [address] [place], [place] [id number] Supervisor Special Effects: LILI FrazierA ABDOMEN PELVIS W CONTRASTon 25-16-5687JBD ABDOMEN PELVIS W CONTRASTEXAMINATION: CTA OF THE ABDOMEN AND PELVIS WITH [...] Signed by: Hosea Martinez MD 10/17/24 Final resultNormalMercy Saint Mary's Hospital Abdominal vessels and Pelvis vessels W contrast Wesley . Unremarkable abdominopelvic arteries. No aneurysm or dissection. 2. Moderate diffuse body wall edema which may reflect anasarca. 3. Uterus appears unremarkable as visualized. 4. Probable constipation. 5. Additional findings, as above. [facility] RIS CONSOLIDATEDEXAMINATION: CTA OF THE ABDOMEN AND PELVIS WITH [...] diffuse body wall edema. No acute fracture. Hosea Hamilton MD - 10/17/2024 EXAMINATION: CTA OF THE [...] constipation. 5. Additional findings, as above. [facility] HospitalRadiology Study observation (narrative)Hospital Corporation Of AmericaMoonfruit [facility] Medical CenterCTA Abdominal vessels and Pelvis vessels W contrast IVOrdered By: Hosea Martinez on 48-52-0189Vht [facility] efw-suhl Work Phone: Come Metabolic Pr/rfx MGon 21-24-6248Zgvmirc [Mass/Vol]3.0 g/dLLow3.5-5.2[facility]state Medical CenterComment on above:Performed By: #### BMP #### [address] [place] [address] Supervisor Special Effects: Loreta Zelaya MDAlbumin/Glob Ratio1.8Bzlbqq3.0-2.5[facility] HospitalComment on above:Performed By: #### BMP #### [address] [place] [address] Supervisor Special Effects: Bill Frazierkaline Pdrx525 U/AMvmcgd81-528Ewevu [facility]in HospitalComment on above:Performed By: #### BMP #### [address] [place] [address] Supervisor Special Effects: Loreta Zelaya MDALT [Catalytic activity/Vol]34 U/GAchjys93-47Rxvfn [facility]in HospitalComment on above:Performed By: #### BMP #### [address] [place] [address] Supervisor Special Effects: Loreta Zelaya MDAnion gap [Moles/Vol]8 mmol/LLow9-16[facility] HospitalComment on above:Performed By: #### BMP #### [address] [place] [address] Supervisor Special Effects: Loreta Zelaya MDAST [Catalytic activity/Vol]28 U/KHbepac78-59Tccly [facility] HospitalComment on above:Performed By: #### BMP #### [address] [place] [address] Supervisor Special Effects: Loreta Zelaya MDBilirubin [Mass/Vol]mg/dLNormal0.00-1.20[facility] HospitalComment on above:Performed By: #### BMP #### [address] [place] [address] Supervisor Special Effects: Loreta Zelaya MDBUN/CRE Szwoa48Pdsg1-07HaevjOhiohealth Pickerington Methodist Hospital Comment on above:Performed By: #### BMP #### [address] [place], [place] 6247083 Supervisor Special Effects: RUTH Frazieralcium [Mass/Vol]8.2 mg/dLLow8.6-10.4[facility] HospitalComment on above:Performed By: #### BMP #### [address] [place], [place] [id number] Supervisor Special Effects: RUTH Frazierhloride [Moles/Vol]103 mmol/QUzrnmw01-844Bogjk [facility]in HospitalComment on above:Performed By: #### BMP #### [address] [place], [place] 5911083 Supervisor Special Effects: Loerta Zelaya MDCO2 [Moles/Vol]26 mmol/CXlntxr59-62NcuegOhiohealth Pickerington Methodist HospitalComment on above:Performed By: #### BMP #### [address] [place], [place] 0732183 Supervisor Special Effects: RUTH Frazierreatinine [Mass/Vol]0.4 mg/dLLow0.50-0.90[facility] HospitalComment on above:Performed By: #### BMP #### [address] [place], [place] 7810383 Supervisor Special Effects: Loreta Zelaya MDGFR/1.73 sq M.predicted among non-blacks MDRD (S/P/Bld) [Vol rate/Area]mL/min/{1.73_m2}Normal>60[facility] HospitalComment on above:Result Comment: These results are not intended for [...] or following therapy that affects renal tubular secretion.Performed By: #### BMP #### [address] [place], [place] [id number] Supervisor Special Effects: Loreta Zelaya MDGlucose [Mass/Vol]248 mg/rXYsnw84-42RgoenEast Ohio Regional HospitalComment on above:Performed By: #### BMP #### [address] [place], [place] 6173283 Supervisor Special Effects: Loreta Zelaya MDPotassium [Moles/Vol]3.8 mmol/LNormal3.7-5.3Muniversity hospitals lake [facility] medical centery Houston HospitalComment on above:Performed By: #### BMP #### [address] [place], [place] 2402583 Supervisor Special Effects: Loreta Zelaya MDProtein [Mass/Vol]4.5 g/dLLow6.6-8.7[facility] HospitalComment on above:Performed By: #### BMP #### [address] [place], [place] 2269383 Supervisor Special Effects: Loreta Zelaya MDSodium [Moles/Vol]137 mmol/PFgcdza042-681OwvzgOhiohealth Pickerington Methodist HospitalComment on above:Performed By: #### BMP #### [address] [place], [place] 2195483 Supervisor Special Effects: Loreta Zelaya MDUrea nitrogen [Mass/Vol]15 mg/dLNormal6-20[facility] HospitalComment on above:Performed By: #### BMP #### [address] [place], [place] 4683483 Supervisor Special Effects: RUTH Frazieromprehensive Metabolic Panel w/ Reflex to MGon 45-71-2048Zzjmhbb [Mass/Vol]3 g/dLLow3.5 - 5.2 g/dLBon [facility] Hospital Albumin/Globulin [Mass ratio]1.9 {ratio}1.0 - 2.5Bon Samaritan HospitalALP [Catalytic activity/Vol]104 U/L35 - 104 U/LBon Secours Mercy HealthALT [Catalytic activity/Vol]34 U/L10 - 35 U/LBon [facility] efw-suhlAnion gap [Moles/Vol]8 mmol/LLow9 - 16 mmol/LBon Secours Highland District Hospitaly HealthAST [Catalytic activity/Vol]28 U/L10 - 35 U/LBon Secours St. [facility] HealthBilirubin [Mass/Vol]mg/dL 0.00 - 1.20 mg/dLBon SecHood Memorial Hospital HealthCalcium [Mass/Vol]8.2 mg/dLLow8.6 - 10.4 mg/dLBon Secours Highland District Hospitaly HealthChloride [Moles/Vol]103 mmol/L98 - 107 mmol/L Bon [facility] HealthCO2 [Moles/Vol]26 mmol/L20 - 31 mmol/LBon Secours [facility] HealthCreatinine [Mass/Vol]0.4 mg/dLLow0.50 - 0.90 mg/dLBon [facility] Medical CenterWittyParrot Est, Glom Filt Rate- PINFBon Samaritan HospitalComment on above: These results are not intended [...] therapy that affects renal tubular secretion. Glucose [Mass/Vol]248 mg/kVArwk14 - 99 mg/dLBon [facility] efw-suhl Interpretation and review of laboratory resultsAbnormalBon [facility]itan Hospital Potassium [Moles/Vol]3.8 mmol/L3.7 - 5.3 mmol/LBon SecHood Memorial Hospital HealthProtein [Mass/Vol]4.5 g/dLLow6.6 - 8.7 g/dLBon Secours [facility] Grant Medical CenterSodium [Moles/Vol]137 mmol/L136 - 145 mmol/LBon SecHood Memorial Hospital HealthUrea nitrogen [Mass/Vol]15 mg/dL6 - 20 mg/dLBon SecHood Memorial Hospital HealthUrea nitrogen/Creatinine [Mass ratio]38 mg/mg High9 - 20Bon [facility] Hospital HealthBon Secours St[facility] HealthEKG 12 Leadon 96-40-5829Ipsbae Rnqg22XREZxlCentra Southside Community HospitalP Rddr18swrygxbFldCarilion Roanoke Memorial HospitalP-R Vqncjkjb992 msInova Health Systemcarolina Cincinnati Shriners HospitalQ-T Lqqbmfvh477 [facility] Hospitalcarolina Cincinnati Shriners HospitalQRS Epcdfoff28 msInova Health Systemcarolina Cincinnati Shriners HospitalQTc Calculation (zett)459 msCarilion Roanoke Memorial HospitalR Obcf18gzlrvqiIcq [facility] HealthT Tksw34nyootxdNahSentara Rmh Medical Center HealthVentricular Kqtd47KAKUxn Samaritan HospitalNormal sinus rhythm Low voltage QRS Borderline ECG No previous ECGs available Confirmed by BECKY AVILA ([id number]) on 10/17/2024 9:32:24 [facility] Becky Avila MD - 10/17/2024 Normal sinus rhythm Low voltage QRS Borderline ECG No previous ECGs available Confirmed by BECKY AVILA ([id number]) on 10/17/2024 9:32:24 AM [facility] CenterEKG Rhythm Stripon 10-17-2024 [facility] HospitalGlucose, Whole Bloodon 06-29-4043Cpdoluq [Mass/Vol]119 mg/zHVaer95 - 100 mg/dLBon Samaritan HospitalInterpretation and review of laboratory resultsAbnoLead-Deadwood Regional HospitalGlucose [Mass/Vol]119 mg/wPRufg12-018LtoarOhiohealth Pickerington Methodist HospitalGlucose [Mass/Vol]191 mg/dL High74 - 100 mg/dLBon Samaritan HospitalInterpretation and review of laboratory resultsAbnoLead-Deadwood Regional Hospital Glucose [Mass/Vol]191 mg/vFEoaz17-948BkmszOhiohealth Pickerington Methodist HospitalGlucose [Mass/Vol]111 mg/dDGkfz14 - 100 mg/dLBon Samaritan HospitalInterpretation and review of laboratory resultsAbnoLead-Deadwood Regional Hospital Glucose [Mass/Vol]111 mg/fURrmx25-143KbaseOhiohealth Pickerington Methodist HospitalGlucose [Mass/Vol]172 mg/dTEbkf94 - 100 mg/dLBon Samaritan HospitalInterpretation and review of laboratory resultsAbnoLead-[facility]wood Regional Hospital Glucose [Mass/Vol]172 mg/oVImgy48-828XlcwaOhiohealth Pickerington Methodist HospitalGlucose [Mass/Vol]402 mg/bBNfyl91 - 100 mg/dLBon Samaritan HospitalInterpretation and review of laboratory resultsAbnormChildren's Hospital of The King's Daughters Glucose [Mass/Vol]402 mg/hEPtxn29-320AcjcdOhiohealth Pickerington Methodist HospitalHemoglobin A1Con 77-78-7208Brfoytj glucose Estimated from glycated hemoglobin (Bld) [Mass/Vol]364 mg/dLBCentra Southside Community HospitalComment on above:The ADA and AACC recommend providing the estimated average glucose result to permit better patient understanding of their HBA1c result. HbA1c (Bld) [Mass fraction]14.3 %High4.0 - 6.0 %[facility] Interpretation and review of laboratory resultsAbnoBrookings Health SystemGlucose [Mass/Vol]364 mg/dLNoBucyrus Community Hospital Comment on above:Result Comment: The ADA and AACC recommend providing the estimated average glucose result to permit better patient understanding of their HBA1c result.Performed By: #### CDP #### [facility] [address] [place] [address] [place] [address] Supervisor Special Effects: Loreta Zelaya MDHbA1c (Bld) [Mass fraction]14.3 %High4.0-6.0[facility] HospitalComment on above:Performed By: #### CDP #### [facility] [address] [place] [address] Supervisor Special Effects: Loreta Zelaya MDOsmolality, Urineon 96-09-9481Guzprsmpek (U) [Osmolality]476 mosm/kgVCU Medical Center Osmolality - Vksqk814 mOsm/fzRsbsux72-0816XliduOhiohealth Pickerington Methodist HospitalComment on above: Performed By: #### UOSMO #### [address] [id number] Supervisor Special Effects: Gee Royal MD #### URNA #### [facility] [address] [place] [address] [place] [address] Supervisor Special Effects: SUZY Frazierrotein / creatinine ratio, urineon 10-17-2024 Creatinine (U) [Mass/Vol]43.9 mg/dL28.0 - 217.0 mg/dLBCentra Southside Community Hospital Interpretation and review of laboratory resultsAbnormalCarilion [facility]oke Memorial Hospital Protein (U) [Mass/Vol]10 mg/dLBon Samaritan HospitalComment on above:No normal range established.Urine Total Protein Creatinine Ratio0.38Rhjn1.00 - 0.20Bon [facility] Memorial HospitalProtein,Tot,[place] Uron 10-17-2024 Creatinine [Mass/Vol]43.9 mg/cGIdxlwn53.0-217.0[facility] HospitalComment on above:Performed By: #### CDP #### [address] [place], [place] [address] Supervisor Special Effects: Loreta Zelaya MDTot Prot. Conc.10 mg/dLKettering Health Main Campus Comment on above:Result Comment: No normal range established.Performed By: #### CDP #### [address] [place], [place] 4774383 Supervisor Special Effects: Loreta Zelaya MDTP/Cre Ratio0.35Sfqe4.00-0.20[facility] Comment on above:Performed By: #### CDP #### [address] [place], [place] 8453483 Supervisor Special Effects: QUAN Frazierodium, Random Uron 29-06-6471Hqsaiq (U) [Moles/Vol]30 mmol/LNormalCarilion Roanoke Memorial HospitalComformerly [facility] on above:No normal range established.Result Comment: No normal range established.Performed By: #### UOSMO #### [facility] [address] [place], [place] 4385508 Supervisor Special Effects: Gee Royal MD #### URNA #### [facility] [address] [place], [place] 467[address]83 Supervisor Special Effects: QUAN Frazierodium, urine, randomon 71-06-7726Okn Secours [facility] Medical CenterUrinalysis w/ Microon 05-06-0428Oerhazec7+AbnormalNONEMercy Midstate Medical CenterComment on above:Performed By: #### BMP #### [facility] [address] [place], [place] [id number] Supervisor Special Effects: Kameron Frazierirubin, SemiQt,UrNegativeNormalNEGOhiohealth Pickerington Methodist HospitalComment on above:Performed By: #### BMP #### [facility] [address] [place] [address] [place], [place] 5251883 Supervisor Special Effects: Lillian Frazier, UrineNegativeNormalCrystal Clinic Orthopedic Center Comment on above:Performed By: #### BMP #### [facility] [address] [place] [address] [place], [place] 429[address]83 Supervisor Special Effects: Rafi Frazierrity (ClearNoalCLEAROhiohealth Pickerington Methodist Hospital Comment on above:Performed By: #### BMP #### [facility] [address] [place] [address] [place], [place] 9[address]1083 Supervisor Special Effects: RUTH Frazierolor (U)YellowNoalYRegency Hospital Cleveland West Comment on above:Performed By: #### BMP #### [facility] [address] [place], [place] [id number] Supervisor Special Effects: Loreta Zelaya MDEpithelial cells LM Ql (Urine sed)5 TO 10Normal 0-25[facility] HospitalComment on above:Performed By: #### BMP #### [facility] [address] [place] [address] Supervisor Special Effects: Loreta Zelaya MDGlucose Ql (U)3+ mg/dLAbnormalNEGOhiohealth Pickerington Methodist HospitalComment on above:Performed By: #### BMP #### [facility] [address] [place] [address] [place], [place] 4736383 Supervisor Special Effects: Loreta Zelaya MDKetones Ql (U)NegativeNormalNEGSt. Francis Hospital HospitalComment on above:Performed By: #### BMP #### [facility] [address] [place] [address] [place] [address] Supervisor Special Effects: Loreta Zelaya MDLeukocyte esterase Test strip Ql (U)NegativeNormal NEGOhiohealth Pickerington Methodist HospitalComment on above:Performed By: #### BMP #### [address] [place], [place] [id number] Supervisor Special Effects: Loreta Zelaya MDNitrite,UrNegativeNormalNEGOhiohealth Pickerington [facility] Hospital Comment on above:Performed By: #### BMP #### [facility] [address] [place] [address] [place] [address] Supervisor Special Effects: MACHO Frazier,Ur6.9Mqjcvi3.0-9.0[facility] HospitalComment on above:Performed By: #### BMP #### [facility] [address] [place] [address] [place] [address] Supervisor Special Effects: SUZY Frazierrotein Ql (U)NegativeNormalNEGSt. Francis Hospital HospitalComment on above:Performed By: #### BMP #### [facility] [address] [place] [address] [place] [address] Supervisor Special Effects: QUAN Frazierpec. Abrams,Ur1.426Gyxqql8.010-1.020[facility] HospitalComment on above:Performed By: #### BMP #### [facility] [address] [place] [address] [place], [place] 2188483 Supervisor Special Effects: Loreta Sturtz, MDUrine RBC's0 TO 8Otlfam1-0VtjvwEast [facility] Hospital Comment on above:Performed By: #### BMP #### [facility] [address] [place], [place] 9559783 Supervisor Special Effects: Tawny Frazier WBC's2 TO 1Evtkjt4-2RliogOhiohealth Pickerington Methodist Hospital Comment on above:Performed By: #### BMP #### [facility] [address] [place], [facility]83 Supervisor Special Effects: Loreta Zelaya MDUrobilinogen,UrNormalNormal0.0-1.0[facility]health [facility]erington Methodist HospitalComment on above:Performed By: #### BMP #### [facility] [address] [place] [address] Dr. [place], [facility]83 Supervisor Special Effects: Loreta Zelaya MDYeastPRESENCE NOTEDAbnormalNONEMeVeterans Administration Medical CenterComment on above:Performed By: #### BMP #### [facility] [address] [place], [place] [id number] Supervisor Special Effects: Loreta Zelaya MDUrinalysis with Microscopicon 14-14-9713Amldghuz LM Ql (Urine sed)2+AbnormalNoneBon Secours Mercy HealthBilirubin Ql (U)Negative NEGATIVEBon Secours Mercy HealthClarity (U)ClearClearBon SecHood Memorial Hospital Health Color (U)YellowYellowBon Secours [facility] Hospitaly HealthEpithelial cells LM.HPF (Urine sed) [#/Area]5 TO 10[facility] HealthGlucose Test strip (U) [Mass/Vol]3+ AbnormalNEGATIVE mg/dLBon Secours Mercy HealthHemoglobin Auto test strip Ql (U) NegativeNEGATIVEBon Secours Mercy HealthInterpretation and review of laboratory resultsAbnormalBon Secours Mercy HealthKetones (U) [Mass/Vol]NegativeNEGATIVE mg/dLBon Secours Mercy HealthLeukocyte esterase Test strip Ql (U)Negative NEGATIVEBon Secours Mercy HealthNitrite Ql (U)NegativeNEGATIVEBon Secours Mercy HealthpH (U)6 [pH]5.0 - 9.0[facility] HealthProtein (U) [Mass/Vol] NegativeNEGATIVE mg/dLBon Secours [facility] HealthRBC LM.HPF (Urine sed) [#/Area][address] [facility] HealthSpecific gravity (U) [Rel density]1.011.010 - 1.020 Bon SecGlenbeigh HospitalUrobilinogen Qn (U)Normal0.0 - 1.0 EU/dLBon [facility]ours St[facility] HealthWBC LM.HPF (Urine sed) [#/Area][address] [facility] HealthYeast LM Ql (Urine sed)PRESENCE NOTEDAbnormalNoneBon Secours [facility] CenterBon SecHood Memorial Hospital HealthBrain Natri. Peptideon 00-27-0720Gybphnvyhlv peptide B (Bld) [Mass/Vol]299 pg/mLHigh0-125Ohio[facility] HospitalComment on above:Performed By: #### CDP #### [facility] [address] [place] [address] [place] [address] Supervisor Special Effects: Loreta Zelaya MDBrain Natriuretic Peptideon 34-09-1147Mekzxwhclxx peptide B (Bld) [Mass/Vol]299 pg/mLHigh0 - 125 pg/mLBon Samaritan HospitalCBC with Auto Differentialon 18-09-2456Gpcprrkqo (Bld) [#/Vol]0.05 10*3/uLBon Secours [facility] Grant Medical CenterBasophils/100 WBC (Bld)1 %0 - 2 %[facility] Eosinophils (Bld) [#/Vol]0.12 10*3/uLBon Secours [facility] Grant Medical CenterEosinophils/100 WBC (Bld)3 %1 - 4 %[facility] HealthErythrocyte distribution width (RBC) [Ratio]13.3 %11.8 - 14.4 %[facility] Hospitaly HealthHematocrit (Bld) [Volume fraction]35.7 %Low36.3 - 47.1 %Bon SecGlenbeigh HospitalHemoglobin (Bld) [Mass/Vol]11.7 g/dLLow11.9 - 15.1 g/dLBon SecGlenbeigh HospitalImmature granulocytes (Bld) [#/Vol][facility] Hospitaly [facility] HospitalImmature granulocytes/100 WBC (Bld)0 %0Bon [facility]itan HospitalInterpretation and review of laboratory results AbnormalBon Samaritan HospitalLymphocytes/100 WBC (Bld)34 %24 - 43 %Bon Sam[facility]itan HospitalLymphocytes/100 WBC (Bld)1.57 %Bon [facility] HospitalH (RBC) [Entitic mass]33.5 pg25.2 - 33.5 pgBon [facility] HospitalHC (RBC) [Mass/Vol]32.8 g/dL28.4 - 34.8 g/dLBon SecMercy Health Clermont HospitalV (RBC) [Entitic vol]102.3 fL82.6 - 102.9 fLBon Samaritan HospitalMonocytes/100 WBC (Bld)12 %3 - 12 %[facility] HospitalMonocytes/100 WBC (Bld)0.55 %[facility] HospitalNeutrophils/100 WBC (Bld)50 %36 - 65 %[facility] HospitalNucleated RBC/100 WBC (Bld) [Ratio]0 %0.0 per 100 WBCCarilion Roanoke Memorial HospitalPlatelet mean volume (Bld) [Entitic vol]10.4 fL8.1 - 13.5 fLBon Samaritan HospitalPlatelets (Bld) [#/Vol]238 10*3/uLBon Samaritan HospitalRBC (Bld) [#/Vol]3.49 10*6/uLLow 3.95 - 5.11 m/uLBon Samaritan HospitalSegmented neutrophils/100 WBC (Bld)2.37 %[facility] HospitalWBC other (Bld) [#/Vol]4.7Bon SecDepartment of Veterans Affairs [facility] HospitalCBC with Diffon [id number]. Basophil0.05 k/uLNormal 0.00-0.20MerHospital for Special CareComment on above:Performed By: #### CDP #### [facility] [address] [place] [address] Supervisor Special Effects: Marie Frazier.Imm.Granulocyte<0.28Edoerz6.00-0.30Mercy Houston HospitalComment on above:Performed By: #### CDP #### [address] [place] [address] Supervisor Special Effects: Marie Frazier.Neutrophil (Seg)2.37 k/uLNormal1.50-8.10[facility] HospitalComment on above:Performed By: #### CDP #### [address] [place], [place] [address] Supervisor Special Effects: Loreta Zelaya MDBasophils/100 WBC (Bld)1 %Normal0-2MercEast Ohio Regional Hospital HospitalComment on above:Performed By: #### CDP #### [address] [place] [address] Supervisor Special Effects: Loreta Zelaya MDEosinophils (Bld) [#/Vol]0.12 10*3/uLNormal 0.00-0.44[facility] HospitalComment on above:Performed By: #### CDP #### [address] [place], [place] [address] Supervisor Special Effects: Loreta Zelaya MDEosinophils/100 WBC (Bld)3 %Normal1-4[facility] HospitalComment on above:Performed By: #### CDP #### [address] [place], [place] [address] Supervisor Special Effects: Loreta Zelaya MDErythrocyte distribution width (RBC) [Ratio]13.3 % Czamqq46.8-14.4[facility] HospitalComment on above:Performed By: #### CDP #### [address] [place] [address] Supervisor Special Effects: Loreta Zelaya MDHematocrit (Bld) [Volume fraction]35.7 %Low 36.3-47.1MercEast Ohio Regional Hospital HospitalComment on above:Performed By: #### CDP #### [address] [place], [place] 395[address]83 Supervisor Special Effects: Loreta Zelaya MDHemoglobin (Bld) [Mass/Vol]11.7 g/dLLow11.9-15.1 [facility] HospitalComment on above:Performed By: #### CDP #### [address] [place], [place] [address]83 Supervisor Special Effects: Loreta Zelaya MDImmature granulocytes/100 WBC (Bld)0 %Ifikvc8Hjaba Tiffin HospitalComment on above:Performed By: #### CDP #### [address] [place], [place] 228[address]83 Supervisor Special Effects: Loreta Zelaya MDLymphocytes (Bld) [#/Vol]1.57 10*3/uLNormal 1.10-3.70[facility] HospitalComment on above:Performed By: #### CDP #### [address] [place], [place] [address]83 Supervisor Special Effects: Loreta Zelaya MDLymphocytes/100 WBC (Bld)34 %Jbaqds41-45Pdyxv Tiffin HospitalComment on above:Performed By: #### CDP #### [address] [place] [address] Supervisor Special Effects: MIGUELINA FrazierCH (RBC) [Entitic mass]33.5 dfOodnpw99.2-33.5 [facility] HospitalComment on above:Performed By: #### CDP #### [address] [place], [place] [id number] Supervisor Special Effects: KELLI FrazierC (RBC) [Mass/Vol]32.8 g/qHWhnzhr30.4-34.8[facility] HospitalComment on above:Performed By: #### CDP #### [address] [place], [place] [address]83 Supervisor Special Effects: MIGUELINA FrazierCV (RBC) [Entitic vol]102.[address] dTSfvrag68.6-102.9 [facility] HospitalComment on above:Performed By: #### CDP #### [address] [place] [address] Supervisor Special Effects: MIGUELINA Frazieronocytes (Bld) [#/Vol]0.55 10*3/uLNormal0.10-1.20 [facility] HospitalComment on above:Performed By: #### CDP #### [address] [place] [address] Supervisor Special Effects: MIGUELINA Frazieronocytes/100 WBC (Bld)12 %Normal3-12[facility] HospitalComment on above:Performed By: #### CDP #### [address] [place], [place] [address] Supervisor Special Effects: Loreta Zelaya MDNeutrophil (Seg)50 %Tnitqz98-40YcmxhOhiohealth Pickerington Methodist HospitalComment on above:Performed By: #### CDP #### [address] [place], [facility]83 Supervisor Special Effects: Loreta Zelaya MDNRBC Automated0.0 per 100 WBCNormal0.0[facility] HospitalComment on above:Performed By: #### CDP #### [address] [place], [facility]83 Supervisor Special Effects: SUZY Frazierlatelet mean volume (Bld) [Entitic vol]10.4 fL Normal8.1-13.5[facility] HospitalComment on above:Performed By: #### CDP #### [address] [place] [address] Supervisor Special Effects: SUZY Frazierlatelets (Bld) [#/Vol]238 10*3/fDYlgqqz065-308 [facility] HospitalComment on above:Performed By: #### CDP #### [facility] [address] [place], [place] 118[address]83 Supervisor Special Effects: SARA Frazier ([facility]) [#/Vol]3.49 10*6/uLLow3.95-5.11[facility] HospitalComment on above:Performed By: #### CDP #### [facility] [address] [place] [address] Dr. [place], [facility]83 Supervisor Special Effects: TSERING Frazier ([facility]) [#/Vol]4.7 10*3/uLNormal3.5-11.3MEast Ohio Regional HospitalComment on above:Performed By: #### CDP #### [address] [place] [address] Supervisor Special Effects: RUTH Fraziercedrick 77-61-6518Cixmlfg [Mass/Vol]3.3 g/dLLow3.5 - 5.2 g/dLBon Samaritan HospitalAlbumin/Globulin [Mass ratio]1.8 {ratio}1.0 - 2.5Bon [facility] HealthALP [Catalytic activity/Vol]153 U/LHigh35 - 104 U/L [facility] HealthALT [Catalytic activity/Vol]49 U/LHigh10 - 35 U/LBon [facility] HealthAnion gap [Moles/Vol]9 mmol/L9 - 16 mmol/LBon [facility] HealthAST [Catalytic activity/Vol]56 U/LHigh10 - 35 U/LBon [facility] Health Bilirubin [Mass/Vol]mg/dL0.00 - 1.20 mg/dLBon [facility] HealthCalcium [Mass/Vol]8.4 mg/dLLow8.6 - 10.4 mg/dLBon [facility] Centerours [facility] Hospitaly HealthChloride [Moles/Vol]96 mmol/LLow98 - 107 mmol/LBon [facility] HealthCO2 [Moles/Vol]25 mmol/L20 - 31 mmol/LBon [facility] HealthCreatinine [Mass/Vol]0.8 mg/dL0.50 - 0.90 mg/dLBon Samaritan HospitalEst, Glom Filt Rate85- PINFBon [facility] on above: These results are not intended [...] therapy that affects renal tubular secretion. Glucose [Mass/Vol]567 mg/dLCritically high74 - 99 mg/dLBon [facility] Hospital Potassium [Moles/Vol]4.5 mmol/L3.7 - 5.3 mmol/LBon [facility] on above:Specimen hemolysis has exceeded the interference as defined by Kat. Value may be falsely increased. Suggest recollection if clinically indicated. Protein [Mass/Vol]5.2 g/dLLow6.6 - 8.7 g/dLBon Samaritan HospitalSodium [Moles/Vol]130 mmol/OVpp812 - 145 mmol/LBon Samaritan HospitalUrea nitrogen [Mass/Vol]22 mg/dLHigh6 - 20 mg/dLBon Samaritan HospitalUrea nitrogen/Creatinine [Mass ratio]28 mg/mgHigh9 - 20Bon [facility] Hospitalp Metabolic Profon 49-39-5730Zoadrfe [Mass/Vol]3.3 g/dLLow3.5-5.2[facility] Medical CenterComformerly [facility] on above:Performed By: #### INSU #### [facility] [employer] [address] [place] [address] Supervisor Special Effects: Gee Royal MD [facility] [address] [place] [address] Supervisor Special Effects: Loreta Zelaya MD #### CPEP #### [facility] [employer] [address] [place], [place] [address] Supervisor Special Effects: Gee Royal MDAlbumin/Glob Ratio1.4Kzcrao4.0-2.5[facility] on above:Performed By: #### INSU #### [address] [address] Supervisor Special Effects: Gee Royal MD [address] [place] [address] Supervisor Special Effects: Loreta Zelaya MD #### CPEP #### [address] [address] Supervisor Special Effects: Reny Pineda Jbjp091 U/YYhfa45-491HirkzOhiohealth Pickerington Methodist HospitalComformerly [facility] on above:Performed By: #### INSU #### [address] [address] Supervisor Special Effects: Gee Royal MD [address] [place] [address] Supervisor Special Effects: Loreta Zelaya MD #### CPEP #### [address] [address] Supervisor Special Effects: Gee Royal MDALT [Catalytic activity/Vol]49 U/YKdfh47-43AodlcOhiohealth Pickerington Methodist HospitalComformerly [facility] on above:Performed By: #### INSU #### [address] [address] Supervisor Special Effects: Gee Royal MD [address] [place] [address]83 Supervisor Special Effects: Loreta Zelaya MD #### CPEP #### [address] [address] Supervisor Special Effects: Hetal Pineda gap [Moles/Vol]9 mmol/LNormal9-16[facility] HospitalComformerly [facility] on above:Performed By: #### INSU #### [address] [address] Supervisor Special Effects: Gee Royal MD [address] [place] [address] Supervisor Special Effects: Loreta Zelaya MD #### CPEP #### [address] [address] Supervisor Special Effects: Gee Royal MDAST [Catalytic activity/Vol]56 U/CUluh48-79TedjtOhiohealth Pickerington Methodist HospitalComment on above:Performed By: #### INSU #### [address] [address] Supervisor Special Effects: Gee Royal MD [facility] [address] [place] [address] Dr. [place], [place] 2384083 Supervisor Special Effects: Loreta Zelaya MD #### CPEP #### [address] [address] Supervisor Special Effects: Gee Royal MDBilirubin [Mass/Vol]mg/dLNormal0.00-1.20[facility] HospitalComment on above:Performed By: #### INSU #### [address] [address] Supervisor Special Effects: Gee Royal MD [facility] [address] [place] [address] Dr. [place] [address]83 Supervisor Special Effects: Loreta Zelaya MD #### CPEP #### [address] [address] Supervisor Special Effects: Gee Royal MDBUN/CRE Hefvv76Mtkj1-55AwawxOhiohealth [facility] Comment on above:Performed By: #### INSU #### [address] [address] Supervisor Special Effects: Gee Royal MD [address] [place], [place] [address]83 Supervisor Special Effects: Loreta Zelaya MD #### CPEP #### [address] [address] Supervisor Special Effects: RUTH Pinedaalcium [Mass/Vol]8.4 mg/dLLow8.6-10.4[facility] HospitalComment on above:Performed By: #### INSU #### [address] [address] Supervisor Special Effects: Gee Royal MD [address] [place] [address] Supervisor Special Effects: Loreta Zelaya MD #### CPEP #### [address] [address] Supervisor Special Effects: RUTH Pinedahloride [Moles/Vol]96 mmol/AJqo91-427IkhhuOhiohealth Pickerington Methodist HospitalComment on above:Performed By: #### INSU #### [address] [address] Supervisor Special Effects: Gee Royal MD [address] [place] [address] Supervisor Special Effects: Loreta Zelaya MD #### CPEP #### [address] [address] Supervisor Special Effects: Gee Royal MDCO2 [Moles/Vol]25 mmol/GRmzjtt68-08ZpxliOhiohealth Pickerington Methodist HospitalComment on above:Performed By: #### INSU #### [address] [address] Supervisor Special Effects: Gee Royal MD [address] [place] [phone] Supervisor Special Effects: Loreta Zelaya MD #### CPEP #### [address] [address] Supervisor Special Effects: RUTH Pinedareatinine [Mass/Vol]0.8 mg/dLNormal0.50-0.90 [facility] HospitalComment on above:Performed By: #### INSU #### [address] [address] Supervisor Special Effects: Gee Royal MD [facility] [address] [place] [address] [place] [address] Supervisor Special Effects: Loreta Zelaya MD #### CPEP #### [address] [address] Supervisor Special Effects: Gee Royal MDGFR/1.73 sq M.predicted among non-blacks MDRD (S/P/Bld) [Vol rate/Area]85 mL/min/{1.73_m2}Normal>60[facility] Comment on above:Result Comment: These results are not intended for [...] or following therapy that affects renal tubular secretion.Performed By: #### INSU #### [address] [address] Supervisor Special Effects: Gee Royal MD [facility] [address] [place] [address] [place] [address] Supervisor Special Effects: Loreta Zelaya MD #### CPEP #### [address] [address] Supervisor Special Effects: Gee Royal MDGlucose [Mass/Vol]567 mg/dLCritically cybv02-99 [facility] HospitalComment on above:Performed By: #### INSU #### [address] [address] Supervisor Special Effects: Gee Royal MD [facility] [address] [place] [address] Dr. [place], [place] 24[address]183 Supervisor Special Effects: Loreta Zelaya MD #### CPEP #### [address] [address] Supervisor Special Effects: Gee Royal MDPotassium [Moles/Vol]4.5 mmol/LNormal3.7-5.3 [facility] HospitalComment on above:Result Comment: Specimen hemolysis has exceeded the interference as defined by Kat. Value may be falsely increased. Suggest recollection if clinically indicated.Performed By: #### INSU #### [address] [address] Supervisor Special Effects: Gee Royal MD [address] [place] [address] Supervisor Special Effects: Loreta Zelaya MD #### CPEP #### [address] [address] Supervisor Special Effects: Gee Royal MDProtein [Mass/Vol]5.2 g/dLLow6.6-8.7[facility] HospitalComment on above:Performed By: #### INSU #### [address] [address] Supervisor Special Effects: Gee Royal MD [address] [place] [address] Supervisor Special Effects: Loreta Zelaya MD #### CPEP #### [address] [address] Supervisor Special Effects: QUAN Pinedaodium [Moles/Vol]130 mmol/CPzj534-058MzozjOhiohealth Pickerington Methodist HospitalComment on above:Performed By: #### INSU #### [address] [address] Supervisor Special Effects: Gee Royal MD [address] [place] [address] Supervisor Special Effects: Loreta Zelaya MD #### CPEP #### [address] [address] Supervisor Special Effects: Gee Royal MDUrea nitrogen [Mass/Vol]22 mg/dLHigh6-20[facility] HospitalComment on above:Performed By: #### INSU #### [address] [address] Supervisor Special Effects: Gee Royal MD [address] [place], [place] 847[address]83 Supervisor Special Effects: Loreta Zelaya MD #### CPEP #### [address] [address] Supervisor Special Effects: Gee Royal MDGlucose, Whole Bloodon 86-35-0970Rocuppp [Mass/Vol]564 mg/dLCritically high74 - 100 mg/dLBon Samaritan Hospital Interpretation and review of laboratory resultsAbnoBrookings Health SystemGlucose [Mass/Vol]564 mg/dLCritically bykh42-789UivhlOhiohealth Pickerington Methodist HospitalMagnesiumon 06-99-1959Nezkqnupk [Mass/Vol]2 mg/dL1.6 - 2.6 mg/dL VCU Medical CenterMagnesium [Mass/Vol]2.0 mg/dL Normal1.6-2.6Muniversity hospitals lake west medical centery Midstate Medical CenterComment on above:Performed By: #### CDP #### [address] [place], [place] 5100583 Supervisor Special Effects: Loreta Zelaya MDNo Panel Informationon 40-00-7729Axfvhmayrnfhqt and review of laboratory resultsAbnoLead-Deadwood Regional HospitalTroponinon 38-54-2629Bdloidiv I.cardiac High sensitivity method [Mass/Vol]ng/L0 - 14 ng/LBon Samaritan HospitalComment on above:High Sensitivity Troponin values cannot be compared with other Troponin methodologies.Troponin, High Sens<9Fgyfnd7-42FuqbwOhiohealth Pickerington Methodist HospitalComment on above:Result Comment: High Sensitivity Troponin values cannot be compared with other Troponin methodologies.Performed By: #### INSU #### [address] [address] Supervisor Special Effects: Gee Royal MD [facility] [address] [place] [address] Supervisor Special Effects: Loreta Zelaya MD #### CPEP #### [facility] [address] [facility] [place] [address] Supervisor Special Effects: Gee Royal MDMT. [facility] METABOLIC PANLon 27-66-4193Qfidf gap [Moles/Vol]18 mmol/LHigh5-15ProMedica Landa HospitalComment on above:Performed By: #### TRISTAN, 6-3, 302-7 #### [facility] ([id number]) [address] [place], [place] [address]Iqyyssk [Mass/Vol]9.0 mg/dLNormal8.5-10.5ProMedica Landa HospitalComment on above:Performed By: #### TRISTAN, 3016-3, 302-7 #### [facility] ([id number]) [address], [address] [place], [place] [address]Ogeoovtn [Moles/Vol]101 mmol/LFumdsi15-441VvdZxcesm Landa HospitalComment on above:Performed By: #### TRISTAN, 6-3, 302-7 #### [facility] ([id number]) [address], [address] [place], [place] [address]AI1 [Moles/Vol]15 mmol/FZrb97-37PwqGbcrui Landa HospitalComment on above:Performed By: #### TRISTAN, 3016-3, 302-7 #### [facility] ([id number]) [address] [place], [place] [address]Kodvwormcg [Mass/Vol]0.52 mg/dLNormal0.40-1.00ProMedica Landa HospitalComment on above:Result Comment: METHOD TRACEABLE TO IDMS STANDARD Performed By: #### TRISTAN, 6-3, 302-7 #### [facility] ([id number]) [address] [address] [place], [place] [address]bCII (CKD-EPI) NON-RACE DEPENDENT>90Normal>59ProMercy Health – The Jewish HospitalComment on above:Result Comment: Reported eGFR is based on the CKD-EPI 2020 equation that does not use a race coefficient.Performed By: #### TRISTAN, 3016-3, 302-7 #### [facility] ([id number]) [address] [address] [place], [place] [address]Kvxjzka [Mass/Vol]321 mg/nIHokk72-58RtdRaaddpMercy Health – The Jewish Hospital Comment on above:Performed By: #### TRISTAN, 6-3, 3023-7 #### [facility] ([id number]) [address] [address] [place], [place] [address]Fypajiokh [Moles/Vol]4.3 mmol/LNormal3.5-5.0ProMercy Health [address] HospitalComment on above:Performed By: #### TRISTAN, 6-3, 3023-7 #### [facility] ([id number]) [address] [address] [place], [place] [address]Vbkxvu [Moles/Vol]134 mmol/AUhywic734-386MphOuzddo Toledo HospitalComment on above:Performed By: #### TRISTAN, 6-3, 3023-7 #### [facility] ([id number]) [address] [address] [place], [place] [address]Rpha nitrogen [Mass/Vol]15 mg/dLNormal5-23ProMercy Health – The Jewish HospitalComment on above:Performed By: #### TRISTAN, 6-3, 302-7 #### [facility] ([id number]) [address] [address] [place], [place] [address]Eyzvm Metabolic Panelon 54-45-2411Ncwex gap [Moles/Vol]18 mmol/L High5 - 15 mmol/LProMedica Health SystemCalcium [Mass/Vol]9.0 mg/dL8.5 - 10.5 mg/dLProSycamore Medical Center SystemChloride [Moles/Vol]101 mmol/L98 - 109 mmol/L ProMeast alabama medical center Health SystemCO2 [Moles/Vol]15 mmol/LLow22 - 32 mmol/[facility] SystemCreatinine [Mass/Vol]0.52 mg/dL0.40 - 1.00 mg/dLMartin Memorial Hospital Comment on above:METHOD TRACEABLE TO IDKY STANDARDeGFR (CKD-EPI)non-race dependent- [facility] HospitalComment on above: Reported eGFR is based on the CKD-EPI 2020 equation that does not use a race coefficient. Glucose [Mass/Vol]321 mg/qRUjxc04 - 99 mg/dLMartin Memorial Hospital Interpretation and review of laboratory resultsAbInterfaith Medical Center Potassium [Moles/Vol]4.3 mmol/L3.5 - 5.0 mmol/DeTar Healthcare System Health SystemSodium [Moles/Vol]134 mmol/L134 - 146 mmol/[facility] SystemUrea nitrogen [Mass/Vol]15 mg/dL5 - 23 mg/dLSt. Luke's University Health NetworkFREE T4on 95-45-1775Nfpf T4 [Mass/Vol]0.56 ng/dLLow0.61-1.60[facility] Avon HospitalComment on above:Performed By: #### BMP, 3016-3, 3024-7 #### [facility] ([id number]) [address] [place] [address], [address] [place], [place] [address]Iuxz T4 [Mass/Vol]on 55-84-4896Ypycipbnwethiw and review of laboratory resultsAbMeadville Medical CenterT4, free on 65-47-8677Ohmx T4 [Mass/Vol]0.56 ng/dLLow0.61 - 1.60 ng/dLMartin Memorial HospitalTSHon 63-79-0351BAL Qn9.36 m[IU]/LHighMartin Memorial HospitalTS Qnon 95-46-9779Ybbvpmtwdcbceh and review of laboratory resultsAbnoLifecare Hospital of PittsburghTSH9.36 uIU/mLHigh0.49-4.67ProMercy Health – The Jewish HospitalComment on above:Performed By: #### BMP, 3016-3, 3024-7 #### [facility] ([id number]) [address] [place] [address], [address] [place] [address] peptide [Mass/Vol]on 09-01-2023 PEPTIDE1.10 ng/mLNormal 0.81-3.85ProMercy Health – The Jewish HospitalComment on above:Result Comment: NOTE Test Performed By: [place] [address] Steam Press Tender: Judson Reese III, M.D. [facility] #[id number] - ALBUMIN:CREATININE URINE RATIOon 09-01-2023 ALB/CREAT RATIONOT CALCULATEDNormal0.0-30.0ProMercy Health – The Jewish HospitalComment on above:Result Comment: Result for Albumin/Creatinine Ratio cannot be reliably calculated because urine albumin and or urine creatinine is below the detection limit of the assay.Performed By: #### YOKOBU #### [facility] ([id number]) [address] [place] [address], [address] [place] [address]Kvmeobu DL <= 20 mg/L (U) [Mass/Vol]mg/dLNormal0.0-1.9ProSycamore Medical Center SystemComment on above:Performed By: #### YOKOBU #### [facility] ([id number]) [address] [place] [address], [address] [address]ZRQRQ CREAT12.23 mg/dLNormalProMercy Health – The Jewish HospitalComment on above:Performed By: #### YOKOBU #### [facility] ([id number]) [address] [place] [address], [address] [address]Thelwbldyuam - Albumin: Creatinine Urine Ratioon 09-01-2023 Albumin/Creatinine DL <= 1.0 mg/L (U) [Ratio]NOT CALCULATEDProSycamore Medical Center SystemComment on above: Result for Albumin/Creatinine Ratio cannot be reliably calculated because urine albumin and or urine creatinine is below the detection limit of the assay. Creatinine (U) [Mass/Vol]12.23 mg/dLCleveland Clinic Foundation SystemProFirelands Regional Medical Center South CampusCOMPREHENSIVE METABOLIC PANELon 13-34-1115Vsebgzb [Mass/Vol]3.9 g/dLNormal 3.2-5.3PPomerene Hospital HospitalComment on above:Performed By: #### CMP, THYR, HA1C, 68154-1 #### [facility] ([id number]) [address], [address] [place], [place] [address]MRA [Catalytic activity/Vol]73 U/RPawgys30-222NsnBlfbug [place] HospitalComment on above:Performed By: #### CMP, THYR, HA1C, 18127-9 #### [facility] ([id number]) [address], [address] [place], [place] [address]FKC [Catalytic activity/Vol]7 U/LNormal0-31PPomerene Hospital HospitalComment on above:Performed By: #### CMP, THYR, HA1C, 48487-6 #### [facility] ([id number]) [address], [address] [place], [place] [address]Lpphx gap [Moles/Vol]9 mmol/LNormal5-15ProMercy Health St[facility] Hospital Comment on above:Performed By: #### CMP, THYR, HA1C, 56709-1 #### [facility] ([id number]) [address], [address] [place], [place] [address]WXN [Catalytic activity/Vol]9 U/LNormal0-41ProMercy Health [facility] HospitalComment on above:Performed By: #### CMP, THYR, HA1C, 34473-0 #### [facility] ([id number]) [address], [address] [place], [place] [address]Vzmzelfwy [Mass/Vol]0.5 mg/dLNormal0.3-1.2PPomerene Hospital HospitalComment on above:Performed By: #### CMP, THYR, HA1C, 43445-2 #### [facility] ([id number]) [address], [address] [place], [place] [address]Zivblwk [Mass/Vol]8.7 mg/dLNormal8.5-10.5PMercy Health Springfield Regional Medical CenterComment on above:Performed By: #### MANNY THYR HAJoe, 76082-3 #### [facility] ([id number]) [address], [address] [place], [place] [address]Eiytpute [Moles/Vol]99 mmol/KLmaveu84-460WlhDnzngy [place] HospitalComment on above:Performed By: #### MANNY THYRGENTRY, 61461-8 #### [facility] ([id number]) [address], [address] [place], [place] [address]RQ7 [Moles/Vol]24 mmol/HTzcxub36-53YieIgtxuy [facility] Comment on above:Performed By: #### MANNY THYR, HAJoe, 73620-7 #### [facility] ([id number]) [address], [address] [place], [place] [address]Fzbxhhtgpd [Mass/Vol]0.53 mg/dLNormal0.40-1.00ProMercy Health – The Jewish HospitalComment on above:Result Comment: METHOD TRACEABLE TO IDMS STANDARD Performed By: #### FRANK BRYANT HA1C, 16508-5 #### [facility] ([id number]) [address], [address] [place], [place] [address]eORY (CKD-EPI) NON-RACE DEPENDENT>90Normal>59ProMer[facility] [address] HospitalComment on above:Result Comment: Reported eGFR is based on the CKD-EPI 2020 equation that does not use a race coefficient.Performed By: #### MANNY, THYR, HA1C, 72403-0 #### [facility] ([id number]) [address] [address] [place], [place] [address]Ftvrrvu [Mass/Vol]474 mg/dLCritically xspk78-01WjmFqkbmd [place] HospitalComment on above:Performed By: #### MANNY THYRodney, GENTRY, 79914-2 #### [facility] ([id number]) [address], [address] [place], [place] [address]Rtgvwoutg [Moles/Vol]3.9 mmol/LNormal3.5-5.0ProMercy Health – The Jewish HospitalComment on above:Performed By: #### MANNY THYRGENTRY, 87318-5 #### [facility] ([id number]) [address], [address] [place], [place] [address]Uzujezl [Mass/Vol]6.5 g/dLNormal6.0-8.0[facility] Comment on above:Performed By: #### FRANK BRYANT HA1C, 55463-7 #### [facility] ([id number]) [address], [address] [place], [place] [address]Rkvvkm [Moles/Vol]132 mmol/TKfc303-356LjkQtseszC[facility] Clinic [facility] Comment on above:Performed By: #### FRANK BRYANT HA1C, 84900-0 #### [facility] ([id number]) [address], [address] [place], [place] [address]Hbxn nitrogen [Mass/Vol]7 mg/dLNormal5-23ProMercy Health – The Jewish HospitalComment on above:Performed By: #### MANNY THYRGENTRY, 01431-1 #### [facility] ([id number]) [address], [address] [place], [place] [address]Qsblbhoxxvobk metabolic panelon 31-24-3869Mkezhek [Mass/Vol]3.9 g/dL3.2 - 5.3 g/dLProSycamore Medical Center SystemALP [Catalytic activity/Vol]73 U/L39 - 130 U/LProMedica Health SystemALT No additional P-5'-P [Catalytic activity/Vol]7 U/L0 - 31 U/LProMedica Health SystemAnion gap [Moles/Vol]9 mmol/L5 - 15 mmol/L [facility] HospitalAST [Catalytic activity/Vol]9 U/L0 - 41 U/ProMedica Memorial HospitalBilirubin [Mass/Vol]0.5 mg/dL0.3 - 1.2 mg/dLMartin Memorial Hospital Calcium [Mass/Vol]8.7 mg/dL8.5 - 10.5 mg/dLMartin Memorial HospitalChloride [Moles/Vol]99 mmol/L98 - 109 mmol/[facility] SystemCO2 [Moles/Vol]24 mmol/L22 - 32 mmol/ProMed[facility] Memorial HospitalCreatinine [Mass/Vol]0.53 mg/dL0.40 - 1.00 mg/dLMartin Memorial HospitalComment on above:METHOD TRACEABLE TO IDKY STANDARDeGFR (CKD-EPI)non-race dependent- [facility] HospitalComment on above: Reported eGFR is based on the CKD-EPI 2020 equation that does not use a race coefficient. Glucose [Mass/Vol]474 mg/dLCritically high65 - 99 mg/dLMartin Memorial Hospital Interpretation and review of laboratory resultsAbnormChillicothe Hospital Potassium [Moles/Vol]3.9 mmol/L3.5 - 5.0 mmol/[facility] Health SystemProtein [Mass/Vol]6.5 g/dL6.0 - 8.0 g/dLFrye Regional Medical Centerodium [Moles/Vol]132 mmol/HGxr349 - 146 mmol/ProMedica Memorial HospitalUrea nitrogen [Mass/Vol]7 mg/dL5 - 23 mg/dLSt. Luke's University Health NetworkHGB A1C (GLYCO-HGB)on 62-54-9736Zjzsrqa [Mass/Vol]349 mg/dLNoMartin Memorial HospitalComment on above:Performed By: #### CMP, THYR, HA1C, 34562-1 #### [facility] ([id number]) [address] [place], [place] [address]XnX6z (Bld) [Mass fraction]13.8 %High4.4-5.6[facility] HospitalComment on above:Result Comment: NOTE ADA Guidelines Result HgbA1c Normal : less than 5.7 % Prediabetes : 5.7 % to 6.4 % Diabetes : > 6.4 % Use with caution in patients with abnormal hemoglobin variants as the half-life of red blood cells and in vivo glycation rates are affected.Performed By: #### CMP, THYR, HA1C, 32919-2 #### [facility] ([id number]) [address] [place] [address], [address] [place], [place] [address]Jcoipaepqz A1con 55-99-7357Ugqwlhj glucose Estimated from glycated hemoglobin (Bld) [Mass/Vol]349 mg/dLMartin Memorial HospitalHbA1c (Bld) [Mass fraction]13.8 %High4.4 - 5.6 %Martin Memorial HospitalComment on above:NOTE ADA Guidelines Result HgbA1c Normal : less than 5.7 % Prediabetes : 5.7 % to 6.4 % Diabetes : > 6.4 % Use with caution in patients with abnormal hemoglobin variants as the half-life of red blood cells and in vivo glycation rates are affected. Interpretation and review of laboratory resultsAbnoPrairie Ridge HealthLipid 1996 panelon 69-10-7531Yspywomiian [Mass/Vol]104 mg/bNFqj353 - 200 mg/dLMartin Memorial HospitalCholesterol in HDL [Mass/Vol]43 mg/dL39 - PINF mg/dLMartin Memorial HospitalComment on above: HDL <40 mg/dL - High Risk HDL > or = 40mg/dL- Desirable HDL >60 mg/dL - Negative Risk Cholesterol in LDL [Mass/Vol]28 mg/dLNINF - 130 mg/dLMartin Memorial Hospital Comment on above: LDL <100 mg/dL - Desirable LDL >160 mg/dL - High Risk Cholesterol in VLDL [Mass/Vol]33 mg/dLHigh0 - 30 mg/dLMartin Memorial Hospital Cholesterol.total/Cholesterol in HDL [Mass ratio]2.4 {ratio}1.0 - 5.0Martin Memorial HospitalTriglyceride [Mass/Vol]165 mg/rZOmdk52 - 150 mg/dLMartin Memorial HospitalCholesterol [Mass/Vol]104 mg/gFJud845-891EjaYfvdsrMercy Health – The Jewish HospitalComment on above:Performed By: ###FRANK Dutton CMP, GENTRY, 79070-1 #### [facility] ([id number]) [address], [address] [place], [place] [address]Auoxwoivjoe in HDL [Mass/Vol]43 mg/dLNormal>39ProMercy Health – The Jewish HospitalComment on above:Result Comment: HDL <40 mg/dL - High Risk HDL > or = 40mg/dL- Desirable HDL >60 mg/dL - Negative Risk Performed By: ###Marija BRYANT, CHRISR, HA1C, 31359-8 #### [facility] ([id number]) [address], [address] [place], [place] [address]Xpzgvuxfinm in LDL [Mass/Vol]28 mg/dLNormal<130ProMercy Health – The Jewish HospitalComment on above:Result Comment: LDL <100 mg/dL - Desirable LDL >160 mg/dL - High Risk Performed By: ###Marija BRYANT, CHRISR, HA1C, 95910-4 #### [facility] ([id number]) [address], [address] [place], [place] [address]Xvcljqadjon in VLDL [Mass/Vol]33 mg/dLHigh0-30ProMer[facility] HospitalComment on above:Performed By: #### MANNY THYR, HAJoe, 43711-1 #### [facility] ([id number]) [address], [address] [place], [place] [address]UVWRKHNWNIS:HDL2.6Ertwpp6.0-5.0ProMercy Health St[facility] HospitalComment on above:Performed By: #### MANNY THYR HAJoe, 29402-8 #### [facility] ([id number]) [address], [address] [place], [place] [address]Hpshzytmiuzx [Mass/Vol]165 mg/xTLiew70-836MaqHsfybt [place] HospitalComment on above:Performed By: #### MANNY THYGENTRY Stevens, 70965-0 #### [facility] ([id number]) [address] [place], [place] [address]Gc Panel Informationon 86-28-5931Wkyhtcmragmbrz and review of laboratory resultsAbnormalMartin Memorial HospitalProSycamore Medical Center SystemTHYROID PROFILEon 01-83-7887Oghs T4 [Mass/Vol]0.50 ng/dLLow0.61-1.60ProMercy Health St. [facility] HospitalComment on above:Performed By: #### MANNY THYRodney, GENTRY, 40778-8 #### [facility] ([id number]) [address], [address] [place], [place] [address]LQL5.94 uIU/mLHigh0.49-4.67ProMer[facility] Health [facility] HospitalComment on above:Performed By: #### MANNY, THYR, HAJoe, 14255-4 #### [facility] ([id number]) [address], [address] [place], [place] [address]Udghgzh profile includes TSH FT4on 17-07-7942Ggvq T4 [Mass/Vol] 0.50 ng/dLLow0.61 - 1.60 ng/dLUNC Health Caldwell Qn8.94 m[IU]/[facility] CenterCBC AUTO DIFFon 67-40-0023ABMN #0.1 103/ulNormal0.0-0.1 [facility] HospitalComment on above:Performed By: #### CBC #### [facility] [address] [address] [address] Alejandra TrotterBasophils/100 WBC (Bld)0.9 %Normal0.2-2.0The [facility] Comment on above:Performed By: #### CBC #### [facility] [address] [address] [address] Alejandra Ruby #0.2 103/ulNormal0.0-0.7The [facility] PrebleComment on above: Performed By: #### CBC #### [facility] [address] [place] [address] Dr. Alejandra Nealosinophils/100 WBC (Bld)3.4 %Normal0.9-7.0[facility] Comment on above:Performed By: #### CBC #### [facility] [address] [place] [address] Dr. Alejandra Nealrythrocyte distribution width (RBC) [Ratio]12.5 %Gjmmaf18.0-15.0 [facility] HospitalComment on above:Performed By: #### CBC #### [facility] [address] [place] [address] Dr. Alejandra TrotterHematocrit (Bld) [Volume fraction]45.3 %Xoquka14.0-48.0[facility] HospitalComment on above:Performed By: #### CBC #### [facility] [address] [place] [address] Dr. Alejandra TrotterHemoglobin (Bld) [Mass/Vol]15.0 g/rYDhiwti51.0-16.0[facility] HospitalComment on above:Performed By: #### CBC #### [facility] [address] [place] [address] Dr. Alejandra Lai #0.02 10e3/ulNormal0.00-0.03The [facility] PrebleComment on above:Performed By: #### CBC #### [facility] [address] [place] [address] Dr. Alejandra Lai %0.3 %Normal0.0-0.5The [facility] PrebleComment on above: Performed By: #### CBC #### [facility] [address] [place] [address] Dr. Alejandra Fajardo #2.4 103/ulNormal1.2-3.8The [facility] PrebleComment on above:Performed By: #### CBC #### [facility] [address] [place] [address] Dr. Alejandra Oliviahocytes/100 WBC (Bld)41.2 %Ljtrrh38.5-60.0The [facility] PrebleComment on above:Performed By: #### CBC #### [facility] [address] [place] [address] Dr. Alejandra Aguilar DIFF REQNONormalThe [facility] PrebleComment on above: Performed By: #### CBC #### [facility] [address] [place] [address] Dr. Alejandra Torres (RBC) [Entitic mass]29.1 pyExpcin53.7-34.0The [facility] PrebleComment on above:Performed By: #### CBC #### [facility] [address] [place] [address] Dr. Alejandra Monzon (RBC) [Mass/Vol]33.1 g/jHTzymkr19.9-35.2The [facility] PrebleComment on above:Performed By: #### CBC #### [facility] [address] [place] [address] Dr. Alejandra Tenorio (RBC) [Entitic vol]87.8 uYEkhguw81.0-99.0The [facility] PrebleComment on above:Performed By: #### CBC #### [facility] [address] [place] [address] Dr. Alejandra Key #0.4 103/ulNormal0.3-0.8The [facility] PrebleComment on above:Performed By: #### CBC #### [facility] [address] [place] [address] Dr. Alejandra Aranaocytes/100 WBC (Bld)6.7 %Normal1.7-12.0The [facility] Comment on above:Performed By: #### CBC #### [facility] [address] [place] [address] Dr. Alejandra Decker #2.8 103/ulNormal1.4-6.5The [facility] PrebleComment on above:Performed By: #### CBC #### [facility] [address] [place] [address] Dr. Alejandra Quinnophils/100 WBC (Bld)47.5 %Vncynn26.0-75.0The [facility] PrebleComment on above:Performed By: #### CBC #### [facility] [address] [place] [address] Dr. Alejandra Bowmanlet mean volume (Bld) [Entitic vol]10.7 fLNormal9.5-13.5The [facility] PrebleComment on above:Performed By: #### CBC #### [facility] [address] [place] [address] Dr. Alejandra NicholsT282 103/cdMsgffq367-933Wtq [facility] PrebleComment on above: Performed By: #### CBC #### [facility] [address] [place] [address] Dr. Alejandra TrotterRBC5.16 106/ulNormal4.20-5.40The [facility] PrebleComment on above:Performed By: #### CBC #### [facility] [address] [place] [address] Dr. Alejandra TrotterWBC5.8 103/ulNormal4.0-11.0The [facility] PrebleComment on above: Performed By: #### CBC #### [facility] [address] [place] [address] Dr. Alejandra Benitez 42-08-7465J-DIMER0.58 mg/L FEUNormal<=0.59[facility] on above:Performed By: #### DDIM #### [facility] [address] [place] [address] Dr. Alejandra TrotterD-DIMER COMMENTSSEE [facility] on above:Result Comment: Increases in D-Dimer concentration observed with thromboembolic events [...] stress, and generalized hospitalization. Performed By: #### DDIM #### [facility] [address] [place] [address] Dr. Alejandra Cannon URINE PROFILEon 92-32-7365Ofsoifgaz Ql (U)NegativeNormal NEGATIVEWestern Reserve HospitalComment on above:Performed By: #### ERUR #### [facility] [address] [place] [address] Dr. Alejandra TrotterCltal (U)CLEARNormalCLEARWestern Reserve HospitalComment on above: Performed By: #### ERUR #### [facility] [address] [place] [address] Dr. Alejandra Stallworth (U)LT. YELLOWNormalYELLOWWestern Reserve HospitalComformerly [facility] on above:Performed By: #### ERUR #### [facility] [address] [place] [address] Dr. Alejandra Forde micrscopic examination will be performed if indicated. NormalWestern Reserve HospitalComformerly [facility] on above:Performed By: #### ERUR #### [facility] [address] [place] [address] Dr. Alejandra TrotterGlucose Ql (U)>1000AbnormalNEGATIVEWestern Reserve HospitalComformerly [facility] on above:Performed By: #### ERUR #### [facility] [address] [place] [address] Dr. Alejandra TrotterHemoglobin Ql (U)TRACE-LYSEDAbnoalNEGOhio Valley Surgical Hospital Comment on above:Performed By: #### ERUR #### [facility] [address] [place] [address] Dr. Alejandra Raygozaones Ql (U)>=80AbnormalNEGATIVEThe [facility] PrebleComment on above:Performed By: #### ERUR #### [facility] [address] [place] [address] Dr. Alejandra TrotterLEUKOCYTESNegativeNormalNEGATIVEWestern Reserve HospitalComment on above:Performed By: #### ERUR #### [facility] [address] [place] [address] Dr. Alejandra TrotterNitrite Ql (U)NegativeNormalNEGATIVEWestern Reserve HospitalComment on above:Performed By: #### ERUR #### [facility] [address] [place] [address] Dr. Alejandra TrotterpH (U)5.0 [pH]Normal5-9The [facility]bleComment on above: Performed By: #### ERUR #### [facility] [address] [place] [address] Dr. Alejandra TrotterSPEC GRAVITY1.262Zgpeuw3.005-<=1.025The [facility] PrebleComment on above:Performed By: #### ERUR #### [facility] [address] [place] [address] Dr. Alejandra Johnson PROTEINNegativeNormalNEGATIVE/ TRACEWestern Reserve Hospital Comment on above:Performed By: #### ERUR #### [facility] [address] [place] [address] Dr. Alejandra Emmanuel MICRO INDNOT INDICATEDNoalThMercer County Community HospitalComment on above:Performed By: #### ERUR #### [facility] [address] [place] [address] Dr. Alejandra Wilkesbilinogen Qn (U)0.2 {Rui'U}/dLNormal0.2 - 1.0The [facility]ica HospitalComment on above:Performed By: #### ERUR #### [facility] [address] [address] [address] Alejandra TrotterLACTATE/LACTIC ACIDon 03-24-5781Pfhseox [Moles/Vol]1.1 mmol/L Normal0.4-2.0The [facility] PrebleComment on above:Performed By: #### LACT #### [facility] [address] [place] [address] Dr. Alejandra TrotterPOINT OF CARE GLUCOSEon 19-80-7114Tnpuylf [Mass/Vol]322 mg/dL Critically hhyz90-987Ynl [facility]Comformerly [facility] on above:Performed By: #### POCGLUC #### [facility] [address] [place] [address] Dr. Alejandra TrotterPROF 14(COMP METB)on 80-48-9994Jwrxkss [Mass/Vol]3.6 g/dLNormal 3.4-5.0The [facility] Hospitalment on above:Performed By: #### HSTROPN, CMP #### [facility] [address] [place] [address] Dr. Alejandra TrotterAlbumin/Globulin [Mass ratio]0.9 {ratio}NormalThe [facility] Citizens Hospitalment on above:Performed By: #### HSTROPN, CMP #### [facility] [address] [place] [address] Dr. Alejandra Ochoa [Catalytic activity/Vol]107 U/OExthaa15-061Qtr [facility] on above:Performed By: #### HSTROPN, CMP #### [facility] [address] [place] [address] Dr. Alejandra Lockhart [Catalytic activity/Vol]14 U/YLbfofr21-79Tcl [facility] on above:Performed By: #### HSTROPN, CMP #### [facility] [address] [place] [address] Dr. Alejandra Arizmendi gap [Moles/Vol]20.6 mmol/LNormalThe [facility] on above:Performed By: #### HSTROPN, CMP #### [facility] [address] [address] [address] Alejandra TrotterAST [Catalytic activity/Vol]11 U/LCritically lvb83-65Iik [facility] PrebleComment on above:Performed By: #### HSTROPN, CMP #### [facility] [address] [address] [address] Alejandra TrotterBilirubin [Mass/Vol]0.4 mg/dLNormal0.2-1.0The [facility] Comment on above:Performed By: #### HSTROPN, CMP #### [facility] [address] [place] [address] Dr. Alejandra TrotterCalcium [Mass/Vol]9.0 mg/dLNormal8.5-10.1The [facility] Comment on above:Performed By: #### HSTROPN, CMP #### [facility] [address] [place] [address] Dr. Alejandra TrotterChloride [Moles/Vol]97 mmol/LCritically mju28-688Kdw [facility] PrebleComment on above:Performed By: #### HSTROPN, CMP #### [facility] [address] [place] [address] Dr. Alejandra TrotterCO2 [Moles/Vol]19.7 mmol/LCritically low21.0-32.0The [facility] PrebleComment on above:Performed By: #### HSTROPN, CMP #### [facility] [address] [place] [address] Dr. Alejandra TrotterCreatinine [Mass/Vol]0.83 mg/dLNormal0.55-1.02The [facility] PrebleComment on above:Performed By: #### HSTROPN, CMP #### [facility] [address] [place] [address] Dr. Alejandra Mcdonald-AF RUSSIAN>60Normal>=60The [facility] PrebleComment on above:Performed By: #### HSTROPN, CMP #### [facility] [address] [place] [address] Dr. Alejandra NealGFR-NON AF RUSSIAN>60Normal>=60The [facility] PrebleComment on above:Performed By: #### HSTROPN, CMP #### [facility] [address] [place] [address] Dr. Alejandra TrotterGlobulin (S) [Mass/Vol]4.2 g/dLNormOhioHealth Shelby HospitalComment on above:Performed By: #### HSTROPN, CMP #### [facility] [address] [address] [address] Alejandra TrotterGlucose [Mass/Vol]389 mg/dLCritically exub38-187Tmm [facility] PrebleComment on above:Performed By: #### HSTROPN, CMP #### [facility] [address] [place] [address] Dr. Alejandra TrotterPotassium [Moles/Vol]4.3 mmol/LNormal3.5-5.1The [facility] Comment on above:Performed By: #### HSTROPN, CMP #### [facility] [address] [place] [address] Dr. Alejandra TrotterProtein [Mass/Vol]7.8 g/dLNormal6.4-8.2The [facility] Comment on above:Performed By: #### HSTROPAayush, CMP #### [facility] [address] [place] [address] Dr. Alejandra TrotterSodium [Moles/Vol]133 mmol/LCritically rkq721-861Dhp [facility]bleComment on above:Performed By: #### HSTROPN, CMP #### [facility] [address] [place] [address] Dr. Alejandra TrotterUrea nitrogen [Mass/Vol]5.0 mg/dLCritically low7.0-18.0The [facility]bleComment on above:Performed By: #### HSTROPN, CMP #### [facility] [address] [place] [address] Dr. Alejandra TrotterUrea nitrogen/Creatinine [Mass ratio]6.0 mg/mgNoGreene Memorial HospitalComment on above:Performed By: #### HSTRALVARADO, CMP #### [facility] [address] [place] [address] Dr. Alejandra GageMATIC COVID-19 ANTIGENon 67-19-5027WLG StatementSEE BELOW NormalThe [facility] on above:Result Comment: This test has not been FDA [...] declaration is terminated or authorization is revoked sooner.Performed By: #### CVDAGS #### [facility] [address] [place] [address] Dr. Alejandra Wilkerson-CoV-2 (COVID-19) RNA NEENA+probe Ql (Unsp spec)NegativeNormal NEGATIVEThe [facility] Hospitalment on above:Performed By: #### CVDAGS #### [facility] [address] [place] [address] Dr. Alejandra Valladares, HIGH SENSITIVITYon 73-95-6166JWFDMR1.6 pg/mLNormal 4.0-51.3The [facility] on above:Result Comment: CUT-OFF POINTS HAVE BEEN ESTABLISHED BASED ON THE FOURTH UNIVERSAL DEFINITIONS OF MYOCARDIAL INFARCTION. THE UPPER REFERENCE LIMIT (URL) OF TROPONIN, DEFINED THE 99TH PERCENTILE OF cTnI DISTRIBUTION IN A REFERENCE POPULATION, HAS BEEN CONFIRMED THE DECISION THRESHOLD FOR AR DIAGNOSIS.Performed By: #### HSTROPAayush, CMP #### [facility] [address] [place] [address] Dr. Alejandra TrotterXR CHEST 2 Von [id number] CHEST 2 VEXAMINATION: XR CHEST 2 V HISTORY: Acute upper [...] Electronically authenticated by: LORETA MACKENZIE Date: 2022-10-19 21:48[facility] HospitalCOVID Quick Testingon 21-51-0628EsiurqDldudevpAlxij [place] Other Vital Signs Date TimeVital SignValuePerforming MwjvjtmtfMrqaedof22-27-2562 13:44-0400Body ucsklg889.2 Leonard Christianson MD Work Phone: [phone] [place], [place] [address]Buunrnnpnn71-30-4155 13:44-0400Body mass index (BMI) [Ratio]32.42 kg/i7BeygzMeghna Christianson MD Work Phone: [phone] [place], [place] [address]Wvvehjgfjr34-12-6555 13:44-0400Body icqior11.89 kgMeghna Christianson MD Work Phone: [phone] [place], [place] [address]Lyfhhjzsmo02-31-5665 13:44-0400Heart rate99 /min Meghna Christianson MD Work Phone: [phone] [place], [place] [address]Mmvrgwhssv28-23-4700 13:44-0400Respiratory rate20 /minMeghna Christianson MD Work Phone: [phone])152-[address] [place], [place] [address]Erloxmzpyw38-85-5996 13:44-2306SiV4% (BldA) [Mass fraction]99 %Meghna Christianson MD Work Phone: [phone]07-29-2025 13:32-0400Body hizizc435.7 Kavitha Keen MD Work Phone: [facility]07-29-2025 13:32-0400Body mass index (BMI) [Ratio]26.33 kg/s3ZqpqeCarmen Keen MD Work Phone: [facility]07-29-2025 13:32-0400Body onamav02.56 kgCarmen Keen MD Work Phone: [facility]07-29-2025 13:32-0400Diastolic blood epmunoly31 mm[Hg]Carmen Keen MD Work Phone: [facility]07-29-2025 13:32-0400Systolic blood mm[Hg]Carmen Keen MD Work Phone: [facility]07-10-2025 13:18-0400Body .3 cmMelany Raedy DO Work Phone: [facility]07-10-2025 13:18-0400Body mass index (BMI) [Ratio]24.32 kg/k0Sfprqb Raedy DO Work Phone: [facility]07-10-2025 13:18-0400Body weight 74.71 kgMelany Raedy DO Work Phone: [facility]07-10-2025 13:18-0400Diastolic blood ldaqpxij28 mm[Hg]Stanton Raedy DO Work Phone: [facility]07-10-2025 13:18-0400Heart rate89 /minMelany Raedy DO Work Phone: [facility]07-10-2025 13:18-7006FoG8% (BldA) [Mass fraction]97 %Stanton Raedy DO Work Phone: [facility]07-10-2025 13:18-0400Systolic blood owhxeint904 mm[Hg]Stanton Raedy DO Work Phone: [facility]06-19-2025 06:47-0400Body trjlpjuivlc35.7 [degF]Rikki Oscar MD Work Phone: [facility]06-19-2025 06:47-0400Diastolic blood oadplcwm67 mm[Hg]Rikki Oscar MD Work Phone: [facility]06-19-2025 06:47-0400Heart rate77 /Rachel Oscar MD Work Phone: [phone]-[facility]06-19-2025 06:47-0400 Respiratory rate16 /Rachel Oscar MD Work Phone: [phone]-[facility]06-19-2025 06:47-6796HnE3% (BldA) [Mass fraction]96 %Rikki Ocsar MD Work Phone: [phone]-[facility] HospitalLen[facility]Cent[facility]06-19-2025 06:47-0400Systolic blood diggcfns978 mm[Hg]Rikki Oscar MD Work Phone: [phone]-[facility]06-19-2025 06:23-0400Body rfedzk195.7 Michele Oscar MD Work Phone: [phone]-[facility] HospitalLenoraCent[facility]06-19-2025 05:45-0400Body mass index (BMI) [Ratio]23.72 kg/m2Rikki Oscar MD Work Phone: [phone]-[facility]06-19-2025 05:45-0400Body .76 kgRikki Oscar MD Work Phone: [phone]-[facility]06-18-2025 19:51-0400Body xnnnedcvxms37Urhl Seamons MD Work Phone: [phone]-[facility]06-04-2025 12:54-0400Body zzpgoy335.7 [facility]06-04-2025 12:54-0400Body mass index (BMI) [Ratio]23.05 kg/m2[facility]06-04-2025 12:54-0400Body hibkrl41.77 [facility]06-04-2025 12:54-0400Diastolic blood kyqtkwur63 mm[Hg][facility] 12-06-2024 12:54-0400Systolic blood zbnkrjpy812 mm[Hg][facility]04-16-2025 09:23-0400Diastolic blood mgkygdsn99 mm[Hg]Flory Toure DO Work Phone: [facility] [employer]04-16-2025 09:23-0400Systolic blood edqyvxpt74 mm[Hg]Flory Toure DO Work Phone: [facility] [employer]04-16-2025 07:48-0400Body bxfsqedefxm41.6 [degF]Flory Toure DO Work Phone: [facility] [employer]04-16-2025 07:48-0400Heart rate75 /minJenniferia Toure DO Work Phone: [facility]04-16-2025 07:48-0400 Respiratory rate20 /minFlory Toure DO Work Phone: [facility] [employer]04-16-2025 07:48-6495LtL5% (BldA) [Mass fraction]97 %Flory Toure DO Work Phone: [facility] [employer]04-16-2025 04:30-0400Body mass index (BMI) [Ratio]20.98 kg/m4Opgxtzr Toure DO Work Phone: [facility] [employer]04-16-2025 04:30-0400Body gaztvg65.6 kgFlory Toure DO Work Phone: [facility] [employer]04-14-2025 22:51-0400Body cnytfk040.7 cmFlory Toure DO Work Phone: [facility] [employer]04-10-2024 09:29-0400Body .2 cmGomez Green APRN-SENIOR RISK ANALYST Work Phone: [facility] Nfapea93-13-4700 09:29-0400Body mass index (BMI) [Ratio]21.68 kg/l1MbjqahGomez Green APRN-SENIOR RISK ANALYST Work Phone: [facility] Jckmde05-05-9299 09:29-0400Body anejabmkbxf11.2 [degF]Gomez Green APRN-SENIOR RISK ANALYST Work Phone: [employer]04-10-2024 09:Body elpsbx87.78 kgGomez Green APRN-SENIOR RISK ANALYST Work Phone: [facility] HospitalGlassesOff Zhrtto92-59-7775 09:Diastolic blood mm[Hg]Gomez Green APRN-SENIOR RISK ANALYST Work Phone: [facility] efw-suhl Fcrzmj13-43-6580 09:Heart rate 110 /minGomez Green APRN-SENIOR RISK ANALYST Work Phone: [facility] Cmwsnk97-46-0646 09:5343HdV0% (BldA) [Mass fraction]97 %Gomez Green APRN-SENIOR RISK ANALYST Work Phone: [facility] Vtbgnt24-97-1654 09:Systolic blood mm[Hg]Gomez Green APRN-SENIOR RISK ANALYST Work Phone: [facility] Nhysoe29-24-5995 08:22-0500Body xxrzhu821.7 cmGomez Green APRN-SENIOR RISK ANALYST Work Phone: [facility] Uyracc13-84-1275 08:22-0500Body mass index (BMI) [Ratio]23.11 kg/g9IxmlsnGomez Green APRN-SENIOR RISK ANALYST Work Phone: [facility]fw[facility]suhl Fereib97-99-8905 08:22-0500Body qykgrjdpbrp71.5 [degF]Gomez Green APRN-SENIOR RISK ANALYST Work Phone: [facility] Ifdorc19-65-8955 08:22-0500Body syzcqz93.95 kgGomez Green APRN-SENIOR RISK ANALYST Work Phone: [facility] Rpwfab94-81-2504 08:22-0500Diastolic blood mm[Hg]Gomez Green APRN-SENIOR RISK ANALYST Work Phone: [facility] Hpqpda06-84-0664 08:22-0500Heart rate 98 /minGomez Green MERCHANT PATROLLER-SENIOR RISK ANALYST Work Phone: [facility] efw[facility]suhl Gayjvr88-94-9638 08:22-7455WrK5% (BldA) [Mass fraction]98 %Gomez Green MERCHANT PATROLLER-SENIOR RISK ANALYST Work Phone: [facility] efw[facility]suhl Azwfes83-36-6397 08:22-0500Systolic blood ygupwpvh108 mm[Hg]Gomez Green MERCHANT PATROLLER-SENIOR RISK ANALYST Work Phone: [facility]fw[facility]su[facility] Upcyjn63-99-3608 13:04-0500Body vijaeo493.7 cmThao Perez DO Work Phone: [facility]fw[facility]suhl Uemsay58-02-4748 13:04-0500Body mass index (BMI) [Ratio]23.17 kg/w4QjjxnTeri Perez DO Work Phone: [facility]fw[facility]hl Zxmnpt60-57-7033 13:04-0500Body .13 kgTeri Perez DO Work Phone: [facility]fw[facility]suhl Qpbycb69-14-3184 13:04-0500Diastolic blood wqilaums23 mm[Hg]Teri Perez DO Work Phone: [facility]fw[facility]suhl Wuqwwy29-99-7307 13:04-0500Systolic blood makztubt394 mm[Hg]Teri Perez DO Work Phone: [facility]fw[facility]suhl Dqtkhq71-73-3288 10:52-0500Body zlqbob915.7 cmGomez Green MERCHANT PATROLLER-SENIOR RISK ANALYST Work Phone: [facility]fw[facility]suhl Znzbyd84-41-1087 10:52-0500Body mass index (BMI) [Ratio]23.16 kg/p9PuheijGomez Green MERCHANT PATROLLER-SENIOR RISK ANALYST Work Phone: [facility] efw[facility]suhl Xhzxek47-56-5051 10:52-0500Body kuptgkjfngt02.6 [degF]Gomez Green MERCHANT PATROLLER-SENIOR RISK ANALYST Work Phone: [facility]fw[facility]suhl Xwccae10-24-3145 10:52-0500Body jcytby74.08 kgGomez Green APRN-LYNNETTE Work Phone: [facility] efw-suhl Everbt28-27-0904 10:52-0500Diastolic blood dxefersb37 mm[Hg]Gomez Green APRN-SENIOR RISK ANALYST Work Phone: [facility]fw[facility]suhl Ueingv00-97-2769 10:52-0500Heart rate 100 /minGomez Green APRN-SENIOR RISK ANALYST Work Phone: [facility]02-23-2024 10:52-2874LmE2% (BldA) [Mass fraction]97 %Gomez Green APRN-SENIOR RISK ANALYST Work Phone: [facility] efw[facility]suhl Psehxa13-69-6392 10:52-0500Systolic blood ztgybqtu971 mm[Hg]Gomez Green APRN-SENIOR RISK ANALYST Work Phone: [facility]01-21-2022 11:32-0500Body kyulep601.3 cmStanton Raedy DO Work Phone: [facility] efw-suhl Zjivpq01-24-0088 11:32-0500Body mass index (BMI) [Ratio]36.39 kg/p6Lrtzjd Raedy DO Work Phone: [facility] efw-suhl Rdwqto45-50-0301 11:32-0500Body .1 [degF]Stanton Johnsony DO Work Phone: [facility] efw-suhl Otlxcu74-41-6672 11:32-0500Body weight 111.77 kgRadhaany Raedy DO Work Phone: [facility] efw-suhl Uqoauy69-29-1102 11:32-0500Diastolic blood uyzpoxzs31 mm[Hg]Stanton Raedy DO Work Phone: [facility] efw-suhl Phpcvt98-80-6840 11:32-0500Heart rate82 /minMelany Raedy DO Work Phone: [facility] efw[facility]suhl Svxdwc40-70-7662 11:32-0500Respiratory rate16 /minMelany Raedy DO Work Phone: [facility]01-21-2022 11:32-1536RzY1% (BldA) [Mass fraction]100 %Stanton Kohler DO Work Phone: [facility]01-21-2022 11:32-0500Systolic blood dpcuadgn652 mm[Hg]Stanton Kohler DO Work Phone: [facility]01-06-2022 12:30-0500Body height 175.3 cmDaalyssia Juares Jr., DO Work Phone: [phone] [place] [address] efw-suhl Dckggc71-68-5599 12:30-0500Body mass index (BMI) [Ratio]36.48 kg/s1Lcfsfalyssia Juares JrHelen, DO Work Phone: 1([phone])[address] [place], [place] [address]01-06-2022 12:30-0500Body .01 [degF]Loreta Mor Harmon, DO Work Phone: 1([phone] [place], [place] [address]70901-06-2022 12:30-0500Body weight 112.04 kgDavidiana Juares Jr., DO Work Phone: [phone] [place] [address] efw-suhl Xmfzls76-07-0003 12:30-0500Diastolic blood oaoooobr87 mm[Hg]Loreta Conwaydurgarandall Pedraza., DO Work Phone: [phone] [place], [place] [address]70901-06-2022 12:30-0500Systolic blood mm[Hg]Loreta Conwaydurgarandall , DO Work Phone: [phone] [place] [address] efw-suhl Eyndgh62-40-4758 17:15-0400Body height 171.45 Deidrahernan HoCharley Other [employer] Other 10-29-2021 17:15-0400Body mass index (BMI) [Ratio] 33.94 kg/m9Ewywha Dymond Other [employer] Other 10-29-2021 17:15-0400Body temwkcuzbej12.5 [degF]Lenora Whitehead Other nort [employer] Other 10-29-2021 17:15-0400Body vrqfpe25.79 kgLenora Whitehead Other noInvesticare [place] Other 10-29-2021 17:15-0400Respiratory rate18 /minLenora Whitehead Other [facility] Other 10-29-2021 17:15-3109RtF6% (BldA) [Mass fraction]98 % Lenora Whitehead Other [facility] Other Encounters Encounter DateEncounter TypeCare ProviderFacilityStart: 04-16-2025 End: 23-41-8337Rrvusd outpatient new 45 minutesMeghna Christianson MD Work Phone: noms Jessa EndocrinologyComment on above: Postablative hypothyroidism (Primary Dx); Thyroid noduleStart: 04-16-2025 End: 27-10-3377Mimwxndelaney Christianson MD Work Phone: [facility] EndocrinologyStart: 04-16-2025 End: 44-74-6776Hjcvwipapi Christianson MD Work Phone: [facility] EndocrinologyStart: 04-16-2025 End: 59-27-1237nrfcrhqonyMPZGE F SABBAGHNot AvailableStart: 02-27-2025 End: 72-91-3414Qacxrz OnlyLaureen Patel [facility] Physicians Obstetrics/GynecologyComment on above:Abnormal TSH (Primary Dx)Start: 02-12-2025 End: 86-79-7216Sxstps Prabhjot Gonzaleznol[facility] Physicians Obstetrics/GynecologyComment on above:Elevated TSH (Primary Dx); Low serum prolactinStart: 02-09-2025 End: 73-11-1668Ljexns-up Zully Pete MERCHANT PATROLLER-SENIOR RISK ANALYST Work Phone: [facility] Obstetrics/GynecologyComment on above:Progesterone, Estradiol, Prolactin, Additional followed-up results: 6 Start: 02-08-2025 End: 74-75-8450isrlvgppymIPHVFU JAYLENUnityPoint Health-Finley Hospital HospitalStart: 02-08-2025 End: 84-96-6221Mxxfxhwmiy hospital visit by physicianB[facility] Schedule [facility] LABComment on above:Peripheral neuropathy due to disorder of metabolism; Weakness of both legsStart: 01-30-2025 End: 72-78-4483Ftudwg outpatient visit 15 minutesCarmen Keen MD Work Phone: [facility] Obstetrics/GynecologyComment on above:Postmenopausal syndrome (Primary Dx)Start: 01-30-2025 End: 72-73-1880nnytwmlqqaCZLNEGuthrie Corning Hospital Ambulatory PPGStart: 01-12-2025 End: 79-32-9391Tfzudm Lara Pete MERCHANT PATROLLER-SENIOR RISK ANALYST Work Phone: [facility] Obstetrics/GynecologyComment on above:Kiesha glabrata infection (Primary Dx)Start: 01-11-2025 End: 31-63-3892Dkitci outpatient new 30 minutesStanton Kohler DO Work Phone: [facility] N JESSA AVEComment on above: Weakness (Primary Dx)Start: 97-85-0551dcbebupfywZZKWNI [facility] HospitalStart: 01-10-2025 End: 37-94-3566Lagzfdckk department patient visitMICHAEL FUNEZMercy Health Defiance Hospital HospitalStart: 11-60-2666kyhzszzsvsDBGARI L RAUCHMerMercy Health St. [facility] HospitalStart: 12-25-2024 End: 53-66-4906btrbxaslckQKGW KROTZERSt. Francis Hospital HospitalStart: 12-25-2024 End: 58-48-1121Nibedvmhpe hospital visit by [facility] UltrasoundComment on above:Nipple dischargeStart: 12-20-2024 End: 58-86-0812Arxaqdfbpv and management of inpatientRikki Celestina QUAN Work Phone: mthz [facility]ENTERU MED SURGComment on above:Diabetic ketoacidosis without coma associated with type 2 diabetes mellitus (HCC) (Primary Dx)Start: 12-20-2024 End: 05-59-0164Idhzpj Lara Pete MERCHANT PATROLLERThink-Now Work Phone: [facility] Obstetrics/GynecologyComment on above:Vasomotor symptoms due to menopause (Primary Dx); Brain fog; IrritabilityStart: 12-12-2024 End: 79-70-6604Iebszf Lara Pete MERCHANT PATROLLERThink-Now Work Phone: [facility] Obstetrics/GynecologyComment on above:Kiesha glabrata infection; Vaginal yeast infectionHistory of uterine fibroidStart: 12-08-2024 End: 47-26-3065swhchnteptCNNRCPUniversity of Michigan Health HospitalStart: 12-08-2024 End: 86-00-3354Cgbowcjuzr hospital visit by [facility] LABComment on above:Lumbar radiculopathyThyroid noduleAcute pain of left kneeStart: 12-07-2024 End: 02-17-6269Mnfzfr Shirley Solis [facility] Physicians Obstetrics/GynecologyComment on above:Nipple discharge (Primary Dx)Kiesha glabrata infection (Primary Dx); Vaginal yeast infectionStart: 12-06-2024 End: 81-51-4196Cvtnapmco encounterJessica Pete MERCHANT PATROLLER-[employer] Work Phone: [facility] Physicians Obstetrics/GynecologyStart: 12-06-2024 End: 65-62-4469Rwisxmj encounter procedurePRappahannock General Hospital System Start: 12-06-2024 End: 92-39-7620Bmagwubb preventive med est patient 40-64yrsPws Ob Lining Presser [facility] - CyldeComment on above:Well woman exam with routine gynecological exam (Primary Dx); Screening mammogram for breast cancer; Screening for STD (sexually transmitted disease); Acute vaginitis; History of uterine fibroid; Nipple discharge; Pelvic pain; Screening for colon cancerStart: 12-06-2024 End: 27-46-1167hgpzkcjqcoDLVLBHammond General Hospital Ambulatory PPGStart: 22-85-8140Dwrxfsjcl for gynecological examination (general) (routine) without abnormal findingsHammond General Hospital Ambulatory PPGStart: 11-14-2024 End: 12-41-3121ymvseegbsqQXSQQKJ A ENDERSCincinnati Shriners Hospitaltart: 11-14-2024 End: 24-34-0951Vskgcpqswx hospital visit by Pilar Green APRN - LYNNETTE Work Phone: [facility] LABComment on above:Swelling of both lower extremities; Type 2 diabetes mellitus with hyperglycemia, without long-term current use of insulin (HCC)Start: 11-14-2024 End: 85-29-8176Ltigbwznq encounterBonnie Hubbard Regional HospitalMedica Call CenterComment on above:ResultsStart: 10-19-2024 End: 25-21-4858Yobfejgcj encounterDiane Restrepo RN Work Phone: [facility] Internal Medicine - Family MedicineComment on above:Transition Of CareStart: 10-16-2024 End: 92-14-3038Pjlveaacob and management of inpatientJaveria J Toure DO Work Phone: mthz [facility]ENTERU MED SURGComment on above:Swelling of both lower extremities (Primary Dx); Edema, unspecified type; Type 2 diabetes mellitus with hyperglycemia, without long-term current use of insulin (HCC)Start: 10-29-2023 End: 07-35-5400Lczggoujb encounterAnny Vee CMAProMedica Physicians Internal Medicine - Family MedicineComment on above:Preventative ScreeningStart: 10-19-2023 End: 52-77-8991SbfzamHernando Green APRN-SENIOR RISK ANALYST Work Phone: [facility] Internal Medicine - Family MedicineStart: 10-13-2023 End: 46-32-8743dugfcvposdYJXDHD L RAUCHProCleveland Clinic Lutheran Hospitaltart: 10-13-2023 End: 34-58-6362Fnudzb outpatient visit 25 minutesGomez Green MERCHANT PATROLLERThink-Now Work Phone: [facility] Physicians Internal Medicine - Family MedicineComment on above:Acquired hypothyroidism (Primary Dx); Type 2 diabetes mellitus with hyperglycemia, without long-term current use of insulin ([facility]); Goiter; Smoking; History of Sjogren's disease ([facility])Start: 09-01-2023 End: 18-32-7438jogpqxljtdRTEMSC Libby GREENParma Community General Hospitaltart: 09-01-2023 End: 42-99-9874Nkergcc encounter statusGomez Green MERCHANT PATROLLERThink-Now Work Phone: [facility] HospitalH[facility] Work Phone: Start: 09-01-2023 End: 74-68-2026Pupdvhey preventive med est patient 40-64yrsGomez Libby Green MERCHANT PATROLLERThink-Now Work Phone: [facility] Physicians Internal Medicine - Family MedicineComment on above:Wellness examination (Primary Dx); Other specified diabetes mellitus with hyperglycemia, without long-term current use of insulin ([facility]); Graves disease; Acquired hypothyroidism; Special screening for malignant neoplasm of colon; SmokingStart: 08-31-2023 End: 82-93-8158Xxwtnahqq for gynecological examination (general) (routine) without abnormal findingsTeri Perez [employer] Work Phone: Kanbanizetart: 08-31-2023 End: 21-77-1704Tcfmmak encounter procedureTeri Perez DO Work Phone: [place]etart: 08-31-2023 End: 40-35-0963Bgpcqnus preventive med est patient 40-64yrsThao Perez [employer] Work Phone: [facility] Physicians Obstetrics/GynecologyComment on above:Well woman exam with routine gynecological exam (Primary Dx); Screening mammogram for breast cancer; Cervical smear, as part of routine gynecological examination; History of uterine fibroid; Menorrhagia with regular cycle; History of Graves' disease; History of cervical cancer; Smoker; Weight loss; History of Sjogren's disease ([facility])Start: 10-22-6508Gvsxap OnlyJessyniall Green MERCHANT PATROLLER-SENIOR RISK ANALYST Work Phone: [facility] Internal Medicine - Family [facility] Centertart: 08-27-2023 End: 45-08-9820qfwrskhmtcYQHXIJ L RAUCHParma Community General Hospitaltart: 08-27-2023 End: 75-11-8748Oxubej outpatient new 45 minutesJessyniall Souza Norma MERCHANT PATROLLER-SENIOR RISK ANALYST Work Phone: [facility] Phys[facility] Internal Medicine - Family MedicineComment on above:Encounter for medical examination to establish care (Primary Dx); Graves' disease; Acquired hypothyroidism; Sjogren syndrome, unspecified ([facility]); Goiter; Malignant neoplasm of cervix, unspecified site ([facility]); Hyperglycemia; Hyperlipidemia, unspecified hyperlipidemia type; Smoking; Nail fungus; HyperpigmentationStart: 08-27-2023 End: 19-23-5739Dadrpdm encounter statusGomez Libby Green MERCHANT PATROLLER-SENIOR RISK ANALYST Work Phone: [facility] Work Phone: Start: 10-19-2022 End: 42-82-5826vhlsoajyrdHN DOCTOR MISCFacility:Y4Ujxrx: 03-17-2022 End: 47-35-7588qpfiojjiblQO DOCTOR MISCFacility:E2Rddsd: 07-25-2021 End: 17-74-2832[place] outpatient visit 40 minutesStanton Kohler DO Work Phone: [facility] NeurologyComment on above: Nocturnal leg movements (Primary Dx)Start: 07-10-2021 End: 09-69-5666Csfzuw outpatient new 45 minutesDavarghesed Johnathan Juares DO Work Phone: [employer] RheumatologyComment on above:History of Sjogren's disease (Primary Dx); Hyperpigmentation of skin of cheek; Xerostomia; Dry mouth; Dry eyes; Telangiectasia of face; Hypothyroidism, unspecified type; Hyperglycemia; Basedow's disease; Keratoconjunctivitis sicca; Osteoarthritis of right hand, unspecified osteoarthritis type; Osteoarthritis of left foot, unspecified osteoarthritis type; Lumbar degenerative disc diseaseStart: 05-02-2021(URG) Urgent Care VisitPamela DymondFPG Urgent [facility] Tommy Procedures DateProcedureProcedure DetailPerforming ClinicianStart: 02-08-2025 End: 97-54-7075Snnlynjy kinase totalTrice Araiza MD Work Phone: start: 54-79-2803AYCUYRD B12 & FOLATETrice Araiza MD Work Phone: start: 61-01-0501Vo breast uni real time with image limitedLisa Juan R MERCHANT PATROLLER - TRANSLATOR Work Phone: Start: 12-25-2024 End: 32-30-4432Vkbagtqvpx mammography computer-aided detcj Janett Pete MERCHANT PATROLLER - TRANSLATOR Work Phone: Start: 72-30-9163HDFNYBO, WHOLE BLOODMark Pk Herron MD Work Phone: Start: 73-71-2895WNQXVQM, WHOLE BLOODMark Pk Herron MD Work Phone: Start: 55-52-4876Rbrhud ecg 1-3 leads w/interpretation & reportUnknown Provider ResultStart: 40-66-2244Gwwvu count complete auto&auto difrntl wbcMegan L Heather MERCHANT PATROLLER - SENIOR RISK ANALYST Work Phone: Start: 65-71-4958DDSKSMT, WHOLE BLOODMark Pk Herron MD Work Phone: Start: 52-87-2808Qgahh dip stick/tablet reagent auto microscopyMegan L Heather MERCHANT PATROLLER - SENIOR RISK ANALYST Work Phone: Start: 89-91-1673Jpjep metabolic panel calcium total Rikki Oscar MD Work Phone: Start: 12-87-3224LULEPTN, WHOLE BLOODRikki Oscar MD Work Phone: Start: 12-20-2024 End: 12-24-3253Rz head/brain w/o contrast materialRikki Oscar MD Work Phone: Start: 42-49-9677Skm routine ecg w/least 12 lds w/i&r Rikki Oscar MD Work Phone: Start: 33-10-0606Wwytb gases any combination ph pco2 po2 co2 fxm0XhuiRikki Oscar MD Work Phone: Start: 22-13-3145Sbshwywqikskr metabolic panelRikki Oscar MD Work Phone: Start: 71-70-5542POQUCUJ, WHOLE BLOODRikki Oscar MD Work Phone: Start: 36-26-9962Vw soft tissue head & neck real time imge Leda Clancy MD Work Phone: Start: 31-87-6945Jbbujjhbmo examination knee 1/2 views Shelley Clancy MD Work Phone: Start: 82-80-3074Tjgrzfzakuttf metabolic panelUnknown Provider ResultStart: 04-56-1529Aioen albumin quantitativeUnknown Provider ResultStart: 90-13-4704CLKSWUO, WHOLE BLOODChristopher Diana Avila MD Work Phone: Start: 73-93-6051CCZKQFP, WHOLE BLOODChristopher Diana Avila MD Work Phone: Start: 99-64-8634Ndjnx of thyroid stimulating hormone tshShandry RazoBhupinder MERCHANT PATROLLER - SENIOR RISK ANALYST Work Phone: Start: 44-70-5910Swdrdt ecg 1-3 leads w/interpretation & reportUnknown Provider ResultStart: 88-89-2654Ahpfj of osmolality urineJill E Hemmelgarn DO Work Phone: Start: 81-09-9674Qfhzl albumin quantitativeJill E Hemmelgarn DO Work Phone: Start: 10-17-2024 End: 89-82-9303MIQGTDT, WHOLE BLOODChristopher Diana Avila MD Work Phone: Start: 92-98-4008Qd angio abd&plvis cntrst mtrl w/wo cntrst imgSellis Byrd for; to (do) Work Phone: Start: 10-17-2024 End: 95-49-7393Vvzfjk ecg 1-3 leads w/interpretation & reportUnknown Provider ResultStart: 34-59-3864Bqhuw dip stick/tablet reagent auto microscopyMeshandra Romero MERCHANT PATROLLER [employer] Work Phone: Start: 77-86-4471Gwdzxwmkic glycosylated g1eRwyxoshandra Romero MERCHANT PATROLLER [employer] Work Phone: Start: 03-02-9771RVWQLOT, WHOLE BLOODChristopher Diana Avila MD Work Phone: Start: 10-16-2024 End: 29-59-0476Qko routine ecg w/least 12 lds i&r onlyJaveria J Toure Five9 Work Phone: Start: 95-03-9765Icbdahkgirsat metabolic panelJaveria J Toure Five[employer] Work Phone: Start: 09-14-6628Huist depression screening assessment Gomez Green MERCHANT PATROLLERThink-Now Work Phone: Start: 55-12-7592Dlphu depression screening assessment Gomez Norma MERCHANT PATROLLERThink[employer] Work Phone: Start: 31-98-3299Bfejsrsiuzeq [Mass/volume] in Urine by Test stripJessyniall Norma MERCHANT PATROLLERThink-Now Work Phone: Start: 06-11-3202Orbxi depression screening assessment Teri Perez DO Work Phone: Start: 43-27-9408Uatpdltztav observation [Identifier] in Cervix by Cyto stainGomez Norma MERCHANT PATROLLERThink-[employer] Work Phone: Start: 33-55-5146Fphqw depression screening assessment Gomez Norma [employer]CHANT PATROLLERThink[employer] Work Phone: Start: 25-05-9832BjlrkbzlzfsPcxdrt Rauch MERCHANT PATROLLER-SENIOR RISK ANALYST Work Phone: Plan of Treatment DateCare ActivityDetailAuthorStart: 75-66-1431Snjmumavs for malignant neoplasm of breastBreast cancer screenBon [facility] CenterMoonfruit [facility] HospitalShort Fuze [facility] Hospitalart: 24-67-6512Ifgdqbsvr for malignant neoplasm of cervixPap SmearCleveland Clinic Foundation SystemStart: 70-78-2055Ygioqct CounselingTobacco CounselingCleveland Clinic Foundation SystemStart: 05-48-4317Gvhvv BMI ScreeningAdult BMI ScreeningCleveland Clinic Foundation SystemStart: 82-04-9630Dwnnlwc ScreeningTobacco ScreeningCleveland Clinic Foundation SystemStart: 59-52-9729Qrdlg BMI ScreeningAdult BMI ScreeningCleveland Clinic Foundation SystemStart: 26-45-8719Msyhqtq ScreeningTobacco ScreeningFrye Regional Medical Centertart: 87-70-0060Strzrahor for malignant neoplasm of breastMammogramFrye Regional Medical Centertart: 90-25-3691TTK test (Diabetes, CKD 3-4, OR last GFR 15-59)GFR test (Diabetes, CKD 3-4, OR last GFR 15-59)[facility] AmericaLe Floch DepollutionAvita Health System Ontario Hospitalart: 12-06-2025 Adult BMI ScreeningAdult BMI ScreeningFrye Regional Medical Centertart: 12-06-2025 Tobacco ScreeningTobacco ScreeningFrye Regional Medical Centertart: 89-83-1062YBD test (Diabetes, CKD 3-4, OR last GFR 15-59)GFR test (Diabetes, CKD 3-4, OR last GFR 15-59)[facility] AmericaLe Floch DepollutionWestern Reserve Hospital: 92-76-6750Lthet screening for protein Diabetic Alb to Cr ratio (uACR) testBon [facility]: 53-67-1972ITM test (Diabetes, CKD 3-4, OR last GFR 15-59)GFR test (Diabetes, CKD 3-4, OR last GFR 15-59)[facility] AmericaSDI-Solution [facility]: 64-27-5868Fdsui screening for protein Diabetic Alb to Cr ratio (uACR) testBon [facility] Medical CenterSDI-Solution [facility] Hospitalart: 07-17-2025 End: 77-75-1409Loogvdc encounter zaxhzsmbu66/13/2026 2:30 PM EST Office Visit [facility] [address] [place] [address] Meghna Christianson MD [address] [place] [address] NOMMxa [facility]anilla EndocrinologyStart: 04-16-2025 End: 16-09-7629Qkqwbau encounter gghwsitbx44/13/2025 2:40 PM EDT Office Visit [facility] [address] [place] [address] Meghna Christianson MD [address] [place] [address] ArrivedNOMS Quintanilla EndocrinologyComment on above:ArrivedStart: 04-16-2025 End: 37-72-8088Iatnahldlcc [Units/volume] in Serum or PlasmaTSH Lab Routine Postablative hypothyroidism Expected: 04/16/2025 (Approximate), Expires: 04/16/2026[facility] HealthcareComment on above:Expected: 04/16/2025 (Approximate), Expires: 04/16/2026Start: 04-16-2025 End: 22-25-0205Nsbpsznhq (T4) free [Mass/volume] in Serum or PlasmaT4, free Lab Routine Postablative hypothyroidism Expected: 04/16/2025 (Approximate), Expires: 04/16/2026[facility] HealthcareComment on above:Expected: 04/16/2025 (Approximate), Expires: 04/16/2026Start: 04-16-2025 End: 87-81-4262Aizmooynjwiqcytj (T3) Free [Mass/volume] in Serum or PlasmaT3, free Lab Routine Postablative hypothyroidism Expected: 04/16/2025 (Approximate), Expires: 04/16/2026[facility] Work Phone: Comment on above:Expected: 04/16/2025 (Approximate), Expires: 04/16/2026Start: 03-22-2025 End: 97-15-6250Skhujml encounter dmvwovvrm14/18/2025 2:20 PM EDT Office Visit [facility] Part of [address] [place] [address] Trice Araiza MD [address] [place] [address] [address] [place] [address] Peripheral Neuropathy ; 1 mth follow up EEG, [facility] NE[facility]OLOG[facility] Part [facility] HospitalComment on above:Peripheral Neuropathy ; 1 mth follow up EEG, labsStart: 03-06-2025 End: 73-44-3313Pglpmtz encounter pwrkcsock15/02/2025 2:15 PM EDT Office Visit [facility] [address] [facility] [place] [id number] Carmen Keen MD [address] [facility] [place] [address] [facility] Obstetrics/GynecologyStart: 08-61-7806Tfshzdrvj vaccinationSelect Medical Specialty Hospital - Columbusca [facility] SystemStart: 67-74-1301Bksikjp CounselingTobacco CounselingCleveland Clinic Foundation SystemStart: 02-08-2025 End: 29-55-8791Muctrog encounter jqxvqdyhr22/07/2025 1:20 PM EDT Office Visit [facility] Part of [address] [place] [address] Trice Araiza MD [address] [place] [address] Dr [address] [place] [address] [facility] NEUROLOGY [facility] ConnecticutComformerly [facility] on above: ALSStart: 02-05-2025 End: 72-93-8606Vrxxxgs encounter stzbvgbos52/04/2025 1:40 PM EDT Office Visit [facility] Part of [address] [place] [address] Trice Araiza MD [address] [facility] [address] [place] [address] [facility] NEUROLOGY Part of [facility] Medical CenterComment on above: ALSStart: 38-14-0013Tskmiwiuf vaccinationBon [facility]aritan HospitalStart: 01-30-2025 End: 65-63-3870Plcsajw encounter bfrlkwhcu15/29/2025 1:30 PM EDT Office Visit [facility] [address] [facility] [place] [address] Carmen Keen MD [address] [facility] [place] [address] [facility]stetric[facility]/GynecologyStart: 01-18-2025 End: 17-90-1909PggmsziyixheqlfpVTO & NERVE CONDUCTION Neurology Routine Weakness Expected: 01/18/2025, Expires: 01/11/2026[facility] SystemComment on above: Expected: 01/18/2025, Expires: 01/11/2026Start: 02-16-5025Pirkhpbxux A1c cnnfdiwaulgB1X test (Diabetic or Prediabetic)[facility] HospitalStart: 01-01-2025 End: 07-27-3192Vkqujcv encounter eyrcmxsrn97/30/2025 4:45 PM EDT Appointment [facility] Physical Therapy [address] [place], [place] [id number] Bobby Graves, PTMAsha Physical TherapyStart: 01-01-2025 End: 33-20-4219Rgkrjqn encounter procedureUpper Valley Medical Center MammographyComment on above:media/ptStart: 12-25-2024 End: 11-00-2356Kzyuwaw encounter procedureUpper Valley Medical Center MammographyComment on above:media/ptStart: 12-12-2024 End: 37-17-7403Ebetlmo encounter ukpgxjfza23/10/2025 1:00 PM EDT Appointment [facility] Ultrasound [address] [place], [place] [id number] media/ptMercy Health Houston UltrasoundComment on above:media/pt Start: 12-07-2024 End: 85-26-9952CM Breast - bilateral limitedUltrasound breast limited bilateral Imaging Routine Nipple discharge Expected: 12/07/2024, Expires:12/07/2025 [employer] Work Phone: Comment on above:Expected: 12/07/2024, Expires: 12/07/2025Start: 12-06-2024 End: 07-39-7546RW Breast DiagnosticMammography diagnostic bilateral with CAD Imaging Routine Nipple discharge Expected: 12/06/2024, Expires: 12/06/2025 [facility] Medical CenterSubimage SystemComment on above:Expected: 12/06/2024, Expires: 12/06/2025Start: 12-06-2024 End: 08-35-6139NB Pelvis transabdominal and transvaginalUltrasound pelvic with transvaginal Imaging Routine History of uterine fibroid Pelvic pain Expected: 12/06/2024, Expires: 12/06/2025Grace Cottage HospitalGlassesOff University Of Michigan HealthComment on above:Expected: 12/06/2024, Expires: 12/06/2025Start: 10-25-2024 End: 20-06-2314Uhyhd metabolic 2000 panel - Serum or PlasmaBasic Metabolic Panel Lab Routine Swelling of both lower extremities Type 2 diabetes mellitus with h yperglycemia, without long-term current use of insulin (HCC) Expected: 10/25/2024, Expires: 10/18/2025on [employer] [facility]riners HospitalComment on above: Expected: 10/25/2024, Expires: 10/18/2025Start: 10-25-2024 End: 42-48-6419QZA W Auto Differential panel - BloodCBC with Auto Differential Lab Routine Swelling of both lower extremities Type 2 diabetes mellitus with hyperglycemia, without long-term current use of insulin (HCC) Expected: 10/25/2024, Expires: 10/18/2025on [employer] TVComment on above: Expected: 10/25/2024, Expires: 10/18/2025Start: 62-71-4381Xqbqv BMI Screening Adult BMI ScreeningProGlassesOff St. [facility]'s Health Partnerstart: 22-10-8631Lhsfkxlspe Screening Depression ScreeningProSycamore Medical Center SystemStart: 97-91-1628Dufeatv Screening Tobacco ScreeningProSycamore Medical Center SystemStart: 10-33-8351Ezljl BMI Screening Adult BMI ScreeningProSycamore Medical Center SystemStart: 27-02-7775Qcvsgwjfbi Screening Depression ScreeningProSycamore Medical Center SystemStart: 26-12-9374Gtjzivmu foot examinationDiabetic Foot ExamProSycamore Medical Center SystemStart: 80-57-4603Pngvuzs ScreeningTobacco ScreeningProSycamore Medical Center SystemStart: 82-98-2221Qbgac screening for proteinUrine MicroalbuminProSycamore Medical Center SystemStart: 08-31-2024 Adult BMI ScreeningAdult BMI ScreeningProSycamore Medical Center SystemStart: 08-31-2024 Depression ScreeningDepression ScreeningProSycamore Medical Center SystemStart: 08-31-2024 Tobacco ScreeningTobacco ScreeningProSycamore Medical Center SystemStart: 86-59-7637Vpngm BMI ScreeningAdult BMI ScreeningProSycamore Medical Center SystemStart: 08-27-2024 Depression ScreeningDepression ScreeningProSycamore Medical Center SystemStart: 08-27-2024 Tobacco ScreeningTobacco ScreeningProSycamore Medical Center SystemStart: 99-27-5493OKCTK- 19 Vaccine ( season)COVID-19 Vaccine ( season)[facility] HospitalStart: 32-62-8068Nztjjsdrt vaccinationInfluenza VaccineProSycamore Medical Center SystemStart: 10-13-2023 End: 15-22-1721PU Thyroid glandUltrasound thyroid Imaging Routine Goiter Expected: 10/13/2023, Expires: 10/12/2024[facility] Work Phone: Comment on above:Expected: 10/13/2023, Expires: 10/12/2024Start: 10-13-2023 End: 50-36-6296Rhezanl encounter unqipcqyr69/10/2024 8:40 AM EDT Office Visit [facility] Family Medicine [address] [place] [address] Gomez Green, MERCHANT PATROLLER-SENIOR RISK ANALYST [address] [place] [address] [facility] Medicine - Family MedicineStart: 09-15-2023 End: 08-33-8686Olgkprf encounter rgrynaxub52/13/2024 9:30 AM EDT Office Visit [facility] [address] [facility] [place] [phone] Teri Perez DO [address] [place], [place] [address] [facility] Obstetrics/GynecologyStart: 09-01-2023 End: 66-81-4855Fptzfzy encounter zdipluvla40/28/2024 8:30 AM EST Office Visit [facility] Family [facility] [address] [place] [address] Gomez Green, MERCHANT PATROLLER-[facility] [address] [place] [address] [facility] Medicine - Family MedicineStart: 08-31-2023 End: 44-28-9832Fxxrlhcvwyhiu procedure, preparation of smear, genital sourcePap Smear Pathology and Cytology Routine Cervical smear, as part of routine gynecological examination Expected: 08/31/2023 (Approximate), Expires: 08/31/2024ProSy[facility] Medical Center SystemComment on above:Expected: 08/31/2023 (Approximate), Expires: 08/31/2024Start: 08-31-2023 End: 55-96-5736OXO Breast - bilateral screeningMammography screening bilateral with CAD Imaging Routine Screening mammogram for breast cancer Expected: 08/31/2023, Expires: 08/31/2024[facility] Hospital - ColumbusIntelliMat Work Phone: Comment on above:Expected: 08/31/2023, Expires: 08/31/2024Start: 08-31-2023 End: 12-67-0967ZG Pelvis transabdominal and transvaginalUltrasound pelvic with transvaginal Imaging Routine History of uterine fibroid Menorrhagia with regular cycle Expected: 08/31/2023, Expires: 08/31/2024[facility] SystemComment on above:Expected: 08/31/2023, Expires: 08/31/2024Start: 08-31-2023 End: 80-34-3823Vvdbmhx encounter ijbbknbux54/27/2024 1:00 PM EST Office Visit [facility] [address] [facility] [place] [address] Teri Perez DO [address] [place], [place] [address] [facility] Obstetrics/GynecologyStart: 88-86-4315FFwN,Tdap and Td Vaccines (2 - Td or Tdap) DTaP,Tdap and Td Vaccines (2 - Td or Tdap)[facility] SystemStart: 16-24-0284CNdV/Tdap/Td vaccine (2 - Td or Tdap)DTaP/Tdap/Td vaccine (2 - Td or Tdap)[facility] HospitalStart: 81-46-5256Lhnouci vaccinationTETANUSACleveland Clinic Medina Hospital SystemStart: 18-55-0906Pfalrcgws vaccinationInfluenza VaccineFrye Regional Medical Centertart: 80-75-0920Skaavjujq for malignant neoplasm of breastBreast cancer screenBon Samaritan HospitalStart: 07-16-2022 End: 94-76-5012Risdwxp encounter tttulxyvv78/12/2023 Office Visit Rheumatology Mor Harmon, Loreta Mann, DO [address] [place] [address] [facility] RheumatologyStart: 06-23-2022 End: 58-21-6171U-reactive proteinC REACTIVE PROTEIN Lab Routine History of Sjogren's disease Hyperpigmentation of skin of cheek Xerostomia Dry mouth Dry eyes Telangiectasia of face Hypothyroidism, unspecified type Hyperglycemia Based ow's disease Keratoconjunctivitis sicca Osteoarthritis of right hand, 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, unspecified osteoarthritis type Lumbar degenerative disc disease Expected: 06/23/2022 (Approximate), Expires: 07/10/2022[facility] CenterComment on above:Expected: 06/23/2022 (Approximate), Expires: 07/10/2022Start: 06-23-2022 End: 73-73-6275E7 COMPLEMENTC3 COMPLEMENT Lab Routine History of Sjogren's disease Hyperpigmentation of skin of cheek Xerostomia Dry mouth Dry eyes Telangiectasia of face Hypothyroidism, unspecified type Hyperglycemia 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, 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, unspecified osteoarthritis type Lumbar degenerative disc disease Expected: 06/23/2022 (Approximate), Expires: 07/10/2022[facility] CenterComment on above:Expected: 06/23/2022 (Approximate), Expires: 07/10/2022Start: 06-23-2022 End: 51-19-2679U5 COMPLEMENTC4 COMPLEMENT Lab Routine History of Sjogren's disease Hyperpigmentation of skin of cheek Xerostomia Dry mouth Dry eyes Telangiectasia of face Hypothyroidism, unspecified type Hyperglycemia 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, 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, unspecified osteoarthritis type Lumbar degenerative disc disease Expected: 06/23/2022 (Approximate), Expires: 07/10/2022[facility] CenterComment on above:Expected: 06/23/2022 (Approximate), Expires: 07/10/2022Start: 06-23-2022 End: 97-18-0016JDGQ Lab Routine History of Sjogren's disease Hyperpigmentation of skin of cheek Xerostomia Dry mouthDry eyes Telangiectasia of face Hypothyroidism, unspecified type Hyperglycemia Basedow's disease Ker atoconjunctivitis sicca Osteoarthritis of right hand, 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, unspecified osteoarthritis type Lumbar degenerative disc disease Expected: 06/23/2022 (Approximate), Expires: 07/10/2022[facility] CenterComment on above:Expected: 06/23/2022 (Approximate), Expires: 07/10/2022Start: 06-23-2022 End: 05-80-5567Ovjquuon blood count with white cell differential, automatedCBC, EDIF, PLATELET Lab Routine History of Sjogren's disease Hyperpigmentation of skin of cheek Xerostomia Dry mouth Dry eyes Telangiectasia of face Hypothyroidism, unspecified type Hyperglycemia 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, 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, unspecified osteoarthritis type Lumbar degenerative disc disease Expected: 06/23/2022 (Approximate), Expires: 07/10/2022[facility] CenterComment on above:Expected: 06/23/2022 (Approximate), Expires: 07/10/2022Start: 06-23-2022 End: 59-53-0024Nnjgquehyahne metabolic 2000 panel - Serum or PlasmaCOMPREHENSIVE METABOLIC PANEL Lab Routine History of Sjogren's disease Hyperpigmentation of skin ofcheek Xerostomia Dry mouth Dry eyes Telangiectasia of face Hypothyroidism, unspecified type Hyperglycemia 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, unspecified osteoar thritis type Osteoarthritis of left foot, unspecified osteoarthritis type Lumbar degenerative disc disease Expected: 06/23/2022 (Approximate), Expires: 07/10/2022[facility] CenterComment on above:Expected: 06/23/2022 (Approximate), Expires: 07/10/2022Start: 06-23-2022 End: 63-68-2857ZBQSBRFMQSIOZ RATE, AUTOMATEDSEDIMENTATION RATE, AUTOMATED Lab Routine History of Sjogren's disease Hyperpigmentation of skin ofcheek Xerostomia Dry mouth Dry eyes Telangiectasia of face Hypothyroidism, unspecified type Hyperglycemia 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, 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, unspecified osteoarthritis type Lumbar degenerative disc disease Expected: 06/23/2022 (Approximate), Expires: 07/10/2022[facility] CenterComment on above:Expected: 06/23/2022 (Approximate), Expires: 07/10/2022Start: 06-23-2022 End: 98-98-1875Oknovxmaus dipstick W Reflex Microscopic panel - UrineURINE MICROSCOPIC Fluids Routine History of Sjogren's disease Hyperpigmentation of skin of cheek Xerostomia Dry mouth Dry eyes Telangiectasia of face Hypothyroidism, unspecified type Hyperglycemia 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, 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, unspecified osteoarthritis type Lumbar degenerative disc disease Expected: 06/23/2022 (Approximate), Expires: 07/10/2022[facility] CenterComment on above:Expected: 06/23/2022 (Approximate), Expires: 07/10/2022Start: 06-23-2022 End: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 Lung sounds are clear. Abdomen is soft and non tender. Pt denies N/V/D. Patient denies pain. Vitals are WNL. BS 166. Patient denies further needs at thistime. Call light is within reach. Care ongoing. 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 Nutrition Related Findings: active b/s. no edema. Wound Type: None Current Nutrition Intake & Therapies: Average Meal Intake: Unable to assess (no PO records) Average Supplements Intake: None Ordered ADULT DIET; Regular; 3 carb choices (45 gm/meal) Anthropometric Measures: Height: 172.7 cm (5' 8 ) Cook Body Weight (IBW): 140 lbs (64 kg) [...] Used for Energy Requirements: Current Energy (kcal/day): 9237-6523 (23-25) Weight Used for Protein Requirements: Current [...] current diet Derick Grijalva RD, LD Contact: [phone] * Nancy Boucher RN - 12/21/2024 5:59 AM EDT Patient ambulated to the bathroom and back to bed with cane. She tolerated fairly well. Patient denies dizziness or mobility issues. Call light and bedside table remain within reach. Care ongoing. * Maura Nice RN - 12/21/2024 1:12 AM EDT Patient arrived to engineering writer from ED. Report given from ED to primary nurse ALIE Cruz. Patient ambulated to the bed with assistance and tolerated well. Patient alert and oriented x4. Able to answer questions appropriately and follow commands. Vitals and assessment as charted. Admission navigator completed. Medications reviewed. Bed alarm on, bed locked, gripper socks on, call light within reach andable to use appropriately. Plan of care ongoing. Patient denies any further needs at this time. documented in this encounterBon Samaritan Hospital06-19-[facility]25 Hospital Discharge instructions* Discharge Instr - Activity* Maite Hargrove RN - 12/21/2024 1:17 PM EDT As tolerated * Discharge Instr - Diet* Maite Hargrove RN - 12/21/2024 1:17 PM [...] at most local grocery stores, pharmacies, and [employer]-stores. If you have any questions about your diet or nutrition, call the hospital and ask for the dietitian. Diabetic diet Per Mold Polisher: Try and eat 45 grams of carbohydrates each meal. * Attachments The following attachments cannot be sent through Care Everywhere. * Hyperglycemia: General Info ([place]ese) documented in this encounterBon Samaritan Hospital06-18-2025 History of Present illness Narrative* SVETA Duckworth - 12/20/2024 10:29 AM EDT Phone call to patient to discuss labs and ultrasound that were completed in [place] on 12/12/24. U/S showed a small fibroid, otherwise WNL. HIV, hepatitis and syphilis negative. Prolactin slightly low.Patient would like her hormones checked, states she has brain fog, facial hair, night sweats and irritability. Labs ordered and faxed to [place]. Patient to follow up with Dr. Keen to discuss labs and possible treatment. Patient states she has her diagnostic mammogram scheduled for later this month. SVETA Duckworth APRN-CNP 12/20/24 1034 documented in this encounterMartin Memorial Hospital06-10-2025 Miscellaneous Notes* Telephone Encounter - Juliann Bhatia - 12/12/2024 9:34 AM EDT Pt states [facility] has not received RX for boric acid 600mg suppository. Called [facility] and spoke with Corinna in the Pharmacy. Corinna verified they did not receive RX. Pleaseresend. Thank you * Telephone Encounter - SVETA Duckworth - 12/12/2024 9:34 AM EDT RX resent. * Telephone Encounter - Juliann Bhatia - 12/12/2024 9:34 AM EDT LVM advising RX was resent. documented in this encounterMartin Memorial Hospital06-10-2025 Telephone encounter Note* Telephone Encounter - Juliann Bhatia - 12/12/2024 9:34 AM EDT Pt states [facility] has not received RX for boric acid 600mg suppository. Called [facility] and spoke with Corinna in the Pharmacy. Corinna verified they did not receive RX. Pleaseresend. Thank you [facility]06-10-2025 Telephone encounter Note* Telephone Encounter - SVETA Dukcworth - 12/12/2024 9:34 AM EDT RX resent. [facility] Work Phone: 1(970) 196-677106-10-2025 Telephone encounter Note* Telephone Encounter - Juliann Bhaita - 12/12/2024 9:34 AM EDT LVM advising RX was resent. [facility]06-05-20[facility] History of Present illness Narrative* Kelly Solis CMA - 12/07/2024 10:22 AM EDT Per scheduling they need a bilateral breast ultrasound ordered with the diagnostic mammogram. Orderplaced. documented in this encounterMartin Memorial Hospital06-04-2025 Miscellaneous Notes* Telephone Encounter - Juliann Bhatia - 12/06/2024 2:21 PM EDT Patient called asking for Mammogram and Pelvic Ultrasound orders to be faxed to [facility]. Fax number is [phone]. * Telephone Encounter - Juliann Bhatia - 12/06/2024 2:21 PM EDT Orders successfully faxed to [facility] and confirmation scanned into Shift Foreman. documented in this encounterMartin Memorial Hospital06-04-2025 Telephone encounter Note* Telephone Encounter - Juliann Bhatia - 12/06/2024 2:21 PM EDT Patient called asking for Mammogram and Pelvic Ultrasound orders to be faxed to [facility]. Fax number is [phone]. [facility]06-[facility] Telephone encounter Note* Telephone Encounter - Juliann Coronaetz - 12/06/2024 2:21 PM EDT Orders successfully faxed to [facility] and confirmation scanned into Shift Foreman. [employer] [employer]06-04-2025 History of Present illness Narrative* Jessica Pete, MERCHANT PATROLLER-LYNNETTE - 12/06/2024 1:00 PM EDT Anayeli Hidalgo is a pleasant 49 y.o. female who presents for annual obstetrician/gynecologist exam. 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 Hysterectomy: no She is not currently sexually active. Occasional right lower quadrant pain. Patient reports hx of auterine fibroid. Patient would like all STD testing [...] provided. All questions answered. RTO for annual obstetrician/gynecologist exam and / or PRN. SVETA Duckworth APRN-CNP 12/06/24 1342 documented in this encounterSelect Medical Specialty Hospital - ColumbusTriLumina Corp. [id number] Miscellaneous Notes* Telephone Encounter - SVETA Pal - 11/14/2024 9:52 PM EDT Received a phone call in poor signal area at 1721 tonight from after hrs then [facility] lab stating pt critical BG of 605 (I believe that is what the lab had states although signal was poor). Called office and no ER records available on pt. Called and spoke w/ pt when provider came into better signal area [phone] regarding very high BG. Pt states she is now seeing [facility] in [place] for PCP and they had ordered lab testing which she had drawn at 1600 this afternoon. Currently she is A&O and only c/o mildly blurry vision. She has no othersymptoms at this time. She has not been driving last several weeks for this reason. She had previously declined medical treatment for her DMII with me in office but states she has come to terms that she needs treatment and accepted insulin Rx from her new PCP. She gave herself a dose of long actinginsulin 40 units a few min ago. Her BG monitor is reading high for last several days so she knowsher BG has been high. I advised her to get checked out in the ER due to dangerously high BG reading. She will call her ride back (her daughter) to pick her up and is agreeable to seek treatment in ER. Pt thanked provider for calling her. She was advised to f/u with her new PCP as directed by ER. documented in this encounterMartin Memorial Hospital05-13-2025 Telephone encounter Note* Telephone Encounter - SVETA Pal - 11/14/2024 9:52 PM EDT Received a phone call in poor signal area at 1721 tonight [facility] critical BG of 605 (I believe that is what the lab had states although signal was poor). Called office and no ER records available on pt. Called and spoke w/ pt when provider came into better signal area 0 regarding very high BG. Pt states she is now seeing [facility] in [place] for PCP and they had ordered lab testing which she had drawn at 1600 this afternoon. Currently she is A&O and only c/o mildly blurry vision. She has no othersymptoms at this time. She has not been driving last several weeks for this reason. She had previously declined medical treatment for her DMII with me in office but states she has come to terms that she needs treatment and accepted insulin Rx from her new PCP. She gave herself a dose of long actinginsulin 40 units a few min ago. Her BG monitor is reading high for last several days so she knowsher BG has been high. I advised her to get checked out in the ER due to dangerously high BG reading. She will call her ride back (her daughter) to pick her up and is agreeable to seek treatment in ER. Pt thanked provider for calling her. She was advised to f/u with her new PCP as directed by ER. [facility] [id number] Miscellaneous Notes* Telephone Encounter - Bonnie Aguilar - 11/14/2024 5:17 PM EDT Contract: 198 Sosa calling from [employer] with critical results. Call [phone]. * Telephone Encounter - Bonnie Aguilar - 11/14/2024 5:17 PM EDT Lm for SVETA Pal * Telephone Encounter - Bonnie Aguilar - 11/14/2024 5:17 PM EDT SVETA Pal called back and was connected to Sosa documented in this encounterSelect Medical Specialty Hospital - ColumbusIntelliMat [facility] Medical [id number] Telephone encounter Note* Telephone Encounter - oBnnie Aguilar - 11/14/2024 5:17 PM EDT Contract: 198 Sosa calling from [employer] with critical results. Call [phone]. [facility] efw-suhl [id number] Telephone encounter Note* Telephone Encounter - Bonnie Aguilar - 11/14/2024 5:17 PM EDT Lm for Gomez Souza NormaSVETA [facility] efw-suhl [id number] Telephone encounter Note* Telephone Encounter - Bonnie Aguilar - 11/14/2024 5:17 PM EDT Gomez GreenPAULO-LYNNETTE called back and was connected to Sosa [facility]04-17-2025 Miscellaneous Notes* Telephone Encounter - Diane Restrepo RN - 10/19/2024 8:54 AM EDT A user error has taken place: encounter opened in error, closed for administrative reasons. NEW PCP. No longer PPG. documented in this encounterMartin Memorial Hospital04-17-2025 Telephone encounter Note* Telephone Encounter - Diane Restrepo RN - 10/19/2024 8:54 AM EDT A user error has taken place: encounter opened in error, closed for administrative reasons. NEW PCP. No longer PPG. [facility] efw-suhl [facility] Work Phone: 1(102) 276-203804-16-2025 History of Present illness Narrative* Kelly Otoole RN - 10/18/2024 2:05 PM EDT Pt taken down via wheelchair to private car for discharge at this time. Pt belongings in hand. * Bonnie Aguilera RN - 10/18/2024 2:04 PM EDT Patient discharged home in stable condition. Discharge instructions and medications reviewed with patient. Educated patient on potential side effects of new medications. Provided education material on hyperglycemia and diabetic diet. All questions answered. Patient left with all belongings. * Kaykay Le - 10/18/2024 12:25 PM EDT Nutrition Education Educated on Diabetes; carbohydrate servings and nutrition labels. Learners: Patient Readiness: Acceptance Method: Explanation, Demonstration, and Handout Response: Verbalizes Understanding and Demonstrated Understanding Upon f/u pt and buying intern went over nutrition labels and carbohydrate food list to help pt visualize serving sizes of carbohydrates. Education went over a typical day of eating for the pt and applied it to the foods list. Pt and buying intern also went over nutrition food labels [...] and number provided. Kaykay Le Contact Number: [phone]igned [address], VIVIAN at 10/18/2024 12:38 PM EDT * Kelly Otoole RN - 10/18/2024 11:56 AM EDT ALIE Nicole at bedside and pt not in room. Java Software Developer notified Switchboard of pt being off the floor. Pt and daughter came off elevator and engineering writer explained to pt that she is not allowed to leave the floor. Pt states Oh I didn't, we just went for a walk downstairs. Java Software Developer asked pt if she went outside to smoke and pt declines but pt smelled like smoke. Jeri aerosol supervisor notified at this time. * Kelly Otoole RN - 10/18/2024 8:43 AM EDT Java Software Developer at bedside with Dr. Avila and Karime CHURCH. Dr. Avila notified of pt's low BP of 84/47. Pt complaining of headache. No new orders at this time. * Bonnie Aguilera RN - 10/18/2024 7:48 AM EDT Vitals and assessment completed at this time. Patient up in chair, A&Ox4. Patient c/o headache and intermittent L groin pain. Lungs clear, heart sounds normal. No needs at this time. Call light and bedside table in reach. Will continue to monitor. * Ramonita Da Silva RN - 10/17/2024 8:50 PM EDT Patient's room picked up and organized. Trash and linen changed. Patient denies any further needs at this time. Call light is within reach, care is ongoing. * Ramonita Da Silva RN - 10/17/2024 7:28 PM EDT Java Software Developer at bedside to complete evening assessment. Upon entry to room, pt awake and in bed, respirations normal and unlabored while on room air. Vitals obtained and assessment completed, see flow sheet for details. Pt denies needs from engineering writer at this time. Call light in reach. Care is ongoing. * Katie Valdivia OTR/Libby - 10/17/2024 3:39 PM EDT Occupational Therapy Facility/Department: [facility] Occupational Therapy Initial [...] mobility ;Decreased ADL status;Decreased strength;Decreased balance;Decreased endurance;Decreased high- level IADLs;Decreased coordination Assessment: 49 y/o F admitted to [facility] for DM2 with hyperglycemia. Patient presents [...] Safety education & training, Patient/Caregiver education & training,Equipment evaluation, education, & procurement, Self-Care / ADL, [...] Level of Assist for Transfers: Independent Active Striper: Yes Objective Observation/Palpation Posture: Fair Safety Devices [...] to Learning: None Education Outcome: Verbalized understanding -[facility] - ADL [facility] Daily Activity - Inpatient How much [...] How much help for eating meals?: None AM-[facility] Inpatient Daily Activity Raw Score: 19 [facility] Inpatient ADL T-Scale Score : 40.22 ADL Inpatient CMS 0-100% Score: 42.8 ADL Inpatient [facility] G-Code Modifier : CK Goals Short [...] Time Individual Concurrent Group Co-treatment Time In 1334 Time Out 1350 Minutes 15 TIKA Matias Cosigned by Dipti Romero APRN - CNP at 10/17/2024 9:54 PM EDT * Matthias Fleming, PT - 10/17/2024 2:21 PM EDT Physical Therapy Facility/Department: [facility] Physical Therapy Initial [...] Level of Assist for Transfers: Independent Active Striper: Yes Vision/Hearing Vision Vision: Impaired Vision Exceptions: [...] perform bed mobility tasks and transfers with AR Short Term Goal 3: Patient will tolerate [...] - CNP at 10/17/2024 9:53 PM EDT * Matthias Fleming PT - 10/17/2024 12:58 PM EDT [facility] Inpatient/Observation/Outpatient Rehabilitation Date: 10/17/2024 Patient Name: Anayeli Hiadlgo [x] Inpatient Acute/Observation [] Outpatient : 1975 [x] Pt refused/declined therapy at this time due to: Patient reported she was too tired for PT. Therapist/Community Assistant will attempt to see this patient, at our earliest opportunity. Matthias Fleming, PT, DPT, OCS, Cert. DN Date: 10/17/2024 Cosigned by Dipti Romero APRN - CNP at 10/17/2024 9:53 PM EDT * Kaykay Le - 10/17/2024 11:25 AM EDT Comprehensive Nutrition Assessment Type and Reason [...] (pectoralis & deltoids) Fluid Accumulation: Mild Extremities Manager Human Capital Strength: Not Performed Nutrition Assessment: Food and nutrition-related knowledge deficit r/t endocrine dysfunction aeb poor intake prior to admission. Pt was told about pre-diabetes diagnosis on 08/30/23 causing them to follow a fasting diet resulting in rapid weight loss. Pt weighed 152 on 08/30/23 and lowered to around 130. Pt expressed theywere diagnosis with diabetes last month causing a change to their diet. Diet consisted of carbohydra te counting with low amounts of fat intake. In the chart report pt expressed being around 100# whenbeing admited to the [facility] last week when leaving (around 10/12) pt experienced swelling. Upon abmission to [facility] pt weighed 132# having an increase of 30#. RLE/LLE +3 pitting edema. Edema along with decreased fat in the orbital region and decreased muscle mass in the temples, clavicles, and hands results in a moderate malnutrition digonsis. cosmetology educator was in the room going over [...] Measures: Height: 172.7 cm (5' 8 ) Cook Body Weight (IBW): 140 lbs (64 kg) [...] Normal Weight (BMI 18.5-24.9) Hematology: Recent Labs 10/16/24193410/17/2452910/18/2415 WBC 4.7 3.5 4.2 HGB 11.7* 11.3* [...] Used for Energy Requirements: Current Energy (kcal/day): 9785-0891 (33-36 kcal/kg) Weight Used for Protein Requirements: Cook Protein (g/day): 64-77 (1.0-1.2g/kg) Fluid (ml/day): 2000 [...] Findings Discharge Planning: Continue current diet Kaykay eL Contact: [phone] Cosigned by Derick Grijalva, RD, LD at 10/18/2024 12:53 PM EDT * Renu Lim, PT - 10/17/2024 11:04 AM EDT [facility] Inpatient/Observation/Outpatient Rehabilitation Date: 10/17/2024 Patient Name: [...] does not require skilled services due to: Therapist/Community Assistant will attempt to see this patient, at our earliest opportunity. Renu Lim, PT, DPT Date: 10/17/2024 * Karime Byrd, PAULO - SENIOR RISK ANALYST - 10/17/2024 7:55 AM EDT Progress Note SUBJECTIVE: Patient seen for f/u of Type 2 diabetes mellitus with hyperglycemia (HCC). She resting in bed with daughter at side. She reported she is not a med taker . She admitted that she did not take the medsthat was given last year to her. She says now she has everything written down and following it now.Discussed her sugars and fluid intake ROS: Constitutional: [...] ml Output 950 ml Net 210 ml Exam: GEN: Awake, alert and oriented x3. [...] intact SKIN: No rashes. No skin lesions. Diagnostic Data: Complete Blood Count: Recent Labs 10/16/24193410/17/24 0530 WBC 4.7 3.5 RBC 3.49* 3.42* HGB 11.7* 11.3* HCT 35.7* 34.7* MCV 102.3 101.5 MCH 33.5 33.0 MCHC 32.8 32.6 RDW 13.3 13.5 PLT 238 219 MPV 10.4 10.1 Last 3 Blood Glucose: Recent Labs 10/16/24193410/17/24 0530 GLUCOSE 567* 248* Comprehensive Metabolic Profile: Recent Labs 10/16/24 1935 10/17/24 0530 NA 130* 137 K 4.5 3.8 [...] and HS A1c pending Telemetry monitoring Consult hematology nurse educator Imaging: no further imaging studies ordered [...] 1 in a.m. Nutrition status: moderate malnutrition Mold Polisher consult initiated I/O Daily weight Monitor Daily intake Nutritional Supplements as tolerated MALNUTRITION ASSESSMENT AND PLAN The following was documented by the Dietitian: Malnutrition Assessment Context of Malnutrition: Acute Illness (10/17/241132) Acute Illness - Energy Intake : No [...] Accumulation Location: Extremities (10/17/241132) Acute Illness - Manager Human Capital Strength: Not Performed (10/17/241132) Acute Illness - Malnutrition Score: 8 (10/17/241132) Malnutrition Status: Moderate malnutrition (10/17/241132) I agree with the dietitian's malnutrition assessment. Medical Nutrition Therapy: oral supplements T Hospital Prophylaxis: DVT: Lovenox Stress Ulcer: H2 Sae Disposition: Shared decision making: All test results, treatment options and disposition options were discussed with the patient today Social determinants of health that may impact management: none Code status: Full Code Disposition: Discharge plan is pending [facility] Advanced Care Planning documentation: [x] I have confirmed that the patient's Advance Care Plan is present, Code Status is documented, orsurrogate decision maker is listed in the patient's [...] the patient's medical record. [DOES NOT SATISFY MIPS PERFORMANCE] Karime Byrd APRN - LYNNETTE , [place] [place]-[facility] Hospitalist Medicine 10/17/2024, 12:11 PM Cosigned by Becky Avila MD at 10/17/2024 5:52 PM EDT Associated attestation - Becky Avila MD - 10/17/2024 5:52 PM EDT Becky Avila M.D. Internal Medicine PA/TRANSLATOR Attestation Note Patient: Anayeli Hidalgo Date of Admission: 10/16/2024 7:22 PM Date of Evaluation: 10/17/2024 I personally evaluated and examined the patient [id number] in conjunction with the PA/TRANSLATOR and agree with the management and dispostition of the patient. Please see the PA/TRANSLATOR's note for full details.My manley findings are: SUBJECTIVE: Anayeli Hidalgo is [...] and is willing to start taking meds. Sh e denies chest pain, palpitations or SOB. She [...] ml Output 2350 ml Net -330 ml Exam: GEN: Awake, alert and oriented x [...] images are provided for review. Automated exposure control,iterative reconstruction, and/or weight based adjustment of the mA/kV was utilized to reduce the radiation dose to as low as reasonably achievable. COMPARISON: None. HISTORY: ORDERING SYSTEM PROVIDEDHISTORY: leg edema / hx of cervical ca TECHNOLOGIST PROVIDED HISTORY: leg edema / hx of cervical caAdditional Contrast?->1 FINDINGS: CTA ABDOMEN: No abdominal aortic [...] occlusion or abnormal filling defect. Uterus and urinarybladder appear grossly unremarkable. Moderate diffuse body wall [...] or diabetes insipidus Diabetic education consult requested Mold Polisher consult requested Labs: Monitor BMP, CBC, POC glucose A1c 14.3 Insulin level and C-peptide ordered, pending Urine protein/creatinine ordered to r/o nephrotic syndrome Imaging: CTA abd/pelvis ordered due to BLE pitting edema, assess for possible IVC thrombosis / obstruction =results negative Medications: Continue Metformin, Glipizide and Lantus which were initiated at [facility] during recent admission for hyperglycemia Continue Humalog sliding scale Hypoglycemic protocol in place IV Lasix x 1 ordered for bilateral LE pitting edema Disposition: Discharge plan is pending SHARED APC VISIT, PHYSICIAN ATTESTATION: [id number] I personally performed a substantive part of [...] applicable Management and/or test interpretation discussed with Karime Razo, LYNNETTE Avila MD , M.Diana. 10/17/2024 5:51 PM * Britta Melvin - 10/16/2024 11:18 PM EDT FSBS 564 ALIE Shipman aware * Ramonita Da Silva RN - 10/16/2024 10:49 PM EDT Java Software Developer at bedside to complete admission assessment, navigator and vital signs. Pt arrived to floor via ER bed. Pt transfered with assistanc3. Shift assessment, vital signs and addmission navigator complete, see flow sheet for details. Pt stated pain level is 4/10. Pt denies any other needs at this time. Call light within reach. Care is ongoing. documented in this encounterCar[facility]04-16-[facility]25 Hospital Discharge instructions* Discharge Instr - Activity* Bonnie Aguilera RN - 10/18/2024 1:26 PM EDT As tolerated * Discharge Instr - Diet* Bonnie Aguilera RN - 10/18/2024 1:15 PM [...] and ask for the dietitian. Diabetic Diet * Attachments The following attachments cannot be sent through Care Everywhere. * Hyperglycemia: General Info (South Sudanese) * Diabetes Diet Meal Planning: General Info ([place]ese) documented in this encounterCarilion [facility]an[facility]04-26-2024 Miscellaneous Notes* Telephone Encounter - Anny Vee CMA - 10/29/2023 3:28 PM EDT Care Coordination Outreach performed to coordinate overdue appointments, testing, and/or follow-up care: Yes Audit/Outreach Date: October 29, 2023 Reason: Colorectal Cancer Screening Method: Telephone and Letter Outreach Attempt: First Outcome: Left Message and letter sent Next PCP Appointment: N/A Tests/Referrals Pended: N/A Resources/Education Provided: Additional Comments: Left message for patient to contact pharmacist critical care. Patient is overdue with cologuard order. Will send letter to patient. documented in this encounterMartin [facility] Hospital04-26-2024 Telephone encounter Note* Telephone Encounter - Anny Vee CMA - 10/29/2023 3:28 PM EDT Care Coordination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 DateCommentsPreventative Qmoehzipr08/26/2024ReasonCommentsnew patientReasonCommentsAnnual ExamPap: 3 years agoMam: 11/08/20Periods: Regular every 28-30 days, lasting 7 days, very heavyPHQ-9: 5Recurrent yeast infections after periodsReasonCommentsAnnual Exam ReasonCommentsDiabetesReasonCommentsLeg SwellingBilateral leg swelling, patient recently diagnosed with diabetes 09/08 was admitted to ICU then the medical floor, patient expresses increase pain and swelling to bilateral legs with 30lb weight gain since then.SpecialtyDiagnoses / ProceduresReferred By ContactReferred To Contact Diagnoses Type 2 diabetes mellitus with hyperglycemia (HCC) Swelling of both lower extremities Edema, unspecified type Becky Avila MD [address] [place] [address] Phone: tel: fax: [facility] [id number] [place] [address] Referral IDStatusReasonStcleveland DateExpiration DateVisits RequestedVisits [id number] DateCommentsTransition Of Care10/19/2024Reason Onset [id number]/13/2025ReasonCommentsAltered Mental StatusPatient states that for the past few days she has been having episodes of confusion shakiness. Was told by her Dr that she may be having mini strokes.Patient is a diabetic and does have some concern for blood sugar issues causing the symptoms. SpecialtyDiagnoses / ProceduresReferred By ContactReferred To Contact Diagnoses Type 2 diabetes mellitus with hyperglycemia (HCC) Ann Herron MD [address] [place] [address], [facility] [place] [address] Phone: tel: fax: [facility] [address] [place] [address] Referral IDStatusReasonStart DateExpiration DateVisits RequestedVisits [id number] PatientLast seen in Jul.Reason CommentsHRTReasonCommentsThyroid ProblemNEW NODULE REF/LAB/USSpecialtyDiagnoses / ProceduresReferred By ContactReferred To ContactEndocrinology Diagnoses Nontoxic single thyroid nodule Procedures MS OFFICE/OUTPATIENT NEW MODERATE MDM 45 MINUTES Ashlyn Rosa MD [address] [facility], [address], [place] [address] Phone: tel: fax: Meghna Christianson MD [address], [address] [place] [address] Phone: tel: fax: Referral IDStatusReasonStart DateExpiration DateVisits RequestedVisits [id number]/18/202512/15/202511 Care Teams (unrecognized sec tion and content) Team MemberRelationshipSpecialtyStart DateEnd Date Office Of Gabe Jolly Md Other [address] [place] [address] PCP - General10/29/16Team MemberRelationshipSpecialtyStart DateEnd Date Office Of Gabe Jolly Md Other [address] [place] [address] PCP - General10/29/16Team MemberRelationshipSpecialtyStart DateEnd Date Gomez Green APRN-SENIOR RISK ANALYST [address] [place] [address] PCP - GeneralInternal Medicine08/27/23Team MemberRelationshipSpecialtyStart Date End Date Gomez Green APRN-SENIOR RISK ANALYST [address] [place] [address] PCP - GeneralInternal Medicine08/27/23Team MemberRelationshipSpecialtyStart Date End Date Gomez Green MERCHANT PATROLLER-SENIOR RISK ANALYST [address] [place] [address] PCP - GeneralInternal Medicine08/27/23Team MemberRelationshipSpecialtyStart Date End Date Gomez Green [facility] [address] [place] [address] PCP - GeneralInternal Medicine08/27/23Team MemberRelationshipSpecialtyStart Date End Date Gomez Green [facility] [address] [place] [address] PCP - GeneralH[facility] Centernal Medicine08/27/23Team MemberRelationshipSpecialtyStart Date End Date Gomez Green [facility] [address] [place] [address] PCP - GeneralHavasu Regional Medical Centernal Medicine08/27/23Team MemberRelationshipSpecialtyStart Date End Date Gomez Green [facility] [address] [place] [address] PCP - GeneralHavasu Regional Medical Centernal Medicine08/27/23Team MemberRelationshipSpecialtyStart Date End Date Gomez Green MERCHANT PATROLLER [facility] [address] [place] [address] PCP - GeneralFamily Medicine10/17/24Team MemberRelationshipSpecialtyStart DateEnd Date Gomez Green MERCHANT PATROLLER [facility] [address] [place] [address] PCP - Generalmily Medicine10/17/24Team MemberRelationshipSpecialtyStart DateEnd Date Norma, Gomez Souza, MERCHANT PATROLLER - SENIOR RISK ANALYST [address] [place] [address] PCP - GeneralFamily Medicine10/17/24Team MemberRelationshipSpecialtyStart DateEnd Date Norma Gomez Souza, MERCHANT PATROLLER - SENIOR RISK ANALYST [address] [place] [address] PCP - GeneralFamily Medicine10/17/24Team MemberRelationshipSpecialtyStart DateEnd Date Norma Gomez Souza, MERCHANT PATROLLER - SENIOR RISK ANALYST [address] [place] [address] PCP - GeneralFamily Medicine10/17/24Team MemberRelationshipSpecialtyStart DateEnd Date Gomez Green, MERCHANT PATROLLER - SENIOR RISK ANALYST [address] [place] [address] PCP - GeneralFamily Medicine10/17/24Team MemberRelationshipSpecialtyStart DateEnd Date Gomez Green, MERCHANT PATROLLER - SENIOR RISK ANALYST [address] [place] [address] PCP - GeneralFamily Medicine10/17/24Team MemberRelationshipSpecialtyStart DateEnd Date Shelley Clancy MD [address] [place] [address] PCP - General12/21/24Team MemberRelationshipSpecialtyStart DateEnd Date Shelley Clancy MD [address] [place] [address] PCP - General12/21/24Team MemberRelationshipSpecialtyStart DateEnd Date Shelley Clancy MD [address] [place] [address] PCP - General12/21/24Team MemberRelationshipSpecialtyStart DateEnd Date Office Of Gabe Jolly Md Other [address] [place] [address] PCP - General10/29/16Team MemberRelationshipSpecialtyStart DateEnd Date Ashlyn Rosa MD [address] [place] [address] PCP - GeneralUnity[facility]ally Medicine01/10/25Team MemberRelationshipSpecialtyStart DateEnd Date Ashlyn Rosa MD [address] [place] [address] [facility] - [facility]01/10/25Team MemberRelationshipSpecialtyStart DateEnd Date Ashlyn Rosa MD [address] [place] [place] [address] PCP - [facility]Unity[facility] Medicine01/10/25Team MemberRelationshipSpecialtyStart DateEnd Date Shelley Clancy MD [address] [place] [address] PCP - General12/21/24Team MemberRelationshipSpecialtyStart DateEnd Date Ashlyn Rosa MD [address] [place] [address] PCP - GeneralFamily Medicine01/10/25Team MemberRelationshipSpecialtyStart DateEnd Date Ashlyn Rosa MD [address] [place] [address] PCP - Generalmily Medicine01/10/25 INFORMATION SOURCE (unrecogn ized section and content) DATE CREATED AUTHOR 10/20/2022 [facility] DATE CREATED AUTHOR AUTHOR'S ORGANIZ ATION 10/15/2023 [facility] DATE CREATED AUTHOR AUTHOR'S ORGANIZ ATION 01/14/2025 [facility] DATE CREATED AUTHOR AUTHOR'S ORGANIZ ATION 02/01/2025 [facility] DATE CREATED AUTHOR AUTHOR'S ORGANIZ ATION 02/03/2025 [facility] DATE CREATED AUTHOR AUTHOR'S ORGANIZ ATION 02/11/2025 [facility] DATE CREATED AUTHOR AUTHOR'S ORGANIZ ATION 04/17/2025 [facility] EPIC Ordered Prescriptions (unrec ognized section and content) PrescriptionSigDispense QuantityRefillsLast FilledStart DateEnd Date Insulin Syringes, Disposable, U-100 1 ML MISC 1 each by Does not apply route daily 100 each 10/18/2024 levothyroxine (SYNTHROID) 75 MCG tablet Take 1 tablet by mouth Daily 30 tablet potassium chloride (KLOR-CON M) 20 MEQ extended release tablet Take 1 tablet by mouth daily (with breakfast) 30 tablet furosemide (LASIX) 40 MG tablet Take 1 tablet by mouth daily 30 tablet insulin glargine (LANTUS) 100 UNIT/ML injection vial Inject 25 Units into the skin 2 times daily 10 mL 10/18/2024 metFORMIN (GLUCOPHAGE) 500 MG tablet Take 1 tablet by mouth Daily with supper 30 tablet insulin regular (HUMULIN R;NOVOLIN R) 100 UNIT/ML injection Inject 25 Units into the skin 2 times daily (before meals) 10 mL glipiZIDE (GLUCOTROL) 5 MG tablet Take 0.5 tablets by mouth every morning 15 tablet PrescriptionSigDispense QuantityRefillsLast FilledStart Date End Date insulin glargine (LANTUS) 100 UNIT/ML injection vial Inject 40 Units into the skin daily States 40-50 10 mL 12/21/2024 Scheduled Active and Recently Administ ered Medications (unrecognized section and content) Medication Order/ enoxaparin (LOVENOX) injection 40 mg 40 mg, SubCUTAneous, DAILY, First dose on Wed10/17/24 at 0900, Until Discontinued, Indication of Use: Prophylaxis-DVT/PE * 0833 (Given - Provider: Rupali Denney RN) * 0909 (Given - Provider: Bonnie Aguilera RN) famotidine (PEPCID) tablet 20 mg 20 mg, Oral, 2 TIMES DAILY, First dose on Wed10/16/24 at 2315, Until Discontinued * 2333 (Given - Provider: Ursula Kate RN) * 0832 (Given - Provider: Rupali Denney RN) * 205 (Given - Provider: Ramonita Da Silva RN) * 0908 (Given - Provider: Bonnie Aguilera RN) * 2100 (Due) furosemide (LASIX) injection 20 mg (COMPLETED) 20 mg, IntraVENous, ONCE, 1 dose, On Wed10/16/24 at 1945 * 2005 (Given - Provider: Zohreh Ledezma RN) furosemide (LASIX) injection 20 mg (COMPLETED) 20 mg, IntraVENous, ONCE, 1 dose, On Wed10/17/24 at 0900 * 0833 (Given - Provider: Rupali Denney RN) furosemide (LASIX) tablet 40 mg 40 mg, Oral, DAILY, First dose on Wed10/18/24 at 0915, Until Discontinued * 0913 (Given - Provider: Bonnie Aguilera RN) glipiZIDE (GLUCOTROL) tablet 2.5 mg 2.5 mg, Oral, EVERY MORNING, First dose on Wed10/17/24 at 0900, Until Discontinued * 0832 (Given - Provider: Rupali Denney RN) * 0908 (Given - Provider: Bonnie Aguilera, RN) insulin glargine (LANTUS) injection vial 25 Units 25 Units, SubCUTAneous, 2 TIMES DAILY, First dose on Wed10/16/24 at 2315, Until Discontinued * 2333 (Given - Provider: Ursula Kate RN) * 0833 (Given - Provider: Rupali Denney RN) * 2049 (Given - Provider: Ramonita Da Silva, ALIE) * 09 (Given - Provider: Bonnie Aguilera, ALIE) * 2100 (Due) insulin lispro (HUMALOG,ADMELOG) injection vial 0-8 Units 0-8 Units, SubCUTAneous, 4 TIMES DAILY BEFORE MEALS & NIGHTLY, First dose on Wed10/16/24 at 2315, Until Discontinued, Medium Dose Corrective Algorithm Glucose: Dose: 70-179 No Insulin 180-2492 Units 250-299 4 Units 300-349 6 Units Over 349 8 Units and notify physician Administer as soon aspossible within 60 minutes of last blood glucose check * 2333 (Given - Provider: Ursula Kate RN) * 0700 (Not Given - Provider: Rupali Denney RN - Reason: Order parameters not met) * 1109 (Not Given - Provider: Rupali Denney RN - Reason: Order parameters not met) * 1644 (Given - Provider: Rupali Denney RN) * 2051 (Not Given - Provider: Ramonita Da Silva RN - Reason: Order parameters not met - Comment: 119) * 0740 (Not Given - Provider: Bonnie Aguilera RN - Reason: Order parameters not met) * 1220 (Given - Provider: Bonnie Aguilera RN) * 1700 (Due) * 2100 (Due) levothyroxine (SYNTHROID) tablet 75 mcg 75 mcg, Oral, DAILY, First dose on Wed10/17/24 at 0945, Until Discontinued, Tube feeding (TF) interaction, obtain physician order to manage, recommend holding TF for 30 minutes before and after dose. * 1114 (Given - Provider: Rupali Denney RN) * 0908 (Given - Provider: Bonnie Aguilera, ALIE) metFORMIN (GLUCOPHAGE) tablet 500 mg 500 mg, Oral, EVERY MORNING, First dose on Wed10/17/24 at 0900, Until Discontinued * 0832 (Given - Provider: Rupali Denney RN) * 0908 (Given - Provider: Bonnie Aguilera, ALIE) metroNIDAZOLE (FLAGYL) tablet 250 mg 250 mg, Oral, 2 TIMES DAILY, 6 doses, First dose on Wed10/17/24 at 0945, Last dose on Wed10/19/24 at 1400, Antimicrobial Indications: Other, Other Abx Indication: trich * 1000 (Not Given - Provider: Rupali Denney RN - Reason: Other - Comment: patient took her own medication from home) * 1644 (Given - Provider: Rupali Denney RN) * 0908 (Given - Provider: Bonnie Aguilera, RN) * 1352 (Given - Provider: Bonnie Aguilera, ALIE) nicotine (NICODERM CQ) 21 MG/24HR 1 patch 1 patch, TransDERmal, Administer over 24 Hours, DAILY, First dose on Wed10/17/24 at 1700, Apply newpatch to nonhairy, clean, dry skin on the upper body or upper outer arm. Rotate patch sites. Notifypharmacy if patient or provider prefers patch to be removed at bedtime and replaced in the morning.Hazardous Medication -- Refer to facility policy for handling and disposal. * 1644 (Patch Applied - Provider: Rupali Denney RN) * 0907 (Patch Removed - Provider: Bonnie Aguilera, ALIE) * 0909 (Patch Applied - Provider: Bonnie Aguilera, ALIE) potassium chloride (KLOR-CON M) extended release tablet 20 mEq 20 mEq, Oral, DAILY WITH BREAKFAST, First dose on Wed10/18/24 at 0915, Until Discontinued, Do not crush, chew, or suck on tablet. Tablet may also be broken in half and each half swallowed separately. * 0913 (Given - Provider: Bonnie Aguilera, ALIE) sodium chloride flush 0.9 % injection 10 mL 10 mL, IntraVENous, EVERY 12 HOURS SCHEDULED (2 times per day), First dose on Wed10/16/24 at 2315, Until Discontinued * 2334 (Given - Provider: Ursula Kate RN) * 0833 (Given - Provider: Rupali Denney RN) * 205 (Given - Provider: Ramonita Da Silva RN) * 0909 (Given - Provider: Bonnie Aguilera RN) * 2100 (Due) Medication Order/// 0.9 % sodium chloride infusion (CANCELED) IntraVENous, at 50 mL/hr, CONTINUOUS, Starting on Wed10/17/24 at 0200 * 0208 (New Bag - Provider: Ursula Kate RN) * 1315 (Stopped - Provider: Bonnie Aguilera RN - Comment: not running, unknown when stopped) Medication Order/ 0.9 % sodium chloride infusion IntraVENous, at [...] Administer if oral route cannot be used. * 1114 (See Alternative - Provider: Rupali Denney RN) * 0923 (See Alternative - Provider: Bonnie Aguilera RN) acetaminophen (TYLENOL) tablet 650 mg(Linked Group 1) 650 mg, Oral, EVERY 6 HOURS PRN, Starting on Wed10/16/24 at 2249, Until Discontinued, Pain Mild (1-3), allowed for higher pain score per patient request, Fever, For temp greater than 100.4 F (38 C), Maximum dose of acetaminophen is 4000 mg from all sources in 24 hours. * 1114 (Given - Provider: Rupali Denney RN) * 0923 (Given - Provider: Bonnie Aguilera, ALIE) iopamidol (ISOVUE-370) 76 % injection 75 mL (COMPLETED) 75 mL, IntraVENous, IMG ONCE PRN, 1 dose, Starting on Wed10/17/24 at 0935, Until Wed10/17/24 at 0952, Other * 0952 (Given - Provider: Virginia Gomez) ondansetron [...] use in patients with CrCl less than 30mL/min. Do not crush, chew, or suck on [...] in patients with CrCl less than 30 mL /min. sodium chloride flush 0.9 % injection 10 mL 10 mL, IntraVENous, PRN, Starting on Wed10/16/24 at 2249, Until Discontinued, Line Care, After every IV line use Order Group 1: acetaminophen (TYLENOL) tablet 650 [...] use in patients with CrCl less than 30mL/min. Do not crush, chew, or suck on [...] in patients with CrCl less than 30 mL /min. Medication Order// dulaglutide (TRULICITY) SC injection 0.75 mg (Patient [...] given the risk for euglycemic diabetic ketoacidosis. * 0945 (Given - Provider: Radha Barajas RN) enoxaparin (LOVENOX) injection 40 mg 40 mg, SubCUTAneous, DAILY, First dose on Susy 12/21/24 at 0900, Until Discontinued, Indication of Use: Prophylaxis-DVT/PE * 0948 (Not Given - Provider: Radha Barajas RN - Reason: Patient/family refused) famotidine (PEPCID) tablet 20 mg 20 mg, Oral, 2 TIMES DAILY, First dose on Susy 12/21/24 at 0145, Until Discontinued * 0150 (Given - Provider: Maura Nice RN) * 0947 (Given - Provider: Radha Barajas, ALIE) * 2100 (Due) furosemide (LASIX) tablet 40 mg 40 mg, Oral, DAILY, First dose on Susy 12/21/24 at 0900, Until Discontinued * 0947 (Not Given - Provider: Radha Barajas RN - Reason: Patient/family refused) glipiZIDE (GLUCOTROL) tablet 2.5 mg 2.5 mg, Oral, EVERY MORNING, First dose on Susy 12/21/24 at 0900, Until Discontinued * 0947 (Not Given - Provider: Radha Barajas RN - Reason: Patient/family refused) insulin glargine (LANTUS) injection vial 40 Units 40 Units, SubCUTAneous, DAILY, First dose on Susy 12/21/24 at 0145, Until Discontinued * 0150 (Given - Provider: Maura Nice RN) insulin lispro (HUMALOG,ADMELOG) injection vial 20 Units (COMPLETED) 20 Units, SubCUTAneous, ONCE, 1 dose, On Wed12/20/24 at 2115 * 2110 (Given - Provider: Alanis Carter RN) levothyroxine (SYNTHROID) tablet 75 mcg 75 mcg, Oral, DAILY, First dose on Susy 12/21/24 at 0700, Until Discontinued, Tube feeding (TF) interaction, obtain physician order to manage, recommend holding TF for 30 minutes before and after dose. * 0945 (Not Given - Provider: Radha Barajas [...] be removed at bedtime and replaced in themorning. Hazardous Medication -- Refer to facility policy for handling and disposal. * 0133 (Not Given - Provider: Maura Nice RN - Reason: Other - Comment: notified pharmacy to change to morning) * 0945 (Patch Applied - Provider: Radha Barajas, RN) sodium chloride 0.9 % bolus 1,000 mL (COMPLETED) 1,000 mL, IntraVENous, at 495.9 mL/hr, Administer over 121 Minutes, ONCE, On Wed12/20/24 at 1945, For 1 dose * 1940 (New Bag - Provider: Alanis Carter, RN) * 2108 (Stopped - Provider: Alanis Carter, RN) sodium chloride 0.9 % bolus 1,000 mL (COMPLETED) 1,000 mL, IntraVENous, at 495.9 mL/hr, Administer over 121 Minutes, ONCE, On Wed12/20/24 at 2115, For 1 dose * 2109 (New Bag - Provider: Alanis Carter, RN) * 0132 (Stopped - Provider: Maura Nice RN - Comment: not present on arrival to [facility]) sodium chloride flush 0.9 % injection 10 mL 10 mL, IntraVENous, EVERY 12 HOURS SCHEDULED (2 times per day), First dose on Wed12/21/24 at 0900, Until Discontinued * 0948 (Not Given - Provider: Radha Barajas RN - Reason: IV Fluid Infusing) * 2100 (Due) Medication Order// 0.9 % sodium chloride infusion (CANCELED) IntraVENous, at 100 mL/hr, CONTINUOUS, Starting on Wed12/21/24 at 0145, For 24 hours, Complete lastbag that is running at 24 hours and then saline lock IV * 0145 (New Bag - Provider: Maura Nice, RN) * 0953 (Stopped - Provider: Radha Barajas, RN) Medication Order// 0.9 % sodium chloride infusion IntraVENous, at [...] at 1933, Until Wed12/20/24 at 2039, Other * 2039 (Given - Provider: Adi Ferrer) ondansetron (ZOFRAN) injection 4 mg(Linked Group 2) 4 mg, IntraVENous, EVERY 6 HOURS PRN, Starting on Susy 12/21/24 at 0115, Until Discontinued, Nausea, Vomiting, Administer if oral route cannot be used. ondansetron (ZOFRAN-ODT) disintegrating tablet 4 mg(Linked Group 2) 4 mg, Oral, EVERY 8 HOURS PRN, Starting on Susy 12/21/24 at 0115, Until Discontinued, Nausea, Vomiting polyethylene glycol (GLYCOLAX) packet 17 g 17 g, Oral, DAILY PRN, Starting on Susy 12/21/24 at 0115, Until Discontinued, Constipation, First line [...] use in patients with CrCl less than 30mL/min. Do not crush, chew, or suck on [...] in patients with CrCl less than 30 mL /min. sodium chloride flush 0.9 % injection 10 mL 10 mL, IntraVENous, PRN, Starting on Susy 12/21/24 at 0115, Until Discontinued, Line Care, After every IV line use Order Group 1: acetaminophen (TYLENOL) tablet 650 [...] use in patients with CrCl less than 30mL/min. Do not crush, chew, or suck on [...] in patients with CrCl less than 30 mL /min. FOR RECORDS PERTAINING TO PATIENTS WHO ARE [...] BE BASED ON THE PRIMARY CLINICAL RECORDS. [employer] provides no warranty or guarantee of the accuracy or completeness of information in this document.
--- NOTE | 2025-04-24 11:24 | PC.NURSE ---
Nursing Note Cardiac Stress Test Reviewed: Medication, allergies and patient history reviewed. Stress Test: [x ] Patient tolerated stress test well. [ ] Patient unable to tolerate walking on treadmill. Switched to Lexiscan stress test. [x ] No chest pain noted per patient [ ] Chest pain that resolved prior to leaving stress lab. [x ] No dyspnea noted. [ ] Dyspnea that resolved prior to leaving stress lab. [ x] Patient left stress lab asymptomatic and hemodynamically stable. [ ] Patient taken to the Emergency Room due to non-resolving symptoms following stress test. [ ] Patient achieved target heart rate. [ ] Patient unable to achieve target heart rate. [ ] Aminophylline administered as reversal agent to Lexiscan (Regadenoson). [ ] Nitro administered. Nursing Comments:Pt had Lexiscan test done. Tolerated well no issues noted. Pt taken to cafeteria via wc for breakfast prior to second set of images.
[2025-04-24] MEDS: REGADENOSON 0.4 MG/5 ML SYRINGE IV (11:26)
--- NOTE | 2025-04-25 17:15 | PM.STRESS ---
Stress Test Stress Test Allergies Allergy/AdvReac Type Severity Reaction Status Date / Time No Known Drug Allergies Allergy Verified 03/07/25 19:53 Requesting physician: GENET SHAIKH Procedure: Lexiscan stress test General Information: Reason for Stress Test: chest pain Cardiac History and Risk Factors: smoking, diabetes Resting 12 - Lead Electrocardiogram: Sinus rhythm 82 bpm, slight right axis deviation and incomplete R BBB Stress Test: Protocol: Lexiscan Exercise Capacity: NA Blood Pressure Response: Normal Rhythm: sinus throughout ST - Response: No changes Patient Response: abdominal pain, no chest pain noted. Interpretation: Lexiscan stress test demonstrated no ST changes during infusion. No chest pain reported during infusion. Nuclear scans will be reported separately.
== END 2025-04-24 10:12 | disposition home or self-care (01) ==
LOC: NM 10:11
PROVIDERS: PCP Nurse Practitioner Family; Visit Provider Internal Medicine
DX: R07.89 Other chest pain (principal)
CPT/HCPCS: 78452; 93017; 93306; A9500; J2785

== ENCOUNTER 2025-05-21 13:54 | Outpatient (OUT) | payer MEDICAID, SELFPAY ==
--- NOTE | 2025-05-21 13:57 | MM_ITS ---
Patient Name: JUMA HIRSCH MR#: [id number] : 1975 Exam Date: 05/21/2025 Ordering Doctor: GENET SHAIKH CNP RADIOLOGY REPORT PROCEDURE: MM TOMOSYNTHESIS SCREENING BI COMPARISON: MM TOMOSYNTHESIS DIAGNOSTIC BI, 12/25/2024. MM TOMOSYNTHESIS SCREENING BI, 11/08/2020. INDICATIONS: Screening Calculator Name NCI Breast Cancer Risk Assessment Tool 5 Year Breast Cancer Risk 0.90% Lifetime Breast Cancer Risk 8.00% Personal Breast Cancer No Personal Ovarian Cancer No Treatments None Family Cancers None LOCATION: [facility] BREAST COMPOSITION: There are scattered areas of fibroglandular density. FINDINGS: RIGHT BREAST: No significant suspicious finding. Benign-appearing lymph nodes are noted along the chest wall. LEFT BREAST: No significant suspicious finding. Benign-appearing lymph nodes in noted along the chest wall . Benign-appearing calcifications are present. DIAGNOSTIC CATEGORY 2--BENIGN FINDING. NO CHANGE FROM COMPARISON. RECOMMENDATIONS: ROUTINE MAMMOGRAM AND CLINICAL EVALUATION IN 12 MONTHS. Dictated by: Andrei Erazo MD on 05/21/2025 at 16:13 Approved by: Andrei Erazo MD on 05/21/2025 at 16:19
--- OUTSIDE RECORDS SUMMARY | 2025-05-21 14:03 | XMS_ITS | CCD ---
Author Organization [facility] Care Team Providers Care Roller Skate Repairer Name Role Phone [facility] Other Primary Car e Provider Lenora Whitehead Unavailable [facility] [place] Primary Care Unavailable MARKER ., [...] NORMA, GOMEZ L Primary Care Unavailable Norma SEARCH MANAGER-COILED TUBING OPERATOR, Gomez L Primary Care Provider Norma SEARCH MANAGER - COILED TUBING OPERATOR, Gomez L Primary Care Provider Unavailable Primary Care Provider Unavailabl e Shelley Clancy MD Primary Care Provider [phone] [facility] Other Primary [...] Galo Attending Unavailable SHELLEY, ASHLYN Referring Unavailable Becky Cornejo DO Attending Provider Luis Eduardo ADAME-C, Lenora Turpin Primary Care Provider Medications Current Medications MedicationDrug Class(es)DatesSig (Normalized)Sig (Original)Acetaminophen (20 sources)Start: 59-46-3126npakzrjrbgnso (TYLENOL) tablet 650 mgStart: 63-42-9978fgzfhvoehvwci (TYLENOL) tablet 650 mgStart: 91-84-9131prjv 1 tablet by mouth every six hours as needed for painacetaminophen (TYLENOL EXTRA STRENGTH) 500 mg tablet Take 1 tablet (500 mg total) by mouth every 6 (six) hours as needed for pain. 30 tablet 07/12/2022 Activeblood-glucose meter misc (20 sources)Start: 91-02-2627qjfek-glucose meter misc Use to check blood sugar once daily. 1 each 09/01/2023 ActiveStart: 84-66-7573rxufx-glucose meter misc Use to check blood sugar once daily. 1 each 0 09/01/2023 Activeboric acid 600 mg suppository (6 sources)Start: 01-12-2025 End: 02-37-3673htsao acid 600 mg suppository Indications: Kiesha glabrata infection Insert 1 suppository into thevagina nightly for 14 days. 14 suppository 01/12/2025 01/26/2025 ActiveStart: 12-12-2024 End: 25-75-5374ueusn acid 600 mg suppository Indications: Kiesha glabrata infection , Vaginal yeast infection Insert 1 suppository into the vagina nightly for 14 days. 14 suppository 12/12/2024 12/26/2024 ActiveStart: 12-07-2024 End: 05-17-0493nvihk acid 600 mg suppository Indications: Kiesha glabrata infection , Vaginal yeast infection Insert 1 suppository into the vagina nightly for 14 days. 14 suppository 12/07/2024 12/12/2024 Discontinued (Reorder)Start: 12-07-2024 End: 00-51-4266jyfoo acid 600 mg suppository Indications: Kiesha glabrata infection , Vaginal yeast infection Insert 1 suppository into the vagina nightly for 14 days. 14 suppository 12/07/2024 12/21/2024 Active0.5 ml dulaglutide 1.5 mg/ml auto-injector (12 sources)GLP-1 Receptor AgonistStart: 81-41-6039llfvop 0.75 mg by subcutaneous injection every week0.75 mg, SubCUTAneous, WEEKLY, First dose (after last modification) on 12/24/24 at 0900, Until Discontinued, On Sundays Patient using own home medicationsStart: 82-05-5767CSJTVFDBZ 0.75 MG/0.5ML SOAJ SC injection Inject 0.5 mLs into the skin once a week Sundays12/08/2024 Active Start: 06-20-1696FSPIVZVHD 0.75 mg/0.5 mL pen injector Inject 0.5 mL (0.75 mg total) under the skin every 7 days. 12/08/2024 ActiveDULoxetine 60 mg delayed release oral capsule (1 source)Serotonin and Norepinephrine Reuptake InhibitorStart: 17-82-8792tonr 1 capsule by mouth once dailyDULoxetine (CYMBALTA) 60 MG extended release capsule Take 1 capsule by mouth daily 11/14/2024 Activeempagliflozin 10 mg oral tablet (20 sources)Sodium-Glucose Cotransporter 2 InhibitorStart: 45-21-8308HSKPULLZH 10 mg tablet tablet 11/14/2024 Active0.4 ml enoxaparin sodium 100 mg/ml prefilled syringe (2 sources)Low Molecular Weight HeparinStart: 21-59-2170Buybi: 48-68-4196rsozdn 40 mg by subcutaneous injection once daily40 mg, SubCUTAneous, DAILY, First dose on Wed10/17/24 at 0900, Until Discontinued, Indication of Use: Prophylaxis-DVT/PEfurosemide 40 mg oral tablet (7 sources)Loop DiureticStart: 73-77-9712Djkbm: 10-18-2024 End: 85-23-7464qvzo 1 tablet by mouth once dailyfurosemide (LASIX) 40 MG tablet Take 1 tablet by mouth daily 30 tablet 10/19/2024 ActiveStart: 85-11-306041 mg, IntraVENous, ONCE, 1 dose, On Wed10/17/24 at 0900glipiZIDE 5 mg oral tablet (6 sources)SulfonylureaStart: 05-61-6287Sfcaq: 10-18-2024 End: 36-08-9095ousn 0.5 tablet by mouth once daily in the morningglipiZIDE (GLUCOTROL) 5 MG tablet Take 0.5 tablets by mouth every morning 15 tablet 10/18/2024 ActiveStart: 79-18-7054sibz 2.5 mg by mouth once daily in the morning 2.5 mg, Oral, EVERY MORNING, First dose on Wed10/17/24 at 0900, Until Discontinuedibuprofen 800 mg oral tablet (20 sources)Nonsteroidal Anti-inflammatory DrugStart: 73-52-5485yotu 1 tablet by mouth every eight hours [...] 100 unt/ml injectable solution (20 sources)Insulin AnalogStart: 76-03-6815xricdat glargine (LANTUS) 100 UNIT/ML injection vial Inject 40 Units into the skin daily States 40-50 10 mL 12/21/2024 ActiveStart: 46-58-0449rxftmn 40 [IU] by subcutaneous injection once daily40 Units, SubCUTAneous, DAILY, First dose on Susy 12/21/24 at 0145, Until DiscontinuedStart: 95-15-0613NRMFNN SOLOSTAR U-100 INSULIN 100 unit/mL (3 mL) insulin pen 11/14/2024 ActiveStart: 10-18-2024 End: 81-92-6978itnwqtw glargine (LANTUS) 100 UNIT/ML injection vial Inject 25 Units into the skin 2 times daily 10mL 10/18/2024 12/21/2024 DiscontinuedStart: 60-95-2155elsnqw 25 [IU] by subcutaneous injection twice daily25 Units, SubCUTAneous, 2 TIMES DAILY, First dose on 10/16/24 at 2315, Until Discontinuedinsulin glulisine, human (2 sources)Insulin Analoginject 30 [IU] by subcutaneous injection once daily Insulin Glulisine (APIDRA SOLOSTAR SC) Inject 30 Units under the skin Daily ActiveInsulin Syringes, Disposable, U-100 1 ML MISC (11 sources)Start: 17-76-0898Ahakkwf Syringes, Disposable, U-100 1 ML MISC 1 each by Does not apply route daily 100 each 10/18/2024 Activeinsulin, regular, human 100 unt/ml injectable solution (2 sources)InsulinStart: 10-18-2024 End: 95-64-2179htbmhku regular (HUMULIN R;NOVOLIN R) 100 UNIT/ML injection Inject 25 Units into the skin 2 times daily (before meals) 10 mL 10/18/2024 11/17/2024 Activelevothyroxine sodium 0.075 mg oral tablet (20 sources)l-ThyroxineStart: 04-16-2025 End: 48-93-5894pcjl 1 tablet by mouth once dailylevothyroxine (Synthroid, Levoxyl) 75 MCG tablet Indications: Postablative hypothyroidism Take 1 tablet (75 mcg) by mouth Daily 90 tablet 1 04/16/2025 10/13/2025 ActiveStart: 10-19-2023 End: 15-19-6447wmfw 1 tablet by mouth in the morninglevothyroxine (SYNTHROID, LEVOTHROID) 75 MCG tablet Take 1 tablet (75 mcg total) by mouth in the morning. 90 tablet 1 10/19/2023 01/29/2025 DiscontinuedStart: 09-01-2023 End: 53-30-9834gnxe 1 tablet by mouth in the morninglevothyroxine (SYNTHROID, LEVOTHROID) 50 MCG tablet Take 1 tablet (50 mcg total) by mouth in the morning. 30 tablet 1 09/01/2023 10/19/2023 Discontinued (Therapy completed)Start: 10-30-2020 End: 50-06-2185pkba 0.5 tablet by mouth once dailylevothyroxine (SYNTHROID, LEVOTHROID) 100 MCG tablet Indications: Graves disease , Acquired hypothyroidism Take 0.5 tablets (50 mcg total) by mouth daily. 30 tablet 2 10/30/2020 09/01/2023 Discontinued (Therapy completed)Start: 01-18-2015 End: 43-28-1468yfnonmbwwwbcx (SYNTHROID) 150 MCG tablet 3 01/18/2015 10/18/2024 Discontinued (Stop Taking at Discharge)take 1 tablet by mouth once daily levothyroxine 300 MCG tablet Take 300 mcg by mouth daily. ActivemetroNIDAZOLE 250 mg oral tablet (9 sources)Nitroimidazole AntimicrobialStart: 10-17-2024 End: 41-22-8690321 mg, Oral, 2 TIMES DAILY, 6 doses, First dose on Wed10/17/24 at 0945, Last dose on Wed10/19/24 at 1400, Antimicrobial Indications: Other, Other Abx Indication: trich End: 27-49-9411ekojrDXRMTUAY (FLAGYL) 250 MG tablet Take 1 tablet by mouth 2 times daily at 0800 and 1400 3 days left to finish 12/21/2024 Discontinued (Stop Taking at Discharge)24 hr nicotine 0.875 mg/hr transdermal system (20 sources)Cholinergic Nicotinic AgonistStart: 86-79-3486zlrnj 1 dose transdermal route every twenty-four hours [...] to facility policy for handling and disposal.Start: 02-55-9990ewrwb 1 dose transdermal route once daily at [...] ODT) disintegrating tablet 4 mg (2 sources)Start: 47-37-6469dqapucomxyq (ZOFRAN-ODT) disintegrating tablet 4 mg Start: 90-62-9527tchcssbdwvj (ZOFRAN-ODT) disintegrating tablet 4 mgpermethrin 50 mg/ml topical cream (1 source)PyrethroidStart: 85-67-0159Zufvvureft 5 % 1 application Externally Two times a Week Perform the treatment as directed, repeat in 3 days. Apr, Activepilocarpine hydrochloride 5 mg oral tablet (4 sources)Cholinergic Receptor AgonistStart: 46-44-0780lnew 1 tablet by mouth four times daily [...] 120 tablet 11 07/10/2021 ActiveStart: 11-12-2016 End: 40-50-3179veiz 1 mg by mouth once dailypilocarpine 5 [...] tablet 3 11/12/2016 07/10/2021 Discontinuedpolyethylene glycol 3350 12987 mg powder for oral solution (2 sources)Osmotic LaxativeStart: 04-58-5923Mwvdg: 72-51-8152Lskiagfno Chloride (5 sources)Start: 69-64-2401lqghhefac chloride (KLOR-CON M) extended release tablet 40 mEqStart: 10-18-2024 End: 41-81-8841kilf 1 tablet by mouth once daily at breakfastpotassium chloride (KLOR-CON M) 20 MEQ extended release tablet Take 1 tablet by mouth daily (with breakfast) 30 tablet 10/19/2024 11/18/2024 ActiveStart: 00-91-8794rqizopifw chloride (KLOR-CON M) extended release tablet 40 mEqrOPINIRole 0.25 mg oral tablet (7 sources)Nonergot Dopamine AgonistStart: 07-25-2021 End: 59-82-4171hFMBQWMdfz (REQUIP) 0.25 mg tablet 1 po 2-3 hours before bed x 1 week then increase to 2 before bedif no SE 01/11/2025 Active Completed/Discontinued Medications MedicationDrug Class(es)DatesSig (Normalized)Sig (Original)cetirizine hydrochloride 10 mg oral tablet (1 source)Histamine-1 Receptor AntagonistStart: 05-11-2014 End: 68-62-3296itaw 1 tablet by mouth once dailycetirizine (ZYRTEC) 10 MG tablet Indications: Allergic rhinitis Take 1 tablet by mouth daily. 30 tablet 0 05/11/2014 10/17/2024 Discontinued (LIST CLEANUP)esomeprazole 20 mg / naproxen 500 mg delayed release oral tablet (1 source)Proton Pump Inhibitor, Nonsteroidal Anti-inflammatory DrugStart: 10-29-2016 End: 79-02-5809dibj 1 tablet by mouth twice daily as neededNaproxen-Esomeprazole (VIMOVO) 500-20 MG Tab Indications: Sjogren's syndrome , Lumbar degenerative disc [...] mg oral tablet (2 sources)Histamine-2 Receptor AntagonistStart: 02-89-8767mkvk 20 mg by mouth twice daily20 mg, Oral, 2 TIMES DAILY, First dose on Wed12/21/24 at 0145, Until DiscontinuedStart: 14-79-9269vhac 20 mg by mouth twice daily20 mg, Oral, 2 TIMES DAILY, First dose on Wed10/16/24 at 2315, Until Discontinuedfluticasone propionate 0.05 mg/actuat metered dose nasal spray (1 source)CorticosteroidStart: 05-11-2014 End: 12-61-7600dxoizlcramb (FLONASE) 50 MCG/ACT nasal spray Indications: Allergic rhinitis 2 sprays by Nasal routedaily. 1 Bottle 0 05/11/2014 10/17/2024 Discontinued (LIST CLEANUP)insulin lispro 100 unt/ml injectable solution (2 sources)Insulin AnalogStart: 12-20-2024 End: 49-19-9440muwyyq 1 dose by subcutaneous injection once20 Units, [...] injection 75 mL (2 sources)Start: 12-20-2024 End: 65-63-0874rbrx 1 dose intravenously once75 mL, IntraVENous, IMG ONCE PRN, 1 dose, Starting on Wed12/20/24 at 1933, Until Wed12/20/24 at 2040, OtherStart: 10-17-2024 End: 65-54-8102ngzb 1 dose intravenously once75 mL, IntraVENous, IMG ONCE PRN, 1 dose, Starting on Wed10/17/24 at 0935, Until Wed10/17/24 at 0952, Other loratadine 10 mg oral capsule (1 source) End: 77-94-8762xghy 1 capsule by mouth once dailyLoratadine (CLARITIN) 10 MG CAPS Take 1 capsule by mouth daily 10/17/2024 Discontinued (LIST CLEANUP) meclizine hydrochloride 12.5 mg oral tablet (1 source)AntiemeticStart: 03-14-2014 End: 43-28-3873tdpl 1 tablet by mouth twice daily as needed for dizziness meclizine (ANTIVERT) 12.5 MG tablet Indications: BPPV (benign paroxysmal positional vertigo), unspecified laterality Take one (1) tablet by mouth twice a day as needed for dizziness 20 tablet 0 03/14/2014 10/17/2024 Discontinued (LIST CLEANUP)meloxicam 15 mg oral tablet (1 source)Nonsteroidal Anti-inflammatory DrugStart: 08-14-2013 End: 10-39-2414sdeq 1 tablet by mouth once dailymeloxicam (MOBIC) 15 MG tablet Take 1 tablet by mouth daily. 30 tablet 3 08/14/2013 10/17/2024 Discontinued (LIST CLEANUP)metFORMIN hydrochloride 500 mg oral tablet (20 sources)BiguanideStart: 10-13-2023 End: 17-62-0904zecs 1 tablet by mouth in the morning, then take 1 tablet by mouth at mealtimemetFORMIN (GLUCOPHAGE) 500 mg tablet Take 1 tablet (500 mg total) by mouth in the morning and 1 tablet (500 mg total) in the evening. Take with meals. 180 tablet 1 10/13/2023 01/30/2025 Discontinuedmethocarbamol 500 mg oral tablet (1 source)Muscle RelaxantStart: 08-14-2013 End: 13-79-4020ntld 1 tablet by mouth three times daily as neededmethocarbamol (ROBAXIN) 500 MG tablet Take 1 tablet by mouth 3 times daily as needed. 40 tablet 3 08/14/2013 10/17/2024 Discontinued (LIST CLEANUP)methylPREDNISolone 4 mg oral tablet (1 source)CorticosteroidStart: 04-07-2017 End: 90-31-6730jwpxsdRJJVVHRgogye 4 MG Tab Medrol dos pack- as directed 21 tablet 0 04/07/2017 07/10/2021 Discontinuednaratriptan 2.5 mg oral tablet (1 source)Serotonin-1b and Serotonin-1d Receptor AgonistStart: 04-07-2017 End: 07-61-7348ocbrkuudebb (AMERGE) 2.5 MG Tab 1 po prn headache max 5mg/day; may repeat in 4 hr x1 8 tablet 1 04/07/2017 07/10/2021 Discontinuedondansetron 4 mg disintegrating oral tablet (1 source)Serotonin-3 Receptor AntagonistStart: 07-12-2022 End: 12-79-3435ctgw 1 tablet by mouth every eight hours as needed for nausea ondansetron ODT (ZOFRAN ODT) 4 mg disintegrating tablet Dissolve 1 tablet (4 mg total) on tongue every 8 (eight) hours as needed for nausea for up to 10 doses. 10 tablet 0 07/12/2022 08/27/2023 Discontinued (Therapy completed)promethazine hydrochloride 25 mg oral tablet (1 source)PhenothiazineStart: 04-07-2017 End: 49-77-8160jogr 1 tablet by mouth every eight hours as needed for nausea promethazine 25 MG Tab tablet 1 po q 8 hours prn nausea 10 tablet 1 04/07/2017 07/10/2021 Zqajtgcrslrs76 ml sodium chloride 9 mg/ml injection (10 sources)Start: 76-73-7118Owlzq: 12-20-2024 End: 22-19-6063ZfewiOWYjyd, at 100 mL/hr, CONTINUOUS, Starting on Wed12/21/24 at 0145, For 24 hours, Complete lastbag that is running at 24 hours and then saline lock IVStart: 10-17-2024 End: 93-70-2533TimcsJZScuk, at 50 mL/hr, CONTINUOUS, Starting on Wed10/17/24 at 0200Start: 11-00-1541Rcjql: mL, IntraVENous, EVERY 12 HOURS SCHEDULED (2 times per day), First dose on Wed10/16/24 at 2315, Until DiscontinuedStart: 07-03-3105dcusrnoqvxu 250 mg oral tablet (16 sources)Allylamine AntifungalStart: 10-08-2023 End: 62-08-2869vtuwvbqrqre (LamISIL) 250 mg tablet 10/08/2023 01/29/2025 Discontinued Problems Active Problems Problem ClassificationProblemDateDocumented DateEpisodic/ChronicAbdominal pain (2 sources)Pain in pelvis; 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: [Pelvic and perineal pain]Onset: 634729-76-4259TkuidjkeHorcmhw disorders (1 source)Feeling irritable; 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: [Irritability and anger]12-20-2024 EpisodicCancer; other and unspecified primary (3 sources)History of gynecological disorder; 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: [Personal history of other benign neoplasm]24-80-2652QqmpbcgdYjezjq; other and unspecified primary (2 sources)Personal history of other benign neoplasm; 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: [Personal history of other benign neoplasm]Onset: 72-06-0378AkqtsupeRmzpecslxlssq of surgical procedures or medical care (2 sources)Postablative hypothyroidism; 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: [Postprocedural hypothyroidism]12-62-8442VhnttzfOklijaiy mellitus with complications (20 sources)Type 2 diabetes mellitus with hyperglycemia; 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: [Other specified diabetes mellitus with hyperglycemia]Onset: ChronicDisorders of lipid metabolism (2 sources)Hyperlipidemia, unspecified; 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: [Hyperlipidemia]Onset: 630878-07-7601EvdyrsdHzjeorhw; including migraine (20 sources)Migraine; 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: [Migraine, unspecified, not intractable, without status migrainosus]Onset: 238893-08-1047MtqhwoaEzevynozcnnbo and screening for infectious disease (8 sources)Abnormal blood test; 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: [Abnormal immunological finding in serum, unspecified]Onset: 10-29-2016 Resolved: 611747-10-8950ItxhsalrQlcupqainjuq; infection of eye (except that caused by tuberculosis or sexually transmitteddisease) (1 source)Keratoconjunctivitis sicca; 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: [Keratoconjunctivitis sicca, not specified as Sjogren's, unspecified eye]Onset: hronic Inflammatory diseases of female pelvic organs (2 sources)Acute vaginitis; 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: [Acute vaginitis]Onset: 12-06-2024 82-23-9028SqeoxoekQcchjid and fatigue (8 sources)Fatigue; 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: [Other fatigue]Onset: EpisodicMenopausal disorders (2 sources)Menopausal syndrome; 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: [Menopausal and female climacteric states]72-58-7144EmnwrmhJfpmftgpa disorders (1 source)Menorrhagia; 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: [Excessive and frequent menstruation with regular cycle]16-27-4861OiybqspFnwncbo (10 sources)Onychomycosis; 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: [Tinea unguium]48-38-1022Zhdonmcx Nonmalignant breast conditions (11 sources)Discharge from nipple; 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: [Nipple discharge]Onset: 254149-48-0519QbxviapbPsathhtfybg deficiencies (20 sources)Vitamin D deficiency; 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: [Vitamin D deficiency, unspecified]Onset: 130074-38-8216IiyvdswLtkajcnkdablva (20 sources)Osteoarthritis of joint of right hand; 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: [Primary osteoarthritis, right hand]Onset: 21-34-3499VgaeahsHeogw aftercare (6 sources)Patient encounter status; 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: [detention (current) use of non-steroidal anti-inflammatories (NSAID)]Onset: 10-29-2016 Resolved: 455412-50-3190MwrprfoiKpgvf connective tissue disease (2 sources)Other symptoms and signs involving the musculoskeletal system; Translations: [Other musculoskeletalsymptoms referable to limbs]Onset: 891462-62-8363LukegnyqJmysm nervous system disorders (20 sources)Tarsal tunnel syndrome; Translations: [Tarsal tunnel syndrome, unspecified lower limb]Onset: 018128-33-0702AuaxlpmTfmkc nervous system disorders (1 source)Polyneuropathy in diseases classified elsewhere; Translations: [Polyneuropathy in diseases classified elsewhere]Onset: 73-99-7083EqyscapQtcew nervous system disorders (2 sources)Polyneuropathy; Translations: [Polyneuropathy, unspecified]04-26-2025 ChronicOther nervous system disorders (1 source)Impaired cognition; Translations: [Other symptoms and signs involving cognitive functions and awareness]70-39-2191VjszgwbmNcpjq non-traumatic joint disorders (2 sources)Pain in left knee; Translations: [Pain in joint, lower leg]Onset: 671517-01-8281VfocpdhuAqfvz nutritional; endocrine; and metabolic disorders (3 sources)Obese class II; Translations: [Obesity, unspecified]Onset: 07-10-2021 01-30-6321BzqqeduPtrzc nutritional; endocrine; and metabolic disorders (1 source)Peripheral neuropathy due to metabolic disorder; Translations: [Metabolic disorder, unspecified]54-23-0366JvoodzeZcpzd nutritional; endocrine; and metabolic disorders (1 source)Metabolic disorder, unspecified; Translations: [Metabolic disorder, unspecified]Onset: 39-99-4668RdtjbjcGsrkv screening for suspected conditions (not mental disorders or infectious disease) (6 sources)Encounter for screening mammogram for malignant neoplasm of breast; Translations: [Encounter for screening for malignant neoplasm of colon]Onset: 733499-99-8169HzieahgvTzpix upper respiratory disease (20 sources)Allergic rhinitis; Translations: [Allergic rhinitis, unspecified] Onset: 530919-85-6756EnccuirYxnqpwkv codes; unclassified (1 source)Edema; Translations: [Edema, unspecified]16-80-1816Yzkqwbam Spondylosis; intervertebral disc disorders; other back problems (20 sources)Degeneration of lumbar intervertebral disc; Translations: [Other intervertebral disc degeneration, lumbar region]Onset: 61-02-7734Zqewbvo Substance-related disorders (4 sources)Smoker; Translations: [Nicotine dependence, unspecified, uncomplicated]93-33-3785EcgcmotZqqxdrzs lupus erythematosus and connective tissue disorders (20 sources)Sjogren's syndrome; Translations: [Sicca syndrome, unspecified] Onset: 06-14-2015 Resolved: 96-42-1484SxgsfwhChuonms disorders (20 sources)Hypothyroidism; Translations: [Hypothyroidism, unspecified]Onset: 01-51-7692XhzkxeqSoxxpsacdphw (1 source)High Blood Sugar - SymptomaticOnset: 60-18-6367Tjqxfaypaxdt (1 source)EMSOnset: 30-43-9182Pmyiianvklpp (1 source)HRTOnset: 83-04-3466Nijaepdeoaeb (1 source)Annual ExamOnset: 09-82-8605Xswym infection (2 sources)COVID-19; Translations: [Disease caused by 2018-nCoV]Onset: 03-19-2022 Past or Other Problems Problem ClassificationProblemDateDocumented DateEpisodic/ChronicAllergic reactions (20 sources)Allergic disorder; Translations: [Allergy, unspecified, initial encounter]Onset: 468576-01-8048EoiooobbDfhtbg of cervix (20 sources)Malignant tumor of cervix; Translations: [Malignant neoplasm of cervix uteri, unspecified]Onset: 10-29-2016 Resolved: 237660-16-9638OilxxdgXtcwyv of cervix (1 source)History of malignant neoplasm of cervix; Translations: [Personal history of malignant neoplasm of cervix uteri]13-35-5742JcxedxktMwupkoix mellitus without complication (20 sources)Hyperglycemia; Translations: [Hyperglycemia, unspecified]Onset: 54-71-5574RzydpjcyOhyejguj of mouth; excluding dental (8 sources)Xerostomia; Translations: [Disturbances of salivary secretion]Onset: 17-71-0781NtvnyohuQaqz disorders (20 sources)Mood disordersOnset: 09-01-2023 Resolved: Nausea and vomiting (4 sources)Nausea; Translations: [NAUSEA]Onset: 95-25-4145TazmawewQbkxp aftercare (3 sources)Drug therapy finding; Translations: [Other longterm (current) drug therapy]Onset: 10-29-2016 Resolved: 386321-15-2958QibwvhntYolqa aftercare (1 source)detention current use of non-steroidal anti-inflammatory drug; Translations: [detention (current) use of non-steroidal anti-inflammatories (NSAID)]Onset: 10-29-2016 Resolved: 056082-17-1418XldbzohuJjqmz bone disease and musculoskeletal deformities (20 sources)Disorder of skeletal system; Translations: [Disorder of bone, unspecified]Onset: 761708-56-9345OtmaagyqDuchp circulatory disease (20 sources)Telangiectasia of skin of face; Translations: [Nevus, non-neoplastic]Onset: 33-33-0148XdmznrmxGbkrd connective tissue disease (3 sources)Pain in right hand; Translations: [Pain in right hand]Onset: 967939-58-2553ZczskoxvOcwea connective tissue disease (3 sources)Pain in left foot; Translations: [Pain in left foot]Onset: 10-29-2016 29-28-0733AwnfjtziGgtwk connective tissue disease (14 sources)Swelling of bilateral lower limbs; Translations: [Other specified soft tissue disorders]Onset: 10-17-2024 Resolved: 880455-48-7913KebrbnmvWqtel connective tissue disease (1 source)Other specified soft tissue disorders; Translations: [Other specified soft tissue disorders]Onset: 55-61-7947UqmraujyUnymh eye disorders (4 sources)Dry eyes; Translations: [Dry eye syndrome of bilateral lacrimal glands]Onset: 00-11-9301UqfwzzpfGljiw female genital disorders (19 sources)History of abnormal cervical Papanicolaou smear ; Translations: [Personal history of other diseasesof the female genital tract]Onset: 10-13-2023 44-68-4797PcsxuvnnFprae infections; including parasitic (1 source)Scabies; Translations: [Scabies B86]Onset: 05-02-2021 Resolved: 33-82-5996QnfaiojoWorhl nervous system disorders (20 sources)Neurological finding; Translations: [Other abnormal involuntary movements]Onset: 07-06-8829VwudzajyNrdaf non-traumatic joint disorders (3 sources)Shoulder pain; Translations: [Pain in unspecified shoulder]Onset: 191293-17-4094NjrznrpdNjpjl non-traumatic joint disorders (11 sources)Pain in left shoulder; Translations: [Pain in joint, shoulder region] Resolved: 684475-94-5237DpyphkayNjrye nutritional; endocrine; and metabolic disorders (1 source)History of Graves' disease; Translations: [Personal history of other endocrine, nutritional and metabolic disease]76-08-1072IcaxfnwoImygh nutritional; endocrine; and metabolic disorders (1 source)Weight loss; Translations: [Abnormal weight loss]23-79-6931Bhvemcvz Other skin disorders (5 sources)Hyperpigmentation of skin; Translations: [Disorder of pigmentation, unspecified]Onset: 07-11-8624RcofwqtzSwzlx upper respiratory infections (1 source)Acute upper respiratory infection, unspecified; Translations: [Viral upper respiratory illness J06.9]Onset: 05-02-2021 Resolved: 65-46-7223LzykjxzqWyqntoxf codes; unclassified (3 sources)Noncompliance with treatment; Translations: [Patient's noncompliance with other medical treatment and regimen]Onset: 076153-73-2079Kxompayz Residual codes; unclassified (13 sources)Noncompliance with medication regimen; Translations: [Non compliance w medication regimen]Onset: 874426-94-6901VtinxmkjQdorxnkg codes; unclassified (12 sources)Bilateral lower limb edema; Translations: [Localized edema]Onset: 762371-54-3897QullsjsfLlmbixlk codes; unclassified (12 sources)Edema, generalized; Translations: [Generalized edema]Onset: 403771-06-8409MwdqjckyLtvjzjuh codes; unclassified (1 source)Edema, unspecified; Translations: [Edema, unspecified]Onset: 93-11-4339FzbjtailHjgctyxribn; intervertebral disc disorders; other back problems (20 sources)Neck pain; Translations: [Cervicalgia]Onset: 10-29-2016 Resolved: 886321-28-9329QbrvwossRplpsbkbirkp (20 sources)Onset: Results Test NameValueInterpretationReference RangeFacilityProt. ElectrophCharly 64-42-0685Elzsbjrcoql Review:ELECTRONICALLY SIGNED. KAILEE FERNANDEZ M.D. Veterans Health AdministrationComment on above:Performed By: #### INSU #### [facility] [place] [id number] Unit Director: Gee Royal MD [facility] [address] [place] [address] [place] [place], [place] [id number] Unit Director: Loreta Zelaya MD #### CPEP #### [address] [address] Unit Director: Gee Royal MDAlbumin [Mass/Vol]4.1 g/dLNormal3.2-5.2MPremier Health Miami Valley HospitalComment on above:Performed By: #### INSU #### [address] [address] Unit Director: Gee Royal MD [address] [place], [place] [id number] Unit Director: Loreta Zelaya MD #### CPEP #### [address] [address] Unit Director: Bill Pinedabumin, %58 %Rbbqxp82-98VlixxSelect Medical Specialty Hospital - [place] Comment on above:Performed By: #### INSU #### [address] [address] Unit Director: Gee Royal MD [facility] [address] [place] [address] [place], [place] 8191283 Unit Director: Loreta Zelaya MD #### CPEP #### [address] [address] Unit Director: Gee Royal MDAYSHanet-6-bpjswqkqe2.3 g/dLNormal0.1-0.4[facility] Hospital - CincinnatiComment on above:Performed By: #### INSU #### [address] [address] Unit Director: Gee Royal MD [facility] [address] [place] [address] [place] [address] Unit Director: Loreta Zelaya MD #### CPEP #### [place] [address] [place] [address] Unit Director: Gee Royal MDAlpha-1-globulins,%4 %Normal3-5Mercy Hartford HospitalComment on above:Performed By: #### INSU #### [address] [address] Unit Director: Gee Royal MD [address] [place] [id number] Unit Director: Loreta Zelaya MD #### CPEP #### [address] [address] Unit Director: Gee Royal MDAGACdudr-1-zfchcehko6.7 g/dLNormal0.5-0.9[facility] Hospital - CincinnatiComment on above:Performed By: #### INSU #### [address] [address] Unit Director: Gee Royal MD [address] [place] [id number] Unit Director: Loreta Zelaya MD #### CPEP #### [address] [address] Unit Director: Gee Royal MDAlpha-2-globulins,%10 %Normal7-12[facility] Hospitalcy Hartford HospitalComment on above:Performed By: #### INSU #### [address] [address] Unit Director: Gee Royal MD [address] [place] [id number] Unit Director: Loreta Zelaya MD #### CPEP #### [address] [address] Unit Director: Gee Royal MDBeta-globulins0.9 g/dLNormal0.7-1.4[facility] HospitalComment on above:Performed By: #### INSU #### [address] [address] Unit Director: Gee Royal MD [address] [place], [place] 1769183 Unit Director: Loreta Zelaya MD #### CPEP #### [address] [address] Unit Director: Gee Royal MDBeta-globulins,%13 %Normal8-13[facility] Hospital - CincinnatiComment on above:Performed By: #### INSU #### [address] [address] Unit Director: Gee Royal MD [address] [place] [address] Unit Director: Loreta Zelaya MD #### CPEP #### [address] [address] Unit Director: Gee Royal MDGamma-globulins1.1 g/dLNormal0.5-1.5[facility] Hospital - CincinnatiComment on above:Performed By: #### INSU #### [address] [address] Unit Director: Gee Royal MD [address] [place] [id number] Unit Director: Loreta Zelaya MD #### CPEP #### [address] [address] Unit Director: Gee Royal MDGamma-globulins,%15 %Nmkhfd67-38NttumSelect Medical Specialty Hospital - CincinnatiComment on above:Performed By: #### INSU #### [address] [address] Unit Director: Gee Royal MD [address] [place] [address] Unit Director: Loreta Zelaya MD #### CPEP #### [address] [address] Unit Director: Alisha Pineda. Elect-InterpNormal electrophoretic pattern.NormalMercy Hartford HospitalComment on above:Performed By: #### INSU #### [address] [address] Unit Director: Gee Royal MD [address] [place] [address] Unit Director: Loreta Zelaya MD #### CPEP #### [address] [address] Unit Director: Gee Royal MDTotal Prot. Sum7.1 g/dLNormal6.3-8.2MercConnecticut Children's Medical CenterComment on above:Performed By: #### INSU #### [address] [address] Unit Director: Gee Royal MD [address] [place] [address] Unit Director: Loreta Zelaya MD #### CPEP #### [address] [address] Unit Director: Amy Pineda Prot. Sum,%100 %Lqhgib71-742EyjutSelect Medical Specialty Hospital - CincinnatiComment on above:Performed By: #### INSU #### [address] [address] Unit Director: Gee Royal MD [address] [place] [address] Unit Director: Loreta Zelaya MD #### CPEP #### [address] [address] Unit Director: Gee Royal MDB12/Folate Panelon 10-38-3188Uafzyiuls (Vitamin B12) [Mass/Vol]391 pg/vEPujezc243-7656Snyus Tiffin HospitalComment on above: Performed By: #### BMP #### [facility] [address] [place] [address] Unit Director: Alfie Frazier Acid37.3 ng/mLHigh4.8-24.2MPremier Health Miami Valley HospitalComment on above:Performed By: #### BMP #### [facility] [address] [place] [address] Unit Director: RUTH FrazierBC 20-72-3037Wiftswhrtra distribution width (RBC) [Ratio]13.3 %11.8 - 14.4 %[facility] CenterHematocrit (Bld) [Volume fraction]44.9 %36.3 - 47.1 %[facility] CenterHemoglobin (Bld) [Mass/Vol] 14.9 g/dL11.9 - 15.1 g/dLBon [facility]tering Health SpringfieldInterpretation and review of laboratory resultsAbnormalPoplar Springs Hospital (RBC) [Entitic mass]29 pg 25.2 - 33.5 pgMary Washington HospitalHC (RBC) [Mass/Vol]33.2 g/dL28.4 - 34.8 g/dLBon Mercy HospitalV (RBC) [Entitic vol]87.5 fL82.6 - 102.9 fLVirginia Hospital CenterNucleated RBC/100 WBC (Bld) [Ratio]0 %0.0 per 100 WBCVirginia Hospital CenterPlatelet mean volume (Bld) [Entitic vol]9.7 fL8.1 - 13.5 fL [facility] CenterPlatelets (Bld) [#/Vol]306 10*3/uLVirginia Hospital CenterRBC (Bld) [#/Vol]5.13 10*6/uLHigh3.95 - 5.11 m/uLVirginia Hospital Center WBC other (Bld) [#/Vol]5.9Bon [facility] SpringfieldBon [facility] Erythrocyte distribution width (RBC) [Ratio]13.3 %Xfwuvn23.8-14.4[facility] HospitalComment on above:Performed By: #### BMP #### [address] [place], [place] [id number] Unit Director: Loreta Zelaya MDHematocrit (Bld) [Volume fraction]44.9 %Normal 36.3-47.1MSumma Health Akron Campus HospitalComment on above:Performed By: #### BMP #### [address] [place], [place] 6966983 Unit Director: Loreta Zelaya MDHemoglobin (Bld) [Mass/Vol]14.9 g/dLNormal 11.9-15.1MSumma Health Akron Campus HospitalComment on above:Performed By: #### BMP #### [address] [place], [place] 1704383 Unit Director: MIGUELINA FrazierCH (RBC) [Entitic mass]29.0 rnDesynd42.2-33.[address] [facility] HospitalComment on above:Performed By: #### BMP #### [address] [place], [place] 2587383 Unit Director: KELLI FrazierC (RBC) [Mass/Vol]33.2 g/oUVsvffs65.4-34.8[facility] HospitalComment on above:Performed By: #### BMP #### [address] [place], [place] 1943683 Unit Director: MIGUELINA FrazeirCV (RBC) [Entitic vol]87.5 jKGrsjkk25.6-102.[address] [facility] HospitalComment on above:Performed By: #### BMP #### [address] [place] [address] Unit Director: TYREL Frazier Automated0.0 per 100 WBCNormal0.0[facility] Hospital - CincinnatiComment on above:Performed By: #### BMP #### [address] [place] [address] Unit Director: Helena Frazier mean volume (Bld) [Entitic vol]9.7 fL Normal8.1-13.5[facility] Hospital - CincinnatiComment on above:Performed By: #### BMP #### [address] [place] [address] Unit Director: Luna Frazier (Bld) [#/Vol]306 10*3/bLRsxdoa811-[address] [facility] HospitalComment on above:Performed By: #### BMP #### [address] [place] [address] Unit Director: SARA Frazier (Bld) [#/Vol]5.13 10*6/uLHigh3.95-5.11[facility] Hospital - CincinnatiComment on above:Performed By: #### BMP #### [address] [place] [address] Unit Director: TSERING Frazier (Bld) [#/Vol]5.9 10*3/uLNormal3.5-11.3MPremier Health Miami Valley HospitalComment on above:Performed By: #### BMP #### [address] [place] [address] Unit Director: Loreta Zelaya MDCKon 05-22-1924RX [Catalytic activity/Vol]26 U/L26 - 192 U/LBon [facility] SecCleveland Clinic FoundationCreatine Kinaseon 29-80-3700IK [Catalytic activity/Vol]26 U/QZengyu23-605EmebbSelect Medical Specialty Hospital - Cincinnati Comment on above:Performed By: #### CDP #### [address] [place] 3903483 Unit Director: Loreta Zelaya MDEstradiolon 59-44-4596Hidvezuup56.0 pg/mLVirginia Hospital CenterComment on above: FEMALES: Normally menstruating Luteal phase 60-232 Follicular phase 31-90 Midcycle phase 60-533 Postmenopausal (untreated) <138 Fulvestrant treatment will show an increased estradiol concentration with this methodology. Alternate methodologies are available upon request. Wyopapdyv81.0 pg/mLNAdena Pike Medical CenterComment on above:Result Comment: FEMALES: Normally menstruating Luteal phase 60-232 Follicular phase 31-90 Midcycle phase 60-533 Postmenopausal (untreated) <138 Fulvestrant treatment will show an increased estradiol concentration with this methodology. Alternate methodologies are available upon request.Performed By: #### BMP #### [address] [place], [place] 5643083 Unit Director: Loreta Zelaya MDFollicle Stim. Hormon 89-34-4533Yklrtmfk Stim. Horm4.8 mIU/mLNAdena Pike Medical CenterComment on above:Result Comment: Reference Range: Male: 1.5-12.4 Ovulating Female: Follicular Phase 3.5-12.5 Ovulation Phase 4.7-21.5 Luteal Phase 1.7-7.7 Postmenopausal Female: 25.8-134.8Performed By: #### VBG #### [address] [place] [address]83 Unit Director: Loreta Zelaya MDFollicle Stimulating Hormoneon 02-08-2025 Follitropin Qn4.8 m[IU]/mLmIU/mLVirginia Hospital CenterComment on above: Reference Range: Male: 1.5-12.4 Ovulating Female: Follicular Phase 3.5-12.5 Ovulation Phase 4.7-21.5 Luteal Phase 1.7-7.7 Postmenopausal Female: 25.8-134.8 HCG, Quanton 71-17-8672LEN, Quant<0.5Ijfrgb2-7XshquSelect Medical Specialty Hospital - CincinnatiComment on above:Result Comment: Non-preg premeno <=5 Postmeno <=8 Male <=3 If HCG results do not concur with clinical observations, additional testing to confirm results is recommended.Performed By: #### BMP #### [address] [place] [address] Unit Director: Loreta Zelaya MDHCG, Quantitative, Pregnancyon 53-78-8420HXL.beta subunit QnBon [facility] SpringfieldComment on above: Non-preg premeno <=5 Postmeno <=8 Male <=3 If HCG results do not concur with clinical observations, additional testing to confirm results is recommended. [facility] Hospital CenterLuteinizing Hormoneon 80-47-1032Ztfshjvr Qn2.8 m[IU]/mL [facility] CenterComment on above:Reference Range: Male: 1.7-8.6 Ovulating Female: Follicular Phase 2.4-12.6 Ovulation Phase 14.0-95.6 Luteal Phase 1.0-11.4 Postmenopausal Female: 7.7-58.5 Luteinizing Hormone2.8 mIU/mLNormal1.7-8.6Mer[facility] HospitalComment on above: Result Comment: Reference Range: Male: 1.7-8.6 Ovulating Female: Follicular Phase 2.4-12.6 Ovulation Phase 14.0-95.6 Luteal Phase 1.0-11.4 Postmenopausal Female: 7.7-58.5Performed By: #### VBG #### [address] [place] [address] Unit Director: Loreta Zelaya MDNo Panel Informationon 51-99-6547Saq [facility]tering Health SpringfieldProgesteroneon 20-96-2676Jlqpshtdgcir [Mass/Vol]2.57 ng/mLVirginia Hospital CenterComment on above: Female: Follicular phase <0.19 ng/mL Ovulation phase 0.06-4.14 ng/mL Luteal phase 4.11-14.5 ng/mL Postmenopausal <0.13 ng/mL Progesterone2.57 ng/mLNormalMercy Hartford HospitalComment on above:Result Comment: Female: Follicular phase <0.19 ng/mL Ovulation phase 0.06-4.14 ng/mL Luteal phase 4.11-14.5 ng/mL Postmenopausal <0.13 ng/mLPerformed By: #### VBG #### [address] [place] [address] Unit Director: SUZY Frazierrolactincedrick 78-23-7871Zzesnegonlyrfh and review of laboratory resultsAbnormalVirginia Hospital CenterProlactin [Mass/Vol]4.73 ng/mLLow4.79 - 23.3 ng/mLVirginia Hospital CenterComment on above:The presence of macroprolactin may cause interference in female patients with various endocrinological diseases or during . [facility] Hospital CenterProlactin4.73 ng/mLLow4.79-23.3MPremier Health Miami Valley Hospital Comment on above:Result Comment: The presence of macroprolactin may cause interference in female patients with various endocrinological diseases or during .Performed By: #### BMP #### [address] [place] [address] Unit Director: Alisha Frazier. Electroph, Blon 52-38-3474Pudntay [Mass/Vol] 7.0 g/dLNormal6.6-8.7[facility] Hospital - CincinnatiComment on above:Performed By: #### INSU #### [place] [address] Unit Director: Gee Royal MD [address] [place] [address] Unit Director: Loreta Zelaya MD #### CPEP #### [facility] [employer] [address] [place], [place] 5642308 Unit Director: QUAN Pinedaedimentation Rateon 13-82-9063VWB Photometric method (Bld) [Velocity]21HighVirginia Hospital CenterInterpretation and review of laboratory resultsAbnormalBon [facility] Sedimentation Rate21 mm/HrHigh0-20[facility] Hospital - CincinnatiComment on above: Performed By: #### CDP #### [address] [place], [place] 9092783 Unit Director: Loreta Zelaya MDT4, Free 51-99-5271Uwjf T4 [Mass/Vol]0.5 ng/dL Low0.92 - 1.68 ng/dLBon [facility] SpringfieldInterpretation and review of laboratory resultsAbnormBon Secours Richmond Community HospitalTSHon 01-76-7025Ncibjfeimhnbov and review of laboratory resultsAbnormBon Secours Richmond Community HospitalTS Qn15.5 m[IU]/LHighBon [facility] Surgery CenterTestosteroneon 53-61-5778Hkphyptcbkvh [Mass/Vol]14 ng/dL8 - 48 ng/dLBon [facility] Surgery CenterTestosterone, Totalon 67-96-9593Protzoasfrit [Mass/Vol]14 ng/dLNormal8-48[facility] Hospital - CincinnatiComment on above:Performed By: #### VBG #### [address] [place], [place] 6720383 Unit Director: Loreta Zelaya MDThyroid Stim. Horm.on 29-42-4831Mblvrgf Stim. Horm.15.50 uIU/mLHigh0.27-4.20[facility] Hospital - CincinnatiComment on above:Performed By: #### BMP #### [address] [place], [place] 5724683 Unit Director: Loreta Zelaya MDThyroxine, [facility] Womenon 65-37-0968Fzzttqurd, Free0.5 ng/dLLow0.92-1.68[facility] Hospital - CincinnatiComment on above:Performed By: #### VBG #### [address] [place], [place] [id number] Unit Director: Loreta Zelaya MDVitamin B12 & Folateon 30-64-2980Clcpsfdsz (Vitamin B12) [Mass/Vol]391 pg/mL232 - 1245 pg/mLVirginia Hospital CenterFolate [Mass/Vol]37.3 ng/mLHigh4.8 - 24.2 ng/mLVirginia Hospital CenterInterpretation and review of laboratory resultsAbnormalBon [facility] Surgery CenterACETONE,(BETAHYDROXYBUTYRATE, KETONE) QUANTITATIVE SERUMon 52-85-4590FEUXMIWEVIOFKTICFYT0.13 mmol/LNormal0.02-0.27[facility] - Cleveland-FairhillComment on above:Performed By: #### KETB #### [facility] ([address] [address] VIRB-TYPE NATRIURETIC PEPTIDEon 91-90-8762Vkhsjbkgvtg peptide B (Bld) [Mass/Vol]16 pg/mLNormal<=100[facility] - Cleveland-FairhillComment on above: Performed By: #### BNP #### [facility] ([address] [address] VIRBEDSIDE GLUCOSEon 23-06-0504Mqfizqo [Mass/Vol]306 mg/dLHigh 65-99[facility] - Cleveland-FairhillComment on above:Performed By: #### BEDG #### [facility] ([address] [address] VIRGlucose [Mass/Vol]476 mg/dLCritically mxhq35-53RjtRdwfxfSelect Medical Specialty Hospital - Cleveland-FairhillComment on above:Performed By: #### BEDG #### [facility] ([address] [address] VIRCBC WITH AUTO DIFFERENTIALon 36-18-0296KESYGHVIO ABSOLUTE COUNT (10*3/UL) BY AUTOMATED COUNT0.0 10*3/uLNormal0.0-0.2PEast [facility] Regional HospitalComtrinity health [facility] hospital on above:Performed By: #### CBCA #### [facility] ([address] [address] VIRBASOPHILS RELATIVE PERCENT BY AUTOMATED COUNT0.6 %Normal [facility] Cleveland-FairhillComment on above:Performed By: #### CBCA #### [facility] ([address] [place] [address] VIRCELLAVISION DIFFERENTIAL TYPEAUTOMATED DIFFERENTIALNormal [facility]-FairhillComtrinity health [facility] hospital on above:Performed By: #### CBCA #### [facility] ([address] [place] [address] VIREosinophils (Bld) [#/Vol]0.1 10*3/uLNormal0.0-0.4[facility]-FairhillComtrinity health [facility] hospital on above:Performed By: #### CBCA #### [facility] ([address] [place] [address] VIREOSINOPHILS RELATIVE PERCENT BY AUTOMATED COUNT2.1 %Normal [facility]-FairhillComtrinity health [facility] on above:Performed By: #### CBCA #### [facility] ([address] [place] [address] VIRErythrocyte distribution width (RBC) [Ratio]13.1 %Normal 11.5-15ProHca Houston Healthcare Clear LakeComtrinity health livingston hospital on above:Performed By: #### CBCA #### [facility] ([address] [place] [address] VIRHematocrit (Bld) [Volume fraction]41.3 %Osieaq53-02 ProMJohn George Psychiatric PavilionComtrinity health livingston hospital on above:Performed By: #### CBCA #### [facility] ([address] [place] [address] VIRHemoglobin (Bld) [Mass/Vol]14.0 g/qGDqmybr72.7-15.5 [facility]-FairhillComtr[facility] health [facility] hospital on above:Performed By: #### CBCA #### [facility] ([address] [place] [address] VIRLYMPHOCYTES ABSOLUTE COUNT (10*3/UL) BY AUTOMATED COUNT1.9 10*3/uLNormal1.0-3.5PEast [facility] Regional HospitalComment on above:Performed By: #### CBCA #### [facility] ([address] [place] [address] VIRLYMPHOCYTES RELATIVE PERCENT BY AUTOMATED COUNT31.7 %Normal [facility] Cleveland-FairhillComment on above:Performed By: #### CBCA #### [facility] ([address] [place] [address] VIRMCH (RBC) [Entitic mass]29.1 fkNdwmpy23-23HpsRdllatHca Houston Healthcare Clear LakeComment on above:Performed By: #### CBCA #### [facility] ([address] [place] [address] VIRMCHC (RBC) [Mass/Vol]33.9 g/lGIkdxsz89-85TynDkrqpwSelect Medical Specialty Hospital - Cleveland-FairhillComment on above:Performed By: #### CBCA #### [facility] ([address] [place] [address] VIRMCV (RBC) [Entitic vol]86 tUZhyowo42-121VuoCilmph [facility]remont HospitalComment on above:Performed By: #### CBCA #### [facility] ([address] [place] [address] VIRMONOCYTES ABSOLUTE COUNT (10*3/UL) BY AUTOMATED COUNT0.4 10*3/uLNormal0.0-0.9[facility] Cleveland-FairhillComment on above:Performed By: #### CBCA #### [facility] ([address] [place] [address] VIRMONOCYTES RELATIVE PERCENT BY AUTOMATED COUNT5.9 %Normal [facility] Cleveland-FairhillComment on above:Performed By: #### CBCA #### [facility] ([address] [place] [address] VIRNEUTROPHILS ABSOLUTE COUNT BY AUTOMATED COUNT3.6 10*3/uL Normal1.5-6.6[facility] Cleveland-FairhillComment on above:Performed By: #### CBCA #### [facility] ([facility]) [address] [place] [address]. [place] [address] VIRNEUTROPHILS RELATIVE PERCENT BY AUTOMATED COUNT59.7 %Normal [facility] Cleveland-FairhillComment on above:Performed By: #### CBCA #### [facility] ([address] [place] [address] VIRPlatelet mean volume (Bld) [Entitic vol]7.9 fLNormal7-12 [facility] Cleveland-FairhillComment on above:Performed By: #### CBCA #### [facility] ([address] [place] [address] VIRPlatelets (Bld) [#/Vol]256 10*3/cTRigvre339-108GylOlespy [facility]remont HospitalComment on above:Performed By: #### CBCA #### [facility] ([address] [place] [address] VIRRBC COUNT4.82 X10E12/LNormal3.8-5.2PEast [facility] Regional HospitalComment on above:Performed By: #### CBCA #### [facility] ([address] [place] [address] VIRWBC (Bld) [#/Vol]6.0 10*3/uLNormal4-11ProHca Houston Healthcare Clear LakeComment on above:Performed By: #### CBCA #### [facility] ([address] [place] [address] VIRCOMPREHENSIVE METABOLIC PANELon 20-77-4953Qnjdhdx [Mass/Vol]3.4 g/dLNormal3.2-5.3PEast [facility] Regional HospitalComment on above: Performed By: #### CMP #### [facility] ([place] [address] [place] [address] VIRALP [Catalytic activity/Vol]118 U/GGaeebv03-132EwdOhvlntHca Houston Healthcare Clear LakeComment on above:Performed By: #### CMP #### [facility] ([place] [address] [place] [address] VIRALT [Catalytic activity/Vol]32 U/LHigh<=31PEast [facility] Regional HospitalComment on above:Performed By: #### CMP #### [facility] ([place] [address] [place] [address] VIRAnion gap [Moles/Vol]6 mmol/LNormal5-15ProHca Houston Healthcare Clear LakeComment on above:Performed By: #### CMP #### [facility] ([place] [address] [place] [address] VIRAST [Catalytic activity/Vol]14 U/LNormal<=41ProHca Houston Healthcare Clear LakeComment on above:Performed By: #### CMP #### [facility] ([place] [address] [place] [address] VIRBilirubin [Mass/Vol]0.4 mg/dLNormal0.3-1.2PEast [facility] Regional HospitalComment on above:Performed By: #### CMP #### [facility] ([place] [address] [place] [address] VIRCalcium [Mass/Vol]8.6 mg/dLNormal8.5-10.5PEast [facility] Regional HospitalComment on above:Performed By: #### CMP #### [facility] ([place] [address] [place] [address] VIRChloride [Moles/Vol]101 mmol/FQxkpkd41-439FkbZhroxhHca Houston Healthcare Clear LakeComment on above:Performed By: #### CMP #### [facility] ([place] [address] [place] [address] VIRCO2 [Moles/Vol]25 mmol/MMgcslo18-57VdfAlxehq [facility] HospitalComment on above:Performed By: #### CMP #### [facility] ([address] [place] [address] VIRCreatinine [Mass/Vol]0.45 mg/dLNormal0.40-1.00ProHca Houston Healthcare Clear LakeComment on above:Result Comment: METHOD TRACEABLE TO IDMS STANDARDPerformed By: #### CMP #### [facility] ([address] [place] [address] VIREGFR (CKD-EPI) NON-RACE DEPENDENT>^90Normal>=60ProHca Houston Healthcare Clear LakeComment on above:Result Comment: Reported eGFR is based on the CKD-EPI 2020 equation that does not use a race coefficient.Performed By: #### CMP #### [facility] [facility] ([address] [place] [address] VIRGlucose [Mass/Vol]401 mg/dLCritically ygnu65-40PxlYsvjztHca Houston Healthcare Clear LakeComment on above:Performed By: #### CMP #### [facility] ([address] [address] VIRPotassium [Moles/Vol]4.1 mmol/LNormal3.5-5.0[facility] - Cleveland-FairhillComment on above:Performed By: #### CMP #### [facility] ([address] [address] VIRProtein [Mass/Vol]6.2 g/dLNormal6.0-8.0ProHca Houston Healthcare Clear LakeComment on above:Performed By: #### CMP #### [address] [address] VIRSodium [Moles/Vol]132 mmol/OVja254-261BpyRrjtgjHca Houston Healthcare Clear LakeComment on above:Performed By: #### CMP #### [facility] ([address] [place] [address] VIRUrea nitrogen [Mass/Vol]14 mg/dLNormal5-23ProHca Houston Healthcare Clear LakeComment on above:Performed By: #### CMP #### [facility] ([address] [place] [address] VIRLACTATE W/ REFLEXon [id number] W/REFLEX1.3 mmol/L Normal0.4-2.0ProHca Houston Healthcare Clear LakeComment on above:Order Comment: Result did not trigger repeat Lactate, re-order if needed.Performed By: #### LACTS #### [facility] ([address] [place] [address] VIRMAGNESIUMon [id number] [Mass/Vol]1.8 mg/dLNormal 1.8-2.6ProHca Houston Healthcare Clear LakeComment on above:Performed By: #### MG #### [facility] ([address] [place] [address] VIRPH, VENOUSon 91-35-8744BX VENOUS7.915Hqfg3.320-7.420 [facility] Cleveland-FairhillComment on above:Performed By: #### PHV #### [address] [place] [address] VIRPOCT NURSING URINE MACROSCOPIC UAon [id number] RICKY NegativeNormalNegativeProHca Houston Healthcare Clear LakeComment on above:Performed By: #### NUM #### [address] [place] [address] VIRBLOOD/HGB NURNegativeNormalNegativeProHca Houston Healthcare Clear LakeComment on above:Performed By: #### NUM #### [address] [place] [address] VIRGLUCOSE RICKY>=1000 mg/dLAbnormalNegativeSelect Medical Specialty Hospital - Cleveland-FairhillComment on above:Performed By: #### NUM #### [facility] ([address] [address] VIRKETONES NURNegativeNocape fear valley hoke hospitalNegativeSelect Medical Specialty [facility] Comment on above:Performed By: #### NUM #### [facility] ([address] [place] [address] VIRLEUKOCYTE ESTERASE NURNegativeNormalNegativeSelect Medical Specialty Hospital - Cleveland-FairhillComment on above:Performed By: #### NUM #### [address] [address] VIRNITRITE NURNegativeNormalNegativeSelect Medical Specialty Hospital [facility] Comment on above:Performed By: #### NUM #### [address] [address] VIRPH NUR7.3Pnzouz5.0, 6.0, 6.5, 7.0, 7.5, 8.0, 8.5, 5.5 [facility] - Cleveland-FairhillComment on above:Performed By: #### NUM #### [facility] ([address] [address] VIRPROTEIN NURNegativeNormalNegativeSelect Medical Specialty Hospital [facility] Comment on above:Performed By: #### NUM #### [facility] ([address] [place] [address] VIRSPECIFIC GRAVITY NUR1.900Zwcxmn7.010, 1.015, 1.020, 1.025 [facility] Cleveland-FairhillComment on above:Performed By: #### NUM #### [address] [address] VIRUROBILINOGEN NUR0.2 E.U./dLMercy Health [facility]. [facility] Comment on above:Performed By: #### NUM #### [facility] ([facility]) [address] [place] [address] VIRDBT Breast - bilateral diagnosticon [id number] evidence of malignancy either breast. There is [...] to the patient regarding the results. The [employer] recommends annual mammograms for women 40 years and older. Performing Facility: [place] [address] Bethany Gabriel MD - 12/25/2024 EXAMINATION: DIAGNOSTIC [...] to the patient regarding the results. [employer] recommends annual mammograms for women 40 years and older. Performing Facility: [place] [address] [facility] CenterRadiology Study observation (narrative)[facility] HIPOLITO DIGITAL DIAGNOSTIC BILATERALon [id number] HIPOLITO DIGITAL DIAGNOSTIC BILATERALEXAMINATION: DIAGNOSTIC DIGITAL BILATERAL [...] to the patient regarding the results. The [employer] recommends annual mammograms for women 40 years and older. Performing Facility: [place] [address] Interpreted by: Bethany Melchor MD Signed by: Bethany Melchor MD 12/25/24 Final resultNormBethesda North Hospital Panel Informationon [id number] evidence of malignancy either breast. There is [...] to the patient regarding the results. The [employer] recommends annual mammograms for women 40 years and older. [facility] RIS CONSOLIDATEDEXAMINATION: DIAGNOSTIC DIGITAL BILATERAL BREASTS MAMMOGRAM [...] to the patient regarding the results. The [employer] recommends annual mammograms for women 40 years and older. [facility] LettuceThinnerInova Women's HospitalRadiology Study observation (narrative)[facility] ThermogenicsNo Panel InformationOrdered By: Bethany Jill on 20-42-9825Pxw Tucson Va Medical CenterCitizen Sports Work Phone: us BREAST LIMITED LEFTon [id number] BREAST LIMITED LEFTEXAMINATION: DIAGNOSTIC DIGITAL BILATERAL BREASTS [...] to the patient regarding the results. The [employer] recommends annual mammograms for women 40 years and older. Interpreted by: Bethany Melchor MD Signed by: Bethany Melchor MD 12/25/24 Final resultNormKam [place] [facility] Medical CenterUS BREAST LIMITED RIGHTon [id number] BREAST LIMITED RIGHTEXAMINATION: DIAGNOSTIC DIGITAL BILATERAL BREASTS [...] to the patient regarding the results. The [employer] recommends annual mammograms for women 40 years and older. Interpreted by: Bethany Melchor MD Signed by: Bethany Melchor MD 12/25/24 Final resultNoTrumbull Regional Medical Center auto differentialon 12-21-2024 Basophils (Bld) [#/Vol]0.05 10*3/uLBon Secours Mercy HealthBasophils/100 WBC (Bld)1 %0 - 2 %[facility] HealthEosinophils (Bld) [#/Vol]0.05 10*3/uLBon Secours Mercy HealthEosinophils/100 WBC (Bld)1 %1 - 4 %[facility] Health Erythrocyte distribution width (RBC) [Ratio]11.6 %Low11.8 - 14.4 %[facility] HealthHematocrit (Bld) [Volume fraction]41 %36.3 - 47.1 %[facility] HealthHemoglobin (Bld) [Mass/Vol]13.6 g/dL11.9 - 15.1 g/dLBon Secours MercInova Women's HospitalImmature granulocytes (Bld) [#/Vol]0 10*3/uLBon Secours Mercy Health Immature granulocytes/100 WBC (Bld)0 %0[facility] HealthInterpretation and review of laboratory resultsAbnormalBon Secours Mercy HealthLymphocytes/100 WBC (Bld)56 %High24 - 43 %[facility] HealthLymphocytes/100 WBC (Bld)2.92 %[facility]y [facility] CenterH (RBC) [Entitic mass]29.9 pg25.2 - 33.5 pgBon Secours Knox Community HospitalHC (RBC) [Mass/Vol]33.2 g/dL28.4 - 34.8 g/dLBon Secours Fort Hamilton Hospitaly [facility] Health CenterV (RBC) [Entitic vol]90.1 fL82.6 - 102.9 fLBon Secours Mercy HealthMonocytes/100 WBC (Bld)2 %Low3 - 12 %[facility] HealthMonocytes/100 WBC (Bld)0.1 %[facility] HealthMorphology Jerson (Bld) [Interp]NormalBon Secours Mercy HealthNeutrophils/100 WBC (Bld)40 %36 - 65 %[facility] HealthNucleated RBC/100 WBC (Bld) [Ratio]0 %0.0 per 100 WBCBon Secours Mercy HealthPlatelet mean volume (Bld) [Entitic vol]9.6 fL8.1 - 13.5 fLBon [facility]tering Health SpringfieldPlatelets (Bld) [#/Vol]262 10*3/uLBon [facility] SpringfieldRBC (Bld) [#/Vol]4.55 10*6/uL3.95 - 5.11 m/uLVirginia Hospital CenterSegmented neutrophils/100 WBC (Bld)2.08 %Bon [facility] SpringfieldWBC other (Bld) [#/Vol] 5.2Bon [facility] Day Surgery CenterCBC with Diffon 12-21-2024 Abs. Basophil0.05 k/uLNormal0.0-0.2Mercy Tabiona HospitalComment on above: Performed By: #### VBG #### [address] [place] [address] Unit Director: Marie Frazier.Imm.Granulocyte0.00 k/uLNormal0.00-0.30MerBarnesville Hospital HospitalComment on above:Performed By: #### VBG #### [address] [place] [address] Unit Director: Marie Frazier.Neutrophil (Seg)2.08 k/uLNormal1.50-8.10[facility] HospitalComment on above:Performed By: #### VBG #### [address] [place] [address] Unit Director: Loreta Zelaya MDBasophils/100 WBC (Bld)1 %Normal0-2MercBerger Hospital HospitalComment on above:Performed By: #### VBG #### [address] [place] [address] Unit Director: Loreta Zelaya MDEosinophils (Bld) [#/Vol]0.05 10*3/uLNormal 0.00-0.44MerBarnesville Hospital HospitalComment on above:Performed By: #### VBG #### [address] [place] [address] Unit Director: Loreta Zelaya MDEosinophils/100 WBC (Bld)1 %Normal1-4[facility] HospitalComment on above:Performed By: #### VBG #### [address] [place], [place] [address] Unit Director: Loreta Zelaya MDImmature granulocytes/100 WBC (Bld)0 %Iehuxs2Elpfr Tiffin HospitalComment on above:Performed By: #### VBG #### [address] [place], [facility]83 Unit Director: Loreta Zelaya MDLymphocytes (Bld) [#/Vol]2.92 10*3/uLNormal 1.10-3.70[facility] HospitalComment on above:Performed By: #### VBG #### [address] [place], [facility]83 Unit Director: Luciana Fraziermphocytes/100 WBC (Bld)56 %Odgb60-68Ulzlm Tiffin HospitalComment on above:Performed By: #### VBG #### [address] [place], [place] [address] Unit Director: MIGUELINA Frazieronocytes (Bld) [#/Vol]0.10 10*3/uLNormal0.10-1.[address] [facility] HospitalComment on above:Performed By: #### VBG #### [address] [place], [place] [address] Unit Director: MIGUELINA Frazieronocytes/100 WBC (Bld)2 %Low3-12W[facility] Community Hospitalcy Tabiona HospitalComment on above:Performed By: #### VBG #### [address] [place], [place] [address] Unit Director: MIGUELINA Frazierorphology Jerson (Bld) [Interp]NormalNormalMercy Health St. [facility] HospitalComment on above:Performed By: #### VBG #### [address] [place], [place] [address] Unit Director: Loreta Zelaya MDNeutrophil (Seg)40 %Wywvmn13-74Bnwzv Tiffin HospitalComment on above:Performed By: #### VBG #### [address] [place] [address] Unit Director: Loreta Zelaya MDErythrocyte distribution width (RBC) [Ratio]11.6 % Low11.8-14.4[facility] HospitalComment on above:Performed By: #### VBG #### [address] [place], [place] [address] Unit Director: Loreta Zelaya MDHematocrit (Bld) [Volume fraction]41.0 %Normal 36.3-47.1Mercy [facility] HospitalComment on above:Performed By: #### VBG #### [address] [place], [place] [address] Unit Director: Loreta Zelaya MDHemoglobin (Bld) [Mass/Vol]13.6 g/dLNormal 11.9-15.1MSumma Health Akron Campus HospitalComment on above:Performed By: #### VBG #### [address] [place], [place] [address] Unit Director: MIGUELINA FrazierCH (RBC) [Entitic mass]29.9 qbOqveoh39.2-33.[address] HospitalComment on above:Performed By: #### VBG #### [address] [place], [place] [address] Unit Director: Loreta Sturtz, MDMCHC (RBC) [Mass/Vol]33.2 g/aAEepdhl24.4-34.8[facility] Hospital - CincinnatiComment on above:Performed By: #### VBG #### [address] [place] [address] Unit Director: MIGUELINA FrazierCV (RBC) [Entitic vol]90.1 mREmjgye48.6-102.[address] HospitalComment on above:Performed By: #### VBG #### [address] [place] [address] Unit Director: TYREL Frazier Automated0.0 per [address] [facility] HospitalComment on above:Performed By: #### VBG #### [address] [place], [place] [address] Unit Director: Jamel Fraziertelet mean volume (Bld) [Entitic vol]9.6 fL Normal8.1-13.5[facility] Hospital - CincinnatiComment on above:Performed By: #### VBG #### [address] [place] [address] Unit Director: Jamel Fraziertezach (Bld) [#/Vol]262 10*3/cHYxrtrb825-[address] HospitalComment on above:Performed By: #### VBG #### [address] [place] [address] Unit Director: KEYLA FrazierBC (Bld) [#/Vol]4.55 10*6/uLNormal3.95-5.11[facility] HospitalComment on above:Performed By: #### VBG #### [address] [place] [address] Unit Director: TSERING Frazier (Bld) [#/Vol]5.2 10*3/uLNormal3.5-11.3Mer[facility] HospitalComment on above:Performed By: #### VBG #### [address] [place], [place] [address] Unit Director: RUTH Frazieromp Metabolic Pr/rfx MGon 91-45-4015Ahryoqx [Mass/Vol]3.6 g/dLNormal3.5-5.2[facility] HospitalComment on above:Performed By: #### VBG #### [address] [place], [place] [address] Unit Director: Loreta Zelaya MDAlbumin/Glob Ratio1.3Otfxac7.0-2.5[facility] HospitalComment on above:Performed By: #### VBG #### [address] [place] [address] Unit Director: Bill Frazierkaline Hkeb749 U/GXuiwsr90-818Hlqbo Tabiona HospitalComment on above:Performed By: #### VBG #### [address] [place] [address] Unit Director: Loreta Zelaya MDALT [Catalytic activity/Vol]19 U/ODyvsqm31-19Piidv Tabiona HospitalComment on above:Performed By: #### VBG #### [address] [place] [address] Unit Director: Loreta Zelaya MDAnion gap [Moles/Vol]10 mmol/LNormal9-16MerBarnesville Hospital HospitalComment on above:Performed By: #### VBG #### [address] [place], [place] [address] Unit Director: Loreta Zelaya MDAST [Catalytic activity/Vol]13 U/VGmhajf81-04Gbzfm Tabiona HospitalComment on above:Performed By: #### VBG #### [facility] [address] [place] [address] [place] [address] Unit Director: Loreta Zelaya MDBilirubin [Mass/Vol]0.2 mg/dLNormal0.00-1.20[facility] - CincinnatiComment on above:Performed By: #### VBG #### [address] [place] [address] Unit Director: Loreta Zelaya MDBUN/CRE Hrdlt29Geeh3-54EbnmrSelect Medical Specialty Hospital - Cincinnati Comment on above:Performed By: #### VBG #### [address] [place] [address] Unit Director: RUTH Frazieralcium [Mass/Vol]8.4 mg/dLLow8.6-10.4[facility] HospitalComment on above:Performed By: #### VBG #### [address] [place] [address] Unit Director: RUTH Frazierhloride [Moles/Vol]107 mmol/JOcyjbz10-511Jsobu [facility]iffin HospitalComment on above:Performed By: #### VBG #### [address] [place] [address] Unit Director: Loreta Zelaya MDCO2 [Moles/Vol]19 mmol/HVbm57-95Iltel [facility]iffin HospitalComment on above:Performed By: #### VBG #### [address] [place] [address] Unit Director: RUTH Frazierreatinine [Mass/Vol]0.4 mg/dLLow0.50-0.90[facility] - CincinnatiComment on above:Performed By: #### VBG #### [address] [place], [place] [address] Unit Director: Loreta Zelaya MDGFR/1.73 sq M.predicted among non-blacks MDRD (S/P/Bld) [Vol rate/Area]mL/min/{1.73_m2}Normal>60[facility] HospitalComment on above:Result Comment: These results are [...] renal tubular secretion.Performed By: #### VBG #### [address] [place] [address] Unit Director: Loreta Zelaya MDGlucose [Mass/Vol]146 mg/kVUswm31-89Tozmw Hartford HospitalComment on above:Performed By: #### VBG #### [address] [place], [facility]83 Unit Director: SUZY Frazierotassium [Moles/Vol]3.8 mmol/LNormal3.7-5.3[facility] HospitalComment on above:Performed By: #### VBG #### [address] [place], [facility]83 Unit Director: Loreta Zelaya MDProtein [Mass/Vol]6.0 g/dLLow6.6-8.7[facility] - CincinnatiComment on above:Performed By: #### VBG #### [address] [place], [place] [address] Unit Director: Loreta Zelaya MDSodium [Moles/Vol]136 mmol/XKwgkmd657-212Eavem [facility]iffin HospitalComment on above:Performed By: #### VBG #### [address] [place], [place] [address] Unit Director: Loreta Zelaya MDUrea nitrogen [Mass/Vol]14 mg/dLNormal6-20[facility] HospitalComment on above:Performed By: #### VBG #### [facility] [address] [place] [address] Unit Director: Loreta Zelaya [facility] – TULSAomprehensive Metabolic Panel w/ Reflex to MGon 35-54-8666Mgaybqx [Mass/Vol]3.6 g/dL3.5 - 5.2 g/dLBon [facility] Albumin/Globulin [Mass ratio]1.5 {ratio}1.0 - 2.5Bon [facility] SpringfieldALP [Catalytic activity/Vol]103 U/L35 - 104 U/LBon [facility] SpringfieldALT [Catalytic activity/Vol]19 U/L10 - 35 U/LBon [facility] SpringfieldAnion gap [Moles/Vol]10 mmol/L9 - 16 mmol/LBon [facility] SpringfieldAST [Catalytic activity/Vol]13 U/L10 - 35 U/LBon [facility] SpringfieldBilirubin [Mass/Vol]0.2 mg/dL0.00 - 1.20 mg/dLBon [facility] SpringfieldCalcium [Mass/Vol]8.4 mg/dLLow8.6 - 10.4 mg/dLBon [facility] SpringfieldChloride [Moles/Vol]107 mmol/L98 - 107 mmol/LBon [facility] SpringfieldCO2 [Moles/Vol]19 mmol/LLow20 - 31 mmol/LBon [facility] SpringfieldCreatinine [Mass/Vol]0.4 mg/dLLow0.50 - 0.90 mg/dLBon [facility] SpringfieldEst, Glom Filt Rate- PINFBon Kettering Health SpringfieldComtrinity health [facility] hospital on above: These results are not intended [...] that affects renal tubular secretion. Glucose [Mass/Vol]146 mg/pIXaad63 - 99 mg/dLBon [facility] Interpretation and review of laboratory resultsAbnormalBon [employer] Potassium [Moles/Vol]3.8 mmol/L3.7 - 5.3 mmol/LBon SecNewco Insurance HealthProtein [Mass/Vol]6 g/dLLow6.6 - 8.7 g/dLBon SecCitizen SportsSodium [Moles/Vol]136 mmol/L136 - 145 mmol/LBon SecCitizen SportsUrea nitrogen [Mass/Vol]14 mg/dL6 - 20 mg/dLBon SecCitizen SportsUrea nitrogen/Creatinine [Mass ratio]35 mg/mg High9 - 20Bon iRex TechnologiesEKG 12 Lead (Chest Pain)Ordered By: Mode Coffman on 15-79-6374Djlzzg Votj06WTUDivInstaEDU Work Phone: P Odfc98vkpoljkTuqLinkConnector Corporation Work Phone: P-R Qxirjhji912 wmbly Work Phone: [phone] Asdrzcxn214 wmbly Work Phone: QRS Lsbiqrtk81 wmbly Work Phone: QTc Calculation (Bazett)474 msBoulder Ionics Work Phone: R Zklo831vowptorIvlLinkConnector Corporation Work Phone: T Tlxp11fumzhebXimLinkConnector Corporation Work Phone: Ventricular Tkxb43KGLJovInstaEDU Work Phone: Bon [employer] Work Phone: [phone] 12 Lead (Chest Pain)on 64-71-3191Wmeozy sinus rhythm Rightward axis Borderline ECG ECG not diagnostic for Acute Coronary Syndrome; consider clinical findings When compared with ECG of 16-Oct-2024 20:05, QRS axis Shifted right Confirmed by Mode Coffman ([id number]) on 12/21/2024 8:47:09 AMNortheast Georgia Medical Center BraseltonMode ha MD - 12/21/2024 Normal sinus rhythm Rightward axis Borderline ECG ECG not diagnostic for Acute Coronary Syndrome; consider clinical findings When compared with ECG of 16-Oct-2024 20:05, QRS axis Shifted right Confirmed by Mode Coffman ([id number]) on 12/21/2024 8:47:09 AM Bon [facility] SpringfieldEKG Rhythm Stripon 08-65-1212VQBBVHOLZER HEALTH SYSTEM LABBon [facility]tering Health SpringfieldGlucose, Whole Bloodon 41-65-1106Xpzpuvb [Mass/Vol]264 mg/mELfbh53 - 100 mg/dLBon [facility] SpringfieldInterpretation and review of laboratory resultsAbnormRiverside Health SystemGlucose [Mass/Vol]264 mg/kEYktp45-320EceuxSelect Medical Specialty Hospital - CincinnatiGlucose [Mass/Vol]166 mg/qETaje23 - 100 mg/dLBon [facility] SpringfieldInterpretation and review of laboratory resultsAbnoLandmann-Jungman Memorial HospitalGlucose [Mass/Vol]166 mg/rFEmeq15-097MkmuqSelect Medical Specialty Hospital - CincinnatiGlucose [Mass/Vol]195 mg/vGGczh22 - 100 mg/dLBon [facility] SpringfieldInterpretation and review of laboratory resultsAbMilbank Area Hospital / Avera HealthGlucose [Mass/Vol]195 mg/hFZyvp83-784HrwasSelect Medical Specialty Hospital - CincinnatiUrinalysis w/ Microon 27-47-9203Ngtulucem, SemiQt,UrNegativeNoCleveland Clinic Fairview Hospital Comment on above:Performed By: #### UAMIC #### [facility] [address] [place] [address] [place] [address] Unit Director: Lillian Frazier, UrineNegativeDayton Osteopathic Hospital Comment on above:Performed By: #### UAMIC #### [facility] [address] [place] [address] Unit Director: Santi Frazier (ClearNormalCUniversity Hospitals Conneaut [facility] Comment on above:Performed By: #### UAMIC #### [facility] [address] [place] [address] [place], [place] [address] Unit Director: RUTH Frazierolor (U)YellowNormalYAkron Children's Hospital Comment on above:Performed By: #### UAMIC #### [address] [place], [place] [address] Unit Director: Loreta Zelaya MDEpithelial cells LM Ql (Urine sed)NoneNormal0-25 [facility] - CincinnatiComment on above:Performed By: #### UAMIC #### [address] [place], [place] [address] Unit Director: Loreta Zelaya MDGlucose Ql (U)3+ mg/dLAbnormalNEGSelect Medical Specialty Hospital - CincinnatiComment on above:Performed By: #### UAMIC #### [address] [place], [place] [address] Unit Director: Loreta Zelaya MDKetones Ql (U)4+ mg/dLAbnormalNEGSelect Medical Specialty Hospital - CincinnatiComment on above:Performed By: #### UAMIC #### [address] [place], [place] [address] Unit Director: Loreta Zelaya MDLeukocyte esterase Test strip Ql (U)NegativeNormal NEGSelect Medical Specialty Hospital - CincinnatiComment on above:Performed By: #### UAMIC #### [address] [place], [facility]83 Unit Director: Loreta Zelaya MDNitrite,UrNegativeNormalNEGSelect Medical Specialty Hospital - Cincinnati Comment on above:Performed By: #### UAMIC #### [address] [place], [place] [address] Unit Director: Loreta Zelaya [facility],Ur6.2Uaicgb8.0-9.0MerManchester Memorial HospitalComment on above:Performed By: #### UAMIC #### [facility] [address] [place] [address] [place] [address] Unit Director: SUZY Frazierrotein Ql (U)NegativeNormalNEGSelect Medical Specialty Hospital - CincinnatiComment on above:Performed By: #### UAMIC #### [facility] [address] [place] [address] [place] [address] Unit Director: Cielo Frazier. [place],Ur<1.370Uqt0.010-1.020[facility] - CincinnatiComment on above:Performed By: #### UAMIC #### [facility] [address] [place] [address] [place] [address] Unit Director: Tawny Frazier RBCsNoneNocape fear valley hoke hospital0-2MPremier Health Miami Valley Hospital Comment on above:Performed By: #### UAMIC #### [facility] [address] [place] [address] [place], [place] [address] Unit Director: Tawny Frazier WBC'sNoneNormal0-5[facility] Comment on above:Performed By: #### UAMIC #### [facility] [address] [place] [address] [place] [address] Unit Director: Loreta Zelaya MDUrobilinogen,UrNormalNormal0.0-1.0[facility] - CincinnatiComment on above:Performed By: #### UAMIC #### [facility] [address] [place] [address] [place], [place] [address]383 Unit Director: Loreta Zelaya MDYeastPRESENCE NOTEDAbnormalNONEMeUniversity of Connecticut Health Center/John Dempsey HospitalComment on above:Performed By: #### UAMIC #### [facility] [address] [place] [address] [place], [place] [address] Unit Director: Loreta Zelaya MDUrinalysis with Microscopicon 81-26-7684Qpimxytwc Ql (U)NegativeNEGATIVEBon Secours Crystal Clinic Orthopedic CenterClarity (U)ClearClearBon Secours Crystal Clinic Orthopedic CenterColor (U)YellowYellowBon Secours Mercy HealthEpithelial cells LM.HPF (Urine sed) [#/Area]NoneBon Secours Mercy HealthGlucose Test strip (U) [Mass/Vol]3+AbnormalNEGATIVE mg/dLBon Secours Mercy HealthHemoglobin Auto test strip Ql (U)NegativeNEGATIVEBon Secours Mercy [...] (Urine sed)PRESENCE NOTEDAbnormalNoneBon Secours Mercy HealthBon Secours Mercy HealthBMPon 95-13-9584Yjipb gap [Moles/Vol]14 mmol/L9 - 16 mmol/LBon Secours Mercy HealthCalcium [Mass/Vol]7.9 mg/dLLow8.6 - 10.4 mg/dLBon Secours Mercy HealthChloride [Moles/Vol]102 mmol/L98 - 107 mmol/LBon Secours Mercy HealthCO2 [Moles/Vol]18 mmol/LLow20 - 31 mmol/LBon [facility] Creatinine [Mass/Vol]0.6 mg/dL0.50 - 0.90 mg/dLBon Secours Mercy HealthEst, Glom Filt Rate- PINFBon Secours Mercy HealthComment on above: These results are not [...] that affects renal tubular secretion. Glucose [Mass/Vol]370 mg/qLVgsn12 - 99 mg/dLBon [facility] Interpretation and review of laboratory resultsAbnormalVirginia Hospital Center Potassium [Moles/Vol]4 mmol/L3.7 - 5.3 mmol/LBon [facility] SpringfieldSodium [Moles/Vol]134 mmol/IQkq237 - 145 mmol/LBon [facility] SpringfieldUrea nitrogen [Mass/Vol]16 mg/dL6 - 20 mg/dLBon [facility] SpringfieldUrea nitrogen/Creatinine [Mass ratio]27 mg/mgHigh9 - 20[facility] Basic Metabolic Profon 80-93-1494Xapka gap [Moles/Vol]14 mmol/LNormal9-16[facility] Hospital - CincinnatiComment on above:Performed By: #### BMP #### [facility] [address] [place] [address] [place] [address] Unit Director: Loreta Zelaya MDBUN/CRE Yumfr58Ixzs1-18QbueaSelect Medical Specialty Hospital - Cincinnati Comment on above:Performed By: #### BMP #### [address] [place] [address] Unit Director: RUTH Frazieralcium [Mass/Vol]7.9 mg/dLLow8.6-10.4[facility] Hospital - CincinnatiComment on above:Performed By: #### BMP #### [facility] [address] [place] [address] [place] [address] Unit Director: RUTH Frazierhloride [Moles/Vol]102 mmol/RAlzxmi74-811SolphSelect Medical Specialty Hospital - CincinnatiComment on above:Performed By: #### BMP #### [facility] [address] [place] [address] [place] [address] Unit Director: RUTH FrazierO2 [Moles/Vol]18 mmol/KGdf76-82IbyrsSelect Medical Specialty Hospital - CincinnatiComment on above:Performed By: #### BMP #### [address] [place] [address] Unit Director: RUTH Frazierreatinine [Mass/Vol]0.6 mg/dLNormal0.50-0.90Select [facility] Hospital - CincinnatiComment on above:Performed By: #### BMP #### [address] [place], [facility]83 Unit Director: Loreta Zelaya MDGFR/1.73 sq M.predicted among non-blacks MDRD (S/P/Bld) [Vol rate/Area]mL/min/{1.73_m2}Normal>60[facility] Hospital - CincinnatiComment on above:Result Comment: These results are not [...] renal tubular secretion.Performed By: #### BMP #### [address] [place] [address] Unit Director: Loreta Zelaya MDGlucose [Mass/Vol]370 mg/oOTdnv48-07Abvte Hartford HospitalComment on above:Performed By: #### BMP #### [address] [place] [address] Unit Director: Loreta Zelaya MDPotassium [Moles/Vol]4.0 mmol/LNormal3.7-5.3MPremier Health Miami Valley HospitalComment on above:Performed By: #### BMP #### [address] [place] [address] Unit Director: Loreta Zelaya MDSodium [Moles/Vol]134 mmol/LJue933-040UijtcSelect Medical Specialty Hospital - CincinnatiComment on above:Performed By: #### BMP #### [facility] [address] [place] [address] Dr[place], [place] [id number] Unit Director: Loreta Zelaya MDUrea nitrogen [Mass/Vol]16 mg/dLNormal6-20[facility] Hospital - CincinnatiComment on above:Performed By: #### BMP #### [address] [place] [id number] Unit Director: Loreta Zelaya MDBeta Hydroxybutyrateon 17-24-9580Ljgn Hydroxybutyrate3.86 mmol/LHigh0.02-0.27Select [facility] Hospital - CincinnatiComment on above: Performed By: #### INSU #### [facility] [address] [place] [address] [id number] Unit Director: Gee Royal MD [address] [place] [id number] Unit Director: Loreta Zelaya MD #### CPEP #### [facility] [address] [place], [place] 8[address] Unit Director: Gee Royal MDBeta-Hydroxybutyrateon 06-38-0336Jlbl hydroxybutyrate [Mass/Vol]3.86 mmol/LHigh0.02 - 0.27 mmol/LBon [facility] SpringfieldInterpretation and review of laboratory resultsAbnormRiverside Health SystemBlood Gas, Venouson 06-89-3991Rqboivnk patency Wrist artery --pre arterial punctureNOT Augusta HealthHCO3 (Bld) [Moles/Vol]17.9 mmol/LLow24.0 - 30.0 mmol/LBon [facility] Interpretation and review of laboratory resultsAbCarilion New [facility] Negative Base Excess, Ven6.3 mmol/LHigh0.0 - 2.0 mmol/LBon [facility] Oxygen gas flow Oxygen delivery systemBon Secours St. Mary's HospitalOxygen saturation in Blood83 %60.0 - 85.0 %[facility] HealthOxygen/Inspired gas Respiratory system --on vlzltaclgn56Ehk Secours Mercy HealthpCO2, Ven32.4LowBon Secours Mercy HealthpCO2, Erik, Temp Adj32.4LowBon Secours Mercy HealthpH, Erik 7.3617.32 - 7.42Bon [facility] HealthpH, Erik, Temp Adj7.3617.320 - 7.420Bon [facility] HealthPO2, Ven48.2Bon [facility] HealthpO2, Erik, Temp Adj48.2 [facility] Hospitaly HealthBon [facility] Hospitaly HealthCBC with Auto Differentialon 69-95-4843Xcowkadzn (Bld) [#/Vol]0.04 10*3/uLBon Secours [facility] Hospitaly Health Basophils/100 WBC (Bld)1 %0 - 2 %[facility] Hospitaly HealthEosinophils (Bld) [#/Vol]0.15 10*3/uLBon [facility]ours [facility] Hospitaly HealthEosinophils/100 WBC (Bld)3 %1 - 4 % [facility] Hospitaly HealthErythrocyte distribution width (RBC) [Ratio]11.6 %Low 11.8 - 14.4 %[facility] HealthHematocrit (Bld) [Volume fraction]46.4 % 36.3 - 47.1 %[facility] Hospitaly HealthHemoglobin (Bld) [Mass/Vol]15.8 g/dLHigh 11.9 - 15.1 g/dLBon SecDoctors Hospitaly HealthImmature granulocytes (Bld) [#/Vol][facility]y HealthImmature granulocytes/100 WBC (Bld)0 %0[facility]y HealthInterpretation and review of laboratory resultsAbnormalBon [facility]ours [facility] Hospitaly HealthLymphocytes/100 WBC (Bld)43 %24 - 43 %Bon SecDoctors Hospitaly Health Lymphocytes/100 WBC (Bld)2.46 %[facility] Hospitaly [facility] CenterH (RBC) [Entitic mass] 30.5 pg25.2 - 33.5 pgBon Secours Crystal Clinic Orthopedic CenterMCHC (RBC) [Mass/Vol]34.1 g/dL28.4 - 34.8 g/dLBon SecAdena Health SystemV (RBC) [Entitic vol]89.6 fL82.6 - 102.9 fL [facility] HealthMonocytes/100 WBC (Bld)6 %3 - 12 %Bon SecThe [facility] HealthMonocytes/100 WBC (Bld)0.35 %Bon [facility] SpringfieldNeutrophils/100 WBC (Bld)47 %36 - 65 %Bon [facility] SpringfieldNucleated RBC/100 WBC (Bld) [Ratio]0 % 0.0 per 100 WBCBon [facility] HealthPlatelet mean volume (Bld) [Entitic vol] 9.8 fL8.1 - 13.5 fLBon SecThe NeuroMedical Center HealthPlatelets (Bld) [#/Vol]288 10*3/uLBon SecThe NeuroMedical Center HealthRBC (Bld) [#/Vol]5.18 10*6/uLHigh3.95 - 5.11 m/uLBon [facility] SpringfieldSegmented neutrophils/100 WBC (Bld)2.7 %[facility] Hospital CenterWBC other (Bld) [#/Vol]5.7Bon SecCleveland Clinic FoundationBon [facility] CBC with Diffon [id number]. Basophil0.04 k/uLNormal0.00-0.20Select [facility]ty Hospital - CincinnatiComment on above:Performed By: #### INSU #### [place] [address] Unit Director: Gee Royal MD [address] [place] [id number] Unit Director: Loreta Zelaya MD #### CPEP #### [facility] [employer] [address] [place], [place] 3[address] Unit Director: Gee Royal MDAbs.Imm.Granulocyte<0.80Lupwjh2.00-0.30Select [facility]ty Hospital - CincinnatiComment on above:Performed By: #### INSU #### [place] [address] Unit Director: Gee Royal MD [address] [place] [id number] Unit Director: Loreta Zelaya MD #### CPEP #### [address] [address] Unit Director: Marie Pineda.Neutrophil (Seg)2.70 k/uLNormal1.50-8.10 [facility] Hospital - CincinnatiComment on above:Performed By: #### INSU #### [address] [address] Unit Director: Gee Royal MD [address] [place] [address] Unit Director: Loreta Zelaya MD #### CPEP #### [address] [address] Unit Director: Gee Royal MDBasophils/100 WBC (Bld)1 %Normal0-2MPremier Health Miami Valley HospitalComtrinity health [facility] on above:Performed By: #### INSU #### [address] [address] Unit Director: Gee Royal MD [address] [place] [address] Unit Director: Loreta Zelaya MD #### CPEP #### [address] [address] Unit Director: Gee Royal MDEosinophils (Bld) [#/Vol]0.15 10*3/uLNormal 0.00-0.44[facility] Hospital - CincinnatiComtrinity health livingston hospital on above:Performed By: #### INSU #### [address] [address] Unit Director: Gee Royal MD [address] [place] [id number] Unit Director: Loreta Zelaya MD #### CPEP #### [address] [address] Unit Director: Gee Royal MDEosinophils/100 WBC (Bld)3 %Normal1-4Select [facility] Hospital - CincinnatiComment on above:Performed By: #### INSU #### [address] [address] Unit Director: Gee Royal MD [address] [place] [id number] Unit Director: Loreta Zelaya MD #### CPEP #### [address] [address] Unit Director: Gee Royal MDErythrocyte distribution width (RBC) [Ratio]11.6 %Low11.8-14.4Select [facility] Hospital - CincinnatiComment on above:Performed By: #### INSU #### [address] [address] Unit Director: Gee Royal MD [address] [place] [id number] Unit Director: Loreta Zelaya MD #### CPEP #### [address] [address] Unit Director: Gee Royal MDHematocrit (Bld) [Volume fraction]46.4 %Normal 36.3-47.1MPremier Health Miami Valley HospitalComment on above:Performed By: #### INSU #### [address] [address] Unit Director: Gee Royal MD [address] [place] [id number] Unit Director: Loreta Zelaya MD #### CPEP #### [address] [address] Unit Director: Gee Royal MDHemoglobin (Bld) [Mass/Vol]15.8 g/dLHigh 11.9-15.1MPremier Health Miami Valley HospitalComment on above:Performed By: #### INSU #### [address] [address] Unit Director: [place] [address] Unit Director: Loreta Zelaya MD #### CPEP #### [address] [address] Unit Director: Gee Royal MDImmature granulocytes/100 WBC (Bld)0 %Normal0 [facility] Hospital - CincinnatiComment on above:Performed By: #### INSU #### [address] [address] Unit Director: [place] [address] Unit Director: Loreta Zelaya MD #### CPEP #### [address] [address] Unit Director: Gee Royal MDLymphocytes (Bld) [#/Vol]2.46 10*3/uLNormal 1.10-3.70[facility] Hospital - CincinnatiComment on above:Performed By: #### INSU #### [address] [address] Unit Director: [place] [address] Unit Director: Loreta Zelaya MD #### CPEP #### [address] [address] Unit Director: Gee Royal MDLymphocytes/100 WBC (Bld)43 %Hagppw82-64JjbqjSelect Medical Specialty Hospital - CincinnatiComment on above:Performed By: #### INSU #### [address] [address] Unit Director: Gee Royal MD [address] [place], [place] 3739183 Unit Director: Loreta Zelaya MD #### CPEP #### [address] [address] Unit Director: MIGUELINA PinedaCH (RBC) [Entitic mass]30.5 xuLpbggv26.2-33.5 [facility] Hospital - CincinnatiComment on above:Performed By: #### INSU #### [address] [address] Unit Director: Gee Royal MD [address] [place] [address] Unit Director: Loreta Zelaya MD #### CPEP #### [address] [address] Unit Director: MIGUELINA PinedaCHC (RBC) [Mass/Vol]34.1 g/nLRwzwds96.4-34.8 [facility] Hospital - CincinnatiComment on above:Performed By: #### INSU #### [address] [address] Unit Director: Gee Royal MD [address] [place] [phone] Unit Director: Loreta Zelaya MD #### CPEP #### [address] [address] Unit Director: MIGUELINA PinedaCV (RBC) [Entitic vol]89.6 ePGudhag52.6-102.9 [facility] Hospital - CincinnatiComment on above:Performed By: #### INSU #### [address] [address] Unit Director: Gee Royal MD [address] [place] [address] Unit Director: Loreta Zelaya MD #### CPEP #### [address] [address] Unit Director: Gee Royal MDMonocytes (Bld) [#/Vol]0.35 10*3/uLNormal 0.10-1.20[facility] Hospital - CincinnatiComment on above:Performed By: #### INSU #### [address] [address] Unit Director: Gee Royal MD [address] [place] [phone] Unit Director: Loreta Zelaya MD #### CPEP #### [address] [address] Unit Director: Gee Royal MDMonocytes/100 WBC (Bld)6 %Normal3-12[facility] Hospital - CincinnatiComment on above:Performed By: #### INSU #### [address] [address] Unit Director: Gee Royal MD [address] [place] [address] Unit Director: Loreta Zelaya MD #### CPEP #### [address] [address] Unit Director: Gee Royal MDNeutrophil (Seg)47 %Gbdniv21-87TdhitSelect Medical Specialty Hospital - CincinnatiComment on above:Performed By: #### INSU #### [address] [address] Unit Director: Gee Royal MD [address] [place] [phone] Unit Director: Loreta Zelaya MD #### CPEP #### [address] [address] Unit Director: Gee Royal MDNRBC Automated0.0 per 100 WBCNormal0.0Select [facility] Hospital - CincinnatiComment on above:Performed By: #### INSU #### [address] [address] Unit Director: Gee Royal MD [address] [place] [address] Unit Director: Loreta Zelaya MD #### CPEP #### [address] [address] Unit Director: Helena Pineda mean volume (Bld) [Entitic vol]9.8 fL Normal8.1-13.5Select [facility] Special[facility] Hospital - CincinnatiComment on above:Performed By: #### INSU #### [address] [address] Unit Director: Gee Royal MD [address] [place] [address] Unit Director: Loreta Zelaya MD #### CPEP #### [address] [address] Unit Director: Luna Pineda (Bld) [#/Vol]288 10*3/iPWufifz788-182 [facility] Hospital - CincinnatiComment on above:Performed By: #### INSU #### [address] [address] Unit Director: Gee Royal MD [address] [place] [address] Unit Director: Loreta Zelaya MD #### CPEP #### [address] [address] Unit Director: SARA Pineda (Bld) [#/Vol]5.18 10*6/uLHigh3.95-5.11[facility] Hospital - CincinnatiComtrinity health livingston hospital on above:Performed By: #### INSU #### [facility] [address] [place] [address] Unit Director: Gee Royal MD [address] [place] [address] Unit Director: Loreta Zelaya MD #### CPEP #### [address] [address] Unit Director: Gee Royal MDWBC (Bld) [#/Vol]5.7 10*3/uLNormal3.5-11.3Mparkview healthy Hartford HospitalComment on above:Performed By: #### INSU #### [address] [address] Unit Director: Gee Royal MD [address] [place] [address] Unit Director: Loreta Zelaya MD #### CPEP #### [address] [address] Unit Director: Gee Royal [facility] 52-89-7032Wovovfv [Mass/Vol]4.2 g/dL3.5 - 5.2 g/dLBon [facility] Health SpringfieldAlbumin/Globulin [Mass ratio]1.4 {ratio}1.0 - 2.5Bon [facility] SpringfieldALP [Catalytic activity/Vol]148 U/LHigh35 - 104 U/L [facility] HealthALT [Catalytic activity/Vol]27 U/L10 - 35 U/LBon [facility] Health SpringfieldAnion gap [Moles/Vol]19 mmol/LHigh9 - 16 mmol/LBon [facility] HealthAST [Catalytic activity/Vol]19 U/L10 - 35 U/LBon [facility] Health Comment on above:Specimen hemolysis has exceeded the interference as defined by Kat. Value may be falsely increased. Suggest recollection if clinically indicated. Bilirubin [Mass/Vol]0.3 mg/dL0.00 - 1.20 mg/dLBon [facility] SpringfieldCalcium [Mass/Vol]9.2 mg/dL8.6 - 10.4 mg/dLBon [facility] SpringfieldChloride [Moles/Vol] 92 mmol/LLow98 - 107 mmol/LBon [facility] CenterHello World Mobile Fort [facility] HospitalClearside Biomed[employer] [facility] HospitalCO2 [Moles/Vol]19 mmol/LLow20 - 31 mmol/LBon [facility] CenterHello [employer] [facility] HospitalClearside Biomedical [facility] HospitalCreatinine [Mass/Vol]0.6 mg/dL0.50 - 0.90 mg/dLBon [facility] HospitalClearside Biomedical [facility] HospitalEst, Glom Filt Rate- PINFBon [facility] Comment on above: These results are not [...] Glucose [Mass/Vol]516 mg/dLCritically high74 - 99 mg/dLBon [facility] Interpretation and review of laboratory resultsAbnormalBon [facility] Potassium [Moles/Vol]4.8 mmol/L3.7 - 5.3 mmol/LBon [facility] Foundation HospitalClearside Biomedical [facility] HospitalComment on above:Specimen hemolysis has exceeded the interference as defined by Kat. Value may be falsely increased. Suggest recollection if clinically indicated. Protein [Mass/Vol]7.2 g/dL6.6 - 8.7 g/dLBon [facility] SpringfieldSodium [Moles/Vol]130 mmol/FLpz864 - 145 mmol/LBon [facility] CenterHello [facility] Mobile [facility] HospitalClearside Biomedical [facility] HospitalUrea nitrogen [Mass/Vol]19 mg/dL6 - 20 mg/dLBon [facility] SpringfieldUrea nitrogen/Creatinine [Mass ratio]32 mg/mgHigh9 - 20Bon [facility] CenterNewco Insurance [facility] HospitalCT HEAD WO CONTRASTon 19-07-1406YG HEAD WO CONTRASTEXAMINATION: CT OF THE HEAD [...] Signed by: Tavo Almonte MD 12/20/24 Final resultNormalMerManchester Memorial HospitalCT Head WO contraston 70-40-6311Jk acute intracranial abnormality. [facility] CONSOLIDATEDEXAMINATION: CT OF THE HEAD WITHOUT CONTRAST [...] of the visualized skull or soft tissues. [facility] Tavo Claudio MD - 12/20/2024 EXAMINATION: CT [...] soft tissues. IMPRESSION: No acute intracranial abnormality. [facility] Matter and FormRadiology Study observation (narrative)[facility] Matter and FormCT Head WO contrastOrdered By: Tavo Almonte on 30-47-9043Qoh [employer] Work Phone: CTA HEAD NECK W CONTRASTon [id number] HEAD NECK W CONTRASTEXAMINATION: CTA OF THE [...] Signed by: Amaury Khan MD 12/20/24 Final resultNormalMerSt. Vincent's Medical Center Head vessels and Neck vessels W contrast Wesley . No evidence of arterial stenosis or occlusion in the head or neck. 2. Diffuse goiter. [facility] RIS CONSOLIDATEDEXAMINATION: CTA OF THE HEAD AND NECK [...] fluid collection. The alexander-white differentiation is maintained. Amaury Murray MD - 12/20/2024 EXAMINATION: CTA OF THE [...] the head or neck. 2. Diffuse goiter. [facility] CenterRadiology Study observation (narrative)[facility] CenterCTA Head vessels and Neck vessels W contrast IVOrdered By: Amaury Khan on 09-08-2756Fpw [facility] HospitalPatientco Work Phone: Comp Metabolic Profon 16-09-3179Fishpkg [Mass/Vol]4.2 g/dLNormal3.5-5.2MPremier Health Miami Valley HospitalComment on above:Performed By: #### INSU #### [address] [address] Unit Director: Gee Royal MD [address] [place], [place] 136[address]83 Unit Director: Loreta Zelaya MD #### CPEP #### [address] [address] Unit Director: Gee Royal MDAlbumin/Glob Ratio1.3Manvqm8.0-2.5[facility] Hospital - CincinnatiComment on above:Performed By: #### INSU #### [address] [address] Unit Director: Gee Royal MD [address] [place] [address]83 Unit Director: Loreta Zelaya MD #### CPEP #### [address] [address] Unit Director: Reny Pineda Jbbu202 U/MFxyz19-882OunpuSelect Medical Specialty Hospital - CincinnatiComment on above:Performed By: #### INSU #### [address] [address] Unit Director: Gee Royal MD [address] [place] [address]83 Unit Director: Loreta Zelaya MD #### CPEP #### [address] [address] Unit Director: SAMANTHA Pineda [Catalytic activity/Vol]27 U/RWxutxe16-66 [facility] - CincinnatiComment on above:Performed By: #### INSU #### [address] [address] Unit Director: Gee Royal MD [address] [place], [place] 6585383 Unit Director: Loreta Zelaya MD #### CPEP #### [address] [address] Unit Director: Gee Royal MDAnion gap [Moles/Vol]19 mmol/LHigh9-16[facility] Hospital - CincinnatiComment on above:Performed By: #### INSU #### [address] [address] Unit Director: Gee Royal MD [address] [place] [address] Unit Director: Loreta Zelaya MD #### CPEP #### [address] [address] Unit Director: Gee Royal MDAST [Catalytic activity/Vol]19 U/MEmicby18-79 [facility] - CincinnatiComtrinity health livingston hospital on above:Result Comment: Specimen hemolysis has exceeded the interference as defined by Kat. Value may be falsely increased. Suggest recollection if clinically indicated.Performed By: #### INSU #### [facility] [address] [place] [address] Unit Director: Gee Royal MD [address] [place] [address] Unit Director: Loreta Zelaya MD #### CPEP #### [address] [address] Unit Director: Gee Royal MDBilirubin [Mass/Vol]0.3 mg/dLNormal0.00-1.20 [facility] CincinnatiComtrinity health livingston hospital on above:Performed By: #### INSU #### [facility] [address] [place] [address] Unit Director: Gee Royal MD [address] [place] [address] Unit Director: Loreta Zelaya MD #### CPEP #### [address] [address] Unit Director: Gee Royal MDBUN/CRE Fgxea51Upcv5-10PwxtrSelect Medical Specialty Hospital - Cincinnati Comment on above:Performed By: #### INSU #### [address] [address] Unit Director: Gee Royal MD [address] [place], [place] 2146883 Unit Director: Loreta Zelaya MD #### CPEP #### [address] [address] Unit Director: RUTH Pinedaalcium [Mass/Vol]9.2 mg/dLNormal8.6-10.4[facility] Hospital - CincinnatiComment on above:Performed By: #### INSU #### [address] [address] Unit Director: Gee Royal MD [address] [place] [address] Unit Director: Loreta Zelaya MD #### CPEP #### [address] [address] Unit Director: RUTH Pinedahloride [Moles/Vol]92 mmol/AIte30-130LcvknSelect Medical Specialty Hospital - CincinnatiComment on above:Performed By: #### INSU #### [address] [address] Unit Director: Gee Royal MD [address] [place], [place] 928[address]83 Unit Director: Loreta Zelaya MD #### CPEP #### [address] [address] Unit Director: RUTH PinedaO2 [Moles/Vol]19 mmol/XTqw83-13CocsuSelect Medical Specialty Hospital - CincinnatiComment on above:Performed By: #### INSU #### [address] [address] Unit Director: Gee Royal MD [address] [place] [address] Unit Director: Loreta Zelaya MD #### CPEP #### [address] [address] Unit Director: RUTH Pinedareatinine [Mass/Vol]0.6 mg/dLNormal0.50-0.90 [facility] - CincinnatiComment on above:Performed By: #### INSU #### [address] [address] Unit Director: Gee Royal MD [address] [place] [id number] Unit Director: Loreta Zelaya MD #### CPEP #### [address] [address] Unit Director: Gee Royal MDGFR/1.73 sq M.predicted among non-blacks MDRD (S/P/Bld) [Vol rate/Area]mL/min/{1.73_m2}Normal>60[facility] Hospital - CincinnatiComment on above:Result Comment: These results are not [...] renal tubular secretion.Performed By: #### INSU #### [address] [address] Unit Director: Gee Royal MD [address] [place] [address] Unit Director: Loreta Zelaya MD #### CPEP #### [address] [address] Unit Director: Gee Royal MDGlucose [Mass/Vol]516 mg/dLCritically twcm78-85 [facility] - CincinnatiComment on above:Performed By: #### INSU #### [address] [address] Unit Director: Gee Royal MD [address] [place] [address] Unit Director: Loreta Zelaya MD #### CPEP #### [address] [address] Unit Director: Gee Royal MDPotassium [Moles/Vol]4.8 mmol/LNormal3.7-5.3 [facility] CincinnatiComment on above:Result Comment: Specimen hemolysis has exceeded the interference as defined by Kat. Value may be falsely increased. Suggest recollection if clinically indicated.Performed By: #### INSU #### [address] [address] Unit Director: Gee Royal MD [address] [place] [address] Unit Director: Loreta Zelaya MD #### CPEP #### [address] [address] Unit Director: Gee Royal MDProtein [Mass/Vol]7.2 g/dLNormal6.6-8.7Select [facility] Hospital - CincinnatiComment on above:Performed By: #### INSU #### [address] [address] Unit Director: Gee Royal MD [facility] [address] [place] [address] [place] [address] Unit Director: Loreta Zelaya MD #### CPEP #### [facility] [address] [place] [address] Unit Director: QUAN Pinedaodium [Moles/Vol]130 mmol/KYxa437-860EmjigSelect Medical Specialty Hospital - CincinnatiComtrinity health [facility] on above:Performed By: #### INSU #### [address] [address] Unit Director: Gee Royal MD [address] [place], [place] [id number] Unit Director: Loreta Zelaya MD #### CPEP #### [address] [address] Unit Director: Gee Royal MDUrea nitrogen [Mass/Vol]19 mg/dLNoal6-20[facility] Hospital - CincinnatiComment on above:Performed By: #### INSU #### [address] [address] Unit Director: Gee Royal MD [address] [place] [address] Unit Director: Loreta Zelaya MD #### CPEP #### [address] [address] Unit Director: Gee Royal MDGlucose, Whole Bloodon 08-84-3440Gtysjmj [Mass/Vol]458 mg/fUThyd64 - 100 mg/dLBon [facility] SpringfieldInterpretation and review of laboratory resultsAbnoLandmann-Jungman Memorial HospitalGlucose [Mass/Vol]458 mg/eYFuij01-542VpkvtSelect Medical Specialty Hospital - CincinnatiGlucose [Mass/Vol]506 mg/dLCritically high74 - 100 mg/dLBon [facility] Interpretation and review of laboratory resultsAbnormBon [facility] Bon [facility] SpringfieldGlucose [Mass/Vol]506 mg/dLCritically laac49-400UcmjySelect Medical Specialty Hospital - CincinnatiMagnesiumon 63-05-3870Lndruzlya [Mass/Vol]2 mg/dL1.6 - 2.6 mg/dL [facility] Hospital CenterMagnesium [Mass/Vol]2.0 mg/dLNormal1.6-2.6Mercy Hartford HospitalComment on above:Performed By: #### UOSMO #### [address] [place] [address] Unit Director: Gee Royal MD #### URNA #### [address] [place] [address] Unit Director: Loreta Zelaya MDNo Panel Informationon 07-44-9418Jkc [facility] SpringfieldTroponinon 46-77-1914Ztxruhmv I.cardiac High sensitivity method [Mass/Vol]ng/L0 - 14 ng/LBon [facility] SpringfieldComtrinity health living[facility] hospital on above:High Sensitivity Troponin values cannot be compared with other Troponin methodologies.Troponin, High Sens<7Qenmyl3-62YbzftSelect Medical Specialty Hospital - CincinnatiComtrinity health livingston hospital on above:Result Comment: High Sensitivity Troponin values cannot be compared with other Troponin methodologies.Performed By: #### UOSMO #### [address] [address] [place] [address] Unit Director: Gee Royal MD #### URNA #### [address] [place] [address] Unit Director: Loreta Zelaya MDVenous Blood Gaseson 26-12-4799Mgwtc TestNOT APPLICABLENormalSelect Medical Specialty Hospital - CincinnatiComtrinity health living[facility] hospital on above:Performed By: #### VBG #### [address] [place] [address] Unit Director: Loreta Zelaya MDSomerville Hospital Temp.37.0NormalSelect Medical Specialty Hospital - CincinnatiComment on above:Performed By: #### VBG #### [address] [place], [place] [address]83 Unit Director: Loreta Zelaya MDTIZYE225EvhrqwEyovvZanesville City HospitalComment on above: Performed By: #### VBG #### [facility] [address] [place] [address] [address] [place], [place] [id number] Unit Director: Loreta Zelaya MDHCO3 (Bld) [Moles/Vol]17.9 mmol/LLow24.0-30.0[facility] HospitalComment on above:Performed By: #### VBG #### [facility] [address] [place] [address] [place], [place] [address] Unit Director: Loreta Zelaya MDNegative Base Excess6.3 mmol/LHigh0.0-2.0[facility] Hospital - CincinnatiComment on above:Performed By: #### VBG #### [address] [place], [place] [address]783 Unit Director: Loreta Zelaya MDO2 Device/Flow/%ROOM AIRNormSt. Anthony's Hospital HospitalComment on above:Performed By: #### VBG #### [address] [place], [place] 56[address]83 Unit Director: Loreta Zelaya MDOxygen saturation in Blood83.0 %Fxvfvm61.0-85.0 [facility] Hospital - CincinnatiComment on above:Performed By: #### VBG #### [facility] [address] [place] [address] [place] [address] Unit Director: Suzy FrazierCO232.4 mm EmOun50-08Krnaa Tiffin HospitalComment on above:Performed By: #### VBG #### [facility] [address] [place] [address] [place] [address] Unit Director: SUZY Frazierco2 Adj'd for Temp.32.4 joJyJkv40.0-55.0[facility] HospitalComment on above:Performed By: #### VBG #### [facility] [address] [place] [address] [place], [place] [address]83 Unit Director: Loreta Zelaya [facility] (Bld)7.361 [pH]Normal7.32-7.42Select [facility]ty Hospital - CincinnatiComment on above:Performed By: #### VBG #### [address] [place], [place] [address]83 Unit Director: Loreta Zelaya [facility] Adjst'd for Temp.7.785Vrurfb1.320-7.420Select [facility] Specialty Hospital - CincinnatiComment on above:Performed By: #### VBG #### [address] [place] [address] Unit Director: Suzy FrazierO248.2 mm TfLitfug29.0-50.0[facility] [place] Comment on above:Performed By: #### VBG #### [address] [place] [address] Unit Director: Suzy Frazier Adj'd for Temp.48.2 nuYqPmuklp20.0-50.0[facility] Hospital - CincinnatiComment on above:Performed By: #### VBG #### [address] [place], [place] [address]83 Unit Director: JENNIFER Frazier PELVIS COMPLETE NON-OB TRANSABD/TRANSVAG W DOPPLERon 09-15-5491RF PELVIS COMPLETE NON-OB TRANSABD/TRANSVAG W DOPPLER EXAMINATION: [...] Signed by: Trino Cantor MD 12/18/24 Final resultNoGenesis HospitalI LUMBAR SPINE WO CONTRASTon 12-13-2024 MRI [...] Signed by: Chas Vásquez MD 12/13/24 Final resultNormZanesville City HospitalXR KNEE LEFT (1-2 VIEWS)on 16-17-6575AQ KNEE LEFT (1-2 VIEWS)EXAM: 2 VIEWS XRAY [...] Signed by: Emiliano Tran MD 12/10/24 Final resultNormalCleveland Clinic Union Hospital Knee - left 1 or 2 Viewson 12-10-2024 1. No acute findings. 2. Mild loss of joint space in the medial and lateral compartments compatible with degenerative change. [facility] CONSOLIDATEDEXAM: 2 VIEWS XRAY OF THE LEFT KNEE 12/08/2024 03:01:50 PM COMPARISON: None available. CLINICAL HISTORY: Acute pain of left knee. FINDINGS: BONES AND JOINTS: No acute fracture. No focal osseous lesion. No joint dislocation. No significant joint effusion. Mild loss of joint space in the medial and lateral compartments compatible with degenerative change. SOFT TISSUES: The soft tissues are unremarkable. [facility] Emiliano Carter MD - 12/10/2024 EXAM: 2 VIEWS XRAY [...] with degenerative change. [facility] Knee - left 1 or 2 ViewsOrdered By: Emiliano Tran on 32-12-2368Mri [facility] Work Phone: HIV Ag/Abon 73-90-2381BOC Ag/AbNon-ReactiveNormalPremier Health Miami Valley Hospital SouthComment on above:Result Comment: No laboratory evidence of HIV infection. If acute HIV infection is suspected, consider testing for HIV-1 RNA.Performed By: #### INSU #### [address] [address] Unit Director: Gee Royal MD [address] [place] [address]83 Unit Director: Loreta Zelaya MD #### CPEP #### [address] [address] Unit Director: Rani PinedaMaria Parham Health 81-02-8198Mvj A Ab,IgM Non-ReactiveNormPomerene HospitalComment on above:Performed By: #### INSU #### [address] [address] Unit Director: Gee Royal MD [address] [place] [address]83 Unit Director: Loreta Zelaya MD #### CPEP #### [address] [address] Unit Director: Amna Pineda Core Ab,IgMNon-ReactiveVan Wert County HospitalComment on above:Performed By: #### INSU #### [address] [address] Unit Director: Gee Royal MD [address] [place] [id number] Unit Director: Loreta Zelaya MD #### CPEP #### [address] [address] Unit Director: Amna Pineda Surf AgNon-ReactiveVan Wert County HospitalComment on above:Performed By: #### INSU #### [address] [address] Unit Director: Gee Royal MD [address] [place], [place] [id number] Unit Director: Loreta Zelaya MD #### CPEP #### [address] [address] Unit Director: Amna Pineda AbNon-ReactiveVan Wert County HospitalComment on above:Result Comment: The hepatitis C procedure [...] RNA by PCR.Performed By: #### INSU #### [address] [address] Unit Director: Gee Royal MD [address] [place] [id number] Unit Director: Loreta Zelaya MD #### CPEP #### [address] [address] Unit Director: SUZY Pinedarolactinon 54-31-6196Tuqnbzgmw1.51 ng/mLLow 4.79-23.3Mercy Hartford HospitalComment on above:Result Comment: The presence of macroprolactin may cause interference in female patients with various endocrinological diseases or during .Performed By: #### INSU #### [address] [address] Unit Director: Gee Royal MD [address] [place] [address] Unit Director: Loreta Zelaya MD #### CPEP #### [address] [address] Unit Director: Gee Royal MDT.pallidum Ab Screenon 12-09-2024T.pallidum Ab ScreenNon-ReactiveVan Wert County HospitalComment on above:Result Comment: T. pallidum antibodies are not detected. There is no serological evidence of infection with T. pallidum (early primary syphilis cannot be excluded). Retest in 2-4 weeks if syphilis is clinically suspect.Performed By: #### INSU #### [facility] [address] [place] [address] Unit Director: Gee Royal MD [facility] [address] [place] [address] Unit Director: Loreta Zelaya MD #### CPEP #### [facility] [address] [place] [address] Unit Director: Gee Royal MDUS THYROIDon 91-55-3618JS THYROIDEXAMINATION: THYROID ULTRASOUND 12/08/2024 COMPARISON: None. TECHNIQUE: Real-time and color flow sonographic images were obtained using a linear transducer. [id number]. HISTORY: F 49 y/o old. ORDERING SYSTEM [...] (2) 2. Echogenicity: Isoechoic (1) 3. Shape: Yruio-nmyy-ziwn (0) 4. Margins: Ill-defined (0) 5. Echogenic [...] by: Brandt Kirk DO 12/08/24 Final resultNormalMercy Silver Hill Hospital Thyroid glandon . 16 mm TI- RADS [...] more than four nodules should be followed. [facility] RIS CONSOLIDATEDEXAMINATION: THYROID ULTRASOUND 12/08/2024 COMPARISON: None. TECHNIQUE: Real-time and color flow sonographic images were obtained using a linear transducer. [id number]. HISTORY: F 49 y/o old. ORDERING SYSTEM [...] (2) 2. Echogenicity: Isoechoic (1) 3. Shape: Jcsuy-lmwt-duku (0) 4. Margins: Ill-defined (0) 5. Echogenic foci: None (0) ACR TI-RADS total points: 3 ACR TI-RADS risk category: TR3 Soft tissues: No visualized lymphadenopathy PN Brandt Moody, DO - 12/08/2024 EXAMINATION: THYROID ULTRASOUND 12/08/2024 COMPARISON: None. TECHNIQUE: Real-time and color flow sonographic images were obtained using a linear transducer. [id number]. HISTORY: F 49 y/o old. ORDERING SYSTEM [...] (2) 2. Echogenicity: Isoechoic (1) 3. Shape: Wjkfi-fjop-lncw (0) 4. Margins: Ill-defined (0) 5. Echogenic [...] more than four nodules should be followed. [facility] Study observation (narrative)[employer] Thyroid glandOrdered By: Brandt Kirk on 02-53-9930[employer] Work Phone: xr Knee - left 1 or 2 Viewson 54-80-4440Hyhbfbnxy Study observation (narrative)[facility] IonicsCHLAMYDIA/GC BY PCR IMELDA SWABon 40-50-7686JYHPDZVXK/GC BY PCR IMELDA SWABCHLAMYDIA DNA(PCR) Negative Chlamydia trachomatis not detected by nucleic acid amplification. This does not exclude the possibility of infection because results are dependent on adequate specimen collection. GONORRHOEAE DNA(PCR) Negative Neisseria gonorrhoeae not detected by nucleic acid amplification. This does not exclude the possibility of infection because results are dependent on adequate specimen collection.[facility] Ambulatory PPGComment on above: Performed By: #### CGS #### [facility] ([facility]) [address] [place] [address] VIRVAGINITIS PANEL PCRon 60-03-5069EFIQGZXHD PANEL PCRBACT. VAGINOSIS DNA Not Detected Qualitative [...] accordance with clinical presentation to determine patient diagnosis.NormalFostoria City Hospital Ambulatory PPGComment on above:Performed By: #### VPPCR #### [facility] ([facility]) [address] [place] [address] VIRAlbumin/Creat Ratio, Urineon 50-06-9750Utdebgh,conc.Milton U <98Ftqfsm6-52XrhftManchester Memorial HospitalComment on above:Performed By: #### CDP #### [address] [place] [address] Unit Director: Loreta Zelaya, MDAlbumin/Creat RatioCan not be calculatedNormal 0.0-25.0[facility] HospitalComment on above:Performed By: #### CDP #### [address] [place] [address] Unit Director: Loreta Zelaya MDCreatinine Conc.15.9 mg/dLLow28.0-217.0[facility] Hospital - CincinnatiComment on above:Result Comment: Reference range defined for 1st morning urinePerformed By: #### CDP #### [address] [place] [address] Unit Director: Loreta Zelaya MDAlbumin/Creatinine Ratio, Urineon 11-14-2024 Albumin DL <= 20 mg/L (U) [Mass/Vol]mg/L0 - 20 mg/LBon [facility] Albumin/Creatinine DL <= 20 mg/L (U) [Ratio]Can not be calculatedBon [facility] SpringfieldCreatinine (U) [Mass/Vol]15.9 mg/dLLow28.0 - 217.0 mg/dLBon [facility] SpringfieldComment on above:Reference range defined for 1st morning urine Interpretation and review of laboratory resultsAbnormalBon [facility] Peace HospitalCBC with Auto Differentialon 60-69-5265Wyzikqdep (Bld) [#/Vol]0.03 10*3/uLBon [facility] SpringfieldBasophils/100 WBC (Bld)1 %0 - 2 %[facility] CenterEosinophils (Bld) [#/Vol]0.08 10*3/uLBon [facility] SpringfieldEosinophils/100 WBC (Bld)2 %1 - 4 %[facility] CenterErythrocyte distribution width (RBC) [Ratio]11.9 %11.8 - 14.4 %[facility] Hematocrit (Bld) [Volume fraction]41.4 %36.3 - 47.1 %[facility] Hemoglobin (Bld) [Mass/Vol]13.7 g/dL11.9 - 15.1 g/dLBon [facility] Immature granulocytes (Bld) [#/Vol][facility] CenterImmature granulocytes/100 WBC (Bld)0 %0Bon [facility] SpringfieldLymphocytes/100 WBC (Bld) 29 %24 - 43 %[facility] CenterLymphocytes/100 WBC (Bld)1.41 %[facility] HospitalH (RBC) [Entitic mass]32.7 pg25.2 - 33.5 pgBon [facility]cy HospitalHC (RBC) [Mass/Vol]33.1 g/dL28.4 - 34.8 g/dLBon Mercy HospitalV (RBC) [Entitic vol]98.8 fL82.6 - 102.9 fLVirginia Hospital CenterMonocytes/100 WBC (Bld)6 %3 - 12 %[facility] CenterMonocytes/100 WBC (Bld)0.31 %[facility] CenterNeutrophils/100 WBC (Bld)62 %36 - 65 %[facility] CenterNucleated RBC/100 WBC (Bld) [Ratio]0 %0.0 per 100 WBCVirginia Hospital CenterPlatelet mean volume (Bld) [Entitic vol]9.8 fL8.1 - 13.5 fLVirginia Hospital CenterPlatelets (Bld) [#/Vol]335 10*3/uLBon [facility] SpringfieldRBC (Bld) [#/Vol]4.19 10*6/uL3.95 - 5.11 m/uLVirginia Hospital CenterSegmented neutrophils/100 WBC (Bld)3 %Bon [facility] SpringfieldWBC other (Bld) [#/Vol]4.9 [facility] HospitalCB with Diffon [id number]. Basophil0.03 k/uLNormal0.00-0.20[facility] HospitalComment on above:Performed By: #### CDP #### [address] [place] [address]83 Unit Director: MDAbs. KarinImm.Granulocyte<0.46Fplbyo2.00-0.30MerBarnesville Hospital HospitalComment on above:Performed By: #### CDP #### [address] [place] [address]83 Unit Director: MDAbs. KarinNeutrophil (Seg)3.00 k/uLNormal1.50-8.10MerBarnesville Hospital HospitalComment on above:Performed By: #### CDP #### [address] [place] [address] Unit Director: Loreta Zelaya MDBasophils/100 WBC (Bld)1 %Normal0-2[facility] HospitalComment on above:Performed By: #### CDP #### [address] [place] [address] Unit Director: Loreta Zelaya MDEosinophils (Bld) [#/Vol]0.08 10*3/uLNormal 0.00-0.44MerBarnesville Hospital HospitalComment on above:Performed By: #### CDP #### [address] [place], [place] [address]83 Unit Director: Loreta Zelaya MDEosinophils/100 WBC (Bld)2 %Normal1-4[facility] Hospital - CincinnatiComment on above:Performed By: #### CDP #### [address] [place] [address] Unit Director: Loreta Zelaya MDErythrocyte distribution width (RBC) [Ratio]11.9 % Kvwocm86.8-14.4[facility] HospitalComment on above:Performed By: #### CDP #### [address] [place] [address] Unit Director: Loreta Zelaya MDHematocrit (Bld) [Volume fraction]41.4 %Normal 36.3-47.1MSumma Health [facility] Campus HospitalComment on above:Performed By: #### CDP #### [address] [place], [place] [address] Unit Director: Loreta Zelaya MDHemoglobin (Bld) [Mass/Vol]13.7 g/dLNormal 11.9-15.1MSumma Health [facility] Campus HospitalComment on above:Performed By: #### CDP #### [address] [place], [place] [address] Unit Director: Loreta Zelaya MDImmature granulocytes/100 WBC (Bld)0 %Ftunvg0Vhkpm Tiffin HospitalComment on above:Performed By: #### CDP #### [address] [place], [facility] Unit Director: Loreta Zelaya MDLymphocytes (Bld) [#/Vol]1.41 10*3/uLNormal 1.10-3.70[facility] HospitalComment on above:Performed By: #### CDP #### [address] [place], [facility]83 Unit Director: Loreta Zelaya MDLymphocytes/100 WBC (Bld)29 %Kjpehm12-34NgsgfSelect Medical Specialty Hospital - CincinnatiComment on above:Performed By: #### CDP #### [address] [place], [place] [address]883 Unit Director: MIGUELINA FrazierCH (RBC) [Entitic mass]32.7 jeMzsugz55.2-33.[address] HospitalComment on above:Performed By: #### CDP #### [address] [place] [address] Unit Director: MIGUELINA FrazierCHC (RBC) [Mass/Vol]33.1 g/zALzzwuu90.4-34.8[facility] - CincinnatiComment on above:Performed By: #### CDP #### [address] [place] [address] Unit Director: MIGUELINA FrazierCV (RBC) [Entitic vol]98.8 gQWgpbbx20.6-102.9 [facility] - CincinnatiComment on above:Performed By: #### CDP #### [address] [place] [address] Unit Director: MIGUELINA Frazieronocytes (Bld) [#/Vol]0.31 10*3/uLNormal0.10-1.20 [facility] - CincinnatiComment on above:Performed By: #### CDP #### [address] [place] [address] Unit Director: MIGUELINA Frazieronocytes/100 WBC (Bld)6 %Normal3-12[facility] - CincinnatiComment on above:Performed By: #### CDP #### [address] [place], [place] [address]83 Unit Director: Loreta Zelaya MDNeutrophil (Seg)62 %Dfmtkp83-69Vmjty [facility] HospitalComment on above:Performed By: #### CDP #### [facility] [address] [place] [address] Unit Director: TYREL Frazier Automated0.0 per [address] [facility] [address] HospitalComment on above:Performed By: #### CDP #### [facility] [address] [place] [address] Unit Director: Helena Frazier mean volume (Bld) [Entitic vol]9.8 fL Normal8.1-13.5[facility] HospitalComment on above:Performed By: #### CDP #### [address] [place] [address] Unit Director: Luna Frazier (Bld) [#/Vol]335 10*3/xOKcnxub123-[address] HospitalComment on above:Performed By: #### CDP #### [address] [place] [address] Unit Director: SARA Frazier (Bld) [#/Vol]4.19 10*6/uLNormal3.95-5.11[facility] Hospitalcy [facility] HospitalComment on above:Performed By: #### CDP #### [address] [place] [address] Unit Director: TSERING Frazier (Bld) [#/Vol]4.9 10*3/uLNormal3.5-11.3[facility] HospitalComment on above:Performed By: #### CDP #### [address] [place] [address] Unit Director: RUTH Frazierkane county human resource ssd Metabolic Profon 83-76-4424Cdpgkvi [Mass/Vol] 4.4 g/dLNormal3.5-5.2[facility] HospitalComment on above:Performed By: #### VBG #### [address] [place] [address] Unit Director: Loreta Zelaya MDAlbumin/Glob Ratio1.4Ypjgtt5.0-2.5MerBarnesville Hospital HospitalComment on above:Performed By: #### VBG #### [address] [place] [address] Unit Director: Bill Frazierkaline Jrlb758 U/HClzt88-253Azvxu Tiffin HospitalComment on above:Performed By: #### VBG #### [address] [place] [address] Unit Director: Loreta Zelaya MDALT [Catalytic activity/Vol]24 U/GHtqekf44-27Cuhwh Tiffin HospitalComment on above:Performed By: #### VBG #### [address] [place] [address] Unit Director: Loreta Zelaya MDAnion gap [Moles/Vol]13 mmol/LNormal9-16[facility] HospitalComment on above:Performed By: #### VBG #### [address] [place] [address] Unit Director: Loreta Zelaya MDAST [Catalytic activity/Vol]18 U/POnjaot17-82Xuxah [facility]iffin HospitalComment on above:Performed By: #### VBG #### [facility] [address] [place] [address] [place] [address] Unit Director: Loreta Zelaya MDBilirubin [Mass/Vol]mg/dLNormal0.00-1.20MerBarnesville Hospital HospitalComment on above:Performed By: #### VBG #### [address] [place] [address] Unit Director: Loreta Zelaya MDBUN/CRE Zpobd83Xccy2-13OmohrSelect Medical Specialty Hospital - [place] Comment on above:Performed By: #### VBG #### [facility] [address] [place] [address] [place], [place] [id number] Unit Director: RUTH Frazieralcium [Mass/Vol]9.4 mg/dLNormal8.6-10.4[facility] - CincinnatiComment on above:Performed By: #### VBG #### [facility] [address] [place] [address] [place] [address] Unit Director: RUTH Frazierhloride [Moles/Vol]95 mmol/AZvb00-423BcjwySelect Medical Specialty Hospital - CincinnatiComment on above:Performed By: #### VBG #### [address] [place] [address] Unit Director: RUTH FrazierO2 [Moles/Vol]25 mmol/UVxnogp66-78AczfnManchester Memorial HospitalComment on above:Performed By: #### VBG #### [address] [place], [place] 128[address]83 Unit Director: RUTH Frazierreatinine [Mass/Vol]0.6 mg/dLNormal0.50-0.90[facility] - CincinnatiComment on above:Performed By: #### VBG #### [address] [place], [place] [address]83 Unit Director: Loreta Zelaya MDGFR/1.73 sq M.predicted among non-blacks MDRD (S/P/Bld) [Vol rate/Area]mL/min/{1.73_m2}Normal>60[facility] Hospital - CincinnatiComment on above:Result Comment: These results are not [...] renal tubular secretion.Performed By: #### VBG #### [address] [place], [place] [address]83 Unit Director: Loreta Zelaya MDGlucose [Mass/Vol]605 mg/dLCritically nqxo17-00 [facility] - CincinnatiComment on above:Performed By: #### VBG #### [address] [place] [address] Unit Director: SUZY Frazierotassium [Moles/Vol]4.7 mmol/LNormal3.7-5.3MPremier Health Miami Valley HospitalComment on above:Result Comment: Specimen hemolysis has exceeded the interference as defined by Kat. Value may be falsely increased. Suggest recollection if clinically indicated.Performed By: #### VBG #### [address] [place] [address] Unit Director: SUZY Frazierrotein [Mass/Vol]7.1 g/dLNormal6.6-8.7[facility] - CincinnatiComment on above:Performed By: #### VBG #### [address] [place] [address] Unit Director: Loreta Zelaya MDSodium [Moles/Vol]133 mmol/GOsy149-920HmaolSelect Medical Specialty Hospital - CincinnatiComment on above:Performed By: #### VBG #### [address] [place] [address] Unit Director: Loreta Zelaya MDUrea nitrogen [Mass/Vol]21 mg/dLHigh6-20Select Medical Specialty Hospital - CincinnatiComment on above:Performed By: #### VBG #### [address] [place], [place] [address]83 Unit Director: RUTH Frazieromprehensive Metabolic Panelon 46-97-1953Yckxbel [Mass/Vol]4.4 g/dL3.5 - 5.2 g/dLBon Matter and FormAlbumin/Globulin [Mass ratio]1.6 {ratio}1.0 - 2.5Bon [facility] ThermogenicsALP [Catalytic activity/Vol] 224 U/LHigh35 - 104 U/LBon [facility] ThermogenicsALT [Catalytic activity/Vol]24 U/L10 - 35 U/LBon [facility] ThermogenicsAnion gap [Moles/Vol]13 mmol/L9 - 16 mmol/LBon [facility] Stamp.it HealthAST [Catalytic activity/Vol]18 U/L10 - 35 U/LBon [facility] ThermogenicsBilirubin [Mass/Vol]mg/dL0.00 - 1.20 mg/dLBon [facility] ThermogenicsCalcium [Mass/Vol]9.4 mg/dL8.6 - 10.4 mg/dLBon [facility] [employer]ogenics Chloride [Moles/Vol]95 mmol/LLow98 - 107 mmol/LBon [facility] ThermogenicsCO2 [Moles/Vol]25 mmol/L20 - 31 mmol/LBon [facility] ThermogenicsCreatinine [Mass/Vol] 0.6 mg/dL0.50 - 0.90 mg/dLBon [facility] CenterCitizen SportsEst, Glom Filt Rate- PINFBon [facility] CenterCitizen SportsComment on above: These results are not intended [...] Glucose [Mass/Vol]605 mg/dLCritically high74 - 99 mg/dLBon Matter and Form Interpretation and review of laboratory resultsAbnormalBon [facility] CenterCitizen Sports Potassium [Moles/Vol]4.7 mmol/L3.7 - 5.3 mmol/LBon [facility] CenterCitizen SportsComment on above:Specimen hemolysis has exceeded the interference as defined by Kat. Value may be falsely increased. Suggest recollection if clinically indicated. Protein [Mass/Vol]7.1 g/dL6.6 - 8.7 g/dLBon [facility] SpringfieldSodium [Moles/Vol]133 mmol/GMln620 - 145 mmol/LBon [facility] SpringfieldUrea nitrogen [Mass/Vol]21 mg/dLHigh6 - 20 mg/dLBon [facility] SpringfieldUrea nitrogen/Creatinine [Mass ratio]35 mg/mgHigh9 - 20Bon [facility] SpringfieldBon [facility] SpringfieldC-Peptideon 67-91-0020Q-Peptide0.2 ng/mLLow1.1-4.4Select Medical Specialty Hospital - CincinnatiComment on above:Performed By: #### INSU #### [employer] [address] [place], [place] [id number] Unit Director: Gee Royal MD [facility] [address] [place] [address] [place] [address] Unit Director: Loreta Zelaya MD #### CPEP #### [facility] [employer] [address] [place], [place] [id number] Unit Director: Gee Royal [facility] – TULSABC auto differentialon [id number] (Bld) [#/Vol]0.04 10*3/uLBon [facility] Centerours [facility] Orthopedic CenterBasophils/100 WBC (Bld)1 %0 - 2 %[facility] CenterEosinophils (Bld) [#/Vol]0.1 10*3/uLBon Secours [facility] Orthopedic CenterEosinophils/100 WBC (Bld)2 %1 - 4 %[facility] CenterErythrocyte distribution width (RBC) [Ratio]13.6 %11.8 - 14.4 %[facility] Hematocrit (Bld) [Volume fraction]36.9 %36.3 - 47.1 %[facility] Hemoglobin (Bld) [Mass/Vol]11.8 g/dLLow11.9 - 15.1 g/dLBon [facility] Immature granulocytes (Bld) [#/Vol]Bon [facility] SpringfieldImmature granulocytes/100 WBC (Bld)1 %Mjcy9Slp [facility] SpringfieldInterpretation and review of laboratory resultsAbnormalBon [facility] SpringfieldLymphocytes/100 WBC (Bld)39 %24 - 43 %[facility] CenterLymphocytes/100 WBC (Bld)1.62 %[facility] HospitalH (RBC) [Entitic mass]33.1 pg25.2 - 33.5 pgMary Washington HospitalHC (RBC) [Mass/Vol]32 g/dL28.4 - 34.8 g/dLBon [facility] MCV (RBC) [Entitic vol]103.4 pCIlcq50.6 - 102.9 fLVirginia Hospital Center Monocytes/100 WBC (Bld)11 %3 - 12 %[facility] CenterMonocytes/100 WBC (Bld)0.47 %[facility] CenterNeutrophils/100 WBC (Bld)46 %36 - 65 %[facility] CenterNucleated RBC/100 WBC (Bld) [Ratio]0 %0.0 per 100 WBCVirginia Hospital CenterPlatelet mean volume (Bld) [Entitic vol]10 fL8.1 - 13.5 fL [facility] CenterPlatelets (Bld) [#/Vol]256 10*3/uLBon [facility] SpringfieldRBC (Bld) [#/Vol]3.57 10*6/uLLow3.95 - 5.11 m/[facility] Segmented neutrophils/100 WBC (Bld)1.91 %[facility] CenterWBC other (Bld) [#/Vol]4.2Bon [facility] CenterCBC with Diffon 97-03-0334Lkg. Basophil0.04 k/uLNormal0.00-0.20Select Medical Specialty Hospital - CincinnatiComment on above:Performed By: #### UAMIC #### [facility] [address] [place] [address] [place] [address] Unit Director: Marie Frazier.Imm.Granulocyte<0.30Bwucfd9.00-0.30Select Medical Specialty Hospital - CincinnatiComment on above:Performed By: #### UAMIC #### [facility] [address] [place] [address] Unit Director: Marie Frazier.Neutrophil (Seg)1.91 k/uLNormal1.50-8.10Select Medical Specialty Hospital - CincinnatiComment on above:Performed By: #### UAMIC #### [address] [place], [place] [id number] Unit Director: Loreta Zelaya MDBasophils/100 WBC (Bld)1 %Normal0-2MSumma Health Akron Campus HospitalComment on above:Performed By: #### UAMIC #### [address] [place] [address] Unit Director: Loreta Zelaya MDEosinophils (Bld) [#/Vol]0.10 10*3/uLNormal 0.00-0.44Select Medical Specialty Hospital - CincinnatiComment on above:Performed By: #### UAMIC #### [address] [place], [facility]83 Unit Director: FARIBA Frazierosinophils/100 WBC (Bld)2 %Normal1-4[facility] HospitalComment on above:Performed By: #### UAMIC #### [address] [place] [id number] Unit Director: Loreta Zelaya MDErythrocyte distribution width (RBC) [Ratio]13.6 % Xltrvc42.8-14.4Select Medical Specialty Hospital - CincinnatiComment on above:Performed By: #### UAMIC #### [address] [place], [facility]83 Unit Director: Loreta Zelaya MDHematocrit (Bld) [Volume fraction]36.9 %Normal 36.3-47.1MSumma Health Akron Campus HospitalComment on above:Performed By: #### UAMIC #### [address] [place], [place] [address]83 Unit Director: Loreta Zelaya MDHemoglobin (Bld) [Mass/Vol]11.8 g/dLLow11.9-15.1 [facility] Hospital - CincinnatiComment on above:Performed By: #### UAMIC #### [address] [place], [place] [address]83 Unit Director: Loreta Zelaya MDImmature granulocytes/100 WBC (Bld)1 %Plrm7ZbwqsMercy Health St. Rita'S Medical Center HospitalComment on above:Performed By: #### UAMIC #### [address] [place] [address] Unit Director: Loreta Zelaya MDLymphocytes (Bld) [#/Vol]1.62 10*3/uLNormal 1.10-3.70[facility] HospitalComment on above:Performed By: #### UAMIC #### [address] [place], [place] [address]83 Unit Director: Luciana Fraziermphocytes/100 WBC (Bld)39 %Imwbvj95-03JbecjSelect Medical Specialty Hospital - CincinnatiComment on above:Performed By: #### UAMIC #### [address] [place], [place] [address]83 Unit Director: MIGUELINA FrazierCH (RBC) [Entitic mass]33.1 ftGuzbyi00.2-33.5 [facility] Specialty Hospital - CincinnatiComment on above:Performed By: #### UAMIC #### [address] [place], [place] [id number] Unit Director: MIGUELINA FrazierCHC (RBC) [Mass/Vol]32.0 g/nICaiktl51.4-34.8[facility] HospitalComment on above:Performed By: #### UAMIC #### [address] [place] [address] Unit Director: MIGUELINA FrazierCV (RBC) [Entitic vol]103.4 rZSuro36.6-102.9[facility] Tabiona HospitalComment on above:Performed By: #### UAMIC #### [address] [place] [address] Unit Director: MIGUELINA Frazieronocytes (Bld) [#/Vol]0.47 10*3/uLNormal0.10-1.20 [facility] Hospital - CincinnatiComment on above:Performed By: #### UAMIC #### [address] [place] [address] Unit Director: MIGUELINA Frazieronocytes/100 WBC (Bld)11 %Normal3-12Select Medical Specialty Hospital - CincinnatiComment on above:Performed By: #### UAMIC #### [address] [place] [address] Unit Director: Se Frazierutrophil (Seg)46 %Amtdqu48-70Hwbyx [facility]iffin HospitalComment on above:Performed By: #### UAMIC #### [address] [place] [address] Unit Director: Loreta Zelaya MDNRBC Automated0.0 per 100 WBCNormal0.0Select Medical Specialty Hospital - CincinnatiComment on above:Performed By: #### UAMIC #### [address] [place] [address] Unit Director: Helena Frazier mean volume (Bld) [Entitic vol]10.0 fL Normal8.1-13.5Select [facility] Specialty Hospital - CincinnatiComment on above:Performed By: #### UAMIC #### [address] [place], [place] [address]17883 Unit Director: Jamel Fraziertelets (Bld) [#/Vol]256 10*3/nGFjhwoc404-962 [facility] Hospital - CincinnatiComment on above:Performed By: #### UAMIC #### [address] [place] [address] Unit Director: SARA Frazier ([facility]) [#/Vol]3.57 10*6/uLLow3.95-5.11[facility] HospitalComment on above:Performed By: #### UAMIC #### [address] [place], [place] 4553883 Unit Director: TSERING Frazier ([facility]) [#/Vol]4.2 10*3/uLNormal3.5-11.3Mparkview healthy Tabiona HospitalComment on above:Performed By: #### UAMIC #### [address] [place], [place] [address] Unit Director: RUTH Frazieromp Metabolic Pr/rfx MGon 54-77-0015Bakngsa [Mass/Vol]2.9 g/dLLow3.5-5.2MSumma Health Akron Campus HospitalComment on above:Performed By: #### UAMIC #### [address] [place] [address] Unit Director: Loreta Zelaya MDAlbumin/Glob Ratio1.5Zkdllk7.0-2.5Select [facility] Hospital - CincinnatiComment on above:Performed By: #### UAMIC #### [address] [place], [facility]83 Unit Director: Kumar Frazierline Phos82 U/AItkwob50-914KlzihSelect Medical Specialty Hospital - CincinnatiComment on above:Performed By: #### UAMIC #### [facility] [address] [place] [address] [place] [place], [place] [id number] Unit Director: Loreta Zelaya MDALT [Catalytic activity/Vol]37 U/XRkzt95-56FamuxSelect Medical Specialty Hospital - CincinnatiComment on above:Performed By: #### UAMIC #### [address] [place], [place] [address] Unit Director: Loreta Zelaya MDAnion gap [Moles/Vol]8 mmol/LLow9-16Select [facility] Hospital - CincinnatiComment on above:Performed By: #### UAMIC #### [address] [place], [place] [address]83 Unit Director: Loreta Zelaya MDAST [Catalytic activity/Vol]44 U/DYqdl35-39YosczSelect Medical Specialty Hospital - CincinnatiComment on above:Performed By: #### UAMIC #### [address] [place], [place] [address] Unit Director: Loreta Zelaya MDBilirubin [Mass/Vol]mg/dLNormal0.00-1.20[facility] Hospital - CincinnatiComment on above:Performed By: #### UAMIC #### [address] [place], [place] [address]137283 Unit Director: Loreta Zelaya MDBUN/CRE Xysag72Mnzd2-03LcnqtSelect Medical Specialty Hospital - Cincinnati Comment on above:Performed By: #### UAMIC #### [address] [place], [place] [address]80283 Unit Director: Loreta Zelaya MDCalcium [Mass/Vol]8.3 mg/dLLow8.6-10.4Select [facility] Hospital - CincinnatiComment on above:Performed By: #### UAMIC #### [facility] [address] [place] [address] [place], [place] 9554383 Unit Director: Loreta Zelaya MDChloride [Moles/Vol]104 mmol/HHcqgbl31-255FrurkSelect Medical Specialty Hospital - CincinnatiComment on above:Performed By: #### UAMIC #### [address] [place], [place] [address]83 Unit Director: Loreta Zelaya MDCO2 [Moles/Vol]27 mmol/JNtvwpa77-02CtdaxSelect Medical Specialty Hospital - CincinnatiComment on above:Performed By: #### UAMIC #### [address] [place] [address] Unit Director: RUTH Frazierreatinine [Mass/Vol]0.4 mg/dLLow0.50-0.90Select Medical Specialty Hospital - CincinnatiComment on above:Performed By: #### UAMIC #### [address] [place] [address] Unit Director: Loreta Zelaya MDGFR/1.73 sq M.predicted among non-blacks MDRD (S/P/Bld) [Vol rate/Area]mL/min/{1.73_m2}Normal>60Select Medical Specialty Hospital - CincinnatiComment on above:Result Comment: These results are not [...] renal tubular secretion.Performed By: #### UAMIC #### [address] [place] [address] Unit Director: Loreta Zelaya MDGlucose [Mass/Vol]98 mg/eLUimavm48-74Zsmji Hartford HospitalComment on above:Performed By: #### UAMIC #### [address] [place] [address] Unit Director: SUZY Frazierotassium [Moles/Vol]4.0 mmol/LNormal3.7-5.3MSumma Health Akron Campus HospitalComment on above:Performed By: #### UAMIC #### [address] [place] [address] Unit Director: Loreta Zelaya MDProtein [Mass/Vol]4.7 g/dLLow6.6-8.7[facility] HospitalComment on above:Performed By: #### UAMIC #### [place] [address] [place] [address] Unit Director: QUAN Frazierodium [Moles/Vol]139 mmol/BTrymya200-840BqcvhSelect Medical Specialty Hospital - CincinnatiComment on above:Performed By: #### UAMIC #### [facility] [address] [place] [address] Unit Director: Loreta Zelaya MDUrea nitrogen [Mass/Vol]15 mg/dLNormal6-20[facility] Hospital - CincinnatiComment on above:Performed By: #### UAMIC #### [facility] [address] [place] [address] Unit Director: RUTH Frazieromprehensive Metabolic Panel w/ Reflex to MGon 86-46-2834Ekwnnyd [Mass/Vol]2.9 g/dLLow3.5 - 5.2 g/dLBon [facility] Albumin/Globulin [Mass ratio]1.7 {ratio}1.0 - 2.5Bon [facility] SpringfieldALP [Catalytic activity/Vol]82 U/L35 - 104 U/LBon [facility] SpringfieldALT [Catalytic activity/Vol]37 U/LHigh10 - 35 U/LBon [facility] SpringfieldAnion gap [Moles/Vol] 8 mmol/LLow9 - 16 mmol/LBon [facility] SpringfieldAST [Catalytic activity/Vol]44 U/LHigh10 - 35 U/LBon [facility] SpringfieldBilirubin [Mass/Vol]mg/dL0.00 - 1.20 mg/dLBon [facility] SpringfieldCalcium [Mass/Vol]8.3 mg/dLLow8.6 - 10.4 mg/dLBon [facility] SpringfieldChloride [Moles/Vol]104 mmol/L98 - 107 mmol/LBon [facility] SpringfieldCO2 [Moles/Vol]27 mmol/L20 - 31 mmol/LBon [facility] Creatinine [Mass/Vol]0.4 mg/dLLow0.50 - 0.90 mg/dLBon [facility] SpringfieldEst, Glom Filt Rate- PINFBon [facility] on above: These results are [...] secretion. Glucose [Mass/Vol]98 mg/dL74 - 99 mg/dLBon [facility] SpringfieldInterpretation and review of laboratory resultsAbnormBon Secours Richmond Community HospitalPotassium [Moles/Vol]4 mmol/L3.7 - 5.3 mmol/LBon [facility] SpringfieldProtein [Mass/Vol]4.7 g/dLLow6.6 - 8.7 g/dLBon [facility] SpringfieldSodium [Moles/Vol]139 mmol/L136 - 145 mmol/LBon [facility] SpringfieldUrea nitrogen [Mass/Vol]15 mg/dL6 - 20 mg/dL [facility] CenterUrea nitrogen/Creatinine [Mass ratio]38 mg/mgHigh9 - 20 [facility] HospitalEKG Rhythm Stripon 10-18-2024 [facility] LABVirginia Hospital CenterGlucose, Whole Bloodon 36-06-5823Lidtujv [Mass/Vol]230 mg/rCDcuh59 - 100 mg/dLBon [facility] Interpretation and review of laboratory resultsAbnoSanford USD Medical CenterGlucose [Mass/Vol]230 mg/fOSihq76-433CgvsdSelect Medical Specialty Hospital - CincinnatiGlucose [Mass/Vol]99 mg/dL74 - 100 mg/dLBon [facility] CenterGlucose [Mass/Vol]99 mg/rJBlynny41-788KplafSelect Medical Specialty Hospital - Cincinnati Insulinon 29-37-0978Yjygcgs5.1 mU/LNChillicothe Hospital on above: Performed By: #### INSU #### [facility] [employer] [address] [place] [address] Unit Director: Gee Royal MD [facility] [address] [place] [id number] Unit Director: Loreta Zelaya MD #### CPEP #### [address] [address] Unit Director: Milka Pineda [facility] Comment on above:Result Comment: Fastin.6-24.9 30 min: 20-112 60 min: 29-88 90 min: 26-84 120 min: 22-79Performed By: #### INSU #### [address] [address] Unit Director: Gee Royal MD [address] [place] [address] Unit Director: Loreta Zelaya MD #### CPEP #### [address] [address] Unit Director: RUTH Pineda[address] Comment on above:Performed By: #### INSU #### [address] [address] Unit Director: Gee Royal MD [address] [place] [address] Unit Director: Loreta Zelaya MD #### CPEP #### [address] [address] Unit Director: Gee Royal MDTSHoaayush 47-52-4466SNG Qn3.09 m[IU]/LBon [facility] SpringfieldBon [facility] SpringfieldThyroid Stim. Horm.on 38-03-6905Rrsllsw Stim. Horm.3.09 uIU/mLNormal0.27-4.20[facility] Hospital - CincinnatiComment on above: Performed By: #### UAMIC #### [address] [place] [address] Unit Director: Loreta Zelaya MDThyroxine, Freeon 02-43-5499Nbhtjhhxg, Free0.9 ng/dLLow0.92-1.68[facility] Hospital - CincinnatiComment on above:Performed By: #### UAMIC #### [facility] [address] [place] [address] [place], [place] 2479783 Unit Director: Loreta Zelaya, MDAlbumin/Creat Ratio, Urineon 10-17-2024 Albumin,conc.Milton U<65Opclxb3-39WylmjSelect Medical Specialty Hospital - CincinnatiComtrinity health [facility] on above:Performed By: #### UAMIC #### [address] [place], [place] 1548783 Unit Director: Loreta Zelaya, MDAlbumin/Creat RatioCan not be calculatedNormal 0.0-25.0[facility] Hospital - CincinnatiComment on above:Performed By: #### UAMIC #### [address] [place], [place] 8748383 Unit Director: Loreta Zelaya, MDCreatinine Conc.46.7 mg/iWByxbyn65.0-217.0[facility] Hospital - CincinnatiComtrinity health livingston hospital on above:Result Comment: Reference range defined for 1st morning urinePerformed By: #### UAMIC #### [address] [place], [place] [address]794183 Unit Director: Loreta Zelaya MDAlbumin/Creatinine Ratio, Urineon 10-17-2024 Albumin DL <= 20 mg/L (U) [Mass/Vol]mg/L0 - 20 mg/LBon [facility] Albumin/Creatinine DL <= 20 mg/L (U) [Ratio]Can not be calculatedBon [facility] SpringfieldCreatinine (U) [Mass/Vol]46.7 mg/dL28.0 - 217.0 mg/dLBon [facility] SpringfieldComtrinity health [facility] on above:Reference range defined for 1st morning urineBon [facility] SpringfieldCBC auto differentialon 77-00-6673Nokbvyqma (Bld) [#/Vol] 0.04 10*3/uLBon [facility] SpringfieldBasophils/100 WBC (Bld)1 %0 - 2 %[facility] CenterEosinophils (Bld) [#/Vol]0.11 10*3/uLBon [facility] Eosinophils/100 WBC (Bld)3 %1 - 4 %[facility] CenterErythrocyte distribution width (RBC) [Ratio]13.5 %11.8 - 14.4 %[facility] Hematocrit (Bld) [Volume fraction]34.7 %Low36.3 - 47.1 %[facility] Hemoglobin (Bld) [Mass/Vol]11.3 g/dLLow11.9 - 15.1 g/dLBon [facility] Immature granulocytes (Bld) [#/Vol][facility] CenterImmature granulocytes/100 WBC (Bld)1 %Mshm6RkzVirginia Hospital CenterInterpretation and review of laboratory resultsAbnormalVirginia Hospital CenterLymphocytes/100 WBC (Bld)45 %High24 - 43 %[facility] CenterLymphocytes/100 WBC (Bld)1.57 %[facility] HospitalH (RBC) [Entitic mass]33 pg25.2 - 33.5 pgMary Washington HospitalHC (RBC) [Mass/Vol]32.6 g/dL28.4 - 34.8 g/dLBon Mercy HospitalV (RBC) [Entitic vol]101.5 fL82.6 - 102.9 fLVirginia Hospital Center Monocytes/100 WBC (Bld)14 %High3 - 12 %[facility] CenterMonocytes/100 WBC (Bld)0.48 %[facility] CenterNeutrophils/100 WBC (Bld)36 %36 - 65 %[facility] CenterNucleated RBC/100 WBC (Bld) [Ratio]0 %0.0 per 100 WBCVirginia Hospital CenterPlatelet mean volume (Bld) [Entitic vol]10.1 fL8.1 - 13.5 fL [facility] HealthPlatelets (Bld) [#/Vol]219 10*3/uLBon [facility] SpringfieldRBC (Bld) [#/Vol]3.42 10*6/uLLow3.95 - 5.11 m/uLBon [facility] Segmented neutrophils/100 WBC (Bld)1.26 %LowBon [facility] SpringfieldWBC other (Bld) [#/Vol]3.5Bon [facility] SpringfieldBon [facility] SpringfieldCBC with Diffon 05-93-5615Yka. Basophil0.04 k/uLNormal0.00-0.20MerBarnesville Hospital HospitalComment on above:Performed By: #### BMP #### [address] [place] [address] Unit Director: MDAbs. KarinImm.Granulocyte<0.81Drkzma6.00-0.30MerBarnesville Hospital HospitalComment on above:Performed By: #### BMP #### [address] [place] [address] Unit Director: MDAbs. KarinNeutrophil (Seg)1.26 k/uLLow1.50-8.10MerBarnesville Hospital HospitalComment on above:Performed By: #### BMP #### [address] [place] [address] Unit Director: Loreta Zelaya MDBasophils/100 WBC (Bld)1 %Normal0-2Mercy Tabiona HospitalComment on above:Performed By: #### BMP #### [address] [place] [address] Unit Director: Loreta Zelaya MDEosinophils (Bld) [#/Vol]0.11 10*3/uLNormal 0.00-0.44MerBarnesville Hospital HospitalComment on above:Performed By: #### BMP #### [address] [place] [address] Unit Director: FARIBA Frazierosinophils/100 WBC (Bld)3 %Normal1-4MerBarnesville Hospital HospitalComment on above:Performed By: #### BMP #### [address] [place], [place] 2726783 Unit Director: Loreta Zelaya MDErythrocyte distribution width (RBC) [Ratio]13.5 % Ujzzen55.8-14.4[facility] HospitalComment on above:Performed By: #### BMP #### [address] [place], [place] [address] Unit Director: Loreta Zelaya MDHematocrit (Bld) [Volume fraction]34.7 %Low 36.3-47.1MSumma Health Akron Campus HospitalComment on above:Performed By: #### BMP #### [address] [place] [address] Unit Director: Loreta Zelaya MDHemoglobin (Bld) [Mass/Vol]11.3 g/dLLow11.9-15.[address] [facility] [address] HospitalComment on above:Performed By: #### BMP #### [address] [place], [facility] Unit Director: Loreta Zelaya MDImmature granulocytes/100 WBC (Bld)1 %Cbqg8AmnajSelect Medical Specialty Hospital - CincinnatiComment on above:Performed By: #### BMP #### [address] [place], [place] [address] Unit Director: Loreta Zelaya MDLymphocytes (Bld) [#/Vol]1.57 10*3/uLNormal 1.10-3.70[facility] Hospital - CincinnatiComment on above:Performed By: #### BMP #### [address] [place] [address] Unit Director: Luciana Fraziermphocytes/100 WBC (Bld)45 %Uosg99-86Qwdsx Tiffin HospitalComment on above:Performed By: #### BMP #### [address] [place], [place] 8183383 Unit Director: MIGUELINA FrazierCH (RBC) [Entitic mass]33.0 huAgptvt05.2-33.[address] [facility] HospitalComment on above:Performed By: #### BMP #### [address] [place], [place] 8507883 Unit Director: KELLI FrazierC (RBC) [Mass/Vol]32.6 g/kHTktaqk17.4-34.8[facility] HospitalComment on above:Performed By: #### BMP #### [address] [place], [place] 6[address]5783 Unit Director: MIGUELINA FrazierCV (RBC) [Entitic vol]101.5 dTOgrkpf89.6-102.[address] [facility] [address] HospitalComment on above:Performed By: #### BMP #### [address] [place], [place] [address]83 Unit Director: MIGUELINA Frazieronocytes (Bld) [#/Vol]0.48 10*3/uLNormal0.10-1.20 [facility] Hospital - CincinnatiComment on above:Performed By: #### BMP #### [address] [place], [place] 57[address]83 Unit Director: MIGUELINA Frazieronocytes/100 WBC (Bld)14 %High3-12[facility] HospitalComment on above:Performed By: #### BMP #### [address] [place], [place] 65[address]83 Unit Director: Kandice Frazierophil (Seg)36 %Vbjume59-33Lloer [facility]iffin HospitalComment on above:Performed By: #### BMP #### [address] [place], [place] 3849283 Unit Director: TYREL Frazier Automated0.0 per 100 WBCNormal0.0[facility] - CincinnatiComment on above:Performed By: #### BMP #### [address] [place], [place] [id number] Unit Director: Jamel Fraziertegracia mean volume (Bld) [Entitic vol]10.1 fL Normal8.1-13.5[facility] - CincinnatiComment on above:Performed By: #### BMP #### [address] [place], [place] [id number] Unit Director: Jamel Fraziertezach (Bld) [#/Vol]219 10*3/lXWykazb556-[address] [address] HospitalComment on above:Performed By: #### BMP #### [address] [place] [address] Unit Director: SARA Frazier (Bld) [#/Vol]3.42 10*6/uLLow3.95-5.11[facility] HospitalComment on above:Performed By: #### BMP #### [address] [place], [place] 3572383 Unit Director: TSERING Frazier (Bld) [#/Vol]3.5 10*3/uLNormal3.5-11.3MSumma Health Akron Campus HospitalComment on above:Performed By: #### BMP #### [address] [place] [address] Unit Director: LILI FrazierA ABDOMEN PELVIS W CONTRASTon 28-89-6577JUM ABDOMEN PELVIS W CONTRASTEXAMINATION: CTA OF THE [...] by: Hosea Martinez MD 10/17/24 Final resultNormalMercy Veterans Administration Medical Center Abdominal vessels and Pelvis vessels W contrast Wesley . Unremarkable abdominopelvic arteries. No aneurysm or dissection. 2. Moderate diffuse body wall edema which may reflect anasarca. 3. Uterus appears unremarkable as visualized. 4. Probable constipation. 5. Additional findings, as above. [facility] RIS CONSOLIDATEDEXAMINATION: CTA OF THE ABDOMEN AND [...] diffuse body wall edema. No acute fracture. [facility] Hosea Ernst MD - 10/17/2024 EXAMINATION: CTA OF THE [...] Probable constipation. 5. Additional findings, as above. [facility] CenterRadiology Study observation (narrative)[facility] Hospital CenterCTA Abdominal vessels and Pelvis vessels W contrast IVOrdered By: Hosea Martinez on 12-85-6515Njq [facility] Work Phone: Comp Metabolic Pr/rfx MGon 32-30-8892Qsjyqgm [Mass/Vol]3.0 g/dLLow3.5-5.2[facility] Tabiona HospitalComment on above:Performed By: #### BMP #### [facility] [address] [place] [address] [place] [place], [place] [id number] Unit Director: Loreta Zelaya MDAlbumin/Glob Ratio1.8Bqpixo8.0-2.5MerBarnesville Hospital HospitalComment on above:Performed By: #### BMP #### [address] [place] [address] Unit Director: Kumar Frazierline Kcup584 U/NTjcjec55-072Nddmm [facility]in HospitalComment on above:Performed By: #### BMP #### [address] [place] [address] Unit Director: Loreta Zelaya MDALT [Catalytic activity/Vol]34 U/LRtwssx59-98Ctnbx [facility] HospitalComment on above:Performed By: #### BMP #### [address] [place] [address] Unit Director: Loreta Zelaya MDAnicedrick gap [Moles/Vol]8 mmol/LLow9-16[facility] HospitalComment on above:Performed By: #### BMP #### [address] [place] [address] Unit Director: Loreta Zelaya MDAST [Catalytic activity/Vol]28 U/SRwxosi50-68Agvfq [facility] HospitalComment on above:Performed By: #### BMP #### [address] [place] [address] Unit Director: Loreta Zelaya MDBilirubin [Mass/Vol]mg/dLNormal0.00-1.20[facility] HospitalComment on above:Performed By: #### BMP #### [facility] [address] [place] [address] [place] [place], [place] [id number] Unit Director: Loreta Zelaya MDBUN/CRE Fzfmu33Utej6-90SustfSelect Medical Specialty Hospital - [place] Comment on above:Performed By: #### BMP #### [facility] [address] [place] [address] [place] [place], [place] 1549783 Unit Director: RUTH Frazieralcium [Mass/Vol]8.2 mg/dLLow8.6-10.4[facility] Hospital - CincinnatiComment on above:Performed By: #### BMP #### [address] [place], [place] 5591083 Unit Director: RUTH Frazierhloride [Moles/Vol]103 mmol/NPegqdl11-026Semop [facility] HospitalComment on above:Performed By: #### BMP #### [facility] [address] [place] [address] [place] [place], [place] 5637383 Unit Director: Loreta Zelaya MDCO2 [Moles/Vol]26 mmol/QOjypef37-82Aodbm [facility] HospitalComment on above:Performed By: #### BMP #### [address] [place], [place] 032[address]83 Unit Director: RUTH Frazierreatinine [Mass/Vol]0.4 mg/dLLow0.50-0.90Select [facility] Hospital - CincinnatiComment on above:Performed By: #### BMP #### [facility] [address] [place] [address] [place] [address] Unit Director: Loreta Zelaya MDGFR/1.73 sq M.predicted among non-blacks MDRD (S/P/Bld) [Vol rate/Area]mL/min/{1.73_m2}Normal>60[facility] HospitalComment on above:Result Comment: These results are [...] renal tubular secretion.Performed By: #### BMP #### [address] [place], [place] 9307383 Unit Director: Loreta Zelaya MDGlucose [Mass/Vol]248 mg/qLHoaa83-99Gpahw [facility] HospitalComment on above:Performed By: #### BMP #### [address] [place], [place] 9441483 Unit Director: SUZY Frazierotassium [Moles/Vol]3.8 mmol/LNormal3.7-5.3MSumma Health [facility] Campus HospitalComment on above:Performed By: #### BMP #### [address] [place], [place] 4303783 Unit Director: Loreta Zelaya MDProtein [Mass/Vol]4.5 g/dLLow6.6-8.7[facility] HospitalComment on above:Performed By: #### BMP #### [address] [place], [place] 0205083 Unit Director: Loreta Zelaya MDSodium [Moles/Vol]137 mmol/ZOudank595-243Uyqwt [facility] HospitalComment on above:Performed By: #### BMP #### [address] [place] [address] Unit Director: Loreta Zelaya MDUrea nitrogen [Mass/Vol]15 mg/dLNormal6-20[facility] HospitalComment on above:Performed By: #### BMP #### [address] [place], [place] 3221683 Unit Director: RUTH Frazieromprehensive Metabolic Panel w/ Reflex to MGon 18-60-3985Ylnrrsw [Mass/Vol]3 g/dLLow3.5 - 5.2 g/dLBon [facility] [employer] Albumin/Globulin [Mass ratio]1.9 {ratio}1.0 - 2.5Bon [facility] ThermogenicsALP [Catalytic activity/Vol]104 U/L35 - 104 U/LBon SecDoctors HospitalClearside Biomedical [facility] HospitalALT [Catalytic activity/Vol]34 U/L10 - 35 U/LBon Secours Fort Hamilton HospitalPatientcoAnion gap [Moles/Vol]8 mmol/LLow9 - 16 mmol/LBon SecDoctors HospitalClearside Biomedical HealthAST [Catalytic activity/Vol]28 U/L10 - 35 U/LBon [facility] ThermogenicsBilirubin [Mass/Vol]mg/dL 0.00 - 1.20 mg/dLBon [facility] HospitalPatientcoCalcium [Mass/Vol]8.2 mg/dLLow8.6 - 10.4 mg/dLBon [facility] HospitalClearside Biomedical [facility] HospitalChloride [Moles/Vol]103 mmol/L98 - 107 mmol/L Bon [facility] VittanaCO2 [Moles/Vol]26 mmol/L20 - 31 mmol/LBon [facility] HospitalPatientcoCreatinine [Mass/Vol]0.4 mg/dLLow0.50 - 0.90 mg/dLBon [facility] [employer] Est, Glom Filt Rate- PINFBon Kaiser Foundation HospitalPatientcoComment on above: These results are not intended [...] that affects renal tubular secretion. Glucose [Mass/Vol]248 mg/fVWmqr59 - 99 mg/dLBon [facility] CenterCitizen Sports Interpretation and review of laboratory resultsAbnormalBon [facility]ana Potassium [Moles/Vol]3.8 mmol/L3.7 - 5.3 mmol/LBon [facility] CenterCitizen SportsProtein [Mass/Vol]4.5 g/dLLow6.6 - 8.7 g/dLBon [facility] ThermogenicsSodium [Moles/Vol]137 mmol/L136 - 145 mmol/LBon [facility] SpringfieldUrea nitrogen [Mass/Vol]15 mg/dL6 - 20 mg/dLBon [facility] SpringfieldUrea nitrogen/Creatinine [Mass ratio]38 mg/mg High9 - 20Bon [facility] CenterEKG 12 Leadon 78-23-2816Lymjeh Altc35OQZVoq [facility] SpringfieldP Jdzc51kwlsdbiOrcVirginia Hospital CenterP-R Dhaiqvxp535 [facility] HospitalQ-T Pydzjzvu575 [facility] HospitalQRS Nmxndjlk16 [facility] HospitalQTc Calculation (tt)459 [facility] HospitalR Wmtl88nzeorzaZcwVirginia Hospital CenterT Qorn37ebfjsgvFreBon Secours Mary Immaculate HospitalVentricular Jtur79QYRMny [facility] SpringfieldNormal sinus rhythm Low voltage QRS Borderline ECG No previous ECGs available Confirmed by BECKY AVILA ([id number]) on 10/17/2024 9:32:24 AMUNIV[facility] RAD[facility] Becky Avila MD - 10/17/2024 Normal sinus rhythm Low voltage QRS Borderline ECG No previous ECGs available Confirmed by BECKY AVILA ([id number]) on 10/17/2024 9:32:24 AM Bon [facility] CenterEKG Rhythm Stripon 10-17-2024 [facility] HospitalGlucose, Whole Bloodon 64-24-3033Sjdjvzh [Mass/Vol]119 mg/rBOqds60 - 100 mg/dLBon [facility] SpringfieldInterpretation and review of laboratory resultsAbnormRiverside Health SystemGlucose [Mass/Vol]119 mg/lEAnmt85-572CchexSelect Medical Specialty Hospital - CincinnatiGlucose [Mass/Vol]191 mg/dL High74 - 100 mg/dLBon [facility] SpringfieldInterpretation and review of laboratory resultsAbnoLandmann-Jungman Memorial Hospital Glucose [Mass/Vol]191 mg/aCJdkv64-583SmlyzSelect Medical Specialty Hospital - CincinnatiGlucose [Mass/Vol]111 mg/uVQadx58 - 100 mg/dLBon [facility] SpringfieldInterpretation and review of laboratory resultsAbnoLandmann-Jungman Memorial Hospital Glucose [Mass/Vol]111 mg/nSRprs36-565AxujhSelect Medical Specialty Hospital - CincinnatiGlucose [Mass/Vol]172 mg/dZLywz67 - 100 mg/dLBon [facility] SpringfieldInterpretation and review of laboratory resultsAbnoLandmann-Jungman Memorial Hospital Glucose [Mass/Vol]172 mg/bHNnzy61-337GelirSelect Medical Specialty Hospital - CincinnatiGlucose [Mass/Vol]402 mg/lQJmuv68 - 100 mg/dLBon [facility] SpringfieldInterpretation and review of laboratory resultsAbnoLandmann-Jungman Memorial Hospital Glucose [Mass/Vol]402 mg/dPSzsy32-360RepoqSelect Medical Specialty Hospital - CincinnatiHemoglobin A1Con 20-84-2097Hkyokem glucose Estimated from glycated hemoglobin (Bld) [Mass/Vol]364 mg/dLBon [facility] SpringfieldComment on above:The ADA and AACC recommend providing the estimated average glucose result to permit better patient understanding of their HBA1c result. HbA1c (Bld) [Mass fraction]14.3 %High4.0 - 6.0 %[facility] Interpretation and review of laboratory resultsAbAvera McKennan Hospital & University Health Center - Sioux FallsGlucose [Mass/Vol]364 mg/dLNoMercy Health [facility] Comment on above:Result Comment: The ADA and AACC recommend providing the estimated average glucose result to permit better patient understanding of their HBA1c result.Performed By: #### CDP #### [facility] [address] [place] [address] [place] [address] Unit Director: Loreta Zelaya MDHbA1c (Bld) [Mass fraction]14.3 %High4.0-6.0[facility] on above:Performed By: #### CDP #### [facility] [address] [place] [address] [place] [address] Unit Director: Loreta Zelaya MDOsmolality, Urineon 21-09-2067Lhshwoyyhm (U) [Osmolality]476 mosm/kgRiverside [facility] Hospital Osmolality - Cojpb626 mOsm/dgNmrsej36-0778HnfwbSelect Medical Specialty Hospital - CincinnatiComment on above: Performed By: #### UOSMO #### [facility] [address] [place] [address] Unit Director: Gee Royal MD #### URNA #### [facility] [address] [place] [address] Unit Director: SUZY Frazierrotein / creatinine ratio, urineon 10-17-2024 Creatinine (U) [Mass/Vol]43.9 mg/dL28.0 - 217.0 mg/dLBJohnston Memorial Hospital Interpretation and review of laboratory resultsAbnoBon Sec[facility] Protein (U) [Mass/Vol]10 mg/dLBJohnston Memorial HospitalComment on above:No normal range established.Urine Total Protein Creatinine Ratio0.84Fjkg7.00 - 0.20[facility] Reed HospitalProtein,Tot,Milton Uron 10-17-2024 Creatinine [Mass/Vol]43.9 mg/dLTplluj59.0-217.0[facility] Hospital - CincinnatiComment on above:Performed By: #### CDP #### [address] [place], [place] 4019583 Unit Director: Loreta Zelaya MDTot Prot. Conc.10 mg/dLVeterans Health Administration Comment on above:Result Comment: No normal range established.Performed By: #### CDP #### [facility] [address] [place], [place] 194[address]83 Unit Director: Loreta Zelaya MDTP/Cre Ratio0.47Iemi1.00-0.20[facility] [place] Comment on above:Performed By: #### CDP #### [facility] [address] [place] [address] Unit Director: QUAN Frazierodium, Random Uron 63-20-6067Nfjqxz (U) [Moles/Vol]30 mmol/LNormalBon [facility] SpringfieldComment on above:No normal range established.Result Comment: No normal range established.Performed By: #### UOSMO #### [facility] [address] [facility] [place] [address] Unit Director: Gee Royal MD #### URNA #### [facility] [address] [place] [address] [place] [place], [place] 3287583 Unit Director: QUAN Frazierodium, urine, randomon 49-28-8407Usf [facility] SpringfieldUrinalysis w/ Microon 14-84-6786Rzkxyxdp1+AbnormalNONEMercy Hartford HospitalComment on above:Performed By: #### BMP #### [address] [place], [place] 6658183 Unit Director: Kameron Frazierirubin, SemiQt,UrNegativeNormalNEGSelect Medical Specialty Hospital - CincinnatiComment on above:Performed By: #### BMP #### [address] [place], [place] 4970383 Unit Director: Lillian Frazier, UrineNegativeNormalNEGSelect Medical Specialty Hospital - [place] Comment on above:Performed By: #### BMP #### [facility] [address] [place] [address] Dr. [place], [facility] Unit Director: Rafi Frazierrity (ClearNormalCLEARSelect Medical Specialty Hospital - [place] Comment on above:Performed By: #### BMP #### [facility] [address] [place] [address] [place] [place], [place] 539[address]3 Unit Director: RUTH Frazierolor (YellowNoalYAkron Children's Hospital Comment on above:Performed By: #### BMP #### [facility] [address] [place] [address] [place] [place], [place] 1639083 Unit Director: Loreta Zelaya MDEpithelial cells LM Ql (Urine sed)5 TO 10Normal 0-25Mer[facility]iona HospitalComment on above:Performed By: #### BMP #### [facility] [address] [place] [address] [place] [place], [place] [id number] Unit Director: Loreta Zelaya MDGlucose Ql (U)3+ mg/dLAbnormalNEGMercy Health St. [facility]'S [facility] Center HospitalComment on above:Performed By: #### BMP #### [facility] [address] [place] [address] Unit Director: Loreta Zelaya MDKetones Ql (U)NegativeNormalNEGSelect Medical Specialty Hospital - CincinnatiComment on above:Performed By: #### BMP #### [address] [place], [place] 2415983 Unit Director: Loreta Zelaya MDLeukocyte esterase Test strip Ql (U)NegativeNormal NEGSelect Medical Specialty Hospital - CincinnatiComment on above:Performed By: #### BMP #### [facility] [address] [place] [address] [place] [address] Unit Director: Loreta Zelaya MDNitrite,UrNegativeNormalNEGSelect Medical Specialty Hospital - [place] Comment on above:Performed By: #### BMP #### [facility] [address] [place] [address] [place] [place], [place] 5144883 Unit Director: SUZY Fraizer,Ur6.6Jvderl3.0-9.0[facility] Hospital - CincinnatiComment on above:Performed By: #### BMP #### [facility] [address] [place], [place] 9994783 Unit Director: SUZY Frazierrotein Ql (U)NegativeNormalNEGSelect Medical Specialty Hospital - CincinnatiComment on above:Performed By: #### BMP #### [facility] [address] [place] [address] [place] [place], [place] 5912283 Unit Director: QUAN Frazierpec. Minden,Ur1.139Ayhumh0.010-1.020Select [facility] Hospital - CincinnatiComment on above:Performed By: #### BMP #### [facility] [address] [place], [place] 0133883 Unit Director: Tawny Frazier RBC's0 TO 4Qhkqwp5-7WbtxyPremier Health [facility] Comment on above:Performed By: #### BMP #### [facility] [address] [place], [facility] Unit Director: Tawny Frazier WBC's2 TO 9Hlcrib1-8MheatSelect Medical Specialty Hospital - [place] Comment on above:Performed By: #### BMP #### [facility] [address] [place] [address] [place] [address] Unit Director: Loreta Zelaya MDUrobilinogen,UrNormalNormal0.0-1.0[facility] Hospital - CincinnatiComment on above:Performed By: #### BMP #### [facility] [address] [place] [address] [place] [address] Unit Director: Loreta Zelaya MDYeastPRESENCE NOTEDAbnormalNONEMeUniversity of Connecticut Health Center/John Dempsey HospitalComment on above:Performed By: #### BMP #### [facility] [address] [place] [address] Dr. [place], [facility] Unit Director: Loreta Zelaya MDUrinalysis with Microscopicon 67-97-0193Pfkugpyy LM Ql (Urine sed)2+AbnormalNoneBon Secours Mercy HealthBilirubin Ql (U)Negative NEGATIVEBon Secours Mercy HealthClarity (U)ClearClearBon Secours [facility] Hospitaly Health Color (U)YellowYellowBon Secours Fort [facility] Hospitaly HealthEpithelial cells LM.HPF (Urine sed) [#/Area]5 TO 10[facility] Hospitaly HealthGlucose Test strip (U) [Mass/Vol]3+ AbnormalNEGATIVE mg/dLBon Secours Fort Hamilton Hospitaly HealthHemoglobin Auto test strip Ql (U) NegativeNEGATIVEBon Secours Mercy HealthInterpretation and review of laboratory resultsAbnormalBon Secours Mercy HealthKetones (U) [Mass/Vol]NegativeNEGATIVE mg/dLBon Secours [facility] Clinic Orthopedic CenterLeukocyte esterase Test strip Ql (U)Negative NEGATIVEBon [facility] HealthNitrite Ql (U)NegativeNEGATIVEBon Secours Fort [facility] Hospitaly HealthpH (U)6 [pH]5.0 - 9.0Bon [facility] Hospitaly HealthProtein (U) [Mass/Vol] NegativeNEGATIVE mg/dLBon [facility]ours [facility] HealthRBC LM.HPF (Urine sed) [#/Area]0 TO 2[facility] HealthSpecific gravity (U) [Rel density]1.011.010 - 1.020 [facility] Hospital CenterUrobilinogen Qn (U)Normal0.0 - 1.0 EU/dLBon Secours Crystal Clinic Orthopedic CenterWBC LM.HPF (Urine sed) [#/Area]2 TO 5[facility] HealthYeast LM Ql (Urine sed)PRESENCE NOTEDAbnormalNoneBon SecSouthwest Health CenterBrain Natri. Peptideon 14-50-6750Mvzszxltnsf peptide B (Bld) [Mass/Vol]299 pg/mLHigh0-125[facility] Hospital - CincinnatiComment on above:Performed By: #### CDP #### [facility] [address] [place] [address] [place] [address] Unit Director: Loreta Zelaya MDBrain Natriuretic Peptideon 30-68-7343Yxpklgjoiqy peptide B (Bld) [Mass/Vol]299 pg/mLHigh0 - 125 pg/mLBon [facility] SpringfieldCBC with Auto Differentialon 69-68-4751Xqdzgjvao (Bld) [#/Vol]0.05 10*3/uLBon Secours Crystal Clinic Orthopedic CenterBasophils/100 WBC (Bld)1 %0 - 2 %[facility] Eosinophils (Bld) [#/Vol]0.12 10*3/uLBon Secours Crystal Clinic Orthopedic CenterEosinophils/100 WBC (Bld)3 %1 - 4 %[facility] HealthErythrocyte distribution width (RBC) [Ratio]13.3 %11.8 - 14.4 %Bon [facility] SpringfieldHematocrit (Bld) [Volume fraction]35.7 %Low36.3 - 47.1 %[facility] Hospitaly HealthHemoglobin (Bld) [Mass/Vol]11.7 g/dLLow11.9 - 15.1 g/dLBon Secours Fort Hamilton Hospitaly HealthImmature granulocytes (Bld) [#/Vol][facility] HealthImmature granulocytes/100 WBC (Bld)0 %0[facility] Hospitaly HealthInterpretation and review of laboratory results AbnormalBon Secours Mercy HealthLymphocytes/100 WBC (Bld)34 %24 - 43 %[facility] HealthLymphocytes/100 WBC (Bld)1.57 %Bon SecAdena Health SystemH (RBC) [Entitic mass]33.5 pg25.2 - 33.5 pgBon Secours Knox Community HospitalHC (RBC) [Mass/Vol]32.8 g/dL28.4 - 34.8 g/dLBon SecCleveland Clinic FoundationMCV (RBC) [Entitic vol]102.3 fL82.6 - 102.9 fLBon Secours Fort Hamilton Hospitaly HealthMonocytes/100 WBC (Bld)12 %3 - 12 %[facility] Hospitaly HealthMonocytes/100 WBC (Bld)0.55 %[facility] Hospitaly HealthNeutrophils/100 WBC (Bld)50 %36 - 65 %[facility] Hospitaly HealthNucleated RBC/100 WBC (Bld) [Ratio]0 %0.0 per 100 WBCBon Secours Fort Hamilton Hospitaly HealthPlatelet mean volume (Bld) [Entitic vol]10.4 fL8.1 - 13.5 fLBon Secours Fort Hamilton Hospitaly HealthPlatelets (Bld) [#/Vol]238 10*3/uLBon Secours Fort Hamilton Hospitaly HealthRBC (Bld) [#/Vol]3.49 10*6/uLLow 3.95 - 5.11 m/uLBon Secours Fort Hamilton Hospitaly HealthSegmented neutrophils/100 WBC (Bld)2.37 %[facility] Hospitaly HealthWBC other (Bld) [#/Vol]4.7Bon [facility] Hospitaly HealthBon SecThe NeuroMedical Center HealthCBC with Diffon 95-90-1089Bxi. Basophil0.05 k/uLNormal 0.00-0.20Mercy Tabiona HospitalComment on above:Performed By: #### CDP #### [address] [place], [place] [address] Unit Director: MDAbs. KarinImm.Granulocyte<0.35Tlzbyb2.00-0.30MerBarnesville Hospital HospitalComment on above:Performed By: #### CDP #### [address] [place] [address] Unit Director: Marie Frazier.Neutrophil (Seg)2.37 k/uLNormal1.50-8.10MerBarnesville Hospital HospitalComment on above:Performed By: #### CDP #### [address] [place] [address] Unit Director: Loreta Zelaya MDBasophils/100 WBC (Bld)1 %Normal0-2Mercy Tabiona HospitalComment on above:Performed By: #### CDP #### [address] [place] [address] Unit Director: Loreta Zelaya MDEosinophils (Bld) [#/Vol]0.12 10*3/uLNormal 0.00-0.44MerBarnesville Hospital HospitalComment on above:Performed By: #### CDP #### [address] [place] [address] Unit Director: FARIBA Frazierosinophils/100 WBC (Bld)3 %Normal1-4MerBarnesville Hospital HospitalComment on above:Performed By: #### CDP #### [address] [place] [address] Unit Director: Loreta Zelaya MDErythrocyte distribution width (RBC) [Ratio]13.3 % Jlqgsd10.8-14.4MerBarnesville Hospital HospitalComment on above:Performed By: #### CDP #### [address] [place] [id number] Unit Director: Loreta Zelaya MDHematocrit (Bld) [Volume fraction]35.7 %Low 36.3-47.1MPremier Health Miami Valley HospitalComment on above:Performed By: #### CDP #### [address] [place] [address] Unit Director: Loreta Zelaya MDHemoglobin (Bld) [Mass/Vol]11.7 g/dLLow11.9-15.1 [facility] Hospital - CincinnatiComment on above:Performed By: #### CDP #### [address] [place] [address] Unit Director: Loreta Zelaya MDImmature granulocytes/100 WBC (Bld)0 %Nswthb6Zxiid [facility] HospitalComment on above:Performed By: #### CDP #### [address] [place], [facility] Unit Director: Loreta Zelaya MDLymphocytes (Bld) [#/Vol]1.57 10*3/uLNormal 1.10-3.70[facility] Hospital - CincinnatiComment on above:Performed By: #### CDP #### [address] [place], [facility] Unit Director: Luciana Fraziermphocytes/100 WBC (Bld)34 %Bqyvix21-08Ofxkb [facility] HospitalComment on above:Performed By: #### CDP #### [address] [place] [address] Unit Director: KELLI Frazier (RBC) [Entitic mass]33.5 ygNbmmci63.2-33.[address] [facility] [address] HospitalComment on above:Performed By: #### CDP #### [address] [place], [facility] Unit Director: Loreta Sturtz, MDMCHC (RBC) [Mass/Vol]32.8 g/jMXvjysz68.4-34.8[facility] HospitalComment on above:Performed By: #### CDP #### [address] [place] [address] Unit Director: MIGUELINA FrazierCV (RBC) [Entitic vol]102.3 rOYrpgmb01.6-102.[address] [address] HospitalComment on above:Performed By: #### CDP #### [address] [place] [address] Unit Director: MIGUELINA Frazieronocytes (Bld) [#/Vol]0.55 10*3/uLNormal0.10-1.[address] [address] HospitalComment on above:Performed By: #### CDP #### [address] [place], [facility]83 Unit Director: MIGUELINA Frazieronocytes/100 WBC (Bld)12 %Normal3-12[facility] - CincinnatiComment on above:Performed By: #### CDP #### [address] [place] [address] Unit Director: Loreta Zelaya MDNeutrophil (Seg)50 %Pngmme12-31FezjdSelect Medical Specialty Hospital - CincinnatiComment on above:Performed By: #### CDP #### [address] [place], [facility]83 Unit Director: Loreta Zelaya MDNRBC Automated0.0 per [address] HospitalComment on above:Performed By: #### CDP #### [address] [place], [place] [address]83 Unit Director: Loreta Zelaya MDPlatelet mean volume (Bld) [Entitic vol]10.4 fL Normal8.1-13.5[facility] HospitalComment on above:Performed By: #### CDP #### [facility] [address] [place], [place] [address] Unit Director: Luna Frazier ([facility]) [#/Vol]238 10*3/hSQfrcpo658-[address] [facility] [address] HospitalComment on above:Performed By: #### CDP #### [facility] [address] [place], [place] [address]83 Unit Director: KEYLA FrazierBC ([facility]) [#/Vol]3.49 10*6/uLLow3.95-5.11[facility] Hospitalcy [facility] HospitalComment on above:Performed By: #### CDP #### [facility] [address] [place], [place] [address] Unit Director: TSERING Frazier ([facility]) [#/Vol]4.7 10*3/uLNormal3.5-11.3MSumma Health [facility]ron Campus HospitalComment on above:Performed By: #### CDP #### [facility] [address] [place] [address] Unit Director: RUTH Fraziercedrick 70-96-2203Vflzzep [Mass/Vol]3.3 g/dLLow3.5 - 5.2 g/dLBon [facility] SpringfieldAlbumin/Globulin [Mass ratio]1.8 {ratio}1.0 - 2.5Bon [facility] SpringfieldALP [Catalytic activity/Vol]153 U/LHigh35 - 104 U/L Bon [facility] SpringfieldALT [Catalytic activity/Vol]49 U/LHigh10 - 35 U/LBon [facility] SpringfieldAnion gap [Moles/Vol]9 mmol/L9 - 16 mmol/LBon [facility] HealthAST [Catalytic activity/Vol]56 U/LHigh10 - 35 U/LBon [facility] Bilirubin [Mass/Vol]mg/dL0.00 - 1.20 mg/dLBon [facility] SpringfieldCalcium [Mass/Vol]8.4 mg/dLLow8.6 - 10.4 mg/dLBon [facility] HealthChloride [Moles/Vol]96 mmol/LLow98 - 107 mmol/LBon [facility] SpringfieldCO2 [Moles/Vol]25 mmol/L20 - 31 mmol/LBon [facility] SpringfieldCreatinine [Mass/Vol]0.8 mg/dL0.50 - 0.90 mg/dLBon [facility] SpringfieldEst, Glom Filt Rate85- PINFBon [facility] on above: These results are [...] Glucose [Mass/Vol]567 mg/dLCritically high74 - 99 mg/dLBon [facility] Potassium [Moles/Vol]4.5 mmol/L3.7 - 5.3 mmol/LBon [facility] on above:Specimen hemolysis has exceeded the interference as defined by Kat. Value may be falsely increased. Suggest recollection if clinically indicated. Protein [Mass/Vol]5.2 g/dLLow6.6 - 8.7 g/dLBon [facility] SpringfieldSodium [Moles/Vol]130 mmol/TKrs199 - 145 mmol/LBon [facility] SpringfieldUrea nitrogen [Mass/Vol]22 mg/dLHigh6 - 20 mg/dLBon [facility] SpringfieldUrea nitrogen/Creatinine [Mass ratio]28 mg/mgHigh9 - 20Bon [facility] Hospitalp Metabolic Profon 99-31-5074Bfplrvj [Mass/Vol]3.3 g/dLLow3.5-5.2[facility] on above:Performed By: #### INSU #### [facility] [employer] [address] [place] [address] Unit Director: Gee Royal MD [facility] [address] [place] [address] Unit Director: Loreta Zelaya MD #### CPEP #### [address] [address] Unit Director: Gee Royal MDAlbumin/Glob Ratio1.3Klrlmw5.0-2.5[facility] Hospital - CincinnatiComtr[facility] on above:Performed By: #### INSU #### [address] [address] Unit Director: Gee Royal MD [address] [place], [place] [address] Unit Director: Loreta Zelaya MD #### CPEP #### [address] [address] Unit Director: Kumar Pinedaline Jbqn989 U/OKpes11-644AlygrSelect Medical Specialty Hospital - CincinnatiComtrinity health living[facility] hospital on above:Performed By: #### INSU #### [address] [address] Unit Director: Gee Royal MD [address] [place], [facility]83 Unit Director: Loreta Zelaya MD #### CPEP #### [address] [address] Unit Director: Gee Royal MDALT [Catalytic activity/Vol]49 U/JWbku95-41NbvbaSelect Medical Specialty Hospital - CincinnatiComtrinity health [facility] hospital on above:Performed By: #### INSU #### [address] [address] Unit Director: Gee Royal MD [address] [place], [facility]83 Unit Director: Loreta Zelaya MD #### CPEP #### [address] [address] Unit Director: Hetal Pineda gap [Moles/Vol]9 mmol/LNormal9-16Select [facility] Hospital - CincinnatiComment on above:Performed By: #### INSU #### [address] [address] Unit Director: Gee Royal MD [address] [place], [place] [address] Unit Director: Loreta Zelaya MD #### CPEP #### [address] [address] Unit Director: Gee Royal MDAST [Catalytic activity/Vol]56 U/CLibw40-11QrlxrSelect Medical Specialty Hospital - CincinnatiComment on above:Performed By: #### INSU #### [address] [address] Unit Director: Gee Royal MD [address] [place] [address] Unit Director: Loreta Zelaya MD #### CPEP #### [address] [address] Unit Director: Gee Royal MDBilirubin [Mass/Vol]mg/dLNormal0.00-1.20[facility] Hospital - CincinnatiComment on above:Performed By: #### INSU #### [address] [address] Unit Director: Gee Royal MD [facility] [address] [place] [address] [place] [address] Unit Director: Loreta Zelaya MD #### CPEP #### [address] [address] Unit Director: Gee Royal MDBUN/CRE Gjutn32Zwdj8-82EqeslSelect Medical Specialty Hospital - Cincinnati Comment on above:Performed By: #### INSU #### [address] [address] Unit Director: Gee Royal MD [address] [place], [place] [address]83 Unit Director: Loreta Zelaya MD #### CPEP #### [address] [address] Unit Director: RUTH Pinedaalcium [Mass/Vol]8.4 mg/dLLow8.6-10.4Select [facility] Specialty Hospital - CincinnatiComment on above:Performed By: #### INSU #### [address] [address] Unit Director: Gee Royal MD [address] [place], [place] [address]83 Unit Director: Loreta Zelaya MD #### CPEP #### [address] [address] Unit Director: RUTH Pinedahloride [Moles/Vol]96 mmol/KOlf32-492FivsuSelect Medical Specialty Hospital - CincinnatiComment on above:Performed By: #### INSU #### [address] [address] Unit Director: Gee Royal MD [address] [place], [place] 8[address]83 Unit Director: Loreta Zelaya MD #### CPEP #### [address] [address] Unit Director: RUTH PinedaO2 [Moles/Vol]25 mmol/DFdmddo55-02EohfhSelect Medical Specialty Hospital - CincinnatiComment on above:Performed By: #### INSU #### [address] [address] Unit Director: Gee Royal MD [address] [place], [place] [address] Unit Director: Loreta Zelaya MD #### CPEP #### [address] [address] Unit Director: RUTH Pinedareatinine [Mass/Vol]0.8 mg/dLNormal0.50-0.90 [facility] Hospital - CincinnatiComment on above:Performed By: #### INSU #### [address] [address] Unit Director: Gee Royal MD [address] [place], [place] 374[address]83 Unit Director: Loreta Zelaya MD #### CPEP #### [address] [address] Unit Director: Gee Royal MDGFR/1.73 sq M.predicted among non-blacks MDRD (S/P/Bld) [Vol rate/Area]85 mL/min/{1.73_m2}Normal>60[facility] Comment on above:Result Comment: These results are [...] renal tubular secretion.Performed By: #### INSU #### [address] [address] Unit Director: Gee Royal MD [address] [place], [place] 111[address]83 Unit Director: Loreta Zelaya MD #### CPEP #### [address] [address] Unit Director: Gee Royal MDGlucose [Mass/Vol]567 mg/dLCritically kurp15-46 [facility] Hospital - CincinnatiComment on above:Performed By: #### INSU #### [address] [address] Unit Director: Gee Royal MD [address] [place], [place] 349[address]83 Unit Director: Loreta Zelaya MD #### CPEP #### [address] [address] Unit Director: Gee Royal MDPotassium [Moles/Vol]4.5 mmol/LNormal3.7-5.3 [facility] Hospital - CincinnatiComment on above:Result Comment: Specimen hemolysis has exceeded the interference as defined by Kat. Value may be falsely increased. Suggest recollection if clinically indicated.Performed By: #### INSU #### [address] [address] Unit Director: Gee Royal MD [address] [place] [id number] Unit Director: Loreta Zelaya MD #### CPEP #### [address] [address] Unit Director: Gee Royal MDProtein [Mass/Vol]5.2 g/dLLow6.6-8.7Select [facility] Hospital - CincinnatiComment on above:Performed By: #### INSU #### [address] [address] Unit Director: Gee Royal MD [address] [place] [address] Unit Director: Loreta Zelaya MD #### CPEP #### [address] [address] Unit Director: Gee Royal MDSodium [Moles/Vol]130 mmol/YWrg450-173YwmvkSelect Medical Specialty Hospital - CincinnatiComment on above:Performed By: #### INSU #### [address] [address] Unit Director: Gee Royal MD [address] [place] [address]83 Unit Director: Loreta Zelaya MD #### CPEP #### [facility] [address] [place], [place] 2237[address] Unit Director: Gee Royal MDUrea nitrogen [Mass/Vol]22 mg/dLHigh6-20[facility] Hospital - CincinnatiComment on above:Performed By: #### INSU #### [facility] [address] [place] [address] Unit Director: Gee Royal MD [facility] [address] [place] [address] Dr. [place], [place] 9[address]83 Unit Director: Loreta Zelaya MD #### CPEP #### [facility] [address] [place], [place] [address] Unit Director: Gee Royal MDGlucose, Whole Bloodon 85-45-3889Lxkwhaz [Mass/Vol]564 mg/dLCritically high74 - 100 mg/dLBon [facility] Interpretation and review of laboratory resultsAbnoSanford USD Medical CenterGlucose [Mass/Vol]564 mg/dLCritically quyq70-569QtueeSelect Medical Specialty Hospital - CincinnatiMagnesiumon 29-83-3432Ehnlunhkz [Mass/Vol]2 mg/dL1.6 - 2.6 mg/dL [facility] HospitalMagnesium [Mass/Vol]2.0 mg/dL Normal1.6-2.6MPremier Health Miami Valley HospitalComment on above:Performed By: #### CDP #### [facility] [address] [place], [place] [address]83 Unit Director: Loreta Zelaya MDNo Panel Informationon 41-07-1352Qvweufzwtgbsaa and review of laboratory resultsAbMilbank Area Hospital / Avera HealthTroponinon 41-74-6685Wrfkxozh I.cardiac High sensitivity method [Mass/Vol]ng/L0 - 14 ng/LBon [facility] SpringfieldComment on above:High Sensitivity Troponin values cannot be compared with other Troponin methodologies.Troponin, High Sens<6Ddmfjg7-91BxvmsSelect Medical Specialty Hospital - CincinnatiComment on above:Result Comment: High Sensitivity Troponin values cannot be compared with other Troponin methodologies.Performed By: #### INSU #### [facility] [address] [place] [address] Unit Director: Gee Royal MD [facility] [address] [place], [place] 920[address]83 Unit Director: Loreta Zelaya MD #### CPEP #### [facility] [address] [place] [address] Unit Director: Gee Royal MDMIDSTATE MEDICAL CENTER METABOLIC PANLon 07-68-2060Pthva gap [Moles/Vol]18 mmol/LHigh5-15ProMediOhioHealth Grove City Methodist Hospital HospitalComment on above:Performed By: #### TRISTAN, 6-3, 3023-7 #### [facility] ([id number]) [address], [address] [place], [place] [address]Hjsvezi [Mass/Vol]9.0 mg/dLNormal8.5-10.5Pro[facility] [place] HospitalComment on above:Performed By: #### TRISTAN, 3015-3, 3023-7 #### [facility] ([id number]) [address], [address] [place], [place] [address]Bqzjixfl [Moles/Vol]101 mmol/KKnsfmd43-036UwoDjdqyp [place] HospitalComment on above:Performed By: #### TRISTAN, 6-3, 3023-7 #### [facility] ([id number]) [address], [address] [place], [place] [address]GE6 [Moles/Vol]15 mmol/ZBae92-38EfyBrrpmj [place] HospitalComment on above:Performed By: #### TRISTAN, 6-3, 302-7 #### [facility] ([id number]) [address], [address] [place], [place] [address]Zvtolbtcpd [Mass/Vol]0.52 mg/dLNormal0.40-1.00Pro[facility]ica [place] HospitalComment on above:Result Comment: METHOD TRACEABLE TO IDMS STANDARD Performed By: #### TRISTAN, 3, 3024-01 #### [facility] ([id number]) [address], [address] [place], [place] [address]xPBS (CKD-EPI) NON-RACE DEPENDENT>90Normal>59Pro[facility]ica [place] HospitalComment on above:Result Comment: Reported eGFR is based on the CKD-EPI 2020 equation that does not use a race coefficient.Performed By: #### TRISTAN, 3015-09, 3024-01 #### [facility] ([id number]) [address], [facility] [address] [place], [place] [address]Tmiiczl [Mass/Vol]321 mg/mEOgxp09-32JakLhspdh [facility] Comment on above:Performed By: #### TRISTAN, 3015-09, 3024-01 #### [facility] ([id number]) [address] [address] [place], [place] [address]Nefttoktm [Moles/Vol]4.3 mmol/LNormal3.5-5.0ProDayton Osteopathic Hospitalca Milwaukee HospitalComment on above:Performed By: #### TRISTAN, 3015-09, 7 #### [facility] ([id number]) [address], [facility] [address] [place], [place] [address]Zpyeud [Moles/Vol]134 mmol/PTfqfly806-081MscTdqbjl [place] HospitalComment on above:Performed By: #### TRISTAN, 3, 7 #### [facility] ([id number]) [address], [facility] [address] [place], [place] [address]Rvsy nitrogen [Mass/Vol]15 mg/dLNormal5-23ProMedica [facility]anda HospitalComment on above:Performed By: #### TRISTAN, 3015-09, 3023- #### [facility] ([id number]) [address] [facility], [address] [place], [place] [address]Ruyoo Metabolic Panelon 83-84-2838Eiatd gap [Moles/Vol]18 mmol/L High5 - 15 mmol/LProMedica Health SystemCalcium [Mass/Vol]9.0 mg/dL8.5 - 10.5 mg/dLProWalker County Hospital Health SystemChloride [Moles/Vol]101 mmol/L98 - 109 mmol/L [facility] Health SystemCO2 [Moles/Vol]15 mmol/LLow22 - 32 mmol/LProMedica Health SystemCreatinine [Mass/Vol]0.52 mg/dL0.40 - 1.00 mg/dLFairfield Medical Center Comment on above:METHOD TRACEABLE TO IDPA STANDARDeGFR (CKD-EPI)non-race dependent- [facility] Medical CenterComment on above: Reported eGFR is based on the CKD-EPI 2020 equation that does not use a race coefficient. Glucose [Mass/Vol]321 mg/dEUmol47 - 99 mg/dLFairfield Medical Center Interpretation and review of laboratory resultsAbnoEagleville Hospital System Potassium [Moles/Vol]4.3 mmol/L3.5 - 5.0 mmol/LProMedica Health SystemSodium [Moles/Vol]134 mmol/L134 - 146 mmol/LPrChristian Hospitalica Health SystemUrea nitrogen [Mass/Vol]15 mg/dL5 - 23 mg/dLFairfield Medical CenterProTrihealth [facility] Hospital SystemFREE T4on 84-32-1496Tlxi T4 [Mass/Vol]0.56 ng/dLLow0.61-1.60[facility] HospitalComment on above:Performed By: #### BMP, 3016-3, 3024-7 #### [facility] ([id number]) [address] [facility], [address] [place], [place] [address]Wxwp T4 [Mass/Vol]on 86-20-4984Wbxtvmthdsdkiv and review of laboratory resultsAbnoEagleville Hospital SystemTriHealth McCullough-[facility] SystemT4, free on 42-96-7724Omqj T4 [Mass/Vol]0.56 ng/dLLow0.61 - 1.60 ng/dLFairfield Medical CenterTSHon 36-92-4935RZS Qn9.36 m[IU]/LHighUNC Health Blue Ridge - Valdese Qnon 33-43-5229Lstbiesfiwngqi and review of laboratory resultsAbnormalSelect Specialty Hospital - ErieTSH9.36 uIU/mLHigh0.49-4.67[facility] HospitalComment on above:Performed By: #### TRISTAN, 3016-3, 3024-7 #### [facility] ([id number]) [address], [address] [place], [place] [address]A peptide [Mass/Vol]on 09-01-2023 PEPTIDE1.10 ng/mLNormal 0.81-3.85[facility] HospitalComment on above:Result Comment: NOTE Test Performed By: [place] [address] Roll Carrier: Judson Reese III, M.D. [facility] #[id number] - ALBUMIN:CREATININE URINE RATIOon 09-01-2023 ALB/CREAT RATIONOT CALCULATEDNormal0.0-30.0[facility] HospitalComment on above:Result Comment: Result for Albumin/Creatinine Ratio cannot be reliably calculated because urine albumin and or urine creatinine is below the detection limit of the assay.Performed By: #### JESUS #### [facility] ([id number]) [address], [address] [place], [place] [address]Wiqoyhl DL <= 20 mg/L (U) [Mass/Vol]mg/dLNormal0.0-1.9Fair[facility] Medical CenterComment on above:Performed By: #### JESUS #### [facility] ([id number]) [address] [place], [place] [address]VGRNH CREAT12.23 mg/dLNormalMercy Health Kings Mills HospitalComment on above:Performed By: #### JESUS #### [facility] ([id number]) [address], [address] [place], [place] [address]Qditxajywvit - Albumin: Creatinine Urine Ratioon 09-01-2023 Albumin/Creatinine DL <= 1.0 mg/L (U) [Ratio]NOT CALCULATEDFairfield Medical CenterComment on above: Result for Albumin/Creatinine Ratio cannot be reliably calculated because urine albumin and or urine creatinine is below the detection limit of the assay. Creatinine (U) [Mass/Vol]12.23 mg/dLSelect Specialty Hospital - ErieCOMPREHENSIVE METABOLIC PANELon 12-80-3953Lmsrfwv [Mass/Vol]3.9 g/dLNormal 3.2-5.3PUK HealthcareComment on above:Performed By: #### CMP, THYR, HA1C, 84687-4 #### [facility] ([id number]) [address], [address] [place], [place] [address]XDE [Catalytic activity/Vol]73 U/UCjrfat80-305TafUtlcii [place] HospitalComment on above:Performed By: #### CMP, THYR, HA1C, 28599-7 #### [facility] ([id number]) [address], [address] [place], [place] [address]VUM [Catalytic activity/Vol]7 U/LNormal0-31PUK HealthcareComment on above:Performed By: #### CMP, THYR, HA1C, 32263-2 #### [facility] ([id number]) [address], [address] [place], [place] [address]Jsbsr gap [Moles/Vol]9 mmol/LNormal5-15ProThe [facility] Of [facility] Comment on above:Performed By: #### CMP, THYR, HA1C, 40856-4 #### [facility] ([id number]) [address], [address] [place], [place] [address]IRL [Catalytic activity/Vol]9 U/LNormal0-41ProMadison HealthComment on above:Performed By: #### CMP, THYR, HA1C, 26006-1 #### [facility] ([id number]) [address], [address] [place], [place] [address]Bzeqqjirv [Mass/Vol]0.5 mg/dLNormal0.3-1.2PCleveland [facility] HospitalComment on above:Performed By: #### MANNY, THYR, HAJoe, 27376-2 #### [facility] ([id number]) [address], [address] [place], [place] [address]Ugjtllc [Mass/Vol]8.7 mg/dLNormal8.5-10.5PCleveland Clinic Union Hospital HospitalComment on above:Performed By: #### MANNY THYR, HAJoe, 05237-9 #### [facility] ([id number]) [address], [address] [place], [place] [address]Mgdrbjjc [Moles/Vol]99 mmol/QAfkdoi56-326NvaRahral [place] HospitalComment on above:Performed By: #### MANNY THYR HAJoe, 89227-2 #### [facility] ([id number]) [address], [address] [place], [place] [address]FW2 [Moles/Vol]24 mmol/LLcuzzd13-74PpnFmfucs [facility] Comment on above:Performed By: #### MANNY, THYR, HAJoe, 69947-1 #### [facility] ([id number]) [address], [address] [place], [place] [address]Fxfccucdrk [Mass/Vol]0.53 mg/dLNormal0.40-1.00ProMadison HealthComment on above:Result Comment: METHOD TRACEABLE TO IDMS STANDARD Performed By: #### MANNY THYR, HAJoe, 10283-2 #### [facility] ([id number]) [address], [address] [place], [place] [address]mIAG (CKD-EPI) NON-RACE DEPENDENT>90Normal>59ProMadison HealthComment on above:Result Comment: Reported eGFR is based on the CKD-EPI 2020 equation that does not use a race coefficient.Performed By: #### MANNY THYGENTRY Stevens, 72398-6 #### [facility] ([id number]) [address], [address] [place], [place] [address]Ylheuyv [Mass/Vol]474 mg/dLCritically gndw40-26DghCneiiaMadison HealthComment on above:Performed By: #### MANNY THYRGENTRY, 05004-1 #### [facility] ([id number]) [address] [address] [place], [place] [address]Dxoerouan [Moles/Vol]3.9 mmol/LNormal3.5-5.0ProMadison HealthComment on above:Performed By: #### MANNY THYRGENTRY, 28828-3 #### [facility] ([id number]) [address] [address] [place], [place] [address]Estdaey [Mass/Vol]6.5 g/dLNormal6.0-8.0[facility] Comment on above:Performed By: #### MANNY THYRGENTRY, 01681-2 #### [facility] ([id number]) [address] [address] [place], [place] [address]Smdmvo [Moles/Vol]132 mmol/LDco344-541DreCjqmodMadison Health Comment on above:Performed By: #### MANNY THYR HAJoe, 51791-2 #### [facility] ([id number]) [address] [address] [place], [place] [address]Zujp nitrogen [Mass/Vol]7 mg/dLNormal5-23ProMadison HealthComment on above:Performed By: #### MANNY THYR, HAJoe, 00920-8 #### [facility] ([id number]) [address], [address] [place], [place] [address]Nspikijlbhjcq metabolic panelon 24-68-6923Iuosgot [Mass/Vol]3.9 g/dL3.2 - 5.3 g/dLFairfield Medical CenterALP [Catalytic activity/Vol]73 U/L39 - 130 U/[facility] SystemALT No additional P-5'-P [Catalytic activity/Vol]7 U/L0 - 31 U/[facility] Health SystemAnion gap [Moles/Vol]9 mmol/L5 - 15 mmol/L ProMPhillips Eye Institute SystemAST [Catalytic activity/Vol]9 U/L0 - 41 U/[facility] HospitalBilirubin [Mass/Vol]0.5 mg/dL0.3 - 1.2 mg/dLFairfield Medical Center Calcium [Mass/Vol]8.7 mg/dL8.5 - 10.5 mg/dLFairfield Medical CenterChloride [Moles/Vol]99 mmol/L98 - 109 mmol/[facility] SystemCO2 [Moles/Vol]24 mmol/L22 - 32 mmol/[facility] HospitalCreatinine [Mass/Vol]0.53 mg/dL0.40 - 1.00 mg/dLFairfield Medical CenterComment on above:METHOD TRACEABLE TO BACKUS HOSPITAL STANDARDeGFR (CKD-EPI)non-race dependent- [facility] Medical CenterComment on above: Reported eGFR is based on the CKD-EPI 2020 equation that does not use a race coefficient. Glucose [Mass/Vol]474 mg/dLCritically high65 - 99 mg/dLFairfield Medical Center Interpretation and review of laboratory resultsAbnoHighlands-Cashiers Hospital Potassium [Moles/Vol]3.9 mmol/L3.5 - 5.0 mmol/[facility] Health SystemProtein [Mass/Vol]6.5 g/dL6.0 - 8.0 g/dLReplaced by [facility] HealthCare System Ansonodium [Moles/Vol]132 mmol/LYlp853 - 146 mmol/[facility] Cross HospitalUrea nitrogen [Mass/Vol]7 mg/dL5 - 23 mg/dLSelect Specialty Hospital - ErieHGB A1C (GLYCO-HGB)on 51-29-6140Yyqcfdq [Mass/Vol]349 mg/dLNoSuburban Community Hospital & Brentwood HospitalComment on above:Performed By: #### CMP, THYR, HA1C, 30155-4 #### [facility] ([id number]) [address] [place], [place] [address]IuV8d (Bld) [Mass fraction]13.8 %High4.4-5.6[facility] HospitalComment on above:Result Comment: NOTE ADA Guidelines Result HgbA1c Normal : less than 5.7 % Prediabetes : 5.7 % to 6.4 % Diabetes : > 6.4 % Use with caution in patients with abnormal hemoglobin variants as the half-life of red blood cells and in vivo glycation rates are affected.Performed By: #### MANNY, FRANK, PHILLIP, 58933-6 #### [facility] ([id number]) [address], [address] [place], [place] [address]Abewzrmknx A1con 01-48-2520Csqlfxw glucose Estimated from glycated hemoglobin (Bld) [Mass/Vol]349 mg/dLFairfield Medical CenterHbA1c (Bld) [Mass fraction]13.8 %High4.4 - 5.6 %[facility] Medical CenterComment on above:NOTE ADA Guidelines Result HgbA1c Normal : less than 5.7 % Prediabetes : 5.7 % to 6.4 % Diabetes : > 6.4 % Use with caution in patients with abnormal hemoglobin variants as the half-life of red blood cells and in vivo glycation rates are affected. Interpretation and review of laboratory resultsAbnormalOSS HealthLipid 1996 panelon 59-04-7722Zcgpjsblqrg [Mass/Vol]104 mg/dMApg679 - 200 mg/dLFairfield Medical CenterCholesterol in HDL [Mass/Vol]43 mg/dL39 - PINF mg/dLFairfield Medical CenterComment on above: HDL <40 mg/dL - High Risk HDL > or = 40mg/dL- Desirable HDL >60 mg/dL - Negative Risk Cholesterol in LDL [Mass/Vol]28 mg/dLNINF - 130 mg/dLFairfield Medical Center Comment on above: LDL <100 mg/dL - Desirable LDL >160 mg/dL - High Risk Cholesterol in VLDL [Mass/Vol]33 mg/dLHigh0 - 30 mg/dLFairfield Medical Center Cholesterol.total/Cholesterol in HDL [Mass ratio]2.4 {ratio}1.0 - 5.0[facility] Medical CenterTriglyceride [Mass/Vol]165 mg/vVFjlt93 - 150 mg/dLFairfield Medical CenterCholesterol [Mass/Vol]104 mg/pCEzk819-415YzwAagfczMercy Health Kings Mills HospitalComment on above:Performed By: #### FRANK BRYANT, PHILLIP, 85976-9 #### [facility] ([id number]) [address], [address] [place], [place] [address]Ugoubvvjjse in HDL [Mass/Vol]43 mg/dLNormal>39Mer[facility] Mills HospitalComment on above:Result Comment: HDL <40 mg/dL - High Risk HDL > or = 40mg/dL- Desirable HDL >60 mg/dL - Negative Risk Performed By: #### MANNY, FRANK, HA1C, 13350-0 #### [facility] ([id number]) [address], [address] [place], [place] [address]Liojgleqxxe in LDL [Mass/Vol]28 mg/dLNormal<130ProThe [facility] HospitalComment on above:Result Comment: LDL <100 mg/dL - Desirable LDL >160 mg/dL - High Risk Performed By: #### FRANK BRYANT, GENTRY, 06403-9 #### [facility] ([id number]) [address], [address] [place], [place] [address]Zilqlkynxxd in VLDL [Mass/Vol]33 mg/dLHigh0-30ProThe [facility] HospitalComment on above:Performed By: #### MANNY, THYR, HAJoe, 80919-5 #### [facility] ([id number]) [address], [address] [place], [place] [address]QTCQDBNSYZC:HDL2.0Hnnlvc7.0-5.0ProThe [facility] HospitalComment on above:Performed By: #### FRANK BRYANT HA1C, 86936-4 #### [facility] ([id number]) [address], [address] [place], [place] [address]Oehaafemcgak [Mass/Vol]165 mg/gCWqxp30-646AevSohjri Toledo HospitalComment on above:Performed By: #### FRANK BRYANT HA1C, 75942-3 #### [facility] ([id number]) [address], [address] [place], [place] [address]If Panel Informationon 36-14-2862Xichipwizgnfkt and review of laboratory resultsAbnormalProTrihealth Bethesda North Hospital SystemProTrihealth [facility] Hospital SystemTHYROID PROFILEon 85-11-3612Oqgk T4 [Mass/Vol]0.50 ng/dLLow0.61-1.60ProThe [facility] HospitalComment on above:Performed By: #### MANNY THYR, HAJoe, 42271-2 #### [facility] ([id number]) [address], [address] [place], [place] [address]LRV8.94 uIU/mLHigh0.49-4.67ProThe [facility] HospitalComment on above:Performed By: #### MANNY THYR, HA1C, 11747-1 #### [facility] ([id number]) [address], [address] [place], [place] [address]Zajiblv profile includes TSH FT4on 80-00-8211Mrur T4 [Mass/Vol] 0.50 ng/dLLow0.61 - 1.60 ng/dLUNC Health Blue Ridge - Valdese Qn8.94 m[IU]/LHRappahannock General HospitalCBC AUTO DIFFon 13-53-2359VRXE #0.1 103/ulNormal0.0-0.1 [facility] Medical CenterComment on above:Performed By: #### CBC #### [facility] [address] [place] [address] Dr. Alejandra TrotterBasophils/100 WBC (Bld)0.9 %Normal0.2-2.0[facility] Comment on above:Performed By: #### CBC #### [facility] [address] [place] [address] Dr. Alejandra Ruby #0.2 103/ulNormal0.0-0.7The [facility] Medical CenterComment on above: Performed By: #### CBC #### [facility] [address] [place] [address] Dr. Alejandra Nealosinophils/100 WBC (Bld)3.4 %Normal0.9-7.0[facility] Comment on above:Performed By: #### CBC #### [facility] [address] [place] [address] Dr. Alejandra Nealrythrocyte distribution width (RBC) [Ratio]12.5 %Ialnzj74.0-15.0 [facility] Medical CenterComment on above:Performed By: #### CBC #### [facility] [address] [place] [address] Dr. Alejandra TrotterHematocrit (Bld) [Volume fraction]45.3 %Spheca73.0-48.0[facility] CenterComment on above:Performed By: #### CBC #### [facility] [address] [place] [address] Dr. Alejandra TrotterHemoglobin (Bld) [Mass/Vol]15.0 g/rDFutmrc57.0-16.0The [facility] CenterComment on above:Performed By: #### CBC #### [facility] [address] [place] [address] Dr. Alejandra Lai #0.02 10e3/ulNormal0.00-0.03The [facility] Medical CenterComment on above:Performed By: #### CBC #### [facility] [address] [place] [address] Dr. Alejandra Lai %0.3 %Normal0.0-0.5The [facility] Medical CenterComment on above: Performed By: #### CBC #### [facility] [address] [place] [address] Dr. Alejandra Fajardo #2.4 103/ulNormal1.2-3.8The [facility] Medical CenterComment on above:Performed By: #### CBC #### [facility] [address] [place] [address] Dr. Alejandra Oliviahocytes/100 WBC (Bld)41.2 %Scpbbm51.5-60.0The [facility] Medical CenterComment on above:Performed By: #### CBC #### [facility] [address] [place] [address] Dr. Alejandra AndersUAL DIFF REQNONormalThe [facility] CenterComment on above: Performed By: #### CBC #### [facility] [address] [place] [address] Dr. Alejandra Monzon (RBC) [Entitic mass]29.1 vvLbwqff16.7-34.0The [facility] CenterComment on above:Performed By: #### CBC #### [facility] [address] [place] [address] Dr. Alejandra Monzon (RBC) [Mass/Vol]33.1 g/sHDkwfta78.9-35.2The [facility] HospitalComment on above:Performed By: #### CBC #### [facility] [address] [place] [address] Dr. Alejandra Tenorio (RBC) [Entitic vol]87.8 aDFvbfog71.0-99.0The [facility] CenterComment on above:Performed By: #### CBC #### [facility] [address] [place] [address] Dr. Alejandra Key #0.4 103/ulNormal0.3-0.8The [facility] CenterComment on above:Performed By: #### CBC #### [facility] [address] [place] [address] Dr. Alejandra Aranaocytes/100 WBC (Bld)6.7 %Normal1.7-12.0The [facility] Comment on above:Performed By: #### CBC #### [facility] [address] [place] [address] Dr. Alejandra Decker #2.8 103/ulNormal1.4-6.5The [facility] CenterComment on above:Performed By: #### CBC #### [facility] [address] [place] [address] Dr. Alejandra Daileyutrophils/100 WBC (Bld)47.5 %Iueskh22.0-75.0The [facility] CenterComment on above:Performed By: #### CBC #### [facility] [address] [place] [address] Dr. Alejandra Jones mean volume (Bld) [Entitic vol]10.7 fLNormal9.5-13.5The [facility] CenterComment on above:Performed By: #### CBC #### [facility] [address] [place] [address] Dr. Alejandra TrotterPLT282 103/mzJeblse598-127Twl [facility] CenterComment on above: Performed By: #### CBC #### [facility] [address] [place] [address] Dr. Alejandra TrotterRBC5.16 106/ulNormal4.20-5.40The [facility] CenterComment on above:Performed By: #### CBC #### [facility] [address] [place] [address] Dr. Alejandra TrotterWBC5.8 103/ulNormal4.0-11.0The [facility] on above: Performed By: #### CBC #### [facility] [address] [place] [address] Dr. Alejandra Moncada-DIMERon 84-50-3959V-DIMER0.58 mg/L FEUNormal<=0.59The [facility] on above:Performed By: #### DDIM #### [facility] [address] [place] [address] Dr. Alejandra Moncada-DIMER COMMENTSSEE [facility] on above:Result Comment: Increases in D-Dimer concentration [...] generalized hospitalization. Performed By: #### DDIM #### [facility] [address] [place] [address] Dr. Alejandra Cannon URINE PROFILEon 06-09-6615Qgpibfwfn Ql (U)NegativeNormal NEGATIVEThe [facility] on above:Performed By: #### ERUR #### [facility] [address] [place] [address] Dr. Alejandra TrotterClarity (U)CLEARNormalCLEARThe [facility] CenterComtrinity [facility] on above: Performed By: #### ERUR #### [facility] [address] [place] [address] Dr. Alejandra Stallworth (U)LT. YELLOWNormalYELLOWUniversity Hospitals Parma Medical CenterComtrinity health [facility] hospital on above:Performed By: #### ERUR #### [facility] [address] [place] [address] Dr. Alejandra Forde micrscopic examination will be performed if indicated. NormalThe [facility] CenterComment on above:Performed By: #### ERUR #### [facility] [address] [address] [address] Alejandra TrotterGlucose Ql (U)>1000AbnormalNEGATIVEUniversity Hospitals Parma Medical CenterComment on above:Performed By: #### ERUR #### [facility] [address] [place] [address] Dr. Alejandra TrotterHemoglobin Ql (U)TRACE-LYSEDAbnormalNEGATIVEUniversity Hospitals Par[facility] Medical Center Comment on above:Performed By: #### ERUR #### [facility] [address] [place] [address] Dr. Alejandra TrotterKetones Ql (U)>=80AbnormalNEGATIVEUniversity Hospitals Parma Medical CenterComment on above:Performed By: #### ERUR #### [facility] [address] [place] [address] Dr. Alejandra TrotterLEUKOCYTESNegativeNormalNEGATIVEUniversity Hospitals Parma Medical CenterComment on above:Performed By: #### ERUR #### [facility] [address] [place] [address] Dr. Alejandra TrotterNitrite Ql (U)NegativeNormalNEGATIVEUniversity Hospitals Parma Medical CenterComment on above:Performed By: #### ERUR #### [facility] [address] [place] [address] Dr. Alejandra TrotterpH (U)5.0 [pH]Normal5-9[facility] Medical CenterComment on above: Performed By: #### ERUR #### [facility] [address] [place] [address] Dr. Alejandra TrotterSPEC GRAVITY1.595Mausxv0.005-<=1.025The [facility] CenterComment on above:Performed By: #### ERUR #### [facility] [address] [place] [address] Dr. Alejandra Johnson PROTEINNegativermalNEGATIVE/ TRACEUniversity Hospitals Parma Medical Center Comment on above:Performed By: #### ERUR #### [facility] [address] [place] [address] Dr. Alejandra Emmanuel MICRO INDNOT INDICATEDOur Lady of Mercy Hospital - AndersonComment on above:Performed By: #### ERUR #### [facility] [address] [place] [address] Dr. Alejandra Wilkesbilinogen Qn (U)0.2 {Rui'U}/dLNormal0.2 - 1.0The [facility] on above:Performed By: #### ERUR #### [facility] [address] [place] [address] Dr. Alejandra TrotterLACTATE/LACTIC ACIDon 77-82-2032Akajgri [Moles/Vol]1.1 mmol/L Normal0.4-2.0The [facility] on above:Performed By: #### LACT #### [facility] [address] [place] [address] Dr. Alejandra TrotterPOINT OF CARE GLUCOSEon 93-34-2868Pgbiovg [Mass/Vol]322 mg/dL Critically fswh25-026Zoz [facility] on above:Performed By: #### POCGLUC #### [facility] [address] [place] [address] Dr. Alejandra TrotterPROF 14(COMP METB)on 47-73-2112Bdkhnmy [Mass/Vol]3.6 g/dLNormal 3.4-5.0The [facility] on above:Performed By: #### HSTROPN, CMP #### [facility] [address] [place] [address] Dr. Alejandra TrotterAlbumin/Globulin [Mass ratio]0.9 {ratio}NormalThe [facility] on above:Performed By: #### HSTROPN, CMP #### [facility] [address] [place] [address] Dr. Alejandra MartP [Catalytic activity/Vol]107 U/ZIaflgq39-676Aww [facility] on above:Performed By: #### HSTROPN, CMP #### [facility] [address] [place] [address] Dr. Alejandra MartT [Catalytic activity/Vol]14 U/DCtvykx84-37Jkr [facility] on above:Performed By: #### HSTROPN, CMP #### [facility] [address] [address] [address] Alejandra Matthewson gap [Moles/Vol]20.6 mmol/LNormalThe [facility] Comment on above:Performed By: #### HSTROPN, CMP #### [facility] [address] [place] [address] Dr. Alejandra TrotterAST [Catalytic activity/Vol]11 U/LCritically wpr85-17Irp [facility] CenterComment on above:Performed By: #### HSTROPN, CMP #### [facility] [address] [place] [address] Dr. Alejandra TrotterBilirubin [Mass/Vol]0.4 mg/dLNormal0.2-1.0[facility] Comment on above:Performed By: #### HSTROPN, CMP #### [facility] [address] [place] [address] Dr. Alejandra TrotterCalcium [Mass/Vol]9.0 mg/dLNormal8.5-10.1[facility] Comment on above:Performed By: #### HSTROPN, CMP #### [facility] [address] [place] [address] Dr. Alejandra TrotterChloride [Moles/Vol]97 mmol/LCritically jsd30-006Ukj [facility] CenterComment on above:Performed By: #### HSTROPN, CMP #### [facility] [address] [place] [address] Dr. Alejandra TrotterCO2 [Moles/Vol]19.7 mmol/LCritically low21.0-32.0The [facility] CenterComment on above:Performed By: #### HSTROPN, CMP #### [facility] [address] [place] [address] Dr. Alejandra TrotterCreatinine [Mass/Vol]0.83 mg/dLNormal0.55-1.02The [facility] CenterComment on above:Performed By: #### HSTROPN, CMP #### [facility] [address] [address] [address] Alejandra NealGFR-AF MARTINIQUAIS>60Normal>=60The [facility] CenterComment on above:Performed By: #### HSTROPN, CMP #### [facility] [address] [address] [address] Alejandra NealGFR-NON AF MARTINIQUAIS>60Normal>=60The [facility] CenterComment on above:Performed By: #### HSTROPN, CMP #### [facility] [address] [place] [address] Dr. Alejandra TrotterGlobulin (S) [Mass/Vol]4.2 g/dLNormalThe [facility] CenterComment on above:Performed By: #### HSTROPN, CMP #### [facility] [address] [place] [address] Dr. Alejandra TrotterGlucose [Mass/Vol]389 mg/dLCritically adgz15-090Hnb [facility] CenterComment on above:Performed By: #### HSTROPN, CMP #### [facility] [address] [place] [address] Dr. Alejandra TrotterPotassium [Moles/Vol]4.3 mmol/LNormal3.5-5.1The [facility] Comment on above:Performed By: #### HSTROPN, CMP #### [facility] [address] [place] [address] Dr. Alejandra TrotterProtein [Mass/Vol]7.8 g/dLNormal6.4-8.2The [facility] Comment on above:Performed By: #### HSTROPN, CMP #### [facility] [address] [place] [address] Dr. Alejandra TrotterSodium [Moles/Vol]133 mmol/LCritically luf235-660Nvm [facility] on above:Performed By: #### HSTROPN, CMP #### [facility] [address] [place] [address] Dr. Alejandra TrotterUrea nitrogen [Mass/Vol]5.0 mg/dLCritically low7.0-18.0The [facility] Medical Centerment on above:Performed By: #### HSTROPN, CMP #### [facility] [address] [address] [address] Alejandra TrotterUrea nitrogen/Creatinine [Mass ratio]6.0 mg/mgNormalThe [facility] CenterComment on above:Performed By: #### HSTROPN, CMP #### [facility] [address] [address] [address] Alejandra TrotterSYMPTOMATIC COVID-19 ANTIGENon 22-23-8750UKQ StatementSEE BELOW NormalThe [facility] on above:Result Comment: This test has not [...] is revoked sooner.Performed By: #### CVDAGS #### [facility] [address] [address] [address] Alejandra Wilkerson-CoV-2 (COVID-19) RNA NEENA+probe Ql (Unsp spec)NegativeNormal NEGATIVEThe [facility] CenterComtrinity health [facility] on above:Performed By: #### CVDAGS #### [facility] [address] [place] [address] Dr. Alejandra Valladares, HIGH SENSITIVITYon 69-29-8388TJQRXM0.6 pg/mLNormal 4.0-51.3The [facility] on above:Result Comment: CUT-OFF POINTS HAVE BEEN ESTABLISHED BASED ON THE FOURTH UNIVERSAL DEFINITIONS OF MYOCARDIAL INFARCTION. THE UPPER REFERENCE LIMIT (URL) OF TROPONIN, DEFINED THE 99TH PERCENTILE OF cTnI DISTRIBUTION IN A REFERENCE POPULATION, HAS BEEN CONFIRMED THE DECISION THRESHOLD FOR [place] DIAGNOSIS.Performed By: #### HSTROPN, CMP #### [facility] [address] [address] [address] Alejandra TrotterXR CHEST 2 Von 25-75-6955KB CHEST 2 VEXAMINATION: XR CHEST 2 V [...] Electronically authenticated by: LORETA MACKENZIE Date: 2022-10-19 21:48[facility] - AndersonCOVID Quick Testingon 32-42-4173RfjoczEfllgekoUzsiy [employer] Other Vital Signs Date TimeVital SignValuePerforming QgqkjpimuHqdpefue24-77-3160 13:44-0400Body jleliq319.2 Leonard Christianson MD Work Phone: [phone] HospitalZedyndvjgl63-84-0629 13:44-0400Body mass index (BMI) [Ratio]32.42 kg/n9CszktMeghna Christianson MD Work Phone: [phone] [place], [place] [address]Lxaczhvjcy40-54-2280 13:44-0400Body .89 kgMeghna Christianson MD Work Phone: [phone] [place], [place] [address]Vydtgfjins97-13-1727 13:44-0400Heart rate99 /min Meghna Christianson MD Work Phone: [phone] [place], [place] [address]Rximpohqhz74-69-7692 13:44-0400Respiratory rate20 /mineMghna Christianson MD Work Phone: [phone] [place], [place] [address]Yuhpiizkip46-93-4915 13:44-3746CvI2% (BldA) [Mass fraction]99 %Meghna Christianson MD Work Phone: [facility] HospitalWgdyzsgyoq15-16-5991 13:32-0400Body obxpgd586.7 Kavitha Keen MD Work Phone: [facility] [place] Mbzqkh42-08-5524 13:32-0400Body mass index (BMI) [Ratio]26.33 kg/e0ZelfaCarmen Keen MD Work Phone: [facility] [place] Xtceow10-20-6248 13:32-0400Body angttl87.56 kgCarmen Keen MD Work Phone: [facility] [place] Piwcsb29-28-6365 13:32-0400Diastolic blood phckcmqe49 mm[Hg]Carmen Keen MD Work Phone: [facility] [place] Suatlj98-56-8504 13:32-0400Systolic blood mm[Hg]Carmen Keen MD Work Phone: [facility]07-10-2025 13:18-0400Body ngcjwa136.3 cmMelany Raedy DO Work Phone: [facility]07-10-2025 13:18-0400Body mass index (BMI) [Ratio]24.32 kg/h9Qyhici Raedy DO Work Phone: [facility] [place] Uktzmm22-13-8035 13:18-0400Body weight 74.71 kgMelany Raedy DO Work Phone: [facility] [place] Rvlwze02-69-3742 13:18-0400Diastolic blood icvmuuxt37 mm[Hg]Stanton Raedy DO Work Phone: [facility] [place] Kynqvq98-28-1692 13:18-0400Heart rate89 /minMelany Raedy DO Work Phone: [facility]07-10-2025 13:18-9208QlZ1% (BldA) [Mass fraction]97 %Stanton Raedy DO Work Phone: [facility]07-10-2025 13:18-0400Systolic blood nmyjzjdu783 mm[Hg]Stanton Raedy DO Work Phone: [facility]06-19-2025 06:47-0400Body irmzojdqorz07.7 [degF]Rikki Oscar MD Work Phone: [phone]-Jordyn [facility]06-19-2025 06:47-0400Diastolic blood ogeafahc92 mm[Hg]Rikki Oscar MD Work Phone: [phone]-[facility]06-19-2025 06:47-0400Heart rate77 /Rachel Oscar MD Work Phone: [phone]-[facility] HospitalLenora[facility]06-19-2025 06:47-0400 Respiratory rate16 /Rachel Oscar MD Work Phone: [phone] [place], [place] [address]006-19-2025 06:47-6450AqQ6% (BldA) [Mass fraction]96 %Rikki Oscar MD Work Phone: [phone]-[facility] HospitalK[facility]06-19-2025 06:47-0400Systolic blood ikejswgl766 mm[Hg]Rikki Oscar MD Work Phone: [phone])195-Jordyn [facility]06-19-2025 06:23-0400Body emppjz733.7 Michele Oscar MD Work Phone: [phone]-Jordyn [facility]06-19-2025 05:45-0400Body mass index (BMI) [Ratio]23.72 kg/m2Rikki Oscar MD Work Phone: [phone]-Jordyn [facility]06-19-2025 05:45-0400Body yrster70.76 kgRikki Oscar MD Work Phone: [phone]-Jordyn [facility]06-18-2025 19:51-0400Body yhezlvfxpio12Mxfx Seamons MD Work Phone: [phone]-Jordyn [facility]06-04-2025 12:54-0400Body tfihft212.7 [facility]06-04-2025 12:54-0400Body mass index (BMI) [Ratio]23.05 kg/m2[facility]06-04-2025 12:54-0400Body vscawd08.77 kgPwsCrystal Clinic Orthopedic Center06-04-2025 12:54-0400Diastolic blood gyhpbarg47 mm[Hg][facility] 12-06-2024 12:54-0400Systolic blood fhmefkrs078 mm[Hg][facility]04-16-2025 09:23-0400Diastolic blood hyjvhplb00 mm[Hg]Flory Toure DO Work Phone: [facility]04-16-2025 09:23-0400Systolic blood yxlioqef34 mm[Hg]Flory Toure DO Work Phone: [facility]04-16-2025 07:48-0400Body qddbpltukwb17.6 [degF]Flory Toure DO Work Phone: [facility]04-16-2025 07:48-0400Heart rate75 /minJaveria Toure DO Work Phone: [facility]04-16-2025 07:48-0400 Respiratory rate20 /minJaveria Toure DO Work Phone: [facility]04-16-2025 07:48-0093KcI2% (BldA) [Mass fraction]97 %Flory Toure DO Work Phone: [facility]04-16-2025 04:30-0400Body mass index (BMI) [Ratio]20.98 kg/z2Chuxbnz Toure DO Work Phone: [facility]04-16-2025 04:30-0400Body ipqaff96.6 kgJaveria Toure DO Work Phone: [place] [address] [place] [address]-14-2025 22:51-0400Body lhuatx091.7 cmJaveria Toure DO Work Phone: [facility] [employer] [facility] Orthopedic CenterJtfavn00-82-4438 09:29-0400Body wvryvs625.2 cmGomez BANGURA Work Phone: [facility] HospitalCloud Dynamics Elsknb29-47-7060 09:29-0400Body mass index (BMI) [Ratio]21.68 kg/d8BfvdbxGomez Green APRN-[employer] OPERATOR Work Phone: [facility] Hospital[facility] Qlijgd58-55-2018 09:29-0400Body twxnobngngq56.2 [degF]Gomez Green SEARCH MANAGER-COILED TUBING OPERATOR Work Phone: [facility] Tilcsb37-88-5858 09:29-0400Body icpdfv51.78 kgBrniall Green SEARCH MANAGER-COILED TUBING OPERATOR Work Phone: [facility] Yyzgzl05-61-5984 09:29-0400Diastolic blood ebiaqest72 mm[Hg]Gomez Green APRN-COILED TUBING OPERATOR Work Phone: [facility] [place] Bobvrm64-21-6112 09:29-0400Heart rate 110 /minGomez Green APRN-COILED TUBING OPERATOR Work Phone: [facility] Fdptvb69-11-4802 09:29-4826QuF1% (BldA) [Mass fraction]97 %Gomez Green APRN-COILED TUBING OPERATOR Work Phone: [facility] Iqwgea61-85-9484 09:29-0400Systolic blood uhittshr457 mm[Hg]Gomez Green APRN-COILED TUBING OPERATOR Work Phone: [facility] Mwbgyn59-68-3681 08:22-0500Body .7 cmGomez Green APRN-COILED TUBING OPERATOR Work Phone: [facility] Ftgllo80-64-2990 08:22-0500Body mass index (BMI) [Ratio]23.11 kg/r4BvkurkGomez Green SEARCH MANAGER-COILED TUBING OPERATOR Work Phone: [facility] Cbzeva43-85-2025 08:22-0500Body adclodnhauy51.5 [degF]Gomez Green SEARCH MANAGER-COILED TUBING OPERATOR Work Phone: [facility] Fukelo13-01-1843 08:22-0500Body jbzkqu23.95 kgBrniall Green SEARCH MANAGER-COILED TUBING OPERATOR Work Phone: [facility] [place] Epsjwr22-04-4676 08:22-0500Diastolic blood bubvfens96 mm[Hg]Gomez Green APRN-COILED TUBING OPERATOR Work Phone: [facility] [place] Tqkttw32-37-3066 08:22-0500Heart rate 98 /minGomez Green APRN-COILED TUBING OPERATOR Work Phone: [facility] [place] Wwqgot95-12-7750 08:22-9730PbE2% (BldA) [Mass fraction]98 %Gomez Green APRN-COILED TUBING OPERATOR Work Phone: [facility] [place] Fmaogt96-61-2539 08:22-0500Systolic blood jiiaexxa629 mm[Hg]Gomez Green APRN-COILED TUBING OPERATOR Work Phone: [facility] [place] Jrnbox89-88-6648 13:04-0500Body bjfjxi629.7 cmThao Perez DO Work Phone: [facility] [place] Uepnrl44-41-7222 13:04-0500Body mass index (BMI) [Ratio]23.17 kg/y7DjkkmTeri Perez DO Work Phone: [facility] [place] Koudgk44-44-6507 13:04-0500Body .13 kgTeri Perez DO Work Phone: [facility] [place] Iqqhci82-80-2845 13:04-0500Diastolic blood ogeformu86 mm[Hg]Teri Perez DO Work Phone: [facility] [place] Skjgvb62-68-1593 13:04-0500Systolic blood euioownl200 mm[Hg]Teri Perez DO Work Phone: [facility] [place] Jinsut82-84-6902 10:52-0500Body cefoxe380.7 cmGomez Green APRN-COILED TUBING OPERATOR Work Phone: [facility] [place] Fjtxpw77-74-0735 10:52-0500Body mass index (BMI) [Ratio]23.16 kg/h3KfttxzGomez Green APRN-COILED TUBING OPERATOR Work Phone: [facility] [place] Xymwed31-71-5237 10:52-0500Body mmpjxguzejm84.6 [degF]Gomez Green APRN-LYNNETTE Work Phone: [facility] [place] Hkrczk26-08-4714 10:52-0500Body juyewz25.08 kgGomez Green APRN-LYNNETTE Work Phone: [facility] [place] Tqcbgc95-50-9275 10:52-0500Diastolic blood iefqawxn10 mm[Hg]Gomez Green APRN-LYNNETTE Work Phone: [facility] [place] Xoqowj15-82-5830 10:52-0500Heart rate 100 /minGomez Green APRN-LYNNETTE Work Phone: [facility] [place] Zobhkx53-06-1707 10:52-2588BmB9% (BldA) [Mass fraction]97 %Gomez Green APRN-LYNNETTE Work Phone: [facility] [place] Qtjohj55-22-6596 10:52-0500Systolic blood bvprfroq044 mm[Hg]Gomez Green APRN-LYNNETTE Work Phone: [facility] [place] Gftgyi93-93-6310 11:32-0500Body bunpwx935.3 cmStanton Kohler DO Work Phone: [facility] [place] Kflcnj58-38-2876 11:32-0500Body mass index (BMI) [Ratio]36.39 kg/a4WzmhsfStanton Kohler DO Work Phone: [facility] [place] Iwcedf29-65-6472 11:32-0500Body whnblzmzorf36.1 [degF]Stanton Kohler DO [facility] Adlree69-08-4632 11:32-0500Body weight 111.77 kgStanton Kohler DO Work Phone: [facility] [place] Qoumsa71-47-4633 11:32-0500Diastolic blood motvpvzo67 mm[Hg]Stanton Johnsony DO Work Phone: [facility]01-21-2022 11:32-0500Heart rate82 /Yanira Kohler DO Work Phone: [facility]01-21-2022 11:32-0500Respiratory rate16 /Yanira Kohler DO Work Phone: [facility]01-21-2022 11:32-5356NtN5% (BldA) [Mass fraction]100 %Stanton Kohler DO Work Phone: [facility]01-21-2022 11:32-0500Systolic blood uuqpruzk905 mm[Hg]Stanton Kohler DO Work Phone: [facility]01-06-2022 12:30-0500Body height 175.3 cmDaalyssia Juares Jr., DO Work Phone: 1(737)[address] [place], [place] 6487301-06-2022 12:30-0500Body mass index (BMI) [Ratio]36.48 kg/r9Iyrnealyssia Juares Jr., DO Work Phone: 1(845)[address] [place], [place] 6487301-06-2022 12:30-0500Body empkyaimbpc24.01 [degF]Loreta Juares Jr., DO Work Phone: 1(304)[address] [place], [place] 6487301-06-2022 12:30-0500Body weight 112.04 kgDavidiana Juares Jr., DO Work Phone: 1(994)[address] [place], [place] 6487301-06-2022 12:30-0500Diastolic blood jjxauefr79 mm[Hg]Loreta Juares Jr., DO Work Phone: 1(777)[address] [place], [place] [address]487301-06-2022 12:30-0500Systolic blood mm[Hg]Loreta Juaers Jr., DO Work Phone: 1(866)[address] [place], [place] [address]7310-29-2021 17:15-0400Body height 171.45 Brian Whitehead Other [employer] Other 10-29-2021 17:15-0400Body mass index (BMI) [Ratio] 33.94 kg/c0XzmwwhLenora Whitehead Other [employer] Other 10-29-2021 17:15-0400Body ipvdjmypgrm27.5 [degF]Lenora Whitehead Other [employer] Other 10-29-2021 17:15-0400Body ohares14.79 kgLenora Whitehead Other [employer] Other 10-29-2021 17:15-0400Respiratory rate18 /minLenora Whitehead Other [employer] Other 10-29-2021 17:15-9561QhA7% (BldA) [Mass fraction]98 % Lenora Whitehead Other [employer] Other Encounters Encounter DateEncounter TypeCare ProviderFacilityStart: 04-26-2025 End: 96-53-9170riqayhwlvgIhjbmv Sue Cramer SPORTS MANAGEMENT PROFESSORCaesar Work Phone: 6(717)568-3541133-2822-Awwtqudjr[address] [place] [address] NeurologyStart: 04-26-2025 End: 70-38-2606Aknnmlo encounter procedureChristopher Clemente [facility] Neurology Work Phone: Start: 04-16-2025 End: 97-97-9267Clewkd outpatient new 45 minutesMeghna Christianson MD Work Phone: noms [place] EndocrinologyComment on above: Postablative hypothyroidism (Primary Dx); Thyroid noduleStart: 04-16-2025 End: 38-69-3410Dsholfdelaney Christianson MD Work Phone: [facility] [place] EndocrinologyStart: 04-16-2025 End: 85-72-3401Votpla Kaley Christianson MD Work Phone: [facility] EndocrinologyStart: 04-16-2025 End: 92-19-3703koutqnebtyZLACOFer Madera AvailableStart: 02-27-2025 End: 29-12-6261Nliuhy [facility] Physicians Obstetrics/GynecologyComment on above:Abnormal TSH (Primary Dx)Start: 02-12-2025 End: 10-88-4690Lyjxki [facility] Physicians Obstetrics/GynecologyComment on above:Elevated TSH (Primary Dx); Low serum prolactinStart: 02-09-2025 End: 68-57-3993Tpteac-up Zully Pete SEARCH MANAGER-COILED TUBING OPERATOR Work Phone: [facility] Physicians Obstetrics/GynecologyComment on above:Progesterone, Estradiol, Prolactin, Additional followed-up results: 6 Start: 02-08-2025 End: 87-99-8766bqilpnorpxXFYXOHThe University of Toledo Medical Centertart: 02-08-2025 End: 57-06-6965Sjixwymvtv hospital [facility] Laboratory Schedule [facility] LABComment on above:Peripheral neuropathy due to disorder of metabolism; Weakness of both legsStart: 01-30-2025 End: 34-68-4625Dbserk outpatient visit 15 minutesCarmen Keen MD Work Phone: [facility] Physicians Obstetrics/GynecologyComment on above:Postmenopausal syndrome (Primary Dx)Start: 01-30-2025 End: 72-87-0225bhprsdtgeyITNEQLong [facility] Ambulatory PPGStart: 01-12-2025 End: 15-46-9163Iuggcj Lara Pete SEARCH MANAGER-COILED TUBING OPERATOR Work Phone: [facility] Physicians Obstetrics/GynecologyComment on above:Kiesha glabrata infection (Primary Dx)Start: 01-11-2025 End: 61-13-8771Fypyaw outpatient new 30 minutesStanton Kohler DO Work Phone: [facility] N JESSA AVEComment on above: Weakness (Primary Dx)Start: 37-84-6503nvpeznvwpuAJQRBI RAEDYAvita Ridgeview HospitalStart: 01-10-2025 End: 38-77-2426Ygjmfqxgn department patient visitMICHAEL Longt HospitalStart: 50-47-4916bzwizorbvxQOIMUX Libby Jedanjum Tabiona HospitalStart: 12-25-2024 End: 15-53-8982tbwnovcdpmQZGE KROTZERMercy Health St. [facility] HospitalStart: 12-25-2024 End: 51-76-7060Odtwftvgkw hospital visit by [facility] Ultrasound [facility] UltrasoundComment on above:Nipple dischargeStart: 12-20-2024 End: 75-50-4153Fhmpckvvyi and management of inpatientRikki Oscar MD Work Phone: [facility] MED SURGComment on above:Diabetic ketoacidosis without coma associated with type 2 diabetes mellitus (HCC) (Primary Dx)Start: 12-20-2024 End: 84-40-1987Rzowuk Lara Pete SEARCH MANAGER-COILED TUBING OPERATOR Work Phone: [facility] Obstetrics/GynecologyComment on above:Vasomotor symptoms due to menopause (Primary Dx); Brain fog; IrritabilityStart: 12-12-2024 End: 25-98-8080Jiaxpt Lara Pete SEARCH MANAGER-COILED TUBING OPERATOR Work Phone: [facility] Obstetrics/GynecologyComment on above:Kiesha glabrata infection; Vaginal yeast infectionHistory of uterine fibroidStart: 12-08-2024 End: 57-35-3949vosdaukkhiKZCGMU OGECHHenry County Hospital HospitalStart: 12-08-2024 End: 34-34-2010Dzieupnmpk hospital visit by [facility] Mri [facility] LABComment on above:Lumbar radiculopathyThyroid noduleAcute pain of left kneeStart: 12-07-2024 End: 53-20-0331Bwrcif Shirley Solis CMAProMedica Physicians Obstetrics/GynecologyComment on above:Nipple discharge (Primary Dx)Kiesha glabrata infection (Primary Dx); Vaginal yeast infectionStart: 12-06-2024 End: 88-49-8088Gyfvvoytf encounterJessica Pete APRN-COILED TUBING OPERATOR Work Phone: [facility] Obstetrics/GynecologyStart: 12-06-2024 End: 58-75-6218Cgbllmp encounter procedurePwsc [facility] Start: 12-06-2024 End: 39-31-1563Stjvsmrw preventive med est patient 40-64yrsP[facility] Ob Heavy Equipment Field Mechanic [facility] - CyldeComment on above:Well woman exam with routine gynecological exam (Primary Dx); Screening mammogram for breast cancer; Screening for STD (sexually transmitted disease); Acute vaginitis; History of uterine fibroid; Nipple discharge; Pelvic pain; Screening for colon cancerStart: 12-06-2024 End: 49-16-8398hvmqjkkbosEFXJFGroup Health [facility] Ambulatory PPGStart: 98-10-6512Fndbimvza for gynecological examination (general) (routine) without abnormal findingsAnderson [facility]atorium Ambulatory PPGStart: 11-14-2024 End: 93-24-0577vqanoqcwzrLOQJEHVMary Rutan Hospitaltart: 11-14-2024 End: 54-07-9005Bbtpgsxsxi hospital visit by Pilar Green APRN - COILED TUBING OPERATOR Work Phone: [facility] LABComment on above:Swelling of both lower extremities; Type 2 diabetes mellitus with hyperglycemia, without long-term current use of insulin (HCC)Start: 11-14-2024 End: 97-93-9408Tadxbruvc encounterDabert Veterans [facility] Call CenterComment on above:ResultsStart: 10-19-2024 End: 63-07-9041Psygzrxvl encounterDiane Restrepo RN Work Phone: [facility] Internal Medicine - Family MedicineComment on above:Transition Of CareStart: 10-16-2024 End: 57-56-7872Wkwbxjxjmz and management of inpatientJaveria Quinton Toure DO Work Phone: mthz [facility]ENTERU MED SURGComment on above:Swelling of both lower extremities (Primary Dx); Edema, unspecified type; Type 2 diabetes mellitus with hyperglycemia, without long-term current use of insulin ([facility])Start: 10-29-2023 End: 52-10-8007Laxcweiip encounterAnny Vee DEE DEESumma Health [facility] Physicians Internal Medicine - Family MedicineComment on above:Preventative ScreeningStart: 10-19-2023 End: 48-08-6659Qbeakk OnlyGomez Green SEARCH MANAGER-COILED TUBING OPERATOR Work Phone: [facility] Physicians Internal Medicine - [facility] Hospitaltart: 10-13-2023 End: 71-39-0477reqxtmdqmbZUPZXI L RAUCHDunlap Memorial Hospitaltart: 10-13-2023 End: 39-68-2363Qcwahd outpatient visit 25 minutesGomez Green SEARCH MANAGER-COILED TUBING OPERATOR Work Phone: [facility] Physicians Internal Medicine - Family MedicineComment on above:Acquired hypothyroidism (Primary Dx); Type 2 diabetes mellitus with hyperglycemia, without long-term current use of insulin ([facility]); Goiter; Smoking; History of Sjogren's disease ([facility])Start: 09-01-2023 End: 63-63-4273dldeqvqpgbKEKGOH L RAKIMBERLYDunlap Memorial Hospitaltart: 09-01-2023 End: 29-75-8242Honoyau encounter statusGomez Green SEARCH MANAGER-COILED TUBING OPERATOR Work Phone: [facility] Work Phone: Start: 09-01-2023 End: 34-04-8252Qrykhobn preventive med est patient 40-64yrsGomez Souza Norma SEARCH MANAGER-COILED TUBING OPERATOR Work Phone: [facility] Physicians Internal Medicine - Family MedicineComment on above:Wellness examination (Primary Dx); Other specified diabetes mellitus with hyperglycemia, without long-term current use of insulin ([facility]); Graves disease; Acquired hypothyroidism; Special screening for malignant neoplasm of colon; SmokingStart: 08-31-2023 End: 04-22-7710Iijvlrjvk for gynecological examination (general) (routine) without abnormal findingsTeri Perez DO Work Phone: [facility] HospitalSankofa Community Development Corporationtart: 08-31-2023 End: 80-79-1488Wnmvmrg encounter procedureTanjorge Perez DO Work Phone: [facility] HospitalNewsela [facility] Clare's Hospitaltart: 08-31-2023 End: 73-12-7735Lycvubbw preventive med est patient 40-64yrsThao Perez DO Work Phone: [facility] Physicians Obstetrics/GynecologyComment on above:Well woman exam with routine gynecological exam (Primary Dx); Screening mammogram for breast cancer; Cervical smear, as part of routine gynecological examination; History of uterine fibroid; Menorrhagia with regular cycle; History of Graves' disease; History of cervical cancer; Smoker; Weight loss; History of Sjogren's disease ([facility])Start: 99-43-6494Mhoswc OnlyGomez Green SEARCH MANAGER-COILED TUBING OPERATOR Work Phone: [facility] Physicians Internal Medicine - Family [facility] Shelby Countytart: 08-27-2023 End: 69-74-5762hfqcelqsazIVJGCI L RAUCHDunlap Memorial Hospitaltart: 08-27-2023 End: 06-22-3542Ufxsoe outpatient new 45 minutesGomez Green SEARCH MANAGER-COILED TUBING OPERATOR Work Phone: [facility] Physicians Internal Medicine - Family MedicineComment on above:Encounter for medical examination to establish care (Primary Dx); Graves' disease; Acquired hypothyroidism; Sjogren syndrome, unspecified ([facility]); Goiter; Malignant neoplasm of cervix, unspecified site ([facility]); Hyperglycemia; Hyperlipidemia, unspecified hyperlipidemia type; Smoking; Nail fungus; HyperpigmentationStart: 08-27-2023 End: 10-86-6066Mjkjtpm encounter statusGomez Green SEARCH MANAGER-COILED TUBING OPERATOR Work Phone: [facility] HospitalDep[facility] Work Phone: Start: 10-19-2022 End: 44-46-5684kokdkltwugWA DOCTOR MISCFacility:O9Hpqkj: 03-17-2022 End: 52-39-9398jlsylijirwRD DOCTOR MISCFacility:Q2Zhrcq: 07-25-2021 End: 49-70-3674Ktivpk outpatient visit 40 minutesMelany F Raedy DO Work Phone: [facility] [place] NeurologyComment on above: Nocturnal leg movements (Primary Dx)Start: 07-10-2021 End: 70-40-7514Zhbtkv outpatient new 45 minutesDavid Johnathan Juares DO Work Phone: [employer] RheumatologyComment on above:History of Sjogren's disease (Primary Dx); Hyperpigmentation of skin of cheek; Xerostomia; Dry mouth; Dry eyes; Telangiectasia of face; Hypothyroidism, unspecified type; Hyperglycemia; Basedow's disease; Keratoconjunctivitis sicca; Osteoarthritis of right hand, unspecified osteoarthritis type; Osteoarthritis of left foot, unspecified osteoarthritis type; Lumbar degenerative disc diseaseStart: 05-02-2021(URG) Urgent Care VisitPamela DymondFPG [facility]gent [facility] Tommy Procedures DateProcedureProcedure DetailPerforming ClinicianStart: 02-08-2025 End: 99-44-7041Uypwmkmt kinase totalKecesar Araiza MD Work Phone: start: 33-01-0743GFDTRKS B12 & FOLATEKempramiro Araiza MD Work Phone: start: 63-74-3624Fy breast uni real time with image limitedJessica Pete APRN - SPORTS MANAGEMENT PROFESSOR Work Phone: [phone]: 12-25-2024 End: 83-22-5921Gfyjxptqun mammography computer-aided detcj Janett Pete APRN - SPORTS MANAGEMENT PROFESSOR Work Phone: Start: 66-88-5216DFPNZWM, WHOLE BLOODMark Pk Herron MD Work Phone: Start: 56-41-9750YLHGVSK, WHOLE BLOODMark Pk Herron MD Work Phone: Start: 56-09-6904Iqmton ecg 1-3 leads w/interpretation & reportUnknown Provider ResultStart: 69-98-4051Ftujd count complete auto&auto difrntl wbcMegan L Heather SEARCH MANAGER - COILED TUBING OPERATOR Work Phone: Start: 44-48-1297LWGVALW, WHOLE BLOODMark Pk Herron MD Work Phone: Start: 06-00-6432Vczlu dip stick/tablet reagent auto microscopyMegan Libby Romero SEARCH MANAGER - COILED TUBING OPERATOR Work Phone: Start: 09-17-8087Sattj metabolic panel calcium total Rikki Oscar MD Work Phone: Start: 69-32-0088EQTVEMB, WHOLE BLOODRikki Oscar MD Work Phone: Start: 12-20-2024 End: 54-40-4452Yl head/brain w/o contrast materialRikki Oscar MD Work Phone: Start: 46-17-6817Wye routine ecg w/least 12 lds w/i&r Rikki Oscar MD Work Phone: Start: 36-31-3015Egpop gases any combination ph pco2 po2 co2 prx3TwpwRikki Oscar MD Work Phone: Start: 98-49-7321Hislifmouruqe metabolic panelRikki Oscar MD Work Phone: Start: 25-50-4405UWVCXSJ, DEMETRIUS Oscar MD Work Phone: Start: 15-76-3417Tv soft tissue head & neck real time imge Leda Clancy MD Work Phone: Start: 52-59-0492Iidrqdkfrv examination knee 1/2 views Shelley Clancy MD Work Phone: Start: 20-63-8571Tcepevmloiqyw metabolic panelUnknown Provider ResultStart: 20-32-5370Mofrp albumin quantitativeUnknown Provider ResultStart: 70-85-6683TNRFXGK, WHOLE BLOODChrisstephanie Avila MD Work Phone: Start: 08-56-1204MUAGTUH, WHOLE BLOODChemilie Avila MD Work Phone: Start: 97-46-9212Kxwdn of thyroid stimulating hormone tshShadolfo Hernan HarrellBhupinder [employer] Work Phone: Start: 51-56-1894Dhpcno ecg 1-3 leads w/interpretation & reportUnknown Provider ResultStart: 30-17-9738Adelt of osmolality urineJill E Hemmelgarn DO Work Phone: Start: 27-25-4561Upmti albumin quantitativeJill E Hemmelgarn DO Work Phone: Start: 10-17-2024 End: 13-98-5691AMCYIOM, WHOLE BLOODChristopher Diana Avila MD Work Phone: Start: 67-43-6046Pf angio abd&plvis cntrst mtrl w/wo cntrst imgShijordy Hernan HarrellBhupinder [employer] Work Phone: Start: 10-17-2024 End: 76-03-8711Eqdkls ecg 1-3 leads w/interpretation & reportUnknown Provider ResultStart: 03-56-4108Olkgs dip stick/tablet reagent auto microscopyMegan Libby Heather [employer] Work Phone: Start: 83-43-8712Suwnegvyeo glycosylated g1lWfbng L Heather [employer] Work Phone: Start: 52-87-5222HBDHDVF, WHOLE BLOODChristopher Diana Avila MD Work Phone: Start: 10-16-2024 End: 45-69-9377Dzr routine ecg w/least 12 lds i&r onlyJaveria J Toure DO Work Phone: Start: 63-23-0371Eexdvzthxqgdm metabolic panelJaveria J Toure DO Work Phone: Start: 02-51-9747Qfszg depression screening assessment Gomezniall Green [employer] Work Phone: Start: 37-55-7656Fzrxv depression screening assessment Gomez Norma [employer] Work Phone: Start: 70-12-3789Vigydwrexwet [Mass/volume] in Urine by Test stripGomez Green SEARCH MANAGERDutyCalculator Work Phone: Start: 73-74-6924Lhciy depression screening assessment Teri Perez DO Work Phone: Start: 39-99-5643Edsvjrwahoh observation [Identifier] in Cervix by Cyto stainGomez Green SEARCH MANAGERDutyCalculator Work Phone: Start: 16-33-3770Iaosf depression screening assessment Gomez Green SEARCH MANAGERDutyCalculator Work Phone: Start: 16-48-7896QprdhuqvxilJgzwqy Rauch [employer] Work Phone: Plan of Treatment DateCare ActivityDetailAuthorStart: 37-90-0267Jlzsmvcxq for malignant neoplasm of breastBreast cancer screenBon [facility] ThermogenicsStart: 51-14-2514Bozrctckp for malignant neoplasm of cervixPap SmearSumma Health [facility] Vitt[place] SystemStart: 15-46-9841Lycvwve CounselingTobacco CounselingTriHealth McCullough-[facility] SystemStart: 23-37-6868Obvuc BMI ScreeningAdult BMI ScreeningSumma Health [facility] Health SystemStart: 41-23-8325Gyldoyd ScreeningTobacco ScreeningSumma Health [facility] Health SystemStart: 01-03-2422Hocha BMI ScreeningAdult BMI ScreeningProDayton Osteopathic Hospitalca Health SystemStart: 64-93-0013Kaqzjxp ScreeningTobacco ScreeningBrown Memorial Hospitalca Health SystemStart: 51-84-3749Thfmxouuo for malignant neoplasm of breastMammogramTriHealth McCullough-Hy[facility] Hospital SystemStart: 80-51-3081URX test (Diabetes, CKD 3-4, OR last GFR 15-59)GFR test (Diabetes, CKD 3-4, OR last GFR 15-59)[facility] CenterStart: 12-06-2025 Adult BMI ScreeningAdult BMI ScreeningTriHealth McCull[facility] SystemStart: 12-06-2025 Tobacco ScreeningTobacco ScreeningTriHealth McCullough-[facility] SystemStart: 99-46-1776LWM test (Diabetes, CKD 3-4, OR last GFR 15-59)GFR test (Diabetes, CKD 3-4, OR last GFR 15-59)[facility]: 47-94-5974Kmkbk screening for protein Diabetic Alb to Cr ratio (uACR) testCarilion Franklin Memorial Hospital: 76-18-3454VMV test (Diabetes, CKD 3-4, OR last GFR 15-59)GFR test (Diabetes, CKD 3-4, OR last GFR 15-59)[facility]: 31-74-7405Aipqh screening for protein Diabetic Alb to Cr ratio (uACR) testSentara RMH Medical Centerart: 07-17-2025 End: 90-62-0576Lxkirys encounter jsuyufozb81/13/2026 2:30 PM EST Office Visit [facility] [address] [place] [phone] Meghna Christianson MD [address] [place] [address] [facility] EndocrinologyStart: 04-16-2025 End: 58-19-9083Xckmgbc encounter /13/2025 2:40 PM EDT Office Visit [facility] [address] [place] [address] Meghna Christianson MD [address] [place] [address] ArrivedDHAVAL Quintanilla EndocrinologyComment on above:ArrivedStart: 04-16-2025 End: 42-75-6159Hxbtmujartp [Units/volume] in Serum or PlasmaTSH Lab Routine Postablative hypothyroidism Expected: 04/16/2025 (Approximate), Expires: 04/16/2026NOPA HealthcareComment on above:Expected: 04/16/2025 (Approximate), Expires: 04/16/2026Start: 04-16-2025 End: 58-24-6450Prdnxbhgz (T4) free [Mass/volume] in Serum or PlasmaT4, free Lab Routine Postablative hypothyroidism Expected: 04/16/2025 (Approximate), Expires: 04/16/2026[facility] HealthcareComment on above:Expected: 04/16/2025 (Approximate), Expires: 04/16/2026Start: 04-16-2025 End: 36-18-8228Dfwbwhnvzqixvqiq (T3) Free [Mass/volume] in Serum or PlasmaT3, free Lab Routine Postablative hypothyroidism Expected: 04/16/2025 (Approximate), Expires: 04/16/2026[facility] Work Phone: Comment on above:Expected: 04/16/2025 (Approximate), Expires: 04/16/2026Start: 03-22-2025 End: 87-68-8376Gopzitj encounter vtzidpqvq45/18/2025 2:20 PM EDT Office Visit [facility] NEUROLOGY Part of [address] [place] [address] Trice Araiza MD [address] [place] [address] [address] [place] [address] Peripheral Neuropathy ; 1 mth follow up EEG, [facility] NEUROLOGY Part [facility] HospitalComment on above:Peripheral Neuropathy ; 1 mth follow up EEG, labsStart: 03-06-2025 End: 44-79-3367Vhohscp encounter opztksooc62/02/2025 2:15 PM EDT Office Visit [facility]ne[facility] [address] [place] [address] Carmen Keen MD [address] [place], [place] [id number] [facility] Obstetrics/GynecologyStart: 68-82-3886Oyttwbvkh vaccinationBrown Memorial Hospitalca [facility] SystemStart: 63-43-6774Msdilca CounselingTobacco CounselingTriHealth McCull[facility] SystemStart: 02-08-2025 End: 29-85-3497Oyikqeb encounter /07/2025 1:20 PM EDT Office Visit [facility] NEUROLOGY Part of [address] [place] [address] Trice Araiza MD [address] [place] [address] Dr Abbott [address] [place] [address] [facility] NEUROLOGY Part [facility] HospitalComment on above: ALSStart: 02-05-2025 End: 94-80-5182Hrpgkjm encounter zpivibhep00/04/2025 1:40 PM EDT Office Visit [facility] NEUROLOGY Part of [address] [place] [address] Trice Araiza MD [address] [place] [address] Dr Abbott [address] [place] [address] [facility] NEUROLOGY Part [facility] HospitalComment on above: ALSStart: 65-51-6953Ulyheybtg vaccinationBon [facility] SpringfieldStart: 01-30-2025 End: 04-35-6510Dzkmivo encounter kpkxbyhgc97/29/2025 1:30 PM EDT Office Visit [facility] [address] [place] [id number] Carmen Keen MD [address] [place] [address] [facility] Obstetrics/GynecologyStart: 01-18-2025 End: 69-26-6512LrwejavqyuruczieQZQ & NERVE CONDUCTION Neurology Routine Weakness Expected: 01/18/2025, Expires: 01/11/2026[facility] SystemComment on above: Expected: 01/18/2025, Expires: 01/11/2026Start: 77-70-5940Sldxadkyea A1c dwmdzqabivnY9R test (Diabetic or Prediabetic)[facility] CenterStart: 01-01-2025 End: 42-22-7785Vdrelcq encounter uymqpswil31/30/2025 4:45 PM EDT Appointment [facility] Physical Therapy [address] [place] [address] Star Bobby Stephanie, PTMTHZ Physical TherapyStart: 01-01-2025 End: 95-26-7909Yjsdbca encounter procedureMarietta Osteopathic Clinic MammographyComment on above:media/ptStart: 12-25-2024 End: 25-20-0875Jvqjalm encounter procedureMarietta Osteopathic Clinic MammographyComment on above:media/ptStart: 12-12-2024 End: 92-85-1742Jqxhmxf encounter vbyyjklyg37/10/2025 1:00 PM EDT Appointment [facility] Ultrasound [address] [place] [address] media/ptMMiddletown Hospital UltrasoundComment on above:media/pt Start: 12-07-2024 End: 11-26-9041CD Breast - bilateral limitedUltrasound breast limited bilateral Imaging Routine Nipple discharge Expected: 12/07/2024, Expires:12/07/2025 [employer] Work Phone: Comment on above:Expected: 12/07/2024, Expires: 12/07/2025Start: 12-06-2024 End: 80-64-7337LX Breast DiagnosticMammography diagnostic bilateral with CAD Imaging Routine Nipple discharge Expected: 12/06/2024, Expires: 12/06/2025 [facility] HospitalShift Media SystemComment on above:Expected: 12/06/2024, Expires: 12/06/2025Start: 12-06-2024 End: 68-90-3082PM Pelvis transabdominal and transvaginalUltrasound pelvic with transvaginal Imaging Routine History of uterine fibroid Pelvic pain Expected: 12/06/2024, Expires: 12/06/2025ProNewsela SystemComment on above:Expected: 12/06/2024, Expires: 12/06/2025Start: 10-25-2024 End: 13-91-7938Wnfxl metabolic 2000 panel - Serum or PlasmaBasic Metabolic Panel Lab Routine Swelling of both lower extremities Type 2 diabetes mellitus with h yperglycemia, without long-term current use of insulin (HCC) Expected: 10/25/2024, Expires: 10/18/2025[facility] HospitalComment on above: Expected: 10/25/2024, Expires: 10/18/2025Start: 10-25-2024 End: 32-51-1279ZCH W Auto Differential panel - BloodCBC with Auto Differential Lab Routine Swelling of both lower extremities Type 2 diabetes mellitus with hyperglycemia, without long-term current use of insulin (HCC) Expected: 10/25/2024, Expires: 10/18/2025on [facility] CenterNew[facility] Insurance [facility] on above: Expected: 10/25/2024, Expires: 10/18/2025Start: 37-40-4691Crcgs BMI Screening Adult BMI ScreeningProWalker County Hospital Vittana SystemStart: 03-01-7681Mbqdvooscy Screening Depression ScreeningSumma Health Wadsworth - [facility] Vittana St[facility] Clare's Hospitaltart: 35-12-8245Kvuzctf Screening Tobacco ScreeningProTrihealth Bethes[facility] SystemStart: 87-13-8597Hfqxm BMI Screening Adult BMI ScreeningProWalker County Hospital Vittana SystemStart: 97-76-4457Owpzvghffh Screening Depression ScreeningProWalker County Hospital Vittana SystemStart: 86-28-9155Babcpzwe foot examinationDiabetic Foot ExamProTrihealth Bethes[facility] North Hospital SystemStart: 31-56-9669Xfxagfr ScreeningTobacco ScreeningProTrihealth [facility] Hospital SystemStart: 52-42-9852Bpqwq screening for proteinUrine MicroalbuminProWalker County Hospital Vittana SystemStart: 08-31-2024 Adult BMI ScreeningAdult BMI ScreeningProTrihealth [facility] Hospital SystemStart: 08-31-2024 Depression ScreeningDepression ScreeningProWalker County Hospital Vittana SystemStart: 08-31-2024 Tobacco ScreeningTobacco ScreeningProWalker County Hospital Vittana SystemStart: 07-02-8525Ygwjr BMI ScreeningAdult BMI ScreeningProTrihealth [facility] Hospital SystemStart: 08-27-2024 Depression ScreeningDepression ScreeningSumma Health [facility] Vittana SystemStart: 08-27-2024 Tobacco ScreeningTobacco ScreeningSumma Health [facility]ad[facility] - [facility] Vittana SystemStart: 88-51-3366ADMZX- 19 Vaccine ( season)COVID-19 Vaccine ( season)[facility] CenterNewco Insurance [facility] HospitalStart: 09-67-6493Dxeenywfz vaccinationInfluenza VaccineProTrihealth [facility] Hospital SystemStart: 10-13-2023 End: 86-58-9760WV Thyroid glandUltrasound thyroid Imaging Routine Goiter Expected: 10/13/2023, Expires: 10/12/2024[facility] Work Phone: Comment on above:Expected: 10/13/2023, Expires: 10/12/2024Start: 10-13-2023 End: 72-59-0588Ddmmkyd encounter melkgyihe36/10/2024 8:40 AM EDT Office Visit [facility] Internal Medicine - Family Medicine [address] [place] [address] Gomez Green, SEARCH MANAGER-COILED TUBING OPERATOR [address] [place] [address] [facility] Internal Medicine - Family MedicineStart: 09-15-2023 End: 89-57-5528Qigzyfa encounter kibkuclul67/13/2024 9:30 AM EDT Office Visit [facility] Ob[facility]etric[facility]Gynecology [address] [place] [id number] Teri Perez, DO [address] [place], [place] [id number] [facility] Obstetrics/GynecologyStart: 09-01-2023 End: 18-50-2400Nhpthie encounter escilyslp15/28/2024 8:30 AM EST Office Visit [facility] Internal Medicine - Family Medicine [address] [place] [address] Gomez Green, SEARCH MANAGER-COILED TUBING OPERATOR [address] [place] [address] [facility] Internal Medicine - Family MedicineStart: 08-31-2023 End: 91-49-9689Ercbjgugsxoxp procedure, preparation of smear, genital sourcePap Smear Pathology and Cytology Routine Cervical smear, as part of routine gynecological examination Expected: 08/31/2023 (Approximate), Expires: 08/31/2024ProDayton Osteopathic HospitalUbiquity Global Services [facility] SystemComment on above:Expected: 08/31/2023 (Approximate), Expires: 08/31/2024Start: 08-31-2023 End: 26-26-6639DYX Breast - bilateral screeningMammography screening bilateral with CAD Imaging Routine Screening mammogram for breast cancer Expected: 08/31/2023, Expires: 08/31/2024[facility] Work Phone: Comment on above:Expected: 08/31/2023, Expires: 08/31/2024Start: 08-31-2023 End: 76-32-2201DX Pelvis transabdominal and transvaginalUltrasound pelvic with transvaginal Imaging Routine History of uterine fibroid Menorrhagia with regular cycle Expected: 08/31/2023, Expires: 08/31/2024[facility] SystemComment on above:Expected: 08/31/2023, Expires: 08/31/2024Start: 08-31-2023 End: 84-55-0902Fsvvjvt encounter bejgskmqk71/27/2024 1:00 PM EST Office Visit [facility]necology [place] [address] Teri Perez DO [address] [place] [address] [facility] Obstetrics/GynecologyStart: 75-76-4672RVcL,Tdap and Td Vaccines (2 - Td or Tdap) DTaP,Tdap and Td Vaccines (2 - Td or Tdap)[facility] SystemStart: 08-81-2466EFdR/Tdap/Td vaccine (2 - Td or Tdap)DTaP/Tdap/Td vaccine (2 - Td or Tdap)[facility] CenterStart: 43-78-4825Eewotql vaccinationTETANUSAvita [facility] SystemStart: 71-52-3918Hdyuvavac vaccinationInfluenza VaccineTriHealth McCullough-[facility] Hospital SystemStart: 94-51-3402Scxhncini for malignant neoplasm of breastBreast cancer screenBon [facility] SpringfieldStart: 07-16-2022 End: 89-96-8729Ojaqzuj encounter tncewqzvv20/12/2023 Office Visit Rheumatology Mor Harmon, Loreta Mann, DO [address] [phone] [facility] RheumatologyStart: 06-23-2022 End: 19-30-1871G-reactive proteinC REACTIVE PROTEIN Lab Routine History of Sjogren's disease Hyperpigmentation of skin of cheek Xerostomia Dry mouth Dry eyes Telangiectasia of face Hypothyroidism, unspecified type Hyperglycemia Based ow's disease Keratoconjunctivitis sicca Osteoarthritis of right hand, 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, unspecified osteoarthritis type Lumbar degenerative disc disease Expected: 06/23/2022 (Approximate), Expires: 07/10/2022[facility] CenterComment on above:Expected: 06/23/2022 (Approximate), Expires: 07/10/2022Start: 06-23-2022 End: 35-19-3029U1 COMPLEMENTC3 COMPLEMENT Lab Routine History of Sjogren's disease Hyperpigmentation of skin of cheek Xerostomia Dry mouth Dry eyes Telangiectasia of face Hypothyroidism, unspecified type Hyperglycemia 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, 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, unspecified osteoarthritis type Lumbar degenerative disc disease Expected: 06/23/2022 (Approximate), Expires: 07/10/2022[facility] SystemComment on above:Expected: 06/23/2022 (Approximate), Expires: 07/10/2022Start: 06-23-2022 End: 71-07-1356S7 COMPLEMENTC4 COMPLEMENT Lab Routine History of Sjogren's disease Hyperpigmentation of skin of cheek Xerostomia Dry mouth Dry eyes Telangiectasia of face Hypothyroidism, unspecified type Hyperglycemia 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, 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, unspecified osteoarthritis type Lumbar degenerative disc disease Expected: 06/23/2022 (Approximate), Expires: 07/10/2022[facility] SystemComment on above:Expected: 06/23/2022 (Approximate), Expires: 07/10/2022Start: 06-23-2022 End: 28-40-2356TFLU Lab Routine History of Sjogren's disease Hyperpigmentation of skin of cheek Xerostomia Dry mouthDry eyes Telangiectasia of face Hypothyroidism, unspecified type Hyperglycemia Basedow's disease Ker atoconjunctivitis sicca Osteoarthritis of right hand, 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, unspecified osteoarthritis type Lumbar degenerative disc disease Expected: 06/23/2022 (Approximate), Expires: 07/10/2022[facility] CenterComment on above:Expected: 06/23/2022 (Approximate), Expires: 07/10/2022Start: 06-23-2022 End: 53-89-9882Rngftcgz blood count with white cell differential, automatedCBC, EDIF, PLATELET Lab Routine History of Sjogren's disease Hyperpigmentation of skin of cheek Xerostomia Dry mouth Dry eyes Telangiectasia of face Hypothyroidism, unspecified type Hyperglycemia 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, 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, unspecified osteoarthritis type Lumbar degenerative disc disease Expected: 06/23/2022 (Approximate), Expires: 07/10/2022[facility] CenterComment on above:Expected: 06/23/2022 (Approximate), Expires: 07/10/2022Start: 06-23-2022 End: 40-90-9237Zndltggdbqjjf metabolic 2000 panel - Serum or PlasmaCOMPREHENSIVE METABOLIC PANEL Lab Routine History of Sjogren's disease Hyperpigmentation of skin ofcheek Xerostomia Dry mouth Dry eyes Telangiectasia of face Hypothyroidism, unspecified type Hyperglycemia 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, unspecified osteoar thritis type Osteoarthritis of left foot, unspecified osteoarthritis type Lumbar degenerative disc disease Expected: 06/23/2022 (Approximate), Expires: 07/10/2022[facility] CenterComment on above:Expected: 06/23/2022 (Approximate), Expires: 07/10/2022Start: 06-23-2022 End: 21-47-6976XEVUZGFPZIUIZ RATE, AUTOMATEDSEDIMENTATION RATE, AUTOMATED Lab Routine History of Sjogren's disease Hyperpigmentation of skin ofcheek Xerostomia Dry mouth Dry eyes Telangiectasia of face Hypothyroidism, unspecified type Hyperglycemia 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, 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, unspecified osteoarthritis type Lumbar degenerative disc disease Expected: 06/23/2022 (Approximate), Expires: 07/10/2022[facility] SystemComment on above:Expected: 06/23/2022 (Approximate), Expires: 07/10/2022Start: 06-23-2022 End: 47-68-4626Bzuuardoam dipstick W Reflex Microscopic panel - UrineURINE MICROSCOPIC Fluids Routine History of Sjogren's disease Hyperpigmentation of skin of cheek Xerostomia Dry mouth Dry eyes Telangiectasia of face Hypothyroidism, unspecified type Hyperglycemia 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, 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, unspecified osteoarthritis type Lumbar degenerative disc disease Expected: 06/23/2022 (Approximate), Expires: 07/10/2022[facility] SystemComment on above:Expected: 06/23/2022 (Approximate), Expires: 07/10/2022Start: 06-23-2022 End: 67-08-3039Ioisrydtwy, reagent strip without microscopyURINALYSIS, MACRO Fluids Routine History of Sjogren's disease Hyperpigmentation of skin of cheek Xerostomia Dry mouth Dry eyes Telangiectasia of face Hypothyroidism, unspecified type Hyperglycemia 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, 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, unspecified osteoarthritis type Lumbar degenerative disc disease Expected: 06/23/2022 (Approximate), Expires: 07/10/2022[facility] SystemComment on above:Expected: 06/23/2022 (Approximate), Expires: 07/10/2022Start: 11-08-2021 Screening for malignant neoplasm of breastBrown Memorial Hospitalca Health SystemStart: 09-05-2021 End: 78-38-1886Jmqujkzfewhn consultation with orgyslo4609/05/2021 Telemedicine Neurology Stanton Kohler F, DO [address] [place] [address] [facility] NeurologyStart: 82-36-1719Llmbuyzmu vaccinationINFLUENZA VACCINE (#1)[facility]: 2020 ColonoscopyCOLORECTAL CANCER SCREENING DISCUSSIONSCCI Hospital [facility]atart: 62-54-0593Zbbxnvjid for malignant neoplasm of colonReplaced by [facility] Ansontart: 97-25-2780Imqhbpzc screeningDiabetic retinal examBon [facility] SpringfieldStart: 47-07-8062Ivjfzio lipid profileLIPID SCREENINGSCCI Hospital [facility]atart: 41-64-5094Ltsus panelLIPID SCREENINGSCC[facility]: 2015 Screening mammographyMAMMOGRAM SCREENING DISCUSSIONSCC[facility]: 58-07-0552Efogiawvn for malignant neoplasm of cervixVirginia Hospital Center Start: 47-56-3617Giepysftr for malignant neoplasm of cervixAshtabula County Medical Center Start: 77-70-3714Gwcbudlam B vaccinationHEP B VACCINE (1 of 3 - 19+ 3-dose series)[facility]: 38-16-8790Dsahqesbb B vaccine (1 of 3 - 19+ 3- dose series)Hepatitis B vaccine (1 of 3 - 19+ 3-dose series)[facility] CenterStart: 90-11-9454Dqnksvvzhwpl 0-49 years Vaccine (1 of 2 - PCV) Pneumococcal 0-49 years Vaccine (1 of 2 - PCV)[facility] Centerart: 75-79-4788Nexib diphtheria, tetanus and acellular pertussis (DTaP) vaccination TDAP (ADULT)[facility]: 24-80-1921Ttfdw BMI Follow Up PlanAdult BMI Follow Up PlanReplaced by [facility] Ansontart: 51-77-6922Hxfyjeuax C screening Hepatitis C screenVirginia Hospital CenterStart: 11-85-1876Uhibuhi vaccination TETANUSSCCI Hospital Limatart: 66-83-8410HAL screeningAshtabula County Medical Center Start: 23-72-9215Sncddblsnb ScreenDepression ScreenBon [facility] Start: 87-89-1955Teyirdwi foot examinationDiabetic foot examBon [facility] SpringfieldStart: 04-12-3776Jhdxg panelLipidsVirginia Hospital CenterStart: 15-23-9524AUHLG-19 VACCINE (1)COVID-19 VACCINE (1)[facility]: 26-05-3317Bnlfivyo screeningDiabetic Ophthalmology ExamFairfield Medical Center Start: 81-08-3580Sfepsfnkf C antibody, confirmatory testHEPATITIS C VIRUS SCREENINGSCCI [facility]: 75-27-1287Ioyliceym C screeningHEPATITIS C VIRUS SCREENINGSCC[facility]: 38-37-9250Mruxwiw stimulating hormone measurementTSChillicothe VA Medical Centertart: 67-53-0713Knmvtad CounselingTobacco CounselingFairfield Medical Center End: 00-76-5890Prvtq Gas, VenousBlood Gas, Venous Lab Add-On One Time for 1 Occurrences starting 12/20/2024 until 12/20/2024on [facility] Stamp[employer]it [facility] on above:One Time for 1 Occurrences starting 12/20/2024 until 12/20/2024 End: 54-05-8393Pwzoo gas, venousBlood gas, venous Lab Routine Tomorrow AM for 1 Occurrences starting 12/21/2024 until 12/21/2024on [facility] Stamp[employer]it [facility] on above:Tomorrow AM for 1 Occurrences starting 12/21/2024 until 12/21/2024 peptide [Mass/volume] in Serum or PlasmaC-peptide Lab Routine Other specified diabetes mellitus with hyperglycemia, without long-term current use of insulin ([facility]) 09/01/2023 4:16 PM [facility] End: 03-80-1490R-peptideC-peptide Lab Routine Other specified diabetes mellitus with hyperglycemia, without long-term current use of insulin ([facility]) 1 Occurrences starting 09/01/2023 until 09/01/2024[employer] Work Phone: Comment on above:1 Occurrences starting 09/01/2023 until 09/01/2024 End: 04-14-8315R-PeptideBon [facility] Stamp[employer]it [facility] on above:One Time for 1 Occurrences starting 10/18/2024 until 10/18/2024 End: 02-60-8329DBF panel - Blood by Automated countCBC without diff Lab Routine Postmenopausal syndrome 1 Occurrences starting 01/30/2025 until 01/30/2026 [facility] Work Phone: Comment on above:1 Occurrences starting 01/30/2025 until 01/30/2026 End: 88-36-6681EEV W Auto Differential panel - BloodCBC auto differential Lab Routine Daily for 5 Days starting 10/17/2024 until 10/21/2024, [facility] HospitalComment on above:Daily for 5 Days starting 10/17/2024 until 10/21/2024, 2 completed End: 89-61-0042UAX W Auto Differential panel - BloodCBC auto differential Lab Routine Daily for 5 Days starting 12/21/2024 until 12/25/2024, 1 [facility] HospitalComtr[facility] on above:Daily for 5 Days starting 12/21/2024 until 12/25/2024, 1 completedChlamydia trachomatis DNA [Presence] in Unspecified specimen by NEENA with probe detectionChlamydia/GC by PCR Imelda [facility] Microbiology Routine Screening for STD (sexually transmitted disease) 12/06/2024 1:37 PM EDT [facility] HospitalShift Media SystemCologuard Non-ProMedicaCologuard Non-[facility] Lab Routine Special screening for malignant neoplasm of colon Ordered: 09/01/2023 [facility] HospitalShift Media [facility] HospitalComment on above:Ordered: 09/01/2023ologuard Non-ProMedicaCologuard Non-[facility] Lab Routine Screening for colon cancer Ordered: 12/06/2024[facility] Vittana [facility] HospitalComment on above:Ordered: 12/06/2024 End: 68-82-0283Flugriutrjstb Metabolic Panel w/ Reflex to MGComprehensive Metabolic Panel w/ Reflex to MG Lab Routine Daily for 5 Days starting 10/17/2024 until 10/21/2024, 2 [facility] [employer] [facility] HospitalCom[facility] on above:Daily for 5 Days starting 10/17/2024 until 10/21/2024, 2 completed End: 97-97-1036Gsqmvguepxxst Metabolic Panel w/ Reflex to MGComprehensive Metabolic Panel w/ Reflex to MG Lab Routine Daily for 5 Days starting 12/21/2024 until 12/25/2024, 1 [facility] [employer] [facility] HospitalComtr[facility] on above:Daily for 5 Days starting 12/21/2024 until 12/25/2024, 1 completed End: 50-62-6358IemwowauMqyzapbu Lab Routine Vasomotor symptoms due to menopause Brain fog Irritability 1 Occurrences starting 12/20/2024 until 12/20/2025 [facility] Vittana SystemComment on above:1 Occurrences starting 12/20/2024 until 12/20/2025 End: 17-54-0586NNOW-sulfateDHEA-sulfate Lab Routine Vasomotor symptoms due to menopause Brain fog Irritability 1 Occurrences starting 12/20/2024 until 12/20/2025[facility] HospitalNewsela SystemComment on above:1 Occurrences starting 12/20/2024 until 12/20/2025Electrophoresis Protein, SerumElectrophoresis Protein, Serum Lab Routine Peripheral neuropathy due to disorder of metabolism 02/08/2025 3:01 PM [facility] [employer] Work Phone: End: 70-39-1771EvfcwlxyaRpzppaotu Lab Routine Vasomotor symptoms due to menopause Brain fog Irritability 1 Occurrences starting 12/20/2024 until 12/20/2025[employer] Work Phone: Comment on above:1 Occurrences starting 12/20/2024 until 12/20/2025 End: 54-91-9095JkeekpqnmSqtnimzuh Lab Routine Postmenopausal syndrome 1 Occurrences starting 01/30/2025 until 01/30/2026[facility] HospitalNewsela SystemComment on above:1 Occurrences starting 01/30/2025 until 01/30/2026 End: 25-32-7714Mzflftp, SEstrone, S Lab Routine Vasomotor symptoms due to menopause Brain fog Irritability 1 Occurrences starting 12/20/2024 until 12/20/2025[facility] HospitalNewsela SystemComment on above:1 Occurrences starting 12/20/2024 until 12/20/2025 End: 36-48-6340Npxcqugy stimulating hormoneFollicle stimulating hormone Lab Routine Postmenopausal syndrome 1 Occurrences starting 01/30/2025 until 01/30/2026[facility] HospitalNewsela SystemComment on above:1 Occurrences starting 01/30/2025 until 01/30/2026Glucose [Mass/volume] in Serum or PlasmaPOCT glucose Point of Care Testing Routine 4X Daily (AC & HS) until discontinued starting 10/17/2024 Matter and FormComment on above:4X Daily (AC & HS) until discontinued starting 10/17/2024 End: 16-80-9320Zhddske [Mass/volume] in Serum or PlasmaBon [employer] Comment on above:One Time for 1 Occurrences starting 12/20/2024 until 12/20/2024 4X Daily (AC & HS) until discontinued starting 12/21/2024 End: 85-76-2522SZX, Quantitative, PregnancyHCG, Quantitative, Lab Routine Postmenopausal syndrome 1 Occurrences starting 01/30/2025 until 01/30/2026ProDayton Osteopathic HospitalCloud Dynamics Henry Ford HospitalComment on above:1 Occurrences starting 01/30/2025 until 01/30/2026 End: 89-32-3400Ezyesorla panel, acuteHepatitis panel, acute Lab Routine Screening for STD (sexually transmitted disease) 1 Occurrences starting 12/06/2024 until 12/06/2025[facility] HospitalCloud Dynamics SystemComment on above:1 Occurrences starting 12/06/2024 until 12/06/2025 End: 98-48-1462Mxyklhale Panel, AcuteCopper Springs Hospital Zenogen [facility] HospitalComment on above: Once for 1 Occurrences starting 12/08/2024 until 12/08/2024 End: 69-04-0560Vlgq risk HPV w/genoHigh risk HPV w/gabbi Lab Routine Cervical smear, as part of routine gynecological examination 1 Occurrences starting 08/31/2023 until 08/31/2024[facility] HospitalCloud Dynamics Henry Ford HospitalComment on above:1 Occurrences starting 08/31/2023 until 08/31/2024 End: 72-51-4009ERD 1+2 Ab+HIV1 p24 Ag [Presence] in Serum or Plasma by ImmunoassayHIV 1&2 AB/AG Screen (P24 AG) Lab Routine Screening for STD (sexually transmitted disease) 1 Occurrences starting 12/06/2024 until 12/06/2025 [employer] Work Phone: Comment on above:1 Occurrences starting 12/06/2024 until 12/06/2025 End: 17-77-5573CNK ScreenCopper Springs Hospital [facility] HospitalComment on above:Once for 1 Occurrences starting 12/08/2024 until 12/08/2024 End: 22-32-7498Napstto, totalCopper Springs Hospital Zenogen HealthComment on above:One Time for 1 Occurrences starting 10/18/2024 until 10/18/2024 End: 94-32-0576Fgiadodiegv hormoneLuteinizing hormone Lab Routine Postmenopausal syndrome 1 Occurrences starting 01/30/2025 until 01/30/2026ProDayton Osteopathic HospitalUbiquity Global Services Health SystemComment on above:1 Occurrences starting 01/30/2025 until 01/30/2026 End: 78-89-2871EL Lumbar spine WO contrastBon Zenogen HealthComment on above:1 Occurrences starting 12/08/2024 until 12/08/2024Oxygen therapy [Minimum Data Set]Initiate Oxygen Therapy Protocol Respiratory Care Routine Daily until discontinued starting 10/16/2024on Matter and FormComment on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 InactivatedComments10/16/2024 10:49 PMDate ActivatedDate InactivatedComments10/16/2024 10:49 PM10/18/2024 4:14 PMDate ActivatedDate InactivatedComments10/16/2024 10:49 PM10/18/2024 4:14 PMTypeDate RecordedPatient RepresentativeExplanationACP-Advance Directive12/21/2024 1:07 PMDPOAHC and Living Will [id number] ActivatedDate InactivatedComments12/21/2024 1:16 AMDate ActivatedDate InactivatedComments10/16/2024 10:49 PM10/18/2024 4:14 PMName RelationshipHealthcare Agent RelationshipCommunicationArowen RettigChildPrimary Decision Maker* Silus RettigChildSecondary Decision Maker* Date ActivatedDate InactivatedComments12/21/2024 1:16 AM12/21/2024 3:53 PMName RelationshipHealthcare Agent RelationshipCommunicationArowen RettigChildPrimary Decision Maker* Silus RettigChildSecondary Decision Maker* NameRelationshipHealthcare Agent RelationshipCommunicationArowen RettigChild Primary Decision Maker* Silus RettigChildSecondary Decision Maker* TypeDate RecordedPatient RepresentativeExplanationACP-Advance Directive12/21/2024 1:07 PMDPOAHC and Living Will [id number] ActivatedDate InactivatedComments 12/21/2024 1:16 AM12/21/2024 3:53 PMDate ActivatedDate InactivatedComments 10/16/2024 10:49 PM10/18/2024 4:14 PMNameRelationshipHealthcare Agent Relationship CommunicationArowen RettigChildPrimary Decision Maker* Silus RettigChildSecondary Decision Maker* Advance Directive Response Recorded Date/ Time Advance Directives No December 27 10:55am Chief Complaint and Reason for Visit Chief Complaint Admit Date EMG BLE per Dr. Trice Araiza Oc tober 2024 8:50am Reason for Visit Admit Date Polyneuropathy April 26, 2025 8 :50am Additional Source Comments Reason for Visit (unrecogniz [...] previously seen by your for migrainesReasonOnset DateCommentsPreventative Qajswwboa31/26/2024ReasonCommentsnew patientReasonCommentsAnnual ExamPap: 3 years agoMam: 11/08/20Periods: Regular [...] unspecified type Becky Avila MD [address] [place] [address] Phone: tel: fax: [facility] [address] [place] [address] Referral IDStatusReasonStart DateExpiration DateVisits RequestedVisits [id number] DateCommentsTransition Of Care10/19/2024Reason Onset ScbqRhfcdwlcPdkowme01/13/2025ReasonCommentsAltered Mental StatusPatient states that for the past few days she has been having episodes of confusion shakiness. Was told by her Dr that she may be having mini strokes.Patient is a diabetic and does have some concern for blood sugar issues causing the symptoms. SpecialtyDiagnoses / ProceduresReferred By ContactReferred To Contact Diagnoses Type 2 diabetes mellitus with hyperglycemia (HCC) Ann Herron MD [address] [place] [address], [facility] [place] [address] Phone: tel: fax: [facility] [address] [place] [address] Referral IDStatusReasonCumberland DateExpiration DateVisits RequestedVisits [id number] PatientLast seen in Jul.Reason CommentsHRTReasonCommentsThyroid ProblemNEW NODULE REF/LAB/USSpecialtyDiagnoses / ProceduresReferred By ContactReferred To ContactEndocrinology Diagnoses Nontoxic single thyroid nodule Procedures NM OFFICE/OUTPATIENT NEW MODERATE MDM 45 MINUTES Ashlyn Rosa MD [address] [facility], [facility] [address], [place] [address] Phone: tel: fax: Meghna Christianson MD [address] [facility] [place] [address] Phone: tel: fax: Referral IDStatusReasonStart DateExpiration DateVisits RequestedVisits [id number]/18/202512/ Care Teams (unrecognized sec tion and content) Team MemberRelationshipSpecialtyStart DateEnd Date Office Of Gabe Jolly Md Other [address] [facility] [place] [address] PCP - General10/29/16Team MemberRelationshipSpecialtyStart DateEnd Date Office Of Gabe Jolly Md Other [address] [facility] [place] [address] PCP - General10/29/16Te MemberRelationshipSpecialtyStart DateEnd Date Gomez Green SEARCH MANAGER-COILED TUBING OPERATOR [address] [place] [address] PCP - GeneralInternal Medicine08/27/23Team MemberRelationshipSpecialtyStart Date End Date Gomez Green SEARCH MANAGER-COILED TUBING OPERATOR [address] [place] [address] PCP - GeneralInternal Medicine08/27/23Team MemberRelationshipSpecialtyStart Date End Date Gomez Green SEARCH MANAGER-COILED TUBING OPERATOR [address] [place] [address] PCP - GeneralInternal Medicine08/27/23Team MemberRelationshipSpecialtyStart Date End Date Gomez Green SEARCH MANAGER-COILED TUBING OPERATOR [address] [place] [address] PCP - GeneralInternal Medicine08/27/23Team MemberRelationshipSpecialtyStart Date End Date Gomez Green SEARCH MANAGER-COILED TUBING OPERATOR [address] [place] [address] PCP - GeneralInternal Medicine08/27/23Team MemberRelationshipSpecialtyStart Date End Date Gomez Green [facility] [address] [place] [address] PCP - GeneralInternal Medicine08/27/23Team MemberRelationshipSpecialtyStart Date End Date Gomez Green [facility] [address] [place] [address] PCP - GeneralInternal Medicine08/27/23Team MemberRelationshipSpecialtyStart Date End Date Gomez Green [facility] [address] [place] [address] PCP - GeneralFamily Medicine10/17/24Team MemberRelationshipSpecialtyStart DateEnd Date Gomez Green SEARCH MANAGER [facility] [address] [place] [address] PCP - GeneralFamily Medicine10/17/24Team MemberRelationshipSpecialtyStart DateEnd Date Gomez Green SEARCH MANAGER [facility] [address] [place] [address] PCP - GeneralFamily Medicine10/17/24Team MemberRelationshipSpecialtyStart DateEnd Date Gomez Green [facility] [address] [place] [address] PCP - GeneralFamily Medicine10/17/24Team MemberRelationshipSpecialtyStart DateEnd Date Gomez Green, SEARCH MANAGER - COILED TUBING OPERATOR [address] [place] [address] PCP - [facility]Bel[facility] Medicine10/17/24Team MemberRelationshipSpecialtyStart DateEnd Date Gomez Green, SEARCH MANAGER - COILED TUBING OPERATOR [address] [place] [address] PCP - Generalmily Medicine10/17/24Team MemberRelationshipSpecialtyStart DateEnd Date Gomez Green, SEARCH MANAGER - COILED TUBING OPERATOR [address] [place] [address] PCP - Generalmi Medicine10/17/24Team MemberRelationshipSpecialtyStart DateEnd Date Shelley Clancy MD [address] [place] [address] PCP - General12/21/24Team MemberRelationshipSpecialtyStart DateEnd Date Shelley Clancy MD [address] [place] [address] PCP - General12/21/24Team MemberRelationshipSpecialtyStart DateEnd Date Shelley Clancy MD [address] [place] [address] PCP - General12/21/24Team MemberRelationshipSpecialtyStart DateEnd Date Office Of Gabe Jolly Md Other [address] [place] [address] PCP - General10/29/16Team MemberRelationshipSpecialtyStart DateEnd Date Ashlyn Rsoa MD [address] [place] [address] PCP - [facility]01/10/25Team MemberRelationshipSpecialtyStart DateEnd Date Ashlyn Rosa MD [address] [place] [address] PCP - [facility]01/10/25Team MemberRelationshipSpecialtyStart DateEnd Date Ashlyn Rosa MD [address] [address] [place] [address] PCP - [facility]01/10/25Team MemberRelationshipSpecialtyStart DateEnd Date Shelley Clancy MD [address] [place] [address] PCP - General12/21/24Team MemberRelationshipSpecialtyStart DateEnd Date Ashlyn Rosa MD [address] [place] [address] PCP - [facility]01/10/25Team MemberRelationshipSpecialtyStart DateEnd Date Ashlyn Rosa MD [address] [place] [address] PCP - [facility]01/10/25 Team Status: Active Member Role/Relationship Status Dates Lenora Hoff SPORTS MANAGEMENT PROFESSOR-C Primary Care Provider Active Team Status: Inactive Member Role/Relationship Status Dates Becky Cornejo DO Attending Provider Active Start: April 26, 2025 End: April 26, 2025Lenora Hoff NP-[facility] Care ProviderActiveStart: April 26, 2025 End: April 26, 2025 INFORMATION SOURCE (unrecogn ized section and content) DATE CREATED AUTHOR 10/20/2022 [facility] DATE CREATED AUTHOR AUTHOR'S ORGANIZ ATION 10/15/2023 [facility] DATE CREATED AUTHOR AUTHOR'S ORGANIZ ATION 01/14/2025 [facility] DATE CREATED AUTHOR AUTHOR'S ORGANIZ ATION 02/01/2025 [facility] DATE CREATED AUTHOR AUTHOR'S ORGANIZ ATION 02/03/2025 [facility] DATE CREATED AUTHOR AUTHOR'S ORGANIZ ATION 02/11/2025 [facility] DATE CREATED AUTHOR AUTHOR'S ORGANIZ ATION 04/17/2025 [facility] EPIC Ordered Prescriptions (unrec ognized [...] 2 times daily (before meals) 10 mL / glipiZIDE (GLUCOTROL) 5 MG tablet Take 0.5 tablets by mouth every morning 15 tablet PrescriptionSigDispense QuantityRefillsLast FilledStart Date End Date insulin glargine (LANTUS) 100 UNIT/ML injection vial Inject 40 Units into the skin daily States 40-50 10 mL 12/21/2024 Scheduled Active and Recently Administ ered Medications (unrecognized section and content) Medication Order enoxaparin (LOVENOX) injection 40 mg 40 mg, [...] * 2049 (Given - Provider: Ramonita Da Silva RN) [...] * 205 (Given - Provider: Ramonita Da Silva, ALIE) * 0908 (Given - Provider: Bonnie Aguilera, ALIE) * [...] - Provider: Rupali Denney RN) * 205 (Not Given - Provider: Ramonita Da Silva [...] * 1352 (Given - Provider: Bonnie Aguilera, RN) nicotine [...] RN) * 0909 (Given - Provider: Bonnie Aguilera, ALIE) * 2100 (Due) Medication Order// 0.9 % sodium chloride infusion (CANCELED) IntraVENous, at 50 mL/hr, CONTINUOUS, Starting on Wed10/17/24 at 0200 * 0208 (New Bag - Provider: Ursula Kate RN) * 1315 (Stopped - Provider: Bonnie Aguilera, RN - Comment: not running, unknown when stopped) Medication Order// 0.9 % sodium chloride infusion [...] * 0923 (See Alternative - Provider: Bonnie Aguilera, ALIE) acetaminophen (TYLENOL) tablet 650 mg(Linked Group 1) [...] ketoacidosis. * 0945 (Given - Provider: Radha Barajas, ALIE) enoxaparin (LOVENOX) injection 40 mg 40 mg, SubCUTAneous, DAILY, First dose on Wed12/21/24 at 0900, Until Discontinued, Indication of Use: Prophylaxis-DVT/PE * 0948 (Not Given - Provider: Radha Barajas, RN - Reason: Patient/family refused) famotidine (PEPCID) tablet 20 mg 20 mg, Oral, 2 TIMES DAILY, First dose on Wed12/21/24 at 0145, Until Discontinued * 0150 (Given - Provider: Maura Nice RN) * 0947 (Given - Provider: Radha Barajas, RN) * 2100 (Due) furosemide (LASIX) tablet 40 mg 40 mg, Oral, DAILY, First dose on Wed12/21/24 at 0900, Until Discontinued * 0947 (Not Given - Provider: Radha Barajas, RN - Reason: Patient/family refused) glipiZIDE (GLUCOTROL) tablet 2.5 mg 2.5 mg, Oral, EVERY MORNING, First dose on Wed12/21/24 at 0900, Until Discontinued * 0947 (Not Given - Provider: Radha Barajas, RN - Reason: Patient/family refused) insulin glargine (LANTUS) injection vial 40 Units 40 Units, SubCUTAneous, DAILY, First dose on Wed12/21/24 at 0145, Until Discontinued * 0150 (Given - Provider: Maura Nice RN) insulin lispro (HUMALOG,ADMELOG) injection vial 20 Units (COMPLETED) 20 Units, SubCUTAneous, ONCE, 1 dose, On Wed12/20/24 at 2115 * 2110 (Given - Provider: Alanis Carter, ALIE) levothyroxine (SYNTHROID) tablet 75 mcg 75 mcg, Oral, DAILY, First dose on Wed12/21/24 at 0700, Until Discontinued, Tube feeding (TF) interaction, obtain physician order to manage, recommend holding TF for 30 minutes before and after dose. * 0945 (Not Given - Provider: Radha Barajas, ALIE - Reason: Patient/family refused - Comment: pt [...] - Comment: not present on arrival to [facility]) sodium chloride flush 0.9 % injection 10 mL 10 mL, IntraVENous, EVERY 12 HOURS SCHEDULED (2 times per day), First dose on Wed12/21/24 at 0900, Until Discontinued * 0948 (Not Given - Provider: Radha Barajas, RN - Reason: IV Fluid Infusing) * 2100 (Due) Medication Order// 0.9 % sodium chloride infusion (CANCELED) IntraVENous, at 100 mL/hr, CONTINUOUS, Starting on Susy 12/21/24 at 0145, For 24 hours, Complete lastbag that is running at 24 hours and then saline lock IV * 0145 (New Bag - Provider: Maura Nice RN) * 0953 (Stopped - Provider: Radha [...] with CrCl less than 30 mL /min. Goals (unrecognized section and content) Goals may be documented in a n alternate section FOR RECORDS PERTAINING TO PATIENTS WHO ARE [...] BE BASED ON THE PRIMARY CLINICAL RECORDS. [employer] provides no warranty or guarantee of the accuracy or completeness of information in this document.
== END 2025-05-21 13:55 | disposition home or self-care (01) ==
LOC: MAMMO 13:54
PROVIDERS: PCP Nurse Practitioner Family; Visit Provider Nurse Practitioner Family
DX: Z12.31 Encounter for screening mammogram for malignant neoplasm of breast (principal)
CPT/HCPCS: 77063; 77067

== ENCOUNTER 2025-06-15 15:11 | Outpatient (OUT) | payer MEDICAID, SELFPAY ==
--- OUTSIDE RECORDS SUMMARY | 2025-06-15 15:21 | XMS_ITS | CCD ---
Author Organization [facility] Care Team Providers Care Careers Counsellor Name Role Phone [facility] Other Primary Car e Provider Lenora Whitehead Unavailable [facility] [place] Primary Care Unavailable MARKER ., [...] NORMA, GOMEZ L Primary Care Unavailable Norma GENERAL OFFICE ASSISTANT-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, Gomez L Primary Care Provider Norma GENERAL OFFICE ASSISTANT - 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, Gomez L Primary Care Provider Unavailable Primary [...] Referring Unavailable Becky Cornejo DO Attending Provider [phone] Luis Eduardo ADAME-C, Lenora Turpin Primary Care Provider Medications Current Medications MedicationDrug Class(es)DatesSig (Normalized)Sig (Original)Acetaminophen (20 sources)Start: 81-99-3043dckzxtdvdxaem (TYLENOL) tablet 650 mgStart: 50-34-8054knjqkbylafeit (TYLENOL) tablet 650 mgStart: 34-02-7079htem 1 tablet by mouth every six hours as needed for painacetaminophen (TYLENOL EXTRA STRENGTH) 500 mg tablet Take 1 tablet (500 mg total) by mouth every 6 (six) hours as needed for pain. 30 tablet 07/12/2022 Activeblood-glucose meter misc (20 sources)Start: 75-79-0510kjppr-glucose meter misc Use to check blood sugar once daily. 1 each 09/01/2023 ActiveStart: 79-70-8569fttev-glucose meter misc Use to check blood sugar once daily. 1 each 0 09/01/2023 Activeboric acid 600 mg suppository (6 sources)Start: 01-12-2025 End: 06-35-5753edkrv acid 600 mg suppository Indications: Kiesha glabrata infection Insert 1 suppository into thevagina nightly for 14 days. 14 suppository 01/12/2025 01/26/2025 ActiveStart: 12-12-2024 End: 13-53-0120rrgzn acid 600 mg suppository Indications: Kiesha glabrata infection , Vaginal yeast infection Insert 1 suppository into the vagina nightly for 14 days. 14 suppository 12/12/2024 12/26/2024 ActiveStart: 12-07-2024 End: 19-04-5354laocu acid 600 mg suppository Indications: Kiesha glabrata infection , Vaginal yeast infection Insert 1 suppository into the vagina nightly for 14 days. 14 suppository 12/07/2024 12/12/2024 Discontinued (Reorder)Start: 12-07-2024 End: 46-34-4730ivqrg acid 600 mg suppository Indications: Kiesha glabrata infection , Vaginal yeast infection Insert 1 suppository into the vagina nightly for 14 days. 14 suppository 12/07/2024 12/21/2024 Active0.5 ml dulaglutide 1.5 mg/ml auto-injector (12 sources)GLP-1 Receptor AgonistStart: 24-66-9377xdjzbu 0.75 mg by subcutaneous injection every week0.75 mg, SubCUTAneous, WEEKLY, First dose (after last modification) on 12/24/24 at 0900, Until Discontinued, On Sundays Patient using own home medicationsStart: 98-98-6582FAYGUSAIA 0.75 MG/0.5ML SOAJ SC injection Inject 0.5 mLs into the skin once a week Sundays12/08/2024 Active Start: 94-13-5304MCUYIZWSM 0.75 mg/0.5 mL pen injector Inject 0.5 mL (0.75 mg total) under the skin every 7 days. 12/08/2024 ActiveDULoxetine 60 mg delayed release oral capsule (1 source)Serotonin and Norepinephrine Reuptake InhibitorStart: 74-73-2230knxo 1 capsule by mouth once dailyDULoxetine (CYMBALTA) 60 MG extended release capsule Take 1 capsule by mouth daily 11/14/2024 Activeempagliflozin 10 mg oral tablet (20 sources)Sodium-Glucose Cotransporter 2 InhibitorStart: 86-01-5512HJLLDLMQZ 10 mg tablet tablet 11/14/2024 Active0.4 ml enoxaparin sodium 100 mg/ml prefilled syringe (2 sources)Low Molecular Weight HeparinStart: 04-25-7475Gmdgr: 96-88-8252fgewtx 40 mg by subcutaneous injection once daily40 mg, SubCUTAneous, DAILY, First dose on Wed10/17/24 at 0900, Until Discontinued, Indication of Use: Prophylaxis-DVT/PEfurosemide 40 mg oral tablet (7 sources)Loop DiureticStart: 85-39-0932Qodfz: 10-18-2024 End: 18-29-5451nqpu 1 tablet by mouth once dailyfurosemide (LASIX) 40 MG tablet Take 1 tablet by mouth daily 30 tablet 10/19/2024 ActiveStart: 31-82-373233 mg, IntraVENous, ONCE, 1 dose, On Wed10/17/24 at 0900glipiZIDE 5 mg oral tablet (6 sources)SulfonylureaStart: 47-36-3071Gwrgl: 10-18-2024 End: 70-55-8866fuas 0.5 tablet by mouth once daily in the morningglipiZIDE (GLUCOTROL) 5 MG tablet Take 0.5 tablets by mouth every morning 15 tablet 10/18/2024 ActiveStart: 45-34-9439mvxp 2.5 mg by mouth once daily in the morning 2.5 mg, Oral, EVERY MORNING, First dose on Wed10/17/24 at 0900, Until Discontinuedibuprofen 800 mg oral tablet (20 sources)Nonsteroidal Anti-inflammatory DrugStart: 26-00-4456gvam 1 tablet by mouth every eight hours [...] 100 unt/ml injectable solution (20 sources)Insulin AnalogStart: 11-19-6076vnxaqba glargine (LANTUS) 100 UNIT/ML injection vial Inject 40 Units into the skin daily States 40-50 10 mL 12/21/2024 ActiveStart: 46-44-3526ofdrys 40 [IU] by subcutaneous injection once daily40 Units, SubCUTAneous, DAILY, First dose on Susy 12/21/24 at 0145, Until DiscontinuedStart: 02-16-6272IJHXVY SOLOSTAR U-100 INSULIN 100 unit/mL (3 mL) insulin pen 11/14/2024 ActiveStart: 10-18-2024 End: 82-98-5138wssulri glargine (LANTUS) 100 UNIT/ML injection vial Inject 25 Units into the skin 2 times daily 10mL 10/18/2024 12/21/2024 DiscontinuedStart: 40-39-1124indhtq 25 [IU] by subcutaneous injection twice daily25 Units, SubCUTAneous, 2 TIMES DAILY, First dose on 10/16/24 at 2315, Until Discontinuedinsulin glulisine, human (2 sources)Insulin Analoginject 30 [IU] by subcutaneous injection once daily Insulin Glulisine (APIDRA SOLOSTAR SC) Inject 30 Units under the skin Daily ActiveInsulin Syringes, Disposable, U-100 1 ML MISC (11 sources)Start: 77-11-0941Odajbvb Syringes, Disposable, U-100 1 ML MISC 1 each by Does not apply route daily 100 each 10/18/2024 Activeinsulin, regular, human 100 unt/ml injectable solution (2 sources)InsulinStart: 10-18-2024 End: 34-42-9743oqfitbo regular (HUMULIN R;NOVOLIN R) 100 UNIT/ML injection Inject 25 Units into the skin 2 times daily (before meals) 10 mL 10/18/2024 11/17/2024 Activelevothyroxine sodium 0.075 mg oral tablet (20 sources)l-ThyroxineStart: 04-16-2025 End: 27-31-9521fbnm 1 tablet by mouth once dailylevothyroxine (Synthroid, Levoxyl) 75 MCG tablet Indications: Postablative hypothyroidism Take 1 tablet (75 mcg) by mouth Daily 90 tablet 1 04/16/2025 10/13/2025 ActiveStart: 10-19-2023 End: 64-13-5756rzba 1 tablet by mouth in the morninglevothyroxine (SYNTHROID, LEVOTHROID) 75 MCG tablet Take 1 tablet (75 mcg total) by mouth in the morning. 90 tablet 1 10/19/2023 01/29/2025 DiscontinuedStart: 09-01-2023 End: 94-65-9461tztk 1 tablet by mouth in the morninglevothyroxine (SYNTHROID, LEVOTHROID) 50 MCG tablet Take 1 tablet (50 mcg total) by mouth in the morning. 30 tablet 1 09/01/2023 10/19/2023 Discontinued (Therapy completed)Start: 10-30-2020 End: 44-76-6118pznx 0.5 tablet by mouth once dailylevothyroxine (SYNTHROID, LEVOTHROID) 100 MCG tablet Indications: Graves disease , Acquired hypothyroidism Take 0.5 tablets (50 mcg total) by mouth daily. 30 tablet 2 10/30/2020 09/01/2023 Discontinued (Therapy completed)Start: 01-18-2015 End: 44-06-1157lxyigktbgoaos (SYNTHROID) 150 MCG tablet 3 01/18/2015 10/18/2024 Discontinued (Stop Taking at Discharge)take 1 tablet by mouth once daily levothyroxine 300 MCG tablet Take 300 mcg by mouth daily. ActivemetroNIDAZOLE 250 mg oral tablet (9 sources)Nitroimidazole AntimicrobialStart: 10-17-2024 End: 68-76-3895698 mg, Oral, 2 TIMES DAILY, 6 doses, First dose on Wed10/17/24 at 0945, Last dose on Wed10/19/24 at 1400, Antimicrobial Indications: Other, Other Abx Indication: trich End: 42-92-6705gdabmPRPBKXSB (FLAGYL) 250 MG tablet Take 1 tablet by mouth 2 times daily at 0800 and 1400 3 days left to finish 12/21/2024 Discontinued (Stop Taking at Discharge)24 hr nicotine 0.875 mg/hr transdermal system (20 sources)Cholinergic Nicotinic AgonistStart: 23-30-4092ntbqy 1 dose transdermal route every twenty-four hours [...] to facility policy for handling and disposal.Start: 90-82-8965cdjjt 1 dose transdermal route once daily at [...] ODT) disintegrating tablet 4 mg (2 sources)Start: 93-97-7757sepwwfemolo (ZOFRAN-ODT) disintegrating tablet 4 mg Start: 90-18-9888aovuwgrtyys (ZOFRAN-ODT) disintegrating tablet 4 mgpermethrin 50 mg/ml topical cream (1 source)PyrethroidStart: 90-31-8867Tnabjaaimr 5 % 1 application Externally Two times a Week Perform the treatment as directed, repeat in 3 days. Apr, Activepilocarpine hydrochloride 5 mg oral tablet (4 sources)Cholinergic Receptor AgonistStart: 60-87-6517igri 1 tablet by mouth four times daily [...] 120 tablet 11 07/10/2021 ActiveStart: 11-12-2016 End: 26-13-2373kmzd 1 mg by mouth once dailypilocarpine 5 [...] tablet 3 11/12/2016 07/10/2021 Discontinuedpolyethylene glycol 3350 25491 mg powder for oral solution (2 sources)Osmotic LaxativeStart: 30-10-6218Vyizw: 28-25-9722Jofvwzvon Chloride (5 sources)Start: 94-05-8694otdjpqnyc chloride (KLOR-CON M) extended release tablet 40 mEqStart: 10-18-2024 End: 66-14-1857reza 1 tablet by mouth once daily at breakfastpotassium chloride (KLOR-CON M) 20 MEQ extended release tablet Take 1 tablet by mouth daily (with breakfast) 30 tablet 10/19/2024 11/18/2024 ActiveStart: 05-11-6830roatlgrka chloride (KLOR-CON M) extended release tablet 40 mEqrOPINIRole 0.25 mg oral tablet (7 sources)Nonergot Dopamine AgonistStart: 07-25-2021 End: 58-85-0063rDIOXWMyem (REQUIP) 0.25 mg tablet 1 po 2-3 hours before bed x 1 week then increase to 2 before bedif no SE 01/11/2025 Active Completed/Discontinued Medications MedicationDrug Class(es)DatesSig (Normalized)Sig (Original)cetirizine hydrochloride 10 mg oral tablet (1 source)Histamine-1 Receptor AntagonistStart: 05-11-2014 End: 96-05-3245dtrx 1 tablet by mouth once dailycetirizine (ZYRTEC) 10 MG tablet Indications: Allergic rhinitis Take 1 tablet by mouth daily. 30 tablet 0 05/11/2014 10/17/2024 Discontinued (LIST CLEANUP)esomeprazole 20 mg / naproxen 500 mg delayed release oral tablet (1 source)Proton Pump Inhibitor, Nonsteroidal Anti-inflammatory DrugStart: 10-29-2016 End: 97-07-8726nwfu 1 tablet by mouth twice daily as [...] mg oral tablet (2 sources)Histamine-2 Receptor AntagonistStart: 66-81-0673xxen 20 mg by mouth twice daily20 mg, Oral, 2 TIMES DAILY, First dose on Wed12/21/24 at 0145, Until DiscontinuedStart: 01-05-9423jdvy 20 mg by mouth twice daily20 mg, Oral, 2 TIMES DAILY, First dose on Wed10/16/24 at 2315, Until Discontinuedfluticasone propionate 0.05 mg/actuat metered dose nasal spray (1 source)CorticosteroidStart: 05-11-2014 End: 36-36-6287deuolpxmdwm (FLONASE) 50 MCG/ACT nasal spray Indications: Allergic rhinitis 2 sprays by Nasal routedaily. 1 Bottle 0 05/11/2014 10/17/2024 Discontinued (LIST CLEANUP)insulin lispro 100 unt/ml injectable solution (2 sources)Insulin AnalogStart: 12-20-2024 End: 12-41-6080dmyfet 1 dose by subcutaneous injection once20 Units, [...] injection 75 mL (2 sources)Start: 12-20-2024 End: 77-36-2497pkvq 1 dose intravenously once75 mL, IntraVENous, IMG ONCE PRN, 1 dose, Starting on Wed12/20/24 at 1933, Until Wed12/20/24 at 2040, OtherStart: 10-17-2024 End: 73-36-9661zavp 1 dose intravenously once75 mL, IntraVENous, IMG ONCE PRN, 1 dose, Starting on Wed10/17/24 at 0935, Until Wed10/17/24 at 0952, Other loratadine 10 mg oral capsule (1 source) End: 59-78-3430vzly 1 capsule by mouth once dailyLoratadine (CLARITIN) 10 MG CAPS Take 1 capsule by mouth daily 10/17/2024 Discontinued (LIST CLEANUP) meclizine hydrochloride 12.5 mg oral tablet (1 source)AntiemeticStart: 03-14-2014 End: 89-26-9247adoh 1 tablet by mouth twice daily as needed for dizziness meclizine (ANTIVERT) 12.5 MG tablet Indications: BPPV (benign paroxysmal positional vertigo), unspecified laterality Take one (1) tablet by mouth twice a day as needed for dizziness 20 tablet 0 03/14/2014 10/17/2024 Discontinued (LIST CLEANUP)meloxicam 15 mg oral tablet (1 source)Nonsteroidal Anti-inflammatory DrugStart: 08-14-2013 End: 58-00-6703vmwg 1 tablet by mouth once dailymeloxicam (MOBIC) 15 MG tablet Take 1 tablet by mouth daily. 30 tablet 3 08/14/2013 10/17/2024 Discontinued (LIST CLEANUP)metFORMIN hydrochloride 500 mg oral tablet (20 sources)BiguanideStart: 10-13-2023 End: 55-49-0488tgkl 1 tablet by mouth in the morning, then take 1 tablet by mouth at mealtimemetFORMIN (GLUCOPHAGE) 500 mg tablet Take 1 tablet (500 mg total) by mouth in the morning and 1 tablet (500 mg total) in the evening. Take with meals. 180 tablet 1 10/13/2023 01/30/2025 Discontinuedmethocarbamol 500 mg oral tablet (1 source)Muscle RelaxantStart: 08-14-2013 End: 20-16-6373dcco 1 tablet by mouth three times daily as neededmethocarbamol (ROBAXIN) 500 MG tablet Take 1 tablet by mouth 3 times daily as needed. 40 tablet 3 08/14/2013 10/17/2024 Discontinued (LIST CLEANUP)methylPREDNISolone 4 mg oral tablet (1 source)CorticosteroidStart: 04-07-2017 End: 30-52-9086zhkzrvMORLIOSlqpmo 4 MG Tab Medrol dos pack- as directed 21 tablet 0 04/07/2017 07/10/2021 Discontinuednaratriptan 2.5 mg oral tablet (1 source)Serotonin-1b and Serotonin-1d Receptor AgonistStart: 04-07-2017 End: 22-81-3675angcvmhzrdh (AMERGE) 2.5 MG Tab 1 po prn headache max 5mg/day; may repeat in 4 hr x1 8 tablet 1 04/07/2017 07/10/2021 Discontinuedondansetron 4 mg disintegrating oral tablet (1 source)Serotonin-3 Receptor AntagonistStart: 07-12-2022 End: 72-92-0711ocdq 1 tablet by mouth every eight hours as needed for nausea ondansetron ODT (ZOFRAN ODT) 4 mg disintegrating tablet Dissolve 1 tablet (4 mg total) on tongue every 8 (eight) hours as needed for nausea for up to 10 doses. 10 tablet 0 07/12/2022 08/27/2023 Discontinued (Therapy completed)promethazine hydrochloride 25 mg oral tablet (1 source)PhenothiazineStart: 04-07-2017 End: 33-55-7169seti 1 tablet by mouth every eight hours as needed for nausea promethazine 25 MG Tab tablet 1 po q 8 hours prn nausea 10 tablet 1 04/07/2017 07/10/2021 Owkwflkbhyjb29 ml sodium chloride 9 mg/ml injection (10 sources)Start: 26-07-5425Ffgbe: 12-20-2024 End: 20-89-4860ZszfbFWSqho, at 100 mL/hr, CONTINUOUS, Starting on Wed12/21/24 at 0145, For 24 hours, Complete lastbag that is running at 24 hours and then saline lock IVStart: 10-17-2024 End: 71-26-4120QluffOFCjyz, at 50 mL/hr, CONTINUOUS, Starting on Wed10/17/24 at 0200Start: 29-31-3798Rzkva: mL, IntraVENous, EVERY 12 HOURS SCHEDULED (2 times per day), First dose on Wed10/16/24 at 2315, Until DiscontinuedStart: 95-83-4936hoicqpgfnok 250 mg oral tablet (16 sources)Allylamine AntifungalStart: 10-08-2023 End: 72-21-2112dqqpoufblbr (LamISIL) 250 mg tablet 10/08/2023 01/29/2025 Discontinued Problems Active Problems Problem ClassificationProblemDateDocumented DateEpisodic/ChronicAbdominal pain (2 sources)Pain in pelvis; Translations: [Pelvic and perineal pain]Onset: 505743-19-8094HlgkbzqwGriodyr disorders (1 source)Feeling irritable; Translations: [Irritability and anger]12-20-2024 EpisodicCancer; other and unspecified primary (3 sources)History of gynecological disorder; Translations: [Personal history of other benign neoplasm]87-38-9306NqgjjzjjIzboup; other and unspecified primary (2 sources)Personal history of other benign neoplasm; Translations: [Personal history of other benign neoplasm]Onset: 20-40-4758TmqhmpfmYcguhpmekuurt of surgical procedures or medical care (2 sources)Postablative hypothyroidism; Translations: [Postprocedural hypothyroidism]63-58-7478UubsmroKrhbfzqu mellitus with complications (20 sources)Type 2 diabetes mellitus with hyperglycemia; Translations: [Other specified diabetes mellitus with hyperglycemia]Onset: ChronicDisorders of lipid metabolism (2 sources)Hyperlipidemia, unspecified; Translations: [Hyperlipidemia]Onset: 876877-13-4212OhkzzkvDivwqzdl; including migraine (20 sources)Migraine; Translations: [Migraine, unspecified, not intractable, without status migrainosus]Onset: 970633-31-4074SohxzciFbydkqtelbwwr and screening for infectious disease (8 sources)Abnormal blood test; Translations: [Abnormal immunological finding in serum, unspecified]Onset: 10-29-2016 Resolved: 778923-48-8090OcygzfiqIpdpgdasvniu; infection of eye (except that caused by tuberculosis or sexually transmitteddisease) (1 source)Keratoconjunctivitis sicca; Translations: [Keratoconjunctivitis sicca, not specified as Sjogren's, unspecified eye]Onset: hronic Inflammatory diseases of female pelvic organs (2 sources)Acute vaginitis; Translations: [Acute vaginitis]Onset: 12-06-2024 48-10-3439WytignzbKbpmztd and fatigue (8 sources)Fatigue; Translations: [Other fatigue]Onset: EpisodicMenopausal disorders (2 sources)Menopausal syndrome; Translations: [Menopausal and female climacteric states]76-61-1449DimtzkfYtnpcmzei disorders (1 source)Menorrhagia; Translations: [Excessive and frequent menstruation with regular cycle]32-02-8699OauedftNrdbrvb (10 sources)Onychomycosis; Translations: [Tinea unguium]55-48-7491Rwgqnkci Nonmalignant breast conditions (11 sources)Discharge from nipple; Translations: [Nipple discharge]Onset: 038613-52-8254QvyegihaXeegbddvmka deficiencies (20 sources)Vitamin D deficiency; Translations: [Vitamin D deficiency, unspecified]Onset: 203423-54-3609QhwaasbIpulqddzqrktmm (20 sources)Osteoarthritis of joint of right hand; Translations: [Primary osteoarthritis, right hand]Onset: 93-30-2599SyxtqzzNzubv aftercare (6 sources)Patient encounter status; Translations: [[facility] (current) use of non-steroidal anti-inflammatories (NSAID)]Onset: 10-29-2016 Resolved: 100558-55-9561EvrvncajFyoty connective tissue disease (2 sources)Other symptoms and signs involving the musculoskeletal system; Translations: [Other musculoskeletalsymptoms referable to limbs]Onset: 292514-45-9608NptaevymYejns nervous system disorders (20 sources)Tarsal tunnel syndrome; Translations: [Tarsal tunnel syndrome, unspecified lower limb]Onset: 694304-18-4173QyyvvkfXtzuu nervous system disorders (1 source)Polyneuropathy in diseases classified elsewhere; Translations: [Polyneuropathy in diseases classified elsewhere]Onset: 57-71-1930TzjfxboQvujw nervous system disorders (2 sources)Polyneuropathy; Translations: [Polyneuropathy, unspecified]04-26-2025 ChronicOther nervous system disorders (1 source)Impaired cognition; Translations: [Other symptoms and signs involving cognitive functions and awareness]84-34-2763YfjtuoplKnatp non-traumatic joint disorders (2 sources)Pain in left knee; Translations: [Pain in joint, lower leg]Onset: 385102-30-0758XpbrflnaSycik nutritional; endocrine; and metabolic disorders (3 sources)Obese class II; Translations: [Obesity, unspecified]Onset: 07-10-2021 23-16-7665TkhthxfTxiol nutritional; endocrine; and metabolic disorders (1 source)Peripheral neuropathy due to metabolic disorder; Translations: [Metabolic disorder, unspecified]28-15-2362IuqzxpkYgdgc nutritional; endocrine; and metabolic disorders (1 source)Metabolic disorder, unspecified; Translations: [Metabolic disorder, unspecified]Onset: 84-80-3289HmsxnjgXnpst screening for suspected conditions (not mental disorders or infectious disease) (6 sources)Encounter for screening mammogram for malignant neoplasm of breast; Translations: [Encounter for screening for malignant neoplasm of colon]Onset: 796868-20-6508EltkcinnXxxtc upper respiratory disease (20 sources)Allergic rhinitis; Translations: [Allergic rhinitis, unspecified] Onset: 261538-55-1773WpjewcfVlvsguhl codes; unclassified (1 source)Edema; Translations: [Edema, unspecified]51-63-4062Oaaryoes Spondylosis; intervertebral disc disorders; other back problems (20 sources)Degeneration of lumbar intervertebral disc; Translations: [Other intervertebral disc degeneration, lumbar region]Onset: 09-65-5282Buxluuv Substance-related disorders (4 sources)Smoker; Translations: [Nicotine dependence, unspecified, uncomplicated]33-77-4032CpkfxgpGacupfuo lupus erythematosus and connective tissue disorders (20 sources)Sjogren's syndrome; Translations: [Sicca syndrome, unspecified] Onset: 06-14-2015 Resolved: 37-91-2216MeipkgyRfennky disorders (20 sources)Hypothyroidism; Translations: [Hypothyroidism, unspecified]Onset: 10-22-8822SzpfwamYxmsnacxtfnx (1 source)High Blood Sugar - SymptomaticOnset: 21-67-1329Gwimgwrxgdev (1 source)EMSOnset: 57-83-5024Nomfbompddaj (1 source)HRTOnset: 70-59-5027Ipvnzdlclbzq (1 source)Annual ExamOnset: 00-70-3178Vfhpx infection (2 sources)COVID-19; Translations: [Disease caused by 2018-nCoV]Onset: 03-19-2022 Past or Other Problems Problem ClassificationProblemDateDocumented DateEpisodic/ChronicAllergic reactions (20 sources)Allergic disorder; Translations: [Allergy, unspecified, initial encounter]Onset: 880089-61-9826PtxyaejqLayaei of cervix (20 sources)Malignant tumor of cervix; Translations: [Malignant neoplasm of cervix uteri, unspecified]Onset: 10-29-2016 Resolved: 479257-56-4204FxtbyfdNxwhdb of cervix (1 source)History of malignant neoplasm of cervix; Translations: [Personal history of malignant neoplasm of cervix uteri]27-34-1408BbpxsokiUykszegk mellitus without complication (20 sources)Hyperglycemia; Translations: [Hyperglycemia, unspecified]Onset: 74-03-1399ErofphmkJolgpyuc of mouth; excluding dental (8 sources)Xerostomia; Translations: [Disturbances of salivary secretion]Onset: 38-48-5451RlacklidOsga disorders (20 sources)Mood disordersOnset: 09-01-2023 Resolved: Nausea and vomiting (4 sources)Nausea; Translations: [NAUSEA]Onset: 24-68-2250CwxlakgwTlgtu aftercare (3 sources)Drug therapy finding; Translations: [Other assisted (current) drug therapy]Onset: 10-29-2016 Resolved: 206904-68-4268OfelakthGbukh aftercare (1 source)[facility] current use of non-steroidal anti-inflammatory drug; Translations: [[facility] (current) use of non-steroidal anti-inflammatories (NSAID)]Onset: 10-29-2016 Resolved: 566225-80-5954HbpmczxiAnuvn bone disease and musculoskeletal deformities (20 sources)Disorder of skeletal system; Translations: [Disorder of bone, unspecified]Onset: 933623-37-4497KsjxarnmYbjko circulatory disease (20 sources)Telangiectasia of skin of face; Translations: [Nevus, non-neoplastic]Onset: 17-62-6174ZrorgtmzCfask connective tissue disease (3 sources)Pain in right hand; Translations: [Pain in right hand]Onset: 279863-52-0095GjbagktfCqvhb connective tissue disease (3 sources)Pain in left foot; Translations: [Pain in left foot]Onset: 10-29-2016 67-20-6940NpbmzkttOvuit connective tissue disease (14 sources)Swelling of bilateral lower limbs; Translations: [Other specified soft tissue disorders]Onset: 10-17-2024 Resolved: 742702-10-7247XnnzretaOoylw connective tissue disease (1 source)Other specified soft tissue disorders; Translations: [Other specified soft tissue disorders]Onset: 19-04-0169FrbsrfzmHarrz eye disorders (4 sources)Dry eyes; Translations: [Dry eye syndrome of bilateral lacrimal glands]Onset: 77-92-2725RfqeiozuPsepv female genital disorders (19 sources)History of abnormal cervical Papanicolaou smear ; Translations: [Personal history of other diseasesof the female genital tract]Onset: 10-13-2023 68-89-2756GagerflsLtrfn infections; including parasitic (1 source)Scabies; Translations: [Scabies B86]Onset: 05-02-2021 Resolved: 58-46-4904BazuvwccBxtpe nervous system disorders (20 sources)Neurological finding; Translations: [Other abnormal involuntary movements]Onset: 34-77-5302HhkikitsFhizz non-traumatic joint disorders (3 sources)Shoulder pain; Translations: [Pain in unspecified shoulder]Onset: 920436-95-7414AercysdcLbiks non-traumatic joint disorders (11 sources)Pain in left shoulder; Translations: [Pain in joint, shoulder region] Resolved: 780440-27-5561JkozohouSpqod nutritional; endocrine; and metabolic disorders (1 source)History of Graves' disease; Translations: [Personal history of other endocrine, nutritional and metabolic disease]15-74-3943TflvmbhjFqdoq nutritional; endocrine; and metabolic disorders (1 source)Weight loss; Translations: [Abnormal weight loss]78-02-9131Uzfkjqco Other skin disorders (5 sources)Hyperpigmentation of skin; Translations: [Disorder of pigmentation, unspecified]Onset: 93-46-5187KlomtxgbRckzr upper respiratory infections (1 source)Acute upper respiratory infection, unspecified; Translations: [Viral upper respiratory illness J06.9]Onset: 05-02-2021 Resolved: 72-73-8460PjjbelysXohpukap codes; unclassified (3 sources)Noncompliance with treatment; Translations: [Patient's noncompliance with other medical treatment and regimen]Onset: 122677-11-3015Tfzfqaft Residual codes; unclassified (13 sources)Noncompliance with medication regimen; Translations: [Non compliance w medication regimen]Onset: 214179-00-1410EgsybqzmFrhsyovq codes; unclassified (12 sources)Bilateral lower limb edema; Translations: [Localized edema]Onset: 583930-57-8762PerduiqdDoxuzaty codes; unclassified (12 sources)Edema, generalized; Translations: [Generalized edema]Onset: 770719-32-6024VrpbopczQwzadpxc codes; unclassified (1 source)Edema, unspecified; Translations: [Edema, unspecified]Onset: 22-48-5536MteiblnxPemnvqtyonr; intervertebral disc disorders; other back problems (20 sources)Neck pain; Translations: [Cervicalgia]Onset: 10-29-2016 Resolved: 819291-52-7067VwjpjniaFhwuuqscsftp (20 sources)Onset: Results Test NameValueInterpretationReference RangeFacilityProt. ElectrophCharly 54-26-8955Ajgohtdynyq Review:ELECTRONICALLY SIGNED. KAILEE FERNANDEZ M.D. City HospitalComment on above:Performed By: #### INSU #### [facility] [place] [id number] Vice President Of Customer Service: Gee Royal MD [facility] [address] [place] [address] [place] [place], [place] [id number] Vice President Of Customer Service: Loreta Zelaya MD #### CPEP #### [address] [address] Vice President Of Customer Service: Gee Royal MDAlbumin [Mass/Vol]4.1 g/dLNormal3.2-5.2MWestern Reserve HospitalComment on above:Performed By: #### INSU #### [address] [address] Vice President Of Customer Service: Gee Royal MD [address] [place], [place] 5752783 Vice President Of Customer Service: Loreta Zelaya MD #### CPEP #### [address] [address] Vice President Of Customer Service: Bill Pinedabumin, %58 %Cgzagw33-28MdryyKettering Health – Soin Medical Center Comment on above:Performed By: #### INSU #### [address] [address] Vice President Of Customer Service: Gee Royal MD [facility] [address] [place] [address] [place], [place] [id number] Vice President Of Customer Service: Loreta Zelaya MD #### CPEP #### [address] [address] Vice President Of Customer Service: Gee Royal MDAWZEabdl-8-.3 g/dLNormal0.1-0.4[facility] So[facility] Medical CenterComment on above:Performed By: #### INSU #### [address] [address] Vice President Of Customer Service: Gee Royal MD [facility] [address] [place] [address] [place] [address] Vice President Of Customer Service: Loreta Zelaya MD #### CPEP #### [place] [address] [place] [address] Vice President Of Customer Service: Gee Royal MDAlpha-1-globulins,%4 %Normal3-5Mer[facility] Day Kimball HospitalComment on above:Performed By: #### INSU #### [address] [address] Vice President Of Customer Service: Gee Royal MD [address] [place] 3702383 Vice President Of Customer Service: Loreta Zelaya MD #### CPEP #### [address] [address] Vice President Of Customer Service: Gee Royal MDAZGPaxvs-4-hocvfyonk0.7 g/dLNormal0.5-0.9[facility] Medical CenterComment on above:Performed By: #### INSU #### [address] [address] Vice President Of Customer Service: Gee Royal MD [address] [place] 3702383 Vice President Of Customer Service: Loreta Zelaya MD #### CPEP #### [address] [address] Vice President Of Customer Service: Gee Royal MDAlpha-2-globulins,%10 %Normal7-12[facility] Centercy Day Kimball HospitalComment on above:Performed By: #### INSU #### [address] [address] Vice President Of Customer Service: Gee Royal MD [address] [place] 3702383 Vice President Of Customer Service: Loreta Zelaya MD #### CPEP #### [address] [address] Vice President Of Customer Service: Gee Royal MDBeta-globulins0.9 g/dLNormal0.7-1.4[facility] HospitalComment on above:Performed By: #### INSU #### [address] [address] Vice President Of Customer Service: Gee Royal MD [address] [place], [place] 0824183 Vice President Of Customer Service: Loreta Zelaya MD #### CPEP #### [address] [address] Vice President Of Customer Service: Gee Royal MDBeta-globulins,%13 %Normal8-13[facility] So[facility] Medical CenterComment on above:Performed By: #### INSU #### [address] [address] Vice President Of Customer Service: Gee Royal MD [address] [place] [address] Vice President Of Customer Service: Loreta Zelaya MD #### CPEP #### [address] [address] Vice President Of Customer Service: Gee Royal MDGamma-globulins1.1 g/dLNormal0.5-1.5[facility] Medical CenterComment on above:Performed By: #### INSU #### [address] [address] Vice President Of Customer Service: Gee Royal MD [address] [place] 3702383 Vice President Of Customer Service: Loreta Zelaya MD #### CPEP #### [address] [address] Vice President Of Customer Service: Gee Royal MDGamma-globulins,%15 %Wkikwc80-87XnrlsKettering Health – Soin Medical CenterComment on above:Performed By: #### INSU #### [address] [address] Vice President Of Customer Service: Gee Royal MD [address] [place] [address] Vice President Of Customer Service: Loreta Zelaya MD #### CPEP #### [address] [address] Vice President Of Customer Service: Alisha Pineda. Elect-InterpNormal electrophoretic pattern.NormalMercy Day Kimball HospitalComment on above:Performed By: #### INSU #### [address] [address] Vice President Of Customer Service: Gee Royal MD [address] [place] [address] Vice President Of Customer Service: Loreta Zelaya MD #### CPEP #### [address] [address] Vice President Of Customer Service: Gee Royal MDTotal Prot. Sum7.1 g/dLNormal6.3-8.2MercThe Institute of LivingComment on above:Performed By: #### INSU #### [address] [address] Vice President Of Customer Service: Gee Royal MD [address] [place] [address] Vice President Of Customer Service: Loreta Zelaya MD #### CPEP #### [address] [address] Vice President Of Customer Service: Amy Pineda Prot. Sum,%100 %Ltssht57-861IuqmyKettering Health – Soin Medical CenterComment on above:Performed By: #### INSU #### [address] [address] Vice President Of Customer Service: Gee Royal MD [address] [place] [address] Vice President Of Customer Service: Loreta Zelaya MD #### CPEP #### [address] [address] Vice President Of Customer Service: Gee Royal MDB12/Folate Panelon 43-72-0964Gwedodcdj (Vitamin B12) [Mass/Vol]391 pg/iBKinqls545-8439Mwwbe Tiffin HospitalComment on above: Performed By: #### BMP #### [facility] [address] [place] [address] Vice President Of Customer Service: Alfie Frazier Acid37.3 ng/mLHigh4.8-24.2MWestern Reserve HospitalComment on above:Performed By: #### BMP #### [facility] [address] [place] [address] Vice President Of Customer Service: RUTH FrazierBC 77-42-0836Osrlqlihysx distribution width (RBC) [Ratio]13.3 %11.8 - 14.4 %[facility] Careplex HospitalHematocrit (Bld) [Volume fraction]44.9 %36.3 - 47.1 %[facility] HospitalHemoglobin (Bld) [Mass/Vol] 14.9 g/dL11.9 - 15.1 g/dLBon [facility] & Brentwood HospitalInterpretation and review of laboratory resultsAbnormalMountain View Regional Medical Center (RBC) [Entitic mass]29 pg 25.2 - 33.5 pgInova Children's HospitalHC (RBC) [Mass/Vol]33.2 g/dL28.4 - 34.8 g/dLBon Mansfield HospitalV (RBC) [Entitic vol]87.5 fL82.6 - 102.9 fLSentara Careplex HospitalNucleated RBC/100 WBC (Bld) [Ratio]0 %0.0 per 100 WBCSentara Careplex HospitalPlatelet mean volume (Bld) [Entitic vol]9.7 fL8.1 - 13.5 fL [facility] Care[facility] HospitalPlatelets (Bld) [#/Vol]306 10*3/uLSentara Careplex HospitalRBC (Bld) [#/Vol]5.13 10*6/uLHigh3.95 - 5.11 m/uLSentara Careplex Hospital WBC other (Bld) [#/Vol]5.9Bon [facility] & Brentwood HospitalBon [facility] Erythrocyte distribution width (RBC) [Ratio]13.3 %Nvveql60.8-14.4[facility] HospitalComment on above:Performed By: #### BMP #### [address] [place], [place] 0337283 Vice President Of Customer Service: Loreta Zelaya MDHematocrit (Bld) [Volume fraction]44.9 %Normal 36.3-47.1MSycamore Medical Center HospitalComment on above:Performed By: #### BMP #### [address] [place], [place] 8442783 Vice President Of Customer Service: Loreta Zelaya MDHemoglobin (Bld) [Mass/Vol]14.9 g/dLNormal 11.9-15.1MSycamore Medical Center HospitalComment on above:Performed By: #### BMP #### [address] [place], [place] 1363083 Vice President Of Customer Service: MIGUELINA FrazierCH (RBC) [Entitic mass]29.0 jqDkygji06.2-33.5 [facility] HospitalComment on above:Performed By: #### BMP #### [address] [place], [place] 7580383 Vice President Of Customer Service: KELLI FrazierC (RBC) [Mass/Vol]33.2 g/pBXajotr23.4-34.8[facility] HospitalComment on above:Performed By: #### BMP #### [address] [place], [place] 6935983 Vice President Of Customer Service: MIGUELINA FrazierCV (RBC) [Entitic vol]87.5 eKVheguo06.6-102.9 [facility] HospitalComment on above:Performed By: #### BMP #### [address] [place] [address] Vice President Of Customer Service: TYREL Frazier Automated0.0 per 100 WBCNormal0.0[facility] CenterComment on above:Performed By: #### BMP #### [address] [place] [address] Vice President Of Customer Service: Helena Frazier mean volume (Bld) [Entitic vol]9.7 fL Normal8.1-13.5[facility] Medical CenterComment on above:Performed By: #### BMP #### [address] [place] [address] Vice President Of Customer Service: Luna Frazier (Bld) [#/Vol]306 10*3/nNZbucdy953-781 [facility] HospitalComment on above:Performed By: #### BMP #### [address] [place] [address] Vice President Of Customer Service: SARA Frazier (Bld) [#/Vol]5.13 10*6/uLHigh3.95-5.11[facility] CenterComment on above:Performed By: #### BMP #### [address] [place] [address] Vice President Of Customer Service: TSERING Frazier (Bld) [#/Vol]5.9 10*3/uLNormal3.5-11.3MWestern Reserve HospitalComment on above:Performed By: #### BMP #### [address] [place] [address] Vice President Of Customer Service: Loreta Zelaya MDCKon 35-75-2386MQ [Catalytic activity/Vol]26 U/L26 - 192 U/LBon [facility] SecSelect Medical [facility] Clinic Rehabilitation Hospital, BeachwoodCreatine Kinaseon 24-98-9869KO [Catalytic activity/Vol]26 U/GApcmra42-585WzmejKettering Health – Soin Medical Center Comment on above:Performed By: #### CDP #### [address] [place] 1043283 Vice President Of Customer Service: Loreta Zelaya MDEstradiolon 48-61-0267Ssqtsxbtv32.0 pg/mLSentara Careplex HospitalComment on above: FEMALES: Normally menstruating Luteal phase 60-232 Follicular phase 31-90 Midcycle phase 60-533 Postmenopausal (untreated) <138 Fulvestrant treatment will show an increased estradiol concentration with this methodology. Alternate methodologies are available upon request. Kniiflzhz23.0 pg/mLNOhioHealth Southeastern Medical CenterComment on above:Result Comment: FEMALES: Normally menstruating Luteal phase 60-232 Follicular phase 31-90 Midcycle phase 60-533 Postmenopausal (untreated) <138 Fulvestrant treatment will show an increased estradiol concentration with this methodology. Alternate methodologies are available upon request.Performed By: #### BMP #### [address] [place], [place] 9812483 Vice President Of Customer Service: Loreta Zelaya MDFollicle Stim. Hormon 50-67-9973Uczoeutm Stim. Horm4.8 mIU/mLNOhioHealth Southeastern Medical CenterComment on above:Result Comment: Reference Range: Male: 1.5-12.4 Ovulating Female: Follicular Phase 3.5-12.5 Ovulation Phase 4.7-21.5 Luteal Phase 1.7-7.7 Postmenopausal Female: 25.8-134.8Performed By: #### VBG #### [address] [place] [address]83 Vice President Of Customer Service: Loreta Zelaya MDFollicle Stimulating Hormoneon 02-08-2025 Follitropin Qn4.8 m[IU]/mLmIU/mLSentara Careplex HospitalComment on above: Reference Range: Male: 1.5-12.4 Ovulating Female: Follicular Phase 3.5-12.5 Ovulation Phase 4.7-21.5 Luteal Phase 1.7-7.7 Postmenopausal Female: 25.8-134.8 HCG, Quanton 80-37-9181XYY, Quant<0.2Tqjbet6-7TccmxKettering Health – Soin Medical CenterComment on above:Result Comment: Non-preg premeno <=5 Postmeno <=8 Male <=3 If HCG results do not concur with clinical observations, additional testing to confirm results is recommended.Performed By: #### BMP #### [address] [place] [address] Vice President Of Customer Service: Loreta Zelaya MDHCG, Quantitative, Pregnancyon 46-57-1875PGC.beta subunit QnBon [facility] & Brentwood HospitalComment on above: Non-preg premeno <=5 Postmeno <=8 Male <=3 If HCG results do not concur with clinical observations, additional testing to confirm results is recommended. [facility] Careplex HospitalLuteinizing Hormoneon 81-17-4837Xlnhegfz Qn2.8 m[IU]/mL [facility] HospitalComment on above:Reference Range: Male: 1.7-8.6 Ovulating Female: Follicular Phase 2.4-12.6 Ovulation Phase 14.0-95.6 Luteal Phase 1.0-11.4 Postmenopausal Female: 7.7-58.5 Luteinizing Hormone2.8 mIU/mLNormal1.7-8.6[facility] HospitalComment on above: Result Comment: Reference Range: Male: 1.7-8.6 Ovulating Female: Follicular Phase 2.4-12.6 Ovulation Phase 14.0-95.6 Luteal Phase 1.0-11.4 Postmenopausal Female: 7.7-58.5Performed By: #### VBG #### [address] [place] [address] Vice President Of Customer Service: Loreta Zelaya MDNo Panel Informationon 30-75-5935Tds [facility] & Brentwood HospitalProgesteroneon 16-20-5924Jrcvvgtxqlaf [Mass/Vol]2.57 ng/mLSentara Careplex HospitalComment on above: Female: Follicular phase <0.19 ng/mL Ovulation phase 0.06-4.14 ng/mL Luteal phase 4.11-14.5 ng/mL Postmenopausal <0.13 ng/mL Progesterone2.57 ng/mLNormalMercy Day Kimball HospitalComment on above:Result Comment: Female: Follicular phase <0.19 ng/mL Ovulation phase 0.06-4.14 ng/mL Luteal phase 4.11-14.5 ng/mL Postmenopausal <0.13 ng/mLPerformed By: #### VBG #### [address] [place] [address] Vice President Of Customer Service: SUZY Frazierrolactincedrick 63-26-9459Rdjyaqxiaflccn and review of laboratory resultsAbnormalSentara Careplex HospitalProlactin [Mass/Vol]4.73 ng/mLLow4.79 - 23.3 ng/mLSentara Careplex HospitalComment on above:The presence of macroprolactin may cause interference in female patients with various endocrinological diseases or during . [facility]plex HospitalProlactin4.73 ng/mLLow4.79-23.3MWestern Reserve Hospital Comment on above:Result Comment: The presence of macroprolactin may cause interference in female patients with various endocrinological diseases or during .Performed By: #### BMP #### [address] [place] [address] Vice President Of Customer Service: Alisha Frazier. Electroph, Blon 59-74-8722Cdtrwtj [Mass/Vol] 7.0 g/dLNormal6.6-8.7[facility] Medical CenterComment on above:Performed By: #### INSU #### [place] [address] Vice President Of Customer Service: Gee Royal MD [address] [place] [address] Vice President Of Customer Service: Loreta Zelaya MD #### CPEP #### [facility] [address] [place], [place] [phone] Vice President Of Customer Service: QUAN Pinedaedimentation Rateon 52-12-1189XKV Photometric method (Bld) [Velocity]21HighSentara Careplex HospitalInterpretation and review of laboratory resultsAbnormalBon [facility] Sedimentation Rate21 mm/HrHigh0-20[facility] CenterComment on above: Performed By: #### CDP #### [address] [place], [place] 4115883 Vice President Of Customer Service: Loreta Zelaya MDT4, Free 95-86-3327Zwts T4 [Mass/Vol]0.5 ng/dL Low0.92 - 1.68 ng/dLBon [facility] & Brentwood HospitalInterpretation and review of laboratory resultsAbnormDickenson Community HospitalTSHon 38-05-2617Rvkigcmeoqflvf and review of laboratory resultsAbnormDickenson Community HospitalTS Qn15.5 m[IU]/LHighBon [facility] HospitalTestosteroneon 32-85-6015Xxxbhjxljhnb [Mass/Vol]14 ng/dL8 - 48 ng/dLBon [facility] Memorial HospitalTestosterone, Totalon 52-24-0036Bykfkxobhhhm [Mass/Vol]14 ng/dLNormal8-48[facility] CenterComment on above:Performed By: #### VBG #### [address] [place], [place] 8007983 Vice President Of Customer Service: Loreta Zelaya MDThyroid Stim. Horm.on 98-16-8188Kbwufws Stim. Horm.15.50 uIU/mLHigh0.27-4.20[facility] CenterComment on above:Performed By: #### BMP #### [address] [place], [place] 9964983 Vice President Of Customer Service: Loreta Zelaya MDThyroxine, Children'S National Medical Centeron 95-09-4577Hicnwjtfx, Free0.5 ng/dLLow0.92-1.68[facility] CenterComment on above:Performed By: #### VBG #### [address] [place], [place] 4252483 Vice President Of Customer Service: Loreta Zelaya MDVitamin B12 & Folateon 04-93-9065Givxjotao (Vitamin B12) [Mass/Vol]391 pg/mL232 - 1245 pg/mLSentara Careplex HospitalFolate [Mass/Vol]37.3 ng/mLHigh4.8 - 24.2 ng/mLSentara Careplex HospitalInterpretation and review of laboratory resultsAbnormalBon [facility] HospitalACETONE,(BETAHYDROXYBUTYRATE, KETONE) QUANTITATIVE SERUMon 41-46-8795MEEEAIWYOIGXPQWOSFK3.13 mmol/LNormal0.02-0.27St. [facility]'s HospitalComment on above:Performed By: #### KETB #### [facility] ([address] [address] VIRB-TYPE NATRIURETIC PEPTIDEon 85-16-1741Zizyqbjpvop peptide B (Bld) [Mass/Vol]16 pg/mLNormal<=100St. [facility]'s HospitalComment on above: Performed By: #### BNP #### [facility] ([address] [address] VIRBEDSIDE GLUCOSEon 87-72-9959Nyvpnfb [Mass/Vol]306 mg/dLHigh 65-99St. [facility]'s HospitalComment on above:Performed By: #### BEDG #### [facility] ([address] [address] VIRGlucose [Mass/Vol]476 mg/dLCritically eyeg35-78VocGmidvgSt. Anthony's HospitalComment on above:Performed By: #### BEDG #### [facility] ([address] [address] VIRCBC WITH AUTO DIFFERENTIALon 21-81-4560ZDDKPOWMN ABSOLUTE COUNT (10*3/UL) BY AUTOMATED COUNT0.0 10*3/uLNormal0.0-0.2PPremier Health Miami Valley Hospital SouthComascension river district hospital on above:Performed By: #### CBCA #### [facility] ([address] [address] VIRBASOPHILS RELATIVE PERCENT BY AUTOMATED COUNT0.6 %Normal St. Anthony's HospitalComment on above:Performed By: #### CBCA #### [facility] ([address] [place] [address] VIRCELLAVISION DIFFERENTIAL TYPEAUTOMATED DIFFERENTIALNormal St. Anthony's HospitalComascension river district hospital on above:Performed By: #### CBCA #### [facility] ([address] [place] [address] VIREosinophils (Bld) [#/Vol]0.1 10*3/uLNormal0.0-0.4St. [facility]'s HospitalComascension river district hospital on above:Performed By: #### CBCA #### [facility] ([address] [place] [address] VIREOSINOPHILS RELATIVE PERCENT BY AUTOMATED COUNT2.1 %Normal [facility] Anthony's HospitalComascension river district hospital on above:Performed By: #### CBCA #### [facility] ([address] [place] [address] VIRErythrocyte distribution width (RBC) [Ratio]13.1 %Normal 11.5-15ProTyler County HospitalComascension river district hospital on above:Performed By: #### CBCA #### [facility] ([address] [place] [address] VIRHematocrit (Bld) [Volume fraction]41.3 %Uozmpy23-24 ProMThompson Memorial Medical Center HospitalComascension river district hospital on above:Performed By: #### CBCA #### [facility] ([address] [place] [address] VIRHemoglobin (Bld) [Mass/Vol]14.0 g/dFGcnbyv07.7-15.5 [facility]'s HospitalComascension river district hospital on above:Performed By: #### CBCA #### [facility] ([address] [place] [address] VIRLYMPHOCYTES ABSOLUTE COUNT (10*3/UL) BY AUTOMATED COUNT1.9 10*3/uLNormal1.0-3.5PPremier Health Miami Valley Hospital SouthComment on above:Performed By: #### CBCA #### [facility] ([address] [place] [address] VIRLYMPHOCYTES RELATIVE PERCENT BY AUTOMATED COUNT31.7 %Normal St. Anthony's HospitalComment on above:Performed By: #### CBCA #### [facility] ([address] [place] [address] VIRMCH (RBC) [Entitic mass]29.1 zcUgbqdx15-03XebByebboTyler County HospitalComment on above:Performed By: #### CBCA #### [facility] ([address] [place] [address] VIRMCHC (RBC) [Mass/Vol]33.9 g/rVMggfwo16-09QnuTfeotkSt. Anthony's HospitalComment on above:Performed By: #### CBCA #### [facility] ([address] [place] [address] VIRMCV (RBC) [Entitic vol]86 oPPeodhm52-825SklKpejvd [place]remont HospitalComment on above:Performed By: #### CBCA #### [facility] ([address] [place] [address] VIRMONOCYTES ABSOLUTE COUNT (10*3/UL) BY AUTOMATED COUNT0.4 10*3/uLNormal0.0-0.9St. Anthony's HospitalComment on above:Performed By: #### CBCA #### [facility] ([address] [place] [address] VIRMONOCYTES RELATIVE PERCENT BY AUTOMATED COUNT5.9 %Normal St. Anthony's HospitalComment on above:Performed By: #### CBCA #### [facility] ([address] [place] [address] VIRNEUTROPHILS ABSOLUTE COUNT BY AUTOMATED COUNT3.6 10*3/uL Normal1.5-6.6St. Anthony's HospitalComment on above:Performed By: #### CBCA #### [facility] ([facility]) [address] [place] [address]. [place] [address] VIRNEUTROPHILS RELATIVE PERCENT BY AUTOMATED COUNT59.7 %Normal St. Anthony's HospitalComment on above:Performed By: #### CBCA #### [facility] ([address] [place] [address] VIRPlatelet mean volume (Bld) [Entitic vol]7.[address]LNormal7-12 [address] [facility] HospitalComment on above:Performed By: #### CBCA #### [facility] ([address] [place] [address] VIRPlatelets (Bld) [#/Vol]256 10*3/dTRyquzm138-819HydPrngjn [facility] HospitalComment on above:Performed By: #### CBCA #### [facility] ([address] [place] [address] VIRRBC COUNT4.82 X10E12/LNormal3.8-5.2PPremier Health Miami Valley Hospital SouthComment on above:Performed By: #### CBCA #### [facility] ([address] [place] [address] VIRWBC (Bld) [#/Vol]6.0 10*3/uLNormal4-11ProTyler County HospitalComment on above:Performed By: #### CBCA #### [facility] ([address] [place] [address] VIRCOMPREHENSIVE METABOLIC PANELon 63-64-1330Ndbuyxt [Mass/Vol]3.4 g/dLNormal3.2-5.3PPremier Health Miami Valley Hospital SouthComment on above: Performed By: #### CMP #### [facility] ([place] [address] [place] [address] VIRALP [Catalytic activity/Vol]118 U/TOsstge14-481KdaMdixahTyler County HospitalComment on above:Performed By: #### CMP #### [facility] ([place] [address] [place] [address] VIRALT [Catalytic activity/Vol]32 U/LHigh<=31PPremier Health Miami Valley Hospital SouthComment on above:Performed By: #### CMP #### [facility] ([place] [address] [place] [address] VIRAnion gap [Moles/Vol]6 mmol/LNormal5-15ProTyler County HospitalComment on above:Performed By: #### CMP #### [facility] ([place] [address] [place] [address] VIRAST [Catalytic activity/Vol]14 U/LNormal<=41ProTyler County HospitalComment on above:Performed By: #### CMP #### [facility] ([place] [address] [place] [address] VIRBilirubin [Mass/Vol]0.4 mg/dLNormal0.3-1.2PPremier Health Miami Valley Hospital SouthComment on above:Performed By: #### CMP #### [facility] ([place] [address] [place] [address] VIRCalcium [Mass/Vol]8.6 mg/dLNormal8.5-10.5PPremier Health Miami Valley Hospital SouthComment on above:Performed By: #### CMP #### [facility] ([place] [address] [place] [address] VIRChloride [Moles/Vol]101 mmol/GZathco84-558MsaJpdhdoTyler County HospitalComment on above:Performed By: #### CMP #### [facility] ([place] [address] [place] [address] VIRCO2 [Moles/Vol]25 mmol/XYnfwoa06-00NnhBvlvha [place] HospitalComment on above:Performed By: #### CMP #### [facility] ([address] [place] [address] VIRCreatinine [Mass/Vol]0.45 mg/dLNormal0.40-1.00ProTyler County HospitalComment on above:Result Comment: METHOD TRACEABLE TO IDMS STANDARDPerformed By: #### CMP #### [facility] ([address] [place] [address] VIREGFR (CKD-EPI) NON-RACE DEPENDENT>^90Normal>=60ProTyler County HospitalComment on above:Result Comment: Reported eGFR is based on the CKD-EPI 2020 equation that does not use a race coefficient.Performed By: #### CMP #### [facility] ([address] [place] [address] VIRGlucose [Mass/Vol]401 mg/dLCritically kksc13-34DhrJiudmiTyler County HospitalComment on above:Performed By: #### CMP #### [facility] ([address] [address] VIRPotassium [Moles/Vol]4.1 mmol/LNormal3.5-5.0St. Anthony's HospitalComment on above:Performed By: #### CMP #### [facility] ([address] [address] VIRProtein [Mass/Vol]6.2 g/dLNormal6.0-8.0ProTyler County HospitalComment on above:Performed By: #### CMP #### [address] [address] VIRSodium [Moles/Vol]132 mmol/AMbb394-222TybZkecorTyler County HospitalComment on above:Performed By: #### CMP #### [facility] ([address] [place] [address] VIRUrea nitrogen [Mass/Vol]14 mg/dLNormal5-23ProTyler County HospitalComment on above:Performed By: #### CMP #### [facility] ([address] [place] [address] VIRLACTATE W/ REFLEXon [id number] W/REFLEX1.3 mmol/L Normal0.4-2.0ProTyler County HospitalComment on above:Order Comment: Result did not trigger repeat Lactate, re-order if needed.Performed By: #### LACTS #### [facility] ([address] [place] [address] VIRMAGNESIUMon [id number] [Mass/Vol]1.8 mg/dLNormal 1.8-2.6ProTyler County HospitalComment on above:Performed By: #### MG #### [facility] ([address] [place] [address] VIRPH, VENOUSon [id number] VENOUS7.528Ubtd5.320-7.420 [facility] Anthony's HospitalComment on above:Performed By: #### PHV #### [address] [place] [address] VIRPOCT NURSING URINE MACROSCOPIC UAon [id number] RICKY NegativeNormalNegativeProTyler County HospitalComment on above:Performed By: #### NUM #### [address] [place] [address] VIRBLOOD/HGB NURNegativeNormalNegativeProTyler County HospitalComment on above:Performed By: #### NUM #### [address] [place] [address] VIRGLUCOSE RICKY>=1000 mg/dLAbnormalNegativeSt. Anthony's HospitalComment on above:Performed By: #### NUM #### [facility] ([address] [address] VIRKETONES NURNegativeNoangel medical centerNegativeSt. Anthony's Hospital Comment on above:Performed By: #### NUM #### [facility] ([address] [place] [address] VIRLEUKOCYTE ESTERASE NURNegativeNormalNegativeSt. Anthony's HospitalComment on above:Performed By: #### NUM #### [address] [address] VIRNITRITE NURNegativeNormalNegativeSt. Anthony's Hospital Comment on above:Performed By: #### NUM #### [address] [address] VIRPH NUR7.0Yxwicz8.0, 6.0, 6.5, 7.0, 7.5, 8.0, 8.5, 5.5 [facility] Anthony's HospitalComment on above:Performed By: #### NUM #### [facility] ([address] [address] VIRPROTEIN NURNegativeNormalNegativeSt. Anthony's Hospital Comment on above:Performed By: #### NUM #### [facility] ([address] [place] [address] VIRSPECIFIC GRAVITY NUR1.944Foboyz8.010, 1.015, 1.020, 1.025 St. Anthony's HospitalComment on above:Performed By: #### NUM #### [address] [address] VIRUROBILINOGEN NUR0.2 E.U./dLMercy Health Willard Hospital Comment on above:Performed By: #### NUM #### [facility] ([facility]) [address] [address] VIRDBT Breast - bilateral diagnosticon [id number] evidence of malignancy either breast. There is [...] to the patient regarding the results. [employer] recommends annual mammograms for women 40 years and older. Performing Facility: [place] [address] Bethany Gabriel MD - 12/25/2024 EXAMINATION: DIAGNOSTIC [...] to the patient regarding the results. [employer] recommends annual mammograms for women 40 years and older. Performing Facility: [place] [address] [facility] HospitalRadiology Study observation (narrative)[facility] HIPOLITO DIGITAL DIAGNOSTIC BILATERALon [id number] HIPOLITO DIGITAL DIAGNOSTIC BILATERALEXAMINATION: DIAGNOSTIC DIGITAL BILATERAL [...] to the patient regarding the results. [employer] recommends annual mammograms for women 40 years and older. Performing Facility: [place] [address] Interpreted by: Bethany Melchor MD Signed by: Bethany Melchor MD 12/25/24 Final resultNormOur Lady of Mercy [facility] - [facility] Panel Informationon [id number] evidence of malignancy either breast. There is [...] to the patient regarding the results. [employer] recommends annual mammograms for women 40 years and older. [facility] RIS CONSOLIDATEDEXAMINATION: DIAGNOSTIC DIGITAL BILATERAL BREASTS [...] to the patient regarding the results. [employer] recommends annual mammograms for women 40 years and older. [facility] In-Store Media CompanyCJW Medical CenterRadiology Study observation (narrative)[facility] MashupsNo Panel InformationOrdered By: Bethany Jill on [id number] [facility] Medical CenterOfficial Limited Virtual Work Phone: us BREAST LIMITED LEFTon [id number] BREAST LIMITED LEFTEXAMINATION: DIAGNOSTIC DIGITAL BILATERAL BREASTS [...] to the patient regarding the results. [employer] recommends annual mammograms for women 40 years and older. Interpreted by: Bethany Melchor MD Signed by: Bethany Melchor MD 12/25/24 Final resultNormKam [place] [facility] Medical CenterUS BREAST LIMITED RIGHTon [id number] BREAST LIMITED RIGHTEXAMINATION: DIAGNOSTIC DIGITAL BILATERAL BREASTS [...] to the patient regarding the results. [employer] recommends annual mammograms for women 40 years and older. Interpreted by: Bethany Melchor MD Signed by: Bethany Melchor MD 12/25/24 Final resultNoMagruder Hospital auto differentialon 12-21-2024 Basophils (Bld) [#/Vol]0.05 10*3/uLBon Secours Mercy HealthBasophils/100 WBC (Bld)1 %0 - 2 %[facility] HealthEosinophils (Bld) [#/Vol]0.05 10*3/uLBon Secours Mercy HealthEosinophils/100 WBC (Bld)1 %1 - 4 %[facility] Erythrocyte distribution width (RBC) [Ratio]11.6 %Low11.8 - 14.4 %[facility] HealthHematocrit (Bld) [Volume fraction]41 %36.3 - 47.1 %[facility] HealthHemoglobin (Bld) [Mass/Vol]13.6 g/dL11.9 - 15.1 g/dLBon Secours MercCJW Medical CenterImmature granulocytes (Bld) [#/Vol]0 10*3/uLBon Secours Mercy Health Immature granulocytes/100 WBC (Bld)0 %0[facility] HealthInterpretation and review of laboratory resultsAbnormalBon Secours Mercy HealthLymphocytes/100 WBC (Bld)56 %High24 - 43 %[facility] HealthLymphocytes/100 WBC (Bld)2.92 %[facility] Hospitaly [facility] HospitalH (RBC) [Entitic mass]29.9 pg25.2 - 33.5 pgBon Secours Licking Memorial HospitalHC (RBC) [Mass/Vol]33.2 g/dL28.4 - 34.8 g/dLBon Secours [facility] Hospitaly [facility] Memorial HospitalV (RBC) [Entitic vol]90.1 fL82.6 - 102.9 fLBon Secours Mercy HealthMonocytes/100 WBC (Bld)2 %Low3 - 12 %[facility] HealthMonocytes/100 WBC (Bld)0.1 %[facility] HealthMorphology Jerson (Bld) [Interp]NormalBon Secours Mercy HealthNeutrophils/100 WBC (Bld)40 %36 - 65 %[facility] HealthNucleated RBC/100 WBC (Bld) [Ratio]0 %0.0 per 100 WBCBon Secours Mercy HealthPlatelet mean volume (Bld) [Entitic vol]9.6 fL8.1 - 13.5 fLBon [facility] Hospital & Brentwood HospitalPlatelets (Bld) [#/Vol]262 10*3/uLBon [facility] & Brentwood HospitalRBC (Bld) [#/Vol]4.55 10*6/uL3.95 - 5.11 m/uLSentara Careplex HospitalSegmented neutrophils/100 WBC (Bld)2.08 %Bon [facility] Brent[facility] HospitalWBC other (Bld) [#/Vol] 5.2Bon [facility] Memorial HospitalCBC with Diffon 12-21-2024 Abs. Basophil0.05 k/uLNormal0.0-0.2Mercy [facility] Ridge HospitalComment on above: Performed By: #### VBG #### [address] [place] [address] Vice President Of Customer Service: Marie Frazier.Imm.Granulocyte0.00 k/uLNormal0.00-0.30MerMercy Health St. Charles Hospital HospitalComment on above:Performed By: #### VBG #### [address] [place] [address] Vice President Of Customer Service: Marie Frazier.Neutrophil (Seg)2.08 k/uLNormal1.50-8.10[facility] HospitalComment on above:Performed By: #### VBG #### [address] [place] [address] Vice President Of Customer Service: Loreta Zelaya MDBasophils/100 WBC (Bld)1 %Normal0-2MercWright-Patterson Medical Center HospitalComment on above:Performed By: #### VBG #### [address] [place] [id number] Vice President Of Customer Service: Loreta Zelaya MDEosinophils (Bld) [#/Vol]0.05 10*3/uLNormal 0.00-0.44MerMercy Health St. Charles Hospital HospitalComment on above:Performed By: #### VBG #### [address] [place] [address] Vice President Of Customer Service: Loreta Zelaya MDEosinophils/100 WBC (Bld)1 %Normal1-4[facility] HospitalComment on above:Performed By: #### VBG #### [address] [place], [place] [address] Vice President Of Customer Service: Loreta Zelaya MDImmature granulocytes/100 WBC (Bld)0 %Gvdmgg6Bcfze [facility] HospitalComment on above:Performed By: #### VBG #### [address] [place], [facility]83 Vice President Of Customer Service: Loreta Zelaya MDLymphocytes (Bld) [#/Vol]2.92 10*3/uLNormal 1.10-3.70[facility] HospitalComment on above:Performed By: #### VBG #### [address] [place], [facility]83 Vice President Of Customer Service: Luciana Fraziermphocytes/100 WBC (Bld)56 %Xvca06-91Vzmvo [facility] HospitalComment on above:Performed By: #### VBG #### [address] [place], [place] [address] Vice President Of Customer Service: MIGUELINA Frazieronocytes (Bld) [#/Vol]0.10 10*3/uLNormal0.10-1.20 [facility] HospitalComment on above:Performed By: #### VBG #### [address] [place], [place] [address]883 Vice President Of Customer Service: MIGUELINA Frazieronocytes/100 WBC (Bld)2 %Low3-12[facility] Centercy [facility] Ridge HospitalComment on above:Performed By: #### VBG #### [address] [place], [place] [id number] Vice President Of Customer Service: MIGUELINA Frazierorphology Jerson (Bld) [Interp]NormalNormalLakehealth [facility]point Medical Center HospitalComment on above:Performed By: #### VBG #### [address] [place], [place] [address] Vice President Of Customer Service: Loreta Zelaya MDNeutrophil (Seg)40 %Izboes01-13Whlsj [facility] HospitalComment on above:Performed By: #### VBG #### [address] [place] [address] Vice President Of Customer Service: Loreta Zelaya MDErythrocyte distribution width (RBC) [Ratio]11.6 % Low11.8-14.4[facility] HospitalComment on above:Performed By: #### VBG #### [address] [place], [place] [address] Vice President Of Customer Service: Loreta Zelaya MDHematocrit (Bld) [Volume fraction]41.0 %Normal 36.3-47.1[facility] HospitalComment on above:Performed By: #### VBG #### [address] [place], [place] [address]683 Vice President Of Customer Service: Loreta Zelaya MDHemoglobin (Bld) [Mass/Vol]13.6 g/dLNormal 11.9-15.1MSycamore Medical Center HospitalComment on above:Performed By: #### VBG #### [address] [place], [place] [address] Vice President Of Customer Service: MIGUELINA FrazierCH (RBC) [Entitic mass]29.9 suVucsan06.2-33.5 [facility] HospitalComment on above:Performed By: #### VBG #### [address] [place], [place] [address] Vice President Of Customer Service: Loreta Sturtz, MDMCHC (RBC) [Mass/Vol]33.2 g/bJMgbewd26.4-34.8[facility] Medical CenterComment on above:Performed By: #### VBG #### [address] [place] [address] Vice President Of Customer Service: MIGUELINA FrazierCV (RBC) [Entitic vol]90.1 yUJlsvhh81.6-102.9 [facility] HospitalComment on above:Performed By: #### VBG #### [address] [place] [address] Vice President Of Customer Service: TYREL Frazier Automated0.0 per 100 WBCNormal0.0[facility] HospitalComment on above:Performed By: #### VBG #### [address] [place], [place] [address] Vice President Of Customer Service: Jamel Fraziertelet mean volume (Bld) [Entitic vol]9.6 fL Normal8.1-13.5[facility] Medical CenterComment on above:Performed By: #### VBG #### [address] [place] [address] Vice President Of Customer Service: Jamel Fraziertezach (Bld) [#/Vol]262 10*3/eDWmpkmu569-007 [facility] HospitalComment on above:Performed By: #### VBG #### [address] [place] [address] Vice President Of Customer Service: KEYLA FrazierBC (Bld) [#/Vol]4.55 10*6/uLNormal3.95-5.11[facility] HospitalComment on above:Performed By: #### VBG #### [address] [place] [address] Vice President Of Customer Service: TSERING Frazier (Bld) [#/Vol]5.2 10*3/uLNormal3.5-11.3[facility] HospitalComment on above:Performed By: #### VBG #### [address] [place], [place] [address] Vice President Of Customer Service: RUTH Frazieromp Metabolic Pr/rfx MGon 81-71-6235Sukrqdh [Mass/Vol]3.6 g/dLNormal3.5-5.2[facility] HospitalComment on above:Performed By: #### VBG #### [address] [place], [place] [address] Vice President Of Customer Service: Loreta Zelaya MDAlbumin/Glob Ratio1.6Ngtwwq0.0-2.5[facility] HospitalComment on above:Performed By: #### VBG #### [address] [place] [address] Vice President Of Customer Service: Bill Frazierkaline Uhzs047 U/VBxceoz01-120Qfmjx [facility] HospitalComment on above:Performed By: #### VBG #### [address] [place] [address] Vice President Of Customer Service: Loreta Zelaya MDALT [Catalytic activity/Vol]19 U/WDzaeym16-79Cezux [facility] HospitalComment on above:Performed By: #### VBG #### [address] [place] [address] Vice President Of Customer Service: Loreta Zelaya MDAnion gap [Moles/Vol]10 mmol/LNormal9-16MerMercy Health St. [facility] HospitalComment on above:Performed By: #### VBG #### [address] [place], [place] [address] Vice President Of Customer Service: Loreta Zelaya MDAST [Catalytic activity/Vol]13 U/YCgqgfc19-75Qnqik [facility] HospitalComment on above:Performed By: #### VBG #### [facility] [address] [place] [address] [place] [address] Vice President Of Customer Service: Loreta Zelaya MDBilirubin [Mass/Vol]0.2 mg/dLNormal0.00-1.20[facility] Medical CenterComment on above:Performed By: #### VBG #### [address] [place] [address] Vice President Of Customer Service: Loreta Zelaya MDBUN/CRE Ehbsz04Iyxz1-94HzghvKettering Health – Soin Medical Center Comment on above:Performed By: #### VBG #### [address] [place] [address] Vice President Of Customer Service: RUTH Frazieralcium [Mass/Vol]8.4 mg/dLLow8.6-10.4[facility] HospitalComment on above:Performed By: #### VBG #### [address] [place] [address] Vice President Of Customer Service: RUTH Frazierhloride [Moles/Vol]107 mmol/WTtvvdv58-160Mkxof [facility] HospitalComment on above:Performed By: #### VBG #### [address] [place] [address] Vice President Of Customer Service: Loreta Zelaya MDCO2 [Moles/Vol]19 mmol/WIhv71-87Rqetx [facility] HospitalComment on above:Performed By: #### VBG #### [address] [place] [address] Vice President Of Customer Service: RUTH Frazierreatinine [Mass/Vol]0.4 mg/dLLow0.50-0.90[facility] Medical CenterComment on above:Performed By: #### VBG #### [address] [place], [place] [phone] Vice President Of Customer Service: Loreta Zelaya MDGFR/1.73 sq M.predicted among non-blacks MDRD (S/P/Bld) [Vol rate/Area]mL/min/{1.73_m2}Normal>60[facility] HospitalComment on above:Result Comment: These results are [...] renal tubular secretion.Performed By: #### VBG #### [address] [place] [address] Vice President Of Customer Service: Loreta Zelaya MDGlucose [Mass/Vol]146 mg/qSBrqn85-56Yimkn Day Kimball HospitalComment on above:Performed By: #### VBG #### [address] [place], [facility]83 Vice President Of Customer Service: SUZY Frazierotassium [Moles/Vol]3.8 mmol/LNormal3.7-5.3[facility] HospitalComment on above:Performed By: #### VBG #### [address] [place], [facility]83 Vice President Of Customer Service: Loreta Zelaya MDProtein [Mass/Vol]6.0 g/dLLow6.6-8.7[facility] Medical CenterComment on above:Performed By: #### VBG #### [address] [place], [place] [address] Vice President Of Customer Service: Loreta Zelaya MDSodium [Moles/Vol]136 mmol/RWowowt455-878Vblqt [facility] HospitalComment on above:Performed By: #### VBG #### [address] [place], [place] [address] Vice President Of Customer Service: Loreta Zelaya MDUrea nitrogen [Mass/Vol]14 mg/dLNormal6-20[facility] HospitalComment on above:Performed By: #### VBG #### [facility] [address] [place] [address] Vice President Of Customer Service: Loreta Zelaya [facility] OKLAHOMA CITYomprehensive Metabolic Panel w/ Reflex to MGon [id number] [Mass/Vol]3.6 g/dL3.5 - 5.2 g/dLBon [facility] Albumin/Globulin [Mass ratio]1.5 {ratio}1.0 - 2.5Bon [facility] HospitalALP [Catalytic activity/Vol]103 U/L35 - 104 U/LBon [facility] Brent[facility] HospitalALT [Catalytic activity/Vol]19 U/L10 - 35 U/LBon [facility] & Brentwood HospitalAnion gap [Moles/Vol]10 mmol/L9 - 16 mmol/LBon [facility] Brent[facility] HospitalAST [Catalytic activity/Vol]13 U/L10 - 35 U/LBon [facility] & Brentwood HospitalBilirubin [Mass/Vol]0.2 mg/dL0.00 - 1.20 mg/dLBon [facility] & Brentwood HospitalCalcium [Mass/Vol]8.4 mg/dLLow8.6 - 10.4 mg/dLBon [facility] & Brentwood HospitalChloride [Moles/Vol]107 mmol/L98 - 107 mmol/LBon [facility] & Brentwood HospitalCO2 [Moles/Vol]19 mmol/LLow20 - 31 mmol/LBon [facility] & Brentwood HospitalCreatinine [Mass/Vol]0.4 mg/dLLow0.50 - 0.90 mg/dLBon [facility] Hospital & Brentwood HospitalEst, Glom Filt Rate- PINFBon [facility]urban [facility] Hospital & Brentwood HospitalComascension river district hospital on above: These results are not [...] that affects renal tubular secretion. Glucose [Mass/Vol]146 mg/iXAcmg05 - 99 mg/dLBon [facility] Interpretation and review of laboratory resultsAbnormalBon Prediculous Potassium [Moles/Vol]3.8 mmol/L3.7 - 5.3 mmol/LBon SecGlobal RallyCross Championship HealthProtein [Mass/Vol]6 g/dLLow6.6 - 8.7 g/dLBon SecOfficial Limited VirtualSodium [Moles/Vol]136 mmol/L136 - 145 mmol/LBon SecOfficial Limited VirtualUrea nitrogen [Mass/Vol]14 mg/dL6 - 20 mg/dLBon SecOfficial Limited VirtualUrea nitrogen/Creatinine [Mass ratio]35 mg/mg High9 - 20Bon One DiaryEKG 12 Lead (Chest Pain)Ordered By: Mode Coffman on 81-42-0681Tfdtfc Ppns22YRMBfpEverypoint Work Phone: P Gdxr82zluizmkQoyAlmondNet Work Phone: P-R Fqwdsnjm487 [employer] Work Phone: [phone]-T Drpawhia183 [employer] Work Phone: QRS Qgqqgaob32 [employer] Work Phone: QTc Calculation (Bazett)474 msCOCC Work Phone: R Ogrb657fztekwjQqaAlmondNet Work Phone: T Bdra59jvunyjiGmyAlmondNet Work Phone: Ventricular Rrqx77UEHUbxEverypoint Work Phone: Bon [facility] Work Phone: [phone] 12 Lead (Chest Pain)on 65-66-9466Nxdprb sinus rhythm Rightward axis Borderline ECG ECG not diagnostic for Acute Coronary Syndrome; consider clinical findings When compared with ECG of 16-Oct-2024 20:05, QRS axis Shifted right Confirmed by Mode Coffman ([id number]) on 12/21/2024 8:47:09 AMSt. Joseph's HospitalMode ha MD - 12/21/2024 Normal sinus rhythm Rightward axis Borderline ECG ECG not diagnostic for Acute Coronary Syndrome; consider clinical findings When compared with ECG of 16-Oct-2024 20:05, QRS axis Shifted right Confirmed by Mode Coffman ([id number]) on 12/21/2024 8:47:09 AM Bon [facility] Brentwood HospitalEKG Rhythm Stripon [id number] STOKES CLEVEL[facility] LABBon [facility] & Brentwood HospitalGlucose, Whole Bloodon 91-32-2689Axzhuzd [Mass/Vol]264 mg/qEKeum39 - 100 mg/dLBon [facility] & Brentwood HospitalInterpretation and review of laboratory resultsAbnormPage Memorial HospitalGlucose [Mass/Vol]264 mg/uHTexj00-049JebjpKettering Health – Soin Medical CenterGlucose [Mass/Vol]166 mg/bTQprk99 - 100 mg/dLBon [facility] & Brentwood HospitalInterpretation and review of laboratory resultsAbnoVeterans Affairs Black Hills Health Care SystemGlucose [Mass/Vol]166 mg/nIBona57-893TwljxKettering Health – Soin Medical CenterGlucose [Mass/Vol]195 mg/yWWamv73 - 100 mg/dLBon [facility] & Brent[facility] HospitalInterpretation and review of laboratory resultsAbSpearfish Regional HospitalGlucose [Mass/Vol]195 mg/zYVeex16-741UscaqKettering Health – Soin Medical CenterUrinalysis w/ Microon 93-54-1669Tjubhrkkk, SemiQt,UrNegativeNoWayne HealthCare Main Campus Comment on above:Performed By: #### UAMIC #### [facility] [address] [place] [address] [place] [address] Vice President Of Customer Service: Lillian Frazier, UrineNegativeOhioHealth Mansfield Hospital Comment on above:Performed By: #### UAMIC #### [facility] [address] [place] [address] Vice President Of Customer Service: Santi Frazier (ClearNormalCHolzer Hospital Comment on above:Performed By: #### UAMIC #### [facility] [address] [place] [address] [place], [place] [phone] Vice President Of Customer Service: RUTH Frazierolor (U)YellowNormalYMorrow County Hospital Comment on above:Performed By: #### UAMIC #### [address] [place], [place] [address] Vice President Of Customer Service: Loreta Zelaya MDEpithelial cells LM Ql (Urine sed)NoneNormal0-25 [facility] Medical CenterComment on above:Performed By: #### UAMIC #### [address] [place], [place] [phone] Vice President Of Customer Service: Loreta Zelaya MDGlucose Ql (U)3+ mg/dLAbnormalNEGKettering Health – Soin Medical CenterComment on above:Performed By: #### UAMIC #### [address] [place], [place] [phone] Vice President Of Customer Service: Loreta Zelaya MDKetones Ql (U)4+ mg/dLAbnormalNEGKettering Health – Soin Medical CenterComment on above:Performed By: #### UAMIC #### [address] [place], [place] [address]83 Vice President Of Customer Service: Loreta Zelaya MDLeukocyte esterase Test strip Ql (U)NegativeNormal NEGKettering Health – Soin Medical CenterComment on above:Performed By: #### UAMIC #### [address] [place], [facility]83 Vice President Of Customer Service: Loreta Zelaya MDNitrite,UrNegativeNormalNEGKettering Health – Soin Medical Center Comment on above:Performed By: #### UAMIC #### [address] [place], [place] 107[address]83 Vice President Of Customer Service: Loreta Zelaya [facility],Ur6.9Wslykk3.0-9.0MerWaterbury HospitalComment on above:Performed By: #### UAMIC #### [facility] [address] [place] [address] [place] [address] Vice President Of Customer Service: SUZY Frazierrotein Ql (U)NegativeNormalNEGKettering Health – Soin Medical CenterComment on above:Performed By: #### UAMIC #### [facility] [address] [place] [address] [place] [address] Vice President Of Customer Service: Cielo Frazier. Brenham,Ur<1.653Mfj4.010-1.020K[facility] – Soin Medical CenterComment on above:Performed By: #### UAMIC #### [facility] [address] [place] [address] [place] [address] Vice President Of Customer Service: Tawny Frazier RBCsNoneNoangel medical center0-2MWestern Reserve Hospital Comment on above:Performed By: #### UAMIC #### [facility] [address] [place] [address] [place] [place], [place] [phone] Vice President Of Customer Service: Tawny Frazier WBC'sNoneNormal0-5[facility] Comment on above:Performed By: #### UAMIC #### [facility] [address] [place] [address] [place] [address] Vice President Of Customer Service: Loreta Zelaya MDUrobilinogen,UrNormalNormal0.0-1.0K[facility] Soin Medical CenterComment on above:Performed By: #### UAMIC #### [facility] [address] [place] [address] [place] [place], [place] [phone] Vice President Of Customer Service: Loreta Zelaya MDYeastPRESENCE NOTEDAbnormalNONEMeGreenwich HospitalComment on above:Performed By: #### UAMIC #### [facility] [address] [place] [address] [place], [place] [phone] Vice President Of Customer Service: Loreta Zelaya MDUrinalysis with Microscopicon 65-17-9747Lthmzaodv Ql (U)NegativeNEGATIVEBon Secours Children'S Hospital For RehabilitationClarity (U)ClearClearBon Secours Children'S Hospital For RehabilitationColor (U)YellowYellowBon Secours Mercy HealthEpithelial cells LM.HPF (Urine [...] NOTEDAbnormalNoneBon Secours Mercy HealthBon Secours Mercy HealthBMPon 35-82-7005Zuxza gap [Moles/Vol]14 mmol/L9 - 16 mmol/LBon Secours [...] that affects renal tubular secretion. Glucose [Mass/Vol]370 mg/rIWkkk11 - 99 mg/dLBon [facility] Interpretation and review of laboratory resultsAbnormalSentara Careplex Hospital Potassium [Moles/Vol]4 mmol/L3.7 - 5.3 mmol/LBon [facility] & Brentwood HospitalSodium [Moles/Vol]134 mmol/IRix616 - 145 mmol/LBon [facility] & Brentwood HospitalUrea nitrogen [Mass/Vol]16 mg/dL6 - 20 mg/dLBon [facility] & Brentwood HospitalUrea nitrogen/Creatinine [Mass ratio]27 mg/mgHigh9 - 20[facility] Basic Metabolic Profon 03-44-8149Vmuok gap [Moles/Vol]14 mmol/LNormal9-16[facility] Soin Medical CenterComment on above:Performed By: #### BMP #### [facility] [address] [place] [address] [place] [address] Vice President Of Customer Service: Loreta Zelaya MDBUN/CRE Leunt76Ldge1-02YvuywKettering Health – Soin Medical Center Comment on above:Performed By: #### BMP #### [address] [place] [address] Vice President Of Customer Service: RUTH Frazieralcium [Mass/Vol]7.9 mg/dLLow8.6-10.4[facility] Soin Medical CenterComment on above:Performed By: #### BMP #### [facility] [address] [place] [address] [place] [address] Vice President Of Customer Service: RUTH Frazierhloride [Moles/Vol]102 mmol/MBynkrt17-000IvlwjKettering Health – Soin Medical CenterComment on above:Performed By: #### BMP #### [facility] [address] [place] [address] [place] [address] Vice President Of Customer Service: RUTH FrazierO2 [Moles/Vol]18 mmol/QXmk70-83PbdbnKettering Health – Soin Medical CenterComment on above:Performed By: #### BMP #### [address] [place] [address] Vice President Of Customer Service: RUTH Frazierreatinine [Mass/Vol]0.6 mg/dLNormal0.50-0.90K[facility] Soin Medical CenterComment on above:Performed By: #### BMP #### [address] [place], [facility]83 Vice President Of Customer Service: Loreta Zelaya MDGFR/1.73 sq M.predicted among non-blacks MDRD (S/P/Bld) [Vol rate/Area]mL/min/{1.73_m2}Normal>60K[facility] Soin Medical CenterComment on above:Result Comment: These results [...] renal tubular secretion.Performed By: #### BMP #### [address] [place] [address] Vice President Of Customer Service: Loreta Zelaya MDGlucose [Mass/Vol]370 mg/oCHnhu97-48Phozk Day Kimball HospitalComment on above:Performed By: #### BMP #### [address] [place] [address] Vice President Of Customer Service: Loreta Zelaya MDPotassium [Moles/Vol]4.0 mmol/LNormal3.7-5.3MWestern Reserve HospitalComment on above:Performed By: #### BMP #### [address] [place] [address] Vice President Of Customer Service: Loreta Zelaya MDSodium [Moles/Vol]134 mmol/JBin296-601CkrvjKettering Health – Soin Medical CenterComment on above:Performed By: #### BMP #### [facility] [address] [place] [address] [place], [place] [phone] Vice President Of Customer Service: Loreta Zelaya MDUrea nitrogen [Mass/Vol]16 mg/dLNormal6-20[facility] Soin Medical CenterComment on above:Performed By: #### BMP #### [address] [place] [phone] Vice President Of Customer Service: Loreta Zelaya MDBeta Hydroxybutyrateon 53-96-2951Lppy Hydroxybutyrate3.86 mmol/LHigh0.02-0.27K[facility] Soin Medical CenterComment on above: Performed By: #### INSU #### [facility] [address] [place] [address] [phone] Vice President Of Customer Service: Gee Royal MD [address] [place] [phone] Vice President Of Customer Service: Loreta Zelaya MD #### CPEP #### [facility] [address] [place], [place] [phone] Vice President Of Customer Service: Gee Royal MDBeta-Hydroxybutyrateon 36-43-4756Omdh hydroxybutyrate [Mass/Vol]3.86 mmol/LHigh0.02 - 0.27 mmol/LBon [facility] Brentwood HospitalInterpretation and review of laboratory resultsAbnormPage Memorial HospitalBlood Gas, Venouson 98-44-4515Hqgxyurs patency Wrist artery --pre arterial punctureNOT LewisG[facility] Hospital MontgomeryHCO3 (Bld) [Moles/Vol]17.9 mmol/LLow24.0 - 30.0 mmol/LBon [facility] Interpretation and review of laboratory resultsAbInova Mount Vernon Hospital Negative Base Excess, Ven6.3 mmol/LHigh0.0 - 2.0 mmol/LBon [facility] Oxygen gas flow Oxygen delivery systemRiverside Health SystemOxygen saturation in Blood83 %60.0 - 85.0 %[facility] Mercy HealthOxygen/Inspired gas Respiratory system --on hoajjvqsgg39Hzh Secours Mercy HealthpCO2, Ven32.4LowBon Secours Mercy HealthpCO2, Erik, Temp Adj32.4LowBon Secours Mercy HealthpH, Erik 7.3617.32 - 7.42Bon [facility] Mercy HealthpH, Erik, Temp Adj7.3617.320 - 7.420[facility] HealthPO2, Ven48.2Bon [facility] Mer[facility] HealthpO2, Erik, Temp Adj48.2 [facility] Hospitaly HealthBon Secours [facility] Hospitaly HealthCBC with Auto Differentialon 41-27-5970Zjdlhvewn (Bld) [#/Vol]0.04 10*3/uLBon Secours [facility] Hospitaly Health Basophils/100 WBC (Bld)1 %0 - 2 %[facility] Hospitaly HealthEosinophils (Bld) [#/Vol]0.15 10*3/uLBon Secours [facility] Hospitaly HealthEosinophils/100 WBC (Bld)3 %1 - 4 % [facility] Hospitaly HealthErythrocyte distribution width (RBC) [Ratio]11.6 %Low 11.8 - 14.4 %[facility] HealthHematocrit (Bld) [Volume fraction]46.4 % 36.3 - 47.1 %[facility] Hospitaly HealthHemoglobin (Bld) [Mass/Vol]15.8 g/dLHigh 11.9 - 15.1 g/dLBon SecInland Northwest Behavioral Healthy HealthImmature granulocytes (Bld) [#/Vol][facility] Hospitaly HealthImmature granulocytes/100 WBC (Bld)0 %0[facility] Hospitaly HealthInterpretation and review of laboratory resultsAbnormalBon Secours [facility] Hospitaly HealthLymphocytes/100 WBC (Bld)43 %24 - 43 %Bon SecIn[facility] Healthy Health Lymphocytes/100 WBC (Bld)2.46 %[facility] Hospitaly [facility] Memorial HospitalH (RBC) [Entitic mass] 30.5 pg25.2 - 33.5 pgBon Secours Children'S Hospital For RehabilitationMCHC (RBC) [Mass/Vol]34.1 g/dL28.4 - 34.8 g/dLBon SecSelect Medical Specialty Hospital - Cleveland-FairhillV (RBC) [Entitic vol]89.6 fL82.6 - 102.9 fL [facility] HealthMonocytes/100 WBC (Bld)6 %3 - 12 %Bon SecW[facility] HealthMonocytes/100 WBC (Bld)0.35 %Bon [facility] HospitalNeutrophils/100 WBC (Bld)47 %36 - 65 %Bon [facility] HospitalNucleated RBC/100 WBC (Bld) [Ratio]0 % 0.0 per 100 WBCBon [facility] HealthPlatelet mean volume (Bld) [Entitic vol] 9.8 fL8.1 - 13.5 fLBon SecWinn Parish Medical Center HealthPlatelets (Bld) [#/Vol]288 10*3/uLBon SecWinn Parish Medical Center HealthRBC (Bld) [#/Vol]5.18 10*6/uLHigh3.95 - 5.11 m/uLBon [facility] & Brentwood HospitalSegmented neutrophils/100 WBC (Bld)2.7 %Sentara Careplex HospitalWBC other (Bld) [#/Vol]5.7Bon SecSelect Medical [facility] Rehabilitation Hospital, BeachwoodBon [facility] CBC with Diffon 59-54-2290Dae. Basophil0.04 k/uLNormal0.00-0.20[facility] So[facility] Medical CenterComment on above:Performed By: #### INSU #### [place] [address] Vice President Of Customer Service: Gee Royal MD [address] [place] [phone] Vice President Of Customer Service: Loreta Zelaya MD #### CPEP #### [facility] [address] [place], [place] [phone] Vice President Of Customer Service: Gee Royal MDAbs.Imm.Granulocyte<0.19Srothl9.00-0.30[facility] Soin Medical CenterComment on above:Performed By: #### INSU #### [place] [address] Vice President Of Customer Service: Gee Royal MD [address] [place] [phone] Vice President Of Customer Service: Loreta Zelaya MD #### CPEP #### [address] [address] Vice President Of Customer Service: Marie Pineda.Neutrophil (Seg)2.70 k/uLNormal1.50-8.10 [facility] So[facility] Medical CenterComment on above:Performed By: #### INSU #### [address] [address] Vice President Of Customer Service: Gee Royal MD [address] [place] [address] Vice President Of Customer Service: Loreta Zelaya MD #### CPEP #### [address] [address] Vice President Of Customer Service: Gee Royal MDBasophils/100 WBC (Bld)1 %Normal0-2MWestern Reserve HospitalComascension river district hospital on above:Performed By: #### INSU #### [address] [address] Vice President Of Customer Service: Gee Royal MD [address] [place] [address] Vice President Of Customer Service: Loreta Zelaya MD #### CPEP #### [address] [address] Vice President Of Customer Service: Gee Royal MDEosinophils (Bld) [#/Vol]0.15 10*3/uLNormal 0.00-0.44[facility] So[facility] Medical CenterComascension river district hospital on above:Performed By: #### INSU #### [address] [address] Vice President Of Customer Service: Gee Royal MD [address] [place] [phone] Vice President Of Customer Service: Loreta Zelaya MD #### CPEP #### [address] [address] Vice President Of Customer Service: Gee Royal MDEosinophils/100 WBC (Bld)3 %Normal1-4[facility] So[facility] Medical CenterComment on above:Performed By: #### INSU #### [address] [address] Vice President Of Customer Service: Gee Royal MD [address] [place] [phone] Vice President Of Customer Service: Loreta Zelaya MD #### CPEP #### [address] [address] Vice President Of Customer Service: Gee Royal MDErythrocyte distribution width (RBC) [Ratio]11.6 %Low11.8-14.4[facility] So[facility] Medical CenterComment on above:Performed By: #### INSU #### [address] [address] Vice President Of Customer Service: Gee Royal MD [address] [place] [phone] Vice President Of Customer Service: Loreta Zelaya MD #### CPEP #### [address] [address] Vice President Of Customer Service: Gee Royal MDHematocrit (Bld) [Volume fraction]46.4 %Normal 36.3-47.1MWestern Reserve HospitalComment on above:Performed By: #### INSU #### [address] [address] Vice President Of Customer Service: Gee Royal MD [address] [place] [phone] Vice President Of Customer Service: Loreta Zelaya MD #### CPEP #### [address] [address] Vice President Of Customer Service: Gee Royal MDHemoglobin (Bld) [Mass/Vol]15.8 g/dLHigh 11.9-15.1MWestern Reserve HospitalComment on above:Performed By: #### INSU #### [address] [address] Vice President Of Customer Service: [place] [address] Vice President Of Customer Service: Loreta Zelaya MD #### CPEP #### [address] [address] Vice President Of Customer Service: Gee Royal MDImmature granulocytes/100 WBC (Bld)0 %Normal0 [facility] So[facility] Medical CenterComment on above:Performed By: #### INSU #### [address] [address] Vice President Of Customer Service: [place] [address] Vice President Of Customer Service: Loreta Zelaya MD #### CPEP #### [address] [address] Vice President Of Customer Service: Gee Royal MDLymphocytes (Bld) [#/Vol]2.46 10*3/uLNormal 1.10-3.70[facility] So[facility] Medical CenterComment on above:Performed By: #### INSU #### [address] [address] Vice President Of Customer Service: [place] [address] Vice President Of Customer Service: Loreta Zelaya MD #### CPEP #### [address] [address] Vice President Of Customer Service: Gee Royal MDLymphocytes/100 WBC (Bld)43 %Bduifo96-30XfkopKettering Health – Soin Medical CenterComment on above:Performed By: #### INSU #### [address] [address] Vice President Of Customer Service: Gee Royal MD [address] [place], [place] 8[address]83 Vice President Of Customer Service: Loreta Zelaya MD #### CPEP #### [address] [address] Vice President Of Customer Service: MIGUELINA PinedaCH (RBC) [Entitic mass]30.5 wbHxvffe10.2-33.5 [facility] So[facility] Medical CenterComment on above:Performed By: #### INSU #### [address] [address] Vice President Of Customer Service: Gee Royal MD [address] [place] [address] Vice President Of Customer Service: Loreta Zelaya MD #### CPEP #### [address] [address] Vice President Of Customer Service: MIGUELINA PinedaCHC (RBC) [Mass/Vol]34.1 g/eKGwgdba93.4-34.8 [facility] Medical CenterComment on above:Performed By: #### INSU #### [address] [address] Vice President Of Customer Service: Gee Royal MD [address] [place] [phone] Vice President Of Customer Service: Loreta Zelaya MD #### CPEP #### [address] [address] Vice President Of Customer Service: MIGUELINA PinedaCV (RBC) [Entitic vol]89.6 yKDhejvx44.6-102.9 [facility] Medical CenterComment on above:Performed By: #### INSU #### [address] [address] Vice President Of Customer Service: Gee Royal MD [address] [place] [address] Vice President Of Customer Service: Loreta Zelaya MD #### CPEP #### [address] [address] Vice President Of Customer Service: Gee Royal MDMonocytes (Bld) [#/Vol]0.35 10*3/uLNormal 0.10-1.20[facility] Medical CenterComment on above:Performed By: #### INSU #### [address] [address] Vice President Of Customer Service: Gee Royal MD [address] [place] [phone] Vice President Of Customer Service: oLreta Zelaya MD #### CPEP #### [address] [address] Vice President Of Customer Service: Gee Royal MDMonocytes/100 WBC (Bld)6 %Normal3-12[facility] Medical CenterComment on above:Performed By: #### INSU #### [address] [address] Vice President Of Customer Service: Gee Royal MD [address] [place] [address] Vice President Of Customer Service: Loreta Zelaya MD #### CPEP #### [address] [address] Vice President Of Customer Service: Gee Royal MDNeutrophil (Seg)47 %Tvvins31-39ErxjkKettering Health – Soin Medical CenterComment on above:Performed By: #### INSU #### [address] [address] Vice President Of Customer Service: Gee Royal MD [address] [place] [phone] Vice President Of Customer Service: Loreta Zelaya MD #### CPEP #### [address] [address] Vice President Of Customer Service: Gee Royal MDNRBC Automated0.0 per 100 WBCNormal0.0[facility] Medical CenterComment on above:Performed By: #### INSU #### [address] [address] Vice President Of Customer Service: Gee Royal MD [address] [place] [address] Vice President Of Customer Service: Loreta Zelaya MD #### CPEP #### [address] [address] Vice President Of Customer Service: Helena Pineda mean volume (Bld) [Entitic vol]9.8 fL Normal8.1-13.5[facility] Medical CenterComment on above:Performed By: #### INSU #### [address] [address] Vice President Of Customer Service: Gee Royal MD [address] [place] [address] Vice President Of Customer Service: Loreta Zelaya MD #### CPEP #### [address] [address] Vice President Of Customer Service: Luna Pineda (Bld) [#/Vol]288 10*3/pKOyucps593-868 [facility] CenterComment on above:Performed By: #### INSU #### [address] [address] Vice President Of Customer Service: Gee Royal MD [address] [place] [address] Vice President Of Customer Service: Loreta Zelaya MD #### CPEP #### [address] [address] Vice President Of Customer Service: SARA Pineda (Bld) [#/Vol]5.18 10*6/uLHigh3.95-5.11[facility] Medical CenterComascension river district hospital on above:Performed By: #### INSU #### [facility] [address] [place] [address] Vice President Of Customer Service: Gee Royal MD [address] [place] [address] Vice President Of Customer Service: Loreta Zelaya MD #### CPEP #### [address] [address] Vice President Of Customer Service: Gee Royal MDWBC (Bld) [#/Vol]5.7 10*3/uLNormal3.5-11.3Mclinton memorial hospitaly Day Kimball HospitalComment on above:Performed By: #### INSU #### [address] [address] Vice President Of Customer Service: Gee Royal MD [address] [place] [address] Vice President Of Customer Service: Loreta Zelaya MD #### CPEP #### [address] [address] Vice President Of Customer Service: Gee Royal [facility] 72-00-3235Hiipqtd [Mass/Vol]4.2 g/dL3.5 - 5.2 g/dLBon [facility] & Brentwood HospitalAlbumin/Globulin [Mass ratio]1.4 {ratio}1.0 - 2.5Bon [facility] Brent[facility] HospitalALP [Catalytic activity/Vol]148 U/LHigh35 - 104 U/L [facility] HealthALT [Catalytic activity/Vol]27 U/L10 - 35 U/LBon [facility] & Brentwood HospitalAnion gap [Moles/Vol]19 mmol/LHigh9 - 16 mmol/LBon [facility] HealthAST [Catalytic activity/Vol]19 U/L10 - 35 U/LBon [facility] Health Comment on above:Specimen hemolysis has exceeded the interference as defined by Kat. Value may be falsely increased. Suggest recollection if clinically indicated. Bilirubin [Mass/Vol]0.3 mg/dL0.00 - 1.20 mg/dLBon [facility] & Brentwood HospitalCalcium [Mass/Vol]9.2 mg/dL8.6 - 10.4 mg/dLBon [facility] & Brent[facility] HospitalChloride [Moles/Vol] 92 mmol/LLow98 - 107 mmol/LBon [facility] Medical CenterAlephCloud Systems [facility] HospitalAnapa Biotech Newark HospitalCO2 [Moles/Vol]19 mmol/LLow20 - 31 mmol/LBon [facility] Medical CenterAlephCloud Systems [facility] HospitalAnapa [employer] Newark HospitalCreatinine [Mass/Vol]0.6 mg/dL0.50 - 0.90 mg/dLBon [facility] CenterAnapa Biotech Newark HospitalEst, Glom Filt Rate- PINFBon [facility] Comment on above: These results are [...] Glucose [Mass/Vol]516 mg/dLCritically high74 - 99 mg/dLBon [facility] Differential Dynamics Interpretation and review of laboratory resultsAbnormalBon [facility] Potassium [Moles/Vol]4.8 mmol/L3.7 - 5.3 mmol/LBon [facility] Medical CenterAnapa Biotech Newark HospitalComment on above:Specimen hemolysis has exceeded the interference as defined by Kat. Value may be falsely increased. Suggest recollection if clinically indicated. Protein [Mass/Vol]7.2 g/dL6.6 - 8.7 g/dLBon [facility] & Brentwood HospitalSodium [Moles/Vol]130 mmol/QFck583 - 145 mmol/LBon [facility] Medical CenterAlephCloud Systems [facility] HospitalAnapa [employer] Newark HospitalUrea nitrogen [Mass/Vol]19 mg/dL6 - 20 mg/dLBon [facility] & Brentwood HospitalUrea nitrogen/Creatinine [Mass ratio]32 mg/mgHigh9 - 20Bon [facility] CenterGlobal RallyCross Championship Newark HospitalCT HEAD WO CONTRASTon [id number] HEAD WO CONTRASTEXAMINATION: CT OF THE HEAD [...] Signed by: Tavo Almonte MD 12/20/24 Final resultNormalMerWaterbury HospitalCT Head WO contraston [id number] acute intracranial abnormality. [facility] CONSOLIDATEDEXAMINATION: CT OF THE HEAD WITHOUT [...] of the visualized skull or soft tissues. [facility] Tavo Claudio MD - 12/20/2024 EXAMINATION: [...] soft tissues. IMPRESSION: No acute intracranial abnormality. [facility] PrediculousRadiology Study observation (narrative)[facility] PrediculousCT Head WO contrastOrdered By: Tavo Almonte on 03-80-0784Znq [employer] Work Phone: CTA HEAD NECK W CONTRASTon [id number] HEAD NECK W CONTRASTEXAMINATION: CTA OF THE [...] Signed by: Amaury Khan MD 12/20/24 Final resultNormalMerSaint Francis Hospital & Medical Center Head vessels and Neck vessels W contrast Wesley . No evidence of arterial stenosis or occlusion in the head or neck. 2. Diffuse goiter. [facility] RIS CONSOLIDATEDEXAMINATION: CTA OF THE HEAD AND [...] the head or neck. 2. Diffuse goiter. [facility] HospitalRadiology Study observation (narrative)[facility] Careplex HospitalCTA Head vessels and Neck vessels W contrast IVOrdered By: Amaury Khan on 47-36-2291Kkg Glenn Medical CenterNomacorc Work Phone: Comp Metabolic Profon 43-20-4951Fhzktdi [Mass/Vol]4.2 g/dLNormal3.5-5.2MWestern Reserve HospitalComment on above:Performed By: #### INSU #### [address] [address] Vice President Of Customer Service: Gee Royal MD [address] [place], [place] [phone] Vice President Of Customer Service: Loreta Zelaya MD #### CPEP #### [address] [address] Vice President Of Customer Service: Gee Royal MDAlbumin/Glob Ratio1.0Zjmlnv5.0-2.5[facility] CenterComment on above:Performed By: #### INSU #### [address] [address] Vice President Of Customer Service: Gee Royal MD [address] [place] [phone] Vice President Of Customer Service: Loreta Zelaya MD #### CPEP #### [address] [address] Vice President Of Customer Service: Reny Pineda Crwg216 U/DDxvi21-458TiocgKettering Health – Soin Medical CenterComment on above:Performed By: #### INSU #### [address] [address] Vice President Of Customer Service: Gee Royal MD [address] [place] [phone] Vice President Of Customer Service: Loreta Zelaya MD #### CPEP #### [address] [address] Vice President Of Customer Service: SAMANTHA Pineda [Catalytic activity/Vol]27 U/EFnbnzx64-36 [facility] Medical CenterComment on above:Performed By: #### INSU #### [address] [address] Vice President Of Customer Service: Gee Royal MD [address] [place], [place] 9[address]83 Vice President Of Customer Service: Loreta Zelaya MD #### CPEP #### [address] [address] Vice President Of Customer Service: Gee Royal MDAnion gap [Moles/Vol]19 mmol/LHigh9-16[facility] CenterComment on above:Performed By: #### INSU #### [address] [address] Vice President Of Customer Service: Gee Royal MD [address] [place] [address] Vice President Of Customer Service: Loreta Zelaya MD #### CPEP #### [address] [address] Vice President Of Customer Service: Gee Royal MDAST [Catalytic activity/Vol]19 U/DTknwct79-43 [facility] CenterComasc[facility] on above:Result Comment: Specimen hemolysis has exceeded the interference as defined by Kat. Value may be falsely increased. Suggest recollection if clinically indicated.Performed By: #### INSU #### [facility] [address] [place] [address] Vice President Of Customer Service: Gee Royal MD [address] [place] [address] Vice President Of Customer Service: Loreta Zelaya MD #### CPEP #### [address] [address] Vice President Of Customer Service: Gee Royal MDBilirubin [Mass/Vol]0.3 mg/dLNormal0.00-1.20 [facility] CenterComasc[facility] on above:Performed By: #### INSU #### [facility] [address] [place] [address] Vice President Of Customer Service: Gee Royal MD [address] [place] [address] Vice President Of Customer Service: Loreta Zelaya MD #### CPEP #### [address] [address] Vice President Of Customer Service: Gee Royal MDBUN/CRE Yrefy05Sjbe8-81QpstkKettering Health – [facility] Center Comment on above:Performed By: #### INSU #### [address] [address] Vice President Of Customer Service: Gee Royal MD [address] [place], [place] [id number] Vice President Of Customer Service: Loreta Zelaya MD #### CPEP #### [address] [address] Vice President Of Customer Service: RUTH Pinedaalcium [Mass/Vol]9.2 mg/dLNormal8.6-10.4[facility] CenterComment on above:Performed By: #### INSU #### [address] [address] Vice President Of Customer Service: Gee Royal MD [address] [place] [id number] Vice President Of Customer Service: Loreta Zelaya MD #### CPEP #### [address] [address] Vice President Of Customer Service: RUTH Pinedahloride [Moles/Vol]92 mmol/ADxk76-269IdjeiKettering Health – Soin Medical CenterComment on above:Performed By: #### INSU #### [address] [address] Vice President Of Customer Service: Gee Royal MD [address] [place], [place] 8[address]83 Vice President Of Customer Service: Loreta Zelaya MD #### CPEP #### [address] [address] Vice President Of Customer Service: RUTH PinedaO2 [Moles/Vol]19 mmol/BLyk16-42FbpixKettering Health – Soin Medical CenterComment on above:Performed By: #### INSU #### [address] [address] Vice President Of Customer Service: Gee Royal MD [address] [place] [address] Vice President Of Customer Service: Loreta Zelaya MD #### CPEP #### [address] [address] Vice President Of Customer Service: RUTH Pinedareatinine [Mass/Vol]0.6 mg/dLNormal0.50-0.90 [facility] CenterComment on above:Performed By: #### INSU #### [address] [address] Vice President Of Customer Service: Gee Royal MD [address] [place] [phone] Vice President Of Customer Service: Loreta Zelaya MD #### CPEP #### [address] [address] Vice President Of Customer Service: Gee Royal MDGFR/1.73 sq M.predicted among non-blacks MDRD (S/P/Bld) [Vol rate/Area]mL/min/{1.73_m2}Normal>60[facility] CenterComment on above:Result Comment: These results [...] renal tubular secretion.Performed By: #### INSU #### [address] [address] Vice President Of Customer Service: Gee Royal MD [address] [place] [address] Vice President Of Customer Service: Loreta Zelaya MD #### CPEP #### [address] [address] Vice President Of Customer Service: Gee Royal MDGlucose [Mass/Vol]516 mg/dLCritically dkcw98-64 [facility] CenterComment on above:Performed By: #### INSU #### [address] [address] Vice President Of Customer Service: Gee Royal MD [address] [place] [address] Vice President Of Customer Service: Loreta Zelaya MD #### CPEP #### [address] [address] Vice President Of Customer Service: Gee Royal MDPotassium [Moles/Vol]4.8 mmol/LNormal3.7-5.3 [facility] CenterComment on above:Result Comment: Specimen hemolysis has exceeded the interference as defined by Kat. Value may be falsely increased. Suggest recollection if clinically indicated.Performed By: #### INSU #### [address] [address] Vice President Of Customer Service: Gee Royal MD [address] [place] [address] Vice President Of Customer Service: Loreta Zelaya MD #### CPEP #### [address] [address] Vice President Of Customer Service: Gee Royal MDProtein [Mass/Vol]7.2 g/dLNormal6.6-8.7[facility] CenterComment on above:Performed By: #### INSU #### [address] [address] Vice President Of Customer Service: Gee Royal MD [facility] [address] [place] [address] [place] [address] Vice President Of Customer Service: Loreta Zelaya MD #### CPEP #### [facility] [address] [place] [address] Vice President Of Customer Service: QUAN Pinedaodium [Moles/Vol]130 mmol/UJbm507-051ElqmjKettering Health – Soin Medical CenterComascension river district hospital on above:Performed By: #### INSU #### [address] [address] Vice President Of Customer Service: Gee Royal MD [address] [place], [place] 6[address]83 Vice President Of Customer Service: Loreat Zelaya MD #### CPEP #### [address] [address] Vice President Of Customer Service: Gee Royal MDUrea nitrogen [Mass/Vol]19 mg/dLNoal6-20[facility] CenterComment on above:Performed By: #### INSU #### [address] [address] Vice President Of Customer Service: Gee Royal MD [address] [place] [address] Vice President Of Customer Service: Loreta Zleaya MD #### CPEP #### [address] [address] Vice President Of Customer Service: Gee Royal MDGlucose, Whole Bloodon 64-01-7108Igcjisl [Mass/Vol]458 mg/wMOabu97 - 100 mg/dLBon [facility] Brentwood HospitalInterpretation and review of laboratory resultsAbnoVeterans Affairs Black Hills Health Care SystemGlucose [Mass/Vol]458 mg/hXHdwe36-957ZgzxrKettering Health – Soin Medical CenterGlucose [Mass/Vol]506 mg/dLCritically high74 - 100 mg/dLBon [facility] Interpretation and review of laboratory resultsAbnormDickenson Community Hospital Bon [facility] Brentwood HospitalGlucose [Mass/Vol]506 mg/dLCritically gdwe72-187OttamKettering Health – Soin Medical CenterMagnesiumon 33-43-4573Mcddpvsdp [Mass/Vol]2 mg/dL1.6 - 2.6 mg/dL [facility] Careplex HospitalMagnesium [Mass/Vol]2.0 mg/dLNormal1.6-2.6Mer[facility] Day Kimball HospitalComment on above:Performed By: #### UOSMO #### [address] [place] [address] Vice President Of Customer Service: Gee Royal MD #### URNA #### [address] [place] [address] Vice President Of Customer Service: Loreta Zelaya MDNo Panel Informationon 13-06-4258Ztm [facility] Brentwood HospitalTroponinon 01-20-3901Zpiddwwy I.cardiac High sensitivity method [Mass/Vol]ng/L0 - 14 ng/LBon [facility] & Brentwood HospitalComascension river district hospital on above:High Sensitivity Troponin values cannot be compared with other Troponin methodologies.Troponin, High Sens<0Iidqlj2-45LbjphKettering Health – Soin Medical CenterComascension river district hospital on above:Result Comment: High Sensitivity Troponin values cannot be compared with other Troponin methodologies.Performed By: #### UOSMO #### [address] [address] [place] [address] Vice President Of Customer Service: Gee oRyal MD #### URNA #### [address] [place] [address] Vice President Of Customer Service: Loreta Zelaya MDVenous Blood Gaseson 43-42-9388Oodan TestNOT APPLICABLENormalKettering Health – Soin Medical CenterComascension river district hospital on above:Performed By: #### VBG #### [address] [place] [address] Vice President Of Customer Service: Loreta Zelaya MDAmesbury Health Center Temp.37.0NormalKettering Health – Soin Medical CenterComment on above:Performed By: #### VBG #### [address] [place], [place] [phone] Vice President Of Customer Service: Loreta Zelaya MDJHUVM125XhxhhvPwydqThe Jewish HospitalComment on above: Performed By: #### VBG #### [facility] [address] [place] [address] Dr[place], [place] [phone] Vice President Of Customer Service: Loreta Zelaya MDHCO3 (Bld) [Moles/Vol]17.9 mmol/LLow24.0-30.0[facility] HospitalComment on above:Performed By: #### VBG #### [facility] [address] [place] [address] Dr[place], [place] 6[address]2583 Vice President Of Customer Service: Loreta Zelaya MDNegative Base Excess6.3 mmol/LHigh0.0-2.0[facility] Medical CenterComment on above:Performed By: #### VBG #### [address] [place], [place] 8019583 Vice President Of Customer Service: Loreta Zelaya MDO2 Device/Flow/%ROOM AIRNormTrinity Health System HospitalComment on above:Performed By: #### VBG #### [address] [place], [place] 5047383 Vice President Of Customer Service: Loreta Zelaya MDOxygen saturation in Blood83.0 %Nswwzc23.0-85.0 [facility] Medical CenterComment on above:Performed By: #### VBG #### [facility] [address] [place] [address] [place] [address] Vice President Of Customer Service: Suzy FrazierCO232.4 mm EjJin42-69Bcmvt Tiffin HospitalComment on above:Performed By: #### VBG #### [facility] [address] [place] [address] [place] [address] Vice President Of Customer Service: SUZY Frazierco2 Adj'd for Temp.32.4 vcBfXse74.0-55.0[facility] HospitalComment on above:Performed By: #### VBG #### [facility] [address] [place] [address] Dr[place], [place] 5367983 Vice President Of Customer Service: Loreta Zelaya [facility] (Bld)7.361 [pH]Normal7.32-7.42[facility] Medical CenterComment on above:Performed By: #### VBG #### [address] [place], [place] 85[address]83 Vice President Of Customer Service: Loreta Zelaya [facility] Adjst'd for Temp.7.367Agyxsy2.320-7.420[facility] CenterComment on above:Performed By: #### VBG #### [address] [place] [address] Vice President Of Customer Service: Suzy FrazierO248.2 mm JeEktmmo26.0-50.0[facility] Comment on above:Performed By: #### VBG #### [address] [place] [address] Vice President Of Customer Service: Suzy Frazier Adj'd for Temp.48.2 zxMgGrnxsg28.0-50.0[facility] Medical CenterComment on above:Performed By: #### VBG #### [address] [place], [place] 1121083 Vice President Of Customer Service: JENNIFER Frazier PELVIS COMPLETE NON-OB TRANSABD/TRANSVAG W DOPPLERon 85-82-9967DJ PELVIS COMPLETE NON-OB TRANSABD/TRANSVAG W DOPPLER EXAMINATION: [...] Signed by: Trino Cantor MD 12/18/24 Final resultNoGuernsey Memorial HospitalI LUMBAR SPINE WO CONTRASTon 12-13-2024 [...] Signed by: Chas Vásquez MD 12/13/24 Final resultNormThe Jewish HospitalXR KNEE LEFT (1-2 VIEWS)on 71-29-5768RD KNEE LEFT (1-2 VIEWS)EXAM: 2 VIEWS XRAY [...] Signed by: Emiliano Tran MD 12/10/24 Final resultNormalSalem Regional Medical Center Knee - left 1 or 2 Viewson 12-10-2024 1. No acute findings. 2. Mild loss of joint space in the medial and lateral compartments compatible with degenerative change. [facility] CONSOLIDATEDEXAM: 2 VIEWS XRAY OF THE LEFT KNEE 12/08/2024 03:01:50 PM COMPARISON: None available. CLINICAL HISTORY: Acute pain of left knee. FINDINGS: BONES AND JOINTS: No acute fracture. No focal osseous lesion. No joint dislocation. No significant joint effusion. Mild loss of joint space in the medial and lateral compartments compatible with degenerative change. SOFT TISSUES: The soft tissues are unremarkable. [facility] Emiliano Carter MD - 12/10/2024 EXAM: 2 [...] and lateral compartments compatible with degenerative change. [facility] Knee - left 1 or 2 ViewsOrdered By: Emiliano Tran on 71-96-4179Dfk [facility] Work Phone: HIV Ag/Abon 07-84-9033AHR Ag/AbNon-ReactiveNormalFulton County Health CenterComment on above:Result Comment: No laboratory evidence of HIV infection. If acute HIV infection is suspected, consider testing for HIV-1 RNA.Performed By: #### INSU #### [address] [address] Vice President Of Customer Service: Gee Royal MD [address] [place] [phone] Vice President Of Customer Service: Loreta Zelaya MD #### CPEP #### [address] [address] Vice President Of Customer Service: Rani PinedaUNC Health Southeastern 71-31-1606Uxr A Ab,IgM Non-ReactiveNormPremier Health Atrium Medical CenterComment on above:Performed By: #### INSU #### [address] [address] Vice President Of Customer Service: Gee Royal MD [address] [place] [phone] Vice President Of Customer Service: Loreta Zelaya MD #### CPEP #### [address] [address] Vice President Of Customer Service: Amna Pineda Core Ab,IgMNon-ReactiveThe Bellevue HospitalComment on above:Performed By: #### INSU #### [address] [address] Vice President Of Customer Service: Gee Royal MD [address] [place] [phone] Vice President Of Customer Service: Loreta Zelaya MD #### CPEP #### [address] [address] Vice President Of Customer Service: Amna Pineda Surf AgNon-ReactiveThe Bellevue HospitalComment on above:Performed By: #### INSU #### [address] [address] Vice President Of Customer Service: Gee Royal MD [address] [place], [place] [phone] Vice President Of Customer Service: Loreta Zelaya MD #### CPEP #### [address] [address] Vice President Of Customer Service: Amna Pineda AbNon-ReactiveThe Bellevue HospitalComment on above:Result Comment: The hepatitis C [...] RNA by PCR.Performed By: #### INSU #### [address] [address] Vice President Of Customer Service: Gee Royal MD [address] [place] [phone] Vice President Of Customer Service: Loreta Zelaya MD #### CPEP #### [address] [address] Vice President Of Customer Service: SUZY Pinedarolactinon 76-02-6663Hhaasmpwi8.51 ng/mLLow 4.79-23.3Mer[facility] Kimball HospitalComment on above:Result Comment: The presence of macroprolactin may cause interference in female patients with various endocrinological diseases or during .Performed By: #### INSU #### [address] [address] Vice President Of Customer Service: Gee Royal MD [address] [place] [address] Vice President Of Customer Service: Loreta Zelaya MD #### CPEP #### [address] [address] Vice President Of Customer Service: Gee Royal MDT.pallidum Ab Screenon 12-09-2024T.pallidum Ab ScreenNon-ReactiveThe Bellevue HospitalComment on above:Result Comment: T. pallidum antibodies are not detected. There is no serological evidence of infection with T. pallidum (early primary syphilis cannot be excluded). Retest in 2-4 weeks if syphilis is clinically suspect.Performed By: #### INSU #### [facility] [address] [place] [address] Vice President Of Customer Service: Gee Royal MD [facility] [address] [place] [address] Vice President Of Customer Service: Loreta Zelaya MD #### CPEP #### [facility] [address] [place] [address] Vice President Of Customer Service: Gee Royal MDUS THYROIDon 70-10-5348LF THYROIDEXAMINATION: THYROID ULTRASOUND 12/08/2024 COMPARISON: None. TECHNIQUE: Real-time and color flow sonographic images were obtained using a linear transducer. [id number]. HISTORY: F 49 y/o old. ORDERING SYSTEM [...] (2) 2. Echogenicity: Isoechoic (1) 3. Shape: Mufwl-vyfr-kdai (0) 4. Margins: Ill-defined (0) 5. Echogenic [...] by: Brandt Kirk DO 12/08/24 Final resultNormalMercy Mt. [facility]inai Hospital Thyroid glandon . 16 mm TI- [...] more than four nodules should be followed. [facility] RIS CONSOLIDATEDEXAMINATION: THYROID ULTRASOUND 12/08/2024 COMPARISON: None. TECHNIQUE: Real-time and color flow sonographic images were obtained using a linear transducer. [id number]. HISTORY: F 49 y/o old. ORDERING SYSTEM [...] (2) 2. Echogenicity: Isoechoic (1) 3. Shape: Zhxde-ltob-ytxi (0) 4. Margins: Ill-defined (0) 5. Echogenic foci: None (0) ACR TI-RADS total points: 3 ACR TI-RADS risk category: TR3 Soft tissues: No visualized lymphadenopathy PN Brandt Moody, DO - 12/08/2024 EXAMINATION: THYROID ULTRASOUND 12/08/2024 COMPARISON: None. TECHNIQUE: Real-time and color flow sonographic images were obtained using a linear transducer. [id number]. HISTORY: F 49 y/o old. ORDERING SYSTEM [...] (2) 2. Echogenicity: Isoechoic (1) 3. Shape: Vrflx-odcg-fhfc (0) 4. Margins: Ill-defined (0) 5. Echogenic [...] more than four nodules should be followed. COCCRadiology Study observation (narrative)[facility] Thyroid glandOrdered By: Brandt Kikr on 32-65-0275Exv [employer] Work Phone: xr Knee - left 1 or 2 Viewson 35-67-5165Gtrkuklit Study observation (narrative)COCCCHLAMYDIA/GC BY PCR IMELDA SWABon 43-06-9586MZJWEUDVQ/GC BY PCR IMELDA SWABCHLAMYDIA DNA(PCR) Negative Chlamydia trachomatis not detected by nucleic acid amplification. This does not exclude the possibility of infection because results are dependent on adequate specimen collection. GONORRHOEAE DNA(PCR) Negative Neisseria gonorrhoeae not detected by nucleic acid amplification. This does not exclude the possibility of infection because results are dependent on adequate specimen collection.[facility] Ambulatory PPGComment on above: Performed By: #### CGS #### [facility] ([facility]) [address] [place] [address] VIRVAGINITIS PANEL PCRon 75-98-1976WJJQGGBAQ PANEL PCRBACT. VAGINOSIS DNA Not Detected Qualitative [...] accordance with clinical presentation to determine patient diagnosis.NormalUpper Valley Medical Center Ambulatory PPGComment on above:Performed By: #### VPPCR #### [facility] ([facility]) [address] [place] [address] VIRAlbumin/Creat Ratio, Urineon [id number],conc.[place] U <49Hikqtq7-35CcjxwWaterbury HospitalComment on above:Performed By: #### CDP #### [address] [place] [address] Vice President Of Customer Service: Loreta Zelaya, MDAlbumin/Creat RatioCan not be calculatedNormal 0.0-25.0[facility] HospitalComment on above:Performed By: #### CDP #### [address] [place] [address] Vice President Of Customer Service: Loreta Zelaya MDCreatinine Conc.15.9 mg/dLLow28.0-217.0[facility] CenterComment on above:Result Comment: Reference range defined for 1st morning urinePerformed By: #### CDP #### [address] [place] [address] Vice President Of Customer Service: Loreta Zelaya MDAlbumin/Creatinine Ratio, Urineon 11-14-2024 Albumin DL <= 20 mg/L (U) [Mass/Vol]mg/L0 - 20 mg/LBon [facility] Albumin/Creatinine DL <= 20 mg/L (U) [Ratio]Can not be calculatedBon [facility] & Brentwood HospitalCreatinine (U) [Mass/Vol]15.9 mg/dLLow28.0 - 217.0 mg/dLBon [facility] Brentwood HospitalComment on above:Reference range defined for 1st morning urine Interpretation and review of laboratory resultsAbnormalBon Community Memorial HospitalCBC with Auto Differentialon 73-32-7306Ururxslpb (Bld) [#/Vol]0.03 10*3/uLBon [facility] Brent[facility] HospitalBasophils/100 WBC (Bld)1 %0 - 2 %[facility] HospitalEosinophils (Bld) [#/Vol]0.08 10*3/uLBon [facility] & Brent[facility] HospitalEosinophils/100 WBC (Bld)2 %1 - 4 %[facility] HospitalErythrocyte distribution width (RBC) [Ratio]11.9 %11.8 - 14.4 %[facility] Hematocrit (Bld) [Volume fraction]41.4 %36.3 - 47.1 %[facility] Hemoglobin (Bld) [Mass/Vol]13.7 g/dL11.9 - 15.1 g/dLBon [facility] Immature granulocytes (Bld) [#/Vol][facility] HospitalImmature granulocytes/100 WBC (Bld)0 %0Bon [facility] Brentwood HospitalLymphocytes/100 WBC (Bld) 29 %24 - 43 %[facility] HospitalLymphocytes/100 WBC (Bld)1.41 %[facility] HospitalH (RBC) [Entitic mass]32.7 pg25.2 - 33.5 pgBon Mansfield HospitalHC (RBC) [Mass/Vol]33.1 g/dL28.4 - 34.8 g/dLBon Mansfield HospitalV (RBC) [Entitic vol]98.8 fL82.6 - 102.9 fLSentara Careplex HospitalMonocytes/100 WBC (Bld)6 %3 - 12 %[facility] HospitalMonocytes/100 WBC (Bld)0.31 %[facility] HospitalNeutrophils/100 WBC (Bld)62 %36 - 65 %[facility] HospitalNucleated RBC/100 WBC (Bld) [Ratio]0 %0.0 per 100 WBCSentara Careplex HospitalPlatelet mean volume (Bld) [Entitic vol]9.8 fL8.1 - 13.5 fLSentara Careplex HospitalPlatelets (Bld) [#/Vol]335 10*3/uLBon [facility] & Brentwood HospitalRBC (Bld) [#/Vol]4.19 10*6/uL3.95 - 5.11 m/uLSentara Careplex HospitalSegmented neutrophils/100 WBC (Bld)3 %Bon [facility] Brentwood HospitalWBC other (Bld) [#/Vol]4.9 [facility] HealthcareCB with Diffon [id number]. Basophil0.03 k/uLNormal0.00-0.20[facility] HospitalComment on above:Performed By: #### CDP #### [address] [place] [phone] Vice President Of Customer Service: MDAbs. KarinImm.Granulocyte<0.21Jddiin8.00-0.30MerMercy Health St. [facility] Hospital HospitalComment on above:Performed By: #### CDP #### [address] [place] [phone] Vice President Of Customer Service: MDAbs. KarinNeutrophil (Seg)3.00 k/uLNormal1.50-8.10MerMercy Health St. Charles Hospital HospitalComment on above:Performed By: #### CDP #### [address] [place] [address] Vice President Of Customer Service: Loreta Zelaya MDBasophils/100 WBC (Bld)1 %Normal0-2[facility] HospitalComment on above:Performed By: #### CDP #### [address] [place] [address] Vice President Of Customer Service: Loreta Zelaya MDEosinophils (Bld) [#/Vol]0.08 10*3/uLNormal 0.00-0.44MerMercy Health St. Charles Hospital HospitalComment on above:Performed By: #### CDP #### [address] [place], [place] [phone] Vice President Of Customer Service: Loreta Zelaya MDEosinophils/100 WBC (Bld)2 %Normal1-4[facility] CenterComment on above:Performed By: #### CDP #### [address] [place] [address] Vice President Of Customer Service: Loreta Zelaya MDErythrocyte distribution width (RBC) [Ratio]11.9 % Yfvylj03.8-14.4[facility] HospitalComment on above:Performed By: #### CDP #### [address] [place] [address] Vice President Of Customer Service: Loreta Zelaya MDHematocrit (Bld) [Volume fraction]41.4 %Normal 36.3-47.1MSycamore Medical Center HospitalComment on above:Performed By: #### CDP #### [address] [place], [place] [address] Vice President Of Customer Service: Loreta Zelaya MDHemoglobin (Bld) [Mass/Vol]13.7 g/dLNormal 11.9-15.1MSycamore Medical Center HospitalComment on above:Performed By: #### CDP #### [address] [place], [place] [address] Vice President Of Customer Service: Loreta Zelaya MDImmature granulocytes/100 WBC (Bld)0 %Mkxmqo1Mysez Tiffin HospitalComment on above:Performed By: #### CDP #### [address] [place], [facility]83 Vice President Of Customer Service: Loreta Zelaya MDLymphocytes (Bld) [#/Vol]1.41 10*3/uLNormal 1.10-3.70[facility] HospitalComment on above:Performed By: #### CDP #### [address] [place], [facility]83 Vice President Of Customer Service: Loreta Zelaya MDLymphocytes/100 WBC (Bld)29 %Znupae17-06SntpoKettering Health – Soin Medical CenterComment on above:Performed By: #### CDP #### [address] [place], [place] 6644383 Vice President Of Customer Service: MIGUELINA FrazierCH (RBC) [Entitic mass]32.7 ugVtybje54.2-33.5 [facility] HospitalComment on above:Performed By: #### CDP #### [address] [place] [address] Vice President Of Customer Service: MIGUELINA FrazierCHC (RBC) [Mass/Vol]33.1 g/lMGgkdew00.4-34.8[facility] CenterComment on above:Performed By: #### CDP #### [address] [place] [address] Vice President Of Customer Service: MIGUELINA FrazierCV (RBC) [Entitic vol]98.8 rLErixxz05.6-102.9 [facility] Soin Medical CenterComment on above:Performed By: #### CDP #### [address] [place] [address] Vice President Of Customer Service: MIGUELINA Frazieronocytes (Bld) [#/Vol]0.31 10*3/uLNormal0.10-1.20 [facility] CenterComment on above:Performed By: #### CDP #### [address] [place] [address] Vice President Of Customer Service: MIGUELINA Frazieronocytes/100 WBC (Bld)6 %Normal3-12[facility] Medical CenterComment on above:Performed By: #### CDP #### [address] [place], [place] [id number] Vice President Of Customer Service: Loreta Zelaya MDNeutrophil (Seg)62 %Fcosye19-26[facility] HospitalComment on above:Performed By: #### CDP #### [facility] [address] [place] [address] Vice President Of Customer Service: TYREL Frazier Automated0.0 per 100 WBCNormal0.0[facility] HospitalComment on above:Performed By: #### CDP #### [facility] [address] [place] [address] Vice President Of Customer Service: Helena Frazier mean volume (Bld) [Entitic vol]9.8 fL Normal8.1-13.5[facility] HospitalComment on above:Performed By: #### CDP #### [address] [place] [address] Vice President Of Customer Service: Luna Frazier (Bld) [#/Vol]335 10*3/iMFhesly476-787 [facility] HospitalComment on above:Performed By: #### CDP #### [address] [place] [address] Vice President Of Customer Service: SARA Frazier (Bld) [#/Vol]4.19 10*6/uLNormal3.95-5.11[facility] Centercy [facility] HospitalComment on above:Performed By: #### CDP #### [address] [place] [address] Vice President Of Customer Service: TSERING Frazier (Bld) [#/Vol]4.9 10*3/uLNormal3.5-11.3[facility] HospitalComment on above:Performed By: #### CDP #### [address] [place], [place] [id number] Vice President Of Customer Service: RUTH [facility]ier[facility] Metabolic Profon 36-31-9493Ijatpjy [Mass/Vol] 4.4 g/dLNormal3.5-5.2[facility] HospitalComment on above:Performed By: #### VBG #### [address] [place] [address] Vice President Of Customer Service: Loreta Zelaya MDAlbumin/Glob Ratio1.4Rcqgef1.0-2.5MerMercy Health [facility] Hospital HospitalComment on above:Performed By: #### VBG #### [address] [place] [address] Vice President Of Customer Service: Bill Frazierkaline Pxjr514 U/DQdhs64-427Ghlpi [facility]iffin HospitalComment on above:Performed By: #### VBG #### [address] [place] [address] Vice President Of Customer Service: Loreta Zelaya MDALT [Catalytic activity/Vol]24 U/YAmzwst81-07Nyvwq [facility] HospitalComment on above:Performed By: #### VBG #### [address] [place] [address] Vice President Of Customer Service: Loreta Zelaya MDAnion gap [Moles/Vol]13 mmol/LNormal9-16[facility] HospitalComment on above:Performed By: #### VBG #### [address] [place] [address] Vice President Of Customer Service: Loreta Zelaya MDAST [Catalytic activity/Vol]18 U/LOdvmah89-35Ultoe [facility] HospitalComment on above:Performed By: #### VBG #### [facility] [address] [place] [address] [place] [address] Vice President Of Customer Service: Loreta Zelaya MDBilirubin [Mass/Vol]mg/dLNormal0.00-1.20MerMercy Health St. [facility] Hospital HospitalComment on above:Performed By: #### VBG #### [address] [place] [address] Vice President Of Customer Service: Loreta Zelaya MDBUN/CRE Zhimo52Fmbc6-09GwdspKettering Health – [facility] Center Comment on above:Performed By: #### VBG #### [facility] [address] [place] [address] [place], [place] [phone] Vice President Of Customer Service: RUTH Frazieralcium [Mass/Vol]9.4 mg/dLNormal8.6-10.4[facility] Medical CenterComment on above:Performed By: #### VBG #### [facility] [address] [place] [address] [place] [address] Vice President Of Customer Service: RUTH Frazierhloride [Moles/Vol]95 mmol/BFoe04-699AmhbrKettering Health – Soin Medical CenterComment on above:Performed By: #### VBG #### [address] [place] [address] Vice President Of Customer Service: RUTH FrazierO2 [Moles/Vol]25 mmol/OCjmkol97-95SkfmyWaterbury HospitalComment on above:Performed By: #### VBG #### [address] [place], [place] 1040183 Vice President Of Customer Service: RUTH Frazierreatinine [Mass/Vol]0.6 mg/dLNormal0.50-0.90[facility] Medical CenterComment on above:Performed By: #### VBG #### [address] [place], [place] [phone] Vice President Of Customer Service: Loreta Zelaya MDGFR/1.73 sq M.predicted among non-blacks MDRD (S/P/Bld) [Vol rate/Area]mL/min/{1.73_m2}Normal>60[facility] Medical CenterComment on above:Result Comment: These results [...] renal tubular secretion.Performed By: #### VBG #### [address] [place], [place] [phone] Vice President Of Customer Service: Loreta Zelaya MDGlucose [Mass/Vol]605 mg/dLCritically yvzn00-70 [facility] CenterComment on above:Performed By: #### VBG #### [address] [place] [address] Vice President Of Customer Service: SUZY Frazierotassium [Moles/Vol]4.7 mmol/LNormal3.7-5.3MWestern Reserve HospitalComment on above:Result Comment: Specimen hemolysis has exceeded the interference as defined by Kat. Value may be falsely increased. Suggest recollection if clinically indicated.Performed By: #### VBG #### [address] [place] [address] Vice President Of Customer Service: SUZY Frazierrotein [Mass/Vol]7.1 g/dLNormal6.6-8.7[facility] CenterComment on above:Performed By: #### VBG #### [address] [place] [address] Vice President Of Customer Service: Loreta Zelaya MDSodium [Moles/Vol]133 mmol/SKva243-758NwsdoKettering Health – Soin Medical CenterComment on above:Performed By: #### VBG #### [address] [place] [address] Vice President Of Customer Service: Loreta Zelaya MDUrea nitrogen [Mass/Vol]21 mg/dLHigh6-20[facility] CenterComment on above:Performed By: #### VBG #### [address] [place], [place] [phone] Vice President Of Customer Service: RUTH Frazieromprehensive Metabolic Panelon [id number] [Mass/Vol]4.4 g/dL3.5 - 5.2 g/dLBon PrediculousAlbumin/Globulin [Mass ratio]1.6 {ratio}1.0 - 2.5Bon [facility] MashupsALP [Catalytic activity/Vol] 224 U/LHigh35 - 104 U/LBon [facility]del[facility] MashupsALT [Catalytic activity/Vol]24 U/L10 - 35 U/LBon [facility]del[facility] MashupsAnion gap [Moles/Vol]13 mmol/L9 - 16 mmol/LBon [facility] Pidefarma HealthAST [Catalytic activity/Vol]18 U/L10 - 35 U/LBon [facility]del[facility] MashupsBilirubin [Mass/Vol]mg/dL0.00 - 1.20 mg/dLBon [facility] MashupsCalcium [Mass/Vol]9.4 mg/dL8.6 - 10.4 mg/dLBon [facility] Mashups Chloride [Moles/Vol]95 mmol/LLow98 - 107 mmol/LBon [facility] MashupsCO2 [Moles/Vol]25 mmol/L20 - 31 mmol/LBon [facility] MashupsCreatinine [Mass/Vol] 0.6 mg/dL0.50 - 0.90 mg/dLBon [facility] CenterOfficial Limited VirtualEst, Glom Filt Rate- PINFBon [facility] CenterOfficial Limited VirtualComment on above: These results are not intended [...] Glucose [Mass/Vol]605 mg/dLCritically high74 - 99 mg/dLBon Prediculous Interpretation and review of laboratory resultsAbnormalBon [facility] CenterOfficial Limited Virtual Potassium [Moles/Vol]4.7 mmol/L3.7 - 5.3 mmol/LBon [facility] CenterOfficial Limited VirtualComment on above:Specimen hemolysis has exceeded the interference as defined by Kat. Value may be falsely increased. Suggest recollection if clinically indicated. Protein [Mass/Vol]7.1 g/dL6.6 - 8.7 g/dLBon [facility] Brentwood HospitalSodium [Moles/Vol]133 mmol/XYdr984 - 145 mmol/LBon [facility] Brentwood HospitalUrea nitrogen [Mass/Vol]21 mg/dLHigh6 - 20 mg/dLBon [facility] & Brentwood HospitalUrea nitrogen/Creatinine [Mass ratio]35 mg/mgHigh9 - 20Bon [facility] & Brentwood HospitalBon [facility] & Brentwood HospitalC-Peptideon 30-41-8568U-Peptide0.2 ng/mLLow1.1-4.4[facility] CenterComment on above:Performed By: #### INSU #### [facility] [address] [place], [place] 0687[address] Vice President Of Customer Service: Gee Royal MD [facility] [address] [place] [address] [place] [address] Vice President Of Customer Service: Loreta Zelaya MD #### CPEP #### [facility] [address] [place], [place] [phone] Vice President Of Customer Service: Gee Royal [facility] – OKLAHOMA CITYBC auto differentialon [id number] (Bld) [#/Vol]0.04 10*3/uLBon [facility] Medical Centerours Children'S Hospital For RehabilitationBasophils/100 WBC (Bld)1 %0 - 2 %[facility] HospitalEosinophils (Bld) [#/Vol]0.1 10*3/uLBon Secours Children'S Hospital For RehabilitationEosinophils/100 WBC (Bld)2 %1 - 4 %[facility] HospitalErythrocyte distribution width (RBC) [Ratio]13.6 %11.8 - 14.4 %[facility] Hematocrit (Bld) [Volume fraction]36.9 %36.3 - 47.1 %[facility] Hemoglobin (Bld) [Mass/Vol]11.8 g/dLLow11.9 - 15.1 g/dLBon [facility] Immature granulocytes (Bld) [#/Vol]Bon [facility] Brentwood HospitalImmature granulocytes/100 WBC (Bld)1 %Wsdo7Sth [facility] Brentwood HospitalInterpretation and review of laboratory resultsAbnormalBon [facility] & Brentwood HospitalLymphocytes/100 WBC (Bld)39 %24 - 43 %[facility] HospitalLymphocytes/100 WBC (Bld)1.62 %[facility] HospitalH (RBC) [Entitic mass]33.1 pg25.2 - 33.5 pgInova Children's HospitalHC (RBC) [Mass/Vol]32 g/dL28.4 - 34.8 g/dLBon [facility] MCV (RBC) [Entitic vol]103.4 bZMnfi90.6 - 102.9 fLSentara Careplex Hospital Monocytes/100 WBC (Bld)11 %3 - 12 %[facility] HospitalMonocytes/100 WBC (Bld)0.47 %[facility] HospitalNeutrophils/100 WBC (Bld)46 %36 - 65 %[facility] HospitalNucleated RBC/100 WBC (Bld) [Ratio]0 %0.0 per 100 WBCSentara Careplex HospitalPlatelet mean volume (Bld) [Entitic vol]10 fL8.1 - 13.5 fL [facility] HospitalPlatelets (Bld) [#/Vol]256 10*3/uLBon [facility] & Brentwood HospitalRBC (Bld) [#/Vol]3.57 10*6/uLLow3.95 - 5.11 m/[facility] Segmented neutrophils/100 WBC (Bld)1.91 %[facility] HospitalWBC other (Bld) [#/Vol]4.2Bon [facility] Memorial HospitalCBC with Diffon [id number]. Basophil0.04 k/uLNormal0.00-0.20[facility] Medical CenterComment on above:Performed By: #### UAMIC #### [facility] [address] [place] [address] [place] [address] Vice President Of Customer Service: Marie Frazier.Imm.Granulocyte<0.22Tzmxpf5.00-0.30[facility] Medical CenterComment on above:Performed By: #### UAMIC #### [facility] [address] [place] [address] Vice President Of Customer Service: Marie Frazier.Neutrophil (Seg)1.91 k/uLNormal1.50-8.10[facility] CenterComment on above:Performed By: #### UAMIC #### [address] [place], [place] [phone] Vice President Of Customer Service: Lortea Zelaya MDBasophils/100 WBC (Bld)1 %Normal0-2MSycamore Medical Center HospitalComment on above:Performed By: #### UAMIC #### [address] [place] [address] Vice President Of Customer Service: Loreta Zelaya MDEosinophils (Bld) [#/Vol]0.10 10*3/uLNormal 0.00-0.44[facility] Medical CenterComment on above:Performed By: #### UAMIC #### [address] [place], [facility]83 Vice President Of Customer Service: FARIBA Frazierosinophils/100 WBC (Bld)2 %Normal1-4[facility] HospitalComment on above:Performed By: #### UAMIC #### [address] [place] [phone] Vice President Of Customer Service: Loreta Zelaya MDErythrocyte distribution width (RBC) [Ratio]13.6 % Tgmhgw25.8-14.4[facility] CenterComment on above:Performed By: #### UAMIC #### [address] [place], [facility]83 Vice President Of Customer Service: Loreta Zelaya MDHematocrit (Bld) [Volume fraction]36.9 %Normal 36.3-47.1MSycamore Medical Center HospitalComment on above:Performed By: #### UAMIC #### [address] [place], [place] 366[address]83 Vice President Of Customer Service: Loreta Zelaya MDHemoglobin (Bld) [Mass/Vol]11.8 g/dLLow11.9-15.1 [facility] CenterComment on above:Performed By: #### UAMIC #### [address] [place], [place] 2454983 Vice President Of Customer Service: Loreta Zelaya MDImmature granulocytes/100 WBC (Bld)1 %Gjyz2JcploLakehealth Tripoint Medical Center HospitalComment on above:Performed By: #### UAMIC #### [address] [place] [address] Vice President Of Customer Service: Loreta Zelaya MDLymphocytes (Bld) [#/Vol]1.62 10*3/uLNormal 1.10-3.70[facility] HospitalComment on above:Performed By: #### UAMIC #### [address] [place], [place] 6797383 Vice President Of Customer Service: Luciana Fraziermphocytes/100 WBC (Bld)39 %Bvcsgs96-65WqlthKettering Health – Soin Medical CenterComment on above:Performed By: #### UAMIC #### [address] [place], [place] 5735383 Vice President Of Customer Service: MIGUELINA FrazierCH (RBC) [Entitic mass]33.1 oeLmekux07.2-33.5 [facility] CenterComment on above:Performed By: #### UAMIC #### [address] [place], [place] [address]83 Vice President Of Customer Service: MIGUELINA FrazierCHC (RBC) [Mass/Vol]32.0 g/zEQffvjs76.4-34.8[facility] HospitalComment on above:Performed By: #### UAMIC #### [address] [place] [address] Vice President Of Customer Service: MIGUELINA FrazierCV (RBC) [Entitic vol]103.4 xZBaam73.6-102.9[facility] HospitalComment on above:Performed By: #### UAMIC #### [address] [place] [address] Vice President Of Customer Service: MIGUELINA Frazieronocytes (Bld) [#/Vol]0.47 10*3/uLNormal0.10-1.20 [facility] CenterComment on above:Performed By: #### UAMIC #### [address] [place] [address] Vice President Of Customer Service: MIGUELINA Frazieronocytes/100 WBC (Bld)11 %Normal3-12[facility] CenterComment on above:Performed By: #### UAMIC #### [address] [place] [address] Vice President Of Customer Service: Se Frazierutrophil (Seg)46 %Ugvsyj00-83Wajaj [facility] HospitalComment on above:Performed By: #### UAMIC #### [address] [place] [address] Vice President Of Customer Service: Loreta Zelaya MDNRBC Automated0.0 per 100 WBCNormal0.0[facility] CenterComment on above:Performed By: #### UAMIC #### [address] [place] [address] Vice President Of Customer Service: Helena Frazier mean volume (Bld) [Entitic vol]10.0 fL Normal8.1-13.5[facility] CenterComment on above:Performed By: #### UAMIC #### [address] [place], [place] 3204883 Vice President Of Customer Service: Jamel Fraziertelets (Bld) [#/Vol]256 10*3/vLHuahll586-102 [facility] CenterComment on above:Performed By: #### UAMIC #### [address] [place] [address] Vice President Of Customer Service: SARA Frazier ([facility]) [#/Vol]3.57 10*6/uLLow3.95-5.11[facility] HospitalComment on above:Performed By: #### UAMIC #### [address] [place], [place] 069[address]83 Vice President Of Customer Service: TSERING Frazier ([facility]) [#/Vol]4.2 10*3/uLNormal3.5-11.3[facility] hospitaly [facility] HospitalComment on above:Performed By: #### UAMIC #### [address] [place], [place] [phone] Vice President Of Customer Service: RUTH Frazieromp Metabolic Pr/rfx MGon 12-81-4600Cjhcddu [Mass/Vol]2.9 g/dLLow3.5-5.2MSycamore Medical Center HospitalComment on above:Performed By: #### UAMIC #### [address] [place] [address] Vice President Of Customer Service: Loreta Zelaya MDAlbumin/Glob Ratio1.1Iugcgp9.0-2.5[facility] CenterComment on above:Performed By: #### UAMIC #### [address] [place], [facility]83 Vice President Of Customer Service: Kumar Frazierline Phos82 U/YQoviqj80-317MmmlsKettering Health – Soin Medical CenterComment on above:Performed By: #### UAMIC #### [facility] [address] [place] [address] [place], [place] [phone] Vice President Of Customer Service: Loreta Zelaya MDALT [Catalytic activity/Vol]37 U/KJdnr76-04XchkzKettering Health – Soin Medical CenterComment on above:Performed By: #### UAMIC #### [address] [place], [place] 8723483 Vice President Of Customer Service: Loreta Zelaya MDAnion gap [Moles/Vol]8 mmol/LLow9-16[facility] CenterComment on above:Performed By: #### UAMIC #### [address] [place], [place] 3208383 Vice President Of Customer Service: Loreta Zelaya MDAST [Catalytic activity/Vol]44 U/FZqzj45-06KaswzKettering Health – Soin Medical CenterComment on above:Performed By: #### UAMIC #### [address] [place], [place] 1686283 Vice President Of Customer Service: Loreta Zelaya MDBilirubin [Mass/Vol]mg/dLNormal0.00-1.20[facility] CenterComment on above:Performed By: #### UAMIC #### [address] [place], [place] 1082783 Vice President Of Customer Service: Loreta Zelaya MDBUN/CRE Meyne52Biwl9-23WcdoeKettering Health – Soin Medical Center Comment on above:Performed By: #### UAMIC #### [address] [place], [place] 627[address]83 Vice President Of Customer Service: Loreta Zelaya MDCalcium [Mass/Vol]8.3 mg/dLLow8.6-10.4[facility] CenterComment on above:Performed By: #### UAMIC #### [facility] [address] [place] [address] [place], [place] 538[address] Vice President Of Customer Service: Loreta Zelaya MDChloride [Moles/Vol]104 mmol/AVgkgxq27-277UvmeeKettering Health – Soin Medical CenterComment on above:Performed By: #### UAMIC #### [address] [place], [place] 7095383 Vice President Of Customer Service: Loreta Zelaya MDCO2 [Moles/Vol]27 mmol/LVjrgfw37-29NhwfgKettering Health – Soin Medical CenterComment on above:Performed By: #### UAMIC #### [address] [place] [address] Vice President Of Customer Service: RUTH Frazierreatinine [Mass/Vol]0.4 mg/dLLow0.50-0.90[facility] CenterComment on above:Performed By: #### UAMIC #### [address] [place] [address] Vice President Of Customer Service: Loreta Zelaya MDGFR/1.73 sq M.predicted among non-blacks MDRD (S/P/Bld) [Vol rate/Area]mL/min/{1.73_m2}Normal>60[facility] CenterComment on above:Result Comment: These results [...] renal tubular secretion.Performed By: #### UAMIC #### [address] [place] [address] Vice President Of Customer Service: Loreta Zelaya MDGlucose [Mass/Vol]98 mg/aOIeoaky55-43Dqwuv Day Kimball HospitalComment on above:Performed By: #### UAMIC #### [address] [place] [address] Vice President Of Customer Service: SUZY Frazierotassium [Moles/Vol]4.0 mmol/LNormal3.7-5.3MSycamore Medical Center HospitalComment on above:Performed By: #### UAMIC #### [address] [place] [address] Vice President Of Customer Service: Loreta Zelaya MDProtein [Mass/Vol]4.7 g/dLLow6.6-8.7[facility] HospitalComment on above:Performed By: #### UAMIC #### [place] [address] [place] [address] Vice President Of Customer Service: QUAN Frazierodium [Moles/Vol]139 mmol/BGpygze383-405PqpeeKettering Health – Soin Medical CenterComment on above:Performed By: #### UAMIC #### [facility] [address] [place] [address] Vice President Of Customer Service: Loreta Zelaya MDUrea nitrogen [Mass/Vol]15 mg/dLNormal6-20[facility] CenterComment on above:Performed By: #### UAMIC #### [facility] [address] [place] [address] Vice President Of Customer Service: RUTH Frazieromprehensive Metabolic Panel w/ Reflex to MGon 59-74-8737Dpgnfef [Mass/Vol]2.9 g/dLLow3.5 - 5.2 g/dLBon [facility] Albumin/Globulin [Mass ratio]1.7 {ratio}1.0 - 2.5Bon [facility] HospitalALP [Catalytic activity/Vol]82 U/L35 - 104 U/LBon [facility] HospitalALT [Catalytic activity/Vol]37 U/LHigh10 - 35 U/LBon [facility] HospitalAnion gap [Moles/Vol] 8 mmol/LLow9 - 16 mmol/LBon [facility] Brent[facility] HospitalAST [Catalytic activity/Vol]44 U/LHigh10 - 35 U/LBon [facility] HospitalBilirubin [Mass/Vol]mg/dL0.00 - 1.20 mg/dLBon [facility] HospitalCalcium [Mass/Vol]8.3 mg/dLLow8.6 - 10.4 mg/dLBon [facility] HospitalChloride [Moles/Vol]104 mmol/L98 - 107 mmol/LBon [facility] HospitalCO2 [Moles/Vol]27 mmol/L20 - 31 mmol/LBon [facility] Creatinine [Mass/Vol]0.4 mg/dLLow0.50 - 0.90 mg/dLBon [facility] Brentwood HospitalEst, Glom Filt Rate- PINFBon [facility] on above: These results are not [...] secretion. Glucose [Mass/Vol]98 mg/dL74 - 99 mg/dLBon [facility] Brent[facility] HospitalInterpretation and review of laboratory resultsAbnormDickenson Community HospitalPotassium [Moles/Vol]4 mmol/L3.7 - 5.3 mmol/LBon [facility] HospitalProtein [Mass/Vol]4.7 g/dLLow6.6 - 8.7 g/dLBon [facility] & Brentwood HospitalSodium [Moles/Vol]139 mmol/L136 - 145 mmol/LBon [facility] Brentwood HospitalUrea nitrogen [Mass/Vol]15 mg/dL6 - 20 mg/dL [facility] HospitalUrea nitrogen/Creatinine [Mass ratio]38 mg/mgHigh9 - 20 [facility] HealthcareEKG Rhythm Stripon 10-18-2024 [facility] LABSentara Careplex HospitalGlucose, Whole Bloodon 73-36-4374Mjohepw [Mass/Vol]230 mg/jKSpao75 - 100 mg/dLBon [facility] Interpretation and review of laboratory resultsAbnoDakota Plains Surgical CenterGlucose [Mass/Vol]230 mg/nBQwrm38-023SmlkuKettering Health – Soin Medical CenterGlucose [Mass/Vol]99 mg/dL74 - 100 mg/dLBon [facility] Memorial HospitalGlucose [Mass/Vol]99 mg/kGMtbxrn80-750LqvdrKettering Health – [facility] Center Insulinon 44-17-7963Uckjfpv1.1 mU/LNBrown Memorial Hospital on above: Performed By: #### INSU #### [facility] [address] [place] [address] Vice President Of Customer Service: Gee Royal MD [facility] [address] [phone] Vice President Of Customer Service: Loreta Zelaya MD #### CPEP #### [address] [address] Vice President Of Customer Service: Milka Pineda [facility] Comment on above:Result Comment: Fastin.6-24.9 30 min: 20-112 60 min: 29-88 90 min: 26-84 120 min: 22-79Performed By: #### INSU #### [address] [address] Vice President Of Customer Service: Gee Royal MD [address] [place] [phone] Vice President Of Customer Service: Loreta Zelaya MD #### CPEP #### [address] [address] Vice President Of Customer Service: RUTH Pineda[address] Comment on above:Performed By: #### INSU #### [address] [address] Vice President Of Customer Service: Gee Royal MD [address] [place] [phone] Vice President Of Customer Service: Loreta Zelaya MD #### CPEP #### [address] [address] Vice President Of Customer Service: Gee Royal MDTSHoaayush 22-78-4412EVF Qn3.09 m[IU]/LBon [facility] Brentwood HospitalBon [facility] & Brentwood HospitalThyroid Stim. Horm.on [id number] Stim. Horm.3.09 uIU/mLNormal0.27-4.20[facility] Soin Medical CenterComment on above: Performed By: #### UAMIC #### [address] [place] [id number] Vice President Of Customer Service: Loreta Zelaya MDThyroxine, Freeon 99-37-1671Kchtzddpx, Free0.9 ng/dLLow0.92-1.68[facility] Soin Medical CenterComment on above:Performed By: #### UAMIC #### [facility] [address] [place] [address] Dr[address] [place], [place] [id number] Vice President Of Customer Service: Loreta Zelaya, MDAlbumin/Creat Ratio, Urineon 10-17-2024 Albumin,conc.[place] U<02Zqbekd4-95XktwcKettering Health – Soin Medical CenterComascension river district hospital on above:Performed By: #### UAMIC #### [address] [place], [place] [id number] Vice President Of Customer Service: Loreta Zelaya, MDAlbumin/Creat RatioCan not be calculatedNormal 0.0-25.0[facility] Soin Medical CenterComment on above:Performed By: #### UAMIC #### [address] [place], [place] [phone] Vice President Of Customer Service: Loreta Zelaya, MDCreatinine Conc.46.7 mg/mSMmxxtt26.0-217.0[facility] CenterComascension river district hospital on above:Result Comment: Reference range defined for 1st morning urinePerformed By: #### UAMIC #### [address] [place], [place] [phone] Vice President Of Customer Service: Loreta Zelaya MDAlbumin/Creatinine Ratio, Urineon 10-17-2024 Albumin DL <= 20 mg/L (U) [Mass/Vol]mg/L0 - 20 mg/LBon [facility] Albumin/Creatinine DL <= 20 mg/L (U) [Ratio]Can not be calculatedBon [facility] Brentwood HospitalCreatinine (U) [Mass/Vol]46.7 mg/dL28.0 - 217.0 mg/dLBon [facility] Brent[facility] HospitalComascension river district hospital on above:Reference range defined for 1st morning urineBon [facility] Brentwood HospitalCBC auto differentialon [id number] (Bld) [#/Vol] 0.04 10*3/uLBon [facility] HospitalBasophils/100 WBC (Bld)1 %0 - 2 %[facility] HospitalEosinophils (Bld) [#/Vol]0.11 10*3/uLBon [facility] Eosinophils/100 WBC (Bld)3 %1 - 4 %[facility] HospitalErythrocyte distribution width (RBC) [Ratio]13.5 %11.8 - 14.4 %[facility] Hematocrit (Bld) [Volume fraction]34.7 %Low36.3 - 47.1 %[facility] Hemoglobin (Bld) [Mass/Vol]11.3 g/dLLow11.9 - 15.1 g/dLBon [facility] Immature granulocytes (Bld) [#/Vol][facility] HospitalImmature granulocytes/100 WBC (Bld)1 %Ydgq0InbSentara Careplex HospitalInterpretation and review of laboratory resultsAbnormalSentara Careplex HospitalLymphocytes/100 WBC (Bld)45 %High24 - 43 %[facility] HospitalLymphocytes/100 WBC (Bld)1.57 %[facility] HospitalH (RBC) [Entitic mass]33 pg25.2 - 33.5 pgInova Children's HospitalHC (RBC) [Mass/Vol]32.6 g/dL28.4 - 34.8 g/dLBon [facility]field HospitalV (RBC) [Entitic vol]101.5 fL82.6 - 102.9 fLSentara Careplex Hospital Monocytes/100 WBC (Bld)14 %High3 - 12 %[facility] HospitalMonocytes/100 WBC (Bld)0.48 %[facility] HospitalNeutrophils/100 WBC (Bld)36 %36 - 65 %[facility] HospitalNucleated RBC/100 WBC (Bld) [Ratio]0 %0.0 per 100 WBCSentara Careplex HospitalPlatelet mean volume (Bld) [Entitic vol]10.1 fL8.1 - 13.5 fL [facility] HealthPlatelets (Bld) [#/Vol]219 10*3/uLBon [facility] HospitalRBC (Bld) [#/Vol]3.42 10*6/uLLow3.95 - 5.11 m/uLBon [facility] Segmented neutrophils/100 WBC (Bld)1.26 %LowBon [facility] Brentwood HospitalWBC other (Bld) [#/Vol]3.5Bon [facility] HospitalBon [facility] HospitalCBC with Diffon [id number]. Basophil0.04 k/uLNormal0.00-0.20MerMer[facility] HospitalComment on above:Performed By: #### BMP #### [address] [place] [address] Vice President Of Customer Service: MDAbs. KarinImm.Granulocyte<0.76Epkarj9.00-0.30MerMercy Health St. Charles Hospital HospitalComment on above:Performed By: #### BMP #### [address] [place] [phone] Vice President Of Customer Service: MDAbs. KarinNeutrophil (Seg)1.26 k/uLLow1.50-8.10MerMercy Health St. Charles Hospital HospitalComment on above:Performed By: #### BMP #### [address] [place] [address] Vice President Of Customer Service: Loreta Zelaya MDBasophils/100 WBC (Bld)1 %Normal0-2[facility] HospitalComment on above:Performed By: #### BMP #### [address] [place] [address] Vice President Of Customer Service: Loreta Zelaya MDEosinophils (Bld) [#/Vol]0.11 10*3/uLNormal 0.00-0.44MerMercy Health St. Charles Hospital HospitalComment on above:Performed By: #### BMP #### [address] [place] [phone] Vice President Of Customer Service: FARIBA Frazierosinophils/100 WBC (Bld)3 %Normal1-4MerMercy Health St. Charles Hospital HospitalComment on above:Performed By: #### BMP #### [address] [place], [place] [phone] Vice President Of Customer Service: Loreta Zelaya MDErythrocyte distribution width (RBC) [Ratio]13.5 % Siblrb91.8-14.4[facility] HospitalComment on above:Performed By: #### BMP #### [address] [place], [place] [address] Vice President Of Customer Service: Loreta Zelaya MDHematocrit (Bld) [Volume fraction]34.7 %Low 36.3-47.1MSycamore Medical Center HospitalComment on above:Performed By: #### BMP #### [address] [place] [phone] Vice President Of Customer Service: Loreta Zelaya MDHemoglobin (Bld) [Mass/Vol]11.3 g/dLLow11.9-15.1 [facility] HospitalComment on above:Performed By: #### BMP #### [address] [place], [facility]83 Vice President Of Customer Service: Loreta Zelaya MDImmature granulocytes/100 WBC (Bld)1 %Vfgw4NchajKettering Health – Soin Medical CenterComment on above:Performed By: #### BMP #### [address] [place], [place] [address] Vice President Of Customer Service: Loreta Zelaya MDLymphocytes (Bld) [#/Vol]1.57 10*3/uLNormal 1.10-3.70[facility] Medical CenterComment on above:Performed By: #### BMP #### [address] [place] [address] Vice President Of Customer Service: Luciana Fraziermphocytes/100 WBC (Bld)45 %Tuyd11-62Dvmmv [facility] HospitalComment on above:Performed By: #### BMP #### [address] [place], [place] 0077283 Vice President Of Customer Service: MIGUELINA FrazierCH (RBC) [Entitic mass]33.0 ivTcnyrc19.2-33.5 [facility] HospitalComment on above:Performed By: #### BMP #### [address] [place], [place] [phone] Vice President Of Customer Service: KELLI FrazierC (RBC) [Mass/Vol]32.6 g/nYJvtfxc89.4-34.8[facility] HospitalComment on above:Performed By: #### BMP #### [address] [place], [place] 4419583 Vice President Of Customer Service: MIGUELINA FrazierCV (RBC) [Entitic vol]101.5 kLVkexie89.6-102.9 [facility] HospitalComment on above:Performed By: #### BMP #### [address] [place], [place] 9460683 Vice President Of Customer Service: MIGUELINA Frazieronocytes (Bld) [#/Vol]0.48 10*3/uLNormal0.10-1.20 [facility] CenterComment on above:Performed By: #### BMP #### [address] [place], [place] 8936883 Vice President Of Customer Service: MIGUELINA Frazieronocytes/100 WBC (Bld)14 %High3-12[facility] HospitalComment on above:Performed By: #### BMP #### [address] [place], [place] 6575983 Vice President Of Customer Service: Kandice Frazierophil (Seg)36 %Vibvyy70-09Vkhha [facility] HospitalComment on above:Performed By: #### BMP #### [address] [place], [place] 2281183 Vice President Of Customer Service: TYREL Frazier Automated0.0 per 100 WBCNormal0.0[facility] So[facility] Medical CenterComment on above:Performed By: #### BMP #### [address] [place], [place] 5473483 Vice President Of Customer Service: Jamel Fraziertegracia mean volume (Bld) [Entitic vol]10.1 fL Normal8.1-13.5[facility] Medical CenterComment on above:Performed By: #### BMP #### [address] [place], [place] 9909383 Vice President Of Customer Service: Jamel Fraziertezach (Bld) [#/Vol]219 10*3/xLDwruli715-609 [facility] HospitalComment on above:Performed By: #### BMP #### [address] [place] [address] Vice President Of Customer Service: SARA Frazier (Bld) [#/Vol]3.42 10*6/uLLow3.95-5.11[facility] HospitalComment on above:Performed By: #### BMP #### [address] [place], [place] 9616583 Vice President Of Customer Service: TSERING Frazier (Bld) [#/Vol]3.5 10*3/uLNormal3.5-11.3MSycamore Medical Center HospitalComment on above:Performed By: #### BMP #### [address] [place] [address] Vice President Of Customer Service: LILI FrazierA ABDOMEN PELVIS W CONTRASTon [id number] ABDOMEN PELVIS W CONTRASTEXAMINATION: CTA OF THE [...] Probable constipation. 5. Additional findings, as above. [facility] RIS CONSOLIDATEDEXAMINATION: CTA OF THE ABDOMEN [...] diffuse body wall edema. No acute fracture. [facility] Hosea Ernst MD - 10/17/2024 EXAMINATION: CTA [...] Probable constipation. 5. Additional findings, as above. [facility] HospitalRadiology Study observation (narrative)[facility] Care[facility] HospitalCTA Abdominal vessels and Pelvis vessels W contrast IVOrdered By: Hosea Martinez on 36-07-9188Pxx [facility] Work Phone: Comp Metabolic Pr/rfx MGon 14-35-1484Vydaukk [Mass/Vol]3.0 g/dLLow3.5-5.2[facility] HospitalComment on above:Performed By: #### BMP #### [facility] [address] [place] [address] Dr. [place], [place] [phone] Vice President Of Customer Service: Loreta Zelaya MDAlbumin/Glob Ratio1.7Obfroy9.0-2.5MerMercy Health St. [facility] Hospital HospitalComment on above:Performed By: #### BMP #### [address] [place] [address] Vice President Of Customer Service: Kumar Frazierline Begw596 U/KFufiha35-344Kdhpv [facility] HospitalComment on above:Performed By: #### BMP #### [address] [place] [address] Vice President Of Customer Service: Loreta Zelaya MDALT [Catalytic activity/Vol]34 U/OTtofkd67-73Kzruz [facility] HospitalComment on above:Performed By: #### BMP #### [address] [place] [address] Vice President Of Customer Service: Loreta Zelaya MDAnicedrick gap [Moles/Vol]8 mmol/LLow9-16[facility] HospitalComment on above:Performed By: #### BMP #### [address] [place] [address] Vice President Of Customer Service: Loreta Zelaya MDAST [Catalytic activity/Vol]28 U/MUydwlt68-68Mrwnh [facility] HospitalComment on above:Performed By: #### BMP #### [address] [place] [address] Vice President Of Customer Service: Loreta Zelaya MDBilirubin [Mass/Vol]mg/dLNormal0.00-1.20[facility] HospitalComment on above:Performed By: #### BMP #### [facility] [address] [place] [address] [place]. [place], [place] 3279383 Vice President Of Customer Service: Loreta Zelaya MDBUN/CRE Idvny54Rrvv5-81AthtvKettering Health – [facility] Center Comment on above:Performed By: #### BMP #### [facility] [address] [place] [address] Dr. [place], [place] 5010383 Vice President Of Customer Service: RUTH Frazieralcium [Mass/Vol]8.2 mg/dLLow8.6-10.4[facility] CenterComment on above:Performed By: #### BMP #### [address] [place], [place] 1429983 Vice President Of Customer Service: RUTH Frazierhloride [Moles/Vol]103 mmol/EObfhtb29-529Ylgvu [facility] HospitalComment on above:Performed By: #### BMP #### [facility] [address] [place] [address] [place] [place], [place] 3341383 Vice President Of Customer Service: Loreta Zelaya MDCO2 [Moles/Vol]26 mmol/XWowhdp73-26Lxnan [facility] HospitalComment on above:Performed By: #### BMP #### [address] [place], [place] 4559283 Vice President Of Customer Service: RUTH Frazierreatinine [Mass/Vol]0.4 mg/dLLow0.50-0.90[facility] Medical CenterComment on above:Performed By: #### BMP #### [facility] [address] [place] [address] [place] [address] Vice President Of Customer Service: Loreta Zelaya MDGFR/1.73 sq M.predicted among non-blacks MDRD (S/P/Bld) [Vol rate/Area]mL/min/{1.73_m2}Normal>60[facility] HospitalComment on above:Result Comment: These [...] renal tubular secretion.Performed By: #### BMP #### [address] [place], [place] 7709583 Vice President Of Customer Service: Loreta Zelaya MDGlucose [Mass/Vol]248 mg/nQCifl67-86Tepuv [facility] HospitalComment on above:Performed By: #### BMP #### [address] [place], [place] 0141483 Vice President Of Customer Service: SUZY Frazierotassium [Moles/Vol]3.8 mmol/LNormal3.7-5.3MSycamore Medical Center HospitalComment on above:Performed By: #### BMP #### [address] [place], [place] 6252683 Vice President Of Customer Service: Loreta Zelaya MDProtein [Mass/Vol]4.5 g/dLLow6.6-8.7[facility] HospitalComment on above:Performed By: #### BMP #### [address] [place], [place] 4800183 Vice President Of Customer Service: Loreta Zelaya MDSodium [Moles/Vol]137 mmol/SGicmcy092-463Sgdmk [facility] HospitalComment on above:Performed By: #### BMP #### [address] [place] [address] Vice President Of Customer Service: Loreta Zelaya MDUrea nitrogen [Mass/Vol]15 mg/dLNormal6-20[facility] HospitalComment on above:Performed By: #### BMP #### [address] [place], [place] 8168483 Vice President Of Customer Service: RUTH Frazieromprehensive Metabolic Panel w/ Reflex to MGon 85-35-7355Dyvjerb [Mass/Vol]3 g/dLLow3.5 - 5.2 g/dLBon [facility] Albumin/Globulin [Mass ratio]1.9 {ratio}1.0 - 2.5Bon Secdel[facility] MashupsALP [Catalytic activity/Vol]104 U/L35 - 104 U/LBon SecInland Northwest Behavioral HealthAnapa Biotech Newark HospitalALT [Catalytic activity/Vol]34 U/L10 - 35 U/LBon [facility] HospitalNomacorcAnion gap [Moles/Vol]8 mmol/LLow9 - 16 mmol/LBon SecInland Northwest Behavioral HealthAnapa Biotech HealthAST [Catalytic activity/Vol]28 U/L10 - 35 U/LBon [facility] MashupsBilirubin [Mass/Vol]mg/dL 0.00 - 1.20 mg/dLBon [facility] CenterNomacorcCalcium [Mass/Vol]8.2 mg/dLLow8.6 - 10.4 mg/dLBon [facility] CenterAnapa [facility]otech Newark HospitalChloride [Moles/Vol]103 mmol/L98 - 107 mmol/L Bon [facility] Differential DynamicsCO2 [Moles/Vol]26 mmol/L20 - 31 mmol/LBon [facility] CenterNomacorcCreatinine [Mass/Vol]0.4 mg/dLLow0.50 - 0.90 mg/dLBon [facility] Est, Glom Filt Rate- PINFBon Glenn Medical CenterNomacorcComment on above: These results are not intended [...] that affects renal tubular secretion. Glucose [Mass/Vol]248 mg/gSWhmt75 - 99 mg/dLBon [facility] CenterOfficial Limited Virtual Interpretation and review of laboratory resultsAbnormalBon [facility] Differential Dynamics Potassium [Moles/Vol]3.8 mmol/L3.7 - 5.3 mmol/LBon [facility] CenterOfficial Limited VirtualProtein [Mass/Vol]4.5 g/dLLow6.6 - 8.7 g/dLBon [facility] MashupsSodium [Moles/Vol]137 mmol/L136 - 145 mmol/LBon [facility] HospitalUrea nitrogen [Mass/Vol]15 mg/dL6 - 20 mg/dLBon [facility] Brent[facility] HospitalUrea nitrogen/Creatinine [Mass ratio]38 mg/mg High9 - 20Bon [facility] HospitalEKG 12 Leadon 00-78-2818Yyqevr Geuh92RFNVed [facility] HospitalP Bbsi51ripmagfJzjSentara Careplex HospitalP-R Tlzeubfr800 [facility] HospitalQ-T Ogvtiubm182 [facility] HospitalQRS Nnhpsjtj06 [facility] HospitalQTc Calculation (tt)459 [facility] HospitalR Dusd60ynzpycbWbfSentara Careplex HospitalT Ozae28quybjxnYlnCarilion Clinic St. Albans HospitalVentricular Rjes90VESMur [facility] HospitalNormal sinus rhythm Low voltage QRS Borderline ECG No previous ECGs available Confirmed by BECKY AVILA ([id number]) on 10/17/2024 9:32:24 [facility] Becky Avila MD - 10/17/2024 Normal sinus rhythm Low voltage QRS Borderline ECG No previous ECGs available Confirmed by BECKY AVILA ([id number]) on 10/17/2024 9:32:24 AM Bon [facility] HospitalEKG Rhythm Stripon 10-17-2024 [facility] SpringsGlucose, Whole Bloodon 69-42-1232Phsblby [Mass/Vol]119 mg/sJQfyl87 - 100 mg/dLBon [facility] HospitalInterpretation and review of laboratory resultsAbnormPage Memorial HospitalGlucose [Mass/Vol]119 mg/uSBrap38-900WcpceKettering Health – Soin Medical CenterGlucose [Mass/Vol]191 mg/dL High74 - 100 mg/dLBon [facility] HospitalInterpretation and review of laboratory resultsAbnoVeterans Affairs Black Hills [facility] Care System Glucose [Mass/Vol]191 mg/rPOznd67-079OeqqsKettering Health – Soin Medical CenterGlucose [Mass/Vol]111 mg/rBBaxg53 - 100 mg/dLBon [facility] HospitalInterpretation and review of laboratory resultsAbnoVeterans Affairs Black Hills Health Care System Glucose [Mass/Vol]111 mg/dUEpba58-537SziniKettering Health – Soin Medical CenterGlucose [Mass/Vol]172 mg/zGNzzd60 - 100 mg/dLBon [facility] HospitalInterpretation and review of laboratory resultsAbnoVeterans Affairs Black Hills Health Care System Glucose [Mass/Vol]172 mg/fVNfox43-445FrpufKettering Health – Soin Medical CenterGlucose [Mass/Vol]402 mg/vHFbnq34 - 100 mg/dLBon [facility] HospitalInterpretation and review of laboratory resultsAbnoVeterans Affairs Black Hills Health Care System Glucose [Mass/Vol]402 mg/yHFyyo32-241VbmysKettering Health – Soin Medical CenterHemoglobin A1Con 07-95-3077Chlyvwv glucose Estimated from glycated hemoglobin (Bld) [Mass/Vol]364 mg/dLBon [facility] HospitalComment on above:The ADA and AACC recommend providing the estimated average glucose result to permit better patient understanding of their HBA1c result. HbA1c (Bld) [Mass fraction]14.3 %High4.0 - 6.0 %[facility] Interpretation and review of laboratory resultsAbAvera Heart Hospital of South Dakota - Sioux FallsGlucose [Mass/Vol]364 mg/dLNoRegency Hospital Cleveland East Comment on above:Result Comment: The ADA and AACC recommend providing the estimated average glucose result to permit better patient understanding of their HBA1c result.Performed By: #### CDP #### [facility] [address] [place] [address] [place] [address] Vice President Of Customer Service: Loreta Zelaya MDHbA1c (Bld) [Mass fraction]14.3 %High4.0-6.0[facility] on above:Performed By: #### CDP #### [facility] [address] [place] [address] [place] [address] Vice President Of Customer Service: Loreta Zelaya MDOsmolality, Urineon 90-09-3449Vuquqavscl (U) [Osmolality]476 mosm/kgTwin County Regional Healthcare Osmolality - Nxpop524 mOsm/qqFrcjjb60-8615HrsdbKettering Health – Soin Medical CenterComment on above: Performed By: #### UOSMO #### [facility] [address] [place] [address] Vice President Of Customer Service: Gee Royal MD #### URNA #### [facility] [address] [place] [address] Vice President Of Customer Service: SUZY Frazierrotein / creatinine ratio, urineon 10-17-2024 Creatinine (U) [Mass/Vol]43.9 mg/dL28.0 - 217.0 mg/dLBSouthampton Memorial Hospital Interpretation and review of laboratory resultsAbnoCentra [facility] Protein (U) [Mass/Vol]10 mg/dLBSouthampton Memorial HospitalComment on above:No normal range established.Urine Total Protein Creatinine Ratio0.97Pclr6.00 - 0.20T[facility] County Regional HealthcareProtein,Tot,[place] Uron 10-17-2024 Creatinine [Mass/Vol]43.9 mg/uBTvfulh53.0-217.0[facility] CenterComment on above:Performed By: #### CDP #### [address] [place], [place] 1418483 Vice President Of Customer Service: Loreta Zelaya MDTot Prot. Conc.10 mg/dLCity Hospital Comment on above:Result Comment: No normal range established.Performed By: #### CDP #### [facility] [address] [place], [place] 3693783 Vice President Of Customer Service: Loreta Zelaya MDTP/Cre Ratio0.34Steu1.00-0.20[facility] Comment on above:Performed By: #### CDP #### [facility] [address] [place] [address] Vice President Of Customer Service: QUAN Frazierodium, Random Uron 65-35-8053Uooimy (U) [Moles/Vol]30 mmol/LNormalBon [facility] HospitalComment on above:No normal range established.Result Comment: No normal range established.Performed By: #### UOSMO #### [facility] [address] [facility] [place] [address] Vice President Of Customer Service: Gee Royal MD #### URNA #### [facility] [address] [place] [address] [place], [place] 0513183 Vice President Of Customer Service: QUAN Frazierodium, urine, randomon 39-90-9179Eny [facility] HospitalUrinalysis w/ Microon 95-10-8605Agmqqopw4+AbnormalNONEMercy Day Kimball HospitalComment on above:Performed By: #### BMP #### [address] [place], [place] 6922983 Vice President Of Customer Service: Kameron Frazierirubin, SemiQt,UrNegativeNormalNEGKettering Health – Soin Medical CenterComment on above:Performed By: #### BMP #### [address] [place], [place] 9462483 Vice President Of Customer Service: Lillian Frazier, UrineNegativeNormalNEGKettering Health – Soin Medical Center Comment on above:Performed By: #### BMP #### [facility] [address] [place] [address] Dr[address] [place], [facility]83 Vice President Of Customer Service: Rafi Frazierrity (ClearNormalCLEARKettering Health – Soin Medical Center Comment on above:Performed By: #### BMP #### [facility] [address] [place] [address] [place] [place], [place] [phone] Vice President Of Customer Service: RUTH Frazierolor (YellowNoalYMorrow County Hospital Comment on above:Performed By: #### BMP #### [facility] [address] [place] [address] [place], [place] 2368783 Vice President Of Customer Service: Loreta Zelaya MDEpithelial cells LM Ql (Urine sed)5 TO 10Normal 0-25[facility] HospitalComment on above:Performed By: #### BMP #### [facility] [address] [place] [address] [place] [place], [place] 5918783 Vice President Of Customer Service: Loreta Zelaya MDGlucose Ql (U)3+ mg/dLAbnormalNEGLakehealth Tripoint Medical Center HospitalComment on above:Performed By: #### BMP #### [facility] [address] [place] [address] Vice President Of Customer Service: Loreta Zelaya MDKetones Ql (U)NegativeNormalNEGKettering Health – Soin Medical CenterComment on above:Performed By: #### BMP #### [address] [place], [place] 2815183 Vice President Of Customer Service: Loreta Zelaya MDLeukocyte esterase Test strip Ql (U)NegativeNormal NEGKettering Health – Soin Medical CenterComment on above:Performed By: #### BMP #### [facility] [address] [place] [address] [place] [address] Vice President Of Customer Service: Loreta Zelaya MDNitrite,UrNegativeNormalNEGKettering Health – [facility] Medical Center Comment on above:Performed By: #### BMP #### [facility] [address] [place] [address] [place], [place] 8752583 Vice President Of Customer Service: SUZY Frazier,Ur6.1Xzyufc0.0-9.0[facility] Medical CenterComment on above:Performed By: #### BMP #### [facility] [address] [place], [place] 3800783 Vice President Of Customer Service: SUZY Frazierrotein Ql (U)NegativeNormalNEGKettering Health – Soin Medical CenterComment on above:Performed By: #### BMP #### [facility] [address] [place] [address] Dr[address] [place], [place] [id number] Vice President Of Customer Service: QUAN Frazierpec. Brenham,Ur1.318Ahbpnc5.010-1.020[facility] Soin Medical CenterComment on above:Performed By: #### BMP #### [facility] [address] [place], [place] [address]83 Vice President Of Customer Service: Tawny Frazier RBC's0 TO 3Uweriu4-7EsvqvWestern Reserve Hospital Comment on above:Performed By: #### BMP #### [facility] [address] [place], [facility]83 Vice President Of Customer Service: Tawny Frazier WBC's2 TO 4Ixifae4-0ZjnvcKettering Health – [facility] Comment on above:Performed By: #### BMP #### [facility] [address] [place] [address] [place] [address] Vice President Of Customer Service: Loreta Zelaya MDUrobilinogen,UrNormalNormal0.0-1.0[facility] Soin Medical CenterComment on above:Performed By: #### BMP #### [facility] [address] [place] [address] [place] [address] Vice President Of Customer Service: Loreta Zelaya MDYeastPRESENCE NOTEDAbnormalNONEMeGreenwich HospitalComment on above:Performed By: #### BMP #### [facility] [address] [place] [address] Dr. [place], [facility]83 Vice President Of Customer Service: Loreta Zelaya MDUrinalysis with Microscopicon [id number] LM Ql (Urine sed)2+AbnormalNoneBon Secours Mercy HealthBilirubin Ql (U)Negative NEGATIVEBon Secours [facility]cy HealthClarity (U)ClearClearBon Secours [facility] Hospitaly Health Color (U)YellowYellowBon Secours [facility] Hospitaly HealthEpithelial cells LM.HPF (Urine sed) [#/Area]5 TO 10Bon [facility] Hospitaly HealthGlucose Test strip (U) [Mass/Vol]3+ AbnormalNEGATIVE mg/dLBon Secours [facility] Hospitaly HealthHemoglobin Auto test strip Ql (U) NegativeNEGATIVEBon Secours [facility] HealthInterpretation and review of laboratory resultsAbnormalBon Secours [facility] HealthKetones (U) [Mass/Vol]NegativeNEGATIVE mg/dLBon Secours Children'S Hospital For RehabilitationLeukocyte esterase Test strip Ql (U)Negative NEGATIVEBon [facility] HealthNitrite Ql (U)NegativeNEGATIVEBon Secours [facility] Hospitaly HealthpH (U)6 [pH]5.0 - 9.0Bon [facility] Hospitaly HealthProtein (U) [Mass/Vol] NegativeNEGATIVE mg/dLBon Secours [facility] HealthRBC LM.HPF (Urine sed) [#/Area]0 TO 2[facility] HealthSpecific gravity (U) [Rel density]1.011.010 - 1.020 [facility] HospitalUrobilinogen Qn (U)Normal0.0 - 1.0 EU/dLBon Secours Children'S Hospital For RehabilitationWBC LM.HPF (Urine sed) [#/Area]2 TO 5[facility] HealthYeast LM Ql (Urine sed)PRESENCE NOTEDAbnormalNoneBon SecOsceola Ladd Memorial Medical CenterBrain Natri. Peptideon 81-24-2560Kpyqvkzetth peptide B (Bld) [Mass/Vol]299 pg/mLHigh0-125K[facility] Soin Medical CenterComment on above:Performed By: #### CDP #### [facility] [address] [place] [address] [place] [address] Vice President Of Customer Service: Loreta Zelaya MDBrain Natriuretic Peptideon 18-80-5384Xmgkqolskey peptide B (Bld) [Mass/Vol]299 pg/mLHigh0 - 125 pg/mLBon [facility] & Brentwood HospitalCBC with Auto Differentialon 57-62-7480Vfmbapppp (Bld) [#/Vol]0.05 10*3/uLBon Secours Children'S Hospital For RehabilitationBasophils/100 WBC (Bld)1 %0 - 2 %[facility] Eosinophils (Bld) [#/Vol]0.12 10*3/uLBon Secours Children'S Hospital For RehabilitationEosinophils/100 WBC (Bld)3 %1 - 4 %[facility] HealthErythrocyte distribution width (RBC) [Ratio]13.3 %11.8 - 14.4 %Bon [facility] Brentwood HospitalHematocrit (Bld) [Volume fraction]35.7 %Low36.3 - 47.1 %[facility] Hospitaly HealthHemoglobin (Bld) [Mass/Vol]11.7 g/dLLow11.9 - 15.1 g/dLBon Secours [facility] Hospitaly HealthImmature granulocytes (Bld) [#/Vol][facility] HealthImmature granulocytes/100 WBC (Bld)0 %0[facility] Hospitaly HealthInterpretation and review of laboratory results AbnormalBon Secours [facility] HealthLymphocytes/100 WBC (Bld)34 %24 - 43 %[facility] HealthLymphocytes/100 WBC (Bld)1.57 %Bon SecSelect Medical Specialty Hospital - Cleveland-FairhillH (RBC) [Entitic mass]33.5 pg25.2 - 33.5 pgBon Secours Licking Memorial HospitalHC (RBC) [Mass/Vol]32.8 g/dL28.4 - 34.8 g/dLBon SecSelect Medical Cleveland Clinic Rehabilitation Hospital, BeachwoodMCV (RBC) [Entitic vol]102.3 fL82.6 - 102.9 fLBon Secours [facility] Community Hospitaly HealthMonocytes/100 WBC (Bld)12 %3 - 12 %[facility] Hospitaly HealthMonocytes/100 WBC (Bld)0.55 %[facility] Hospitaly HealthNeutrophils/100 WBC (Bld)50 %36 - 65 %[facility] Hospitaly HealthNucleated RBC/100 WBC (Bld) [Ratio]0 %0.0 per 100 WBCBon Secours Wvumedicine Harrison Community Hospitaly HealthPlatelet mean volume (Bld) [Entitic vol]10.4 fL8.1 - 13.5 fLBon Secours Wvumedicine Harrison Community Hospitaly HealthPlatelets (Bld) [#/Vol]238 10*3/uLBon Secours [facility] Community Hospitaly HealthRBC (Bld) [#/Vol]3.49 10*6/uLLow 3.95 - 5.11 m/uLBon Secours [facility] Community Hospitaly HealthSegmented neutrophils/100 WBC (Bld)2.37 %[facility] Hospitaly HealthWBC other (Bld) [#/Vol]4.7Bon [facility] Hospitaly HealthBon SecWinn Parish Medical Center HealthCBC with Diffon [id number]. Basophil0.05 k/uLNormal 0.00-0.20[facility] Ridge HospitalComment on above:Performed By: #### CDP #### [address] [place], [place] [address] Vice President Of Customer Service: MDAbs. KarinImm.Granulocyte<0.31Klpamw3.00-0.30MerMercy Health St. Charles Hospital HospitalComment on above:Performed By: #### CDP #### [address] [place] [address] Vice President Of Customer Service: Marie Frazier.Neutrophil (Seg)2.37 k/uLNormal1.50-8.10MerMercy Health St. Charles Hospital HospitalComment on above:Performed By: #### CDP #### [address] [place] [address] Vice President Of Customer Service: Loreta Zelaya MDBasophils/100 WBC (Bld)1 %Normal0-2[facility] Ridge HospitalComment on above:Performed By: #### CDP #### [address] [place] [address] Vice President Of Customer Service: Loreta Zelaya MDEosinophils (Bld) [#/Vol]0.12 10*3/uLNormal 0.00-0.44MerMercy Health St. Charles Hospital HospitalComment on above:Performed By: #### CDP #### [address] [place] [address] Vice President Of Customer Service: FARIBA Frazierosinophils/100 WBC (Bld)3 %Normal1-4MerMercy Health St. Charles Hospital HospitalComment on above:Performed By: #### CDP #### [address] [place] [address] Vice President Of Customer Service: Loreta Zelaya MDErythrocyte distribution width (RBC) [Ratio]13.3 % Wckzts44.8-14.4MerMercy Health St. Charles Hospital HospitalComment on above:Performed By: #### CDP #### [address] [place] [phone] Vice President Of Customer Service: Loreta Zelaya MDHematocrit (Bld) [Volume fraction]35.7 %Low 36.3-47.1MWestern Reserve HospitalComment on above:Performed By: #### CDP #### [address] [place] [address] Vice President Of Customer Service: Loreta Zelaya MDHemoglobin (Bld) [Mass/Vol]11.7 g/dLLow11.9-15.1 [facility] Soin Medical CenterComment on above:Performed By: #### CDP #### [address] [place] [address] Vice President Of Customer Service: Loreta Zelaya MDImmature granulocytes/100 WBC (Bld)0 %Brvhkd0Jtjmc Tiffin HospitalComment on above:Performed By: #### CDP #### [address] [place], [facility]83 Vice President Of Customer Service: Loreta Zelaya MDLymphocytes (Bld) [#/Vol]1.57 10*3/uLNormal 1.10-3.70[facility] Soin Medical CenterComment on above:Performed By: #### CDP #### [address] [place], [facility]83 Vice President Of Customer Service: Luciana Fraziermphocytes/100 WBC (Bld)34 %Sekaup38-44Nwbdg [facility]iffin HospitalComment on above:Performed By: #### CDP #### [address] [place] [address] Vice President Of Customer Service: KELLI Frazier (RBC) [Entitic mass]33.5 odQxwkwr46.2-33.5 [facility] HospitalComment on above:Performed By: #### CDP #### [address] [place], [facility]83 Vice President Of Customer Service: Loreta Sturtz, MDMCHC (RBC) [Mass/Vol]32.8 g/uWNfjkyi87.4-34.8[facility] HospitalComment on above:Performed By: #### CDP #### [address] [place] [address] Vice President Of Customer Service: MIGUELINA FrazierCV (RBC) [Entitic vol]102.3 xBUuseat93.6-102.9 [facility] HospitalComment on above:Performed By: #### CDP #### [address] [place] [address] Vice President Of Customer Service: MIGUELINA Frazieronocytes (Bld) [#/Vol]0.55 10*3/uLNormal0.10-1.20 [facility] HospitalComment on above:Performed By: #### CDP #### [address] [place], [facility]83 Vice President Of Customer Service: MIGUELINA Frazieronocytes/100 WBC (Bld)12 %Normal3-12[facility] Soin Medical CenterComment on above:Performed By: #### CDP #### [address] [place] [address] Vice President Of Customer Service: Loreta Zelaya MDNeutrophil (Seg)50 %Bvqnha32-45JyshhKettering Health – Soin Medical CenterComment on above:Performed By: #### CDP #### [address] [place], [facility]83 Vice President Of Customer Service: Loreta Zelaya MDNRBC Automated0.0 per 100 WBCNormal0.0[facility] HospitalComment on above:Performed By: #### CDP #### [address] [place], [place] 69[address]83 Vice President Of Customer Service: Loreta Zelaya MDPlatelet mean volume (Bld) [Entitic vol]10.4 fL Normal8.1-13.5[facility] HospitalComment on above:Performed By: #### CDP #### [facility] [address] [place], [place] [address]83 Vice President Of Customer Service: Luna Frazier ([facility]) [#/Vol]238 10*3/fJYkdsln544-652 [facility] HospitalComment on above:Performed By: #### CDP #### [facility] [address] [place], [place] 6939383 Vice President Of Customer Service: KEYLA FrazierBC ([facility]) [#/Vol]3.49 10*6/uLLow3.95-5.11[facility] Centercy Pleasant Ridge HospitalComment on above:Performed By: #### CDP #### [facility] [address] [place], [place] 450[address]83 Vice President Of Customer Service: TSERING Frazier ([facility]) [#/Vol]4.7 10*3/uLNormal3.5-11.3MSycamore Medical Center HospitalComment on above:Performed By: #### CDP #### [facility] [address] [place] [address] Vice President Of Customer Service: RUTH Fraziercedrick 61-05-3936Ieahnxs [Mass/Vol]3.3 g/dLLow3.5 - 5.2 g/dLBon [facility] HospitalAlbumin/Globulin [Mass ratio]1.8 {ratio}1.0 - 2.5Bon [facility] HospitalALP [Catalytic activity/Vol]153 U/LHigh35 - 104 U/L [facility] HospitalALT [Catalytic activity/Vol]49 U/LHigh10 - 35 U/LBon [facility] HospitalAnion gap [Moles/Vol]9 mmol/L9 - 16 mmol/LBon [facility] HealthAST [Catalytic activity/Vol]56 U/LHigh10 - 35 U/LBon [facility] Bilirubin [Mass/Vol]mg/dL0.00 - 1.20 mg/dLBon [facility] HospitalCalcium [Mass/Vol]8.4 mg/dLLow8.6 - 10.4 mg/dLBon [facility] HealthChloride [Moles/Vol]96 mmol/LLow98 - 107 mmol/LBon [facility] HospitalCO2 [Moles/Vol]25 mmol/L20 - 31 mmol/LBon [facility] HospitalCreatinine [Mass/Vol]0.8 mg/dL0.50 - 0.90 mg/dLBon [facility] Brentwood HospitalEst, Glom Filt Rate85- PINFBon [facility] on above: These results are not [...] Glucose [Mass/Vol]567 mg/dLCritically high74 - 99 mg/dLBon [facility] Potassium [Moles/Vol]4.5 mmol/L3.7 - 5.3 mmol/LBon [facility] on above:Specimen hemolysis has exceeded the interference as defined by Kat. Value may be falsely increased. Suggest recollection if clinically indicated. Protein [Mass/Vol]5.2 g/dLLow6.6 - 8.7 g/dLBon [facility] HospitalSodium [Moles/Vol]130 mmol/DQcv951 - 145 mmol/LBon [facility] HospitalUrea nitrogen [Mass/Vol]22 mg/dLHigh6 - 20 mg/dLBon [facility] & Brentwood HospitalUrea nitrogen/Creatinine [Mass ratio]28 mg/mgHigh9 - 20Bon [facility] Medical Centerp Metabolic Profon 88-18-4651Phuifxc [Mass/Vol]3.3 g/dLLow3.5-5.2[facility] on above:Performed By: #### INSU #### [facility] [address] [place] [address] Vice President Of Customer Service: Gee Royal MD [facility] [address] [place] [address] Vice President Of Customer Service: Loreta Zelaya MD #### CPEP #### [address] [address] Vice President Of Customer Service: Gee Royal MDAlbumin/Glob Ratio1.2Migyoi0.0-2.5[facility] Soin Medical CenterComascension river district hospital on above:Performed By: #### INSU #### [address] [address] Vice President Of Customer Service: Gee Royal MD [address] [place], [place] 865[address]83 Vice President Of Customer Service: Loreta Zelaya MD #### CPEP #### [address] [address] Vice President Of Customer Service: Kumar Pinedaline Acbb910 U/ODwvu87-129VumumKettering Health – Soin Medical CenterComascension river district hospital on above:Performed By: #### INSU #### [address] [address] Vice President Of Customer Service: Gee Royal MD [address] [place], [facility]83 Vice President Of Customer Service: Loreta Zelaya MD #### CPEP #### [address] [address] Vice President Of Customer Service: Gee Royal MDALT [Catalytic activity/Vol]49 U/YWlii22-17LmujsKettering Health – Soin Medical CenterComascension river district hospital on above:Performed By: #### INSU #### [address] [address] Vice President Of Customer Service: Gee Royal MD [address] [place], [facility]83 Vice President Of Customer Service: Loreta Zelaya MD #### CPEP #### [address] [address] Vice President Of Customer Service: Hetal Pineda gap [Moles/Vol]9 mmol/LNormal9-16[facility]in Medical CenterComment on above:Performed By: #### INSU #### [address] [address] Vice President Of Customer Service: Gee Royal MD [address] [place], [place] 1547883 Vice President Of Customer Service: Loreta Zelaya MD #### CPEP #### [address] [address] Vice President Of Customer Service: Gee Royal MDAST [Catalytic activity/Vol]56 U/LGqmn36-71IrifkKettering Health – Soin Medical CenterComment on above:Performed By: #### INSU #### [address] [address] Vice President Of Customer Service: Gee Royal MD [address] [place] [address] Vice President Of Customer Service: Loreta Zelaya MD #### CPEP #### [address] [address] Vice President Of Customer Service: Gee Royal MDBilirubin [Mass/Vol]mg/dLNormal0.00-1.20[facility] Medical CenterComment on above:Performed By: #### INSU #### [address] [address] Vice President Of Customer Service: Gee Royal MD [facility] [address] [place] [address] Dr. [place] [phone] Vice President Of Customer Service: Loreta Zelaya MD #### CPEP #### [address] [address] Vice President Of Customer Service: Gee Royal MDBUN/CRE Cqoer46Ewpi0-67ZxjapKettering Health – Soin Medical Center Comment on above:Performed By: #### INSU #### [address] [address] Vice President Of Customer Service: Gee Royal MD [address] [place], [place] 9072183 Vice President Of Customer Service: Loreta Zelaya MD #### CPEP #### [address] [address] Vice President Of Customer Service: RUTH Pinedaalcium [Mass/Vol]8.4 mg/dLLow8.6-10.4[facility] Medical CenterComment on above:Performed By: #### INSU #### [address] [address] Vice President Of Customer Service: Gee Royal MD [address] [place], [place] 4832883 Vice President Of Customer Service: Loreta Zelaya MD #### CPEP #### [address] [address] Vice President Of Customer Service: RUTH Pinedahloride [Moles/Vol]96 mmol/OUvt13-529AgsmmKettering Health – Soin Medical CenterComment on above:Performed By: #### INSU #### [address] [address] Vice President Of Customer Service: Gee Royal MD [address] [place], [place] 4936683 Vice President Of Customer Service: Loreta Zelaya MD #### CPEP #### [address] [address] Vice President Of Customer Service: RUTH PinedaO2 [Moles/Vol]25 mmol/FPollgn17-99IylpbKettering Health – Soin Medical CenterComment on above:Performed By: #### INSU #### [address] [address] Vice President Of Customer Service: Gee Royal MD [address] [place], [place] 3150483 Vice President Of Customer Service: Loreta Zelaya MD #### CPEP #### [address] [address] Vice President Of Customer Service: RUTH Pinedareatinine [Mass/Vol]0.8 mg/dLNormal0.50-0.90 [facility] Medical CenterComment on above:Performed By: #### INSU #### [address] [address] Vice President Of Customer Service: Gee Royal MD [address] [place], [place] 2317383 Vice President Of Customer Service: Loreta Zelaya MD #### CPEP #### [address] [address] Vice President Of Customer Service: Gee Royal MDGFR/1.73 sq M.predicted among non-blacks MDRD (S/P/Bld) [Vol rate/Area]85 mL/min/{1.73_m2}Normal>60[facility] Comment on above:Result Comment: These results are [...] renal tubular secretion.Performed By: #### INSU #### [address] [address] Vice President Of Customer Service: Gee Royal MD [address] [place], [place] 4649783 Vice President Of Customer Service: Loreta Zelaya MD #### CPEP #### [address] [address] Vice President Of Customer Service: Gee Royal MDGlucose [Mass/Vol]567 mg/dLCritically arne71-72 [facility] Medical CenterComment on above:Performed By: #### INSU #### [address] [address] Vice President Of Customer Service: Gee Royal MD [address] [place], [place] 8478683 Vice President Of Customer Service: Loreta Zelaya MD #### CPEP #### [address] [address] Vice President Of Customer Service: Gee Royal MDPotassium [Moles/Vol]4.5 mmol/LNormal3.7-5.3 [facility] Medical CenterComment on above:Result Comment: Specimen hemolysis has exceeded the interference as defined by Kat. Value may be falsely increased. Suggest recollection if clinically indicated.Performed By: #### INSU #### [address] [address] Vice President Of Customer Service: Gee Royal MD [address] [place] [phone] Vice President Of Customer Service: Loreta Zelaya MD #### CPEP #### [address] [address] Vice President Of Customer Service: Gee Royal MDProtein [Mass/Vol]5.2 g/dLLow6.6-8.7[facility] Medical CenterComment on above:Performed By: #### INSU #### [address] [address] Vice President Of Customer Service: Gee Royal MD [address] [place] [phone] Vice President Of Customer Service: Loreta Zelaya MD #### CPEP #### [address] [address] Vice President Of Customer Service: Gee Royal MDSodium [Moles/Vol]130 mmol/MHob697-236SlphtKettering Health – Soin Medical CenterComment on above:Performed By: #### INSU #### [address] [address] Vice President Of Customer Service: Gee Royal MD [address] [place] [phone] Vice President Of Customer Service: Loreta Zelaya MD #### CPEP #### [facility] [address] [place], [place] 5425[address] Vice President Of Customer Service: Gee Royal MDUrea nitrogen [Mass/Vol]22 mg/dLHigh6-20[facility] CenterComment on above:Performed By: #### INSU #### [facility] [address] [place] [address] Vice President Of Customer Service: Gee Royal MD [facility] [address] [place] [address] [place]. [place], [place] [phone] Vice President Of Customer Service: Loreta Zelaya MD #### CPEP #### [facility] [address] [place], [place] [address] Vice President Of Customer Service: Gee Royal MDGlucose, Whole Bloodon 89-79-4386Oqxvdzj [Mass/Vol]564 mg/dLCritically high74 - 100 mg/dLBon [facility] Interpretation and review of laboratory resultsAbnoDakota Plains Surgical CenterGlucose [Mass/Vol]564 mg/dLCritically xbiw02-394OiaemKettering Health – Soin Medical CenterMagnesiumon 44-99-9073Hlufhqkca [Mass/Vol]2 mg/dL1.6 - 2.6 mg/dL [facility] HealthcareMagnesium [Mass/Vol]2.0 mg/dL Normal1.6-2.6MWestern Reserve HospitalComment on above:Performed By: #### CDP #### [facility] [address] [place], [place] 9936783 Vice President Of Customer Service: Loreta Zelaya MDNo Panel Informationon 83-59-3847Khmmlmxgizmvcf and review of laboratory resultsAbSpearfish Regional HospitalTroponinon 06-15-3361Emvonsgb I.cardiac High sensitivity method [Mass/Vol]ng/L0 - 14 ng/LBon [facility] & Brentwood HospitalComment on above:High Sensitivity Troponin values cannot be compared with other Troponin methodologies.Troponin, High Sens<1Faavgf3-47KtnhfKettering Health – Soin Medical CenterComment on above:Result Comment: High Sensitivity Troponin values cannot be compared with other Troponin methodologies.Performed By: #### INSU #### [facility] [address] [place] [address] Vice President Of Customer Service: Gee Royal MD [facility] [address] [place], [place] 3018[address] Vice President Of Customer Service: Loreta Zelaya MD #### CPEP #### [facility] [address] [place] [address] Vice President Of Customer Service: Gee Royal MDLAWRENCE+MEMORIAL [facility] METABOLIC PANLon 08-61-8311Rptrr gap [Moles/Vol]18 mmol/LHigh5-15ProMediMcKitrick Hospital HospitalComment on above:Performed By: #### TRISTAN, 6-3, 3023-7 #### [facility] ([id number]) [address], [address] [place], [place] [address]Wwdprqs [Mass/Vol]9.0 mg/dLNormal8.5-10.5[facility] HospitalComment on above:Performed By: #### TRISTAN, 3015-3, 3023-7 #### [facility] ([id number]) [address], [address] [place], [place] [address]Rabqipav [Moles/Vol]101 mmol/ZQwsnow13-746BdtFxvngm [place] HospitalComment on above:Performed By: #### TRISTAN, 6-3, 3023-7 #### [facility] ([id number]) [address], [address] [place], [place] [address]IV5 [Moles/Vol]15 mmol/RVpk82-76PxuCpbwpw [place] HospitalComment on above:Performed By: #### TRISTAN, 6-3, 302-7 #### [facility] ([id number]) [address], [address] [place], [place] [address]Qyurhdfazy [Mass/Vol]0.52 mg/dLNormal0.40-1.00[facility] HospitalComment on above:Result Comment: METHOD TRACEABLE TO IDMS STANDARD Performed By: #### TRISTAN, 3, 3024-01 #### [facility] ([id number]) [address], [address] [place], [place] [address]sKZV (CKD-EPI) NON-RACE DEPENDENT>90Normal>59[facility] [place] HospitalComment on above:Result Comment: Reported eGFR is based on the CKD-EPI 2020 equation that does not use a race coefficient.Performed By: #### TRISTAN, 3015-09, 3024-01 #### [facility] ([id number]) [address], [facility] [address] [place], [place] [address]Zolzydo [Mass/Vol]321 mg/iKGyhz74-94DnaTwojse [facility] Comment on above:Performed By: #### TRISTAN, 3015-09, 3024-01 #### [facility] ([id number]) [address] [address] [place], [place] [address]Jsrrckaql [Moles/Vol]4.3 mmol/LNormal3.5-5.0ProFlower Hospitalca Los Angeles HospitalComment on above:Performed By: #### TRISTAN, 3015-09, 7 #### [facility] ([id number]) [address], [facility] [address] [place], [place] [address]Mbblqd [Moles/Vol]134 mmol/YGwfmao397-541EhrUogeqa Landa HospitalComment on above:Performed By: #### TRISTAN, 3, 7 #### [facility] ([id number]) [address], [facility] [address] [place], [place] [address]Zccz nitrogen [Mass/Vol]15 mg/dLNormal5-23ProMedica Landa HospitalComment on above:Performed By: #### TRISTAN, 3015-09, 3023- #### [facility] ([id number]) [address] [facility], [address] [place], [place] [address]Yorpk Metabolic Panelon 44-27-4996Mzemi gap [Moles/Vol]18 mmol/L High5 - 15 mmol/LProMedica Health SystemCalcium [Mass/Vol]9.0 mg/dL8.5 - 10.5 mg/dLProMedical Center Barbour Health SystemChloride [Moles/Vol]101 mmol/L98 - 109 mmol/L ProMedica Health SystemCO2 [Moles/Vol]15 mmol/LLow22 - 32 mmol/LProMedica Health SystemCreatinine [Mass/Vol]0.52 mg/dL0.40 - 1.00 mg/dLKettering Memorial Hospital Comment on above:METHOD TRACEABLE TO IDME STANDARDeGFR (CKD-EPI)non-race dependent- Bath Community HospitalComment on above: Reported eGFR is based on the CKD-EPI 2020 equation that does not use a race coefficient. Glucose [Mass/Vol]321 mg/xEMtif79 - 99 mg/dLKettering Memorial Hospital Interpretation and review of laboratory resultsAbnoWellSpan Surgery & Rehabilitation Hospital System Potassium [Moles/Vol]4.3 mmol/L3.5 - 5.0 mmol/LProMedica Health SystemSodium [Moles/Vol]134 mmol/L134 - 146 mmol/LPrLake Regional Health Systemica Health SystemUrea nitrogen [Mass/Vol]15 mg/dL5 - 23 mg/dLKettering Memorial HospitalProSelect Medical [facility] SystemFREE T4on 60-69-0034Uccw T4 [Mass/Vol]0.56 ng/dLLow0.61-1.60Mer[facility]rbana HospitalComment on above:Performed By: #### BMP, 3016-3, 3024-7 #### [facility] ([id number]) [address] [facility], [address] [place], [place] [address]Ovzl T4 [Mass/Vol]on 71-69-6438Ftbyleuctvixyl and review of laboratory resultsAbnoWellSpan Surgery & Rehabilitation Hospital SystemAdena Health System SystemT4, free on 65-86-2406Ifkf T4 [Mass/Vol]0.56 ng/dLLow0.61 - 1.60 ng/dLKettering Memorial HospitalTSHon 47-68-3934PPH Qn9.36 m[IU]/LHighBetsy Johnson Regional Hospital Qnon 55-59-3344Sqzshvxaffaqqa and review of laboratory resultsAbnormalTitusville Area HospitalTSH9.36 uIU/mLHigh0.49-4.67Mer[facility] Urbana HospitalComment on above:Performed By: #### TRISTAN, 3016-3, 3024-7 #### [facility] ([id number]) [address] [facility], [address] [place], [place] [address]R peptide [Mass/Vol]on 09-01-2023 PEPTIDE1.10 ng/mLNormal 0.81-3.85Mer[facility] Health Urbana HospitalComment on above:Result Comment: NOTE Test Performed By: [place] [address] Mail Messenger Contractor: Judson Reese III, M.D. [facility] #[id number] - ALBUMIN:CREATININE URINE RATIOon 09-01-2023 ALB/CREAT RATIONOT CALCULATEDNormal0.0-30.0Mer[facility] Health Urbana HospitalComment on above:Result Comment: Result for Albumin/Creatinine Ratio cannot be reliably calculated because urine albumin and or urine creatinine is below the detection limit of the assay.Performed By: #### JESUS #### [facility] ([id number]) [address] [facility], [address] [place], [place] [address]Wsrwgfw DL <= 20 mg/L (U) [Mass/Vol]mg/dLNormal0.0-1.9K[facility] HospitalComment on above:Performed By: #### JESUS #### [facility] ([id number]) [address] [facility], [address] [place], [place] [address]TQJCT CREAT12.23 mg/dLNormalMercy Health Urbana HospitalComment on above:Performed By: #### JESUS #### [facility] ([id number]) [address] [facility] [address], [address] [place], [place] [address]Jqcirxbprvgx - Albumin: Creatinine Urine Ratioon 09-01-2023 Albumin/Creatinine DL <= 1.0 mg/L (U) [Ratio]NOT CALCULATEDKettering Memorial HospitalComment on above: Result for Albumin/Creatinine Ratio cannot be reliably calculated because urine albumin and or urine creatinine is below the detection limit of the assay. Creatinine (U) [Mass/Vol]12.23 mg/dLTitusville Area HospitalCOMPREHENSIVE METABOLIC PANELon 03-06-7070Jzpwwok [Mass/Vol]3.9 g/dLNormal 3.2-5.3PMercy Health Springfield Regional Medical CenterComment on above:Performed By: #### CMP, THYR, HA1C, 52211-8 #### [facility] ([id number]) [address], [address] [place], [place] [address]KIB [Catalytic activity/Vol]73 U/SXudguo02-960BozSsmtdb [place] HospitalComment on above:Performed By: #### CMP, THYR, HA1C, 19209-7 #### [facility] ([id number]) [address], [address] [place], [place] [address]CTS [Catalytic activity/Vol]7 U/LNormal0-31PMercy Health Springfield Regional Medical CenterComment on above:Performed By: #### CMP, THYR, HA1C, 88943-7 #### [facility] ([id number]) [address], [address] [place], [place] [address]Ezfhe gap [Moles/Vol]9 mmol/LNormal5-15ProFort [facility] Hospital Hospital Comment on above:Performed By: #### CMP, THYR, HA1C, 30951-2 #### [facility] ([id number]) [address], [address] [place], [place] [address]IRO [Catalytic activity/Vol]9 U/LNormal0-41ProHolzer HospitalComment on above:Performed By: #### CMP, THYR, HA1C, 85803-8 #### [facility] ([id number]) [address], [address] [place], [place] [address]Hakbzbjqg [Mass/Vol]0.5 mg/dLNormal0.3-1.2PSouthwest General Health Center HospitalComment on above:Performed By: #### MANNY, THYR, HAJoe, 22945-1 #### [facility] ([id number]) [address], [address] [place], [place] [address]Jbubafi [Mass/Vol]8.7 mg/dLNormal8.5-10.5PSouthwest General Health Center HospitalComment on above:Performed By: #### MANNY THYR, HAJoe, 86487-0 #### [facility] ([id number]) [address] [place], [place] [address]Lspiinru [Moles/Vol]99 mmol/HPhzprl68-721XrkYmmxfv [place] HospitalComment on above:Performed By: #### MANNY THYR HAJoe, 38198-8 #### [facility] ([id number]) [address], [address] [place], [place] [address]DR8 [Moles/Vol]24 mmol/TEheyuz75-79UkjAesger [facility] Comment on above:Performed By: #### MANNY, THYR, HAJoe, 01362-2 #### [facility] ([id number]) [address], [address] [place], [place] [address]Nadniygfrb [Mass/Vol]0.53 mg/dLNormal0.40-1.00ProHolzer HospitalComment on above:Result Comment: METHOD TRACEABLE TO IDMS STANDARD Performed By: #### MANNY THYR, HAJoe, 78743-5 #### [facility] ([id number]) [address], [address] [place], [place] [address]oDOU (CKD-EPI) NON-RACE DEPENDENT>90Normal>59ProHolzer HospitalComment on above:Result Comment: Reported eGFR is based on the CKD-EPI 2020 equation that does not use a race coefficient.Performed By: #### MANNY THYGENTRY Stevens, 12111-4 #### [facility] ([id number]) [address], [address] [place], [place] [address]Phswjoh [Mass/Vol]474 mg/dLCritically wigu45-00GwbHnnypkHolzer HospitalComment on above:Performed By: #### MANNY THYRGENTRY, 44927-6 #### [facility] ([id number]) [address] [address] [place], [place] [address]Ddqfninlo [Moles/Vol]3.9 mmol/LNormal3.5-5.0ProHolzer HospitalComment on above:Performed By: #### MANNY THYRGENTRY, 32274-4 #### [facility] ([id number]) [address] [address] [place], [place] [address]Ursagwq [Mass/Vol]6.5 g/dLNormal6.0-8.0[facility] Comment on above:Performed By: #### MANNY THYRGENTRY, 40165-4 #### [facility] ([id number]) [address] [address] [place], [place] [address]Idvali [Moles/Vol]132 mmol/PQou879-415ChlAlszpwHolzer Hospital Comment on above:Performed By: #### MANNY THYR HAJoe, 54463-7 #### [facility] ([id number]) [address] [address] [place], [place] [address]Xxsf nitrogen [Mass/Vol]7 mg/dLNormal5-23ProHolzer HospitalComment on above:Performed By: #### MANNY THYR, HAJoe, 20856-3 #### [facility] ([id number]) [address], [address] [place], [place] [address]Otjdhloklpkfk metabolic panelon 49-73-8888Vnxfwli [Mass/Vol]3.9 g/dL3.2 - 5.3 g/dLKettering Memorial HospitalALP [Catalytic activity/Vol]73 U/L39 - 130 U/[facility] SystemALT No additional P-5'-P [Catalytic activity/Vol]7 U/L0 - 31 U/[facility] Health SystemAnion gap [Moles/Vol]9 mmol/L5 - 15 mmol/L ProMOwatonna Clinic SystemAST [Catalytic activity/Vol]9 U/L0 - 41 U/[facility] HospitalBilirubin [Mass/Vol]0.5 mg/dL0.3 - 1.2 mg/dLK[facility]tering [facility] Hospital Calcium [Mass/Vol]8.7 mg/dL8.5 - 10.5 mg/dLKettering Memorial HospitalChloride [Moles/Vol]99 mmol/L98 - 109 mmol/[facility] SystemCO2 [Moles/Vol]24 mmol/L22 - 32 mmol/[facility] HospitalCreatinine [Mass/Vol]0.53 mg/dL0.40 - 1.00 mg/dLKettering Memorial HospitalComment on above:METHOD TRACEABLE TO [facility] STANDARDeGFR (CKD-EPI)non-race dependent- [facility] HospitalComment on above: Reported eGFR is based on the CKD-EPI 2020 equation that does not use a race coefficient. Glucose [Mass/Vol]474 mg/dLCritically high65 - 99 mg/dLKettering Memorial Hospital Interpretation and review of laboratory resultsAbnoCritical access hospital Potassium [Moles/Vol]3.9 mmol/L3.5 - 5.0 mmol/[facility] Health SystemProtein [Mass/Vol]6.5 g/dL6.0 - 8.0 g/dLAtrium Health Providenceodium [Moles/Vol]132 mmol/TPxw485 - 146 mmol/Way[facility] HospitalUrea nitrogen [Mass/Vol]7 mg/dL5 - 23 mg/dLTitusville Area HospitalHGB A1C (GLYCO-HGB)on 07-38-2531Nokfrhx [Mass/Vol]349 mg/dLNoPremier Health Miami Valley HospitalComment on above:Performed By: #### CMP, THYR, HA1C, 44269-1 #### [facility] ([id number]) [address] [facility], [address] [place], [place] [address]QpT1l (Bld) [Mass fraction]13.8 %High4.4-5.6Mer[facility] Health [facility]rbana HospitalComment on above:Result Comment: NOTE ADA Guidelines Result HgbA1c Normal : less than 5.7 % Prediabetes : 5.7 % to 6.4 % Diabetes : > 6.4 % Use with caution in patients with abnormal hemoglobin variants as the half-life of red blood cells and in vivo glycation rates are affected.Performed By: #### MANNY, FRANK, PHILLIP, 48127-3 #### [facility] ([id number]) [address] [facility], [address] [place], [place] [address]Htlbkyqvfx A1con 72-66-6705Daecuex glucose Estimated from glycated hemoglobin (Bld) [Mass/Vol]349 mg/dLKettering Memorial HospitalHbA1c (Bld) [Mass fraction]13.8 %High4.4 - 5.6 %[facility] HospitalComment on above:NOTE ADA Guidelines Result HgbA1c Normal : less than 5.7 % Prediabetes : 5.7 % to 6.4 % Diabetes : > 6.4 % Use with caution in patients with abnormal hemoglobin variants as the half-life of red blood cells and in vivo glycation rates are affected. Interpretation and review of laboratory resultsAbnormalHelen M. Simpson Rehabilitation HospitalLipid 1996 panelon 50-86-6341Crgghnzxgdq [Mass/Vol]104 mg/aGAvv155 - 200 mg/dLKettering Memorial HospitalCholesterol in HDL [Mass/Vol]43 mg/dL39 - PINF mg/dLKettering Memorial HospitalComment on above: HDL <40 mg/dL - High Risk HDL > or = 40mg/dL- Desirable HDL >60 mg/dL - Negative Risk Cholesterol in LDL [Mass/Vol]28 mg/dLNINF - 130 mg/dLK[facility]tering Memorial Hospital Comment on above: LDL <100 mg/dL - Desirable LDL >160 mg/dL - High Risk Cholesterol in VLDL [Mass/Vol]33 mg/dLHigh0 - 30 mg/dLKettering Memorial Hospital Cholesterol.total/Cholesterol in HDL [Mass ratio]2.4 {ratio}1.0 - 5.0K[facility] Memorial HospitalTriglyceride [Mass/Vol]165 mg/gSGnkr12 - 150 mg/dLKettering Memorial HospitalCholesterol [Mass/Vol]104 mg/oTIei317-847VuzGglafkMercy Health Urbana HospitalComment on above:Performed By: #### FRANK BRYANT, PHILLIP, 30478-3 #### [facility] ([id number]) [address], [address] [place], [place] [address]Fbdzrzmfjim in HDL [Mass/Vol]43 mg/dLNormal>39Mer[facility] Health Urbana HospitalComment on above:Result Comment: HDL <40 mg/dL - High Risk HDL > or = 40mg/dL- Desirable HDL >60 mg/dL - Negative Risk Performed By: #### MANNY, FRANK, HA1C, 48622-1 #### [facility] ([id number]) [address] [facility], [address] [place], [place] [address]Xwdesktfrou in LDL [Mass/Vol]28 mg/dLNormal<130ProFort Hamilton Hospital HospitalComment on above:Result Comment: LDL <100 mg/dL - Desirable LDL >160 mg/dL - High Risk Performed By: #### FRANK BRYANT, GENTRY, 66158-7 #### [facility] ([id number]) [address], [address] [place], [place] [address]Kveqkeplzrq in VLDL [Mass/Vol]33 mg/dLHigh0-30ProFort Hamilton Hospital HospitalComment on above:Performed By: #### MANNY, THYR, HAJoe, 79405-6 #### [facility] ([id number]) [address], [address] [place], [place] [address]KJYNVWWJMHE:HDL2.0Crkroo9.0-5.0ProFort Hamilton Hospital HospitalComment on above:Performed By: #### FRANK BRYANT HA1C, 92714-6 #### [facility] ([id number]) [address], [address] [place], [place] [address]Dzfqcqxvqdni [Mass/Vol]165 mg/nWHbvq89-764BhyFuuafl [place] HospitalComment on above:Performed By: #### FRANK BRYANT HA1C, 18548-3 #### [facility] ([id number]) [address], [address] [place], [place] [address]Ms Panel Informationon 39-65-3904Uzmpabtvlgbjrk and review of laboratory resultsAbnormalProSelect Medical [facility] SystemProSelect Medical [facility] SystemTHYROID PROFILEon 75-02-1081Vahr T4 [Mass/Vol]0.50 ng/dLLow0.61-1.60ProFort Hamilton Hospital HospitalComment on above:Performed By: #### MANNY THYR, HAJoe, 54124-2 #### [facility] ([id number]) [address] [place], [place] [address]WYY4.94 uIU/mLHigh0.49-4.67ProFort Hamilton Hospital HospitalComment on above:Performed By: #### MANNY THYR, HA1C, 74007-0 #### [facility] ([id number]) [address] [facility], [address] [place], [place] [address]Wvjknft profile includes TSH FT4on 50-19-8543Dqlc T4 [Mass/Vol] 0.50 ng/dLLow0.61 - 1.60 ng/dLBetsy Johnson Regional Hospital Qn8.94 m[IU]/LHInova Loudoun HospitalCBC AUTO DIFFon 51-22-6316KTMD #0.1 103/ulNormal0.0-0.1 [facility] Medical CenterComment on above:Performed By: #### CBC #### [facility] [address] [place] [address] Dr. Alejandra TrotterBasophils/100 WBC (Bld)0.9 %Normal0.2-2.0[facility] Comment on above:Performed By: #### CBC #### [facility] [address] [place] [address] Dr. Alejandra Ruby #0.2 103/ulNormal0.0-0.7The [facility] HospitalComment on above: Performed By: #### CBC #### [facility] [address] [place] [address] Dr. Alejandra Nealosinophils/100 WBC (Bld)3.4 %Normal0.9-7.0[facility] Comment on above:Performed By: #### CBC #### [facility] [address] [place] [address] Dr. Alejandra Nealrythrocyte distribution width (RBC) [Ratio]12.5 %Faradw52.0-15.0 [facility] Medical CenterComment on above:Performed By: #### CBC #### [facility] [address] [place] [address] Dr. Alejandra TrotterHematocrit (Bld) [Volume fraction]45.3 %Wzgtyw18.0-48.0[facility] Regional Medical CenterComment on above:Performed By: #### CBC #### [facility] [address] [place] [address] Dr. Alejandra TrotterHemoglobin (Bld) [Mass/Vol]15.0 g/uISmidig44.0-16.0The [facility] HospitalComment on above:Performed By: #### CBC #### [facility] [address] [place] [address] Dr. Alejandra Lai #0.02 10e3/ulNormal0.00-0.03The [facility] HospitalComment on above:Performed By: #### CBC #### [facility] [address] [place] [address] Dr. Alejandra Lai %0.3 %Normal0.0-0.5The [facility] HospitalComment on above: Performed By: #### CBC #### [facility] [address] [place] [address] Dr. Alejandra Fajardo #2.4 103/ulNormal1.2-3.8The [facility] HospitalComment on above:Performed By: #### CBC #### [facility] [address] [place] [address] Dr. Alejandra Oliviahocytes/100 WBC (Bld)41.2 %Fewihl59.5-60.0The [facility] HospitalComment on above:Performed By: #### CBC #### [facility] [address] [place] [address] Dr. Alejandra AndersUAL DIFF REQNONormalThe [facility] HospitalComment on above: Performed By: #### CBC #### [facility] [address] [place] [address] Dr. Alejandra Monzon (RBC) [Entitic mass]29.1 rmWborvk76.7-34.0The [facility] HospitalComment on above:Performed By: #### CBC #### [facility] [address] [place] [address] Dr. Alejandra Monzon (RBC) [Mass/Vol]33.1 g/pPGypfcr97.9-35.2The Alta HospitalComment on above:Performed By: #### CBC #### [facility] [address] [place] [address] Dr. Alejandra Tenorio (RBC) [Entitic vol]87.8 aSAnerqu89.0-99.0The [facility] HospitalComment on above:Performed By: #### CBC #### [facility] [address] [place] [address] Dr. Alejandra Key #0.4 103/ulNormal0.3-0.8The [facility] HospitalComment on above:Performed By: #### CBC #### [facility] [address] [place] [address] Dr. Alejandra Aranaocytes/100 WBC (Bld)6.7 %Normal1.7-12.0The [facility] Comment on above:Performed By: #### CBC #### [facility] [address] [place] [address] Dr. Alejandra Decker #2.8 103/ulNormal1.4-6.5The [facility] HospitalComment on above:Performed By: #### CBC #### [facility] [address] [place] [address] Dr. Alejandra Daileyutrophils/100 WBC (Bld)47.5 %Pwmiym64.0-75.0The [facility] HospitalComment on above:Performed By: #### CBC #### [facility] [address] [place] [address] Dr. Alejandra Jones mean volume (Bld) [Entitic vol]10.7 fLNormal9.5-13.5The [facility] HospitalComment on above:Performed By: #### CBC #### [facility] [address] [place] [address] Dr. Alejandra TrotterPLT282 103/aeOhvyti169-849Swh [facility] HospitalComment on above: Performed By: #### CBC #### [facility] [address] [place] [address] Dr. Alejandra TrotterRBC5.16 106/ulNormal4.20-5.40The [facility] HospitalComment on above:Performed By: #### CBC #### [facility] [address] [place] [address] Dr. Alejandra TrotterWBC5.8 103/ulNormal4.0-11.0The [facility] on above: Performed By: #### CBC #### [facility] [address] [place] [address] Dr. Alejandra Moncada-DIMERon 04-31-9292S-DIMER0.58 mg/L FEUNormal<=0.59The [facility] on above:Performed By: #### DDIM #### [facility] [address] [place] [address] Dr. Alejandra Moncada-DIMER COMMENTSSEE [facility] on above:Result Comment: Increases in D-Dimer [...] generalized hospitalization. Performed By: #### DDIM #### [facility] [address] [place] [address] Dr. Alejandra Cannon URINE PROFILEon 70-84-6250Tfifxynhg Ql (U)NegativeNormal NEGATIVEThe [facility] on above:Performed By: #### ERUR #### [facility] [address] [place] [address] Dr. Alejandra TrotterClarity (U)CLEARNormalCLEARThe [facility] HospitalComascension river district hospital on above: Performed By: #### ERUR #### [facility] [address] [place] [address] Dr. Alejandra Stallworth (U)LT. YELLOWNormalYELLOWAdena Regional Medical CenterComascension river district hospital on above:Performed By: #### ERUR #### [facility] [address] [place] [address] Dr. Alejandra Forde micrscopic examination will be performed if indicated. NormalThe [facility] HospitalComment on above:Performed By: #### ERUR #### [facility] [address] [address] [address] Alejandra TrotterGlucose Ql (U)>1000AbnormalNEGATIVEAdena Regional Medical CenterComment on above:Performed By: #### ERUR #### [facility] [address] [place] [address] Dr. Alejandra TrotterHemoglobin Ql (U)TRACE-LYSEDAbnormalNEGATIVEAdena Regional Medical Center Comment on above:Performed By: #### ERUR #### [facility] [address] [place] [address] Dr. Alejandra TrotterKetones Ql (U)>=80AbnormalNEGATIVEAdena Regional Medical CenterComment on above:Performed By: #### ERUR #### [facility] [address] [place] [address] Dr. Alejandra TrotterLEUKOCYTESNegativeNormalNEGATIVEAdena Regional Medical CenterComment on above:Performed By: #### ERUR #### [facility] [address] [place] [address] Dr. Alejandra TrotterNitrite Ql (U)NegativeNormalNEGATIVEAdena Regional Medical CenterComment on above:Performed By: #### ERUR #### [facility] [address] [place] [address] Dr. Alejandra TrotterpH (U)5.0 [pH]Normal5-9[facility] Regional Medical CenterComment on above: Performed By: #### ERUR #### [facility] [address] [place] [address] Dr. Alejandra TrotterSPEC GRAVITY1.978Oiktdi2.005-<=1.025The [facility] HospitalComment on above:Performed By: #### ERUR #### [facility] [address] [place] [address] Dr. Alejandra Johnson PROTEINNegativermalNEGATIVE/ TRACEAdena Regional Medical Center Comment on above:Performed By: #### ERUR #### [facility] [address] [place] [address] Dr. Alejandra Emmanuel MICRO INDNOT INDICATEDUniversity Hospitals Conneaut Medical CenterComment on above:Performed By: #### ERUR #### [facility] [address] [place] [address] Dr. Alejandra Wilkesbilinogen Qn (U)0.2 {Rui'U}/dLNormal0.2 - 1.0The [facility] on above:Performed By: #### ERUR #### [facility] [address] [place] [address] Dr. Alejandra TrotterLACTATE/LACTIC ACIDon 70-44-7050Qqhbtzl [Moles/Vol]1.1 mmol/L Normal0.4-2.0The [facility] on above:Performed By: #### LACT #### [facility] [address] [place] [address] Dr. Alejandra TrotterPOINT OF CARE GLUCOSEon 27-82-8949Pqfecka [Mass/Vol]322 mg/dL Critically sqoo10-201Vvo [facility] on above:Performed By: #### POCGLUC #### [facility] [address] [place] [address] Dr. Alejandra TrotterPROF 14(COMP METB)on 89-42-8953Ushjasi [Mass/Vol]3.6 g/dLNormal 3.4-5.0The [facility] on above:Performed By: #### HSTROPN, CMP #### [facility] [address] [place] [address] Dr. Alejandra TrotterAlbumin/Globulin [Mass ratio]0.9 {ratio}NormalThe [facility] on above:Performed By: #### HSTROPN, CMP #### [facility] [facility] [address] [place] [address] Dr. Alejandra MartP [Catalytic activity/Vol]107 U/WUrahsh14-694Fvf [facility] on above:Performed By: #### HSTROPN, CMP #### [facility] [address] [place] [address] Dr. Alejandra MartT [Catalytic activity/Vol]14 U/YRwhpzf28-75Qhn [facility] on above:Performed By: #### HSTROPN, CMP #### [facility] [address] [address] [address] Alejandra Matthewson gap [Moles/Vol]20.6 mmol/LNormalThe [facility] Comment on above:Performed By: #### HSTROPN, CMP #### [facility] [address] [place] [address] Dr. Alejandra TrotterAST [Catalytic activity/Vol]11 U/LCritically wxn01-11Gai [facility] HospitalComment on above:Performed By: #### HSTROPN, CMP #### [facility] [address] [place] [address] Dr. Alejandra TrotterBilirubin [Mass/Vol]0.4 mg/dLNormal0.2-1.0[facility] Comment on above:Performed By: #### HSTROPN, CMP #### [facility] [address] [place] [address] Dr. Alejandra TrotterCalcium [Mass/Vol]9.0 mg/dLNormal8.5-10.1[facility] Comment on above:Performed By: #### HSTROPN, CMP #### [facility] [address] [place] [address] Dr. Alejandra TrotterChloride [Moles/Vol]97 mmol/LCritically pjt83-879Zew [facility] HospitalComment on above:Performed By: #### HSTROPN, CMP #### [facility] [address] [place] [address] Dr. Alejandra TrotterCO2 [Moles/Vol]19.7 mmol/LCritically low21.0-32.0The [facility] HospitalComment on above:Performed By: #### HSTROPN, CMP #### [facility] [address] [place] [address] Dr. Alejandra TrotterCreatinine [Mass/Vol]0.83 mg/dLNormal0.55-1.02The [facility] HospitalComment on above:Performed By: #### HSTROPN, CMP #### [facility] [address] [address] [address] Alejandra NealGFR-AF ETHIOPIAN>60Normal>=60The [facility] HospitalComment on above:Performed By: #### HSTROPN, CMP #### [facility] [address] [address] [address] Alejandra NealGFR-NON AF ETHIOPIAN>60Normal>=60The [facility] HospitalComment on above:Performed By: #### HSTROPN, CMP #### [facility] [address] [place] [address] Dr. Alejandra TrotterGlobulin (S) [Mass/Vol]4.2 g/dLNormalThe [facility] HospitalComment on above:Performed By: #### HSTROPN, CMP #### [facility] [address] [place] [address] Dr. Alejandra TrotterGlucose [Mass/Vol]389 mg/dLCritically xjsk94-335Gva [facility] HospitalComment on above:Performed By: #### HSTROPN, CMP #### [facility] [address] [place] [address] Dr. Alejandra TrotterPotassium [Moles/Vol]4.3 mmol/LNormal3.5-5.1The [facility] Comment on above:Performed By: #### HSTROPN, CMP #### [facility] [address] [place] [address] Dr. Alejandra TrotterProtein [Mass/Vol]7.8 g/dLNormal6.4-8.2The [facility] Comment on above:Performed By: #### HSTROPN, CMP #### [facility] [address] [place] [address] Dr. Alejandra TrotterSodium [Moles/Vol]133 mmol/LCritically all324-683Hfk [facility] on above:Performed By: #### HSTROPN, CMP #### [facility] [address] [place] [address] Dr. Alejandra TrotterUrea nitrogen [Mass/Vol]5.0 mg/dLCritically low7.0-18.0The [facility] on above:Performed By: #### HSTROPN, CMP #### [facility] [address] [address] [address] Alejandra TrotterUrea nitrogen/Creatinine [Mass ratio]6.0 mg/mgNormalThe [facility] HospitalComment on above:Performed By: #### HSTROPN, CMP #### [facility] [address] [address] [address] Alejandra TrotterSYMPTOMATIC COVID-19 ANTIGENon 58-05-0061ZYG StatementSEE BELOW NormalThe [facility] on above:Result Comment: This test has [...] is revoked sooner.Performed By: #### CVDAGS #### [facility] [address] [address] [address] Alejandra Wilkerson-CoV-2 (COVID-19) RNA NEENA+probe Ql (Unsp spec)NegativeNormal NEGATIVEThe [facility] HospitalComasc[facility] on above:Performed By: #### CVDAGS #### [facility] [address] [place] [address] Dr. Alejandra Valladares, HIGH SENSITIVITYon 75-67-2397EKTQWL4.6 pg/mLNormal 4.0-51.3The [facility] on above:Result Comment: CUT-OFF POINTS HAVE BEEN ESTABLISHED BASED ON THE FOURTH UNIVERSAL DEFINITIONS OF MYOCARDIAL INFARCTION. THE UPPER REFERENCE LIMIT (URL) OF TROPONIN, DEFINED THE 99TH PERCENTILE OF cTnI DISTRIBUTION IN A REFERENCE POPULATION, HAS BEEN CONFIRMED THE DECISION THRESHOLD FOR [place] DIAGNOSIS.Performed By: #### HSTROPN, CMP #### [facility] [address] [address] [address] Alejandra TrotterXR CHEST 2 Von 16-26-3110PP CHEST 2 VEXAMINATION: XR CHEST 2 V [...] Electronically authenticated by: LORETA MACKENZIE Date: 2022-10-19 21:48[facility] CenterCOVID Quick Testingon 95-97-1310YjylwvYrvyrqnyWlpui [employer] Other Vital Signs Date TimeVital SignValuePerforming MtxuoifyjCsfuguec00-33-6397 13:44-0400Body .2 Leonard Christianson MD Work Phone: [phone] LouisWfwqruryvg76-74-8949 13:44-0400Body mass index (BMI) [Ratio]32.42 kg/u0GraknMeghna Christianson MD Work Phone: [phone] [place], [place] [address]Jfqmesmcaz74-32-1864 13:44-0400Body .89 kgMeghna Christianson MD Work Phone: [phone] [place], [place] [address]Cwndklxotz28-10-6850 13:44-0400Heart rate99 /min Meghna Christianson MD Work Phone: [phone] [place], [place] [address]Lvdegskbyv04-66-3433 13:44-0400Respiratory rate20 /minMeghna Christianson MD Work Phone: [phone] [place], [place] [address]Atfmibhiad76-79-4424 13:44-3670RqR6% (BldA) [Mass fraction]99 %Meghna Christianson MD Work Phone: [facility] LouisUqawzilpic54-35-3024 13:32-0400Body bubwku399.7 Kavitha Keen MD Work Phone: [facility] [employer] Cvbhqn82-43-6286 13:32-0400Body mass index (BMI) [Ratio]26.33 kg/z6FhjnvCarmen Keen MD Work Phone: [facility] [employer] Zuvfuw57-98-9445 13:32-0400Body afvoif41.56 kgCarmen Keen MD Work Phone: [facility] [employer] Crgyoi10-32-9314 13:32-0400Diastolic blood rvlorxao25 mm[Hg]Carmen Keen MD Work Phone: [facility] [employer] Ucgdpw57-88-6235 13:32-0400Systolic blood wlwyqlyb21 mm[Hg]Carmen Keen MD Work Phone: [facility]07-10-2025 13:18-0400Body seewdk461.3 cmMelany Raedy DO Work Phone: [facility]07-10-2025 13:18-0400Body mass index (BMI) [Ratio]24.32 kg/z7Zqgdbv Raedy DO Work Phone: [facility] [employer] Qqbxba81-21-6219 13:18-0400Body weight 74.71 kgMelany Raedy DO Work Phone: [facility] [employer] Szilci73-60-6740 13:18-0400Diastolic blood pltfhzip47 mm[Hg]Stanton Raedy DO Work Phone: [facility] [employer] Mflkae18-71-7247 13:18-0400Heart rate89 /minMelany Raedy DO Work Phone: [facility]07-10-2025 13:18-5931LjP3% (BldA) [Mass fraction]97 %Stanton Raedy DO Work Phone: [facility]07-10-2025 13:18-0400Systolic blood trlnlecb746 mm[Hg]Stanton Raedy DO Work Phone: [facility]06-19-2025 06:47-0400Body mqrtmejobni19.7 [degF]Rikki Oscar MD Work Phone: [phone]-Jordyn [facility]06-19-2025 06:47-0400Diastolic blood mm[Hg]Rikki Oscar MD Work Phone: [phone]-[facility]06-19-2025 06:47-0400Heart rate77 /Rachel Oscar MD Work Phone: [phone]-[facility]06-19-2025 06:47-0400 Respiratory rate16 /Rachel Oscar MD Work Phone: [phone] [place], [place] [address]2006-19-2025 06:47-8447QlW3% (BldA) [Mass fraction]96 %Rikki Oscar MD Work Phone: [phone]-[facility] HospitalK[facility]06-19-2025 06:47-0400Systolic blood xnmbpxak239 mm[Hg]Rikki Oscar MD Work Phone: [phone])429-Jordyn [facility]06-19-2025 06:23-0400Body dedoch242.7 Michele Oscar MD Work Phone: [phone]-[facility]06-19-2025 05:45-0400Body mass index (BMI) [Ratio]23.72 kg/m2Rikki Oscar MD Work Phone: [phone]-[facility]yn [facility]06-19-2025 05:45-0400Body .76 kgRikki Oscar MD Work Phone: [phone]-[facility]06-18-2025 19:51-0400Body kfjjuocunog99Lnuh Seamons MD Work Phone: [phone]-[facility]06-04-2025 12:54-0400Body lmloog349.[address] [facility]06-04-2025 12:54-0400Body mass index (BMI) [Ratio]23.05 kg/m2[facility]06-04-2025 12:54-0400Body iydksl27.77 kgPwsMercy Health [facility]06-04-2025 12:54-0400Diastolic blood mm[Hg][facility] 12-06-2024 12:54-0400Systolic blood skyodqpg023 mm[Hg][facility]04-16-2025 09:23-0400Diastolic blood fttfdlou71 mm[Hg]Flory Toure DO Work Phone: [facility]04-16-2025 09:23-0400Systolic blood qwuvydsh39 mm[Hg]Flory Toure DO Work Phone: [facility]04-16-2025 07:48-0400Body yuflxpaopxg78.6 [degF]Flory Toure DO Work Phone: [facility]04-16-2025 07:48-0400Heart rate75 /minJaveria Toure DO Work Phone: [facility]04-16-2025 07:48-0400 Respiratory rate20 /minJaveria Toure DO Work Phone: [facility]04-16-2025 07:48-7511KbW9% (BldA) [Mass fraction]97 %Flory Toure DO Work Phone: [facility]04-16-2025 04:30-0400Body mass index (BMI) [Ratio]20.98 kg/v5Vyxwhic Toure DO Work Phone: [facility]04-16-2025 04:30-0400Body onjhqs87.6 kgJaveria Toure DO Work Phone: [address] [address]-14-2025 22:51-0400Body nmrybc305.7 cmJaveria Toure DO Work Phone: [facility] RehabilitationKbpcgs67-51-2219 09:29-0400Body sgowly721.2 cmGomez BANGURA Work Phone: [facility] Wpweme50-39-8411 09:29-0400Body mass index (BMI) [Ratio]21.68 kg/o3OkmvxcGomez Green APRN-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 Work Phone: [facility] Kdoxfi44-85-2309 09:29-0400Body fwjpwxvrhob10.2 [degF]Gomez Green GENERAL OFFICE ASSISTANT-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 Work Phone: [facility] Gglygd88-20-1358 09:29-0400Body iqwrpi93.78 kgBrniall Green GENERAL OFFICE ASSISTANT-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 Work Phone: [facility] Oadwxd07-41-3719 09:29-0400Diastolic blood zgcodnkt57 mm[Hg]Gomez Green APRN-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 Work Phone: [facility] [employer] Gzpuyw39-06-5343 09:29-0400Heart rate 110 /minGomez Green APRN-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 Work Phone: [facility] Gsurgn37-38-1798 09:29-6477QxU4% (BldA) [Mass fraction]97 %Gomez Green APRN-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 Work Phone: [facility] Cicckv20-71-2237 09:29-0400Systolic blood rgvyiehc379 mm[Hg]Gomez Green APRN-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 Work Phone: [facility] Xnodvl79-40-9591 08:22-0500Body cuckgr595.7 cmGomez Green APRN-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 Work Phone: [facility] Fbvfwf96-88-0754 08:22-0500Body mass index (BMI) [Ratio]23.11 kg/m6GvvmvdGomez Green GENERAL OFFICE ASSISTANT-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 Work Phone: [facility] Wxxqdu22-09-4371 08:22-0500Body ribviewwubl05.5 [degF]Gomez Green GENERAL OFFICE ASSISTANT-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 Work Phone: [facility] Bjhthu09-88-8935 08:22-0500Body .95 kgBrniall Green GENERAL OFFICE ASSISTANT-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 Work Phone: [facility] [employer] Pfcbnk93-31-9334 08:22-0500Diastolic blood iozomejq35 mm[Hg]Gomez Green APRN-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 Work Phone: [facility] [employer] Wigxgr13-27-1801 08:22-0500Heart rate 98 /minGomez Green APRN-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 Work Phone: [facility] [employer] Zpendq25-46-5794 08:22-8546EfG2% (BldA) [Mass fraction]98 %Gomez Green APRN-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 Work Phone: [facility] [employer] Ewrrww93-56-6513 08:22-0500Systolic blood mm[Hg]Gomez Green APRN-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 Work Phone: [facility] [employer] Dygvog41-30-5919 13:04-0500Body .7 cmThao Perez DO Work Phone: [facility] [employer] Bbhugr29-27-5527 13:04-0500Body mass index (BMI) [Ratio]23.17 kg/j0IdpieTeri Perez DO Work Phone: [facility] [employer] Ddhtfv29-91-7853 13:04-0500Body taisli87.13 kgTeri Perez DO Work Phone: [facility] [employer] Sijgyp67-03-5827 13:04-0500Diastolic blood favwckny64 mm[Hg]Teri Perez DO Work Phone: [facility] [employer] Kshfdv58-41-2735 13:04-0500Systolic blood ljscusrf753 mm[Hg]Trei Perez DO Work Phone: [facility] [employer] Rugcgo89-55-8777 10:52-0500Body asvbmm343.7 cmGomez Green APRN-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 Work Phone: [facility] [employer] Mkmjdi50-27-5208 10:52-0500Body mass index (BMI) [Ratio]23.16 kg/h8PiwizrGomez Green APRN-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 Work Phone: [facility] [employer] Imjzqh40-58-6495 10:52-0500Body jcxbeeaqnyb11.6 [degF]Gomez Green APRN-LYNNETTE Work Phone: [facility] [employer] Ihrfnv85-47-9609 10:52-0500Body ktslex02.08 kgGomez Green APRN-LYNNETTE Work Phone: [facility] [employer] Enwpgm75-25-2793 10:52-0500Diastolic blood rnhhfoba49 mm[Hg]Gomez Green APRN-LYNNETTE Work Phone: [facility] [employer] Zsvpwn49-09-2416 10:52-0500Heart rate 100 /minGomez Green APRN-LYNNETTE Work Phone: [facility] [employer] Kuymsn61-66-1027 10:52-6415GwX5% (BldA) [Mass fraction]97 %Gomez Green APRN-LYNNETTE Work Phone: [facility] [employer] Tkidle06-30-4856 10:52-0500Systolic blood idhotyoc567 mm[Hg]Gomez Green APRN-LYNNETTE Work Phone: [facility] [employer] Cymyja14-09-4411 11:32-0500Body gwvzmo653.3 cmStanton Kohler DO Work Phone: [facility] [employer] Vyjgpb68-18-0290 11:32-0500Body mass index (BMI) [Ratio]36.39 kg/l0BviqhkStanton Kohler DO Work Phone: [facility] [employer] Rggzqy46-95-3151 11:32-0500Body gcfknobgulw92.1 [degF]Stanton Kohler DO Work Phone: [facility] Opshmv62-02-9977 11:32-0500Body weight 111.77 kgStanton Kohler DO Work Phone: [facility] [employer] Pgamzq25-02-7031 11:32-0500Diastolic blood zubjgifa95 mm[Hg]Stanton Johnsony DO Work Phone: [facility]01-21-2022 11:32-0500Heart rate82 /Yanira Kohler DO Work Phone: [facility]01-21-2022 11:32-0500Respiratory rate16 /Yanira Kohler DO Work Phone: [facility]01-21-2022 11:32-1718MdI8% (BldA) [Mass fraction]100 %Stanton Kohler DO Work Phone: [facility]01-21-2022 11:32-0500Systolic blood tkfaysfd019 mm[Hg]Stanton Kohler DO Work Phone: [facility]01-06-2022 12:30-0500Body height 175.3 cmDaalyssia Juares Jr., DO Work Phone: [phone] [place], [place] [address]01-06-2022 12:30-0500Body mass index (BMI) [Ratio]36.48 kg/t4Qhtpqalyssia Juares Jr., DO Work Phone: [phone] [place], [place] [address]1801-06-2022 12:30-0500Body znammekelfm70.01 [degF]Loreta Juares Jr., DO Work Phone: [phone] [place], [place] [address]1801-06-2022 12:30-0500Body weight 112.04 kgDavidiana Juares Jr., DO Work Phone: [phone] [place], [place] [address]1801-06-2022 12:30-0500Diastolic blood okumbcrx81 mm[Hg]Loreta Juares Jr., DO Work Phone: [phone] [place], [place] [address]931801-06-2022 12:30-0500Systolic blood jdobhwtv518 mm[Hg]Loreta Juares Jr., DO Work Phone: [phone] [place], [place] [address]10-29-2021 17:15-0400Body height 171.45 Brian Whitehead Other [place] [employer] Other 10-29-2021 17:15-0400Body mass index (BMI) [Ratio] 33.94 kg/e8KrokrrLenora Whitehead Other [employer] Other 10-29-2021 17:15-0400Body jicxqgbvdyh46.5 [degF]Lenora Whitehead Other [employer] Other 10-29-2021 17:15-0400Body .79 kgLenora Whitehead Other [employer] Other 10-29-2021 17:15-0400Respiratory rate18 /minLenora Whitehead Other [employer] Other 10-29-2021 17:15-5071NwB8% (BldA) [Mass fraction]98 % Lenora Whitehead Other [employer] Other Encounters Encounter DateEncounter TypeCare ProviderFacilityStart: 04-26-2025 End: 24-73-0774auxozcsgztTxbnvo Sue Cramer SECOND FACING BASTERCaesar Work Phone: [phone]-Xegqlpuxl[address] [place] [address] NeurologyStart: 04-26-2025 End: 97-63-3716Nohzjxp encounter procedureChristopher Clemente [facility] Work Phone: Start: 04-16-2025 End: 79-15-0662Ucvdrm outpatient new 45 minutesMeghna Christianson MD Work Phone: noms Jessa EndocrinologyComment on above: Postablative hypothyroidism (Primary Dx); Thyroid noduleStart: 04-16-2025 End: 55-90-7580Obhcgmdelaney Christianson MD Work Phone: [facility] EndocrinologyStart: 04-16-2025 End: 92-16-5933Hijapm Kaley Christianson MD Work Phone: DHAVAL Quintanilla EndocrinologyStart: 04-16-2025 End: 56-12-2691euyqfswxggJZCAYFer [place] AvailableStart: 02-27-2025 End: 88-71-2828Rntsla [facility] Amanda [facility] Physicians Obstetrics/GynecologyComment on above:Abnormal TSH (Primary Dx)Start: 02-12-2025 End: 53-60-1655Zwzlcw [facility] Amanda [facility] Physicians Obstetrics/GynecologyComment on above:Elevated TSH (Primary Dx); Low serum prolactinStart: 02-09-2025 End: 21-86-2078Lfzvfy-up Zully Pete GENERAL OFFICE ASSISTANT-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 Work Phone: [facility] Obstetrics/GynecologyComment on above:Progesterone, Estradiol, Prolactin, Additional followed-up results: 6 Start: 02-08-2025 End: 65-23-7284rqqkhhchsiBTLLMKOhio Valley Surgical Hospitaltart: 02-08-2025 End: 44-93-6702Kysxughxvb hospital [facility] Schedule [facility] LABComment on above:Peripheral neuropathy due to disorder of metabolism; Weakness of both legsStart: 01-30-2025 End: 77-59-1552Erkyvj outpatient visit 15 minutesCarmen Keen MD Work Phone: [facility] Obstetrics/GynecologyComment on above:Postmenopausal syndrome (Primary Dx)Start: 01-30-2025 End: 77-93-4096geodytqpxnIOOAKMonte[facility] Ambulatory PPGStart: 01-12-2025 End: 24-80-4553Zmgtvk Lara Pete GENERAL OFFICE ASSISTANT-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 Work Phone: [facility] Obstetrics/GynecologyComment on above:Kiesha glabrata infection (Primary Dx)Start: 01-11-2025 End: 30-70-3574Felqyu outpatient new 30 minutesStanton Kohler DO Work Phone: [facility] N JESSA AVEComment on above: Weakness (Primary Dx)Start: 18-59-7567pzgqtrhyqmTGBMRW RAEDYAvita Louisville HospitalStart: 01-10-2025 End: 94-98-5430Yqzizhwbq department patient visitMICHAEL Longt HospitalStart: 98-39-5675szvhzuqqsvSCRUNJ Libby Jedanjum [facility] HospitalStart: 12-25-2024 End: 12-58-8696xvzooazsumFHMX KROTZERLakehealth [facility]point Medical Center HospitalStart: 12-25-2024 End: 15-59-5321Iwscdykicy hospital visit by [facility] Ultrasound [facility] UltrasoundComment on above:Nipple dischargeStart: 12-20-2024 End: 19-85-7576Pnskvmzwfq and management of inpatientRikki Oscar MD Work Phone: [facility] MED SURGComment on above:Diabetic ketoacidosis without coma associated with type 2 diabetes mellitus (HCC) (Primary Dx)Start: 12-20-2024 End: 06-06-0373Mtybye Lara Pete GENERAL OFFICE ASSISTANT-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 Work Phone: [facility] Obstetrics/GynecologyComment on above:Vasomotor symptoms due to menopause (Primary Dx); Brain fog; IrritabilityStart: 12-12-2024 End: 22-48-2733Twdunn Lara Pete GENERAL OFFICE ASSISTANT-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 Work Phone: [facility] Obstetrics/GynecologyComment on above:Kiesha glabrata infection; Vaginal yeast infectionHistory of uterine fibroidStart: 12-08-2024 End: 22-81-0075wizywlzzeaAMZCHF OGECHSelect Medical [facility] HospitalStart: 12-08-2024 End: 58-98-8221Oechcjqrmf hospital visit by [facility] LABComment on above:Lumbar radiculopathyThyroid noduleAcute pain of left kneeStart: 12-07-2024 End: 80-52-3247Bwnstz Shriley Solis CMAProMedica Physicians Obstetrics/GynecologyComment on above:Nipple discharge (Primary Dx)Kiesha glabrata infection (Primary Dx); Vaginal yeast infectionStart: 12-06-2024 End: 98-27-3683Opyhrjsjf encounterJessica Pete APRN-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 Work Phone: [facility] Obstetrics/GynecologyStart: 12-06-2024 End: 74-55-2519Uperdod encounter procedurePwsc [facility] Start: 12-06-2024 End: 61-39-7463Szscczmw preventive med est patient 40-64yrsP[facility] [place] [facility] [place] Software Engineer [employer] [facility] - CyldeComment on above:Well woman exam with routine gynecological exam (Primary Dx); Screening mammogram for breast cancer; Screening for STD (sexually transmitted disease); Acute vaginitis; History of uterine fibroid; Nipple discharge; Pelvic pain; Screening for colon cancerStart: 12-06-2024 End: 73-02-7879vgcqfgdgunUJKDYProvidence Health Ambulatory PPGStart: 28-07-1271Hphizfzhj for gynecological examination (general) (routine) without abnormal findingsJacobs Medical Center Ambulatory PPGStart: 11-14-2024 End: 75-53-4061klnjjvfugiVANXGJWWVUMedicine Barnesville Hospitaltart: 11-14-2024 End: 81-69-6314Hnoqavbfvi hospital visit by Pilar Green APRN - 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 Work Phone: [facility] LABComment on above:Swelling of both lower extremities; Type 2 diabetes mellitus with hyperglycemia, without long-term current use of insulin (HCC)Start: 11-14-2024 End: 17-48-7706Tqmghgbex encounterDabert [facility] Call CenterComment on above:ResultsStart: 10-19-2024 End: 93-79-9167Xdfdmqdwo encounterDiane Restrepo RN Work Phone: [facility] Internal Medicine - Family MedicineComment on above:Transition Of CareStart: 10-16-2024 End: 83-56-5323Zrvrgktatu and management of inpatientJaveria Quinton Toure DO Work Phone: mthz [facility]GL[facility] CAMPUSU MED SURGComment on above:Swelling of both lower extremities (Primary Dx); Edema, unspecified type; Type 2 diabetes mellitus with hyperglycemia, without long-term current use of insulin ([facility])Start: 10-29-2023 End: 48-28-1212Fdsjkkkii encounterAnny Vee DEE DEEThe [facility] Physicians Internal Medicine - Family MedicineComment on above:Preventative ScreeningStart: 10-19-2023 End: 05-69-6235Tictzh OnlyGomez Green GENERAL OFFICE ASSISTANT-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 Work Phone: [facility] Internal Medicine - [facility] Hospitaltart: 10-13-2023 End: 37-94-2834qfgsiulginURAFMU L RAUCHPremier Health [facility] Hospital Northtart: 10-13-2023 End: 97-04-3825Bdxphr outpatient visit 25 minutesGomez Green GENERAL OFFICE ASSISTANT-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 Work Phone: [facility] Internal Medicine - Family MedicineComment on above:Acquired hypothyroidism (Primary Dx); Type 2 diabetes mellitus with hyperglycemia, without long-term current use of insulin ([facility]); Goiter; Smoking; History of Sjogren's disease ([facility])Start: 09-01-2023 End: 26-70-2821vtbspoqmfaXOGWIT L RAKIMBERLYPremier Health Miami Valley Hospital Northtart: 09-01-2023 End: 25-22-0199Jckfmfm encounter statusGomez Green GENERAL OFFICE ASSISTANT-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 Work Phone: [facility] Work Phone: Start: 09-01-2023 End: 86-61-4304Lkroduzb preventive med est patient 40-64yrsGomez Souza Norma GENERAL OFFICE ASSISTANT-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 Work Phone: [facility] Internal Medicine - Family MedicineComment on above:Wellness examination (Primary Dx); Other specified diabetes mellitus with hyperglycemia, without long-term current use of insulin ([facility]); Graves disease; Acquired hypothyroidism; Special screening for malignant neoplasm of colon; SmokingStart: 08-31-2023 End: 42-64-6172Mtftbmumw for gynecological examination (general) (routine) without abnormal findingsTeri Perez DO Work Phone: [facility] HospitalAoi.Cotart: 08-31-2023 End: 97-05-1294Yzpjbce encounter procedureTanjorge Perez DO Work Phone: [facility] HospitalWinking Entertainment [facility] Hospitaltart: 08-31-2023 End: 86-78-0749Qlznkygl preventive med est patient 40-64yrsThao Perez DO Work Phone: [facility] Obstetrics/GynecologyComment on above:Well woman exam with routine gynecological exam (Primary Dx); Screening mammogram for breast cancer; Cervical smear, as part of routine gynecological examination; History of uterine fibroid; Menorrhagia with regular cycle; History of Graves' disease; History of cervical cancer; Smoker; Weight loss; History of Sjogren's disease ([facility])Start: 07-29-2518Ftiary OnlyGomez Green GENERAL OFFICE ASSISTANT-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 Work Phone: [facility] Internal [facility] - [facility] Hospitaltart: 08-27-2023 End: 24-22-1597kiicuvjgmeGJXEGY L RAUCHPremier Health Miami [facility] Hospital Northtart: 08-27-2023 End: 09-20-9399Nsrlka outpatient new 45 minutesGomez Green GENERAL OFFICE ASSISTANT-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 Work Phone: [facility] Internal Medicine - Family MedicineComment on above:Encounter for medical examination to establish care (Primary Dx); Graves' disease; Acquired hypothyroidism; Sjogren syndrome, unspecified ([facility]); Goiter; Malignant neoplasm of cervix, unspecified site ([facility]); Hyperglycemia; Hyperlipidemia, unspecified hyperlipidemia type; Smoking; Nail fungus; HyperpigmentationStart: 08-27-2023 End: 52-91-8091Mwtobug encounter statusGomez Green GENERAL OFFICE ASSISTANT-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 Work Phone: [facility] Work Phone: Start: 10-19-2022 End: 60-12-0735ebknnrxtczWS DOCTOR MISCFacility:K1Qtxiq: 03-17-2022 End: 36-01-9167yfurzvijirQU DOCTOR MISCFacility:O3Pgikq: 07-25-2021 End: 26-14-8433Ddjrti outpatient visit 40 minutesMelany F Raedy DO Work Phone: [facility] Differential Dynamics [place] NeurologyComment on above: Nocturnal leg movements (Primary Dx)Start: 07-10-2021 End: 17-83-7010Fjdnnf outpatient new 45 minutesDavid Johnathan Juares DO Work Phone: aVers[facility] RheumatologyComment on above:History of Sjogren's disease (Primary Dx); Hyperpigmentation of skin of cheek; Xerostomia; Dry mouth; Dry eyes; Telangiectasia of face; Hypothyroidism, unspecified type; Hyperglycemia; Basedow's disease; Keratoconjunctivitis sicca; Osteoarthritis of right hand, unspecified osteoarthritis type; Osteoarthritis of left foot, unspecified osteoarthritis type; Lumbar degenerative disc diseaseStart: 05-02-2021(URG) Urgent Care VisitPamela DymondFPG Urgent Care Tommy Procedures DateProcedureProcedure DetailPerforming ClinicianStart: 02-08-2025 End: 39-34-0577Nwqcazys kinase totalKecesar Araiza MD Work Phone: start: 86-77-9687SBNKBUO B12 & FOLATEKempramiro Araiza MD Work Phone: start: 02-16-8534Sx breast uni real time with image limitedJessica Pete APRN - SECOND FACING BASTER Work Phone: [phone]: 12-25-2024 End: 72-28-8393Olrbucscgp mammography computer-aided detcj Janett Pete APRN - SECOND FACING BASTER Work Phone: Start: 74-71-9235PVQOKCK, WHOLE BLOODMark Pk Herron MD Work Phone: Start: 87-04-1478EBFUFVU, WHOLE BLOODMark Pk Herron MD Work Phone: Start: 63-01-5739Sqzigv ecg 1-3 leads w/interpretation & reportUnknown Provider ResultStart: 66-07-2481Cszgl count complete auto&auto difrntl wbcMegan L Heather GENERAL OFFICE ASSISTANT - 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 Work Phone: Start: 01-37-5722NVVFHDW, WHOLE BLOODMark Pk Herron MD Work Phone: Start: 10-91-6431Yvmye dip stick/tablet reagent auto microscopyMegan Libby Romero GENERAL OFFICE ASSISTANT - 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 Work Phone: Start: 41-93-9036Dcpzt metabolic panel calcium total Rikki Oscar MD Work Phone: Start: 51-93-7481LEOROZD, WHOLE BLOODRikki Oscar MD Work Phone: Start: 12-20-2024 End: 73-57-2890Hs head/brain w/o contrast materialRikki Oscar MD Work Phone: Start: 83-39-7837Dwg routine ecg w/least 12 lds w/i&r Rikki Oscar MD Work Phone: Start: 22-17-1180Yquvp gases any combination ph pco2 po2 co2 rwr9OqjxRikki Oscar MD Work Phone: Start: 69-91-8359Hgkzvtgfbnejh metabolic panelRikki Oscar MD Work Phone: Start: 60-29-1047NONPGEE, DEMETRIUS Oscar MD Work Phone: Start: 01-00-1092Ui soft tissue head & neck real time imge Leda Clancy MD Work Phone: Start: 75-91-5261Qhhcnxirll examination knee 1/2 views Shelley Clancy MD Work Phone: Start: 28-77-7033Xwetwzuxwmpka metabolic panelUnknown Provider ResultStart: 74-14-5193Huovt albumin quantitativeUnknown Provider ResultStart: 99-73-6944CGELQWA, WHOLE BLOODChrisstephanie Avila MD Work Phone: Start: 19-49-2747OVPQVOP, WHOLE BLOODChemilie Avila MD Work Phone: Start: 25-94-9142Smeme of thyroid stimulating hormone tshShadolfo Hernan HarrellBhupinder [employer] Work Phone: Start: 30-84-0138Gxcwvf ecg 1-3 leads w/interpretation & reportUnknown Provider ResultStart: 24-35-3545Ytfyj of osmolality urineJill E Hemmelgarn DO Work Phone: Start: 44-53-6365Zisig albumin quantitativeJill E Hemmelgarn DO Work Phone: Start: 10-17-2024 End: 74-69-0360KIOWUPC, WHOLE BLOODChristopher Diana Avila MD Work Phone: Start: 66-34-1406Us angio abd&plvis cntrst mtrl w/wo cntrst imgShijordy Hernan HarrellBhupinder [employer] Work Phone: Start: 10-17-2024 End: 79-02-5348Lncwsc ecg 1-3 leads w/interpretation & reportUnknown Provider ResultStart: 57-96-2976Xaxqr dip stick/tablet reagent auto microscopyMegan Libby Heather [employer] Work Phone: Start: 42-22-9475Jipycnzaby glycosylated f0iFycjh L Heather [employer] Work Phone: Start: 90-99-1607PVQCTVN, WHOLE BLOODChristopher Diana Avila MD Work Phone: Start: 10-16-2024 End: 27-28-4727Ovi routine ecg w/least 12 lds i&r onlyJaveria J Toure DO Work Phone: Start: 44-64-1448Ommowxvkpoxqw metabolic panelJaveria J Toure DO Work Phone: Start: 68-94-0799Ugauj depression screening assessment Gomezniall Green [employer] Work Phone: Start: 54-71-5319Lrxcm depression screening assessment Gomez Norma [employer] Work Phone: Start: 67-56-9740Vdthntahxxbn [Mass/volume] in Urine by Test stripGomez Green GENERAL OFFICE ASSISTANTShore Equity Partners Work Phone: Start: 66-58-3520Qbiql depression screening assessment Teri Perez DO Work Phone: Start: 69-19-1093Suimnlphwek observation [Identifier] in Cervix by Cyto stainGomez Green GENERAL OFFICE ASSISTANTShore Equity Partners Work Phone: Start: 78-31-6657Vztvc depression screening assessment Gomez Green GENERAL OFFICE ASSISTANTShore Equity Partners Work Phone: Start: 64-83-2920EnjxalhfddlPxmjlw Rauch [employer] Work Phone: Plan of Treatment DateCare ActivityDetailAuthorStart: 06-25-9693Gffoupqui for malignant neoplasm of breastBreast cancer screenBon [facility] St[facility] MashupsStart: 50-64-0428Nkdsrledp for malignant neoplasm of cervixPap SmearThe [facility] Differential Dynamics SystemStart: 80-86-2601Yliotpb CounselingTobacco CounselingAdena Health System SystemStart: 08-07-4034Bdhtg BMI ScreeningAdult BMI ScreeningThe [facility] Health SystemStart: 58-58-0483Nngidnt ScreeningTobacco ScreeningThe [facility] Health SystemStart: 38-55-8375Wooln BMI ScreeningAdult BMI ScreeningProFlower Hospitalca Health SystemStart: 20-28-1190Fyhqxey ScreeningTobacco ScreeningWood County Hospitalca Health SystemStart: 31-96-7330Uubnoqfpr for malignant neoplasm of breastMammogramAdena Health System SystemStart: 11-89-7931DXW test (Diabetes, CKD 3-4, OR last GFR 15-59)GFR test (Diabetes, CKD 3-4, OR last GFR 15-59)[facility] HospitalStart: 12-06-2025 Adult BMI ScreeningAdult BMI ScreeningAdena Health System SystemStart: 12-06-2025 Tobacco ScreeningTobacco ScreeningAdena Health System SystemStart: 32-27-4956DCP test (Diabetes, CKD 3-4, OR last GFR 15-59)GFR test (Diabetes, CKD 3-4, OR last GFR 15-59)[facility]: 47-12-4299Qeagu screening for protein Diabetic Alb to Cr ratio (uACR) testLewisGale Hospital Montgomery: 11-00-0972BYA test (Diabetes, CKD 3-4, OR last GFR 15-59)GFR test (Diabetes, CKD 3-4, OR last GFR 15-59)[facility]: 35-00-6188Lrdeg screening for protein Diabetic Alb to Cr ratio (uACR) testRiverside Behavioral Health Centerart: 07-17-2025 End: 87-51-2514Rswghsg encounter eahdruhdx47/13/2026 2:30 PM EST Office Visit [facility] [address] [place] [address] Meghna Christianson MD [address], [address] [place] [address] [facility] EndocrinologyStart: 04-16-2025 End: 55-63-7202Xwhrqkq encounter enihkzyns37/13/2025 2:40 PM EDT Office Visit [facility] [address] [place] [address] Meghna Christianson MD [address] [place] [address] ArrivedDHAVAL Quintanilla EndocrinologyComment on above:ArrivedStart: 04-16-2025 End: 41-47-9268Kismnoblfop [Units/volume] in Serum or PlasmaTSH Lab Routine Postablative hypothyroidism Expected: 04/16/2025 (Approximate), Expires: 04/16/2026NOME HealthcareComment on above:Expected: 04/16/2025 (Approximate), Expires: 04/16/2026Start: 04-16-2025 End: 02-71-5742Opjysekfv (T4) free [Mass/volume] in Serum or PlasmaT4, free Lab Routine Postablative hypothyroidism Expected: 04/16/2025 (Approximate), Expires: 04/16/2026[facility] HealthcareComment on above:Expected: 04/16/2025 (Approximate), Expires: 04/16/2026Start: 04-16-2025 End: 68-05-4413Pmsvnusqbkdvsobs (T3) Free [Mass/volume] in Serum or PlasmaT3, free Lab Routine Postablative hypothyroidism Expected: 04/16/2025 (Approximate), Expires: 04/16/2026[facility] Work Phone: Comment on above:Expected: 04/16/2025 (Approximate), Expires: 04/16/2026Start: 03-22-2025 End: 33-62-5033Heesmpe encounter /18/2025 2:20 PM EDT Office Visit [facility] Part of [address] [place] [address] Trice Araiza MD [address] [place] [address] [address] [place] [address] Peripheral Neuropathy ; 1 mth follow up EEG, [facility] NEUROLOGY Part [facility]Memorial HospitalComment on above:Peripheral Neuropathy ; 1 mth follow up EEG, labsStart: 03-06-2025 End: 58-71-7896Cpuypby encounter lyalvcmwi99/02/2025 2:15 PM EDT Office Visit [facility] [address] [place] [address] Carmen Keen MD [address] [place], [place] [id number] [facility] Obstetrics/GynecologyStart: 38-47-0242Tygsntdfk vaccinationWood County Hospitalca [facility] SystemStart: 07-33-6149Tahducc CounselingTobacco CounselingAdena Health System SystemStart: 02-08-2025 End: 22-15-2849Qogszjs encounter foecakwrv04/07/2025 1:20 PM EDT Office Visit [facility] Part of [address] [place] [address] Trice Araiza MD [address] [place] [address] Dr [address] [place] [address] [facility] Part [facility]+Memorial HospitalComment on above: ALSStart: 02-05-2025 End: 50-76-1792Rzitbmf encounter wqazijcsi23/04/2025 1:40 PM EDT Office Visit [facility] Part of [address] [place] [address] Trice Araiza MD [address] [place] [address] Dr [address] [place] [address] [facility] NEUROLOGY Part [facility]+Memorial HospitalComment on above: ALSStart: 67-03-7298Qzyeqnggi vaccinationBon [facility] & Brentwood HospitalStart: 01-30-2025 End: 83-55-0678Yjbytug encounter rorrjanxo59/29/2025 1:30 PM EDT Office Visit [facility] [address] [place] [address] Carmen Keen MD [address] [place] [address] [facility] Obstetrics/GynecologyStart: 01-18-2025 End: 60-92-1149TjrnzwkeaeyacryfDJO & NERVE CONDUCTION Neurology Routine Weakness Expected: 01/18/2025, Expires: 01/11/2026[facility] SystemComment on above: Expected: 01/18/2025, Expires: 01/11/2026Start: 33-17-4030Ztxspxsedb A1c doccabirbmsF7P test (Diabetic or Prediabetic)[facility] HospitalStart: 01-01-2025 End: 96-66-9528Ujbtozh encounter nwymgmrgz31/30/2025 4:45 PM EDT Appointment [facility] Physical Therapy [address] [place] [address] Star Bobby Stephanie, PTMTHZ Physical TherapyStart: 01-01-2025 End: 52-18-2422Vfengot encounter procedureVan Wert County Hospital MammographyComment on above:media/ptStart: 12-25-2024 End: 76-89-6285Spnxlap encounter procedureVan Wert County Hospital MammographyComment on above:media/ptStart: 12-12-2024 End: 59-99-9714Ldoxxum encounter lhywnvdyc92/10/2025 1:00 PM EDT Appointment [facility] Ul[facility] [address] [place] [address] media/ptMMemorial Hospital UltrasoundComment on above:media/pt Start: 12-07-2024 End: 23-84-4501BL Breast - bilateral limitedUltrasound breast limited bilateral Imaging Routine Nipple discharge Expected: 12/07/2024, Expires:12/07/2025 [address] Work Phone: Comment on above:Expected: 12/07/2024, Expires: 12/07/2025Start: 12-06-2024 End: 13-94-9020AK Breast DiagnosticMammography diagnostic bilateral with CAD Imaging Routine Nipple discharge Expected: 12/06/2024, Expires: 12/06/2025 [facility] HospitalInstablogs SystemComment on above:Expected: 12/06/2024, Expires: 12/06/2025Start: 12-06-2024 End: 29-02-1463AY Pelvis transabdominal and transvaginalUltrasound pelvic with transvaginal Imaging Routine History of uterine fibroid Pelvic pain Expected: 12/06/2024, Expires: 12/06/2025ProWinking Entertainment SystemComment on above:Expected: 12/06/2024, Expires: 12/06/2025Start: 10-25-2024 End: 66-82-3161Oquxq metabolic 2000 panel - Serum or PlasmaBasic Metabolic Panel Lab Routine Swelling of both lower extremities Type 2 diabetes mellitus with h yperglycemia, without long-term current use of insulin (HCC) Expected: 10/25/2024, Expires: 10/18/2025[facility] HospitalComment on above: Expected: 10/25/2024, Expires: 10/18/2025Start: 10-25-2024 End: 05-49-1482FUG W Auto Differential panel - BloodCBC with Auto Differential Lab Routine Swelling of both lower extremities Type 2 diabetes mellitus with hyperglycemia, without long-term current use of insulin (HCC) Expected: 10/25/2024, Expires: 10/18/2025on [facility] CenterGlobal RallyCross Championship [facility] on above: Expected: 10/25/2024, Expires: 10/18/2025Start: 47-27-8889Fhxqi BMI Screening Adult BMI ScreeningProMedical Center Barbour Differential Dynamics SystemStart: 21-98-0748Rtovvnjjwu Screening Depression ScreeningThe [facility] Differential Dynamics [facility] Hospitaltart: 95-34-1463Oyeoufs Screening Tobacco ScreeningProSelect Medical [facility] SystemStart: 76-29-0748Sbxld BMI Screening Adult BMI ScreeningProMedical Center Barbour Differential Dynamics SystemStart: 78-43-0170Ytfpbzzecv Screening Depression ScreeningProMedical Center Barbour Differential Dynamics SystemStart: 13-77-6026Citfjlxe foot examinationDiabetic Foot ExamProSelect Medical [facility] SystemStart: 97-75-5163Hpjqeyc ScreeningTobacco ScreeningProSelect Medical [facility] SystemStart: 37-86-4836Nxubz screening for proteinUrine MicroalbuminProMedical Center Barbour Differential Dynamics SystemStart: 08-31-2024 Adult BMI ScreeningAdult BMI ScreeningProSelect Medical [facility] SystemStart: 08-31-2024 Depression ScreeningDepression ScreeningProMedical Center [facility] Differential Dynamics SystemStart: 08-31-2024 Tobacco ScreeningTobacco ScreeningProMedical Center [facility] Differential Dynamics SystemStart: 35-00-2406Ytnzi BMI ScreeningAdult BMI ScreeningProSelect Medical [facility] SystemStart: 08-27-2024 Depression ScreeningDepression ScreeningThe [facility] Differential Dynamics SystemStart: 08-27-2024 Tobacco ScreeningTobacco ScreeningThe [facility] Differential Dynamics SystemStart: 00-67-7702QTGRF- 19 Vaccine ( season)COVID-19 Vaccine ( season)[facility] CenterGlobal RallyCross Championship [facility] HospitalStart: 77-21-2021Codvxmyya vaccinationInfluenza VaccineProSelect Medical [facility] SystemStart: 10-13-2023 End: 48-39-5558WJ Thyroid glandUltrasound thyroid Imaging Routine Goiter Expected: 10/13/2023, Expires: 10/12/2024[facility] Work Phone: Comment on above:Expected: 10/13/2023, Expires: 10/12/2024Start: 10-13-2023 End: 30-53-9874Xydkqni encounter fnwocxakx45/10/2024 8:40 AM EDT Office Visit [facility] [address] [place] [address] Gomez Green, GENERAL OFFICE ASSISTANT-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 [address] [place] [address] [facility] Medicine - Family MedicineStart: 09-15-2023 End: 83-59-5499Gydaqxh encounter oiozxevuq18/13/2024 9:30 AM EDT Office Visit [facility] [address] [place] [id number] Teri Perez, DO [address] [place], [place] [address] [facility]stetric[facility]/GynecologyStart: 09-01-2023 End: 40-14-5927Wfsepbu encounter vqgdtieft75/28/2024 8:30 AM EST Office Visit [facility] [address] [place] [address] Gomez Green, GENERAL OFFICE ASSISTANT-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 [address] [place] [address] [facility] Medicine - Family MedicineStart: 08-31-2023 End: 44-77-1370Xddcoqtwmwcud procedure, preparation of smear, genital sourcePap Smear Pathology and Cytology Routine Cervical smear, as part of routine gynecological examination Expected: 08/31/2023 (Approximate), Expires: 08/31/2024ProFlower HospitalLumos Labs [facility] SystemComment on above:Expected: 08/31/2023 (Approximate), Expires: 08/31/2024Start: 08-31-2023 End: 20-53-5287URR Breast - bilateral screeningMammography screening bilateral with CAD Imaging Routine Screening mammogram for breast cancer Expected: 08/31/2023, Expires: 08/31/2024[facility] Work Phone: Comment on above:Expected: 08/31/2023, Expires: 08/31/2024Start: 08-31-2023 End: 43-82-1135DX Pelvis transabdominal and transvaginalUltrasound pelvic with transvaginal Imaging Routine History of uterine fibroid Menorrhagia with regular cycle Expected: 08/31/2023, Expires: 08/31/2024[facility] SystemComment on above:Expected: 08/31/2023, Expires: 08/31/2024Start: 08-31-2023 End: 37-69-4083Jxscuyu encounter olkcyshuz35/27/2024 1:00 PM EST Office Visit [facility] [place] [address] Teri Perez DO [address] [place] [address] [facility] Obstetrics/GynecologyStart: 86-44-8466MLpV,Tdap and Td Vaccines (2 - Td or Tdap) DTaP,Tdap and Td Vaccines (2 - Td or Tdap)[facility] SystemStart: 31-08-3151GIcS/Tdap/Td vaccine (2 - Td or Tdap)DTaP/Tdap/Td vaccine (2 - Td or Tdap)[facility] HospitalStart: 49-64-1873Ixlhwxn vaccinationTETANUSAvita [facility] Hospital SystemStart: 13-79-1557Gcuzpccqw vaccinationInfluenza VaccineAdena Health System SystemStart: 36-26-9097Ypkgucavz for malignant neoplasm of breastBreast cancer screenBon [facility] & Brentwood HospitalStart: 07-16-2022 End: 41-17-6404Wootuwh encounter gesaaydvy92/12/2023 Office Visit Rheumatology Mor Harmon, Loreta Mann, DO [address] [phone] [facility] RheumatologyStart: 06-23-2022 End: 60-57-7254V-reactive proteinC REACTIVE PROTEIN Lab Routine History of Sjogren's disease Hyperpigmentation of skin of cheek Xerostomia Dry mouth Dry eyes Telangiectasia of face Hypothyroidism, unspecified type Hyperglycemia Based ow's disease Keratoconjunctivitis sicca Osteoarthritis of right hand, 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, unspecified osteoarthritis type Lumbar degenerative disc disease Expected: 06/23/2022 (Approximate), Expires: 07/10/2022[facility] JacksonComment on above:Expected: 06/23/2022 (Approximate), Expires: 07/10/2022Start: 06-23-2022 End: 71-15-6487I3 COMPLEMENTC3 COMPLEMENT Lab Routine History of Sjogren's disease Hyperpigmentation of skin of cheek Xerostomia Dry mouth Dry eyes Telangiectasia of face Hypothyroidism, unspecified type Hyperglycemia 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, 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, unspecified osteoarthritis type Lumbar degenerative disc disease Expected: 06/23/2022 (Approximate), Expires: 07/10/2022[facility] SystemComment on above:Expected: 06/23/2022 (Approximate), Expires: 07/10/2022Start: 06-23-2022 End: 69-63-3921U3 COMPLEMENTC4 COMPLEMENT Lab Routine History of Sjogren's disease Hyperpigmentation of skin of cheek Xerostomia Dry mouth Dry eyes Telangiectasia of face Hypothyroidism, unspecified type Hyperglycemia 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, 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, unspecified osteoarthritis type Lumbar degenerative disc disease Expected: 06/23/2022 (Approximate), Expires: 07/10/2022[facility] SystemComment on above:Expected: 06/23/2022 (Approximate), Expires: 07/10/2022Start: 06-23-2022 End: 67-93-7273TJOI Lab Routine History of Sjogren's disease Hyperpigmentation of skin of cheek Xerostomia Dry mouthDry eyes Telangiectasia of face Hypothyroidism, unspecified type Hyperglycemia Basedow's disease Ker atoconjunctivitis sicca Osteoarthritis of right hand, 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, unspecified osteoarthritis type Lumbar degenerative disc disease Expected: 06/23/2022 (Approximate), Expires: 07/10/2022[facility] JacksonComment on above:Expected: 06/23/2022 (Approximate), Expires: 07/10/2022Start: 06-23-2022 End: 93-12-3922Ofkesqcn blood count with white cell differential, automatedCBC, EDIF, PLATELET Lab Routine History of Sjogren's disease Hyperpigmentation of skin of cheek Xerostomia Dry mouth Dry eyes Telangiectasia of face Hypothyroidism, unspecified type Hyperglycemia 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, 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, unspecified osteoarthritis type Lumbar degenerative disc disease Expected: 06/23/2022 (Approximate), Expires: 07/10/2022[facility] JacksonComment on above:Expected: 06/23/2022 (Approximate), Expires: 07/10/2022Start: 06-23-2022 End: 92-95-0748Xtjfmlysuuecv metabolic 2000 panel - Serum or PlasmaCOMPREHENSIVE METABOLIC PANEL Lab Routine History of Sjogren's disease Hyperpigmentation of skin ofcheek Xerostomia Dry mouth Dry eyes Telangiectasia of face Hypothyroidism, unspecified type Hyperglycemia 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, unspecified osteoar thritis type Osteoarthritis of left foot, unspecified osteoarthritis type Lumbar degenerative disc disease Expected: 06/23/2022 (Approximate), Expires: 07/10/2022[facility]Comment on above:Expected: 06/23/2022 (Approximate), Expires: 07/10/2022Start: 06-23-2022 End: 77-74-2076LCHBKYPQOQQZL RATE, AUTOMATEDSEDIMENTATION RATE, AUTOMATED Lab Routine History of Sjogren's disease Hyperpigmentation of skin ofcheek Xerostomia Dry mouth Dry eyes Telangiectasia of face Hypothyroidism, unspecified type Hyperglycemia 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, 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, unspecified osteoarthritis type Lumbar degenerative disc disease Expected: 06/23/2022 (Approximate), Expires: 07/10/2022[facility] SystemComment on above:Expected: 06/23/2022 (Approximate), Expires: 07/10/2022Start: 06-23-2022 End: 70-49-8171Twkhubcrbm dipstick W Reflex Microscopic panel - UrineURINE MICROSCOPIC Fluids Routine History of Sjogren's disease Hyperpigmentation of skin of cheek Xerostomia Dry mouth Dry eyes Telangiectasia of face Hypothyroidism, unspecified type Hyperglycemia 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, 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, unspecified osteoarthritis type Lumbar degenerative disc disease Expected: 06/23/2022 (Approximate), Expires: 07/10/2022[facility] SystemComment on above:Expected: 06/23/2022 (Approximate), Expires: 07/10/2022Start: 06-23-2022 End: 85-92-8645Pbqskiyuls, reagent strip without microscopyURINALYSIS, MACRO Fluids Routine History of Sjogren's disease Hyperpigmentation of skin of cheek Xerostomia Dry mouth Dry eyes Telangiectasia of face Hypothyroidism, unspecified type Hyperglycemia 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, 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, unspecified osteoarthritis type Lumbar degenerative disc disease Expected: 06/23/2022 (Approximate), Expires: 07/10/2022[facility] SystemComment on above:Expected: 06/23/2022 (Approximate), Expires: 07/10/2022Start: 11-08-2021 Screening for malignant neoplasm of breastWood County Hospitalca Health SystemStart: 09-05-2021 End: 98-51-2787Ixhxvwrwvbic consultation with jerrfhg3709/05/2021 Telemedicine Neurology Stanton Kohler F, DO [address] [place] [address] [facility] NeurologyStart: 63-25-1247Rqcqbfdoh vaccinationINFLUENZA VACCINE (#1)[facility] Hospitaltart: 2020 ColonoscopyCOLORECTAL CANCER SCREENING DISCUSSIONDunlap Memorial Hospitaltart: 17-74-0774Hqplcixrv for malignant neoplasm of colonAtrium Health Providencetart: 02-76-6264Fjfrchno screeningDiabetic retinal examBon [facility] HospitalStart: 69-86-8089Cicdjgm lipid profileLIPID SCREENINGDunlap Memorial Hospitaltart: 20-92-3044Odelj panelLIPID SCREENINGDunlap Memorial Hospitaltart: 2015 Screening mammographyMAMMOGRAM SCREENING DISCUSSIONDunlap Memorial Hospitaltart: 04-84-7950Rrfuvkkrm for malignant neoplasm of cervixSentara Careplex Hospital Start: 58-45-9220Ywgfqyual for malignant neoplasm of cervixMercy Health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 Historysjogren syndromeMedical Historymix connective tissue disease [employer] Other InstructionsNot on filedocumented in this encounter [facility] on filedocumented in this encounter [facility]ructionsNot on filedocumented in this encounter [facility]* Attachments The following attachments cannot be sent through Care Everywhere. * Heavy periods ([place]) [facility]* Attachments The following attachments cannot be sent through Care Everywhere. * Hypothyroidism (underactive thyroid) ([place]) * Carb counting for adults with diabetes ([place]) * Diabetes and diet ([place]) * Heart Disease in Diabetics ([place]) * How to Keep Track of Your Blood Sugar ([place]) * Cancer screening ([place]) documented in this [facility] SystemInstructions* Attachments The following attachments cannot be sent through Care Everywhere. * Metformin, ADULT ([place]) * Diabetes and diet ([place]) documented in this [facility] Dynamics SystemInstructionsNot on file documented in this encounter[facility] SystemInstructionsNot on file documented in this encounterProSelect [facility]ructions* Attachments The following attachments cannot be sent through Care Everywhere. * Calcium and vitamin D for bone health ([place]) * Galactorrhea ([place]) documented in this [facility] SystemInstructionsNot on file documented in this encounter[facility] SystemInstructionsNot on file documented in this encounter[facility] SystemInstructionsNot on file documented in this encounter[facility] SystemInstructionsNot on file documented in this encounter[facility] SystemInstructionsNot on file documented in this encounterAdena Health System SystemReason for referral (narrative)* Consultation (Routine) - [...] disc disease Mor Harmon, Loreta Mann, DO [address] [place] [address] Stanton Kohler, DO [address] [place] [address] Referral IDStatusReasonStart DateExpiration DateVisits RequestedVisits [id number] Request/ [facility] (narrative)* Consultation (Routine) - Pending ReviewSpecialtyDiagnoses / ProceduresReferred By ContactReferred To ContactDermatology Diagnoses Nail fungus Hyperpigmentation Gomez Green APRN-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 [address] [place] [address] Michael Mata, DO [address] [place] [address] Referral IDStatusReasonStwestfield DateExpiration DateVisits RequestedVisits [id number] Review Specialty Services Required * Consultation (Routine) - Pending ReviewSpecialtyDiagnoses / ProceduresReferred By ContactReferred To ContactEndocrinology Diagnoses Acquired hypothyroidism Graves' disease Gomez Green GENERAL OFFICE ASSISTANT-LYNNETTE [address] [place] [address] [facility] [address] [address] Referral IDStatusReasonSkwentna DateExpiration DateVisits RequestedVisits [id number] Review Specialty Services Required [facility] (narrative)No reason for referral information availableC[facility] Work Phone: Reason for visit Narrative* Imaging (Routine) - Closed SpecialtyDiagnoses / ProceduresReferred By ContactReferred To ContactRadiology Diagnoses Lumbar radiculopathy Procedures MRI LUMBAR SPINE WO CONTRAST Shelley Clancy MD [address] [place] [address] Phone: tel: fax: Referral IDStatusReasonStart DateExpiration DateVisits RequestedVisits [id number]/30/20255/ [facility] for visit Narrative* Imaging (Routine) - Not Required - RTASpecialtyDiagnoses / ProceduresReferred By ContactReferred To ContactRadiology Diagnoses Thyroid nodule Procedures US THYROID Shelley Clancy MD [address] [place] [address] Phone: tel: fax: Referral IDStatusReasonStart DateExpiration DateVisits RequestedVisits [id number] Required - RTA [facility] for visit Narrative* Imaging (Routine) - Open SpecialtyDiagnoses / ProceduresReferred By ContactReferred To ContactRadiology Diagnoses History of uterine fibroid Procedures US PELVIS COMPLETE NON-OB TRANSABD/TRANSVAG W DOPPLER US PELVIS COMPLETE Jessica Pete APRN - NP [address] [address] Phone: tel: fax: Referral IDStatusReasonStart DateExpiration DateVisits RequestedVisits [id number]/4/20256/ [facility] for visit Narrative* Imaging (Routine) - Open SpecialtyDiagnoses / ProceduresReferred By ContactReferred To ContactRadiology Diagnoses Nipple discharge Procedures US BREAST LIMITED RIGHT Jessica Pete APRN - NP [address] [address] Phone: tel: fax: Referral IDStatusReasonStart DateExpiration DateVisits RequestedVisits [id number] [facility] [employer] CompanyCJW Medical CenterReason for visit Narrative* Other (Routine) - Closed SpecialtyDiagnoses / ProceduresReferred By ContactReferred To ContactRadiology Diagnoses Nipple discharge Procedures DELFINO HIPOLITO DIGITAL DIAGNOSTIC BILATERAL Jessica Pete, PAULO - SECOND FACING BASTER [address] [address] Phone: tel: fax: Referral IDStatusReasonStart DateExpiration DateVisits RequestedVisits [id number]/4/20256/4/202611 [facility] [employer] CompanyCJW Medical Center Summary Purpose Family History Relationship Condition Age at Onset Recorded Date/T estefania father Unknown motherHypertensionUnknownDiabetes mellitusUnknownHistory of strokeUnknown Advance Directives Date ActivatedDate InactivatedComments10/16/2024 10:49 PMDate ActivatedDate InactivatedComments10/16/2024 10:49 PM10/18/2024 4:14 PMDate ActivatedDate InactivatedComments10/16/2024 10:49 PM10/18/2024 4:14 PMTypeDate RecordedPatient RepresentativeExplanationACP-Advance Directive12/21/2024 1:07 PMDPOAHC and Living Will [id number] ActivatedDate InactivatedComments12/21/2024 1:16 AMDate ActivatedDate InactivatedComments10/16/2024 10:49 PM10/18/2024 4:14 PMName RelationshipHealthcare Agent RelationshipCommunicationArowen RettigChildPrimary Decision Maker* Silus RettigChildSecondary Decision Maker* Date ActivatedDate InactivatedComments12/21/2024 1:16 AM12/21/2024 3:53 PMName RelationshipHealthcare Agent RelationshipCommunicationArowen RettigChildPrimary Decision Maker* Silus RettigChildSecondary Decision Maker* NameRelationshipHealthcare Agent RelationshipCommunicationArowen RettigChild Primary Decision Maker* Silus RettigChildSecondary Decision Maker* TypeDate RecordedPatient RepresentativeExplanationACP-Advance Directive12/21/2024 1:07 PMDPOAHC and Living Will [id number] ActivatedDate InactivatedComments 12/21/2024 1:16 AM12/21/2024 3:53 PMDate [...] previously seen by your for migrainesReasonOnset DateCommentsPreventative Xivzpdhwq04/26/2024ReasonCommentsnew patientReasonCommentsAnnual ExamPap: 3 years agoMam: 11/08/20Periods: Regular [...] unspecified type Becky Avila MD [address] [place] [address] Phone: tel: fax: [facility] [address] [place] [address] Referral IDStatusReasonStart DateExpiration DateVisits RequestedVisits [id number] DateCommentsTransition Of Care10/19/2024Reason Onset LsavAynygqflQukvdvq69/13/2025ReasonCommentsAltered Mental StatusPatient states that for the past few days she has been having episodes of confusion shakiness. Was told by her Dr that she may be having mini strokes.Patient is a diabetic and does have some concern for blood sugar issues causing the symptoms. SpecialtyDiagnoses / ProceduresReferred By ContactReferred To Contact Diagnoses Type 2 diabetes mellitus with hyperglycemia (HCC) Ann Herron MD [address] [place] [address], [facility] [place] [address] Phone: tel: fax: [facility] [address] [place] [address] Referral IDStatusReasonSkwentna DateExpiration DateVisits RequestedVisits [id number] PatientLast seen in Jul.Reason CommentsHRTReasonCommentsThyroid ProblemNEW NODULE REF/LAB/USSpecialtyDiagnoses / ProceduresReferred By ContactReferred To ContactEndocrinology Diagnoses Nontoxic single thyroid nodule Procedures NC OFFICE/OUTPATIENT NEW MODERATE MDM 45 MINUTES Ashlyn Rosa MD [address], [facility], [place] [address] Phone: tel: fax: Meghna Christianson MD [address] [facility] [address] [place] [address] Phone: tel: fax: Referral IDStatusReasonStart DateExpiration DateVisits RequestedVisits [id number]/18/202512/ Care Teams (unrecognized sec tion and content) Team MemberRelationshipSpecialtyStart DateEnd Date Office Of Gabe Jolly Md Other [address] [place] [facility] [place] [address] PCP - General10/29/16Team MemberRelationshipSpecialtyStart DateEnd Date Office Of Gabe Jolly Md Other [address] [place] [facility] [place] [address] PCP - General10/29/16Te MemberRelationshipSpecialtyStart DateEnd Date Gomez Green GENERAL OFFICE ASSISTANT-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 [address] [place] [address] PCP - GeneralInternal Medicine08/27/23Team MemberRelationshipSpecialtyStart Date End Date Gomez Green GENERAL OFFICE ASSISTANT-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 [address] [place] [address] PCP - GeneralInternal Medicine08/27/23Team MemberRelationshipSpecialtyStart Date End Date Gomez Green GENERAL OFFICE ASSISTANT-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 [address] [place] [address] PCP - GeneralInternal Medicine08/27/23Team MemberRelationshipSpecialtyStart Date End Date Gomez Green GENERAL OFFICE ASSISTANT-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 [address] [place] [address] PCP - GeneralInternal Medicine08/27/23Team MemberRelationshipSpecialtyStart Date End Date Gomez Green GENERAL OFFICE ASSISTANT-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 [address] [place] [address] PCP - GeneralInternal Medicine08/27/23Team MemberRelationshipSpecialtyStart Date End Date Gomez Green [facility]ED[facility] [address] [place] [address] PCP - GeneralInternal Medicine08/27/23Team MemberRelationshipSpecialtyStart Date End Date Gomez Green [facility]ED[facility] [address] [place] [address] PCP - GeneralInternal Medicine08/27/23Team MemberRelationshipSpecialtyStart Date End Date Gomez Green [facility] [address] [place] [address] PCP - GeneralFamily Medicine10/17/24Team MemberRelationshipSpecialtyStart DateEnd Date Gomez Green GENERAL OFFICE ASSISTANT [facility] [address] [place] [address] PCP - GeneralFamily Medicine10/17/24Team MemberRelationshipSpecialtyStart DateEnd Date Gomez Green GENERAL OFFICE ASSISTANT [facility] [address] [place] [address] PCP - GeneralFamily Medicine10/17/24Team MemberRelationshipSpecialtyStart DateEnd Date Gomez Green [facility] [address] [place] [address] PCP - GeneralFamily Medicine10/17/24Team MemberRelationshipSpecialtyStart DateEnd Date Gomez Green, GENERAL OFFICE ASSISTANT - 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 [address] [place] [address] [facility] - [facility]10/17/24Team MemberRelationshipSpecialtyStart DateEnd Date Gomez Green, GENERAL OFFICE ASSISTANT - 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 [address] [place] [address] PCP - Generalmily Medicine10/17/24Team MemberRelationshipSpecialtyStart DateEnd Date Gomez Green, GENERAL OFFICE ASSISTANT - 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 [address] [place] [address] PCP - Generalmi Medicine10/17/24Team MemberRelationshipSpecialtyStart DateEnd Date Shelley Clancy MD [address] [place] [address] PCP - General12/21/24Team MemberRelationshipSpecialtyStart DateEnd Date Shelley Clancy MD [address] [place] [address] PCP - General12/21/24Team MemberRelationshipSpecialtyStart DateEnd Date Shelley Clancy MD [address] [place] [address] PCP - General12/21/24Team MemberRelationshipSpecialtyStart DateEnd Date Office Of Gabe Jolly Md Other [address] [place] [address] PCP - General10/29/16Team MemberRelationshipSpecialtyStart DateEnd Date Ashlyn Rosa MD [address] [place] [address] PCP - [facility]01/10/25Team MemberRelationshipSpecialtyStart DateEnd Date Ashlyn Rosa MD [address] [place] [address] PCP - [facility]01/10/25Team MemberRelationshipSpecialtyStart DateEnd Date Ashlyn Rosa MD [address] [place] [address] PCP - [facility]01/10/25Team MemberRelationshipSpecialtyStart DateEnd Date Shelley Clancy MD [address] [place] [address] PCP - General12/21/24Team MemberRelationshipSpecialtyStart DateEnd Date Ashlyn Rosa MD [address] [place] [address] PCP - [facility]01/10/25Team MemberRelationshipSpecialtyStart DateEnd Date Ashlyn Rosa MD [address] [place] [address] PCP - [facility]01/10/25 Team Status: Active Member Role/Relationship Status Dates Lenora Hoff SECOND FACING BASTER-C Primary Care Provider Active Team Status: Inactive Member Role/Relationship Status Dates Becky Cornejo DO Attending Provider Active Start: April 26, 2025 End: April 26, 2025Lenora Hoff NP-[facility] Care ProviderActiveStart: April 26, 2025 End: April 26, 2025 INFORMATION SOURCE (unrecogn ized section and content) DATE CREATED AUTHOR 10/20/2022 [facility] DATE CREATED AUTHOR AUTHOR'S ORGANIZ ATION 10/15/2023 [facility] DATE CREATED AUTHOR AUTHOR'S ORGANIZ ATION 01/14/2025 [facility] DATE CREATED AUTHOR AUTHOR'S ORGANIZ ATION 02/01/2025 [facility] DATE CREATED AUTHOR AUTHOR'S ORGANIZ ATION 02/03/2025 [facility] DATE CREATED AUTHOR AUTHOR'S ORGANIZ ATION 02/11/2025 [facility] DATE CREATED AUTHOR AUTHOR'S ORGANIZ ATION 04/17/2025 [facility] EPIC Ordered Prescriptions (unrec ognized [...] - Comment: not present on arrival to [facility]) sodium chloride flush 0.9 % injection 10 [...] BE BASED ON THE PRIMARY CLINICAL RECORDS. [employer] provides no warranty or guarantee of the accuracy or completeness of information in this document.
== END 2025-06-15 15:12 | disposition home or self-care (01) ==
PROVIDERS: PCP Nurse Practitioner Family; Visit Provider Internal Medicine
DX: E11.65 Type 2 diabetes mellitus with hyperglycemia (principal)
CPT/HCPCS: 36415; 82043; 82570; 84100; 84681

== ENCOUNTER 2025-06-15 15:18 | Outpatient (OUT) | payer MEDICAID, SELFPAY ==
--- OUTSIDE RECORDS SUMMARY | 2025-06-15 15:25 | XMS_ITS | CCD ---
Author Organization [facility] Care Team Providers Care Finance Administrator Name Role Phone [facility] Other Primary Car e Provider Lenora Whitehead Unavailable [facility], [facility] TRAMMELL Primary Care Unavailable MARKER ., [...] NORMA, GOMEZ L Primary Care Unavailable Norma SEWER PIPE CLEANER-FULL DECATOR OPERATOR, Gomez L Primary Care Provider Norma SEWER PIPE CLEANER - FULL DECATOR OPERATOR, Gomez L Primary Care Provider Unavailable Primary Care Provider Unavailabl e Shelley Clancy MD Primary Care Provider [phone] [facility] Other Primary [...] Medications MedicationDrug Class(es)DatesSig (Normalized)Sig (Original)Acetaminophen (20 sources)Start: 98-54-0869eqncawebmfyms (TYLENOL) tablet 650 mgStart: 92-03-2004axziutdzptjcp (TYLENOL) tablet 650 mgStart: 17-32-1737zkvp 1 tablet by mouth every six hours as needed for painacetaminophen (TYLENOL EXTRA STRENGTH) 500 mg tablet Take 1 tablet (500 mg total) by mouth every 6 (six) hours as needed for pain. 30 tablet 07/12/2022 Activeblood-glucose meter misc (20 sources)Start: 83-59-8008wudcn-glucose meter misc Use to check blood sugar once daily. 1 each 09/01/2023 ActiveStart: 83-46-0258ipktr-glucose meter misc Use to check blood sugar once daily. 1 each 0 09/01/2023 Activeboric acid 600 mg suppository (6 sources)Start: 01-12-2025 End: 83-51-3319irptr acid 600 mg suppository Indications: Kiesha glabrata infection Insert 1 suppository into thevagina nightly for 14 days. 14 suppository 01/12/2025 01/26/2025 ActiveStart: 12-12-2024 End: 08-25-1487ldfbh acid 600 mg suppository Indications: Kiesha glabrata infection , Vaginal yeast infection Insert 1 suppository into the vagina nightly for 14 days. 14 suppository 12/12/2024 12/26/2024 ActiveStart: 12-07-2024 End: 61-07-7508rwgrm acid 600 mg suppository Indications: Kiesha glabrata infection , Vaginal yeast infection Insert 1 suppository into the vagina nightly for 14 days. 14 suppository 12/07/2024 12/12/2024 Discontinued (Reorder)Start: 12-07-2024 End: 64-71-7752cdpis acid 600 mg suppository Indications: Kiesha glabrata infection , Vaginal yeast infection Insert 1 suppository into the vagina nightly for 14 days. 14 suppository 12/07/2024 12/21/2024 Active0.5 ml dulaglutide 1.5 mg/ml auto-injector (12 sources)GLP-1 Receptor AgonistStart: 10-68-7620snccno 0.75 mg by subcutaneous injection every week0.75 mg, SubCUTAneous, WEEKLY, First dose (after last modification) on 12/24/24 at 0900, Until Discontinued, On Sundays Patient using own home medicationsStart: 68-24-5754KPXRZKBOO 0.75 MG/0.5ML SOAJ SC injection Inject 0.5 mLs into the skin once a week Sundays12/08/2024 Active Start: 79-41-4834LWNAYBNZO 0.75 mg/0.5 mL pen injector Inject 0.5 mL (0.75 mg total) under the skin every 7 days. 12/08/2024 ActiveDULoxetine 60 mg delayed release oral capsule (1 source)Serotonin and Norepinephrine Reuptake InhibitorStart: 21-30-3564ykdf 1 capsule by mouth once dailyDULoxetine (CYMBALTA) 60 MG extended release capsule Take 1 capsule by mouth daily 11/14/2024 Activeempagliflozin 10 mg oral tablet (20 sources)Sodium-Glucose Cotransporter 2 InhibitorStart: 61-22-3142TVZLNAVHA 10 mg tablet tablet 11/14/2024 Active0.4 ml enoxaparin sodium 100 mg/ml prefilled syringe (2 sources)Low Molecular Weight HeparinStart: 98-47-7668Ckgnh: 99-01-9840stxqvh 40 mg by subcutaneous injection once daily40 mg, SubCUTAneous, DAILY, First dose on Wed10/17/24 at 0900, Until Discontinued, Indication of Use: Prophylaxis-DVT/PEfurosemide 40 mg oral tablet (7 sources)Loop DiureticStart: 14-72-8121Tudqo: 10-18-2024 End: 90-80-2621tplo 1 tablet by mouth once dailyfurosemide (LASIX) 40 MG tablet Take 1 tablet by mouth daily 30 tablet 10/19/2024 ActiveStart: 90-72-224244 mg, IntraVENous, ONCE, 1 dose, On Wed10/17/24 at 0900glipiZIDE 5 mg oral tablet (6 sources)SulfonylureaStart: 68-68-1859Bphan: 10-18-2024 End: 60-79-2748zbau 0.5 tablet by mouth once daily in the morningglipiZIDE (GLUCOTROL) 5 MG tablet Take 0.5 tablets by mouth every morning 15 tablet 10/18/2024 ActiveStart: 13-48-9507skil 2.5 mg by mouth once daily in the morning 2.5 mg, Oral, EVERY MORNING, First dose on Wed10/17/24 at 0900, Until Discontinuedibuprofen 800 mg oral tablet (20 sources)Nonsteroidal Anti-inflammatory DrugStart: 99-03-9957ocnt 1 tablet by mouth every eight hours [...] 100 unt/ml injectable solution (20 sources)Insulin AnalogStart: 43-35-6815hwrwgal glargine (LANTUS) 100 UNIT/ML injection vial Inject 40 Units into the skin daily States 40-50 10 mL 12/21/2024 ActiveStart: 35-23-8572cudvem 40 [IU] by subcutaneous injection once daily40 Units, SubCUTAneous, DAILY, First dose on Susy 12/21/24 at 0145, Until DiscontinuedStart: 64-80-2586CHNYMB SOLOSTAR U-100 INSULIN 100 unit/mL (3 mL) insulin pen 11/14/2024 ActiveStart: 10-18-2024 End: 71-60-5804pbfhgzu glargine (LANTUS) 100 UNIT/ML injection vial Inject 25 Units into the skin 2 times daily 10mL 10/18/2024 12/21/2024 DiscontinuedStart: 84-78-1983rcadls 25 [IU] by subcutaneous injection twice daily25 Units, SubCUTAneous, 2 TIMES DAILY, First dose on 10/16/24 at 2315, Until Discontinuedinsulin glulisine, human (2 sources)Insulin Analoginject 30 [IU] by subcutaneous injection once daily Insulin Glulisine (APIDRA SOLOSTAR SC) Inject 30 Units under the skin Daily ActiveInsulin Syringes, Disposable, U-100 1 ML MISC (11 sources)Start: 98-37-9847Umtiysk Syringes, Disposable, U-100 1 ML MISC 1 each by Does not apply route daily 100 each 10/18/2024 Activeinsulin, regular, human 100 unt/ml injectable solution (2 sources)InsulinStart: 10-18-2024 End: 80-47-2205gwyflvh regular (HUMULIN R;NOVOLIN R) 100 UNIT/ML injection Inject 25 Units into the skin 2 times daily (before meals) 10 mL 10/18/2024 11/17/2024 Activelevothyroxine sodium 0.075 mg oral tablet (20 sources)l-ThyroxineStart: 04-16-2025 End: 48-01-1421lmcw 1 tablet by mouth once dailylevothyroxine (Synthroid, Levoxyl) 75 MCG tablet Indications: Postablative hypothyroidism Take 1 tablet (75 mcg) by mouth Daily 90 tablet 1 04/16/2025 10/13/2025 ActiveStart: 10-19-2023 End: 94-57-7704dryl 1 tablet by mouth in the morninglevothyroxine (SYNTHROID, LEVOTHROID) 75 MCG tablet Take 1 tablet (75 mcg total) by mouth in the morning. 90 tablet 1 10/19/2023 01/29/2025 DiscontinuedStart: 09-01-2023 End: 07-15-7371nhzo 1 tablet by mouth in the morninglevothyroxine (SYNTHROID, LEVOTHROID) 50 MCG tablet Take 1 tablet (50 mcg total) by mouth in the morning. 30 tablet 1 09/01/2023 10/19/2023 Discontinued (Therapy completed)Start: 10-30-2020 End: 84-77-5639uedr 0.5 tablet by mouth once dailylevothyroxine (SYNTHROID, LEVOTHROID) 100 MCG tablet Indications: Graves disease , Acquired hypothyroidism Take 0.5 tablets (50 mcg total) by mouth daily. 30 tablet 2 10/30/2020 09/01/2023 Discontinued (Therapy completed)Start: 01-18-2015 End: 26-89-2542wtaagfsirooid (SYNTHROID) 150 MCG tablet 3 01/18/2015 10/18/2024 Discontinued (Stop Taking at Discharge)take 1 tablet by mouth once daily levothyroxine 300 MCG tablet Take 300 mcg by mouth daily. ActivemetroNIDAZOLE 250 mg oral tablet (9 sources)Nitroimidazole AntimicrobialStart: 10-17-2024 End: 68-76-7413352 mg, Oral, 2 TIMES DAILY, 6 doses, First dose on Wed10/17/24 at 0945, Last dose on Wed10/19/24 at 1400, Antimicrobial Indications: Other, Other Abx Indication: trich End: 84-47-8976qaynxTNLBHDIA (FLAGYL) 250 MG tablet Take 1 tablet by mouth 2 times daily at 0800 and 1400 3 days left to finish 12/21/2024 Discontinued (Stop Taking at Discharge)24 hr nicotine 0.875 mg/hr transdermal system (20 sources)Cholinergic Nicotinic AgonistStart: 69-51-4233brvpr 1 dose transdermal route every twenty-four hours [...] to facility policy for handling and disposal.Start: 90-59-7328gmkti 1 dose transdermal route once daily at [...] ODT) disintegrating tablet 4 mg (2 sources)Start: 47-49-5191lizhffqwejy (ZOFRAN-ODT) disintegrating tablet 4 mg Start: 93-92-9673ddykgvkghdy (ZOFRAN-ODT) disintegrating tablet 4 mgpermethrin 50 mg/ml topical cream (1 source)PyrethroidStart: 76-85-8118Dlilkryfqm 5 % 1 application Externally Two times a Week Perform the treatment as directed, repeat in 3 days. Apr, Activepilocarpine hydrochloride 5 mg oral tablet (4 sources)Cholinergic Receptor AgonistStart: 27-59-7030xhue 1 tablet by mouth four times daily [...] 120 tablet 11 07/10/2021 ActiveStart: 11-12-2016 End: 01-29-5164pdpz 1 mg by mouth once dailypilocarpine 5 [...] tablet 3 11/12/2016 07/10/2021 Discontinuedpolyethylene glycol 3350 92886 mg powder for oral solution (2 sources)Osmotic LaxativeStart: 29-65-4611Xmvlw: 79-41-5934Ffsipftaa Chloride (5 sources)Start: 38-33-1739gjltfhudx chloride (KLOR-CON M) extended release tablet 40 mEqStart: 10-18-2024 End: 64-04-3010cuoj 1 tablet by mouth once daily at breakfastpotassium chloride (KLOR-CON M) 20 MEQ extended release tablet Take 1 tablet by mouth daily (with breakfast) 30 tablet 10/19/2024 11/18/2024 ActiveStart: 00-93-0797mxncsajdu chloride (KLOR-CON M) extended release tablet 40 mEqrOPINIRole 0.25 mg oral tablet (7 sources)Nonergot Dopamine AgonistStart: 07-25-2021 End: 82-14-5989xESQHPLrko (REQUIP) 0.25 mg tablet 1 po 2-3 hours before bed x 1 week then increase to 2 before bedif no SE 01/11/2025 Active Completed/Discontinued Medications MedicationDrug Class(es)DatesSig (Normalized)Sig (Original)cetirizine hydrochloride 10 mg oral tablet (1 source)Histamine-1 Receptor AntagonistStart: 05-11-2014 End: 52-40-5243yaex 1 tablet by mouth once dailycetirizine (ZYRTEC) 10 MG tablet Indications: Allergic rhinitis Take 1 tablet by mouth daily. 30 tablet 0 05/11/2014 10/17/2024 Discontinued (LIST CLEANUP)esomeprazole 20 mg / naproxen 500 mg delayed release oral tablet (1 source)Proton Pump Inhibitor, Nonsteroidal Anti-inflammatory DrugStart: 10-29-2016 End: 83-96-8597yicx 1 tablet by mouth twice daily as [...] mg oral tablet (2 sources)Histamine-2 Receptor AntagonistStart: 84-82-3468hprl 20 mg by mouth twice daily20 mg, Oral, 2 TIMES DAILY, First dose on Wed12/21/24 at 0145, Until DiscontinuedStart: 77-44-1325tgce 20 mg by mouth twice daily20 mg, Oral, 2 TIMES DAILY, First dose on Wed10/16/24 at 2315, Until Discontinuedfluticasone propionate 0.05 mg/actuat metered dose nasal spray (1 source)CorticosteroidStart: 05-11-2014 End: 36-08-2660qcbbskohlnc (FLONASE) 50 MCG/ACT nasal spray Indications: Allergic rhinitis 2 sprays by Nasal routedaily. 1 Bottle 0 05/11/2014 10/17/2024 Discontinued (LIST CLEANUP)insulin lispro 100 unt/ml injectable solution (2 sources)Insulin AnalogStart: 12-20-2024 End: 61-96-8966jivkxy 1 dose by subcutaneous injection once20 Units, [...] injection 75 mL (2 sources)Start: 12-20-2024 End: 45-60-5296yurj 1 dose intravenously once75 mL, IntraVENous, IMG ONCE PRN, 1 dose, Starting on Wed12/20/24 at 1933, Until Wed12/20/24 at 2040, OtherStart: 10-17-2024 End: 96-25-1313pwzn 1 dose intravenously once75 mL, IntraVENous, IMG ONCE PRN, 1 dose, Starting on Wed10/17/24 at 0935, Until Wed10/17/24 at 0952, Other loratadine 10 mg oral capsule (1 source) End: 77-86-2604ixaa 1 capsule by mouth once dailyLoratadine (CLARITIN) 10 MG CAPS Take 1 capsule by mouth daily 10/17/2024 Discontinued (LIST CLEANUP) meclizine hydrochloride 12.5 mg oral tablet (1 source)AntiemeticStart: 03-14-2014 End: 94-02-3978nqdd 1 tablet by mouth twice daily as needed for dizziness meclizine (ANTIVERT) 12.5 MG tablet Indications: BPPV (benign paroxysmal positional vertigo), unspecified laterality Take one (1) tablet by mouth twice a day as needed for dizziness 20 tablet 0 03/14/2014 10/17/2024 Discontinued (LIST CLEANUP)meloxicam 15 mg oral tablet (1 source)Nonsteroidal Anti-inflammatory DrugStart: 08-14-2013 End: 94-25-1135pmak 1 tablet by mouth once dailymeloxicam (MOBIC) 15 MG tablet Take 1 tablet by mouth daily. 30 tablet 3 08/14/2013 10/17/2024 Discontinued (LIST CLEANUP)metFORMIN hydrochloride 500 mg oral tablet (20 sources)BiguanideStart: 10-13-2023 End: 68-27-2879ekvr 1 tablet by mouth in the morning, then take 1 tablet by mouth at mealtimemetFORMIN (GLUCOPHAGE) 500 mg tablet Take 1 tablet (500 mg total) by mouth in the morning and 1 tablet (500 mg total) in the evening. Take with meals. 180 tablet 1 10/13/2023 01/30/2025 Discontinuedmethocarbamol 500 mg oral tablet (1 source)Muscle RelaxantStart: 08-14-2013 End: 26-04-9253ikfx 1 tablet by mouth three times daily as neededmethocarbamol (ROBAXIN) 500 MG tablet Take 1 tablet by mouth 3 times daily as needed. 40 tablet 3 08/14/2013 10/17/2024 Discontinued (LIST CLEANUP)methylPREDNISolone 4 mg oral tablet (1 source)CorticosteroidStart: 04-07-2017 End: 05-68-2503phieeiPPBFRMRbkvdc 4 MG Tab Medrol dos pack- as directed 21 tablet 0 04/07/2017 07/10/2021 Discontinuednaratriptan 2.5 mg oral tablet (1 source)Serotonin-1b and Serotonin-1d Receptor AgonistStart: 04-07-2017 End: 06-70-9539fbtdgctrcxx (AMERGE) 2.5 MG Tab 1 po prn headache max 5mg/day; may repeat in 4 hr x1 8 tablet 1 04/07/2017 07/10/2021 Discontinuedondansetron 4 mg disintegrating oral tablet (1 source)Serotonin-3 Receptor AntagonistStart: 07-12-2022 End: 74-41-4806aeft 1 tablet by mouth every eight hours as needed for nausea ondansetron ODT (ZOFRAN ODT) 4 mg disintegrating tablet Dissolve 1 tablet (4 mg total) on tongue every 8 (eight) hours as needed for nausea for up to 10 doses. 10 tablet 0 07/12/2022 08/27/2023 Discontinued (Therapy completed)promethazine hydrochloride 25 mg oral tablet (1 source)PhenothiazineStart: 04-07-2017 End: 49-11-6365efmm 1 tablet by mouth every eight hours as needed for nausea promethazine 25 MG Tab tablet 1 po q 8 hours prn nausea 10 tablet 1 04/07/2017 07/10/2021 Umjdopgyujjz71 ml sodium chloride 9 mg/ml injection (10 sources)Start: 42-01-2105Qpxiq: 12-20-2024 End: 40-61-8398OzavmBZSbtx, at 100 mL/hr, CONTINUOUS, Starting on Wed12/21/24 at 0145, For 24 hours, Complete lastbag that is running at 24 hours and then saline lock IVStart: 10-17-2024 End: 27-12-2749MmcowLKTacm, at 50 mL/hr, CONTINUOUS, Starting on Wed10/17/24 at 0200Start: 04-90-7900Vfoob: mL, IntraVENous, EVERY 12 HOURS SCHEDULED (2 times per day), First dose on Wed10/16/24 at 2315, Until DiscontinuedStart: 95-35-7117yiwqaoiranf 250 mg oral tablet (16 sources)Allylamine AntifungalStart: 10-08-2023 End: 02-14-4966pfltyxvrymd (LamISIL) 250 mg tablet 10/08/2023 01/29/2025 Discontinued Problems Active Problems Problem ClassificationProblemDateDocumented DateEpisodic/ChronicAbdominal pain (2 sources)Pain in pelvis; Translations: [Pelvic and perineal pain]Onset: 574464-00-5185TynbjwtgEvomnou disorders (1 source)Feeling irritable; Translations: [Irritability and anger]12-20-2024 EpisodicCancer; other and unspecified primary (3 sources)History of gynecological disorder; Translations: [Personal history of other benign neoplasm]50-84-1261BeccplseMostpp; other and unspecified primary (2 sources)Personal history of other benign neoplasm; Translations: [Personal history of other benign neoplasm]Onset: 40-54-0534PhgnibekQveavvdlbcfua of surgical procedures or medical care (2 sources)Postablative hypothyroidism; Translations: [Postprocedural hypothyroidism]24-79-3285BntcsdhHgigpdzc mellitus with complications (20 sources)Type 2 diabetes mellitus with hyperglycemia; Translations: [Other specified diabetes mellitus with hyperglycemia]Onset: ChronicDisorders of lipid metabolism (2 sources)Hyperlipidemia, unspecified; Translations: [Hyperlipidemia]Onset: 697565-12-7171LhkbqlvXwrpgkja; including migraine (20 sources)Migraine; Translations: [Migraine, unspecified, not intractable, without status migrainosus]Onset: 715198-41-4959HuznvhmUbwvvthqhmcyz and screening for infectious disease (8 sources)Abnormal blood test; Translations: [Abnormal immunological finding in serum, unspecified]Onset: 10-29-2016 Resolved: 911056-97-8235DfodngoaWkklohtrxpyy; infection of eye (except that caused by tuberculosis or sexually transmitteddisease) (1 source)Keratoconjunctivitis sicca; Translations: [Keratoconjunctivitis sicca, not specified as Sjogren's, unspecified eye]Onset: hronic Inflammatory diseases of female pelvic organs (2 sources)Acute vaginitis; Translations: [Acute vaginitis]Onset: 12-06-2024 93-08-7521SigoadbcHrjwubi and fatigue (8 sources)Fatigue; Translations: [Other fatigue]Onset: EpisodicMenopausal disorders (2 sources)Menopausal syndrome; Translations: [Menopausal and female climacteric states]03-77-9316MxppanaNexwacyrm disorders (1 source)Menorrhagia; Translations: [Excessive and frequent menstruation with regular cycle]36-43-8456VoelyepNzdpkmp (10 sources)Onychomycosis; Translations: [Tinea unguium]51-47-7321Dnvsfpny Nonmalignant breast conditions (11 sources)Discharge from nipple; Translations: [Nipple discharge]Onset: 621941-13-8727AvnnikhrUlidqgiajog deficiencies (20 sources)Vitamin D deficiency; Translations: [Vitamin D deficiency, unspecified]Onset: 463915-16-5410ZrsspraBpnzbqyspqexwg (20 sources)Osteoarthritis of joint of right hand; Translations: [Primary osteoarthritis, right hand]Onset: 98-49-6167MtuqelzSwtjg aftercare (6 sources)Patient encounter status; Translations: [MCFP (current) use of non-steroidal anti-inflammatories (NSAID)]Onset: 10-29-2016 Resolved: 910270-35-0814JodeaklkGudnz connective tissue disease (2 sources)Other symptoms and signs involving the musculoskeletal system; Translations: [Other musculoskeletalsymptoms referable to limbs]Onset: 417716-15-3799VrxuuwhiSxssr nervous system disorders (20 sources)Tarsal tunnel syndrome; Translations: [Tarsal tunnel syndrome, unspecified lower limb]Onset: 442759-36-3144QuevgczYwdmm nervous system disorders (1 source)Polyneuropathy in diseases classified elsewhere; Translations: [Polyneuropathy in diseases classified elsewhere]Onset: 92-73-7650DkgmjiiLumpp nervous system disorders (2 sources)Polyneuropathy; Translations: [Polyneuropathy, unspecified]04-26-2025 ChronicOther nervous system disorders (1 source)Impaired cognition; Translations: [Other symptoms and signs involving cognitive functions and awareness]80-98-9290OddeyuzbUtfpn non-traumatic joint disorders (2 sources)Pain in left knee; Translations: [Pain in joint, lower leg]Onset: 593852-54-9485PtqlslffTfmtp nutritional; endocrine; and metabolic disorders (3 sources)Obese class II; Translations: [Obesity, unspecified]Onset: 07-10-2021 84-67-5623XgkqcdnUhjet nutritional; endocrine; and metabolic disorders (1 source)Peripheral neuropathy due to metabolic disorder; Translations: [Metabolic disorder, unspecified]56-96-3239PmnzdiqQpsmm nutritional; endocrine; and metabolic disorders (1 source)Metabolic disorder, unspecified; Translations: [Metabolic disorder, unspecified]Onset: 48-25-7096YvpckwvNqvyv screening for suspected conditions (not mental disorders or infectious disease) (6 sources)Encounter for screening mammogram for malignant neoplasm of breast; Translations: [Encounter for screening for malignant neoplasm of colon]Onset: 510287-63-8904OoffigjgJrrzy upper respiratory disease (20 sources)Allergic rhinitis; Translations: [Allergic rhinitis, unspecified] Onset: 787853-85-6080LqmytbnSqndsbxh codes; unclassified (1 source)Edema; Translations: [Edema, unspecified]86-21-2577Zwinlnkv Spondylosis; intervertebral disc disorders; other back problems (20 sources)Degeneration of lumbar intervertebral disc; Translations: [Other intervertebral disc degeneration, lumbar region]Onset: 82-90-8470Qqqawhp Substance-related disorders (4 sources)Smoker; Translations: [Nicotine dependence, unspecified, uncomplicated]93-70-3233GapujjhGdwzixim lupus erythematosus and connective tissue disorders (20 sources)Sjogren's syndrome; Translations: [Sicca syndrome, unspecified] Onset: 06-14-2015 Resolved: 08-90-4451AqeitxiEamtton disorders (20 sources)Hypothyroidism; Translations: [Hypothyroidism, unspecified]Onset: 76-90-3257YjtmibdSolwehxvribx (1 source)High Blood Sugar - SymptomaticOnset: 89-35-6996Bgxtueznqeko (1 source)EMSOnset: 98-10-2889Vwssokfbgkkk (1 source)HRTOnset: 08-99-1741Xcqhreglpoqw (1 source)Annual ExamOnset: 62-59-9097Ebavx infection (2 sources)COVID-19; Translations: [Disease caused by 2018-nCoV]Onset: 03-19-2022 Past or Other Problems Problem ClassificationProblemDateDocumented DateEpisodic/ChronicAllergic reactions (20 sources)Allergic disorder; Translations: [Allergy, unspecified, initial encounter]Onset: 841010-47-1330ExdhduvxMekzyk of cervix (20 sources)Malignant tumor of cervix; Translations: [Malignant neoplasm of cervix uteri, unspecified]Onset: 10-29-2016 Resolved: 197479-78-1712ZeikjazCqnfjf of cervix (1 source)History of malignant neoplasm of cervix; Translations: [Personal history of malignant neoplasm of cervix uteri]21-33-8489ZfpkjzlsEqhvzhuv mellitus without complication (20 sources)Hyperglycemia; Translations: [Hyperglycemia, unspecified]Onset: 63-83-0274QkxompehAgvgmkuo of mouth; excluding dental (8 sources)Xerostomia; Translations: [Disturbances of salivary secretion]Onset: 28-75-1813CkssejhvOcbu disorders (20 sources)Mood disordersOnset: 09-01-2023 Resolved: Nausea and vomiting (4 sources)Nausea; Translations: [NAUSEA]Onset: 56-27-0431EhjkqutgKfquo aftercare (3 sources)Drug therapy finding; Translations: [Other snf (current) drug therapy]Onset: 10-29-2016 Resolved: 590409-60-6547LshspizqKifjk aftercare (1 source)MCFP current use of non-steroidal anti-inflammatory drug; Translations: [MCFP (current) use of non-steroidal anti-inflammatories (NSAID)]Onset: 10-29-2016 Resolved: 468220-59-5661RdwdlbxaPpyha bone disease and musculoskeletal deformities (20 sources)Disorder of skeletal system; Translations: [Disorder of bone, unspecified]Onset: 694171-15-0989TyqafjpfNjiin circulatory disease (20 sources)Telangiectasia of skin of face; Translations: [Nevus, non-neoplastic]Onset: 59-25-1823IerqzcpnFyell connective tissue disease (3 sources)Pain in right hand; Translations: [Pain in right hand]Onset: 415158-04-1985KrutjehaTknbd connective tissue disease (3 sources)Pain in left foot; Translations: [Pain in left foot]Onset: 10-29-2016 00-55-9030FyvjckdcYdfqv connective tissue disease (14 sources)Swelling of bilateral lower limbs; Translations: [Other specified soft tissue disorders]Onset: 10-17-2024 Resolved: 750753-70-1417EltaovvkRzrux connective tissue disease (1 source)Other specified soft tissue disorders; Translations: [Other specified soft tissue disorders]Onset: 46-54-7361JibpiiiiTzlgk eye disorders (4 sources)Dry eyes; Translations: [Dry eye syndrome of bilateral lacrimal glands]Onset: 57-82-6894SzzjmbjbMkumh female genital disorders (19 sources)History of abnormal cervical Papanicolaou smear ; Translations: [Personal history of other diseasesof the female genital tract]Onset: 10-13-2023 17-86-5877IsgmtnbhZsmab infections; including parasitic (1 source)Scabies; Translations: [Scabies B86]Onset: 05-02-2021 Resolved: 81-41-8075NumiegnhFcdlm nervous system disorders (20 sources)Neurological finding; Translations: [Other abnormal involuntary movements]Onset: 91-80-5280NuqlnvfvVcayn non-traumatic joint disorders (3 sources)Shoulder pain; Translations: [Pain in unspecified shoulder]Onset: 577046-60-9821FgxsfswrLxzep non-traumatic joint disorders (11 sources)Pain in left shoulder; Translations: [Pain in joint, shoulder region] Resolved: 264061-63-9801JbheeamuEalku nutritional; endocrine; and metabolic disorders (1 source)History of Graves' disease; Translations: [Personal history of other endocrine, nutritional and metabolic disease]78-21-1675GixmqvxaYcymu nutritional; endocrine; and metabolic disorders (1 source)Weight loss; Translations: [Abnormal weight loss]74-74-4416Dlulebxy Other skin disorders (5 sources)Hyperpigmentation of skin; Translations: [Disorder of pigmentation, unspecified]Onset: 11-93-0522VwjvhlwsCzcfc upper respiratory infections (1 source)Acute upper respiratory infection, unspecified; Translations: [Viral upper respiratory illness J06.9]Onset: 05-02-2021 Resolved: 08-13-2271SrinlhhtSfhtehht codes; unclassified (3 sources)Noncompliance with treatment; Translations: [Patient's noncompliance with other medical treatment and regimen]Onset: [id number] Residual codes; unclassified (13 sources)Noncompliance with medication regimen; Translations: [Non compliance w medication regimen]Onset: [id number] codes; unclassified (12 sources)Bilateral lower limb edema; Translations: [Localized edema]Onset: 399630-81-1535BzhaixgdVmidrzyo codes; unclassified (12 sources)Edema, generalized; Translations: [Generalized edema]Onset: 877251-05-8124CtfgvkjmEtuukyne codes; unclassified (1 source)Edema, unspecified; Translations: [Edema, unspecified]Onset: 39-19-0122PkcuxeznDdcjdldfbpo; intervertebral disc disorders; other back problems (20 sources)Neck pain; Translations: [Cervicalgia]Onset: 10-29-2016 Resolved: [id number]ekevnvp (20 sources)Onset: Results Test NameValueInterpretationReference RangeFacilityProt. ElectrophCharly 92-93-8641Juflgienwae Review:ELECTRONICALLY SIGNED. KAILEE FERNANDEZ M.D. Berger HospitalComment on above:Performed By: #### INSU #### [facility] [id number] Home Health Aide Caregiver: Gee Royal MD [facility] [address] [place] [address] [place] [place], [place] [id number] Home Health Aide Caregiver: Loreta Zelaya MD #### CPEP #### [address] [address] Home Health Aide Caregiver: Gee Royal MDAlbumin [Mass/Vol]4.1 g/dLNormal3.2-5.2MAdams County Regional Medical CenterComment on above:Performed By: #### INSU #### [address] [address] Home Health Aide Caregiver: Gee Royal MD [address] [place], [place] [address]83 Home Health Aide Caregiver: Loreta Zelaya MD #### CPEP #### [address] [address] Home Health Aide Caregiver: Bill Pinedabumin, %58 %Qkhycu56-54GovxdSamaritan North Health Center Comment on above:Performed By: #### INSU #### [address] [address] Home Health Aide Caregiver: Gee Royal MD [facility] [address] [place] [address] Dr[place], [place] [id number] Home Health Aide Caregiver: Loreta Zelaya MD #### CPEP #### [address] [address] Home Health Aide Caregiver: Gee Royal MDACJQxlyb-5-iwxpbazct8.3 g/dLNormal0.1-0.4Sam[facility] North Health CenterComment on above:Performed By: #### INSU #### [address] [address] Home Health Aide Caregiver: Gee Royal MD [facility] [address] [place] [address] [place] [address] Home Health Aide Caregiver: Loreta Zelaya MD #### CPEP #### [place] [address]85922 [place] [address] Home Health Aide Caregiver: Gee Royal MDAlpha-1-globulins,%4 %Normal3-5Mer[facility] Milford HospitalComment on above:Performed By: #### INSU #### [address] [address] Home Health Aide Caregiver: Gee Royal MD [address] [place] [address]3 Home Health Aide Caregiver: Loreta Zelaya MD #### CPEP #### [address] [address] Home Health Aide Caregiver: Gee Royal MDANKPyfsg-8-.7 g/dLNormal0.5-0.9[facility] North Health CenterComment on above:Performed By: #### INSU #### [address] [address] Home Health Aide Caregiver: Gee Royal MD [address] [place] [address]3 Home Health Aide Caregiver: Loreta Zelaya MD #### CPEP #### [address] [address] Home Health Aide Caregiver: Gee Royal MDAlpha-2-globulins,%10 %Normal7-12[facility] Hospitalcy Milford HospitalComment on above:Performed By: #### INSU #### [address] [address] Home Health Aide Caregiver: Gee Royal MD [address] [place] [address]3 Home Health Aide Caregiver: Loreta Zelaya MD #### CPEP #### [address] [address] Home Health Aide Caregiver: Gee Royal MDBeta-globulins0.9 g/dLNormal0.7-1.4Mer[facility]ampden HospitalComment on above:Performed By: #### INSU #### [address] [address] Home Health Aide Caregiver: Gee Royal MD [address] [place], [place] 7944083 Home Health Aide Caregiver: Loreta Zelaya MD #### CPEP #### [address] [address] Home Health Aide Caregiver: Gee Royal MDBeta-globulins,%13 %Normal8-13[facility] Health CenterComment on above:Performed By: #### INSU #### [address] [address] Home Health Aide Caregiver: Gee Royal MD [address] [place] [address] Home Health Aide Caregiver: Loreta Zelaya MD #### CPEP #### [address] [address] Home Health Aide Caregiver: Gee Royal MDGamma-globulins1.1 g/dLNormal0.5-1.5[facility] North Health CenterComment on above:Performed By: #### INSU #### [address] [address] Home Health Aide Caregiver: Gee Royal MD [address] [place] [address]3 Home Health Aide Caregiver: Loreta Zelaya MD #### CPEP #### [address] [address] Home Health Aide Caregiver: Gee Royal MDGamma-globulins,%15 %Tzjkse01-79MokneSamaritan North Health CenterComment on above:Performed By: #### INSU #### [address] [address] Home Health Aide Caregiver: Gee Royal MD [address] [place] [address] Home Health Aide Caregiver: Loreta Zelaya MD #### CPEP #### [address] [address] Home Health Aide Caregiver: Alsiha Pineda. Elect-InterpNormal electrophoretic pattern.NormalMercy Milford HospitalComment on above:Performed By: #### INSU #### [address] [address] Home Health Aide Caregiver: Gee Royal MD [address] [place] [address] Home Health Aide Caregiver: Loreta Zelaya MD #### CPEP #### [address] [address] Home Health Aide Caregiver: Gee Royal MDTotal Prot. Sum7.1 g/dLNormal6.3-8.2MercSaint Francis Hospital & Medical CenterComment on above:Performed By: #### INSU #### [address] [address] Home Health Aide Caregiver: Gee Royal MD [address] [place] [address] Home Health Aide Caregiver: Loreta Zelaya MD #### CPEP #### [address] [address] Home Health Aide Caregiver: Amy Pineda Prot. Sum,%100 %Fbyllm41-475JvcfsSamaritan North Health CenterComment on above:Performed By: #### INSU #### [address] [address] Home Health Aide Caregiver: Gee Royal MD [address] [place] [address] Home Health Aide Caregiver: Loreta Zelaya MD #### CPEP #### [address] [address] Home Health Aide Caregiver: Gee Royal MDB12/Folate Panelon 73-84-9879Ndffbdvss (Vitamin B12) [Mass/Vol]391 pg/kAQzojpa337-2261Agrtl Tiffin HospitalComment on above: Performed By: #### BMP #### [facility] [address] [place] [address] Home Health Aide Caregiver: Alfie Frazier Acid37.3 ng/mLHigh4.8-24.2MAdams County Regional Medical CenterComment on above:Performed By: #### BMP #### [facility] [address] [place] [address] Home Health Aide Caregiver: RUTH FrazierBC 71-59-3238Hspcdtvgrgn distribution width (RBC) [Ratio]13.3 %11.8 - 14.4 %Hospital Corporation Of AmericaHematocrit (Bld) [Volume fraction]44.9 %36.3 - 47.1 %[facility]ospital Corporation Of AmericaHemoglobin (Bld) [Mass/Vol] 14.9 g/dL11.9 - 15.1 g/dLBon Lake County Memorial Hospital - WestInterpretation and review of laboratory resultsAbnormalBon [facility] (RBC) [Entitic mass]29 pg 25.2 - 33.5 pgCentra Lynchburg General HospitalHC (RBC) [Mass/Vol]33.2 g/dL28.4 - 34.8 g/dLBon Trinity Health SystemV (RBC) [Entitic vol]87.5 fL82.6 - 102.9 fLHospital Corporation Of AmericaNucleated RBC/100 WBC (Bld) [Ratio]0 %0.0 per 100 WBCHospital Corporation Of AmericaPlatelet mean volume (Bld) [Entitic vol]9.7 fL8.1 - 13.5 fL [facility] AmericaPlatelets (Bld) [#/Vol]306 10*3/uLHospital Corporation Of AmericaRBC (Bld) [#/Vol]5.13 10*6/uLHigh3.95 - 5.11 m/uLHospital Corporation Of America WBC other (Bld) [#/Vol]5.9Bon [facility] - WestBon [facility] West Erythrocyte distribution width (RBC) [Ratio]13.3 %Mtqkxz10.8-14.4[facility] HospitalComment on above:Performed By: #### BMP #### [address] [place], [place] [id number] Home Health Aide Caregiver: Loreta Zelaya MDHematocrit (Bld) [Volume fraction]44.9 %Normal 36.3-47.1MKettering Health Preble HospitalComment on above:Performed By: #### BMP #### [address] [place], [place] 4706583 Home Health Aide Caregiver: Loreta Zelaya MDHemoglobin (Bld) [Mass/Vol]14.9 g/dLNormal 11.9-15.1MKettering Health Preble HospitalComment on above:Performed By: #### BMP #### [address] [place], [place] 9869283 Home Health Aide Caregiver: MIGUELINA FrazierCH (RBC) [Entitic mass]29.0 znEkhrid82.2-33.5 [facility] HospitalComment on above:Performed By: #### BMP #### [address] [place], [place] 1024083 Home Health Aide Caregiver: KELLI FrazierC (RBC) [Mass/Vol]33.2 g/uIZtieax73.4-34.8[facility] HospitalComment on above:Performed By: #### BMP #### [address] [place], [place] 0[address]2783 Home Health Aide Caregiver: MIGUELINA FrazierCV (RBC) [Entitic vol]87.5 fECzyghk53.6-102.9 [facility] HospitalComment on above:Performed By: #### BMP #### [address] [place] [address] Home Health Aide Caregiver: TYREL Frazier Automated0.0 per 100 WBCNormal0.0[facility] Health CenterComment on above:Performed By: #### BMP #### [address] [place] [address] Home Health Aide Caregiver: Helena Frazier mean volume (Bld) [Entitic vol]9.7 fL Normal8.1-13.5[facility] Health CenterComment on above:Performed By: #### BMP #### [address] [place] [address] Home Health Aide Caregiver: Luna Frazier (Bld) [#/Vol]306 10*3/kCEjlajq879-211 [facility] HospitalComment on above:Performed By: #### BMP #### [address] [place] [address] Home Health Aide Caregiver: SARA Frazier (Bld) [#/Vol]5.13 10*6/uLHigh3.95-5.11[facility] Health CenterComment on above:Performed By: #### BMP #### [address] [place] [address] Home Health Aide Caregiver: TSERING Frazier (Bld) [#/Vol]5.9 10*3/uLNormal3.5-11.3MAdams County Regional Medical CenterComment on above:Performed By: #### BMP #### [address] [place] [address] Home Health Aide Caregiver: Loreta Zelaya MDCKon 93-25-9205GI [Catalytic activity/Vol]26 U/L26 - 192 U/LBon [facility] SecCincinnati Children's Hospital Medical CenterCreatine Kinaseon 48-26-8226LR [Catalytic activity/Vol]26 U/PIzljrl95-345ChsieSamaritan North Health Center Comment on above:Performed By: #### CDP #### [address] [place] 4029883 Home Health Aide Caregiver: Loreta Zelaya MDEstradiolon 85-23-2031Ewhcvvspc46.0 pg/mLHospital Corporation Of AmericaComment on above: FEMALES: Normally menstruating Luteal phase 60-232 Follicular phase 31-90 Midcycle phase 60-533 Postmenopausal (untreated) <138 Fulvestrant treatment will show an increased estradiol concentration with this methodology. Alternate methodologies are available upon request. Vquyzxqia49.0 pg/mLNUC Medical CenterComment on above:Result Comment: FEMALES: Normally menstruating Luteal phase 60-232 Follicular phase 31-90 Midcycle phase 60-533 Postmenopausal (untreated) <138 Fulvestrant treatment will show an increased estradiol concentration with this methodology. Alternate methodologies are available upon request.Performed By: #### BMP #### [address] [place], [place] 857[address]83 Home Health Aide Caregiver: Loreta Zelaya MDFollicle Stim. Hormon 81-54-5830Hfhufwil Stim. Horm4.8 mIU/mLNUC Medical CenterComment on above:Result Comment: Reference Range: Male: 1.5-12.4 Ovulating Female: Follicular Phase 3.5-12.5 Ovulation Phase 4.7-21.5 Luteal Phase 1.7-7.7 Postmenopausal Female: 25.8-134.8Performed By: #### VBG #### [address] [place] [address]3 Home Health Aide Caregiver: Loreta Zelaya MDFollicle Stimulating Hormoneon 02-08-2025 Follitropin Qn4.8 m[IU]/mLmIU/mLHospital Corporation Of AmericaComment on above: Reference Range: Male: 1.5-12.4 Ovulating Female: Follicular Phase 3.5-12.5 Ovulation Phase 4.7-21.5 Luteal Phase 1.7-7.7 Postmenopausal Female: 25.8-134.8 HCG, Quanton 04-53-4394OUL, Quant<0.5Tzkvvw9-0GajatSamaritan North Health CenterComment on above:Result Comment: Non-preg premeno <=5 Postmeno <=8 Male <=3 If HCG results do not concur with clinical observations, additional testing to confirm results is recommended.Performed By: #### BMP #### [address] [place] [address] Home Health Aide Caregiver: Loreta Zelaya MDHCG, Quantitative, Pregnancyon 62-42-1162XDS.beta subunit QnBon [facility] Hospital - WestComment on above: Non-preg premeno <=5 Postmeno <=8 Male <=3 If HCG results do not concur with clinical observations, additional testing to confirm results is recommended. Hospital Corporation Of AmericaLuteinizing Hormoneon 38-56-2660Wejpyeqh Qn2.8 m[IU]/mL [facility] AmericaComment on above:Reference Range: Male: 1.7-8.6 Ovulating Female: Follicular Phase 2.4-12.6 Ovulation Phase 14.0-95.6 Luteal Phase 1.0-11.4 Postmenopausal Female: 7.7-58.5 Luteinizing Hormone2.8 mIU/mLNormal1.7-8.6[facility] Milford HospitalComment on above: Result Comment: Reference Range: Male: 1.7-8.6 Ovulating Female: Follicular Phase 2.4-12.6 Ovulation Phase 14.0-95.6 Luteal Phase 1.0-11.4 Postmenopausal Female: 7.7-58.5Performed By: #### VBG #### [address] [place] [address] Home Health Aide Caregiver: Loreta Zelaya MDNo Panel Informationon 58-66-4580Tpd [facility] Hospital - WestProgesteroneon 24-50-8962Ytjtuqajyigt [Mass/Vol]2.57 ng/mLHospital Corporation Of AmericaComment on above: Female: Follicular phase <0.19 ng/mL Ovulation phase 0.06-4.14 ng/mL Luteal phase 4.11-14.5 ng/mL Postmenopausal <0.13 ng/mL Progesterone2.57 ng/mLNormalMercy Milford HospitalComment on above:Result Comment: Female: Follicular phase <0.19 ng/mL Ovulation phase 0.06-4.14 ng/mL Luteal phase 4.11-14.5 ng/mL Postmenopausal <0.13 ng/mLPerformed By: #### VBG #### [address] [place] [address] Home Health Aide Caregiver: SUZY Frazierrolactincedrick 76-96-8974Jwafusrtiemuzq and review of laboratory resultsAbnormalHospital Corporation Of AmericaProlactin [Mass/Vol]4.73 ng/mLLow4.79 - 23.3 ng/mLHospital Corporation Of AmericaComment on above:The presence of macroprolactin may cause interference in female patients with various endocrinological diseases or during . [facility] Corporation Of AmericaProlactin4.73 ng/mLLow4.79-23.3MAdams County Regional Medical Center Comment on above:Result Comment: The presence of macroprolactin may cause interference in female patients with various endocrinological diseases or during .Performed By: #### BMP #### [address] [place] [address] Home Health Aide Caregiver: Alisha Frazier. Electroph, Blon 20-10-8241Vuipsuc [Mass/Vol] 7.0 g/dLNormal6.6-8.7[facility] Health CenterComment on above:Performed By: #### INSU #### [place] [address] Home Health Aide Caregiver: Gee Royal MD [address] [place] [address] Home Health Aide Caregiver: Loreta Zelaya MD #### CPEP #### [facility] [address] [place], [place] [id number] Home Health Aide Caregiver: QUAN Pinedaedimentation Rateon 70-22-0197FED Photometric method (Bld) [Velocity]21HighHospital Corporation Of AmericaInterpretation and review of laboratory resultsAbnormalBon [facility] Sedimentation Rate21 mm/HrHigh0-20[facility] Health CenterComment on above: Performed By: #### CDP #### [address] [place], [place] 6335083 Home Health Aide Caregiver: Loreta Zelaya MDT4, Free 54-45-8663Ornd T4 [Mass/Vol]0.5 ng/dL Low0.92 - 1.68 ng/dLBon [facility] - WestInterpretation and review of laboratory resultsAbnormPage Memorial HospitalTSHon 86-86-1766Kpxfqqtjmspzbp and review of laboratory resultsAbnormPage Memorial HospitalTS Qn15.5 m[IU]/LHighBon [facility] Hospital and SchoolTestosteroneon 41-16-9701Babnpoqdtaak [Mass/Vol]14 ng/dL8 - 48 ng/dLBon Children's Care Hospital and SchoolTestosterone, Totalon 07-93-9129Teuzvdkabmpf [Mass/Vol]14 ng/dLNormal8-48[facility] CenterComment on above:Performed By: #### VBG #### [address] [place], [place] 431[address]83 Home Health Aide Caregiver: Loreta Zelaya MDThyroid Stim. Horm.on 46-61-2314Dxzklje Stim. Horm.15.50 uIU/mLHigh0.27-4.20[facility] Health CenterComment on above:Performed By: #### BMP #### [address] [place], [place] [id number] Home Health Aide Caregiver: Loreta Zelaya MDThyroxine, [facility] Memorial Hospitalon 18-94-2935Htkenmsoq, Free0.5 ng/dLLow0.92-1.68[facility] Health CenterComment on above:Performed By: #### VBG #### [address] [place], [place] 1566983 Home Health Aide Caregiver: Loreta Zelaya MDVitamin B12 & Folateon 04-93-5222Mdrtgspaq (Vitamin B12) [Mass/Vol]391 pg/mL232 - 1245 pg/mLHospital Corporation Of AmericaFolate [Mass/Vol]37.3 ng/mLHigh4.8 - 24.2 ng/mLHospital Corporation Of AmericaInterpretation and review of laboratory resultsAbnormalBon Children's Care Hospital and SchoolACETONE,(BETAHYDROXYBUTYRATE, KETONE) QUANTITATIVE SERUMon 18-29-8477SLZSOUMAYPOMJHTGGYX7.13 mmol/LNormal0.02-0.27[facility] Ontario HospitalComment on above:Performed By: #### KETB #### [facility] ([address] [address] VIRB-TYPE NATRIURETIC PEPTIDEon 71-09-4381Txlrcqdfhtw peptide B (Bld) [Mass/Vol]16 pg/mLNormal<=100[facility] HospitalComment on above: Performed By: #### BNP #### [facility] ([address] [address] VIRBEDSIDE GLUCOSEon 06-52-6110Mvdeekr [Mass/Vol]306 mg/dLHigh 65-99[facility] HospitalComment on above:Performed By: #### BEDG #### [facility] ([address] [address] VIRGlucose [Mass/Vol]476 mg/dLCritically gopb30-71DvcUuupyiAvita Health System Ontario HospitalComment on above:Performed By: #### BEDG #### [facility] ([address] [address] VIRCBC WITH AUTO DIFFERENTIALon 35-02-9718BIWYPKMZG ABSOLUTE COUNT (10*3/UL) BY AUTOMATED COUNT0.0 10*3/uLNormal0.0-0.2PMarymount HospitalComuniversity of michigan health on above:Performed By: #### CBCA #### [facility] ([address] [address] VIRBASOPHILS RELATIVE PERCENT BY AUTOMATED COUNT0.6 %Normal [facility] HospitalComment on above:Performed By: #### CBCA #### [facility] ([address] [place] [address] VIRCELLAVISION DIFFERENTIAL TYPEAUTOMATED DIFFERENTIALNormal [facility] HospitalComuniversity of michigan health on above:Performed By: #### CBCA #### [facility] ([address] [place] [address] VIREosinophils (Bld) [#/Vol]0.1 10*3/uLNormal0.0-0.4[facility] HospitalComuniversity of michigan health on above:Performed By: #### CBCA #### [facility] ([address] [place] [address] VIREOSINOPHILS RELATIVE PERCENT BY AUTOMATED COUNT2.1 %Normal [facility] HospitalComuniversity of michigan health on above:Performed By: #### CBCA #### [facility] ([address] [place] [address] VIRErythrocyte distribution width (RBC) [Ratio]13.1 %Normal 11.5-15ProBellville Medical CenterComuniversity of michigan health on above:Performed By: #### CBCA #### [facility] ([address] [place] [address] VIRHematocrit (Bld) [Volume fraction]41.3 %Jxshws64-29 ProMNaval Medical Center San DiegoComuniversity of michigan health on above:Performed By: #### CBCA #### [facility] ([address] [place] [address] VIRHemoglobin (Bld) [Mass/Vol]14.0 g/oTAlcrjn46.7-15.5 [facility] HospitalComuniversity of michigan health on above:Performed By: #### CBCA #### [facility] ([address] [place] [address] VIRLYMPHOCYTES ABSOLUTE COUNT (10*3/UL) BY AUTOMATED COUNT1.9 10*3/uLNormal1.0-3.5PMarymount HospitalComment on above:Performed By: #### CBCA #### [facility] ([address] [place] [address] VIRLYMPHOCYTES RELATIVE PERCENT BY AUTOMATED COUNT31.7 %Normal [facility] HospitalComment on above:Performed By: #### CBCA #### [facility] ([address] [place] [address] VIRMCH (RBC) [Entitic mass]29.1 ovWglcud49-42TkpSwsusmBellville Medical CenterComment on above:Performed By: #### CBCA #### [facility] ([address] [place] [address] VIRMCHC (RBC) [Mass/Vol]33.9 g/kWQfpmcl39-04ZapRlmquoAvita Health System Ontario HospitalComment on above:Performed By: #### CBCA #### [facility] ([address] [place] [address] VIRMCV (RBC) [Entitic vol]86 aAZhmxzd83-258SxdUoorbw [facility]remont HospitalComment on above:Performed By: #### CBCA #### [facility] ([address] [place] [address] VIRMONOCYTES ABSOLUTE COUNT (10*3/UL) BY AUTOMATED COUNT0.4 10*3/uLNormal0.0-0.9[facility] HospitalComment on above:Performed By: #### CBCA #### [facility] ([address] [place] [address] VIRMONOCYTES RELATIVE PERCENT BY AUTOMATED COUNT5.9 %Normal [facility] HospitalComment on above:Performed By: #### CBCA #### [facility] ([address] [place] [address] VIRNEUTROPHILS ABSOLUTE COUNT BY AUTOMATED COUNT3.6 10*3/uL Normal1.5-6.6[facility] HospitalComment on above:Performed By: #### CBCA #### [facility] ([facility]) [address] [place] [address]. [place] [address] VIRNEUTROPHILS RELATIVE PERCENT BY AUTOMATED COUNT59.7 %Normal [facility] HospitalComment on above:Performed By: #### CBCA #### [facility] ([address] [place] [address] VIRPlatelet mean volume (Bld) [Entitic vol]7.9 fLNormal7-12 [facility] HospitalComment on above:Performed By: #### CBCA #### [facility] ([address] [place] [address] VIRPlatelets (Bld) [#/Vol]256 10*3/gPSccdfq008-252TwqQhkmsu [facility] HospitalComment on above:Performed By: #### CBCA #### [facility] ([address] [place] [address] VIRRBC COUNT4.82 X10E12/LNormal3.8-5.2PMarymount HospitalComment on above:Performed By: #### CBCA #### [facility] ([address] [place] [address] VIRWBC (Bld) [#/Vol]6.0 10*3/uLNormal4-11ProBellville Medical CenterComment on above:Performed By: #### CBCA #### [facility] ([address] [place] [address] VIRCOMPREHENSIVE METABOLIC PANELon 49-24-8446Iiavxxz [Mass/Vol]3.4 g/dLNormal3.2-5.3PMarymount HospitalComment on above: Performed By: #### CMP #### [facility] ([place] [address] [place] [address] VIRALP [Catalytic activity/Vol]118 U/COhootv16-586VogEiivlwBellville Medical CenterComment on above:Performed By: #### CMP #### [facility] ([place] [address] [place] [address] VIRALT [Catalytic activity/Vol]32 U/LHigh<=31PMarymount HospitalComment on above:Performed By: #### CMP #### [facility] ([place] [address] [place] [address] VIRAnion gap [Moles/Vol]6 mmol/LNormal5-15ProBellville Medical CenterComment on above:Performed By: #### CMP #### [facility] ([place] [address] [place] [address] VIRAST [Catalytic activity/Vol]14 U/LNormal<=41ProBellville Medical CenterComment on above:Performed By: #### CMP #### [facility] ([place] [address] [place] [address] VIRBilirubin [Mass/Vol]0.4 mg/dLNormal0.3-1.2PMarymount HospitalComment on above:Performed By: #### CMP #### [facility] ([place] [address] [place] [address] VIRCalcium [Mass/Vol]8.6 mg/dLNormal8.5-10.5PMarymount HospitalComment on above:Performed By: #### CMP #### [facility] ([place] [address] [place] [address] VIRChloride [Moles/Vol]101 mmol/ZPkhrsd39-065FxzDfssofBellville Medical CenterComment on above:Performed By: #### CMP #### [facility] ([place] [address] [place] [address] VIRCO2 [Moles/Vol]25 mmol/QGylawx12-69CwiVyvkht [facility] HospitalComment on above:Performed By: #### CMP #### [facility] ([address] [place] [address] VIRCreatinine [Mass/Vol]0.45 mg/dLNormal0.40-1.00ProBellville Medical CenterComment on above:Result Comment: METHOD TRACEABLE TO IDMS STANDARDPerformed By: #### CMP #### [facility] ([address] [place] [address] VIREGFR (CKD-EPI) NON-RACE DEPENDENT>^90Normal>=60ProBellville Medical CenterComment on above:Result Comment: Reported eGFR is based on the CKD-EPI 2020 equation that does not use a race coefficient.Performed By: #### CMP #### [facility] [facility] ([address] [place] [address] VIRGlucose [Mass/Vol]401 mg/dLCritically xknq96-84TlyIaycdtBellville Medical CenterComment on above:Performed By: #### CMP #### [facility] ([address] [address] VIRPotassium [Moles/Vol]4.1 mmol/LNormal3.5-5.0[facility] Ontario HospitalComment on above:Performed By: #### CMP #### [facility] ([address] [address] VIRProtein [Mass/Vol]6.2 g/dLNormal6.0-8.0ProBellville Medical CenterComment on above:Performed By: #### CMP #### [address] [address] VIRSodium [Moles/Vol]132 mmol/EXva945-742RzmVksnhdBellville Medical CenterComment on above:Performed By: #### CMP #### [facility] ([address] [place] [address] VIRUrea nitrogen [Mass/Vol]14 mg/dLNormal5-23ProBellville Medical CenterComment on above:Performed By: #### CMP #### [facility] ([address] [place] [address] VIRLACTATE W/ REFLEXon [id number] W/REFLEX1.3 mmol/L Normal0.4-2.0ProBellville Medical CenterComment on above:Order Comment: Result did not trigger repeat Lactate, re-order if needed.Performed By: #### LACTS #### [facility] ([address] [place] [address] VIRMAGNESIUMon 28-00-9023Poqxkyhze [Mass/Vol]1.8 mg/dLNormal 1.8-2.6ProBellville Medical CenterComment on above:Performed By: #### MG #### [facility] ([address] [place] [address] VIRPH, VENOUSon 49-41-2696VE VENOUS7.159Ozuy1.320-7.420 [facility] Ontario HospitalComment on above:Performed By: #### PHV #### [address] [place] [address] VIRPOCT NURSING URINE MACROSCOPIC UAon 09-07-2689CCSGVZGDA RICKY NegativeNormalNegativeProBellville Medical CenterComment on above:Performed By: #### NUM #### [address] [place] [address] VIRBLOOD/HGB NURNegativeNormalNegativeProBellville Medical CenterComment on above:Performed By: #### NUM #### [address] [place] [address] VIRGLUCOSE RICKY>=1000 mg/dLAbnormalNegativeAvita Health System Ontario HospitalComment on above:Performed By: #### NUM #### [facility] ([address] [address] VIRKETONES NURNegativeNocone healthNegativeAvita Health System Ontario Hospital Comment on above:Performed By: #### NUM #### [facility] ([address] [place] [address] VIRLEUKOCYTE ESTERASE NURNegativeNormalNegativeAvita Health System Ontario HospitalComment on above:Performed By: #### NUM #### [address] [address] VIRNITRITE NURNegativeNormalNegativeAvita Health System Ontario Hospital Comment on above:Performed By: #### NUM #### [address] [address] VIRPH NUR7.5Kkdmti7.0, 6.0, 6.5, 7.0, 7.5, 8.0, 8.5, 5.5 [facility] Ontario HospitalComment on above:Performed By: #### NUM #### [facility] ([address] [address] VIRPROTEIN NURNegativeNormalNegativeAvita Health System Ontario Hospital Comment on above:Performed By: #### NUM #### [facility] ([address] [place] [address] VIRSPECIFIC GRAVITY NUR1.877Eurhrn9.010, 1.015, 1.020, 1.025 [facility] Ontario HospitalComment on above:Performed By: #### NUM #### [address] [address] VIRUROBILINOGEN NUR0.2 E.U./dLParma Community General Hospital Comment on above:Performed By: #### NUM #### [facility] ([facility]) [address] [place] [address] VIRDBT Breast - bilateral diagnosticon [id number] evidence of malignancy either breast. There is [...] to the patient regarding the results. [employer] recommends annual mammograms for women 40 years and older. Performing Facility: [place] [address] Bethany Gabriel MD - 12/25/2024 EXAMINATION: DIAGNOSTIC [...] to the patient regarding the results. [employer] recommends annual mammograms for women 40 years and older. Performing Facility: [place] [address] [facility] AmericaRadiology Study observation (narrative)[facility] HIPOLITO DIGITAL DIAGNOSTIC BILATERALon [id number] HIPOLITO DIGITAL DIAGNOSTIC BILATERALEXAMINATION: DIAGNOSTIC DIGITAL BILATERAL [...] to the patient regarding the results. [employer] recommends annual mammograms for women 40 years and older. Performing Facility: [place] [address] Interpreted by: Bethany Melchor MD Signed by: Bethany Melchor MD 12/25/24 Final resultNormMorrow County Hospital Panel Informationon [id number] evidence of malignancy either breast. There is [...] to the patient regarding the results. [employer] recommends annual mammograms for women 40 years and older. [facility] RIS CONSOLIDATEDEXAMINATION: DIAGNOSTIC DIGITAL BILATERAL BREASTS MAMMOGRAM [...] to the patient regarding the results. [employer] recommends annual mammograms for women 40 years and older. [facility] MDxHealthCarilion Stonewall Jackson HospitalRadiology Study observation (narrative)[facility] ReserveMyHomeNo Panel InformationOrdered By: Bethany Jill on 74-82-3212Gmq [facility] Rehabilitation HospitalSlingbox Work Phone: us BREAST LIMITED LEFTon [id number] BREAST LIMITED LEFTEXAMINATION: DIAGNOSTIC DIGITAL BILATERAL BREASTS [...] to the patient regarding the results. [employer] recommends annual mammograms for women 40 years and older. Interpreted by: Bethany Melchor MD Signed by: Bethany Melchor MD 12/25/24 Final resultNormKam [place] Primary Children'S HospitalUS BREAST LIMITED RIGHTon [id number] BREAST LIMITED RIGHTEXAMINATION: DIAGNOSTIC DIGITAL BILATERAL BREASTS [...] to the patient regarding the results. [employer] recommends annual mammograms for women 40 years and older. Interpreted by: Bethany Melchor MD Signed by: Bethany Melchor MD 12/25/24 Final resultNoParkview Health auto differentialon 12-21-2024 Basophils (Bld) [#/Vol]0.05 10*3/uLBon Secours Mercy HealthBasophils/100 WBC (Bld)1 %0 - 2 %[facility] HealthEosinophils (Bld) [#/Vol]0.05 10*3/uLBon Secours Mercy HealthEosinophils/100 WBC (Bld)1 %1 - 4 %[facility] Hospitaly Health Erythrocyte distribution width (RBC) [Ratio]11.6 %Low11.8 - 14.4 %[facility] Mercy HealthHematocrit (Bld) [Volume fraction]41 %36.3 - 47.1 %[facility] HealthHemoglobin (Bld) [Mass/Vol]13.6 g/dL11.9 - 15.1 g/dLBon Secours MercCarilion Stonewall Jackson HospitalImmature granulocytes (Bld) [#/Vol]0 10*3/uLBon Secours Mercy Health Immature granulocytes/100 WBC (Bld)0 %0[facility] HealthInterpretation and review of laboratory resultsAbnormalBon Secours Mercy HealthLymphocytes/100 WBC (Bld)56 %High24 - 43 %[facility] HealthLymphocytes/100 WBC (Bld)2.92 %[facility] Hospitaly [facility] CampusH (RBC) [Entitic mass]29.9 pg25.2 - 33.5 pgBon Secours Dayton Osteopathic HospitalHC (RBC) [Mass/Vol]33.2 g/dL28.4 - 34.8 g/dLBon Secours Licking Memorial Hospitaly [facility] Barberton CampusV (RBC) [Entitic vol]90.1 fL82.6 - 102.9 fLBon Secours Mercy HealthMonocytes/100 WBC (Bld)2 %Low3 - 12 %[facility] HealthMonocytes/100 WBC (Bld)0.1 %[facility]cy HealthMorphology Jerson (Bld) [Interp]NormalBon Secours Mercy HealthNeutrophils/100 WBC (Bld)40 %36 - 65 %[facility] HealthNucleated RBC/100 WBC (Bld) [Ratio]0 %0.0 per 100 WBCBon Secours Mercy HealthPlatelet mean volume (Bld) [Entitic vol]9.6 fL8.1 - 13.5 fLBon Lake County Memorial Hospital - WestPlatelets (Bld) [#/Vol]262 10*3/uLBon Lake County Memorial Hospital - WestRBC (Bld) [#/Vol]4.55 10*6/uL3.95 - 5.11 m/uLHospital Corporation Of AmericaSegmented neutrophils/100 WBC (Bld)2.08 %Bon [facility] Hospital - WestWBC other (Bld) [#/Vol] 5.2Bon [facility] Hospital and SchoolCBC with Diffon 12-21-2024 Abs. Basophil0.05 k/uLNormal0.0-0.2Mercy Hampden HospitalComment on above: Performed By: #### VBG #### [address] [place] [address] Home Health Aide Caregiver: Marie Frazier.Imm.Granulocyte0.00 k/uLNormal0.00-0.30MerOhioHealth O'Bleness Hospital HospitalComment on above:Performed By: #### VBG #### [address] [place] [address] Home Health Aide Caregiver: Marie Frazier.Neutrophil (Seg)2.08 k/uLNormal1.50-8.10[facility] HospitalComment on above:Performed By: #### VBG #### [address] [place] [address] Home Health Aide Caregiver: Loreta Zelaya MDBasophils/100 WBC (Bld)1 %Normal0-2MercAdena Regional Medical Center HospitalComment on above:Performed By: #### VBG #### [address] [place] [id number] Home Health Aide Caregiver: Loreta Zelaya MDEosinophils (Bld) [#/Vol]0.05 10*3/uLNormal 0.00-0.44MerOhioHealth O'Bleness Hospital HospitalComment on above:Performed By: #### VBG #### [address] [place] [address] Home Health Aide Caregiver: Loreta Zelaya MDEosinophils/100 WBC (Bld)1 %Normal1-4[facility] HospitalComment on above:Performed By: #### VBG #### [address] [place], [place] [address] Home Health Aide Caregiver: Loreta Zelaya MDImmature granulocytes/100 WBC (Bld)0 %Tobrhw7Kuopu Tiffin HospitalComment on above:Performed By: #### VBG #### [address] [place], [facility]83 Home Health Aide Caregiver: Loreta Zelaya MDLymphocytes (Bld) [#/Vol]2.92 10*3/uLNormal 1.10-3.70[facility] HospitalComment on above:Performed By: #### VBG #### [address] [place], [facility]83 Home Health Aide Caregiver: Luciana Fraziermphocytes/100 WBC (Bld)56 %Oiii93-18Vtexh Tiffin HospitalComment on above:Performed By: #### VBG #### [address] [place], [place] [address] Home Health Aide Caregiver: MIGUELINA Frazieronocytes (Bld) [#/Vol]0.10 10*3/uLNormal0.10-1.20 [facility] HospitalComment on above:Performed By: #### VBG #### [address] [place], [place] [address] Home Health Aide Caregiver: MIGUELINA Frazieronocytes/100 WBC (Bld)2 %Low3-12Toledo Hospitalcy Hampden HospitalComment on above:Performed By: #### VBG #### [address] [place], [place] [address] Home Health Aide Caregiver: MIGUELINA Frazierorphology Jerson (Bld) [Interp]NormalNormalWayne Healthcare Main Campus HospitalComment on above:Performed By: #### VBG #### [address] [place], [place] [address] Home Health Aide Caregiver: Loreta Zelaya MDNeutrophil (Seg)40 %Hjzlnf62-09Atqid Tiffin HospitalComment on above:Performed By: #### VBG #### [address] [place] [address] Home Health Aide Caregiver: Loreta Zelaya MDErythrocyte distribution width (RBC) [Ratio]11.6 % Low11.8-14.4[facility] HospitalComment on above:Performed By: #### VBG #### [address] [place], [place] [address] Home Health Aide Caregiver: Loreta Zelaya MDHematocrit (Bld) [Volume fraction]41.0 %Normal 36.3-47.1Mercy Hampden HospitalComment on above:Performed By: #### VBG #### [address] [place], [place] [address] Home Health Aide Caregiver: Loreta Zelaya MDHemoglobin (Bld) [Mass/Vol]13.6 g/dLNormal 11.9-15.1MKettering Health Preble HospitalComment on above:Performed By: #### VBG #### [address] [place], [place] [id number] Home Health Aide Caregiver: MIGUELINA FrazierCH (RBC) [Entitic mass]29.9 aqXemmwo16.2-33.5 [facility] HospitalComment on above:Performed By: #### VBG #### [address] [place], [place] [id number] Home Health Aide Caregiver: Loreta Sturtz, MDMCHC (RBC) [Mass/Vol]33.2 g/kSAnorvu98.4-34.8[facility] North Health CenterComment on above:Performed By: #### VBG #### [address] [place] [address] Home Health Aide Caregiver: MIGUELINA FrazierCV (RBC) [Entitic vol]90.1 oGDylliz15.6-102.9 [facility] HospitalComment on above:Performed By: #### VBG #### [address] [place] [address] Home Health Aide Caregiver: TYREL Frazier Automated0.0 per 100 WBCNormal0.0[facility] HospitalComment on above:Performed By: #### VBG #### [address] [place], [place] [address] Home Health Aide Caregiver: Jamel Fraziertelet mean volume (Bld) [Entitic vol]9.6 fL Normal8.1-13.5[facility] North Health CenterComment on above:Performed By: #### VBG #### [address] [place] [address] Home Health Aide Caregiver: Jamel Fraziertezach (Bld) [#/Vol]262 10*3/bJCzgdhf859-975 [facility] HospitalComment on above:Performed By: #### VBG #### [address] [place] [address] Home Health Aide Caregiver: KEYLA FrazierBC (Bld) [#/Vol]4.55 10*6/uLNormal3.95-5.11[facility] HospitalComment on above:Performed By: #### VBG #### [address] [place] [address] Home Health Aide Caregiver: TSERING Frazier (Bld) [#/Vol]5.2 10*3/uLNormal3.5-11.3Mercy Hampden HospitalComment on above:Performed By: #### VBG #### [address] [place], [place] [id number] Home Health Aide Caregiver: RUTH Frazieromp Metabolic Pr/rfx MGon 30-25-6105Zailglv [Mass/Vol]3.6 g/dLNormal3.5-5.2Mer[facility]ampden HospitalComment on above:Performed By: #### VBG #### [address] [place], [place] [address] Home Health Aide Caregiver: Loreta Zelaya MDAlbumin/Glob Ratio1.6Emkjgj9.0-2.5Mer[facility]ampden HospitalComment on above:Performed By: #### VBG #### [address] [place] [address] Home Health Aide Caregiver: Bill Frazierkaline Ocld137 U/ZJpsgvs81-280Bijmf Hampden HospitalComment on above:Performed By: #### VBG #### [address] [place] [address] Home Health Aide Caregiver: Loreta Zelaya MDALT [Catalytic activity/Vol]19 U/XWsrjdy95-59Esiic [facility]den HospitalComment on above:Performed By: #### VBG #### [address] [place] [address] Home Health Aide Caregiver: Loreta Zelaya MDAnion gap [Moles/Vol]10 mmol/LNormal9-16MerOhioHealth O'Bleness Hospital HospitalComment on above:Performed By: #### VBG #### [address] [place], [place] [address] Home Health Aide Caregiver: Loreta Zelaya MDAST [Catalytic activity/Vol]13 U/ROsywrt64-88Iurrl [facility]den HospitalComment on above:Performed By: #### VBG #### [facility] [address] [place] [address] [place] [address] Home Health Aide Caregiver: Loreta Zelaya MDBilirubin [Mass/Vol]0.2 mg/dLNormal0.00-1.20[facility] Health CenterComment on above:Performed By: #### VBG #### [address] [place] [address] Home Health Aide Caregiver: Loreta Zelaya MDBUN/CRE Hlfbv70Nvve3-93NstuhSamaritan North Health Center Comment on above:Performed By: #### VBG #### [address] [place] [address] Home Health Aide Caregiver: RUTH Frazieralcium [Mass/Vol]8.4 mg/dLLow8.6-10.4[facility] HospitalComment on above:Performed By: #### VBG #### [address] [place] [address] Home Health Aide Caregiver: RUTH Frazierhloride [Moles/Vol]107 mmol/VSbvoko44-781Ystwl Tiffin HospitalComment on above:Performed By: #### VBG #### [address] [place] [address] Home Health Aide Caregiver: Loreta Zelaya MDCO2 [Moles/Vol]19 mmol/NCme43-36Apuaj Tiffin HospitalComment on above:Performed By: #### VBG #### [address] [place] [address] Home Health Aide Caregiver: RUTH Frazierreatinine [Mass/Vol]0.4 mg/dLLow0.50-0.90[facility] Health CenterComment on above:Performed By: #### VBG #### [address] [place], [place] [address] Home Health Aide Caregiver: Loreta Zelaya MDGFR/1.73 sq M.predicted among non-blacks MDRD (S/P/Bld) [Vol rate/Area]mL/min/{1.73_m2}Normal>60[facility] HospitalComment on above:Result Comment: These results are [...] renal tubular secretion.Performed By: #### VBG #### [address] [place] [address] Home Health Aide Caregiver: Loreta Zelaya MDGlucose [Mass/Vol]146 mg/kFBgfj25-36Hlwaj Milford HospitalComment on above:Performed By: #### VBG #### [address] [place], [facility]83 Home Health Aide Caregiver: SUZY Frazierotassium [Moles/Vol]3.8 mmol/LNormal3.7-5.3Mer[facility] HospitalComment on above:Performed By: #### VBG #### [address] [place], [facility]83 Home Health Aide Caregiver: Loreta Zelaya MDProtein [Mass/Vol]6.0 g/dLLow6.6-8.7[facility] Health CenterComment on above:Performed By: #### VBG #### [address] [place], [place] [address] Home Health Aide Caregiver: Loreta Zelaya MDSodium [Moles/Vol]136 mmol/BFlkitk364-235Gokqo Tiffin HospitalComment on above:Performed By: #### VBG #### [address] [place], [place] [address] Home Health Aide Caregiver: Loreta Zelaya MDUrea nitrogen [Mass/Vol]14 mg/dLNormal6-20Mer[facility] HospitalComment on above:Performed By: #### VBG #### [facility] [address] [place] [address] Home Health Aide Caregiver: Loreta Zelaya [facility]RY[facility]TAomprehensive Metabolic Panel w/ Reflex to MGon 42-24-8945Ccknics [Mass/Vol]3.6 g/dL3.5 - 5.2 g/dLBon [facility] Albumin/Globulin [Mass ratio]1.5 {ratio}1.0 - 2.5Bon [facility] Hospital - WestALP [Catalytic activity/Vol]103 U/L35 - 104 U/LBon [facility] Hospital - WestALT [Catalytic activity/Vol]19 U/L10 - 35 U/LBon [facility] Memorial Hospital - WestAnion gap [Moles/Vol]10 mmol/L9 - 16 mmol/LBon [facility] Hospital - WestAST [Catalytic activity/Vol]13 U/L10 - 35 U/LBon [facility] Memorial Hospital - WestBilirubin [Mass/Vol]0.2 mg/dL0.00 - 1.20 mg/dLBon [facility] Hospital - WestCalcium [Mass/Vol]8.4 mg/dLLow8.6 - 10.4 mg/dLBon [facility] County Memorial Hospital - WestChloride [Moles/Vol]107 mmol/L98 - 107 mmol/LBon [facility] Hospital - WestCO2 [Moles/Vol]19 mmol/LLow20 - 31 mmol/LBon [facility] Hospital - WestCreatinine [Mass/Vol]0.4 mg/dLLow0.50 - 0.90 mg/dLBon [facility] Hospital - WestEst, Glom Filt Rate- PINFBon Lake County [facility] Hospital - WestComuniversity of michigan health on above: These results are not intended [...] that affects renal tubular secretion. Glucose [Mass/Vol]146 mg/eKEoxc11 - 99 mg/dLBon [facility] Interpretation and review of laboratory resultsAbnormalBon LiB Potassium [Moles/Vol]3.8 mmol/L3.7 - 5.3 mmol/LBon SecSightCine HealthProtein [Mass/Vol]6 g/dLLow6.6 - 8.7 g/dLBon SecSlingboxSodium [Moles/Vol]136 mmol/L136 - 145 mmol/LBon SecSlingboxUrea nitrogen [Mass/Vol]14 mg/dL6 - 20 mg/dLBon SecSlingboxUrea nitrogen/Creatinine [Mass ratio]35 mg/mg High9 - 20Bon TextRecruitEKG 12 Lead (Chest Pain)Ordered By: Mode Coffman on 63-46-2141Xkyfgo [email or web address] Work Phone: P Jpub71dckbexxHozSendTask Work Phone: P-R Tcnxnyfi035 [employer] Work Phone: [phone] Nrzntxce353 [employer] Work Phone: QRS Dxdlrhpt83 [employer] Work Phone: QTc Calculation (Bazett)474 msTachyus Work Phone: R Eepl437pevtcorItvSendTask Work Phone: T Iulg82mnglvszTziSendTask Work Phone: Ventricular [email or web address] Work Phone: Bon LiB Work Phone: [phone] 12 Lead (Chest Pain)on 37-72-0370Lkgaff sinus rhythm Rightward axis Borderline ECG ECG not diagnostic for Acute Coronary Syndrome; consider clinical findings When compared with ECG of 16-Oct-2024 20:05, QRS axis Shifted right Confirmed by Mode Coffman ([id number]) on 12/21/2024 8:47:09 AMStephens County HospitalMode ha MD - 12/21/2024 Normal sinus rhythm Rightward axis Borderline ECG ECG not diagnostic for Acute Coronary Syndrome; consider clinical findings When compared with ECG of 16-Oct-2024 20:05, QRS axis Shifted right Confirmed by Mode Coffman ([id number]) on 12/21/2024 8:47:09 AM Bon [facility] Hospital - WestEKG Rhythm Stripon 73-04-7845YAHEGCOREY HOSPITAL LABBon [facility] Hospital - WestGlucose, Whole Bloodon 13-34-9368Inidlsv [Mass/Vol]264 mg/yJOpxg80 - 100 mg/dLBon [facility] Hospital - WestInterpretation and review of laboratory resultsAbnormBon Secours Mary Immaculate HospitalGlucose [Mass/Vol]264 mg/hEWvbg70-158RbmfgSamaritan North Health CenterGlucose [Mass/Vol]166 mg/eDAica22 - 100 mg/dLBon [facility] Hospital - WestInterpretation and review of laboratory resultsAbnoSturgis Regional HospitalGlucose [Mass/Vol]166 mg/kLXpde14-259VdpyoSamaritan North Health CenterGlucose [Mass/Vol]195 mg/aWOqdt12 - 100 mg/dLBon [facility] Hospital - WestInterpretation and review of laboratory resultsAbSanford USD Medical CenterGlucose [Mass/Vol]195 mg/xURtkw49-042JbevjSamaritan North Health CenterUrinalysis w/ Microon 11-22-8676Gqazohoff, SemiQt,UrNegativeNoSouthwest General Health Center Comment on above:Performed By: #### UAMIC #### [facility] [address] [place] [address] [place] [address] Home Health Aide Caregiver: Lillian Frazier, UrineNegativeFirelands Regional Medical Center Comment on above:Performed By: #### UAMIC #### [facility] [address] [place] [address] Home Health Aide Caregiver: Santi Frazier (ClearNormalCMagruder Hospital Comment on above:Performed By: #### UAMIC #### [facility] [address] [place] [address] Dr[place], [place] [address] Home Health Aide Caregiver: RUTH Frazierolor (U)YellowNormalYMetroHealth Main Campus Medical Center Comment on above:Performed By: #### UAMIC #### [address] [place], [place] [address] Home Health Aide Caregiver: Loreta Zelaya MDEpithelial cells LM Ql (Urine sed)NoneNormal0-25 [facility] Health CenterComment on above:Performed By: #### UAMIC #### [address] [place], [place] [address] Home Health Aide Caregiver: Loreta Zelaya MDGlucose Ql (U)3+ mg/dLAbnormalNEGSamaritan North Health CenterComment on above:Performed By: #### UAMIC #### [address] [place], [place] [address] Home Health Aide Caregiver: Loreta Zelaya MDKetones Ql (U)4+ mg/dLAbnormalNEGSamaritan North Health CenterComment on above:Performed By: #### UAMIC #### [address] [place], [place] [address] Home Health Aide Caregiver: Loreta Zelaya MDLeukocyte esterase Test strip Ql (U)NegativeNormal NEGSamaritan North Health CenterComment on above:Performed By: #### UAMIC #### [address] [place], [facility]83 Home Health Aide Caregiver: Loreta Zelaya MDNitrite,UrNegativeNormalNEGSamaritan North Health Center Comment on above:Performed By: #### UAMIC #### [address] [place], [place] [address] Home Health Aide Caregiver: Loreta Zelaya [facility],Ur6.4Lovbbi8.0-9.0MerYale New Haven Psychiatric HospitalComment on above:Performed By: #### UAMIC #### [facility] [address] [place] [address] [place] [address] Home Health Aide Caregiver: SUZY Frazierrotein Ql (U)NegativeNormalNEGSamaritan North Health CenterComment on above:Performed By: #### UAMIC #### [facility] [address] [place] [address] [place] [address] Home Health Aide Caregiver: Cielo Frazier. [place],Ur<1.278Muo1.010-1.020Sam[facility] North Health CenterComment on above:Performed By: #### UAMIC #### [facility] [address] [place] [address] [place] [address] Home Health Aide Caregiver: Tawny Frazier RBCsNoneNocone health0-2MAdams County Regional Medical Center Comment on above:Performed By: #### UAMIC #### [facility] [address] [place] [address] Dr[place], [place] [phone] Home Health Aide Caregiver: Tawny Frazier WBC'sNoneNormal0-5[facility] Comment on above:Performed By: #### UAMIC #### [facility] [address] [place] [address] [place] [address] Home Health Aide Caregiver: Loreta Zelaya MDUrobilinogen,UrNormalNormal0.0-1.0[facility] North Health CenterComment on above:Performed By: #### UAMIC #### [facility] [address] [place] [address] Dr[place], [place] [phone] Home Health Aide Caregiver: Loreta Zelaya MDYeastPRESENCE NOTEDAbnormalNONEMeBackus HospitalComment on above:Performed By: #### UAMIC #### [facility] [address] [place] [address] Dr[place], [place] [address] Home Health Aide Caregiver: Loreta Zelaya MDUrinalysis with Microscopicon 89-15-7520Enqnitsnm Ql (U)NegativeNEGATIVEBon Secours Wood County HospitalClarity (U)ClearClearBon Secours Wood County HospitalColor (U)YellowYellowBon Secours Mercy HealthEpithelial cells LM.HPF (Urine [...] NOTEDAbnormalNoneBon Secours Mercy HealthBon Secours Mercy HealthBMPon 37-91-9911Tbcan gap [Moles/Vol]14 mmol/L9 - 16 mmol/LBon Secours [...] that affects renal tubular secretion. Glucose [Mass/Vol]370 mg/qMYzwq57 - 99 mg/dLBon [facility] Interpretation and review of laboratory resultsAbnormalHospital Corporation Of America Potassium [Moles/Vol]4 mmol/L3.7 - 5.3 mmol/LBon [facility] Hospital - WestSodium [Moles/Vol]134 mmol/QDiw670 - 145 mmol/LBon [facility] Hospital - WestUrea nitrogen [Mass/Vol]16 mg/dL6 - 20 mg/dLBon [facility] Hospital - WestUrea nitrogen/Creatinine [Mass ratio]27 mg/mgHigh9 - 20[facility] Basic Metabolic Profon 07-05-8814Taxxd gap [Moles/Vol]14 mmol/LNormal9-16[facility] Health CenterComment on above:Performed By: #### BMP #### [facility] [address] [place] [address] [place] [address] Home Health Aide Caregiver: Loreta Zleaya MDBUN/CRE Htfzf20Wrgg9-28KsfzzSamaritan North Health Center Comment on above:Performed By: #### BMP #### [address] [place] [address] Home Health Aide Caregiver: RUTH Frazieralcium [Mass/Vol]7.9 mg/dLLow8.6-10.4[facility] North Health CenterComment on above:Performed By: #### BMP #### [facility] [address] [place] [address] [place] [address] Home Health Aide Caregiver: RUTH Frazierhloride [Moles/Vol]102 mmol/GUlawjs30-351OpabpSamaritan North Health CenterComment on above:Performed By: #### BMP #### [facility] [address] [place] [address] [place] [address] Home Health Aide Caregiver: RUTH FrazierO2 [Moles/Vol]18 mmol/YEtq22-61RhespSamaritan North Health CenterComment on above:Performed By: #### BMP #### [address] [place] [address] Home Health Aide Caregiver: RUTH Frazierreatinine [Mass/Vol]0.6 mg/dLNormal0.50-0.90Sam[facility] Health CenterComment on above:Performed By: #### BMP #### [address] [place], [facility]83 Home Health Aide Caregiver: Loreta Zelaya MDGFR/1.73 sq M.predicted among non-blacks MDRD (S/P/Bld) [Vol rate/Area]mL/min/{1.73_m2}Normal>60[facility] Health CenterComment on above:Result Comment: These results are [...] renal tubular secretion.Performed By: #### BMP #### [address] [place] [address] Home Health Aide Caregiver: Loreta Zelaya MDGlucose [Mass/Vol]370 mg/kBDnjf61-65Bhagq [facility]ford HospitalComment on above:Performed By: #### BMP #### [address] [place] [address] Home Health Aide Caregiver: Loreta Zelaya MDPotassium [Moles/Vol]4.0 mmol/LNormal3.7-5.3MAdams County Regional Medical CenterComment on above:Performed By: #### BMP #### [address] [place] [address] Home Health Aide Caregiver: Loreta Zelaya MDSodium [Moles/Vol]134 mmol/YYnp838-951SgxusSamaritan North Health CenterComment on above:Performed By: #### BMP #### [facility] [address] [place] [address] Dr. [place], [place] [id number] Home Health Aide Caregiver: Loreta Zelaya MDUrea nitrogen [Mass/Vol]16 mg/dLNormal6-20[facility] Health CenterComment on above:Performed By: #### BMP #### [address] [place] [address] Home Health Aide Caregiver: Loreta Zelaya MDBeta Hydroxybutyrateon 20-59-7889Yfmz Hydroxybutyrate3.86 mmol/LHigh0.02-0.27Sam[facility] North Health CenterComment on above: Performed By: #### INSU #### [facility] [address] [place] [id number] Home Health Aide Caregiver: Gee Royal MD [address] [place] [id number] Home Health Aide Caregiver: Loreta Zelaya MD #### CPEP #### [facility] [address] [place], [place] [id number] Home Health Aide Caregiver: Gee Royal MDBeta-Hydroxybutyrateon 31-25-8162Pase hydroxybutyrate [Mass/Vol]3.86 mmol/LHigh0.02 - 0.27 mmol/LBon [facility] Hospital - WestInterpretation and review of laboratory resultsAbnormBon Secours Mary Immaculate HospitalBlood Gas, Venouson 30-79-0508Joqhwlqq patency Wrist artery --pre arterial punctureNOT StoneSprings Hospital CenterHCO3 (Bld) [Moles/Vol]17.9 mmol/LLow24.0 - 30.0 mmol/LBon [facility] Interpretation and review of laboratory resultsAbPioneer Community Hospital of Patrick Negative Base Excess, Ven6.3 mmol/LHigh0.0 - 2.0 mmol/LBon [facility] Oxygen gas flow Oxygen delivery systemCritical access hospitalOxygen saturation in Blood83 %60.0 - 85.0 %[facility] HealthOxygen/Inspired gas Respiratory system --on sqnetsdgae88[facility] HealthpCO2, Ven32.4LowBon Secours Mercy HealthpCO2, Erik, Temp Adj32.4LowBon Secours Mercy HealthpH, Erik 7.3617.32 - 7.42[facility] HealthpH, Erik, Temp Adj7.3617.320 - 7.420[facility] HealthPO2, Ven48.2[facility] HealthpO2, Erik, Temp Adj48.2 [facility] Hospitaly HealthBon Secours [facility] Hospitaly HealthCBC with Auto Differentialon [id number] (Bld) [#/Vol]0.04 10*3/uLBon Secours Licking [facility] Hospitaly Health Basophils/100 WBC (Bld)1 %0 - 2 %[facility] Hospitaly HealthEosinophils (Bld) [#/Vol]0.15 10*3/uLBon Secours [facility]icking [facility] Hospitaly HealthEosinophils/100 WBC (Bld)3 %1 - 4 % [facility] Hospitaly HealthErythrocyte distribution width (RBC) [Ratio]11.6 %Low 11.8 - 14.4 %[facility] HealthHematocrit (Bld) [Volume fraction]46.4 % 36.3 - 47.1 %[facility] Hospitaly HealthHemoglobin (Bld) [Mass/Vol]15.8 g/dLHigh 11.9 - 15.1 g/dLBon SecSeattle VA Medical Centery HealthImmature granulocytes (Bld) [#/Vol][facility] Hospitaly HealthImmature granulocytes/100 WBC (Bld)0 %0[facility] Hospitaly HealthInterpretation and review of laboratory resultsAbnormalBon Secours [facility] Hospitaly HealthLymphocytes/100 WBC (Bld)43 %24 - 43 %Bon SecSeattle VA Medical Centery Health Lymphocytes/100 WBC (Bld)2.46 %[facility] Hospitaly [facility] CampusH (RBC) [Entitic mass] 30.5 pg25.2 - 33.5 pgBon Secours Wood County HospitalMCHC (RBC) [Mass/Vol]34.1 g/dL28.4 - 34.8 g/dLBon SecMarion HospitalV (RBC) [Entitic vol]89.6 fL82.6 - 102.9 fL [facility] HealthMonocytes/100 WBC (Bld)6 %3 - 12 %[facility] HealthMonocytes/100 WBC (Bld)0.35 %[facility] - WestNeutrophils/100 WBC (Bld)47 %36 - 65 %[facility] - WestNucleated RBC/100 WBC (Bld) [Ratio]0 % 0.0 per 100 WBCBon [facility] HealthPlatelet mean volume (Bld) [Entitic vol] 9.8 fL8.1 - 13.5 fLBon SecSaint Francis Medical Center HealthPlatelets (Bld) [#/Vol]288 10*3/uLBon SecSaint Francis Medical Center HealthRBC (Bld) [#/Vol]5.18 10*6/uLHigh3.95 - 5.11 m/uLBon [facility] Hospital - WestSegmented neutrophils/100 WBC (Bld)2.7 %Hospital Corporation Of AmericaWBC other (Bld) [#/Vol]5.7Bon SecCincinnati Children's Hospital Medical CenterBon [facility] CBC with Diffon [id number]. Basophil0.04 k/uLNormal0.00-0.20[facility] Health CenterComment on above:Performed By: #### INSU #### [place] [address] Home Health Aide Caregiver: Gee Royal MD [address] [place] [address] Home Health Aide Caregiver: Loreta Zelaya MD #### CPEP #### [facility] [employer] [address] [place], [place] [address] Home Health Aide Caregiver: Gee Royal MDAbs.Imm.Granulocyte<0.99Qwuqiy0.00-0.30[facility] Health CenterComment on above:Performed By: #### INSU #### [place] [address] Home Health Aide Caregiver: Gee Royal MD [address] [place] [address] Home Health Aide Caregiver: Loreta Zelaya MD #### CPEP #### [address] [address] Home Health Aide Caregiver: Marie Pineda.Neutrophil (Seg)2.70 k/uLNormal1.50-8.10 [facility] Health CenterComment on above:Performed By: #### INSU #### [address] [address] Home Health Aide Caregiver: Gee Royal MD [address] [place] [address] Home Health Aide Caregiver: Loreta Zelaya MD #### CPEP #### [address] [address] Home Health Aide Caregiver: Gee Royal MDBasophils/100 WBC (Bld)1 %Normal0-2MAdams County Regional Medical CenterComuniversity of michigan health on above:Performed By: #### INSU #### [address] [address] Home Health Aide Caregiver: Gee Royal MD [address] [place] [address] Home Health Aide Caregiver: Loreta Zelaya MD #### CPEP #### [address] [address] Home Health Aide Caregiver: Gee Royal MDEosinophils (Bld) [#/Vol]0.15 10*3/uLNormal 0.00-0.44[facility] Health CenterComuniversity of michigan health on above:Performed By: #### INSU #### [address] [address] Home Health Aide Caregiver: Gee Royal MD [address] [place] [address] Home Health Aide Caregiver: Loreta Zelaya MD #### CPEP #### [address] [address] Home Health Aide Caregiver: Gee Royal MDEosinophils/100 WBC (Bld)3 %Normal1-4[facility] Health CenterComment on above:Performed By: #### INSU #### [address] [address] Home Health Aide Caregiver: Gee Royal MD [address] [place] [address] Home Health Aide Caregiver: Loreta Zelaya MD #### CPEP #### [address] [address] Home Health Aide Caregiver: Gee Royal MDErythrocyte distribution width (RBC) [Ratio]11.6 %Low11.8-14.4[facility] Health CenterComment on above:Performed By: #### INSU #### [address] [address] Home Health Aide Caregiver: Gee Royal MD [address] [place] [address] Home Health Aide Caregiver: Loreta Zelaya MD #### CPEP #### [address] [address] Home Health Aide Caregiver: Gee Royal MDHematocrit (Bld) [Volume fraction]46.4 %Normal 36.3-47.1MAdams County Regional Medical CenterComment on above:Performed By: #### INSU #### [address] [address] Home Health Aide Caregiver: Gee Royal MD [address] [place] [address] Home Health Aide Caregiver: Loreta Zelaya MD #### CPEP #### [address] [address] Home Health Aide Caregiver: Gee Royal MDHemoglobin (Bld) [Mass/Vol]15.8 g/dLHigh 11.9-15.1MAdams County Regional Medical CenterComment on above:Performed By: #### INSU #### [address] [address] Home Health Aide Caregiver: [place] [address] Home Health Aide Caregiver: Loreta Zelaya MD #### CPEP #### [address] [address] Home Health Aide Caregiver: Gee Royal MDImmature granulocytes/100 WBC (Bld)0 %Normal0 [facility] Health CenterComment on above:Performed By: #### INSU #### [address] [address] Home Health Aide Caregiver: [place] [address] Home Health Aide Caregiver: Loreta Zelaya MD #### CPEP #### [address] [address] Home Health Aide Caregiver: Gee Royal MDLymphocytes (Bld) [#/Vol]2.46 10*3/uLNormal 1.10-3.70[facility] Health CenterComment on above:Performed By: #### INSU #### [address] [address] Home Health Aide Caregiver: [place] [address] Home Health Aide Caregiver: Loreta Zelaya MD #### CPEP #### [address] [address] Home Health Aide Caregiver: Gee Royal MDLymphocytes/100 WBC (Bld)43 %Pbsqie44-04KzoqzSamaritan North Health CenterComment on above:Performed By: #### INSU #### [address] [address] Home Health Aide Caregiver: Gee Royal MD [address] [place], [place] [address] Home Health Aide Caregiver: Loreta Zelaya MD #### CPEP #### [address] [address] Home Health Aide Caregiver: MIGUELINA PinedaCH (RBC) [Entitic mass]30.5 frUrnekb16.2-33.5 [facility] CenterComment on above:Performed By: #### INSU #### [address] [address] Home Health Aide Caregiver: Gee Royal MD [address] [place] [address] Home Health Aide Caregiver: Loreta Zelaya MD #### CPEP #### [address] [address] Home Health Aide Caregiver: MIGUELINA PinedaCHC (RBC) [Mass/Vol]34.1 g/wNMwxwbo41.4-34.8 [facility] CenterComment on above:Performed By: #### INSU #### [address] [address] Home Health Aide Caregiver: Gee Royal MD [address] [place] [address] Home Health Aide Caregiver: Loreta Zelaya MD #### CPEP #### [address] [address] Home Health Aide Caregiver: MIGUELINA PinedaCV (RBC) [Entitic vol]89.6 eAPgyiqh49.6-102.9 [facility] CenterComment on above:Performed By: #### INSU #### [address] [address] Home Health Aide Caregiver: Gee Royal MD [address] [place] [address] Home Health Aide Caregiver: Loreta Zelaya MD #### CPEP #### [address] [address] Home Health Aide Caregiver: Gee Royal MDMonocytes (Bld) [#/Vol]0.35 10*3/uLNormal 0.10-1.20[facility] CenterComment on above:Performed By: #### INSU #### [address] [address] Home Health Aide Caregiver: Gee Royal MD [address] [place] [address] Home Health Aide Caregiver: Loreta Zelaya MD #### CPEP #### [address] [address] Home Health Aide Caregiver: Gee Royal MDMonocytes/100 WBC (Bld)6 %Normal3-12[facility] Health CenterComment on above:Performed By: #### INSU #### [address] [address] Home Health Aide Caregiver: Gee Royal MD [address] [place] [address] Home Health Aide Caregiver: Loreta Zelaya MD #### CPEP #### [address] [address] Home Health Aide Caregiver: Gee Royal MDNeutrophil (Seg)47 %Jfuqsb38-02YdcxwSamaritan North Health CenterComment on above:Performed By: #### INSU #### [address] [address] Home Health Aide Caregiver: Gee Royal MD [address] [place] [address] Home Health Aide Caregiver: Loreta Zelaya MD #### CPEP #### [address] [address] Home Health Aide Caregiver: Gee Royal MDNRBC Automated0.0 per 100 WBCNormal0.0[facility] Health CenterComment on above:Performed By: #### INSU #### [address] [address] Home Health Aide Caregiver: Gee Royal MD [address] [place] [address] Home Health Aide Caregiver: Loreta Zelaya MD #### CPEP #### [address] [address] Home Health Aide Caregiver: Helena Pineda mean volume (Bld) [Entitic vol]9.8 fL Normal8.1-13.5[facility] Health CenterComment on above:Performed By: #### INSU #### [address] [address] Home Health Aide Caregiver: Gee Royal MD [address] [place] [address] Home Health Aide Caregiver: Loreta Zelaya MD #### CPEP #### [address] [address] Home Health Aide Caregiver: Luna Pineda (Bld) [#/Vol]288 10*3/gAXtqfdr713-819 [facility] CenterComment on above:Performed By: #### INSU #### [address] [address] Home Health Aide Caregiver: Gee Royal MD [address] [place] [address] Home Health Aide Caregiver: Loreta Zelaya MD #### CPEP #### [address] [address] Home Health Aide Caregiver: SARA Pineda (Bld) [#/Vol]5.18 10*6/uLHigh3.95-5.11[facility] CenterComuniversity of michigan health on above:Performed By: #### INSU #### [facility] [address] [place] [address] Home Health Aide Caregiver: Gee Royal MD [address] [place] [address] Home Health Aide Caregiver: Loreta Zelaya MD #### CPEP #### [address] [address] Home Health Aide Caregiver: Gee Royal MDWBC (Bld) [#/Vol]5.7 10*3/uLNormal3.5-11.3Mav[facility] health system ont[facility] hospitaly [facility]ford HospitalComment on above:Performed By: #### INSU #### [address] [address] Home Health Aide Caregiver: Gee Royal MD [address] [place] [address] Home Health Aide Caregiver: Loreta Zelaya MD #### CPEP #### [address] [address] Home Health Aide Caregiver: Gee Royal [facility] [id number] [Mass/Vol]4.2 g/dL3.5 - 5.2 g/dLBon [facility] Hospital - WestAlbumin/Globulin [Mass ratio]1.4 {ratio}1.0 - 2.5Bon [facility] Hospital - WestALP [Catalytic activity/Vol]148 U/LHigh35 - 104 U/L [facility] HealthALT [Catalytic activity/Vol]27 U/L10 - 35 U/LBon [facility] Hospital - WestAnion gap [Moles/Vol]19 mmol/LHigh9 - 16 mmol/LBon [facility] HealthAST [Catalytic activity/Vol]19 U/L10 - 35 U/LBon [facility] Health Comment on above:Specimen hemolysis has exceeded the interference as defined by Kat. Value may be falsely increased. Suggest recollection if clinically indicated. Bilirubin [Mass/Vol]0.3 mg/dL0.00 - 1.20 mg/dLBon [facility] Hospital - WestCalcium [Mass/Vol]9.2 mg/dL8.6 - 10.4 mg/dLBon [facility] Hospital - WestChloride [Moles/Vol] 92 mmol/LLow98 - 107 mmol/LBon [facility] HospitalDragonfly [facility] HospitalShelfari [facility] Community HospitalCO2 [Moles/Vol]19 mmol/LLow20 - 31 mmol/LBon [facility] HospitalDragonfly [facility] HospitalShelfari [facility] Community HospitalCreatinine [Mass/Vol]0.6 mg/dL0.50 - 0.90 mg/dLBon St Luke Medical CenterShelfari [facility]oria Community HospitalEst, Glom Filt Rate- PINFBon [facility] Comment on above: These results are not [...] Glucose [Mass/Vol]516 mg/dLCritically high74 - 99 mg/dLBon [facility] [place] Interpretation and review of laboratory resultsAbnormalBon [facility] Potassium [Moles/Vol]4.8 mmol/L3.7 - 5.3 mmol/LBon St Luke Medical CenterShelfari [facility]ost[facility] Community HospitalComment on above:Specimen hemolysis has exceeded the interference as defined by Kat. Value may be falsely increased. Suggest recollection if clinically indicated. Protein [Mass/Vol]7.2 g/dL6.6 - 8.7 g/dLBon [facility] Hospital - WestSodium [Moles/Vol]130 mmol/FEoz084 - 145 mmol/LBon [facility] HospitalDragonfly [facility] HospitalShelfari [facility] Community HospitalUrea nitrogen [Mass/Vol]19 mg/dL6 - 20 mg/dLBon [facility] - WestUrea nitrogen/Creatinine [Mass ratio]32 mg/mgHigh9 - 20Bon [facility] HospitalSightCine [facility] Community HospitalCT HEAD WO CONTRASTon [id number] HEAD WO CONTRASTEXAMINATION: CT OF THE HEAD [...] Signed by: Tavo Almonte MD 12/20/24 Final resultNormalMerYale New Haven Psychiatric HospitalCT Head WO contraston [id number] acute intracranial abnormality. [facility] CONSOLIDATEDEXAMINATION: CT OF THE HEAD WITHOUT CONTRAST [...] or soft tissues. [facility] Tavo Claudio MD - 12/20/2024 EXAMINATION: CT [...] soft tissues. IMPRESSION: No acute intracranial abnormality. [facility] LiBRadiology Study observation (narrative)[facility] LiBCT Head WO contrastOrdered By: Tavo Almonte on [id number] [employer] Work Phone: CTA HEAD NECK W CONTRASTon [id number] HEAD NECK W CONTRASTEXAMINATION: CTA OF THE [...] Signed by: Amaury Khan MD 12/20/24 Final resultNormalMerYale New Haven Psychiatric Hospital Head vessels and Neck vessels W contrast Wesley . No evidence of arterial stenosis or occlusion in the head or neck. 2. Diffuse goiter. [facility] RIS CONSOLIDATEDEXAMINATION: CTA OF THE HEAD AND [...] the head or neck. 2. Diffuse goiter. [facility] Corporation Of AmericaRadiology Study observation (narrative)[facility]ospital Corporation Of AmericaCTA Head vessels and Neck vessels W contrast IVOrdered By: Amaury Khan on [id number] Luke Medical CenterStarmount Work Phone: Comp Metabolic Profon [id number] [Mass/Vol]4.2 g/dLNormal3.5-5.2MAdams County Regional Medical CenterComment on above:Performed By: #### INSU #### [address] [address] Home Health Aide Caregiver: Gee Royal MD [address] [place], [place] [address] Home Health Aide Caregiver: Loreta Zelaya MD #### CPEP #### [address] [address] Home Health Aide Caregiver: Gee Royal MDAlbumin/Glob Ratio1.5Xakrda5.0-2.5[facility] CenterComment on above:Performed By: #### INSU #### [address] [address] Home Health Aide Caregiver: Gee Royal MD [address] [place] [address] Home Health Aide Caregiver: Loreta Zelaya MD #### CPEP #### [address] [address] Home Health Aide Caregiver: Reny Pineda Kbew046 U/VWukm30-389CnpumSamaritan North Health CenterComment on above:Performed By: #### INSU #### [address] [address] Home Health Aide Caregiver: Gee Royal MD [address] [place] [address] Home Health Aide Caregiver: Loreta Zelaya MD #### CPEP #### [address] [address] Home Health Aide Caregiver: SAMANTHA Pineda [Catalytic activity/Vol]27 U/UOyoxbt27-01 [facility] CenterComment on above:Performed By: #### INSU #### [address] [address] Home Health Aide Caregiver: Gee Royal MD [address] [place], [place] [address] Home Health Aide Caregiver: Loreta Zelaya MD #### CPEP #### [address] [address] Home Health Aide Caregiver: Gee Royal MDAnion gap [Moles/Vol]19 mmol/LHigh9-16[facility] Health CenterComment on above:Performed By: #### INSU #### [address] [address] Home Health Aide Caregiver: Gee Royal MD [address] [place] [address] Home Health Aide Caregiver: Loerta Zelaya MD #### CPEP #### [address] [address] Home Health Aide Caregiver: Gee Royal MDAST [Catalytic activity/Vol]19 U/IUwlncn80-39 [facility] CenterComuniversity of michigan health on above:Result Comment: Specimen hemolysis has exceeded the interference as defined by Kat. Value may be falsely increased. Suggest recollection if clinically indicated.Performed By: #### INSU #### [facility] [address] [place] [address] Home Health Aide Caregiver: Gee Royal MD [address] [place] [address] Home Health Aide Caregiver: Loreta Zelaya MD #### CPEP #### [address] [address] Home Health Aide Caregiver: Gee Royal MDBilirubin [Mass/Vol]0.3 mg/dLNormal0.00-1.20 [facility] CenterComuniversity of michigan health on above:Performed By: #### INSU #### [facility] [address] [place] [address] Home Health Aide Caregiver: Gee Royal MD [address] [place] [address] Home Health Aide Caregiver: Loreta Zelaya MD #### CPEP #### [address] [address] Home Health Aide Caregiver: Gee Royal MDBUN/CRE Baglp32Lqvt4-51MgsbjSamaritan North Health Center Comment on above:Performed By: #### INSU #### [address] [address] Home Health Aide Caregiver: Gee Royal MD [address] [place], [place] [address] Home Health Aide Caregiver: Loreta Zelaya MD #### CPEP #### [address] [address] Home Health Aide Caregiver: RUTH Pinedaalcium [Mass/Vol]9.2 mg/dLNormal8.6-10.4[facility] CenterComment on above:Performed By: #### INSU #### [address] [address] Home Health Aide Caregiver: Gee Royal MD [address] [place] [address] Home Health Aide Caregiver: Loreta Zelaya MD #### CPEP #### [address] [address] Home Health Aide Caregiver: RUTH Pinedahloride [Moles/Vol]92 mmol/AWgi73-432TwwinSamaritan North Health CenterComment on above:Performed By: #### INSU #### [address] [address] Home Health Aide Caregiver: Gee Royal MD [address] [place], [place] [address] Home Health Aide Caregiver: Loreta Zelaya MD #### CPEP #### [address] [address] Home Health Aide Caregiver: RUTH PinedaO2 [Moles/Vol]19 mmol/MYxz24-92MjatdSamaritan North Health CenterComment on above:Performed By: #### INSU #### [address] [address] Home Health Aide Caregiver: Gee Royal MD [address] [place] [address] Home Health Aide Caregiver: Loreta Zelaya MD #### CPEP #### [address] [address] Home Health Aide Caregiver: RUHT Pinedareatinine [Mass/Vol]0.6 mg/dLNormal0.50-0.90 [facility] CenterComment on above:Performed By: #### INSU #### [address] [address] Home Health Aide Caregiver: Gee Royal MD [address] [place] [address] Home Health Aide Caregiver: Loreta Zelaya MD #### CPEP #### [address] [address] Home Health Aide Caregiver: Gee Royal MDGFR/1.73 sq M.predicted among non-blacks MDRD (S/P/Bld) [Vol rate/Area]mL/min/{1.73_m2}Normal>60[facility] CenterComment on above:Result Comment: These results are [...] renal tubular secretion.Performed By: #### INSU #### [address] [address] Home Health Aide Caregiver: Gee Royal MD [address] [place] [address] Home Health Aide Caregiver: Loreta Zelaya MD #### CPEP #### [address] [address] Home Health Aide Caregiver: Gee Royal MDGlucose [Mass/Vol]516 mg/dLCritically prey74-18 [facility] CenterComment on above:Performed By: #### INSU #### [address] [address] Home Health Aide Caregiver: Gee Royal MD [address] [place] [address] Home Health Aide Caregiver: Loreta Zelaya MD #### CPEP #### [address] [address] Home Health Aide Caregiver: Gee Roayl MDPotassium [Moles/Vol]4.8 mmol/LNormal3.7-5.3 [facility] CenterComment on above:Result Comment: Specimen hemolysis has exceeded the interference as defined by Kat. Value may be falsely increased. Suggest recollection if clinically indicated.Performed By: #### INSU #### [address] [address] Home Health Aide Caregiver: Gee Royal MD [address] [place] [address] Home Health Aide Caregiver: Loreta Zelaya MD #### CPEP #### [address] [address] Home Health Aide Caregiver: Gee Royal MDProtein [Mass/Vol]7.2 g/dLNormal6.6-8.7[facility] Health CenterComment on above:Performed By: #### INSU #### [address] [address] Home Health Aide Caregiver: Gee Royal MD [facility] [address] [place] [address] [place] [address] Home Health Aide Caregiver: Loreta Zelaya MD #### CPEP #### [facility] [address] [place] [address] Home Health Aide Caregiver: QUAN Pinedaodium [Moles/Vol]130 mmol/MFly019-198UmhsrSamaritan North Health CenterComuniversity of michigan health on above:Performed By: #### INSU #### [address] [address] Home Health Aide Caregiver: Gee Royal MD [address] [place], [place] [id number] Home Health Aide Caregiver: Loreta Zelaya MD #### CPEP #### [address] [address] Home Health Aide Caregiver: Gee Royal MDUrea nitrogen [Mass/Vol]19 mg/dLNoal6-20[facility] Health CenterComment on above:Performed By: #### INSU #### [address] [address] Home Health Aide Caregiver: Gee Royal MD [address] [place] [address] Home Health Aide Caregiver: Loreta Zelaya MD #### CPEP #### [address] [address] Home Health Aide Caregiver: Gee Royal MDGlucose, Whole Bloodon 93-27-2074Zkjjgvs [Mass/Vol]458 mg/wDPyxv31 - 100 mg/dLBon [facility] Hospital - WestInterpretation and review of laboratory resultsAbnoSturgis Regional HospitalGlucose [Mass/Vol]458 mg/xEJmec85-999AfffySamaritan North Health CenterGlucose [Mass/Vol]506 mg/dLCritically high74 - 100 mg/dLBon [facility] Interpretation and review of laboratory resultsAbnormPage Memorial Hospital Bon [facility] - WestGlucose [Mass/Vol]506 mg/dLCritically mnav76-398SotgySamaritan North Health CenterMagnesiumon 98-95-5936Spprtbtua [Mass/Vol]2 mg/dL1.6 - 2.6 mg/dL [facility] Corporation Of AmericaMagnesium [Mass/Vol]2.0 mg/dLNormal1.6-2.6Mercy Milford HospitalComment on above:Performed By: #### UOSMO #### [address] [place] [address] Home Health Aide Caregiver: Gee Royal MD #### URNA #### [address] [place] [address] Home Health Aide Caregiver: Loreta Zelaya MDNo Panel Informationon 16-85-9035Klh [facility] - WestTroponinon 45-51-4254Bpzofzaf I.cardiac High sensitivity method [Mass/Vol]ng/L0 - 14 ng/LBon [facility] Hospital - WestComuniversity of michigan health on above:High Sensitivity Troponin values cannot be compared with other Troponin methodologies.Troponin, High Sens<7Wycdke8-31XhcfrSamaritan North Health CenterComuniversity of michigan health on above:Result Comment: High Sensitivity Troponin values cannot be compared with other Troponin methodologies.Performed By: #### UOSMO #### [address] [address] [place] [address] Home Health Aide Caregiver: Gee Royal MD #### URNA #### [address] [place] [address] Home Health Aide Caregiver: Loreta Zelaya MDVenous Blood Gaseson 86-33-7574Axaxn TestNOT APPLICABLENormalSamaritan North Health CenterComuniversity of michigan health on above:Performed By: #### VBG #### [address] [place] [address] Home Health Aide Caregiver: Loreta Zelaya MDFall River Emergency Hospital Temp.37.0NormalSamaritan North Health CenterComment on above:Performed By: #### VBG #### [address] [place], [place] [address] Home Health Aide Caregiver: Loreta Zelaya MDFPORE888BakljgDtigfDunlap Memorial HospitalComment on above: Performed By: #### VBG #### [facility] [address] [place] [address] Dr[address] [place], [place] [id number] Home Health Aide Caregiver: Loreta Zelaya MDHCO3 (Bld) [Moles/Vol]17.9 mmol/LLow24.0-30.0[facility] Campus HospitalComment on above:Performed By: #### VBG #### [facility] [address] [place] [address] [address] [place], [place] [address] Home Health Aide Caregiver: Loreta Zelaya MDNegative Base Excess6.3 mmol/LHigh0.0-2.0[facility] Health CenterComment on above:Performed By: #### VBG #### [address] [place], [place] [address]83 Home Health Aide Caregiver: Loreta Zelaya MDO2 Device/Flow/%ROOM AIRNormMercer County Community Hospital HospitalComment on above:Performed By: #### VBG #### [address] [place], [place] [address]83 Home Health Aide Caregiver: Loreta Zelaya MDOxygen saturation in Blood83.0 %Gzxpuo71.0-85.0 [facility] Health CenterComment on above:Performed By: #### VBG #### [facility] [address] [place] [address] [place] [address] Home Health Aide Caregiver: Suzy FrazierCO232.4 mm ZtGtc27-82Hqyjv Tiffin HospitalComment on above:Performed By: #### VBG #### [facility] [address] [place] [address] [place] [address] Home Health Aide Caregiver: SUZY Frazierco2 Adj'd for Temp.32.4 suSiXlu05.0-55.0[facility] HospitalComment on above:Performed By: #### VBG #### [facility] [address] [place] [address] [place] [place], [place] [id number] Home Health Aide Caregiver: Loreta Zelaya [facility] (Bld)7.361 [pH]Normal7.32-7.42[facility] Health CenterComment on above:Performed By: #### VBG #### [address] [place], [place] [address] Home Health Aide Caregiver: Loreta Zelaya [facility] Adjst'd for Temp.7.189Upvzpq0.320-7.420[facility] Health CenterComment on above:Performed By: #### VBG #### [address] [place] [address] Home Health Aide Caregiver: Suzy FrazierO248.2 mm RrPkfcfa85.0-50.0[facility] Comment on above:Performed By: #### VBG #### [address] [place] [address] Home Health Aide Caregiver: Suzy Frazier Adj'd for Temp.48.2 fsYqAexpzg32.0-50.0[facility] Health CenterComment on above:Performed By: #### VBG #### [address] [place], [place] [address] Home Health Aide Caregiver: JENNIFER Frazier PELVIS COMPLETE NON-OB TRANSABD/TRANSVAG W DOPPLERon 63-11-0868TM PELVIS COMPLETE NON-OB TRANSABD/TRANSVAG W DOPPLER EXAMINATION: [...] Signed by: Trino Cantor MD 12/18/24 Final resultNoMercy Health Perrysburg HospitalI LUMBAR SPINE WO CONTRASTon 12-13-2024 MRI [...] Signed by: Chas Vásquez MD 12/13/24 Final resultNormDunlap Memorial HospitalXR KNEE LEFT (1-2 VIEWS)on 09-59-8059FF KNEE LEFT (1-2 VIEWS)EXAM: 2 VIEWS XRAY [...] Signed by: Emiliano Tran MD 12/10/24 Final resultNormalOhioHealth Grady Memorial Hospital Knee - left 1 or 2 Viewson 12-10-2024 1. No acute findings. 2. Mild loss of joint space in the medial and lateral compartments compatible with degenerative change. [facility] CONSOLIDATEDEXAM: 2 VIEWS XRAY OF THE LEFT [...] are unremarkable. [facility] Emiliano Carter MD - 12/10/2024 EXAM: 2 [...] and lateral compartments compatible with degenerative change. [facility] Knee - left 1 or 2 ViewsOrdered By: Emiliano Tran on 23-71-0988Fyz [facility] Work Phone: HIV Ag/Abon 07-69-1855QIA Ag/AbNon-ReactiveNormalCorey HospitalComment on above:Result Comment: No laboratory evidence of HIV infection. If acute HIV infection is suspected, consider testing for HIV-1 RNA.Performed By: #### INSU #### [address] [address] Home Health Aide Caregiver: Gee Royal MD [address] [place] [address] Home Health Aide Caregiver: Loreta Zelaya MD #### CPEP #### [address] [address] Home Health Aide Caregiver: Rani PinedaFormerly [facility] 18-12-7926Dlk A Ab,IgM Non-ReactiveNormUniversity Hospitals Geneva Medical CenterComment on above:Performed By: #### INSU #### [address] [address] Home Health Aide Caregiver: Gee Royal MD [address] [place] [address] Home Health Aide Caregiver: Loreta Zelaya MD #### CPEP #### [address] [address] Home Health Aide Caregiver: Amna Pineda Core Ab,IgMNon-ReactiveAultman HospitalComment on above:Performed By: #### INSU #### [address] [address] Home Health Aide Caregiver: Gee Royal MD [address] [place] [address] Home Health Aide Caregiver: Loreta Zelaya MD #### CPEP #### [address] [address] Home Health Aide Caregiver: Amna Pineda Surf AgNon-ReactiveAultman HospitalComment on above:Performed By: #### INSU #### [address] [address] Home Health Aide Caregiver: Gee Royal MD [address] [place], [place] [id number] Home Health Aide Caregiver: Loreta Zelaya MD #### CPEP #### [address] [address] Home Health Aide Caregiver: Amna Pineda AbNon-ReactiveAultman HospitalComment on above:Result Comment: The hepatitis C [...] RNA by PCR.Performed By: #### INSU #### [address] [address] Home Health Aide Caregiver: Gee Royal MD [address] [place] [address] Home Health Aide Caregiver: Loreta Zelaya MD #### CPEP #### [address] [address] Home Health Aide Caregiver: SUZY Pinedarolactinon 77-77-4964Gfxqvajou2.51 ng/mLLow 4.79-23.3Mercy Milford HospitalComment on above:Result Comment: The presence of macroprolactin may cause interference in female patients with various endocrinological diseases or during .Performed By: #### INSU #### [address] [address] Home Health Aide Caregiver: Gee Royal MD [address] [place] [address] Home Health Aide Caregiver: Loreta Zelaya MD #### CPEP #### [address] [address] Home Health Aide Caregiver: Gee Royal MDT.pallidum Ab Screenon 12-09-2024T.pallidum Ab ScreenNon-ReactiveAultman HospitalComment on above:Result Comment: T. pallidum antibodies are not detected. There is no serological evidence of infection with T. pallidum (early primary syphilis cannot be excluded). Retest in 2-4 weeks if syphilis is clinically suspect.Performed By: #### INSU #### [facility] [address] [place] [address] Home Health Aide Caregiver: Gee Royal MD [facility] [address] [place] [address] Home Health Aide Caregiver: Loreta Zelaya MD #### CPEP #### [facility] [address] [place] [address] Home Health Aide Caregiver: Gee Royal MDUS THYROIDon 37-06-8296NW THYROIDEXAMINATION: THYROID ULTRASOUND 12/08/2024 COMPARISON: None. TECHNIQUE: Real-time and color flow sonographic images were obtained using a linear transducer. [id number]. HISTORY: F 49 y/o old. ORDERING SYSTEM [...] (2) 2. Echogenicity: Isoechoic (1) 3. Shape: Biein-zybj-jdpw (0) 4. Margins: Ill-defined (0) 5. Echogenic [...] by: Brandt Kirk DO 12/08/24 Final resultNormalMercy Saint Mary's Hospital Thyroid glandon . 16 mm TI- [...] more than four nodules should be followed. [facility] RIS CONSOLIDATEDEXAMINATION: THYROID ULTRASOUND 12/08/2024 COMPARISON: None. TECHNIQUE: Real-time and color flow sonographic images were obtained using a linear transducer. [id number]. HISTORY: F 49 y/o old. ORDERING SYSTEM [...] (2) 2. Echogenicity: Isoechoic (1) 3. Shape: Zzkpa-eiut-qzuh (0) 4. Margins: Ill-defined (0) 5. Echogenic foci: None (0) ACR TI-RADS total points: 3 ACR TI-RADS risk category: TR3 Soft tissues: No visualized lymphadenopathy PN Brandt Moody, DO - 12/08/2024 EXAMINATION: THYROID ULTRASOUND 12/08/2024 COMPARISON: None. TECHNIQUE: Real-time and color flow sonographic images were obtained using a linear transducer. [id number]. HISTORY: F 49 y/o old. ORDERING SYSTEM [...] (2) 2. Echogenicity: Isoechoic (1) 3. Shape: Ixuff-kslc-xhta (0) 4. Margins: Ill-defined (0) 5. Echogenic [...] more than four nodules should be followed. TachyusRadiology Study observation (narrative)Tachyus Thyroid glandOrdered By: Brandt Kirk on 92-93-4610Bje [employer] Work Phone: xr Knee - left 1 or 2 Viewson 14-52-8922Cwilfihfi Study observation (narrative)TachyusCHLAMYDIA/GC BY PCR IMELDA SWABon [id number]/GC BY PCR IMELDA SWABCHLAMYDIA DNA(PCR) Negative Chlamydia trachomatis not detected by nucleic acid amplification. This does not exclude the possibility of infection because results are dependent on adequate specimen collection. GONORRHOEAE DNA(PCR) Negative Neisseria gonorrhoeae not detected by nucleic acid amplification. This does not exclude the possibility of infection because results are dependent on adequate specimen collection.[facility] Ambulatory PPGComment on above: Performed By: #### CGS #### [facility] ([facility]) [address] [place] [address] VIRVAGINITIS PANEL PCRon [id number] PANEL PCRBACT. VAGINOSIS DNA Not Detected Qualitative [...] accordance with clinical presentation to determine patient diagnosis.NormalSelect Medical TriHealth Rehabilitation Hospital Ambulatory PPGComment on above:Performed By: #### VPPCR #### [facility] ([facility]) [address] [place] [address] VIRAlbumin/Creat Ratio, Urineon 40-12-6777Yafasom,conc.[place] U <31Endhsn6-99CbhpwYale New Haven Psychiatric HospitalComment on above:Performed By: #### CDP #### [address] [place] [address] Home Health Aide Caregiver: Loreta Zelaya, MDAlbumin/Creat RatioCan not be calculatedNormal 0.0-25.0[facility] HospitalComment on above:Performed By: #### CDP #### [address] [place] [address] Home Health Aide Caregiver: Loreta Zelaya MDCreatinine Conc.15.9 mg/dLLow28.0-217.0[facility] Health CenterComment on above:Result Comment: Reference range defined for 1st morning urinePerformed By: #### CDP #### [address] [place] [address] Home Health Aide Caregiver: Loreta Zelaya MDAlbumin/Creatinine Ratio, Urineon 11-14-2024 Albumin DL <= 20 mg/L (U) [Mass/Vol]mg/L0 - 20 mg/LBon [facility] Albumin/Creatinine DL <= 20 mg/L (U) [Ratio]Can not be calculatedBon [facility] Hospital - WestCreatinine (U) [Mass/Vol]15.9 mg/dLLow28.0 - 217.0 mg/dLBon [facility] Hospital - WestComment on above:Reference range defined for 1st morning urine Interpretation and review of laboratory resultsAbnormalBon [facility] Rehabilitation HospitalCBC with Auto Differentialon [id number] (Bld) [#/Vol]0.03 10*3/uLBon [facility] Hospital - WestBasophils/100 WBC (Bld)1 %0 - 2 %[facility]ospital Corporation Of AmericaEosinophils (Bld) [#/Vol]0.08 10*3/uLBon [facility] Hospital - WestEosinophils/100 WBC (Bld)2 %1 - 4 %[facility] AmericaErythrocyte distribution width (RBC) [Ratio]11.9 %11.8 - 14.4 %[facility] Hematocrit (Bld) [Volume fraction]41.4 %36.3 - 47.1 %[facility] Hemoglobin (Bld) [Mass/Vol]13.7 g/dL11.9 - 15.1 g/dLBon [facility] Immature granulocytes (Bld) [#/Vol][facility] AmericaImmature granulocytes/100 WBC (Bld)0 %0Bon [facility] Hospital - WestLymphocytes/100 WBC (Bld) 29 %24 - 43 %[facility] AmericaLymphocytes/100 WBC (Bld)1.41 %[facility] HospitalH (RBC) [Entitic mass]32.7 pg25.2 - 33.5 pgBon Trinity Health SystemHC (RBC) [Mass/Vol]33.1 g/dL28.4 - 34.8 g/dLBon Trinity Health SystemV (RBC) [Entitic vol]98.8 fL82.6 - 102.9 fLHospital Corporation Of AmericaMonocytes/100 WBC (Bld)6 %3 - 12 %[facility] AmericaMonocytes/100 WBC (Bld)0.31 %[facility] AmericaNeutrophils/100 WBC (Bld)62 %36 - 65 %[facility] AmericaNucleated RBC/100 WBC (Bld) [Ratio]0 %0.0 per 100 WBCHospital Corporation Of AmericaPlatelet mean volume (Bld) [Entitic vol]9.8 fL8.1 - 13.5 fLHospital Corporation Of AmericaPlatelets (Bld) [#/Vol]335 10*3/uLBon [facility] Memorial Hospital - WestRBC (Bld) [#/Vol]4.19 10*6/uL3.95 - 5.11 m/uLHospital Corporation Of AmericaSegmented neutrophils/100 WBC (Bld)3 %Bon [facility] - WestWBC other (Bld) [#/Vol]4.9 [facility] HospitalCB with Diffon 97-84-3291Bjl. Basophil0.03 k/uLNormal0.00-0.20Mercy [facility]ampden HospitalComment on above:Performed By: #### CDP #### [address] [place] [address] Home Health Aide Caregiver: MDAbs. KarinImm.Granulocyte<0.25Tskrwp5.00-0.30MerOhioHealth O'Bleness Hospital HospitalComment on above:Performed By: #### CDP #### [address] [place] [address] Home Health Aide Caregiver: MDAbs. KarinNeutrophil (Seg)3.00 k/uLNormal1.50-8.10MerOhioHealth O'Bleness Hospital HospitalComment on above:Performed By: #### CDP #### [address] [place] [address] Home Health Aide Caregiver: Loreta Zelaya MDBasophils/100 WBC (Bld)1 %Normal0-2Mercy [facility]amp[facility] HospitalComment on above:Performed By: #### CDP #### [address] [place] [address] Home Health Aide Caregiver: Loreta Zelaya MDEosinophils (Bld) [#/Vol]0.08 10*3/uLNormal 0.00-0.44MerOhioHealth O'Bleness Hospital HospitalComment on above:Performed By: #### CDP #### [address] [place], [place] [address]383 Home Health Aide Caregiver: Loreta Zelaya MDEosinophils/100 WBC (Bld)2 %Normal1-4[facility] Health CenterComment on above:Performed By: #### CDP #### [address] [place] [address] Home Health Aide Caregiver: Loreta Zelaya MDErythrocyte distribution width (RBC) [Ratio]11.9 % Xtlonk07.8-14.4[facility] HospitalComment on above:Performed By: #### CDP #### [address] [place] [address] Home Health Aide Caregiver: Loreta Zelaya MDHematocrit (Bld) [Volume fraction]41.4 %Normal 36.3-47.1MKettering Health Preble HospitalComment on above:Performed By: #### CDP #### [address] [place], [place] [address] Home Health Aide Caregiver: Loreta Zelaya MDHemoglobin (Bld) [Mass/Vol]13.7 g/dLNormal 11.9-15.1MKettering Health Preble HospitalComment on above:Performed By: #### CDP #### [address] [place], [place] [address] Home Health Aide Caregiver: Loreta Zelaya MDImmature granulocytes/100 WBC (Bld)0 %Gmdedg0Gupcs [facility]iffin HospitalComment on above:Performed By: #### CDP #### [address] [place], [facility]83 Home Health Aide Caregiver: Loreta Zelaya MDLymphocytes (Bld) [#/Vol]1.41 10*3/uLNormal 1.10-3.70[facility] HospitalComment on above:Performed By: #### CDP #### [address] [place], [facility]83 Home Health Aide Caregiver: Loreta Zelaya MDLymphocytes/100 WBC (Bld)29 %Iesxlc13-70KvjvvSamaritan North Health CenterComment on above:Performed By: #### CDP #### [address] [place], [place] [address] Home Health Aide Caregiver: MIGUELINA FrazierCH (RBC) [Entitic mass]32.7 gcRbxjxj65.2-33.5 [facility] HospitalComment on above:Performed By: #### CDP #### [address] [place] [address] Home Health Aide Caregiver: MIGUELINA FrazierCHC (RBC) [Mass/Vol]33.1 g/zDUntsqm85.4-34.8[facility] Health CenterComment on above:Performed By: #### CDP #### [address] [place] [address] Home Health Aide Caregiver: MIGUELINA FrazierCV (RBC) [Entitic vol]98.8 mDCohmmr82.6-102.9 [facility] CenterComment on above:Performed By: #### CDP #### [address] [place] [address] Home Health Aide Caregiver: MIGUELINA Frazieronocytes (Bld) [#/Vol]0.31 10*3/uLNormal0.10-1.20 [facility] CenterComment on above:Performed By: #### CDP #### [address] [place] [address] Home Health Aide Caregiver: MIGUELINA Frazieronocytes/100 WBC (Bld)6 %Normal3-12[facility] Health CenterComment on above:Performed By: #### CDP #### [address] [place], [place] [address] Home Health Aide Caregiver: Loreta Zelaya MDNeutrophil (Seg)62 %Kortha03-31Xheke Hampden HospitalComment on above:Performed By: #### CDP #### [facility] [address] [place] [address] Home Health Aide Caregiver: TYREL Frazier Automated0.0 per 100 WBCNormal0.0[facility] HospitalComment on above:Performed By: #### CDP #### [facility] [address] [place] [address] Home Health Aide Caregiver: Helena Frazier mean volume (Bld) [Entitic vol]9.8 fL Normal8.1-13.5[facility] HospitalComment on above:Performed By: #### CDP #### [address] [place] [address] Home Health Aide Caregiver: Luna Frazier (Bld) [#/Vol]335 10*3/vQAwjsob382-313 [facility] HospitalComment on above:Performed By: #### CDP #### [address] [place] [address] Home Health Aide Caregiver: SARA Frazier (Bld) [#/Vol]4.19 10*6/uLNormal3.95-5.11Toledo Hospitalcy [place] HospitalComment on above:Performed By: #### CDP #### [address] [place] [address] Home Health Aide Caregiver: TSERING Frazier (Bld) [#/Vol]4.9 10*3/uLNormal3.5-11.3Mercy [facility] HospitalComment on above:Performed By: #### CDP #### [address] [place] [address] Home Health Aide Caregiver: RUTH Frazierbrigham city community hospital Metabolic Profon 77-29-6942Vlbaieb [Mass/Vol] 4.4 g/dLNormal3.5-5.2Mercy [facility] HospitalComment on above:Performed By: #### VBG #### [address] [place] [address] Home Health Aide Caregiver: Loreta Zelaya MDAlbumin/Glob Ratio1.3Qdolkq4.0-2.5MerOhioHealth O'Bleness Hospital HospitalComment on above:Performed By: #### VBG #### [address] [place] [address] Home Health Aide Caregiver: Bill Frazierkaline Dapk503 U/MWrye62-300Jyyem Tiffin HospitalComment on above:Performed By: #### VBG #### [address] [place] [address] Home Health Aide Caregiver: Loreta Zelaya MDALT [Catalytic activity/Vol]24 U/LQwryfh92-20Twbmy [facility]iffin HospitalComment on above:Performed By: #### VBG #### [address] [place] [address] Home Health Aide Caregiver: Loreta Zelaya MDAnion gap [Moles/Vol]13 mmol/LNormal9-16[facility] HospitalComment on above:Performed By: #### VBG #### [address] [place] [address] Home Health Aide Caregiver: Loreta Zelaya MDAST [Catalytic activity/Vol]18 U/KPdbyxb44-46Scgqw [facility] HospitalComment on above:Performed By: #### VBG #### [facility] [address] [place] [address] [place] [address] Home Health Aide Caregiver: Loreta Zelaya MDBilirubin [Mass/Vol]mg/dLNormal0.00-1.20MerOhioHealth O'Bleness Hospital HospitalComment on above:Performed By: #### VBG #### [address] [place] [address] Home Health Aide Caregiver: Loreta Zelaya MDBUN/CRE Efmgk60Spnf2-25GgontSamaritan North Health Center Comment on above:Performed By: #### VBG #### [facility] [address] [place] [address] [place] [place], [place] [id number] Home Health Aide Caregiver: RUTH Frazieralcium [Mass/Vol]9.4 mg/dLNormal8.6-10.4[facility] Health CenterComment on above:Performed By: #### VBG #### [facility] [address] [place] [address] [place] [address] Home Health Aide Caregiver: RUTH Frazirehloride [Moles/Vol]95 mmol/RYns28-475DffsmSamaritan North Health CenterComment on above:Performed By: #### VBG #### [address] [place] [address] Home Health Aide Caregiver: RUTH FrazierO2 [Moles/Vol]25 mmol/TXcrxor85-21DqycxYale New Haven Psychiatric HospitalComment on above:Performed By: #### VBG #### [address] [place], [place] [address] Home Health Aide Caregiver: RUTH Frazierreatinine [Mass/Vol]0.6 mg/dLNormal0.50-0.90[facility] Health CenterComment on above:Performed By: #### VBG #### [address] [place], [place] [address]83 Home Health Aide Caregiver: Loreta Zelaya MDGFR/1.73 sq M.predicted among non-blacks MDRD (S/P/Bld) [Vol rate/Area]mL/min/{1.73_m2}Normal>60[facility] Health CenterComment on above:Result Comment: These results are [...] renal tubular secretion.Performed By: #### VBG #### [address] [place], [place] [address] Home Health Aide Caregiver: Loreta Zelaya MDGlucose [Mass/Vol]605 mg/dLCritically tiey75-05 [facility] Health CenterComment on above:Performed By: #### VBG #### [address] [place] [address] Home Health Aide Caregiver: SUZY Frazierotassium [Moles/Vol]4.7 mmol/LNormal3.7-5.3MAdams County Regional Medical CenterComment on above:Result Comment: Specimen hemolysis has exceeded the interference as defined by Kat. Value may be falsely increased. Suggest recollection if clinically indicated.Performed By: #### VBG #### [address] [place] [address] Home Health Aide Caregiver: SUZY Frazierrotein [Mass/Vol]7.1 g/dLNormal6.6-8.7Sam[facility] North Health CenterComment on above:Performed By: #### VBG #### [address] [place] [address] Home Health Aide Caregiver: Loreta Zelaya MDSodium [Moles/Vol]133 mmol/BXdj477-406OivniSamaritan North Health CenterComment on above:Performed By: #### VBG #### [address] [place] [address] Home Health Aide Caregiver: Loreta Zelaya MDUrea nitrogen [Mass/Vol]21 mg/dLHigh6-20[facility] Health CenterComment on above:Performed By: #### VBG #### [address] [place], [place] [id number] Home Health Aide Caregiver: RUTH Frazieromprehensive Metabolic Panelon [id number] [Mass/Vol]4.4 g/dL3.5 - 5.2 g/dLBon LiBAlbumin/Globulin [Mass ratio]1.6 {ratio}1.0 - 2.5Bon [facility] ReserveMyHomeALP [Catalytic activity/Vol] 224 U/LHigh35 - 104 U/LBon [facility] ReserveMyHomeALT [Catalytic activity/Vol]24 U/L10 - 35 U/LBon [facility] ReserveMyHomeAnion gap [Moles/Vol]13 mmol/L9 - 16 mmol/LBon [facility] valuescope HealthAST [Catalytic activity/Vol]18 U/L10 - 35 U/LBon [facility] ReserveMyHomeBilirubin [Mass/Vol]mg/dL0.00 - 1.20 mg/dLBon [facility] ReserveMyHomeCalcium [Mass/Vol]9.4 mg/dL8.6 - 10.4 mg/dLBon [facility] ReserveMyHome Chloride [Moles/Vol]95 mmol/LLow98 - 107 mmol/LBon [facility] ReserveMyHomeCO2 [Moles/Vol]25 mmol/L20 - 31 mmol/LBon [facility] ReserveMyHomeCreatinine [Mass/Vol] 0.6 mg/dL0.50 - 0.90 mg/dLBon [facility] HospitalSlingboxEst, Glom Filt Rate- PINFBon [facility] HospitalSlingboxComment on above: These results are not intended [...] Glucose [Mass/Vol]605 mg/dLCritically high74 - 99 mg/dLBon LiB Interpretation and review of laboratory resultsAbnormalBon [facility] HospitalSlingbox Potassium [Moles/Vol]4.7 mmol/L3.7 - 5.3 mmol/LBon [facility] HospitalSlingboxComment on above:Specimen hemolysis has exceeded the interference as defined by Kat. Value may be falsely increased. Suggest recollection if clinically indicated. Protein [Mass/Vol]7.1 g/dL6.6 - 8.7 g/dLBon [facility] - WestSodium [Moles/Vol]133 mmol/BUao478 - 145 mmol/LBon [facility] - WestUrea nitrogen [Mass/Vol]21 mg/dLHigh6 - 20 mg/dLBon [facility] - WestUrea nitrogen/Creatinine [Mass ratio]35 mg/mgHigh9 - 20Bon [facility] - WestBon [facility] - WestC-Peptideon 77-42-5093K-Peptide0.2 ng/mLLow1.1-4.4Sam[facility] North Health CenterComment on above:Performed By: #### INSU #### [employer] [address] [place], [place] [id number] Home Health Aide Caregiver: Gee Royal MD [facility] [address] [place] [address] [place] [address] Home Health Aide Caregiver: Loreta Zelaya MD #### CPEP #### [facility] [employer] [address] [place], [place] [id number] Home Health Aide Caregiver: Gee Royal [facility]ABC auto differentialon 75-74-2917Pufddtmsl (Bld) [#/Vol]0.04 10*3/uLBon [facility] Hospitalours Wood County HospitalBasophils/100 WBC (Bld)1 %0 - 2 %[facility] AmericaEosinophils (Bld) [#/Vol]0.1 10*3/uLBon Secours Wood County HospitalEosinophils/100 WBC (Bld)2 %1 - 4 %[facility] AmericaErythrocyte distribution width (RBC) [Ratio]13.6 %11.8 - 14.4 %[facility] Hematocrit (Bld) [Volume fraction]36.9 %36.3 - 47.1 %[facility] Hemoglobin (Bld) [Mass/Vol]11.8 g/dLLow11.9 - 15.1 g/dLBon [facility] Immature granulocytes (Bld) [#/Vol]Bon [facility] - WestImmature granulocytes/100 WBC (Bld)1 %Cwvu3Qsc [facility] - WestInterpretation and review of laboratory resultsAbnormalBon [facility] - WestLymphocytes/100 WBC (Bld)39 %24 - 43 %[facility] AmericaLymphocytes/100 WBC (Bld)1.62 %[facility] HospitalH (RBC) [Entitic mass]33.1 pg25.2 - 33.5 pgCentra Lynchburg General HospitalHC (RBC) [Mass/Vol]32 g/dL28.4 - 34.8 g/dLBon [facility] MCV (RBC) [Entitic vol]103.4 dLMsep32.6 - 102.9 fLHospital Corporation Of America Monocytes/100 WBC (Bld)11 %3 - 12 %[facility] AmericaMonocytes/100 WBC (Bld)0.47 %[facility] AmericaNeutrophils/100 WBC (Bld)46 %36 - 65 %[facility] AmericaNucleated RBC/100 WBC (Bld) [Ratio]0 %0.0 per 100 WBCHospital Corporation Of AmericaPlatelet mean volume (Bld) [Entitic vol]10 fL8.1 - 13.5 fL [facility] AmericaPlatelets (Bld) [#/Vol]256 10*3/uLBon [facility] - WestRBC (Bld) [#/Vol]3.57 10*6/uLLow3.95 - 5.11 m/[facility] Segmented neutrophils/100 WBC (Bld)1.91 %[facility] AmericaWBC other (Bld) [#/Vol]4.2Bon [facility] SchoolCBC with Diffon [id number]. Basophil0.04 k/uLNormal0.00-0.20[facility] North Health CenterComment on above:Performed By: #### UAMIC #### [facility] [address] [place] [address] [place] [address] Home Health Aide Caregiver: Marie Frazier.Imm.Granulocyte<0.21Jbqrsl8.00-0.30[facility] North Health CenterComment on above:Performed By: #### UAMIC #### [facility] [address] [place] [address] Home Health Aide Caregiver: Marie Frazier.Neutrophil (Seg)1.91 k/uLNormal1.50-8.10[facility] North Health CenterComment on above:Performed By: #### UAMIC #### [address] [place], [place] [address]83 Home Health Aide Caregiver: Loreta Zelaya MDBasophils/100 WBC (Bld)1 %Normal0-2MKettering Health Preble HospitalComment on above:Performed By: #### UAMIC #### [address] [place] [address] Home Health Aide Caregiver: Loreta Zelaya MDEosinophils (Bld) [#/Vol]0.10 10*3/uLNormal 0.00-0.44Sam[facility] North Health CenterComment on above:Performed By: #### UAMIC #### [address] [place], [facility]83 Home Health Aide Caregiver: FARIBA Frazierosinophils/100 WBC (Bld)2 %Normal1-4[facility] HospitalComment on above:Performed By: #### UAMIC #### [address] [place] [address] Home Health Aide Caregiver: Loreta Zelaya MDErythrocyte distribution width (RBC) [Ratio]13.6 % Bbgpxz45.8-14.4Sam[facility] North Health CenterComment on above:Performed By: #### UAMIC #### [address] [place], [facility]83 Home Health Aide Caregiver: Loreta Zelaya MDHematocrit (Bld) [Volume fraction]36.9 %Normal 36.3-47.1MKettering Health Preble HospitalComment on above:Performed By: #### UAMIC #### [address] [place], [place] [address] Home Health Aide Caregiver: Loreta Zelaya MDHemoglobin (Bld) [Mass/Vol]11.8 g/dLLow11.9-15.1 [facility] Health CenterComment on above:Performed By: #### UAMIC #### [address] [place], [place] [id number] Home Health Aide Caregiver: Loreta Zelaya MDImmature granulocytes/100 WBC (Bld)1 %Zsyy0UkegmWayne Healthcare Main Campus HospitalComment on above:Performed By: #### UAMIC #### [address] [place] [address] Home Health Aide Caregiver: Loreta Zelaya MDLymphocytes (Bld) [#/Vol]1.62 10*3/uLNormal 1.10-3.70[facility] Campus HospitalComment on above:Performed By: #### UAMIC #### [address] [place], [place] [address]83 Home Health Aide Caregiver: Luciana Fraziermphocytes/100 WBC (Bld)39 %Fxcuat41-28QrwkrSamaritan North Health CenterComment on above:Performed By: #### UAMIC #### [address] [place], [place] [address]83 Home Health Aide Caregiver: MIGUELINA FrazierCH (RBC) [Entitic mass]33.1 kkBkqgah94.2-33.5 [facility] Health CenterComment on above:Performed By: #### UAMIC #### [address] [place], [place] [id number] Home Health Aide Caregiver: MIGUELINA FrazierCHC (RBC) [Mass/Vol]32.0 g/fVJxbmaf86.4-34.8[facility] HospitalComment on above:Performed By: #### UAMIC #### [address] [place] [address] Home Health Aide Caregiver: MIGUELINA FrazierCV (RBC) [Entitic vol]103.4 pVJftc94.6-102.9Mer[facility] Hampden HospitalComment on above:Performed By: #### UAMIC #### [address] [place] [address] Home Health Aide Caregiver: MIGUELINA Frazieronocytes (Bld) [#/Vol]0.47 10*3/uLNormal0.10-1.20 [facility] Health CenterComment on above:Performed By: #### UAMIC #### [address] [place] [address] Home Health Aide Caregiver: MIGUELINA Frazieronocytes/100 WBC (Bld)11 %Normal3-12[facility] Health CenterComment on above:Performed By: #### UAMIC #### [address] [place] [address] Home Health Aide Caregiver: Se Frazierutrophil (Seg)46 %Vmmhwj78-07Rdefk Tiffin HospitalComment on above:Performed By: #### UAMIC #### [address] [place] [address] Home Health Aide Caregiver: Loreta Zelaya MDNRBC Automated0.0 per 100 WBCNormal0.0[facility] Health CenterComment on above:Performed By: #### UAMIC #### [address] [place] [address] Home Health Aide Caregiver: Helena Frazier mean volume (Bld) [Entitic vol]10.0 fL Normal8.1-13.5[facility] Health CenterComment on above:Performed By: #### UAMIC #### [address] [place], [place] [address]8883 Home Health Aide Caregiver: Jamel Fraziertelets (Bld) [#/Vol]256 10*3/tTHgnhdp473-892 [facility] Health CenterComment on above:Performed By: #### UAMIC #### [address] [place] [address] Home Health Aide Caregiver: SARA Frazier ([facility]) [#/Vol]3.57 10*6/uLLow3.95-5.11[facility] HospitalComment on above:Performed By: #### UAMIC #### [address] [place], [place] [address]83 Home Health Aide Caregiver: TSERING Frazier ([facility]) [#/Vol]4.2 10*3/uLNormal3.5-11.3Mavita health system ontario hospitaly Hampden HospitalComment on above:Performed By: #### UAMIC #### [address] [place], [place] [address]483 Home Health Aide Caregiver: RUTH Frazieromp Metabolic Pr/rfx MGon 65-49-9713Psipmzg [Mass/Vol]2.9 g/dLLow3.5-5.2MKettering Health Preble HospitalComment on above:Performed By: #### UAMIC #### [address] [place] [address] Home Health Aide Caregiver: Loerta Zelaya MDAlbumin/Glob Ratio1.0Owzfni6.0-2.5[facility] Health CenterComment on above:Performed By: #### UAMIC #### [address] [place], [facility]83 Home Health Aide Caregiver: Kumar Frazierline Phos82 U/YArwibi27-796ThemvSamaritan North Health CenterComment on above:Performed By: #### UAMIC #### [facility] [address] [place] [address] Dr[address] [place], [place] [id number] Home Health Aide Caregiver: Loreta Zelaya MDALT [Catalytic activity/Vol]37 U/TRuft42-87ZnsjjSamaritan North Health CenterComment on above:Performed By: #### UAMIC #### [address] [place], [place] [address]183 Home Health Aide Caregiver: Loreta Zleaya MDAnion gap [Moles/Vol]8 mmol/LLow9-16[facility] Health CenterComment on above:Performed By: #### UAMIC #### [address] [place], [place] [address] Home Health Aide Caregiver: Loreta Zelaya MDAST [Catalytic activity/Vol]44 U/BPeji96-79PfeeiSamaritan North Health CenterComment on above:Performed By: #### UAMIC #### [address] [place], [place] [address]83 Home Health Aide Caregiver: Loreta Zelaya MDBilirubin [Mass/Vol]mg/dLNormal0.00-1.20[facility] Health CenterComment on above:Performed By: #### UAMIC #### [address] [place], [place] [address]383 Home Health Aide Caregiver: Loreta Zelaya MDBUN/CRE Yinrm58Pzzo7-01JjbzeSamaritan North Health Center Comment on above:Performed By: #### UAMIC #### [address] [place], [place] [address]683 Home Health Aide Caregiver: Lroeta Zelaya MDCalcium [Mass/Vol]8.3 mg/dLLow8.6-10.4[facility] Health CenterComment on above:Performed By: #### UAMIC #### [facility] [address] [place] [address] Dr[place], [place] [id number] Home Health Aide Caregiver: Loreta Zelaya MDChloride [Moles/Vol]104 mmol/ESphton40-278DimpaSamaritan North Health CenterComment on above:Performed By: #### UAMIC #### [address] [place], [place] [address]783 Home Health Aide Caregiver: Loreta Zelaya MDCO2 [Moles/Vol]27 mmol/POhwgla73-49BdcylSamaritan North Health CenterComment on above:Performed By: #### UAMIC #### [address] [place] [address] Home Health Aide Caregiver: RUTH Frazierreatinine [Mass/Vol]0.4 mg/dLLow0.50-0.90[facility] Health CenterComment on above:Performed By: #### UAMIC #### [address] [place] [address] Home Health Aide Caregiver: Loreta Zelaya MDGFR/1.73 sq M.predicted among non-blacks MDRD (S/P/Bld) [Vol rate/Area]mL/min/{1.73_m2}Normal>60[facility] Health CenterComment on above:Result Comment: These results are [...] renal tubular secretion.Performed By: #### UAMIC #### [address] [place] [address] Home Health Aide Caregiver: Loreta Zelaya MDGlucose [Mass/Vol]98 mg/kEQdizux72-90Gtueb Milford HospitalComment on above:Performed By: #### UAMIC #### [address] [place] [address] Home Health Aide Caregiver: SUZY Frazierotassium [Moles/Vol]4.0 mmol/LNormal3.7-5.3MKettering Health Preble HospitalComment on above:Performed By: #### UAMIC #### [address] [place] [address] Home Health Aide Caregiver: Loreta Zelaya MDProtein [Mass/Vol]4.7 g/dLLow6.6-8.7[facility] HospitalComment on above:Performed By: #### UAMIC #### [place] [address] [place] [address] Home Health Aide Caregiver: QUAN Frazierodium [Moles/Vol]139 mmol/RAfcsbr547-485QomvjSamaritan North Health CenterComment on above:Performed By: #### UAMIC #### [facility] [address] [place] [address] Home Health Aide Caregiver: Loreta Zelaya MDUrea nitrogen [Mass/Vol]15 mg/dLNormal6-20[facility] CenterComment on above:Performed By: #### UAMIC #### [facility] [address] [place] [address] Home Health Aide Caregiver: RUTH Frazieromprehensive Metabolic Panel w/ Reflex to MGon 77-98-7160Wygcgze [Mass/Vol]2.9 g/dLLow3.5 - 5.2 g/dLBon [facility] Albumin/Globulin [Mass ratio]1.7 {ratio}1.0 - 2.5Bon [facility] - WestALP [Catalytic activity/Vol]82 U/L35 - 104 U/LBon [facility] - WestALT [Catalytic activity/Vol]37 U/LHigh10 - 35 U/LBon [facility] Hospital - WestAnion gap [Moles/Vol] 8 mmol/LLow9 - 16 mmol/LBon [facility] - WestAST [Catalytic activity/Vol]44 U/LHigh10 - 35 U/LBon [facility] - WestBilirubin [Mass/Vol]mg/dL0.00 - 1.20 mg/dLBon [facility] - WestCalcium [Mass/Vol]8.3 mg/dLLow8.6 - 10.4 mg/dLBon [facility] - WestChloride [Moles/Vol]104 mmol/L98 - 107 mmol/LBon [facility] Hospital - WestCO2 [Moles/Vol]27 mmol/L20 - 31 mmol/LBon [facility] Creatinine [Mass/Vol]0.4 mg/dLLow0.50 - 0.90 mg/dLBon [facility] - WestEst, Glom Filt Rate- PINFBon [facility] on above: These results are [...] secretion. Glucose [Mass/Vol]98 mg/dL74 - 99 mg/dLBon [facility] - WestInterpretation and review of laboratory resultsAbnormPage Memorial HospitalPotassium [Moles/Vol]4 mmol/L3.7 - 5.3 mmol/LBon [facility] - WestProtein [Mass/Vol]4.7 g/dLLow6.6 - 8.7 g/dLBon [facility] - WestSodium [Moles/Vol]139 mmol/L136 - 145 mmol/LBon [facility] - WestUrea nitrogen [Mass/Vol]15 mg/dL6 - 20 mg/dL [facility] AmericaUrea nitrogen/Creatinine [Mass ratio]38 mg/mgHigh9 - 20 [facility] HospitalEKG Rhythm Stripon 10-18-2024 [facility] LABHospital Corporation Of AmericaGlucose, Whole Bloodon 72-59-3655Lxhqtgz [Mass/Vol]230 mg/sBQpyx02 - 100 mg/dLBon [facility] Interpretation and review of laboratory resultsAbnoSt. Michael's HospitalGlucose [Mass/Vol]230 mg/dVKdhs86-619JfqxlSamaritan North Health CenterGlucose [Mass/Vol]99 mg/dL74 - 100 mg/dLBon [facility] Hospital and SchoolGlucose [Mass/Vol]99 mg/aNOrbtxo91-450WpefbSamaritan North Health Center Insulinon 68-05-6442Iuzbqva9.1 mU/LNClinton Memorial Hospital on above: Performed By: #### INSU #### [facility] [employer] [address] [place] [address] Home Health Aide Caregiver: Gee Royal MD [facility] [address] [id number] Home Health Aide Caregiver: Loreta Zelaya MD #### CPEP #### [address] [address] Home Health Aide Caregiver: Milka Pineda [facility] Comment on above:Result Comment: Fastin.6-24.9 30 min: 20-112 60 min: 29-88 90 min: 26-84 120 min: 22-79Performed By: #### INSU #### [address] [address] Home Health Aide Caregiver: Gee Royal MD [address] [place] [address] Home Health Aide Caregiver: Loreta Zelaya MD #### CPEP #### [address] [address] Home Health Aide Caregiver: RUTH Pineda[address] Comment on above:Performed By: #### INSU #### [address] [address] Home Health Aide Caregiver: Gee Royal MD [address] [place] [address] Home Health Aide Caregiver: Loreta Zelaya MD #### CPEP #### [address] [address] Home Health Aide Caregiver: Gee Royal MDTSHoaayush 60-27-8644PEO Qn3.09 m[IU]/LBon [facility] - WestBon [facility] Hospital - WestThyroid Stim. Horm.on 77-83-2846Xbpmhja Stim. Horm.3.09 uIU/mLNormal0.27-4.20[facility] CenterComment on above: Performed By: #### UAMIC #### [address] [place] [address] Home Health Aide Caregiver: Loreta Zelaya MDThyroxine, Freeon 04-24-2728Fqzdlykxs, Free0.9 ng/dLLow0.92-1.68[facility] CenterComment on above:Performed By: #### UAMIC #### [facility] [address] [place] [address] Dr. [place], [place] [address]83 Home Health Aide Caregiver: Loreta Zelaya, MDAlbumin/Creat Ratio, Urineon 10-17-2024 Albumin,conc.[place] U<91Owsqci5-96MdqdnSamaritan North Health CenterComuniversity of michigan health on above:Performed By: #### UAMIC #### [address] [place], [place] [id number] Home Health Aide Caregiver: Loreta Zelaya, MDAlbumin/Creat RatioCan not be calculatedNormal 0.0-25.0[facility] Health CenterComment on above:Performed By: #### UAMIC #### [address] [place], [place] [address]83 Home Health Aide Caregiver: Loreta Zealya, MDCreatinine Conc.46.7 mg/aRSheoxg32.0-217.0[facility] CenterComuniversity of michigan health on above:Result Comment: Reference range defined for 1st morning urinePerformed By: #### UAMIC #### [address] [place], [place] [address]83 Home Health Aide Caregiver: Loreta Zelaya MDAlbumin/Creatinine Ratio, Urineon 10-17-2024 Albumin DL <= 20 mg/L (U) [Mass/Vol]mg/L0 - 20 mg/LBon [facility] Albumin/Creatinine DL <= 20 mg/L (U) [Ratio]Can not be calculatedBon [facility] - WestCreatinine (U) [Mass/Vol]46.7 mg/dL28.0 - 217.0 mg/dLBon [facility] - WestComuniversity of michigan health on above:Reference range defined for 1st morning urineBon [facility] - WestCBC auto differentialon 46-38-0742Sjbdldwkj (Bld) [#/Vol] 0.04 10*3/uLBon [facility] - WestBasophils/100 WBC (Bld)1 %0 - 2 %[facility] AmericaEosinophils (Bld) [#/Vol]0.11 10*3/uLBon [facility] Eosinophils/100 WBC (Bld)3 %1 - 4 %[facility] AmericaErythrocyte distribution width (RBC) [Ratio]13.5 %11.8 - 14.4 %[facility] Hematocrit (Bld) [Volume fraction]34.7 %Low36.3 - 47.1 %[facility] Hemoglobin (Bld) [Mass/Vol]11.3 g/dLLow11.9 - 15.1 g/dLBon [facility] Immature granulocytes (Bld) [#/Vol][facility] AmericaImmature granulocytes/100 WBC (Bld)1 %Himp6HkfHospital Corporation Of AmericaInterpretation and review of laboratory resultsAbnormalHospital Corporation Of AmericaLymphocytes/100 WBC (Bld)45 %High24 - 43 %[facility] AmericaLymphocytes/100 WBC (Bld)1.57 %[facility] HospitalH (RBC) [Entitic mass]33 pg25.2 - 33.5 pgCentra Lynchburg General HospitalHC (RBC) [Mass/Vol]32.6 g/dL28.4 - 34.8 g/dLBon Trinity Health SystemV (RBC) [Entitic vol]101.5 fL82.6 - 102.9 fLHospital Corporation Of America Monocytes/100 WBC (Bld)14 %High3 - 12 %[facility] AmericaMonocytes/100 WBC (Bld)0.48 %[facility] AmericaNeutrophils/100 WBC (Bld)36 %36 - 65 %[facility] AmericaNucleated RBC/100 WBC (Bld) [Ratio]0 %0.0 per 100 WBCHospital Corporation Of AmericaPlatelet mean volume (Bld) [Entitic vol]10.1 fL8.1 - 13.5 fL [facility] HealthPlatelets (Bld) [#/Vol]219 10*3/uLBon [facility] Hospital - WestRBC (Bld) [#/Vol]3.42 10*6/uLLow3.95 - 5.11 m/uLBon [facility] Segmented neutrophils/100 WBC (Bld)1.26 %LowBon [facility] Hospital - WestWBC other (Bld) [#/Vol]3.5Bon [facility] - WestBon [facility] - WestCBC with Diffon 16-26-1306Zhr. Basophil0.04 k/uLNormal0.00-0.20MerOhioHealth O'Bleness Hospital HospitalComment on above:Performed By: #### BMP #### [address] [place] [address] Home Health Aide Caregiver: MDAbs. KarinImm.Granulocyte<0.13Inhubx9.00-0.30MerOhioHealth O'Bleness Hospital HospitalComment on above:Performed By: #### BMP #### [address] [place] [address] Home Health Aide Caregiver: MDAbs. KarinNeutrophil (Seg)1.26 k/uLLow1.50-8.10MerOhioHealth O'Bleness Hospital HospitalComment on above:Performed By: #### BMP #### [address] [place] [address] Home Health Aide Caregiver: Loreta Zelaya MDBasophils/100 WBC (Bld)1 %Normal0-2Mercy Hampden HospitalComment on above:Performed By: #### BMP #### [address] [place] [address] Home Health Aide Caregiver: Loreta Zelaya MDEosinophils (Bld) [#/Vol]0.11 10*3/uLNormal 0.00-0.44MerOhioHealth O'Bleness Hospital HospitalComment on above:Performed By: #### BMP #### [address] [place] [address] Home Health Aide Caregiver: FARIBA Frazierosinophils/100 WBC (Bld)3 %Normal1-4MerOhioHealth O'Bleness Hospital HospitalComment on above:Performed By: #### BMP #### [address] [place], [place] [id number] Home Health Aide Caregiver: Loreta Zelaya MDErythrocyte distribution width (RBC) [Ratio]13.5 % Wobtyd96.8-14.4[facility] HospitalComment on above:Performed By: #### BMP #### [address] [place], [place] [address] Home Health Aide Caregiver: Loreta Zelaya MDHematocrit (Bld) [Volume fraction]34.7 %Low 36.3-47.1MKettering Health Preble HospitalComment on above:Performed By: #### BMP #### [address] [place] [address] Home Health Aide Caregiver: Loreta Zelaya MDHemoglobin (Bld) [Mass/Vol]11.3 g/dLLow11.9-15.1 [facility] HospitalComment on above:Performed By: #### BMP #### [address] [place], [facility]83 Home Health Aide Caregiver: Loreta Zelaya MDImmature granulocytes/100 WBC (Bld)1 %Pdzs8TkzimSamaritan North Health CenterComment on above:Performed By: #### BMP #### [address] [place], [place] [address] Home Health Aide Caregiver: Loreta Zelaya MDLymphocytes (Bld) [#/Vol]1.57 10*3/uLNormal 1.10-3.70[facility] Health CenterComment on above:Performed By: #### BMP #### [address] [place] [address] Home Health Aide Caregiver: Luciana Fraziermphocytes/100 WBC (Bld)45 %Hpyy34-00Iifqq Tiffin HospitalComment on above:Performed By: #### BMP #### [address] [place], [place] [address] Home Health Aide Caregiver: MIGUELINA FrazierCH (RBC) [Entitic mass]33.0 dbWjndpa93.2-33.5 [facility] HospitalComment on above:Performed By: #### BMP #### [address] [place], [place] [address] Home Health Aide Caregiver: KELLI FrazierC (RBC) [Mass/Vol]32.6 g/aKCuovfy09.4-34.8[facility] Main Campus HospitalComment on above:Performed By: #### BMP #### [address] [place], [place] [id number] Home Health Aide Caregiver: MIGUELINA FrazierCV (RBC) [Entitic vol]101.5 hJJzqtny71.6-102.9 [facility] HospitalComment on above:Performed By: #### BMP #### [address] [place], [place] [id number] Home Health Aide Caregiver: MIGUELINA Frazieronocytes (Bld) [#/Vol]0.48 10*3/uLNormal0.10-1.20 [facility] CenterComment on above:Performed By: #### BMP #### [address] [place], [place] 6[address]83 Home Health Aide Caregiver: MIGUELINA Frazieronocytes/100 WBC (Bld)14 %High3-12[facility] HospitalComment on above:Performed By: #### BMP #### [address] [place], [place] 8359383 Home Health Aide Caregiver: Kandice Frazierophil (Seg)36 %Ngqdmm37-69Idelq [facility]iffin HospitalComment on above:Performed By: #### BMP #### [address] [place], [place] [id number] Home Health Aide Caregiver: TYREL Frazier Automated0.0 per 100 WBCNormal0.0[facility] Health CenterComment on above:Performed By: #### BMP #### [address] [place], [place] [address]83 Home Health Aide Caregiver: Jamel Fraziertegracia mean volume (Bld) [Entitic vol]10.1 fL Normal8.1-13.5[facility] Health CenterComment on above:Performed By: #### BMP #### [address] [place], [place] 5668383 Home Health Aide Caregiver: Jamel Fraziertezach (Bld) [#/Vol]219 10*3/uLDwplph695-477 [facility] HospitalComment on above:Performed By: #### BMP #### [address] [place] [address] Home Health Aide Caregiver: SARA Frazier (Bld) [#/Vol]3.42 10*6/uLLow3.95-5.11[facility] HospitalComment on above:Performed By: #### BMP #### [address] [place], [place] 899[address]83 Home Health Aide Caregiver: TSERING Frazier (Bld) [#/Vol]3.5 10*3/uLNormal3.5-11.3MKettering Health Preble HospitalComment on above:Performed By: #### BMP #### [address] [place] [address] Home Health Aide Caregiver: LILI FrazierA ABDOMEN PELVIS W CONTRASTon [id number] ABDOMEN PELVIS W CONTRASTEXAMINATION: CTA OF THE [...] by: Hosea Martinez MD 10/17/24 Final resultNormalMercy Bridgeport Hospital Abdominal vessels and Pelvis vessels W contrast Wesley . Unremarkable abdominopelvic arteries. No aneurysm or dissection. 2. Moderate diffuse body wall edema which may reflect anasarca. 3. Uterus appears unremarkable as visualized. 4. Probable constipation. 5. Additional findings, as above. [facility] RIS CONSOLIDATEDEXAMINATION: CTA OF THE ABDOMEN AND [...] diffuse body wall edema. No acute fracture. [facility] Hosea Ernst MD - 10/17/2024 EXAMINATION: CTA [...] Probable constipation. 5. Additional findings, as above. [facility] AmericaRadiology Study observation (narrative)Hospital [facility] AmericaCTA Abdominal vessels and Pelvis vessels W contrast IVOrdered By: Hosea Martinez on 41-83-1258Jsp [facility] Work Phone: Comp Metabolic Pr/rfx MGon [id number] [Mass/Vol]3.0 g/dLLow3.5-5.2Mer[facility] Hampden HospitalComment on above:Performed By: #### BMP #### [facility] [address] [place] [address] [place] [place], [place] [id number] Home Health Aide Caregiver: Loreta Zelaya MDAlbumin/Glob Ratio1.0Uabkyj5.0-2.5MerOhioHealth O'Bleness Hospital HospitalComment on above:Performed By: #### BMP #### [address] [place] [address] Home Health Aide Caregiver: Kumar Farzierline Vait356 U/YKokbey07-963Hdeqq Tiffin HospitalComment on above:Performed By: #### BMP #### [address] [place] [address] Home Health Aide Caregiver: Loreta Zelaya MDALT [Catalytic activity/Vol]34 U/RZcgyds27-80Dzemo Tiffin HospitalComment on above:Performed By: #### BMP #### [address] [place] [address] Home Health Aide Caregiver: Loreta Zelaya MDAnicedrick gap [Moles/Vol]8 mmol/LLow9-16[facility] HospitalComment on above:Performed By: #### BMP #### [address] [place] [address] Home Health Aide Caregiver: Loreta Zelaya MDAST [Catalytic activity/Vol]28 U/WUhmmel75-10Pjcak Tiffin HospitalComment on above:Performed By: #### BMP #### [address] [place] [address] Home Health Aide Caregiver: Loreta Zelaya MDBilirubin [Mass/Vol]mg/dLNormal0.00-1.20[facility] HospitalComment on above:Performed By: #### BMP #### [facility] [address] [place] [address] [place] [place], [place] 6273283 Home Health Aide Caregiver: Loreta Zelaya MDBUN/CRE Nmwoi39Xgza0-85ZxczcSamaritan North Health Center Comment on above:Performed By: #### BMP #### [facility] [address] [place] [address] Dr. [place], [place] [phone] Home Health Aide Caregiver: RUTH Frazieralcium [Mass/Vol]8.2 mg/dLLow8.6-10.4[facility] Health CenterComment on above:Performed By: #### BMP #### [address] [place], [place] 1478183 Home Health Aide Caregiver: RUTH Frazierhloride [Moles/Vol]103 mmol/OJsxuwi02-744Hoqzn [facility]in HospitalComment on above:Performed By: #### BMP #### [facility] [address] [place] [address] Dr[address] [place], [place] [phone] Home Health Aide Caregiver: Loreta Zelaya MDCO2 [Moles/Vol]26 mmol/LXhlkbo92-57Jnauk Tiffin HospitalComment on above:Performed By: #### BMP #### [address] [place], [place] 5565483 Home Health Aide Caregiver: RUTH Frazierreatinine [Mass/Vol]0.4 mg/dLLow0.50-0.90[facility] Health CenterComment on above:Performed By: #### BMP #### [facility] [address] [place] [address] [place] [address] Home Health Aide Caregiver: Loreta Zelaya MDGFR/1.73 sq M.predicted among non-blacks MDRD (S/P/Bld) [Vol rate/Area]mL/min/{1.73_m2}Normal>60[facility] HospitalComment on above:Result Comment: These results are [...] renal tubular secretion.Performed By: #### BMP #### [address] [place], [place] 669[address]83 Home Health Aide Caregiver: Loreta Zelaya MDGlucose [Mass/Vol]248 mg/aEFfak50-20Rrejj [facility]in HospitalComment on above:Performed By: #### BMP #### [address] [place], [place] 7850583 Home Health Aide Caregiver: SUZY Frazierotassium [Moles/Vol]3.8 mmol/LNormal3.7-5.3MKettering Health Preble HospitalComment on above:Performed By: #### BMP #### [address] [place], [place] 0704883 Home Health Aide Caregiver: Loreta Zelaya MDProtein [Mass/Vol]4.5 g/dLLow6.6-8.7[facility] HospitalComment on above:Performed By: #### BMP #### [address] [place], [place] 1266583 Home Health Aide Caregiver: Loreta Zelaya MDSodium [Moles/Vol]137 mmol/SKdtsio311-926Qyfvi Tiffin HospitalComment on above:Performed By: #### BMP #### [address] [place] [address] Home Health Aide Caregiver: Loreta Zelaya MDUrea nitrogen [Mass/Vol]15 mg/dLNormal6-20[facility] HospitalComment on above:Performed By: #### BMP #### [address] [place], [place] [phone] Home Health Aide Caregiver: RUTH Frazieromprehensive Metabolic Panel w/ Reflex to MGon 46-44-1522Aefecsj [Mass/Vol]3 g/dLLow3.5 - 5.2 g/dLBon [facility] ReserveMyHome Albumin/Globulin [Mass ratio]1.9 {ratio}1.0 - 2.5Bon [facility] ReserveMyHomeALP [Catalytic activity/Vol]104 U/L35 - 104 U/LBon SecSeattle VA Medical CenterShelfari [facility] HospitalALT [Catalytic activity/Vol]34 U/L10 - 35 U/LBon Secours Licking Memorial HospitalStarmountAnion gap [Moles/Vol]8 mmol/LLow9 - 16 mmol/LBon SecSeattle VA Medical CenterShelfari HealthAST [Catalytic activity/Vol]28 U/L10 - 35 U/LBon [facility] ReserveMyHomeBilirubin [Mass/Vol]mg/dL 0.00 - 1.20 mg/dLBon St Luke Medical CenterStarmountCalcium [Mass/Vol]8.2 mg/dLLow8.6 - 10.4 mg/dLBon St Luke Medical CenterShelfari [facility] Community HospitalChloride [Moles/Vol]103 mmol/L98 - 107 mmol/L Bon [facility] OkeoCO2 [Moles/Vol]26 mmol/L20 - 31 mmol/LBon St [facility] Medical CenterStarmountCreatinine [Mass/Vol]0.4 mg/dLLow0.50 - 0.90 mg/dLBon [facility] ReserveMyHome Est, Glom Filt Rate- PINFBon St Luke Medical CenterStarmountComment on above: These results are not intended [...] that affects renal tubular secretion. Glucose [Mass/Vol]248 mg/pVLyzj57 - 99 mg/dLBon [facility] HospitalSlingbox Interpretation and review of laboratory resultsAbnormalBon [facility] Okeo Potassium [Moles/Vol]3.8 mmol/L3.7 - 5.3 mmol/LBon [facility] HospitalSlingboxProtein [Mass/Vol]4.5 g/dLLow6.6 - 8.7 g/dLBon [facility] ReserveMyHomeSodium [Moles/Vol]137 mmol/L136 - 145 mmol/LBon [facility] - WestUrea nitrogen [Mass/Vol]15 mg/dL6 - 20 mg/dLBon [facility] - WestUrea nitrogen/Creatinine [Mass ratio]38 mg/mg High9 - 20Bon [facility] SchoolEKG 12 Leadon 61-74-5036Okyrys Qtlm58EOAHvt [facility] - WestP Nbir72yhuwwazIfaHospital Corporation Of AmericaP-R Ttqnmwrb285 [facility] HospitalQ-T Fhfexqlm113 [facility] HospitalQRS Hcpmlydj43 [facility] HospitalQTc Calculation (tt)459 [facility] HospitalR Ujib29pznnugwZmcHospital Corporation Of AmericaT Hdcq73sqpzrpoMwyMary Washington HospitalVentricular Tkqp12PIOKxz [facility] - WestNormal sinus rhythm Low voltage QRS Borderline ECG No previous ECGs available Confirmed by BECKY AVILA ([id number]) on 10/17/2024 9:32:24 [facility]EX[facility] Becky Avila MD - 10/17/2024 Normal sinus rhythm Low voltage QRS Borderline ECG No previous ECGs available Confirmed by BECKY AVILA ([id number]) on 10/17/2024 9:32:24 AM Bon [facility] SchoolEKG Rhythm Stripon 10-17-2024 [facility] CenterGlucose, Whole Bloodon 89-28-0213Kvgmdmc [Mass/Vol]119 mg/uBIpmn31 - 100 mg/dLBon [facility] - WestInterpretation and review of laboratory resultsAbnormBon Secours Mary Immaculate HospitalGlucose [Mass/Vol]119 mg/rLMagn53-300MccmcSamaritan North Health CenterGlucose [Mass/Vol]191 mg/dL High74 - 100 mg/dLBon [facility] - WestInterpretation and review of laboratory resultsAbnoSturgis Regional Hospital Glucose [Mass/Vol]191 mg/oMEwll23-569NqgcnSamaritan North Health CenterGlucose [Mass/Vol]111 mg/zKOnee20 - 100 mg/dLBon [facility] - WestInterpretation and review of laboratory resultsAbnoSturgis Regional Hospital Glucose [Mass/Vol]111 mg/uGFhrd04-785LufyoSamaritan North Health CenterGlucose [Mass/Vol]172 mg/xIKzik92 - 100 mg/dLBon [facility] - WestInterpretation and review of laboratory resultsAbnoSturgis Regional Hospital Glucose [Mass/Vol]172 mg/fZErye47-602AieclSamaritan North Health CenterGlucose [Mass/Vol]402 mg/tATlct79 - 100 mg/dLBon [facility] - WestInterpretation and review of laboratory resultsAbnoSturgis Regional Hospital Glucose [Mass/Vol]402 mg/kTWpzh77-864OtpxaSamaritan North Health CenterHemoglobin A1Con 17-16-3401Wsmscmc glucose Estimated from glycated hemoglobin (Bld) [Mass/Vol]364 mg/dLBon [facility] - WestComment on above:The ADA and AACC recommend providing the estimated average glucose result to permit better patient understanding of their HBA1c result. HbA1c (Bld) [Mass fraction]14.3 %High4.0 - 6.0 %[facility] Interpretation and review of laboratory resultsAbSioux Falls Surgical CenterGlucose [Mass/Vol]364 mg/dLNoDetwiler Memorial Hospital Comment on above:Result Comment: The ADA and AACC recommend providing the estimated average glucose result to permit better patient understanding of their HBA1c result.Performed By: #### CDP #### [facility] [address] [place] [address] [place] [address] Home Health Aide Caregiver: Loreta Zelaya MDHbA1c (Bld) [Mass fraction]14.3 %High4.0-6.0[facility] on above:Performed By: #### CDP #### [facility] [address] [place] [address] [place] [address] Home Health Aide Caregiver: Loreta Zelaya MDOsmolality, Urineon 56-64-5773Kfbmlslxyl (U) [Osmolality]476 mosm/kgBon [facility]ours [facility] Osmolality - Gmigy362 mOsm/xcYfvliz02-9978SgtyjSamaritan North Health CenterComment on above: Performed By: #### UOSMO #### [facility] [address] [place] [address] Home Health Aide Caregiver: Gee Royal MD #### URNA #### [facility] [address] [place] [address] Home Health Aide Caregiver: SUZY Frazierrotein / creatinine ratio, urineon 10-17-2024 Creatinine (U) [Mass/Vol]43.9 mg/dL28.0 - 217.0 mg/dLBBon Secours St[facility] Interpretation and review of laboratory resultsAbnoSentara RMH Medical Center Protein (U) [Mass/Vol]10 mg/dLBBon Secours St. Francis Medical CenterComment on above:No normal range established.Urine Total Protein Creatinine Ratio0.87Jlzp1.00 - 0.20[facility] Community HospitalProtein,Tot,[place] Uron 10-17-2024 Creatinine [Mass/Vol]43.9 mg/mDRodldj45.0-217.0[facility] Health CenterComment on above:Performed By: #### CDP #### [address] [place], [place] 6[address]883 Home Health Aide Caregiver: Loreta Zelaya MDTot Prot. Conc.10 mg/dLBerger Hospital Comment on above:Result Comment: No normal range established.Performed By: #### CDP #### [facility] [address] [place], [place] 9[address]83 Home Health Aide Caregiver: Loreta Zelaya MDTP/Cre Ratio0.69Dmkq5.00-0.20[facility] Comment on above:Performed By: #### CDP #### [facility] [address] [place] [address] Home Health Aide Caregiver: QUAN Frazierodium, Random Uron 02-01-9830Jddwsx (U) [Moles/Vol]30 mmol/LNormalBon [facility] - WestComment on above:No normal range established.Result Comment: No normal range established.Performed By: #### UOSMO #### [facility] [address] [facility] [place] [address] Home Health Aide Caregiver: Gee Ryoal MD #### URNA #### [facility] [address] [place] [address] [place]. [place], [place] 7063483 Home Health Aide Caregiver: QUAN Frazierodium, urine, randomon 30-78-2360Tjm [facility] - WestUrinalysis w/ Microon 48-21-0022Eknpexfw8+AbnormalNONEMercy Milford HospitalComment on above:Performed By: #### BMP #### [address] [place], [place] 069[address]83 Home Health Aide Caregiver: Kameron Frazierirubin, SemiQt,UrNegativeNormalNEGSamaritan North Health CenterComment on above:Performed By: #### BMP #### [address] [place], [place] [phone] Home Health Aide Caregiver: Lillian Frazier, UrineNegativeNormalNEGSamaritan North Health Center Comment on above:Performed By: #### BMP #### [facility] [address] [place] [address] Dr. [place], [facility]83 Home Health Aide Caregiver: Rafi Frazierrity (ClearNormalCLEARSamaritan North Health Center Comment on above:Performed By: #### BMP #### [facility] [address] [place] [address] Dr[address] [place], [place] 7252883 Home Health Aide Caregiver: RUTH Frazierolor (YellowNoalYMetroHealth Main Campus Medical Center Comment on above:Performed By: #### BMP #### [facility] [address] [place] [address] Dr. [place], [place] 8582283 Home Health Aide Caregiver: Loreta Zelaya MDEpithelial cells LM Ql (Urine sed)5 TO 10Normal 0-25Mercy Hampden HospitalComment on above:Performed By: #### BMP #### [facility] [address] [place] [address] Dr. [place], [place] 0172283 Home Health Aide Caregiver: Loreta Zelaya MDGlucose Ql (U)3+ mg/dLAbnormalNEGWayne Healthcare Main Campus HospitalComment on above:Performed By: #### BMP #### [facility] [address] [place] [address] Home Health Aide Caregiver: Loreta Zelaya MDKetones Ql (U)NegativeNormalNEGSamaritan North Health CenterComment on above:Performed By: #### BMP #### [address] [place], [place] 3599583 Home Health Aide Caregiver: Loreta Zelaya MDLeukocyte esterase Test strip Ql (U)NegativeNormal NEGSamaritan North Health CenterComment on above:Performed By: #### BMP #### [facility] [address] [place] [address] [place] [address] Home Health Aide Caregiver: Loreta Zelaya MDNitrite,UrNegativeNormalNEGSamaritan North Health Center Comment on above:Performed By: #### BMP #### [facility] [address] [place] [address] Dr[address] [place], [place] 5368983 Home Health Aide Caregiver: SUZY Frazier,Ur6.7Yfiepv1.0-9.0[facility] Health CenterComment on above:Performed By: #### BMP #### [facility] [address] [place], [place] 355[address]83 Home Health Aide Caregiver: SUZY Frazierrotein Ql (U)NegativeNormalNEGSamaritan North Health CenterComment on above:Performed By: #### BMP #### [facility] [address] [place] [address] Dr. [place], [place] [phone] Home Health Aide Caregiver: QUAN Frazierpec. [place],Ur1.047Snkupa2.010-1.020Sam[facility] North Health CenterComment on above:Performed By: #### BMP #### [facility] [address] [place], [place] 522[address]83 Home Health Aide Caregiver: Tawny Frazier RBC's0 TO 6Dlzyet4-5JxkpmAdams County Regional Medical Center Comment on above:Performed By: #### BMP #### [facility] [address] [place], [facility]83 Home Health Aide Caregiver: Tawny Frazier WBC's2 TO 0Wokkqu4-5NeppeSamaritan North Health Center Comment on above:Performed By: #### BMP #### [facility] [address] [place] [address] [place] [address] Home Health Aide Caregiver: Loreta Zelaya MDUrobilinogen,UrNormalNormal0.0-1.0[facility] Health CenterComment on above:Performed By: #### BMP #### [facility] [address] [place] [address] [place] [address] Home Health Aide Caregiver: Loreta Zelaya MDYeastPRESENCE NOTEDAbnormalNONEMeBackus HospitalComment on above:Performed By: #### BMP #### [facility] [address] [place] [address] Dr. [place], [facility]83 Home Health Aide Caregiver: Loreta Zelaya MDUrinalysis with Microscopicon 18-34-3435Ezgbyeyt LM Ql (Urine sed)2+AbnormalNoneBon Secours Mercy HealthBilirubin Ql (U)Negative NEGATIVEBon Secours Mercy HealthClarity (U)ClearClearBon Secours Licking Memorial Hospitaly Health Color (U)YellowYellowBon Secours Licking Memorial Hospitaly HealthEpithelial cells LM.HPF (Urine sed) [#/Area]5 TO 10Bon [facility] Hospitaly HealthGlucose Test strip (U) [Mass/Vol]3+ AbnormalNEGATIVE mg/dLBon Secours Licking Memorial Hospitaly HealthHemoglobin Auto test strip Ql (U) NegativeNEGATIVEBon Secours Mercy HealthInterpretation and review of laboratory resultsAbnormalBon Secours Mercy HealthKetones (U) [Mass/Vol]NegativeNEGATIVE mg/dLBon Secours Wood County HospitalLeukocyte esterase Test strip Ql (U)Negative NEGATIVEBon [facility] HealthNitrite Ql (U)NegativeNEGATIVEBon Secours Licking Memorial Hospitaly HealthpH (U)6 [pH]5.0 - 9.0Bon [facility] Hospitaly HealthProtein (U) [Mass/Vol] NegativeNEGATIVE mg/dLBon [facility] HealthRBC LM.HPF (Urine sed) [#/Area]0 TO 2[facility] HealthSpecific gravity (U) [Rel density]1.011.010 - 1.020 [facility] Corporation Of AmericaUrobilinogen Qn (U)Normal0.0 - 1.0 EU/dLBon Secours Wood County HospitalWBC LM.HPF (Urine sed) [#/Area]2 TO 5[facility] HealthYeast LM Ql (Urine sed)PRESENCE NOTEDAbnormalNoneBon SecAmery Hospital and ClinicBrain Natri. Peptideon 37-88-9335Vkjarqvjucr peptide B (Bld) [Mass/Vol]299 pg/mLHigh0-125Sam[facility] Health CenterComment on above:Performed By: #### CDP #### [facility] [address] [place] [address] [place] [address] Home Health Aide Caregiver: Loreta Zelaya MDBrain Natriuretic Peptideon 75-96-4575Dcqmbevbqcx peptide B (Bld) [Mass/Vol]299 pg/mLHigh0 - 125 pg/mLBon [facility] - WestCBC with Auto Differentialon 39-99-5438Rpgesrdis (Bld) [#/Vol]0.05 10*3/uLBon Secours Wood County HospitalBasophils/100 WBC (Bld)1 %0 - 2 %[facility] Eosinophils (Bld) [#/Vol]0.12 10*3/uLBon Secours Wood County HospitalEosinophils/100 WBC (Bld)3 %1 - 4 %[facility] HealthErythrocyte distribution width (RBC) [Ratio]13.3 %11.8 - 14.4 %Bon [facility] Hospital - WestHematocrit (Bld) [Volume fraction]35.7 %Low36.3 - 47.1 %[facility] Hospitaly HealthHemoglobin (Bld) [Mass/Vol]11.7 g/dLLow11.9 - 15.1 g/dLBon Secours Licking Memorial Hospitaly HealthImmature granulocytes (Bld) [#/Vol][facility] HealthImmature granulocytes/100 WBC (Bld)0 %0Bon [facility] Hospitaly HealthInterpretation and review of laboratory results AbnormalBon Secours Mercy HealthLymphocytes/100 WBC (Bld)34 %24 - 43 %[facility] HealthLymphocytes/100 WBC (Bld)1.57 %Bon SecMarion HospitalH (RBC) [Entitic mass]33.5 pg25.2 - 33.5 pgBon Secours Dayton Osteopathic HospitalHC (RBC) [Mass/Vol]32.8 g/dL28.4 - 34.8 g/dLBon SecCincinnati Children's Hospital Medical CenterMCV (RBC) [Entitic vol]102.3 fL82.6 - 102.9 fLBon Secours Licking Memorial Hospitaly HealthMonocytes/100 WBC (Bld)12 %3 - 12 %[facility] Hospitaly HealthMonocytes/100 WBC (Bld)0.55 %[facility] Hospitaly HealthNeutrophils/100 WBC (Bld)50 %36 - 65 %[facility] Hospitaly HealthNucleated RBC/100 WBC (Bld) [Ratio]0 %0.0 per 100 WBCBon Secours Licking Memorial Hospitaly HealthPlatelet mean volume (Bld) [Entitic vol]10.4 fL8.1 - 13.5 fLBon Secours Licking Memorial Hospitaly HealthPlatelets (Bld) [#/Vol]238 10*3/uLBon Secours Licking Memorial Hospitaly HealthRBC (Bld) [#/Vol]3.49 10*6/uLLow 3.95 - 5.11 m/uLBon Secours Licking Memorial Hospitaly HealthSegmented neutrophils/100 WBC (Bld)2.37 %[facility] Hospitaly HealthWBC other (Bld) [#/Vol]4.7Bon [facility] Hospitaly HealthBon SecSaint Francis Medical Center HealthCBC with Diffon 87-55-8660Env. Basophil0.05 k/uLNormal 0.00-0.20Mercy Hampden HospitalComment on above:Performed By: #### CDP #### [address] [place], [place] [address] Home Health Aide Caregiver: MDAbs. KarinImm.Granulocyte<0.37Bekwwy7.00-0.30MerOhioHealth O'Bleness Hospital HospitalComment on above:Performed By: #### CDP #### [address] [place] [address] Home Health Aide Caregiver: Marie Frazier.Neutrophil (Seg)2.37 k/uLNormal1.50-8.10MerOhioHealth O'Bleness Hospital HospitalComment on above:Performed By: #### CDP #### [address] [place] [address] Home Health Aide Caregiver: Loreta Zelaya MDBasophils/100 WBC (Bld)1 %Normal0-2Mercy Hampden HospitalComment on above:Performed By: #### CDP #### [address] [place] [address] Home Health Aide Caregiver: Loreta Zelaya MDEosinophils (Bld) [#/Vol]0.12 10*3/uLNormal 0.00-0.44MerOhioHealth O'Bleness Hospital HospitalComment on above:Performed By: #### CDP #### [address] [place] [address] Home Health Aide Caregiver: FARIBA Frazierosinophils/100 WBC (Bld)3 %Normal1-4MerOhioHealth O'Bleness Hospital HospitalComment on above:Performed By: #### CDP #### [address] [place] [address] Home Health Aide Caregiver: Loreta Zelaya MDErythrocyte distribution width (RBC) [Ratio]13.3 % Nasoqg53.8-14.4MerOhioHealth O'Bleness Hospital HospitalComment on above:Performed By: #### CDP #### [address] [place] [id number] Home Health Aide Caregiver: Loreta Zelaya MDHematocrit (Bld) [Volume fraction]35.7 %Low 36.3-47.1MAdams County Regional Medical CenterComment on above:Performed By: #### CDP #### [address] [place] [address] Home Health Aide Caregiver: Loreta Zelaya MDHemoglobin (Bld) [Mass/Vol]11.7 g/dLLow11.9-15.1 [facility] CenterComment on above:Performed By: #### CDP #### [address] [place] [address] Home Health Aide Caregiver: Loreta Zelaya MDImmature granulocytes/100 WBC (Bld)0 %Wovkfj8Dzgax Tiffin HospitalComment on above:Performed By: #### CDP #### [address] [place], [facility]83 Home Health Aide Caregiver: Loreta Zelaya MDLymphocytes (Bld) [#/Vol]1.57 10*3/uLNormal 1.10-3.70[facility] Health CenterComment on above:Performed By: #### CDP #### [address] [place], [facility]83 Home Health Aide Caregiver: Luciana Fraziermphocytes/100 WBC (Bld)34 %Pncywg72-98Kkmad Tiffin HospitalComment on above:Performed By: #### CDP #### [address] [place] [address] Home Health Aide Caregiver: KELLI Frazier (RBC) [Entitic mass]33.5 zhJjucnv43.2-33.5 [facility] HospitalComment on above:Performed By: #### CDP #### [address] [place], [facility]83 Home Health Aide Caregiver: Loreta Sturtz, MDMCHC (RBC) [Mass/Vol]32.8 g/fLSwcnth27.4-34.8[facility] HospitalComment on above:Performed By: #### CDP #### [address] [place] [address] Home Health Aide Caregiver: MIGUELINA FrazierCV (RBC) [Entitic vol]102.3 xSAdrgmp03.6-102.9 [facility] HospitalComment on above:Performed By: #### CDP #### [address] [place] [address] Home Health Aide Caregiver: MIGUELINA Frazieronocytes (Bld) [#/Vol]0.55 10*3/uLNormal0.10-1.20 [facility] HospitalComment on above:Performed By: #### CDP #### [address] [place], [facility]83 Home Health Aide Caregiver: MIGUELINA Frazieronocytes/100 WBC (Bld)12 %Normal3-12[facility] North Health CenterComment on above:Performed By: #### CDP #### [address] [place] [address] Home Health Aide Caregiver: Loreta Zelaya MDNeutrophil (Seg)50 %Ssyiow64-50UrtgnSamaritan North Health CenterComment on above:Performed By: #### CDP #### [address] [place], [facility]83 Home Health Aide Caregiver: Loreta Zelaya MDNRBC Automated0.0 per 100 WBCNormal0.0[facility] HospitalComment on above:Performed By: #### CDP #### [address] [place], [place] [address] Home Health Aide Caregiver: Loreta Zelaya MDPlatelet mean volume (Bld) [Entitic vol]10.4 fL Normal8.1-13.5[facility] HospitalComment on above:Performed By: #### CDP #### [facility] [address] [place], [place] [address]83 Home Health Aide Caregiver: Luna Frazier ([facility]) [#/Vol]238 10*3/tVRcgbhy551-268 [facility] HospitalComment on above:Performed By: #### CDP #### [facility] [address] [place], [place] [address]83 Home Health Aide Caregiver: KEYLA FrazierBC ([facility]) [#/Vol]3.49 10*6/uLLow3.95-5.11[facility] Hospitalcy Hampden HospitalComment on above:Performed By: #### CDP #### [facility] [address] [place], [place] [address] Home Health Aide Caregiver: TSERING Frazier ([facility]) [#/Vol]4.7 10*3/uLNormal3.5-11.3MKettering Health Preble HospitalComment on above:Performed By: #### CDP #### [facility] [address] [place] [address] Home Health Aide Caregiver: RUTH Fraziercedrick 07-87-8893Igrpzca [Mass/Vol]3.3 g/dLLow3.5 - 5.2 g/dLBon [facility] County [facility] Hospital - WestAlbumin/Globulin [Mass ratio]1.8 {ratio}1.0 - 2.5Bon [facility] Hospital - WestALP [Catalytic activity/Vol]153 U/LHigh35 - 104 U/L Bon [facility] - WestALT [Catalytic activity/Vol]49 U/LHigh10 - 35 U/LBon [facility] Hospital - WestAnion gap [Moles/Vol]9 mmol/L9 - 16 mmol/LBon [facility] HealthAST [Catalytic activity/Vol]56 U/LHigh10 - 35 U/LBon [facility] Bilirubin [Mass/Vol]mg/dL0.00 - 1.20 mg/dLBon [facility] - WestCalcium [Mass/Vol]8.4 mg/dLLow8.6 - 10.4 mg/dLBon [facility] HealthChloride [Moles/Vol]96 mmol/LLow98 - 107 mmol/LBon [facility] Hospital - WestCO2 [Moles/Vol]25 mmol/L20 - 31 mmol/LBon [facility] Hospital - WestCreatinine [Mass/Vol]0.8 mg/dL0.50 - 0.90 mg/dLBon [facility] Hospital - WestEst, Glom Filt Rate85- PINFBon [facility] on above: These results are [...] Glucose [Mass/Vol]567 mg/dLCritically high74 - 99 mg/dLBon [facility] Potassium [Moles/Vol]4.5 mmol/L3.7 - 5.3 mmol/LBon [facility] on above:Specimen hemolysis has exceeded the interference as defined by Kat. Value may be falsely increased. Suggest recollection if clinically indicated. Protein [Mass/Vol]5.2 g/dLLow6.6 - 8.7 g/dLBon [facility] Hospital - WestSodium [Moles/Vol]130 mmol/FYnc902 - 145 mmol/LBon [facility] Hospital - WestUrea nitrogen [Mass/Vol]22 mg/dLHigh6 - 20 mg/dLBon [facility] Hospital - WestUrea nitrogen/Creatinine [Mass ratio]28 mg/mgHigh9 - 20Bon [facility] Ohiop Metabolic Profon 65-07-3702Rkflyfr [Mass/Vol]3.3 g/dLLow3.5-5.2[facility] on above:Performed By: #### INSU #### [facility] [address] [place] [address] Home Health Aide Caregiver: Gee Royal MD [facility] [address] [place] [address] Home Health Aide Caregiver: Loreta Zelaya MD #### CPEP #### [address] [address] Home Health Aide Caregiver: Gee Royal MDAlbumin/Glob Ratio1.7Fisdpy6.0-2.5[facility] Health CenterComuniversity of michigan health on above:Performed By: #### INSU #### [address] [address] Home Health Aide Caregiver: Gee Royal MD [address] [place], [place] [address] Home Health Aide Caregiver: Loreta Zelaya MD #### CPEP #### [address] [address] Home Health Aide Caregiver: Kumar Pinedaline Vxnk031 U/QLfcd15-049OuarzSamaritan North Health CenterComuniversity of michigan health on above:Performed By: #### INSU #### [address] [address] Home Health Aide Caregiver: Gee Royal MD [address] [place], [facility]83 Home Health Aide Caregiver: Loreta Zelaya MD #### CPEP #### [address] [address] Home Health Aide Caregiver: Gee Royal MDALT [Catalytic activity/Vol]49 U/SMucf34-60NixuaSamaritan North Health CenterComuniversity of [facility] health on above:Performed By: #### INSU #### [address] [address] Home Health Aide Caregiver: Gee Royal MD [address] [place], [facility]83 Home Health Aide Caregiver: Loreta Zelaya MD #### CPEP #### [address] [address] Home Health Aide Caregiver: Hetal Pineda gap [Moles/Vol]9 mmol/LNormal9-16[facility] Health CenterComment on above:Performed By: #### INSU #### [address] [address] Home Health Aide Caregiver: Gee Royal MD [address] [place], [place] [address] Home Health Aide Caregiver: Loreta Zelaya MD #### CPEP #### [address] [address] Home Health Aide Caregiver: Gee Royal MDAST [Catalytic activity/Vol]56 U/VYhut00-38IsrqaSamaritan North Health CenterComment on above:Performed By: #### INSU #### [address] [address] Home Health Aide Caregiver: Gee Royal MD [address] [place] [address] Home Health Aide Caregiver: Loreta Zelaya MD #### CPEP #### [address] [address] Home Health Aide Caregiver: Gee Royal MDBilirubin [Mass/Vol]mg/dLNormal0.00-1.20[facility] Health CenterComment on above:Performed By: #### INSU #### [address] [address] Home Health Aide Caregiver: Gee Royal MD [facility] [address] [place] [address] [place] [address] Home Health Aide Caregiver: Loreta Zelaya MD #### CPEP #### [address] [address] Home Health Aide Caregiver: Gee Royal MDBUN/CRE Vczdh42Eftm0-83EnkajSamaritan North Health Center Comment on above:Performed By: #### INSU #### [address] [address] Home Health Aide Caregiver: Gee Royal MD [address] [place], [place] [address] Home Health Aide Caregiver: Loreta Zelaya MD #### CPEP #### [address] [address] Home Health Aide Caregiver: RUTH Pinedaalcium [Mass/Vol]8.4 mg/dLLow8.6-10.4[facility] North Health CenterComment on above:Performed By: #### INSU #### [address] [address] Home Health Aide Caregiver: Gee Royal MD [address] [place], [place] [address]83 Home Health Aide Caregiver: Loreta Zelaya MD #### CPEP #### [address] [address] Home Health Aide Caregiver: RUTH Pinedahloride [Moles/Vol]96 mmol/BQsp83-161WbluqSamaritan North Health CenterComment on above:Performed By: #### INSU #### [address] [address] Home Health Aide Caregiver: Gee Royal MD [address] [place], [place] [address]83 Home Health Aide Caregiver: Loreta Zelaya MD #### CPEP #### [address] [address] Home Health Aide Caregiver: RUTH PinedaO2 [Moles/Vol]25 mmol/UBfwshb58-18AdljeSamaritan North Health CenterComment on above:Performed By: #### INSU #### [address] [address] Home Health Aide Caregiver: Gee Royal MD [address] [place], [place] [address]783 Home Health Aide Caregiver: Loreta Zelaya MD #### CPEP #### [address] [address] Home Health Aide Caregiver: RUTH Pinedareatinine [Mass/Vol]0.8 mg/dLNormal0.50-0.90 [facility] Health CenterComment on above:Performed By: #### INSU #### [address] [address] Home Health Aide Caregiver: Gee Royal MD [address] [place], [place] [address] Home Health Aide Caregiver: Loreta Zelaya MD #### CPEP #### [address] [address] Home Health Aide Caregiver: Gee Royal MDGFR/1.73 sq M.predicted among non-blacks MDRD (S/P/Bld) [Vol rate/Area]85 mL/min/{1.73_m2}Normal>60[facility] Comment on above:Result Comment: These results [...] renal tubular secretion.Performed By: #### INSU #### [address] [address] Home Health Aide Caregiver: Gee Royal MD [address] [place], [place] 2[address] Home Health Aide Caregiver: Loreta Zelaya MD #### CPEP #### [address] [address] Home Health Aide Caregiver: Gee Royal MDGlucose [Mass/Vol]567 mg/dLCritically ecbm62-30 [facility] Health CenterComment on above:Performed By: #### INSU #### [address] [address] Home Health Aide Caregiver: Gee Royal MD [address] [place], [place] [address] Home Health Aide Caregiver: Loreta Zelaya MD #### CPEP #### [address] [address] Home Health Aide Caregiver: Gee Royal MDPotassium [Moles/Vol]4.5 mmol/LNormal3.7-5.3 [facility] Health CenterComment on above:Result Comment: Specimen hemolysis has exceeded the interference as defined by Kat. Value may be falsely increased. Suggest recollection if clinically indicated.Performed By: #### INSU #### [address] [address] Home Health Aide Caregiver: Gee Royal MD [address] [place] [phone] Home Health Aide Caregiver: Loreta Zelaya MD #### CPEP #### [address] [address] Home Health Aide Caregiver: Gee Royal MDProtein [Mass/Vol]5.2 g/dLLow6.6-8.7[facility] Health CenterComment on above:Performed By: #### INSU #### [address] [address] Home Health Aide Caregiver: Gee Royal MD [address] [place] [address] Home Health Aide Caregiver: Loreta Zelaya MD #### CPEP #### [address] [address] Home Health Aide Caregiver: Gee Royal MDSodium [Moles/Vol]130 mmol/WVgb693-086WfurhSamaritan North Health CenterComment on above:Performed By: #### INSU #### [address] [address] Home Health Aide Caregiver: Gee Royal MD [address] [place] [address] Home Health Aide Caregiver: Loreta Zelaya MD #### CPEP #### [facility] [address] [place], [place] [address] Home Health Aide Caregiver: Gee Royal MDUrea nitrogen [Mass/Vol]22 mg/dLHigh6-20[facility] Health CenterComment on above:Performed By: #### INSU #### [facility] [address] [place] [address] Home Health Aide Caregiver: Gee Royal MD [facility] [address] [place] [address] [place] [place], [place] 12[address] Home Health Aide Caregiver: Loreta Zelaya MD #### CPEP #### [facility] [address] [place], [place] [address] Home Health Aide Caregiver: Gee Royal MDGlucose, Whole Bloodon 78-84-0615Evbfdqt [Mass/Vol]564 mg/dLCritically high74 - 100 mg/dLBon [facility] Interpretation and review of laboratory resultsAbnoSt. Michael's HospitalGlucose [Mass/Vol]564 mg/dLCritically qkes01-085DgthmSamaritan North Health CenterMagnesiumon 01-85-3650Nfdwswyrs [Mass/Vol]2 mg/dL1.6 - 2.6 mg/dL [facility] HospitalMagnesium [Mass/Vol]2.0 mg/dL Normal1.6-2.6MAdams County Regional Medical CenterComment on above:Performed By: #### CDP #### [facility] [address] [place], [place] [address] Home Health Aide Caregiver: Loreta Zelaya MDNo Panel Informationon 03-63-1268Gchewihfgtzsuq and review of laboratory resultsAbSanford USD Medical CenterTroponinon 29-22-8097Pwutkwmy I.cardiac High sensitivity method [Mass/Vol]ng/L0 - 14 ng/LBon [facility] Memorial Hospital - WestComment on above:High Sensitivity Troponin values cannot be compared with other Troponin methodologies.Troponin, High Sens<8Lmekbw7-66QgglhSamaritan North Health CenterComment on above:Result Comment: High Sensitivity Troponin values cannot be compared with other Troponin methodologies.Performed By: #### INSU #### [facility] [address] [place] [address] Home Health Aide Caregiver: Gee Royal MD [facility] [address] [place], [place] [address] Home Health Aide Caregiver: Loreta Zelaya MD #### CPEP #### [facility] [address] [place] [address] Home Health Aide Caregiver: Gee Royal MDBRISTOL HOSPITAL METABOLIC PANLon 45-20-3729Vzbzv gap [Moles/Vol]18 mmol/LHigh5-15ProMediAultman Hospital HospitalComment on above:Performed By: #### TRISTAN, 6-3, 3023-7 #### [facility] ([id number]) [address], [address] [place], [place] [address]Qbikvhh [Mass/Vol]9.0 mg/dLNormal8.5-10.5Pro[facility]ica Henderson HospitalComment on above:Performed By: #### TRISTAN, 3015-3, 3023-7 #### [facility] ([id number]) [address], [address] [place], [place] [address]Dqnstzzk [Moles/Vol]101 mmol/AMtlgpz34-925AgpObsqsw [place] HospitalComment on above:Performed By: #### TRISTAN, 6-3, 3023-7 #### [facility] ([id number]) [address], [address] [place], [place] [address] [Moles/Vol]15 mmol/HEqa55-13MamBisydx [place] HospitalComment on above:Performed By: #### TRISTAN, 6-3, 302-7 #### [facility] ([id number]) [address], [address] [place], [place] [address]Noxnhvijvk [Mass/Vol]0.52 mg/dLNormal0.40-1.00ProMedica Henderson HospitalComment on above:Result Comment: METHOD TRACEABLE TO IDMS STANDARD Performed By: #### TRISTAN, 3, 3024-01 #### [facility] ([id number]) [address], [address] [place], [place] [address]lYDI (CKD-EPI) NON-RACE DEPENDENT>90Normal>59ProMedica Henderson HospitalComment on above:Result Comment: Reported eGFR is based on the CKD-EPI 2020 equation that does not use a race coefficient.Performed By: #### TRISTAN, 3015-09, 3024-01 #### [facility] ([id number]) [address], [facility] [address] [place], [place] [address]Hudngas [Mass/Vol]321 mg/cUEjau01-97DunGifuty [facility] Comment on above:Performed By: #### TRISTAN, 3015-09, 3024-01 #### [facility] ([id number]) [address] [address] [place], [place] [address]Wrsxmblbs [Moles/Vol]4.3 mmol/LNormal3.5-5.0ProBethesda North Hospitalca Henderson HospitalComment on above:Performed By: #### TRISTAN, 3015-09, 7 #### [facility] ([id number]) [address], [facility] [address] [place], [place] [address]Fufrwb [Moles/Vol]134 mmol/KCkjizc277-091QbhKagaim Landa HospitalComment on above:Performed By: #### TRISTAN, 3, 7 #### [facility] ([id number]) [address], [facility] [address] [place], [place] [address]Jrzl nitrogen [Mass/Vol]15 mg/dLNormal5-23ProMedica Landa HospitalComment on above:Performed By: #### TRISTAN, 3015-09, 3023- #### [facility] ([id number]) [address] [facility], [address] [place], [place] [address]Oaxvl Metabolic Panelon 72-38-1481Lhjde gap [Moles/Vol]18 mmol/L High5 - 15 mmol/LProMedica Health SystemCalcium [Mass/Vol]9.0 mg/dL8.5 - 10.5 mg/dLProHighlands Medical Center Health SystemChloride [Moles/Vol]101 mmol/L98 - 109 mmol/L ProMed[facility] Health SystemCO2 [Moles/Vol]15 mmol/LLow22 - 32 mmol/LProMedica Health SystemCreatinine [Mass/Vol]0.52 mg/dL0.40 - 1.00 mg/dLDiley Ridge Medical Center Comment on above:METHOD TRACEABLE TO IDIA STANDARDeGFR (CKD-EPI)non-race dependent- [facility] Springs HospitalComment on above: Reported eGFR is based on the CKD-EPI 2020 equation that does not use a race coefficient. Glucose [Mass/Vol]321 mg/dGLeve95 - 99 mg/dLDiley Ridge Medical Center Interpretation and review of laboratory resultsAbnoFairmount Behavioral Health System System Potassium [Moles/Vol]4.3 mmol/L3.5 - 5.0 mmol/LProMedica Health SystemSodium [Moles/Vol]134 mmol/L134 - 146 mmol/LPrSSM Saint Mary's Health Centerica Health SystemUrea nitrogen [Mass/Vol]15 mg/dL5 - 23 mg/dLDiley Ridge Medical CenterProSelect Medical [facility] Rehabilitation Hospital SystemFREE T4on 63-78-8997Zjjc T4 [Mass/Vol]0.56 ng/dLLow0.61-1.60Clermont County HospitalComment on above:Performed By: #### BMP, 3016-3, 3024-7 #### [facility] ([id number]) [address] [facility], [address] [place], [place] [address]Ogxm T4 [Mass/Vol]on 18-28-4678Kyemsmafniwlpv and review of laboratory resultsAbnoFairmount Behavioral Health System SystemJoint Township District Memorial Hospital SystemT4, free on 56-38-8606Sgrr T4 [Mass/Vol]0.56 ng/dLLow0.61 - 1.60 ng/dLDiley Ridge Medical CenterTSHon 92-41-7800DYI Qn9.36 m[IU]/LHighFormerly [facility] Qnon 95-83-4597Nrlcibhsdhdaqd and review of laboratory resultsAbnormalWarren General HospitalTSH9.36 uIU/mLHigh0.49-4.67Cl[facility] County HospitalComment on above:Performed By: #### TRISTAN, 3016-3, 3024-7 #### [facility] ([id number]) [address] [facility] [place], [place] [address]D peptide [Mass/Vol]on 09-01-2023 PEPTIDE1.10 ng/mLNormal 0.81-3.85Cl[facility] County HospitalComment on above:Result Comment: NOTE Test Performed By: [place] [address] Director Transition: Judson Reese III, M.D. [facility] #[id number] - ALBUMIN:CREATININE URINE RATIOon 09-01-2023 ALB/CREAT RATIONOT CALCULATEDNormal0.0-30.0Clermont County HospitalComment on above:Result Comment: Result for Albumin/Creatinine Ratio cannot be reliably calculated because urine albumin and or urine creatinine is below the detection limit of the assay.Performed By: #### JESUS #### [facility] ([id number]) [address] [facility] [place], [place] [address]Yjongpb DL <= 20 mg/L (U) [Mass/Vol]mg/dLNormal0.0-1.9D[facility] Medical CenterComment on above:Performed By: #### JESUS #### [facility] ([id number]) [address] [facility] [place], [place] [address]ZYYIC CREAT12.23 mg/dLNormalClermont County HospitalComment on above:Performed By: #### JESUS #### [facility] ([id number]) [address] [facility] [place], [place] [address]Zqwolqagqlya - Albumin: Creatinine Urine Ratioon 09-01-2023 Albumin/Creatinine DL <= 1.0 mg/L (U) [Ratio]NOT CALCULATEDDiley Ridge Medical CenterComment on above: Result for Albumin/Creatinine Ratio cannot be reliably calculated because urine albumin and or urine creatinine is below the detection limit of the assay. Creatinine (U) [Mass/Vol]12.23 mg/dLWarren General HospitalCOMPREHENSIVE METABOLIC PANELon 98-09-0341Uravjnz [Mass/Vol]3.9 g/dLNormal 3.2-5.3PACMC Healthcare System GlenbeighComment on above:Performed By: #### CMP, THYR, HA1C, 90431-5 #### [facility] ([id number]) [address], [address] [place], [place] [address]YEC [Catalytic activity/Vol]73 U/PZmdezr48-669CosJuarro [place] HospitalComment on above:Performed By: #### CMP, THYR, HA1C, 83334-6 #### [facility] ([id number]) [address], [address] [place], [place] [address]FKN [Catalytic activity/Vol]7 U/LNormal0-31PACMC Healthcare System GlenbeighComment on above:Performed By: #### CMP, THYR, HA1C, 16337-9 #### [facility] ([id number]) [address], [address] [place], [place] [address]Uwpam gap [Moles/Vol]9 mmol/LNormal5-15ProTrinity [facility] Comment on above:Performed By: #### CMP, THYR, HA1C, 75411-8 #### [facility] ([id number]) [address], [address] [place], [place] [address]BDI [Catalytic activity/Vol]9 U/LNormal0-41ProGreene Memorial HospitalComment on above:Performed By: #### CMP, THYR, HA1C, 68513-3 #### [facility] ([id number]) [address], [address] [place], [place] [address]Uihwvndwa [Mass/Vol]0.5 mg/dLNormal0.3-1.2PTriHealth HospitalComment on above:Performed By: #### MANNY, THYR, HAJoe, 08015-0 #### [facility] ([id number]) [address], [address] [place], [place] [address]Jtsfjjh [Mass/Vol]8.7 mg/dLNormal8.5-10.5PTriHealth HospitalComment on above:Performed By: #### MANNY THYR, HAJoe, 15932-7 #### [facility] ([id number]) [address], [address] [place], [place] [address]Abdyhysk [Moles/Vol]99 mmol/XHhynfp47-675TfjNealbl [facility] HospitalComment on above:Performed By: #### MANNY THYR HAJoe, 52963-1 #### [facility] ([id number]) [address], [address] [place], [place] [address]KD2 [Moles/Vol]24 mmol/FXkslxs37-64FzlIarunu [facility] Comment on above:Performed By: #### MANNY, THYR, HAJoe, 12401-3 #### [facility] ([id number]) [address], [address] [place], [place] [address]Zoxnqwovzt [Mass/Vol]0.53 mg/dLNormal0.40-1.00ProGreene Memorial HospitalComment on above:Result Comment: METHOD TRACEABLE TO IDMS STANDARD Performed By: #### MANNY THYR, HAJoe, 95997-3 #### [facility] ([id number]) [address], [address] [place], [place] [address]iOLS (CKD-EPI) NON-RACE DEPENDENT>90Normal>59ProGreene Memorial HospitalComment on above:Result Comment: Reported eGFR is based on the CKD-EPI 2020 equation that does not use a race coefficient.Performed By: #### MANNY THYGENTRY Stevens, 78460-2 #### [facility] ([id number]) [address], [address] [place], [place] [address]Eywdpxx [Mass/Vol]474 mg/dLCritically arys44-59HofVqkyinGreene Memorial HospitalComment on above:Performed By: #### MANNY THYRGENTRY, 84436-6 #### [facility] ([id number]) [address] [address] [place], [place] [address]Alhrdcczr [Moles/Vol]3.9 mmol/LNormal3.5-5.0ProGreene Memorial HospitalComment on above:Performed By: #### MANNY THYRGENTRY, 07640-3 #### [facility] ([id number]) [address] [address] [place], [place] [address]Lzdrdhs [Mass/Vol]6.5 g/dLNormal6.0-8.0[facility] Comment on above:Performed By: #### MANNY THYRGENTRY, 99224-4 #### [facility] ([id number]) [address] [address] [place], [place] [address]Xjhrfk [Moles/Vol]132 mmol/TCqb080-016BvjQubcvnGreene Memorial Hospital Comment on above:Performed By: #### MANNY THYR HAJoe, 77357-9 #### [facility] ([id number]) [address] [address] [place], [place] [address]Pykz nitrogen [Mass/Vol]7 mg/dLNormal5-23ProGreene Memorial HospitalComment on above:Performed By: #### MANNY THYR, HAJoe, 45821-8 #### [facility] ([id number]) [address], [address] [place], [place] [address]Efwmsqiwzvgst metabolic panelon 61-56-0327Utdvewv [Mass/Vol]3.9 g/dL3.2 - 5.3 g/dLDiley Ridge Medical CenterALP [Catalytic activity/Vol]73 U/L39 - 130 U/[facility] Healthcare SystemALT No additional P-5'-P [Catalytic activity/Vol]7 U/L0 - 31 U/[facility] SystemAnion gap [Moles/Vol]9 mmol/L5 - 15 mmol/L ProMSt. Elizabeths Medical Center SystemAST [Catalytic activity/Vol]9 U/L0 - 41 U/[facility] HospitalBilirubin [Mass/Vol]0.5 mg/dL0.3 - 1.2 mg/dLDiley Ridge Medical Center Calcium [Mass/Vol]8.7 mg/dL8.5 - 10.5 mg/dLDiley Ridge Medical CenterChloride [Moles/Vol]99 mmol/L98 - 109 mmol/[facility] Healthcare SystemCO2 [Moles/Vol]24 mmol/L22 - 32 mmol/[facility] HospitalCreatinine [Mass/Vol]0.53 mg/dL0.40 - 1.00 mg/dLDiley Ridge Medical CenterComment on above:METHOD TRACEABLE TO [facility] STANDARDeGFR (CKD-EPI)non-race dependent- [facility] Springs HospitalComment on above: Reported eGFR is based on the CKD-EPI 2020 equation that does not use a race coefficient. Glucose [Mass/Vol]474 mg/dLCritically high65 - 99 mg/dLDiley Ridge Medical Center Interpretation and review of laboratory resultsAbnoFirstHealth Montgomery Memorial Hospital Potassium [Moles/Vol]3.9 mmol/L3.5 - 5.0 mmol/[facility] SystemProtein [Mass/Vol]6.5 g/dL6.0 - 8.0 g/dLCritical access hospitalodium [Moles/Vol]132 mmol/DPzy720 - 146 mmol/[facility] HospitalUrea nitrogen [Mass/Vol]7 mg/dL5 - 23 mg/dLWarren General HospitalHGB A1C (GLYCO-HGB)on 55-67-2555Siecbgq [Mass/Vol]349 mg/dLNoMemorial Health System Selby General HospitalComment on above:Performed By: #### CMP, THYR, HA1C, 09331-4 #### [facility] ([id number]) [address] [place], [place] [address]IfS3q (Bld) [Mass fraction]13.8 %High4.4-5.6Clermont County HospitalComment on above:Result Comment: NOTE ADA Guidelines Result HgbA1c Normal : less than 5.7 % Prediabetes : 5.7 % to 6.4 % Diabetes : > 6.4 % Use with caution in patients with abnormal hemoglobin variants as the half-life of red blood cells and in vivo glycation rates are affected.Performed By: #### MANNY, FRANK, PHILLIP, 15924-7 #### [facility] ([id number]) [address] [place], [place] [address]Focbjiaztb A1con 58-73-4668Dbauiag glucose Estimated from glycated hemoglobin (Bld) [Mass/Vol]349 mg/dLDiley Ridge Medical CenterHbA1c (Bld) [Mass fraction]13.8 %High4.4 - 5.6 %D[facility] Ridge Medical CenterComment on above:NOTE ADA Guidelines Result HgbA1c Normal : less than 5.7 % Prediabetes : 5.7 % to 6.4 % Diabetes : > 6.4 % Use with caution in patients with abnormal hemoglobin variants as the half-life of red blood cells and in vivo glycation rates are affected. Interpretation and review of laboratory resultsAbnormalJefferson Health NortheastLipid 1996 panelon 04-80-8951Hnuatcawkyy [Mass/Vol]104 mg/jUKea180 - 200 mg/dLDiley Ridge Medical CenterCholesterol in HDL [Mass/Vol]43 mg/dL39 - PINF mg/dLDiley Ridge Medical CenterComment on above: HDL <40 mg/dL - High Risk HDL > or = 40mg/dL- Desirable HDL >60 mg/dL - Negative Risk Cholesterol in LDL [Mass/Vol]28 mg/dLNINF - 130 mg/dLDiley Ridge Medical Center Comment on above: LDL <100 mg/dL - Desirable LDL >160 mg/dL - High Risk Cholesterol in VLDL [Mass/Vol]33 mg/dLHigh0 - 30 mg/dLDiley Ridge Medical Center Cholesterol.total/Cholesterol in HDL [Mass ratio]2.4 {ratio}1.0 - 5.0Diley Ridge Medical CenterTriglyceride [Mass/Vol]165 mg/vFEwwl43 - 150 mg/dLDiley Ridge Medical CenterCholesterol [Mass/Vol]104 mg/lJNoa678-616TmaWdkbxqClermont County HospitalComment on above:Performed By: #### FRANK BRYANT, PHILLIP, 49879-6 #### [facility] ([id number]) [address] [place], [place] [address]Npesvergklu in HDL [Mass/Vol]43 mg/dLNormal>39Clermont County HospitalComment on above:Result Comment: HDL <40 mg/dL - High Risk HDL > or = 40mg/dL- Desirable HDL >60 mg/dL - Negative Risk Performed By: #### MANNY, FRANK, HA1C, 63554-3 #### [facility] ([id number]) [address] [place], [place] [address]Lomibejdgma in LDL [Mass/Vol]28 mg/dLNormal<130ProTrinity Health System West Campus HospitalComment on above:Result Comment: LDL <100 mg/dL - Desirable LDL >160 mg/dL - High Risk Performed By: #### FRANK BRYANT, GENTRY, 29432-8 #### [facility] ([id number]) [address], [address] [place], [place] [address]Bivsuemnsoy in VLDL [Mass/Vol]33 mg/dLHigh0-30ProTrinity Health System West Campus HospitalComment on above:Performed By: #### MANNY, THYR, HAJeo, 78071-6 #### [facility] ([id number]) [address], [address] [place], [place] [address]PTCYHEVWLOE:HDL2.2Ycughs0.0-5.0ProTrinity Health System West Campus HospitalComment on above:Performed By: #### FRANK BRYANT HA1C, 10350-2 #### [facility] ([id number]) [address], [address] [place], [place] [address]Svxvcywamqka [Mass/Vol]165 mg/dHOsoz44-087DmqPmplex Toledo HospitalComment on above:Performed By: #### FRANK BRYANT HA1C, 31310-7 #### [facility] ([id number]) [address], [address] [place], [place] [address]Xj Panel Informationon 23-41-1866Jremcuijjazqld and review of laboratory resultsAbnormalProSelect Medical Trihealth Rehabilitation Hospital SystemProSelect Medical Tri[facility] Rehabilitation Hospital SystemTHYROID PROFILEon 87-63-8631Fgoe T4 [Mass/Vol]0.50 ng/dLLow0.61-1.60ProTrinity Health System West Campus HospitalComment on above:Performed By: #### MANNY THYR, HAJoe, 34293-5 #### [facility] ([id number]) [address], [address] [place], [place] [address]SIS4.94 uIU/mLHigh0.49-4.67ProTrinity Health System West Campus HospitalComment on above:Performed By: #### MANNY THYR, HA1C, 45474-1 #### [facility] ([id number]) [address], [address] [place], [place] [address]Auivmwh profile includes TSH FT4on 35-89-7967Ztxk T4 [Mass/Vol] 0.50 ng/dLLow0.61 - 1.60 ng/dLFormerly [facility] Qn8.94 m[IU]/LHRetreat Doctors' HospitalCBC AUTO DIFFon 32-37-7200RMQL #0.1 103/ulNormal0.0-0.1 [facility] Crille HospitalComment on above:Performed By: #### CBC #### [facility] [address] [place] [address] Dr. Alejandra TrotterBasophils/100 WBC (Bld)0.9 %Normal0.2-2.0[facility] Comment on above:Performed By: #### CBC #### [facility] [address] [place] [address] Dr. Alejandra Ruby #0.2 103/ulNormal0.0-0.7The [facility] HospitalComment on above: Performed By: #### CBC #### [facility] [address] [place] [address] Dr. Alejandra Nealosinophils/100 WBC (Bld)3.4 %Normal0.9-7.0[facility] Comment on above:Performed By: #### CBC #### [facility] [address] [place] [address] Dr. Alejandra Nealrythrocyte distribution width (RBC) [Ratio]12.5 %Eeczcx83.0-15.0 [facility] Crille HospitalComment on above:Performed By: #### CBC #### [facility] [address] [place] [address] Dr. Alejandra TrotterHematocrit (Bld) [Volume fraction]45.3 %Wjtjae86.0-48.0B[facility] / Crille HospitalComment on above:Performed By: #### CBC #### [facility] [address] [place] [address] Dr. Alejandra TrotterHemoglobin (Bld) [Mass/Vol]15.0 g/xZDrcurs13.0-16.0The [facility] HospitalComment on above:Performed By: #### CBC #### [facility] [address] [place] [address] Dr. Alejandra Lai #0.02 10e3/ulNormal0.00-0.03The [facility] HospitalComment on above:Performed By: #### CBC #### [facility] [address] [place] [address] Dr. Alejandra Lai %0.3 %Normal0.0-0.5The [facility] HospitalComment on above: Performed By: #### CBC #### [facility] [address] [place] [address] Dr. Alejandra Fajardo #2.4 103/ulNormal1.2-3.8The [facility] HospitalComment on above:Performed By: #### CBC #### [facility] [address] [place] [address] Dr. Alejandra Oliviahocytes/100 WBC (Bld)41.2 %Bpgytq98.5-60.0The [facility] HospitalComment on above:Performed By: #### CBC #### [facility] [address] [place] [address] Dr. Alejandra AndersUAL DIFF REQNONormalThe [facility] HospitalComment on above: Performed By: #### CBC #### [facility] [address] [place] [address] Dr. Alejandra Monzon (RBC) [Entitic mass]29.1 jrBzjvfd71.7-34.0The [facility] HospitalComment on above:Performed By: #### CBC #### [facility] [address] [place] [address] Dr. Alejandra Monzon (RBC) [Mass/Vol]33.1 g/tHZsvklf64.9-35.2The Anderson HospitalComment on above:Performed By: #### CBC #### [facility] [address] [place] [address] Dr. Alejandra Tenorio (RBC) [Entitic vol]87.8 mDHecjvq28.0-99.0The [facility] HospitalComment on above:Performed By: #### CBC #### [facility] [address] [place] [address] Dr. Alejandra Key #0.4 103/ulNormal0.3-0.8The [facility] HospitalComment on above:Performed By: #### CBC #### [facility] [address] [place] [address] Dr. Alejandra Aranaocytes/100 WBC (Bld)6.7 %Normal1.7-12.0The [facility] Comment on above:Performed By: #### CBC #### [facility] [address] [place] [address] Dr. Alejandra Decker #2.8 103/ulNormal1.4-6.5The [facility] HospitalComment on above:Performed By: #### CBC #### [facility] [address] [place] [address] Dr. Alejandra Daileyutrophils/100 WBC (Bld)47.5 %Qlevso19.0-75.0The [facility] HospitalComment on above:Performed By: #### CBC #### [facility] [address] [place] [address] Dr. Alejandra Jones mean volume (Bld) [Entitic vol]10.7 fLNormal9.5-13.5The [facility] HospitalComment on above:Performed By: #### CBC #### [facility] [address] [place] [address] Dr. Alejandra TrotterPLT282 103/xkZgnjfh955-614Cia [facility] HospitalComment on above: Performed By: #### CBC #### [facility] [address] [place] [address] Dr. Alejandra TrotterRBC5.16 106/ulNormal4.20-5.40The [facility] HospitalComment on above:Performed By: #### CBC #### [facility] [address] [place] [address] Dr. Alejandra TrotterWBC5.8 103/ulNormal4.0-11.0The [facility] on above: Performed By: #### CBC #### [facility] [address] [place] [address] Dr. Alejandra Moncada-DIMERon 74-62-9481L-DIMER0.58 mg/L FEUNormal<=0.59The [facility] on above:Performed By: #### DDIM #### [facility] [address] [place] [address] Dr. Alejandra Moncada-DIMER COMMENTSSEE [facility] on above:Result Comment: Increases in D-Dimer [...] generalized hospitalization. Performed By: #### DDIM #### [facility] [address] [place] [address] Dr. Alejandra Cannon URINE PROFILEon 92-05-6440Lpkjemdoo Ql (U)NegativeNormal NEGATIVEThe [facility] on above:Performed By: #### ERUR #### [facility] [address] [place] [address] Dr. Alejandra TrotterClarity (U)CLEARNormalCLEARThe [facility] HospitalComuniversity of [facility] on above: Performed By: #### ERUR #### [facility] [address] [place] [address] Dr. Alejandra Stallworth (U)LT. YELLOWNormalYELLOWBrecksville Va / Crille HospitalComuniversity of [facility] health on above:Performed By: #### ERUR #### [facility] [address] [place] [address] Dr. Alejandra Forde micrscopic examination will be performed if indicated. NormalThe [facility] HospitalComment on above:Performed By: #### ERUR #### [facility] [address] [address] [address] Alejandra TrotterGlucose Ql (U)>1000AbnormalNEGATIVEBrecksville Va / Crille HospitalComment on above:Performed By: #### ERUR #### [facility] [address] [place] [address] Dr. Alejandra TrotterHemoglobin Ql (U)TRACE-LYSEDAbnormalNEGATIVEBrecksville Va / Crille Hospital Comment on above:Performed By: #### ERUR #### [facility] [address] [place] [address] Dr. Alejandra TrotterKetones Ql (U)>=80AbnormalNEGATIVEBrecksville Va / Crille HospitalComment on above:Performed By: #### ERUR #### [facility] [address] [place] [address] Dr. Alejandra TrotterLEUKOCYTESNegativeNormalNEGATIVEBrecksville Va / Crille HospitalComment on above:Performed By: #### ERUR #### [facility] [address] [place] [address] Dr. Alejandra TrotterNitrite Ql (U)NegativeNormalNEGATIVEBrecksville Va / Crille HospitalComment on above:Performed By: #### ERUR #### [facility] [address] [place] [address] Dr. Alejandra TrotterpH (U)5.0 [pH]Normal5-9[facility] Cr[facility] HospitalComment on above: Performed By: #### ERUR #### [facility] [address] [place] [address] Dr. Alejandra TrotterSPEC GRAVITY1.664Gemdwi1.005-<=1.025The [facility] HospitalComment on above:Performed By: #### ERUR #### [facility] [address] [place] [address] Dr. Alejandra Johnson PROTEINNegativermalNEGATIVE/ TRACEBrecksville Va / Crille Hospital Comment on above:Performed By: #### ERUR #### [facility] [address] [place] [address] Dr. Alejandra Emmanuel MICRO INDNOT INDICATEDKettering Health TroyComment on above:Performed By: #### ERUR #### [facility] [address] [place] [address] Dr. Alejandra Wilkesbilinogen Qn (U)0.2 {Rui'U}/dLNormal0.2 - 1.0The [facility] on above:Performed By: #### ERUR #### [facility] [address] [place] [address] Dr. Alejandra TrotterLACTATE/LACTIC ACIDon 10-53-7833Erlpbzb [Moles/Vol]1.1 mmol/L Normal0.4-2.0The [facility] on above:Performed By: #### LACT #### [facility] [address] [place] [address] Dr. Alejandra TrotterPOINT OF CARE GLUCOSEon 56-17-0239Llxcqvp [Mass/Vol]322 mg/dL Critically jjyq10-404Atr [facility] on above:Performed By: #### POCGLUC #### [facility] [address] [place] [address] Dr. Alejandra TrotterPROF 14(COMP METB)on 89-54-8072Rgwevax [Mass/Vol]3.6 g/dLNormal 3.4-5.0The [facility] on above:Performed By: #### HSTROPN, CMP #### [facility] [address] [place] [address] Dr. Alejandra TrotterAlbumin/Globulin [Mass ratio]0.9 {ratio}NormalThe [facility] on above:Performed By: #### HSTROPN, CMP #### [facility] [address] [place] [address] Dr. Alejandra MartP [Catalytic activity/Vol]107 U/BAwrzia93-078Ryn [facility] on above:Performed By: #### HSTROPN, CMP #### [facility] [address] [place] [address] Dr. Alejandra MartT [Catalytic activity/Vol]14 U/VCzdodj96-56Grg [facility] on above:Performed By: #### HSTROPN, CMP #### [facility] [address] [address] [address] Alejandra Matthewson gap [Moles/Vol]20.6 mmol/LNormalThe [facility] Comment on above:Performed By: #### HSTROPN, CMP #### [facility] [address] [place] [address] Dr. Alejandra TrotterAST [Catalytic activity/Vol]11 U/LCritically jhp27-36Sjl [facility] HospitalComment on above:Performed By: #### HSTROPN, CMP #### [facility] [address] [place] [address] Dr. Alejandra TrotterBilirubin [Mass/Vol]0.4 mg/dLNormal0.2-1.0[facility] Comment on above:Performed By: #### HSTROPN, CMP #### [facility] [address] [place] [address] Dr. Alejandra TortterCalcium [Mass/Vol]9.0 mg/dLNormal8.5-10.1[facility] Comment on above:Performed By: #### HSTROPN, CMP #### [facility] [address] [place] [address] Dr. Alejandra TrotterChloride [Moles/Vol]97 mmol/LCritically azm21-110Mvp [facility] HospitalComment on above:Performed By: #### HSTROPN, CMP #### [facility] [address] [place] [address] Dr. Alejandra TrotterCO2 [Moles/Vol]19.7 mmol/LCritically low21.0-32.0The [facility] HospitalComment on above:Performed By: #### HSTROPN, CMP #### [facility] [address] [place] [address] Dr. Alejandra TrotterCreatinine [Mass/Vol]0.83 mg/dLNormal0.55-1.02The [facility] HospitalComment on above:Performed By: #### HSTROPN, CMP #### [facility] [address] [address] [address] Alejandra NealGFR-AF VIETNAMESE>60Normal>=60The [facility] HospitalComment on above:Performed By: #### HSTROPN, CMP #### [facility] [address] [address] [address] Alejandra NealGFR-NON AF VIETNAMESE>60Normal>=60The [facility] HospitalComment on above:Performed By: #### HSTROPN, CMP #### [facility] [address] [place] [address] Dr. Alejandra TrotterGlobulin (S) [Mass/Vol]4.2 g/dLNormalThe [facility] HospitalComment on above:Performed By: #### HSTROPN, CMP #### [facility] [address] [place] [address] Dr. Alejandra TrotterGlucose [Mass/Vol]389 mg/dLCritically utpo78-600Ikd [facility] HospitalComment on above:Performed By: #### HSTROPN, CMP #### [facility] [address] [place] [address] Dr. Alejandra TrotterPotassium [Moles/Vol]4.3 mmol/LNormal3.5-5.1The [facility] Comment on above:Performed By: #### HSTROPN, CMP #### [facility] [address] [place] [address] Dr. Alejandra TrotterProtein [Mass/Vol]7.8 g/dLNormal6.4-8.2The [facility] Comment on above:Performed By: #### HSTROPN, CMP #### [facility] [address] [place] [address] Dr. Alejandra TrotterSodium [Moles/Vol]133 mmol/LCritically qwy718-590Cmv [facility] on above:Performed By: #### HSTROPN, CMP #### [facility] [address] [place] [address] Dr. Alejandra TrotterUrea nitrogen [Mass/Vol]5.0 mg/dLCritically low7.0-18.0The [facility] Medical Centerment on above:Performed By: #### HSTROPN, CMP #### [facility] [address] [address] [address] Alejandra TrotterUrea nitrogen/Creatinine [Mass ratio]6.0 mg/mgNormalThe [facility] HospitalComment on above:Performed By: #### HSTROPN, CMP #### [facility] [address] [address] [address] Alejandra TrotterSYMPTOMATIC COVID-19 ANTIGENon [id number] StatementSEE BELOW NormalThe [facility] on above:Result Comment: This test has [...] is revoked sooner.Performed By: #### CVDAGS #### [facility] [address] [address] [address] Alejandra Wilkerson-CoV-2 (COVID-19) RNA NEENA+probe Ql (Unsp spec)NegativeNormal NEGATIVEThe [facility] HospitalComuniversity of [facility] health on above:Performed By: #### CVDAGS #### [facility] [address] [place] [address] Dr. Alejandra Valladares, HIGH SENSITIVITYon 28-13-9999BKFAFB2.6 pg/mLNormal 4.0-51.3The [facility] on above:Result Comment: CUT-OFF POINTS HAVE BEEN ESTABLISHED BASED ON THE FOURTH UNIVERSAL DEFINITIONS OF MYOCARDIAL INFARCTION. THE UPPER REFERENCE LIMIT (URL) OF TROPONIN, DEFINED THE 99TH PERCENTILE OF cTnI DISTRIBUTION IN A REFERENCE POPULATION, HAS BEEN CONFIRMED THE DECISION THRESHOLD FOR MT DIAGNOSIS.Performed By: #### HSTROPN, CMP #### [facility] [address] [address] [address] Alejandra TrotterXR CHEST 2 Von [id number] CHEST 2 VEXAMINATION: XR CHEST 2 V [...] Electronically authenticated by: LORETA MACKENZIE Date: 2022-10-19 21:48[facility] TroyCOVID Quick Testingon 00-92-1441WomexlAcueujqyLnlhh [facility] Other Vital Signs Date TimeVital SignValuePerforming JhziymlbsGkajwzlb94-46-0428 13:44-0400Body luhyvn101.2 Leonard Christianson MD Work Phone: [phone] HospitalUtevqrgofl06-27-7956 13:44-0400Body mass index (BMI) [Ratio]32.42 kg/f0DfgyzMeghna Christianson MD Work Phone: [phone] [place], [place] [address]Yabagqtvtf63-38-3649 13:44-0400Body eqwuky80.89 kgMeghna Christianson MD Work Phone: [phone] [place], [place] [address]Cykydbczkk47-34-8461 13:44-0400Heart rate99 /min Meghna Christianson MD Work Phone: [phone] [place], [place] [address]Cuduyyvvhl66-98-0895 13:44-0400Respiratory rate20 /minMeghna Christianson MD Work Phone: [phone] [place], [place] [address]Mmwzqxafxi46-23-1406 13:44-5518GrM3% (BldA) [Mass fraction]99 %Meghna Christianson MD Work Phone: [facility] HospitalLoufziqkcc81-82-9312 13:32-0400Body wkbwaf798.7 Kavitha Keen MD Work Phone: [facility] Bfypnl23-32-8857 13:32-0400Body mass index (BMI) [Ratio]26.33 kg/q9MbegdCarmen Keen MD Work Phone: [facility] Wmfpyp51-66-1374 13:32-0400Body wegqht90.56 kgCarmen Keen MD Work Phone: [facility] Oycigz18-75-9453 13:32-0400Diastolic blood tbacatnm45 mm[Hg]Carmen Keen MD Work Phone: [facility] Evfoor58-87-7356 13:32-0400Systolic blood mm[Hg]Carmen Keen MD Work Phone: [facility]07-10-2025 13:18-0400Body wudoin914.3 cmMelany Raedy DO Work Phone: [facility]07-10-2025 13:18-0400Body mass index (BMI) [Ratio]24.32 kg/p3Ikfxbo Raedy DO Work Phone: [facility] Epgwzj33-71-7986 13:18-0400Body weight 74.71 kgMelany Raedy DO Work Phone: [facility] Rquxhd53-88-0108 13:18-0400Diastolic blood mm[Hg]Stanton Raedy DO Work Phone: [facility] Opybbf59-81-0030 13:18-0400Heart rate89 /minMelany Raedy DO Work Phone: [facility]07-10-2025 13:18-0885BaF6% (BldA) [Mass fraction]97 %Stanton Raedy DO Work Phone: [facility]07-10-2025 13:18-0400Systolic blood bqvfsxab083 mm[Hg]Stanton Raedy DO Work Phone: [facility]06-19-2025 06:47-0400Body nuasnrvwdqd41.7 [degF]Rikki Oscar MD Work Phone: [phone]-Jordyn [facility]06-19-2025 06:47-0400Diastolic blood hxnashqa58 mm[Hg]Rikki Oscar MD Work Phone: [phone]-[facility] HospitalKaty [facility]06-19-2025 06:47-0400Heart rate77 /Rachel Oscar MD Work Phone: [phone]-[facility] HospitalLenoraBon [facility]06-19-2025 06:47-0400 Respiratory rate16 /Rachel Oscar MD Work Phone: [phone] [place], [place] [address]606-19-2025 06:47-1022AvK3% (BldA) [Mass fraction]96 %Rikki Oscar MD Work Phone: [phone]-[facility] HospitalKaty [facility]06-19-2025 06:47-0400Systolic blood mm[Hg]Rikki Oscar MD Work Phone: [phone]-Jordyn [facility]06-19-2025 06:23-0400Body mfxpim057.7 Michele Oscar MD Work Phone: [phone]-Jordyn [facility]06-19-2025 05:45-0400Body mass index (BMI) [Ratio]23.72 kg/m2Rikki Oscar MD Work Phone: [phone]-Jordyn [facility]06-19-2025 05:45-0400Body luqszv96.76 kgRikki Oscar MD Work Phone: [phone]-Jordyn [facility]06-18-2025 19:51-0400Body yarnbobizmd72Iynh Seamons MD Work Phone: [phone]-Jordyn [facility]06-04-2025 12:54-0400Body ujpkdh203.7 [facility]06-04-2025 12:54-0400Body mass index (BMI) [Ratio]23.05 kg/m2[facility]06-04-2025 12:54-0400Body qmteof71.77 kgPwsRiverside Methodist Hospital06-04-2025 12:54-0400Diastolic blood xpqcmcsi01 mm[Hg][facility] 12-06-2024 12:54-0400Systolic blood btiudkoi747 mm[Hg][facility]04-16-2025 09:23-0400Diastolic blood fvxidqia85 mm[Hg]Flory Toure DO Work Phone: [facility]04-16-2025 09:23-0400Systolic blood mm[Hg]Flory Toure DO Work Phone: [facility]04-16-2025 07:48-0400Body cydkdrymsun83.6 [degF]Flory Toure DO Work Phone: [facility]04-16-2025 07:48-0400Heart rate75 /minJaveria Toure DO Work Phone: [facility]04-16-2025 07:48-0400 Respiratory rate20 /minJaveria Toure DO Work Phone: [facility]04-16-2025 07:48-6909IxS3% (BldA) [Mass fraction]97 %Flory Toure DO Work Phone: [facility]04-16-2025 04:30-0400Body mass index (BMI) [Ratio]20.98 kg/j3Iyslccu Toure DO Work Phone: [facility]04-16-2025 04:30-0400Body .6 kgJaveria Toure DO Work Phone: [place] [address]-14-2025 22:51-0400Body .7 cmJaveria Toure DO Work Phone: [facility]3245 09:29-0400Body .2 cmGomez BANGURA Work Phone: [facility] Cntroe38-90-5245 09:29-0400Body mass index (BMI) [Ratio]21.68 kg/h8SklitxGomez Green APRN-FULL DECATOR OPERATOR Work Phone: [facility] Qcgdue15-85-9784 09:29-0400Body afxrwufjmyu23.2 [degF]Gomez Green SEWER PIPE CLEANER-FULL DECATOR OPERATOR Work Phone: [facility] Hlervr98-36-5284 09:29-0400Body bdppyv94.78 kgBrniall Green SEWER PIPE CLEANER-FULL DECATOR OPERATOR Work Phone: [facility] Ozmqkl71-82-3041 09:29-0400Diastolic blood oxydhcol91 mm[Hg]Gomez Green APRN-FULL DECATOR OPERATOR Work Phone: [facility] Cgzqcx29-28-6611 09:29-0400Heart rate 110 /minGomez Green APRN-FULL DECATOR OPERATOR Work Phone: [facility] Ewslyn57-70-7038 09:29-3552AeN6% (BldA) [Mass fraction]97 %Gomez Green APRN-FULL DECATOR OPERATOR Work Phone: [facility] Fdghwa98-59-1435 09:29-0400Systolic blood xbghujzn586 mm[Hg]Gomez Green APRN-FULL DECATOR OPERATOR Work Phone: [facility] Xkbjfd46-80-3050 08:22-0500Body mrtxzi665.7 cmGomez Green APRN-FULL DECATOR OPERATOR Work Phone: [facility] Guhizy99-72-8333 08:22-0500Body mass index (BMI) [Ratio]23.11 kg/m8HzcodmGomez Green SEWER PIPE CLEANER-FULL DECATOR OPERATOR Work Phone: [facility] Sjizqh53-16-9714 08:22-0500Body meumekkmofh72.5 [degF]Gomez Green SEWER PIPE CLEANER-FULL DECATOR OPERATOR Work Phone: [facility] Zzmvrl59-64-4283 08:22-0500Body qzuzcd94.95 kgBrniall Green SEWER PIPE CLEANER-FULL DECATOR OPERATOR Work Phone: [facility] Xpnofx76-88-7894 08:22-0500Diastolic blood glmwlbeo94 mm[Hg]Gomez Green APRN-FULL DECATOR OPERATOR Work Phone: [facility] Gcstns94-93-5547 08:22-0500Heart rate 98 /minGomez Green APRN-FULL DECATOR OPERATOR Work Phone: [facility] Tmmhtx12-66-4534 08:22-2727DrX2% (BldA) [Mass fraction]98 %Gomez Green APRN-FULL DECATOR OPERATOR Work Phone: [facility] Ekecqk76-87-8955 08:22-0500Systolic blood knudbflg418 mm[Hg]Gomez Green APRN-FULL DECATOR OPERATOR Work Phone: [facility] Clryrd12-71-6710 13:04-0500Body knbpuq826.7 cmThao Perez DO Work Phone: [facility] Uchyom87-04-3177 13:04-0500Body mass index (BMI) [Ratio]23.17 kg/t7RcapiTeri Perez DO Work Phone: [facility] Zmpifr82-90-4595 13:04-0500Body zbxucn74.13 kgTeri Perez DO Work Phone: [facility] Qfqyeb51-04-1629 13:04-0500Diastolic blood wdifefgz92 mm[Hg]Teri Perez DO Work Phone: [facility] Rbdbpa96-00-2554 13:04-0500Systolic blood mm[Hg]Teri Perez DO Work Phone: [facility] Lodvxj21-60-3264 10:52-0500Body fotqxl718.7 cmGomez Green APRN-FULL DECATOR OPERATOR Work Phone: [facility] Hmthuw95-22-7981 10:52-0500Body mass index (BMI) [Ratio]23.16 kg/f4DaujiwGomez Green APRN-FULL DECATOR OPERATOR Work Phone: [facility] Oacgoi39-57-0616 10:52-0500Body likznppqaex09.6 [degF]Gomez Green APRN-LYNNETTE Work Phone: [facility] Hjyhkc25-74-2124 10:52-0500Body iivzru48.08 kgGomez Green APRN-LYNNETTE Work Phone: [facility] Jjbmeq07-78-7755 10:52-0500Diastolic blood uiwjaece62 mm[Hg]Gomez Green APRN-LYNNETTE Work Phone: [facility] Igmqbo79-65-2633 10:52-0500Heart rate 100 /minGomez Green APRN-LYNNETTE Work Phone: [facility] Dqblrt64-28-0961 10:52-1149JnC9% (BldA) [Mass fraction]97 %Gomez Green APRN-LYNNETTE Work Phone: [facility] Llqlsw85-74-4362 10:52-0500Systolic blood wxhfkysj079 mm[Hg]Gomez Green APRN-LYNNETTE Work Phone: [facility] Yqxgzp11-89-7491 11:32-0500Body weycuc540.3 cmStanton Kohler DO Work Phone: [facility] Yhrjva63-75-0594 11:32-0500Body mass index (BMI) [Ratio]36.39 kg/c6HmmofsStanton Kohler DO Work Phone: [facility] Pyvkke19-39-1734 11:32-0500Body ktvzoouolro60.1 [degF]Stanton Kohler DO Work Phone: [facility] SpringsC[facility] Ppcvwm11-32-1205 11:32-0500Body weight 111.77 kgStanton Kohler DO Work Phone: [facility] Yyctnf89-35-3778 11:32-0500Diastolic blood kmocmlve69 mm[Hg]Stanton Johnsony DO Work Phone: [facility]01-21-2022 11:32-0500Heart rate82 /Yanira Kohler DO Work Phone: [facility]01-21-2022 11:32-0500Respiratory rate16 /Yanira Kohler DO Work Phone: [facility]01-21-2022 11:32-4978FjB9% (BldA) [Mass fraction]100 %Stanton Kohelr DO Work Phone: [facility]01-21-2022 11:32-0500Systolic blood kvxrjbby871 mm[Hg]Stanton Kohler DO Work Phone: [facility]01-06-2022 12:30-0500Body height 175.3 cmDaalyssia Juares Jr., DO Work Phone: 1(067)[address] [place], [place] 6883801-06-2022 12:30-0500Body mass index (BMI) [Ratio]36.48 kg/n8Kuguxalyssia Juares Jr., DO Work Phone: 1(451)[address] [place], [place] 6883801-06-2022 12:30-0500Body newiswoacty83.01 [degF]Loreta Juares Jr., DO Work Phone: 1(649)[address] [place], [place] 6883801-06-2022 12:30-0500Body weight 112.04 kgDavidiana Juares Jr., DO Work Phone: 1(492)[address] [place], [place] 6883801-06-2022 12:30-0500Diastolic blood dmmpujvc92 mm[Hg]Loreta Juares Jr., DO Work Phone: 1(356)[address] [place], [place] 6883801-06-2022 12:30-0500Systolic blood vujyenbw296 mm[Hg]Loreta Juares Jr., DO Work Phone: 1(574)[address] [place], [place] 6883810-29-2021 17:15-0400Body height 171.45 Brian Whitehead Other [employer] Other 10-29-2021 17:15-0400Body mass index (BMI) [Ratio] 33.94 kg/v2AimvyoLenora Whitehead Other [facility] Other 10-29-2021 17:15-0400Body znrkvupbpqh40.5 [degF]Lenora Whitehead Other [facility] Other 10-29-2021 17:15-0400Body dypjad32.79 kgLenora Whitehead Other [facility] Other 10-29-2021 17:15-0400Respiratory rate18 /minLenora Whitehead Other [employer] Other 10-29-2021 17:15-3237HuV9% (BldA) [Mass fraction]98 % Lenora Whitehead Other [employer] Other Encounters Encounter DateEncounter TypeCare ProviderFacilityStart: 04-26-2025 End: 91-78-4455fajeqjrqnoMauzng Sue Cramer SALES PROMOTION COORDINATORCaesar Work Phone: [phone]-Niypftfmo[address] [place] [address] NeurologyStart: 04-26-2025 End: 71-67-2589Xirmnah encounter procedureChristopher Clemente [facility] Work Phone: Start: 04-16-2025 End: 36-30-8406Ghtpnc outpatient new 45 minutesMeghna Christianson MD Work Phone: [facility] [place] EndocrinologyComment on above: Postablative hypothyroidism (Primary Dx); Thyroid noduleStart: 04-16-2025 End: 51-77-2042Jshzcbdelaney Christianson MD Work Phone: [facility] [place] EndocrinologyStart: 04-16-2025 End: 51-09-9113Ljhozk Kaley Christianson MD Work Phone: [facility] EndocrinologyStart: 04-16-2025 End: 67-22-8729zlqqenjjufOIZTYFer [place] AvailableStart: 02-27-2025 End: 27-48-6431Kxopou [facility] Amanda [facility] Physicians Obstetrics/GynecologyComment on above:Abnormal TSH (Primary Dx)Start: 02-12-2025 End: 85-30-8147Fbosug [facility] Amanda [facility] Physicians Obstetrics/GynecologyComment on above:Elevated TSH (Primary Dx); Low serum prolactinStart: 02-09-2025 End: 94-52-8408Rsfdrw-up Zully Pete SEWER PIPE CLEANER-FULL DECATOR OPERATOR Work Phone: [facility] Physicians Obstetrics/GynecologyComment on above:Progesterone, Estradiol, Prolactin, Additional followed-up results: 6 Start: 02-08-2025 End: 21-56-2935wrntjadohfLGAPCAFirelands Regional Medical Center South Campustart: 02-08-2025 End: 24-33-6578Dbpxyeekpt hospital visit by [facility]Edge[facility] Laboratory Schedule [facility] LABComment on above:Peripheral neuropathy due to disorder of metabolism; Weakness of both legsStart: 01-30-2025 End: 39-93-2896Wqewxm outpatient visit 15 minutesCarmen Keen MD Work Phone: [facility] Physicians Obstetrics/GynecologyComment on above:Postmenopausal syndrome (Primary Dx)Start: 01-30-2025 End: 25-33-2321nnaujlbajgATFDIUniversity of Vermont Health Network Ambulatory PPGStart: 01-12-2025 End: 08-23-0318Qvoebm Lara Pete SEWER PIPE CLEANER-FULL DECATOR OPERATOR Work Phone: [facility] Physicians Obstetrics/GynecologyComment on above:Kiesha glabrata infection (Primary Dx)Start: 01-11-2025 End: 92-23-5221Ngpkto outpatient new 30 minutesStanton Kohler DO Work Phone: [facility] N JESAS AVEComment on above: Weakness (Primary Dx)Start: 81-96-0796bdtpqpyddiORUCJI RAEDYAvita Pikeville HospitalStart: 01-10-2025 End: 32-58-5293Kdmprjndl department patient visitMICHAEL Longt HospitalStart: 17-50-6006spkcevvekqMFYDVD Libby Jedanjum [facility] HospitalStart: 12-25-2024 End: 72-17-1419sxvlrqmdtwHYRY KROTZERWayne Healthcare Main Campus HospitalStart: 12-25-2024 End: 98-45-3204Hbikvqzusd hospital visit by [facility] Ultrasound [facility] UltrasoundComment on above:Nipple dischargeStart: 12-20-2024 End: 43-94-4920Zlpwlqrgew and management of inpatientRikki Oscar MD Work Phone: [facility] MED SURGComment on above:Diabetic ketoacidosis without coma associated with type 2 diabetes mellitus (HCC) (Primary Dx)Start: 12-20-2024 End: 18-45-1707Pjehuh Lara Pete SEWER PIPE CLEANER-FULL DECATOR OPERATOR Work Phone: [facility] Obstetrics/GynecologyComment on above:Vasomotor symptoms due to menopause (Primary Dx); Brain fog; IrritabilityStart: 12-12-2024 End: 56-32-3518Neypjd Lara Pete SEWER PIPE CLEANER-FULL DECATOR OPERATOR Work Phone: [facility] Obstetrics/GynecologyComment on above:Kiesha glabrata infection; Vaginal yeast infectionHistory of uterine fibroidStart: 12-08-2024 End: 86-65-5564nuffpyurfbKKYFPN OGECHSelect [facility] HospitalStart: 12-08-2024 End: 40-14-2286Mjkpznwuzp hospital visit by [facility] LABComment on above:Lumbar radiculopathyThyroid noduleAcute pain of left kneeStart: 12-07-2024 End: 53-71-1142Nxwzdn Shirley Solis CMAProMedica Physicians Obstetrics/GynecologyComment on above:Nipple discharge (Primary Dx)Kiesha glabrata infection (Primary Dx); Vaginal yeast infectionStart: 12-06-2024 End: 60-61-1603Fryxzwkyp encounterJessica Pete APRN-FULL DECATOR OPERATOR Work Phone: [facility] Obstetrics/GynecologyStart: 12-06-2024 End: 80-75-3945Qmhaecf encounter procedureP[facility]sc [facility] Start: 12-06-2024 End: 51-86-4082Suyyqjqt preventive med est patient 40-64yrsPlindsay municipal hospital – l[facility] Ob Scout Leaser [facility] - CyldeComment on above:Well woman exam with routine gynecological exam (Primary Dx); Screening mammogram for breast cancer; Screening for STD (sexually transmitted disease); Acute vaginitis; History of uterine fibroid; Nipple discharge; Pelvic pain; Screening for colon cancerStart: 12-06-2024 End: 48-59-7703drvchrxjtcITLCQNavos Health Ambulatory PPGStart: 44-34-2409Rvwkcmpqt for gynecological examination (general) (routine) without abnormal findingsGlendora Community Hospital Ambulatory PPGStart: 11-14-2024 End: 62-15-2375bzykzjxlinVGQTEYWFulton County Health Centertart: 11-14-2024 End: 11-46-8417Dwjuysnwpp hospital visit by Pilar Green APRN - FULL DECATOR OPERATOR Work Phone: [facility] LABComment on above:Swelling of both lower extremities; Type 2 diabetes mellitus with hyperglycemia, without long-term current use of insulin (HCC)Start: 11-14-2024 End: 88-17-9538Nwjxuprvv encounterDabert [facility] Call CenterComment on above:ResultsStart: 10-19-2024 End: 50-45-0091Lmdlafvca encounterDiane Restrepo RN Work Phone: [facility] Internal Medicine - Family MedicineComment on above:Transition Of CareStart: 10-16-2024 End: 68-18-8604Qkmjnriiuy and management of inpatientJaveria Quinton Toure DO Work Phone: mthz [facility]USU MED SURGComment on above:Swelling of both lower extremities (Primary Dx); Edema, unspecified type; Type 2 diabetes mellitus with hyperglycemia, without long-term current use of insulin ([facility])Start: 10-29-2023 End: 96-36-4579Dlvxjhnmq encounterAnny Vee DEE DEEWood County Hospital Physicians Internal Medicine - Family MedicineComment on above:Preventative ScreeningStart: 10-19-2023 End: 34-26-4397Gduwam OnlyGomez Green SEWER PIPE CLEANER-FULL DECATOR OPERATOR Work Phone: [facility] Internal [facility] - [facility] Hospitaltart: 10-13-2023 End: 14-11-6883upmyqvbzyuEXQJNE L RAUCHProtestant Deaconess Hospitaltart: 10-13-2023 End: 91-03-5374Ojyvqr outpatient visit 25 minutesGomez Green SEWER PIPE CLEANER-FULL DECATOR OPERATOR Work Phone: [facility] Internal Medicine - Family MedicineComment on above:Acquired hypothyroidism (Primary Dx); Type 2 diabetes mellitus with hyperglycemia, without long-term current use of insulin ([facility]); Goiter; Smoking; History of Sjogren's disease ([facility])Start: 09-01-2023 End: 84-20-5817pdokcztpmjYVABQN L RAKIMBERLYProtestant Deaconess Hospitaltart: 09-01-2023 End: 21-69-9934Jrylvxi encounter statusGomez Green SEWER PIPE CLEANER-FULL DECATOR OPERATOR Work Phone: [facility] HospitalMeet[facility] Work Phone: Start: 09-01-2023 End: 91-60-6034Sovoqzei preventive med est patient 40-64yrsGomez Souza Norma SEWER PIPE CLEANER-FULL DECATOR OPERATOR Work Phone: [facility] Internal Medicine - Family MedicineComment on above:Wellness examination (Primary Dx); Other specified diabetes mellitus with hyperglycemia, without long-term current use of insulin ([facility]); Graves disease; Acquired hypothyroidism; Special screening for malignant neoplasm of colon; SmokingStart: 08-31-2023 End: 83-50-8658Qhpqkhrwq for gynecological examination (general) (routine) without abnormal findingsTeri Perez DO Work Phone: [facility]7Summitstart: 08-31-2023 End: 93-56-3912Ohlpucl encounter procedureTanjorge Perez DO Work Phone: [facility] HospitalBeam Networks [facility] Children's Hospitaltart: 08-31-2023 End: 27-40-0295Wocjoapc preventive med est patient 40-64yrsThao Perez DO Work Phone: [facility] Obstetrics/GynecologyComment on above:Well woman exam with routine gynecological exam (Primary Dx); Screening mammogram for breast cancer; Cervical smear, as part of routine gynecological examination; History of uterine fibroid; Menorrhagia with regular cycle; History of Graves' disease; History of cervical cancer; Smoker; Weight loss; History of Sjogren's disease ([facility])Start: 74-78-1812Dbakob OnlyGomez Green SEWER PIPE CLEANER-FULL DECATOR OPERATOR Work Phone: [facility] Internal Medicine - Family [facility] Montgomerytart: 08-27-2023 End: 66-56-2890ritcrdimrpEWNHRB L RAUCHProtestant Deaconess Hospitaltart: 08-27-2023 End: 26-18-6908Ljvldi outpatient new 45 minutesGomez Green SEWER PIPE CLEANER-FULL DECATOR OPERATOR Work Phone: [facility] Internal Medicine - Family MedicineComment on above:Encounter for medical examination to establish care (Primary Dx); Graves' disease; Acquired hypothyroidism; Sjogren syndrome, unspecified ([facility]); Goiter; Malignant neoplasm of cervix, unspecified site ([facility]); Hyperglycemia; Hyperlipidemia, unspecified hyperlipidemia type; Smoking; Nail fungus; HyperpigmentationStart: 08-27-2023 End: 51-51-5005Varbkis encounter statusGomez Green SEWER PIPE CLEANER-FULL DECATOR OPERATOR Work Phone: [facility] HospitalMeetMe Work Phone: Start: 10-19-2022 End: 53-80-2583scstbuchbrHU DOCTOR MISCFacility:B8Douas: 03-17-2022 End: 03-77-7173lovnlrygiyFG DOCTOR MISCFacility:E9Uwpqh: 07-25-2021 End: 95-01-4869Inctrk outpatient visit 40 minutesMelany F Raedy DO Work Phone: [facility] Julian NeurologyComment on above: Nocturnal leg movements (Primary Dx)Start: 07-10-2021 End: 22-14-3282Mimgfx outpatient new 45 minutesDavid Johnathan Juares DO Work Phone: [facility] RheumatologyComment on above:History of Sjogren's disease (Primary Dx); Hyperpigmentation of skin of cheek; Xerostomia; Dry mouth; Dry eyes; Telangiectasia of face; Hypothyroidism, unspecified type; Hyperglycemia; Basedow's disease; Keratoconjunctivitis sicca; Osteoarthritis of right hand, unspecified osteoarthritis type; Osteoarthritis of left foot, unspecified osteoarthritis type; Lumbar degenerative disc diseaseStart: 05-02-2021(URG) Urgent Care VisitPamela DymondFPG Urgent Care Tommy Procedures DateProcedureProcedure DetailPerforming ClinicianStart: 02-08-2025 End: 09-14-7996Wfccgesa kinase totalKecesar Araiza MD Work Phone: start: 36-75-0822WPTDSBK B12 & FOLATEKempramiro Araiza MD Work Phone: start: 04-35-4570Xz breast uni real time with image limitedJessica Pete APRN - SALES PROMOTION COORDINATOR Work Phone: [phone]: 12-25-2024 End: 76-58-3525Srjmglmswz mammography computer-aided detcj Janett Pete APRN - SALES PROMOTION COORDINATOR Work Phone: Start: 59-37-7048GPSQSSQ, WHOLE BLOODMark Pk Herron MD Work Phone: Start: 40-05-2109MPNBPWH, WHOLE BLOODMark Pk Herron MD Work Phone: Start: 16-51-2630Pkrhuw ecg 1-3 leads w/interpretation & reportUnknown Provider ResultStart: 23-05-2762Oljqc count complete auto&auto difrntl wbcMegan L Heather SEWER PIPE CLEANER - FULL DECATOR OPERATOR Work Phone: Start: 51-62-1496INCWBZO, WHOLE BLOODMark Pk Herron MD Work Phone: Start: 56-39-9422Tddvq dip stick/tablet reagent auto microscopyMegan Libby Romero SEWER PIPE CLEANER - FULL DECATOR OPERATOR Work Phone: Start: 73-30-6378Zjdsz metabolic panel calcium total Rikki Oscar MD Work Phone: Start: 39-02-6586TUQGWZN, WHOLE BLOODRikki Oscar MD Work Phone: Start: 12-20-2024 End: 04-10-5141Da head/brain w/o contrast materialRikki Oscar MD Work Phone: Start: 63-94-4128Rxn routine ecg w/least 12 lds w/i&r Rikki Oscar MD Work Phone: Start: 66-40-4001Nyigu gases any combination ph pco2 po2 co2 xzw1PrmzRikki Oscar MD Work Phone: Start: 48-00-0386Erxzikdezqofq metabolic panelRikki Oscar MD Work Phone: Start: 89-77-0457SQYJBYU, DEMETRIUS Oscar MD Work Phone: Start: 69-48-7546Qk soft tissue head & neck real time imge Leda Clancy MD Work Phone: Start: 87-49-6669Apgjtlgxuj examination knee 1/2 views Shelley Clancy MD Work Phone: Start: 32-88-0062Htghbfmqioqnr metabolic panelUnknown Provider ResultStart: 09-10-0475Azufr albumin quantitativeUnknown Provider ResultStart: 72-09-1577BVVSACP, WHOLE BLOODChrisstephanie Avila MD Work Phone: Start: 52-24-4083JKIOMMU, WHOLE BLOODChemilie Avila MD Work Phone: Start: 18-37-2742Nkfrk of thyroid stimulating hormone tshShadolfo Hernan HarrellBhupinder Packback Work Phone: Start: 92-79-7163Vykyry ecg 1-3 leads w/interpretation & reportUnknown Provider ResultStart: 55-17-4923Ajxhb of osmolality urineJill E Hemmelgarn DO Work Phone: Start: 90-20-7260Wyrpt albumin quantitativeJill E Hemmelgarn DO Work Phone: Start: 10-17-2024 End: 86-71-1404DISLGHD, WHOLE BLOODChristopher Diana Avila MD Work Phone: Start: 53-60-9092Jx angio abd&plvis cntrst mtrl w/wo cntrst imgShijordy Hernan HarrellBhupinder Packback Work Phone: Start: 10-17-2024 End: 77-96-2874Lyvrym ecg 1-3 leads w/interpretation & reportUnknown Provider ResultStart: 95-20-7114Uhsfy dip stick/tablet reagent auto microscopyMegan Libby Heather [employer] Work Phone: Start: 74-54-0429Iemywfyktm glycosylated b5yWsqju L Heather Packback Work Phone: Start: 04-69-4280BYXRQBG, WHOLE BLOODChristopher Diana Avila MD Work Phone: Start: 10-16-2024 End: 33-15-1944Dae routine ecg w/least 12 lds i&r onlyJaveria J Toure DO Work Phone: Start: 27-20-5838Cvaftjsigzjqt metabolic panelJaveria J Toure DO Work Phone: Start: 18-03-9392Kzohf depression screening assessment Gomezniall Green [employer] Work Phone: Start: 56-96-9182Ntzyg depression screening assessment Gomez Norma [employer] Work Phone: Start: 24-31-8362Hbrrncapqrrj [Mass/volume] in Urine by Test stripGomez Green SEWER PIPE CLEANERKaiser Permanente Work Phone: Start: 27-35-5370Myosr depression screening assessment Teri Perez DO Work Phone: Start: 01-35-8355Elvlrsxjbgc observation [Identifier] in Cervix by Cyto stainGomez Green SEWER PIPE CLEANERKaiser Permanente Work Phone: Start: 65-96-1624Swslt depression screening assessment Gomez Green SEWER PIPE CLEANERKaiser Permanente Work Phone: Start: 79-66-8477IqfjsemyukgOqtzqe Rauch [employer] Work Phone: Plan of Treatment DateCare ActivityDetailAuthorStart: 52-40-4275Itihesejf for malignant neoplasm of breastBreast cancer screenBon [facility] ReserveMyHomeStart: 50-27-6669Pkjuxeasv for malignant neoplasm of cervixPap SmearWood County Hospital [facility]o SystemStart: 85-46-3073Ermkure CounselingTobacco CounselingJoint Township District Memorial [facility] SystemStart: 65-97-7139Joykj BMI ScreeningAdult BMI ScreeningWood County Hospital Health SystemStart: 89-03-2194Ltoncrd ScreeningTobacco ScreeningWood County Hospital Health SystemStart: 48-11-6910Zawxm BMI ScreeningAdult BMI ScreeningProBethesda North Hospitalca Health SystemStart: 68-26-6374Tyuhfhw ScreeningTobacco ScreeningSelect Medical [facility] Rehabilitation Hospitalca Health SystemStart: 05-49-5381Rsgacsdyg for malignant neoplasm of breastMammogramJoint Township District Memorial Hospital SystemStart: 53-82-5804SZB test (Diabetes, CKD 3-4, OR last GFR 15-59)GFR test (Diabetes, CKD 3-4, OR last GFR 15-59)[facility] AmericaStart: 12-06-2025 Adult BMI ScreeningAdult BMI ScreeningJoint Township District Memorial Hospital SystemStart: 12-06-2025 Tobacco ScreeningTobacco ScreeningJoint Township District Memorial Hospital SystemStart: 19-47-7377NZX test (Diabetes, CKD 3-4, OR last GFR 15-59)GFR test (Diabetes, CKD 3-4, OR last GFR 15-59)[facility]: 55-77-7936Bnxaj screening for protein Diabetic Alb to Cr ratio (uACR) testNorton Community Hospital: 15-15-7499HRJ test (Diabetes, CKD 3-4, OR last GFR 15-59)GFR test (Diabetes, CKD 3-4, OR last GFR 15-59)[facility]: 10-23-5218Bhdzx screening for protein Diabetic Alb to Cr ratio (uACR) testRussell County Medical Centerart: 07-17-2025 End: 39-11-9438Jkyckmo encounter bnbfniyda33/13/2026 2:30 PM EST Office Visit [facility] [address] [place] [address] Meghna Christianson MD [address], [address] [place] [address] [facility] EndocrinologyStart: 04-16-2025 End: 96-79-0991Dqvxhlx encounter spicowyfd71/13/2025 2:40 PM EDT Office Visit [facility] [address] [address] [place] [address] Meghna Christianson MD [address], [address] [place] [address] ArrivedDHAVAL Quintanilla EndocrinologyComment on above:ArrivedStart: 04-16-2025 End: 66-65-8155Ibbvatusosz [Units/volume] in Serum or PlasmaTSH Lab Routine Postablative hypothyroidism Expected: 04/16/2025 (Approximate), Expires: 04/16/2026NOIA HealthcareComment on above:Expected: 04/16/2025 (Approximate), Expires: 04/16/2026Start: 04-16-2025 End: 72-63-5784Eaclawefc (T4) free [Mass/volume] in Serum or PlasmaT4, free Lab Routine Postablative hypothyroidism Expected: 04/16/2025 (Approximate), Expires: 04/16/2026[facility] HealthcareComment on above:Expected: 04/16/2025 (Approximate), Expires: 04/16/2026Start: 04-16-2025 End: 34-77-8619Vhbxeqtrzexgionm (T3) Free [Mass/volume] in Serum or PlasmaT3, free Lab Routine Postablative hypothyroidism Expected: 04/16/2025 (Approximate), Expires: 04/16/2026[facility] Work Phone: Comment on above:Expected: 04/16/2025 (Approximate), Expires: 04/16/2026Start: 03-22-2025 End: 55-30-9473Otsuilm encounter bdmuekykd78/18/2025 2:20 PM EDT Office Visit [facility] NEUROLOGY Part of [address] [place] [address] Trice Araiza MD [address] [place] [address] [address] [place] [address] Peripheral Neuropathy ; 1 mth follow up EEG, [facility] NEUROLOGY Part [facility] HospitalComment on above:Peripheral Neuropathy ; 1 mth follow up EEG, labsStart: 03-06-2025 End: 95-20-6983Llfntpf encounter youpywilw68/02/2025 2:15 PM EDT Office Visit [facility] [address] [place] [address] Carmen Keen MD [address] [place], [place] [id number] [facility] Obstetrics/GynecologyStart: 58-85-7117Dnahydqpd vaccinationSelect Medical OhioHealth Rehabilitation Hospitalca [facility] SystemStart: 69-61-4647Vzpmzlz CounselingTobacco CounselingJoint Township District Memorial Hospital SystemStart: 02-08-2025 End: 20-82-2173Zbnjygz encounter vqygdvyki72/07/2025 1:20 PM EDT Office Visit [facility] NEUROLOGY Part of [address] [place] [address] Trice Araiza MD [address] [place] [address] Dr [address] [place] [address] [facility] NEUROLOGY Part [facility] HospitalComment on above: ALSStart: 02-05-2025 End: 35-15-0080Nbmlpzq encounter sgyhgkgtt72/04/2025 1:40 PM EDT Office Visit [facility] NEUROLOGY Part of [address] [place] [address] Trice Araiza MD [address] [place] [address] Dr [address] [place] [address] [facility] NEUROLOGY Part [facility] HospitalComment on above: ALSStart: 76-56-2718Ivplcmlkq vaccinationBon [facility] Memorial Hospital - WestStart: 01-30-2025 End: 30-09-0029Jtavoak encounter hlcskluog17/29/2025 1:30 PM EDT Office Visit [facility] [address] [place] [id number] Carmen Keen MD [address] [place] [address] [facility] Obstetrics/GynecologyStart: 01-18-2025 End: 33-44-1068WsywxuocfoojumzeHOK & NERVE CONDUCTION Neurology Routine Weakness Expected: 01/18/2025, Expires: 01/11/2026[facility] SystemComment on above: Expected: 01/18/2025, Expires: 01/11/2026Start: 19-21-1354Doiwbqksnu A1c ahkiqifjijzS8C test (Diabetic or Prediabetic)[facility] AmericaStart: 01-01-2025 End: 91-67-3072Rnaddxt encounter bjofsfxrx52/30/2025 4:45 PM EDT Appointment [facility] Physical Therapy [address] [place] [address] Star Bobby Stephanie, PTMTHZ Physical TherapyStart: 01-01-2025 End: 45-64-4083Wlxcjwf encounter procedureAshtabula [facility] Hospital MammographyComment on above:media/ptStart: 12-25-2024 End: 32-41-6344Mnslciu encounter procedureAshtabula General Hospital MammographyComment on above:media/ptStart: 12-12-2024 End: 38-00-3816Aptifax encounter zlcmydmhi33/10/2025 1:00 PM EDT Appointment [facility] Ultrasound [address] [place] [address] media/ptMDelaware County Hospital UltrasoundComment on above:media/pt Start: 12-07-2024 End: 87-62-4963VX Breast - bilateral limitedUltrasound breast limited bilateral Imaging Routine Nipple discharge Expected: 12/07/2024, Expires:12/07/2025 [employer] Work Phone: Comment on above:Expected: 12/07/2024, Expires: 12/07/2025Start: 12-06-2024 End: 06-52-9705IG Breast DiagnosticMammography diagnostic bilateral with CAD Imaging Routine Nipple discharge Expected: 12/06/2024, Expires: 12/06/2025 [facility] - DublinUrban Consign & Design SystemComment on above:Expected: 12/06/2024, Expires: 12/06/2025Start: 12-06-2024 End: 67-89-3204CQ Pelvis transabdominal and transvaginalUltrasound pelvic with transvaginal Imaging Routine History of uterine fibroid Pelvic pain Expected: 12/06/2024, Expires: 12/06/2025[employer] SystemComment on above:Expected: 12/06/2024, Expires: 12/06/2025Start: 10-25-2024 End: 95-29-8618Peojb metabolic 2000 panel - Serum or PlasmaBasic Metabolic Panel Lab Routine Swelling of both lower extremities Type 2 diabetes mellitus with h yperglycemia, without long-term current use of insulin (HCC) Expected: 10/25/2024, Expires: 10/18/2025[facility] Medical CenterComment on above: Expected: 10/25/2024, Expires: 10/18/2025Start: 10-25-2024 End: 86-63-6975FTR W Auto Differential panel - BloodCBC with Auto Differential Lab Routine Swelling of both lower extremities Type 2 diabetes mellitus with hyperglycemia, without long-term current use of insulin (HCC) Expected: 10/25/2024, Expires: 10/18/2025on [facility] HospitalSightCine [facility] on above: Expected: 10/25/2024, Expires: 10/18/2025Start: 04-47-7170Qceqm BMI Screening Adult BMI ScreeningProHighlands Medical Center Okeo SystemStart: 23-22-2972Pycepuxtsp Screening Depression ScreeningWood County Hospital Okeo [facility] Children's Hospitaltart: 75-54-6806Evicoib Screening Tobacco ScreeningProSelect Medical Trihealth Rehabilitation Hospital SystemStart: 01-52-8984Vpwqc BMI Screening Adult BMI ScreeningProHighlands Medical Center Okeo SystemStart: 70-51-6797Kyrashrsjg Screening Depression ScreeningProHighlands Medical Center Okeo SystemStart: 50-00-5324Vwwwsupt foot examinationDiabetic Foot ExamProSelect Medical Trihealth Rehabilitation Hospital SystemStart: 62-20-6585Eabadio ScreeningTobacco ScreeningProSelect Medical [facility] Rehabilitation Hospital SystemStart: 81-96-6375Pdgep screening for proteinUrine MicroalbuminProHighlands Medical Center Okeo SystemStart: 08-31-2024 Adult BMI ScreeningAdult BMI ScreeningProSelect Medical [facility] Rehabilitation Hospital SystemStart: 08-31-2024 Depression ScreeningDepression ScreeningProHighlands Medical Center Okeo SystemStart: 08-31-2024 Tobacco ScreeningTobacco ScreeningProHighlands Medical Center Okeo SystemStart: 91-88-1896Ydugw BMI ScreeningAdult BMI ScreeningProSelect Medical [facility] Rehabilitation Hospital SystemStart: 08-27-2024 Depression ScreeningDepression ScreeningWood County Hospital Okeo SystemStart: 08-27-2024 Tobacco ScreeningTobacco ScreeningWood County Hospital Okeo SystemStart: 14-36-9097WOMLO- 19 Vaccine ( season)COVID-19 Vaccine ( season)[facility] HospitalSightCine [facility] HospitalStart: 36-15-3533Dpaqbkuve vaccinationInfluenza VaccineProSelect Medical [facility]health Rehabilitation Hospital SystemStart: 10-13-2023 End: 93-72-5153PJ Thyroid glandUltrasound thyroid Imaging Routine Goiter Expected: 10/13/2023, Expires: 10/12/2024[facility] Work Phone: Comment on above:Expected: 10/13/2023, Expires: 10/12/2024Start: 10-13-2023 End: 32-84-1475Qzwukpu encounter namvmbheu79/10/2024 8:40 AM EDT Office Visit [facility] Internal Medicine - Family Medicine [address] [place] [address] Gomez Green, SEWER PIPE CLEANER-FULL DECATOR OPERATOR [address] [place] [address] [facility] Internal Medicine - Family MedicineStart: 09-15-2023 End: 79-54-8898Iuxypal encounter /13/2024 9:30 AM EDT Office Visit [facility]Gyne[facility] [address] [place] [phone] Teri Perez, DO [address] [place], [place] [address] [facility] Obstetrics/GynecologyStart: 09-01-2023 End: 59-58-0710Dogeqqp encounter klpvoaijl26/28/2024 8:30 AM EST Office Visit [facility] Internal Medicine - Family Medicine [address] [place] [address] Gomez Green, SEWER PIPE CLEANER-FULL DECATOR OPERATOR [address] [place] [address] [facility] Internal Medicine - Family MedicineStart: 08-31-2023 End: 39-84-3370Rpwqgzioeeiph procedure, preparation of smear, genital sourcePap Smear Pathology and Cytology Routine Cervical smear, as part of routine gynecological examination Expected: 08/31/2023 (Approximate), Expires: 08/31/2024ProBethesda North HospitalLabtrip [facility] SystemComment on above:Expected: 08/31/2023 (Approximate), Expires: 08/31/2024Start: 08-31-2023 End: 30-72-4043ADC Breast - bilateral screeningMammography screening bilateral with CAD Imaging Routine Screening mammogram for breast cancer Expected: 08/31/2023, Expires: 08/31/2024[facility] Work Phone: Comment on above:Expected: 08/31/2023, Expires: 08/31/2024Start: 08-31-2023 End: 05-62-1923OH Pelvis transabdominal and transvaginalUltrasound pelvic with transvaginal Imaging Routine History of uterine fibroid Menorrhagia with regular cycle Expected: 08/31/2023, Expires: 08/31/2024[facility] SystemComment on above:Expected: 08/31/2023, Expires: 08/31/2024Start: 08-31-2023 End: 36-32-8623Itprhns encounter ogqoytjua98/27/2024 1:00 PM EST Office Visit [facility] [address] Teri Perez DO [address] [place] [address] [facility] Obstetrics/GynecologyStart: 99-24-1624GUfE,Tdap and Td Vaccines (2 - Td or Tdap) DTaP,Tdap and Td Vaccines (2 - Td or Tdap)[facility] SystemStart: 68-22-4634ZDaU/Tdap/Td vaccine (2 - Td or Tdap)DTaP/Tdap/Td vaccine (2 - Td or Tdap)[facility] AmericaStart: 07-42-7049Zjvxzug vaccinationTETANUSAvita [facility] SystemStart: 60-01-4661Jdwurjadu vaccinationInfluenza VaccineJoint Township District Memorial Hospital SystemStart: 38-44-6794Dslotcfmw for malignant neoplasm of breastBreast cancer screenBon [facility] Hospital - WestStart: 07-16-2022 End: 12-16-9506Jxqzfpi encounter dzoxaeicx84/12/2023 Office Visit Rheumatology Mor Harmon, Loreta Mann, DO [address] [phone] [facility] RheumatologyStart: 06-23-2022 End: 80-90-9361U-reactive proteinC REACTIVE PROTEIN Lab Routine History of Sjogren's disease Hyperpigmentation of skin of cheek Xerostomia Dry mouth Dry eyes Telangiectasia of face Hypothyroidism, unspecified type Hyperglycemia Based ow's disease Keratoconjunctivitis sicca Osteoarthritis of right hand, 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, unspecified osteoarthritis type Lumbar degenerative disc disease Expected: 06/23/2022 (Approximate), Expires: 07/10/2022[facility] HospitalComment on above:Expected: 06/23/2022 (Approximate), Expires: 07/10/2022Start: 06-23-2022 End: 71-14-8372B7 COMPLEMENTC3 COMPLEMENT Lab Routine History of Sjogren's disease Hyperpigmentation of skin of cheek Xerostomia Dry mouth Dry eyes Telangiectasia of face Hypothyroidism, unspecified type Hyperglycemia 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, 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, unspecified osteoarthritis type Lumbar degenerative disc disease Expected: 06/23/2022 (Approximate), Expires: 07/10/2022[facility] SystemComment on above:Expected: 06/23/2022 (Approximate), Expires: 07/10/2022Start: 06-23-2022 End: 96-12-0721D6 COMPLEMENTC4 COMPLEMENT Lab Routine History of Sjogren's disease Hyperpigmentation of skin of cheek Xerostomia Dry mouth Dry eyes Telangiectasia of face Hypothyroidism, unspecified type Hyperglycemia 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, 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, unspecified osteoarthritis type Lumbar degenerative disc disease Expected: 06/23/2022 (Approximate), Expires: 07/10/2022[facility] SystemComment on above:Expected: 06/23/2022 (Approximate), Expires: 07/10/2022Start: 06-23-2022 End: 65-01-7288LIGN Lab Routine History of Sjogren's disease Hyperpigmentation of skin of cheek Xerostomia Dry mouthDry eyes Telangiectasia of face Hypothyroidism, unspecified type Hyperglycemia Basedow's disease Ker atoconjunctivitis sicca Osteoarthritis of right hand, 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, unspecified osteoarthritis type Lumbar degenerative disc disease Expected: 06/23/2022 (Approximate), Expires: 07/10/2022[facility] HospitalComment on above:Expected: 06/23/2022 (Approximate), Expires: 07/10/2022Start: 06-23-2022 End: 91-08-4038Rjmhugez blood count with white cell differential, automatedCBC, EDIF, PLATELET Lab Routine History of Sjogren's disease Hyperpigmentation of skin of cheek Xerostomia Dry mouth Dry eyes Telangiectasia of face Hypothyroidism, unspecified type Hyperglycemia 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, 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, unspecified osteoarthritis type Lumbar degenerative disc disease Expected: 06/23/2022 (Approximate), Expires: 07/10/2022[facility] HospitalComment on above:Expected: 06/23/2022 (Approximate), Expires: 07/10/2022Start: 06-23-2022 End: 21-67-5255Pkjwsjteppuwq metabolic 2000 panel - Serum or PlasmaCOMPREHENSIVE METABOLIC PANEL Lab Routine History of Sjogren's disease Hyperpigmentation of skin ofcheek Xerostomia Dry mouth Dry eyes Telangiectasia of face Hypothyroidism, unspecified type Hyperglycemia 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, unspecified osteoar thritis type Osteoarthritis of left foot, unspecified osteoarthritis type Lumbar degenerative disc disease Expected: 06/23/2022 (Approximate), Expires: 07/10/2022[facility] HospitalComment on above:Expected: 06/23/2022 (Approximate), Expires: 07/10/2022Start: 06-23-2022 End: 36-04-4759UUQEYNCOUCDLD RATE, AUTOMATEDSEDIMENTATION RATE, AUTOMATED Lab Routine History of Sjogren's disease Hyperpigmentation of skin ofcheek Xerostomia Dry mouth Dry eyes Telangiectasia of face Hypothyroidism, unspecified type Hyperglycemia 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, 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, unspecified osteoarthritis type Lumbar degenerative disc disease Expected: 06/23/2022 (Approximate), Expires: 07/10/2022[facility] SystemComment on above:Expected: 06/23/2022 (Approximate), Expires: 07/10/2022Start: 06-23-2022 End: 40-64-6410Dxfpqxcrwg dipstick W Reflex Microscopic panel - UrineURINE MICROSCOPIC Fluids Routine History of Sjogren's disease Hyperpigmentation of skin of cheek Xerostomia Dry mouth Dry eyes Telangiectasia of face Hypothyroidism, unspecified type Hyperglycemia 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, 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, unspecified osteoarthritis type Lumbar degenerative disc disease Expected: 06/23/2022 (Approximate), Expires: 07/10/2022[facility] SystemComment on above:Expected: 06/23/2022 (Approximate), Expires: 07/10/2022Start: 06-23-2022 End: 97-33-4259Wtewbepowx, reagent strip without microscopyURINALYSIS, MACRO Fluids Routine History of Sjogren's disease Hyperpigmentation of skin of cheek Xerostomia Dry mouth Dry eyes Telangiectasia of face Hypothyroidism, unspecified type Hyperglycemia 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, 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, unspecified osteoarthritis type Lumbar degenerative disc disease Expected: 06/23/2022 (Approximate), Expires: 07/10/2022[facility] SystemComment on above:Expected: 06/23/2022 (Approximate), Expires: 07/10/2022Start: 11-08-2021 Screening for malignant neoplasm of breastSelect Medical [facility]Health Rehabilitation Hospitalca Health SystemStart: 09-05-2021 End: 89-57-6139Gscmtsanybqv consultation with zsunnwp9109/05/2021 Telemedicine Neurology Stanton Kohler F, DO [address] [place] [address] [facility] NeurologyStart: 44-97-6635Kztgnjfpq vaccinationINFLUENZA VACCINE (#1)[facility] Hospitaltart: 2020 ColonoscopyCOLORECTAL CANCER SCREENING DISCUSSIONParma Community General Hospitaltart: 36-72-2714Pajwcvrmv for malignant neoplasm of colonCritical access hospitaltart: 54-79-6040Aahydouu screeningDiabetic retinal examBon [facility] Hospital - WestStart: 38-77-3901Jvqqrzp lipid profileLIPID SCREENINGParma Community General Hospitaltart: 13-47-7406Ewzdq panelLIPID SCREENINGParma Community General Hospitaltart: 2015 Screening mammographyMAMMOGRAM SCREENING DISCUSSIONParma Community General Hospitaltart: 00-91-1718Mqokcxeew for malignant neoplasm of cervixHospital Corporation Of America Start: 72-20-3981Wjxvwvprp for malignant neoplasm of cervixFulton County Health Center Start: 40-27-4205Vblpavcob B vaccinationHEP B VACCINE (1 of 3 - 19+ 3-dose series)[facility] Hospitaltart: 89-80-5703Otrcrgnia B vaccine (1 of 3 - 19+ 3- dose series)Hepatitis B vaccine (1 of 3 - 19+ 3-dose series)[facility] AmericaStart: 99-91-2552Cumxgzpekcsb 0-49 years Vaccine (1 of 2 - PCV) Pneumococcal 0-49 years Vaccine (1 of 2 - PCV)[facility] Centerart: 97-70-1309Qzdbb diphtheria, tetanus and acellular pertussis (DTaP) vaccination TDAP (ADULT)[facility] Hospitaltart: 06-66-8966Dofbk BMI Follow Up PlanAdult BMI Follow Up PlanCritical access hospitaltart: 94-94-6855Ockuewrfw C screening Hepatitis C screenHospital Corporation Of AmericaStart: 22-23-5956Whckijf vaccination TETANUSParma Community General Hospitaltart: 78-10-1854NKN screeningFulton County Health Center Start: 80-45-0303Bcuejotpjk ScreenDepression ScreenBon [facility] Start: 45-45-4539Fgtggayt foot examinationDiabetic foot examBon [facility] Hospital - WestStart: 33-42-6922Kvhfi panelLipidsHospital Corporation Of AmericaStart: 90-24-3540PDNCL-19 VACCINE (1)COVID-19 VACCINE (1)[facility] Hospitaltart: 92-80-5717Mgzbtzdc screeningDiabetic Ophthalmology ExamDiley Ridge Medical Center Start: 45-53-8819Zpsqkgaxk C antibody, confirmatory testHEPATITIS C VIRUS SCREENINGPar[facility] Community General Hospitaltart: 45-71-1482Qmopcvxll C screeningHEPATITIS C VIRUS SCREENINGParma Community General Hospitaltart: 82-31-3785Uiaqtxc stimulating hormone measurementTSJ.W. Ruby Memorial Hospitaltart: 41-91-2679Zqprfve CounselingTobacco CounselingDiley Ridge Medical Center End: 80-01-9531Ddnxq Gas, VenousBlood Gas, Venous Lab Add-On One Time for 1 Occurrences starting 12/20/2024 until 12/20/2024on [facility] valuescope [facility] on above:One Time for 1 Occurrences starting 12/20/2024 until 12/20/2024 End: 42-91-0683Clvlg gas, venousBlood gas, venous Lab Routine Tomorrow AM for 1 Occurrences starting 12/21/2024 until 12/21/2024on [facility] valuescope [facility] on above:Tomorrow AM for 1 Occurrences starting 12/21/2024 until 12/21/2024 peptide [Mass/volume] in Serum or PlasmaC-peptide Lab Routine Other specified diabetes mellitus with hyperglycemia, without long-term current use of insulin ([facility]) 09/01/2023 4:16 PM [facility] End: 72-89-4977F-peptideC-peptide Lab Routine Other specified diabetes mellitus with hyperglycemia, without long-term current use of insulin ([facility]) 1 Occurrences starting 09/01/2023 until 09/01/2024[employer] Work Phone: Comment on above:1 Occurrences starting 09/01/2023 until 09/01/2024 End: 92-05-2799Z-PeptideBon [facility] valuescope [facility] on above:One Time for 1 Occurrences starting 10/18/2024 until 10/18/2024 End: 52-35-2187KAS panel - Blood by Automated countCBC without diff Lab Routine Postmenopausal syndrome 1 Occurrences starting 01/30/2025 until 01/30/2026 [facility] Work Phone: Comment on above:1 Occurrences starting 01/30/2025 until 01/30/2026 End: 97-89-3569WZH W Auto Differential panel - BloodCBC auto differential Lab Routine Daily for 5 Days starting 10/17/2024 until 10/21/2024, 2 [facility] [employer] [facility] HospitalComment on above:Daily for 5 Days starting 10/17/2024 until 10/21/2024, 2 completed End: 11-09-0567MVL W Auto Differential panel - BloodCBC auto differential Lab Routine Daily for 5 Days starting 12/21/2024 until 12/25/2024, 1 [facility] [employer] [facility] HospitalComuniversity of [facility] health on above:Daily for 5 Days starting 12/21/2024 until 12/25/2024, 1 completedChlamydia trachomatis DNA [Presence] in Unspecified specimen by NEENA with probe detectionChlamydia/GC by PCR Imelda [facility] Microbiology Routine Screening for STD (sexually transmitted disease) 12/06/2024 1:37 PM EDT [facility] - DublinUrban Consign & Design SystemCologuard Non-ProMedicaCologuard Non-[facility] Lab Routine Special screening for malignant neoplasm of colon Ordered: 09/01/2023 [facility] DublinUrban Consign & Design [facility] HospitalComment on above:Ordered: 09/01/2023ologuard Non-ProMedicaCologuard Non-[facility] Lab Routine Screening for colon cancer Ordered: 12/06/2024[facility]ont HospitalComment on above:Ordered: 12/06/2024 End: 73-79-7899Jmohnhklcycdt Metabolic Panel w/ Reflex to MGComprehensive Metabolic Panel w/ Reflex to MG Lab Routine Daily for 5 Days starting 10/17/2024 until 10/21/2024, 2 [facility] [employer] [facility] HospitalComun[facility] on above:Daily for 5 Days starting 10/17/2024 until 10/21/2024, 2 completed End: 71-23-0567Uvvtutoadxpxg Metabolic Panel w/ Reflex to MGComprehensive Metabolic Panel w/ Reflex to MG Lab Routine Daily for 5 Days starting 12/21/2024 until 12/25/2024, 1 [facility] [employer] [facility] HospitalComun[facility] health on above:Daily for 5 Days starting 12/21/2024 until 12/25/2024, 1 completed End: 02-03-8730MfsxlphrBkeknmwa Lab Routine Vasomotor symptoms due to menopause Brain fog Irritability 1 Occurrences starting 12/20/2024 until 12/20/2025 [facility] SystemComment on above:1 Occurrences starting 12/20/2024 until 12/20/2025 End: 28-16-6700MZWF-sulfateDHEA-sulfate Lab Routine Vasomotor symptoms due to menopause Brain fog Irritability 1 Occurrences starting 12/20/2024 until 12/20/2025[facility] HospitalBeam Networks SystemComment on above:1 Occurrences starting 12/20/2024 until 12/20/2025Electrophoresis Protein, SerumElectrophoresis Protein, Serum Lab Routine Peripheral neuropathy due to disorder of metabolism 02/08/2025 3:01 PM [facility] [employer] Work Phone: End: 97-83-9975JutrlhvsdZgboszxis Lab Routine Vasomotor symptoms due to menopause Brain fog Irritability 1 Occurrences starting 12/20/2024 until 12/20/2025[employer] Work Phone: Comment on above:1 Occurrences starting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 InactivatedComments10/16/2024 10:49 PM10/18/2024 4:14 PMTypeDate RecordedPatient RepresentativeExplanationACP-Advance Directive12/21/2024 1:07 PMDPOAHC and Living Will [id number] ActivatedDate InactivatedComments12/21/2024 1:16 AMDate ActivatedDate InactivatedComments10/16/2024 10:49 PM10/18/2024 4:14 PMName RelationshipHealthcare Agent RelationshipCommunicationArowen RettigChildPrimary Decision Maker* Silus RettigChildSecondary Decision Maker* Date ActivatedDate InactivatedComments12/21/2024 1:16 AM12/21/2024 3:53 PMName RelationshipHealthcare Agent RelationshipCommunicationArowen RettigChildPrimary Decision Maker* Silus RettigChildSecondary Decision Maker* NameRelationshipHealthcare Agent RelationshipCommunicationArowen RettigChild Primary Decision Maker* Silus RettigChildSecondary Decision Maker* TypeDate RecordedPatient RepresentativeExplanationACP-Advance Directive12/21/2024 1:07 PMDPOAHC and Living Will [id number] ActivatedDate InactivatedComments 12/21/2024 1:16 AM12/21/2024 3:53 PMDate [...] previously seen by your for migrainesReasonOnset DateCommentsPreventative Bsmixmdre26/26/2024ReasonCommentsnew patientReasonCommentsAnnual ExamPap: 3 years agoMam: 11/08/20Periods: Regular [...] unspecified type Becky Avila MD [address] [place] [address] Phone: tel: fax: [facility] [address] [place] [address] Referral IDStatusReasonStart DateExpiration DateVisits RequestedVisits [id number] DateCommentsTransition Of Care10/19/2024Reason Onset JykaTiemqbfwMqvljvo47/13/2025ReasonCommentsAltered Mental StatusPatient states that for the past few days she has been having episodes of confusion shakiness. Was told by her Dr that she may be having mini strokes.Patient is a diabetic and does have some concern for blood sugar issues causing the symptoms. SpecialtyDiagnoses / ProceduresReferred By ContactReferred To Contact Diagnoses Type 2 diabetes mellitus with hyperglycemia (HCC) Ann Herron MD [address] [place] [address], [place] [address] Phone: tel: fax: [facility] [address] [place] [address] Referral IDStatusReasonSterling DateExpiration DateVisits RequestedVisits [id number] PatientLast seen in Jul.Reason CommentsHRTReasonCommentsThyroid ProblemNEW NODULE REF/LAB/USSpecialtyDiagnoses / ProceduresReferred By ContactReferred To ContactEndocrinology Diagnoses Nontoxic single thyroid nodule Procedures ID OFFICE/OUTPATIENT NEW MODERATE MDM 45 MINUTES Ashlyn Rosa MD [address] [facility], [facility] [address], [place] [address] Phone: tel: fax: Meghna Christianson MD [address] [facility] [address] [place] [address] Phone: tel: fax: Referral IDStatusReasonStart DateExpiration DateVisits RequestedVisits [id number]/18/202512/ Care Teams (unrecognized sec tion and content) Team MemberRelationshipSpecialtyStart DateEnd Date Office Of Gabe Jolly Md Other [address] [facility] [place] [address] PCP - General10/29/16Team MemberRelationshipSpecialtyStart DateEnd Date Office Of Gabe Jolly Md Other [address] [facility] [place] [address] PCP - General10/29/16Te MemberRelationshipSpecialtyStart DateEnd Date Gomez Green SEWER PIPE CLEANER-FULL DECATOR OPERATOR [address] [place] [address] PCP - GeneralInternal Medicine08/27/23Team MemberRelationshipSpecialtyStart Date End Date Gomez Green SEWER PIPE CLEANER-FULL DECATOR OPERATOR [address] [place] [address] PCP - GeneralInternal Medicine08/27/23Team MemberRelationshipSpecialtyStart Date End Date Gomez Green SEWER PIPE CLEANER-FULL DECATOR OPERATOR [address] [place] [address] PCP - GeneralInternal Medicine08/27/23Team MemberRelationshipSpecialtyStart Date End Date Gomez Green SEWER PIPE CLEANER-FULL DECATOR OPERATOR [address] [place] [address] PCP - GeneralInternal Medicine08/27/23Team MemberRelationshipSpecialtyStart Date End Date Gomez Green SEWER PIPE CLEANER-FULL DECATOR OPERATOR [address] [place] [address] PCP - GeneralInternal Medicine08/27/23Team MemberRelationshipSpecialtyStart Date End Date Gomez Green [facility] [address] [place] [address] PCP - GeneralInternal Medicine08/27/23Team MemberRelationshipSpecialtyStart Date End Date Gomez Green [facility] [address] [place] [address] PCP - GeneralInternal Medicine08/27/23Team MemberRelationshipSpecialtyStart Date End Date Gomez Green [facility] [address] [place] [address] PCP - GeneralFamily Medicine10/17/24Team MemberRelationshipSpecialtyStart DateEnd Date Gomez Green SEWER PIPE CLEANER [facility] [address] [place] [address] PCP - GeneralFamily Medicine10/17/24Team MemberRelationshipSpecialtyStart DateEnd Date Gomez Green SEWER PIPE CLEANER [facility] [address] [place] [address] PCP - GeneralFamily Medicine10/17/24Team MemberRelationshipSpecialtyStart DateEnd Date Gomez Green [facility] [address] [place] [address] PCP - GeneralFamily Medicine10/17/24Team MemberRelationshipSpecialtyStart DateEnd Date Gomez Green, SEWER PIPE CLEANER - FULL DECATOR OPERATOR [address] [place] [address] [facility] - [facility]10/17/24Team MemberRelationshipSpecialtyStart DateEnd Date Gomez Green, SEWER PIPE CLEANER - FULL DECATOR OPERATOR [address] [place] [address] PCP - Generalmily Medicine10/17/24Team MemberRelationshipSpecialtyStart DateEnd Date Gomez Green, SEWER PIPE CLEANER - FULL DECATOR OPERATOR [address] [place] [address] PCP - Generalmi Medicine10/17/24Team MemberRelationshipSpecialtyStart DateEnd Date Shelley Clancy MD [address] [place] [address] PCP - General12/21/24Team MemberRelationshipSpecialtyStart DateEnd Date Shelley Clancy MD [address] [place] [address] PCP - General12/21/24Team MemberRelationshipSpecialtyStart DateEnd Date Shelley Clancy MD [address] [place] [address] PCP - General12/21/24Team MemberRelationshipSpecialtyStart DateEnd Date Office Of Gabe Jolly Md Other [address] [place] [address] PCP - General10/29/16Team MemberRelationshipSpecialtyStart DateEnd Date Ashlyn Rosa MD [address] [place] [address] PCP - [facility]01/10/25Team MemberRelationshipSpecialtyStart DateEnd Date Ashlyn Rosa MD [address] [place] [address] PCP - [facility]01/10/25Team MemberRelationshipSpecialtyStart DateEnd Date Ashlyn Rosa MD [address] [facility] [place] [address] PCP - [facility]01/10/25Team MemberRelationshipSpecialtyStart DateEnd Date Shelley Clancy MD [address] [place] [address] PCP - General12/21/24Team MemberRelationshipSpecialtyStart DateEnd Date Ashlyn Rosa MD [address] [place] [address] PCP - [facility]01/10/25Team MemberRelationshipSpecialtyStart DateEnd Date Ashlyn Rosa MD [address] [place] [address] PCP - [facility]01/10/25 Team Status: Active Member Role/Relationship Status Dates Lenora Hoff SALES PROMOTION COORDINATOR-C Primary Care Provider Active Team Status: Inactive Member Role/Relationship Status Dates Becky Cornejo DO Attending Provider Active Start: April 26, 2025 End: April 26, 2025Lenora Hoff NP-[facility] Care ProviderActiveStart: April 26, 2025 End: April 26, 2025 INFORMATION SOURCE (unrecogn ized section and content) DATE CREATED AUTHOR 10/20/2022 [facility] DATE CREATED AUTHOR AUTHOR'S ORGANIZ ATION 10/15/2023 [facility] DATE CREATED AUTHOR AUTHOR'S ORGANIZ ATION 01/14/2025 [facility] DATE CREATED AUTHOR AUTHOR'S ORGANIZ ATION 02/01/2025 [facility] DATE CREATED AUTHOR AUTHOR'S ORGANIZ ATION 02/03/2025 [facility] DATE CREATED AUTHOR AUTHOR'S ORGANIZ ATION 02/11/2025 [facility] DATE CREATED AUTHOR AUTHOR'S ORGANIZ ATION 04/17/2025 [facility] EPIC Ordered Prescriptions (unrec [...] * 0947 (Not Given - Provider: Radha Baraajs, RN - Reason: Patient/family refused) glipiZIDE (GLUCOTROL) [...] not present on arrival to [facility]) sodium chloride flush 0.9 % injection 10 [...] BE BASED ON THE PRIMARY CLINICAL RECORDS. [employer] provides no warranty or guarantee of the accuracy or completeness of information in this document.
[2025-06-15 15:50] LABS: Hematocrit 47.6 % (36.0-48.0); Hemoglobin 15.8 g/dL (12.0-16.0); Immature Granulocytes Abs Auto 0.01 10^3/uL (0.00-0.03); Immature Granulocytes Pct Auto 0.1 % (0.0-0.5); Lymphocytes Absolute Auto 2.4 10^3/uL (1.2-3.8); Mean Corpuscular HGB Conc 33.2 g/dL (29.9-35.2); Mean Corpuscular Hemoglobin 30.1 pg (26.7-34.0); Mean Corpuscular Volume 90.7 fL (81.0-99.0); Platelet Count 356 10^3/uL (150-450); Red Blood Count 5.25 10^6/uL (4.20-5.40); White Blood Count 7.2 10^3/uL (4.0-11.0)
[2025-06-15 16:23] LABS: Alanine Aminotransferase 34 U/L (14-59); Albumin Globulin Ratio 0.9; Albumin Level 3.8 g/dL (3.4-5.0); Alkaline Phosphatase 96 U/L (46-116); Anion Gap 13.2; Aspartate Amino Transferase 23 U/L (15-37); Blood Urea Nitrogen 11.0 mg/dL (7.0-18.0); Calcium 9.5 mg/dL (8.5-10.1); Carbon Dioxide 24.5 mmol/L (21.0-32.0); Chloride 102 mmol/L (98-107); Cholesterol 198 mg/dL (<=200); Estimated GFR (African America >60 (>=60 mL/min/1.73m^2); Estimated GFR (Non-African Ame >60 (>=60 mL/min/1.73m^2); Globulin 4.1 g/dL; Glucose 120 mg/dL (74-106); HDL Cholesterol 63 mg/dL (40-60); Potassium 3.7 mmol/L (3.5-5.1); Sodium 136 mmol/L (136-145); Total Protein 7.9 g/dL (6.4-8.2); Triglycerides 144 mg/dL (<=150); VLDL CHOLESTEROL 28.8 mg/dL
[2025-06-15 16:34] LABS: Free T3 2.27 pg/mL (2.18-3.98); Thyroid Stimulating Hormone 9.325 uIU/mL (0.358-3.740)
[2025-06-15 17:02] LABS: Iron 96.0 ug/dL (50.0-170.0)
== END 2025-06-15 15:19 | disposition home or self-care (01) ==
LOC: LAB 15:19
PROVIDERS: PCP Nurse Practitioner Family; Visit Provider Nurse Practitioner Family
DX: E11.65 Type 2 diabetes mellitus with hyperglycemia (principal)
CPT/HCPCS: 36415; 80053; 80061; 82306; 83036; 83525; 83540; 84436; 84443; 84481; 85025